=== PATIENT | female | born 1945 | race African-American/Black ===

== ENCOUNTER 2019-07-13 09:40 | Outpatient (CLI) | payer MEDICARE, SELFPAY ==
--- NOTE | ~2019-07-13 | MM_ITS ---
EXAMINATION: MM screening [facility] BI w juliana HISTORY: Screening mammogram TECHNIQUE: Craniocaudal and mediolateral oblique 3-D tomosynthesis images were obtained and synthetic 2-D images were generated. CAD analysis was submitted and interpreted. COMPARISON: 06/04/2018, 05/28/2017, 03/22/2016, 02/17/2015 BREAST PARENCHYMAL COMPOSITION: There are scattered areas of fibroglandular density. FINDINGS: Again noted is an unchanged asymmetry in the posterior third of the inner right breast on t he craniocaudal view, consistent with a benign finding. There is no evidence of suspicious mass, calc ification, or architectural distortion to suggest malignancy in either breast. There has been no susp icious interval change. IMPRESSION: 1. No mammographic evidence of malignancy. 2. Recommend routine screening mammography in one year. BI-RADS Category 2: Benign finding(s). Reviewed, dictated and finalized at location A. [employer]
== END 2019-07-13 09:41 | disposition home or self-care (01) ==
LOC: ANHIMG 09:46
PROVIDERS: PCP Internal Medicine; Visit Provider Obstetrics & Gynecology
DX: Z12.31 Encounter for screening mammogram for malignant neoplasm of breast (principal)
CPT/HCPCS: 77063; 77067

== ENCOUNTER 2019-10-16 12:40 | Outpatient (CLI) | payer MEDICARE, SELFPAY ==
--- NOTE | ~2019-10-16 | CT_ITS ---
EXAMINATION: CT lung screening DATE: 10/16/2019 13:06 INDICATION: Personal history of tobacco dependence, prior smoker with 100 to pack year history TECHNIQUE: Computed tomography (CT) of the chest was performed without intravenous contrast. The dose -length product (DLP) was 79.47 mGy-cm. Automated exposure control and iterative reconstruction techn People and [employer] were employed. COMPARISON: 10/27/2018 FINDINGS: A stable 7 mm nodule is present in the left lower lobe. There is severe emphysema. There is chronic collapse in the medial aspect of the right middle lobe. Mild dependent atelectasis is noted. Calcified right hilar lymph nodes are consistent with old granulomatous disease. There is no pleural effusion or pneumothorax. No pathologically enlarged thoracic lymph nodes are identified. The heart size is normal. The gallbladder is surgically absent. Punctate calcifications in otherwise normal eve earing liver and spleen likely represent healed granulomatous disease. There is mild thoracic spondyl osis. IMPRESSION: 1. Lung-RADS category 2: Benign appearance or behavior. Continue annual screening with noncontrast lo w-dose chest CT in 12 months. Reviewed, dictated and finalized at location A. IMPRESSION: 1. Lung-RADS category 2: Benign appearance or behavior. Continue annual screeni ng with noncontrast low-dose chest CT in 12 months.
== END 2019-10-16 12:41 | disposition home or self-care (01) ==
PROVIDERS: Visit Provider Nurse Practitioner Family
DX: Z12.2 Encounter for screening for malignant neoplasm of respiratory organs (principal); Z87.891 Personal history of nicotine dependence
CPT/HCPCS: G0297

== ENCOUNTER 2019-10-28 13:14 | Outpatient (CLI) | payer MEDICARE, SELFPAY ==
[2019-10-28 13:30] VITALS: O2SAT 87
[2019-10-28 13:32] VITALS: PULSE 88; O2SAT 93
[2019-10-28 13:35] VITALS: O2SAT 87
[2019-10-28 13:38] VITALS: PULSE 99; O2SAT 92
[2019-10-28 13:45] VITALS: PULSE 84; O2SAT 95
--- NOTE | 2019-10-28 15:37 | HOMEO2EVAL ---
Home Oxygen Evaluation RC: Home Oxygen (O2) Evaluation Start: 10/28/19 15:33 Freq: Status: Active Protocol: RPE Activity Type Activity Date Activity User E-Sign Co-Sign Detail Recorded Client Recorded Date Recorded By Document 10/28/19 13:30 MEHDI [id number] 10/28/19 15:37 MEHDI Document 10/28/19 13:32 MEHDI [id number] 10/28/19 15:37 MEHDI Document 10/28/19 13:35 MEHDI [id number] 10/28/19 15:37 MEHDI Document 10/28/19 13:38 MEHDI [email or web address] 10/28/19 15:37 MEHDI Document 10/28/19 13:45 MEHDI [email or web address] 10/28/19 15:37 MEHDI 10/28/19 10/28/19 10/28/19 13:30 13:32 13:35 Home O2 Evaluation Test Phase Resting Resting Exercise Oxygen Delivery Room Air Nasal Cannula Nasal Cannula Oxygen Flow Rate (L/min) 1 1 Pulse Oximetry (90-100 %) 87 L 93 87 L Pulse Rate (60-100 beats/min) 88 Activity Tolerance Rating of Perceived Dyspnea (PD) Ambulation Distance (feet) Home Oxygen Evaluation Comments Treatment Charges O2 Evaluation 10/28/19 10/28/19 13:38 13:45 Home O2 Evaluation Test Phase Exercise Resting Oxygen Delivery Nasal Cannula Nasal Cannula Oxygen Flow Rate (L/min) 2 1 Pulse Oximetry (90-100 %) 92 95 Pulse Rate (60-100 beats/min) 99 84 Activity Tolerance Good Rating of Perceived Dyspnea (PD) +3 Moderate Difficulty, But Can Continue Ambulation Distance (feet) 150 Home Oxygen Evaluation Comments PT WORE FACE SHIELD, COULD TOLERATE FACE MASK Treatment Charges
--- NOTE | 2019-10-28 15:37 | PCRCNOTE ---
HOME O3 EVAL FAXED TO DR RODRIGUEZ OFFICE STAFF [id number]
== END 2019-10-28 13:15 | disposition home or self-care (01) ==
PROVIDERS: Visit Provider Internal Medicine Critical Care Medicine
DX: R09.02 Hypoxemia (principal)
CPT/HCPCS: 94618

== ENCOUNTER 2020-03-12 18:08 | Inpatient (IN) | payer MEDICARE, SELFPAY ==
[2020-03-12] VITALS (17 sets, daily range): BP systolic 99–151; BP diastolic 65–77; PULSE 91–110; RESP 14–30; TEMP 36.3–37; O2SAT 92–100; BMI 26.5
--- NOTE | ~2020-03-12 | XR_ITS ---
XR chest 1V portable DATE: 03/12/2020 19:11 INDICATION: Shortness of breath. Hypertension. Respiratory failure. TECHNIQUE: Portable AP chest on 03/12/2020 1909 hours COMPARISON: 10/16/2019 CT lung screening 10/31/2018 2 view chest FINDINGS: Bilateral hyperinflation and flattening of the diaphragms consistent with COPD. Chronic dis coid atelectasis or scarring at the right lung base. No pulmonary consolidation, pleural effusion, pu lmonary vascular congestion or pneumothorax is detected. Heart size appears within normal limits. Is aortic calcification. There is diffuse osteopenia. IMPRESSION: COPD Discoid atelectasis or scarring at the right lung base Reviewed, dictated and finalized at location A.
--- NOTE | 2020-03-12 18:22 | ECG_ITS ---
Measurements Intervals [place] Rate: 106 P: 62 VA: 143 QRS: 46 QRSD: 84 T: 62 QT: 314 QTc: 419 Interpretive Statements SINUS TACHYCARDIA BASELINE ARTIFACT- I, II, III, AVR, AVL, AVF, V1-V6 ABNORMAL ECG Electronically Signed On 03-13-2020 7:56:51 CDT by Drake Brewster D.O.
[2020-03-12] MEDS: methylPREDNISolone SOD SUCC 125 MG VIAL IV PUSH (18:36)
[2020-03-12 18:40] LABS: Basophils Absolute Auto 0.1 K/mm3 (0.0-0.1); Basophils Percent Auto 0.3 % (0.2-1.2); Eosinophils Absolute Auto 0.1 K/mm3 (0-0.3); Eosinophils Percent Auto 0.6 % (0-4.4); Hematocrit 41.4 % (37.0-47.0); Hemoglobin 13.3 g/dL (12.0-15.0); Immature Granulocyte Absolute 0.08 K/mm3 (0.00-0.031); Immature Granulocyte Percent A 0.3 % (0-0.5); Lymphocytes Absolute Auto 7.06 K/mm3 (0.9-3.2); Lymphocytes Percent Auto 30.1 % (18.3-44.2); Mean Corpuscular HGB Conc 32.1 g/dl (32-36); Mean Corpuscular Volume 90.2 fl (80-100); Monocytes Absolute Auto 1.2 K/mm3 (0.1-0.6); Neutrophils Percent Auto 63.7 % (45.5-73.1); Platelet Count Result 373 k/mm3 (150-375); Red Blood Count 4.59 M/mm3 (4.2-5.4); Red Cell Distribution Width 15.2 % (11.5-14.5); White Blood Count 23.5 K/mm3 (4.5-10.0)
[2020-03-12] MEDS: ALBUTEROL SULFATE NEB 2.5 MG/0.5 ML INH 15 MG INHALATION (18:42)
[2020-03-12] MEDS: IPRATROPIUM BR 0.02% INH SOLN 0.5 MG/2.5 ML VIAL 1.5 MG INHALATION (18:43)
[2020-03-12 18:45] LABS: Alveolar/Arterial O2 Gradient 61.9 mmHg; Base Excess ABG 3.8 mEq/l (+/-2.0); Device NASAL CANNULA; Fractional Inspired Oxygen 28 %; HCO3 ABG 30.7 mEq/l (22.0-26.0); Modified Allen's Test Pass; Oxygen Content ABG 17.3 %vol (16.0-22.0); Oxygen Saturation ABG 93.4 % (95.0-100.0); Oxyhemoglobin 90.5 % THb (90.0-100.0); PCO2 ABG 56.3 mmHg (35.0-45.0); PO2 ABG 71.3 mmHg (80.0-100.0); PO2 FiO2 Ratio Arterial Blood 2.55 %; Site Drawn LEFT RADIAL; Total Hemoglobin 13.6 g/dL (12.0-18.0); pH ABG 7.355 (7.350-7.450)
--- NOTE | 2020-03-12 18:48 | PC.NURSE ---
patient here by EMS with increased dyspnea over the last few days. states she had sudden onset severe shortness of breath tonight while cooking dinner. called 911. see triage notes. SL inserted by EMS. labs drawn and sent. patient on laboratory monitor. placed on 2L NC for ABG's. respiratory at bedside now for 1 hour treatment. meds given as ordered. patient and updated on current treatment plan and expected wait time. side rails up x 2. call light in reach.
[2020-03-12 18:51] LABS: Anion Gap 8 mmol/L (8-16); Blood Urea Nitrogen 12 mg/dL (7-17); Calcium 9.6 mg/dL (8.4-10.2); Carbon Dioxide 37 mmol/L (22-30); Chloride 100 mmol/L (98-107); Estimated CRCL calculation 50 ml/min; Estimated Glomerular Filt Rate > 60; Glucose 153 mg/dL (65-105); Potassium 3.8 mmol/L (3.4-5.0); Sodium 145 mmol/L (137-145)
--- NOTE | 2020-03-12 19:44 | ED.SOB ---
HPI - SOB/Dyspnea General Chief Complaint: Shortness of Breath/Dyspnea Stated Complaint: sob x45 mins Time Seen by Provider: 03/12/20 18:15 History of Present Illness HPI Narrative: Patient is a 74-year-old female who presents ER with shortness of breath. Patient has history of COPD and is oxygen dependent on 2 L nasal cannula. Patient was cooking dinner when she developed sudden onset shortness of breath. She reports this is typical of her COPD exacerbations and that cooking is a trigger. Related Data Home Medications Medication Instructions Recorded Confirmed amlodipine 5 mg tablet 5 mg PO DAILY 05/05/19 10/13/19 atorvastatin 40 mg tablet 40 mg PO DAILY 05/05/19 10/13/19 nitroglycerin 0.4 mg sublingual 0.4 mg SUBLINGUAL Q5M PRN 05/05/19 10/13/19 tablet aspirin 81 mg tablet,delayed 81 mg PO DAILY 05/06/19 10/13/19 release calcium carbonate 600 mg calcium 600 mg PO DAILY 05/06/19 10/13/19 (1,500 mg) tablet levothyroxine 50 mcg tablet 50 mcg PO DAILY 05/06/19 10/13/19 ipratropium 0.5 mg-albuterol 3 mg 3 ml INHALATION Q6H PRN 10/13/19 10/13/19 (2.5 mg base)/3 mL nebulization soln Allergies Allergy/AdvReac Type Severity Reaction Status Date / Time No Known Allergies Allergy Verified 03/12/20 18:45 Review of Systems Review of Systems: All systems reviewed & are unremarkable except as noted in HPI and below Constitutional: Constitutional: Denies chills, Denies fever(s) and Denies weakness ENT: Denies nasal congestion and Denies sore throat Cardiovascular: Cardiovascular: Denies chest pain and Denies radiating jaw, neck or arm pain Respiratory: Respiratory: Denies cough, Reports dyspnea and Reports wheezing Gastrointestinal: Gastrointestinal: Denies abdominal pain, Denies nausea and Denies vomiting [facility] Past Medical History Medical History (Updated 03/12/20 @ 21:13 by Wale Chambers MD) Chronic hypoxemic respiratory failure Elevated lipids H/O vaginal delivery History of heart attack History of tobacco use Hypertension Shortness of Breath Thyroid disease Surgical History Surgical History History of cholecystectomy History of total abdominal hysterectomy and bilateral salpingo-oophorectomy History of tubal ligation Family History Family History Mother Hypertension Sibling Family history of lung cancer Family history of malignant neoplasm of kidney Social History Social History Smoking status: Former smoker Smoking end date: 05/27/18 Alcohol intake: never Exam Narrative: Exam Narrative: GENERAL: Well-appearing, well-nourished, and in no acute distress. HEAD: Normocephalic, atraumatic. ENT: Mucous membranes moist. CHEST: Diminished breath sounds throughout with increased work of breathing and faint scattered wheezing. Very poor air movement. HEART: Tachycardic regular. Normal peripheral pulses. ABDOMEN: Soft, nontender, nondistended. EXTREMITIES: Normal range of motion. No edema. SKIN: Warm, dry, no rash. NEURO: Alert and oriented x3. Course Course Emergency Course: Still with poor air movement despite hour-long nebulizer treatment. Will start a second hour-long nebulizer treatment admit to the hospitalist service. We will place an IV new. IV steroids given. Vital Signs Vital signs: Vital Signs Temperature 98.6 F 03/12/20 18:12 Pulse Rate 100 03/12/20 18:12 Respiratory Rate 30 H 03/12/20 18:12 Blood Pressure 151/65 H 03/12/20 18:12 Pulse Oximetry 99 03/12/20 18:12 Temperature 98.3 F 03/12/20 20:24 Pulse Rate 105 H 03/12/20 20:45 Respiratory Rate 24 H 03/12/20 20:45 Blood Pressure 127/71 03/12/20 20:24 Pulse Oximetry 100 03/12/20 20:24 MDM - SOB/Dyspnea Lab Data Result diagrams: 03/12/20 18:29 03/12/20 18:29 Labs
[2020-03-12] MEDS: ALBUTEROL SULFATE NEB 2.5 MG/0.5 ML INH 15 MG (19:50)
--- NOTE | 2020-03-12 21:02 | ADMGEN ---
This patient, Laxmi Colon, was admitted to IMU Room 207-01. Patient/family oriented to hospital policies and general routines including ID bracelet, bed and alarms, visiting hours, pain management, procedures, bathroom and other care routines, personal items, smoking policy, room service/diet, and visiting hours. Information on how to activate the Rapid Response Team has been discussed. Patient/Family are encouraged to report perceived risks to care and to ask questions if they do not understand what they are told or what they should do.
--- NOTE | 2020-03-12 21:05 | PM.IMHP ---
H&P: HPI History of Present Illness Date/Time: 03/12/20 21:05 Chief complaint: copd exacerbation Narrative: This is a 74 year old female with known COPD on chronic 2L of home oxygen who presented to the hospital with increased shortness of breath and wheezing over the past few days. Tonight while she was cooking dinner she developed severe shortness of breath. She reports this is typical of her COPD exacerbations and that cooking is a trigger. She denies any fevers, chills, coughing, chest pain, headache, vomiting, abdominal pain, dysuria, hematuria, rectal bleeding, or LE swelling. She does report nausea and diarrhea but states that she has chronic diarrhea. Routine labs tonight demonstrated a leukocytosis of 23,500. CXR demonstrated COPD but no significant infiltrate or consolidation. She has been treated with back to back hour long beta agonist nebs and steroid therapy. No other complaints at this time. Review of Systems Review of Systems: All systems reviewed & are unremarkable except as noted in HPI and below PMFSH Past Medical History Medical History Chronic hypoxemic respiratory failure Elevated lipids H/O vaginal delivery History of heart attack History of tobacco use Hypertension Shortness of Breath Thyroid disease Surgical History Surgical History History of cholecystectomy History of total abdominal hysterectomy and bilateral salpingo-oophorectomy History of tubal ligation Family History Family History Mother Hypertension Sibling Family history of lung cancer Family history of malignant neoplasm of kidney Social History Social History Smoking status: Former smoker Smoking end date: 10/27/18 Alcohol intake: never Substance use: never Gender identity (if verbalized by the patient): Female Spiritual care concerns: No Meds Home Medications and Allergies Home Medications Medication Instructions Recorded Confirmed Type amlodipine 5 mg tablet 5 mg PO DAILY 05/05/19 03/12/20 History atorvastatin 40 mg tablet 40 mg PO DAILY 05/05/19 03/12/20 History nitroglycerin 0.4 mg sublingual 0.4 mg SUBLINGUAL Q5M PRN 05/05/19 03/12/20 History tablet aspirin 81 mg tablet,delayed 81 mg PO DAILY 05/06/19 03/12/20 History release calcium carbonate 600 mg calcium 600 mg PO DAILY 05/06/19 03/12/20 History (1,500 mg) tablet levothyroxine 50 mcg tablet 50 mcg PO DAILY 05/06/19 03/12/20 History ipratropium 0.5 mg-albuterol 3 mg 3 ml INHALATION Q6H PRN 10/13/19 03/12/20 History (2.5 mg base)/3 mL nebulization soln budesonide-formoterol HFA 160 2 puff INHALATION Q12H #10.2 gm 12/01/19 03/12/20 Rx mcg-4.5 mcg/actuation aerosol inhaler tiotropium bromide 2.5 2 puff INHALATION DAILY #4 gm 12/01/19 03/12/20 Rx mcg/actuation mist for inhalation dextromethorphan-guaifenesin 10 ml PO Q4H PRN #237 ml 03/15/20 Rx prednisone 40 mg PO DAILY@0800 #10 tablet 03/15/20 Rx Allergies Allergy/AdvReac Type Severity Reaction Status Date / Time No Known Allergies Allergy Verified 03/14/20 11:29 Vital Signs Vital Signs - 24 hr 03/12/20 18:12 03/12/20 18:19 03/12/20 18:20 Temperature 37.0 C Pulse Rate 100 106 H Respiratory Rate 30 H 21 H Blood Pressure 151/65 H Pulse Oximetry 99 100 99 03/12/20 18:30 03/12/20 18:31 03/12/20 18:46 Temperature Pulse Rate 108 H 110 H 102 H Respiratory Rate 28 H 27 H 22 H Blood Pressure 147/77 H Pulse Oximetry 98 100 03/12/20 18:47 03/12/20 19:15 03/12/20 19:37 Temperature Pulse Rate 102 H 100 102 H Respiratory Rate 22 H 22 H 24 H Blood Pressure 132/69 Pulse Oximetry 100 03/12/20 19:50 03/12/20 20:24 03/12/20 20:45 Temperature 36.8 C Pulse Rate 101 H 100 105 H Respiratory Rate 22 H 14
[2020-03-12 22:04] LABS: Lactic Acid Reflex 2.4 mmol/L (0.7-2.1)
[2020-03-12 22:18] LABS: Hemoglobin A1C 5.9 % (<5.7)
[2020-03-13] VITALS (20 sets, daily range): BP systolic 87–137; BP diastolic 45–62; PULSE 77–97; RESP 18–30; TEMP 36–36.8; O2SAT 95–100
[2020-03-13] MEDS: methylPREDNISolone SOD SUCC 125 MG VIAL 60 MG IV PUSH ×4 (00:46→17:55)
[2020-03-13 00:51] LABS: Reflex Lactic Acid Yes or No Add Lactic
[2020-03-13 02:03] LABS: Lactic Acid Reflex 2.7 mmol/L (0.7-2.1)
[2020-03-13] MEDS: ALBUTEROL SULFATE NEB 2.5 MG/0.5 ML INH 5 MG INHALATION ×4 (02:08→20:49)
[2020-03-13] MEDS: LEVOTHYROXINE SODIUM 50 MCG TABLET PO (05:31)
[2020-03-13 05:36] LABS: Basophils Percent Auto 0.1 % (0.2-1.2); Hematocrit 36.7 % (37.0-47.0); Hemoglobin 11.6 g/dL (12.0-15.0); Immature Granulocyte Absolute 0.07 K/mm3 (0.00-0.031); Immature Granulocyte Percent A 0.5 % (0-0.5); Lymphocytes Absolute Auto 0.58 K/mm3 (0.9-3.2); Lymphocytes Percent Auto 3.8 % (18.3-44.2); Mean Corpuscular HGB Conc 31.6 g/dl (32-36); Mean Corpuscular Hemoglobin 28.6 pg (26-34); Mean Corpuscular Volume 90.4 fl (80-100); Mean Platelet Volume 11.2 fl (7.4-10.4); Monocytes Absolute Auto 0.1 K/mm3 (0.1-0.6); Monocytes Percent Auto 0.9 % (2.6-8.5); Neutrophils Absolute Auto 14.4 K/mm3 (1.3-6.7); Neutrophils Percent Auto 94.7 % (45.5-73.1); Platelet Count Result 317 k/mm3 (150-375); Red Blood Count 4.06 M/mm3 (4.2-5.4); Red Cell Distribution Width 15.1 % (11.5-14.5); White Blood Count 15.2 K/mm3 (4.5-10.0)
[2020-03-13 05:47] LABS: Anion Gap 10 mmol/L (8-16); Blood Urea Nitrogen 15 mg/dL (7-17); Carbon Dioxide 29 mmol/L (22-30); Chloride 103 mmol/L (98-107); Estimated CRCL calculation 42 ml/min; Estimated Glomerular Filt Rate > 60; Glucose 211 mg/dL (65-105); Potassium 3.7 mmol/L (3.4-5.0); Sodium 142 mmol/L (137-145)
[2020-03-13 07:02] LABS: Influenza Control Positive
[2020-03-13] MEDS: ATORVASTATIN 40 MG TABLET PO (08:19)
[2020-03-13] MEDS: amLODIPine BESYLATE 5 MG TABLET PO (08:19)
[2020-03-13] MEDS: CALCIUM CARBONATE (OSCAL) 500 MG TABLET PO (08:20)
[2020-03-13] MEDS: ASPIRIN 81 MG ENTERIC TABLET PO (08:37)
[2020-03-13] MEDS: ALPRAZolam (*CRX) 0.25 MG TABLET PO ×2 (13:58→21:05)
--- NOTE | 2020-03-13 16:25 | PM.IMPN ---
Progress Note: A&P Assessment and Plan (1) Acute and chronic respiratory failure: Qualifiers: Respiratory failure complication: hypoxia Qualified Code(s): J96.21 - Acute and chronic respiratory failure with hypoxia Code(s): J96.20 - Acute and chronic respiratory failure, unspecified whether with hypoxia or hypercapnia Status: Acute Assessment and Plan: Admit to IMU, telemetry, continuous pulse oximetry, Oxygen supplementation as needed to maintain pulse oximetry >92%, Continue treatment for COPD 03/13/20 16:25 patient is 74 year female with history of chronic respiratory failure secondary to COPD on home oxygen on 2 L patient states last 2 days her symptoms were getting progressively worse shortness of breath however today while cooking her symptom got worse and difficulty breathing EMS was called patient was brought to the emergency department further evaluation patient is being treated for exacerbation of COPD it seems her symptoms were triggered by fumes and smoke from cooking, patient being treated with Solu-Medrol updraft and antibiotics will add Pulmicort, will continue to monitor patient the PT OT evaluate the patient and further recommendation to follow, patient states feeling much better compared to when she arrived denies any chest pain shortness of breath palpitation fever or chills, there is a concern patient may have sepsis as patient tachycardia, tachypnea, leukocytosis, lactic acidosis, however chest x-ray does not show any infiltrates, continue azithromycin will follow-up on blood culture (2) COPD exacerbation: Code(s): J44.1 - Chronic obstructive pulmonary disease with (acute) exacerbation Status: Acute Assessment and Plan: COPD exacerbation of greater severity. We will cover with Azithromycin IV given that she is also septic and has significant leukocytosis. Continue bronchodilators and steroid therapy. (3) Leukocytosis: Qualifiers: Leukocytosis type: unspecified Qualified Code(s): D72.829 - Elevated white blood cell count, unspecified Code(s): D72.829 - Elevated white blood cell count, unspecified Status: Acute Assessment and Plan: The patient has not been on steroids recently. This may be due to COPD exacerbation vs. developing pneumonia. (4) Sepsis: Qualifiers: Sepsis type: sepsis due to unspecified organism Sepsis acute organ dysfunction status: unspecified Qualified Code(s): A41.9 - Sepsis, unspecified organism Code(s): A41.9 - Sepsis, unspecified organism Status: Acute Assessment and Plan: w/ tachycardia, leukocytosis. Source of sepsis may be pulmonary. Check Lactic acid w/ reflex that hasn't been done yet. Check blood and sputum cultures now. (5) Hypertension: Qualifiers: Hypertension type: unspecified Qualified Code(s): I10 - Essential (primary) hypertension Code(s): I10 - Essential (primary) hypertension Status: Acute Assessment and Plan: stable. Monitor blood pressure. Resume home antihypertensives in am. (6) Elevated lipids: Code(s): E78.5 - Hyperlipidemia, unspecified Status: Acute Assessment and Plan: Continue statin therapy. (7) Thyroid disease: Code(s): E07.9 - Disorder of thyroid, unspecified Status: Acute Assessment and Plan: Continue levothyroxine PO. (8) Abnormal glucose: Code(s): R73.09 - Other abnormal glucose Status: Acute Assessment and Plan: r/o diabetes mellitus - check HgbA1c in am. Additional Plan Date of service was 03/12/2020 at 8 pm. Subjective Date/time seen: 03/13/20 16:25 patient is 74 year female with history of chronic respiratory failure secondary to COPD on home oxygen on 2 L patient states last 2 days her symptoms were getting progressively worse shortness of breath however today while cooking her symptom got worse and difficu
--- NOTE | 2020-03-13 18:10 | PC.NURSE ---
Addendum entered by Leydi Bartlett RN 03/13/20 18:14: Pt transferred at 1720 Original Note: This patient, Laxmi Colon, was transferred to [[id number] ] on 03/13/20 at 1810. Personal belongings sent with patient. Report given to [Wilfrido ]. Appropriate documentation sent with patient.
[2020-03-13] MEDS: BUDESONIDE RESPULE NEB 0.5 MG/2 ML AMP INHALATION (20:49)
[2020-03-14] VITALS (18 sets, daily range): BP systolic 100–113; BP diastolic 52–59; PULSE 70–89; RESP 20–24; TEMP 36.2–36.8; O2SAT 95–99
[2020-03-14] MEDS: methylPREDNISolone SOD SUCC 125 MG VIAL 60 MG IV PUSH ×3 (00:07→12:03)
[2020-03-14] MEDS: ALBUTEROL SULFATE NEB 2.5 MG/0.5 ML INH 5 MG INHALATION ×2 (03:14→08:27)
[2020-03-14] MEDS: LEVOTHYROXINE SODIUM 50 MCG TABLET PO (05:44)
[2020-03-14 06:33] LABS: Hematocrit 37.3 % (37.0-47.0); Hemoglobin 12.2 g/dL (12.0-15.0); Mean Corpuscular HGB Conc 32.7 g/dl (32-36); Mean Corpuscular Hemoglobin 29.6 pg (26-34); Mean Corpuscular Volume 90.5 fl (80-100); Mean Platelet Volume 11.3 fl (7.4-10.4); Platelet Count Result 345 k/mm3 (150-375); Red Blood Count 4.12 M/mm3 (4.2-5.4); Red Cell Distribution Width 15.8 % (11.5-14.5); White Blood Count 30.9 K/mm3 (4.5-10.0)
[2020-03-14 06:47] LABS: Anion Gap 6 mmol/L (8-16); Blood Urea Nitrogen 22 mg/dL (7-17); Calcium 9.3 mg/dL (8.4-10.2); Carbon Dioxide 33 mmol/L (22-30); Chloride 102 mmol/L (98-107); Estimated CRCL calculation 42 ml/min; Estimated Glomerular Filt Rate > 60; Glucose 200 mg/dL (65-105); Potassium 4.4 mmol/L (3.4-5.0); Sodium 141 mmol/L (137-145)
[2020-03-14] MEDS: BUDESONIDE RESPULE NEB 0.5 MG/2 ML AMP INHALATION (08:27)
[2020-03-14] MEDS: amLODIPine BESYLATE 5 MG TABLET PO (09:00)
[2020-03-14] MEDS: CALCIUM CARBONATE (OSCAL) 500 MG TABLET PO (09:00)
[2020-03-14] MEDS: ATORVASTATIN 40 MG TABLET PO (09:00)
[2020-03-14] MEDS: ASPIRIN 81 MG ENTERIC TABLET PO (09:00)
--- NOTE | 2020-03-14 14:05 | PM.CNPUL ---
Assessment and Plan Assessment and plan (1) COPD exacerbation: Code(s): J44.1 - Chronic obstructive pulmonary disease with (acute) exacerbation Status: Acute Assessment and Plan: Feeling better since admission but still short of breath with minimal exertion. - switch to prednisone 40 mg daily for 4 more days - resume Symbicort and Spiriva upon discharge - switch Azithromycin to PO - PT/OT - will order outpatient pulmonary rehab. - can discharge in 1-2 days. History of Present Illness History of Present Illness Consult date: 03/14/20 Chief complaint: copd exacerbation Narrative: 74 y/o female with history of severe COPD with Asthma component presents with an acute COPD exacerbation after being exposed to cooking fumes. This is a common trigger for her. She used her Albuterol Nebulizer twice without improvement and then called EMS. She has not required NIV. She's on home O2 2 liters and uses Symbicort and Spiriva faithfully but still has difficulty doing her daily activities. She denies infectious symptoms and does not have a productive cough Review of Systems Review of Systems: All systems reviewed & are unremarkable except as noted in HPI and below PMFSH Past Medical History Medical History (Updated 03/12/20 @ 21:25 by Raj Solis MD) Chronic hypoxemic respiratory failure Elevated lipids H/O vaginal delivery History of heart attack History of tobacco use Hypertension Shortness of Breath Thyroid disease Surgical History Surgical History History of cholecystectomy History of total abdominal hysterectomy and bilateral salpingo-oophorectomy History of tubal ligation Family History Family History Mother Hypertension Sibling Family history of lung cancer Family history of malignant neoplasm of kidney Social History Social History Smoking status: Former smoker Smoking end date: 10/27/18 Alcohol intake: never Substance use: never Gender identity (if verbalized by the patient): Female Spiritual care concerns: No Meds Home Medications and Allergies Home Medications Medication Instructions Recorded Confirmed Type amlodipine 5 mg tablet 5 mg PO DAILY 05/05/19 03/12/20 History atorvastatin 40 mg tablet 40 mg PO DAILY 05/05/19 03/12/20 History nitroglycerin 0.4 mg sublingual 0.4 mg SUBLINGUAL Q5M PRN 05/05/19 03/12/20 History tablet aspirin 81 mg tablet,delayed 81 mg PO DAILY 05/06/19 03/12/20 History release calcium carbonate 600 mg calcium 600 mg PO DAILY 05/06/19 03/12/20 History (1,500 mg) tablet levothyroxine 50 mcg tablet 50 mcg PO DAILY 05/06/19 03/12/20 History ipratropium 0.5 mg-albuterol 3 mg 3 ml INHALATION Q6H PRN 10/13/19 03/12/20 History (2.5 mg base)/3 mL nebulization soln budesonide-formoterol HFA 160 2 puff INHALATION Q12H #10.2 gm 12/01/19 03/12/20 Rx mcg-4.5 mcg/actuation aerosol inhaler tiotropium bromide 2.5 2 puff INHALATION DAILY #4 gm 12/01/19 03/12/20 Rx mcg/actuation mist for inhalation Allergies Allergy/AdvReac Type Severity Reaction Status Date / Time No Known Allergies Allergy Verified 03/14/20 11:29 Vital Signs Vital Signs - 24 hr 03/13/20 16:00 03/13/20 18:00 03/13/20 20:00 Temperature 36.3 C L 36.6 C 36.3 C L Pulse Rate 88 85 83 Respiratory Rate 24 H 22 H 20 Blood Pressure 137/62 131/53 L 131/58 L Pulse Oximetry 97 97 97 03/13/20 20:49 03/13/20 20:59 03/14/20 00:00 Temperature 36.7 C Pulse Rate 86 85 74 Respiratory Rate 24 H 24 H 20 Blood Pressure 106/53 L Pulse Oximetry 95 98 03/14/20 03:14 03/14/20 03:22 03/14/20 04:00 Temperature 36.8 C Pulse Rate 70 76 78 Respiratory Rate 24 H 24 H 20 Blood Pressure 100/59 L Pulse Oximetry 99 03/14/20 08:00 03/14/20 08:29 03/14/20 08:42 Temperature Pulse Rate
[2020-03-14] MEDS: ALBUTEROL SULFATE NEB 2.5 MG/0.5 ML INH INHALATION ×2 (14:10→20:13)
[2020-03-14] MEDS: IPRATROPIUM BR 0.02% INH SOLN 0.5 MG/2.5 ML VIAL INHALATION ×2 (14:10→20:13)
--- NOTE | 2020-03-14 15:18 | PM.IMPN ---
Progress Note: A&P Assessment and Plan (1) Acute and chronic respiratory failure: Qualifiers: Respiratory failure complication: hypoxia Qualified Code(s): J96.21 - Acute and chronic respiratory failure with hypoxia Code(s): J96.20 - Acute and chronic respiratory failure, unspecified whether with hypoxia or hypercapnia Status: Acute Assessment and Plan: Admit to IMU, telemetry, continuous pulse oximetry, Oxygen supplementation as needed to maintain pulse oximetry >92%, Continue treatment for COPD 03/14/20 15:18 patient is 74 year female with history of chronic respiratory failure secondary to COPD on home oxygen on 2 L patient states last 2 days her symptoms were getting progressively worse shortness of breath however today while cooking her symptom got worse and difficulty breathing EMS was called patient was brought to the emergency department further evaluation patient is being treated for exacerbation of COPD it seems her symptoms were triggered by fumes and smoke from cooking, patient being treated with Solu-Medrol updraft and antibiotics will add Pulmicort, will continue to monitor patient the PT OT evaluate the patient and further recommendation to follow, patient states feeling much better compared to when she arrived denies any chest pain shortness of breath palpitation fever or chills, there is a concern patient may have sepsis as patient tachycardia, tachypnea, leukocytosis, lactic acidosis, however chest x-ray does not show any infiltrates, continue azithromycin will follow-up on blood culture 03/14 Today patient states patient little better compared to yesterday still short of breath denies any fever or chills patient was seen [facility] and taper Solu-Medrol to oral prednisone 40 mg q.day and switched azithromycin to p.o. blood culture so far no growth, will continue present management will have a PT OT evaluate the patient and further recommendation to follow. (2) COPD exacerbation: Code(s): J44.1 - Chronic obstructive pulmonary disease with (acute) exacerbation Status: Acute Assessment and Plan: COPD exacerbation of greater severity. We will cover with Azithromycin IV given that she is also septic and has significant leukocytosis. Continue bronchodilators and steroid therapy. (3) Leukocytosis: Qualifiers: Leukocytosis type: unspecified Qualified Code(s): D72.829 - Elevated white blood cell count, unspecified Code(s): D72.829 - Elevated white blood cell count, unspecified Status: Acute Assessment and Plan: The patient has not been on steroids recently. This may be due to COPD exacerbation vs. developing pneumonia. (4) Sepsis: Qualifiers: Sepsis type: sepsis due to unspecified organism Sepsis acute organ dysfunction status: unspecified Qualified Code(s): A41.9 - Sepsis, unspecified organism Code(s): A41.9 - Sepsis, unspecified organism Status: Acute Assessment and Plan: w/ tachycardia, leukocytosis. Source of sepsis may be pulmonary. Check Lactic acid w/ reflex that hasn't been done yet. Check blood and sputum cultures now. (5) Hypertension: Qualifiers: Hypertension type: unspecified Qualified Code(s): I10 - Essential (primary) hypertension Code(s): I10 - Essential (primary) hypertension Status: Acute Assessment and Plan: stable. Monitor blood pressure. Resume home antihypertensives in am. (6) Elevated lipids: Code(s): E78.5 - Hyperlipidemia, unspecified Status: Acute Assessment and Plan: Continue statin therapy. (7) Thyroid disease: Code(s): E07.9 - Disorder of thyroid, unspecified Status: Acute Assessment and Plan: Continue levothyroxine PO. (8) Abnormal glucose: Code(s): R73.09 - Other abnormal glucose Status: Acute Assessment and Plan: r/o diabetes mellitus - check HgbA1c in am. [place]
[2020-03-15] VITALS (10 sets, daily range): BP systolic 101–120; BP diastolic 56–59; PULSE 59–78; RESP 16–20; TEMP 36.4; O2SAT 97–98
[2020-03-15] MEDS: IPRATROPIUM BR 0.02% INH SOLN 0.5 MG/2.5 ML VIAL INHALATION ×2 (01:41→07:35)
[2020-03-15] MEDS: ALBUTEROL SULFATE NEB 2.5 MG/0.5 ML INH INHALATION ×2 (01:41→07:34)
[2020-03-15 06:04] LABS: Hematocrit 34.7 % (37.0-47.0); Hemoglobin 11.3 g/dL (12.0-15.0); Mean Corpuscular HGB Conc 32.6 g/dl (32-36); Mean Platelet Volume 11.4 fl (7.4-10.4); Platelet Count Result 331 k/mm3 (150-375); Red Cell Distribution Width 15.7 % (11.5-14.5); White Blood Count 25.9 K/mm3 (4.5-10.0)
[2020-03-15] MEDS: LEVOTHYROXINE SODIUM 50 MCG TABLET PO (06:14)
[2020-03-15 06:20] LABS: Anion Gap 7 mmol/L (8-16); Blood Urea Nitrogen 25 mg/dL (7-17); Calcium 9.4 mg/dL (8.4-10.2); Carbon Dioxide 36 mmol/L (22-30); Chloride 102 mmol/L (98-107); Estimated CRCL calculation 43 ml/min; Estimated Glomerular Filt Rate > 60; Glucose 118 mg/dL (65-105); Potassium 4.6 mmol/L (3.4-5.0); Sodium 145 mmol/L (137-145)
[2020-03-15] MEDS: ATORVASTATIN 40 MG TABLET PO (07:50)
[2020-03-15] MEDS: CALCIUM CARBONATE (OSCAL) 500 MG TABLET PO (07:50)
[2020-03-15] MEDS: predniSONE 20 MG TABLET 40 MG PO (07:50)
[2020-03-15] MEDS: ASPIRIN 81 MG ENTERIC TABLET PO (07:50)
--- NOTE | 2020-03-15 10:09 | PM.PNPUL ---
Progress Note: A&P Assessment and Plan (1) COPD exacerbation: Code(s): J44.1 - Chronic obstructive pulmonary disease with (acute) exacerbation Status: Acute Assessment and Plan: - Can discharge home from pulmonary point of view - resume Symbicort 160/4.5 mcg 2 puffs bid via chamber device - resume Spiriva Respimat 2.5 mcg 2 puffs Qam - continue oral prednisone for 3-4 more days - continue home oxygen as previously prescribed - I've ordered outpatient pulmonary rehab for her - f/u with us in pulmonary clinic in 2-4 weeks - avoid exposure to second hand smoke and strong cooking fumes ( her son smokes at home) Time Spent With Patient Time with patient: 15 - 25 minutes Subjective Date/time seen: 03/15/20 10:09 Interval history: She is feeling better. Stable, vitals, breathing is better but still weak Review of Systems Review of Systems: All systems reviewed & are unremarkable except as noted in HPI and below Exam Const: General: cooperative, healthy appearing, comfortable, no acute distress, well developed, alert, awake and Physically active Nutritional Appearance: average body habitus Limitations: no limitations HENMT: Head: normal to inspection, normocephalic and atraumatic Eyes: General: appearance normal, both eyes and all related structures Neck: Neck: trachea midline and supple Resp: Auscultation: wheezes and diminished lung sounds Cardio: Jugular venous distension: no JVD Rate: regular rate Rhythm: regular rhythm Heart sounds: S1 normal heart sound present and S2 normal heart sound present GI: Inspection: normal to inspection Auscultation: normal bowel sounds Neuro: Cognition (Neuro): normal cognition Speech: normal speech Extrem: General: normal to inspection and no clubbing, cyanosis or edema Psych: Appearance: grossly normal and well kempt Mental Status: mental status grossly normal Objective Data Vital Signs Vital Signs: Vital Signs - 24 hr 03/14/20 12:00 03/14/20 14:00 03/14/20 14:12 Temperature 36.2 C L Pulse Rate 83 76 76 Respiratory Rate 20 20 Blood Pressure 104/52 L Pulse Oximetry 96 03/14/20 14:21 03/14/20 16:00 03/14/20 20:00 Temperature Pulse Rate 76 82 76 Respiratory Rate 20 Blood Pressure Pulse Oximetry 03/14/20 20:14 03/14/20 20:15 03/14/20 20:23 Temperature Pulse Rate 76 78 78 Respiratory Rate 20 20 Blood Pressure Pulse Oximetry 95 03/14/20 22:00 03/15/20 00:00 03/15/20 01:41 Temperature 36.7 C Pulse Rate 80 72 72 Respiratory Rate 20 20 Blood Pressure 101/55 L Pulse Oximetry 95 03/15/20 01:51 03/15/20 04:00 03/15/20 06:00 Temperature 36.4 C Pulse Rate 78 59 L 69 Respiratory Rate 20 20 Blood Pressure 101/56 L Pulse Oximetry 98 03/15/20 07:35 03/15/20 07:45 03/15/20 07:52 Temperature Pulse Rate 73 74 Respiratory Rate 16 16 Blood Pressure 120/59 L Pulse Oximetry 97 03/15/20 08:00 Temperature Pulse Rate 73 Respiratory Rate Blood Pressure Pulse Oximetry Intake/Output Intake/Output: Intake & Output 03/12/20 03/13/20 03/14/20 03/15/20 23:59 23:59 23:59 23:59 Intake Total 250 1630 1630 560 Output Total 1950 Balance 250 -320 1630 560 Meds/Results Medications: Active Medications Generic Name Dose Route Start Last Admin Trade Name Freq PRN Reason Stop Dose Admin Acetaminophen 650 mg 03/12/20 20:11 Acetaminophen 325 Mg Tablet PO Q4H PRN Mild Pain (1-3) or Fever Hydrocodone Bitart/Acetaminophen 1 tab 03/12/20 20:11 Hydrocodone/Acetaminophen (*Crx) 5-325 Mg Tablet PO Q4H PRN Pain Rated 4-6 Albuterol 2.5 mg 03/14/20 14:00 03/15/20 07:34 Albuterol Sulfate Neb 2.5 Mg/0.5 Ml Inh INHALATION 2.5 mg Q6HRT BARBARA Administration Alprazolam 0.25 mg 03/13/20 13:50 03/13/20 21:05 Alprazolam (*Crx) 0.25 Mg Tablet PO 0.25 mg Q8HR PRN Administration Anxiety Amlodipine Besylate 5 mg 03/13/20 09:00
--- NOTE | 2020-03-15 11:31 | PM.DS ---
DS: Admitting Diagnosis Admitting Diagnosis Admitting Diagnosis: copd exacerbation DS: Discharge Diagnosis Discharge Diagnosis (1) Acute and chronic respiratory failure: Qualifiers: Respiratory failure complication: hypoxia Qualified Code(s): J96.21 - Acute and chronic respiratory failure with hypoxia Code(s): J96.20 - Acute and chronic respiratory failure, unspecified whether with hypoxia or hypercapnia Status: Acute Assessment and Plan: Admit to IMU, telemetry, continuous pulse oximetry, Oxygen supplementation as needed to maintain pulse oximetry >92%, Continue treatment for COPD (2) COPD exacerbation: Code(s): J44.1 - Chronic obstructive pulmonary disease with (acute) exacerbation Status: Acute Assessment and Plan: COPD exacerbation of greater severity. We will cover with Azithromycin IV given that she is also septic and has significant leukocytosis. Continue bronchodilators and steroid therapy. (3) Leukocytosis: Qualifiers: Leukocytosis type: unspecified Qualified Code(s): D72.829 - Elevated white blood cell count, unspecified Code(s): D72.829 - Elevated white blood cell count, unspecified Status: Acute Assessment and Plan: The patient has not been on steroids recently. This may be due to COPD exacerbation vs. developing pneumonia. (4) Sepsis: Qualifiers: Sepsis acute organ dysfunction status: unspecified Sepsis type: sepsis due to unspecified organism Qualified Code(s): A41.9 - Sepsis, unspecified organism Code(s): A41.9 - Sepsis, unspecified organism Status: Acute Assessment and Plan: w/ tachycardia, leukocytosis. Source of sepsis may be pulmonary. Check Lactic acid w/ reflex that hasn't been done yet. Check blood and sputum cultures now. (5) Hypertension: Qualifiers: Hypertension type: unspecified Qualified Code(s): I10 - Essential (primary) hypertension Code(s): I10 - Essential (primary) hypertension Status: Acute Assessment and Plan: stable. Monitor blood pressure. Resume home antihypertensives in am. (6) Elevated lipids: Code(s): E78.5 - Hyperlipidemia, unspecified Status: Acute Assessment and Plan: Continue statin therapy. (7) Thyroid disease: Code(s): E07.9 - Disorder of thyroid, unspecified Status: Acute Assessment and Plan: Continue levothyroxine PO. (8) Abnormal glucose: Code(s): R73.09 - Other abnormal glucose Status: Acute Assessment and Plan: r/o diabetes mellitus - check HgbA1c in am. DS: Summary Hospital Course Reason for hospitalization: Chief complaint: copd exacerbation Narrative: This is a 74 year old female with known COPD on chronic 2L of home oxygen who presented to the hospital with increased shortness of breath and wheezing over the past few days. Tonight while she was cooking dinner she developed severe shortness of breath. She reports this is typical of her COPD exacerbations and that cooking is a trigger. She denies any fevers, chills, coughing, chest pain, headache, vomiting, abdominal pain, dysuria, hematuria, rectal bleeding, or LE swelling. She does report nausea and diarrhea but states that she has chronic diarrhea. Routine labs tonight demonstrated a leukocytosis of 23,500. CXR demonstrated COPD but no significant infiltrate or consolidation. She has been treated with back to back hour long beta agonist nebs and steroid therapy. No other complaints at this time. Hospital Course: patient is 74 year female with history of chronic respiratory failure secondary to COPD on home oxygen on 2 L patient states last 2 days her symptoms were getting progressively worse shortness of breath however today while cooking her symptom got worse and difficulty breathing EMS was called patient was brought to the emergency department further evaluation patient is
== END 2020-03-15 12:37 | disposition home or self-care (01) | DRG 871 ==
LOC: ANHED 20:31 → ANHIMU 20:50 → ANH3MEDSUR 03-13 17:34
PROVIDERS: Admitting Provider Family Medicine; Emergency Provider Emergency Medicine; PCP Internal Medicine; Visit Provider Family Medicine
DX: A41.9 Sepsis, unspecified organism (principal); J96.21 Acute and chronic respiratory failure with hypoxia; J44.1 Chronic obstructive pulmonary disease with (acute) exacerbation; E78.5 Hyperlipidemia, unspecified; D72.829 Elevated white blood cell count, unspecified; E07.9 Disorder of thyroid, unspecified; I10 Essential (primary) hypertension; R73.09 Other abnormal glucose; Z99.81 Dependence on supplemental oxygen; I25.2 Old myocardial infarction; Z87.891 Personal history of nicotine dependence; Z90.49 Acquired absence of other specified parts of digestive tract; Z90.710 Acquired absence of both cervix and uterus
CPT/HCPCS: 36415; 36600; 71045; 80048; 82805; 83036; 83605; 83735; 85025; 85027; 87040; 87804; 93005; 94640; 96365; 96366; 96375; 96376; 97161; 97165; 99285; A9270; G0378; J0456; J2930; J7512

== ENCOUNTER 2020-04-05 14:09 | Outpatient (CLI) | payer MEDICARE, SELFPAY ==
--- NOTE | 2020-04-10 12:08 | WPDSIXMINUTE ---
Six Minute Walk Six Minute Walk: The patients O2 sats started at 94% and dropped as low as 92% Total walk distance not reported conclusion: This patient does not qualify for home oxygen therapy
== END 2020-04-05 14:10 | disposition home or self-care (01) ==
LOC: ANHPFT 14:10
PROVIDERS: PCP Internal Medicine; Visit Provider Internal Medicine
DX: J44.9 Chronic obstructive pulmonary disease, unspecified (principal)
CPT/HCPCS: 94618

== ENCOUNTER 2020-04-29 13:30 | Outpatient (RCR) | payer MEDICARE, SELFPAY ==
[2020-04-07 12:27] VITALS: PULSE 76
--- NOTE | 2020-04-29 16:21 | PCCPR ---
Pt would like to be kept on hold status through suspension of pulmonary services.
--- NOTE | 2020-06-28 11:17 | PCCPR ---
pt plans to return to pul rehab 07/12/20 at 1100 class
--- NOTE | 2020-07-11 15:01 | PCCPR ---
Laxmi called last week and request to return July 26 due to extreme cold weather during the end of June.
== END 2020-04-29 23:59 | disposition home or self-care (01) ==
LOC: ANHCPREHAB 13:30
PROVIDERS: PCP Internal Medicine; Visit Provider Internal Medicine
DX: J44.9 Chronic obstructive pulmonary disease, unspecified (principal)
CPT/HCPCS: 97150; G0424

== ENCOUNTER 2020-10-13 14:09 | Outpatient (CLI) | payer MEDICARE, SELFPAY ==
--- NOTE | ~2020-10-13 | MM_ITS ---
EXAMINATION: MM screening [facility] BI w juliana HISTORY: Screening TECHNIQUE: Craniocaudal and mediolateral oblique 3-D tomosynthesis images were obtained and synthetic 2-D images were generated. CAD analysis was submitted and interpreted. COMPARISON: Comparison to multiple prior studies sequentially, with oldest reviewed study dated 02/25. BREAST PARENCHYMAL COMPOSITION: There are scattered areas of fibroglandular density. FINDINGS: There is no evidence of suspicious mass, calcification, or architectural distortion to sugg est malignancy in either breast. There has been no suspicious interval change. IMPRESSION: 1. No mammographic evidence of malignancy. 2. Recommend routine screening mammography in one year. BI-RADS Category 1: Negative Reviewed, dictated and finalized at location A.
--- NOTE | ~2020-10-13 | DEXA_ITS ---
Bone Density Report Name: Laxmi Colon Age: 74 Sex: Female Ethnicity: Black Date of : 1945 Indication: osteopenia; hysterectomy; Referring Provider: PETE JONES Study: Bone densitometry was performed. Exam Date: October 13, 2020 Accession number: [id number] Bone Density: Region BMD T-score Z-score Classification AP Spine (L1-L4) 0.858 -1.7 -0.1 Osteopenia Femoral Neck (Left) 0.618 -2.1 -0.8 Osteopenia Total Hip (Left) 0.719 -1.8 -0.8 Osteopenia Total Hip Bilateral Avg 0.735 -1.7 -0.7 Osteopenia Femoral Neck (Right) 0.646 -1.8 -0.6 Osteopenia Total Hip (Right) 0.751 -1.6 -0.5 Osteopenia World Health Organization criteria for BMD impression classify patients as: Normal (T-score at or above -1.0), Osteopenia (T-score between -1.0 and -2.5), or Osteoporosis (T-score at or below -2.5). 10-year Fracture Risk(1): Major Osteoporotic Fracture 5.9% Hip Fracture 1.4% Reported Risk Factors: [place] (Black), Neck BMD=0.618, BMI=26.7 (1) FRAX(R) Version 3.08. Fracture probability calculated for an untreated patient. Fracture probability may be lower if the patient has received treatment. Previous Exams: Region Exam Age BMD T-score BMD Change BMD Change Date g/cm2 vs Baseline vs Previous AP Spine(L1-L4) 10/13/2020 74 0.858 -1.7 -0.121(-12.4%) -0.064(-7.0%)* 05/28/2017 71 0.923 -1.1 -0.056(-5.8%)# 0.023(2.6%)* 02/17/2015 69 0.899 -1.3 -0.080(-8.1%)# -0.055(-5.7%)# 01/16/2012 66 0.954 -0.8 -0.025(-2.5%)# -0.029(-3.0%)# 01/05/2010 64 0.984 -0.6 0.005(0.5%) 0.042(4.4%)* 11/21/2007 62 0.942 -1.0 -0.037(-3.8%)* -0.045(-4.5%)* 10/04/2006 60 0.986 -0.6 0.007(0.7%) 0.007(0.7%) 04/27/2004 58 0.979 -0.6 Total Hip(Left) 10/13/2020 74 0.719 -1.8 -0.130(-15.4%) -0.069(-8.7%)* 05/28/2017 71 0.788 -1.3 -0.062(-7.3%)# -0.074(-8.6%)* 02/17/2015 69 0.862 -0.7 0.013(1.5%)# -0.021(-2.4%)# 01/16/2012 66 0.883 -0.5 0.034(4.0%)# 0.041(4.9%)# 01/05/2010 64 0.842 -0.8 -0.007(-0.9%) -0.005(-0.6%) 11/21/2007 62 0.847 -0.8 -0.002(-0.3%) -0.003(-0.3%) 10/04/2006 60 0.850 -0.8 0.001(0.1%) 0.001(0.1%) 04/27/2004 58 0.850 -0.8 Total Hip(Right) 10/13/2020 74 0.751 -1.6 -0.098(-11.5%) -0.052(-6.5%)* 05/28/2017 71 0.804 -1.1 -0.046(-5.4%)# -0.034(-4.1%)* 02/17/2015 69 0.838 -0.9 -0.011(-1.3%)# -0.034(-3.9%)# 01/16/2012 66 0.872 -0.6 0.022(2.6%)# 0.017(2.0%)# 01/05/2010 64 0.854 -0.7 0.005(0.6%) 0.020(2.4%) 11/21/2007 62 0.834 -0.9 -0.015(-1.8%) -0.003(-0.3%) 10/04/2006 60 0.837 -0.9 -0.012(-1.4%)
== END 2020-10-13 14:10 | disposition home or self-care (01) ==
PROVIDERS: PCP Internal Medicine; Visit Provider Obstetrics & Gynecology
DX: Z12.31 Encounter for screening mammogram for malignant neoplasm of breast (principal); Z78.0 Asymptomatic menopausal state; M85.89 Other specified disorders of bone density and structure, multiple sites
CPT/HCPCS: 77063; 77067; 77080

== ENCOUNTER 2020-10-21 11:00 | Outpatient (RCR) | payer MEDICARE, SELFPAY ==
--- NOTE | 2020-08-02 11:35 | PCCPR ---
Absent due to car repair.
--- NOTE | 2020-08-02 11:36 | PCCPR ---
Release recieved to move Bradford's exercise to nonmonitored.
--- NOTE | 2020-09-06 13:49 | PCCPR ---
Charlotte absent today, she called this morning and said that she did not sleep well last night and is just waking up.
== END 2020-10-21 16:30 | disposition home or self-care (01) ==
LOC: ANHCPREHAB 11:00
PROVIDERS: PCP Internal Medicine; Visit Provider Internal Medicine
DX: J44.9 Chronic obstructive pulmonary disease, unspecified (principal)
CPT/HCPCS: 97150; G0424

== ENCOUNTER 2020-11-04 12:33 | Outpatient (CLI) | payer MEDICARE, SELFPAY ==
--- NOTE | 2020-11-14 16:49 | WPDSIXMINUTE ---
Six Minute Walk Procedure Procedure Performed Pulmonary Stress Test (6 min walk) Six Minute Walk This is a 6 minutes walk test. The test was performed and interpreted in accordance with the 2014 ERS/ATS task force guidelines. Findings: The patient's resting oxygen saturation on 3 L NC measured by pulse oximetry was 99% and her heart rate was 73 bpm. Patient ambulated for 160 meters and oxygen saturation remained 98 to 99%. Heart rate at the end of the study was 84 bpm. There are no prior studies for comparison.
== END 2020-11-04 12:34 | disposition home or self-care (01) ==
PROVIDERS: PCP Internal Medicine; Visit Provider Internal Medicine
DX: J44.9 Chronic obstructive pulmonary disease, unspecified (principal)
CPT/HCPCS: 94618

== ENCOUNTER 2020-11-28 21:12 | Inpatient (IN) | payer MEDICARE, SELFPAY ==
[2020-11-28] VITALS (14 sets, daily range): BP systolic 111–132; BP diastolic 46–85; PULSE 92–102; RESP 14–26; TEMP 37.9; O2SAT 97–100
--- NOTE | ~2020-11-28 | XR_ITS ---
EXAMINATION: XR chest 1V portable DATE: 12/03/2020 05:36 INDICATION: Chronic obstructive pulmonary disease exacerbation. Pneumonia. TECHNIQUE: A single frontal view of the chest was obtained. COMPARISON: Chest single view 12/01/2020, chest CT 11/28/2020 FINDINGS: The lungs are hyperexpanded with lucencies, consistent with emphysema. There is mild atelec tasis at the lung bases. A calcified right lung nodule and calcified right hilar lymph nodes are cons istent with old granulomatous disease. No pleural effusion or pneumothorax. The heart size is normal. The endotracheal tube tip is 3.7 cm above the ramirez. The nasogastric tube tip is beyond the inferio r margin of the radiograph, but at least to the stomach. IMPRESSION: 1. Severe emphysema. 2. Stable mild atelectasis at the lung bases. Reviewed, dictated and finalized at location A.
--- NOTE | ~2020-11-28 | XR_ITS ---
EXAMINATION: XR chest PICC line DATE: 12/06/2020 14:40 INDICATION: PICC line placement TECHNIQUE: frontal view of the chest was obtained. COMPARISON: Chest radiograph dated 12/06/2020 FINDINGS: Interval placement of a right upper extremity peripherally inserted central venous catheter (PICC) ti p at the mid superior vena cava. Endotracheal tube tip 4.6 cm above the ramirez. Nasogastric tube ex tends below the left hemidiaphragm with distal tip collimated off the study. Hyperexpansion of lungs with increased lucency and architectural distortion in the upper lung zones c onsistent with emphysema. Opacities in the bilateral lower lung zones. Blunting at the costophrenic a ngles consistent with small bilateral pleural effusions. No pneumothorax. Small calcified nodule in t he right lower lung zone and calcified right hilar lymph nodes consistent with old granulomatous dise ase. The cardiomediastinal silhouette is normal. IMPRESSION: 1. Right upper extremity PICC line tip at the midsuperior vena cava. 2. Emphysema. 3. Small bilateral pleural effusions and associated bibasilar atelectasis, pulmonary edema, pneumonia or some combination thereof. Reviewed, dictated and finalized at location A. IMPRESSION: 1. Right upper extremity PICC line tip at the midsuperior vena cava. 2. Emphysema. 3. Small bilateral pleural effusions and associated bibasilar atelectasis, pulm onary edema, pneumonia or some combination thereof.
--- NOTE | ~2020-11-28 | XR_ITS ---
EXAMINATION: XR abdomen obstructive series EXAM DATE: 12/12/2020 17:39 INDICATION: Abdominal distention. TECHNIQUE: Frontal upright projection of the upper abdomen, frontal projection of the lower abdomen f or interpretation. Comparison is made to prior examination from 12/06/2020. FINDINGS: Feeding tube is in position. The stomach appears collapsed. There is large amount of colon ic gas to the descending colon, new finding compared to previous examination. Only small to moderate amount of rectosigmoid stool. No evidence of dilated air-filled small bowel. There are cholecystectom y clips. IMPRESSION: Development of large amount of colonic gas. No small bowel dilation. Reviewed, dictated and finalized at location A. IMPRESSION: Development of large amount of colonic gas. No small bowel dilation .
--- NOTE | ~2020-11-28 | XR_ITS ---
EXAMINATION: XR chest 1V portable DATE: 12/16/2020 05:44 INDICATION: Respiratory failure TECHNIQUE: frontal view of the chest was obtained. COMPARISON: Chest radiograph dated 12/15/2020 FINDINGS: Endotracheal tube tip 3.5 cm above the ramirez. Right upper extremity peripherally inserted central ve nous catheter (PICC) tip at the mid superior vena cava. Increased lucency and architectural distortion in the upper lung zones consistent with emphysema. Unc hanged elevation of the left hemidiaphragm. Unchanged opacities in the lower lung zones most likely c ombination of vascular crowding and atelectasis/scarring. A few calcified pulmonary nodules and calci fied right hilar lymph nodes consistent with old granulomatous disease. The cardiomediastinal silhoue tte is normal. IMPRESSION: 1. No significant change in opacities in the lower lung zones consistent with atelectasis/scarring an d/or pneumonia. 2. Emphysema. Reviewed, dictated and finalized at location A. IMPRESSION: 1. No significant change in opacities in the lower lung zones consistent with a telectasis/scarring and/or pneumonia. 2. Emphysema.
--- NOTE | ~2020-11-28 | XR_ITS ---
EXAMINATION: XR chest 1V portable DATE: 12/14/2020 05:50 INDICATION: Respiratory failure TECHNIQUE: frontal view of the chest was obtained. COMPARISON: Chest radiograph dated 12/13/2020 FINDINGS: Endotracheal tube tip 3.4 cm above the ramirez. Nasogastric tube in the stomach. Right upper extremity peripherally inserted central venous catheter (PICC) tip at the mid superior vena cava. Change mild relative elevation of the left hemidiaphragm. Hyperexpansion of lungs with increased luce ncy in the left upper and right mid and upper lung zones consistent with emphysema. The cardiomediast inal silhouette is normal. Visualized bones and soft tissues are unremarkable. No significant interva l change in opacities in the bilateral lower lungs most likely representing atelectasis and bronchova scular crowding of the differential includes pneumonia. A few scattered small calcified right-sided p ulmonary nodules and calcified right hilar lymph nodes consistent with old granulomatous disease. IMPRESSION: 1. Unchanged prominent streaky opacities in the bilateral lower lungs and favor atelectasis over pneu monia. 2. Emphysema. Reviewed, dictated and finalized at location A. IMPRESSION: 1. Unchanged prominent streaky opacities in the bilateral lower lungs and favor atelectasis over pneumonia. 2. Emphysema.
--- NOTE | ~2020-11-28 | XR_ITS ---
XR chest 1V portable 12/20/2020 05:53 Indication: Acute respiratory failure Procedure: AP portable chest Comparison: Comparison to multiple prior studies sequentially, with oldest reviewed study dated 12/14. Findings: Tracheostomy tube present. PICC line tip in the SVC. There are emphysematous changes. Cardi omegaly. There is airspace disease of the right mid and bilateral lower lungs. No significant effusio n. No pneumothorax. Impression: 1: Persistent patchy bilateral airspace disease, consistent with pneumonia. Reviewed, dictated and finalized at location A. Impression: 1: Persistent patchy bilateral airspace disease, consistent with pneumonia.
--- NOTE | ~2020-11-28 | XR_ITS ---
EXAMINATION: XR abdomen NG/feed tube insert DATE: 12/06/2020 13:01 INDICATION: Orogastric tube placement. TECHNIQUE: A semiupright view of the abdomen was obtained. COMPARISON: None. FINDINGS: The lower abdomen is excluded. There are no dilated loops of bowel. The nasogastric tube ti p is in the stomach. Surgical clips in the right upper quadrant are likely from cholecystectomy. IMPRESSION: 1. Nasogastric tube tip in the stomach. Reviewed, dictated and finalized at location A.
--- NOTE | ~2020-11-28 | XR_ITS ---
XR chest 1V portable DATE: 12/17/2020 07:45 INDICATION: Tracheotomy TECHNIQUE: Portable upright AP chest on 12/13/2020 at 0740 hours COMPARISON: 12/16/2020 portable AP chest FINDINGS: Interval tracheotomy since 12/16/2020. Tracheostomy tube appears in satisfactory position. Right upper extremity PIC catheter tip overlies superior vena cava. Normal heart size. Aortic calcification. Bilateral hyperinflation and emphysematous changes. There are infiltrates and/atelectasis in the lowe r lung zones. Diffuse osteopenia. IMPRESSION: Interval tracheotomy Emphysema Bilateral basilar infiltrate and/atelectasis Reviewed, dictated and finalized at location A.
--- NOTE | ~2020-11-28 | US_ITS ---
US right upper quadrant INDICATION: Elevated liver function tests PROCEDURE: Realtime right upper abdominal ultrasound. COMPARISON: No prior studies for comparison. FINDINGS: The pancreas is normal without focal mass or pancreatic ductal dilation. Liver echotexture is normal without focal mass or intrahepatic biliary dilatation. There is normal directional flow i n the portal vein. Gallbladder surgically absent. Common bile duct measures 4 mm. No sonographic Bonilla's sign. IMPRESSION: 1: Unremarkable limited abdominal ultrasound postcholecystectomy. Reviewed, dictated and finalized at location A.
--- NOTE | ~2020-11-28 | CT_ITS ---
EXAMINATION: CTA chest PE protocol DATE: 11/28/2020 23:04 INDICATION: Dyspnea. Shortness of breath. TECHNIQUE: Computed tomography angiography (CTA) of the chest was performed with 100 mL Omnipaque-350 intravenous contrast timed to evaluate the pulmonary arteries. Coronal maximum intensity projection 3D-reconstructions were created by the technologist. Automated exposure control and iterative reconst ruction technique were employed. Exam dose: 232.11 mGy-cm total exam DLP. COMPARISON: 11/28/2020 portable AP chest 10/16/2019 CT lung screening 10/27/2018 CT pulmonary scan FINDINGS: There is diagnostic contrast enhancement of the pulmonary arteries and no evidence of pulmo nary embolism. No thoracic aortic aneurysm or dissection is evident. Heart size is normal. No hilar or mediastinal m ass lesion or lymphadenopathy. No pericardial or pleural effusion. Prominent emphysematous changes. Chronic middle lobe atelectasis. Minimal infiltrate, atelectasis and /or scarring at the lung bases. Stable peripheral approximately 6 mm left lower lobe nodule since 11/13/2018. Normal morphology of the adrenal glands. Calcified right hilar nodes and calcified splenic granulomas consistent with old granulomatous diseas e. No suspicious osteolytic or osteoblastic lesions. IMPRESSION: No evidence of pulmonary embolism COPD Chronic mild middle lobe atelectasis Stable 6 mm left lower lobe nodular density since 10/27/2018, likely benign Reviewed, dictated and finalized at Location A. Reviewed, dictated and finalized at location A.
--- NOTE | ~2020-11-28 | XR_ITS ---
EXAMINATION: XR chest 1V portable DATE: 12/04/2020 05:26 INDICATION: Chronic obstructive pulmonary disease exacerbation. TECHNIQUE: A single frontal view of the chest was obtained. COMPARISON: Chest single view 12/03/2020 FINDINGS: The lungs are hyperexpanded with lucencies, consistent with emphysema. There is mild atelec tasis at the lung bases. A calcified right lung nodule and calcified right hilar lymph nodes are cons istent with old granulomatous disease. No pleural effusion or pneumothorax. The heart size is normal. The endotracheal tube tip is 5.0 cm above the ramirez. The nasogastric tube tip is beyond the inferio r margin of the radiograph, but at least to the stomach. IMPRESSION: 1. Severe emphysema. 2. Stable mild atelectasis at the lung bases. Reviewed, dictated and finalized at location A.
--- NOTE | ~2020-11-28 | XR_ITS ---
EXAMINATION: XR chest ET placement DATE: 12/06/2020 13:01 INDICATION: Intubation. TECHNIQUE: A single frontal view of the chest was obtained. COMPARISON: Chest single view at 5:36 AM FINDINGS: The lungs are hyperexpanded with lucencies, consistent with emphysema. A calcified right matt ng nodule and calcified right hilar lymph nodes are consistent with old granulomatous disease. There is mild atelectasis at the lung bases. No pleural effusion or pneumothorax. The heart size is normal. The endotracheal tube tip is 3.0 cm above the ramirez. The nasogastric tube tip is beyond the inferio r margin of the radiograph, but at least to the stomach. IMPRESSION: 1. Worsened mild atelectasis at the lung bases. 2. Severe emphysema. Reviewed, dictated and finalized at location A.
--- NOTE | ~2020-11-28 | XR_ITS ---
EXAMINATION: XR chest 1V portable DATE: 12/05/2020 05:46 INDICATION: Chronic obstructive pulmonary disease exacerbation. TECHNIQUE: A single frontal view of the chest was obtained. COMPARISON: Chest single view 12/04/2020 FINDINGS: The lungs are hyperexpanded with lucencies, consistent with emphysema. A calcified right matt ng nodule and calcified right hilar lymph nodes are consistent with old granulomatous disease. There is mild atelectasis at the lung bases. No pneumothorax or pleural effusion. The heart size is normal. The endotracheal tube tip is 4.7 cm above the ramirez. The nasogastric tube tip is beyond the inferio r margin of the radiograph, but at least to the stomach. IMPRESSION: 1. Severe emphysema. 2. Stable mild atelectasis at the lung bases. Reviewed, dictated and finalized at location A.
--- NOTE | ~2020-11-28 | XR_ITS ---
EXAMINATION: XR chest 1V portable EXAM DATE: 11/28/2020 22:33 INDICATION: Shortness of breath. History COPD. TECHNIQUE: Portable AP frontal chest x-ray was obtained. Comparison is made to prior examination from 03/12/2020, 10/31/2018. FINDINGS: Severe chronic hyperinflation. Some right basilar airspace disease with silhouetting of the cardiac margin, and also some linear regions. Probably scarring or atelectasis. Appearance is unchan ged compared to prior studies. No evidence of acute airspace disease, pneumothorax or pleural effusio n. Cardiomediastinal silhouette is normal. IMPRESSION: 1. Severe chronic hyperinflation. 2. Chronic right basilar airspace disease probably atelectasis/scarring. Reviewed, dictated and finalized at location G.
--- NOTE | ~2020-11-28 | XR_ITS ---
EXAMINATION: XR chest 1V portable DATE: 12/13/2020 06:14 INDICATION: Respiratory failure TECHNIQUE: frontal view of the chest was obtained. COMPARISON: Chest radiograph dated 12/12/20 and chest radiograph and CT dated 11/28/2020 FINDINGS: Endotracheal tube tip 7.1 cm above the ramirez. Nasogastric tube tip in proximal side port in the body of the stomach. Right upper extremity peripherally inserted central venous catheter (PICC) tip at t he mid superior vena cava. Unchanged mild relative elevation of the left hemidiaphragm. Hyperexpansion of lungs with increased l ucency with architectural distortion in the left upper and right mid and upper lung zones consistent with emphysema. Opacities in the bilateral lower lung zones which on prior CT appear to correspond to bronchovascular crowding and linear discoid atelectasis/scarring. New mild opacities in the right mi dlung zone which could represent additional atelectasis or pneumonia. A few calcified nodules in the right lung along with calcified right hilar lymph nodes consistent with old granulomatous disease. Ca rdiomediastinal silhouette is normal. Cholecystectomy clips in the right upper quadrant. IMPRESSION: 1. Endotracheal tube tip 7.1 cm above the ramirez. Recommend advancement by 5 cm. 2. New patchy airspace opacity in the right midlung zone which could represent atelectasis or pneumon ia. 3. Emphysema with bronchovascular crowding and mild atelectasis at the bilateral lung bases. Reviewed, dictated and finalized at location A. IMPRESSION: 1. Endotracheal tube tip 7.1 cm above the ramirez. Recommend advancement by 5 cm . 2. New patchy airspace opacity in the right midlung zone which could represent atelectasis or pneumonia. 3. Emphysema with bronchovascular crowding and mild atelectasis at the bilatera l lung bases.
--- NOTE | ~2020-11-28 | XR_ITS ---
XR chest 1V portable DATE: 12/08/2020 05:51 INDICATION: Respiratory failure TECHNIQUE: Portable AP chest on 12/08/2020 at 0521 hours COMPARISON: 12/07/2020 portable AP chest at 0520 hours FINDINGS: ET tube is approximately 8.2 cm above ramirez; ideal range is 2-5 cm. NG tube in the lower body of the stomach satisfactory position. Right upper extremity PIC catheter tip overlies the superior vena cava. Bilateral hyperinflation relative flattening of the diaphragm, consistent with COPD. There are bibasi lar infiltrates, fibrosis and/or atelectasis, relatively stable. Heart size appears within normal range. Is aortic arch calcification. Diffuse osteopenia. IMPRESSION: ET tube 8.2 cm above ramirez; ideal range is 2-5 cm NG tube in stomach Right upper extremity PIC catheter in superior vena cava Bibasilar infiltrate, atelectasis//or scarring, relatively stable since 12/07/2020 COPD Reviewed, dictated and finalized at location A. IMPRESSION: ET tube 8.2 cm above ramirez; ideal range is 2-5 cm NG tube in stomach Right upper extremity PIC catheter in superior vena cava Bibasilar infiltrate, atelectasis//or scarring, relatively stable since 12/08/19 21 COPD
--- NOTE | ~2020-11-28 | XR_ITS ---
EXAMINATION: XR chest 1V portable INDICATION: Respiratory failure TECHNIQUE: Portable AP chest at 0518 hours COMPARISON: 12/09/2020 FINDINGS: The endotracheal tube ends approximately 4.9 cm above the ramirez. The nasogastric tube is f ollowed as far as the stomach. Its tip is beyond the inferior margin of the radiograph. A right upper extremity PICC ends with its tip in the distal superior vena cava. The lungs are hyperinflated. No a cute airspace opacities are identified. There is no pleural effusion or pneumothorax. The cardiomedia stinal silhouette is normal. IMPRESSION: 1. Hyperinflation without acute cardiopulmonary abnormality. Reviewed, dictated and finalized at location A.
--- NOTE | ~2020-11-28 | XR_ITS ---
EXAMINATION: XR chest 1V portable DATE: 12/12/2020 06:35 INDICATION: Respiratory failure TECHNIQUE: frontal view of the chest was obtained. COMPARISON: Chest radiograph dated 12/10/20 FINDINGS: Endotracheal tube tip 4.7 cm above the ramirez. Nasogastric tube with proximal side-port in the body of the stomach and with distal tip collimated off the study. Right upper extremity peripherally inser patrick central venous catheter (PICC) tip at the mid superior vena cava. Unchanged mild elevation of the left hemidiaphragm. Mild bibasilar atelectasis. There are few scatter ed calcified nodules in the right lung along with calcified right hilar lymph nodes consistent with o ld granulomatous disease. The cardiomediastinal silhouette is normal. Surgical clip projects over the lower right chest. IMPRESSION: 1. Mild bibasilar atelectasis. Reviewed, dictated and finalized at location A.
--- NOTE | ~2020-11-28 | XR_ITS ---
XR chest ET placement 12/01/2020 18:04 Indication: Intubation. Procedure: AP portable chest Comparison: Comparison to multiple prior studies sequentially, with oldest reviewed study dated 02/24. Findings: Endotracheal tube 3.9 cm above the ramirez. NG tube in the stomach. There is a coronary sarai ry stent. There is severe bullous emphysema. There is chronic right basilar atelectasis/scarring. The re is left basilar airspace disease which was not present on 03/07, suspicious for pneumonia. No pneumothorax identified. Impression: 1: Left basilar airspace disease, suspicious for pneumonia. 2: Severe emphysema with chronic right basilar atelectasis/scarring. Reviewed, dictated and finalized at location A. Impression: 1: Left basilar airspace disease, suspicious for pneumonia. 2: Severe emphysema with chronic right basilar atelectasis/scarring.
--- NOTE | ~2020-11-28 | XR_ITS ---
EXAMINATION: XR chest 1V portable DATE: 11/30/2020 12:04 INDICATION: Shortness of breath. TECHNIQUE: A single frontal view of the chest was obtained. COMPARISON: Chest single view 11/28/2020, chest CT 11/28/2020 FINDINGS: There are lucencies in the lungs, consistent with emphysema. There is mild atelectasis in t he lower lung zones. No pleural effusion or pneumothorax. The heart size is normal. Calcified right h ilar lymph nodes are consistent with old granulomatous disease. IMPRESSION: 1. Severe emphysema. 2. Mild atelectasis in the lower lung zones. Reviewed, dictated and finalized at location A.
--- NOTE | ~2020-11-28 | XR_ITS ---
EXAMINATION: XR chest 1V portable DATE: 12/09/2020 05:38 INDICATION: Respiratory failure. TECHNIQUE: A single frontal view of the chest was obtained. COMPARISON: Chest single view 12/08/2020 FINDINGS: The lungs are hyperexpanded with lucencies, consistent with emphysema. Calcified right lung nodules and calcified right hilar lymph nodes are consistent with old granulomatous disease. There i s mild atelectasis versus scarring at the lung bases. No pleural effusion or pneumothorax. The heart size is normal. The endotracheal tube tip is 5.6 cm above the ramirez. The nasogastric tube tip is bey ond the inferior margin of the radiograph, but at least to the stomach. A right upper extremity perip herally inserted central venous catheter (PICC) is seen with tip in the superior vena cava. IMPRESSION: 1. Severe emphysema. 2. Stable mild atelectasis versus scarring at the lung bases. Reviewed, dictated and finalized at location A.
--- NOTE | ~2020-11-28 | XR_ITS ---
EXAMINATION: XR chest 1V portable DATE: 12/06/2020 06:00 INDICATION: Chronic obstructive pulmonary disease exacerbation. TECHNIQUE: A single frontal view of the chest was obtained. COMPARISON: Chest single view 12/05/2020 FINDINGS: The lungs are hyperexpanded with lucencies, consistent with emphysema. A calcified right matt ng nodule and calcified right hilar lymph nodes are consistent with old granulomatous disease. There is mild atelectasis at the lung bases. No pleural effusion or pneumothorax. The heart size is normal. IMPRESSION: 1. Severe emphysema. 2. Stable mild atelectasis at the lung bases. Reviewed, dictated and finalized at location A.
--- NOTE | ~2020-11-28 | XR_ITS ---
XR abdomen NG/feed tube insert INDICATION: Evaluate NG tube position. TECHNIQUE: Limited KUB perform for evaluating NG tube . COMPARISON: No prior studies for comparison. FINDINGS: NG tube tip in the stomach. Visualized bowel gas pattern is unremarkable.There are cholecy stectomy clips. IMPRESSION: 1: NG tube tip in the stomach. Reviewed, dictated and finalized at location A.
--- NOTE | ~2020-11-28 | XR_ITS ---
EXAMINATION: XR abdomen obstructive series DATE: 12/15/2020 08:09 INDICATION: Abdominal distention TECHNIQUE: Upright and supine views of the abdomen were obtained. COMPARISON: 12/13/2020 FINDINGS: The nasogastric tube has been removed. A percutaneous gastrostomy now projects in the left upper quadrant. There is persistent gaseous distention of the large bowel without significant change. Stool is noted in the rectum. No dilated small bowel is identified. There is no free intraperitoneal gas. There is mild atelectasis of the visualized lung bases. IMPRESSION: 1. Unchanged gaseous distention of colon. Reviewed, dictated and finalized at location B.
--- NOTE | ~2020-11-28 | XR_ITS ---
EXAMINATION: XR chest 1V portable DATE: 12/15/2020 05:34 INDICATION: Respiratory failure TECHNIQUE: frontal view of the chest was obtained. COMPARISON: Chest radiograph dated 12/14/2020 FINDINGS: Endotracheal tube tip 2.8 cm above the ramirez. Right upper extremity peripherally inserted central ve nous catheter (PICC) tip at the mid superior vena cava. Emphysema. Unchanged elevation of left hemidiaphragm. No significant interval change in patchy airspa ce opacities in the right mid and bilateral lower lung zones. A few scattered calcified pulmonary nod ules and calcified right hilar lymph nodes consistent with old granulomatous disease. The cardiomedia stinal silhouette is normal. IMPRESSION: 1. No significant change in airspace opacity in the right mid and bilateral lower lung zones which co uld represent atelectasis and/or pneumonia. 2. Emphysema. Reviewed, dictated and finalized at location A. IMPRESSION: 1. No significant change in airspace opacity in the right mid and bilateral low er lung zones which could represent atelectasis and/or pneumonia. 2. Emphysema.
--- NOTE | ~2020-11-28 | XR_ITS ---
EXAMINATION: XR abdomen obstructive series DATE: 12/13/2020 09:09 INDICATION: Abdominal distention. No bowel movement. TECHNIQUE: Frontal supine and upright views of the abdomen were obtained. COMPARISON: 12/12/2020 FINDINGS: Nasogastric tube tip in proximal side port in the decompressed body of the stomach. Cholecystectomy c lips in right upper quadrant. Goddard catheter with temperature probe at the bladder. Gaseous distentio n of the colon most prominent proximally and decreasing in caliber distally. Minimal stool at the rec girish. No pneumatosis, gas-filled small bowel or free intraperitoneal gas. Unchanged mild elevation of the left hemidiaphragm and mild bibasilar atelectasis/scarring. A few calcified nodules in the right lung consistent with old granulomatous disease. Heart size is normal. IMPRESSION: 1. Persistent nonspecific diffuse gaseous distention of colon with proximal predominance and with mi nimal stool at the rectum. Reviewed, dictated and finalized at location A. IMPRESSION: 1. Persistent nonspecific diffuse gaseous distention of colon with proximal pr edominance and with minimal stool at the rectum.
--- NOTE | ~2020-11-28 | US_ITS ---
EXAMINATION: US venous doppler [facility] DATE: 12/15/2020 13:07 INDICATION: Bilateral lower limb swelling TECHNIQUE: [place] scale images without and with compression and Doppler images of the bilateral lower e xtremity veins were obtained. COMPARISON: None FINDINGS: The right common femoral vein, profunda femoral vein, femoral vein, popliteal vein, peroneal trunk, p osterior tibial veins, and greater saphenous vein are patent. The left common femoral vein, profunda femoral vein, femoral vein, popliteal vein, peroneal trunk, po sterior tibial veins, and greater saphenous vein are patent. IMPRESSION: 1. Patent bilateral lower extremity veins. No evidence of deep venous thrombosis. Reviewed, dictated and finalized at location B. IMPRESSION: 1. Patent bilateral lower extremity veins. No evidence of deep venous thrombosi s.
--- NOTE | ~2020-11-28 | XR_ITS ---
EXAMINATION: XR chest 1V portable DATE: 12/07/2020 06:00 INDICATION: Chronic obstructive pulmonary disease exacerbation. TECHNIQUE: A single frontal view of the chest was obtained. COMPARISON: Chest single view 12/06/2020 FINDINGS: The lungs are hyperexpanded with lucencies, consistent with emphysema. There is mild atelec tasis versus scarring at the lung bases. Calcified right lung nodules and calcified right hilar lymph nodes are consistent with old granulomatous disease. No pleural effusion or pneumothorax. The heart size is normal. The endotracheal tube tip is 6.5 cm above the ramirez. The nasogastric tube tip is bey ond the inferior margin of the radiograph, but at least to the stomach. A right upper extremity perip herally inserted central venous catheter (PICC) is seen with tip in the superior vena cava. IMPRESSION: 1. Severe emphysema. 2. Stable mild atelectasis versus scarring at the lung bases. Reviewed, dictated and finalized at location A.
--- NOTE | ~2020-11-28 | XR_ITS ---
EXAMINATION: XR chest 1V portable INDICATION: Shortness of breath TECHNIQUE: Portable AP chest at 1216 hours COMPARISON: 12/10/2020 FINDINGS: A tracheostomy is partially imaged but expected position. A right upper extremity PICC cath eter with its tip in the superior vena cava. Emphysema is noted. There is scarring and atelectasis of the lung bases. No focal airspace opacity is identified. The cardiomediastinal silhouette is normal. IMPRESSION: 1. Scarring versus atelectasis of the lung bases. 2. Severe emphysema. Reviewed, dictated and finalized at location A.
--- NOTE | 2020-11-28 21:53 | ECG_ITS ---
Measurements Intervals [place] Rate: 96 P: 98 ME: 147 QRS: 47 QRSD: 74 T: 72 QT: 322 QTc: 407 Interpretive Statements SINUS RHYTHM ATRIAL PREMATURE COMPLEX BASELINE ARTIFACT- I, II, III, AVR, AVL, AVF, V1, V3-V6 BORDERLINE ECG Electronically Signed On 11-29-2020 9:34:57 CDT by Drake Brewster D.O.
[2020-11-28 21:54] LABS: Basophils Percent Auto 0.3 % (0.2-1.2); Eosinophils Percent Auto 0.2 % (0-4.4); Hematocrit 38.2 % (37.0-47.0); Hemoglobin 12.1 g/dL (12.0-15.0); Immature Granulocyte Absolute 0.05 K/mm3 (0.00-0.031); Immature Granulocyte Percent A 0.4 % (0-0.5); Mean Corpuscular HGB Conc 31.7 g/dl (32-36); Mean Corpuscular Hemoglobin 28.1 pg (26-34); Mean Corpuscular Volume 88.6 fl (80-100); Mean Platelet Volume 9.7 fl (7.4-10.4); Monocytes Absolute Auto 1.1 K/mm3 (0.1-0.6); Monocytes Percent Auto 9.1 % (2.6-8.5); Neutrophils Absolute Auto 9.1 K/mm3 (1.3-6.7); Platelet Count Result 311 k/mm3 (150-375); Red Blood Count 4.31 M/mm3 (4.2-5.4); Red Cell Distribution Width 15.8 % (11.5-14.5); White Blood Count 11.7 K/mm3 (4.5-10.0)
[2020-11-28] MEDS: methylPREDNISolone SOD SUCC 125 MG VIAL IV PUSH (21:59)
[2020-11-28 22:05] LABS: Lactic Acid Reflex 0.9 mmol/L (0.7-2.1)
[2020-11-28 22:07] LABS: Alanine Aminotransferase 14 U/L (4-35); Albumin Level 4.4 g/dL (3.5-5.1); Alkaline Phosphatase 112 U/L (38-126); Anion Gap 8 mmol/L (8-16); Aspartate Amino Transferase 21 U/L (14-36); Bilirubin,Total 0.7 mg/dL (0.2-1.3); Blood Urea Nitrogen 10 mg/dL (7-17); Calcium 9.4 mg/dL (8.4-10.2); Carbon Dioxide 31 mmol/L (22-30); Chloride 101 mmol/L (98-107); Estimated CRCL calculation 43 ml/min; Estimated Glomerular Filt Rate > 60; Glucose 118 mg/dL (65-105); Magnesium 1.7 mg/dL (1.6-2.3); Sodium 140 mmol/L (137-145)
[2020-11-28 22:18] LABS: NT Pro B Type Natriuretic Pept 168 pg/mL (5-100); Troponin I < 0.012 ng/mL (0.000-0.034)
[2020-11-28 22:25] LABS: Alveolar/Arterial O2 Gradient 259.8 mmHg; Base Excess ABG 3.4 mEq/l (+/-2.0); Fractional Inspired Oxygen 60 %; HCO3 ABG 29.1 mEq/l (22.0-26.0); Oxygen Content ABG 17.7 %vol (16.0-22.0); Oxygen Saturation ABG 98.1 % (95.0-100.0); Oxyhemoglobin 96.6 % THb (90.0-100.0); PCO2 ABG 48.9 mmHg (35.0-45.0); PO2 ABG 114.2 mmHg (80.0-100.0); Total Hemoglobin 12.9 g/dL (12.0-18.0); pH ABG 7.393 (7.350-7.450)
--- NOTE | 2020-11-28 22:25 | ECG_ITS ---
Measurements Intervals [place] Rate: 103 P: 97 VA: 139 QRS: 30 QRSD: 81 T: 57 QT: 270 QTc: 354 Interpretive Statements SINUS TACHYCARDIA NONSPECIFIC T-WAVE ABNORMALITY- HIGH LATERAL LEADS BASELINE ARTIFACT- I, II, III, AVR, AVL, AVF, V1-V6 ABNORMAL ECG Electronically Signed On 12-02-2020 10:22:17 CDT by Drake Brewster D.O.
[2020-11-28 22:26] LABS: Modified Allen's Test Pass; Site Drawn RIGHT RADIAL
[2020-11-28 22:28] LABS: Device OTHER DEVICE
--- NOTE | 2020-11-28 23:09 | ED.GENADULT ---
HPI - General Adult General Chief complaint: Shortness of Breath/Dyspnea Stated complaint: dyspnea-copd exac Time Seen by Provider: 11/28/20 21:33 History of Present Illness HPI narrative: Is a 75-year-old female presents emerged from with chief complaint of shortness of breath. Patient reports she has history of COPD and is noticed over the last several days she has been having increasing shortness of breath. Patient states she has been wheezing reports that she has had a low-grade temperature. Patient reports he has been vaccinated for COVID-19 patient reports also she has had a little bit of a dry cough that is been nonproductive. Patient denies chest pain reports that she is cannot get a good deep breath with this. Related Data Home Medications Medication Instructions Recorded Confirmed amlodipine 5 mg tablet 5 mg PO DAILY 05/05/19 08/12/20 atorvastatin 40 mg tablet 40 mg PO DAILY 05/05/19 08/12/20 nitroglycerin 0.4 mg sublingual 0.4 mg SUBLINGUAL Q5M PRN 05/05/19 08/12/20 tablet aspirin 81 mg tablet,delayed 81 mg PO DAILY 05/06/19 08/12/20 release calcium carbonate 600 mg calcium 600 mg PO BID 05/06/19 08/12/20 (1,500 mg) tablet levothyroxine 50 mcg tablet 50 mcg PO DAILY 05/06/19 08/12/20 geriatric multivitamin-min tablet 04/07/20 08/12/20 [One-A-Day 50 Plus] albuterol sulfate 2.5 mg INHALATION Q4-6H PRN 04/15/20 08/12/20 Allergies Allergy/AdvReac Type Severity Reaction Status Date / Time No Known Allergies Allergy Verified 11/28/20 21:32 Review of Systems Review of Systems: Narrative: A 10 system review of systems was completed on the patient and is negative except for what is stated in the HPI. Nursing and ancillary documentation was reviewed. [facility] Past Medical History Medical History Chronic hypoxemic respiratory failure Elevated lipids H/O vaginal delivery History of heart attack History of tobacco use Hypertension Shortness of Breath Thyroid disease Surgical History Surgical History History of cholecystectomy History of total abdominal hysterectomy and bilateral salpingo-oophorectomy History of tubal ligation Family History Family History Mother Hypertension Sibling Family history of malignant neoplasm of kidney Family history of lung cancer Lung disease Social History Social History Smoking packs per day: 1.5 Smoking cigarettes per day: 30.0 Years smoked: 49 Smoking pack-years: 73.50 Smoking status: Former smoker Tobacco type: cigarettes Smoking end date: 10/27/18 Alcohol intake: never Substance use: never Gender identity (if verbalized by the patient): Female Spiritual care concerns: No Exam Narrative: Exam Narrative: GENERAL: Well-appearing, well-nourished, and in no acute distress. HEAD: Normocephalic, atraumatic. EYES: PERRLA and EOMI. ENT: Nares clear, no rhinorrhea or epistaxis. Mucous membranes moist. NECK: Supple. CHEST: Clear to auscultation. No respiratory distress. HEART: Regular rate and rhythm. No murmur heard. Normal peripheral pulses. ABDOMEN: Soft, nontender, nondistended, normal active bowel sounds. EXTREMITIES: Normal range of motion. No edema. SKIN: Warm, dry, no rash. NEURO: No focal deficits. Alert and oriented x3. PSYCH: Normal mood and affect. Course Course Emergency Course: Chest x-ray showed no evidence of pneumonia CT PE protocol showed no evidence of pulmonary embolism Patient had significant improvement after receiving steroids and breathing treatments and was able to be titrated back to her normal home oxygen levels but the patient was extremely dyspneic whenever she was attempted to be ambulated due to this the patient will be admitted for observation for a COPD exac
--- NOTE | 2020-11-28 23:34 | PC.NURSE ---
assumed care of pt. at this time. Report from KEMAR Ferro
[2020-11-29] VITALS (42 sets, daily range): BP systolic 93–146; BP diastolic 41–72; PULSE 82–173; RESP 14–26; TEMP 36–36.8; O2SAT 90–100; BMI 25.7
[2020-11-29] MEDS: IPRATROPIUM BR 0.02% INH SOLN 0.5 MG/2.5 ML VIAL 1 MG (00:26)
[2020-11-29] MEDS: ALBUTEROL SULFATE NEB 2.5 MG/0.5 ML INH 10 MG (00:27)
[2020-11-29] MEDS: ALBUTEROL SULFATE NEB 2.5 MG/0.5 ML INH 5 MG INHALATION ×3 (01:58→11:51)
[2020-11-29] MEDS: IPRATROPIUM BR 0.02% INH SOLN 0.5 MG/2.5 ML VIAL INHALATION ×5 (01:58→23:24)
--- NOTE | 2020-11-29 02:41 | ADMGEN ---
This patient, Laxmi Colon, was admitted to [address] [place] [address] Room 314-02. Patient/family oriented to hospital policies and general routines including ID bracelet, bed and alarms, visiting hours, pain management, procedures, bathroom and other care routines, personal items, smoking policy, room service/diet, and visiting hours. Information on how to activate the Rapid Response Team has been discussed. Patient/Family are encouraged to report perceived risks to care and to ask questions if they do not understand what they are told or what they should do.
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
[2020-11-29] MEDS: levoFLOXacin 500 MG/D5W 100 ML 500 MG/100 ML BAG 100 MG IVPB (04:02)
[2020-11-29] MEDS: methylPREDNISolone SOD SUCC 125 MG VIAL 60 MG IV PUSH ×2 (06:00→13:00)
[2020-11-29] MEDS: LEVOTHYROXINE SODIUM 50 MCG TABLET PO (06:10)
[2020-11-29] MEDS: CALCIUM CARBONATE (OSCAL) 500 MG TABLET PO ×2 (07:55→18:28)
[2020-11-29] MEDS: ATORVASTATIN 40 MG TABLET PO (07:55)
[2020-11-29] MEDS: amLODIPine BESYLATE 5 MG TABLET PO (07:55)
[2020-11-29] MEDS: ASPIRIN 81 MG ENTERIC TABLET PO (07:56)
[2020-11-29] MEDS: MULTIVITAMINS /C LUTEIN (CENTRUM SILVER) TABLET *BKC 1 TAB PO (07:56)
[2020-11-29] MEDS: ENOXAPARIN 40 MG/0.4 ML SYRINGE SUB-Q (07:56)
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
[2020-11-29 12:46] LABS: Alveolar/Arterial O2 Gradient 98.5 mmHg; Base Excess ABG 2.3 mEq/l (+/-2.0); Carboxyhemoglobin 0.3 % THb (0-2.0); Fractional Inspired Oxygen 30 %; Methemoglobin ABG 0.3 %THb (0-1.5); Oxygen Content ABG 17.2 %vol (16.0-22.0); Oxygen Saturation ABG 93.3 % (95.0-100.0); Oxyhemoglobin 92.4 % THb (90.0-100.0); PCO2 ABG 42.3 mmHg (35.0-45.0); PO2 ABG 65.7 mmHg (80.0-100.0); PO2 FiO2 Ratio Arterial Blood 2.19 %; Total Hemoglobin 13.2 g/dL (12.0-18.0); pH ABG 7.423 (7.350-7.450)
[2020-11-29 12:47] LABS: Device NASAL CANNULA; Modified Allen's Test Pass; Site Drawn RIGHT RADIAL
--- NOTE | 2020-11-29 15:21 | PC.NURSE ---
Patient transferred via bed from [address] [place] [address] to [facility].
--- NOTE | 2020-11-29 15:24 | PC.NURSE ---
This patient, Laxmi Colon, was received from [facility] on 11/29/20 at 1509. Report received from Joyce REINOSO. Patient/family oriented to unit policies and routines
[2020-11-29] MEDS: methylPREDNISolone SOD SUCC 40 MG VIAL IV PUSH (18:28)
[2020-11-29] MEDS: ALBUTEROL SULFATE NEB 2.5 MG/0.5 ML INH INHALATION ×2 (20:49→23:24)
[2020-11-29] MEDS: levoFLOXacin 250 MG/D5W 50 ML 250 MG/50 ML BAG 50 MG IVPB (21:57)
[2020-11-30] VITALS (29 sets, daily range): BP systolic 115–169; BP diastolic 51–92; PULSE 77–124; RESP 17–31; TEMP 36.4–37.3; O2SAT 88–97
[2020-11-30] MEDS: methylPREDNISolone SOD SUCC 40 MG VIAL IV PUSH ×4 (01:25→17:04)
[2020-11-30] MEDS: IPRATROPIUM BR 0.02% INH SOLN 0.5 MG/2.5 ML VIAL INHALATION ×5 (03:55→20:49)
[2020-11-30] MEDS: ALBUTEROL SULFATE NEB 2.5 MG/0.5 ML INH INHALATION ×5 (03:55→20:49)
[2020-11-30 05:07] LABS: Hematocrit 40.4 % (37.0-47.0); Hemoglobin 12.6 g/dL (12.0-15.0); Mean Corpuscular HGB Conc 31.2 g/dl (32-36); Mean Corpuscular Hemoglobin 27.6 pg (26-34); Mean Corpuscular Volume 88.4 fl (80-100); Mean Platelet Volume 9.9 fl (7.4-10.4); Platelet Count Result 364 k/mm3 (150-375); Red Blood Count 4.57 M/mm3 (4.2-5.4); Red Cell Distribution Width 15.9 % (11.5-14.5); White Blood Count 21.6 K/mm3 (4.5-10.0)
[2020-11-30 05:47] LABS: Anion Gap 9 mmol/L (8-16); Blood Urea Nitrogen 24 mg/dL (7-17); Calcium 10.2 mg/dL (8.4-10.2); Carbon Dioxide 31 mmol/L (22-30); Chloride 100 mmol/L (98-107); Estimated CRCL calculation 38 ml/min; Estimated Glomerular Filt Rate > 60; Glucose 156 mg/dL (65-105); Magnesium 2.1 mg/dL (1.6-2.3); Potassium 4.3 mmol/L (3.4-5.0); Sodium 140 mmol/L (137-145)
[2020-11-30] MEDS: LEVOTHYROXINE SODIUM 50 MCG TABLET PO (06:30)
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
[2020-11-30] MEDS: MULTIVITAMINS /C LUTEIN (CENTRUM SILVER) TABLET *BKC 1 TAB PO (09:34)
[2020-11-30] MEDS: ASPIRIN 81 MG ENTERIC TABLET PO (09:34)
[2020-11-30] MEDS: ATORVASTATIN 40 MG TABLET PO (09:34)
[2020-11-30] MEDS: ENOXAPARIN 40 MG/0.4 ML SYRINGE SUB-Q (09:34)
[2020-11-30] MEDS: amLODIPine BESYLATE 5 MG TABLET PO (09:34)
[2020-11-30] MEDS: CALCIUM CARBONATE (OSCAL) 500 MG TABLET PO ×2 (09:34→17:03)
--- NOTE | 2020-11-30 11:40 | PC.NURSE ---
Respiratory called RN stating she needed a Rapid Response called. RN entered room with another RN to assess situation. RN notified JACKSON Saenz and reporting coordinator of situation at hand. Pt having difficulty breathing and was placed on BiPAP. Chest x-ray and ABG obtained. Antibiotics changed to address HAP. Pt remained on BiPAP as saturations improved to mid 90's and heart rate decreased to low 100's from 130's.
--- NOTE | 2020-11-30 12:15 | PCRCNOTE ---
CALLED TO PT ROOM FOR PRN NEBULIZER TX. PT C/O SEVERE SOB. TX GIVEN THEN PT PLACED ON BIPAP WITH ORDERED SETTINGS OF AVAPS VT 450/+5/R16/35%. PT C/O NOT ENOUGH AIR , SPO2 88% - SETTINGS CHANGED TO BIPAP SETTINGS AND ADJUSTED FOR PT COMFORT AND APPROPRIATE TIDAL VOLUMES. PT REMAINED ANXIOUS, C/O SOB. RN AND SHELL REPRINT OPERATOR CALLED TO BEDSIDE. ONCE ABG DRAWN, CXR OBTAINED AND PT WAS MADE COMFORTABLE, BIPAP SETTINGS WERE WEANED TO 14/6 R10 40% WITH SPO2 95%, HR 112.
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
[2020-11-30] MEDS: BUDESONIDE RESPULE NEB 0.5 MG/2 ML AMP INHALATION ×2 (13:24→20:49)
[2020-11-30 13:53] LABS: Alveolar/Arterial O2 Gradient 164.2 mmHg; Base Excess ABG 4.7 mEq/l (+/-2.0); Fractional Inspired Oxygen 40 %; HCO3 ABG 31.1 mEq/l (22.0-26.0); Oxygen Content ABG 17.6 %vol (16.0-22.0); Oxygen Saturation ABG 90.2 % (95.0-100.0); Oxyhemoglobin 89.7 % THb (90.0-100.0); PCO2 ABG 53.1 mmHg (35.0-45.0); PO2 ABG 59.9 mmHg (80.0-100.0); pH ABG 7.385 (7.350-7.450)
[2020-11-30 13:55] LABS: Device NON-INVASIVE VENT; Modified Allen's Test Pass; Non-Invasive Expiratory Pressure 6 CMH2O; Non-Invasive Inspiratory Pressure 14 CMH2O; Non-Invasive Vent Rate 10 /MIN; Site Drawn LEFT RADIAL
[2020-11-30 18:54] LABS: SARS-CoV-2 RNA PCR Negative
[2020-11-30] MEDS: LORazepam INJ (*CRX) 2 MG/ML VIAL 0.5 MG IV PUSH (23:11)
[2020-12-01] VITALS (35 sets, daily range): BP systolic 81–144; BP diastolic 55–86; PULSE 87–124; RESP 17–32; TEMP 36.1–37.7; O2SAT 87–96
[2020-12-01] MEDS: methylPREDNISolone SOD SUCC 40 MG VIAL IV PUSH ×4 (01:21→17:00)
[2020-12-01] MEDS: ALBUTEROL SULFATE NEB 2.5 MG/0.5 ML INH INHALATION ×5 (01:44→19:53)
[2020-12-01] MEDS: IPRATROPIUM BR 0.02% INH SOLN 0.5 MG/2.5 ML VIAL INHALATION ×5 (01:44→19:52)
[2020-12-01 05:35] LABS: Basophils Percent Auto 0.1 % (0.2-1.2); Hematocrit 40.3 % (37.0-47.0); Immature Granulocyte Absolute 0.21 K/mm3 (0.00-0.031); Immature Granulocyte Percent A 0.7 % (0-0.5); Lymphocytes Absolute Auto 1.05 K/mm3 (0.9-3.2); Lymphocytes Percent Auto 3.5 % (18.3-44.2); Mean Corpuscular HGB Conc 32.3 g/dl (32-36); Mean Corpuscular Hemoglobin 28.3 pg (26-34); Mean Corpuscular Volume 87.6 fl (80-100); Mean Platelet Volume 10.9 fl (7.4-10.4); Monocytes Absolute Auto 1.5 K/mm3 (0.1-0.6); Monocytes Percent Auto 4.9 % (2.6-8.5); Neutrophils Absolute Auto 26.9 K/mm3 (1.3-6.7); Neutrophils Percent Auto 90.8 % (45.5-73.1); Nucleated Red Blood Cells Perc 0.1 % (0.0-0.2); Platelet Count Result 450 k/mm3 (150-375); Red Cell Distribution Width 15.9 % (11.5-14.5); White Blood Count 29.7 K/mm3 (4.5-10.0)
--- NOTE | 2020-12-01 05:42 | PC.NURSE ---
Addendum entered by Diana Coker RN 12/01/20 05:45: Run happened at 0400 on 12/01/20 Original Note: Pt had an 18 beat at 186, was asymptomatic, and went back to low 100's SR. Dr Whal notified of run and of pt's HR staying low 100's. No new orders.
[2020-12-01 05:58] LABS: Alanine Aminotransferase 41 U/L (4-35); Albumin Level 4.3 g/dL (3.5-5.1); Alkaline Phosphatase 107 U/L (38-126); Anion Gap 9 mmol/L (8-16); Aspartate Amino Transferase 51 U/L (14-36); Bilirubin,Total 0.4 mg/dL (0.2-1.3); Blood Urea Nitrogen 40 mg/dL (7-17); Calcium 10.7 mg/dL (8.4-10.2); Carbon Dioxide 33 mmol/L (22-30); Chloride 100 mmol/L (98-107); Estimated CRCL calculation 34 ml/min; Estimated Glomerular Filt Rate 59; Glucose 182 mg/dL (65-105); Potassium 4.6 mmol/L (3.4-5.0); Sodium 142 mmol/L (137-145)
[2020-12-01] MEDS: LEVOTHYROXINE SODIUM 50 MCG TABLET PO (06:36)
[2020-12-01] MEDS: BUDESONIDE RESPULE NEB 0.5 MG/2 ML AMP INHALATION ×2 (07:05→19:55)
[2020-12-01] MEDS: amLODIPine BESYLATE 5 MG TABLET PO (08:51)
[2020-12-01] MEDS: ASPIRIN 81 MG ENTERIC TABLET PO (08:51)
[2020-12-01] MEDS: ENOXAPARIN 40 MG/0.4 ML SYRINGE SUB-Q (08:51)
[2020-12-01] MEDS: ATORVASTATIN 40 MG TABLET PO (08:51)
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
[2020-12-01] MEDS: LORazepam INJ (*CRX) 2 MG/ML VIAL 0.5 MG IV PUSH ×2 (11:58→17:00)
--- NOTE | 2020-12-01 12:14 | PCRCNOTE ---
CALLED TO PT ROOM BY GUMARO DOWNING. PT APPEARS VERY ANXIOUS ON BIPAP SETTINGS AVAPS R16, VT450, +5, 40%. PT STATES THAT SHE IS NOT GETTING ENOUGH AIR. I CHANGED SETTINGS BACK TO 14/6 R10 AND PT STILL C/O NOT ENOUGH AIR. I THEN INCREASED IPAP TO 18 AND CALLED KEMAR HARRIS AND DR CARTY. ONCE PT SETTLED, BIPAP WAS WEANED BACK TO 14/8 R10 40%. PER DR CARTY, KEEP BIPAP AT SETTINGS WHICH PT IS COMFORTABLE AND SPO2 IS WITHIN LIMITS.
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
[2020-12-01] MEDS: ALBUTEROL SULFATE NEB 2.5 MG/3 ML INH INHALATION (16:46)
[2020-12-01 16:59] LABS: Alveolar/Arterial O2 Gradient 253.1 mmHg; Base Excess ABG 3.3 mEq/l (+/-2.0); Fractional Inspired Oxygen 60 %; HCO3 ABG 32.4 mEq/l (22.0-26.0); Oxygen Content ABG 18.9 %vol (16.0-22.0); Oxygen Saturation ABG 96.2 % (95.0-100.0); Oxyhemoglobin 95.4 % THb (90.0-100.0); PO2 ABG 96.3 mmHg (80.0-100.0); PO2 FiO2 Ratio Arterial Blood 1.61 %
[2020-12-01 17:00] LABS: pH ABG 7.275 (7.350-7.450)
--- NOTE | 2020-12-01 17:00 | P.PNCROSS_ITS ---
Event Note Event Note Event Note: I received a phone call from JACKSON Saenz at around 16:30 with a condition update and requests that I evaluate the patient for possible decline in condition as she was gone for the day. The patient's chart was reviewed. It looks like she was admitted with a COPD exacerbation and she has had increasing issues with shortness of breath and anxiety. She has also been increasingly anxious and continues to be anxious despite receiving Ativan. A stat ABG showed evidence of decompensation with a pH of 7.275 and a pCO2 of 71.3 with a bicarb of 32.4. At the time my evaluation the patient was a bit somnolent and slightly confused since receiving Ativan. After discussions with the patient, her , and her son it was decided that they would be okay with her being intubated if need be. In fact the patient told me that she was quite tired and felt like she was struggling to breathe and was asking to be intubated. I then discussed the case with Dr. Toney (store sales consultant) who was in agreement and accepted her to the ICU. On exam the patient's abdomen seemed to be distended with concerns for possible urinary retention although Goddard catheter did not yield much urine at all when placed and instead I think her abdominal distension was due to the BiPAP and abdominal breathing. She was tachycardic. No lower extremity edema noted. Negative Tomás sign bilaterally. She denied fever, chest pain, pleuritic pain, nausea, vomiting, and sweats. 35 minutes were spent in critical care activities including extensive review of her chart, review of imaging and labs, discussions with the patient and her family members, as well as discussions with other providers and specialists. This was exclusive of procedures.
[2020-12-01 17:01] LABS: Device NON-INVASIVE VENT; Modified Allen's Test Pass; PCO2 ABG 71.3 mmHg (35.0-45.0); Site Drawn LEFT RADIAL
[2020-12-01 17:02] LABS: Non-Invasive Expiratory Pressure 6 CMH2O; Non-Invasive Inspiratory Pressure 14 CMH2O; Non-Invasive Vent Rate 10 /MIN
--- NOTE | 2020-12-01 17:15 | PC.NURSE ---
Spoke with spouse, William Colon, regarding patient's wishes to remain a full code and to be intubated. Notified him of patient being moved to ICU 5 for intubation
--- NOTE | 2020-12-01 17:35 | P.PCNBED_ITS ---
Procedures Intubation Intubation Date: 12/01/20 <MICKEY Walden Last Filed: 12/01/20 18:01> Intubation Time: 17:35 <MICKEY Walden Last Filed: 12/01/20 18:01> Consent: Patient and gave verbal consent prior to procedure. <MICKEY Walden Last Filed: 12/01/20 18:01> A pre-procedural Time-Out was completed immediately before starting the procedure and confirmed: Patient Identification, Site, Procedure, Patient Position and the Availability of Requisite Equipment: Yes <MICKEY Walden Last Filed: 12/01/20 18:01> Sedative: etomidate <MICKEY Walden Last Filed: 12/01/20 18:01> Mg given: 15 <MICKEY Walden Last Filed: 12/01/20 18:01> Paralytic: succinylcholine <MICKEY Walden Last Filed: 12/01/20 18:01> Mg given: 80 <MICKEY Walden Last Filed: 12/01/20 18:01> Laryngoscope: fiber optic video scope <MICKEY Walden Last Filed: 12/01/20 18:01> Assist device used: fiber optic device <MICKEY Walden Last Filed: 12/01/20 18:01> ET tube size: 7.5 <MICKEY Walden Last Filed: 12/01/20 18:01> Tube secured depth (cm): 23 <MICKEY Walden Last Filed: 12/01/20 18:01> Tube secured location: lips <MICKEY Walden Last Filed: 12/01/20 18:01> Tube placement confirmation: visualized tube passing through cords, equal breath sounds bilaterally, no breath sounds over epigastrium and confirmation by capnometry <MICKEY Walden Last Filed: 12/01/20 18:01> Patient tolerated procedure: well <Yanelis Lomas PA-C - Last Filed: 12/01/20 18:01> Intubation complications: none <Yanelis Lomas PA-C - Last Filed: 12/01/20 18:01> Additional comments: I discussed the procedure with Dr. Bhavna Tee, attending ED physician, prior to and she was available if needed. Vent settings and sedation orders per Dr. Toney, director of business operations. <Yanelis Lomas PA-C - Last Filed: 12/01/20 18:01>
[2020-12-01] MEDS: FENTANYL 2,500MCG/NS250ML(*CRX 2,500 MCG/250 ML BAG 10 MCG IV CONT (18:00)
[2020-12-01] MEDS: MIDAZOLAM 100MG/NS 100ML(*CRX) 100 MG/100 ML BAG IV CONT (18:00)
--- NOTE | 2020-12-01 18:04 | PC.NURSE ---
This patient, Laxmi Colon, was transferred to [ ICU 5] on 12/01/20 at 1715. Personal belongings sent with patient. Report given to [KEMAR De Los Santos @ 2044 ]. Appropriate documentation sent with patient.
[2020-12-01] MEDS: MIDAZOLAM HCL (*CRX) 2 MG/2 ML VIAL IV PUSH (18:18)
[2020-12-01] MEDS: SODIUM CHLORIDE 0.9% IV 1,000 ML 999 ML IV CONT (20:10)
[2020-12-01 20:11] LABS: Alveolar/Arterial O2 Gradient 280.7 mmHg; Base Excess ABG 1.3 mEq/l (+/-2.0); Fractional Inspired Oxygen 60 %; HCO3 ABG 28.2 mEq/l (22.0-26.0); Methemoglobin ABG 0.3 %THb (0-1.5); Oxygen Content ABG 17.3 %vol (16.0-22.0); Oxygen Saturation ABG 95.9 % (95.0-100.0); Oxyhemoglobin 95.2 % THb (90.0-100.0); PCO2 ABG 54.5 mmHg (35.0-45.0); PO2 ABG 87.2 mmHg (80.0-100.0); PO2 FiO2 Ratio Arterial Blood 1.45 %; Reduced Hemoglobin 4.5 %THb (0-5.0); Total Hemoglobin 12.9 g/dL (12.0-18.0); pH ABG 7.331 (7.350-7.450)
[2020-12-01 20:12] LABS: Device VENTILATOR; Modified Allen's Test Pass; Site Drawn LEFT RADIAL
[2020-12-01 20:13] LABS: Arterial Blood Gas PEEP 5 cmH2O; Arterial Blood Gas Tidal Volume 360 ml; Arterial Blood Gas Vent Mode CMV; Arterial Blood Gas Ventilator rate 20 /MIN
[2020-12-01] MEDS: MINERAL OIL/WHITE PETROLATUM OINTMENT 1 APPLIC EACH EYE (20:45)
[2020-12-01] MEDS: SALINE 0.65% NAS SOLN 44 ML BTL 1 SPRAY NASAL (20:46)
[2020-12-01] MEDS: SODIUM CHLORIDE 0.9% IV 1,000 ML 100 ML IV CONT (22:30)
[2020-12-02] VITALS (47 sets, daily range): BP systolic 91–125; BP diastolic 55–66; PULSE 65–93; RESP 17–21; TEMP 37.1–37.7; O2SAT 91–98; BMI 25.7
--- NOTE | 2020-12-02 | ECHO_ITS ---
Patient Info Name: Laxmi Colon Age: 75 years : 1945 Gender: Female Ht: 64 in Wt: 150 lbs BSA: 1.77 m2 HR: 84 bpm BP: 101 / 60 mmHg Technical Quality: Fair Exam Date: 12/02/2020 11:48 AM Exam Location: [facility] Patient Status: Inpatient Admit Date: 11/29/2020 Staff Ordering Physician: Valentín Osborn MD R[employer]her [employer]: Matthew Bonilla RDCS, RT Attending Provider: Gris Philipep PA-C Referring Physician: Anurag HERNANDEZ; Exam Type: CA echo doppler color flow Study Info Indications J96.01 - Acute respiratory failure with hypoxia Complete two-dimensional, color flow and Doppler transthoracic echocardiogram is performed. Summary 1. Complete two-dimensional, color flow and Doppler transthoracic echocardiogram is performed. 2. Left ventricular chamber dimension is normal. 3. Left ventricular systolic function is normal, estimated at 60-65%. 4. There is mildly increased left ventricular wall thickness. 5. The left ventricular diastolic function is grade I diastolic dysfunction. 6. E/e' 17 is elevated. 7. Dilated inferior vena cava with >50% collapse upon inspiration consistent with elevated right atrial pressure, 10 mmHg. Left Ventricle E/e' 17 is elevated. Left ventricular chamber dimension is normal. Left ventricular systolic function is normal, estimated at 60-65%. There is mildly increased left ventricular wall thickness. The left ventricular diastolic function is grade I diastolic dysfunction. Right Ventricle Right ventricular systolic function is normal based on a normal TAPSE 1.8 cm. Right ventricular chamber dimension is not well visualized. Left Atria Left atrial chamber dimension is normal. Right Atria Right atrial chamber dimension is normal. Aortic Valve The aortic valve is trileaflet. There is no aortic valve stenosis. There is no aortic valve regurgitation. Pulmonic Valve There is no pulmonic regurgitation. Mitral Valve There is no mitral valve stenosis. There is no mitral valve regurgitation. Tricuspid Valve There is no tricuspid valve regurgitation. Pericardium/Pleural There is no pericardial effusion. Inferior Vena Cava Dilated inferior vena cava with >50% collapse upon inspiration consistent with elevated right atrial pressure, 10 mmHg. Aorta The aortic root size at the sinus of Valsalva is normal. Left Ventricular Outflow Tract Name Value Normal LVOT 2D LVOT Diameter 1.9 cm LVOT Doppler LVOT Peak Gradient 3 mmHg LVOT Mean Gradient 2 mmHg LVOT VTI 15 cm LVOT VTI/AV VTI Ratio 0.7 LVOT Stroke Volume 42 ml LVOT CO 3.6 l/min LVOT CI 2.0 l/min/m2 Mitral Valve Name Value Normal MV Doppler
[2020-12-02] MEDS: methylPREDNISolone SOD SUCC 40 MG VIAL IV PUSH ×4 (00:16→18:05)
[2020-12-02] MEDS: IPRATROPIUM BR 0.02% INH SOLN 0.5 MG/2.5 ML VIAL INHALATION ×7 (01:58→23:45)
[2020-12-02] MEDS: ALBUTEROL SULFATE NEB 2.5 MG/0.5 ML INH INHALATION ×7 (01:58→23:45)
[2020-12-02 05:12] LABS: Alanine Aminotransferase 34 U/L (4-35); Albumin Level 3.7 g/dL (3.5-5.1); Alkaline Phosphatase 92 U/L (38-126); Anion Gap 9 mmol/L (8-16); Aspartate Amino Transferase 44 U/L (14-36); Bilirubin,Total 0.4 mg/dL (0.2-1.3); Blood Urea Nitrogen 49 mg/dL (7-17); Carbon Dioxide 26 mmol/L (22-30); Chloride 105 mmol/L (98-107); Estimated CRCL calculation 32 ml/min; Estimated Glomerular Filt Rate 53; Glucose 168 mg/dL (65-105); Potassium 5.1 mmol/L (3.4-5.0); Sodium 140 mmol/L (137-145)
[2020-12-02 05:41] LABS: Alveolar/Arterial O2 Gradient 223.7 mmHg; Base Excess ABG 3.1 mEq/l (+/-2.0); Carboxyhemoglobin 0.3 % THb (0-2.0); Device VENTILATOR; Fractional Inspired Oxygen 50 %; HCO3 ABG 28.8 mEq/l (22.0-26.0); Methemoglobin ABG 0.2 %THb (0-1.5); Modified Allen's Test Pass; Oxygen Content ABG 15.9 %vol (16.0-22.0); Oxygen Saturation ABG 95.3 % (95.0-100.0); Oxyhemoglobin 94.4 % THb (90.0-100.0); PCO2 ABG 48.8 mmHg (35.0-45.0); PO2 ABG 77.9 mmHg (80.0-100.0); PO2 FiO2 Ratio Arterial Blood 1.56 %; Reduced Hemoglobin 5.1 %THb (0-5.0); Site Drawn LEFT RADIAL; Total Hemoglobin 11.9 g/dL (12.0-18.0); pH ABG 7.389 (7.350-7.450)
[2020-12-02 05:42] LABS: Arterial Blood Gas PEEP 5 cmH2O; Arterial Blood Gas Tidal Volume 360 ml; Arterial Blood Gas Vent Mode CMV; Arterial Blood Gas Ventilator rate 18 /MIN
[2020-12-02] MEDS: LEVOTHYROXINE SODIUM 50 MCG TABLET PO (06:39)
[2020-12-02] MEDS: MULTIVITAMINS /C LUTEIN (CENTRUM SILVER) TABLET *BKC 1 TAB PO (07:23)
[2020-12-02] MEDS: CALCIUM CARBONATE (OSCAL) 500 MG TABLET PO ×2 (07:23→16:17)
[2020-12-02] MEDS: ENOXAPARIN 40 MG/0.4 ML SYRINGE SUB-Q (07:23)
[2020-12-02] MEDS: MINERAL OIL/WHITE PETROLATUM OINTMENT 1 APPLIC EACH EYE ×2 (07:23→21:15)
[2020-12-02] MEDS: ASPIRIN 81 MG ENTERIC TABLET PO (07:23)
[2020-12-02] MEDS: ATORVASTATIN 40 MG TABLET PO (07:25)
[2020-12-02] MEDS: hetaSTARCH 6%/NACL 500 ML 250 ML IV CONT (08:09)
[2020-12-02] MEDS: BUDESONIDE RESPULE NEB 0.5 MG/2 ML AMP INHALATION ×2 (08:39→20:40)
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
[2020-12-02] MEDS: SODIUM CHLORIDE 0.9% IV 500 ML IV CONT (10:21)
[2020-12-02] MEDS: SODIUM CHLORIDE 0.9% IV 1,000 ML 75 ML IV CONT (10:21)
[2020-12-02 10:54] LABS: NT Pro B Type Natriuretic Pept 399 pg/mL (5-100)
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
[2020-12-02] MEDS: DORNASE ALFA INH SOLN 1 MG/ML 2.5 ML AMP 2.5 MG INHALATION ×2 (11:13→20:40)
[2020-12-02] MEDS: SODIUM CHLORIDE NASAL GEL 14.1 GM 1 APPLIC NASAL (21:15)
[2020-12-03] VITALS (44 sets, daily range): BP systolic 108–144; BP diastolic 62–86; PULSE 60–96; RESP 7–18; TEMP 36.8–37.3; O2SAT 19–98
[2020-12-03] MEDS: methylPREDNISolone SOD SUCC 40 MG VIAL IV PUSH ×5 (00:15→23:12)
[2020-12-03] MEDS: SODIUM CHLORIDE 0.9% IV 1,000 ML 75 ML IV CONT ×2 (03:03→17:23)
[2020-12-03 04:38] LABS: Anion Gap 5 mmol/L (8-16); Blood Urea Nitrogen 41 mg/dL (7-17); Calcium 8.5 mg/dL (8.4-10.2); Carbon Dioxide 29 mmol/L (22-30); Chloride 106 mmol/L (98-107); Estimated CRCL calculation 42 ml/min; Estimated Glomerular Filt Rate > 60; Glucose 147 mg/dL (65-105); Magnesium 2.2 mg/dL (1.6-2.3); Phosphorus 3.3 mg/dL (2.5-4.5); Potassium 4.9 mmol/L (3.4-5.0); Sodium 140 mmol/L (137-145)
[2020-12-03 04:39] LABS: Alveolar/Arterial O2 Gradient 154.5 mmHg; Base Excess ABG 3.2 mEq/l (+/-2.0); Fractional Inspired Oxygen 40 %; HCO3 ABG 28.5 mEq/l (22.0-26.0); Oxygen Content ABG 14.5 %vol (16.0-22.0); Oxygen Saturation ABG 95.3 % (95.0-100.0); Oxyhemoglobin 93.8 % THb (90.0-100.0); PCO2 ABG 46.7 mmHg (35.0-45.0); PO2 FiO2 Ratio Arterial Blood 1.92 %; Total Hemoglobin 10.9 g/dL (12.0-18.0); pH ABG 7.404 (7.350-7.450)
[2020-12-03 04:42] LABS: Modified Allen's Test Unable to perform; Site Drawn RIGHT RADIAL
[2020-12-03 04:43] LABS: Device VENTILATOR
[2020-12-03 04:44] LABS: Arterial Blood Gas Ventilator rate 18 /MIN
[2020-12-03 04:45] LABS: Arterial Blood Gas PEEP 5 cmH2O; Arterial Blood Gas Tidal Volume 360 ml; Arterial Blood Gas Vent Mode CMV
[2020-12-03] MEDS: FENTANYL 2,500MCG/NS250ML(*CRX 2,500 MCG/250 ML BAG 7.5 MCG IV CONT (04:45)
[2020-12-03] MEDS: LEVOTHYROXINE SODIUM 50 MCG TABLET PO (04:45)
[2020-12-03] MEDS: MIDAZOLAM 100MG/NS 100ML(*CRX) 100 MG/100 ML BAG IV CONT (04:47)
[2020-12-03 05:37] LABS: Thyroid Stimulating Hormone Reflex 0.788 uIU/mL (0.465-4.68)
[2020-12-03 06:13] LABS: Basophils Percent Auto 0.1 % (0.2-1.2); Hematocrit 32.8 % (37.0-47.0); Hemoglobin 9.9 g/dL (12.0-15.0); Immature Granulocyte Percent A 0.7 % (0-0.5); Lymphocytes Absolute Auto 1.86 K/mm3 (0.9-3.2); Lymphocytes Percent Auto 12.6 % (18.3-44.2); Mean Corpuscular HGB Conc 30.2 g/dl (32-36); Mean Corpuscular Volume 92.7 fl (80-100); Mean Platelet Volume 11.2 fl (7.4-10.4); Monocytes Absolute Auto 1.3 K/mm3 (0.1-0.6); Monocytes Percent Auto 8.7 % (2.6-8.5); Neutrophils Absolute Auto 11.5 K/mm3 (1.3-6.7); Neutrophils Percent Auto 77.9 % (45.5-73.1); Nucleated Red Blood Cells Perc 0.1 % (0.0-0.2); Platelet Count Result 265 k/mm3 (150-375); Red Blood Count 3.54 M/mm3 (4.2-5.4); Red Cell Distribution Width 16.1 % (11.5-14.5); White Blood Count 14.7 K/mm3 (4.5-10.0)
[2020-12-03] MEDS: MINERAL OIL/WHITE PETROLATUM OINTMENT 1 APPLIC EACH EYE ×2 (07:49→19:48)
[2020-12-03] MEDS: ATORVASTATIN 40 MG TABLET PO (07:49)
[2020-12-03] MEDS: ASPIRIN 81 MG ENTERIC TABLET PO (07:49)
[2020-12-03] MEDS: ENOXAPARIN 40 MG/0.4 ML SYRINGE SUB-Q (07:49)
[2020-12-03] MEDS: CALCIUM CARBONATE (OSCAL) 500 MG TABLET PO ×2 (07:49→16:28)
[2020-12-03] MEDS: MULTIVITAMINS /C LUTEIN (CENTRUM SILVER) TABLET *BKC 1 TAB PO (07:49)
[2020-12-03] MEDS: ALBUTEROL SULFATE NEB 2.5 MG/0.5 ML INH INHALATION ×4 (08:24→21:15)
[2020-12-03] MEDS: BUDESONIDE RESPULE NEB 0.5 MG/2 ML AMP INHALATION ×2 (08:24→21:15)
[2020-12-03] MEDS: IPRATROPIUM BR 0.02% INH SOLN 0.5 MG/2.5 ML VIAL INHALATION ×4 (08:25→21:15)
[2020-12-03] MEDS: DORNASE ALFA INH SOLN 1 MG/ML 2.5 ML AMP 2.5 MG INHALATION ×2 (08:25→21:14)
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
--- NOTE | 2020-12-03 09:41 | WPDINTPN ---
Progress Note: A&P Assessment and Plan (1) Acute hypercapnic respiratory failure: Code(s): J96.02 - Acute respiratory failure with hypercapnia Status: Acute Assessment and Plan: acute hypercapnic respiratory failure likely related to COPD exacerbation and/or pneumonia - patient was intubated on 12/01/2020 - on CMV mode, peep of 5, 50% FiO2, will wean FiO2 to maintain O2 sats greater than 88% as patient has severe emphysema CTA chest - Will switch to ASV mode, will give sedation vacation, try patient on SBT and evaluate for extubation - continue bronchodilators, steroids - continue cefepime, vancomycin and Levaquin per firer portable boiler - secretions have improved with Pulmozyme, continue (2) COPD exacerbation: Code(s): J44.1 - Chronic obstructive pulmonary disease with (acute) exacerbation Status: Acute Assessment and Plan: continue mechanical ventilation, ABGs much improved this morning - continue steroids, bronchodilators and antibiotics (3) Hypothyroidism: Code(s): E03.9 - Hypothyroidism, unspecified Status: Acute Assessment and Plan: continue levothyroxine (4) Hypertension: Qualifiers: Hypertension type: unspecified Qualified Code(s): I10 - Essential (primary) hypertension Code(s): I10 - Essential (primary) hypertension Status: Acute Assessment and Plan: history of essential hypertension will hold amlodipine as borderline blood pressures likely secondary to positive pressure ventilation and or infection (5) DVT prophylaxis: Code(s): Z29.9 - Encounter for prophylactic measures, unspecified Status: Acute Assessment and Plan: continue Lovenox Additional Plan will discuss with family code status: Full code Critical care time spent: 33 minutes This dictation may have been done utilizing a voice recognition system. Attempts have been made to correct errors. However, there may be uncorrected grammatical, spelling, and recognition errors present. Due to a high probability of clinically significant, life threatening deterioration, the patient required my highest level of preparedness to intervene emergently and I personally spent this critical care time directly and personally managing the patient. This critical care time included obtaining a history; examining the patient; pulse oximetry; ordering and review of studies; arranging urgent treatment with development of a management plan; evaluation of patient's response to treatment; frequent reassessment; and discussions with other providers. It was exclusive of separately billable procedures and treating other patients and teaching time. Please see Assessment and Plan section and the rest of the note for further information on patient assessment and treatment Subjective Date/time seen: 12/03/20 09:41 Interval history: Reason for consult: acute hypercapnic respiratory failure, COPD exacerbation 12/03/2020: Patient remains intubated on CMV mode of ventilation, peep of 5, 40% FiO2. Patient is sedated with fentanyl and Versed infusion, opens her eyes and follows simple commands in all extremities and nods to questions. Patient is afebrile, adequate urine output and hemodynamically stable. Review of Systems Review of Systems: ROS unobtainable: Yes unobtainable due to endotracheal tube Exam Const: General: comfortable and no acute distress HENMT: Other: ETT in place Eyes: Sclera: sclerae normal Pupils: Equal, round and reactive pupils present Neck: Neck: supple Thyroid: thyroid normal Lymphatic: lymphadenopathy not noted Resp: Effort & Inspection: normal respiratory effort Auscultation: rhonchi and diminished lung sounds Cardio: Rate: regular rate Rhythm: regular rhythm GI: Inspection: non-distended GI Palp: Yes Soft to palpation and No Tenderness to palpation present (GI) Auscultation: normal bowel sounds : Other: Goddard catheter in place U
[2020-12-03 15:57] LABS: Vancomycin Trough 7.5 ug/mL (10.0-20.0)
[2020-12-03] MEDS: SODIUM CHLORIDE NASAL GEL 14.1 GM 1 APPLIC NASAL (19:48)
[2020-12-03 22:31] LABS: Alveolar/Arterial O2 Gradient 133.1 mmHg; Base Excess ABG 1.6 mEq/l (+/-2.0); Carboxyhemoglobin 0.3 % THb (0-2.0); Fractional Inspired Oxygen 40 %; HCO3 ABG 29.3 mEq/l (22.0-26.0); Methemoglobin ABG 0.1 %THb (0-1.5); Oxygen Content ABG 15.4 %vol (16.0-22.0); Oxygen Saturation ABG 94.5 % (95.0-100.0); Oxyhemoglobin 93.7 % THb (90.0-100.0); PO2 ABG 81.1 mmHg (80.0-100.0); PO2 FiO2 Ratio Arterial Blood 2.03 %; Reduced Hemoglobin 5.9 %THb (0-5.0); Total Hemoglobin 11.6 g/dL (12.0-18.0); pH ABG 7.294 (7.350-7.450)
[2020-12-03 22:36] LABS: PCO2 ABG 61.7 mmHg (35.0-45.0); Site Drawn LEFT RADIAL
[2020-12-03 22:37] LABS: Device VENTILATOR; Modified Allen's Test Unable to perform
[2020-12-03 22:38] LABS: Arterial Blood Gas Vent Mode CMV; Arterial Blood Gas Ventilator rate 12 /MIN
[2020-12-03 22:39] LABS: Arterial Blood Gas Minute Volume 4 LPM; Arterial Blood Gas PEEP 5 cmH2O; Arterial Blood Gas Tidal Volume 360 ml
[2020-12-03] MEDS: methylPREDNISolone SOD SUCC 125 MG VIAL IV PUSH (23:53)
[2020-12-04] VITALS (49 sets, daily range): BP systolic 101–123; BP diastolic 52–71; PULSE 53–88; RESP 12–22; TEMP 35.7–37; O2SAT 87–100
[2020-12-04] MEDS: IPRATROPIUM BR 0.02% INH SOLN 0.5 MG/2.5 ML VIAL INHALATION ×7 (00:12→20:36)
[2020-12-04] MEDS: ALBUTEROL SULFATE NEB 2.5 MG/0.5 ML INH INHALATION ×7 (00:13→20:36)
[2020-12-04 05:00] LABS: Alveolar/Arterial O2 Gradient 215.7 mmHg; Base Excess ABG 1.4 mEq/l (+/-2.0); Carboxyhemoglobin 0.2 % THb (0-2.0); Fractional Inspired Oxygen 60 %; HCO3 ABG 27.3 mEq/l (22.0-26.0); Methemoglobin ABG 0.4 %THb (0-1.5); Oxygen Content ABG 15.1 %vol (16.0-22.0); Oxygen Saturation ABG 98.9 % (95.0-100.0); Oxyhemoglobin 97.4 % THb (90.0-100.0); PCO2 ABG 49.5 mmHg (35.0-45.0); PO2 ABG 157.7 mmHg (80.0-100.0); PO2 FiO2 Ratio Arterial Blood 2.63 %; Total Hemoglobin 10.8 g/dL (12.0-18.0)
[2020-12-04 05:02] LABS: Device VENTILATOR; Modified Allen's Test Unable to perform; Site Drawn RIGHT RADIAL
[2020-12-04 05:04] LABS: Arterial Blood Gas Minute Volume 7 LPM; Arterial Blood Gas PEEP 8 cmH2O; Arterial Blood Gas Vent Mode CMV; Arterial Blood Gas Ventilator rate 22 /MIN
[2020-12-04 05:08] LABS: Arterial Blood Gas Tidal Volume 360 ml
--- NOTE | 2020-12-04 05:10 | PCRCNOTE ---
ABG gas tidal volume was an error, the correct volume is 360ml from sample time 0458, 12/04/20.
[2020-12-04 05:57] LABS: Hematocrit 33.5 % (37.0-47.0); Mean Corpuscular HGB Conc 29.9 g/dl (32-36); Mean Corpuscular Hemoglobin 27.9 pg (26-34); Mean Corpuscular Volume 93.6 fl (80-100); Mean Platelet Volume 11.2 fl (7.4-10.4); Platelet Count Result 247 k/mm3 (150-375); Red Blood Count 3.58 M/mm3 (4.2-5.4); White Blood Count 11.9 K/mm3 (4.5-10.0)
[2020-12-04 05:58] LABS: Anion Gap 6 mmol/L (8-16); Blood Urea Nitrogen 39 mg/dL (7-17); Calcium 8.3 mg/dL (8.4-10.2); Carbon Dioxide 26 mmol/L (22-30); Chloride 107 mmol/L (98-107); Estimated CRCL calculation 46 ml/min; Estimated Glomerular Filt Rate > 60; Glucose 139 mg/dL (65-105); Magnesium 2.3 mg/dL (1.6-2.3); Phosphorus 3.9 mg/dL (2.5-4.5); Potassium 4.8 mmol/L (3.4-5.0); Sodium 139 mmol/L (137-145)
[2020-12-04] MEDS: methylPREDNISolone SOD SUCC 40 MG VIAL IV PUSH ×4 (06:02→23:58)
[2020-12-04] MEDS: LEVOTHYROXINE SODIUM 50 MCG TABLET PO (06:03)
[2020-12-04] MEDS: SODIUM CHLORIDE 0.9% IV 1,000 ML 75 ML IV CONT ×2 (08:24→21:58)
[2020-12-04] MEDS: ATORVASTATIN 40 MG TABLET PO (08:25)
[2020-12-04] MEDS: ASPIRIN 81 MG ENTERIC TABLET PO (08:26)
[2020-12-04] MEDS: ENOXAPARIN 40 MG/0.4 ML SYRINGE SUB-Q (08:26)
[2020-12-04] MEDS: MULTIVITAMINS /C LUTEIN (CENTRUM SILVER) TABLET *BKC 1 TAB PO (08:26)
[2020-12-04] MEDS: MINERAL OIL/WHITE PETROLATUM OINTMENT 1 APPLIC EACH EYE ×2 (08:26→21:39)
[2020-12-04] MEDS: CALCIUM CARBONATE (OSCAL) 500 MG TABLET PO ×2 (08:26→16:27)
[2020-12-04] MEDS: DORNASE ALFA INH SOLN 1 MG/ML 2.5 ML AMP 2.5 MG INHALATION ×2 (08:38→21:13)
[2020-12-04] MEDS: BUDESONIDE RESPULE NEB 0.5 MG/2 ML AMP INHALATION ×2 (08:39→20:36)
[2020-12-04] MEDS: ALBUTEROL SULFATE NEB 2.5 MG/0.5 ML INH 10 MG INHALATION (09:09)
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
[2020-12-04] MEDS: FENTANYL 2,500MCG/NS250ML(*CRX 2,500 MCG/250 ML BAG 10 MCG IV CONT (10:42)
[2020-12-04] MEDS: MIDAZOLAM 100MG/NS 100ML(*CRX) 100 MG/100 ML BAG IV CONT (10:43)
--- NOTE | 2020-12-04 11:10 | WPDINTPN ---
Progress Note: A&P Assessment and Plan (1) Acute hypercapnic respiratory failure: Code(s): J96.02 - Acute respiratory failure with hypercapnia Status: Acute Assessment and Plan: acute hypercapnic respiratory failure likely related to COPD exacerbation and/or pneumonia - patient was intubated on 12/01/2020 - on CMV mode, peep of 5, 40% FiO2, will wean FiO2 to maintain O2 sats greater than 88% as patient has severe emphysema CTA chest - patient was placed on pressure support ventilation 02/28 yesterday and did well for most part of the day, she started using her abdominal muscles and other accessory muscles of respiration so was switched to CMV mode. This morning she had a few high peak pressures, patient was given continues nebs with improvement - continue bronchodilators, steroids - continue cefepime, vancomycin and Levaquin per property handler - secretions have improved with Pulmozyme, continue (2) COPD exacerbation: Code(s): J44.1 - Chronic obstructive pulmonary disease with (acute) exacerbation Status: Acute Assessment and Plan: continue mechanical ventilation, ABGs much improved this morning - continue steroids, bronchodilators and antibiotics (3) Hypothyroidism: Code(s): E03.9 - Hypothyroidism, unspecified Status: Acute Assessment and Plan: continue levothyroxine (4) Hypertension: Qualifiers: Hypertension type: unspecified Qualified Code(s): I10 - Essential (primary) hypertension Code(s): I10 - Essential (primary) hypertension Status: Acute Assessment and Plan: history of essential hypertension will hold amlodipine as borderline blood pressures likely secondary to positive pressure ventilation and or infection (5) DVT prophylaxis: Code(s): Z29.9 - Encounter for prophylactic measures, unspecified Status: Acute Assessment and Plan: continue Lovenox Additional Plan discussed with and updated with patient's condition and plan of care. I answered all questions code status: Full code Critical care time spent: 35 minutes This dictation may have been done utilizing a voice recognition system. Attempts have been made to correct errors. However, there may be uncorrected grammatical, spelling, and recognition errors present. Due to a high probability of clinically significant, life threatening deterioration, the patient required my highest level of preparedness to intervene emergently and I personally spent this critical care time directly and personally managing the patient. This critical care time included obtaining a history; examining the patient; pulse oximetry; ordering and review of studies; arranging urgent treatment with development of a management plan; evaluation of patient's response to treatment; frequent reassessment; and discussions with other providers. It was exclusive of separately billable procedures and treating other patients and teaching time. Please see Assessment and Plan section and the rest of the note for further information on patient assessment and treatment Subjective Date/time seen: 12/04/20 11:10 Interval history: Reason for consult: acute hypercapnic respiratory failure, COPD exacerbation 12/04/2020: Patient remains intubated on CMV mode of ventilation, peep of 5, 40% FiO2 with O2 sats. Patient was on pressure support ventilation 02/28 yesterday and started having trouble breathing to place him back on CMV mode of ventilation, overnight she was triggering high peak pressures so adjusted the ventilator. Also sedated the patient. This morning give her a continuous neb. Patient is afebrile, good urine output, hemodynamically stable. sedated with fentanyl and Versed infusion, she does open her eyes and follows simple commands. Review of Systems Review of Systems: ROS unobtainable: Yes unobtainable due to endotracheal tube Exam Const: General: comfortable and no acu
[2020-12-04 13:15] LABS: Add Urine Microscopic? YES; Appearance Urine Cloudy (Clear); Bilirubin Urine Negative (Negative); Blood Urine 2+ (Negative); Color Urine Yellow (Yellow); Glucose Urine UA 1+ mg/dL (Negative); Ketones Urine Trace mg/dL (Negative); Leukocyte Esterase Ur Negative LEU/UL (NEGATIVE); Mucus Urine Rare /lpf; Nitrate Urine Negative (Negative); Protein Urine 1+ mg/dL (Negative); RBC Urine >75 /hpf (0-2); Specific Grav Ur 1.029 (1.001-1.035); Urobilinogen Urine Negative mg/dL (<2.0)
[2020-12-04] MEDS: SODIUM CHLORIDE NASAL GEL 14.1 GM 1 APPLIC NASAL (21:39)
[2020-12-05] VITALS (55 sets, daily range): BP systolic 106–205; BP diastolic 56–180; PULSE 12–124; RESP 11–27; TEMP 36.7–37.2; O2SAT 87–100
[2020-12-05] MEDS: IPRATROPIUM BR 0.02% INH SOLN 0.5 MG/2.5 ML VIAL INHALATION ×7 (00:31→23:00)
[2020-12-05] MEDS: ALBUTEROL SULFATE NEB 2.5 MG/0.5 ML INH INHALATION ×7 (00:31→23:00)
[2020-12-05 03:33] LABS: Hematocrit 32.3 % (37.0-47.0); Hemoglobin 10.3 g/dL (12.0-15.0); Mean Corpuscular HGB Conc 31.9 g/dl (32-36); Mean Corpuscular Hemoglobin 28.4 pg (26-34); Mean Platelet Volume 11.1 fl (7.4-10.4); Platelet Count Result 318 k/mm3 (150-375); Red Blood Count 3.63 M/mm3 (4.2-5.4); Red Cell Distribution Width 15.9 % (11.5-14.5)
[2020-12-05 03:46] LABS: Anion Gap 7 mmol/L (8-16); Blood Urea Nitrogen 38 mg/dL (7-17); Calcium 8.6 mg/dL (8.4-10.2); Carbon Dioxide 28 mmol/L (22-30); Chloride 103 mmol/L (98-107); Estimated CRCL calculation 38 ml/min; Estimated Glomerular Filt Rate > 60; Glucose 217 mg/dL (65-105); Magnesium 2.5 mg/dL (1.6-2.3); Phosphorus 3.7 mg/dL (2.5-4.5); Potassium 4.4 mmol/L (3.4-5.0); Sodium 138 mmol/L (137-145)
[2020-12-05 04:12] LABS: Vancomycin Trough 13.1 ug/mL (10.0-20.0)
[2020-12-05 05:35] LABS: Base Excess ABG 1.5 mEq/l (+/-2.0); Carboxyhemoglobin 0.3 % THb (0-2.0); Fractional Inspired Oxygen 40 %; HCO3 ABG 27.8 mEq/l (22.0-26.0); Methemoglobin ABG 0.2 %THb (0-1.5); Oxygen Content ABG 14.9 %vol (16.0-22.0); Oxygen Saturation ABG 94.4 % (95.0-100.0); Oxyhemoglobin 93.2 % THb (90.0-100.0); PCO2 ABG 51.7 mmHg (35.0-45.0); PO2 ABG 75.7 mmHg (80.0-100.0); PO2 FiO2 Ratio Arterial Blood 1.89 %; Reduced Hemoglobin 6.3 %THb (0-5.0); Total Hemoglobin 11.3 g/dL (12.0-18.0); pH ABG 7.349 (7.350-7.450)
[2020-12-05 05:37] LABS: Modified Allen's Test Unable to perform; Site Drawn LEFT RADIAL
[2020-12-05 05:38] LABS: Arterial Blood Gas Vent Mode CMV; Arterial Blood Gas Ventilator rate 22 /MIN; Device VENTILATOR
[2020-12-05 05:39] LABS: Arterial Blood Gas PEEP 5 cmH2O; Arterial Blood Gas Tidal Volume 360 ml
[2020-12-05] MEDS: methylPREDNISolone SOD SUCC 40 MG VIAL IV PUSH ×3 (06:20→17:34)
[2020-12-05] MEDS: LEVOTHYROXINE SODIUM 50 MCG TABLET PO (06:20)
[2020-12-05] MEDS: BUDESONIDE RESPULE NEB 0.5 MG/2 ML AMP INHALATION ×2 (07:56→19:32)
[2020-12-05] MEDS: ERGOCALCIFEROL 50,000 UNIT CAPSULE 50000 UNITS PO (08:49)
[2020-12-05] MEDS: ASPIRIN 81 MG ENTERIC TABLET PO (08:49)
[2020-12-05] MEDS: MINERAL OIL/WHITE PETROLATUM OINTMENT 1 APPLIC EACH EYE (08:49)
[2020-12-05] MEDS: ENOXAPARIN 40 MG/0.4 ML SYRINGE SUB-Q (08:49)
[2020-12-05] MEDS: ATORVASTATIN 40 MG TABLET PO (08:49)
[2020-12-05] MEDS: CALCIUM CARBONATE (OSCAL) 500 MG TABLET PO (08:49)
[2020-12-05] MEDS: MULTIVITAMINS /C LUTEIN (CENTRUM SILVER) TABLET *BKC 1 TAB PO (08:49)
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
--- NOTE | 2020-12-05 09:57 | WPDINTPN ---
Progress Note: A&P Assessment and Plan (1) Acute hypercapnic respiratory failure: Code(s): J96.02 - Acute respiratory failure with hypercapnia Status: Acute Assessment and Plan: acute hypercapnic respiratory failure likely related to COPD exacerbation and/or pneumonia - patient was intubated on 12/01/2020 - on CMV mode, peep of 5, 40% FiO2, will wean FiO2 to maintain O2 sats greater than 88% as patient has severe emphysema CTA chest - will wean sedation and place patient on SBT and evaluate for extubation. Patient may require BiPAP post extubation - continue bronchodilators, steroids - continue cefepime, vancomycin and Levaquin per barrel dedenting machine operator - secretions have improved with Pulmozyme, continue (2) COPD exacerbation: Code(s): J44.1 - Chronic obstructive pulmonary disease with (acute) exacerbation Status: Acute Assessment and Plan: continue mechanical ventilation, ABGs much improved this morning - continue steroids, bronchodilators and antibiotics (3) Hypothyroidism: Code(s): E03.9 - Hypothyroidism, unspecified Status: Acute Assessment and Plan: continue levothyroxine (4) Hypertension: Qualifiers: Hypertension type: unspecified Qualified Code(s): I10 - Essential (primary) hypertension Code(s): I10 - Essential (primary) hypertension Status: Acute Assessment and Plan: history of essential hypertension will hold amlodipine as borderline blood pressures likely secondary to positive pressure ventilation and or infection (5) DVT prophylaxis: Code(s): Z29.9 - Encounter for prophylactic measures, unspecified Status: Acute Assessment and Plan: continue Lovenox Additional Plan discussed with and updated with patient's condition and plan of care. I answered all questions code status: Full code Critical care time spent: 33 minutes This dictation may have been done utilizing a voice recognition system. Attempts have been made to correct errors. However, there may be uncorrected grammatical, spelling, and recognition errors present. Due to a high probability of clinically significant, life threatening deterioration, the patient required my highest level of preparedness to intervene emergently and I personally spent this critical care time directly and personally managing the patient. This critical care time included obtaining a history; examining the patient; pulse oximetry; ordering and review of studies; arranging urgent treatment with development of a management plan; evaluation of patient's response to treatment; frequent reassessment; and discussions with other providers. It was exclusive of separately billable procedures and treating other patients and teaching time. Please see Assessment and Plan section and the rest of the note for further information on patient assessment and treatment Subjective Date/time seen: 12/05/20 09:58 Interval history: Reason for consult: acute hypercapnic respiratory failure, COPD exacerbation 12/05/2020: Patient seen examined this morning in the ICU. Remains intubated on CMV mode of ventilation, 40% FiO2, peep of 5. Patient is sedated with fentanyl at 100 mcg/hr and Versed 4 mg/L. Patient does open her eyes but does not follow commands. Tolerating tube feeds. Urine output has been adequate, hemodynamically stable. Review of Systems Review of Systems: ROS unobtainable: Yes unobtainable due to endotracheal tube Exam Const: General: comfortable and no acute distress HENMT: Other: ETT in place Eyes: Sclera: sclerae normal Pupils: Equal, round and reactive pupils present Neck: Neck: supple Thyroid: thyroid normal Lymphatic: lymphadenopathy not noted Resp: Effort & Inspection: normal respiratory effort Auscultation: rhonchi and diminished lung sounds Other: Decreased air entry Cardio: Rate: regular rate Rhythm: regular rhythm GI: Inspection:
--- NOTE | 2020-12-05 10:42 | PCFNICU ---
ICU Rounding Note: Pt current nutrition is Glucerna 1.2 at 40 mls per hour over 22 hours per day. Last recorded weight is 68.1 kg. Bowel Motility: + BM 12/01 Labs Reviewed: Hgb 10.3, Hct 32.3, BUN 38, Glu 217 Meds Noted: Albuterol, Norvasc, Lipitor, Drisdol, Lovenox, Oscal, Atrovent Neb, Synthroid, Vancomycin Hcl Additional Notes: Rounded on patient. Patient is beginning to follow commands slowly. She is on Glucerna 1.2 at 40 ml/hour over 22 hours per day with a goal rate of 50 mls per hour. Nurse stated patient had no residuals, tolerating feeding well and planned to bump up to goal rate of 50 mls per hour. Possible extubation. Following daily in ICU rounds. Assessing/Reassessing patient every Saturday/Saturday.
[2020-12-05] MEDS: DORNASE ALFA INH SOLN 1 MG/ML 2.5 ML AMP 2.5 MG INHALATION ×2 (11:46→19:32)
[2020-12-05 14:24] LABS: Alveolar/Arterial O2 Gradient 150.1 mmHg; Base Excess ABG 2.5 mEq/l (+/-2.0); Fractional Inspired Oxygen 40 %; HCO3 ABG 28.6 mEq/l (22.0-26.0); Oxygen Content ABG 15.4 %vol (16.0-22.0); Oxygen Saturation ABG 94.8 % (95.0-100.0); Oxyhemoglobin 93.3 % THb (90.0-100.0); PO2 ABG 76.5 mmHg (80.0-100.0); PO2 FiO2 Ratio Arterial Blood 1.91 %; Total Hemoglobin 11.7 g/dL (12.0-18.0); pH ABG 7.367 (7.350-7.450)
[2020-12-05 14:26] LABS: Modified Allen's Test Pass; Site Drawn RIGHT RADIAL
[2020-12-05 14:27] LABS: Device VENTILATOR
[2020-12-05 14:28] LABS: Arterial Blood Gas PEEP 5 cmH2O; Arterial Blood Gas Vent Mode SPONTANEOUS
[2020-12-05 14:29] LABS: Arterial Blood Gas Pressure Support 8 cmH2O
[2020-12-05] MEDS: LORazepam INJ (*CRX) 2 MG/ML VIAL 0.5 MG IV PUSH (19:18)
--- NOTE | 2020-12-05 19:21 | PC.NURSE ---
c/o inability to breathe. RR - 26 B/P 192/89. blood pressure steadily increasing since 1500. BiPAP applied and breathing treatment administered via respiratory.
[2020-12-05] MEDS: hydrALAZINE HCL 20 MG/ML VIAL IV PUSH (20:02)
[2020-12-05] MEDS: LABETALOL HCL INJ 100 MG/20 ML VIAL 20 MG IV PUSH (21:05)
[2020-12-05] MEDS: methylPREDNISolone SOD SUCC 125 MG VIAL IV PUSH (21:05)
[2020-12-05] MEDS: dexmedeTOMIDine 400 MCG/100 ML 400 MCG/100 ML BAG IV CONT (21:06)
[2020-12-06] VITALS (42 sets, daily range): BP systolic 86–193; BP diastolic 48–121; PULSE 58–94; RESP 13–31; TEMP 35.7–36.9; O2SAT 91–98
[2020-12-06] MEDS: methylPREDNISolone SOD SUCC 40 MG VIAL IV PUSH ×4 (00:31→17:28)
[2020-12-06] MEDS: ALBUTEROL SULFATE NEB 2.5 MG/0.5 ML INH INHALATION ×6 (03:15→23:48)
[2020-12-06] MEDS: IPRATROPIUM BR 0.02% INH SOLN 0.5 MG/2.5 ML VIAL INHALATION ×6 (03:15→23:48)
[2020-12-06] MEDS: LORazepam INJ (*CRX) 2 MG/ML VIAL 0.5 MG IV PUSH ×2 (03:37→10:32)
--- NOTE | 2020-12-06 03:44 | PC.NURSE ---
patient pulling Bi-PAP off I can't breath! Very anxious/restless.
[2020-12-06 04:01] LABS: Hematocrit 36.4 % (37.0-47.0); Hemoglobin 11.2 g/dL (12.0-15.0); Mean Corpuscular HGB Conc 30.8 g/dl (32-36); Mean Corpuscular Hemoglobin 27.9 pg (26-34); Mean Corpuscular Volume 90.8 fl (80-100); Mean Platelet Volume 10.8 fl (7.4-10.4); Platelet Count Result 366 k/mm3 (150-375); Red Blood Count 4.01 M/mm3 (4.2-5.4); Red Cell Distribution Width 15.9 % (11.5-14.5); White Blood Count 26.4 K/mm3 (4.5-10.0)
[2020-12-06 04:13] LABS: Anion Gap 5 mmol/L (8-16); Blood Urea Nitrogen 41 mg/dL (7-17); Calcium 9.1 mg/dL (8.4-10.2); Carbon Dioxide 31 mmol/L (22-30); Chloride 102 mmol/L (98-107); Estimated CRCL calculation 46 ml/min; Estimated Glomerular Filt Rate > 60; Glucose 185 mg/dL (65-105); Magnesium 2.4 mg/dL (1.6-2.3); Phosphorus 4.2 mg/dL (2.5-4.5); Sodium 138 mmol/L (137-145)
[2020-12-06] MEDS: DORNASE ALFA INH SOLN 1 MG/ML 2.5 ML AMP 2.5 MG INHALATION ×2 (08:04→20:12)
[2020-12-06] MEDS: BUDESONIDE RESPULE NEB 0.5 MG/2 ML AMP INHALATION ×2 (08:05→20:11)
[2020-12-06] MEDS: ENOXAPARIN 40 MG/0.4 ML SYRINGE SUB-Q (08:10)
--- NOTE | 2020-12-06 08:56 | WPDINTPN ---
Progress Note: A&P Assessment and Plan (1) Acute hypercapnic respiratory failure: Code(s): J96.02 - Acute respiratory failure with hypercapnia Status: Acute Assessment and Plan: acute hypercapnic respiratory failure likely related to COPD exacerbation and/or pneumonia - patient was intubated on 12/01/2020 and extubated on 12/05 - placed on BiPAP last night And on Precedex drip - fairly drowsy this morning. will check ABG and DC Precedex at this time - Patient has severe emphysema on her CTA chest - continue bronchodilators, steroids - continue cefepime, vancomycin and Levaquin per nitroglycerin supervisor. will deescalate if cultures remain negative by tomorrow - secretions have improved with Pulmozyme, continue (2) COPD exacerbation: Code(s): J44.1 - Chronic obstructive pulmonary disease with (acute) exacerbation Status: Acute Assessment and Plan: continue mechanical ventilation, ABGs much improved this morning - continue steroids, bronchodilators and antibiotics (3) Hypothyroidism: Code(s): E03.9 - Hypothyroidism, unspecified Status: Acute Assessment and Plan: continue levothyroxine (4) Hypertension: Qualifiers: Hypertension type: unspecified Qualified Code(s): I10 - Essential (primary) hypertension Code(s): I10 - Essential (primary) hypertension Status: Acute Assessment and Plan: history of essential hypertension amlodipine (5) DVT prophylaxis: Code(s): Z29.9 - Encounter for prophylactic measures, unspecified Status: Acute Assessment and Plan: continue Lovenox Additional Plan code status: Full code Critical care time spent: 30 minutes This dictation may have been done utilizing a voice recognition system. Attempts have been made to correct errors. However, there may be uncorrected grammatical, spelling, and recognition errors present. Due to a high probability of clinically significant, life threatening deterioration, the patient required my highest level of preparedness to intervene emergently and I personally spent this critical care time directly and personally managing the patient. This critical care time included obtaining a history; examining the patient; pulse oximetry; ordering and review of studies; arranging urgent treatment with development of a management plan; evaluation of patient's response to treatment; frequent reassessment; and discussions with other providers. It was exclusive of separately billable procedures and treating other patients and teaching time. Please see Assessment and Plan section and the rest of the note for further information on patient assessment and treatment Subjective Date/time seen: 12/06/20 08:56 Overnight events reviewed. Afebrile Yesterday evening patient was placed on BiPAP. she was anxious and was given Ativan started on Precedex drip this morning she is fairly drowsy but continues to be on BiPAP. unable to provide any history Vitals acceptable Interval history: Reason for consult: acute hypercapnic respiratory failure, COPD exacerbation Review of Systems Review of Systems: ROS unobtainable: Yes unobtainable due to endotracheal tube Exam Const: General: comfortable and no acute distress HENMT: Other: ETT in place Eyes: Sclera: sclerae normal Pupils: Equal, round and reactive pupils present Neck: Neck: supple Thyroid: thyroid normal Lymphatic: lymphadenopathy not noted Resp: Effort & Inspection: normal respiratory effort Auscultation: rhonchi and diminished lung sounds Other: Decreased air entry Cardio: Rate: regular rate Rhythm: regular rhythm GI: Inspection: non-distended Auscultation: normal bowel sounds : Other: Goddard catheter in place Urinary Catheter: Urinary Catheter: patent and draining and urine clear Skin: General skin exam: normal color and no rashes or lesions noted Neuro: Cranial nerves: Yes Equa
[2020-12-06 09:18] LABS: Alveolar/Arterial O2 Gradient 169.4 mmHg; Base Excess ABG 2.9 mEq/l (+/-2.0); Fractional Inspired Oxygen 45 %; HCO3 ABG 28.7 mEq/l (22.0-26.0); Methemoglobin ABG 0.4 %THb (0-1.5); Oxygen Content ABG 16.9 %vol (16.0-22.0); Oxygen Saturation ABG 97.1 % (95.0-100.0); Oxyhemoglobin 96.3 % THb (90.0-100.0); PCO2 ABG 49.1 mmHg (35.0-45.0); PO2 ABG 95.6 mmHg (80.0-100.0); PO2 FiO2 Ratio Arterial Blood 2.12 %; Reduced Hemoglobin 3.3 %THb (0-5.0); Total Hemoglobin 12.4 g/dL (12.0-18.0)
[2020-12-06 09:20] LABS: Device NON-INVASIVE VENT; Modified Allen's Test Pass; Site Drawn RIGHT RADIAL; pH ABG 7.385 (7.350-7.450)
[2020-12-06 09:21] LABS: Non-Invasive Expiratory Pressure 6 CMH2O; Non-Invasive Inspiratory Pressure 14 CMH2O; Non-Invasive Vent Rate 4 /MIN
--- NOTE | 2020-12-06 11:10 | PCNFU ---
Nutrition Follow-Up Complete: Inadequate oral intake related to COPD exacerbation as evidenced by G-tube placement and NPO diet order. Patient to meet estimated nutritional needs. Progressing towards goal. We will continue current goal. Pt current nutrition is NPO. Nutrition recommendation:advancing diet per MD orders. Last recorded weight is 75.8 kg up from, 68.1 kg on admit. Bowel Motility:+BM reported 12/05 Labs Reviewed:BUN 41,Glu 185,Mg 2.4 Meds Noted:Ativan,SluMedrol.Vancomycin,Lipitor, Aspirin,Lovenox,Precedex,Drisdol. Additional Notes: Nutrition follow up. Patient extubated yesterday. Continuous bipap. Skin: WNL. Plans for patient to to remain NPO, fairly drowsy this morning. Monitor patient's labs, medications, weight, and oral intake every 3 days.
[2020-12-06] MEDS: hydrALAZINE HCL 20 MG/ML VIAL IV PUSH (12:13)
--- NOTE | 2020-12-06 12:53 | WPDPROCEDUR ---
Procedures Intubation Intubation Date: 12/06/20 Intubation Time: 12:00 Consent: A verbal consent was obtained from patient and her who was at bedside A pre-procedural Time-Out was completed immediately before starting the procedure and confirmed: Patient Identification, Site, Procedure, Patient Position and the Availability of Requisite Equipment: Yes Sedative: other ( propofol) Mg given: 80 Paralytic: succinylcholine Mg given: 100 Laryngoscope: fiber optic video scope Assist device used: fiber optic device ET tube size: 7.5 Tube secured depth (cm): 25 Tube secured location: lips Tube placement confirmation: visualized tube passing through cords, equal breath sounds bilaterally, no breath sounds over epigastrium and confirmation by capnometry Patient tolerated procedure: well Intubation complications: none
[2020-12-06] MEDS: FENTANYL 2,500MCG/NS250ML(*CRX 2,500 MCG/250 ML BAG IV CONT (12:59)
[2020-12-06] MEDS: RAPID SEQUENCE INTUBATION KIT 1 EACH (13:01)
--- NOTE | 2020-12-06 13:01 | P.PNCROSS_ITS ---
Event Note Event Note Event Note: Eventually the patient sedation wore off and she became more tachypneic the use of specific muscle. I spoke to patient and she requested to put her back on the ventilator as she was not able to tolerate BiPAP. I did mention that she may need tracheostomy if she goes back on the ventilator and she said she is agreeable to it if needed. I tried resuming Precedex to breathe anxiety constant and give her small dose of Ativan which did not made significant improvement. I spoke to patient's at bedside regarding re- intubation and he was agreeable. Patient was reintubated without any difficulty a placed back on mechanical ventilation. she will be restarted on fentanyl and continued on Precedex infusion for sedation. Chest x-ray reviewed and will withdraw ET tube by 2 cm. Repeat ABGs ordered and pending.
[2020-12-06 13:38] LABS: Alveolar/Arterial O2 Gradient 176.2 mmHg; Base Excess ABG 5.2 mEq/l (+/-2.0); Device VENTILATOR; Fractional Inspired Oxygen 40 %; HCO3 ABG 29.3 mEq/l (22.0-26.0); Modified Allen's Test Pass; Oxygen Content ABG 15.4 %vol (16.0-22.0); Oxygen Saturation ABG 92.8 % (95.0-100.0); Oxyhemoglobin 91.9 % THb (90.0-100.0); PCO2 ABG 41.4 mmHg (35.0-45.0); PO2 ABG 61.4 mmHg (80.0-100.0); PO2 FiO2 Ratio Arterial Blood 1.54 %; Site Drawn RIGHT RADIAL; Total Hemoglobin 11.9 g/dL (12.0-18.0); pH ABG 7.468 (7.350-7.450)
[2020-12-06 13:39] LABS: Arterial Blood Gas PEEP 5 cmH2O; Arterial Blood Gas Tidal Volume 360 ml; Arterial Blood Gas Vent Mode CMV; Arterial Blood Gas Ventilator rate 22 /MIN
[2020-12-06] MEDS: dexmedeTOMIDine 400 MCG/100 ML 400 MCG/100 ML BAG 11.92 MCG IV CONT (13:53)
[2020-12-06] MEDS: LIDOCAINE HCL 1% PF INJ 5 ML VIAL INFILTRATE (14:00)
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
[2020-12-06] MEDS: SODIUM CHLORIDE 0.9% IV 500 ML IV CONT (15:05)
[2020-12-06 17:12] LABS: Vancomycin Trough 19.3 ug/mL (10.0-20.0)
[2020-12-06] MEDS: MINERAL OIL/WHITE PETROLATUM OINTMENT 1 APPLIC EACH EYE (21:25)
[2020-12-06] MEDS: SODIUM CHLORIDE NASAL GEL 14.1 GM 1 APPLIC NASAL (21:25)
[2020-12-06] MEDS: CENTRAL LINE FLUSH 10 ML IV PUSH (21:25)
[2020-12-07] VITALS (51 sets, daily range): BP systolic 90–176; BP diastolic 55–99; PULSE 56–114; RESP 17–33; TEMP 35–37.7; O2SAT 88–98; BMI 27.1
[2020-12-07] MEDS: dexmedeTOMIDine 400 MCG/100 ML 400 MCG/100 ML BAG 8.51 MCG IV CONT ×2 (00:19→11:24)
[2020-12-07] MEDS: methylPREDNISolone SOD SUCC 40 MG VIAL IV PUSH ×3 (00:22→20:25)
[2020-12-07] MEDS: IPRATROPIUM BR 0.02% INH SOLN 0.5 MG/2.5 ML VIAL INHALATION ×6 (04:29→23:09)
[2020-12-07] MEDS: ALBUTEROL SULFATE NEB 2.5 MG/0.5 ML INH INHALATION ×6 (04:29→23:09)
[2020-12-07 05:03] LABS: Alveolar/Arterial O2 Gradient 164.3 mmHg; Base Excess ABG 5.2 mEq/l (+/-2.0); Carboxyhemoglobin 0.3 % THb (0-2.0); Fractional Inspired Oxygen 40 %; HCO3 ABG 30.2 mEq/l (22.0-26.0); Methemoglobin ABG 0.3 %THb (0-1.5); Oxygen Saturation ABG 93.9 % (95.0-100.0); PCO2 ABG 46.2 mmHg (35.0-45.0); PO2 ABG 67.8 mmHg (80.0-100.0); Reduced Hemoglobin 7.4 %THb (0-5.0); Total Hemoglobin 11.6 g/dL (12.0-18.0); pH ABG 7.433 (7.350-7.450)
[2020-12-07 05:04] LABS: Arterial Blood Gas PEEP 5 cmH2O; Arterial Blood Gas Tidal Volume 350 ml; Arterial Blood Gas Vent Mode CMV; Arterial Blood Gas Ventilator rate 18 /MIN; Device VENTILATOR; Modified Allen's Test Unable to perform; Site Drawn LEFT RADIAL
[2020-12-07 05:33] LABS: Hematocrit 31.5 % (37.0-47.0); Mean Corpuscular HGB Conc 31.7 g/dl (32-36); Mean Corpuscular Hemoglobin 28.1 pg (26-34); Mean Corpuscular Volume 88.5 fl (80-100); Mean Platelet Volume 11.1 fl (7.4-10.4); Platelet Count Result 295 k/mm3 (150-375); Red Blood Count 3.56 M/mm3 (4.2-5.4); Red Cell Distribution Width 15.8 % (11.5-14.5); White Blood Count 17.2 K/mm3 (4.5-10.0)
[2020-12-07] MEDS: CENTRAL LINE FLUSH 10 ML IV PUSH ×3 (05:34→21:04)
[2020-12-07] MEDS: LEVOTHYROXINE SODIUM 50 MCG TABLET PO (05:38)
[2020-12-07 05:47] LABS: Anion Gap 3 mmol/L (8-16); Blood Urea Nitrogen 45 mg/dL (7-17); Calcium 8.6 mg/dL (8.4-10.2); Carbon Dioxide 34 mmol/L (22-30); Chloride 99 mmol/L (98-107); Estimated CRCL calculation 48 ml/min; Estimated Glomerular Filt Rate > 60; Glucose 234 mg/dL (65-105); Magnesium 2.3 mg/dL (1.6-2.3); Phosphorus 3.6 mg/dL (2.5-4.5); Potassium 4.3 mmol/L (3.4-5.0); Sodium 136 mmol/L (137-145)
[2020-12-07] MEDS: DORNASE ALFA INH SOLN 1 MG/ML 2.5 ML AMP 2.5 MG INHALATION (07:53)
[2020-12-07] MEDS: BUDESONIDE RESPULE NEB 0.5 MG/2 ML AMP INHALATION ×2 (07:53→19:57)
[2020-12-07] MEDS: ENOXAPARIN 40 MG/0.4 ML SYRINGE SUB-Q (09:16)
[2020-12-07] MEDS: LORazepam INJ (*CRX) 2 MG/ML VIAL 1 MG IV PUSH ×3 (09:16→21:00)
[2020-12-07] MEDS: CALCIUM CARBONATE (OSCAL) 500 MG TABLET PO ×2 (09:16→16:37)
[2020-12-07] MEDS: MINERAL OIL/WHITE PETROLATUM OINTMENT 1 APPLIC EACH EYE ×2 (09:16→20:25)
[2020-12-07] MEDS: ATORVASTATIN 40 MG TABLET PO (09:16)
[2020-12-07] MEDS: MULTIVITAMINS /C LUTEIN (CENTRUM SILVER) TABLET *BKC 1 TAB PO (09:16)
[2020-12-07] MEDS: ASPIRIN 81 MG ENTERIC TABLET PO (09:16)
--- NOTE | 2020-12-07 09:35 | WPDINTPN ---
Progress Note: A&P Assessment and Plan (1) Acute hypercapnic respiratory failure: Code(s): J96.02 - Acute respiratory failure with hypercapnia Status: Acute Assessment and Plan: acute hypercapnic respiratory failure likely related to COPD exacerbation and/or pneumonia - patient was intubated on 12/01/2020 and extubated on 12/05. She was placed on BiPAP in the evening which she did not tolerate. Patient was tried with Ativan and Precedex drip to treat her anxiety with no help - 12/06 patient was reintubated to worsening respiratory distress and she would not tolerate BiPAP without significantly sedation. - chest x-ray and ABG reviewed. decrease tidal volume to 320 - Patient has severe emphysema on her CTA chest and minimal bilateral air movement - continue bronchodilators, steroids - I will continue Levaquin but discontinue vancomycin and cefepime at this time as cultures have been negative. I did talk to patient before re-intubation regarding the fact that she may need tracheostomy and both patient and her were agreeable. I think it is going to be very difficult weaning from the vent specially with the fact that she does not tolerate BiPAP unless she is heavily sedated which obviously is not a long-term solution. Considering her severity of COPD she will be very difficult wean anyone when she get extubated she may need noninvasive positive-pressure ventilation which she does not tolerate due to anxiety and claustrophobia (2) COPD exacerbation: Code(s): J44.1 - Chronic obstructive pulmonary disease with (acute) exacerbation Status: Acute Assessment and Plan: continue mechanical ventilation, ABGs much improved this morning - continue steroids, bronchodilators and antibiotics (3) Hypothyroidism: Code(s): E03.9 - Hypothyroidism, unspecified Status: Acute Assessment and Plan: continue levothyroxine (4) Hypertension: Qualifiers: Hypertension type: unspecified Qualified Code(s): I10 - Essential (primary) hypertension Code(s): I10 - Essential (primary) hypertension Status: Acute Assessment and Plan: history of essential hypertension patient's blood pressure fluctuates with sedation hence p.o. amlodipine is on hold continue p.r.n. hydralazine IV (5) DVT prophylaxis: Code(s): Z29.9 - Encounter for prophylactic measures, unspecified Status: Acute Assessment and Plan: continue Lovenox Additional Plan DVT prophylaxis - Lovenox Stress ulcer prophylaxis - IV Pepcid Nutrition - start Tube Feeds Code Status - Full Code Critical care time spent: 31 minutes This dictation may have been done utilizing a voice recognition system. Attempts have been made to correct errors. However, there may be uncorrected grammatical, spelling, and recognition errors present. Due to a high probability of clinically significant, life threatening deterioration, the patient required my highest level of preparedness to intervene emergently and I personally spent this critical care time directly and personally managing the patient. This critical care time included obtaining a history; examining the patient; pulse oximetry; ordering and review of studies; arranging urgent treatment with development of a management plan; evaluation of patient's response to treatment; frequent reassessment; and discussions with other providers. It was exclusive of separately billable procedures and treating other patients and teaching time. Please see Assessment and Plan section and the rest of the note for further information on patient assessment and treatment Subjective Date/time seen: 12/07/20 09:35 Patient was reintubated yesterday due to worsening respiratory distress. Overnight events reviewed. Afebrile Continues to be on mechanical ventilation Blood pressure fluctuates depending on her sedation level Vitals acceptable She is arousable and stat
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
--- NOTE | 2020-12-07 11:32 | PCFNICU ---
ICU Rounding Note: Pt current nutrition is Jevity 1.2 at 20 ml/hr . Nutrition recommendation: Jevity 1.2 goal rate at 50 ml/hr over 22 hours. Last recorded weight is 71.8kg. Bowel Motility:+BM reported 12/05 Labs Reviewed:Glu 234, BUN 45, Na 136,Hct 31.5, Hgb 10.2 Meds Noted:Precedex, Ativan, Synthroid, Fentanyl, Drisdol, Lipitor, Centrum Silver. Additional Notes: Patient seen today during ICU rounds. Patient was reintubated yesterday. Tube feeding started at 20 ml/hr of Jevity 1.2. Tube feeding goal rate at 50 ml/hr over 22 hours will provide 1320 kcals/61 gms protein. Skin: WNL Following daily in ICU rounds. Assessing/reassessing ever Saturday and Saturday.
[2020-12-07] MEDS: FENTANYL 2,500MCG/NS250ML(*CRX 2,500 MCG/250 ML BAG 7.5 MCG IV CONT (12:50)
[2020-12-07] MEDS: FAMOTIDINE 20 MG/2 ML VIAL IV PUSH (20:25)
[2020-12-07] MEDS: SODIUM CHLORIDE NASAL GEL 14.1 GM 1 APPLIC NASAL (20:26)
[2020-12-07] MEDS: dexmedeTOMIDine 400 MCG/100 ML 400 MCG/100 ML BAG 10.22 MCG IV CONT (22:32)
[2020-12-08] VITALS (59 sets, daily range): BP systolic 59–177; BP diastolic 40–81; PULSE 65–125; RESP 11–30; TEMP 36.7–37.7; O2SAT 90–99
[2020-12-08] MEDS: ALBUTEROL SULFATE NEB 2.5 MG/0.5 ML INH INHALATION ×6 (03:39→23:21)
[2020-12-08] MEDS: IPRATROPIUM BR 0.02% INH SOLN 0.5 MG/2.5 ML VIAL INHALATION ×6 (03:40→23:21)
[2020-12-08 04:39] LABS: Alveolar/Arterial O2 Gradient 196.7 mmHg; Base Excess ABG 4.4 mEq/l (+/-2.0); Carboxyhemoglobin 0.3 % THb (0-2.0); Fractional Inspired Oxygen 45 %; HCO3 ABG 29.5 mEq/l (22.0-26.0); Methemoglobin ABG 0.3 %THb (0-1.5); Oxygen Content ABG 15.1 %vol (16.0-22.0); Oxygen Saturation ABG 94.5 % (95.0-100.0); Oxyhemoglobin 92.5 % THb (90.0-100.0); PCO2 ABG 46.6 mmHg (35.0-45.0); PO2 ABG 71.1 mmHg (80.0-100.0); PO2 FiO2 Ratio Arterial Blood 1.58 %; Reduced Hemoglobin 6.9 %THb (0-5.0); Total Hemoglobin 11.6 g/dL (12.0-18.0)
[2020-12-08 04:40] LABS: Arterial Blood Gas Ventilator rate 18 /MIN; Device VENTILATOR; Modified Allen's Test Unable to perform; Site Drawn LEFT RADIAL
[2020-12-08 04:41] LABS: Arterial Blood Gas PEEP 5 cmH2O; Arterial Blood Gas Tidal Volume 320 ml; Arterial Blood Gas Vent Mode CMV
[2020-12-08 05:35] LABS: Alanine Aminotransferase 26 U/L (4-35); Albumin Level 2.9 g/dL (3.5-5.1); Alkaline Phosphatase 74 U/L (38-126); Anion Gap 3 mmol/L (8-16); Aspartate Amino Transferase 20 U/L (14-36); Bilirubin,Total 0.2 mg/dL (0.2-1.3); Blood Urea Nitrogen 47 mg/dL (7-17); Calcium 8.4 mg/dL (8.4-10.2); Carbon Dioxide 33 mmol/L (22-30); Chloride 99 mmol/L (98-107); Estimated CRCL calculation 42 ml/min; Estimated Glomerular Filt Rate > 60; Glucose 276 mg/dL (65-105); Magnesium 2.3 mg/dL (1.6-2.3); Phosphorus 3.5 mg/dL (2.5-4.5); Potassium 4.5 mmol/L (3.4-5.0); Sodium 135 mmol/L (137-145)
[2020-12-08 05:36] LABS: Basophils Percent Auto 0.2 % (0.2-1.2); Eosinophils Percent Auto 0.2 % (0-4.4); Hematocrit 32.6 % (37.0-47.0); Hemoglobin 10.2 g/dL (12.0-15.0); Immature Granulocyte Percent A 1.5 % (0-0.5); Lymphocytes Absolute Auto 1.03 K/mm3 (0.9-3.2); Mean Corpuscular HGB Conc 31.3 g/dl (32-36); Mean Corpuscular Hemoglobin 27.6 pg (26-34); Mean Corpuscular Volume 88.3 fl (80-100); Mean Platelet Volume 11.3 fl (7.4-10.4); Monocytes Absolute Auto 1.6 K/mm3 (0.1-0.6); Monocytes Percent Auto 7.6 % (2.6-8.5); Neutrophils Absolute Auto 17.7 K/mm3 (1.3-6.7); Neutrophils Percent Auto 85.5 % (45.5-73.1); Platelet Count Result 331 k/mm3 (150-375); Red Blood Count 3.69 M/mm3 (4.2-5.4); Red Cell Distribution Width 15.7 % (11.5-14.5); White Blood Count 20.7 K/mm3 (4.5-10.0)
[2020-12-08] MEDS: LEVOTHYROXINE SODIUM 50 MCG TABLET PO (05:36)
[2020-12-08] MEDS: CENTRAL LINE FLUSH 10 ML IV PUSH ×3 (05:36→20:47)
[2020-12-08] MEDS: BUDESONIDE RESPULE NEB 0.5 MG/2 ML AMP INHALATION ×2 (07:42→20:24)
[2020-12-08] MEDS: SODIUM CHLORIDE 0.9% IV 500 ML IV CONT (08:03)
[2020-12-08] MEDS: SODIUM CHLORIDE 0.9% IV 1,000 ML 100 ML IV CONT (08:05)
[2020-12-08] MEDS: MINERAL OIL/WHITE PETROLATUM OINTMENT 1 APPLIC EACH EYE ×2 (08:06→20:47)
[2020-12-08] MEDS: ENOXAPARIN 40 MG/0.4 ML SYRINGE SUB-Q (08:06)
[2020-12-08] MEDS: CALCIUM CARBONATE (OSCAL) 500 MG TABLET PO ×2 (08:06→16:39)
[2020-12-08] MEDS: FAMOTIDINE 20 MG/2 ML VIAL IV PUSH ×2 (08:06→20:47)
[2020-12-08] MEDS: ATORVASTATIN 40 MG TABLET PO (08:06)
[2020-12-08] MEDS: MULTIVITAMINS /C LUTEIN (CENTRUM SILVER) TABLET *BKC 1 TAB PO (08:06)
[2020-12-08] MEDS: methylPREDNISolone SOD SUCC 40 MG VIAL IV PUSH ×2 (08:07→20:47)
[2020-12-08] MEDS: ASPIRIN 81 MG ENTERIC TABLET PO (08:07)
[2020-12-08 08:09] LABS: Glucose Point of Care 144 mg/dl (65-105)
--- NOTE | 2020-12-08 09:14 | WPDINTPN ---
Progress Note: A&P Assessment and Plan (1) Acute hypercapnic respiratory failure: Code(s): J96.02 - Acute respiratory failure with hypercapnia Status: Acute Assessment and Plan: acute hypercapnic respiratory failure likely related to COPD exacerbation and/or pneumonia - patient was intubated on 12/01/2020 and extubated on 12/05. She was placed on BiPAP in the evening which she did not tolerate. Patient was tried with Ativan and Precedex drip to treat her anxiety with no help - 12/06 patient was reintubated to worsening respiratory distress and she would not tolerate BiPAP without significantly sedation. - chest x-ray and ABG reviewed. - Patient has severe emphysema on her CTA chest and minimal bilateral air movement - continue bronchodilators, steroids - Continue Levaquin. 12/07 discontinued vancomycin and cefepime as cultures have been negative. - I wanted to attempt taper weaning trial today but on holding sedation patient quickly became tachypneic and in respiratory distress. she became dysynchronous with the ventilator. patient had to be re sedated - I did talk to patient before re-intubation regarding the fact that she may need tracheostomy and both patient and her were agreeable. I think it is going to be very difficult weaning from the vent specially with the fact that she does not tolerate BiPAP unless she is heavily sedated which obviously is not a long-term solution. Considering her severity of COPD she will be very difficult wean and even when she gets extubated she may need noninvasive positive-pressure ventilation which she does not tolerate due to anxiety and claustrophobia (2) COPD exacerbation: Code(s): J44.1 - Chronic obstructive pulmonary disease with (acute) exacerbation Status: Acute Assessment and Plan: continue mechanical ventilation, ABGs much improved this morning - continue steroids, bronchodilators and antibiotics - wean down steroid dose (3) Hypothyroidism: Code(s): E03.9 - Hypothyroidism, unspecified Status: Acute Assessment and Plan: continue levothyroxine (4) Hypertension: Qualifiers: Hypertension type: unspecified Qualified Code(s): I10 - Essential (primary) hypertension Code(s): I10 - Essential (primary) hypertension Status: Acute Assessment and Plan: history of essential hypertension patient's blood pressure fluctuates with sedation hence p.o. amlodipine is on hold continue p.r.n. hydralazine IV (5) DVT prophylaxis: Code(s): Z29.9 - Encounter for prophylactic measures, unspecified Status: Acute Assessment and Plan: continue Lovenox (6) Oliguria: Code(s): R34 - Anuria and oliguria Status: Acute Assessment and Plan: will give some IV fluids (7) Hyperglycemia: Code(s): R73.9 - Hyperglycemia, unspecified Status: Acute Assessment and Plan: likely secondary to steroids add sliding scale insulin Additional Plan DVT prophylaxis - Lovenox Stress ulcer prophylaxis - IV Pepcid Nutrition - continue Tube Feeds Code Status - Full Code Critical care time spent: 32 minutes This dictation may have been done utilizing a voice recognition system. Attempts have been made to correct errors. However, there may be uncorrected grammatical, spelling, and recognition errors present. Due to a high probability of clinically significant, life threatening deterioration, the patient required my highest level of preparedness to intervene emergently and I personally spent this critical care time directly and personally managing the patient. This critical care time included obtaining a history; examining the patient; pulse oximetry; ordering and review of studies; arranging urgent treatment with development of a management plan; evaluation of patient's response to treatment; frequent reassessment; and discussions with other providers. It was exclu
[2020-12-08] MEDS: FENTANYL 2,500MCG/NS250ML(*CRX 2,500 MCG/250 ML BAG 12.5 MCG IV CONT (09:46)
[2020-12-08] MEDS: dexmedeTOMIDine 400 MCG/100 ML 400 MCG/100 ML BAG 8.51 MCG IV CONT (09:47)
[2020-12-08] MEDS: MIDAZOLAM 100MG/NS 100ML(*CRX) 100 MG/100 ML BAG IV CONT (10:30)
[2020-12-08] MEDS: polyethylene glycoL 3350 17 GM POWD.PACK PO (10:30)
--- NOTE | 2020-12-08 11:01 | PCFNICU ---
Addendum entered by Catie Bernardo RD, LDN 12/08/20 11:15: Correction: Tube feedings are at 50 ml/hr over 22 hours. Patient is at goal rate and tolerating. Miralax has been given today due to No BM reported. Original Note: ICU Rounding Note: Pt current nutrition is Jevity 1.2 at 50 ml/hr over 22 hours. Last recorded weight is 71 kg, up from 68.1 kg. Bowel Motility:NO BM reported. Labs Reviewed:Na 135, Alb 2.9,Glu 276,Hgb 10.2,Hct 32.6 Meds Noted:Miralax,NS, Fentanyl,Oscal,Ativan,Drisdol, Lipitor, Aspirin, Lovenox, Pepcid,NS, Versed. Additional Notes: Patient remains on a mechanical vent. tube feedings of Jevity 1.2 at 40 ml/hr plans to increase to goal rate of 50 ml/hr today. Goal rate tube feedings will provide patient with 1320 kcals and 61 gms protein. NO BM reported-Miralax given today. Following daily in ICU rounds. Assessing/reassessing every Saturday and Saturday.
[2020-12-08] MEDS: NOREPINEPHRINE 8 MG/D5W 250 ML 8 MG/250 ML BAG 9.38 MG IV CONT (12:00)
[2020-12-08] MEDS: INSULIN ASPART (*BKC) 100 UNITS/ML SUB-Q ×3 (12:03→23:28)
[2020-12-08 12:04] LABS: Glucose Point of Care 260 mg/dl (65-105)
[2020-12-08] MEDS: LORazepam INJ (*CRX) 2 MG/ML VIAL 1 MG IV PUSH (16:40)
[2020-12-08 18:00] LABS: Glucose Point of Care 207 mg/dl (65-105)
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
[2020-12-08] MEDS: SODIUM CHLORIDE NASAL GEL 14.1 GM 1 APPLIC NASAL (20:47)
[2020-12-08 23:27] LABS: Glucose Point of Care 216 mg/dl (65-105)
[2020-12-09] VITALS (44 sets, daily range): BP systolic 82–142; BP diastolic 48–81; PULSE 70–115; RESP 12–91; TEMP 37.3–37.7; O2SAT 18–97
[2020-12-09] MEDS: FENTANYL 2,500MCG/NS250ML(*CRX 2,500 MCG/250 ML BAG 10 MCG IV CONT (02:38)
[2020-12-09] MEDS: IPRATROPIUM BR 0.02% INH SOLN 0.5 MG/2.5 ML VIAL INHALATION ×5 (03:28→20:29)
[2020-12-09] MEDS: ALBUTEROL SULFATE NEB 2.5 MG/0.5 ML INH INHALATION ×5 (03:28→20:29)
[2020-12-09 04:48] LABS: Basophils Absolute Auto 0.1 K/mm3 (0.0-0.1); Basophils Percent Auto 0.2 % (0.2-1.2); Eosinophils Percent Auto 0.2 % (0-4.4); Hematocrit 31.3 % (37.0-47.0); Hemoglobin 10.2 g/dL (12.0-15.0); Immature Granulocyte Absolute 0.42 K/mm3 (0.00-0.031); Immature Granulocyte Percent A 1.6 % (0-0.5); Lymphocytes Absolute Auto 1.42 K/mm3 (0.9-3.2); Lymphocytes Percent Auto 5.6 % (18.3-44.2); Mean Corpuscular HGB Conc 32.6 g/dl (32-36); Mean Corpuscular Hemoglobin 28.1 pg (26-34); Mean Corpuscular Volume 86.2 fl (80-100); Mean Platelet Volume 10.7 fl (7.4-10.4); Monocytes Absolute Auto 1.8 K/mm3 (0.1-0.6); Neutrophils Absolute Auto 21.7 K/mm3 (1.3-6.7); Neutrophils Percent Auto 85.4 % (45.5-73.1); Nucleated Red Blood Cells Perc 0.1 % (0.0-0.2); Platelet Count Result 348 k/mm3 (150-375); Red Blood Count 3.63 M/mm3 (4.2-5.4); Red Cell Distribution Width 15.6 % (11.5-14.5); White Blood Count 25.5 K/mm3 (4.5-10.0)
[2020-12-09 04:48] LABS: Alveolar/Arterial O2 Gradient 197.7 mmHg; Base Excess ABG 5.4 mEq/l (+/-2.0); Carboxyhemoglobin 0.3 % THb (0-2.0); Device VENTILATOR; Fractional Inspired Oxygen 45 %; HCO3 ABG 30.7 mEq/l (22.0-26.0); Methemoglobin ABG 0.3 %THb (0-1.5); Modified Allen's Test Unable to perform; Oxygen Content ABG 15.1 %vol (16.0-22.0); Oxygen Saturation ABG 93.9 % (95.0-100.0); Oxyhemoglobin 92.4 % THb (90.0-100.0); PCO2 ABG 48.1 mmHg (35.0-45.0); PO2 ABG 68.4 mmHg (80.0-100.0); PO2 FiO2 Ratio Arterial Blood 1.52 %; Site Drawn LEFT RADIAL; Total Hemoglobin 11.6 g/dL (12.0-18.0); pH ABG 7.423 (7.350-7.450)
[2020-12-09 04:49] LABS: Arterial Blood Gas PEEP 5 cmH2O; Arterial Blood Gas Tidal Volume 320 ml; Arterial Blood Gas Vent Mode CMV; Arterial Blood Gas Ventilator rate 18 /MIN
[2020-12-09 05:01] LABS: Alanine Aminotransferase 32 U/L (4-35); Albumin Level 3.1 g/dL (3.5-5.1); Alkaline Phosphatase 80 U/L (38-126); Anion Gap 4 mmol/L (8-16); Aspartate Amino Transferase 18 U/L (14-36); Bilirubin,Total 0.4 mg/dL (0.2-1.3); Blood Urea Nitrogen 37 mg/dL (7-17); Calcium 8.3 mg/dL (8.4-10.2); Carbon Dioxide 32 mmol/L (22-30); Chloride 99 mmol/L (98-107); Estimated CRCL calculation 42 ml/min; Estimated Glomerular Filt Rate > 60; Glucose 245 mg/dL (65-105); Potassium 4.7 mmol/L (3.4-5.0); Sodium 135 mmol/L (137-145)
[2020-12-09] MEDS: INSULIN ASPART (*BKC) 100 UNITS/ML SUB-Q ×2 (06:02→23:35)
[2020-12-09] MEDS: CENTRAL LINE FLUSH 10 ML IV PUSH ×3 (06:02→21:07)
[2020-12-09 06:03] LABS: Glucose Point of Care 236 mg/dl (65-105)
[2020-12-09] MEDS: LEVOTHYROXINE SODIUM 50 MCG TABLET PO (06:14)
--- NOTE | 2020-12-09 08:29 | WPDINTPN ---
Progress Note: A&P Assessment and Plan (1) Acute hypercapnic respiratory failure: Code(s): J96.02 - Acute respiratory failure with hypercapnia Status: Acute Assessment and Plan: acute hypercapnic respiratory failure likely related to COPD exacerbation and/or pneumonia - patient was intubated on 12/01/2020 and extubated on 12/05. She was placed on BiPAP in the evening which she did not tolerate. Patient was tried with Ativan and Precedex drip to treat her anxiety with no help - 12/06 patient was reintubated to worsening respiratory distress and she would not tolerate BiPAP without significantly sedation. - chest x-ray and ABG reviewed. - Patient has severe emphysema on her CTA chest and minimal bilateral air movement - continue bronchodilators, steroids - Continue Levaquin. 12/07 discontinued vancomycin and cefepime as cultures have been negative. - she has failed attempts for weaning as she becomes quickly tachypneic dyssynchronous with the ventilator and develops respiratory distress on holding sedation. - Will try again today - prior to re-intubation, I did talk to patient regarding the fact that she may need tracheostomy and both patient and her were agreeable. I think it is going to be very difficult weaning from the vent specially with the fact that she does not tolerate BiPAP unless she is heavily sedated which obviously is not a long-term solution. Considering her severity of COPD she will be very difficult wean and even when she gets extubated she may need noninvasive positive-pressure ventilation which she does not tolerate due to anxiety and claustrophobia (2) COPD exacerbation: Code(s): J44.1 - Chronic obstructive pulmonary disease with (acute) exacerbation Status: Acute Assessment and Plan: continue mechanical ventilation, ABGs much improved this morning - continue steroids, bronchodilators and antibiotics - wean down steroid dose (3) Hypothyroidism: Code(s): E03.9 - Hypothyroidism, unspecified Status: Acute Assessment and Plan: continue levothyroxine (4) DVT prophylaxis: Code(s): Z29.9 - Encounter for prophylactic measures, unspecified Status: Acute Assessment and Plan: continue Lovenox (5) Hyperglycemia: Code(s): R73.9 - Hyperglycemia, unspecified Status: Acute Assessment and Plan: likely secondary to steroids add sliding scale insulin add Lantus (6) Hypotension: Code(s): I95.9 - Hypotension, unspecified Status: Acute Assessment and Plan: patient's blood pressure is highly variable. When adequately sedated patient is blood pressure is low and despite fluid bolus was not at satisfactory levels. And she temporarily needed Levophed infusion for few hours yesterday. When off sedation she is hypertensive. Precedex was switched to worsen. Continue Levophed as needed. home Blood pressure medications are on hold Additional Plan DVT prophylaxis - Lovenox Stress ulcer prophylaxis - IV Pepcid Nutrition - continue Tube Feeds Code Status - Full Code Critical care time spent: 30 minutes This dictation may have been done utilizing a voice recognition system. Attempts have been made to correct errors. However, there may be uncorrected grammatical, spelling, and recognition errors present. Due to a high probability of clinically significant, life threatening deterioration, the patient required my highest level of preparedness to intervene emergently and I personally spent this critical care time directly and personally managing the patient. This critical care time included obtaining a history; examining the patient; pulse oximetry; ordering and review of studies; arranging urgent treatment with development of a management plan; evaluation of patient's response to treatment; frequent reassessment; and discussions with other providers. It was exclusive of separately billable proced
[2020-12-09] MEDS: BUDESONIDE RESPULE NEB 0.5 MG/2 ML AMP INHALATION (08:51)
[2020-12-09] MEDS: INSULIN GLARGINE (*BKC) 100 UNITS/ML 15 UNITS SUB-Q (09:02)
[2020-12-09] MEDS: ASPIRIN 81 MG ENTERIC TABLET PO (09:03)
[2020-12-09] MEDS: ATORVASTATIN 40 MG TABLET PO (09:03)
[2020-12-09] MEDS: MULTIVITAMINS /C LUTEIN (CENTRUM SILVER) TABLET *BKC 1 TAB PO (09:03)
[2020-12-09] MEDS: MINERAL OIL/WHITE PETROLATUM OINTMENT 1 APPLIC EACH EYE ×2 (09:03→21:02)
[2020-12-09] MEDS: CALCIUM CARBONATE (OSCAL) 500 MG TABLET PO ×2 (09:03→17:34)
[2020-12-09] MEDS: ENOXAPARIN 40 MG/0.4 ML SYRINGE SUB-Q (09:03)
[2020-12-09] MEDS: FAMOTIDINE 20 MG/2 ML VIAL IV PUSH ×2 (09:03→21:03)
[2020-12-09] MEDS: methylPREDNISolone SOD SUCC 40 MG VIAL IV PUSH ×2 (09:03→21:06)
[2020-12-09] MEDS: LORazepam INJ (*CRX) 2 MG/ML VIAL 1 MG IV PUSH (09:13)
[2020-12-09] MEDS: polyethylene glycoL 3350 17 GM POWD.PACK PO (09:15)
--- NOTE | 2020-12-09 10:46 | PCNFU ---
Nutrition Follow-Up Complete: Inadequate oral intake related to COPD exacerbation as evidenced by G-tube placement and NPO diet order. Goal: Patient to meet estimated nutritional needs. Progressing towards goal. We will continue current goal. Pt current nutrition is Jevity 1.2 at 50 ml/hr over 22 hours. Last recorded weight is 73.4 kg, up from 68.1 kg on admit. Bowel Motility:NO BMI reported since 12/05 Labs Reviewed:Glu 245,BUN 37,Na 135,Alb 3.1,Hct 31.3,Hgb 10.2 Meds Noted:Miralax, Levophed, Lovenox, Oscal, Albuterol, Levaquin,Solu Medrol, Ativan,Versed,Centrum. Additional Notes:Nutrition follow up. Patient remains on mechanical vent. Tube feeding remain at 50 ml/hr of Jevity 1.2 over 22 hours. Spoke with nursing today, tube feedings are being tolerating. Current feeding is providing patient with 1320 kcals and 61 gms protein. Agree with current diet orders. Monitor patient's labs, medications, weight, tube feedings every Saturday and Saturday.
[2020-12-09 12:56] LABS: Glucose Point of Care 194 mg/dl (65-105)
[2020-12-09 17:33] LABS: Glucose Point of Care 178 mg/dl (65-105)
[2020-12-09] MEDS: MIDAZOLAM 100MG/NS 100ML(*CRX) 100 MG/100 ML BAG IV CONT (17:34)
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
[2020-12-09] MEDS: SODIUM CHLORIDE NASAL GEL 14.1 GM 1 APPLIC NASAL (21:07)
[2020-12-09 23:37] LABS: Glucose Point of Care 218 mg/dl (65-105)
[2020-12-10] VITALS (32 sets, daily range): BP systolic 109–138; BP diastolic 51–79; PULSE 75–100; RESP 11–19; TEMP 37.2–37.6; O2SAT 91–99
[2020-12-10] MEDS: ALBUTEROL SULFATE NEB 2.5 MG/0.5 ML INH INHALATION ×5 (00:16→20:12)
[2020-12-10] MEDS: FENTANYL 2,500MCG/NS250ML(*CRX 2,500 MCG/250 ML BAG 10 MCG IV CONT (03:46)
[2020-12-10] MEDS: IPRATROPIUM BR 0.02% INH SOLN 0.5 MG/2.5 ML VIAL INHALATION ×4 (04:27→20:11)
[2020-12-10 05:05] LABS: Alveolar/Arterial O2 Gradient 155.2 mmHg; Base Excess ABG 4.4 mEq/l (+/-2.0); Carboxyhemoglobin 0.2 % THb (0-2.0); Fractional Inspired Oxygen 45 %; HCO3 ABG 29.4 mEq/l (22.0-26.0); Methemoglobin ABG 0.2 %THb (0-1.5); Oxygen Content ABG 14.9 %vol (16.0-22.0); Oxygen Saturation ABG 98.2 % (95.0-100.0); Oxyhemoglobin 96.8 % THb (90.0-100.0); PCO2 ABG 45.6 mmHg (35.0-45.0); PO2 ABG 113.8 mmHg (80.0-100.0); PO2 FiO2 Ratio Arterial Blood 2.53 %; Reduced Hemoglobin 2.8 %THb (0-5.0); Total Hemoglobin 10.8 g/dL (12.0-18.0); pH ABG 7.427 (7.350-7.450)
[2020-12-10 05:06] LABS: Modified Allen's Test Unable to perform; Site Drawn LEFT RADIAL
[2020-12-10 05:07] LABS: Arterial Blood Gas Vent Mode CMV; Device VENTILATOR
[2020-12-10 05:08] LABS: Arterial Blood Gas PEEP 5 cmH2O
[2020-12-10 05:09] LABS: Arterial Blood Gas Tidal Volume 320 ml; Arterial Blood Gas Ventilator rate 16 /MIN
--- NOTE | 2020-12-10 05:53 | PCRCNOTE ---
Window of time for administration has passed. See next scheduled administration.
[2020-12-10] MEDS: CENTRAL LINE FLUSH 10 ML IV PUSH ×3 (06:29→20:30)
[2020-12-10 06:32] LABS: Hematocrit 31.6 % (37.0-47.0); Mean Corpuscular HGB Conc 31.6 g/dl (32-36); Mean Corpuscular Hemoglobin 27.5 pg (26-34); Mean Corpuscular Volume 87.1 fl (80-100); Mean Platelet Volume 11.4 fl (7.4-10.4); Platelet Count Result 337 k/mm3 (150-375); Red Blood Count 3.63 M/mm3 (4.2-5.4); Red Cell Distribution Width 15.9 % (11.5-14.5)
[2020-12-10 06:44] LABS: Alanine Aminotransferase 37 U/L (4-35); Alkaline Phosphatase 69 U/L (38-126); Anion Gap 3 mmol/L (8-16); Aspartate Amino Transferase 19 U/L (14-36); Bilirubin,Total 0.4 mg/dL (0.2-1.3); Blood Urea Nitrogen 38 mg/dL (7-17); Calcium 8.2 mg/dL (8.4-10.2); Carbon Dioxide 34 mmol/L (22-30); Chloride 98 mmol/L (98-107); Estimated CRCL calculation 48 ml/min; Estimated Glomerular Filt Rate > 60; Glucose 200 mg/dL (65-110); Potassium 5.4 mmol/L (3.4-5.0); Sodium 135 mmol/L (137-145)
[2020-12-10] MEDS: LEVOTHYROXINE SODIUM 50 MCG TABLET PO (07:04)
[2020-12-10 07:10] LABS: Glucose Point of Care 196 mg/dl (65-105)
[2020-12-10 07:18] LABS: Vancomycin Trough 5.2 ug/mL (10.0-20.0)
[2020-12-10] MEDS: ASPIRIN 81 MG ENTERIC TABLET PO (08:09)
[2020-12-10] MEDS: CALCIUM CARBONATE (OSCAL) 500 MG TABLET PO ×2 (08:09→17:14)
[2020-12-10] MEDS: MULTIVITAMINS /C LUTEIN (CENTRUM SILVER) TABLET *BKC 1 TAB PO (08:10)
[2020-12-10] MEDS: ENOXAPARIN 40 MG/0.4 ML SYRINGE SUB-Q (08:10)
[2020-12-10] MEDS: ATORVASTATIN 40 MG TABLET PO (08:10)
[2020-12-10] MEDS: FAMOTIDINE 20 MG/2 ML VIAL IV PUSH ×2 (08:10→20:29)
[2020-12-10] MEDS: INSULIN GLARGINE (*BKC) 100 UNITS/ML 15 UNITS SUB-Q (08:11)
[2020-12-10] MEDS: methylPREDNISolone SOD SUCC 40 MG VIAL IV PUSH (08:12)
[2020-12-10] MEDS: polyethylene glycoL 3350 17 GM POWD.PACK PO (08:13)
[2020-12-10] MEDS: MINERAL OIL/WHITE PETROLATUM OINTMENT 1 APPLIC EACH EYE ×2 (08:30→20:29)
[2020-12-10 08:35] LABS: Glucose Point of Care 219 mg/dl (65-105)
[2020-12-10] MEDS: BUDESONIDE RESPULE NEB 0.5 MG/2 ML AMP INHALATION ×2 (09:17→20:12)
--- NOTE | 2020-12-10 09:18 | WPDINTPN ---
Progress Note: A&P Assessment and Plan (1) Acute hypercapnic respiratory failure: Code(s): J96.02 - Acute respiratory failure with hypercapnia Status: Acute Assessment and Plan: acute hypercapnic respiratory failure likely related to COPD exacerbation and/or pneumonia - patient was intubated on 12/01/2020 and extubated on 12/05. She was placed on BiPAP in the evening which she did not tolerate. Patient was tried with Ativan and Precedex drip to treat her anxiety with no help - 12/06 patient was reintubated to worsening respiratory distress and she would not tolerate BiPAP without significantly sedation. - chest x-ray and ABG reviewed. - Patient has severe emphysema on her CTA chest and minimal bilateral air movement - continue bronchodilators, steroids - Continue Levaquin. 12/07 discontinued vancomycin and cefepime as cultures have been negative. leukocytosis partly secondary to the steroids - she has failed attempts for weaning as she becomes quickly tachypneic dyssynchronous with the ventilator and develops respiratory distress on holding sedation. - I again placed on pressure support 8/5 this morning patient quickly went into respiratory distress and stated that she was struggling to breathe. Was placed back on CMV - prior to re-intubation, I did talk to patient regarding the fact that she may need tracheostomy and both patient and her were agreeable. I think it is going to be very difficult weaning from the vent specially with the fact that she does not tolerate BiPAP unless she is heavily sedated which obviously is not a long-term solution. Considering her severity of COPD she will be very difficult wean and even when she gets extubated she may need noninvasive positive-pressure ventilation which she does not tolerate due to anxiety and claustrophobia (2) COPD exacerbation: Code(s): J44.1 - Chronic obstructive pulmonary disease with (acute) exacerbation Status: Acute Assessment and Plan: continue mechanical ventilation, ABGs much improved this morning - continue steroids, bronchodilators and antibiotics - wean down steroid dose (3) Hypothyroidism: Code(s): E03.9 - Hypothyroidism, unspecified Status: Acute Assessment and Plan: continue levothyroxine (4) DVT prophylaxis: Code(s): Z29.9 - Encounter for prophylactic measures, unspecified Status: Acute Assessment and Plan: continue Lovenox (5) Hyperglycemia: Code(s): R73.9 - Hyperglycemia, unspecified Status: Acute Assessment and Plan: likely secondary to steroids add sliding scale insulin add Lantus (6) Hypotension: Code(s): I95.9 - Hypotension, unspecified Status: Acute Assessment and Plan: patient's blood pressure is highly variable. When adequately sedated patient is blood pressure is low and despite fluid bolus was not at satisfactory levels. And she temporarily needed Levophed infusion for few hours 12/08. When off sedation she is hypertensive. Precedex was switched to versed. Home Blood pressure medications are on hold (7) Hyperkalemia: Code(s): E87.5 - Hyperkalemia Status: Acute Assessment and Plan: potassium 5.4. patient earlier in the course received potassium replace.ment renal function is unchanged Kayexalate 30 g per tube x1 now recheck BMP later Additional Plan DVT prophylaxis - Lovenox Stress ulcer prophylaxis - IV Pepcid Nutrition - continue Tube Feeds Code Status - Full Code Critical care time spent: 30 minutes This dictation may have been done utilizing a voice recognition system. Attempts have been made to correct errors. However, there may be uncorrected grammatical, spelling, and recognition errors present. Due to a high probability of clinically significant, life threatening deterioration, the patient required my highest level of preparedness to intervene emergently and I per
[2020-12-10] MEDS: INSULIN GLARGINE (*BKC) 100 UNITS/ML 10 UNITS SUB-Q (11:10)
[2020-12-10] MEDS: SODIUM POLYSTYRENE SULFONONATE 15 GM/60 ML BTL 30 GM PO (11:10)
[2020-12-10] MEDS: INSULIN ASPART (*BKC) 100 UNITS/ML SUB-Q ×2 (12:23→17:17)
[2020-12-10 12:35] LABS: Glucose Point of Care 244 mg/dl (65-105)
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
[2020-12-10 17:32] LABS: Glucose Point of Care 247 mg/dl (65-105)
[2020-12-10 19:04] LABS: Anion Gap 2 mmol/L (8-16); Blood Urea Nitrogen 36 mg/dL (7-17); Calcium 8.2 mg/dL (8.4-10.2); Carbon Dioxide 36 mmol/L (22-30); Chloride 97 mmol/L (98-107); Estimated CRCL calculation 44 ml/min; Estimated Glomerular Filt Rate > 60; Glucose 235 mg/dL (65-110); Potassium 5.2 mmol/L (3.4-5.0); Sodium 135 mmol/L (137-145)
[2020-12-10] MEDS: SODIUM CHLORIDE NASAL GEL 14.1 GM 1 APPLIC NASAL (20:30)
[2020-12-11] VITALS (33 sets, daily range): BP systolic 101–145; BP diastolic 52–83; PULSE 84–887; RESP 10–22; TEMP 37.3–37.7; O2SAT 92–98
[2020-12-11 00:55] LABS: Glucose Point of Care 183 mg/dl (65-105)
[2020-12-11] MEDS: IPRATROPIUM BR 0.02% INH SOLN 0.5 MG/2.5 ML VIAL INHALATION ×4 (02:47→20:36)
[2020-12-11] MEDS: ALBUTEROL SULFATE NEB 2.5 MG/0.5 ML INH INHALATION ×4 (02:48→20:36)
[2020-12-11] MEDS: MIDAZOLAM 100MG/NS 100ML(*CRX) 100 MG/100 ML BAG IV CONT (03:01)
[2020-12-11] MEDS: FENTANYL 2,500MCG/NS250ML(*CRX 2,500 MCG/250 ML BAG 10 MCG IV CONT (05:05)
[2020-12-11 06:03] LABS: Alveolar/Arterial O2 Gradient 189.5 mmHg; Base Excess ABG 9.3 mEq/l (+/-2.0); Carboxyhemoglobin 0.3 % THb (0-2.0); Fractional Inspired Oxygen 45 %; HCO3 ABG 34.9 mEq/l (22.0-26.0); Oxygen Content ABG 14.8 %vol (16.0-22.0); Oxygen Saturation ABG 94.7 % (95.0-100.0); Oxyhemoglobin 93.1 % THb (90.0-100.0); PCO2 ABG 52.5 mmHg (35.0-45.0); PO2 ABG 71.6 mmHg (80.0-100.0); PO2 FiO2 Ratio Arterial Blood 1.59 %; Reduced Hemoglobin 6.6 %THb (0-5.0); Total Hemoglobin 11.3 g/dL (12.0-18.0)
[2020-12-11 06:05] LABS: Modified Allen's Test Unable to perform; Site Drawn LEFT RADIAL
[2020-12-11 06:06] LABS: Device VENTILATOR
[2020-12-11 06:07] LABS: Arterial Blood Gas PEEP 5 cmH2O; Arterial Blood Gas Tidal Volume 320 ml; Arterial Blood Gas Vent Mode CMV; Arterial Blood Gas Ventilator rate 16 /MIN
[2020-12-11] MEDS: CENTRAL LINE FLUSH 10 ML IV PUSH ×3 (06:45→20:05)
[2020-12-11] MEDS: LEVOTHYROXINE SODIUM 50 MCG TABLET PO (06:45)
[2020-12-11 06:52] LABS: Glucose Point of Care 140 mg/dl (65-105)
[2020-12-11] MEDS: BUDESONIDE RESPULE NEB 0.5 MG/2 ML AMP INHALATION ×2 (07:51→20:36)
--- NOTE | 2020-12-11 08:30 | WPDINTPN ---
Progress Note: A&P Assessment and Plan (1) Acute hypercapnic respiratory failure: Code(s): J96.02 - Acute respiratory failure with hypercapnia Status: Acute Assessment and Plan: acute hypercapnic respiratory failure likely related to COPD exacerbation and/or pneumonia - patient was intubated on 12/01/2020 and extubated on 12/05. She was placed on BiPAP in the evening which she did not tolerate. Patient was tried with Ativan and Precedex drip to treat her anxiety with no help - 12/06 patient was reintubated to worsening respiratory distress and she would not tolerate BiPAP without significantly sedation. - chest x-ray and ABG reviewed. - Patient has severe emphysema on her CTA chest and minimal bilateral air movement - continue bronchodilators, steroids - 12/07 discontinued vancomycin and cefepime as cultures have been negative. leukocytosis partly secondary to the steroids. will discontinue Levaquin after today's dose - she has failed attempts for weaning as she becomes quickly tachypneic dyssynchronous with the ventilator and develops respiratory distress on holding sedation. - will try again today with sedation holiday - prior to re-intubation, I did talk to patient regarding the fact that she may need tracheostomy and both patient and her were agreeable. I think it is going to be very difficult weaning from the vent specially with the fact that she does not tolerate BiPAP unless she is heavily sedated which obviously is not a long-term solution. Considering her severity of COPD she will be very difficult wean and even when she gets extubated she may need noninvasive positive-pressure ventilation which she does not tolerate due to anxiety and claustrophobia (2) COPD exacerbation: Code(s): J44.1 - Chronic obstructive pulmonary disease with (acute) exacerbation Status: Acute Assessment and Plan: continue mechanical ventilation, ABGs much improved this morning - continue steroids, bronchodilators and antibiotics - wean down steroid dose (3) Hypothyroidism: Code(s): E03.9 - Hypothyroidism, unspecified Status: Acute Assessment and Plan: continue levothyroxine (4) DVT prophylaxis: Code(s): Z29.9 - Encounter for prophylactic measures, unspecified Status: Acute Assessment and Plan: continue Lovenox (5) Hyperglycemia: Code(s): R73.9 - Hyperglycemia, unspecified Status: Acute Assessment and Plan: likely secondary to steroids add sliding scale insulin add Lantus (6) Hypotension: Code(s): I95.9 - Hypotension, unspecified Status: Acute Assessment and Plan: patient's blood pressure is highly variable. When adequately sedated patient is blood pressure is low and despite fluid bolus was not at satisfactory levels. And she temporarily needed Levophed infusion for few hours 12/08. When off sedation she is hypertensive. Precedex was switched to versed. Home Blood pressure medications are on hold (7) Hyperkalemia: Code(s): E87.5 - Hyperkalemia Status: Acute Assessment and Plan: No bowel movement overnight despite Kayexalate. check BMP now Patient earlier in the course received potassium replacement renal function is unchanged Additional Plan DVT prophylaxis - Lovenox Stress ulcer prophylaxis - IV Pepcid Nutrition - continue Tube Feeds Code Status - Full Code Critical care time spent: 30 minutes This dictation may have been done utilizing a voice recognition system. Attempts have been made to correct errors. However, there may be uncorrected grammatical, spelling, and recognition errors present. Due to a high probability of clinically significant, life threatening deterioration, the patient required my highest level of preparedness to intervene emergently and I personally spent this critical care time directly and personally managing the patient. This critical care
[2020-12-11] MEDS: MULTIVITAMINS /C LUTEIN (CENTRUM SILVER) TABLET *BKC 1 TAB PO (08:43)
[2020-12-11] MEDS: CALCIUM CARBONATE (OSCAL) 500 MG TABLET PO ×2 (08:43→17:27)
[2020-12-11] MEDS: ATORVASTATIN 40 MG TABLET PO (08:44)
[2020-12-11] MEDS: ASPIRIN 81 MG ENTERIC TABLET PO (08:44)
[2020-12-11] MEDS: ENOXAPARIN 40 MG/0.4 ML SYRINGE SUB-Q (08:44)
[2020-12-11] MEDS: methylPREDNISolone SOD SUCC 40 MG VIAL IV PUSH (08:45)
[2020-12-11] MEDS: MINERAL OIL/WHITE PETROLATUM OINTMENT 1 APPLIC EACH EYE ×2 (08:45→20:04)
[2020-12-11] MEDS: polyethylene glycoL 3350 17 GM POWD.PACK PO (08:45)
[2020-12-11] MEDS: FAMOTIDINE 20 MG/2 ML VIAL IV PUSH ×2 (08:45→20:04)
[2020-12-11 09:12] LABS: Anion Gap 0 mmol/L (8-16); Blood Urea Nitrogen 35 mg/dL (7-17); Calcium 8.3 mg/dL (8.4-10.2); Carbon Dioxide 39 mmol/L (22-30); Chloride 97 mmol/L (98-107); Estimated CRCL calculation 48 ml/min; Estimated Glomerular Filt Rate > 60; Glucose 144 mg/dL (65-110); Potassium 4.8 mmol/L (3.4-5.0); Sodium 136 mmol/L (137-145)
[2020-12-11] MEDS: INSULIN GLARGINE (*BKC) 100 UNITS/ML 25 UNITS SUB-Q (09:15)
[2020-12-11] MEDS: SODIUM POLYSTYRENE SULFONONATE 15 GM/60 ML BTL 30 GM PO (10:48)
[2020-12-11 12:28] LABS: Glucose Point of Care 206 mg/dl (65-105)
[2020-12-11] MEDS: INSULIN ASPART (*BKC) 100 UNITS/ML SUB-Q ×2 (12:28→17:25)
[2020-12-11 17:26] LABS: Glucose Point of Care 234 mg/dl (65-105)
[2020-12-11] MEDS: SODIUM CHLORIDE NASAL GEL 14.1 GM 1 APPLIC NASAL (20:04)
[2020-12-11 23:51] LABS: Glucose Point of Care 184 mg/dl (65-105)
[2020-12-12] VITALS (31 sets, daily range): BP systolic 96–157; BP diastolic 60–77; PULSE 93–114; RESP 15–27; TEMP 37.3–37.8; O2SAT 90–99
[2020-12-12] MEDS: ALBUTEROL SULFATE NEB 2.5 MG/0.5 ML INH INHALATION ×4 (03:02→20:22)
[2020-12-12] MEDS: IPRATROPIUM BR 0.02% INH SOLN 0.5 MG/2.5 ML VIAL INHALATION ×4 (03:02→20:22)
[2020-12-12 04:18] LABS: Alveolar/Arterial O2 Gradient 183.3 mmHg; Base Excess ABG 6.2 mEq/l (+/-2.0); Carboxyhemoglobin 0.3 % THb (0-2.0); Fractional Inspired Oxygen 40 %; HCO3 ABG 31.8 mEq/l (22.0-26.0); Methemoglobin ABG 0.2 %THb (0-1.5); Oxygen Content ABG 14.4 %vol (16.0-22.0); Oxyhemoglobin 91.1 % THb (90.0-100.0); PCO2 ABG 50.8 mmHg (35.0-45.0); PO2 ABG 65.8 mmHg (80.0-100.0); PO2 FiO2 Ratio Arterial Blood 1.65 %; Reduced Hemoglobin 8.4 %THb (0-5.0); Total Hemoglobin 11.2 g/dL (12.0-18.0); pH ABG 7.414 (7.350-7.450)
[2020-12-12 04:19] LABS: Device VENTILATOR; Modified Allen's Test Unable to perform; Site Drawn LEFT RADIAL
[2020-12-12 04:20] LABS: Arterial Blood Gas PEEP 5 cmH2O; Arterial Blood Gas Tidal Volume 320 ml; Arterial Blood Gas Vent Mode CMV; Arterial Blood Gas Ventilator rate 16 /MIN
[2020-12-12] MEDS: FENTANYL 2,500MCG/NS250ML(*CRX 2,500 MCG/250 ML BAG 10 MCG IV CONT (04:53)
[2020-12-12] MEDS: CENTRAL LINE FLUSH 10 ML IV PUSH ×3 (04:54→19:54)
[2020-12-12 05:08] LABS: Hematocrit 31.8 % (37.0-47.0); Hemoglobin 10.3 g/dL (12.0-15.0); Mean Corpuscular HGB Conc 32.4 g/dl (32-36); Mean Corpuscular Volume 86.4 fl (80-100); Mean Platelet Volume 11.2 fl (7.4-10.4); Platelet Count Result 346 k/mm3 (150-375); Red Blood Count 3.68 M/mm3 (4.2-5.4); Red Cell Distribution Width 15.9 % (11.5-14.5); White Blood Count 32.6 K/mm3 (4.5-10.0)
[2020-12-12 05:22] LABS: Alanine Aminotransferase 94 U/L (4-35); Alkaline Phosphatase 92 U/L (38-126); Anion Gap 3 mmol/L (8-16); Aspartate Amino Transferase 36 U/L (14-36); Bilirubin,Total 0.4 mg/dL (0.2-1.3); Blood Urea Nitrogen 30 mg/dL (7-17); Calcium 8.2 mg/dL (8.4-10.2); Carbon Dioxide 36 mmol/L (22-30); Chloride 96 mmol/L (98-107); Estimated CRCL calculation 48 ml/min; Estimated Glomerular Filt Rate > 60; Glucose 150 mg/dL (65-110); Potassium 3.8 mmol/L (3.4-5.0); Sodium 135 mmol/L (137-145)
[2020-12-12] MEDS: LEVOTHYROXINE SODIUM 50 MCG TABLET PO (06:19)
[2020-12-12] MEDS: BUDESONIDE RESPULE NEB 0.5 MG/2 ML AMP INHALATION ×2 (07:45→20:22)
[2020-12-12] MEDS: ERGOCALCIFEROL 50,000 UNIT CAPSULE 50000 UNITS PO (08:17)
[2020-12-12] MEDS: CALCIUM CARBONATE (OSCAL) 500 MG TABLET PO ×2 (08:17→17:14)
[2020-12-12] MEDS: ATORVASTATIN 40 MG TABLET PO (08:17)
[2020-12-12] MEDS: MULTIVITAMINS /C LUTEIN (CENTRUM SILVER) TABLET *BKC 1 TAB PO (08:18)
[2020-12-12] MEDS: MINERAL OIL/WHITE PETROLATUM OINTMENT 1 APPLIC EACH EYE ×2 (08:18→19:54)
[2020-12-12] MEDS: ENOXAPARIN 40 MG/0.4 ML SYRINGE SUB-Q (08:18)
[2020-12-12] MEDS: INSULIN GLARGINE (*BKC) 100 UNITS/ML 25 UNITS SUB-Q (08:18)
[2020-12-12] MEDS: methylPREDNISolone SOD SUCC 40 MG VIAL IV PUSH (08:18)
[2020-12-12] MEDS: ASPIRIN 81 MG ENTERIC TABLET PO (08:18)
[2020-12-12] MEDS: FAMOTIDINE 20 MG/2 ML VIAL IV PUSH ×2 (08:18→19:54)
[2020-12-12] MEDS: polyethylene glycoL 3350 17 GM POWD.PACK PO (08:19)
--- NOTE | 2020-12-12 10:41 | WPDINTPN ---
Progress Note: A&P Assessment and Plan (1) Acute hypercapnic respiratory failure: Code(s): J96.02 - Acute respiratory failure with hypercapnia Status: Acute Assessment and Plan: acute hypercapnic respiratory failure likely related to COPD exacerbation and/or pneumonia - patient was intubated on 12/01/2020 and extubated on 12/05. She was placed on BiPAP in the evening which she did not tolerate. Patient was tried with Ativan and Precedex drip to treat her anxiety with no help - 12/06 patient was reintubated to worsening respiratory distress and she would not tolerate BiPAP without significantly sedation. - chest x-ray and ABG reviewed. - Patient has severe emphysema on her CTA chest and minimal bilateral air movement - continue bronchodilators, steroids - 12/07 discontinued vancomycin and cefepime as cultures have been negative. leukocytosis partly secondary to the steroids. completed a course of Levaquin - she has failed daily attempts for weaning as she becomes quickly tachypneic dyssynchronous with the ventilator and develops respiratory distress on holding sedation. - again today patient after sedation holiday was using accessory muscles and was in respiratory distress. I still tried pressure support pressure support for few hours but patient failed a trial - prior to re-intubation, I did talk to patient regarding the fact that she may need tracheostomy and both patient and her were agreeable. I think it is going to be very difficult weaning from the vent specially with the fact that she does not tolerate BiPAP unless she is heavily sedated which obviously is not a long-term solution. Considering her severity of COPD she will be very difficult wean and even when she gets extubated she may need noninvasive positive-pressure ventilation which she does not tolerate due to anxiety and claustrophobia - I will consult ENT and GI for trach and PEG (2) COPD exacerbation: Code(s): J44.1 - Chronic obstructive pulmonary disease with (acute) exacerbation Status: Acute Assessment and Plan: continue mechanical ventilation, ABGs much improved this morning - continue steroids, bronchodilators and antibiotics (3) Hypothyroidism: Code(s): E03.9 - Hypothyroidism, unspecified Status: Acute Assessment and Plan: continue levothyroxine (4) DVT prophylaxis: Code(s): Z29.9 - Encounter for prophylactic measures, unspecified Status: Acute Assessment and Plan: continue Lovenox (5) Hyperglycemia: Code(s): R73.9 - Hyperglycemia, unspecified Status: Acute Assessment and Plan: likely secondary to steroids continue Lantus and sliding scale insulin (6) Hypotension: Code(s): I95.9 - Hypotension, unspecified Status: Acute Assessment and Plan: patient's blood pressure is highly variable. When adequately sedated patient is blood pressure is low and despite fluid bolus was not at satisfactory levels. And she temporarily needed Levophed infusion for few hours 12/08. When off sedation she is hypertensive. Precedex was switched to versed. Home Blood pressure medications are on hold (7) Hyperkalemia: Code(s): E87.5 - Hyperkalemia Status: Acute Assessment and Plan: resolved with a dose of Kayexalate Additional Plan DVT prophylaxis - Lovenox Stress ulcer prophylaxis - IV Pepcid Nutrition - continue Tube Feeds Code Status - Full Code Critical care time spent: 32 minutes This dictation may have been done utilizing a voice recognition system. Attempts have been made to correct errors. However, there may be uncorrected grammatical, spelling, and recognition errors present. Due to a high probability of clinically significant, life threatening deterioration, the patient required my highest level of preparedness to intervene emergently and I personally spent this critical care time directly and p
--- NOTE | 2020-12-12 11:13 | PCDIET ---
ICU Rounding Note: Patient tolerating Jevity 1.2 at 50mL/hr goal rate with 30mL water flush every 4 hours. Last recorded weight is 77.5kg which is increased from last review. +I/O. Bowel Motility: No BM, per RN. +Bowel sounds. Patient received Miralax today and previously received Kayexalate. Labs Reviewed: WBC (32.6), RBC (3.68), Hgb (10.3), Hct (31.8), Glu (150), BUN (30), Na (135), Alb (3.0), Darren Ca (9.0) Meds Noted: Albuterol, Drisdol, Lantus, Synthroid, Lipitor, Pepcid, Atrovent, Ativan, Pulmicort, Hydralazine, Solu Medrol, Centrum, Miralax Additional Notes: Failed SBT today. MD consulting ENT and GI for tracheostomy and PEG. No documented skin breakdown. Following daily in ICU rounds. Assessing/reassessing every Saturday/Saturday.
[2020-12-12 11:53] LABS: Glucose Point of Care 171 mg/dl (65-105)
[2020-12-12] MEDS: MIDAZOLAM 100MG/NS 100ML(*CRX) 100 MG/100 ML BAG IV CONT (12:11)
--- NOTE | 2020-12-12 14:45 | WPDGICN ---
Assessment and Plan Assessment and plan (1) Acute and chronic respiratory failure: Qualifiers: Respiratory failure complication: hypoxia Qualified Code(s): J96.21 - Acute and chronic respiratory failure with hypoxia Code(s): J96.20 - Acute and chronic respiratory failure, unspecified whether with hypoxia or hypercapnia Status: Acute Assessment and Plan: she unfortunately failed multiple attempts of extubation, at this point will need placement at LTAC or similar family agreeable to have PEG placement for feeding and also tracheostomy by ENT we will be planning to do it Saturday. (2) COPD exacerbation: Code(s): J44.1 - Chronic obstructive pulmonary disease with (acute) exacerbation Status: Acute Assessment and Plan: medical management, pulmonary also on board (3) Shock: Code(s): R57.9 - Shock, unspecified Status: Acute Assessment and Plan: she was on levophed (4) Hypertension: Qualifiers: Hypertension type: unspecified Qualified Code(s): I10 - Essential (primary) hypertension Code(s): I10 - Essential (primary) hypertension Status: Acute (5) Anxiety: Code(s): F41.9 - Anxiety disorder, unspecified Status: Acute (6) History of tobacco use: Code(s): Z87.891 - Personal history of nicotine dependence Status: Acute GI Consult Note Consult date/time: 12/12/20 14:45 Reason for consult: acute on chronic respiratory failure, unable to extubate HPI: Laxmi Colon is a 75 year old female with history of HTN and COPD who was admitted with worsening respiratory failure from COPD exacerbation on 11/29/20. Patient was intubated on 12/01/2020 and extubated on 12/05 placed briefly on BiPAP but did not tolerate and had to be reintubated, unfortunately she has failed since then multiple attempts of breathing trial and now she is vent dependent. CT chest reviewed and showed severe emphysema. She also was on levophed because shock and she is managed by [employer] consultant who at some point discussed case with family and patient during the time she was extubated, agreeable to proceed with peg placement and also trach. Review of Systems Constitutional: Constitutional: Denies chills Eyes: Eyes: Denies blurry vision ENT: Reports Normal hearing present Cardiovascular: Cardiovascular: Denies leg edema Respiratory: Respiratory: Reports dyspnea Gastrointestinal: Gastrointestinal: Denies vomiting Genitourinary: Genitourinary: Denies hematuria Musculoskeletal: Musculoskeletal: Denies arthralgias Integumentary/Breasts: Skin/Breast: Reports system reviewed and no additional complaints, except as docu [facility] Past Medical History Medical History Chronic hypoxemic respiratory failure Elevated lipids H/O vaginal delivery History of heart attack History of tobacco use Hypertension Shortness of Breath Thyroid disease Surgical History Surgical History History of cholecystectomy History of total abdominal hysterectomy and bilateral salpingo-oophorectomy History of tubal ligation Family History Family History Mother Hypertension Sibling Family history of malignant neoplasm of kidney Family history of lung cancer Lung disease Social History Social History Smoking packs per day: 0.5 Smoking cigarettes per day: 10.0 Years smoked: 49 Smoking pack-years: 24.50 Smoking status: Former smoker Tobacco type: cigarettes Smoking end date: 10/27/18 Alcohol intake: never Substance use: never Gender identity (if verbalized by the patient): Female Spiritual care concerns: No Meds Home Medications and Allergies Home Medications Medication Instructions Recorded Confir
[2020-12-12 16:54] LABS: Glucose Point of Care 224 mg/dl (65-105)
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
[2020-12-12] MEDS: INSULIN ASPART (*BKC) 100 UNITS/ML SUB-Q (17:14)
[2020-12-12] MEDS: SODIUM CHLORIDE NASAL GEL 14.1 GM 1 APPLIC NASAL (19:54)
[2020-12-12 23:44] LABS: Glucose Point of Care 178 mg/dl (65-105)
[2020-12-13] VITALS (28 sets, daily range): BP systolic 91–131; BP diastolic 50–81; PULSE 86–99; RESP 14–21; TEMP 36.7–37.6; O2SAT 90–97
[2020-12-13] MEDS: IPRATROPIUM BR 0.02% INH SOLN 0.5 MG/2.5 ML VIAL INHALATION ×4 (02:36→20:17)
[2020-12-13] MEDS: ALBUTEROL SULFATE NEB 2.5 MG/0.5 ML INH INHALATION ×4 (02:36→20:17)
[2020-12-13 04:59] LABS: Alveolar/Arterial O2 Gradient 152.9 mmHg; Base Excess ABG 8.3 mEq/l (+/-2.0); Carboxyhemoglobin 0.3 % THb (0-2.0); Fractional Inspired Oxygen 40 %; HCO3 ABG 34.5 mEq/l (22.0-26.0); Methemoglobin ABG 0.1 %THb (0-1.5); Oxygen Content ABG 15.7 %vol (16.0-22.0); Oxygen Saturation ABG 93.5 % (95.0-100.0); Oxyhemoglobin 91.9 % THb (90.0-100.0); PCO2 ABG 55.5 mmHg (35.0-45.0); PO2 ABG 68.5 mmHg (80.0-100.0); PO2 FiO2 Ratio Arterial Blood 1.71 %; Reduced Hemoglobin 7.7 %THb (0-5.0); Total Hemoglobin 12.1 g/dL (12.0-18.0); pH ABG 7.412 (7.350-7.450)
[2020-12-13 05:00] LABS: Device VENTILATOR; Modified Allen's Test Pass; Site Drawn LEFT RADIAL
[2020-12-13 05:01] LABS: Arterial Blood Gas PEEP 5 cmH2O; Arterial Blood Gas Tidal Volume 320 ml; Arterial Blood Gas Vent Mode CMV; Arterial Blood Gas Ventilator rate 16 /MIN
[2020-12-13 05:38] LABS: Hematocrit 30.8 % (37.0-47.0); Hemoglobin 9.9 g/dL (12.0-15.0); Mean Corpuscular HGB Conc 32.1 g/dl (32-36); Mean Platelet Volume 11.3 fl (7.4-10.4); Platelet Count Result 338 k/mm3 (150-375); Red Blood Count 3.54 M/mm3 (4.2-5.4); White Blood Count 29.1 K/mm3 (4.5-10.0)
[2020-12-13 05:43] LABS: Alanine Aminotransferase 86 U/L (4-35); Albumin Level 2.8 g/dL (3.5-5.1); Alkaline Phosphatase 88 U/L (38-126); Anion Gap 2 mmol/L (8-16); Aspartate Amino Transferase 30 U/L (14-36); Bilirubin,Total 0.4 mg/dL (0.2-1.3); Blood Urea Nitrogen 33 mg/dL (7-17); Calcium 8.6 mg/dL (8.4-10.2); Carbon Dioxide 38 mmol/L (22-30); Chloride 94 mmol/L (98-107); Estimated CRCL calculation 49 ml/min; Estimated Glomerular Filt Rate > 60; Glucose 161 mg/dL (65-110); Potassium 3.8 mmol/L (3.4-5.0); Sodium 134 mmol/L (137-145)
[2020-12-13] MEDS: LEVOTHYROXINE SODIUM 50 MCG TABLET PO (06:14)
[2020-12-13] MEDS: FENTANYL 2,500MCG/NS250ML(*CRX 2,500 MCG/250 ML BAG 10 MCG IV CONT (06:14)
[2020-12-13] MEDS: CENTRAL LINE FLUSH 10 ML IV PUSH ×3 (06:14→21:36)
[2020-12-13] MEDS: BUDESONIDE RESPULE NEB 0.5 MG/2 ML AMP INHALATION ×2 (07:49→20:17)
[2020-12-13] MEDS: methylPREDNISolone SOD SUCC 40 MG VIAL IV PUSH (08:18)
[2020-12-13] MEDS: MINERAL OIL/WHITE PETROLATUM OINTMENT 1 APPLIC EACH EYE ×2 (08:18→21:35)
[2020-12-13] MEDS: ATORVASTATIN 40 MG TABLET PO (08:18)
[2020-12-13] MEDS: FAMOTIDINE 20 MG/2 ML VIAL IV PUSH ×2 (08:18→21:35)
[2020-12-13] MEDS: CALCIUM CARBONATE (OSCAL) 500 MG TABLET PO ×2 (08:18→17:20)
[2020-12-13] MEDS: MULTIVITAMINS /C LUTEIN (CENTRUM SILVER) TABLET *BKC 1 TAB PO (08:18)
[2020-12-13] MEDS: ENOXAPARIN 40 MG/0.4 ML SYRINGE SUB-Q (08:18)
[2020-12-13] MEDS: polyethylene glycoL 3350 17 GM POWD.PACK PO (08:18)
[2020-12-13] MEDS: ASPIRIN 81 MG ENTERIC TABLET PO (08:19)
[2020-12-13] MEDS: INSULIN GLARGINE (*BKC) 100 UNITS/ML 25 UNITS SUB-Q (08:19)
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
[2020-12-13] MEDS: LORazepam INJ (*CRX) 2 MG/ML VIAL 1 MG IV PUSH (11:36)
[2020-12-13 12:14] LABS: Glucose Point of Care 202 mg/dl (65-105)
[2020-12-13] MEDS: INSULIN ASPART (*BKC) 100 UNITS/ML SUB-Q ×2 (12:21→18:02)
--- NOTE | 2020-12-13 12:36 | PCDIET ---
Nutrition Follow-Up Complete: Nutrition Diagnosis: Inadequate oral intake related to COPD exacerbation as evidenced by feeding tube placement and NPO diet order. Nutrition Goal: Patient to meet estimated nutritional needs. Goal met. Patient tolerating Jevity 1.2 at 50mL/hr with 30mL water flush every 4 hours. Plan for tracheostomy and PEG later this week. Last recorded weight is 78.3 kg which is increased from last review. +I/O. Bowel Motility: No documented BM. KUB noted. Discussed during rounds. Continue current management, per MD. Labs Reviewed: WBC (29.1), RBC (3.54), Hgb (9.9), Hct (30.8), Glu (161), BUN (33), Na (134), Alb (2.8) Meds Noted: Versed, Atrovent, Synthroid, Solu Medrol, Albuterol, Lipitor, Pepcid, Fentanyl, Hydralazine, Oscal 500, Drisdol, Lantus, Centrum, Miralax, Dulcolax prn Additional Notes: No documented skin breakdown. Will continue to monitor with same goal. Nutrition Monitoring and Evaluation: Follow up every Saturday/Saturday. Follow daily in ICU rounds.
--- NOTE | 2020-12-13 13:03 | WPDINTPN ---
Progress Note: A&P Assessment and Plan (1) Acute hypercapnic respiratory failure: Code(s): J96.02 - Acute respiratory failure with hypercapnia Status: Acute Assessment and Plan: acute hypercapnic respiratory failure likely related to COPD exacerbation and/or pneumonia - patient was intubated on 12/01/2020 and extubated on 12/05. She was placed on BiPAP in the evening which she did not tolerate. Patient was tried with Ativan and Precedex drip to treat her anxiety with no help - 12/06 patient was reintubated to worsening respiratory distress and she would not tolerate BiPAP without significantly sedation. - chest x-ray and ABG reviewed. - Patient has severe emphysema on her CTA chest and minimal bilateral air movement - continue bronchodilators, steroids - 12/07 discontinued vancomycin and cefepime as cultures have been negative. leukocytosis partly secondary to the steroids. completed a course of Levaquin - she has failed daily attempts for weaning as she becomes quickly tachypneic dyssynchronous with the ventilator and develops respiratory distress on holding sedation. - again today patient after sedation holiday was using accessory muscles and was in respiratory distress. I still tried pressure support pressure support for few hours but patient failed a trial - prior to re-intubation, I did talk to patient regarding the fact that she may need tracheostomy and both patient and her were agreeable. I think it is going to be very difficult weaning from the vent specially with the fact that she does not tolerate BiPAP unless she is heavily sedated which obviously is not a long-term solution. Considering her severity of COPD she will be very difficult wean and even when she gets extubated she may need noninvasive positive-pressure ventilation which she does not tolerate due to anxiety and claustrophobia - PEG on 12/14 and trach on 12/16 (2) COPD exacerbation: Code(s): J44.1 - Chronic obstructive pulmonary disease with (acute) exacerbation Status: Acute Assessment and Plan: continue mechanical ventilation, ABGs much improved this morning - continue steroids, bronchodilators and antibiotics (3) Hypothyroidism: Code(s): E03.9 - Hypothyroidism, unspecified Status: Acute Assessment and Plan: continue levothyroxine (4) DVT prophylaxis: Code(s): Z29.9 - Encounter for prophylactic measures, unspecified Status: Acute Assessment and Plan: continue Lovenox (5) Hyperglycemia: Code(s): R73.9 - Hyperglycemia, unspecified Status: Acute Assessment and Plan: likely secondary to steroids continue Lantus and sliding scale insulin (6) Hypotension: Code(s): I95.9 - Hypotension, unspecified Status: Acute Assessment and Plan: patient's blood pressure is highly variable. When adequately sedated patient is blood pressure is low and despite fluid bolus was not at satisfactory levels. And she temporarily needed Levophed infusion for few hours 12/08. When off sedation she is hypertensive. Precedex was switched to versed. Home Blood pressure medications are on hold (7) Hyperkalemia: Code(s): E87.5 - Hyperkalemia Status: Acute Assessment and Plan: resolved with a dose of Kayexalate (8) Abdominal distension: Code(s): R14.0 - Abdominal distension (gaseous) Status: Acute Assessment and Plan: Persistent nonspecific diffuse gaseous distention of colon with proximal predominance and with minimal stool at the rectum. - continue miralax and prn dulcolax Additional Plan DVT prophylaxis - Lovenox Stress ulcer prophylaxis - IV Pepcid Nutrition - continue Tube Feeds Code Status - Full Code Critical care time spent: 34 minutes This dictation may have been done utilizing a voice recognition system. Attempts have been made to correct errors. However, there may be uncorrecte
--- NOTE | 2020-12-13 15:50 | WPDGIPROGNO ---
Progress Note: A&P Assessment and Plan (1) Acute and chronic respiratory failure: Qualifiers: Respiratory failure complication: hypoxia Qualified Code(s): J96.21 - Acute and chronic respiratory failure with hypoxia Code(s): J96.20 - Acute and chronic respiratory failure, unspecified whether with hypoxia or hypercapnia Status: Acute Assessment and Plan: egd with peg placement tomorrow, she failed breathing trial multiple times (2) COPD exacerbation: Code(s): J44.1 - Chronic obstructive pulmonary disease with (acute) exacerbation Status: Acute Assessment and Plan: continue icu care she also will need trach Subjective Date/time seen: 12/13/20 15:50 Interval history: no changes, still intubated and tolerated tube feeding by OGT Review of Systems Review of Systems: All systems reviewed & are unremarkable except as noted in HPI and below Exam Const: General: comfortable and no acute distress HENMT: General nose exam: Normal nares present Other: ETT in place, also OGT with tube feeding Eyes: Sclera: sclerae normal Neck: Neck: supple Resp: Effort & Inspection: normal respiratory effort Auscultation: rhonchi and diminished lung sounds Cardio: Rate: regular rate Rhythm: regular rhythm GI: Inspection: non-distended GI Palp: Yes Soft to palpation and No Guarding due to palpation present (GI) Auscultation: normal bowel sounds : Other: Goddard catheter in place Urinary Catheter: Urinary Catheter: patent and draining and urine clear Skin: General skin exam: normal color Neuro: Cranial nerves: Yes Equal, round and reactive pupils present Other: patient is sedated Extrem: General: normal to inspection and no pedal edema Psych: Other: unable to assess at this time Objective Data Vital Signs Vital Signs: Vital Signs - 24 hr 12/12/20 16:00 12/12/20 17:10 12/12/20 18:00 Temperature 99.2 F 99.5 F Pulse Rate 98 99 99 Respiratory Rate 18 16 Blood Pressure 119/71 115/61 Pulse Oximetry 93 96 90 12/12/20 20:00 12/12/20 20:23 12/12/20 20:25 Temperature 99.3 F Pulse Rate 94 94 97 Respiratory Rate 18 23 H Blood Pressure 125/66 Pulse Oximetry 93 91 12/12/20 20:33 12/12/20 22:00 12/12/20 23:27 Temperature 99.6 F Pulse Rate 98 98 99 Respiratory Rate 19 19 Blood Pressure 136/75 Pulse Oximetry 92 12/13/20 00:00 12/13/20 02:00 12/13/20 02:37 Temperature 99.6 F 99.5 F Pulse Rate 98 94 93 Respiratory Rate 15 19 16 Blood Pressure 127/72 129/71 Pulse Oximetry 93 95 12/13/20 02:38 12/13/20 02:45 12/13/20 04:00 Temperature 99.2 F Pulse Rate 98 94 97 Respiratory Rate 16 16 Blood Pressure 122/81 Pulse Oximetry 93 94 12/13/20 05:05 12/13/20 06:00 12/13/20 06:14 Temperature 99.1 F Pulse Rate 92 91 91 Respiratory Rate 16 14 Blood Pressure 110/57 L Pulse Oximetry 94 94 12/13/20 08:00 12/13/20 10:00 12/13/20 11:24 Temperature 99.0 F 99.2 F Pulse Rate 94 99 94 Respiratory Rate 18 16 18 Blood Pressure 117/69 120/70 Pulse Oximetry 97 90 12/13/20 11:31 12/13/20 12:00 12/13/20 14:00 Temperature 99.3 F 99.0 F Pulse Rate 98 98 92 Respiratory Rate 16 16 16 Blood Pressure 91/65 L 95/50 L Pulse Oximetry 91 91 Intake/Output Intake/Output: Intake & Output 12/10/20 12/11/20 12/12/20 12/13/20 23:59 23:59 23:59 23:59 Intake Total 1108.2 1815 1594 819 Output Total 1550 550 800 25 Balance -441.8 1265 794 794 Meds/Results Medications: Active Medications Generic Name Dose Route Start Last Admin Trade Name Freq PRN Reason Stop Dose Admin Albuterol 2.5 mg 11/29/20 04:01 12/01/20 16:46 Albuterol Sulfate Neb 2.5 Mg/3 Ml Inh INHALATION 2.5 mg Q4-6H PRN Administration Shortness Of Breath Albuterol 2.5 mg 12/10/20 14:00 12/13/20 13:20 Albuterol Sulfate Neb 2.5 Mg/0.5 Ml Inh INHALATION 2.5 mg Q6HRT BARBARA Administration Aspirin 81 mg 11/29/20 09:00 12/13/20 08:1
[2020-12-13 17:18] LABS: Glucose Point of Care 218 mg/dl (65-105)
[2020-12-13] MEDS: MIDAZOLAM 100MG/NS 100ML(*CRX) 100 MG/100 ML BAG IV CONT (18:05)
[2020-12-13 18:37] LABS: Add Urine Microscopic? YES; Appearance Urine Cloudy (Clear); Bacteria Urine Trace /hpf; Bilirubin Urine Negative (Negative); Blood Urine 1+ (Negative); Budding Yeast Urine Present /hpf; Color Urine Amber (Yellow); Glucose Urine UA 1+ mg/dL (Negative); Ketones Urine Negative (Negative); Leukocyte Esterase Ur 3+ LEU/UL (NEGATIVE); Mucus Urine Moderate /lpf; Nitrate Urine Negative (Negative); Protein Urine Negative (Negative); RBC Urine >75 /hpf (0-2); Specific Grav Ur 1.021 (1.001-1.035); Squamous Epithelial Cell Urine Moderate /hpf (Few); Urobilinogen Urine Negative mg/dL (<2.0); WBC Urine >75 /hpf (0-3)
[2020-12-13] MEDS: SODIUM CHLORIDE NASAL GEL 14.1 GM 1 APPLIC NASAL (21:36)
[2020-12-13 23:55] LABS: Glucose Point of Care 157 mg/dl (65-105)
[2020-12-14] VITALS (31 sets, daily range): BP systolic 95–122; BP diastolic 48–75; PULSE 76–92; RESP 9–20; TEMP 36.8–37.2; O2SAT 92–99
[2020-12-14] MEDS: IPRATROPIUM BR 0.02% INH SOLN 0.5 MG/2.5 ML VIAL INHALATION ×4 (01:50→20:28)
[2020-12-14] MEDS: ALBUTEROL SULFATE NEB 2.5 MG/0.5 ML INH INHALATION ×4 (01:50→20:28)
[2020-12-14 05:23] LABS: Hematocrit 28.2 % (37.0-47.0); Hemoglobin 9.2 g/dL (12.0-15.0); Mean Corpuscular HGB Conc 32.6 g/dl (32-36); Mean Corpuscular Hemoglobin 28.2 pg (26-34); Mean Corpuscular Volume 86.5 fl (80-100); Mean Platelet Volume 10.7 fl (7.4-10.4); Platelet Count Result 311 k/mm3 (150-375); Red Blood Count 3.26 M/mm3 (4.2-5.4); Red Cell Distribution Width 16.3 % (11.5-14.5); White Blood Count 23.9 K/mm3 (4.5-10.0)
[2020-12-14 05:32] LABS: Partial Thromboplastin Time 27.5 SECONDS (22.3-36.8); Prothrombin Time 12.6 Seconds (11.1-14.7)
[2020-12-14 05:42] LABS: Alanine Aminotransferase 74 U/L (4-35); Albumin Level 2.8 g/dL (3.5-5.1); Alkaline Phosphatase 75 U/L (38-126); Aspartate Amino Transferase 26 U/L (14-36); Bilirubin,Total 0.5 mg/dL (0.2-1.3); Blood Urea Nitrogen 40 mg/dL (7-17); Calcium 8.6 mg/dL (8.4-10.2); Carbon Dioxide > 40 mmol/L (22-30); Chloride 96 mmol/L (98-107); Estimated CRCL calculation 45 ml/min; Estimated Glomerular Filt Rate > 60; Glucose 98 mg/dL (65-110); Magnesium 2.2 mg/dL (1.6-2.3); Phosphorus 4.7 mg/dL (2.5-4.5); Potassium 4.5 mmol/L (3.4-5.0); Sodium 136 mmol/L (137-145)
[2020-12-14] MEDS: CENTRAL LINE FLUSH 10 ML IV PUSH ×3 (06:22→21:50)
[2020-12-14] MEDS: LEVOTHYROXINE SODIUM 50 MCG TABLET PO (06:23)
[2020-12-14] MEDS: FENTANYL 2,500MCG/NS250ML(*CRX 2,500 MCG/250 ML BAG 10 MCG IV CONT (06:38)
[2020-12-14] MEDS: BUDESONIDE RESPULE NEB 0.5 MG/2 ML AMP INHALATION ×2 (08:15→20:28)
[2020-12-14] MEDS: FAMOTIDINE 20 MG/2 ML VIAL IV PUSH ×2 (10:53→20:23)
[2020-12-14] MEDS: methylPREDNISolone SOD SUCC 40 MG VIAL IV PUSH (10:55)
--- NOTE | 2020-12-14 10:55 | PCDIET ---
ICU Rounding Note: Patient NPO for PEG placement. Previously tolerating tube feedings which are currently held for procedure. Last recorded weight is 79.9kg which is increased from last review. +I/O. Bowel Motility: No BM reported. Labs Reviewed: WBC (23.9), RBC (3.26), Hgb (9.2), Hct (28.2), BUN (40), Na (136), PO4 (4.7), Alb (2.8) Meds Noted: Albuterol, Lipitor, Pepcid, Atrovent, Pulmicort, Oscal 500, Fentanyl, Synthroid, Cefepime, Drisdol, Hydralazine, Solu Medrol, Lantus, Versed, Centrum, Miralax, Vancomycin Additional Notes: No documented skin breakdown. Following daily in ICU rounds. Assessing/reassessing every Saturday/Saturday.
[2020-12-14] MEDS: MULTIVITAMINS /C LUTEIN (CENTRUM SILVER) TABLET *BKC 1 TAB PO (10:56)
[2020-12-14] MEDS: ATORVASTATIN 40 MG TABLET PO (10:56)
[2020-12-14] MEDS: CALCIUM CARBONATE (OSCAL) 500 MG TABLET PO ×2 (10:56→17:31)
[2020-12-14] MEDS: MINERAL OIL/WHITE PETROLATUM OINTMENT 1 APPLIC EACH EYE ×2 (10:58→20:23)
[2020-12-14] MEDS: acetaZOLAMIDE SODIUM FOR INJ 500 MG VIAL 250 MG IV PUSH (11:15)
[2020-12-14] MEDS: ceFAZolin 2 GM/D5W 50 ML 2 GM/50 ML BAG IVPB (13:07)
[2020-12-14 13:15] LABS: Glucose Point of Care 171 mg/dl (65-105)
--- NOTE | 2020-12-14 13:21 | P.PNINT_ITS ---
Progress Note: A&P Assessment and Plan (1) Acute hypercapnic respiratory failure: Code(s): J96.02 - Acute respiratory failure with hypercapnia Status: Acute Assessment and Plan: acute hypercapnic respiratory failure likely related to COPD exacerbation and/or pneumonia - patient was intubated on 12/01/2020 and extubated on 12/05. She was placed on BiPAP in the evening which she did not tolerate. Patient was tried with Ativan and Precedex drip to treat her anxiety with no help - 12/06 patient was reintubated to worsening respiratory distress and she would not tolerate BiPAP without significantly sedation. - chest x-ray and ABG reviewed. - Patient has severe emphysema on her CTA chest and minimal bilateral air movement - continue bronchodilators, steroids - 12/07 discontinued vancomycin and cefepime as cultures have been negative. leukocytosis partly secondary to the steroids. completed a course of Levaquin - she has failed daily attempts for weaning as she becomes quickly tachypneic dyssynchronous with the ventilator and develops respiratory distress on holding sedation. - again today patient after sedation holiday was using accessory muscles and was in respiratory distress. I still tried pressure support pressure support for few hours but patient failed a trial - prior to re-intubation, I did talk to patient regarding the fact that she may need tracheostomy and both patient and her were agreeable. I think it is going to be very difficult weaning from the vent specially with the fact that she does not tolerate BiPAP unless she is heavily sedated which obviously is not a long-term solution. Considering her severity of COPD she will be very difficult wean and even when she gets extubated she may need noninvasive positive-pressure ventilation which she does not tolerate due to anxiety and claustrophobia - PEG on 12/14 and trach on 12/16 (2) COPD exacerbation: Code(s): J44.1 - Chronic obstructive pulmonary disease with (acute) exacerbation Status: Acute Assessment and Plan: continue mechanical ventilation, ABGs much improved this morning - continue steroids, bronchodilators and antibiotics (3) Hypothyroidism: Code(s): E03.9 - Hypothyroidism, unspecified Status: Acute Assessment and Plan: continue levothyroxine (4) DVT prophylaxis: Code(s): Z29.9 - Encounter for prophylactic measures, unspecified Status: Acute Assessment and Plan: continue Lovenox (5) Hyperglycemia: Code(s): R73.9 - Hyperglycemia, unspecified Status: Acute Assessment and Plan: likely secondary to steroids continue Lantus and sliding scale insulin (6) Hypotension: Code(s): I95.9 - Hypotension, unspecified Status: Acute Assessment and Plan: patient's blood pressure is highly variable. When adequately sedated patient is blood pressure is low and despite fluid bolus was not at satisfactory levels. And she temporarily needed Levophed infusion for few hours 12/08. When off sedation she is hypertensive. Precedex was switched to versed. Home Blood pressure medications are on hold (7) Hyperkalemia: Code(s): E87.5 - Hyperkalemia Status: Acute Assessment and Plan: resolved with a dose of Kayexalate (8) Abdominal distension: Code(s): R14.0 - Abdominal distension (gaseous) Status: Acute Assessment and Plan: Persistent nonspecific diffuse gaseous distention of colon with proximal predominance and with minimal stool at the rectum. - continue miralax and prn dulcolax
[2020-12-14] MEDS: fentaNYL CITRATE INJ (*CRX) 100 MCG/2 ML VIAL (14:05)
[2020-12-14] MEDS: MIDAZOLAM HCL (*CRX) 2 MG/2 ML VIAL 4 MG (14:05)
[2020-12-14] MEDS: MIDAZOLAM 100MG/NS 100ML(*CRX) 100 MG/100 ML BAG IV CONT (17:31)
[2020-12-14 18:54] LABS: Glucose Point of Care 135 mg/dl (65-105)
[2020-12-14] MEDS: SODIUM CHLORIDE NASAL GEL 14.1 GM 1 APPLIC NASAL (20:23)
[2020-12-14 23:27] LABS: Glucose Point of Care 116 mg/dl (65-105)
[2020-12-15] VITALS (27 sets, daily range): BP systolic 98–119; BP diastolic 41–63; PULSE 73–89; RESP 9–20; TEMP 36.9–37.6; O2SAT 93–98
[2020-12-15] MEDS: ALBUTEROL SULFATE NEB 2.5 MG/0.5 ML INH INHALATION ×4 (02:33→20:27)
[2020-12-15] MEDS: IPRATROPIUM BR 0.02% INH SOLN 0.5 MG/2.5 ML VIAL INHALATION ×4 (02:34→20:26)
[2020-12-15 04:25] LABS: Hematocrit 28.8 % (37.0-47.0); Hemoglobin 9.3 g/dL (12.0-15.0); Mean Corpuscular HGB Conc 32.3 g/dl (32-36); Mean Corpuscular Hemoglobin 28.4 pg (26-34); Mean Corpuscular Volume 88.1 fl (80-100); Mean Platelet Volume 11.3 fl (7.4-10.4); Platelet Count Result 318 k/mm3 (150-375); Red Blood Count 3.27 M/mm3 (4.2-5.4); Red Cell Distribution Width 16.5 % (11.5-14.5); White Blood Count 22.6 K/mm3 (4.5-10.0)
[2020-12-15 04:37] LABS: Alanine Aminotransferase 60 U/L (4-35); Albumin Level 2.9 g/dL (3.5-5.1); Alkaline Phosphatase 76 U/L (38-126); Anion Gap 4 mmol/L (8-16); Aspartate Amino Transferase 29 U/L (14-36); Bilirubin,Total 0.6 mg/dL (0.2-1.3); Blood Urea Nitrogen 38 mg/dL (7-17); Calcium 8.5 mg/dL (8.4-10.2); Carbon Dioxide 34 mmol/L (22-30); Chloride 96 mmol/L (98-107); Estimated CRCL calculation 41 ml/min; Estimated Glomerular Filt Rate 59; Glucose 91 mg/dL (65-110); Magnesium 2.1 mg/dL (1.6-2.3); Phosphorus 5.3 mg/dL (2.5-4.5); Potassium 4.4 mmol/L (3.4-5.0); Sodium 134 mmol/L (137-145)
[2020-12-15] MEDS: CENTRAL LINE FLUSH 10 ML IV PUSH ×3 (05:39→23:43)
[2020-12-15] MEDS: LEVOTHYROXINE SODIUM 50 MCG TABLET PO (05:40)
[2020-12-15 07:00] LABS: Glucose Point of Care 85 mg/dl (65-105)
[2020-12-15] MEDS: BUDESONIDE RESPULE NEB 0.5 MG/2 ML AMP INHALATION ×2 (07:50→20:27)
[2020-12-15] MEDS: FENTANYL 2,500MCG/NS250ML(*CRX 2,500 MCG/250 ML BAG 10 MCG IV CONT (09:05)
[2020-12-15] MEDS: ATORVASTATIN 40 MG TABLET PO (09:07)
[2020-12-15] MEDS: CALCIUM CARBONATE (OSCAL) 500 MG TABLET PO ×2 (09:07→16:43)
[2020-12-15] MEDS: MULTIVITAMINS /C LUTEIN (CENTRUM SILVER) TABLET *BKC 1 TAB PO (09:07)
[2020-12-15] MEDS: ENOXAPARIN 40 MG/0.4 ML SYRINGE SUB-Q (09:07)
[2020-12-15] MEDS: ASPIRIN 81 MG ENTERIC TABLET PO (09:07)
[2020-12-15] MEDS: methylPREDNISolone SOD SUCC 40 MG VIAL IV PUSH (09:07)
[2020-12-15] MEDS: FAMOTIDINE 20 MG/2 ML VIAL IV PUSH ×2 (09:07→20:10)
[2020-12-15] MEDS: MINERAL OIL/WHITE PETROLATUM OINTMENT 1 APPLIC EACH EYE ×2 (09:08→20:10)
[2020-12-15] MEDS: polyethylene glycoL 3350 17 GM POWD.PACK PO (09:08)
--- NOTE | 2020-12-15 11:34 | PCDIET ---
ICU Rounding Note: Patient has been NPO since 12/14/20 for PEG placement. MD order to resume tube feedings today with plan to hold again at midnight for tracheostomy tomorrow, 12/16/20. Last recorded weight is 80.2kg which is stable with last review. Bowel Motility: No documented BM. KUB noted. Patient continues on Miralax and has prn order for Dulcolax. Labs Reviewed: WBC (22.6), RBC (3.27), Hgb (9.3), Hct (28.8), BUN (38), Cr (1.1), Na (134), Alb (2.9), PO4 (5.3) Meds Noted: Albuterol, Pulmicort, Drisdol, Pepcid, Fentanyl, Lipitor, Oscal 500, Maxipime, Atrovent, Synthroid, Solu Medrol, Versed, Centrum, Levophed, Miralax, Vancomycin Additional Notes: Buttocks macerated, per RN. Patient edematous. Will monitor serum phosphorus level. Patient may benefit from binder or alternate formula if elevation continues. Following daily in ICU rounds. Assessing/reassessing every Saturday/Saturday.
--- NOTE | 2020-12-15 12:02 | WPDINTPN ---
Progress Note: A&P Assessment and Plan (1) Acute hypercapnic respiratory failure: Code(s): J96.02 - Acute respiratory failure with hypercapnia Status: Acute Assessment and Plan: acute hypercapnic respiratory failure likely related to COPD exacerbation and/or pneumonia - patient was intubated on 12/01/2020 and extubated on 12/05. She was placed on BiPAP in the evening which she did not tolerate. Patient was tried with Ativan and Precedex drip to treat her anxiety with no help - 12/06 patient was reintubated to worsening respiratory distress and she would not tolerate BiPAP without significantly sedation. - chest x-ray and ABG reviewed. - Patient has severe emphysema on her CTA chest and minimal bilateral air movement - continue bronchodilators, steroids - 12/07 discontinued vancomycin and cefepime as cultures have been negative. leukocytosis partly secondary to the steroids. completed a course of Levaquin - she has failed daily attempts for weaning as she becomes quickly tachypneic dyssynchronous with the ventilator and develops respiratory distress on holding sedation. - again today patient after sedation holiday was using accessory muscles and was in respiratory distress. I still tried pressure support pressure support for few hours but patient failed a trial - prior to re-intubation, I did talk to patient regarding the fact that she may need tracheostomy and both patient and her were agreeable. I think it is going to be very difficult weaning from the vent specially with the fact that she does not tolerate BiPAP unless she is heavily sedated which obviously is not a long-term solution. Considering her severity of COPD she will be very difficult wean and even when she gets extubated she may need noninvasive positive-pressure ventilation which she does not tolerate due to anxiety and claustrophobia - PEG placed on 12/14 - trach scheduled for 12/16 (2) COPD exacerbation: Code(s): J44.1 - Chronic obstructive pulmonary disease with (acute) exacerbation Status: Acute Assessment and Plan: continue mechanical ventilation, ABGs much improved this morning - continue steroids, bronchodilators and antibiotics (3) Hypothyroidism: Code(s): E03.9 - Hypothyroidism, unspecified Status: Acute Assessment and Plan: continue levothyroxine (4) DVT prophylaxis: Code(s): Z29.9 - Encounter for prophylactic measures, unspecified Status: Acute Assessment and Plan: continue Lovenox - lower extremity swelling will obtain venous Doppler (5) Hyperglycemia: Code(s): R73.9 - Hyperglycemia, unspecified Status: Acute Assessment and Plan: likely secondary to steroids continue Lantus and sliding scale insulin (6) Hypotension: Code(s): I95.9 - Hypotension, unspecified Status: Acute Assessment and Plan: patient's blood pressure is highly variable. When adequately sedated patient is blood pressure is low and despite fluid bolus was not at satisfactory levels. And she temporarily needed Levophed infusion for few hours 12/08. When off sedation she is hypertensive. Precedex was switched to versed. Home Blood pressure medications are on hold (7) Hyperkalemia: Code(s): E87.5 - Hyperkalemia Status: Acute Assessment and Plan: resolved with a dose of Kayexalate (8) Abdominal distension: Code(s): R14.0 - Abdominal distension (gaseous) Status: Acute Assessment and Plan: Persistent nonspecific diffuse gaseous distention of colon with proximal predominance and with minimal stool at the rectum. - continue miralax and prn dulcolax Additional Plan DVT prophylaxis - Lovenox Stress ulcer prophylaxis - IV Pepcid Nutrition - continue Tube Feeds Code Status - Full Code Critical care time spent: 32 minutes This dictation may have been done utilizing a voice recognition system.
[2020-12-15 12:47] LABS: Glucose Point of Care 129 mg/dl (65-105)
--- NOTE | 2020-12-15 13:59 | WPDGIPROGNO ---
Progress Note: A&P Assessment and Plan (1) Acute and chronic respiratory failure: Qualifiers: Respiratory failure complication: hypoxia Qualified Code(s): J96.21 - Acute and chronic respiratory failure with hypoxia Code(s): J96.20 - Acute and chronic respiratory failure, unspecified whether with hypoxia or hypercapnia Status: Acute Assessment and Plan: unable to extubate despite multiple attempts that was the reason why yesterday placed G-tube, ok to start tube feeding as tolerated. 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 - Other specified eating disorder Status: Acute Assessment and Plan: ok to start tube feeding using G-tube (3) COPD exacerbation: Code(s): J44.1 - Chronic obstructive pulmonary disease with (acute) exacerbation Status: Acute Assessment and Plan: by primary (4) Leukocytosis: Qualifiers: Leukocytosis type: unspecified Qualified Code(s): D72.829 - Elevated white blood cell count, unspecified Code(s): D72.829 - Elevated white blood cell count, unspecified Status: Acute Assessment and Plan: on iv antibiotics Subjective Date/time seen: 12/15/20 13:59 Interval history: egd with placement of G-tube yesterday, still intubated and sedated Review of Systems Review of Systems: All systems reviewed & are unremarkable except as noted in HPI and below Exam Const: General: comfortable and no acute distress HENMT: General nose exam: Normal nares present Other: ETT in place Eyes: Sclera: sclerae normal Neck: Neck: supple Resp: Effort & Inspection: normal respiratory effort Auscultation: rhonchi and diminished lung sounds Cardio: Rate: regular rate Rhythm: regular rhythm GI: Inspection: non-distended GI Palp: Yes Soft to palpation and No Guarding due to palpation present (GI) Auscultation: normal bowel sounds Other: peg in site, no drainage : Other: Goddard catheter in place Urinary Catheter: Urinary Catheter: patent and draining and urine clear Skin: General skin exam: normal color Neuro: Cranial nerves: Yes Equal, round and reactive pupils present Other: patient is sedated but opening eyes Extrem: General: normal to inspection and no pedal edema Psych: Other: unable to assess at this time Objective Data Vital Signs Vital Signs: Vital Signs - 24 hr 12/14/20 14:00 12/14/20 14:09 12/14/20 14:14 Temperature Pulse Rate 86 86 87 Respiratory Rate 15 18 Blood Pressure 122/65 112/65 Pulse Oximetry 96 96 12/14/20 14:19 12/14/20 16:00 12/14/20 16:37 Temperature 98.3 F Pulse Rate 84 81 78 Respiratory Rate 9 L 16 Blood Pressure 114/72 121/66 Pulse Oximetry 96 93 92 12/14/20 17:31 12/14/20 17:32 12/14/20 18:00 Temperature 98.3 F Pulse Rate 80 80 81 Respiratory Rate 16 16 20 Blood Pressure 99/68 L Pulse Oximetry 99 12/14/20 19:38 12/14/20 20:00 12/14/20 20:29 Temperature 98.3 F 98.4 F Pulse Rate 81 80 81 Respiratory Rate 20 16 18 Blood Pressure 99/68 L 100/64 Pulse Oximetry 99 95 93 12/14/20 22:00 12/14/20 23:45 12/15/20 00:00 Temperature 98.8 F 98.6 F Pulse Rate 82 76 77 Respiratory Rate 16 16 Blood Pressure 115/64 103/56 L Pulse Oximetry 94 93 93 12/15/20 02:00 12/15/20 02:34 12/15/20 02:37 Temperature 98.5 F Pulse Rate 77 73 78 Respiratory Rate 17 16 Blood Pressure 98/55 L Pulse Oximetry 93 93 12/15/20 04:00 12/15/20 06:00 12/15/20 07:32 Temperature 98.7 F 98.7 F Pulse Rate 83 83 83 Respiratory Rate 17 17 10 L Blood Pressure 116/53 L 116/53 L Pulse Oximetry 97 97 12/15/20 07:56 12/15/20 08:00 12/15/20 09:05 Temperature 98.9 F Pulse Rate 82 84 83 Respiratory Rate 18 16 10 L Blood Pressure 117/63 Pulse Oximetry 94 97 12/15/20 09:30 12/15/20 10:00 12/15/20 10:03 Temperature 98.6 F Pulse Rate 84 84 85 Respiratory Rate 12 14 Bloo
[2020-12-15 16:49] LABS: Glucose Point of Care 146 mg/dl (65-105)
--- NOTE | 2020-12-15 17:00 | WPDCN ---
Assessment and Plan Assessment and plan (1) Acute hypercapnic respiratory failure: Code(s): J96.02 - Acute respiratory failure with hypercapnia Status: Acute Assessment and Plan: Plan for tracheotomy placement in OR tomorrow for acute on chronic respiratory failure with COPD exacerbation and failure to extubate. Discussed with pt merrittight, she nodded in agreement with plan and will get consent from . Plan for OR tomorrow at 1400. Freddy Castaneda MD HPI Data of Consult Date/Time: 12/15/20 17:00 Requesting Physician: Néstor Navarrete MD Primary Care Provider: Chester Ghosh, Consult Narrative Reason for consult: Tracheostomy Narrative: Laxmi Colon is a 75 year old female admitted for COPD exacerbation, was intubated, extubated and put on biPAP but did not tolerate, required heavy sedation and ultimately was reintubated. ENT consulted for tracheostomy placement. She had PEG placed earlier this week. Pt and her had been informed of potential need for tracheostomy when she was extubated and agreed with that course of treatment previously. Review of Systems Review of Systems: ROS unobtainable: Yes unobtainable due to endotracheal tube PMFSH Past Medical History Medical History Chronic hypoxemic respiratory failure Elevated lipids H/O vaginal delivery History of heart attack History of tobacco use Hypertension Shortness of Breath Thyroid disease Unable to eat Surgical History Surgical History History of cholecystectomy History of total abdominal hysterectomy and bilateral salpingo-oophorectomy History of tubal ligation Family History Family History Mother Hypertension Sibling Family history of malignant neoplasm of kidney Family history of lung cancer Lung disease Social History Social History Smoking packs per day: 0.5 Smoking cigarettes per day: 10.0 Years smoked: 49 Smoking pack-years: 24.50 Smoking status: Former smoker Tobacco type: cigarettes Smoking end date: 10/27/18 Alcohol intake: never Substance use: never Gender identity (if verbalized by the patient): Female Spiritual care concerns: No Meds Home Medications and Allergies Home Medications Medication Instructions Recorded Confirmed Type amlodipine 5 mg tablet 5 mg PO DAILY 05/05/19 11/29/20 History atorvastatin 40 mg tablet 40 mg PO DAILY 05/05/19 11/29/20 History nitroglycerin 0.4 mg sublingual 0.4 mg SUBLINGUAL Q5M PRN 05/05/19 11/29/20 History tablet aspirin 81 mg tablet,delayed 81 mg PO DAILY 05/06/19 11/29/20 History release calcium carbonate 600 mg calcium 600 mg PO BID 05/06/19 11/29/20 History (1,500 mg) tablet levothyroxine 50 mcg tablet 50 mcg PO DAILY 05/06/19 11/29/20 History albuterol sulfate 2.5 mg INHALATION Q4-6H PRN 04/15/20 11/29/20 History tiotropium bromide 2.5 2 puff INHALATION DAILY #4 gm 06/16/20 11/29/20 Rx mcg/actuation mist for inhalation cholecalciferol (vitamin D3) 1,250 1,250 mcg PO WEEKLY #12 cap 11/02/20 11/29/20 Rx mcg (50,000 unit) capsule budesonide-formoterol [Symbicort] 2 puff INHALATION BID 11/29/20 11/29/20 History fzxegyggfjkx-xty-iltk-FA-vit K 1 tablet PO DAILY 11/29/20 11/29/20 History [Adults Multivitamin] Allergies Allergy/AdvReac Type Severity Reaction Status Date / Time No Known Allergies Allergy Verified 11/28/20 21:32 Vital Signs Vital Signs - 24 hr 12/14/20 17:31 12/14/20 17:32 12/14/20 18:00 Temperature 36.8 C Pulse Rate 80 80 81 Respiratory Rate 16 16 20 Blood Pressure 99/68 L Pulse Oximetry 99 12/14/20 19:38 12/14/20 20:00 12/14/20 20:29 Temperature 36.8 C 36.9 C Pulse Rate 81 80 81 Respiratory Rate 20 16 18 Blood Pressure 99/68 L 100/64 Pulse Oxim
[2020-12-15] MEDS: SODIUM CHLORIDE NASAL GEL 14.1 GM 1 APPLIC NASAL (20:10)
[2020-12-15] MEDS: INSULIN ASPART (*BKC) 100 UNITS/ML SUB-Q (23:47)
[2020-12-15 23:48] LABS: Glucose Point of Care 213 mg/dl (65-105)
[2020-12-16] VITALS (30 sets, daily range): BP systolic 103–164; BP diastolic 53–73; PULSE 73–100; RESP 9–24; TEMP 36.5–37.4; O2SAT 90–98
[2020-12-16] MEDS: ALBUTEROL SULFATE NEB 2.5 MG/0.5 ML INH INHALATION ×4 (02:27→20:11)
[2020-12-16] MEDS: IPRATROPIUM BR 0.02% INH SOLN 0.5 MG/2.5 ML VIAL INHALATION ×4 (02:27→20:11)
[2020-12-16 04:38] LABS: Hematocrit 26.2 % (37.0-47.0); Hemoglobin 8.5 g/dL (12.0-15.0); Mean Corpuscular HGB Conc 32.4 g/dl (32-36); Mean Corpuscular Hemoglobin 28.1 pg (26-34); Mean Corpuscular Volume 86.5 fl (80-100); Mean Platelet Volume 10.5 fl (7.4-10.4); Platelet Count Result 270 k/mm3 (150-375); Red Blood Count 3.03 M/mm3 (4.2-5.4); Red Cell Distribution Width 16.3 % (11.5-14.5)
[2020-12-16 04:47] LABS: Alanine Aminotransferase 60 U/L (4-35); Albumin Level 2.7 g/dL (3.5-5.1); Alkaline Phosphatase 73 U/L (38-126); Anion Gap 5 mmol/L (8-16); Aspartate Amino Transferase 35 U/L (14-36); Bilirubin,Total 0.7 mg/dL (0.2-1.3); Blood Urea Nitrogen 34 mg/dL (7-17); Calcium 8.4 mg/dL (8.4-10.2); Carbon Dioxide 29 mmol/L (22-30); Chloride 100 mmol/L (98-107); Estimated CRCL calculation 45 ml/min; Estimated Glomerular Filt Rate > 60; Glucose 109 mg/dL (65-110); Phosphorus 3.9 mg/dL (2.5-4.5); Potassium 3.8 mmol/L (3.4-5.0); Sodium 134 mmol/L (137-145)
[2020-12-16] MEDS: CENTRAL LINE FLUSH 10 ML IV PUSH ×3 (06:49→21:05)
[2020-12-16] MEDS: LEVOTHYROXINE SODIUM 50 MCG TABLET PO (06:49)
[2020-12-16 08:05] LABS: Glucose Point of Care 122 mg/dl (65-105)
[2020-12-16] MEDS: BUDESONIDE RESPULE NEB 0.5 MG/2 ML AMP INHALATION ×2 (08:08→20:11)
[2020-12-16] MEDS: methylPREDNISolone SOD SUCC 40 MG VIAL IV PUSH (08:53)
[2020-12-16] MEDS: ATORVASTATIN 40 MG TABLET PO (08:54)
[2020-12-16] MEDS: CALCIUM CARBONATE (OSCAL) 500 MG TABLET PO (08:54)
[2020-12-16] MEDS: FAMOTIDINE 20 MG/2 ML VIAL IV PUSH ×2 (08:54→21:00)
[2020-12-16] MEDS: MULTIVITAMINS /C LUTEIN (CENTRUM SILVER) TABLET *BKC 1 TAB PO (08:54)
[2020-12-16] MEDS: ASPIRIN 81 MG ENTERIC TABLET PO (08:54)
[2020-12-16] MEDS: FUROSEMIDE INJ 40 MG/4 ML VIAL 20 MG IV PUSH (08:59)
[2020-12-16] MEDS: MIDAZOLAM 100MG/NS 100ML(*CRX) 100 MG/100 ML BAG IV CONT (09:16)
--- NOTE | 2020-12-16 11:21 | PCDIET ---
Nutrition Follow-Up Complete: Nutrition Diagnosis: Inadequate oral intake related to COPD exacerbation as evidenced by feeding tube placement and NPO diet order. Nutrition Goal: Patient to meet estimated nutritional needs. Goal in progress. Tube feedings held for tracheostomy later today. No issues reported upon resuming tube feedings on 12/15/20. Last recorded weight is 81.7 kg which is increased from last review, despite -I/O. Bowel Motility: BM x 1 today; large, per nursing. BM also reported on 12/15/20. Miralax not given today. Labs Reviewed: WBC (22.6), RBC (3.27), Hgb (9.3), Hct (28.8), BUN (38), Cr (1.1), Na (134), Alb (2.9), PO4 (5.3) Meds Noted: Albuterol, Centrum, Drisdol, Fentanyl, Hydralazine, Lasix, Vancomycin, Lipitor, Maxipime, Atrovent, Synthroid, Pulmicort, Oscal 500, Solu Medrol, Versed Additional Notes: RN reports maceration to buttocks and groin. Will continue to monitor with same goal. Nutrition Monitoring and Evaluation: Follow up every Saturday/Saturday.
--- NOTE | 2020-12-16 13:17 | WPDINTPN ---
Progress Note: A&P Assessment and Plan (1) Acute hypercapnic respiratory failure: Code(s): J96.02 - Acute respiratory failure with hypercapnia Status: Acute Assessment and Plan: acute hypercapnic respiratory failure likely related to COPD exacerbation and/or pneumonia - patient was intubated on 12/01/2020 and extubated on 12/05. She was placed on BiPAP in the evening which she did not tolerate. Patient was tried with Ativan and Precedex drip to treat her anxiety with no help - 12/06 patient was reintubated to worsening respiratory distress and she would not tolerate BiPAP without significantly sedation. - chest x-ray and ABG reviewed. - Patient has severe emphysema on her CTA chest and minimal bilateral air movement - continue bronchodilators, steroids - patient has been a failure to wean. - Discussed with patient and her , both agreeable for tracheostomy and PEG tube - PEG placed on 12/14 - trach scheduled for today, 12/16 (2) COPD exacerbation: Code(s): J44.1 - Chronic obstructive pulmonary disease with (acute) exacerbation Status: Acute Assessment and Plan: continue mechanical ventilation, A - continue steroids, bronchodilators and antibiotics - failure to wean (3) Hypothyroidism: Code(s): E03.9 - Hypothyroidism, unspecified Status: Acute Assessment and Plan: continue levothyroxine (4) DVT prophylaxis: Code(s): Z29.9 - Encounter for prophylactic measures, unspecified Status: Acute Assessment and Plan: continue Lovenox - lower extremity swelling will obtain venous Doppler (5) Hyperglycemia: Code(s): R73.9 - Hyperglycemia, unspecified Status: Acute Assessment and Plan: likely secondary to steroids continue Lantus and sliding scale insulin (6) Hypotension: Code(s): I95.9 - Hypotension, unspecified Status: Acute Assessment and Plan: patient's blood pressure is highly variable. When adequately sedated patient is blood pressure is low and despite fluid bolus was not at satisfactory levels. And she temporarily needed Levophed infusion for few hours 12/08. When off sedation she is hypertensive. Precedex was switched to versed. Home Blood pressure medications are on hold (7) Hyperkalemia: Code(s): E87.5 - Hyperkalemia Status: Acute Assessment and Plan: resolved with a dose of Kayexalate (8) Abdominal distension: Code(s): R14.0 - Abdominal distension (gaseous) Status: Acute Assessment and Plan: Persistent nonspecific diffuse gaseous distention of colon with proximal predominance and with minimal stool at the rectum. - continue miralax and prn dulcolax (9) Sepsis: Qualifiers: Sepsis type: sepsis due to unspecified organism Sepsis acute organ dysfunction status: unspecified Qualified Code(s): A41.9 - Sepsis, unspecified organism Code(s): A41.9 - Sepsis, unspecified organism Status: Acute Assessment and Plan: patient with leukocytosis, hypotension - blood cultures positive for gram positive cocci in clusters 1/2 bottles - urine cultures growing Karla albicans -Yeast was isolated in sputum cultures - WBC count improving, - continue cefepime and vancomycin which were initiated on 12/14 Additional Plan DVT prophylaxis - Lovenox on hold for tracheostomy placement today Stress ulcer prophylaxis - IV Pepcid Nutrition - tube feeds currently on hold for tracheostomy placement today Code Status - Full Code Critical care time spent: 31 minutes This dictation may have been done utilizing a voice recognition system. Attempts have been made to correct errors. However, there may be uncorrected grammatical, spelling, and recognition errors present. Due to a high probability of clinically significant, life threatening deterioration, the patient required my highest level of preparedness to intervene emergently and
[2020-12-16 13:18] LABS: Glucose Point of Care 157 mg/dl (65-105)
--- NOTE | 2020-12-16 13:49 | WPDANESEPPF ---
Anes - Initial Pre Proc Eval Procedure: Operation Date: 12/16/20 14:00 Proposed Procedures p Tracheostomy - Freddy Castaneda MD Date/Time: 12/16/20 13:49 Surgeon: Néstor Navarrete MD Pre Op Diagnosis: COPD Exacerbation Patient Data Age: 75 Gender: F Height: 1.63 m Weight: 81.7 kg Last Vital Signs Temp 37.2 C 12/16/20 06:00 Pulse 87 12/16/20 11:28 Resp 19 12/16/20 08:17 BP 117/53 L 12/16/20 06:00 Pulse Ox 95 12/16/20 11:28 Allergies Allergy/AdvReac Type Severity Reaction Status Date / Time No Known Allergies Allergy Verified 11/28/20 21:32 Home Medications Medication Instructions Recorded Confirmed Type amlodipine 5 mg tablet 5 mg PO DAILY 05/05/19 11/29/20 History atorvastatin 40 mg tablet 40 mg PO DAILY 05/05/19 11/29/20 History nitroglycerin 0.4 mg sublingual 0.4 mg SUBLINGUAL Q5M PRN 05/05/19 11/29/20 History tablet aspirin 81 mg tablet,delayed 81 mg PO DAILY 05/06/19 11/29/20 History release calcium carbonate 600 mg calcium 600 mg PO BID 05/06/19 11/29/20 History (1,500 mg) tablet levothyroxine 50 mcg tablet 50 mcg PO DAILY 05/06/19 11/29/20 History albuterol sulfate 2.5 mg INHALATION Q4-6H PRN 04/15/20 11/29/20 History tiotropium bromide 2.5 2 puff INHALATION DAILY #4 gm 06/16/20 11/29/20 Rx mcg/actuation mist for inhalation cholecalciferol (vitamin D3) 1,250 1,250 mcg PO WEEKLY #12 cap 11/02/20 11/29/20 Rx mcg (50,000 unit) capsule budesonide-formoterol [Symbicort] 2 puff INHALATION BID 11/29/20 11/29/20 History ggeyxqtawtry-epl-xdpx-FA-vit K 1 tablet PO DAILY 11/29/20 11/29/20 History [Adults Multivitamin] Laboratory Tests 12/15/20 12/15/20 12/16/20 16:45 23:45 04:26 WBC 18.0 K/mm3 H K/mm3 (4.5-10.0) RBC 3.03 M/mm3 L M/mm3 (4.2-5.4) Hgb 8.5 g/dL L g/dL (12.0-15.0) Hct 26.2 % L % (37.0-47.0) MCV 86.5 fl fl (80-100) MCH 28.1 pg pg (26-34) MCHC 32.4 g/dl g/dl (32-36) RDW 16.3 % H % (11.5-14.5) Plt Count 270 k/mm3 k/mm3 (150-375) MPV 10.5 fl H fl (7.4-10.4) Sodium Potassium Chloride Carbon Dioxide Anion Gap BUN Creatinine Estim Creat Clear Calc Estimated GFR Glucose POC Capillary Glucose 146 mg/dl H mg/dl 213 mg/dl H mg/dl (65-105) (65-105) Calcium Phosphorus Magnesium Total Bilirubin AST ALT Alkaline Phosphatase Total Protein Albumin 12/16/20 12/16/20 12/16/20 04:26 06:41 13:16 WBC RBC Hgb Hct MCV MCH MCHC RDW Plt Count MPV Sodium 134 mmol/L L mmol/L (137-145) Potassium 3.8 mmol/L mmol/L (3.4-5.0) Chloride 100 mmol/L mmol/L (98-107) Carbon Dioxide 29 mmol/L mmol/L (22-30) Anion Gap 5 mmol/L L mmol/L (8-16) BUN 34 mg/dL H mg/dL (7-17) Creatinine 1.00 mg/dL mg/dL (0.7-1.0) Estim Creat Clear Calc 45 ml/min ml/min Estimated GFR > 60 (59 - ) Glucose 109 mg/dL mg/dL (65-110) POC Capillary Glucose 122 mg/dl H mg/dl 157 mg/dl H mg/dl (65-105) (65-105) Calcium 8.4 mg/dL mg/dL (8.4-10.2) Phosphorus 3.9 mg/dL mg/dL (2.5-4.5) Magnesium 2.0 mg/dL mg/dL (1.6-2.3) Total Bilirubin 0.7 mg/dL mg/dL (0.2-1.3) AST 35 U/L U/L (14-36) ALT 60 U/L H U/L (4-35) Alkaline Phosphatase 73 U/L U/L (38-126) Total Protein 5.0 g/dL L g/dL (6.3-8.2) Albumin 2.7 g/dL L g/dL (3.5-5.1) Patient hx anesthesia problems: none Family hx anesthesia problems: n
[2020-12-16] MEDS: LIDO 1%/EPINEPHRINE 1:100,000 20 ML VIAL 50 ML INFILTRATE (14:59)
--- NOTE | 2020-12-16 15:22 | P.OP_ITS ---
Procedure Note - Detailed Date of Procedure 12/16/20 Pre-op Diagnosis COPD Exacerbation Post-op Diagnosis same Procedure Performed Tracheostomy Surgeon Freddy Castaneda MD Anesthesia general Indications Respiratory failure Findings 8-0 DCT shiley placed Description of Procedure The patient was previously consented by family. They were then brought back to the OR and induced with anesthesia through the endotracheal tube. They were then transferred to the OR table. A shoulder roll was placed. Landmarks were palpated and marked. A timeout was performed. An 8-0 DCT cuffed shiley tracheostomy tube was selected and tested. The patient was prepped and drapped in the usual sterile fashion for an tracheotostomy. A horizontal incision was made along the marked line 1-2 cm above the suprasternal notch. Dissection was carried down in the midline through subcutaneous tissues using a hemostat and retraction by vein retractor and then [employer] retractors. The strap muscles were identified and divided using a com bination of blunt dissection through the median raphe and electrocautery. The thyroid isthmus was encounted and divided using electrocautery and retracted. The trachea was encountered. A cricoid hook was placed to stabilize and elevate the trachea. The tracheostomy tube was tested on the field and showed no leak. After confirmation with anesthesia and the wind turbine technician ensuring FiO2 was acceptable an #11 blade was used to make a horizontal incision into the trachea. Heavy scissors were used to make parallel vertical cuts laterally through the second ring. The endotracheal tube was pulled. The tracheostomy tube was placed and successfully hooked up the circuit. The airway was stabilized and verified by anesthesia. The cricoid/tracheal hook was carefully removed. The tracheotomy tube was then secured with 0 silk sutures placed at each corner of the trach tube and the underlying skin. A tracheal tie was then placed. This ended this portion of the procedure and care of the patient was returned to anesthesia who recovered him in the ICU. Freddy Castaneda M.D. Estimated Blood Loss 5 Urine Output 400 Drains No Packing Yes (surgicel) Pathology none sent Complications No immediate complications Condition critical Disposition ICU
--- NOTE | 2020-12-16 16:05 | PM.IMPN ---
Progress Note: A&P Assessment and Plan (1) Acute hypercapnic respiratory failure: Code(s): J96.02 - Acute respiratory failure with hypercapnia Status: Acute Assessment and Plan: status post tracheostomy acute hypercapnic respiratory failure likely related to COPD exacerbation and/or pneumonia - patient was intubated on 12/01/2020 and extubated on 12/05. She was placed on BiPAP in the evening which she did not tolerate. Patient was tried with Ativan and Precedex drip to treat her anxiety with no help - 12/06 patient was reintubated to worsening respiratory distress and she would not tolerate BiPAP without significantly sedation. - chest x-ray and ABG reviewed. - Patient has severe emphysema on her CTA chest and minimal bilateral air movement - continue bronchodilators, steroids - patient has been a failure to wean. - Discussed with patient and her , both agreeable for tracheostomy and PEG tube - PEG placed on 12/14 - trach scheduled for today, 12/16 (2) COPD exacerbation: Code(s): J44.1 - Chronic obstructive pulmonary disease with (acute) exacerbation Status: Acute Assessment and Plan: continue mechanical ventilation, A - continue steroids, bronchodilators and antibiotics - failure to wean (3) Hypothyroidism: Code(s): E03.9 - Hypothyroidism, unspecified Status: Acute Assessment and Plan: continue levothyroxine (4) DVT prophylaxis: Code(s): Z29.9 - Encounter for prophylactic measures, unspecified Status: Acute Assessment and Plan: continue Lovenox - lower extremity swelling will obtain venous Doppler (5) Hyperglycemia: Code(s): R73.9 - Hyperglycemia, unspecified Status: Acute Assessment and Plan: likely secondary to steroids continue Lantus and sliding scale insulin (6) Hypotension: Code(s): I95.9 - Hypotension, unspecified Status: Acute Assessment and Plan: patient's blood pressure is highly variable. When adequately sedated patient is blood pressure is low and despite fluid bolus was not at satisfactory levels. And she temporarily needed Levophed infusion for few hours 12/08. When off sedation she is hypertensive. Precedex was switched to versed. Home Blood pressure medications are on hold (7) Hyperkalemia: Code(s): E87.5 - Hyperkalemia Status: Acute Assessment and Plan: resolved with a dose of Kayexalate (8) Abdominal distension: Code(s): R14.0 - Abdominal distension (gaseous) Status: Acute Assessment and Plan: a status post G-tube placement Persistent nonspecific diffuse gaseous distention of colon with proximal predominance and with minimal stool at the rectum. - continue miralax and prn dulcolax (9) Sepsis: Qualifiers: Sepsis type: sepsis due to unspecified organism Sepsis acute organ dysfunction status: unspecified Qualified Code(s): A41.9 - Sepsis, unspecified organism Code(s): A41.9 - Sepsis, unspecified organism Status: Acute Assessment and Plan: patient with leukocytosis, hypotension - blood cultures positive for gram positive cocci in clusters 1/2 bottles - urine cultures growing Karla albicans -Yeast was isolated in sputum cultures - WBC count improving, - continue cefepime and vancomycin which were initiated on 12/14 Additional Plan DVT prophylaxis - Lovenox on hold for tracheostomy placement today Stress ulcer prophylaxis - IV Pepcid Nutrition - tube feeds currently on hold for tracheostomy placement today Code Status - Full Code Critical care time spent: 31 minutes This dictation may have been done utilizing a voice recognition system. Attempts have been made to correct errors. However, there may be uncorrected grammatical, spelling, and recognition errors present. Due to a high probability of clinically significant, life threatening deterioration, the patient req
[2020-12-16 17:28] LABS: Glucose Point of Care 161 mg/dl (65-105)
[2020-12-17] VITALS (35 sets, daily range): BP systolic 92–154; BP diastolic 48–67; PULSE 50–102; RESP 9–24; TEMP 37.1–37.6; O2SAT 93–98
[2020-12-17 00:58] LABS: Glucose Point of Care 115 mg/dl (65-105)
[2020-12-17] MEDS: FENTANYL 2,500MCG/NS250ML(*CRX 2,500 MCG/250 ML BAG 7.5 MCG IV CONT (01:50)
[2020-12-17] MEDS: IPRATROPIUM BR 0.02% INH SOLN 0.5 MG/2.5 ML VIAL INHALATION ×4 (02:38→20:51)
[2020-12-17] MEDS: ALBUTEROL SULFATE NEB 2.5 MG/0.5 ML INH INHALATION ×4 (02:38→20:51)
[2020-12-17 05:39] LABS: Hematocrit 26.3 % (37.0-47.0); Hemoglobin 8.6 g/dL (12.0-15.0); Mean Corpuscular HGB Conc 32.7 g/dl (32-36); Mean Corpuscular Hemoglobin 28.7 pg (26-34); Mean Corpuscular Volume 87.7 fl (80-100); Mean Platelet Volume 10.5 fl (7.4-10.4); Platelet Count Result 257 k/mm3 (150-375); Red Cell Distribution Width 16.5 % (11.5-14.5); White Blood Count 19.6 K/mm3 (4.5-10.0)
[2020-12-17] MEDS: CENTRAL LINE FLUSH 10 ML IV PUSH ×3 (05:39→22:19)
[2020-12-17] MEDS: LEVOTHYROXINE SODIUM 50 MCG TABLET PO (05:40)
[2020-12-17 05:46] LABS: Glucose Point of Care 122 mg/dl (65-105)
[2020-12-17 06:03] LABS: Alveolar/Arterial O2 Gradient 161.4 mmHg; Base Excess ABG 9.1 mEq/l (+/-2.0); Carboxyhemoglobin 0.3 % THb (0-2.0); Fractional Inspired Oxygen 40 %; HCO3 ABG 33.6 mEq/l (22.0-26.0); Methemoglobin ABG 0.1 %THb (0-1.5); Oxygen Content ABG 12.7 %vol (16.0-22.0); Oxygen Saturation ABG 95.2 % (95.0-100.0); Oxyhemoglobin 92.2 % THb (90.0-100.0); PCO2 ABG 45.9 mmHg (35.0-45.0); PO2 FiO2 Ratio Arterial Blood 1.77 %; Reduced Hemoglobin 7.4 %THb (0-5.0); Total Hemoglobin 9.7 g/dL (12.0-18.0); pH ABG 7.482 (7.350-7.450)
[2020-12-17 06:04] LABS: Device VENTILATOR; Modified Allen's Test Pass; Site Drawn LEFT RADIAL
[2020-12-17 06:05] LABS: Arterial Blood Gas PEEP 5 cmH2O; Arterial Blood Gas Vent Mode ASV
[2020-12-17 06:07] LABS: Arterial Blood Gas Minute Volume 100 LPM
[2020-12-17 06:27] LABS: Anion Gap 5 mmol/L (8-16); Blood Urea Nitrogen 31 mg/dL (7-17); Calcium 9.1 mg/dL (8.4-10.2); Carbon Dioxide 35 mmol/L (22-30); Chloride 94 mmol/L (98-107); Estimated CRCL calculation 44 ml/min; Estimated Glomerular Filt Rate > 60; Glucose 120 mg/dL (65-110); Magnesium 1.9 mg/dL (1.6-2.3); Phosphorus 4.5 mg/dL (2.5-4.5); Sodium 134 mmol/L (137-145)
[2020-12-17] MEDS: BUDESONIDE RESPULE NEB 0.5 MG/2 ML AMP INHALATION ×2 (08:10→20:52)
[2020-12-17] MEDS: ASPIRIN 81 MG ENTERIC TABLET PO (08:14)
[2020-12-17] MEDS: ENOXAPARIN 40 MG/0.4 ML SYRINGE SUB-Q (08:14)
[2020-12-17] MEDS: polyethylene glycoL 3350 17 GM POWD.PACK PO (08:14)
[2020-12-17] MEDS: CALCIUM CARBONATE (OSCAL) 500 MG TABLET PO ×2 (08:15→16:23)
[2020-12-17] MEDS: ATORVASTATIN 40 MG TABLET PO (08:15)
[2020-12-17] MEDS: FAMOTIDINE 20 MG/2 ML VIAL IV PUSH ×2 (08:15→21:56)
[2020-12-17] MEDS: methylPREDNISolone SOD SUCC 40 MG VIAL IV PUSH (08:15)
[2020-12-17] MEDS: MULTIVITAMINS /C LUTEIN (CENTRUM SILVER) TABLET *BKC 1 TAB PO (08:16)
[2020-12-17] MEDS: MINERAL OIL/WHITE PETROLATUM OINTMENT 1 APPLIC EACH EYE (08:16)
--- NOTE | 2020-12-17 09:49 | WPDINTPN ---
Progress Note: A&P Assessment and Plan (1) Acute hypercapnic respiratory failure: Code(s): J96.02 - Acute respiratory failure with hypercapnia Status: Acute Assessment and Plan: acute hypercapnic respiratory failure likely related to COPD exacerbation and/or pneumonia - patient was intubated on 12/01/2020 and extubated on 12/05. She was placed on BiPAP in the evening which she did not tolerate. Patient was tried with Ativan and Precedex drip to treat her anxiety with no help - 12/06 patient was reintubated to worsening respiratory distress and she would not tolerate BiPAP without significantly sedation. - chest x-ray and ABG reviewed. - Patient has severe emphysema on her CTA chest and minimal bilateral air movement - continue bronchodilators, steroids - PEG placed on 12/14 - tracheostomy placed on 12/16 - place patient on pressure support ventilation 04/30, wean sedation (2) COPD exacerbation: Code(s): J44.1 - Chronic obstructive pulmonary disease with (acute) exacerbation Status: Acute Assessment and Plan: continue mechanical ventilation, A - continue steroids, bronchodilators and antibiotics - failure to wean (3) Hypothyroidism: Code(s): E03.9 - Hypothyroidism, unspecified Status: Acute Assessment and Plan: continue levothyroxine (4) DVT prophylaxis: Code(s): Z29.9 - Encounter for prophylactic measures, unspecified Status: Acute Assessment and Plan: continue Lovenox - lower extremity swelling will obtain venous Doppler (5) Hyperglycemia: Code(s): R73.9 - Hyperglycemia, unspecified Status: Acute Assessment and Plan: likely secondary to steroids continue Lantus and sliding scale insulin (6) Hypotension: Code(s): I95.9 - Hypotension, unspecified Status: Acute Assessment and Plan: patient's blood pressure is highly variable. When adequately sedated patient is blood pressure is low and despite fluid bolus was not at satisfactory levels. And she temporarily needed Levophed infusion for few hours 12/08. When off sedation she is hypertensive. Precedex was switched to versed. Home Blood pressure medications are on hold (7) Hyperkalemia: Code(s): E87.5 - Hyperkalemia Status: Acute Assessment and Plan: resolved with a dose of Kayexalate (8) Abdominal distension: Code(s): R14.0 - Abdominal distension (gaseous) Status: Acute Assessment and Plan: improving after bowel movements Persistent nonspecific diffuse gaseous distention of colon with proximal predominance and with minimal stool at the rectum. - continue miralax and prn dulcolax (9) Sepsis: Qualifiers: Sepsis acute organ dysfunction status: unspecified Sepsis type: sepsis due to unspecified organism Qualified Code(s): A41.9 - Sepsis, unspecified organism Code(s): A41.9 - Sepsis, unspecified organism Status: Acute Assessment and Plan: patient with leukocytosis, hypotension - blood cultures positive for gram positive cocci in clusters 1/2 bottles - urine cultures growing Karla albicans, given elevated white count, borderline blood pressures, started Diflucan -Yeast was isolated in sputum cultures - WBC count improving, - continue cefepime and vancomycin which were initiated on 12/14 Additional Plan DVT prophylaxis - Lovenox on hold for tracheostomy placement today Stress ulcer prophylaxis - IV Pepcid Nutrition - tube feeds currently on hold for tracheostomy placement today Code Status - Full Code Critical care time spent: 31 minutes This dictation may have been done utilizing a voice recognition system. Attempts have been made to correct errors. However, there may be uncorrected grammatical, spelling, and recognition errors present. Due to a high probability of clinically significant, life threatening deterioration, the patient required my highest level
[2020-12-17 10:15] LABS: Vancomycin Trough 9.9 ug/mL (10.0-20.0)
[2020-12-17] MEDS: FLUCONAZOLE 200 MG/NACL 100 ML 200 MG/100 ML BAG 100 MG IVPB (10:53)
[2020-12-17 11:54] LABS: Glucose Point of Care 259 mg/dl (65-105)
[2020-12-17] MEDS: INSULIN GLARGINE (*BKC) 100 UNITS/ML 25 UNITS SUB-Q (11:55)
[2020-12-17] MEDS: INSULIN ASPART (*BKC) 100 UNITS/ML SUB-Q ×2 (11:56→17:48)
--- NOTE | 2020-12-17 13:43 | WPDGIPROGNO ---
Progress Note: A&P Assessment and Plan (1) Acute and chronic respiratory failure: Qualifiers: Respiratory failure complication: hypoxia Qualified Code(s): J96.21 - Acute and chronic respiratory failure with hypoxia Code(s): J96.20 - Acute and chronic respiratory failure, unspecified whether with hypoxia or hypercapnia Status: Acute Assessment and Plan: s/p trach and PEG tolerating tube feeding (2) Unable to eat: Code(s): F50.89 - Other specified eating disorder Status: Acute Assessment and Plan: will need alf placement (3) Hypothyroidism: Code(s): E03.9 - Hypothyroidism, unspecified Status: Acute (4) COPD exacerbation: Code(s): J44.1 - Chronic obstructive pulmonary disease with (acute) exacerbation Status: Acute Assessment and Plan: on medical treatment (5) Leukocytosis: Qualifiers: Leukocytosis type: unspecified Qualified Code(s): D72.829 - Elevated white blood cell count, unspecified Code(s): D72.829 - Elevated white blood cell count, unspecified Status: Acute Subjective Date/time seen: 12/17/20 13:43 Interval history: trach yesterday by ENT, she is tolerating tube feeding by G-tube. Family member at bedside. Review of Systems Review of Systems: All systems reviewed & are unremarkable except as noted in HPI and below Exam Const: General: no acute distress HENMT: Other: trach in place Eyes: Sclera: sclerae normal Neck: Neck: supple Resp: Auscultation: diminished lung sounds Cardio: Rate: regular rate GI: GI Palp: Yes Soft to palpation and No Guarding due to palpation present (GI) Auscultation: normal bowel sounds Other: g-tube in place, no drainage. Tube feeding is running Urinary Catheter: Urinary Catheter: patent and draining Skin: General skin exam: no rashes or lesions noted Neuro: Other: awake Extrem: General: pedal edema Objective Data Vital Signs Vital Signs: Vital Signs - 24 hr 12/16/20 14:00 12/16/20 14:04 12/16/20 14:18 Temperature 99.1 F Pulse Rate 82 91 81 Respiratory Rate 15 16 16 Blood Pressure 131/60 Pulse Oximetry 97 12/16/20 15:45 12/16/20 16:00 12/16/20 16:15 Temperature 97.7 F 97.8 F 97.9 F Pulse Rate 100 94 91 Respiratory Rate 22 H 16 13 Blood Pressure 164/73 H 138/59 L 136/61 Pulse Oximetry 93 90 96 12/16/20 16:30 12/16/20 17:00 12/16/20 17:30 Temperature 98.0 F 98.2 F 98.4 F Pulse Rate 90 86 85 Respiratory Rate 17 12 12 Blood Pressure 135/55 L 109/57 L 116/66 Pulse Oximetry 97 96 96 12/16/20 18:00 12/16/20 18:24 12/16/20 20:00 Temperature 98.5 F 98.7 F Pulse Rate 84 82 79 Respiratory Rate 12 9 L Blood Pressure 114/61 103/59 L Pulse Oximetry 98 97 96 12/16/20 20:11 12/16/20 20:23 12/16/20 22:00 Temperature 98.8 F Pulse Rate 81 87 73 Respiratory Rate 13 14 10 L Blood Pressure 113/61 Pulse Oximetry 94 93 12/16/20 23:10 12/17/20 00:00 12/17/20 00:56 Temperature 98.8 F Pulse Rate 85 81 70 Respiratory Rate 9 L 9 L Blood Pressure 119/63 Pulse Oximetry 98 95 12/17/20 00:59 12/17/20 01:50 12/17/20 02:00 Temperature 98.9 F Pulse Rate 83 83 102 H Respiratory Rate 11 L 10 L 16 Blood Pressure 120/62 Pulse Oximetry 95 12/17/20 02:38 12/17/20 02:49 12/17/20 02:55 Temperature Pulse Rate 84 84 84 Respiratory Rate 14 15 Blood Pressure Pulse Oximetry 94 12/17/20 04:00 12/17/20 05:00 12/17/20 05:56 Temperature 99 F Pulse Rate 84 84 81 Respiratory Rate 12 12 Blood Pressure 126/57 L Pulse Oximetry 94 95 12/17/20 06:00 12/17/20 06:08 12/17/20 07:28 Temperature 99 F 99.2 F Pulse Rate 81 50 L 83 Respiratory Rate 9 L 10 L 16 Blood Pressure 113/67 108/58 L Pulse Oximetry 94 95 12/17/20 08:00 12/17/20 08:15 12/17/20 08:18 Temperature Pulse Rate 85 83 83 Respiratory Rate 9 L Blood Pressure Pulse Oximetry 95 12/17/20 08:27 07/24/21 10:0
--- NOTE | 2020-12-17 14:28 | P.PNIM_ITS ---
Progress Note: A&P Assessment and Plan (1) Acute hypercapnic respiratory failure: Code(s): J96.02 - Acute respiratory failure with hypercapnia Status: Acute Assessment and Plan: acute hypercapnic respiratory failure likely related to COPD exacerbation and/or pneumonia - patient was intubated on 12/01/2020 and extubated on 12/05. She was placed on BiPAP in the evening which she did not tolerate. Patient was tried with Ativan and Precedex drip to treat her anxiety with no help - 12/06 patient was reintubated to worsening respiratory distress and she would not tolerate BiPAP without significantly sedation. - chest x-ray and ABG reviewed. - Patient has severe emphysema on her CTA chest and minimal bilateral air movement - continue bronchodilators, steroids - PEG placed on 12/14 - tracheostomy placed on 12/16 - place patient on pressure support ventilation 04/30, wean sedation (2) COPD exacerbation: Code(s): J44.1 - Chronic obstructive pulmonary disease with (acute) exacerbation Status: Acute Assessment and Plan: continue mechanical ventilation, A - continue steroids, bronchodilators and antibiotics - failure to wean (3) Hypothyroidism: Code(s): E03.9 - Hypothyroidism, unspecified Status: Acute Assessment and Plan: continue levothyroxine (4) DVT prophylaxis: Code(s): Z29.9 - Encounter for prophylactic measures, unspecified Status: Acute Assessment and Plan: continue Lovenox - lower extremity swelling will obtain venous Doppler (5) Hyperglycemia: Code(s): R73.9 - Hyperglycemia, unspecified Status: Acute Assessment and Plan: likely secondary to steroids continue Lantus and sliding scale insulin (6) Hypotension: Code(s): I95.9 - Hypotension, unspecified Status: Acute Assessment and Plan: patient's blood pressure is highly variable. When adequately sedated patient is blood pressure is low and despite fluid bolus was not at satisfactory levels. And she temporarily needed Levophed infusion for few hours 12/08. When off sedation she is hypertensive. Precedex was switched to versed. Home Blood pressure medications are on hold (7) Hyperkalemia: Code(s): E87.5 - Hyperkalemia Status: Acute Assessment and Plan: resolved with a dose of Kayexalate (8) Abdominal distension: Code(s): R14.0 - Abdominal distension (gaseous) Status: Acute Assessment and Plan: improving after bowel movements Persistent nonspecific diffuse gaseous distention of colon with proximal predominance and with minimal stool at the rectum. - continue miralax and prn dulcolax (9) Sepsis: Qualifiers: Sepsis type: sepsis due to unspecified organism Sepsis acute organ dysfunction status: unspecified Qualified Code(s): A41.9 - Sepsis, unspecified organism Code(s): A41.9 - Sepsis, unspecified organism Status: Acute Assessment and Plan: patient with leukocytosis, hypotension - blood cultures positive for gram positive cocci in clusters 1/2 bottles - urine cultures growing Karla albicans, given elevated white count, borderline blood pressures, started Diflucan -Yeast was isolated in sputum cultures - WBC count improving, - continue cefepime and vancomycin which were initiated on 12/14 Additional Plan DVT prophylaxis - Lovenox on hold for tracheostomy placement today Stress ulcer prophylaxis - IV Pepcid Nutrition - tube feeds currently on hold for tracheostomy placement today Code Status - Full
[2020-12-17 17:52] LABS: Glucose Point of Care 210 mg/dl (65-105)
[2020-12-18] VITALS (27 sets, daily range): BP systolic 96–120; BP diastolic 47–67; PULSE 9–117; RESP 15–23; TEMP 37.1–37.7; O2SAT 91–97
[2020-12-18 00:37] LABS: Glucose Point of Care 95 mg/dl (65-105)
[2020-12-18 05:09] LABS: Alveolar/Arterial O2 Gradient 164.7 mmHg; Base Excess ABG 7.2 mEq/l (+/-2.0); Carboxyhemoglobin 0.3 % THb (0-2.0); Fractional Inspired Oxygen 40 %; HCO3 ABG 30.9 mEq/l (22.0-26.0); Methemoglobin ABG 0.5 %THb (0-1.5); Oxygen Content ABG 8.8 %vol (16.0-22.0); Oxyhemoglobin 92.4 % THb (90.0-100.0); PCO2 ABG 40.3 mmHg (35.0-45.0); PO2 ABG 74.2 mmHg (80.0-100.0); PO2 FiO2 Ratio Arterial Blood 1.85 %; Reduced Hemoglobin 6.8 %THb (0-5.0); pH ABG 7.503 (7.350-7.450)
[2020-12-18 05:14] LABS: Total Hemoglobin 6.7 g/dL (12.0-18.0)
[2020-12-18 05:16] LABS: Device VENTILATOR; Modified Allen's Test Pass; Site Drawn LEFT RADIAL
[2020-12-18 05:17] LABS: Arterial Blood Gas PEEP 5 cmH2O; Arterial Blood Gas Pressure Support 12 cmH2O; Arterial Blood Gas Vent Mode SPONTANEOUS
[2020-12-18] MEDS: CENTRAL LINE FLUSH 10 ML IV PUSH ×3 (05:19→20:49)
[2020-12-18] MEDS: LEVOTHYROXINE SODIUM 50 MCG TABLET PO (05:20)
[2020-12-18 05:28] LABS: Hematocrit 24.4 % (37.0-47.0); Hemoglobin 7.8 g/dL (12.0-15.0); Mean Corpuscular Hemoglobin 28.5 pg (26-34); Mean Corpuscular Volume 89.1 fl (80-100); Mean Platelet Volume 10.5 fl (7.4-10.4); Platelet Count Result 223 k/mm3 (150-375); Red Blood Count 2.74 M/mm3 (4.2-5.4); Red Cell Distribution Width 17.2 % (11.5-14.5); White Blood Count 17.2 K/mm3 (4.5-10.0)
[2020-12-18 05:41] LABS: Anion Gap 2 mmol/L (8-16); Blood Urea Nitrogen 27 mg/dL (7-17); Calcium 8.8 mg/dL (8.4-10.2); Carbon Dioxide 36 mmol/L (22-30); Chloride 98 mmol/L (98-107); Estimated CRCL calculation 48 ml/min; Estimated Glomerular Filt Rate > 60; Glucose 175 mg/dL (65-110); Magnesium 1.9 mg/dL (1.6-2.3); Phosphorus 3.8 mg/dL (2.5-4.5); Potassium 3.8 mmol/L (3.4-5.0); Sodium 136 mmol/L (137-145)
[2020-12-18] MEDS: INSULIN GLARGINE (*BKC) 100 UNITS/ML 20 UNITS SUB-Q (08:31)
[2020-12-18] MEDS: FUROSEMIDE INJ 40 MG/4 ML VIAL 20 MG IV PUSH (08:31)
[2020-12-18] MEDS: ENOXAPARIN 40 MG/0.4 ML SYRINGE SUB-Q (08:36)
[2020-12-18] MEDS: ATORVASTATIN 40 MG TABLET PO (08:37)
[2020-12-18] MEDS: BUDESONIDE RESPULE NEB 0.5 MG/2 ML AMP INHALATION ×2 (08:37→20:20)
[2020-12-18] MEDS: MULTIVITAMINS /C LUTEIN (CENTRUM SILVER) TABLET *BKC 1 TAB PO (08:37)
[2020-12-18] MEDS: methylPREDNISolone SOD SUCC 40 MG VIAL IV PUSH (08:37)
[2020-12-18] MEDS: FAMOTIDINE 20 MG/2 ML VIAL IV PUSH ×2 (08:37→20:31)
[2020-12-18] MEDS: IPRATROPIUM BR 0.02% INH SOLN 0.5 MG/2.5 ML VIAL INHALATION ×3 (08:37→19:55)
[2020-12-18] MEDS: CALCIUM CARBONATE (OSCAL) 500 MG TABLET PO (08:37)
[2020-12-18] MEDS: ALBUTEROL SULFATE NEB 2.5 MG/0.5 ML INH INHALATION ×3 (08:37→19:55)
[2020-12-18] MEDS: polyethylene glycoL 3350 17 GM POWD.PACK PO (08:37)
[2020-12-18] MEDS: ASPIRIN 81 MG ENTERIC TABLET PO (08:37)
[2020-12-18] MEDS: MINERAL OIL/WHITE PETROLATUM OINTMENT 1 APPLIC EACH EYE ×2 (08:38→20:33)
[2020-12-18] MEDS: FLUCONAZOLE 200 MG/NACL 100 ML 200 MG/100 ML BAG 100 MG IVPB (10:25)
[2020-12-18] MEDS: ALPRAZolam (*CRX) 0.25 MG TABLET PO (10:25)
[2020-12-18 12:11] LABS: Glucose Point of Care 193 mg/dl (65-105)
[2020-12-18] MEDS: HYDROcodone/acetaminophen (*CRX) 5-325 MG TABLET 1 TAB FEED TUBE ×2 (14:48→20:44)
[2020-12-18] MEDS: ALPRAZolam (*CRX) 0.25 MG TABLET FEED TUBE ×2 (14:49→20:44)
--- NOTE | 2020-12-18 15:24 | WPDINTPN ---
Progress Note: A&P Assessment and Plan (1) Acute hypercapnic respiratory failure: Code(s): J96.02 - Acute respiratory failure with hypercapnia Status: Acute Assessment and Plan: acute hypercapnic respiratory failure likely related to COPD exacerbation and/or pneumonia - patient was intubated on 12/01/2020 and extubated on 12/05. She was placed on BiPAP in the evening which she did not tolerate. Patient was tried with Ativan and Precedex drip to treat her anxiety with no help - 12/06 patient was reintubated to worsening respiratory distress and she would not tolerate BiPAP without significantly sedation. - chest x-ray and ABG reviewed. - Patient has severe emphysema on her CTA chest and minimal bilateral air movement - continue bronchodilators, steroids - PEG placed on 12/14 - tracheostomy placed on 12/16 - patient well on pressure support of 12/5 all day long yesterday and overnight. This morning she got a little anxious and was using accessory muscles so placed her back on ASV mode. (2) COPD exacerbation: Code(s): J44.1 - Chronic obstructive pulmonary disease with (acute) exacerbation Status: Acute Assessment and Plan: continue mechanical ventilation, A - continue steroids, bronchodilators and antibiotics - failure to wean (3) Hypothyroidism: Code(s): E03.9 - Hypothyroidism, unspecified Status: Acute Assessment and Plan: continue levothyroxine (4) DVT prophylaxis: Code(s): Z29.9 - Encounter for prophylactic measures, unspecified Status: Acute Assessment and Plan: continue Lovenox - lower extremity swelling will obtain venous Doppler (5) Hyperglycemia: Code(s): R73.9 - Hyperglycemia, unspecified Status: Acute Assessment and Plan: likely secondary to steroids continue Lantus and sliding scale insulin (6) Hypotension: Code(s): I95.9 - Hypotension, unspecified Status: Acute Assessment and Plan: patient's blood pressure is highly variable. When adequately sedated patient is blood pressure is low and despite fluid bolus was not at satisfactory levels. And she temporarily needed Levophed infusion for few hours 12/08. When off sedation she is hypertensive. Precedex was switched to versed. Home Blood pressure medications are on hold (7) Hyperkalemia: Code(s): E87.5 - Hyperkalemia Status: Acute Assessment and Plan: resolved with a dose of Kayexalate (8) Abdominal distension: Code(s): R14.0 - Abdominal distension (gaseous) Status: Acute Assessment and Plan: improving after bowel movements Persistent nonspecific diffuse gaseous distention of colon with proximal predominance and with minimal stool at the rectum. - continue miralax and prn dulcolax (9) Sepsis: Qualifiers: Sepsis type: sepsis due to unspecified organism Sepsis acute organ dysfunction status: unspecified Qualified Code(s): A41.9 - Sepsis, unspecified organism Code(s): A41.9 - Sepsis, unspecified organism Status: Acute Assessment and Plan: patient with leukocytosis, hypotension - blood cultures positive for coag-negative staph aureus. VANCOMYCIN WAS DISCONTINUED ON 12/17/2020 - urine cultures growing Karla albicans, given elevated white count, borderline blood pressures, started Diflucan ON 12/17/2020 -Yeast was isolated in sputum cultures - WBC count improving, - continue cefepime ( Initiated on 12/14/2020) Additional Plan DVT prophylaxis - Lovenox Stress ulcer prophylaxis - IV Pepcid Nutrition - tolerating tube feeds Code Status - Full Code Critical care time spent: 31 minutes This dictation may have been done utilizing a voice recognition system. Attempts have been made to correct errors. However, there may be uncorrected grammatical, spelling, and recognition errors present. Due to a high probability of clinically significant, life th
--- NOTE | 2020-12-18 15:55 | PM.IMPN ---
Progress Note: A&P Assessment and Plan (1) Acute hypercapnic respiratory failure: Code(s): J96.02 - Acute respiratory failure with hypercapnia Status: Acute Assessment and Plan: status post trach placement acute hypercapnic respiratory failure likely related to COPD exacerbation and/or pneumonia - patient was intubated on 12/01/2020 and extubated on 12/05. She was placed on BiPAP in the evening which she did not tolerate. Patient was tried with Ativan and Precedex drip to treat her anxiety with no help - 12/06 patient was reintubated to worsening respiratory distress and she would not tolerate BiPAP without significantly sedation. - chest x-ray and ABG reviewed. - Patient has severe emphysema on her CTA chest and minimal bilateral air movement - continue bronchodilators, steroids - PEG placed on 12/14 - tracheostomy placed on 12/16 - patient well on pressure support of 12/5 all day long yesterday and overnight. This morning she got a little anxious and was using accessory muscles so placed her back on ASV mode. (2) COPD exacerbation: Code(s): J44.1 - Chronic obstructive pulmonary disease with (acute) exacerbation Status: Acute Assessment and Plan: trial of pressure support continue mechanical ventilation, A - continue steroids, bronchodilators and antibiotics - failure to wean (3) Hypothyroidism: Code(s): E03.9 - Hypothyroidism, unspecified Status: Acute Assessment and Plan: continue levothyroxine (4) DVT prophylaxis: Code(s): Z29.9 - Encounter for prophylactic measures, unspecified Status: Acute Assessment and Plan: continue Lovenox - lower extremity swelling will obtain venous Doppler (5) Hyperglycemia: Code(s): R73.9 - Hyperglycemia, unspecified Status: Acute Assessment and Plan: likely secondary to steroids continue Lantus and sliding scale insulin (6) Hypotension: Code(s): I95.9 - Hypotension, unspecified Status: Acute Assessment and Plan: patient's blood pressure is highly variable. When adequately sedated patient is blood pressure is low and despite fluid bolus was not at satisfactory levels. And she temporarily needed Levophed infusion for few hours 12/08. When off sedation she is hypertensive. Precedex was switched to versed. Home Blood pressure medications are on hold (7) Hyperkalemia: Code(s): E87.5 - Hyperkalemia Status: Acute Assessment and Plan: resolved with a dose of Kayexalate (8) Abdominal distension: Code(s): R14.0 - Abdominal distension (gaseous) Status: Acute Assessment and Plan: improving after bowel movements Persistent nonspecific diffuse gaseous distention of colon with proximal predominance and with minimal stool at the rectum. - continue miralax and prn dulcolax (9) Sepsis: Qualifiers: Sepsis type: sepsis due to unspecified organism Sepsis acute organ dysfunction status: unspecified Qualified Code(s): A41.9 - Sepsis, unspecified organism Code(s): A41.9 - Sepsis, unspecified organism Status: Acute Assessment and Plan: patient with leukocytosis, hypotension - blood cultures positive for coag-negative staph aureus. VANCOMYCIN WAS DISCONTINUED ON 12/17/2020 - urine cultures growing Karla albicans, given elevated white count, borderline blood pressures, started Diflucan ON 12/17/2020 -Yeast was isolated in sputum cultures - WBC count improving, - continue cefepime ( Initiated on 12/14/2020) Additional Plan DVT prophylaxis - Lovenox Stress ulcer prophylaxis - IV Pepcid Nutrition - tolerating tube feeds Code Status - Full Code Critical care time spent: 31 minutes This dictation may have been done utilizing a voice recognition system. Attempts have been made to correct errors. However, there may be uncorrected grammatical, spelling, and recognition errors present.
[2020-12-18 19:23] LABS: Glucose Point of Care 243 mg/dl (65-105)
[2020-12-18] MEDS: INSULIN ASPART (*BKC) 100 UNITS/ML SUB-Q (19:24)
[2020-12-18] MEDS: CALCIUM CARBONATE (OSCAL) 500 MG TABLET FEED TUBE (19:25)
[2020-12-18 20:10] LABS: IFOB Positive Control Positive; Immunochemical Fecal Occult Bl Positive (N)
[2020-12-18] MEDS: SODIUM CHLORIDE NASAL GEL 14.1 GM 1 APPLIC NASAL (20:32)
[2020-12-18] MEDS: TOLNAFTATE 1% POWDER 45 GM BTL 1 APPLIC TOPICAL (20:32)
[2020-12-18 23:41] LABS: Glucose Point of Care 195 mg/dl (65-105)
[2020-12-19] VITALS (28 sets, daily range): BP systolic 89–166; BP diastolic 45–73; PULSE 69–119; RESP 14–26; TEMP 37.1–37.6; O2SAT 90–100
[2020-12-19 00:53] LABS: Glucose Point of Care 158 mg/dl (65-105)
[2020-12-19] MEDS: ALBUTEROL SULFATE NEB 2.5 MG/0.5 ML INH INHALATION ×4 (01:45→20:07)
[2020-12-19] MEDS: IPRATROPIUM BR 0.02% INH SOLN 0.5 MG/2.5 ML VIAL INHALATION ×4 (01:45→20:06)
[2020-12-19 04:37] LABS: Alveolar/Arterial O2 Gradient 129.2 mmHg; Base Excess ABG 8.9 mEq/l (+/-2.0); Carboxyhemoglobin 0.3 % THb (0-2.0); Fractional Inspired Oxygen 35 %; Methemoglobin ABG 0.3 %THb (0-1.5); Oxygen Content ABG 13.9 %vol (16.0-22.0); Oxygen Saturation ABG 95.2 % (95.0-100.0); PCO2 ABG 43.4 mmHg (35.0-45.0); PO2 ABG 69.9 mmHg (80.0-100.0); Reduced Hemoglobin 7.4 %THb (0-5.0); Total Hemoglobin 10.7 g/dL (12.0-18.0); pH ABG 7.499 (7.350-7.450)
[2020-12-19 04:40] LABS: Site Drawn RIGHT RADIAL
[2020-12-19 04:40] LABS: Hematocrit 24.2 % (37.0-47.0); Hemoglobin 7.7 g/dL (12.0-15.0); Mean Corpuscular HGB Conc 31.8 g/dl (32-36); Mean Corpuscular Hemoglobin 28.3 pg (26-34); Mean Platelet Volume 11.1 fl (7.4-10.4); Platelet Count Result 217 k/mm3 (150-375); Red Blood Count 2.72 M/mm3 (4.2-5.4); Red Cell Distribution Width 17.1 % (11.5-14.5); White Blood Count 15.7 K/mm3 (4.5-10.0)
[2020-12-19 04:41] LABS: Device VENTILATOR; Modified Allen's Test Pass
[2020-12-19 04:42] LABS: Arterial Blood Gas PEEP 5 cmH2O; Arterial Blood Gas Vent Mode ASV; Peak Inspiratory Pressure 35 cmH2O
[2020-12-19 04:54] LABS: Anion Gap 2 mmol/L (8-16); Blood Urea Nitrogen 27 mg/dL (7-17); Calcium 8.9 mg/dL (8.4-10.2); Carbon Dioxide 37 mmol/L (22-30); Chloride 97 mmol/L (98-107); Estimated CRCL calculation 54 ml/min; Estimated Glomerular Filt Rate > 60; Glucose 91 mg/dL (65-110); Magnesium 1.9 mg/dL (1.6-2.3); Potassium 3.8 mmol/L (3.4-5.0); Sodium 136 mmol/L (137-145)
[2020-12-19] MEDS: ALTEPLASE 2 MG VIAL (CATHFLO) IV PUSH ×2 (05:19→22:08)
[2020-12-19] MEDS: CENTRAL LINE FLUSH 10 ML IV PUSH ×3 (06:17→21:14)
[2020-12-19] MEDS: BUDESONIDE RESPULE NEB 0.5 MG/2 ML AMP INHALATION ×2 (08:09→20:07)
[2020-12-19] MEDS: MULTIVITAMINS /C LUTEIN (CENTRUM SILVER) TABLET *BKC 1 TAB FEED TUBE (08:21)
[2020-12-19] MEDS: LEVOTHYROXINE SODIUM 50 MCG TABLET FEED TUBE (08:21)
[2020-12-19] MEDS: CALCIUM CARBONATE (OSCAL) 500 MG TABLET FEED TUBE ×2 (08:22→17:53)
[2020-12-19] MEDS: ATORVASTATIN 40 MG TABLET PO (08:22)
[2020-12-19] MEDS: ASPIRIN 81 MG ENTERIC TABLET PO (08:22)
[2020-12-19] MEDS: methylPREDNISolone SOD SUCC 40 MG VIAL IV PUSH (08:23)
[2020-12-19] MEDS: ENOXAPARIN 40 MG/0.4 ML SYRINGE SUB-Q (08:23)
[2020-12-19] MEDS: CHOLECALCIFEROL 1,000 UNITS TABLET 2000 UNITS FEED TUBE (08:23)
[2020-12-19] MEDS: FAMOTIDINE 20 MG/2 ML VIAL IV PUSH ×2 (08:23→21:15)
[2020-12-19] MEDS: polyethylene glycoL 3350 17 GM POWD.PACK PO (08:23)
[2020-12-19] MEDS: TOLNAFTATE 1% POWDER 45 GM BTL 1 APPLIC TOPICAL ×2 (08:24→21:14)
[2020-12-19] MEDS: FLUCONAZOLE 200 MG/NACL 100 ML 200 MG/100 ML BAG 100 MG IVPB (08:54)
[2020-12-19] MEDS: INSULIN GLARGINE (*BKC) 100 UNITS/ML 20 UNITS SUB-Q (08:55)
[2020-12-19 10:05] LABS: Iron 24 ug/dL (37-170)
[2020-12-19 10:48] LABS: Percent Iron Saturation 12 % (20-50)
--- NOTE | 2020-12-19 11:50 | WPDINTPN ---
Progress Note: A&P Assessment and Plan (1) Acute hypercapnic respiratory failure: Code(s): J96.02 - Acute respiratory failure with hypercapnia Status: Acute Assessment and Plan: acute hypercapnic respiratory failure likely related to COPD exacerbation and/or pneumonia - patient was intubated on 12/01/2020 and extubated on 12/05. She was placed on BiPAP in the evening which she did not tolerate. Patient was tried with Ativan and Precedex drip to treat her anxiety with no help - 12/06 patient was reintubated to worsening respiratory distress and she would not tolerate BiPAP without significantly sedation. - chest x-ray and ABG reviewed. - Patient has severe emphysema on her CTA chest and minimal bilateral air movement - continue bronchodilators, steroids - PEG placed on 12/14 - tracheostomy placed on 12/16 - patient is tolerating pressure support 09/25/2009 in the day and ASV during the night (2) COPD exacerbation: Code(s): J44.1 - Chronic obstructive pulmonary disease with (acute) exacerbation Status: Acute Assessment and Plan: continue mechanical ventilation, A - continue steroids, bronchodilators and antibiotics - failure to wean, status post tracheostomy, await LTAC placement (3) Hypothyroidism: Code(s): E03.9 - Hypothyroidism, unspecified Status: Acute Assessment and Plan: continue levothyroxine (4) DVT prophylaxis: Code(s): Z29.9 - Encounter for prophylactic measures, unspecified Status: Acute Assessment and Plan: continue Lovenox - lower extremity swelling will obtain venous Doppler (5) Hyperglycemia: Code(s): R73.9 - Hyperglycemia, unspecified Status: Acute Assessment and Plan: likely secondary to steroids continue Lantus and sliding scale insulin (6) Hypotension: Code(s): I95.9 - Hypotension, unspecified Status: Acute Assessment and Plan: patient's blood pressure is highly variable. When adequately sedated patient is blood pressure is low and despite fluid bolus was not at satisfactory levels. And she temporarily needed Levophed infusion for few hours 12/08. When off sedation she is hypertensive. Precedex was switched to versed. Home Blood pressure medications are on hold (7) Hyperkalemia: Code(s): E87.5 - Hyperkalemia Status: Acute Assessment and Plan: resolved with a dose of Kayexalate (8) Abdominal distension: Code(s): R14.0 - Abdominal distension (gaseous) Status: Acute Assessment and Plan: improving after bowel movements Persistent nonspecific diffuse gaseous distention of colon with proximal predominance and with minimal stool at the rectum. - continue miralax and prn dulcolax (9) Sepsis: Qualifiers: Sepsis type: sepsis due to unspecified organism Sepsis acute organ dysfunction status: unspecified Qualified Code(s): A41.9 - Sepsis, unspecified organism Code(s): A41.9 - Sepsis, unspecified organism Status: Acute Assessment and Plan: patient with leukocytosis, hypotension - blood cultures positive for coag-negative staph aureus. VANCOMYCIN WAS DISCONTINUED ON 12/17/2020 - urine cultures growing Karla albicans, given elevated white count, borderline blood pressures, started Diflucan ON 12/17/2020 -Yeast was isolated in sputum cultures - WBC count improving, - continue cefepime ( Initiated on 12/14/2020) Additional Plan DVT prophylaxis - Lovenox Stress ulcer prophylaxis - IV Pepcid Nutrition - tolerating tube feeds Code Status - Full Code Critical care time spent: 31 minutes This dictation may have been done utilizing a voice recognition system. Attempts have been made to correct errors. However, there may be uncorrected grammatical, spelling, and recognition errors present. Due to a high probability of clinically significant, life threatening deterioration, the patient required my
--- NOTE | 2020-12-19 12:26 | PCDIET ---
ICU Rounding Note: Patient tolerating Jevity 1.2 at 50mL/hr with 30mL water flush every 4 hours via PEG. Last recorded weight is 77kg which is down from last review. -I/O. Bowel Motility: BM x 2 on 12/18/20. Labs Reviewed:WBC (15.7), RBC (2.72), Hgb (7.7), Hct (24.2), Glu (158), BUN (27), Na (136) Meds Noted: Albuterol, Lipitor, Pulmicort, Oscal 500, Maxipime, Pepcid, Fentanyl, Diflucan, Apresoline, Lantus, Atrovent, Synthroid, Solu Medrol, Centrum, Miralax, Vitamin D, Tolnaftate Additional Notes: Buttocks/groin macerated. Following daily in ICU rounds. Assessing/reassessing every Saturday/Saturday.
[2020-12-19 12:29] LABS: Glucose Point of Care 170 mg/dl (65-105)
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
[2020-12-19] MEDS: MIDAZOLAM 100MG/NS 100ML(*CRX) 100 MG/100 ML BAG IV CONT (17:54)
[2020-12-19 18:14] LABS: Glucose Point of Care 241 mg/dl (65-105)
[2020-12-19] MEDS: INSULIN ASPART (*BKC) 100 UNITS/ML SUB-Q (18:16)
[2020-12-19] MEDS: SODIUM CHLORIDE NASAL GEL 14.1 GM 1 APPLIC NASAL (21:14)
[2020-12-19] MEDS: MINERAL OIL/WHITE PETROLATUM OINTMENT 1 APPLIC EACH EYE (21:14)
[2020-12-20] VITALS (32 sets, daily range): BP systolic 102–135; BP diastolic 51–69; PULSE 76–128; RESP 15–29; TEMP 37.2–37.7; O2SAT 88–100
[2020-12-20 00:02] LABS: Glucose Point of Care 172 mg/dl (65-105)
[2020-12-20] MEDS: ALBUTEROL SULFATE NEB 2.5 MG/0.5 ML INH INHALATION ×4 (02:47→20:24)
[2020-12-20] MEDS: IPRATROPIUM BR 0.02% INH SOLN 0.5 MG/2.5 ML VIAL INHALATION ×4 (02:47→20:23)
[2020-12-20 05:41] LABS: Glucose Point of Care 142 mg/dl (65-105)
[2020-12-20] MEDS: CENTRAL LINE FLUSH 10 ML IV PUSH ×3 (05:53→21:17)
[2020-12-20] MEDS: LEVOTHYROXINE SODIUM 50 MCG TABLET FEED TUBE (05:53)
[2020-12-20 05:57] LABS: Basophils Percent Auto 0.1 % (0.2-1.2); Eosinophils Percent Auto 0.2 % (0-4.4); Hematocrit 24.2 % (37.0-47.0); Hemoglobin 7.9 g/dL (12.0-15.0); Immature Granulocyte Absolute 0.06 K/mm3 (0.00-0.031); Immature Granulocyte Percent A 0.4 % (0-0.5); Lymphocytes Absolute Auto 1.82 K/mm3 (0.9-3.2); Lymphocytes Percent Auto 12.6 % (18.3-44.2); Mean Corpuscular HGB Conc 32.6 g/dl (32-36); Mean Corpuscular Hemoglobin 28.4 pg (26-34); Mean Corpuscular Volume 87.1 fl (80-100); Mean Platelet Volume 10.4 fl (7.4-10.4); Monocytes Absolute Auto 0.7 K/mm3 (0.1-0.6); Monocytes Percent Auto 5.1 % (2.6-8.5); Neutrophils Absolute Auto 11.7 K/mm3 (1.3-6.7); Neutrophils Percent Auto 81.6 % (45.5-73.1); Platelet Count Result 224 k/mm3 (150-375); Red Blood Count 2.78 M/mm3 (4.2-5.4); Red Cell Distribution Width 17.2 % (11.5-14.5); White Blood Count 14.4 K/mm3 (4.5-10.0)
[2020-12-20 06:02] LABS: Base Excess ABG 9.4 mEq/l (+/-2.0); Carboxyhemoglobin 0.3 % THb (0-2.0); Fractional Inspired Oxygen 30 %; HCO3 ABG 32.8 mEq/l (22.0-26.0); Methemoglobin ABG 0.3 %THb (0-1.5); Oxygen Content ABG 11.2 %vol (16.0-22.0); Oxygen Saturation ABG 93.9 % (95.0-100.0); Oxyhemoglobin 90.3 % THb (90.0-100.0); PCO2 ABG 39.6 mmHg (35.0-45.0); PO2 ABG 61.4 mmHg (80.0-100.0); PO2 FiO2 Ratio Arterial Blood 2.05 %; Reduced Hemoglobin 9.1 %THb (0-5.0); Total Hemoglobin 8.8 g/dL (12.0-18.0)
[2020-12-20 06:04] LABS: pH ABG 7.536 (7.350-7.450)
[2020-12-20 06:05] LABS: Device VENTILATOR; Modified Allen's Test Pass; Site Drawn LEFT RADIAL
[2020-12-20 06:06] LABS: Arterial Blood Gas Minute Volume 5 LPM; Arterial Blood Gas PEEP 5 cmH2O; Arterial Blood Gas Vent Mode ASV
[2020-12-20 06:36] LABS: Anion Gap 4 mmol/L (8-16); Blood Urea Nitrogen 25 mg/dL (7-17); Carbon Dioxide 35 mmol/L (22-30); Chloride 98 mmol/L (98-107); Estimated CRCL calculation 47 ml/min; Estimated Glomerular Filt Rate > 60; Glucose 127 mg/dL (65-110); Magnesium 1.8 mg/dL (1.6-2.3); Phosphorus 3.9 mg/dL (2.5-4.5); Potassium 3.8 mmol/L (3.4-5.0); Sodium 137 mmol/L (137-145)
[2020-12-20] MEDS: ENOXAPARIN 40 MG/0.4 ML SYRINGE SUB-Q (08:11)
[2020-12-20] MEDS: CHOLECALCIFEROL 1,000 UNITS TABLET 2000 UNITS FEED TUBE (08:12)
[2020-12-20] MEDS: methylPREDNISolone SOD SUCC 40 MG VIAL IV PUSH (08:12)
[2020-12-20] MEDS: FAMOTIDINE 20 MG/2 ML VIAL IV PUSH ×2 (08:12→21:17)
[2020-12-20] MEDS: MINERAL OIL/WHITE PETROLATUM OINTMENT 1 APPLIC EACH EYE ×2 (08:12→23:20)
[2020-12-20] MEDS: ASPIRIN 81 MG ENTERIC TABLET PO (08:12)
[2020-12-20] MEDS: CALCIUM CARBONATE (OSCAL) 500 MG TABLET FEED TUBE ×2 (08:12→17:20)
[2020-12-20] MEDS: ATORVASTATIN 40 MG TABLET PO (08:12)
[2020-12-20] MEDS: MULTIVITAMINS /C LUTEIN (CENTRUM SILVER) TABLET *BKC 1 TAB FEED TUBE (08:12)
[2020-12-20] MEDS: TOLNAFTATE 1% POWDER 45 GM BTL 1 APPLIC TOPICAL ×2 (08:13→21:17)
[2020-12-20] MEDS: INSULIN GLARGINE (*BKC) 100 UNITS/ML 20 UNITS SUB-Q (08:21)
[2020-12-20] MEDS: FLUCONAZOLE 200 MG/NACL 100 ML 200 MG/100 ML BAG 100 MG IVPB (08:35)
[2020-12-20] MEDS: BUDESONIDE RESPULE NEB 0.5 MG/2 ML AMP INHALATION ×2 (08:37→20:24)
--- NOTE | 2020-12-20 11:42 | PCDIET ---
Nutrition Follow-Up Complete: Nutrition Diagnosis: Inadequate oral intake related to COPD exacerbation as evidenced by G-tube placement and NPO diet order. Nutrition Goal: Patient to meet estimated nutritional needs. Goal met. Patient tolerating Jevity 1.2 at 50mL/hr goal rate with 30mL water flush every 4 hours. Last recorded weight is 73 kg which is down from last review, but up from admission. -I/O since last review. Bowel Motility: RN reports loose stools yesterday and one loose stool this morning. Miralax not given today, and MD changing Miralax to PRN. Labs Reviewed: WBC (14.4), RBC (2.78), Hgb (7.9), Hct (24.2), Glu (127), BUN (25) Meds Noted: Albuterol, Cefepime, Ativan, Lipitor, Pepcid, Pulmicort, Fentanyl, Synthroid, Vitamin D, Oscal, Diflucan, Lantus, Centrum Additional Notes: Buttocks and groin macerated. Will continue to monitor with same goal. Nutrition Monitoring and Evaluation: Follow up every Saturday/Saturday.
[2020-12-20 12:13] LABS: Glucose Point of Care 173 mg/dl (65-105)
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
--- NOTE | 2020-12-20 15:35 | WPDINTPN ---
Progress Note: A&P Assessment and Plan (1) Acute hypercapnic respiratory failure: Code(s): J96.02 - Acute respiratory failure with hypercapnia Status: Acute Assessment and Plan: acute hypercapnic respiratory failure likely related to COPD exacerbation and/or pneumonia - patient was intubated on 12/01/2020 and extubated on 12/05. She was placed on BiPAP in the evening which she did not tolerate. Patient was tried with Ativan and Precedex drip to treat her anxiety with no help - 12/06 patient was reintubated to worsening respiratory distress and she would not tolerate BiPAP without significantly sedation. - chest x-ray and ABG reviewed. - Patient has severe emphysema on her CTA chest and minimal bilateral air movement - continue bronchodilators - DC steroids - PEG placed on 12/14 - tracheostomy placed on 12/16 - decrease ASV to 80%. daily PSV as tolerated - wean off sedation (2) COPD exacerbation: Code(s): J44.1 - Chronic obstructive pulmonary disease with (acute) exacerbation Status: Acute Assessment and Plan: continue mechanical ventilation, A - continue bronchodilators - she has completed course of antibiotics. - will DC steroids - failure to wean, status post tracheostomy, await LTAC placement (3) Hypothyroidism: Code(s): E03.9 - Hypothyroidism, unspecified Status: Acute Assessment and Plan: continue levothyroxine (4) DVT prophylaxis: Code(s): Z29.9 - Encounter for prophylactic measures, unspecified Status: Acute Assessment and Plan: continue Lovenox - lower extremity swelling will obtain venous Doppler (5) Hyperglycemia: Code(s): R73.9 - Hyperglycemia, unspecified Status: Acute Assessment and Plan: likely secondary to steroids continue Lantus and sliding scale insulin (6) Hyperkalemia: Code(s): E87.5 - Hyperkalemia Status: Acute Assessment and Plan: resolved with a dose of Kayexalate (7) Sepsis: Qualifiers: Sepsis type: sepsis due to unspecified organism Sepsis acute organ dysfunction status: unspecified Qualified Code(s): A41.9 - Sepsis, unspecified organism Code(s): A41.9 - Sepsis, unspecified organism Status: Acute Assessment and Plan: patient with leukocytosis, hypotension - blood cultures positive for coag-negative staph aureus. VANCOMYCIN WAS DISCONTINUED ON 12/17/2020. patient currently on cefepime (Initiated on 12/14/2020) - urine cultures growing Karla albicans, given elevated white count, borderline blood pressures, patient was started Diflucan ON 12/17/2020 -Yeast was isolated in sputum cultures - WBC count improving, patient afebrile Additional Plan DVT prophylaxis - Lovenox Stress ulcer prophylaxis - IV Pepcid Nutrition - tolerating tube feeds Code Status - Full Code She is awaiting transfer to LTAC Critical care time spent: 31 minutes This dictation may have been done utilizing a voice recognition system. Attempts have been made to correct errors. However, there may be uncorrected grammatical, spelling, and recognition errors present. Due to a high probability of clinically significant, life threatening deterioration, the patient required my highest level of preparedness to intervene emergently and I personally spent this critical care time directly and personally managing the patient. This critical care time included obtaining a history; examining the patient; pulse oximetry; ordering and review of studies; arranging urgent treatment with development of a management plan; evaluation of patient's response to treatment; frequent reassessment; and discussions with other providers. It was exclusive of separately billable procedures and treating other patients and teaching time. Please see Assessment and Plan section and the rest of the note for further information on patient assessment and treatment Subjective Date/time
[2020-12-20] MEDS: INSULIN ASPART (*BKC) 100 UNITS/ML SUB-Q ×2 (17:24→23:47)
[2020-12-20 17:27] LABS: Glucose Point of Care 235 mg/dl (65-105)
[2020-12-20] MEDS: HYDROcodone/acetaminophen (*CRX) 5-325 MG TABLET 1 TAB FEED TUBE (21:17)
[2020-12-20] MEDS: SODIUM CHLORIDE NASAL GEL 14.1 GM 1 APPLIC NASAL (21:17)
[2020-12-20] MEDS: ALPRAZolam (*CRX) 0.25 MG TABLET FEED TUBE (23:26)
--- NOTE | 2020-12-20 23:57 | PC.NURSE ---
blood sugar 230
[2020-12-21] VITALS (30 sets, daily range): BP systolic 98–128; BP diastolic 53–86; PULSE 75–95; RESP 12–23; TEMP 37.2–37.6; O2SAT 96–100
[2020-12-21 00:52] LABS: Glucose Point of Care 230 mg/dl (65-105)
[2020-12-21] MEDS: ALBUTEROL SULFATE NEB 2.5 MG/0.5 ML INH INHALATION ×4 (02:33→20:11)
[2020-12-21] MEDS: IPRATROPIUM BR 0.02% INH SOLN 0.5 MG/2.5 ML VIAL INHALATION ×4 (02:33→20:11)
[2020-12-21] MEDS: HYDROcodone/acetaminophen (*CRX) 5-325 MG TABLET 1 TAB FEED TUBE ×3 (04:13→23:40)
[2020-12-21 05:59] LABS: Glucose Point of Care 155 mg/dl (65-105)
[2020-12-21] MEDS: CENTRAL LINE FLUSH 10 ML IV PUSH ×3 (06:18→20:05)
[2020-12-21] MEDS: LEVOTHYROXINE SODIUM 50 MCG TABLET FEED TUBE (06:18)
[2020-12-21] MEDS: BUDESONIDE RESPULE NEB 0.5 MG/2 ML AMP INHALATION ×2 (08:03→20:11)
[2020-12-21] MEDS: CALCIUM CARBONATE (OSCAL) 500 MG TABLET FEED TUBE ×2 (09:03→17:32)
[2020-12-21] MEDS: CHOLECALCIFEROL 1,000 UNITS TABLET 2000 UNITS FEED TUBE (09:03)
[2020-12-21] MEDS: ENOXAPARIN 40 MG/0.4 ML SYRINGE SUB-Q (09:04)
[2020-12-21] MEDS: TOLNAFTATE 1% POWDER 45 GM BTL 1 APPLIC TOPICAL ×2 (09:12→20:05)
[2020-12-21] MEDS: ASPIRIN 81 MG ENTERIC TABLET PO (09:24)
[2020-12-21] MEDS: MULTIVITAMINS /C LUTEIN (CENTRUM SILVER) TABLET *BKC 1 TAB FEED TUBE (09:24)
[2020-12-21] MEDS: FAMOTIDINE 20 MG/2 ML VIAL IV PUSH ×2 (09:24→20:05)
[2020-12-21] MEDS: ATORVASTATIN 40 MG TABLET PO (09:25)
[2020-12-21] MEDS: FLUCONAZOLE 200 MG/NACL 100 ML 200 MG/100 ML BAG 100 MG IVPB (09:54)
--- NOTE | 2020-12-21 09:58 | WPDINTPN ---
Progress Note: A&P Assessment and Plan (1) Acute hypercapnic respiratory failure: Code(s): J96.02 - Acute respiratory failure with hypercapnia Status: Acute Assessment and Plan: acute hypercapnic respiratory failure likely related to COPD exacerbation and/or pneumonia - patient was intubated on 12/01/2020 and extubated on 12/05. She was placed on BiPAP in the evening which she did not tolerate. Patient was tried with Ativan and Precedex drip to treat her anxiety with no help - 12/06 patient was reintubated to worsening respiratory distress and she would not tolerate BiPAP without significantly sedation. - chest x-ray and ABG reviewed. - Patient has severe emphysema on her CTA chest and minimal bilateral air movement - continue bronchodilators - off steroids - PEG placed on 12/14 - tracheostomy placed on 12/16 - continue ASV to 80%. daily PSV as tolerated. She failed yesterday due to high RSBI. Try again today - sedation infusions have been weaned off (2) COPD exacerbation: Code(s): J44.1 - Chronic obstructive pulmonary disease with (acute) exacerbation Status: Acute Assessment and Plan: continue mechanical ventilation, A - continue bronchodilators - she has completed course of antibiotics. - off steroids - failure to wean, status post tracheostomy, await LTAC placement (3) Hypothyroidism: Code(s): E03.9 - Hypothyroidism, unspecified Status: Acute Assessment and Plan: continue levothyroxine (4) DVT prophylaxis: Code(s): Z29.9 - Encounter for prophylactic measures, unspecified Status: Acute Assessment and Plan: continue Lovenox - lower extremity swelling will obtain venous Doppler (5) Hyperglycemia: Code(s): R73.9 - Hyperglycemia, unspecified Status: Acute Assessment and Plan: likely secondary to steroids continue Lantus and sliding scale insulin (6) Sepsis: Qualifiers: Sepsis type: sepsis due to unspecified organism Sepsis acute organ dysfunction status: unspecified Qualified Code(s): A41.9 - Sepsis, unspecified organism Code(s): A41.9 - Sepsis, unspecified organism Status: Acute Assessment and Plan: patient with leukocytosis, hypotension - blood cultures positive for coag-negative staph aureus. VANCOMYCIN WAS DISCONTINUED ON 12/17/2020. patient currently on cefepime (Initiated on 12/14/2020) . will continue for 7 days - urine cultures growing Karla albicans, given elevated white count, borderline blood pressures, patient was started Diflucan ON 12/17/2020 -Yeast was isolated in sputum cultures - WBC count improving, patient afebrile Additional Plan DVT prophylaxis - Lovenox Stress ulcer prophylaxis - IV Pepcid Nutrition - tolerating tube feeds Code Status - Full Code She is awaiting transfer to LTAC Critical care time spent: 30 minutes This dictation may have been done utilizing a voice recognition system. Attempts have been made to correct errors. However, there may be uncorrected grammatical, spelling, and recognition errors present. Due to a high probability of clinically significant, life threatening deterioration, the patient required my highest level of preparedness to intervene emergently and I personally spent this critical care time directly and personally managing the patient. This critical care time included obtaining a history; examining the patient; pulse oximetry; ordering and review of studies; arranging urgent treatment with development of a management plan; evaluation of patient's response to treatment; frequent reassessment; and discussions with other providers. It was exclusive of separately billable procedures and treating other patients and teaching time. Please see Assessment and Plan section and the rest of the note for further information on patient assessment and treatment Subjective Date/time seen: 12/21/20 09:58 Overnight events re
[2020-12-21 12:29] LABS: Glucose Point of Care 174 mg/dl (65-105)
--- NOTE | 2020-12-21 12:47 | PCDIET ---
ICU Rounding Note: Patient tolerating Jevity 1.2 at 50mL/hr goal rate with 30mL water flush every 4 hours. Last recorded weight is 75.2kg which is increased from last review, despite -I/O. Bowel Motility: Last documented BM on 12/20/20. Labs Reviewed: Glu (155) Meds Noted: [place], Albuterol, Lipitor, Oscal 500, Pepcid, Pulmicort, Maxipime, Diflucan, Apresoline Additional Notes: No change in skin reported. Maceration to groin and buttock documented. Following daily in ICU rounds. Assessing/reassessing every Saturday/Saturday.
[2020-12-21] MEDS: INSULIN GLARGINE (*BKC) 100 UNITS/ML 20 UNITS SUB-Q (12:49)
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
[2020-12-21 18:22] LABS: Glucose Point of Care 143 mg/dl (65-105)
[2020-12-21] MEDS: ALPRAZolam (*CRX) 0.25 MG TABLET FEED TUBE (20:01)
[2020-12-21] MEDS: SODIUM CHLORIDE NASAL GEL 14.1 GM 1 APPLIC NASAL (20:03)
[2020-12-21] MEDS: MINERAL OIL/WHITE PETROLATUM OINTMENT 1 APPLIC EACH EYE (20:03)
[2020-12-21 23:39] LABS: Glucose Point of Care 136 mg/dl (65-105)
[2020-12-22] VITALS (25 sets, daily range): BP systolic 105–134; BP diastolic 52–86; PULSE 71–97; RESP 10–23; TEMP 37.4–37.7; O2SAT 96–100
[2020-12-22] MEDS: IPRATROPIUM BR 0.02% INH SOLN 0.5 MG/2.5 ML VIAL INHALATION ×4 (02:22→21:47)
[2020-12-22] MEDS: ALBUTEROL SULFATE NEB 2.5 MG/0.5 ML INH INHALATION ×4 (02:22→21:48)
[2020-12-22 05:18] LABS: Hematocrit 23.3 % (37.0-47.0); Hemoglobin 7.5 g/dL (12.0-15.0); Mean Corpuscular HGB Conc 32.2 g/dl (32-36); Mean Corpuscular Hemoglobin 28.7 pg (26-34); Mean Corpuscular Volume 89.3 fl (80-100); Mean Platelet Volume 10.3 fl (7.4-10.4); Platelet Count Result 216 k/mm3 (150-375); Red Blood Count 2.61 M/mm3 (4.2-5.4); Red Cell Distribution Width 18.2 % (11.5-14.5); White Blood Count 9.3 K/mm3 (4.5-10.0)
[2020-12-22] MEDS: HYDROcodone/acetaminophen (*CRX) 5-325 MG TABLET 1 TAB FEED TUBE (05:19)
[2020-12-22] MEDS: CENTRAL LINE FLUSH 10 ML IV PUSH ×3 (05:19→20:08)
[2020-12-22] MEDS: LEVOTHYROXINE SODIUM 50 MCG TABLET FEED TUBE (05:23)
[2020-12-22 05:26] LABS: Alanine Aminotransferase 157 U/L (4-35); Albumin Level 2.7 g/dL (3.5-5.1); Alkaline Phosphatase 89 U/L (38-126); Anion Gap 2 mmol/L (8-16); Aspartate Amino Transferase 57 U/L (14-36); Bilirubin,Total 0.5 mg/dL (0.2-1.3); Blood Urea Nitrogen 20 mg/dL (7-17); Calcium 8.8 mg/dL (8.4-10.2); Carbon Dioxide 35 mmol/L (22-30); Chloride 98 mmol/L (98-107); Estimated CRCL calculation 47 ml/min; Estimated Glomerular Filt Rate > 60; Glucose 130 mg/dL (65-110); Magnesium 1.7 mg/dL (1.6-2.3); Sodium 135 mmol/L (137-145)
[2020-12-22 05:54] LABS: Hemoglobin A1C 6.8 % (<5.7)
[2020-12-22] MEDS: BUDESONIDE RESPULE NEB 0.5 MG/2 ML AMP INHALATION ×2 (08:54→21:48)
[2020-12-22] MEDS: CALCIUM CARBONATE (OSCAL) 500 MG TABLET FEED TUBE ×2 (09:25→18:40)
[2020-12-22] MEDS: CHOLECALCIFEROL 1,000 UNITS TABLET 2000 UNITS FEED TUBE (09:25)
[2020-12-22] MEDS: ASPIRIN 81 MG ENTERIC TABLET PO (09:25)
[2020-12-22] MEDS: ATORVASTATIN 40 MG TABLET PO (09:25)
[2020-12-22] MEDS: FAMOTIDINE 20 MG/2 ML VIAL IV PUSH ×2 (09:26→20:08)
[2020-12-22] MEDS: ENOXAPARIN 40 MG/0.4 ML SYRINGE SUB-Q (09:26)
[2020-12-22] MEDS: FLUCONAZOLE 200 MG/NACL 100 ML 200 MG/100 ML BAG 100 MG IVPB (09:26)
[2020-12-22] MEDS: TOLNAFTATE 1% POWDER 45 GM BTL 1 APPLIC TOPICAL ×2 (09:26→20:06)
[2020-12-22] MEDS: MULTIVITAMINS /C LUTEIN (CENTRUM SILVER) TABLET *BKC 1 TAB FEED TUBE (09:27)
[2020-12-22] MEDS: INSULIN GLARGINE (*BKC) 100 UNITS/ML 20 UNITS SUB-Q (10:23)
--- NOTE | 2020-12-22 11:32 | WPDINTPN ---
Progress Note: A&P Assessment and Plan (1) Acute hypercapnic respiratory failure: Code(s): J96.02 - Acute respiratory failure with hypercapnia Status: Acute Assessment and Plan: acute hypercapnic respiratory failure likely related to COPD exacerbation and/or pneumonia - patient was intubated on 12/01/2020 and extubated on 12/05. She was placed on BiPAP in the evening which she did not tolerate. Patient was tried with Ativan and Precedex drip to treat her anxiety with no help - 12/06 patient was reintubated to worsening respiratory distress and she would not tolerate BiPAP without significantly sedation. - last chest x-ray and ABG reviewed. - Patient has severe emphysema on her CTA chest and minimal bilateral air movement - continue bronchodilators - off steroids - PEG placed on 12/14 and tracheostomy placed on 12/16 - continue ASV to 80% and daily PSV as tolerated. - sedation infusions have been weaned off (2) COPD exacerbation: Code(s): J44.1 - Chronic obstructive pulmonary disease with (acute) exacerbation Status: Acute Assessment and Plan: continue mechanical ventilation, A - continue bronchodilators - she has completed course of antibiotics. - off steroids - failure to wean, status post tracheostomy, await LTAC placement (3) Hypothyroidism: Code(s): E03.9 - Hypothyroidism, unspecified Status: Acute Assessment and Plan: continue levothyroxine (4) DVT prophylaxis: Code(s): Z29.9 - Encounter for prophylactic measures, unspecified Status: Acute Assessment and Plan: continue Lovenox - lower extremity swelling will obtain venous Doppler (5) Hyperglycemia: Code(s): R73.9 - Hyperglycemia, unspecified Status: Acute Assessment and Plan: likely secondary to steroids continue Lantus and sliding scale insulin (6) Sepsis: Qualifiers: Sepsis type: sepsis due to unspecified organism Sepsis acute organ dysfunction status: unspecified Qualified Code(s): A41.9 - Sepsis, unspecified organism Code(s): A41.9 - Sepsis, unspecified organism Status: Acute Assessment and Plan: patient with leukocytosis, hypotension - blood cultures positive for coag-negative staph aureus. VANCOMYCIN WAS DISCONTINUED ON 12/17/2020. patient completed a 7 day course of cefepime (Initiated on 12/14/2020) - urine cultures growing Karla albicans, given elevated white count, borderline blood pressures, patient was started Diflucan ON 12/17/2020 -Yeast was isolated in sputum cultures - WBC count has normalized and patient is afebrile (7) Elevated liver enzymes: Code(s): R74.8 - Abnormal levels of other serum enzymes Status: Acute Assessment and Plan: mild elevation of AST and ALT noted on a.m. labs hold statin at this time minimize Tylenol use Additional Plan DVT prophylaxis - Lovenox Stress ulcer prophylaxis - IV Pepcid Nutrition - tolerating tube feeds Code Status - Full Code She is awaiting transfer to LTAC Critical care time spent: 30 minutes This dictation may have been done utilizing a voice recognition system. Attempts have been made to correct errors. However, there may be uncorrected grammatical, spelling, and recognition errors present. Due to a high probability of clinically significant, life threatening deterioration, the patient required my highest level of preparedness to intervene emergently and I personally spent this critical care time directly and personally managing the patient. This critical care time included obtaining a history; examining the patient; pulse oximetry; ordering and review of studies; arranging urgent treatment with development of a management plan; evaluation of patient's response to treatment; frequent reassessment; and discussions with other providers. It was exclusive of separately billable procedures and treating other patients and teaching ti
--- NOTE | 2020-12-22 12:08 | PCDIET ---
ICU Rounding Note: Patient tolerating Jevity 1.2 at 50mL/hr goal rate with 30mL water flush every 4 hours. Last recorded weight is 73.7kg which is down from last review. -I/O. Bowel Motility: BM x 1 on 12/21/20. Labs Reviewed: RBC (2.61), Hgb (7.5), Hct (23.3), Glu (130), Na (135), Alb (2.7), HgbA1C (6.8) Meds Noted: [place], Albuterol, Lantus, Lipitor, Pulmicort, Atrovent, Oscal, Pepcid, Centrum, Diflucan, Hydralazine, Vitamin D Additional Notes: Buttocks/groin macerated. Noted elevation in HgbA1C. Glucose levels fairly well controlled on Jevity; however, could consider change to Glucerna. Will monitor. Following daily in ICU rounds. Assessing/reassessing every Saturday/Saturday.
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
[2020-12-22 12:23] LABS: Glucose Point of Care 122 mg/dl (65-105)
--- NOTE | 2020-12-22 12:31 | PCWOUND ---
WOCN NOTE notice printed for possible pressure ulcer, spoke to RN, she reports area is not pressure and maceration only. no wound care assessment needed at this time.
[2020-12-22 18:08] LABS: Glucose Point of Care 118 mg/dl (65-105)
[2020-12-22] MEDS: FERROUS SULFATE LIQUID 325 MG/7.4 ML ELIXIR FEED TUBE (18:40)
[2020-12-22] MEDS: oxyCODONE HCL (*CRX) 5 MG TAB IR PO (20:06)
[2020-12-22] MEDS: ALPRAZolam (*CRX) 0.25 MG TABLET FEED TUBE (20:06)
[2020-12-22] MEDS: MINERAL OIL/WHITE PETROLATUM OINTMENT 1 APPLIC EACH EYE (20:07)
[2020-12-22] MEDS: SODIUM CHLORIDE NASAL GEL 14.1 GM 1 APPLIC NASAL (20:07)
[2020-12-22 23:52] LABS: Glucose Point of Care 77 mg/dl (65-105)
[2020-12-23] VITALS (25 sets, daily range): BP systolic 108–123; BP diastolic 56–73; PULSE 74–102; RESP 12–30; TEMP 36.8–37.9; O2SAT 96–100
[2020-12-23] MEDS: oxyCODONE HCL (*CRX) 5 MG TAB IR PO ×3 (00:16→18:31)
[2020-12-23 04:56] LABS: Hematocrit 25.4 % (37.0-47.0); Hemoglobin 8.1 g/dL (12.0-15.0); Mean Corpuscular HGB Conc 31.9 g/dl (32-36); Mean Corpuscular Hemoglobin 28.7 pg (26-34); Mean Corpuscular Volume 90.1 fl (80-100); Mean Platelet Volume 10.7 fl (7.4-10.4); Platelet Count Result 232 k/mm3 (150-375); Red Blood Count 2.82 M/mm3 (4.2-5.4); Red Cell Distribution Width 18.3 % (11.5-14.5)
[2020-12-23 05:14] LABS: Alanine Aminotransferase 141 U/L (4-35); Albumin Level 2.8 g/dL (3.5-5.1); Alkaline Phosphatase 85 U/L (38-126); Anion Gap 4 mmol/L (8-16); Aspartate Amino Transferase 39 U/L (14-36); Bilirubin,Total 0.5 mg/dL (0.2-1.3); Blood Urea Nitrogen 18 mg/dL (7-17); Carbon Dioxide 35 mmol/L (22-30); Chloride 97 mmol/L (98-107); Estimated CRCL calculation 52 ml/min; Estimated Glomerular Filt Rate > 60; Glucose 101 mg/dL (65-110); Magnesium 1.7 mg/dL (1.6-2.3); Potassium 3.8 mmol/L (3.4-5.0); Sodium 136 mmol/L (137-145)
[2020-12-23] MEDS: ALBUTEROL SULFATE NEB 2.5 MG/0.5 ML INH INHALATION ×4 (05:47→20:19)
[2020-12-23] MEDS: IPRATROPIUM BR 0.02% INH SOLN 0.5 MG/2.5 ML VIAL INHALATION ×4 (05:47→20:19)
[2020-12-23] MEDS: LEVOTHYROXINE SODIUM 50 MCG TABLET FEED TUBE (06:01)
[2020-12-23] MEDS: ALPRAZolam (*CRX) 0.25 MG TABLET FEED TUBE ×2 (06:01→18:32)
[2020-12-23] MEDS: CENTRAL LINE FLUSH 10 ML IV PUSH ×3 (06:01→20:46)
[2020-12-23 06:15] LABS: Folic Acid 10.5 ng/mL (2.76->20)
[2020-12-23] MEDS: BUDESONIDE RESPULE NEB 0.5 MG/2 ML AMP INHALATION ×2 (08:57→20:19)
[2020-12-23] MEDS: CHOLECALCIFEROL 1,000 UNITS TABLET 2000 UNITS FEED TUBE (09:05)
[2020-12-23] MEDS: CALCIUM CARBONATE (OSCAL) 500 MG TABLET FEED TUBE ×2 (09:05→18:33)
[2020-12-23] MEDS: ENOXAPARIN 40 MG/0.4 ML SYRINGE SUB-Q (09:05)
[2020-12-23] MEDS: ASPIRIN 81 MG ENTERIC TABLET PO (09:05)
[2020-12-23] MEDS: FERROUS SULFATE LIQUID 325 MG/7.4 ML ELIXIR FEED TUBE ×2 (09:06→18:33)
[2020-12-23] MEDS: TOLNAFTATE 1% POWDER 45 GM BTL 1 APPLIC TOPICAL ×2 (09:06→20:45)
[2020-12-23] MEDS: FAMOTIDINE 20 MG/2 ML VIAL IV PUSH ×2 (09:06→20:45)
[2020-12-23] MEDS: FLUCONAZOLE 200 MG/NACL 100 ML 200 MG/100 ML BAG 100 MG IVPB (09:06)
[2020-12-23] MEDS: MULTIVITAMINS /C LUTEIN (CENTRUM SILVER) TABLET *BKC 1 TAB FEED TUBE (09:07)
[2020-12-23] MEDS: INSULIN GLARGINE (*BKC) 100 UNITS/ML 20 UNITS SUB-Q (09:07)
--- NOTE | 2020-12-23 12:13 | PCDIET ---
Nutrition Follow-Up Complete: Nutrition Diagnosis: Inadequate oral intake related to COPD exacerbation as evidenced by G-tube placement and NPO diet order. Nutrition Goal: Patient to meet estimated nutritional needs. Goal in progress. Tube feedings held for about an hour overnight, per RN, due to c/o nausea. Jevity 1.2 has since resumed and is infusing at goal rate of 50mL/hr with 30mL water flush every 4 hours. Last recorded weight is 71.4 kg which is down from last review. -I/O. Bowel Motility: BM x 1 on 12/22/20. Labs Reviewed: RBC (2.82), Hgb (8.1), Hct (25.4), BUN (18), Na (136), Alb (2.8) Meds Noted: Albuterol, Oscal 500, Ferrous Sulfate, Lipitor, Lovenox, Diflucan, Centrum, Vitamin D, Pulmicort, Pepcid, Lantus, Atrovent, Synthroid Additional Notes: Maceration to buttocks and groin documented. No pressure sores. Will continue to monitor with same goal. Nutrition Monitoring and Evaluation: Follow up every Saturday/Saturday.
[2020-12-23 12:50] LABS: Glucose Point of Care 132 mg/dl (65-105)
--- NOTE | 2020-12-23 13:18 | WPDINTPN ---
Progress Note: A&P Assessment and Plan (1) Acute hypercapnic respiratory failure: Code(s): J96.02 - Acute respiratory failure with hypercapnia Status: Acute Assessment and Plan: acute hypercapnic respiratory failure likely related to COPD exacerbation and/or pneumonia - patient was intubated on 12/01/2020 and extubated on 12/05. She was placed on BiPAP in the evening which she did not tolerate. Patient was tried with Ativan and Precedex drip to treat her anxiety with no help - 12/06 patient was reintubated to worsening respiratory distress and she would not tolerate BiPAP without significantly sedation. - last chest x-ray and ABG reviewed. - Patient has severe emphysema on her CTA chest and minimal bilateral air movement - continue bronchodilators - off steroids - PEG placed on 12/14 and tracheostomy placed on 12/16 - continue ASV to 80% and daily PSV 04/30 as tolerated. - sedation infusions have been weaned off (2) COPD exacerbation: Code(s): J44.1 - Chronic obstructive pulmonary disease with (acute) exacerbation Status: Acute Assessment and Plan: continue mechanical ventilation, A - continue bronchodilators - she has completed course of antibiotics. - off steroids - failure to wean, status post tracheostomy, await LTAC placement (3) Hypothyroidism: Code(s): E03.9 - Hypothyroidism, unspecified Status: Acute Assessment and Plan: continue levothyroxine (4) DVT prophylaxis: Code(s): Z29.9 - Encounter for prophylactic measures, unspecified Status: Acute Assessment and Plan: continue Lovenox - lower extremity venous Doppler negative for DVT (5) Hyperglycemia: Code(s): R73.9 - Hyperglycemia, unspecified Status: Acute Assessment and Plan: likely secondary to steroids continue Lantus and sliding scale insulin (6) Sepsis: Qualifiers: Sepsis type: sepsis due to unspecified organism Sepsis acute organ dysfunction status: unspecified Qualified Code(s): A41.9 - Sepsis, unspecified organism Code(s): A41.9 - Sepsis, unspecified organism Status: Acute Assessment and Plan: patient with leukocytosis, hypotension - blood cultures positive for coag-negative staph aureus. VANCOMYCIN WAS DISCONTINUED ON 12/17/2020. patient completed a 7 day course of cefepime (Initiated on 12/14/2020) - urine cultures growing Karla albicans, given elevated white count, borderline blood pressures, patient was started Diflucan ON 12/17/2020 -Yeast was isolated in sputum cultures - WBC count has normalized and patient is afebrile (7) Elevated liver enzymes: Code(s): R74.8 - Abnormal levels of other serum enzymes Status: Acute Assessment and Plan: mild elevation of AST and ALT noted on a.m. labs hold statin at this time minimize Tylenol use right upper quadrant ultrasound showed patient is status post cholecystectomy Additional Plan DVT prophylaxis - Lovenox Stress ulcer prophylaxis - IV Pepcid Nutrition - tolerating tube feeds Code Status - Full Code She is awaiting transfer to LTAC Critical care time spent: 31 minutes This dictation may have been done utilizing a voice recognition system. Attempts have been made to correct errors. However, there may be uncorrected grammatical, spelling, and recognition errors present. Due to a high probability of clinically significant, life threatening deterioration, the patient required my highest level of preparedness to intervene emergently and I personally spent this critical care time directly and personally managing the patient. This critical care time included obtaining a history; examining the patient; pulse oximetry; ordering and review of studies; arranging urgent treatment with development of a management plan; evaluation of patient's response to treatment; frequent reassessment; and discussions with other providers. It was exclu
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
[2020-12-23 15:42] LABS: Hepatitis B Surface Antigen Negative (Negative)
[2020-12-23 15:48] LABS: HAV RESULT Negative (Negative); Hepatitis B Core IgM Result Negative (Negative)
[2020-12-23 16:47] LABS: Glucose Point of Care 120 mg/dl (65-105)
[2020-12-23 16:56] LABS: Hepatitis C Virus Antibody Negative (Negative)
[2020-12-23] MEDS: SODIUM CHLORIDE NASAL GEL 14.1 GM 1 APPLIC NASAL (20:45)
[2020-12-23] MEDS: SALINE 0.65% NAS SOLN 44 ML BTL 1 SPRAY NASAL (20:45)
[2020-12-23] MEDS: LORazepam INJ (*CRX) 2 MG/ML VIAL 1 MG IV PUSH (21:02)
[2020-12-24] VITALS (31 sets, daily range): BP systolic 92–153; BP diastolic 35–71; PULSE 80–101; RESP 18–27; TEMP 37.4–37.8; O2SAT 94–100
[2020-12-24 01:27] LABS: Glucose Point of Care 126 mg/dl (65-105)
[2020-12-24] MEDS: IPRATROPIUM BR 0.02% INH SOLN 0.5 MG/2.5 ML VIAL INHALATION ×4 (02:08→20:30)
[2020-12-24] MEDS: ALBUTEROL SULFATE NEB 2.5 MG/0.5 ML INH INHALATION ×4 (02:08→20:30)
[2020-12-24 05:45] LABS: Hematocrit 24.8 % (37.0-47.0); Hemoglobin 7.7 g/dL (12.0-15.0); Mean Corpuscular Hemoglobin 28.2 pg (26-34); Mean Corpuscular Volume 90.8 fl (80-100); Mean Platelet Volume 10.3 fl (7.4-10.4); Platelet Count Result 247 k/mm3 (150-375); Red Blood Count 2.73 M/mm3 (4.2-5.4); Red Cell Distribution Width 18.3 % (11.5-14.5); White Blood Count 7.2 K/mm3 (4.5-10.0)
[2020-12-24] MEDS: LEVOTHYROXINE SODIUM 50 MCG TABLET FEED TUBE (05:50)
[2020-12-24] MEDS: CENTRAL LINE FLUSH 10 ML IV PUSH ×3 (05:51→21:51)
[2020-12-24 05:56] LABS: Alanine Aminotransferase 106 U/L (4-35); Albumin Level 2.6 g/dL (3.5-5.1); Alkaline Phosphatase 83 U/L (38-126); Anion Gap 2 mmol/L (8-16); Aspartate Amino Transferase 32 U/L (14-36); Bilirubin,Total 0.3 mg/dL (0.2-1.3); Blood Urea Nitrogen 16 mg/dL (7-17); Calcium 8.8 mg/dL (8.4-10.2); Carbon Dioxide 33 mmol/L (22-30); Chloride 100 mmol/L (98-107); Estimated CRCL calculation 46 ml/min; Estimated Glomerular Filt Rate > 60; Glucose 114 mg/dL (65-110); Magnesium 1.8 mg/dL (1.6-2.3); Potassium 4.2 mmol/L (3.4-5.0); Sodium 135 mmol/L (137-145)
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
--- NOTE | 2020-12-24 08:41 | WPDINTPN ---
Progress Note: A&P Assessment and Plan (1) Acute hypercapnic respiratory failure: Code(s): J96.02 - Acute respiratory failure with hypercapnia Status: Acute Assessment and Plan: acute hypercapnic respiratory failure likely related to COPD exacerbation and/or pneumonia - patient was intubated on 12/01/2020 and extubated on 12/05. She was placed on BiPAP in the evening which she did not tolerate. Patient was tried with Ativan and Precedex drip to treat her anxiety with no help - 12/06 patient was reintubated to worsening respiratory distress and she would not tolerate BiPAP without significantly sedation. - last chest x-ray and ABG reviewed. - Patient has severe emphysema on her CTA chest and minimal bilateral air movement - continue bronchodilators - off steroids - PEG placed on 12/14 and tracheostomy placed on 12/16 - continue ASV to 60% and daily PSV 04/30 as tolerated. - sedation infusions have been weaned off (2) COPD exacerbation: Code(s): J44.1 - Chronic obstructive pulmonary disease with (acute) exacerbation Status: Acute Assessment and Plan: continue mechanical ventilation, A - continue bronchodilators - she has completed course of antibiotics. - off steroids - failure to wean, status post tracheostomy, await LTAC placement (3) Sepsis: Qualifiers: Sepsis type: sepsis due to unspecified organism Sepsis acute organ dysfunction status: unspecified Qualified Code(s): A41.9 - Sepsis, unspecified organism Code(s): A41.9 - Sepsis, unspecified organism Status: Acute Assessment and Plan: - blood cultures positive for coag-negative staph aureus. VANCOMYCIN WAS DISCONTINUED ON 12/17/2020. patient completed a 7 day course of cefepime (Initiated on 12/14/2020) - urine cultures growing Karla albicans, given elevated white count, borderline blood pressures, patient was started Diflucan ON 12/17/2020. [place] was changed. -Yeast was isolated in sputum cultures - lower extremity Dopplers were negative - patient has low-grade fevers but WBC count has normalized - no significant change in chest x-ray or secretions (4) Hypothyroidism: Code(s): E03.9 - Hypothyroidism, unspecified Status: Acute Assessment and Plan: continue levothyroxine (5) DVT prophylaxis: Code(s): Z29.9 - Encounter for prophylactic measures, unspecified Status: Acute Assessment and Plan: continue Lovenox - lower extremity venous Doppler negative for DVT (6) Hyperglycemia: Code(s): R73.9 - Hyperglycemia, unspecified Status: Acute Assessment and Plan: likely secondary to steroids continue Lantus and sliding scale insulin (7) Elevated liver enzymes: Code(s): R74.8 - Abnormal levels of other serum enzymes Status: Acute Assessment and Plan: mild elevation of AST and ALT noted on a.m. labs hold statin at this time minimize Tylenol use right upper quadrant ultrasound showed patient is status post cholecystectomy Additional Plan DVT prophylaxis - Lovenox Stress ulcer prophylaxis - IV Pepcid Nutrition - tolerating tube feeds Code Status - Full Code She is awaiting transfer to LTAC Total Critical Care Time -30 minutes Due to a high probability of clinically significant, life threatening deterioration, the patient required my highest level of preparedness to intervene emergently and I personally spent this critical care time directly and personally managing the patient. This critical care time included obtaining a history; examining the patient; pulse oximetry; ordering and review of studies; arranging urgent treatment with development of a management plan; evaluation of patient's response to treatment; frequent reassessment; and discussions with other providers. It was exclusive of separately billable procedures and treating other patients and teaching time. Please see Assessment and Plan sectio
[2020-12-24] MEDS: BUDESONIDE RESPULE NEB 0.5 MG/2 ML AMP INHALATION ×2 (08:53→20:30)
[2020-12-24] MEDS: MULTIVITAMINS /C LUTEIN (CENTRUM SILVER) TABLET *BKC 1 TAB FEED TUBE (09:04)
[2020-12-24] MEDS: FERROUS SULFATE LIQUID 325 MG/7.4 ML ELIXIR FEED TUBE ×2 (09:04→16:00)
[2020-12-24] MEDS: CALCIUM CARBONATE (OSCAL) 500 MG TABLET FEED TUBE ×2 (09:04→16:00)
[2020-12-24] MEDS: CHOLECALCIFEROL 1,000 UNITS TABLET 2000 UNITS FEED TUBE (09:04)
[2020-12-24] MEDS: ASPIRIN 81 MG ENTERIC TABLET PO (09:04)
[2020-12-24] MEDS: MINERAL OIL/WHITE PETROLATUM OINTMENT 1 APPLIC EACH EYE ×2 (09:35→21:50)
[2020-12-24] MEDS: ENOXAPARIN 40 MG/0.4 ML SYRINGE SUB-Q (09:35)
[2020-12-24] MEDS: INSULIN GLARGINE (*BKC) 100 UNITS/ML 20 UNITS SUB-Q (09:35)
[2020-12-24] MEDS: FLUCONAZOLE 200 MG/NACL 100 ML 200 MG/100 ML BAG 100 MG IVPB (09:35)
[2020-12-24] MEDS: FAMOTIDINE 20 MG/2 ML VIAL IV PUSH ×2 (09:35→21:50)
[2020-12-24] MEDS: TOLNAFTATE 1% POWDER 45 GM BTL 1 APPLIC TOPICAL ×2 (09:35→21:51)
[2020-12-24 11:52] LABS: Glucose Point of Care 159 mg/dl (65-105)
[2020-12-24 17:05] LABS: Glucose Point of Care 125 mg/dl (65-105)
[2020-12-24] MEDS: SODIUM CHLORIDE NASAL GEL 14.1 GM 1 APPLIC NASAL (21:50)
[2020-12-25] VITALS (32 sets, daily range): BP systolic 93–137; BP diastolic 46–68; PULSE 27–99; RESP 13–28; TEMP 37.4–37.9; O2SAT 94–98
[2020-12-25 00:35] LABS: Glucose Point of Care 110 mg/dl (65-105)
[2020-12-25] MEDS: LORazepam INJ (*CRX) 2 MG/ML VIAL 1 MG IV PUSH ×2 (01:32→20:11)
[2020-12-25] MEDS: IPRATROPIUM BR 0.02% INH SOLN 0.5 MG/2.5 ML VIAL INHALATION ×4 (01:39→21:01)
[2020-12-25] MEDS: ALBUTEROL SULFATE NEB 2.5 MG/0.5 ML INH INHALATION ×4 (01:39→21:01)
[2020-12-25] MEDS: LEVOTHYROXINE SODIUM 50 MCG TABLET FEED TUBE (05:16)
[2020-12-25] MEDS: CENTRAL LINE FLUSH 10 ML IV PUSH ×3 (05:16→20:13)
[2020-12-25 05:37] LABS: Hematocrit 22.8 % (37.0-47.0); Hemoglobin 7.5 g/dL (12.0-15.0); Mean Corpuscular HGB Conc 32.9 g/dl (32-36); Mean Corpuscular Hemoglobin 29.3 pg (26-34); Mean Corpuscular Volume 89.1 fl (80-100); Mean Platelet Volume 9.9 fl (7.4-10.4); Platelet Count Result 254 k/mm3 (150-375); Red Blood Count 2.56 M/mm3 (4.2-5.4); Red Cell Distribution Width 18.5 % (11.5-14.5); White Blood Count 7.7 K/mm3 (4.5-10.0)
[2020-12-25 05:53] LABS: Alanine Aminotransferase 90 U/L (4-35); Albumin Level 2.6 g/dL (3.5-5.1); Alkaline Phosphatase 85 U/L (38-126); Anion Gap 5 mmol/L (8-16); Aspartate Amino Transferase 31 U/L (14-36); Bilirubin,Total 0.3 mg/dL (0.2-1.3); Blood Urea Nitrogen 14 mg/dL (7-17); Calcium 8.8 mg/dL (8.4-10.2); Carbon Dioxide 29 mmol/L (22-30); Chloride 103 mmol/L (98-107); Estimated CRCL calculation 53 ml/min; Estimated Glomerular Filt Rate > 60; Glucose 138 mg/dL (65-110); Magnesium 1.8 mg/dL (1.6-2.3); Potassium 4.1 mmol/L (3.4-5.0); Sodium 137 mmol/L (137-145)
[2020-12-25] MEDS: MULTIVITAMINS /C LUTEIN (CENTRUM SILVER) TABLET *BKC 1 TAB FEED TUBE (07:35)
[2020-12-25] MEDS: ASPIRIN 81 MG ENTERIC TABLET PO (07:35)
[2020-12-25] MEDS: CHOLECALCIFEROL 1,000 UNITS TABLET 2000 UNITS FEED TUBE (07:35)
[2020-12-25] MEDS: CALCIUM CARBONATE (OSCAL) 500 MG TABLET FEED TUBE ×2 (07:35→17:13)
[2020-12-25] MEDS: ALPRAZolam (*CRX) 0.25 MG TABLET FEED TUBE ×2 (07:36→14:50)
[2020-12-25] MEDS: MINERAL OIL/WHITE PETROLATUM OINTMENT 1 APPLIC EACH EYE (08:15)
[2020-12-25] MEDS: FLUCONAZOLE 200 MG/NACL 100 ML 200 MG/100 ML BAG 100 MG IVPB (08:15)
[2020-12-25] MEDS: INSULIN GLARGINE (*BKC) 100 UNITS/ML 20 UNITS SUB-Q (08:15)
[2020-12-25] MEDS: FERROUS SULFATE LIQUID 325 MG/7.4 ML ELIXIR FEED TUBE ×2 (08:15→17:13)
[2020-12-25] MEDS: ENOXAPARIN 40 MG/0.4 ML SYRINGE SUB-Q (08:15)
[2020-12-25] MEDS: FAMOTIDINE 20 MG/2 ML VIAL IV PUSH ×2 (08:15→20:11)
[2020-12-25] MEDS: TOLNAFTATE 1% POWDER 45 GM BTL 1 APPLIC TOPICAL ×2 (08:16→20:12)
[2020-12-25] MEDS: BUDESONIDE RESPULE NEB 0.5 MG/2 ML AMP INHALATION ×2 (08:25→22:05)
--- NOTE | 2020-12-25 08:37 | P.PNINT_ITS ---
Progress Note: A&P Assessment and Plan (1) Acute hypercapnic respiratory failure: Code(s): J96.02 - Acute respiratory failure with hypercapnia Status: Acute Assessment and Plan: acute hypercapnic respiratory failure likely related to COPD exacerbation and/or pneumonia - patient was intubated on 12/01/2020 and extubated on 12/05. She was placed on BiPAP in the evening which she did not tolerate. Patient was tried with Ativan and Precedex drip to treat her anxiety with no help - 12/06 patient was reintubated to worsening respiratory distress and she would not tolerate BiPAP without significantly sedation. - last chest x-ray and ABG reviewed. - Patient has severe emphysema on her CTA chest and minimal bilateral air movement - continue bronchodilators - off steroids - PEG placed on 12/14 and tracheostomy placed on 12/16 - continue ASV to 60% at night and daily PSV / as tolerated. - sedation infusions have been weaned off (2) COPD exacerbation: Code(s): J44.1 - Chronic obstructive pulmonary disease with (acute) exacerbation Status: Acute Assessment and Plan: continue mechanical ventilation, A - continue bronchodilators - she has completed course of antibiotics. - off steroids - failure to wean, status post tracheostomy, await LTAC placement (3) Sepsis: Qualifiers: Sepsis type: sepsis due to unspecified organism Sepsis acute organ dysfunction status: unspecified Qualified Code(s): A41.9 - Sepsis, unspecified organism Code(s): A41.9 - Sepsis, unspecified organism Status: Acute Assessment and Plan: - blood cultures positive for coag-negative staph aureus. VANCOMYCIN WAS DISCONTINUED ON 12/17/2020. patient completed a 7 day course of cefepime (Initiated on 12/14/2020) - urine cultures growing Karla albicans, given elevated white count, borderline blood pressures, patient was started Diflucan ON 12/17/2020. [place] was changed. -Yeast was isolated in sputum cultures - lower extremity Dopplers were negative - patient has low-grade fevers but WBC count has normalized - no significant change in chest x-ray or secretions (4) Hypothyroidism: Code(s): E03.9 - Hypothyroidism, unspecified Status: Acute Assessment and Plan: continue levothyroxine (5) DVT prophylaxis: Code(s): Z29.9 - Encounter for prophylactic measures, unspecified Status: Acute Assessment and Plan: continue Lovenox - lower extremity venous Doppler negative for DVT (6) Hyperglycemia: Code(s): R73.9 - Hyperglycemia, unspecified Status: Acute Assessment and Plan: likely secondary to steroids continue Lantus and sliding scale insulin (7) Elevated liver enzymes: Code(s): R74.8 - Abnormal levels of other serum enzymes Status: Acute Assessment and Plan: mild elevation of AST and ALT noted on a.m. labs hold statin at this time minimize Tylenol use right upper quadrant ultrasound showed patient is status post cholecystectomy Additional Plan DVT prophylaxis - Lovenox Stress ulcer prophylaxis - IV Pepcid Nutrition - tolerating tube feeds Code Status - Full Code She is awaiting transfer to LTAC Total Critical Care Time -31 minutes Due to a high probability of clinically significant, life threatening deterioration, the patient required my highest level of preparedness to int ervene emergently and I personally spent this critical care time directly and personally managing the patient. This critical care time included obtaining a hi
[2020-12-25 11:52] LABS: Glucose Point of Care 153 mg/dl (65-105)
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
[2020-12-25 17:14] LABS: Glucose Point of Care 190 mg/dl (65-105)
[2020-12-26] VITALS (30 sets, daily range): BP systolic 99–131; BP diastolic 53–94; PULSE 76–98; RESP 14–31; TEMP 37.3–37.9; O2SAT 94–99
[2020-12-26 02:11] LABS: Glucose Point of Care 119 mg/dl (65-105)
[2020-12-26] MEDS: IPRATROPIUM BR 0.02% INH SOLN 0.5 MG/2.5 ML VIAL INHALATION ×4 (02:15→20:27)
[2020-12-26] MEDS: ALBUTEROL SULFATE NEB 2.5 MG/0.5 ML INH INHALATION ×4 (02:16→20:27)
[2020-12-26] MEDS: ALPRAZolam (*CRX) 0.25 MG TABLET FEED TUBE ×3 (02:22→22:04)
[2020-12-26] MEDS: LEVOTHYROXINE SODIUM 50 MCG TABLET FEED TUBE (05:00)
[2020-12-26 05:02] LABS: Hematocrit 24.7 % (37.0-47.0); Hemoglobin 7.7 g/dL (12.0-15.0); Mean Corpuscular HGB Conc 31.2 g/dl (32-36); Mean Corpuscular Hemoglobin 28.6 pg (26-34); Mean Corpuscular Volume 91.8 fl (80-100); Mean Platelet Volume 10.2 fl (7.4-10.4); Platelet Count Result 319 k/mm3 (150-375); Red Blood Count 2.69 M/mm3 (4.2-5.4); Red Cell Distribution Width 19.1 % (11.5-14.5); White Blood Count 9.3 K/mm3 (4.5-10.0)
[2020-12-26] MEDS: CENTRAL LINE FLUSH 10 ML IV PUSH ×3 (05:02→22:03)
[2020-12-26 05:21] LABS: Alanine Aminotransferase 92 U/L (4-35); Albumin Level 2.7 g/dL (3.5-5.1); Alkaline Phosphatase 85 U/L (38-126); Anion Gap 5 mmol/L (8-16); Aspartate Amino Transferase 32 U/L (14-36); Bilirubin,Total 0.4 mg/dL (0.2-1.3); Blood Urea Nitrogen 14 mg/dL (7-17); Calcium 9.1 mg/dL (8.4-10.2); Carbon Dioxide 31 mmol/L (22-30); Chloride 102 mmol/L (98-107); Estimated CRCL calculation 52 ml/min; Estimated Glomerular Filt Rate > 60; Glucose 128 mg/dL (65-110); Magnesium 1.9 mg/dL (1.6-2.3); Sodium 138 mmol/L (137-145)
[2020-12-26] MEDS: BUDESONIDE RESPULE NEB 0.5 MG/2 ML AMP INHALATION ×2 (08:31→20:27)
[2020-12-26] MEDS: FERROUS SULFATE LIQUID 325 MG/7.4 ML ELIXIR FEED TUBE ×2 (08:32→18:21)
[2020-12-26] MEDS: FAMOTIDINE 20 MG/2 ML VIAL IV PUSH ×2 (08:32→22:01)
[2020-12-26] MEDS: ENOXAPARIN 40 MG/0.4 ML SYRINGE SUB-Q (08:32)
[2020-12-26] MEDS: CALCIUM CARBONATE (OSCAL) 500 MG TABLET FEED TUBE ×2 (08:32→18:21)
[2020-12-26] MEDS: ASPIRIN 81 MG ENTERIC TABLET PO (08:32)
[2020-12-26] MEDS: CHOLECALCIFEROL 1,000 UNITS TABLET 2000 UNITS FEED TUBE (08:32)
[2020-12-26] MEDS: MULTIVITAMINS /C LUTEIN (CENTRUM SILVER) TABLET *BKC 1 TAB FEED TUBE (08:33)
[2020-12-26] MEDS: TOLNAFTATE 1% POWDER 45 GM BTL 1 APPLIC TOPICAL ×2 (08:33→22:02)
[2020-12-26] MEDS: INSULIN GLARGINE (*BKC) 100 UNITS/ML 20 UNITS SUB-Q (08:52)
--- NOTE | 2020-12-26 08:58 | WPDINTPN ---
Progress Note: A&P Assessment and Plan (1) Acute hypercapnic respiratory failure: Code(s): J96.02 - Acute respiratory failure with hypercapnia Status: Acute Assessment and Plan: acute hypercapnic respiratory failure likely related to COPD exacerbation and/or pneumonia - patient was intubated on 12/01/2020 and extubated on 12/05. She was placed on BiPAP in the evening which she did not tolerate. Patient was tried with Ativan and Precedex drip to treat her anxiety with no help - 12/06 patient was reintubated to worsening respiratory distress and she would not tolerate BiPAP without significantly sedation. - last chest x-ray and ABG reviewed. - Patient has severe emphysema on her CTA chest and minimal bilateral air movement - continue bronchodilators - off steroids - PEG placed on 12/14 and tracheostomy placed on 12/16 - continue PSV 04/30 as tolerated. - sedation infusions have been weaned off (2) COPD exacerbation: Code(s): J44.1 - Chronic obstructive pulmonary disease with (acute) exacerbation Status: Acute Assessment and Plan: continue mechanical ventilation, A - continue bronchodilators - she has completed course of antibiotics. - off steroids - failure to wean, status post tracheostomy, await LTAC placement (3) Sepsis: Qualifiers: Sepsis type: sepsis due to unspecified organism Sepsis acute organ dysfunction status: unspecified Qualified Code(s): A41.9 - Sepsis, unspecified organism Code(s): A41.9 - Sepsis, unspecified organism Status: Acute Assessment and Plan: - blood cultures positive for coag-negative staph aureus. VANCOMYCIN WAS DISCONTINUED ON 12/17/2020. patient completed a 7 day course of cefepime (Initiated on 12/14/2020) - urine cultures growing Karla albicans, given elevated white count, borderline blood pressures, patient was started Diflucan ON 12/17/2020 and completed course. [place] was changed. -Yeast was isolated in sputum cultures - lower extremity Dopplers were negative - afebrile and WBC count has normalized - no significant change in chest x-ray or secretions (4) Hypothyroidism: Code(s): E03.9 - Hypothyroidism, unspecified Status: Acute Assessment and Plan: continue levothyroxine (5) DVT prophylaxis: Code(s): Z29.9 - Encounter for prophylactic measures, unspecified Status: Acute Assessment and Plan: continue Lovenox - lower extremity venous Doppler negative for DVT (6) Hyperglycemia: Code(s): R73.9 - Hyperglycemia, unspecified Status: Acute Assessment and Plan: likely secondary to steroids continue Lantus and sliding scale insulin (7) Elevated liver enzymes: Code(s): R74.8 - Abnormal levels of other serum enzymes Status: Acute Assessment and Plan: mild elevation of AST and ALT noted on a.m. labs hold statin at this time minimize Tylenol use right upper quadrant ultrasound showed patient is status post cholecystectomy (8) Tachycardia: Code(s): R00.0 - Tachycardia, unspecified Status: Acute Assessment and Plan: narrow complex tachycardia. Likely secondary to severe COPD electrolytes reviewed added low-dose beta-mika Additional Plan DVT prophylaxis - Lovenox Stress ulcer prophylaxis - IV Pepcid Nutrition - tolerating tube feeds Code Status - Full Code She is awaiting transfer to LTAC Total Critical Care Time -30 minutes Due to a high probability of clinically significant, life threatening deterioration, the patient required my highest level of preparedness to intervene emergently and I personally spent this critical care time directly and personally managing the patient. This critical care time included obtaining a history; examining the patient; pulse oximetry; ordering and review of studies; arranging urgent treatment with development of a management plan; evaluation of patient's respo
--- NOTE | 2020-12-26 11:14 | PCDIET ---
Nutrition Follow-Up Complete: Nutrition Diagnosis: Inadequate oral intake related to COPD exacerbation as evidenced by G-tube placement and NPO diet order. Nutrition Goal: Patient to meet estimated nutritional needs. Goal in progress. Patient tolerating Jevity 1.2 at 50mL/hr goal rate with 30mL water flush every 4 hours. Last recorded weight is 66.6 kg which is down from last review. -I/O. Bowel Motility: BM x 2 today. Labs Reviewed: RBC (2.69), Hgb (7.7), Hct (24.7), Glu (128), Alb (2.7) Meds Noted: Lantus, Atrovent, Albuterol, Xanax, Pepcid, Ferrous Sulfate, Synthroid, Pulmicort, Oscal 500, Hydralazine, Lopressor, Centrum, Vitamin D Additional Notes: Groin/buttocks macerated. No pressure sores documented. Will continue to monitor with saem goal. Nutrition Monitoring and Evaluation: Follow up every Saturday/Saturday.
[2020-12-26 12:16] LABS: Glucose Point of Care 154 mg/dl (65-105)
[2020-12-26] MEDS: METOPROLOL TARTRATE 12.5 MG TABLET PO ×2 (12:16→22:01)
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
[2020-12-26 18:06] LABS: Glucose Point of Care 160 mg/dl (65-105)
[2020-12-26] MEDS: LORazepam INJ (*CRX) 2 MG/ML VIAL 1 MG IV PUSH (19:32)
[2020-12-26] MEDS: MINERAL OIL/WHITE PETROLATUM OINTMENT 1 APPLIC EACH EYE (21:14)
[2020-12-26] MEDS: SODIUM CHLORIDE NASAL GEL 14.1 GM 1 APPLIC NASAL (21:16)
[2020-12-27] VITALS (31 sets, daily range): BP systolic 90–132; BP diastolic 45–67; PULSE 78–92; RESP 17–32; TEMP 37.6–37.9; O2SAT 94–100
[2020-12-27 00:10] LABS: Glucose Point of Care 119 mg/dl (65-105)
[2020-12-27] MEDS: LORazepam INJ (*CRX) 2 MG/ML VIAL 1 MG IV PUSH ×2 (01:30→11:44)
[2020-12-27] MEDS: ALBUTEROL SULFATE NEB 2.5 MG/0.5 ML INH INHALATION ×4 (02:27→20:38)
[2020-12-27] MEDS: IPRATROPIUM BR 0.02% INH SOLN 0.5 MG/2.5 ML VIAL INHALATION ×4 (02:27→20:39)
[2020-12-27 06:07] LABS: Glucose Point of Care 131 mg/dl (65-105)
[2020-12-27] MEDS: LEVOTHYROXINE SODIUM 50 MCG TABLET FEED TUBE (06:14)
[2020-12-27] MEDS: CENTRAL LINE FLUSH 10 ML IV PUSH ×3 (06:14→21:44)
[2020-12-27] MEDS: BUDESONIDE RESPULE NEB 0.5 MG/2 ML AMP INHALATION ×2 (07:21→20:38)
[2020-12-27] MEDS: MULTIVITAMINS /C LUTEIN (CENTRUM SILVER) TABLET *BKC 1 TAB FEED TUBE (08:36)
[2020-12-27] MEDS: ENOXAPARIN 40 MG/0.4 ML SYRINGE SUB-Q (08:36)
[2020-12-27] MEDS: CHOLECALCIFEROL 1,000 UNITS TABLET 2000 UNITS FEED TUBE (08:36)
[2020-12-27] MEDS: CALCIUM CARBONATE (OSCAL) 500 MG TABLET FEED TUBE ×2 (08:36→17:20)
[2020-12-27] MEDS: ASPIRIN 81 MG ENTERIC TABLET PO (08:37)
[2020-12-27] MEDS: INSULIN GLARGINE (*BKC) 100 UNITS/ML 20 UNITS SUB-Q (08:37)
[2020-12-27] MEDS: TOLNAFTATE 1% POWDER 45 GM BTL 1 APPLIC TOPICAL ×2 (08:37→20:12)
[2020-12-27] MEDS: FERROUS SULFATE LIQUID 325 MG/7.4 ML ELIXIR FEED TUBE ×2 (08:37→17:20)
[2020-12-27] MEDS: MINERAL OIL/WHITE PETROLATUM OINTMENT 1 APPLIC EACH EYE ×2 (08:37→20:13)
[2020-12-27] MEDS: FAMOTIDINE 20 MG/2 ML VIAL IV PUSH ×2 (08:37→20:11)
[2020-12-27] MEDS: METOPROLOL TARTRATE 12.5 MG TABLET PO ×2 (08:37→20:12)
--- NOTE | 2020-12-27 09:16 | WPDINTPN ---
Progress Note: A&P Assessment and Plan (1) Acute hypercapnic respiratory failure: Code(s): J96.02 - Acute respiratory failure with hypercapnia Status: Acute Assessment and Plan: acute hypercapnic respiratory failure likely related to COPD exacerbation and/or pneumonia - patient was intubated on 12/01/2020 and extubated on 12/05. She was placed on BiPAP in the evening which she did not tolerate. Patient was tried with Ativan and Precedex drip to treat her anxiety with no help - 12/06 patient was reintubated to worsening respiratory distress and she would not tolerate BiPAP without significantly sedation. - last chest x-ray and ABG reviewed. - Patient has severe emphysema on her CTA chest and minimal bilateral air movement - continue bronchodilators - off steroids - PEG placed on 12/14 and tracheostomy placed on 12/16 - continue PSV 04/30 as tolerated. - sedation infusions have been weaned off -patient is awaiting LTAC placement (2) COPD exacerbation: Code(s): J44.1 - Chronic obstructive pulmonary disease with (acute) exacerbation Status: Acute Assessment and Plan: continue mechanical ventilation, A - continue bronchodilators - she has completed course of antibiotics. - off steroids - failure to wean, status post tracheostomy, await LTAC placement (3) Sepsis: Qualifiers: Sepsis type: sepsis due to unspecified organism Sepsis acute organ dysfunction status: unspecified Qualified Code(s): A41.9 - Sepsis, unspecified organism Code(s): A41.9 - Sepsis, unspecified organism Status: Acute Assessment and Plan: - blood cultures positive for coag-negative staph aureus. VANCOMYCIN WAS DISCONTINUED ON 12/17/2020. patient completed a 7 day course of cefepime (Initiated on 12/14/2020) - urine cultures growing Karla albicans, given elevated white count, borderline blood pressures, patient was started Diflucan ON 12/17/2020 and completed course. [place] was changed. We do not have a PureWick catheter -Yeast was isolated in sputum cultures - lower extremity Dopplers were negative - afebrile and WBC count has normalized - no significant change in chest x-ray or secretions (4) Hypothyroidism: Code(s): E03.9 - Hypothyroidism, unspecified Status: Acute Assessment and Plan: continue levothyroxine (5) DVT prophylaxis: Code(s): Z29.9 - Encounter for prophylactic measures, unspecified Status: Acute Assessment and Plan: continue Lovenox - lower extremity venous Doppler negative for DVT (6) Hyperglycemia: Code(s): R73.9 - Hyperglycemia, unspecified Status: Acute Assessment and Plan: likely secondary to steroids continue Lantus and sliding scale insulin (7) Elevated liver enzymes: Code(s): R74.8 - Abnormal levels of other serum enzymes Status: Acute Assessment and Plan: mild elevation of AST and ALT noted on a.m. labs hold statin at this time minimize Tylenol use right upper quadrant ultrasound showed patient is status post cholecystectomy (8) Tachycardia: Code(s): R00.0 - Tachycardia, unspecified Status: Acute Assessment and Plan: narrow complex tachycardia. Likely secondary to severe COPD electrolytes reviewed Continue low-dose beta-mika Additional Plan DVT prophylaxis - Lovenox Stress ulcer prophylaxis - IV Pepcid Nutrition - tolerating tube feeds Code Status - Full Code She is awaiting transfer to LTAC. Transfer has been unreasonably delayed by insurance issues Total Critical Care Time -30 minutes Due to a high probability of clinically significant, life threatening deterioration, the patient required my highest level of preparedness to intervene emergently and I personally spent this critical care time directly and personally managing the patient. This critical care time included obtaining a history; examining the patient; pulse
--- NOTE | 2020-12-27 11:30 | PCDIET ---
Nutrition Follow-Up Complete: Nutrition Diagnosis: Inadequate oral intake related to COPD exacerbation as evidenced by G-tube placement and NPO diet order. Nutrition Goal: Patient to meet estimated nutritional needs. Goal met. Patient tolerating Jevity 1.2 at 50mL/hr goal rate with 30mL water flush every 4 hours. Last recorded weight is 66.9 kg which is stable with last review. Bowel Motility: Last documented BM on 12/26/20 x 2. Labs Reviewed: Glu (131) Meds Noted: Albuterol, Pulmicort, Oscal 500, Pepcid, Ferrous Sulfate, Lantus, Atrovent, Synthroid, Ativan, Lopressor, Centrum, Vitamin D Additional Notes: Buttocks/groin macerated. Will continue to monitor with same goal. Nutrition Monitoring and Evaluation: Follow up every Saturday/Saturday. Follow daily in ICU rounds.
[2020-12-27 11:47] LABS: Glucose Point of Care 125 mg/dl (65-105)
[2020-12-27 13:55] LABS: Soluble Transferrin Receptor 1.04 mg/L (0.76-1.76)
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
[2020-12-27 17:30] LABS: Glucose Point of Care 118 mg/dl (65-105)
[2020-12-27] MEDS: SODIUM CHLORIDE NASAL GEL 14.1 GM 1 APPLIC NASAL (20:13)
[2020-12-27] MEDS: ALPRAZolam (*CRX) 0.25 MG TABLET FEED TUBE (20:16)
[2020-12-27] MEDS: ACETAMINOPHEN ELIXIR 325 MG/10.15 ML UDC 650 MG PO (23:50)
[2020-12-28] VITALS (20 sets, daily range): BP systolic 86–133; BP diastolic 45–69; PULSE 75–118; RESP 13–26; TEMP 37.2–37.9; O2SAT 94–99
[2020-12-28] LABS: Glucose Point of Care 121 mg/dl (65-105)
[2020-12-28] MEDS: oxyCODONE HCL (*CRX) 5 MG TAB IR PO ×2 (00:39→11:19)
[2020-12-28] MEDS: IPRATROPIUM BR 0.02% INH SOLN 0.5 MG/2.5 ML VIAL INHALATION ×2 (02:54→07:43)
[2020-12-28] MEDS: ALBUTEROL SULFATE NEB 2.5 MG/0.5 ML INH INHALATION ×2 (02:54→07:42)
[2020-12-28 06:30] LABS: Glucose Point of Care 105 mg/dl (65-105)
[2020-12-28] MEDS: CENTRAL LINE FLUSH 10 ML IV PUSH (06:41)
[2020-12-28] MEDS: LEVOTHYROXINE SODIUM 50 MCG TABLET FEED TUBE (06:42)
[2020-12-28] MEDS: BUDESONIDE RESPULE NEB 0.5 MG/2 ML AMP INHALATION (07:43)
[2020-12-28] MEDS: TOLNAFTATE 1% POWDER 45 GM BTL 1 APPLIC TOPICAL (08:16)
[2020-12-28] MEDS: ASPIRIN 81 MG ENTERIC TABLET PO (08:17)
[2020-12-28] MEDS: ENOXAPARIN 40 MG/0.4 ML SYRINGE SUB-Q (08:17)
[2020-12-28] MEDS: METOPROLOL TARTRATE 12.5 MG TABLET PO (08:17)
[2020-12-28] MEDS: CALCIUM CARBONATE (OSCAL) 500 MG TABLET FEED TUBE (08:17)
[2020-12-28] MEDS: FAMOTIDINE 20 MG/2 ML VIAL IV PUSH (08:17)
[2020-12-28] MEDS: FERROUS SULFATE LIQUID 325 MG/7.4 ML ELIXIR FEED TUBE (08:17)
[2020-12-28] MEDS: CHOLECALCIFEROL 1,000 UNITS TABLET 2000 UNITS FEED TUBE (08:17)
[2020-12-28] MEDS: MINERAL OIL/WHITE PETROLATUM OINTMENT 1 APPLIC EACH EYE (08:17)
[2020-12-28] MEDS: MULTIVITAMINS /C LUTEIN (CENTRUM SILVER) TABLET *BKC 1 TAB FEED TUBE (08:18)
[2020-12-28] MEDS: INSULIN GLARGINE (*BKC) 100 UNITS/ML 20 UNITS SUB-Q (08:22)
[2020-12-28] MEDS: LORazepam INJ (*CRX) 2 MG/ML VIAL 1 MG IV PUSH (11:12)
[2020-12-28] MEDS: ALPRAZolam (*CRX) 0.25 MG TABLET FEED TUBE (11:20)
--- NOTE | 2020-12-28 11:20 | WPDINTPN ---
Progress Note: A&P Assessment and Plan (1) Acute hypercapnic respiratory failure: Code(s): J96.02 - Acute respiratory failure with hypercapnia Status: Acute Assessment and Plan: acute hypercapnic respiratory failure likely related to COPD exacerbation and/or pneumonia - patient was intubated on 12/01/2020 and extubated on 12/05. She was placed on BiPAP in the evening which she did not tolerate. Patient was tried with Ativan and Precedex drip to treat her anxiety with no help - 12/06 patient was reintubated to worsening respiratory distress and she would not tolerate BiPAP without significantly sedation. - last chest x-ray and ABG reviewed. - Patient has severe emphysema on her CTA chest and minimal bilateral air movement - continue bronchodilators - off steroids - PEG placed on 12/14 and tracheostomy placed on 12/16 - continue PSV 04/30 as tolerated. - sedation infusions have been weaned off -patient is awaiting LTAC placement (2) COPD exacerbation: Code(s): J44.1 - Chronic obstructive pulmonary disease with (acute) exacerbation Status: Acute Assessment and Plan: continue mechanical ventilation, A - continue bronchodilators - she has completed course of antibiotics. - off steroids - failure to wean, status post tracheostomy, await LTAC placement (3) Sepsis: Qualifiers: Sepsis type: sepsis due to unspecified organism Sepsis acute organ dysfunction status: unspecified Qualified Code(s): A41.9 - Sepsis, unspecified organism Code(s): A41.9 - Sepsis, unspecified organism Status: Acute Assessment and Plan: - blood cultures positive for coag-negative staph aureus. VANCOMYCIN WAS DISCONTINUED ON 12/17/2020. patient completed a 7 day course of cefepime (Initiated on 12/14/2020) - urine cultures growing Karla albicans, given elevated white count, borderline blood pressures, patient was started Diflucan ON 12/17/2020 and completed course. [place] was changed. We do not have a PureWick catheter -Yeast was isolated in sputum cultures - lower extremity Dopplers were negative - afebrile and WBC count has normalized - no significant change in chest x-ray or secretions (4) Hypothyroidism: Code(s): E03.9 - Hypothyroidism, unspecified Status: Acute Assessment and Plan: continue levothyroxine (5) DVT prophylaxis: Code(s): Z29.9 - Encounter for prophylactic measures, unspecified Status: Acute Assessment and Plan: continue Lovenox - lower extremity venous Doppler negative for DVT (6) Hyperglycemia: Code(s): R73.9 - Hyperglycemia, unspecified Status: Acute Assessment and Plan: likely secondary to steroids continue Lantus and sliding scale insulin (7) Elevated liver enzymes: Code(s): R74.8 - Abnormal levels of other serum enzymes Status: Acute Assessment and Plan: mild elevation of AST and ALT noted on a.m. labs hold statin at this time minimize Tylenol use right upper quadrant ultrasound showed patient is status post cholecystectomy -LFTs improving (8) Tachycardia: Code(s): R00.0 - Tachycardia, unspecified Status: Acute Assessment and Plan: narrow complex tachycardia. Likely secondary to severe COPD electrolytes reviewed Continue low-dose beta-mika Additional Plan DVT prophylaxis - Lovenox Stress ulcer prophylaxis - IV Pepcid Nutrition - tolerating tube feeds Code Status - Full Code She is awaiting transfer to LTAC. Transfer has been unreasonably delayed due to LTAC staffing issues Total Critical Care Time - 32 minutes Due to a high probability of clinically significant, life threatening deterioration, the patient required my highest level of preparedness to intervene emergently and I personally spent this critical care time directly and personally managing the patient. This critical care time included obtaining a history; exa
[2020-12-28 11:25] LABS: Glucose Point of Care 165 mg/dl (65-105)
--- NOTE | 2020-12-28 11:40 | PCDIET ---
ICU Rounding Note: Patient tolerating Jevity 1.2 at 50mL/hr with 30mL water flush every 4 hours. Last recorded weight is 68.6kg which is down from last review. -I/O. Bowel Motility: Last documented BM on 12/27/20 x 1. Labs Reviewed: Glu (105) Meds Noted: Albuterol, Pulmicort, Oscal 500, Pepcid, Ferrous Sulfate, Apresoline, Lantus, Vitamin D, Atrovent, Synthroid, Lopressor, Centrum Additional Notes: Groin/buttocks macerated. Following daily in ICU rounds. Assessing/reassessing every Saturday/Saturday.
[2020-12-28] MEDS: methylPREDNISolone SOD SUCC 125 MG VIAL IV PUSH (12:00)
[2020-12-28] MEDS: ALBUTEROL SULFATE NEB 2.5 MG/0.5 ML INH 20 MG INHALATION (12:04)
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
== END 2020-12-28 14:50 | DRG 4 ==
LOC: ANHED 11-29 01:30 → ANH3MEDSUR 11-29 01:38 → ANHICU 12-06 06:52 → ANH3MEDSUR 12-29 13:20 → ANHICU 12-29 13:20 → ANHIMU 12-29 13:20
PROVIDERS: Internal Medicine; Internal Medicine Gastroenterology; Internal Medicine Pulmonary Disease; Otolaryngology; Physician Assistant; Admitting Provider Internal Medicine; Emergency Provider Emergency Medicine; PCP Internal Medicine; Visit Provider Internal Medicine
PROC: 0DH63UZ Insertion of Feeding Device into Stomach, Percutaneous Approach (ICD-10-PCS; CPT 43246; principal; 2020-12-14 14:00)
PROC: 0DJ08ZZ Inspection of Upper Intestinal Tract, Via Natural or Artificial Opening Endoscopic (ICD-10-PCS; CPT 43235; 2020-12-14 14:00)
PROC: 0B110F4 Bypass Trachea to Cutaneous with Tracheostomy Device, Open Approach (ICD-10-PCS; principal; 2020-12-16 14:00)
DX: J96.21 Acute and chronic respiratory failure with hypoxia (principal); A41.9 Sepsis, unspecified organism; J18.9 Pneumonia, unspecified organism; I47.1 Supraventricular tachycardia; R57.9 Shock, unspecified; K56.7 Ileus, unspecified; J43.1 Panlobular emphysema; Z20.822 Contact with and (suspected) exposure to COVID-19; E78.5 Hyperlipidemia, unspecified; I25.2 Old myocardial infarction; Z87.891 Personal history of nicotine dependence; I10 Essential (primary) hypertension; Z79.82 Long term (current) use of aspirin; Z99.81 Dependence on supplemental oxygen; R91.1 Solitary pulmonary nodule; E03.9 Hypothyroidism, unspecified; I49.3 Ventricular premature depolarization; I49.1 Atrial premature depolarization; F41.9 Anxiety disorder, unspecified; R33.9 Retention of urine, unspecified; J96.02 Acute respiratory failure with hypercapnia; I25.10 Atherosclerotic heart disease of native coronary artery without angina pectoris; R34 Anuria and oliguria; R73.9 Hyperglycemia, unspecified; T38.0X5A Adverse effect of glucocorticoids and synthetic analogues, initial encounter; Y92.230 Patient room in hospital as the place of occurrence of the external cause; B37.9 Candidiasis, unspecified; E87.5 Hyperkalemia; F40.240 Claustrophobia; D72.829 Elevated white blood cell count, unspecified; R14.0 Abdominal distension (gaseous); R74.8 Abnormal levels of other serum enzymes; D64.9 Anemia, unspecified
CPT/HCPCS: 31500; 36415; 36569; 36600; 43246; 71045; 71275; 74019; 76705; 80048; 80053; 80069; 80074; 80202; 81001; 82274; 82375; 82607; 82728; 82746; 82805; 82948; 83036; 83050; 83540; 83550; 83605; 83735; 83880; 84100; 84238; 84443; 84484; 85025; 85027; 85610; 85730; 87040; 87070; 87077; 87086; 87088; 87106; 87186; 87205; 93005; 93306; 93970; 94002; 94003; 94640; 94660; 96372; 96374; 96375; 96376; 99285; A9270; C1751; C9803; G0378; J0330; J0360; J0690; J0692; J1120; J1450; J1650; J1815; J1940; J1956; J2060; J2250; J2704; J2920; J2930; J2997; J3010; J3370; J7030; J7040; Q9967; U0003; U0005

== ENCOUNTER 2021-04-06 10:11 | Outpatient (CLI) | payer MEDICARE, SELFPAY ==
[2021-04-06 10:30] VITALS: PULSE 80; O2SAT 94
[2021-04-06 10:35] VITALS: PULSE 93; O2SAT 86
[2021-04-06 10:40] VITALS: PULSE 92; O2SAT 88
[2021-04-06 10:45] VITALS: PULSE 95; O2SAT 91
[2021-04-06 10:55] VITALS: PULSE 84; O2SAT 93
--- NOTE | 2021-04-06 11:05 | HOMEO2EVAL ---
Evaluation was performed at [facility] Home Oxygen Evaluation RC: Home Oxygen (O2) Evaluation Start: 04/06/21 11:01 Freq: Status: Active Protocol: RPE Activity Type Activity Date Activity User E-Sign Co-Sign Detail Recorded Client Recorded Date Recorded By Document 04/06/21 10:30 [email or web address] [email or web address] 04/06/21 11:05 DJO Document 04/06/21 10:35 [email or web address] [email or web address] 04/06/21 11:05 DJO Document 04/06/21 10:40 [email or web address] [email or web address] 04/06/21 11:05 DJO Document 04/06/21 10:45 [email or web address] [email or web address] 04/06/21 11:05 DJO Document 04/06/21 10:55 [email or web address] [email or web address] 04/06/21 11:05 DJO 04/06/21 04/06/21 04/06/21 10:30 10:35 10:40 Home O2 Evaluation Test Phase Resting Exercise Exercise Oxygen Delivery Room Air Room Air Nasal Cannula Oxygen Flow Rate (L/min) 1 Pulse Oximetry (90-100 %) 94 86 L 88 L Pulse Rate (60-100 beats/min) 80 93 92 Activity Tolerance Fair Ambulation Distance (feet) Treatment Charges O2 Evaluation - Outpatient 04/06/21 04/06/21 10:45 10:55 Home O2 Evaluation Test Phase Exercise Resting Oxygen Delivery Nasal Cannula Room Air Oxygen Flow Rate (L/min) 2 Pulse Oximetry (90-100 %) 91 93 Pulse Rate (60-100 beats/min) 95 84 Activity Tolerance Fair Ambulation Distance (feet) 500 Treatment Charges
--- NOTE | 2021-04-06 13:56 | WPDPFTINT ---
PFT Procedure Performed PFT Procedure Performed Spirometry with Pre/Post Bronchodilator Plethysmography (Lung Vol) Diffusing Cap (DLCO) Flow Vol Loop PFT Interpretation Lung volumes were measured with the body plethysmography method. The elevated total lung capacities is indicative of lung overinflation, and the elevated FRC and RV are indicative of air trapping. Spirometry showed diminished expiratory flow rates and a diminished FEV1 to FVC ratio 31% consistent with obstructive airway disease. Following administration of a bronchodilator there was no significant increase in the expiratory flow rates. Lung diffusion capacity severely reduced at 22% predicted. The flow volume loop is consistent with severe emphysema. In comparison to previous study done in 2019, the post bronchodilator measurements of FVC and FEV1 are little changed as are the degree of air trapping and lung diffusion capacity. Overall pulmonary function testing is consistent with very severe emphysema. Impression: Very severe obstructive airway disease with significant air trapping, lung overinflation and no response to bronchodilators on this testing. Severely reduced lung diffusion capacity.
== END 2021-04-06 10:12 | disposition home or self-care (01) ==
PROVIDERS: PCP Internal Medicine; Visit Provider Internal Medicine Pulmonary Disease
DX: J96.11 Chronic respiratory failure with hypoxia (principal); J44.9 Chronic obstructive pulmonary disease, unspecified; R94.2 Abnormal results of pulmonary function studies
CPT/HCPCS: 94060; 94618; 94726; 94729

== ENCOUNTER 2021-04-20 10:50 | Emergency (ER) | payer MEDICARE, SELFPAY ==
--- NOTE | ~2021-04-20 | XR_ITS ---
EXAMINATION: XR chest 2V DATE: 04/20/2021 11:33 INDICATION: Shortness of breath TECHNIQUE: AP and lateral views of the chest are obtained. COMPARISON: 12/28/2020 FINDINGS: Emphysema is noted. The previously described tracheostomy has been removed. The lungs are f ree of acute opacities. There is atelectasis and scarring of the lung bases. There is no pleural effu viky or pneumothorax. The cardiomediastinal silhouette is normal. There is moderate thoracic spondylo sis. IMPRESSION: 1. No acute cardiopulmonary abnormality. Reviewed, dictated and finalized at location A. ING CONSULTANT
[2021-04-20 10:56] VITALS: BP 153/57; PULSE 99; RESP 18; TEMP 36.6; O2SAT 100
--- NOTE | 2021-04-20 11:12 | ECG_ITS ---
Measurements Intervals [place] Rate: 94 P: 139 FL: 136 QRS: 40 QRSD: 86 T: 78 QT: 292 QTc: 365 Interpretive Statements SINUS RHYTHM DELAYED PRECORDIAL R/S TRANSITION BASELINE ARTIFACT- I, II, III, AVR, AVL, AVF, V1-V6 BORDERLINE ECG Electronically Signed On 04-20-2021 11:37:05 SENIOR LOGISTICS MANAGER by Drake Brewster D.O.
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
[2021-04-20 11:50] LABS: Alveolar/Arterial O2 Gradient 64.9 mmHg; Base Excess ABG 2.2 mEq/l (+/-2.0); Fractional Inspired Oxygen 28 %; HCO3 ABG 27.7 mEq/l (22.0-26.0); Methemoglobin ABG 0.3 %THb (0-1.5); Modified Allen's Test Pass; Oxygen Saturation ABG 95.5 % (95.0-100.0); Oxyhemoglobin 94.3 % THb (90.0-100.0); PCO2 ABG 47.2 mmHg (35.0-45.0); PO2 FiO2 Ratio Arterial Blood 2.82 %; Reduced Hemoglobin 5.4 %THb (0-5.0); Site Drawn LEFT RADIAL; pH ABG 7.387 (7.350-7.450)
[2021-04-20 11:51] LABS: Device NASAL CANNULA
[2021-04-20 11:53] LABS: Basophils Absolute Auto 0.1 K/mm3 (0.0-0.1); Basophils Percent Auto 0.3 % (0.2-1.2); Eosinophils Absolute Auto 0.1 K/mm3 (0-0.3); Eosinophils Percent Auto 0.6 % (0-4.4); Hematocrit 35.4 % (37.0-47.0); Hemoglobin 11.4 g/dL (12.0-15.0); Immature Granulocyte Absolute 0.05 K/mm3 (0.00-0.031); Immature Granulocyte Percent A 0.3 % (0-0.5); Lymphocytes Absolute Auto 3.43 K/mm3 (0.9-3.2); Lymphocytes Percent Auto 19.8 % (18.3-44.2); Mean Corpuscular HGB Conc 32.2 g/dl (32-36); Mean Corpuscular Hemoglobin 28.5 pg (26-34); Mean Corpuscular Volume 88.5 fl (80-100); Mean Platelet Volume 9.6 fl (7.4-10.4); Monocytes Absolute Auto 0.9 K/mm3 (0.1-0.6); Neutrophils Absolute Auto 12.8 K/mm3 (1.3-6.7); Platelet Count Result 302 k/mm3 (150-375); Red Cell Distribution Width 14.6 % (11.5-14.5); White Blood Count 17.3 K/mm3 (4.5-10.0)
[2021-04-20 12:04] LABS: Anion Gap 4 mmol/L (8-16); Blood Urea Nitrogen 16 mg/dL (7-17); Calcium 9.7 mg/dL (8.4-10.2); Carbon Dioxide 35 mmol/L (22-30); Chloride 103 mmol/L (98-107); Estimated CRCL calculation 34 ml/min; Estimated Glomerular Filt Rate 59; Glucose 137 mg/dL (65-110); Potassium 3.7 mmol/L (3.4-5.0); Sodium 142 mmol/L (137-145)
[2021-04-20 13:46] VITALS: BP 119/51; PULSE 83; RESP 16; O2SAT 95
[2021-04-20] MEDS: AZITHROMYCIN 250 MG TABLET 500 MG PO (13:50)
== END 2021-04-20 14:10 | disposition home or self-care (01) ==
PROVIDERS: Physician Assistant; Emergency Provider Emergency Medicine; PCP Internal Medicine
DX: J44.1 Chronic obstructive pulmonary disease with (acute) exacerbation (principal); J96.11 Chronic respiratory failure with hypoxia; I25.2 Old myocardial infarction; I10 Essential (primary) hypertension; E07.9 Disorder of thyroid, unspecified; Z99.81 Dependence on supplemental oxygen; Z87.891 Personal history of nicotine dependence; R94.31 Abnormal electrocardiogram [ECG] [EKG]
CPT/HCPCS: 36415; 36600; 71046; 80048; 82375; 82805; 83050; 85025; 93005; 99283; A9270

== ENCOUNTER 2022-08-23 11:01 | Outpatient (CLI) | payer MEDICARE, SELFPAY ==
--- NOTE | ~2022-08-23 | CT_ITS ---
CT Scan of the Chest without Contrast: Clinical Indication: Lung cancer screening, smoking history Technique: Contiguous sections were acquired throughout the chest without intravenous contrast. Dose reduction technique was used on this scan by utilizing automated exposure control and iterative recon struction technique. The dose-length product (DLP) was 121.52 mGy-cm. COMPARISON: 11/28/2020 and 10/16/2019 Findings: There is no evidence of any significant mediastinal, hilar or axillary lymphadenopathy. There are ath erosclerotic calcifications of the aorta. Coronary artery calcifications are present. Calcified right hilar lymph node present. There is no evidence of pleural or pericardial effusion. Stable right basilar scarring. Stable 6 mm noncalcified medial left basilar pulmonary nodule (axial i mage 76). Additional calcified granulomas are present.. Advanced emphysema present. Images through the upper abdomen reveal no abnormalities. Impression: Lung-RADS 2: Benign appearance. 12 month follow-up screening CT advised. Advanced emphysema. Evidence of prior granulomatous disease. Reviewed, dictated and finalized at [facility]. Impression: Lung-RADS 2: Benign appearance. 12 month follow-up screening CT advised. Advanced emphysema. Evidence of prior granulomatous disease.
[2022-08-23 10:30] VITALS: O2SAT 86
[2022-08-23 10:32] VITALS: PULSE 78; O2SAT 95
[2022-08-23 10:35] VITALS: PULSE 99; O2SAT 93
[2022-08-23 10:40] LABS: Alveolar/Arterial O2 Gradient 57.8 mmHg; Base Excess ABG 4.3 mEq/l (+/-2.0); Carboxyhemoglobin 0.1 % THb (0-2.0); Fractional Inspired Oxygen 28 %; HCO3 ABG 30.3 mEq/l (22.0-26.0); Methemoglobin ABG 0.3 %THb (0-1.5); Oxygen Content ABG 15.8 %vol (16.0-22.0); Oxygen Saturation ABG 95.7 % (95.0-100.0); PCO2 ABG 51.6 mmHg (35.0-45.0); PO2 FiO2 Ratio Arterial Blood 2.89 %; Reduced Hemoglobin 4.6 %THb (0-5.0); Total Hemoglobin 11.8 g/dL (12.0-18.0); pH ABG 7.387 (7.350-7.450)
[2022-08-23 10:42] LABS: Device NASAL CANNULA; Modified Allen's Test Pass; Site Drawn RIGHT RADIAL
[2022-08-23 10:45] VITALS: PULSE 76; O2SAT 96
--- NOTE | 2022-08-23 13:31 | HOMEO2EVAL ---
Evaluation was performed at [facility] Home Oxygen Evaluation RC: Home Oxygen (O2) Evaluation Start: 08/23/22 13:30 Freq: Status: Active Protocol: RPE Activity Type Activity Date Activity User E-sign Co-sign Detail Recorded Client Recorded Date Recorded By Document 08/23/22 10:30 [email or web address] [email or web address] 08/23/22 13:31 MEHDI Document 08/23/22 10:32 [email or web address] [email or web address] 08/23/22 13:31 MEHDI Document 08/23/22 10:35 [email or web address] [email or web address] 08/23/22 13:31 MEHDI Document 08/23/22 10:45 [email or web address] [email or web address] 08/23/22 13:31 MEHDI 08/23/22 08/23/22 08/23/22 10:30 10:32 10:35 Home O2 Evaluation [Oxygen] -Test Phase Resting Resting Exercise -Oxygen Delivery Room Air Nasal Cannula Nasal Cannula -Oxygen Flow Rate (L/min) 2 2 [Pulse Oximetry] -Pulse Oximetry (90-100 %) 86 L 95 93 [Pulse Rate] -Pulse Rate (60-100 beats/min) 78 99 [Charges] -Treatment Charges O2 Evaluation - Outpatient 08/23/22 10:45 Home O2 Evaluation [Oxygen] -Test Phase Resting -Oxygen Delivery Nasal Cannula -Oxygen Flow Rate (L/min) 2 [Pulse Oximetry] -Pulse Oximetry (90-100 %) 96 [Pulse Rate] -Pulse Rate (60-100 beats/min) 76 [Charges] -Treatment Charges
--- NOTE | 2022-08-23 13:32 | PCRCNOTE ---
Home o2 eval completed. Pt currently has home o2 with [employer]. 2 L at rest and with activity
[2022-08-26 14:42] LABS: Alpha-1-Antitrypsin, QN 186 mg/dL (83-199)
== END 2022-08-23 11:02 | disposition home or self-care (01) ==
PROVIDERS: PCP Emergency Medicine; Visit Provider Internal Medicine Pulmonary Disease
DX: E88.01 Alpha-1-antitrypsin deficiency (principal); J96.11 Chronic respiratory failure with hypoxia; J44.9 Chronic obstructive pulmonary disease, unspecified; Z87.891 Personal history of nicotine dependence; Z12.2 Encounter for screening for malignant neoplasm of respiratory organs
CPT/HCPCS: 36415; 36600; 71271; 82103; 82375; 82805; 83050; 94618

== ENCOUNTER 2023-02-23 07:31 | Inpatient (IN) | payer MEDICARE, SELFPAY ==
[2023-02-23] VITALS (40 sets, daily range): BP systolic 95–148; BP diastolic 50–80; PULSE 62–92; RESP 16–34; TEMP 36.1–36.6; O2SAT 98–100; BMI 24.5
--- NOTE | ~2023-02-23 | CT_ITS ---
EXAMINATION: CTA chest PE protocol DATE: 02/23/2023 15:11 INDICATION: SOB w/elevated troponin TECHNIQUE: Computed tomography angiography (CTA) of the chest was performed with 100 mL Omnipaque-350 intravenous contrast timed to evaluate the pulmonary arteries. Coronal maximum intensity projection 3D-reconstructions were created by the technologist. The dose-length product (DLP) was 303.41 mGy-cm. Automated exposure control and iterative reconstruction technique were employed. COMPARISON: CT lung screening 08/23/2022; CTPA 11/28/2020; CT lung screening 10/16/2019. FINDINGS: Lung parenchyma and airways: Severe emphysematous change. Bibasilar scar/atelectasis. 8 mm lobular le ft medial lower lobe nodule (measured in coronal plane) which demonstrates long-term stability. Calci fied granulomas. Pleura: Unremarkable. Thoracic inlet, axillae and chest wall: Unremarkable. Thoracic aorta: Normal. Mediastinum: Calcified hilar nodes.. Heart and pericardium: Small pericardial fluid collection. Aortic valve calcification. Coronary artery calcifications: Moderate. Upper abdomen: No significant finding. Bones: No acute osseous finding. Pulmonary arteries: Study quality: Adequate. No pulmonary emboli detected. IMPRESSION: No CT evidence of acute pulmonary embolus. No acute intrathoracic process detected. Reviewed, dictated and finalized at location K. IMPRESSION: No CT evidence of acute pulmonary embolus. No acute intrathoracic process detec patrick.
--- NOTE | ~2023-02-23 | XR_ITS ---
EXAMINATION: XR chest 1V portable Exam Date/Time: 02/24/2023 16:25 CDT HISTORY: SOB Comparison: 02/23/2023. RESULT: Lines, tubes, and devices: Possible coronary artery stents. Lungs and pleura: Senescent/emphysematous change. Bibasilar scar/atelectasis. Cardiomediastinal silhouette: Stable. Other: No acute osseous or upper abdominal finding. IMPRESSION: No acute cardiopulmonary process. Reviewed, dictated and finalized at location K.
--- NOTE | ~2023-02-23 | XR_ITS ---
EXAMINATION: XR chest 1V portable INDICATION: Shortness of breath TECHNIQUE: Portable AP chest at 0840 hours COMPARISON: 04/20/2021 FINDINGS: The lungs are hyperinflated but free of acute opacities. There is chronic atelectasis or sc arring of the right lung base. No pleural effusion or pneumothorax. The cardiomediastinal silhouette is stable. IMPRESSION: 1. No acute cardiopulmonary abnormality. Reviewed, dictated and finalized at location F.
--- NOTE | ~2023-02-23 | XR_ITS ---
Portable chest x-ray Comparison: 02/24/2023 Clinical History: COPD Findings: COPD pattern of the lungs is present with mild bibasilar interstitial prominence. No acute consolidation, pleural effusion, or pneumothorax. Cardiomediastinal silhouette is stable. Bones and soft tissues are unremarkable. Impression: COPD. Reviewed, dictated and finalized at location . Impression: COPD.
--- NOTE | 2023-02-23 07:33 | ECG_ITS ---
Measurements Intervals [place] Rate: 89 P: MA: 0 QRS: 34 QRSD: 78 T: 55 QT: 278 QTc: 339 Interpretive Statements PROBABLY SINUS RHYTHM (BASELINE ARTIFACT) BORDERLINE ST ABNORMALITY- ANTEROLATERAL LEADS BASELINE ARTIFACT- I, II, III, AVR, AVL, AVF, V1-V6 ABNORMAL ECG COMPARED TO ECG 04/20/2021 10:55:58 ST ABNORMALITY NOW PRESENT Electronically Signed On 02-23-2023 8:16:58 CDT by Drake Brewster D.O.
--- NOTE | 2023-02-23 07:37 | ED.SOB ---
HPI - SOB/Dyspnea General Chief Complaint: Shortness of Breath/Dyspnea Stated Complaint: SOB Source: patient and EMS Mode of arrival: EMS History of Present Illness HPI Narrative: 77 years old white female came from home by ambulance with severe shortness of breath waking up this morning. She denies any fever, chills, nausea, vomiting. History of COPD on BiPAP patient arrived by ambulance with BiPAP on. Related Data Home Medications Medication Instructions Recorded Confirmed amlodipine 5 mg tablet 5 mg PO DAILY 05/05/19 11/15/22 atorvastatin 40 mg tablet 40 mg PO DAILY 05/05/19 11/15/22 nitroglycerin 0.4 mg sublingual 0.4 mg sublingual Q5M PRN Chest 05/05/19 11/15/22 tablet Pain aspirin 81 mg tablet,delayed 81 mg PO DAILY 05/06/19 11/15/22 release calcium carbonate 600 mg calcium 600 mg PO BID 05/06/19 11/15/22 (1,500 mg) tablet levothyroxine 50 mcg tablet 50 mcg PO DAILY 05/06/19 11/15/22 albuterol sulfate 2.5 mg/3 mL 2.5 mg inhalation Q4-6H PRN 04/15/20 11/15/22 (0.083 %) solution for nebulization Shortness Of Breath multivit with minerals-iron 18 1 tablet PO DAILY 11/29/20 11/15/22 mg-folic ac 400 mcg-vit K 25 mcg tablet (Adults Multivitamin) Allergies Allergy/AdvReac Type Severity Reaction Status Date / Time No Known Allergies Allergy Verified 02/23/23 07:39 Review of Systems Review of Systems: ROS unobtainable: Yes unobtainable due to medical condition PMFSH Past Medical History Medical History Chronic hypoxemic respiratory failure Elevated lipids Gastrostomy tube in place H/O vaginal delivery History of heart attack History of tobacco use Hypertension Shortness of Breath Thyroid disease Unable to eat Surgical History Surgical History History of cholecystectomy History of total abdominal hysterectomy and bilateral salpingo-oophorectomy History of tubal ligation Family History Family History Mother Hypertension Sibling Family history of malignant neoplasm of kidney Family history of lung cancer Lung disease Social History Social History Smoking packs per day: 0.5 Smoking cigarettes per day: 10.0 Years smoked: 49 Smoking pack-years: 24.50 Smoking status: Former smoker Tobacco type: cigarettes Smoking end date: 10/27/18 Alcohol intake: never Substance use: never Living arrangements: with family Occupation/Education: retired Gender identity (if verbalized by the patient): Female Spiritual care concerns: No Exam Narrative: General appearance: Well-developed, well-nourished, BiPAP on Skin: Normal color Head: Normocephalic, nontraumatic Eyes: Clear conjunctiva ENT: Oropharynx normal, ears normal, nose normal Neck: Supple, nontender Chest and respiratory: Airway patent, mild respiratory distress, diminution of air entry bilaterally, no wheezing or rhonchi Heart: Regular rate/rhythm Abdomen: Soft, nontender, no organomegaly, quiet bowel sounds Vascular: Normal peripheral pulses, normal capillary refill. Musculoskeletal: Normal range of motion, nontender back Neurologic: Alert and oriented ?3, Course Vital Signs Vital signs: Vital Signs Temperature 36.6 C 02/23/23 07:25 Pulse Rate 92 02/23/23 07:25 Respiratory Rate 34 H 02/23/23 07:25 Pulse Oximetry 100 02/23/23 07:25 Oxygen Delivery CPAP 02/23/23 07:25 Temperature 36.6 C 02/23/23 07:25 Pulse Rate 74 02/23/23 09:32 Respiratory Rate 22 H 02/23/23 09:32 Blood Pressure 98/63 L
[2023-02-23] MEDS: methylPREDNISolone SOD SUCC 125 MG VIAL IV PUSH (07:49)
[2023-02-23] MEDS: ALBUTEROL SULFATE NEB 2.5 MG/3 ML INH INHALATION ×5 (07:52→20:58)
[2023-02-23] MEDS: IPRATROPIUM BR 0.02% INH SOLN 0.5 MG/2.5 ML VIAL INHALATION ×5 (07:52→20:58)
[2023-02-23 07:55] LABS: Basophils Absolute Auto 0.1 K/mm3 (0.0-0.1); Basophils Percent Auto 0.4 % (0.2-1.2); Eosinophils Absolute Auto 0.3 K/mm3 (0-0.3); Eosinophils Percent Auto 1.7 % (0-4.4); Hematocrit 34.9 % (37.0-47.0); Immature Granulocyte Absolute 0.08 K/mm3 (0.00-0.031); Immature Granulocyte Percent A 0.5 % (0-0.5); Lymphocytes Absolute Auto 5.34 K/mm3 (0.9-3.2); Lymphocytes Percent Auto 31.5 % (18.3-44.2); Mean Corpuscular HGB Conc 31.5 g/dl (32-36); Mean Corpuscular Volume 88.8 fl (80-100); Mean Platelet Volume 10.3 fl (7.4-10.4); Monocytes Absolute Auto 0.8 K/mm3 (0.1-0.6); Monocytes Percent Auto 4.7 % (2.6-8.5); Neutrophils Absolute Auto 10.4 K/mm3 (1.3-6.7); Neutrophils Percent Auto 61.2 % (45.5-73.1); Platelet Count Result 491 k/mm3 (150-375); Red Blood Count 3.93 M/mm3 (4.2-5.4); Red Cell Distribution Width 16.7 % (11.5-14.5); White Blood Count 16.9 K/mm3 (4.5-10.0)
[2023-02-23 08:04] LABS: Alanine Aminotransferase 14 U/L (6-35); Albumin Level 4.3 g/dL (3.5-5.1); Alkaline Phosphatase 127 U/L (38-126); Anion Gap 7 mmol/L (8-16); Aspartate Amino Transferase 18 U/L (14-36); Bilirubin,Total 0.6 mg/dL (0.2-1.3); Blood Urea Nitrogen 13 mg/dL (7-17); Calcium 8.9 mg/dL (8.4-10.2); Carbon Dioxide 32 mmol/L (22-30); Chloride 101 mmol/L (98-107); Estimated CRCL calculation 33 ml/min; Estimated Glomerular Filt Rate 59; Glucose 113 mg/dL (65-110); Potassium 3.3 mmol/L (3.4-5.0); Sodium 140 mmol/L (137-145)
[2023-02-23 08:05] LABS: INR 1.1; Prothrombin Time 14.4 Seconds (11.1-14.7)
[2023-02-23 08:06] LABS: Partial Thromboplastin Time 34.4 SECONDS (22.3-36.8)
[2023-02-23 08:16] LABS: NT Pro B Type Natriuretic Pept 401 pg/mL (19.9-100); Troponin I < 0.012 ng/mL (0.000-0.034)
[2023-02-23 08:31] LABS: Alveolar/Arterial O2 Gradient 73.8 mmHg; Base Excess ABG 3.6 mEq/l (+/-2.0); Fractional Inspired Oxygen 30 %; HCO3 ABG 28.9 mEq/l (22.0-26.0); Oxygen Content ABG 16.4 %vol (16.0-22.0); Oxygen Saturation ABG 96.4 % (95.0-100.0); Oxyhemoglobin 94.9 % THb (90.0-100.0); PCO2 ABG 46.8 mmHg (35.0-45.0); PO2 ABG 85.1 mmHg (80.0-100.0); PO2 FiO2 Ratio Arterial Blood 2.84 %; Total Hemoglobin 12.2 g/dL (12.0-18.0)
[2023-02-23 08:32] LABS: Device NON-INVASIVE VENT; Modified Allen's Test Pass; Site Drawn RIGHT RADIAL; pH ABG 7.409 (7.350-7.450)
[2023-02-23 08:33] LABS: Non-Invasive Inspiratory Pressure 12 CMH2O
[2023-02-23 08:34] LABS: Non-Invasive Expiratory Pressure 6 CMH2O; Non-Invasive Vent Rate 4 /MIN
[2023-02-23] MEDS: POTASSIUM CHLORIDE 20 MEQ ER TABLET 40 MEQ PO (09:59)
[2023-02-23 10:58] LABS: Troponin I 0.067 ng/mL (0.000-0.034)
--- NOTE | 2023-02-23 13:23 | ECG_ITS ---
Measurements Intervals [place] Rate: 78 P: 93 HI: 163 QRS: 37 QRSD: 79 T: 91 QT: 370 QTc: 421 Interpretive Statements SINUS RHYTHM LOW QRS VOLTAGE IN LIMB LEADS BASELINE ARTIFACT- I, III, AVR, AVL, AVF, V1-V6 BORDERLINE ECG COMPARED TO ECG 02/23/2023 07:34:36 NO SIGNIFICANT CHANGES Electronically Signed On 02-23-2023 20:26:18 CDT by Drake Brewster D.O.
[2023-02-23] MEDS: methylPREDNISolone SOD SUCC 125 MG VIAL 60 MG IV PUSH ×2 (13:40→18:11)
--- NOTE | 2023-02-23 13:57 | PM.IMHP ---
H&P: HPI History of Present Illness Date/Time: 02/23/23 13:57 Chief Complaint: SOB Narrative: 77 y/o F presents here with SOB with PMH of COPD requiring O2 at baseline, [place], former tobacco use, HTN, and hypothyroidism. Patient woke up this morning and went to use the restroom. reports that during that time her nasal cannula became unhooked from her oxygen source. Shortly thereafter she became severely short of breath. called 911, EMS arrived and placed BiPAP EN route to the emergency department. Arrived at 100% with supplemental oxygen. +tachypnea and work of breathing. reports compliance with COPD medication, no recent illnesses, no chest pain, no fevers, congestion nausea, or vomiting. Baseline O2 requirement of 2L. Reports intermittent dry cough at baseline. No change to cough or sputum production. [facility] Past Medical History Medical History Chronic hypoxemic respiratory failure Elevated lipids Gastrostomy tube in place H/O vaginal delivery History of heart attack History of tobacco use Hypertension Shortness of Breath Thyroid disease Unable to eat Surgical History Surgical History History of cholecystectomy History of total abdominal hysterectomy and bilateral salpingo-oophorectomy History of tubal ligation Family History Family History Mother Hypertension Sibling Family history of malignant neoplasm of kidney Family history of lung cancer Lung disease Social History Social History (Updated 02/24/23 @ 00:56 by Marlena Dale APRN) Social History: Currently lives with in [place]. Surrogate decisionmaker: William, . Full Code. Retired from [employer]. Patient has 3 children. Smoking packs per day: 1 Smoking cigarettes per day: 20.0 Years smoked: 50 Smoking pack-years: 50.00 Smoking status: Former smoker Tobacco type: cigarettes Smoking end date: 10/27/18 Alcohol intake: never Substance use: never Lack of Transportation: No Lack of Food: Never True Current Housing: I Have Housing Concerned About Future Housing: No Difficulty Paying Gas/Electric Bills: No Difficulty Paying for Meds: No Currently Unemployed: No Education: High School Diploma/GED Difficulty w/ Childcare or Family Care: No Living arrangements: with family Occupation/Education: retired Gender identity (if verbalized by the patient): Female Spiritual care concerns: No Meds Home Medications and Allergies Home Medications Medication Instructions Recorded Confirmed Type amlodipine 5 mg tablet 5 mg PO DAILY 05/05/19 02/23/23 History atorvastatin 40 mg tablet 40 mg PO DAILY 05/05/19 02/23/23 History aspirin 81 mg tablet,delayed 81 mg PO DAILY 05/06/19 02/23/23 History release calcium carbonate 600 mg calcium 600 mg PO BID 05/06/19 02/23/23 History (1,500 mg) tablet levothyroxine 50 mcg tablet 50 mcg PO DAILY 05/06/19 02/23/23 History albuterol sulfate 90 mcg/actuation 1 puff inhalation Q4H 02/23/23 02/23/23 History aerosol inhaler budesonide 160 mcg-glycopyr 9 2 inh inhalation BID 02/23/23 02/23/23 History mcg-formot 4.8 mcg/actuation HFA inhaler (LeukoDxzOssDsign ABi Aerosphere) ropinirole 0.25 mg tablet 0.25 mg PO DAILY 02/23/23 02/23/23 History valsartan 160 mg tablet 160 mg PO DAILY 02/23/23 02/23/23 History Allergies Allergy/AdvReac Type Severity Reaction Status Date / Time No Known Allergies Allergy Verified 02/23/23 07:39 Vital Signs Vital Signs - 24 hr 02/23/23 07:25 02/23/23 07:40 02/23/23 07:55 Temperature 97.9 F Pulse Rate 92 88 Respiratory Rate 34 H 24 H Blood Pressure Pulse Oximetry 100 100 Oxygen Delivery CPAP CPAP 02/23/23 07:37 02/23/23 07:51 02/23/23 08:00 Temperature Pulse Rate 92 86 85 Respiratory Rate 28 H 22 H 25
[2023-02-23 14:21] LABS: Troponin I 0.057 ng/mL (0.000-0.034)
[2023-02-23 16:12] LABS: Influenza A QL RT-PCR Negative (Negative); Influenza B QL RT-PCR Negative (Negative); RSV RNA, RT-PCR Negative (Negative); SARS-CoV-2 RNA PCR Negative (Negative)
[2023-02-23] MEDS: IPRATROPIUM BR 0.02% INH SOLN 0.5 MG/2.5 ML VIAL 1 MG INHALATION (18:51)
[2023-02-23] MEDS: ALBUTEROL SULFATE NEB 2.5 MG/3 ML INH 10 MG INHALATION (18:51)
[2023-02-24] VITALS (29 sets, daily range): BP systolic 100–146; BP diastolic 52–72; PULSE 61–107; RESP 12–28; TEMP 36.1–36.8; O2SAT 95–100
[2023-02-24] MEDS: methylPREDNISolone SOD SUCC 125 MG VIAL 60 MG IV PUSH ×4 (00:01→17:16)
[2023-02-24] MEDS: IPRATROPIUM BR 0.02% INH SOLN 0.5 MG/2.5 ML VIAL INHALATION ×5 (01:57→20:41)
[2023-02-24] MEDS: ALBUTEROL SULFATE NEB 2.5 MG/3 ML INH INHALATION ×5 (01:57→20:41)
[2023-02-24] MEDS: LEVOTHYROXINE SODIUM 50 MCG TABLET PO (05:43)
--- NOTE | 2023-02-24 08:21 | P.PNIM_ITS ---
Progress Note: A&P Assessment and Plan (1) Shortness of Breath: Code(s): R06.02 - Shortness of breath Status: Acute (2) COPD exacerbation: Code(s): J44.1 - Chronic obstructive pulmonary disease with (acute) exacerbation Status: Acute (3) Elevated troponin: Code(s): R77.8 - Other specified abnormalities of plasma proteins Status: Acute (4) Hypokalemia: Code(s): E87.6 - Hypokalemia Status: Acute Plan Plan of Care 1. SOB * CXR impression 1. No acute cardiopulmonary abnormality. * Viral PCR * Nebs -> increased from q.6 to Q4, 1 continuous given * hold home home albuterol inhaler, transition to after patient no longer requires scheduled nebs * SoluMedrol Q6H * Cardiac monitoring * VS Q2H * TYL PRN for pain Possible due to COPD exacerbation 2. COPD Exacerbation, acute on chronic respiratory failure with hypoxemia and hypercapnia * Scheduled nebs - albuterol and Atrovent Q6HRT, * Continue methylprednisolone IV * Reported compliance to medication, no issues with filling medication * Baseline O2 requirement - 2L nasal cannula * Currently patient is on BiPAP and high-flow oxygen doctor * Consult iron cutter for evaluation treatment 3. Elevated troponin * Trend troponin: <0.012 -> 0.067 -> 0.057, EKG shows sinus rhythm no specific ST T wave changes, * CT shows moderate of coronary artery calcification * Repeat EKG impression * Echo Comp - due to positive troponin and shortness of breath, BNP 401 * CTA PE Protocol - negative for PE * Start aspirin 325 mg once 81 mg daily p.o. * consult cotton jammer for evaluation treatment 4. Hypokalemia * Initial K 3.3 * KCL 40 p.o. given in ED -> continue 40 p.o. b.i.d. * trend chemistry, add mag/phos Chronic Conditions - RLS: Continue home medication - ropinirole - HTN: Continue home medication - valsartan, amlodipine, ASA 81. Monitor blood pressure. - HLD: Continue home medication - atorvastatin - Hypothyroidism: Continue home medication - levothyroxine - Supplements: Continue home Calcium Diet: Heart healthy GI Prophylaxis: Not indicated at this time DVT Prophylaxis: SCDs, Lovenox 40 Lines: pIV Code Status: Full Code Subjective Date/time seen: 02/24/23 08:21 Interval history: I saw and examined patient today. Patient still has significant shortness of breath at rest, patient was on high-flow oxygen and BiPAP alternatively. Jessica ent denied chest pain, abdomen pain, focal weakness Exam Narrative: GENERAL: some respiratory distress. Well-nourished. - EYES: EOMI. Anicteric. - HENT: Moist mucous membranes. - LUNGS: Decreased air entry bilaterall y, tachypnea - CARDIOVASCULAR: Regular rate and rhyth m. No murmur. No JVD. - ABDOMEN: Soft, non-tender and non-dist ended. No palpable masses. - EXTREMITIES: No edema. Peripheral puls es 2+. Non-tender. - NEUROLOGIC: No focal neurological defi cits. CN II-XII grossly intact. - PSYCHIATRIC: Awake, Alert and oriented x 3. Appropriate mood and affect. - SKIN: No rashes or lesions. Warm. - LYMPH: No cervical lymphadenopathy. Objective
--- NOTE | 2023-02-24 08:21 | PM.IMPN ---
Progress Note: A&P Assessment and Plan (1) Shortness of Breath: Code(s): R06.02 - Shortness of breath Status: Acute (2) COPD exacerbation: Code(s): J44.1 - Chronic obstructive pulmonary disease with (acute) exacerbation Status: Acute (3) Elevated troponin: Code(s): R77.8 - Other specified abnormalities of plasma proteins Status: Acute (4) Hypokalemia: Code(s): E87.6 - Hypokalemia Status: Acute Plan Plan of Care 1. SOB CXR impression 1. No acute cardiopulmonary abnormality. Viral PCR Nebs -> increased from q.6 to Q4, 1 continuous given hold home home albuterol inhaler, transition to after patient no longer requires scheduled nebs SoluMedrol Q6H Cardiac monitoring VS Q2H TYL PRN for pain Possible due to COPD exacerbation 2. COPD Exacerbation, acute on chronic respiratory failure with hypoxemia and hypercapnia Scheduled nebs - albuterol and Atrovent Q6HRT, Continue methylprednisolone IV Reported compliance to medication, no issues with filling medication Baseline O2 requirement - 2L nasal cannula Currently patient is on BiPAP and high-flow oxygen doctor Consult messaging architect for evaluation treatment 3. Elevated troponin Trend troponin: <0.012 -> 0.067 -> 0.057, EKG shows sinus rhythm no specific ST T wave changes, CT shows moderate of coronary artery calcification Repeat EKG impression Echo Comp - due to positive troponin and shortness of breath, BNP 401 CTA PE Protocol - negative for PE Start aspirin 325 mg once 81 mg daily p.o. consult showroom salesperson for evaluation treatment 4. Hypokalemia Initial K 3.3 KCL 40 p.o. given in ED -> continue 40 p.o. b.i.d. trend chemistry, add mag/phos Chronic Conditions - RLS: Continue home medication - ropinirole - HTN: Continue home medication - valsartan, amlodipine, ASA 81. Monitor blood pressure. - HLD: Continue home medication - atorvastatin - Hypothyroidism: Continue home medication - levothyroxine - Supplements: Continue home Calcium Diet: Heart healthy GI Prophylaxis: Not indicated at this time DVT Prophylaxis: SCDs, Lovenox 40 Lines: pIV Code Status: Full Code Subjective Date/time seen: 02/24/23 08:21 Interval history: I saw and examined patient today. Patient still has significant shortness of breath at rest, patient was on high-flow oxygen and BiPAP alternatively. Patient denied chest pain, abdomen pain, focal weakness Exam Narrative: GENERAL: some respiratory distress. Well-nourished. - EYES: EOMI. Anicteric. - HENT: Moist mucous membranes. - LUNGS: Decreased air entry bilaterally, tachypnea - CARDIOVASCULAR: Regular rate and rhythm. No murmur. No JVD. - ABDOMEN: Soft, non-tender and non-distended. No palpable masses. - EXTREMITIES: No edema. Peripheral pulses 2+. Non-tender. - NEUROLOGIC: No focal neurological deficits. CN II-XII grossly intact. - PSYCHIATRIC: Awake, Alert and oriented x 3. Appropriate mood and affect. - SKIN: No rashes or lesions. Warm. - LYMPH: No cervical lymphadenopathy. Objective Data Vital Signs Vital Signs: Vital Signs - 24 hr 02/23/23 08:40 02/23/23 09:12 02/23/23 08:35 Temperature Pulse Rate 87 75 83 Respiratory Rate 25 H 20 24 H Blood Pressure Pulse Oximetry 100 100 Oxygen Delivery BiPAP Oxygen Flow Rate Fraction of Inspired Oxygen 02/23/23 08:46 02/23/23 09:06 02/23/23 09:23 Temperature Pulse Rate 84 79 75 Respiratory Rate 17 21 H 23 H Blood Pressure Pulse Oximetry 100 100 Oxygen Delivery Oxygen Flow Rate Fraction of Inspired Oxygen 02/23/23 09:31 02/23/23 09:32 02/23/23 09:33 Temperature Pulse Rate 74 74 73 Respiratory Rate 21 H 22 H 21 H Blood Pressure 98/63 L Pulse Oximetry 100 100 100 Oxygen Delivery Oxygen Flow Rate Fraction of Inspired Oxygen 02/23/23 09:45 02/23/23 09:47 02/23/23 10:00 Temperature Pulse Rate 73 72 74 Respiratory Rate 16
[2023-02-24] MEDS: VALSARTAN 160 MG TABLET PO (08:34)
[2023-02-24] MEDS: POTASSIUM CHLORIDE 20 MEQ ER TABLET 40 MEQ PO (08:35)
[2023-02-24] MEDS: rOPINIRole HCL 0.25 MG TABLET PO (08:35)
[2023-02-24] MEDS: amLODIPine BESYLATE 5 MG TABLET PO (08:35)
[2023-02-24] MEDS: ENOXAPARIN 40 MG/0.4 ML SYRINGE SUB-Q (08:35)
[2023-02-24] MEDS: ASPIRIN 81 MG ENTERIC TABLET PO (08:35)
[2023-02-24] MEDS: ATORVASTATIN 40 MG TABLET PO (08:35)
[2023-02-24] MEDS: CALCIUM CARBONATE (OSCAL) 500 MG TABLET PO (08:35)
[2023-02-24] MEDS: ASPIRIN 81 MG CHEWABLE TABLET 324 MG PO (11:05)
--- NOTE | 2023-02-24 11:33 | PM.CNCAR ---
Assessment and Plan Assessment and plan (1) Elevated troponin: Code(s): R77.8 - Other specified abnormalities of plasma proteins Status: Acute Plan This is a 77-year-old lady with history of single-vessel coronary disease treated successfully with PCI back in 2019 as I described above. She also has a history of relatively severe COPD with emphysema is related to a longstanding history of cigarette smoking. She is not having any recent cardiac problems at all although has not been seen in our office for follow-up in about 3 years. Her current admission appears to be a COPD exacerbation. Troponin levels are trivially elevated this does not represent acute coronary syndrome and does not require further ischemic testing while she is in the hospital. She would probably benefit from consultation with her instrument lens grinder apprentice regarding her COPD but that will be left to the discretion of the primary team Valentín Morales MD [facility] History of Present Illness History of Present Illness Consult date/time: 02/24/23 11:33 Reason For Visit: COPD Exacerbation/Noncompliance with Oxygen Supple Narrative: This is a 77-year-old woman I am seeing at the request of the hospitalist with very small troponin rise in consultation. She is a lady with a history of longstanding severe COPD who entered the hospital yesterday with a COPD exacerbation. According to the notes that there is suspicion that she had run out of or was not on her oxygen for some reason and this might have been the reason for her decompensation. She is not reporting any symptoms of chest pain pressure or heaviness she does not have any ECG findings of ischemia or injury. Troponin levels that were normal on admission angela to 0.06 prompting consultation for me to see this lady. She is wearing nasal cannula oxygen in the IMU when I came in to see her she is resting supine appears to be comfortable and not in any distress. Imaging including chest x-ray and CTA of the chest show evidence of severe emphysema but no other significant abnormalities. She does have a history of coronary artery disease which is not mentioned in the notes in the chart. She presented to this hospital back in 2019 with severe shortness of breath as well as some chest pressure as well. We were consulted to see the patient at that time and she ultimately under underwent coronary angiography demonstrating severe single-vessel coronary disease. There were no significant left coronary lesions there was a high-grade stenosis between the 2nd and 3rd portions of the right coronary artery which was preceded by long area of more mild atherosclerosis. This was treated with some difficulty but with angiographic and clinical success using two 3.5mm Orsiro drug-eluting stents. The target lesion was treated with 1 stent and then there was some proximal dissection in the artery that was covered with overlapping device. She had a nice angiographic result and was seen in the office for several times for follow-up with no recurrent ischemic problems. One year following PCI she was taken off of dual anti-platelet therapy. It looks like according to my office records in 2019 she canceled a follow-up appointment and did not reschedule it. None the less she has done well in the intervening 3 years and does not have any direct cardiac complaints at this time Review of Systems Constitutional: Constitutional: Reports lethargy Eyes: Eyes: Reports no additional eye complaints ENT: Reports system reviewed and no additional complaints, except as documented Cardiovascular: Cardiovascular: Reports no additional cardiovascular complaints Respiratory: Respiratory: Reports dyspnea Gastrointestinal: Gastrointestinal: Reports no additional gastrointestinal complaints Musculoskeletal: Musculoskeletal: Reports arthralgias Integumentary/Breasts: Skin/Breast: Reports system reviewed and no additional complaints, except as docu Neurologic: Repor
[2023-02-24] MEDS: FLUTICASONE/UMECLIDIN/VILANTER 100-62.5-25 MCG ELLIPTA 1 PUFF INHALATION (11:42)
[2023-02-24 17:04] LABS: Alveolar/Arterial O2 Gradient 96.9 mmHg; Base Excess ABG 2.7 mEq/l (+/-2.0); Fractional Inspired Oxygen 30 %; HCO3 ABG 27.9 mEq/l (22.0-26.0); Oxygen Content ABG 15.6 %vol (16.0-22.0); Oxygen Saturation ABG 92.3 % (95.0-100.0); PCO2 ABG 45.5 mmHg (35.0-45.0); PO2 ABG 63.5 mmHg (80.0-100.0); PO2 FiO2 Ratio Arterial Blood 2.12 %; Total Hemoglobin 12.2 g/dL (12.0-18.0); pH ABG 7.405 (7.350-7.450)
[2023-02-24 17:06] LABS: Device NON-INVASIVE VENT; Modified Allen's Test Pass; Site Drawn RIGHT RADIAL
[2023-02-24 17:07] LABS: Non-Invasive Expiratory Pressure 6 CMH2O; Non-Invasive Inspiratory Pressure 12 CMH2O; Non-Invasive Vent Rate 4 /MIN
[2023-02-25] VITALS (35 sets, daily range): BP systolic 113–145; BP diastolic 55–99; PULSE 65–88; RESP 15–28; TEMP 36–37.1; O2SAT 93–100
--- NOTE | 2023-02-25 | ECHO_ITS ---
Patient Info Name: Laxmi Colon Age: 77 years : 1945 Gender: Female Ht: 64 in Wt: 143 lbs BSA: 1.72 m2 HR: 73 bpm BP: 120 / 55 mmHg Heart Rhythm: Sinus Rhythm Technical Quality: Fair Exam Date: 02/25/2023 11:33 AM Exam Location: [facility] Pulmonary Patient Status: Inpatient Admit Date: 02/24/2023 Staff Ordering Physician: Marlena Dale APRN Egg Buyer: Katey Forte RDCS Attending Provider: Marsha Billingsley DO Referring Physician: Suyapa ALMEIDA; Exam Type: CA echo doppler color flow Study Info Indications - elevated trop, bnp elevated R06.09 - Other forms of dyspnea Complete two-dimensional, color flow and Doppler transthoracic echocardiogram is performed. Summary 1. Complete two-dimensional, color flow and Doppler transthoracic echocardiogram is performed. 2. Normal left ventricular size with vigorous, hyperdynamic contractility and no ischemic wall motion abnormality. 3. Mildly sclerotic aortic valve. 4. Mildly calcified mitral valve annulus. Left Ventricle Left ventricular chamber dimension is normal. Left ventricular systolic function is hyperdynamic, estimated at >70%. The left ventricular diastolic function is grade I diastolic dysfunction. Right Ventricle Right ventricular chamber dimension is normal. Right Atria Right atrial chamber dimension is normal. Aortic Valve The aortic valve is trileaflet. There is mild aortic valve sclerosis. Pulmonic Valve The pulmonic valve is not well visualized. Mitral Valve The mitral valve has normal leaflets. The mitral valve annulus is mildly calcified. Tricuspid Valve The tricuspid valve leaflets are normal. Pericardium/Pleural The pericardium appears normal. Aorta The aortic root size at the sinus of Valsalva is normal. Left Ventricular Outflow Tract Name Value Normal LVOT 2D LVOT Diameter 1.8 cm LVOT Doppler LVOT Peak Gradient 5 mmHg LVOT Mean Gradient 2 mmHg LVOT VTI 19 cm LVOT VTI/AV VTI Ratio 0.8 LVOT Stroke Volume 46 ml LVOT CO 3.8 l/min LVOT CI 2.2 l/min/m2 Pulmonic Valve Name Value Normal RVOT Doppler RVOT Peak Gradient 3 mmHg PV Doppler PV Peak Gradient 5 mmHg Mitral Valve Name Value Normal MV Doppler MV Decel Miller 508 cm/s2 MV PHT 53 ms MV Area (PHT) 4.1 cm2 4.0-5.0 MV Di
[2023-02-25] MEDS: methylPREDNISolone SOD SUCC 125 MG VIAL 60 MG IV PUSH ×2 (00:14→05:59)
[2023-02-25] MEDS: IPRATROPIUM BR 0.02% INH SOLN 0.5 MG/2.5 ML VIAL INHALATION ×5 (02:58→20:26)
[2023-02-25] MEDS: ALBUTEROL SULFATE NEB 2.5 MG/3 ML INH INHALATION ×5 (02:58→20:26)
[2023-02-25 04:35] LABS: Hematocrit 34.1 % (37.0-47.0); Hemoglobin 10.6 g/dL (12.0-15.0); Mean Corpuscular HGB Conc 31.1 g/dl (32-36); Mean Corpuscular Hemoglobin 28.3 pg (26-34); Mean Corpuscular Volume 91.2 fl (80-100); Mean Platelet Volume 10.6 fl (7.4-10.4); Platelet Count Result 505 k/mm3 (150-375); Red Blood Count 3.74 M/mm3 (4.2-5.4); Red Cell Distribution Width 17.3 % (11.5-14.5)
[2023-02-25 05:06] LABS: Alanine Aminotransferase 17 U/L (6-35); Albumin Level 4.1 g/dL (3.5-5.1); Alkaline Phosphatase 117 U/L (38-126); Anion Gap 9 mmol/L (8-16); Aspartate Amino Transferase 22 U/L (14-36); Bilirubin,Total 0.4 mg/dL (0.2-1.3); Blood Urea Nitrogen 21 mg/dL (7-17); Calcium 9.5 mg/dL (8.4-10.2); Carbon Dioxide 31 mmol/L (22-30); Chloride 103 mmol/L (98-107); Estimated CRCL calculation 37 ml/min; Estimated Glomerular Filt Rate > 60; Glucose 159 mg/dL (65-110); Magnesium 2.3 mg/dL (1.6-2.3); Phosphorus 4.4 mg/dL (2.5-4.5); Potassium 4.6 mmol/L (3.4-5.0); Sodium 143 mmol/L (137-145)
--- NOTE | 2023-02-25 05:34 | PM.CNPUL ---
Assessment and Plan Assessment and plan (1) COPD exacerbation: Code(s): J44.1 - Chronic obstructive pulmonary disease with (acute) exacerbation Status: Acute Assessment and Plan: GOLD grade 4 group E COPD Tobacco use 47 PY, quit 10/2018.? 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 PFTs 04/06/2021 with FEV1 0.56 L, 31%, air trapping, hyperinflation, moderately decreased DLCO when corrected for alveolar volume) on 2 L nasal cannula oxygen 17/12, tobacco exposure, severe panlobular emphysema on her CT scan 11/28/20,?finished?pulmonary rehabilitation on 10/21/20. ?ABG 08/23/2022 on 2 L 7.39/52/81 and initiated on home BiPAP 08/10. Status post COPD exacerbation with intubation and failure to wean requiring tracheostomy 12/16/2020. Patient had an acute deterioration after attempting to have a bowel movement and straining. She had no fever, chills, rigors, change in cough, change in phlegm production or change in phlegm color prior to this event. CT angiogram of the chest is negative for PE. COVID, influenza, RSV negative. 02/25 with entered the room the patient was on Airvo 60 L, 32% FiO2 with saturations 98%. She is in mild respiratory distress. Currently she states she is a little better than when she presented but she still gets short of breath when she talks and she has not been out of bed. She denies fever, chills, rigors and no change in her phlegm production which is 1 time a week with clear phlegm. She has no chest pain. Plan: The patient currently has no wheezing and is a little bit improved. I will change her Solu-Medrol from 60 Q 6-40 Q 6. I will continue albuterol and ipratropium and increase the frequency from q.6 hours to q.4 hours. There is no focal infiltrate on her CT scan, I will treat her for tracheobronchitis with azithromycin 500 mg IV q.day X1 then 250 Q day X 4. Will follow with you. (2) Respiratory failure with hypoxia and hypercapnia: Code(s): J96.91 - Respiratory failure, unspecified with hypoxia; J96.92 - Respiratory failure, unspecified with hypercapnia Status: Acute Assessment and Plan: Patient with chronic hypoxemic respiratory failure on 2 L nasal cannula at rest, with ambulation and bleed in at night with her noninvasive ventilator with BiPAP rate 16, 15/5. Patient tells me she has been tolerating the BiPAP at home and her last download 427 through 10/20/2022 demonstrated compliance at 74%, average usage 6 hours and 40 minutes, AHI 2.7 with median leak of 21.6, median tidal volumes were 867 and immediate minute ventilation was 14.1. 02/25/23: 08:00 Airvo 60 L, 32%, sats 98. Plan: I will attempt to obtain a download from her [employer] company, [employer] Patient. In the meantime, I will change the hospital BiPAP to match her home settings as listed above and 40%. Discussed with respiratory and will attempt to wean her Airvo flow down throughout the day today. History of Present Illness History of Present Illness Consult date: 02/25/23 Chief complaint: COPD Exacerbation/Noncompliance with Oxygen Supple Narrative: 02/25/2023: This is a new pulmonary consult for COPD exacerbation with chronic hypoxic and hypercarbic respiratory failure on home BiPAP. 77-year-old with a history of COPD, ME, hypertension, hypothyroidism. I follow the patient in the Pulmonary Clinic and she was last seen on 11/15/2022. Patient has GOLD grade 3 group B (now group E) COPD. Tobacco use 47 PY, quit 10/2018.? 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 PFTs 04/06/2021 with FEV1 0.56 L, 31%, air trapping, hyperinflation, moderately decreased DLCO when corrected for alveolar volume) on 2 L nasal cannula oxygen 24/7, tobacco exposure, severe panlobular emphysema on her CT scan 11/28/20,?finished?pulmonary rehabilitation on 10/21/20. ?ABG 08/23/2022 on 2 L 7.39/52/81 and initiated on home BiPAP 15. Status post COPD exacerbation with intubation
[2023-02-25] MEDS: LEVOTHYROXINE SODIUM 50 MCG TABLET PO (05:59)
[2023-02-25] MEDS: FLUTICASONE/UMECLIDIN/VILANTER 100-62.5-25 MCG ELLIPTA 1 PUFF INHALATION (08:58)
--- NOTE | 2023-02-25 09:40 | P.PNIM_ITS ---
Progress Note: A&P Assessment and Plan (1) Shortness of Breath: Code(s): R06.02 - Shortness of breath Status: Acute (2) COPD exacerbation: Code(s): J44.1 - Chronic obstructive pulmonary disease with (acute) exacerbation Status: Acute (3) Elevated troponin: Code(s): R77.8 - Other specified abnormalities of plasma proteins Status: Acute (4) Hypokalemia: Code(s): E87.6 - Hypokalemia Status: Acute Plan Plan of Care 1. SOB * CXR impression 1. No acute cardiopulmonary abnormality. * Viral PCR * Nebs -> increased from q.6 to Q4, 1 continuous given * hold home home albuterol inhaler, transition to after patient no longer requires scheduled nebs * SoluMedrol Q6H * Cardiac monitoring * VS Q2H * TYL PRN for pain Possible due to COPD exacerbation 2. COPD Exacerbation, acute on chronic respiratory failure with hypoxemia and hypercapnia * Scheduled nebs - albuterol and Atrovent Q6HRT, * Continue methylprednisolone IV * Reported compliance to medication, no issues with filling medication * Baseline O2 requirement - 2L nasal cannula * Currently patient is on BiPAP and high-flow oxygen alternatively * Consult treasury manager for evaluation treatment 3. Elevated troponin * Trend troponin: <0.012 -> 0.067 -> 0.057, EKG shows sinus rhythm no specific ST T wave changes, * CT shows moderate of coronary artery calcification * Repeat EKG impression * Echo Comp - due to positive troponin and shortness of breath, BNP 401. Acute reveals left ventricle normal EF 75 %, grade 1 diastolic dysfunction * CTA PE Protocol - negative for PE * Start aspirin 325 mg once 81 mg daily p.o. * consult tools developer for evaluation treatment 4. Hypokalemia * Initial K 3.3 * KCL 40 p.o. given in ED -> continue 40 p.o. b.i.d. * trend chemistry, * Corrected * Chronic Conditions - RLS: Continue home medication - ropinirole - HTN: Continue home medication - valsartan, amlodipine, ASA 81. Monitor blood pressure. - HLD: Continue home medication - atorvastatin - Hypothyroidism: Continue home medication - levothyroxine - Supplements: Continue home Calcium Diet: Heart healthy GI Prophylaxis: Not indicated at this time DVT Prophylaxis: SCDs, Lovenox 40 Lines: pIV Code Status: Full Code Subjective Date/time seen: 02/25/23 09:40 Interval history: I saw and examined patient today. Patient feels better, but still has si gnificant shortness of breath. Patient is BiPAP on and off during the day. Patient has cough with scant phlegm Exam Narrative: GENERAL: some respiratory distress. Well-nourished. - EYES: EOMI. Anicteric. - HENT: Moist mucous membranes. - LUNGS: Decreased air entry bilaterall y, tachypnea - CARDIOVASCULAR: Regular rate and rhyth m. No murmur. No JVD. - ABDOMEN: Soft, non-tender and non-dist ended. No palpable masses. - EXTREMITIES: No edema. Peripheral puls es 2+. Non-tender. - NEUROLOGIC: No focal neurological defi cits. CN II-XII grossly intact. - PSYCHIATRIC: Awake, Alert and oriented x 3. Appropriate mood and affect. - SKIN: No rashes or lesions. Warm.
--- NOTE | 2023-02-25 09:40 | PM.IMPN ---
Progress Note: A&P Assessment and Plan (1) Shortness of Breath: Code(s): R06.02 - Shortness of breath Status: Acute (2) COPD exacerbation: Code(s): J44.1 - Chronic obstructive pulmonary disease with (acute) exacerbation Status: Acute (3) Elevated troponin: Code(s): R77.8 - Other specified abnormalities of plasma proteins Status: Acute (4) Hypokalemia: Code(s): E87.6 - Hypokalemia Status: Acute Plan Plan of Care 1. SOB CXR impression 1. No acute cardiopulmonary abnormality. Viral PCR Nebs -> increased from q.6 to Q4, 1 continuous given hold home home albuterol inhaler, transition to after patient no longer requires scheduled nebs SoluMedrol Q6H Cardiac monitoring VS Q2H TYL PRN for pain Possible due to COPD exacerbation 2. COPD Exacerbation, acute on chronic respiratory failure with hypoxemia and hypercapnia Scheduled nebs - albuterol and Atrovent Q6HRT, Continue methylprednisolone IV Reported compliance to medication, no issues with filling medication Baseline O2 requirement - 2L nasal cannula Currently patient is on BiPAP and high-flow oxygen alternatively Consult military analyst for evaluation treatment 3. Elevated troponin Trend troponin: <0.012 -> 0.067 -> 0.057, EKG shows sinus rhythm no specific ST T wave changes, CT shows moderate of coronary artery calcification Repeat EKG impression Echo Comp - due to positive troponin and shortness of breath, BNP 401. Acute reveals left ventricle normal EF 75 %, grade 1 diastolic dysfunction CTA PE Protocol - negative for PE Start aspirin 325 mg once 81 mg daily p.o. consult telecommunications clerk for evaluation treatment 4. Hypokalemia Initial K 3.3 KCL 40 p.o. given in ED -> continue 40 p.o. b.i.d. trend chemistry, Corrected Chronic Conditions - RLS: Continue home medication - ropinirole - HTN: Continue home medication - valsartan, amlodipine, ASA 81. Monitor blood pressure. - HLD: Continue home medication - atorvastatin - Hypothyroidism: Continue home medication - levothyroxine - Supplements: Continue home Calcium Diet: Heart healthy GI Prophylaxis: Not indicated at this time DVT Prophylaxis: SCDs, Lovenox 40 Lines: pIV Code Status: Full Code Subjective Date/time seen: 02/25/23 09:40 Interval history: I saw and examined patient today. Patient feels better, but still has significant shortness of breath. Patient is BiPAP on and off during the day. Patient has cough with scant phlegm Exam Narrative: GENERAL: some respiratory distress. Well-nourished. - EYES: EOMI. Anicteric. - HENT: Moist mucous membranes. - LUNGS: Decreased air entry bilaterally, tachypnea - CARDIOVASCULAR: Regular rate and rhythm. No murmur. No JVD. - ABDOMEN: Soft, non-tender and non-distended. No palpable masses. - EXTREMITIES: No edema. Peripheral pulses 2+. Non-tender. - NEUROLOGIC: No focal neurological deficits. CN II-XII grossly intact. - PSYCHIATRIC: Awake, Alert and oriented x 3. Appropriate mood and affect. - SKIN: No rashes or lesions. Warm. - LYMPH: No cervical lymphadenopathy. Objective Data Vital Signs Vital Signs: Vital Signs - 24 hr 02/24/23 09:46 02/24/23 10:00 02/24/23 11:51 Temperature 98.3 F Pulse Rate 86 83 88 Respiratory Rate 20 12 Blood Pressure 146/72 H Pulse Oximetry 98 97 Oxygen Delivery High Flow Therapy with Na Oxygen Flow Rate 60 Fraction of Inspired Oxygen 30 02/24/23 12:00 02/24/23 12:00 02/24/23 14:00 Temperature Pulse Rate 91 89 Respiratory Rate Blood Pressure Pulse Oximetry 96 Oxygen Delivery High Flow Therapy with Na Oxygen Flow Rate 60 Fraction of Inspired Oxygen 30 02/24/23 14:45 02/24/23 14:51 02/24/23 14:59 Temperature Pulse Rate 82 83 83 Respiratory Rate 20 19 21 H Blood Pressure Pulse Oximetry 98 Oxygen Delivery BiPAP Oxygen Flow Rate Fraction of Inspired Oxygen 02/24/23
[2023-02-25] MEDS: CALCIUM CARBONATE (OSCAL) 500 MG TABLET PO ×2 (10:10→17:41)
[2023-02-25] MEDS: ATORVASTATIN 40 MG TABLET PO (10:10)
[2023-02-25] MEDS: POTASSIUM CHLORIDE 20 MEQ ER TABLET 40 MEQ PO ×2 (10:10→17:41)
[2023-02-25] MEDS: ASPIRIN 81 MG CHEWABLE TABLET PO (10:10)
[2023-02-25] MEDS: rOPINIRole HCL 0.25 MG TABLET PO (10:10)
[2023-02-25] MEDS: VALSARTAN 160 MG TABLET PO (10:10)
[2023-02-25] MEDS: ENOXAPARIN 40 MG/0.4 ML SYRINGE SUB-Q (10:10)
[2023-02-25] MEDS: amLODIPine BESYLATE 5 MG TABLET PO (10:11)
[2023-02-25] MEDS: methylPREDNISolone SOD SUCC 125 MG VIAL 40 MG IV PUSH ×3 (12:47→23:54)
[2023-02-25] MEDS: AZITHROMYCIN 500 MG/NS 250 ML 500 MG/250 ML BAG 250 MG IVPB (12:47)
[2023-02-25] MEDS: ONDANSETRON INJ 4 MG/2 ML VIAL IV PUSH (23:54)
[2023-02-26] VITALS (31 sets, daily range): BP systolic 118–148; BP diastolic 50–79; PULSE 63–81; RESP 15–30; TEMP 36.4–36.7; O2SAT 96–100
[2023-02-26] MEDS: IPRATROPIUM BR 0.02% INH SOLN 0.5 MG/2.5 ML VIAL INHALATION ×6 (04:58→23:40)
[2023-02-26] MEDS: ALBUTEROL SULFATE NEB 2.5 MG/3 ML INH INHALATION ×6 (04:58→23:40)
[2023-02-26] MEDS: methylPREDNISolone SOD SUCC 125 MG VIAL 40 MG IV PUSH (05:29)
[2023-02-26] MEDS: LEVOTHYROXINE SODIUM 50 MCG TABLET PO (05:30)
--- NOTE | 2023-02-26 09:04 | PM.PNPUL ---
Progress Note: A&P Assessment and Plan (1) COPD exacerbation: Code(s): J44.1 - Chronic obstructive pulmonary disease with (acute) exacerbation Status: Acute Assessment and Plan: GOLD grade 4 group E COPD Tobacco use 47 PY, quit 10/2018.? 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 PFTs 04/06/2021 with FEV1 0.56 L, 31%, air trapping, hyperinflation, moderately decreased DLCO when corrected for alveolar volume) on 2 L nasal cannula oxygen 17/12, tobacco exposure, severe panlobular emphysema on her CT scan 11/28/20,?finished?pulmonary rehabilitation on 10/21/20. ?ABG 08/23/2022 on 2 L 7. and initiated on home BiPAP 08/10. Status post COPD exacerbation with intubation and failure to wean requiring tracheostomy 12/16/2020. Patient had an acute deterioration after attempting to have a bowel movement and straining. She had no fever, chills, rigors, change in cough, change in phlegm production or change in phlegm color prior to this event. CT angiogram of the chest is negative for PE. COVID, influenza, RSV negative. 02/25 with entered the room the patient was on Airvo 60 L, 32% FiO2 with saturations 98%. She is in mild respiratory distress. Currently she states she is a little better than when she presented but she still gets short of breath when she talks and she has not been out of bed. She denies fever, chills, rigors and no change in her phlegm production which is 1 time a week with clear phlegm. She has no chest pain. Plan: The patient currently has no wheezing and is a little bit improved. I will change her Solu-Medrol from 60 Q 6 to 40 Q 6. I will continue albuterol and ipratropium and increase the frequency from q.6 hours to q.4 hours. There is no focal infiltrate on her CT scan, I will treat her for tracheobronchitis with azithromycin 500 mg IV q.day X1 then 250 Q day X 4. 02/26/23: She said she did get some sleep on this last night. Overall she feels about the same. She states she has maybe a little bit better. She has minimal cough and minimal light colored phlegm. No hemoptysis. When I enter the room she was on Airvo 55 L, 31% FiO2 with saturations 97%. We switched her to nasal cannula and on 2 L her saturations were 98%. No wheezing on exam. Plan: I will decrease Solu-Medrol to 20 mg IV q.6. Continue ipratropium and albuterol nebulizers q.4 hours. Continue azithromycin, day 2. I will add Daliresp 500 mg p.o. q.day. I spoke to the patient about her home medications and she says she has difficulty inhaling with the breztri and eventually I will discharge her on all nebulized medicines. Will follow with you. (2) Respiratory failure with hypoxia and hypercapnia: Code(s): J96.91 - Respiratory failure, unspecified with hypoxia; J96.92 - Respiratory failure, unspecified with hypercapnia Status: Acute Assessment and Plan: Patient with chronic hypoxemic respiratory failure on 2 L nasal cannula at rest, with ambulation and 4 L bleed in at night with her noninvasive ventilator with BiPAP rate 16, 15/5. Patient tells me she has been tolerating the BiPAP at home and her last download 427 through 10/20/2022 demonstrated compliance at 74%, average usage 6 hours and 40 minutes, AHI 2.7 with median leak of 21.6, median tidal volumes were 867 and immediate minute ventilation was 14.1. 02/25/23: 08:00 Airvo 60 L, 32%, sats 98. Plan: I will attempt to obtain a download from her [employer] company, [employer]. In the meantime, I will change the hospital BiPAP to match her home settings as listed above and 40%. Discussed with respiratory and will attempt to wean her Airvo flow down throughout the day today. 02/26/23: Patient wore the hospital BiPAP with a set rate of 16, pressures 15/5 and 40%. She said she did get some sleep on this last night. Says the hospital feels the same as her home machine. When I enter the room she was on Airvo 55 L, 31% FiO2 with saturations 97%.
[2023-02-26] MEDS: CALCIUM CARBONATE (OSCAL) 500 MG TABLET PO (10:44)
[2023-02-26] MEDS: amLODIPine BESYLATE 5 MG TABLET PO (10:44)
[2023-02-26] MEDS: ASPIRIN 81 MG CHEWABLE TABLET PO (10:45)
[2023-02-26] MEDS: rOPINIRole HCL 0.25 MG TABLET PO (10:45)
[2023-02-26] MEDS: POTASSIUM CHLORIDE 20 MEQ ER TABLET 40 MEQ PO (10:45)
[2023-02-26] MEDS: ATORVASTATIN 40 MG TABLET PO (10:45)
[2023-02-26] MEDS: VALSARTAN 160 MG TABLET PO (10:46)
[2023-02-26] MEDS: ENOXAPARIN 40 MG/0.4 ML SYRINGE SUB-Q (10:49)
[2023-02-26] MEDS: ROFLUMILAST 500 MCG TABLET PO (10:49)
[2023-02-26] MEDS: methylPREDNISolone SOD SUCC 40 MG VIAL 20 MG IV PUSH ×3 (12:46→23:24)
[2023-02-26 14:48] LABS: Hemoglobin 11.1 g/dL (12.0-15.0); Mean Corpuscular HGB Conc 30.8 g/dl (32-36); Mean Corpuscular Volume 90.7 fl (80-100); Mean Platelet Volume 10.4 fl (7.4-10.4); Platelet Count Result 482 k/mm3 (150-375); Red Blood Count 3.97 M/mm3 (4.2-5.4); Red Cell Distribution Width 17.1 % (11.5-14.5); White Blood Count 21.7 K/mm3 (4.5-10.0)
[2023-02-26 15:01] LABS: Anion Gap 5 mmol/L (8-16); Blood Urea Nitrogen 29 mg/dL (7-17); Calcium 9.5 mg/dL (8.4-10.2); Carbon Dioxide 32 mmol/L (22-30); Chloride 98 mmol/L (98-107); Estimated CRCL calculation 37 ml/min; Estimated Glomerular Filt Rate > 60; Glucose 213 mg/dL (65-110); Potassium 5.3 mmol/L (3.4-5.0); Sodium 135 mmol/L (137-145)
--- NOTE | 2023-02-26 16:26 | P.PNIM_ITS ---
Progress Note: A&P Assessment and Plan (1) Shortness of Breath: Code(s): R06.02 - Shortness of breath Status: Acute (2) COPD exacerbation: Code(s): J44.1 - Chronic obstructive pulmonary disease with (acute) exacerbation Status: Acute (3) Elevated troponin: Code(s): R77.8 - Other specified abnormalities of plasma proteins Status: Acute (4) Hypokalemia: Code(s): E87.6 - Hypokalemia Status: Acute Plan Plan of Care 1. SOB * CXR impression 1. No acute cardiopulmonary abnormality. Possible due to COPD exacerbation 2. COPD Exacerbation, acute on chronic respiratory failure with hypoxemia and hypercapnia * Scheduled nebs - albuterol and Atrovent Q6HRT, * decrease dose of ov steroids * Reported compliance to medication, no issues with filling medication * Baseline O2 requirement - 2L nasal cannula * Consult music researcher for evaluation treatment 3. Elevated troponin * Trend troponin: <0.012 -> 0.067 -> 0.057, EKG shows sinus rhythm no specific ST T wave changes, * CT shows moderate of coronary artery calcification * Repeat EKG impression * Echo Comp - due to positive troponin and shortness of breath, BNP 401. Acute reveals left ventricle normal EF 75 %, grade 1 diastolic dysfunction * CTA PE Protocol - negative for PE * Start aspirin 325 mg once 81 mg daily p.o. * consult tire spotter for evaluation treatment 4. Hypokalemia * Initial K 3.3 * KCL 40 p.o. given in ED -> continue 40 p.o. b.i.d. * trend chemistry, * Corrected * Chronic Conditions - RLS: Continue home medication - ropinirole - HTN: Continue home medication - valsartan, amlodipine, ASA 81. Monitor blood pressure. - HLD: Continue home medication - atorvastatin - Hypothyroidism: Continue home medication - levothyroxine - Supplements: Continue home Calcium Diet: Heart healthy GI Prophylaxis: Not indicated at this time DVT Prophylaxis: SCDs, Lovenox 40 Lines: pIV Code Status: Full Code Subjective Date/time seen: 02/26/23 16:26 Interval history: 77 y/o F presents here with SOB with PMH of COPD requiring O2 at baseline, [place], former tobacco use, HTN, and hypothyroidism. Pt here with severe copd slowly improving on 2 liters of oxygen. Pt seen by pulmonology continue present care Review of Systems Review of Systems: Sob cough and wheeze Exam Narrative: GENERAL: some respiratory distress. Well-nourished. - EYES: EOMI. Anicteric. - HENT: Moist mucous membranes. - LUNGS: Decreased air entry bilaterall y, tachypnea - CARDIOVASCULAR: Regular rate and rhyth m. No murmur. No JVD. - ABDOMEN: Soft, non-tender and non-dist ended. No palpable masses. - EXTREMITIES: No edema. Peripheral puls es 2+. Non-tender. - NEUROLOGIC: No focal neurological defi cits. CN II-XII grossly intact. - PSYCHIATRIC: Awake, Alert and oriented x 3. Appropriate mood and affect. - SKIN: No rashes or lesions. Warm. - LYMPH: No cervical lymphadenopathy. Objective Data Vital Signs Vital Signs: Vital Signs - 24
--- NOTE | 2023-02-26 16:26 | PM.IMPN ---
Progress Note: A&P Assessment and Plan (1) Shortness of Breath: Code(s): R06.02 - Shortness of breath Status: Acute (2) COPD exacerbation: Code(s): J44.1 - Chronic obstructive pulmonary disease with (acute) exacerbation Status: Acute (3) Elevated troponin: Code(s): R77.8 - Other specified abnormalities of plasma proteins Status: Acute (4) Hypokalemia: Code(s): E87.6 - Hypokalemia Status: Acute Plan Plan of Care 1. SOB CXR impression 1. No acute cardiopulmonary abnormality. Possible due to COPD exacerbation 2. COPD Exacerbation, acute on chronic respiratory failure with hypoxemia and hypercapnia Scheduled nebs - albuterol and Atrovent Q6HRT, decrease dose of ov steroids Reported compliance to medication, no issues with filling medication Baseline O2 requirement - 2L nasal cannula Consult stripper soft plastic for evaluation treatment 3. Elevated troponin Trend troponin: <0.012 -> 0.067 -> 0.057, EKG shows sinus rhythm no specific ST T wave changes, CT shows moderate of coronary artery calcification Repeat EKG impression Echo Comp - due to positive troponin and shortness of breath, BNP 401. Acute reveals left ventricle normal EF 75 %, grade 1 diastolic dysfunction CTA PE Protocol - negative for PE Start aspirin 325 mg once 81 mg daily p.o. consult field auto appraiser for evaluation treatment 4. Hypokalemia Initial K 3.3 KCL 40 p.o. given in ED -> continue 40 p.o. b.i.d. trend chemistry, Corrected Chronic Conditions - RLS: Continue home medication - ropinirole - HTN: Continue home medication - valsartan, amlodipine, ASA 81. Monitor blood pressure. - HLD: Continue home medication - atorvastatin - Hypothyroidism: Continue home medication - levothyroxine - Supplements: Continue home Calcium Diet: Heart healthy GI Prophylaxis: Not indicated at this time DVT Prophylaxis: SCDs, Lovenox 40 Lines: pIV Code Status: Full Code Subjective Date/time seen: 02/26/23 16:26 Interval history: 77 y/o F presents here with SOB with PMH of COPD requiring O2 at baseline, [place], former tobacco use, HTN, and hypothyroidism. Pt here with severe copd slowly improving on 2 liters of oxygen. Pt seen by pulmonology continue present care Review of Systems Review of Systems: Sob cough and wheeze Exam Narrative: GENERAL: some respiratory distress. Well-nourished. - EYES: EOMI. Anicteric. - HENT: Moist mucous membranes. - LUNGS: Decreased air entry bilaterally, tachypnea - CARDIOVASCULAR: Regular rate and rhythm. No murmur. No JVD. - ABDOMEN: Soft, non-tender and non-distended. No palpable masses. - EXTREMITIES: No edema. Peripheral pulses 2+. Non-tender. - NEUROLOGIC: No focal neurological deficits. CN II-XII grossly intact. - PSYCHIATRIC: Awake, Alert and oriented x 3. Appropriate mood and affect. - SKIN: No rashes or lesions. Warm. - LYMPH: No cervical lymphadenopathy. Objective Data Vital Signs Vital Signs: Vital Signs - 24 hr 02/25/23 16:36 02/25/23 16:38 02/25/23 16:39 Temperature Pulse Rate 77 74 74 Respiratory Rate 20 20 Blood Pressure Pulse Oximetry 99 98 Oxygen Delivery High Flow Nasal Cannula Oxygen Flow Rate 55 Fraction of Inspired Oxygen 30 02/25/23 16:51 02/25/23 18:00 02/25/23 20:00 Temperature 37.1 C Pulse Rate 82 74 78 Respiratory Rate 20 28 H Blood Pressure 145/68 H Pulse Oximetry 100 Oxygen Delivery Oxygen Flow Rate Fraction of Inspired Oxygen 02/25/23 20:26 02/25/23 20:28 02/25/23 20:29 Temperature Pulse Rate 65 65 65 Respiratory Rate 16 16 16 Blood Pressure Pulse Oximetry 97 97 Oxygen Delivery BiPAP BiPAP Oxygen Flow Rate Fraction of Inspired Oxygen 40 02/25/23 20:34 02/25/23 20:00 02/25/23 20:00 Temperature Pulse Rate 66 80 Respiratory Rate 16 Blood Pressure Pulse Oximetry 100 Oxygen Delivery BiPAP Oxygen Flow Rate Fracti
[2023-02-26] MEDS: ONDANSETRON INJ 4 MG/2 ML VIAL IV PUSH (20:39)
[2023-02-27] VITALS (25 sets, daily range): BP systolic 91–138; BP diastolic 51–75; PULSE 70–86; RESP 18–22; TEMP 36.1–36.6; O2SAT 95–100
[2023-02-27] MEDS: ONDANSETRON INJ 4 MG/2 ML VIAL IV PUSH ×4 (01:35→21:33)
--- NOTE | 2023-02-27 04:39 | PCRCNOTE ---
Unable to give 0400 updraft treatment to pt due to her feeling nauseous. RN to notify RT when pt wants tx.
[2023-02-27 05:13] LABS: Hematocrit 39.3 % (37.0-47.0); Hemoglobin 11.5 g/dL (12.0-15.0); Mean Corpuscular HGB Conc 29.3 g/dl (32-36); Mean Corpuscular Hemoglobin 28.5 pg (26-34); Mean Corpuscular Volume 97.5 fl (80-100); Mean Platelet Volume 10.8 fl (7.4-10.4); Platelet Count Result 399 k/mm3 (150-375); Red Blood Count 4.03 M/mm3 (4.2-5.4); Red Cell Distribution Width 17.1 % (11.5-14.5); White Blood Count 19.3 K/mm3 (4.5-10.0)
[2023-02-27] MEDS: LEVOTHYROXINE SODIUM 50 MCG TABLET PO (05:54)
[2023-02-27] MEDS: methylPREDNISolone SOD SUCC 40 MG VIAL 20 MG IV PUSH (05:54)
[2023-02-27 06:23] LABS: Anion Gap 8 mmol/L (8-16); Blood Urea Nitrogen 33 mg/dL (7-17); Calcium 9.9 mg/dL (8.4-10.2); Carbon Dioxide 27 mmol/L (22-30); Chloride 99 mmol/L (98-107); Estimated CRCL calculation 40 ml/min; Estimated Glomerular Filt Rate > 60; Glucose 139 mg/dL (65-110); Potassium 5.7 mmol/L (3.4-5.0); Sodium 134 mmol/L (137-145)
--- NOTE | 2023-02-27 08:02 | PC.NURSE ---
Patient c/o nausea, Dr. Lim at bedside. BiPaP removed, patioent placed on 2L NC.
--- NOTE | 2023-02-27 08:48 | PM.PNPUL ---
Progress Note: A&P Assessment and Plan (1) COPD exacerbation: Code(s): J44.1 - Chronic obstructive pulmonary disease with (acute) exacerbation Status: Acute Assessment and Plan: GOLD grade 4 group E COPD Tobacco use 47 PY, quit 10/2018.? 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 PFTs 04/06/2021 with FEV1 0.56 L, 31%, air trapping, hyperinflation, moderately decreased DLCO when corrected for alveolar volume) on 2 L nasal cannula oxygen 17/12, tobacco exposure, severe panlobular emphysema on her CT scan 11/28/20,?finished?pulmonary rehabilitation on 10/21/20. ?ABG 08/23/2022 on 2 L 7. and initiated on home BiPAP 08/10. Status post COPD exacerbation with intubation and failure to wean requiring tracheostomy 12/16/2020. Patient had an acute deterioration after attempting to have a bowel movement and straining. She had no fever, chills, rigors, change in cough, change in phlegm production or change in phlegm color prior to this event. CT angiogram of the chest is negative for PE. COVID, influenza, RSV negative. 02/25 with entered the room the patient was on Airvo 60 L, 32% FiO2 with saturations 98%. She is in mild respiratory distress. Currently she states she is a little better than when she presented but she still gets short of breath when she talks and she has not been out of bed. She denies fever, chills, rigors and no change in her phlegm production which is 1 time a week with clear phlegm. She has no chest pain. Plan: The patient currently has no wheezing and is a little bit improved. I will change her Solu-Medrol from 60 Q 6 to 40 Q 6. I will continue albuterol and ipratropium and increase the frequency from q.6 hours to q.4 hours. There is no focal infiltrate on her CT scan, I will treat her for tracheobronchitis with azithromycin 500 mg IV q.day X1 then 250 Q day X 4. 02/26/23: She said she did get some sleep on this last night. Overall she feels about the same. She states she has maybe a little bit better. She has minimal cough and minimal light colored phlegm. No hemoptysis. When I enter the room she was on Airvo 55 L, 31% FiO2 with saturations 97%. We switched her to nasal cannula and on 2 L her saturations were 98%. No wheezing on exam. Plan: I will decrease Solu-Medrol to 20 mg IV q.6. Continue ipratropium and albuterol nebulizers q.4 hours. Continue azithromycin, day 2. I will add Daliresp 500 mg p.o. q.day. I spoke to the patient about her home medications and she says she has difficulty inhaling with the breztri and eventually I will discharge her on all nebulized medicines. 02/27 patient states that her breathing has improved but her current nausea and vomiting or making it worse. She has minimal mucus and minimal cough. She is afebrile. White blood cell count 19.3, creatinine 0.9. Currently she is on 2 L nasal cannula saturations 98%. Plan: Patient has received a total of 5 days of steroids and I will discontinue. I will continue albuterol and ipratropium nebulizers q.4 hours and add budesonide nebulizers b.i.d.. Continue azithromycin day 3. Her nausea is worse today and I will discontinue Daliresp. Goal saturation 90-94% and patient is back to her baseline of 2 L. wean as tolerated. Discussed with Dr. Gorman. will follow with you. (2) Respiratory failure with hypoxia and hypercapnia: Code(s): J96.91 - Respiratory failure, unspecified with hypoxia; J96.92 - Respiratory failure, unspecified with hypercapnia Status: Acute Assessment and Plan: Patient with chronic hypoxemic respiratory failure on 2 L nasal cannula at rest, with ambulation and 4 L bleed in at night with her noninvasive ventilator with BiPAP rate 16, 15/5. Patient tells me she has been tolerating the BiPAP at home and her last download 427 through 10/20/2022 demonstrated compliance at 74%, average usage 6 hours and 40 minutes, AHI 2.7 with median leak of 21.6, median tidal volum
--- NOTE | 2023-02-27 09:30 | PC.NURSE ---
Patient continues to c/o nausea, AM medication held at this time.
[2023-02-27] MEDS: ENOXAPARIN 40 MG/0.4 ML SYRINGE SUB-Q (12:25)
[2023-02-27] MEDS: POTASSIUM CHLORIDE 20 MEQ ER TABLET 40 MEQ PO (12:25)
[2023-02-27] MEDS: rOPINIRole HCL 0.25 MG TABLET PO (12:27)
[2023-02-27] MEDS: CALCIUM CARBONATE (OSCAL) 500 MG TABLET PO (12:28)
[2023-02-27] MEDS: ASPIRIN 81 MG ENTERIC TABLET PO (12:28)
[2023-02-27] MEDS: ATORVASTATIN 40 MG TABLET PO (12:28)
[2023-02-27] MEDS: amLODIPine BESYLATE 5 MG TABLET PO (12:29)
[2023-02-27] MEDS: VALSARTAN 160 MG TABLET PO (12:33)
[2023-02-27] MEDS: ALBUTEROL SULFATE NEB 2.5 MG/3 ML INH INHALATION ×2 (13:02→20:10)
[2023-02-27] MEDS: IPRATROPIUM BR 0.02% INH SOLN 0.5 MG/2.5 ML VIAL INHALATION ×2 (13:03→20:10)
--- NOTE | 2023-02-27 13:58 | P.PNIM_ITS ---
Progress Note: A&P Assessment and Plan (1) Shortness of Breath: Code(s): R06.02 - Shortness of breath Status: Acute (2) COPD exacerbation: Code(s): J44.1 - Chronic obstructive pulmonary disease with (acute) exacerbation Status: Acute (3) Elevated troponin: Code(s): R77.8 - Other specified abnormalities of plasma proteins Status: Acute (4) Hypokalemia: Code(s): E87.6 - Hypokalemia Status: Acute Plan Plan of Care 1. SOB * CXR impression 1. No acute cardiopulmonary abnormality. Possible due to COPD exacerbation 2. COPD Exacerbation, acute on chronic respiratory failure with hypoxemia and hypercapnia * Scheduled nebs - albuterol and Atrovent Q6HRT, * decrease dose of ov steroids * Reported compliance to medication, no issues with filling medication * Baseline O2 requirement - 2L nasal cannula * Consult coagulant dipper for evaluation treatment * dialeresp started think this is causng nausea 3. Elevated troponin * Trend troponin: <0.012 -> 0.067 -> 0.057, EKG shows sinus rhythm no specific ST T wave changes, * CT shows moderate of coronary artery calcification * Repeat EKG impression * Echo Comp - due to positive troponin and shortness of breath, BNP 401. Acute reveals left ventricle normal EF 75 %, grade 1 diastolic dysfunction * CTA PE Protocol - negative for PE * Start aspirin 325 mg once 81 mg daily p.o. * consult crossbow maker for evaluation treatment 4. Hypokalemia * Initial K 3.3 * KCL 40 p.o. given in ED -> continue 40 p.o. b.i.d. * trend chemistry, * Corrected * over corrected lokelm to day Subjective Date/time seen: 02/27/23 13:58 Interval history: 77 y/o F presents here with SOB with PMH of COPD requiring O2 at baseline, [place], former tobacco use, HTN, and hypothyroidism. Pt here with severe copd slowly improving on 2 liters of oxygen. Pt needing BIPAP at night but feels alot of nausea when she wears the mask Pt still very sob at rest chronically ill severe copd Pt seen by pulmonology continue present care Treat nausea symptoms today Review of Systems Review of Systems: SOB Exam Narrative: GENERAL: some respiratory distress. Well-nourished. - EYES: EOMI. Anicteric. - HENT: Moist mucous membranes. - LUNGS: Decreased air entry bilaterall y, tachypnea - CARDIOVASCULAR: Regular rate and rhyth m. No murmur. No JVD. - ABDOMEN: Soft, non-tender and non-dist ended. No palpable masses. - EXTREMITIES: No edema. Peripheral puls es 2+. Non-tender. - NEUROLOGIC: No focal neurological defi cits. CN II-XII grossly intact. - PSYCHIATRIC: Awake, Alert and oriented x 3. Appropriate mood and affect. - SKIN: No rashes or lesions. Warm. - LYMPH: No cervical lymphadenopathy. Objective Data Vital Signs Vital Signs: Vital Signs - 24 hr 02/26/23 15:57 02/26/23 16:00 02/26/23 16:14 Temperature Pulse Rate 76 76 80 Respiratory Rate 18 18 20 Blood Pressure Pulse Oximetry 99 Oxyge
--- NOTE | 2023-02-27 13:58 | PM.IMPN ---
Progress Note: A&P Assessment and Plan (1) Shortness of Breath: Code(s): R06.02 - Shortness of breath Status: Acute (2) COPD exacerbation: Code(s): J44.1 - Chronic obstructive pulmonary disease with (acute) exacerbation Status: Acute (3) Elevated troponin: Code(s): R77.8 - Other specified abnormalities of plasma proteins Status: Acute (4) Hypokalemia: Code(s): E87.6 - Hypokalemia Status: Acute Plan Plan of Care 1. SOB CXR impression 1. No acute cardiopulmonary abnormality. Possible due to COPD exacerbation 2. COPD Exacerbation, acute on chronic respiratory failure with hypoxemia and hypercapnia Scheduled nebs - albuterol and Atrovent Q6HRT, decrease dose of ov steroids Reported compliance to medication, no issues with filling medication Baseline O2 requirement - 2L nasal cannula Consult extrusion technician for evaluation treatment dialeresp started think this is causng nausea 3. Elevated troponin Trend troponin: <0.012 -> 0.067 -> 0.057, EKG shows sinus rhythm no specific ST T wave changes, CT shows moderate of coronary artery calcification Repeat EKG impression Echo Comp - due to positive troponin and shortness of breath, BNP 401. Acute reveals left ventricle normal EF 75 %, grade 1 diastolic dysfunction CTA PE Protocol - negative for PE Start aspirin 325 mg once 81 mg daily p.o. consult hassock maker for evaluation treatment 4. Hypokalemia Initial K 3.3 KCL 40 p.o. given in ED -> continue 40 p.o. b.i.d. trend chemistry, Corrected over corrected lokelm to day Subjective Date/time seen: 02/27/23 13:58 Interval history: 77 y/o F presents here with SOB with PMH of COPD requiring O2 at baseline, [place], former tobacco use, HTN, and hypothyroidism. Pt here with severe copd slowly improving on 2 liters of oxygen. Pt needing BIPAP at night but feels alot of nausea when she wears the mask Pt still very sob at rest chronically ill severe copd Pt seen by pulmonology continue present care Treat nausea symptoms today Review of Systems Review of Systems: SOB Exam Narrative: GENERAL: some respiratory distress. Well-nourished. - EYES: EOMI. Anicteric. - HENT: Moist mucous membranes. - LUNGS: Decreased air entry bilaterally, tachypnea - CARDIOVASCULAR: Regular rate and rhythm. No murmur. No JVD. - ABDOMEN: Soft, non-tender and non-distended. No palpable masses. - EXTREMITIES: No edema. Peripheral pulses 2+. Non-tender. - NEUROLOGIC: No focal neurological deficits. CN II-XII grossly intact. - PSYCHIATRIC: Awake, Alert and oriented x 3. Appropriate mood and affect. - SKIN: No rashes or lesions. Warm. - LYMPH: No cervical lymphadenopathy. Objective Data Vital Signs Vital Signs: Vital Signs - 24 hr 02/26/23 15:57 02/26/23 16:00 02/26/23 16:14 Temperature Pulse Rate 76 76 80 Respiratory Rate 18 18 20 Blood Pressure Pulse Oximetry 99 Oxygen Delivery High Flow Nasal Cannula Oxygen Flow Rate 2 Fraction of Inspired Oxygen 02/26/23 16:10 02/26/23 14:00 02/26/23 16:00 Temperature 36.4 C L Pulse Rate 76 76 71 Respiratory Rate 24 H Blood Pressure 120/66 Pulse Oximetry 100 Oxygen Delivery Oxygen Flow Rate Fraction of Inspired Oxygen 02/26/23 16:00 02/26/23 18:00 02/26/23 19:49 Temperature 36.5 C Pulse Rate 79 72 Respiratory Rate 22 H Blood Pressure 118/65 Pulse Oximetry 100 100 Oxygen Delivery BiPAP Oxygen Flow Rate Fraction of Inspired Oxygen 40 02/26/23 20:00 02/26/23 20:15 02/26/23 20:20 Temperature Pulse Rate 81 77 Respiratory Rate 26 H 20 Blood Pressure Pulse Oximetry 100 Oxygen Delivery BiPAP Oxygen Flow Rate Fraction of Inspired Oxygen 32 02/26/23 20:20 02/26/23 20:00 02/26/23 22:00 Temperature Pulse Rate 75 70 70 Respiratory Rate 21 H Blood Pressure Pulse Oximetry 96 Oxygen Delivery BiPAP Oxygen Flow Rat
[2023-02-27] MEDS: SODIUM ZIRCONIUM CYCLOSILICATE 10 GM POWD.PACK PO (20:02)
[2023-02-27] MEDS: BUDESONIDE RESPULE NEB 0.5 MG/2 ML AMP INHALATION (20:10)
--- NOTE | 2023-02-27 23:30 | PCRCNOTE ---
Pt placed on Apnealink while on home unit with 2 Liter oxygen bleed in
[2023-02-28] VITALS (30 sets, daily range): BP systolic 94–133; BP diastolic 51–116; PULSE 73–114; RESP 16–24; TEMP 35.7–36.5; O2SAT 94–100
[2023-02-28] MEDS: ONDANSETRON INJ 4 MG/2 ML VIAL IV PUSH (02:47)
[2023-02-28 03:27] LABS: Base Excess ABG 7.7 mEq/l (+/-2.0); Fractional Inspired Oxygen 28 %; HCO3 ABG 32.7 mEq/l (22.0-26.0); Oxygen Content ABG 16.5 %vol (16.0-22.0); Oxygen Saturation ABG 94.5 % (95.0-100.0); Oxyhemoglobin 92.8 % THb (90.0-100.0); PCO2 ABG 47.7 mmHg (35.0-45.0); PO2 ABG 69.4 mmHg (80.0-100.0); PO2 FiO2 Ratio Arterial Blood 2.48 %; Site Drawn RIGHT BRACHIAL; Total Hemoglobin 12.6 g/dL (12.0-18.0); pH ABG 7.454 (7.350-7.450)
[2023-02-28 03:28] LABS: Device OTHER DEVICE
--- NOTE | 2023-02-28 03:38 | PCRCNOTE ---
Apnealink and home CPAP removed at 03:24 due to Pt feeling sick.
[2023-02-28] MEDS: LEVOTHYROXINE SODIUM 50 MCG TABLET PO (05:46)
[2023-02-28] MEDS: IPRATROPIUM BR 0.02% INH SOLN 0.5 MG/2.5 ML VIAL INHALATION ×4 (07:48→20:50)
[2023-02-28] MEDS: BUDESONIDE RESPULE NEB 0.5 MG/2 ML AMP INHALATION ×2 (07:48→20:50)
[2023-02-28] MEDS: ALBUTEROL SULFATE NEB 2.5 MG/3 ML INH INHALATION ×4 (07:49→20:50)
--- NOTE | 2023-02-28 09:00 | PM.PNPUL ---
Progress Note: A&P Assessment and Plan (1) COPD exacerbation: Code(s): J44.1 - Chronic obstructive pulmonary disease with (acute) exacerbation Status: Acute Assessment and Plan: GOLD grade 4 group E COPD Tobacco use 47 PY, quit 10/2018.? 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 PFTs 04/06/2021 with FEV1 0.56 L, 31%, air trapping, hyperinflation, moderately decreased DLCO when corrected for alveolar volume) on 2 L nasal cannula oxygen 17/12, tobacco exposure, severe panlobular emphysema on her CT scan 11/28/20,?finished?pulmonary rehabilitation on 10/21/20. ?ABG 08/23/2022 on 2 L 7. and initiated on home BiPAP 08/10. Status post COPD exacerbation with intubation and failure to wean requiring tracheostomy 12/16/2020. Patient had an acute deterioration after attempting to have a bowel movement and straining. She had no fever, chills, rigors, change in cough, change in phlegm production or change in phlegm color prior to this event. CT angiogram of the chest is negative for PE. COVID, influenza, RSV negative. 02/25 with entered the room the patient was on Airvo 60 L, 32% FiO2 with saturations 98%. She is in mild respiratory distress. Currently she states she is a little better than when she presented but she still gets short of breath when she talks and she has not been out of bed. She denies fever, chills, rigors and no change in her phlegm production which is 1 time a week with clear phlegm. She has no chest pain. Plan: The patient currently has no wheezing and is a little bit improved. I will change her Solu-Medrol from 60 Q 6 to 40 Q 6. I will continue albuterol and ipratropium and increase the frequency from q.6 hours to q.4 hours. There is no focal infiltrate on her CT scan, I will treat her for tracheobronchitis with azithromycin 500 mg IV q.day X1 then 250 Q day X 4. 02/26/23: She said she did get some sleep on this last night. Overall she feels about the same. She states she has maybe a little bit better. She has minimal cough and minimal light colored phlegm. No hemoptysis. When I enter the room she was on Airvo 55 L, 31% FiO2 with saturations 97%. We switched her to nasal cannula and on 2 L her saturations were 98%. No wheezing on exam. Plan: I will decrease Solu-Medrol to 20 mg IV q.6. Continue ipratropium and albuterol nebulizers q.4 hours. Continue azithromycin, day 2. I will add Daliresp 500 mg p.o. q.day. I spoke to the patient about her home medications and she says she has difficulty inhaling with the breztri and eventually I will discharge her on all nebulized medicines. 02/27 patient states that her breathing has improved but her current nausea and vomiting or making it worse. She has minimal mucus and minimal cough. She is afebrile. White blood cell count 19.3, creatinine 0.9. Currently she is on 2 L nasal cannula saturations 98%. Plan: Patient has received a total of 5 days of steroids and I will discontinue (given solumedrol 20 at 06:00 this morning). I will continue albuterol and ipratropium nebulizers q.4 hours and add budesonide nebulizers b.i.d.. Continue azithromycin day 3. Her nausea is worse today and I will discontinue Daliresp. Goal saturation 90-94% and patient is back to her baseline of 2 L. wean as tolerated. 02/28 overall the patient stated that she was breathing a little bit better but the nausea makes her breathing worse. When I walked into the room the patient said her nausea was better but she was having shortness of breath. She was on 2 L nasal cannula saturations 100%. She had taken the BiPAP off to take her medicines and requested to be put back on BiPAP. Currently she is wearing her home machine with the hospital BiPAP mask. Currently she states her nausea is better. Plan: Continue home BiPAP with 2 L bleed in p.r.n. during the day and at night. Continue albuterol and ipratropium nebulizers q.4 hours continue budesonide 500 mcg nebuliz
--- NOTE | 2023-02-28 11:27 | PCPTNOTE ---
Attempted PT evaluation, Pt refused. Pt complaining of not needing to have a bowel movement. Therapist encouraged pt up to a commode, but pt became upset/refused. RN aware.
--- NOTE | 2023-02-28 11:35 | PCRCNOTE ---
SPOKE TO [facility] REP MARYANNE. [phone]. SHE STATED THEY WILL BRING PT. A MASK TODAY, IF SHE NEEDS A SECOND MASK SHE WILL HAVE TO PAY FOR IT. THEY ALSO NEED TO RE-QUALIFY HER FOR THE BIPAP MACHINE. SHE IS FAXING OVER AN ORDER AND WILL LET ME KNOW WHAT ALL IS NEEDED FOR RE-QUALIFICATION.
[2023-02-28] MEDS: ENOXAPARIN 40 MG/0.4 ML SYRINGE SUB-Q (13:53)
--- NOTE | 2023-02-28 15:16 | P.PNIM_ITS ---
Progress Note: A&P Assessment and Plan (1) Shortness of Breath: Code(s): R06.02 - Shortness of breath Status: Acute (2) COPD exacerbation: Code(s): J44.1 - Chronic obstructive pulmonary disease with (acute) exacerbation Status: Acute (3) Elevated troponin: Code(s): R77.8 - Other specified abnormalities of plasma proteins Status: Acute (4) Hypokalemia: Code(s): E87.6 - Hypokalemia Status: Acute Plan 1. SOB * CXR impression 1. No acute cardiopulmonary abnormality. Possible due to COPD exacerbation 2. COPD Exacerbation, acute on chronic respiratory failure with hypoxemia and hypercapnia * Scheduled nebs - albuterol and Atrovent Q6HRT, * decrease dose of ov steroids * Reported compliance to medication, no issues with filling medication * Baseline O2 requirement - 2L nasal cannula * Consult hold worker for evaluation treatment * dialeresp started think this is causng nausea 3. Elevated troponin * Trend troponin: <0.012 -> 0.067 -> 0.057, EKG shows sinus rhythm no specific ST T wave changes, * CT shows moderate of coronary artery calcification * Repeat EKG impression * Echo Comp - due to positive troponin and shortness of breath, BNP 401. Acute reveals left ventricle normal EF 75 %, grade 1 diastolic dysfunction * CTA PE Protocol - negative for PE * Start aspirin 325 mg once 81 mg daily p.o. * Cardiology consulted 4. Hypokalemia * Replace and monitor 5. nausea improved today. Continue to monitor. Not a chronic problem likely due to medications here Subjective Date/time seen: 02/28/23 15:17 Interval history: 77 y/o F presents here with SOB with PMH of COPD requiring O2 at baseline, [place], former tobacco use, HTN, and hypothyroidism. Presented with shortness of breath initially needing Airvo chest x-ray negative CTA negative for PE. To treat for COPD exacerbation Pt here with severe copd slowly improving on 2 liters of oxygen. Pt needing BIPAP at night but feels a lot of nausea when she wears the mask Pt still very sob at rest chronically ill severe copd Discussed with pulmonary Labs reviewed Echo with EF normal no valvular abnormality Remains on steroid azithromycin Exam Narrative: GENERAL: some respiratory distress. Well-nourished. - EYES: EOMI. Anicteric. - HENT: Moist mucous membranes. - LUNGS: Decreased air entry bilaterall y, tachypnea - CARDIOVASCULAR: Regular rate and rhyth m. No murmur. No JVD. - ABDOMEN: Soft, non-tender and non-dist ended. No palpable masses. - EXTREMITIES: No edema. Peripheral puls es 2+. Non-tender. - NEUROLOGIC: No focal neurological defi cits. CN II-XII grossly intact. - PSYCHIATRIC: Awake, Alert and oriented x 3. Appropriate mood and affect. - SKIN: No rashes or lesions. Warm. - LYMPH: No cervical lymphadenopathy. Objective Data Vital Signs Vital Signs: Vital Signs - 24 hr 02/27/23 16:00 02/27/23 16:00 02/27/23 16:00 Temperature 97.4 F L Pulse Rate 80 75 Respiratory Rate 21 H Blood Pressure 127/51 L Pulse O
--- NOTE | 2023-02-28 15:16 | PM.IMPN ---
Progress Note: A&P Assessment and Plan (1) Shortness of Breath: Code(s): R06.02 - Shortness of breath Status: Acute (2) COPD exacerbation: Code(s): J44.1 - Chronic obstructive pulmonary disease with (acute) exacerbation Status: Acute (3) Elevated troponin: Code(s): R77.8 - Other specified abnormalities of plasma proteins Status: Acute (4) Hypokalemia: Code(s): E87.6 - Hypokalemia Status: Acute Plan 1. SOB CXR impression 1. No acute cardiopulmonary abnormality. Possible due to COPD exacerbation 2. COPD Exacerbation, acute on chronic respiratory failure with hypoxemia and hypercapnia Scheduled nebs - albuterol and Atrovent Q6HRT, decrease dose of ov steroids Reported compliance to medication, no issues with filling medication Baseline O2 requirement - 2L nasal cannula Consult golf range attendant for evaluation treatment dialeresp started think this is causng nausea 3. Elevated troponin Trend troponin: <0.012 -> 0.067 -> 0.057, EKG shows sinus rhythm no specific ST T wave changes, CT shows moderate of coronary artery calcification Repeat EKG impression Echo Comp - due to positive troponin and shortness of breath, BNP 401. Acute reveals left ventricle normal EF 75 %, grade 1 diastolic dysfunction CTA PE Protocol - negative for PE Start aspirin 325 mg once 81 mg daily p.o. Cardiology consulted 4. Hypokalemia Replace and monitor 5. nausea improved today. Continue to monitor. Not a chronic problem likely due to medications here Subjective Date/time seen: 02/28/23 15:17 Interval history: 77 y/o F presents here with SOB with PMH of COPD requiring O2 at baseline, [place], former tobacco use, HTN, and hypothyroidism. Presented with shortness of breath initially needing Airvo chest x-ray negative CTA negative for PE. To treat for COPD exacerbation Pt here with severe copd slowly improving on 2 liters of oxygen. Pt needing BIPAP at night but feels a lot of nausea when she wears the mask Pt still very sob at rest chronically ill severe copd Discussed with pulmonary Labs reviewed Echo with EF normal no valvular abnormality Remains on steroid azithromycin Exam Narrative: GENERAL: some respiratory distress. Well-nourished. - EYES: EOMI. Anicteric. - HENT: Moist mucous membranes. - LUNGS: Decreased air entry bilaterally, tachypnea - CARDIOVASCULAR: Regular rate and rhythm. No murmur. No JVD. - ABDOMEN: Soft, non-tender and non-distended. No palpable masses. - EXTREMITIES: No edema. Peripheral pulses 2+. Non-tender. - NEUROLOGIC: No focal neurological deficits. CN II-XII grossly intact. - PSYCHIATRIC: Awake, Alert and oriented x 3. Appropriate mood and affect. - SKIN: No rashes or lesions. Warm. - LYMPH: No cervical lymphadenopathy. Objective Data Vital Signs Vital Signs: Vital Signs - 24 hr 02/27/23 16:00 02/27/23 16:00 02/27/23 16:00 Temperature 97.4 F L Pulse Rate 80 75 Respiratory Rate 21 H Blood Pressure 127/51 L Pulse Oximetry 98 98 Oxygen Delivery Nasal Cannula Oxygen Flow Rate 2 Fraction of Inspired Oxygen 02/27/23 18:00 02/27/23 20:13 02/27/23 20:14 Temperature Pulse Rate 86 84 78 Respiratory Rate 20 20 Blood Pressure Pulse Oximetry 100 Oxygen Delivery BiPAP Oxygen Flow Rate Fraction of Inspired Oxygen 28 02/27/23 20:15 02/27/23 20:00 02/27/23 20:00 Temperature 97.0 F L Pulse Rate 84 Respiratory Rate 20 18 Blood Pressure 127/70 Pulse Oximetry 100 99 99 Oxygen Delivery BiPAP BiPAP Oxygen Flow Rate 2 Fraction of Inspired Oxygen 02/27/23 20:00 02/27/23 22:00 02/27/23 23:28 Temperature Pulse Rate 82 72 Respiratory Rate Blood Pressure Pulse Oximetry 97 Oxygen Delivery Autopap Oxygen Flow Rate Fraction of Inspired Oxygen 02/27/23 23:45 02/28/23 00:00 02/28/23 00:00 Temperature 97.8 F Pulse Rate 82 77 Respiratory Rate 20 Blood Press
[2023-02-28] MEDS: rOPINIRole HCL 0.25 MG TABLET PO (17:35)
[2023-02-28] MEDS: ASPIRIN 81 MG ENTERIC TABLET PO (17:35)
[2023-02-28] MEDS: CALCIUM CARBONATE (OSCAL) 500 MG TABLET PO ×2 (17:35→17:46)
[2023-02-28] MEDS: ATORVASTATIN 40 MG TABLET PO (17:35)
[2023-02-28] MEDS: predniSONE 20 MG TABLET 40 MG PO (17:36)
[2023-02-28] MEDS: methylPREDNISolone SOD SUCC 40 MG VIAL IV PUSH ×2 (17:50→23:02)
[2023-02-28] MEDS: ACETAMINOPHEN 325 MG TABLET 650 MG PO (23:40)
[2023-03-01] VITALS (35 sets, daily range): BP systolic 110–130; BP diastolic 43–101; PULSE 75–103; RESP 18–24; TEMP 35.8–36.6; O2SAT 93–100
[2023-03-01] MEDS: ALBUTEROL SULFATE NEB 2.5 MG/3 ML INH INHALATION ×6 (00:54→23:50)
[2023-03-01] MEDS: IPRATROPIUM BR 0.02% INH SOLN 0.5 MG/2.5 ML VIAL INHALATION ×6 (00:54→23:50)
[2023-03-01 05:02] LABS: Basophils Percent Auto 0.1 % (0.2-1.2); Hematocrit 36.3 % (37.0-47.0); Hemoglobin 11.6 g/dL (12.0-15.0); Immature Granulocyte Absolute 0.09 K/mm3 (0.00-0.031); Immature Granulocyte Percent A 0.5 % (0-0.5); Lymphocytes Absolute Auto 0.89 K/mm3 (0.9-3.2); Lymphocytes Percent Auto 5.2 % (18.3-44.2); Mean Corpuscular Volume 87.7 fl (80-100); Mean Platelet Volume 10.8 fl (7.4-10.4); Monocytes Absolute Auto 0.2 K/mm3 (0.1-0.6); Monocytes Percent Auto 1.2 % (2.6-8.5); Neutrophils Absolute Auto 15.9 K/mm3 (1.3-6.7); Platelet Count Result 494 k/mm3 (150-375); Red Blood Count 4.14 M/mm3 (4.2-5.4); Red Cell Distribution Width 16.1 % (11.5-14.5); White Blood Count 17.1 K/mm3 (4.5-10.0)
[2023-03-01 05:14] LABS: Alanine Aminotransferase 30 U/L (6-35); Albumin Level 3.9 g/dL (3.5-5.1); Alkaline Phosphatase 80 U/L (38-126); Anion Gap 8 mmol/L (8-16); Aspartate Amino Transferase 26 U/L (14-36); Bilirubin,Total 0.6 mg/dL (0.2-1.3); Blood Urea Nitrogen 42 mg/dL (7-17); Calcium 8.7 mg/dL (8.4-10.2); Carbon Dioxide 31 mmol/L (22-30); Chloride 95 mmol/L (98-107); Estimated CRCL calculation 28 ml/min; Estimated Glomerular Filt Rate 48; Glucose 173 mg/dL (65-110); Magnesium 2.3 mg/dL (1.6-2.3); Potassium 4.2 mmol/L (3.4-5.0); Sodium 134 mmol/L (137-145)
[2023-03-01] MEDS: methylPREDNISolone SOD SUCC 40 MG VIAL IV PUSH (05:21)
[2023-03-01] MEDS: LEVOTHYROXINE SODIUM 50 MCG TABLET PO (05:21)
[2023-03-01 05:34] LABS: Platelet Clumps Present; Platelet Estimate Increased (Adequate)
[2023-03-01 05:35] LABS: Giant Platelets Present; Poikilocytosis 1+ (NORMAL)
[2023-03-01 05:36] LABS: Helmet Cells 1+ (NORMAL); Schistocytes Rare (NORMAL)
--- NOTE | 2023-03-01 06:36 | PCRCNOTE ---
Window of time for administration has passed. See next scheduled administration.
[2023-03-01 07:39] LABS: NT Pro B Type Natriuretic Pept 350 pg/mL (19.9-100)
[2023-03-01] MEDS: BUDESONIDE RESPULE NEB 0.5 MG/2 ML AMP INHALATION ×2 (07:50→19:48)
[2023-03-01 08:07] LABS: Free T4 Free Thyroxine 1.44 ng/mL (0.78-2.19)
--- NOTE | 2023-03-01 08:38 | PM.PNPUL ---
Progress Note: A&P Assessment and Plan (1) COPD exacerbation: Code(s): J44.1 - Chronic obstructive pulmonary disease with (acute) exacerbation Status: Acute Assessment and Plan: GOLD grade 4 group E COPD Tobacco use 47 PY, quit 10/2018.? 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 PFTs 04/06/2021 with FEV1 0.56 L, 31%, air trapping, hyperinflation, moderately decreased DLCO when corrected for alveolar volume) on 2 L nasal cannula oxygen 17/12, tobacco exposure, severe panlobular emphysema on her CT scan 11/28/20,?finished?pulmonary rehabilitation on 10/21/20. ?ABG 08/23/2022 on 2 L 7. and initiated on home BiPAP 08/10. Status post COPD exacerbation with intubation and failure to wean requiring tracheostomy 12/16/2020. Patient had an acute deterioration after attempting to have a bowel movement and straining. She had no fever, chills, rigors, change in cough, change in phlegm production or change in phlegm color prior to this event. CT angiogram of the chest is negative for PE. COVID, influenza, RSV negative. 02/25 with entered the room the patient was on Airvo 60 L, 32% FiO2 with saturations 98%. She is in mild respiratory distress. Currently she states she is a little better than when she presented but she still gets short of breath when she talks and she has not been out of bed. She denies fever, chills, rigors and no change in her phlegm production which is 1 time a week with clear phlegm. She has no chest pain. Plan: The patient currently has no wheezing and is a little bit improved. I will change her Solu-Medrol from 60 Q 6 to 40 Q 6. I will continue albuterol and ipratropium and increase the frequency from q.6 hours to q.4 hours. There is no focal infiltrate on her CT scan, I will treat her for tracheobronchitis with azithromycin 500 mg IV q.day X1 then 250 Q day X 4. 02/26/23: She said she did get some sleep on this last night. Overall she feels about the same. She states she has maybe a little bit better. She has minimal cough and minimal light colored phlegm. No hemoptysis. When I enter the room she was on Airvo 55 L, 31% FiO2 with saturations 97%. We switched her to nasal cannula and on 2 L her saturations were 98%. No wheezing on exam. Plan: I will decrease Solu-Medrol to 20 mg IV q.6. Continue ipratropium and albuterol nebulizers q.4 hours. Continue azithromycin, day 2. I will add Daliresp 500 mg p.o. q.day. I spoke to the patient about her home medications and she says she has difficulty inhaling with the breztri and eventually I will discharge her on all nebulized medicines. 02/27 patient states that her breathing has improved but her current nausea and vomiting or making it worse. She has minimal mucus and minimal cough. She is afebrile. White blood cell count 19.3, creatinine 0.9. Currently she is on 2 L nasal cannula saturations 98%. Plan: Patient has received a total of 5 days of steroids and I will discontinue (given solumedrol 20 at 06:00 this morning). I will continue albuterol and ipratropium nebulizers q.4 hours and add budesonide nebulizers b.i.d.. Continue azithromycin day 3. Her nausea is worse today and I will discontinue Daliresp. Goal saturation 90-94% and patient is back to her baseline of 2 L. wean as tolerated. 02/28 overall the patient stated that she was breathing a little bit better but the nausea makes her breathing worse. When I walked into the room the patient said her nausea was better but she was having shortness of breath. She was on 2 L nasal cannula saturations 100%. She had taken the BiPAP off to take her medicines and requested to be put back on BiPAP. Currently she is wearing her home machine with the hospital BiPAP mask. Currently she states her nausea is better. Patient wore her home BiPAP on and off throughout the day. Patient had a bowel movement said she felt much better after this. Plan: Continue home BiPAP with 2 L bleed i
--- NOTE | 2023-03-01 09:46 | PCPTNOTE ---
Attempted to see for physical therapy evaluation, pt refused stating she needs her meds first and she is also to tired. Will continue to follow.
[2023-03-01] MEDS: polyethylene glycoL 3350 17 GM POWD.PACK PO (10:03)
[2023-03-01] MEDS: ENOXAPARIN 40 MG/0.4 ML SYRINGE SUB-Q (10:03)
[2023-03-01] MEDS: ATORVASTATIN 40 MG TABLET PO (10:04)
[2023-03-01] MEDS: ASPIRIN 81 MG ENTERIC TABLET PO (10:04)
[2023-03-01] MEDS: amLODIPine BESYLATE 5 MG TABLET PO (10:05)
[2023-03-01] MEDS: rOPINIRole HCL 0.25 MG TABLET PO (10:05)
[2023-03-01] MEDS: VALSARTAN 160 MG TABLET PO (10:05)
[2023-03-01] MEDS: CALCIUM CARBONATE (OSCAL) 500 MG TABLET PO ×2 (10:05→17:37)
--- NOTE | 2023-03-01 11:58 | PCOTNOTE ---
Attempted to see pt. for occupational therapy evaluation. Per Hospitalist, Dr. Rosa, HOLD pt. for therapy services for today due to shortness of breath at rest. Nursing aware. Following.
[2023-03-01] MEDS: methylPREDNISolone SOD SUCC 40 MG VIAL 20 MG IV PUSH ×3 (12:43→23:45)
--- NOTE | 2023-03-01 13:29 | P.PNIM_ITS ---
Progress Note: A&P Assessment and Plan (1) Shortness of Breath: Code(s): R06.02 - Shortness of breath Status: Acute (2) COPD exacerbation: Code(s): J44.1 - Chronic obstructive pulmonary disease with (acute) exacerbation Status: Acute (3) Elevated troponin: Code(s): R77.8 - Other specified abnormalities of plasma proteins Status: Acute (4) Hypokalemia: Code(s): E87.6 - Hypokalemia Status: Acute Plan 1. SOB * CXR impression 1. No acute cardiopulmonary abnormality. Possible due to COPD exacerbation 2. COPD Exacerbation, acute on chronic respiratory failure with hypoxemia and hypercapnia * Scheduled nebs - albuterol and Atrovent Q6HRT, * decrease dose of ov steroids * Reported compliance to medication, no issues with filling medication * Baseline O2 requirement - 2L nasal cannula * Consult point of sale associate for evaluation treatment * dialeresp started think this is causng nausea History of COPD exacerbation needing intubation and failure to wean requiring tracheostomy and 11/2020 BiPAP 15/5 started on 07/2022 with ABG 7.39/52/81 Remains on IV steroid. Patient back on home BiPAP with 2 L blood in. BNP has improved. Finish his azithromycin course. 3. Elevated troponin * Trend troponin: <0.012 -> 0.067 -> 0.057, EKG shows sinus rhythm no specific ST T wave changes, * CT shows moderate of coronary artery calcification * Repeat EKG impression * Echo Comp - due to positive troponin and shortness of breath, BNP 401. Acute reveals left ventricle normal EF 75 %, grade 1 diastolic dysfunction * CTA PE Protocol - negative for PE * Start aspirin 325 mg once 81 mg daily p.o. * Cardiology consulted 4. Hypokalemia * Replace and monitor 5. nausea improved today. Continue to monitor. Not a chronic problem likely due to medications here Subjective Date/time seen: 03/01/23 13:29 Interval history: 77 y/o F presents here with SOB with PMH of COPD requiring O2 at baseline, [place], former tobacco use, HTN, and hypothyroidism. Presented with shortness of breath initially needing Airvo chest x-ray negative CTA negative for PE. To treat for COPD exacerbation Pt here with severe copd slowly improving on 2 liters of oxygen. Pt needing BIPAP at night but feels a lot of nausea when she wears the mask Pt still very sob at rest chronically ill severe copd Discussed with pulmonary Labs reviewed Echo with EF normal no valvular abnormality Remains on steroid azithromycin 03/01/2023: No overnight events. Intermittent shortness of breath persists. Discussed with Pulmonary. Finishes azithromycin today. Chest x-ray with COPD. On 2 L nasal cannula back on IV steroid per Pulmonary. Review of Systems Review of Systems: All systems reviewed & are unremarkable except as noted in HPI and below Exam Narrative: GENERAL: some respiratory distress. Well-nourished. - EYES: EOMI. Anicteric. - HENT: Moist mucous membranes. - LUNGS: Decreased air entry bilaterall y, mildly tachypneic - CARDIOVASCULAR: Regular rate and rhyth m. No murmur. No JVD. - ABDOMEN: Soft, non-tender and non-dist ended. No palpable masses. - EXTREMITIES: No edema. Peripheral puls es 2+. Non-tender. - NEUROLOGIC: No focal neurological defi ci
--- NOTE | 2023-03-01 13:29 | PM.IMPN ---
Progress Note: A&P Assessment and Plan (1) Shortness of Breath: Code(s): R06.02 - Shortness of breath Status: Acute (2) COPD exacerbation: Code(s): J44.1 - Chronic obstructive pulmonary disease with (acute) exacerbation Status: Acute (3) Elevated troponin: Code(s): R77.8 - Other specified abnormalities of plasma proteins Status: Acute (4) Hypokalemia: Code(s): E87.6 - Hypokalemia Status: Acute Plan 1. SOB CXR impression 1. No acute cardiopulmonary abnormality. Possible due to COPD exacerbation 2. COPD Exacerbation, acute on chronic respiratory failure with hypoxemia and hypercapnia Scheduled nebs - albuterol and Atrovent Q6HRT, decrease dose of ov steroids Reported compliance to medication, no issues with filling medication Baseline O2 requirement - 2L nasal cannula Consult manager action for evaluation treatment dialeresp started think this is causng nausea History of COPD exacerbation needing intubation and failure to wean requiring tracheostomy and 11/2020 BiPAP 15/5 started on 07/2022 with ABG 7.39/52/81 Remains on IV steroid. Patient back on home BiPAP with 2 L blood in. BNP has improved. Finish his azithromycin course. 3. Elevated troponin Trend troponin: <0.012 -> 0.067 -> 0.057, EKG shows sinus rhythm no specific ST T wave changes, CT shows moderate of coronary artery calcification Repeat EKG impression Echo Comp - due to positive troponin and shortness of breath, BNP 401. Acute reveals left ventricle normal EF 75 %, grade 1 diastolic dysfunction CTA PE Protocol - negative for PE Start aspirin 325 mg once 81 mg daily p.o. Cardiology consulted 4. Hypokalemia Replace and monitor 5. nausea improved today. Continue to monitor. Not a chronic problem likely due to medications here Subjective Date/time seen: 03/01/23 13:29 Interval history: 77 y/o F presents here with SOB with PMH of COPD requiring O2 at baseline, [place], former tobacco use, HTN, and hypothyroidism. Presented with shortness of breath initially needing Airvo chest x-ray negative CTA negative for PE. To treat for COPD exacerbation Pt here with severe copd slowly improving on 2 liters of oxygen. Pt needing BIPAP at night but feels a lot of nausea when she wears the mask Pt still very sob at rest chronically ill severe copd Discussed with pulmonary Labs reviewed Echo with EF normal no valvular abnormality Remains on steroid azithromycin 03/01/2023: No overnight events. Intermittent shortness of breath persists. Discussed with Pulmonary. Finishes azithromycin today. Chest x-ray with COPD. On 2 L nasal cannula back on IV steroid per Pulmonary. Review of Systems Review of Systems: All systems reviewed & are unremarkable except as noted in HPI and below Exam Narrative: GENERAL: some respiratory distress. Well-nourished. - EYES: EOMI. Anicteric. - HENT: Moist mucous membranes. - LUNGS: Decreased air entry bilaterally, mildly tachypneic - CARDIOVASCULAR: Regular rate and rhythm. No murmur. No JVD. - ABDOMEN: Soft, non-tender and non-distended. No palpable masses. - EXTREMITIES: No edema. Peripheral pulses 2+. Non-tender. - NEUROLOGIC: No focal neurological deficits. CN II-XII grossly intact. - PSYCHIATRIC: Awake, Alert and oriented x 3. Appropriate mood and affect. - SKIN: No rashes or lesions. Warm. - LYMPH: No cervical lymphadenopathy. Objective Data Vital Signs Vital Signs: Vital Signs - 24 hr 02/28/23 14:00 02/28/23 15:51 02/28/23 16:05 Temperature Pulse Rate 81 79 84 Respiratory Rate 20 20 Blood Pressure Pulse Oximetry Oxygen Delivery Oxygen Flow Rate 02/28/23 16:07 02/28/23 16:00 02/28/23 19:32 Temperature 96.8 F L 97.4 F L Pulse Rate 83 79 84 Respiratory Rate 22 H 20 Blood Pressure 133/116 H 131/58 L Pulse Oximetry 100 98 Oxygen Delivery Oxygen Flow Rate 02/28/23 20:55 02/28/23 20:56 02/28/23 21:16 Te
--- NOTE | 2023-03-01 13:42 | PCPTNOTE ---
pt refused PT evaluation 1340, reports not feel well, SOB; family member present.
[2023-03-01 16:12] LABS: Alveolar/Arterial O2 Gradient 62.8 mmHg; Base Excess ABG 7.8 mEq/l (+/-2.0); Fractional Inspired Oxygen 28 %; HCO3 ABG 33.2 mEq/l (22.0-26.0); Oxygen Content ABG 16.5 %vol (16.0-22.0); Oxygen Saturation ABG 95.7 % (95.0-100.0); Oxyhemoglobin 94.4 % THb (90.0-100.0); PCO2 ABG 50.3 mmHg (35.0-45.0); PO2 ABG 77.5 mmHg (80.0-100.0); PO2 FiO2 Ratio Arterial Blood 2.77 %; Total Hemoglobin 12.4 g/dL (12.0-18.0); pH ABG 7.438 (7.350-7.450)
[2023-03-01 16:13] LABS: Device NASAL CANNULA; Modified Allen's Test Pass; Site Drawn RIGHT RADIAL
[2023-03-01 19:29] LABS: Influenza A QL RT-PCR Negative (Negative); Influenza B QL RT-PCR Negative (Negative); RSV RNA, RT-PCR Negative (Negative); SARS-CoV-2 RNA PCR Negative (Negative)
[2023-03-02] VITALS (26 sets, daily range): BP systolic 91–113; BP diastolic 42–54; PULSE 74–84; RESP 18–20; TEMP 36.1–36.4; O2SAT 93–99
[2023-03-02] MEDS: ONDANSETRON INJ 4 MG/2 ML VIAL IV PUSH ×2 (01:01→17:20)
[2023-03-02 05:26] LABS: Basophils Percent Auto 0.1 % (0.2-1.2); Hematocrit 33.3 % (37.0-47.0); Hemoglobin 10.8 g/dL (12.0-15.0); Immature Granulocyte Absolute 0.17 K/mm3 (0.00-0.031); Immature Granulocyte Percent A 0.7 % (0-0.5); Lymphocytes Absolute Auto 1.29 K/mm3 (0.9-3.2); Lymphocytes Percent Auto 5.1 % (18.3-44.2); Mean Corpuscular HGB Conc 32.4 g/dl (32-36); Mean Corpuscular Hemoglobin 28.6 pg (26-34); Mean Corpuscular Volume 88.3 fl (80-100); Mean Platelet Volume 11.2 fl (7.4-10.4); Monocytes Absolute Auto 1.2 K/mm3 (0.1-0.6); Monocytes Percent Auto 4.8 % (2.6-8.5); Neutrophils Absolute Auto 22.7 K/mm3 (1.3-6.7); Neutrophils Percent Auto 89.3 % (45.5-73.1); Platelet Count Result 493 k/mm3 (150-375); Red Blood Count 3.77 M/mm3 (4.2-5.4); Red Cell Distribution Width 16.5 % (11.5-14.5); White Blood Count 25.4 K/mm3 (4.5-10.0)
[2023-03-02 05:36] LABS: Alanine Aminotransferase 25 U/L (6-35); Albumin Level 3.5 g/dL (3.5-5.1); Alkaline Phosphatase 69 U/L (38-126); Anion Gap 4 mmol/L (8-16); Aspartate Amino Transferase 23 U/L (14-36); Bilirubin,Total 0.5 mg/dL (0.2-1.3); Blood Urea Nitrogen 54 mg/dL (7-17); Calcium 8.7 mg/dL (8.4-10.2); Carbon Dioxide 33 mmol/L (22-30); Chloride 97 mmol/L (98-107); Estimated CRCL calculation 27 ml/min; Estimated Glomerular Filt Rate 44; Glucose 165 mg/dL (65-110); Magnesium 2.5 mg/dL (1.6-2.3); Potassium 4.6 mmol/L (3.4-5.0); Sodium 134 mmol/L (137-145)
[2023-03-02] MEDS: methylPREDNISolone SOD SUCC 40 MG VIAL 20 MG IV PUSH ×2 (05:57→12:30)
[2023-03-02] MEDS: LEVOTHYROXINE SODIUM 50 MCG TABLET PO (05:58)
[2023-03-02] MEDS: amLODIPine BESYLATE 5 MG TABLET PO (10:15)
[2023-03-02] MEDS: CALCIUM CARBONATE (OSCAL) 500 MG TABLET PO (10:15)
[2023-03-02] MEDS: rOPINIRole HCL 0.25 MG TABLET PO (10:15)
[2023-03-02] MEDS: VALSARTAN 160 MG TABLET PO (10:15)
[2023-03-02] MEDS: ENOXAPARIN 40 MG/0.4 ML SYRINGE SUB-Q (10:15)
[2023-03-02] MEDS: ATORVASTATIN 40 MG TABLET PO (10:15)
[2023-03-02] MEDS: ASPIRIN 81 MG ENTERIC TABLET PO (10:15)
[2023-03-02] MEDS: ALBUTEROL SULFATE NEB 2.5 MG/3 ML INH INHALATION ×3 (10:53→20:40)
[2023-03-02] MEDS: BUDESONIDE RESPULE NEB 0.5 MG/2 ML AMP INHALATION ×2 (10:53→20:40)
[2023-03-02] MEDS: IPRATROPIUM BR 0.02% INH SOLN 0.5 MG/2.5 ML VIAL INHALATION ×3 (10:53→20:40)
--- NOTE | 2023-03-02 12:57 | PM.IMPN ---
Progress Note: A&P Assessment and Plan (1) Shortness of Breath: Code(s): R06.02 - Shortness of breath Status: Acute (2) COPD exacerbation: Code(s): J44.1 - Chronic obstructive pulmonary disease with (acute) exacerbation Status: Acute (3) Elevated troponin: Code(s): R77.8 - Other specified abnormalities of plasma proteins Status: Acute (4) Hypokalemia: Code(s): E87.6 - Hypokalemia Status: Acute Plan 1. SOB CXR impression 1. No acute cardiopulmonary abnormality. Possible due to COPD exacerbation 2. COPD Exacerbation, acute on chronic respiratory failure with hypoxemia and hypercapnia Scheduled nebs - albuterol and Atrovent Q6HRT, decrease dose of ov steroids Reported compliance to medication, no issues with filling medication Baseline O2 requirement - 2L nasal cannula Consult marquetry worker for evaluation treatment dialeresp started think this is causng nausea History of COPD exacerbation needing intubation and failure to wean requiring tracheostomy and 11/2020 BiPAP 15/5 started on 07/2022 with ABG 7.39/52/81 Remains on IV steroid. Patient back on home BiPAP with 2 L blood in at night. BNP has improved. Finished azithromycin course. ABG with pCO2 of 50 Will hold off on BiPAP at night tonight and recheck ABG in a.m. 3. Elevated troponin Trend troponin: <0.012 -> 0.067 -> 0.057, EKG shows sinus rhythm no specific ST T wave changes, CT shows moderate of coronary artery calcification Repeat EKG impression Echo Comp - due to positive troponin and shortness of breath, BNP 401. Acute reveals left ventricle normal EF 75 %, grade 1 diastolic dysfunction CTA PE Protocol - negative for PE Start aspirin 325 mg once 81 mg daily p.o. Cardiology consulted 4. Hypokalemia Replace and monitor 5. nausea improved Continue to monitor. Not a chronic problem likely due to medications here Subjective Date/time seen: 03/02/23 12:57 Interval history: 77 y/o F presents here with SOB with PMH of COPD requiring O2 at baseline, [place], former tobacco use, HTN, and hypothyroidism. Presented with shortness of breath initially needing Airvo chest x-ray negative CTA negative for PE. To treat for COPD exacerbation Pt here with severe copd slowly improving on 2 liters of oxygen. Pt needing BIPAP at night but feels a lot of nausea when she wears the mask Pt still very sob at rest chronically ill severe copd Discussed with pulmonary Labs reviewed Echo with EF normal no valvular abnormality Remains on steroid azithromycin 03/01/2023: No overnight events. Intermittent shortness of breath persists. Discussed with Pulmonary. Finishes azithromycin today. Chest x-ray with COPD. On 2 L nasal cannula back on IV steroid per Pulmonary. 03/02/2023: Use BiPAP only for few hours last night. Fell nauseated with it. Oxygen requirement fairly the same. ABG at 4:00 p.m. with pCO2 50 Review of Systems Review of Systems: All systems reviewed & are unremarkable except as noted in HPI and below Exam Narrative: GENERAL: some respiratory distress. Well-nourished. - EYES: EOMI. Anicteric. - HENT: Moist mucous membranes. - LUNGS: Decreased air entry bilaterally, mildly tachypneic - CARDIOVASCULAR: Regular rate and rhythm. No murmur. No JVD. - ABDOMEN: Soft, non-tender and non-distended. No palpable masses. - EXTREMITIES: No edema. Peripheral pulses 2+. Non-tender. - NEUROLOGIC: No focal neurological deficits. CN II-XII grossly intact. - PSYCHIATRIC: Awake, Alert and oriented x 3. Appropriate mood and affect. - SKIN: No rashes or lesions. Warm. - LYMPH: No cervical lymphadenopathy. Objective Data Vital Signs Vital Signs: Vital Signs - 24 hr 03/01/23 14:00 03/01/23 16:09 03/01/23 16:17 Temperature 96.4 F L Pulse Rate 89 85 88 Respiratory Rate 24 H 20 Blood Pressure 111/43 L Pulse Oximetry 98 Pulse Oximetry [With Activity During Therapy Session] Oxygen Delivery
--- NOTE | 2023-03-02 16:58 | PM.PNPUL ---
Progress Note: A&P Assessment and Plan (1) Respiratory failure with hypoxia and hypercapnia: Code(s): J96.91 - Respiratory failure, unspecified with hypoxia; J96.92 - Respiratory failure, unspecified with hypercapnia Status: Acute (2) Acute exacerbation of chronic obstructive pulmonary disease: Code(s): J44.1 - Chronic obstructive pulmonary disease with (acute) exacerbation Status: Acute Assessment and Plan: This 77-year-old female has had severe COPD with evidence of emphysema severe lung hyperinflation on chest CT. She has been treated for COPD exacerbation with some improvement. The patient has been on BiPAP support during this hospital stay. Has not been using BiPAP because of vomiting. Etiology of vomiting unclear question related to elevated creatinine. On last arterial blood gases pH was 7.42 and pCO2 was approximately 50 mmHg. On physical exam she has distant breath sounds but no wheezing. Plan: Have switched patient to oral prednisone starting in a.m., try BIPAP with lower IPAP given the severe emphysema. Monitor creatinine. (3) History of tobacco use: Code(s): Z87.891 - Personal history of nicotine dependence Status: Acute Subjective Date/time seen: 03/02/23 16:58 Interval history: 77-year-old female with advanced COPD, severe emphysema with evidence of hyperinflation and severely reduced lung function has been treated for COPD exacerbation. Patient did not use BiPAP support last night because of vomiting. Overall she is doing better her on a complain is vomiting. She has no cough wheezing. Her shortness of breath is better. Review of Systems Review of Systems: All systems reviewed & are unremarkable except as noted in HPI and below (HPI) Exam Narrative: GENERAL APPEARANCE: Well developed, well nourished, alert and cooperative, and appears to be in mild respiratory distress while on supplemental oxygen sitting up in bed SKIN: Inspection of the skin reveals no rashes, ulcerations or petechiae. HEENT: Sclerae anicteric and conjunctivae pink and moist. Extraocular movements were intact and pupils were equal. NECK: Supple. There was no thyroid enlargement, and no tenderness, or masses were felt. CHEST: Increased AP diameter and normal contour without any kyphoscoliosis. LUNGS: Distant breath sounds bilaterally no wheezing CARDIAC: There was a regular rate and rhythm without any murmurs, gallops, rubs. ABDOMEN: Soft and nontender with normal bowel sounds. There was no organomegaly. LYMPH NODES: No lymphadenopathy was appreciated in the neck. EXTREMITIES: No cyanosis, clubbing or edema. NEUROLOGIC: Alert and oriented x 3. Normal affect. Objective Data Vital Signs Vital Signs: Vital Signs - 24 hr 03/01/23 18:00 03/01/23 19:48 03/01/23 19:51 Temperature Pulse Rate 92 90 Respiratory Rate 20 Blood Pressure Pulse Oximetry 99 Pulse Oximetry [With Activity During Therapy Session] Oxygen Delivery Nasal Cannula Oxygen Flow Rate 2 Fraction of Inspired Oxygen 03/01/23 19:54 03/01/23 19:57 03/01/23 20:08 Temperature 36.3 C L Pulse Rate 90 103 H 103 H Respiratory Rate 18 20 Blood Pressure 117/56 L Pulse Oximetry 99 98 Pulse Oximetry [With Activity During Therapy Session] Oxygen Delivery Autopap Oxygen Flow Rate Fraction of Inspired Oxygen 03/01/23 20:00 03/01/23 20:00 03/01/23 22:00 Temperature Pulse Rate 96 97 102 H Respiratory Rate 20 Blood Pressure Pulse Oximetry 93 Pulse Oximetry [With Activity During Therapy Session] Oxygen Delivery Autopap Oxygen Flow Rate Fraction of Inspired Oxygen 28 03/01/23 23:38 03/01/23 23:50 03/01/23 23:57 Temperature 36.3 C L Pulse Rate 87 86 82 Respiratory Rate 18 20 20 Blood Pressure 110/52 L Pulse Oximetry 93 Pulse Oximetry [With Activity During Therapy Session] Oxygen Delivery Oxygen Flow Rate Fraction of Inspired Oxygen 03/02
[2023-03-03] VITALS (30 sets, daily range): BP systolic 83–138; BP diastolic 34–53; PULSE 68–92; RESP 16–24; TEMP 36.3–36.8; O2SAT 94–100
[2023-03-03] MEDS: ALBUTEROL SULFATE NEB 2.5 MG/3 ML INH INHALATION ×5 (01:09→19:35)
[2023-03-03] MEDS: IPRATROPIUM BR 0.02% INH SOLN 0.5 MG/2.5 ML VIAL INHALATION ×5 (01:10→19:35)
[2023-03-03 05:00] LABS: Basophils Percent Auto 0.1 % (0.2-1.2); Hematocrit 31.5 % (37.0-47.0); Hemoglobin 10.2 g/dL (12.0-15.0); Immature Granulocyte Absolute 0.19 K/mm3 (0.00-0.031); Immature Granulocyte Percent A 0.8 % (0-0.5); Lymphocytes Percent Auto 6.8 % (18.3-44.2); Mean Corpuscular HGB Conc 32.4 g/dl (32-36); Mean Corpuscular Hemoglobin 28.7 pg (26-34); Mean Corpuscular Volume 88.5 fl (80-100); Mean Platelet Volume 11.1 fl (7.4-10.4); Monocytes Absolute Auto 2.1 K/mm3 (0.1-0.6); Monocytes Percent Auto 8.6 % (2.6-8.5); Neutrophils Absolute Auto 20.8 K/mm3 (1.3-6.7); Neutrophils Percent Auto 83.7 % (45.5-73.1); Platelet Count Result 433 k/mm3 (150-375); Red Blood Count 3.56 M/mm3 (4.2-5.4); Red Cell Distribution Width 16.3 % (11.5-14.5); White Blood Count 24.9 K/mm3 (4.5-10.0)
[2023-03-03 05:13] LABS: Alanine Aminotransferase 24 U/L (6-35); Albumin Level 3.3 g/dL (3.5-5.1); Alkaline Phosphatase 65 U/L (38-126); Anion Gap 3 mmol/L (8-16); Aspartate Amino Transferase 24 U/L (14-36); Bilirubin,Total 0.5 mg/dL (0.2-1.3); Blood Urea Nitrogen 47 mg/dL (7-17); Calcium 8.8 mg/dL (8.4-10.2); Carbon Dioxide 35 mmol/L (22-30); Chloride 97 mmol/L (98-107); Estimated CRCL calculation 28 ml/min; Estimated Glomerular Filt Rate 48; Glucose 138 mg/dL (65-110); Magnesium 2.6 mg/dL (1.6-2.3); Potassium 4.4 mmol/L (3.4-5.0); Sodium 135 mmol/L (137-145)
[2023-03-03 05:17] LABS: Alveolar/Arterial O2 Gradient 47.5 mmHg; Base Excess ABG 8.5 mEq/l (+/-2.0); Carboxyhemoglobin 0.2 % THb (0-2.0); Fractional Inspired Oxygen 28 %; HCO3 ABG 33.9 mEq/l (22.0-26.0); Methemoglobin ABG 0.3 %THb (0-1.5); Oxygen Content ABG 14.9 %vol (16.0-22.0); Oxygen Saturation ABG 97.3 % (95.0-100.0); Oxyhemoglobin 95.5 % THb (90.0-100.0); PCO2 ABG 50.4 mmHg (35.0-45.0); PO2 ABG 92.7 mmHg (80.0-100.0); PO2 FiO2 Ratio Arterial Blood 3.31 %; pH ABG 7.445 (7.350-7.450)
[2023-03-03 05:18] LABS: Device NASAL CANNULA; Modified Allen's Test Pass; Site Drawn RIGHT RADIAL
[2023-03-03 05:32] LABS: Anisocytosis 1+ (NORMAL); Platelet Estimate Increased (Adequate)
[2023-03-03 05:33] LABS: Helmet Cells 1+ (NORMAL); Schistocytes None Seen (NORMAL)
[2023-03-03] MEDS: LEVOTHYROXINE SODIUM 50 MCG TABLET PO (06:17)
[2023-03-03] MEDS: rOPINIRole HCL 0.25 MG TABLET PO (09:38)
[2023-03-03] MEDS: CALCIUM CARBONATE (OSCAL) 500 MG TABLET PO (09:38)
[2023-03-03] MEDS: amLODIPine BESYLATE 5 MG TABLET PO (09:38)
[2023-03-03] MEDS: VALSARTAN 160 MG TABLET PO (09:38)
[2023-03-03] MEDS: ASPIRIN 81 MG ENTERIC TABLET PO (09:38)
[2023-03-03] MEDS: ATORVASTATIN 40 MG TABLET PO (09:38)
[2023-03-03] MEDS: predniSONE 20 MG, predniSONE 10 MG 30 MG PO (09:38)
[2023-03-03] MEDS: ENOXAPARIN 30 MG/0.3 ML SYRINGE SUB-Q (09:38)
--- NOTE | 2023-03-03 09:55 | PCPTNOTE ---
Attempted to see patient for PT, however patient refused. Patient reported she was waiting on a breathing treatment and wanted to wait to do therapy after breathing treatment.
[2023-03-03] MEDS: BUDESONIDE RESPULE NEB 0.5 MG/2 ML AMP INHALATION ×2 (10:45→19:35)
--- NOTE | 2023-03-03 11:38 | PCOTNOTE ---
Pt is currently with PT for physical therapy treatment. Will attempt at a later time today.
--- NOTE | 2023-03-03 12:33 | P.PNIM_ITS ---
Progress Note: A&P Assessment and Plan (1) Shortness of Breath: Code(s): R06.02 - Shortness of breath Status: Acute (2) COPD exacerbation: Code(s): J44.1 - Chronic obstructive pulmonary disease with (acute) exacerbation Status: Acute (3) Elevated troponin: Code(s): R77.8 - Other specified abnormalities of plasma proteins Status: Acute (4) Hypokalemia: Code(s): E87.6 - Hypokalemia Status: Acute Plan 1. SOB * CXR impression 1. No acute cardiopulmonary abnormality. Possible due to COPD exacerbation 2. COPD Exacerbation, acute on chronic respiratory failure with hypoxemia and hypercapnia * Scheduled nebs - albuterol and Atrovent Q6HRT, * decrease dose of ov steroids * Reported compliance to medication, no issues with filling medication * Baseline O2 requirement - 2L nasal cannula * Consult finisher card tender for evaluation treatment * dialeresp started think this is causng nausea History of COPD exacerbation needing intubation and failure to wean requiring tracheostomy and 11/2020 BiPAP 15/5 started on 07/2022 with ABG 7.39/52/81 Remains on IV steroid. Patient back on home BiPAP with 2 L blood in at night. BNP has improved. Finished azithromycin course. ABG with pCO2 of 50 Will hold off on BiPAP at night tonight and recheck ABG with pCO2 50. Monitor off BiPAP Switch IV Solu-Medrol to oral 3. Elevated troponin * Trend troponin: <0.012 -> 0.067 -> 0.057, EKG shows sinus rhythm no specific ST T wave changes, * CT shows moderate of coronary artery calcification * Repeat EKG impression * Echo Comp - due to positive troponin and shortness of breath, BNP 401. Acute reveals left ventricle normal EF 75 %, grade 1 diastolic dysfunction * CTA PE Protocol - negative for PE * Start aspirin 325 mg once 81 mg daily p.o. * Cardiology consulted 4. Hypokalemia * Replace and monitor 5. nausea improved Continue to monitor. Not a chronic problem likely due to medications here Subjective Date/time seen: 03/03/23 12:33 Interval history: Feels a bit better today. Did not use BiPAP last night. ABG reviewed. Review of Systems Review of Systems: All systems reviewed & are unremarkable except as noted in HPI and below Exam Narrative: GENERAL: No respiratory distress well-nourished. - EYES: EOMI. Anicteric. - HENT: Moist mucous membranes. - LUNGS: Decreased air entry bilaterall y, mildly tachypneic no wheezes - CARDIOVASCULAR: Regular rate and rhyth m. No murmur. No JVD. - ABDOMEN: Soft, non-tender and non-dist ended. No palpable masses. - EXTREMITIES: No edema. Peripheral puls es 2+. Non-tender. - NEUROLOGIC: No focal neurological defi cits. CN II-XII grossly intact. - PSYCHIATRIC: Awake, Alert and oriented x 3. Appropriate mood and affect. - SKIN: No rashes or lesions. Warm. - LYMPH: No cervical lymphadenopathy. Objective Data Vital Signs Vital Signs: Vital Signs - 24 hr 03/02/23 12:53 03/02/23 16:07 03/02/23 17:47 Temperature 96.9 F L Pulse Rate 75 77
--- NOTE | 2023-03-03 12:33 | PM.IMPN ---
Progress Note: A&P Assessment and Plan (1) Shortness of Breath: Code(s): R06.02 - Shortness of breath Status: Acute (2) COPD exacerbation: Code(s): J44.1 - Chronic obstructive pulmonary disease with (acute) exacerbation Status: Acute (3) Elevated troponin: Code(s): R77.8 - Other specified abnormalities of plasma proteins Status: Acute (4) Hypokalemia: Code(s): E87.6 - Hypokalemia Status: Acute Plan 1. SOB CXR impression 1. No acute cardiopulmonary abnormality. Possible due to COPD exacerbation 2. COPD Exacerbation, acute on chronic respiratory failure with hypoxemia and hypercapnia Scheduled nebs - albuterol and Atrovent Q6HRT, decrease dose of ov steroids Reported compliance to medication, no issues with filling medication Baseline O2 requirement - 2L nasal cannula Consult land law examiner for evaluation treatment dialeresp started think this is causng nausea History of COPD exacerbation needing intubation and failure to wean requiring tracheostomy and 11/2020 BiPAP 15/5 started on 07/2022 with ABG 7.39/52/81 Remains on IV steroid. Patient back on home BiPAP with 2 L blood in at night. BNP has improved. Finished azithromycin course. ABG with pCO2 of 50 Will hold off on BiPAP at night tonight and recheck ABG with pCO2 50. Monitor off BiPAP Switch IV Solu-Medrol to oral 3. Elevated troponin Trend troponin: <0.012 -> 0.067 -> 0.057, EKG shows sinus rhythm no specific ST T wave changes, CT shows moderate of coronary artery calcification Repeat EKG impression Echo Comp - due to positive troponin and shortness of breath, BNP 401. Acute reveals left ventricle normal EF 75 %, grade 1 diastolic dysfunction CTA PE Protocol - negative for PE Start aspirin 325 mg once 81 mg daily p.o. Cardiology consulted 4. Hypokalemia Replace and monitor 5. nausea improved Continue to monitor. Not a chronic problem likely due to medications here Subjective Date/time seen: 03/03/23 12:33 Interval history: Feels a bit better today. Did not use BiPAP last night. ABG reviewed. Review of Systems Review of Systems: All systems reviewed & are unremarkable except as noted in HPI and below Exam Narrative: GENERAL: No respiratory distress well-nourished. - EYES: EOMI. Anicteric. - HENT: Moist mucous membranes. - LUNGS: Decreased air entry bilaterally, mildly tachypneic no wheezes - CARDIOVASCULAR: Regular rate and rhythm. No murmur. No JVD. - ABDOMEN: Soft, non-tender and non-distended. No palpable masses. - EXTREMITIES: No edema. Peripheral pulses 2+. Non-tender. - NEUROLOGIC: No focal neurological deficits. CN II-XII grossly intact. - PSYCHIATRIC: Awake, Alert and oriented x 3. Appropriate mood and affect. - SKIN: No rashes or lesions. Warm. - LYMPH: No cervical lymphadenopathy. Objective Data Vital Signs Vital Signs: Vital Signs - 24 hr 03/02/23 12:53 03/02/23 16:07 03/02/23 17:47 Temperature 96.9 F L Pulse Rate 75 77 Respiratory Rate 18 20 Blood Pressure 113/46 L Pulse Oximetry 95 98 Pulse Oximetry [With Activity During Therapy Session] Oxygen Delivery Oxygen Flow Rate Fraction of Inspired Oxygen 03/02/23 14:00 03/02/23 16:00 03/02/23 18:00 Temperature Pulse Rate 83 79 80 Respiratory Rate Blood Pressure Pulse Oximetry Pulse Oximetry [With Activity During Therapy Session] Oxygen Delivery Oxygen Flow Rate Fraction of Inspired Oxygen 03/02/23 16:00 03/02/23 20:38 03/02/23 20:40 Temperature 97.5 F L Pulse Rate 77 76 Respiratory Rate 18 20 Blood Pressure 91/54 L Pulse Oximetry 99 99 Pulse Oximetry [With Activity During Therapy Session] Oxygen Delivery Nasal Cannula Oxygen Flow Rate 2 Fraction of Inspired Oxygen 03/02/23 20:44 03/02/23 20:59 03/02/23 20:00 Temperature Pulse Rate 74 74 Respiratory Rate 20 Blood Pressure Pulse Oximetry 97 Pulse Oximetry
--- NOTE | 2023-03-03 16:39 | PM.PNPUL ---
Progress Note: A&P Assessment and Plan (1) Respiratory failure with hypoxia and hypercapnia: Code(s): J96.91 - Respiratory failure, unspecified with hypoxia; J96.92 - Respiratory failure, unspecified with hypercapnia Status: Acute (2) Acute exacerbation of chronic obstructive pulmonary disease: Code(s): J44.1 - Chronic obstructive pulmonary disease with (acute) exacerbation Status: Acute Assessment and Plan: This 77-year-old female has had severe COPD with evidence of emphysema severe lung hyperinflation on chest CT. She has been treated for COPD exacerbation with some improvement. The patient has been on BiPAP support at home using BiPAP pressures 15/5, respiratory rate 16. Patient has not been very compliant with her BiPAP usage. On physical exam she has lung hyperinflation related to severe emphysema. She still on steroids, oral prednisone since yesterday. No further vomiting. Repeat arterial blood gases while patient was not receiving BiPAP support showed hypochloremic metabolic alkalosis. Low chloride probably related to recent vomiting possibly to corticosteroid use as well. Patient appears stable and is willing to go home. Plan: Patient will be started on hospital BiPAP with new settings, i.e. lower pressures, and lower respiratory rate to see if these pressures are more tolerable. She will be on supplemental oxygen at 4 liters/minute i.e. the same FiO2 she uses at home. Will get ApneaLink tonight on the new BiPAP settings and supplemental oxygen 4 liters/minute. (3) History of tobacco use: Code(s): Z87.891 - Personal history of nicotine dependence Status: Acute Subjective Date/time seen: 03/03/23 16:39 Interval history: Patient has no new respiratory symptoms. Did not use BiPAP support last night. No further vomiting. She remains on supplemental oxygen via nasal cannula. Review of Systems Review of Systems: All systems reviewed & are unremarkable except as noted in HPI and below (HPI and below) Exam Narrative: GENERAL APPEARANCE: Well developed, well nourished, alert and cooperative, and appears to be in mild respiratory distress while on supplemental oxygen sitting up in bed SKIN: Inspection of the skin reveals no rashes, ulcerations or petechiae. HEENT: Sclerae anicteric and conjunctivae pink and moist. Extraocular movements were intact and pupils were equal. NECK: Supple. There was no thyroid enlargement, and no tenderness, or masses were felt. CHEST: Increased AP diameter and normal contour without any kyphoscoliosis. LUNGS: Distant breath sounds bilaterally no wheezing CARDIAC: There was a regular rate and rhythm without any murmurs, gallops, rubs. ABDOMEN: Soft and nontender with normal bowel sounds. There was no organomegaly. LYMPH NODES: No lymphadenopathy was appreciated in the neck. EXTREMITIES: No cyanosis, clubbing or edema. NEUROLOGIC: Alert and oriented x 3. Normal affect. Objective Data Vital Signs Vital Signs: Vital Signs - 24 hr 03/02/23 17:47 03/02/23 18:00 03/02/23 20:38 Temperature 36.4 C L Pulse Rate 77 80 77 Respiratory Rate 20 18 Blood Pressure 91/54 L Pulse Oximetry 99 Pulse Oximetry [With Activity During Therapy Session] Oxygen Delivery Oxygen Flow Rate Fraction of Inspired Oxygen 03/02/23 20:40 03/02/23 20:44 03/02/23 20:59 Temperature Pulse Rate 76 74 Respiratory Rate 20 20 Blood Pressure Pulse Oximetry 97 Pulse Oximetry [With Activity During Therapy Session] Oxygen Delivery Nasal Cannula Oxygen Flow Rate 2 Fraction of Inspired Oxygen 03/02/23 20:00 03/02/23 20:00 03/02/23 21:43 Temperature Pulse Rate 74 74 76 Respiratory Rate 20 Blood Pressure Pulse Oximetry 97 Pulse Oximetry [With Activity During Therapy Session] Oxygen Delivery Nasal Cannula Oxygen Flow Rate 2 Fraction of Inspired Oxygen 28 03/02/23 23:29 03/03/23 00:00 03/03/23 00:00 Temp
[2023-03-03] MEDS: ONDANSETRON INJ 4 MG/2 ML VIAL IV PUSH (21:06)
--- NOTE | 2023-03-03 23:13 | PCRCNOTE ---
Pt refused bipap and apnea link this evening. Pt feeling nauseous. RN aware
[2023-03-04] VITALS (18 sets, daily range): BP systolic 86–111; BP diastolic 45–68; PULSE 65–83; RESP 16–20; TEMP 36.1–36.8; O2SAT 98–100; BMI 24.0
[2023-03-04 05:10] LABS: Basophils Percent Auto 0.1 % (0.2-1.2); Eosinophils Percent Auto 0.1 % (0-4.4); Hematocrit 35.8 % (37.0-47.0); Hemoglobin 11.1 g/dL (12.0-15.0); Immature Granulocyte Absolute 0.17 K/mm3 (0.00-0.031); Immature Granulocyte Percent A 0.8 % (0-0.5); Lymphocytes Absolute Auto 2.57 K/mm3 (0.9-3.2); Lymphocytes Percent Auto 11.9 % (18.3-44.2); Mean Corpuscular Hemoglobin 27.9 pg (26-34); Mean Corpuscular Volume 89.9 fl (80-100); Mean Platelet Volume 11.3 fl (7.4-10.4); Monocytes Percent Auto 9.2 % (2.6-8.5); Neutrophils Absolute Auto 16.9 K/mm3 (1.3-6.7); Neutrophils Percent Auto 77.9 % (45.5-73.1); Platelet Count Result 447 k/mm3 (150-375); Red Blood Count 3.98 M/mm3 (4.2-5.4); Red Cell Distribution Width 16.7 % (11.5-14.5); White Blood Count 21.7 K/mm3 (4.5-10.0)
[2023-03-04 05:23] LABS: Alanine Aminotransferase 28 U/L (6-35); Albumin Level 3.6 g/dL (3.5-5.1); Alkaline Phosphatase 65 U/L (38-126); Anion Gap 6 mmol/L (8-16); Aspartate Amino Transferase 26 U/L (14-36); Bilirubin,Total 0.6 mg/dL (0.2-1.3); Blood Urea Nitrogen 40 mg/dL (7-17); Calcium 8.8 mg/dL (8.4-10.2); Carbon Dioxide 35 mmol/L (22-30); Chloride 96 mmol/L (98-107); Estimated CRCL calculation 31 ml/min; Estimated Glomerular Filt Rate 53; Glucose 105 mg/dL (65-110); Magnesium 2.6 mg/dL (1.6-2.3); Potassium 4.3 mmol/L (3.4-5.0); Sodium 137 mmol/L (137-145)
[2023-03-04 05:33] LABS: Platelet Estimate Increased (Adequate)
[2023-03-04 05:34] LABS: Anisocytosis 1+ (NORMAL); Poikilocytosis 1+ (NORMAL); Schistocytes Rare (NORMAL)
[2023-03-04] MEDS: LEVOTHYROXINE SODIUM 50 MCG TABLET PO (05:43)
[2023-03-04] MEDS: CALCIUM CARBONATE (OSCAL) 500 MG TABLET PO ×2 (08:57→16:12)
[2023-03-04] MEDS: ENOXAPARIN 30 MG/0.3 ML SYRINGE SUB-Q (08:57)
[2023-03-04] MEDS: predniSONE 20 MG, predniSONE 10 MG 30 MG PO (08:57)
[2023-03-04] MEDS: ASPIRIN 81 MG ENTERIC TABLET PO (08:57)
[2023-03-04] MEDS: ATORVASTATIN 40 MG TABLET PO (08:58)
[2023-03-04] MEDS: rOPINIRole HCL 0.25 MG TABLET PO (08:58)
[2023-03-04] MEDS: BUDESONIDE RESPULE NEB 0.5 MG/2 ML AMP INHALATION ×2 (09:07→19:51)
[2023-03-04] MEDS: IPRATROPIUM BR 0.02% INH SOLN 0.5 MG/2.5 ML VIAL INHALATION ×3 (09:07→19:51)
[2023-03-04] MEDS: ALBUTEROL SULFATE NEB 2.5 MG/3 ML INH INHALATION ×3 (09:07→19:51)
--- NOTE | 2023-03-04 11:00 | PC.NURSE ---
This patient, Laxmi Colon, was transferred to [facility] on 03/04/23 at 1100. Personal belongings sent with patient. Report given to Ena REINOSO. Appropriate documentation sent with patient.
--- NOTE | 2023-03-04 11:42 | PM.PNPUL ---
Progress Note: A&P Assessment and Plan (1) Respiratory failure with hypoxia and hypercapnia: Code(s): J96.91 - Respiratory failure, unspecified with hypoxia; J96.92 - Respiratory failure, unspecified with hypercapnia Status: Acute (2) Acute exacerbation of chronic obstructive pulmonary disease: Code(s): J44.1 - Chronic obstructive pulmonary disease with (acute) exacerbation Status: Acute Assessment and Plan: This 77-year-old female has had severe COPD with evidence of emphysema severe lung hyperinflation on chest CT. She has been treated for COPD exacerbation with some improvement. The patient has been on BiPAP support at home using BiPAP pressures 15/5, respiratory rate 16. Patient has not been very compliant with her BiPAP usage. On physical exam she has lung hyperinflation related to severe emphysema. She still on steroids, oral prednisone since yesterday. Repeat arterial blood gases while patient was not receiving BiPAP support showed hypochloremic metabolic alkalosis. Low chloride probably related to recent vomiting possibly to corticosteroid use as well. Patient refused BiPAP support with with lower pressures last night. She stated that BIPAP support makes her nauseous Plan: ApneaLink tonight on just supplemental oxygen, titrate oxygen to keep saturation 92% or higher. (3) History of tobacco use: Code(s): Z87.891 - Personal history of nicotine dependence Status: Acute Subjective Date/time seen: 03/04/23 11:42 Interval history: Patient refused the BiPAP support last night because of nausea while on BiPAP. She has no new respiratory symptoms this a.m.. She remains on supplemental oxygen Review of Systems Review of Systems: All systems reviewed & are unremarkable except as noted in HPI and below (HPI and below) Exam Narrative: GENERAL APPEARANCE: Well developed, well nourished, alert and cooperative, and appears to be in mild respiratory distress while on supplemental oxygen sitting up in bed SKIN: Inspection of the skin reveals no rashes, ulcerations or petechiae. HEENT: Sclerae anicteric and conjunctivae pink and moist. Extraocular movements were intact and pupils were equal. NECK: Supple. There was no thyroid enlargement, and no tenderness, or masses were felt. CHEST: Increased AP diameter and normal contour without any kyphoscoliosis. LUNGS: Distant breath sounds bilaterally no wheezing CARDIAC: There was a regular rate and rhythm without any murmurs, gallops, rubs. ABDOMEN: Soft and nontender with normal bowel sounds. There was no organomegaly. LYMPH NODES: No lymphadenopathy was appreciated in the neck. EXTREMITIES: No cyanosis, clubbing or edema. NEUROLOGIC: Alert and oriented x 3. Normal affect. Objective Data Vital Signs Vital Signs: Vital Signs - 24 hr 03/03/23 12:02 03/03/23 12:00 03/03/23 12:00 Temperature 36.3 C L Pulse Rate 92 83 Respiratory Rate 20 Blood Pressure 86/34 L Pulse Oximetry 99 98 Oxygen Delivery Nasal Cannula Oxygen Flow Rate 2 03/03/23 13:44 03/03/23 14:00 03/03/23 16:00 Temperature 36.8 C Pulse Rate 79 73 Respiratory Rate 16 Blood Pressure 104/52 L 83/38 L Pulse Oximetry 100 Oxygen Delivery Oxygen Flow Rate 03/03/23 16:00 03/03/23 16:00 03/03/23 17:15 Temperature Pulse Rate 78 69 Respiratory Rate 18 Blood Pressure Pulse Oximetry 98 Oxygen Delivery Nasal Cannula Oxygen Flow Rate 2 03/03/23 17:31 03/03/23 18:00 03/03/23 19:35 Temperature Pulse Rate 76 75 76 Respiratory Rate 18 18 Blood Pressure Pulse Oximetry Oxygen Delivery Oxygen Flow Rate 03/03/23 19:36 03/03/23 19:45 03/03/23 20:00 Temperature Pulse Rate 76 78 73 Respiratory Rate 18 Blood Pressure Pulse Oximetry 100 Oxygen Delivery Nasal Cannula Oxygen Flow Rate 2 03/03/23 20:00 03/03/23 20:00 03/03/23 22:00 Temperature 36.5 C Pulse Rate 73 73 72 Respirator
--- NOTE | 2023-03-04 13:06 | PCRCNOTE ---
Pt refused 1200 scheduled neb treatment.
--- NOTE | 2023-03-04 13:41 | PC.NURSE ---
Pt arrived to the floor at 1100. Pt is A&O4 female who participates and contributes in plan of care. Pt denies any pain and expresses no needs. Pt is on 2L O2. Pt O2 sat was at 100%. Pt blood pressure reportedly runs low. Pt is a manual blood pressure check due to machines not picking up accurately. Will continue to monitor pt.
[2023-03-04] MEDS: ONDANSETRON INJ 4 MG/2 ML VIAL IV PUSH (14:36)
--- NOTE | 2023-03-04 16:30 | P.PNIM_ITS ---
Progress Note: A&P Assessment and Plan (1) Shortness of Breath: Code(s): R06.02 - Shortness of breath Status: Acute (2) COPD exacerbation: Code(s): J44.1 - Chronic obstructive pulmonary disease with (acute) exacerbation Status: Acute (3) Elevated troponin: Code(s): R77.8 - Other specified abnormalities of plasma proteins Status: Acute (4) Hypokalemia: Code(s): E87.6 - Hypokalemia Status: Acute Plan 1. SOB * CXR impression 1. No acute cardiopulmonary abnormality. Possible due to COPD exacerbation 2. 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 Patient back on home BiPAP with 2 L blood in at night. BNP has improved. Finished azithromycin course. ABG with pCO2 of 50 Will hold off on BiPAP at night tonight and recheck ABG with pCO2 50. Monitor off BiPAP Switch IV Solu-Medrol to oral. Taper BiPAP 3. Elevated troponin * Trend troponin: <0.012 -> 0.067 -> 0.057, EKG shows sinus rhythm no specific ST T wave changes, * CT shows moderate of coronary artery calcification * Repeat EKG impression * Echo Comp - due to positive troponin and shortness of breath, BNP 401. Acute reveals left ventricle normal EF 75 %, grade 1 diastolic dysfunction * CTA PE Protocol - negative for PE * Start aspirin 325 mg once 81 mg daily p.o. * Cardiology consulted 4. Hypokalemia * Replace and monitor 5. nausea improved Continue to monitor. Not a chronic problem likely due to medications here Subjective Date/time seen: 03/04/23 16:30 Interval history: No overnight events. Feeling better. Do not use BiPAP at night. BiPAP makes her nauseous. Breathing is better Review of Systems Review of Systems: All systems reviewed & are unremarkable except as noted in HPI and below Exam Narrative: GENERAL: No respiratory distress well-nourished. - EYES: EOMI. Anicteric. - HENT: Moist mucous membranes. - LUNGS: Decreased air entry bilaterall y, no respiratory distress no wheezes - CARDIOVASCULAR: Regular rate and rhyth m. No murmur. No JVD. - ABDOMEN: Soft, non-tender and non-dist ended. No palpable masses. - EXTREMITIES: No edema. Peripheral puls es 2+. Non-tender. - NEUROLOGIC: No focal neurological defi cits. CN II-XII grossly intact. - PSYCHIATRIC: Awake, Alert and oriented x 3. Appropriate mood and affect. - SKIN: No rashes or lesions. Warm. - LYMPH: No cervical lymphadenopathy. Objective Data Vital Signs Vital Signs: Vital Signs - 24 hr 03/03/23 17:15 03/03/23 17:31 03/03/23 18:00
--- NOTE | 2023-03-04 16:30 | PM.IMPN ---
Progress Note: A&P Assessment and Plan (1) Shortness of Breath: Code(s): R06.02 - Shortness of breath Status: Acute (2) COPD exacerbation: Code(s): J44.1 - Chronic obstructive pulmonary disease with (acute) exacerbation Status: Acute (3) Elevated troponin: Code(s): R77.8 - Other specified abnormalities of plasma proteins Status: Acute (4) Hypokalemia: Code(s): E87.6 - Hypokalemia Status: Acute Plan 1. SOB CXR impression 1. No acute cardiopulmonary abnormality. Possible due to COPD exacerbation 2. COPD Exacerbation, acute on chronic respiratory failure with hypoxemia and hypercapnia Scheduled nebs - albuterol and Atrovent Q6HRT, decrease dose of ov steroids Reported compliance to medication, no issues with filling medication Baseline O2 requirement - 2L nasal cannula Consult software test automation engineer for evaluation treatment dialeresp started think this is causng nausea History of COPD exacerbation needing intubation and failure to wean requiring tracheostomy and 11/2020 BiPAP 15/5 started on 07/2022 with ABG 7.39/52/81 Remains on IV steroid. Patient back on home BiPAP with 2 L blood in at night. BNP has improved. Finished azithromycin course. ABG with pCO2 of 50 Will hold off on BiPAP at night tonight and recheck ABG with pCO2 50. Monitor off BiPAP Switch IV Solu-Medrol to oral. Taper BiPAP 3. Elevated troponin Trend troponin: <0.012 -> 0.067 -> 0.057, EKG shows sinus rhythm no specific ST T wave changes, CT shows moderate of coronary artery calcification Repeat EKG impression Echo Comp - due to positive troponin and shortness of breath, BNP 401. Acute reveals left ventricle normal EF 75 %, grade 1 diastolic dysfunction CTA PE Protocol - negative for PE Start aspirin 325 mg once 81 mg daily p.o. Cardiology consulted 4. Hypokalemia Replace and monitor 5. nausea improved Continue to monitor. Not a chronic problem likely due to medications here Subjective Date/time seen: 03/04/23 16:30 Interval history: No overnight events. Feeling better. Do not use BiPAP at night. BiPAP makes her nauseous. Breathing is better Review of Systems Review of Systems: All systems reviewed & are unremarkable except as noted in HPI and below Exam Narrative: GENERAL: No respiratory distress well-nourished. - EYES: EOMI. Anicteric. - HENT: Moist mucous membranes. - LUNGS: Decreased air entry bilaterally, no respiratory distress no wheezes - CARDIOVASCULAR: Regular rate and rhythm. No murmur. No JVD. - ABDOMEN: Soft, non-tender and non-distended. No palpable masses. - EXTREMITIES: No edema. Peripheral pulses 2+. Non-tender. - NEUROLOGIC: No focal neurological deficits. CN II-XII grossly intact. - PSYCHIATRIC: Awake, Alert and oriented x 3. Appropriate mood and affect. - SKIN: No rashes or lesions. Warm. - LYMPH: No cervical lymphadenopathy. Objective Data Vital Signs Vital Signs: Vital Signs - 24 hr 03/03/23 17:15 03/03/23 17:31 03/03/23 18:00 Temperature Pulse Rate 69 76 75 Respiratory Rate 18 18 Blood Pressure Pulse Oximetry Oxygen Delivery Oxygen Flow Rate 03/03/23 19:35 03/03/23 19:36 03/03/23 19:45 Temperature Pulse Rate 76 76 78 Respiratory Rate 18 18 Blood Pressure Pulse Oximetry 100 Oxygen Delivery Nasal Cannula Oxygen Flow Rate 2 03/03/23 20:00 03/03/23 20:00 03/03/23 20:00 Temperature 97.7 F Pulse Rate 73 73 73 Respiratory Rate 20 20 Blood Pressure 96/41 L Pulse Oximetry 100 100 Oxygen Delivery Nasal Cannula Oxygen Flow Rate 2 03/03/23 22:00 03/03/23 23:33 03/04/23 00:00 Temperature 97.5 F L Pulse Rate 72 74 67 Respiratory Rate 20 Blood Pressure 97/49 L Pulse Oximetry 98 Oxygen Delivery Oxygen Flow Rate 03/04/23 00:00 03/04/23 02:00 03/04/23 04:00 Temperature Pulse Rate 72 65 70 Respiratory Rate Blood Pressure Pulse Oximetry 100 Oxygen
[2023-03-05] VITALS (13 sets, daily range): BP systolic 104; BP diastolic 62; PULSE 72–118; RESP 16–20; TEMP 35.6; O2SAT 87–98
[2023-03-05] MEDS: LEVOTHYROXINE SODIUM 50 MCG TABLET PO (06:29)
[2023-03-05] MEDS: IPRATROPIUM BR 0.02% INH SOLN 0.5 MG/2.5 ML VIAL INHALATION ×2 (07:52→11:53)
[2023-03-05] MEDS: ALBUTEROL SULFATE NEB 2.5 MG/3 ML INH INHALATION ×2 (07:53→11:53)
[2023-03-05] MEDS: BUDESONIDE RESPULE NEB 0.5 MG/2 ML AMP INHALATION (07:53)
--- NOTE | 2023-03-05 08:44 | PM.PNPUL ---
Progress Note: A&P Assessment and Plan (1) Respiratory failure with hypoxia and hypercapnia: Code(s): J96.91 - Respiratory failure, unspecified with hypoxia; J96.92 - Respiratory failure, unspecified with hypercapnia Status: Acute (2) Acute exacerbation of chronic obstructive pulmonary disease: Code(s): J44.1 - Chronic obstructive pulmonary disease with (acute) exacerbation Status: Acute Assessment and Plan: This 77-year-old female has had severe COPD with evidence of emphysema severe lung hyperinflation on chest CT. She has been treated for COPD exacerbation with improvement. Patient is back at baseline. The patient has been on BiPAP support at home using BiPAP pressures 15/5, respiratory rate 16. Patient has not been very compliant with BiPAP usage. On physical exam she has lung hyperinflation related to severe emphysema. She still on steroids, oral prednisone. Repeat arterial blood gases while patient was not receiving BiPAP support showed hypochloremic metabolic alkalosis. Low chloride probably related to recent vomiting possibly to corticosteroid use as well. Patient refused BiPAP support even with lower pressures. She stated that BIPAP support makes her nauseous'\. ApneaLink last night while patient on supplemental oxygen 2 liters/minute showed no evidence of oxyhemoglobin desaturation. The patient stated she sleeps well with just oxygen. Plan: Okay to discharge patient home, she will continue with supplemental oxygen 2 liters/minute at night. She will need home oxygen evaluation regarding supplemental oxygen with rest/activities. She will continue with prednisone 30 mg for 2 days, prednisone 20 mg for another 2 days, then prednisone 10 mg for 2 days, then stop. She will continue with breztri inhaler bid, and nebulized albuterol p.r.n.. The patient will return to pulmonary clinic in approximately 2-3 weeks for follow-up. Will sign off please call with any questions (3) History of tobacco use: Code(s): Z87.891 - Personal history of nicotine dependence Status: Acute Subjective Date/time seen: 03/05/23 08:44 Interval history: Patient has no new respiratory symptoms. Slept well last night while on ApneaLink monitoring. Eager to go home. She does not want to go back on BiPAP support as she gets nauseated Review of Systems Review of Systems: All systems reviewed & are unremarkable except as noted in HPI and below (HPI and below) Exam Narrative: GENERAL APPEARANCE: Well developed, well nourished, alert and cooperative, and appears to be in mild respiratory distress while on supplemental oxygen sitting up in bed SKIN: Inspection of the skin reveals no rashes, ulcerations or petechiae. HEENT: Sclerae anicteric and conjunctivae pink and moist. Extraocular movements were intact and pupils were equal. NECK: Supple. There was no thyroid enlargement, and no tenderness, or masses were felt. CHEST: Increased AP diameter and normal contour without any kyphoscoliosis. LUNGS: Distant breath sounds bilaterally no wheezing CARDIAC: There was a regular rate and rhythm without any murmurs, gallops, rubs. ABDOMEN: Soft and nontender with normal bowel sounds. There was no organomegaly. LYMPH NODES: No lymphadenopathy was appreciated in the neck. EXTREMITIES: No cyanosis, clubbing or edema. NEUROLOGIC: Alert and oriented x 3. Normal affect. Objective Data Vital Signs Vital Signs: Vital Signs - 24 hr 03/04/23 09:08 03/04/23 09:10 03/04/23 09:20 Temperature Pulse Rate 81 81 83 Respiratory Rate 18 18 18 Blood Pressure Pulse Oximetry 99 Oxygen Delivery Nasal Cannula Oxygen Flow Rate 2 03/04/23 11:44 03/04/23 13:05 03/04/23 14:00 Temperature 36.8 C 36.7 C Pulse Rate 72 78 77 Respiratory Rate 16 18 16 Blood Pressure 100/62 98/68 L Pulse Oximetry 100 98 100 Oxygen Delivery Nasal Cannula Oxygen Flow Rate 2 03/04/23 17:37 03/04/23 17:48 03/04/23 19:52 Te
[2023-03-05] MEDS: predniSONE 20 MG, predniSONE 10 MG 30 MG PO (10:20)
[2023-03-05] MEDS: rOPINIRole HCL 0.25 MG TABLET PO (10:21)
[2023-03-05] MEDS: polyethylene glycoL 3350 17 GM POWD.PACK PO (10:21)
[2023-03-05] MEDS: CALCIUM CARBONATE (OSCAL) 500 MG TABLET PO (10:21)
[2023-03-05] MEDS: ATORVASTATIN 40 MG TABLET PO (10:21)
[2023-03-05] MEDS: ASPIRIN 81 MG ENTERIC TABLET PO (10:21)
[2023-03-05] MEDS: ENOXAPARIN 40 MG/0.4 ML SYRINGE SUB-Q (10:21)
--- NOTE | 2023-03-05 11:34 | P.DS_ITS ---
DS: Admitting Diagnosis Discharge Date 03/05/2023 Admitting Diagnosis Shortness of breath DS: Discharge Diagnosis Discharge Diagnosis (1) Shortness of Breath: Code(s): R06.02 - Shortness of breath Status: Acute (2) COPD exacerbation: Code(s): J44.1 - Chronic obstructive pulmonary disease with (acute) exacerbation Status: Acute (3) Elevated troponin: Code(s): R77.8 - Other specified abnormalities of plasma proteins Status: Acute (4) Hypokalemia: Code(s): E87.6 - Hypokalemia Status: Acute DS: Summary Hospital Course Hospital Course: # SOB * CXR impression 1. No acute cardiopulmonary abnormality. Possible due to COPD exacerbation # COPD Exacerbation, acute on chronic respiratory failure with hypoxemia and hypercapnia * Scheduled nebs - albuterol and Atrovent Q6HRT, * Patient was treated with IV steroid. Was initially on BiPAP as well * Reported compliance to medication, no issues with filling medication * Baseline O2 requirement - 2L nasal cannula * Consult asphalt paving foreman for evaluation treatment * dialeresp started think this is causng nausea * BNP improved. * Finish antibiotic course * ABG on repeated assessment with pCO2 50 patient refused BiPAP. Stop BiPAP and monitored ABG while off BiPAP and pCO2 remained 50 * History of COPD exacerbation needing intubation and failure to wean requiring tracheostomy and 11/2020. BiPAP 15/5 started on 07/2022 with ABG 7.39/52/81 * Steroid taper at discharge 3. Elevated troponin * Trend troponin: <0.012 -> 0.067 -> 0.057, EKG shows sinus rhythm no specific ST T wave changes, * CT shows moderate of coronary artery calcification * Repeat EKG impression * Echo Comp - due to positive troponin and shortness of breath, BNP 401.? Acute reveals left ventricle normal EF 75 %, grade 1 diastolic dysfunction * CTA PE Protocol - negative for PE * Start aspirin 325 mg once 81 mg daily p.o. * Cardiology consulted 4. Hypokalemia * Replace and monitor 5. nausea improved Continue to monitor.? Not a chronic problem likely due to medications here Hypertension no his blood pressure valsartan and amlodipine was held and will be discontinued at the time of discharge. Reassess at that PCP visit Time Spent with Patient Time attestation: Total time spent providing and/or coordinating discharge services: 40 minutes Exam Narrative: GENERAL: No respiratory distress well-nourished. - EYES: EOMI. Anicteric. - HENT: Moist mucous membranes. - LUNGS: Decreased air entry bilaterall y, no respiratory distress no wheezes - CARDIOVASCULAR: Regular rate and rhyth m. No murmur. No JVD. - ABDOMEN: Soft, non-tender and non-dist ended. No palpable masses. - EXTREMITIES: No edema. Peripheral puls es 2+. Non-tender. - NEUROLOGIC: No focal neurological defi cits. CN II-XII grossly intact. - PSYCHIATRIC: Awake, Alert and oriented x 3. Appropriate mood and affect. - SKIN: No rashes or lesions. Warm. - LYMPH: No cervical lymphadenopathy. DS: Data Data Completed and Pending Completed studies during hospitalization: Exam Type: ? ? CA echo doppler color flow St
--- NOTE | 2023-03-05 11:34 | PM.DS ---
DS: Admitting Diagnosis Discharge Date 03/05/2023 Admitting Diagnosis Shortness of breath DS: Discharge Diagnosis Discharge Diagnosis (1) Shortness of Breath: Code(s): R06.02 - Shortness of breath Status: Acute (2) COPD exacerbation: Code(s): J44.1 - Chronic obstructive pulmonary disease with (acute) exacerbation Status: Acute (3) Elevated troponin: Code(s): R77.8 - Other specified abnormalities of plasma proteins Status: Acute (4) Hypokalemia: Code(s): E87.6 - Hypokalemia Status: Acute DS: Summary Hospital Course Hospital Course: # SOB CXR impression 1. No acute cardiopulmonary abnormality. Possible due to COPD exacerbation # COPD Exacerbation, acute on chronic respiratory failure with hypoxemia and hypercapnia Scheduled nebs - albuterol and Atrovent Q6HRT, Patient was treated with IV steroid. 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 Finish antibiotic course ABG on repeated assessment with pCO2 50 patient refused BiPAP. Stop BiPAP and monitored ABG while off BiPAP and pCO2 remained 50 History of COPD exacerbation needing intubation and failure to wean requiring tracheostomy and 11/2020. BiPAP 15/5 started on 07/2022 with ABG 7.39/52/81 Steroid taper at discharge 3. Elevated troponin Trend troponin: <0.012 -> 0.067 -> 0.057, EKG shows sinus rhythm no specific ST T wave changes, CT shows moderate of coronary artery calcification Repeat EKG impression Echo Comp - due to positive troponin and shortness of breath, BNP 401.? Acute reveals left ventricle normal EF 75 %, grade 1 diastolic dysfunction CTA PE Protocol - negative for PE Start aspirin 325 mg once 81 mg daily p.o. Cardiology consulted 4. Hypokalemia Replace and monitor 5. nausea improved Continue to monitor.? Not a chronic problem likely due to medications here Hypertension no his blood pressure valsartan and amlodipine was held and will be discontinued at the time of discharge. Reassess at that PCP visit Time Spent with Patient Time attestation: Total time spent providing and/or coordinating discharge services: 40 minutes Exam Narrative: GENERAL: No respiratory distress well-nourished. - EYES: EOMI. Anicteric. - HENT: Moist mucous membranes. - LUNGS: Decreased air entry bilaterally, no respiratory distress no wheezes - CARDIOVASCULAR: Regular rate and rhythm. No murmur. No JVD. - ABDOMEN: Soft, non-tender and non-distended. No palpable masses. - EXTREMITIES: No edema. Peripheral pulses 2+. Non-tender. - NEUROLOGIC: No focal neurological deficits. CN II-XII grossly intact. - PSYCHIATRIC: Awake, Alert and oriented x 3. Appropriate mood and affect. - SKIN: No rashes or lesions. Warm. - LYMPH: No cervical lymphadenopathy. DS: Data Data Completed and Pending Completed studies during hospitalization: Exam Type: ? ? CA echo doppler color flow Study Info Indications ?? ? - elevated trop, bnp elevated ? ? R06.09 - Other forms of dyspnea Complete two-dimensional, color flow and Doppler transthoracic echocardiogram is performed. Account #: ? ? [id number] Summary ? 1. Complete two-dimensional, color flow and Doppler transthoracic echocardiogram is performed. ? 2. Normal left ventricular size with vigorous, hyperdynamic contractility and no ischemic wall motion abnormality. ? 3. Mildly sclerotic aortic valve. ? 4. Mildly calcified mitral valve annulus. Left Ventricle ? Left ventricular chamber dimension is normal. ? Left ventricular systolic function is hyperdynamic, estimated at >70%. ? The left ventricular diastolic function is grade I diastolic dysfunction. Right Ventricle ? Right ventricular chamber dimension is normal. Right Atria ? Right atrial c
--- NOTE | 2023-03-05 11:44 | PCRCNOTE ---
PT TO DISCHARGE TO SNF, [facility]. SHE WILL TAKE HER HOME BIPAP UNIT AND O2 NEEDS WILL BE TITRATED NEEDED VIA [facility] LONG TERM STAFF, HOME O2 EVAL IS NOT NEEDED. CURRENTLY WEARING 2L.
--- NOTE | 2023-03-05 13:50 | PCRCNOTE ---
HOME O2 EVAL DONE, PT REQUIRES 2 L REST AND 3 L WITH ACTIVITY. HAS AHP. NO CHANGES FROM CURRENT HOME O2 SETTINGS. STATED I WOULD NOTE FOR HER THAT SHE WANTS AHP TO COME AND AUTISM TUTOR THE BIPAP UNIT FROM HER HOME, SHE WILL NO LONGER WEAR IT, IT MAKES HER TO SICK TO HER STOMACH. SHE WILL ONLY WEAR O2.
--- NOTE | 2023-03-05 16:28 | PC.NURSE ---
Pt is A&O4 female who participated and contributed in plan of care. Pt was discharged home with . Pt is using hospital oxygen tank, charge nurse approved. Pt home meds were returned to pt. Pt had wallet that was left down in IMU when pt was transferred up. IMU nurse brought wallet to pt before discharge. Pt was wheeled down to private vehicle by PCT. Pt was monitored for any changes in status while here.
== END 2023-03-05 15:30 | disposition home health service (06) | DRG 189 ==
LOC: ANHED 09:26 → ANH3MEDSUR 10:01 → ANHIMU 10:55 → ANH3MEDSUR 03-04 11:10
PROVIDERS: Family Medicine; Hospitalist; Internal Medicine Pulmonary Disease; Student in an Organized Health Care Education/Training Program; Admitting Provider Student in an Organized Health Care Education/Training Program; Emergency Provider Emergency Medicine; PCP Emergency Medicine; Visit Provider Internal Medicine
DX: J96.21 Acute and chronic respiratory failure with hypoxia (principal); J44.1 Chronic obstructive pulmonary disease with (acute) exacerbation; J96.22 Acute and chronic respiratory failure with hypercapnia; E78.5 Hyperlipidemia, unspecified; I10 Essential (primary) hypertension; R77.8 Other specified abnormalities of plasma proteins; E87.6 Hypokalemia; E03.9 Hypothyroidism, unspecified; R11.2 Nausea with vomiting, unspecified; G25.81 Restless legs syndrome; Z20.822 Contact with and (suspected) exposure to COVID-19; I25.2 Old myocardial infarction; Z79.82 Long term (current) use of aspirin; Z87.891 Personal history of nicotine dependence; Z95.5 Presence of coronary angioplasty implant and graft; Z91.199 Patient's noncompliance with other medical treatment and regimen due to unspecified reason
CPT/HCPCS: 36415; 36600; 71045; 71275; 80048; 80053; 82375; 82805; 83050; 83735; 83880; 84100; 84439; 84443; 84484; 85025; 85027; 85380; 85610; 85730; 87637; 93005; 93306; 94002; 94003; 94618; 94640; 94762; 96374; 97110; 97116; 97161; 97165; 97530; 97535; 99285; A9270; G0378; J0456; J1650; J2405; J2920; J2930; J7060; J7512; Q9967

== ENCOUNTER 2023-03-18 11:37 | Inpatient (IN) | payer MEDICARE, SELFPAY ==
[2023-03-18] VITALS (58 sets, daily range): BP systolic 102–128; BP diastolic 52–76; PULSE 68–117; RESP 13–31; TEMP 36.2–36.8; O2SAT 93–100; BMI 22.6
--- NOTE | ~2023-03-18 | CT_ITS ---
EXAMINATION: CT abdomen wo/w con DATE: 03/21/2023 15:12 INDICATION: Renal mass TECHNIQUE: Computed tomography (CT) of the abdomen and pelvis was performed without and with 100 mL O mnipaque-350 intravenous contrast. Automated exposure control and iterative reconstruction technique were employed. The dose-length product was 383.03 mGy-cm. COMPARISON: None FINDINGS: Severe emphysema at the lung bases. Chronic discoid atelectasis/scarring at the right lung base. Mild reticulonodular and minimal airspace opacities in the dependent left lower lobe which could relate t o atelectasis, mild pulmonary edema or pneumonia. 7 mm left lower lobe nodule. Calcified right lower lobe nodule and several splenic and hepatic calcifications consistent with old granulomatous disease. No pleural effusion. Heart size is normal. Atherosclerotic coronary artery calcific lesion. Small pe ricardial effusion. Cholecystectomy clips at the gallbladder fossa. Pancreas, right kidney and bilate ral adrenal glands are normal. 2.2 cm left renal mass comprised predominantly of macroscopic fat most and without calcification consistent with an angiomyolipoma. Visualized portion of the bowels are un remarkable with no obstruction. No pathologically enlarged abdominal lymphadenopathy. There is calcif ied atherosclerosis of the aorta and many of the other arteries. Severe disc height loss at L5-S1. Ot herwise mild lumbar and lower thoracic spondylosis. IMPRESSION: 1. 2.2 cm macroscopic fat attenuation left renal mass most consistent with an angiomyolipoma and requ iring no further follow-up. 2. Emphysema with mild dependent lung disease in the left lower lobe which could represent atelectasi s, mild pulmonary edema or pneumonia. 3. Indeterminate 7 mm left lower lobe nodule. Recommend 3 month follow-up low-dose noncontrast chest CT . Reviewed, dictated and finalized at location A. IMPRESSION: 1. 2.2 cm macroscopic fat attenuation left renal mass most consistent with an a ngiomyolipoma and requiring no further follow-up. 2. Emphysema with mild dependent lung disease in the left lower lobe which coul d represent atelectasis, mild pulmonary edema or pneumonia. 3. Indeterminate 7 mm left lower lobe nodule. Recommend 3 month follow-up low-d ose noncontrast chest CT .
--- NOTE | ~2023-03-18 | XR_ITS ---
Portable chest x-ray Comparison: 03/01/2023 Clinical History: Shortness of breath Findings: There is probable COPD with stable right basilar scarring. No acute pulmonary abnormality evident. Cardiomediastinal silhouette is stable. Bones and soft tissues are unremarkable. Impression: COPD and probable right basilar scarring, similar to prior exam. No definite acute pulmonary abnormality seen. Reviewed, dictated and finalized at location . Impression: COPD and probable right basilar scarring, similar to prior exam. No definite acute pulmonary abnormality seen.
--- NOTE | ~2023-03-18 | CT_ITS ---
EXAMINATION: CTA chest DATE: 03/18/2023 13:21 CDT INDICATION: Shortness of breath TECHNIQUE: Computed tomographic angiography (CTA) of the chest was performed with 100 mL Omnipaque-35 0 intravenous contrast. The dose-length product was 325.33 mGy-cm. Maximum intensity projection 3D-re constructions of the aorta and other arteries were constructed by the technologist on a separate work station. Automated exposure control and iterative reconstruction technique were employed. COMPARISON: CT dated 02/23/2023. FINDINGS: There is atherosclerosis of the aorta without evidence for aneurysm or dissection. Small pe ricardial effusion. No significant pleural effusion. There is a complex heterogeneously enhancing 2.3 cm left renal mass partially visualized. There is emphysema. No endobronchial lesions. There is evid ence for chronic granulomatous disease. There is an enlarging 8 mm left lower lobe nodule which is dao spicious, comparing 02/23/2023. There is right lower lobe atelectasis/scarring. There is mild thoracic spondylosis. There is dextroscoliosis. IMPRESSION: 1. Right lower lobe airspace disease, most likely atelectasis/scarring, without significant change. 2: Small pericardial effusion. 3: Enlarging left lower lobe nodule measuring 8 mm, suspicious for malignancy. Recommend follow-up lo w dose CT chest and 3 months. 4: Emphysema. 5: Complex 2.3 cm left renal mass, partially visualized. Correlation with CT or MRI without and with contrast recommended. Reviewed, dictated and finalized at location B. IMPRESSION: 1. Right lower lobe airspace disease, most likely atelectasis/scarring, without significant change. 2: Small pericardial effusion. 3: Enlarging left lower lobe nodule measuring 8 mm, suspicious for malignancy. Recommend follow-up low dose CT chest and 3 months. 4: Emphysema. 5: Complex 2.3 cm left renal mass, partially visualized. Correlation with CT or MRI without and with contrast recommended.
--- NOTE | ~2023-03-18 | XR_ITS ---
EXAMINATION: SNIFF TEST W/O CXR +FLUORO<1HR DATE: 04/25/11 11:13:00 INDICATION: Concern for left diaphragmatic paralysis TECHNIQUE: Fluoroscopy was utilized for evaluation of diaphragmatic excursion with inspiration. Fluo roscopy exposure time was 0.1 minutes. A total of 147 images were recorded. COMPARISON: None. FINDINGS: There is relatively symmetric caudal excursion of both the left and right leaves of the diaphragm wit h rapid inspiration. Mild atelectasis and at the left lung base. Calcified nodules at the left lung b ase along with a couple splenic calcific lesions consistent with old granulomatous disease. Heart siz e is normal. IMPRESSION: 1. Normal sniff test. No evidence of phrenic nerve palsy. Reviewed, dictated and finalized at location A.
--- NOTE | 2023-03-18 11:55 | ECG_ITS ---
Measurements Intervals [place] Rate: 114 P: 95 PA: 137 QRS: 34 QRSD: 72 T: 81 QT: 298 QTc: 410 Interpretive Statements SINUS TACHYCARDIA WITH FREQUENT SUPRAVENTRICULAR PREMATURE COMPLEXES NONSPECIFIC ST & T-WAVE ABNORMALITY ABNORMAL RHYTHM ECG NO PREVIOUS ECG AVAILABLE FOR COMPARISON Electronically Signed On 03-18-2023 14:56:03 CDT by Valentín Morales M.D.
[2023-03-18] MEDS: IPRATROPIUM BR 0.02% INH SOLN 0.5 MG/2.5 ML VIAL INHALATION ×2 (12:08→19:42)
[2023-03-18] MEDS: ALBUTEROL SULFATE NEB 2.5 MG/3 ML INH INHALATION ×2 (12:08→19:42)
--- NOTE | 2023-03-18 12:13 | ED.SOB ---
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 Pt gave herself neb and called 911. Pt has history of copd but not PE or CHF. Pt placed on bipap by EMS and given decadron. Pt feels better on mask. Related Data Allergies Allergy/AdvReac Type Severity Reaction Status Date / Time No Known Allergies Allergy Verified 03/18/23 15:32 Review of Systems Review of Systems: All systems reviewed & are unremarkable except as noted in HPI and below PMFSH Past Medical History Medical History (Updated 03/18/23 @ 18:30 by Micky Simons, ZOILA) COPD (chronic obstructive pulmonary disease) CHERYL on CPAP Exam Const: General: ill appearing Nutritional Appearance: thin Orientation/consciousness: patient oriented x3 Limitations: no limitations HENMT: Head: normal to inspection Neck: Neck: normal visual inspection Chest: Chest palpation & inspection: normal inspection of the chest Resp: Effort & Inspection: labored Auscultation: diminished lung sounds Cardio: Rate: regular rate Rhythm: regular rhythm GI: GI Palp: Yes Soft to palpation Auscultation: normal bowel sounds Skin: General skin exam: normal color Wounds: no wounds Neuro: General: patient oriented x3, moves all extremities and no focal motor deficits Speech: normal speech Extrem: General: normal to inspection and no clubbing, cyanosis or edema Psych: Mental Status: mental status grossly normal Affect: normal affect Attitude: cooperative Course Vital Signs Vital signs: Vital Signs Temperature 98.3 F 03/18/23 11:32 Pulse Rate 117 H 03/18/23 11:32 Respiratory Rate 25 H 03/18/23 11:32 Pulse Oximetry 100 03/18/23 11:32 Oxygen Delivery CPAP 03/18/23 11:32 Temperature 98.3 F 03/18/23 11:32 Pulse Rate 87 03/18/23 17:50 Respiratory Rate 18 03/18/23 17:50 Blood Pressure 122/58 L 03/18/23 17:31 Pulse Oximetry 98 03/18/23 17:50 Oxygen Delivery BiPAP 03/18/23 17:50 Oxygen Flow Rate 2 03/18/23 16:51 MDM - SOB/Dyspnea MDM Narrative Medical decision making narrative: Pt with copd history presents with sudden onset SOB. could be copd exac but with sudden onset need to rule out pulmonary edema/chf or PE or pneumonia. cxr copd CTA chest no PE, labs ok, discussed with Jonathan Simons and agrees to admit. Differential Diagnosis Differential diagnosis: Likely acute exacerbation of chronic obstructive airways disease, congestive heart failure, community acquired pneumonia and pulmonary embolism Lab Data 03/18/23 12:04 03/18/23 12:04 Labs: Lab Results 03/18/23 03/18/23 Range/Units 12:04 12:16 WBC 13.7 H (4.5-10.0) K/mm3 RBC 3.73 L (4.2-5.4) M/mm3 Hgb 10.3 L (12.0-15.0) g/dL Hct 34.3 L (37.0-47.0) % MCV 92.0 (80-100) fl MCH 27.6 (26-34) pg MCHC 30.0 L (32-36) g/dl RDW 16.9 H (11.5-14.5) % Plt Count 303 (150-375) k/mm3 MPV 11.1 H (7.4-10.4) fl Immature Gran % (Auto) 0.3 (0-0.5) % Neut % (Auto) 64.2 (45.5-73.1) % Lymph % (Auto) 29.5 (18.3-44.2) % [place] % (Auto) 4.8 (2.6-8.5) % Eos % (Auto) 0.8 (0-4.4) % Baso % (Auto) 0.4 (0.2-1.2) % Lymph # (Auto) 4.04 H (0.9-3.2) K/mm3 Woodruff # (Auto) 0.7 H (0.1-0.6) K/mm3 Eos # (Auto) 0.1 (0-0.3) K/mm3 Baso # (Auto) 0.1 (0.0-0.1) K/mm3 Abs Immat Gran (auto) 0.04 H (0.00-0.031) K/mm3 Absolute Neuts (auto) 8.8 H (1.3-6.7) K/mm3 Absolute Nucleated RBC 0.0 (0.0-0.012) K/mm3 Nucleated RBC % 0.0 (0.0-0.2) % PT 14.3 (11.1-14.7) Seconds INR 1.1 APTT 28.1 (22.3-36.8) SECONDS D-Dimer 0.71 H (<0.48) ug/mL Expiratory Pressure 6 CMH2O Inspiratory Pressure 14 CMH2O Sodium 138 (137-145) mmol/L Potassium 2.9 L (3.4-5.0) mmol/L Chloride 102 (98-107) mmol/
[2023-03-18 12:23] LABS: Basophils Absolute Auto 0.1 K/mm3 (0.0-0.1); Basophils Percent Auto 0.4 % (0.2-1.2); Eosinophils Absolute Auto 0.1 K/mm3 (0-0.3); Eosinophils Percent Auto 0.8 % (0-4.4); Hematocrit 34.3 % (37.0-47.0); Hemoglobin 10.3 g/dL (12.0-15.0); Immature Granulocyte Absolute 0.04 K/mm3 (0.00-0.031); Immature Granulocyte Percent A 0.3 % (0-0.5); Lymphocytes Absolute Auto 4.04 K/mm3 (0.9-3.2); Lymphocytes Percent Auto 29.5 % (18.3-44.2); Mean Corpuscular Hemoglobin 27.6 pg (26-34); Mean Platelet Volume 11.1 fl (7.4-10.4); Monocytes Absolute Auto 0.7 K/mm3 (0.1-0.6); Monocytes Percent Auto 4.8 % (2.6-8.5); Neutrophils Absolute Auto 8.8 K/mm3 (1.3-6.7); Neutrophils Percent Auto 64.2 % (45.5-73.1); Platelet Count Result 303 k/mm3 (150-375); Red Blood Count 3.73 M/mm3 (4.2-5.4); Red Cell Distribution Width 16.9 % (11.5-14.5); White Blood Count 13.7 K/mm3 (4.5-10.0)
[2023-03-18 12:25] LABS: Alveolar/Arterial O2 Gradient 149.4 mmHg; Base Excess ABG 3.9 mEq/l (+/-2.0); Fractional Inspired Oxygen 70 %; HCO3 ABG 29.5 mEq/l (22.0-26.0); Oxygen Content ABG 16.5 %vol (16.0-22.0); Oxygen Saturation ABG 99.7 % (95.0-100.0); Oxyhemoglobin 98.9 % THb (90.0-100.0); PCO2 ABG 49.2 mmHg (35.0-45.0); PO2 ABG 296.8 mmHg (80.0-100.0); PO2 FiO2 Ratio Arterial Blood 4.24 %; Total Hemoglobin 11.3 g/dL (12.0-18.0); pH ABG 7.396 (7.350-7.450)
[2023-03-18 12:26] LABS: Device NON-INVASIVE VENT; Site Drawn LEFT BRACHIAL
[2023-03-18 12:27] LABS: Non-Invasive Expiratory Pressure 6 CMH2O; Non-Invasive Inspiratory Pressure 14 CMH2O; Non-Invasive Vent Rate 16 /MIN
[2023-03-18 12:33] LABS: INR 1.1; Prothrombin Time 14.3 Seconds (11.1-14.7)
[2023-03-18 12:34] LABS: Partial Thromboplastin Time 28.1 SECONDS (22.3-36.8)
[2023-03-18 12:35] LABS: Alanine Aminotransferase 31 U/L (6-35); Albumin Level 3.7 g/dL (3.5-5.1); Alkaline Phosphatase 110 U/L (38-126); Anion Gap 9 mmol/L (8-16); Aspartate Amino Transferase 29 U/L (14-36); Bilirubin,Total 0.7 mg/dL (0.2-1.3); Blood Urea Nitrogen 10 mg/dL (7-17); Carbon Dioxide 27 mmol/L (22-30); Chloride 102 mmol/L (98-107); Estimated CRCL calculation 32 ml/min; Estimated Glomerular Filt Rate 59; Glucose 160 mg/dL (65-110); Magnesium 2.1 mg/dL (1.6-2.3); Potassium 2.9 mmol/L (3.4-5.0); Sodium 138 mmol/L (137-145)
[2023-03-18 12:42] LABS: D Dimer 0.71 ug/mL (<0.48)
[2023-03-18 12:46] LABS: NT Pro B Type Natriuretic Pept 1270 pg/mL (19.9-100); Troponin I < 0.012 ng/mL (0.000-0.034)
--- NOTE | 2023-03-18 14:34 | PM.IMHP ---
H&P: HPI History of Present Illness Date/Time: 03/18/23 14:34 Chief Complaint: Acute onset shortness of breath Narrative: This is a 77-year-old female patient with past history of COPD who developed sudden acute onset shortness of breath this morning. She gave herself a nebulizer treatment and when that did not help she called 911 to come to the emergency department. EMS found patient in respiratory distress placed her on BiPAP and gave her IV steroids. Patient was placed on BiPAP in the emergency department and was feeling better on the BiPAP mask. ABG shows mild compensated respiratory acidosis. FiO2 was titrated down to 30%. Remainder of labs shows hypokalemia at 2.9 slight elevation of proBNP to 12 70, no prior baseline on record but patient denies history CHF. Urinalysis has elevated urine specific gravity but no signs of infection. White blood cell count is mildly elevated at 13.7 hemoglobin 10.3 hematocrit 34.3, no prior baselines on record. No signs of blood loss. Suspect anemia chronic disease. Patient did not bring a med list and her did not answer the telephone when we called. Home medications are not available at this time. [facility] Past Medical History Medical History (Updated 03/18/23 @ 20:54 by Micky Simons APRN) COPD (chronic obstructive pulmonary disease) Hypothyroidism CHERYL on CPAP Family History Family History (Updated 03/18/23 @ 18:53 by Karen Duncan RN) Other Unknown family medical history Social History Social History Smoking packs per day: 1 Smoking cigarettes per day: 20.0 Years smoked: 35 Smoking pack-years: 35.00 Smoking status: Former smoker Tobacco type: cigarettes Alcohol intake: never Substance use: never Lack of Transportation: No Lack of Food: Never True Current Housing: I Have Housing Concerned About Future Housing: No Difficulty Paying Gas/Electric Bills: No Difficulty Paying for Meds: No Currently Unemployed: No Education: High School Diploma/GED Difficulty w/ Childcare or Family Care: No Spiritual care concerns: No Meds Home Medications and Allergies Home Medications Medication Instructions Recorded Confirmed Type albuterol 90 mcg/actuation aerosol 90 mcg inhalation Q4H 03/18/23 03/18/23 History inhaler albuterol sulfate 2.5 mg/3 mL 2.5 mg inhalation Q4H PRN 03/18/23 03/18/23 History (0.083 %) solution for nebulization Shortness Of Breath aspirin 81 mg tablet,delayed 81 mg PO DAILY 03/18/23 03/18/23 History release atorvastatin 40 mg tablet 40 mg PO DAILY 03/18/23 03/18/23 History budesonide 160 mcg-glycopyr 9 2 inh inhalation BID 03/18/23 03/18/23 History mcg-formot 4.8 mcg/actuation HFA inhaler (Breztri Aerosphere) calcium carbonate 600 mg calcium 600 mg PO BID 03/18/23 03/18/23 History (1,500 mg) tablet levothyroxine 50 mcg tablet 50 mcg PO DAILY 03/18/23 03/18/23 History ropinirole 0.25 mg tablet 0.25 mg PO HS 03/18/23 03/18/23 History Allergies Allergy/AdvReac Type Severity Reaction Status Date / Time No Known Allergies Allergy Verified 03/18/23 15:32 Vital Signs Vital Signs - 24 hr 03/18/23 11:32 03/18/23 11:32 03/18/23 11:43 Temperature 36.8 C Pulse Rate 117 H Respiratory Rate 25 H Blood Pressure Pulse Oximetry 100 100 100 Oxygen Delivery CPAP CPAP CPAP 03/18/23 11:40 03/18/23 12:18 03/18/23 12:03 Temperature Pulse Rate 87 103 H Respiratory Rate 19 19 Blood Pressure Pulse Oximetry 100 100 Oxygen Delivery BiPAP BiPAP 03/18/23 12:30 03/18/23 12:36 03/18/23 11:46 Temperature Pulse Rate 105 H 99 106 H Respiratory Rate 17 17 19 Blood Pressure Pulse Oximetry 98 100 Oxygen Delivery BiPAP 03/18/23 11:50 03/18/23 11:51 03/18/23 12:00 Temperature Pulse Rate 105 H 108 H 113 H Respiratory Rate 24 H 18 15 Blood Pressure 102/52 L 115/76 Pulse Oximetry 98 100 100 O
[2023-03-18 15:08] LABS: Appearance Urine Clear (Clear); Bacteria Urine None Seen /hpf; Bilirubin Urine Negative (Negative); Blood Urine Negative (Negative); Color Urine Yellow (Yellow); Glucose Urine UA Negative (Negative); Hyaline Casts Urine Present /lpf; Ketones Urine Negative (Negative); Leukocyte Esterase Ur Negative LEU/UL (Negative); Nitrate Urine Negative (Negative); Non Pathogenic Casts 0-2; Protein Urine 1+ mg/dL (Negative); Squamous Epithelial Cell Urine Occasional /hpf (Few); Urobilinogen Urine 0.2 mg/dL (<2.0); WBC Urine 0-5 /hpf; pH Urine 5.5 (5.0-9.0)
[2023-03-18] MEDS: POTASSIUM CHLORIDE INJ 40 MEQ in SODIUM CHLORIDE 0.9% IV 500 ML 130 MEQ IVPB (15:08)
[2023-03-18 15:12] LABS: Add Urine Microscopic? YES; Specific Grav Ur 1.092 (1.001-1.035)
[2023-03-18] MEDS: SODIUM CHLORIDE 0.9% IV 1,000 ML 50 ML IV CONT (15:30)
[2023-03-18] MEDS: AZITHROMYCIN 250 MG TABLET 500 MG PO (15:34)
[2023-03-18] MEDS: methylPREDNISolone SOD SUCC 40 MG VIAL IV PUSH ×2 (16:48→23:57)
--- NOTE | 2023-03-18 18:40 | ADMGEN ---
This patient, Laxmi Colon, was admitted to IMU Room 202-01 @ 1830. Pt on BIPAP 07/11 rate 16-fio2=30% , Patient awake , alertoriented to hospital policies and general routines including ID bracelet, bed and alarms, visiting hours, pain management, procedures, bathroom and other care routines, personal items, smoking policy, room service/diet, and visiting hours.. monitor SR 90's Information on how to activate the Rapid Response Team has been discussed. Patientare encouraged to report perceived risks to care and to ask questions if they do not understand what they are told or what they should do.
[2023-03-18 19:40] LABS: Phosphorus 4.2 mg/dL (2.5-4.5)
[2023-03-18 19:47] LABS: Iron 17 ug/dL (37-170)
[2023-03-18 19:57] LABS: Percent Iron Saturation 10 % (20-50)
[2023-03-18] MEDS: POTASSIUM CHLORIDE 20 MEQ PACKET (FOR LIQUID) 40 MEQ PO (20:03)
[2023-03-18] MEDS: rOPINIRole HCL 0.25 MG TABLET PO (22:42)
[2023-03-19] VITALS (29 sets, daily range): BP systolic 98–113; BP diastolic 45–54; PULSE 63–88; RESP 15–28; TEMP 36.3–36.8; O2SAT 95–100
[2023-03-19] MEDS: ALBUTEROL SULFATE NEB 2.5 MG/3 ML INH INHALATION ×4 (02:50→20:33)
[2023-03-19] MEDS: IPRATROPIUM BR 0.02% INH SOLN 0.5 MG/2.5 ML VIAL INHALATION ×4 (02:51→20:33)
[2023-03-19 05:10] LABS: Hematocrit 28.3 % (37.0-47.0); Hemoglobin 8.8 g/dL (12.0-15.0); Immature Granulocyte Absolute 0.02 K/mm3 (0.00-0.031); Immature Granulocyte Percent A 0.3 % (0-0.5); Lymphocytes Absolute Auto 0.88 K/mm3 (0.9-3.2); Lymphocytes Percent Auto 12.6 % (18.3-44.2); Mean Corpuscular HGB Conc 31.1 g/dl (32-36); Mean Corpuscular Hemoglobin 27.8 pg (26-34); Mean Corpuscular Volume 89.3 fl (80-100); Monocytes Absolute Auto 0.1 K/mm3 (0.1-0.6); Monocytes Percent Auto 1.7 % (2.6-8.5); Neutrophils Absolute Auto 5.9 K/mm3 (1.3-6.7); Neutrophils Percent Auto 85.4 % (45.5-73.1); Platelet Count Result 293 k/mm3 (150-375); Red Blood Count 3.17 M/mm3 (4.2-5.4); Red Cell Distribution Width 16.7 % (11.5-14.5)
[2023-03-19 05:22] LABS: Anion Gap 4 mmol/L (8-16); Blood Urea Nitrogen 14 mg/dL (7-17); Calcium 8.5 mg/dL (8.4-10.2); Carbon Dioxide 30 mmol/L (22-30); Chloride 105 mmol/L (98-107); Estimated CRCL calculation 33 ml/min; Estimated Glomerular Filt Rate 59; Glucose 174 mg/dL (65-110); Phosphorus 3.3 mg/dL (2.5-4.5); Potassium 3.9 mmol/L (3.4-5.0); Sodium 139 mmol/L (137-145)
[2023-03-19] MEDS: methylPREDNISolone SOD SUCC 40 MG VIAL IV PUSH ×3 (06:13→17:43)
[2023-03-19] MEDS: LEVOTHYROXINE SODIUM 50 MCG TABLET PO (06:13)
[2023-03-19] MEDS: FLUTICASONE/UMECLIDIN/VILANTER 100-62.5-25 MCG ELLIPTA 2 PUFF INHALATION (07:49)
[2023-03-19] MEDS: ATORVASTATIN 40 MG TABLET PO (09:11)
[2023-03-19] MEDS: ASPIRIN 81 MG ENTERIC TABLET PO (09:11)
[2023-03-19] MEDS: ENOXAPARIN 40 MG/0.4 ML SYRINGE SUB-Q (09:12)
--- NOTE | 2023-03-19 09:31 | PM.IMPN ---
Progress Note: A&P Assessment and Plan (1) COPD exacerbation: Code(s): J44.1 - Chronic obstructive pulmonary disease with (acute) exacerbation Status: Acute Assessment and Plan: Patient with a history of COPD and sudden onset difficulty breathing. Not improved with nebulizer treatment. Improved dramatically with IV steroids and BiPAP. Initiate azithromycin due to elevated white blood cell count and level of dyspnea patient was experiencing concern for concomitant bacterial infection. COVID flu and RSV swabs negative. pulm consult ordered and pending, ABG tomorrow morning before off BIPAP (2) Renal mass: Code(s): N28.89 - Other specified disorders of kidney and ureter Status: Acute Assessment and Plan: Complex left renal mass noted, MRI with and without contrast recommended, ordered and pending (3) Lung nodule: Code(s): R91.1 - Solitary pulmonary nodule Status: Acute Assessment and Plan: 8 mm left lower lobe nodule, concerning for malignancy, follow-up CT chest in 3 months recommended (4) CHERYL on CPAP: Code(s): G47.33 - Obstructive sleep apnea (adult) (pediatric) Status: Acute Assessment and Plan: Patient has a history of sleep apnea and is supposed to wear CPAP at night but has not been doing so. Patient reports that she will wear her mask in the hospital and once she gets home. (5) Hypokalemia: Code(s): E87.6 - Hypokalemia Status: Acute Assessment and Plan: Resolved, monitor (6) Anemia: Qualifiers: Anemia type: iron deficiency Iron deficiency anemia type: unspecified iron deficiency Qualified Code(s): D50.9 - Iron deficiency anemia, unspecified Code(s): D64.9 - Anemia, unspecified Status: Acute Assessment and Plan: Suspected chronic anemia due to chronic illness, no evidence of acute bleeding at this time. Will trend with daily labs. Anemia labs indicate iron deficiency anemia, unknown type. Plan DVT prophylaxis with Lovenox GI prophylaxis with PPI Code status full code Subjective Date/time seen: 03/19/23 09:31 Interval history: 77-year-old female patient with past history of COPD who developed shortness of breath and is currently being treated for COPD exacerbation. No overnight events noted. No chest pain. No nausea, vomiting or diarrhea. No fevers or chills. Conversational dyspnea when off BIPAP. Review of Systems Review of Systems: 12 point review of systems was assessed and was negative except as noted in the HPI Exam Narrative: General: Looks acutely uncomfortable off BIPAP, more comfortable back on BIPAP later after lunch HEENT: Atraumatic, normocephalic, mucous membranes moist CV: Regular rate and rhythm, S1, S2 Lungs: Poor air entry throughout, no wheezes or crackles heard, but very diminished Abdomen: Soft, nontender, nondistended Extremities: Normal to inspection Skin: No rashes noted, no lesions or wounds seen Psych: Unable to assess Objective Data Vital Signs Vital Signs: Vital Signs - 24 hr 03/18/23 11:32 03/18/23 11:32 03/18/23 11:43 Temperature 98.3 F Pulse Rate 117 H Respiratory Rate 25 H Blood Pressure Pulse Oximetry 100 100 100 Oxygen Delivery CPAP CPAP CPAP Oxygen Flow Rate Fraction of Inspired Oxygen 03/18/23 11:40 03/18/23 12:18 03/18/23 12:03 Temperature Pulse Rate 87 103 H Respiratory Rate 19 19 Blood Pressure Pulse Oximetry 100 100 Oxygen Delivery BiPAP BiPAP Oxygen Flow Rate Fraction of Inspired Oxygen 03/18/23 12:30 03/18/23 12:36 03/18/23 11:46 Temperature Pulse Rate 105 H 99 106 H Respiratory Rate 17 17 19 Blood Pressure Pulse Oximetry 98 100 Oxygen Delivery BiPAP Oxygen Flow Rate Fraction of Inspired Oxygen 03/18/23 11:50 03/18/23 11:51 03/18/23 12:00 Temperature Pulse Rate 105 H 108 H 113 H Respiratory Rate 24
[2023-03-19] MEDS: AZITHROMYCIN 250 MG TABLET 500 MG PO (12:25)
[2023-03-19] MEDS: PANTOPRAZOLE 40 MG TABLET PO (12:25)
[2023-03-19] MEDS: CALCIUM CARBONATE (OSCAL) 500 MG TABLET PO ×2 (12:26→17:43)
--- NOTE | 2023-03-19 12:41 | PC.NURSE ---
Dr. Dumont at bedside to assess pt - pt becomes tachypneic while eating luch- spo2 100% on 3 l/nc- decreased to 2l/nc spo2 remains 100%-MD aware pt unable to tolerate being off BIPAP for long period of time- MRI on hold until pt able to tolerate being off BIPAP
--- NOTE | 2023-03-19 15:11 | PM.CNPUL ---
Assessment and Plan Assessment and plan (1) Lung nodule: Code(s): R91.1 - Solitary pulmonary nodule Status: Acute (2) CHERYL on CPAP: Code(s): G47.33 - Obstructive sleep apnea (adult) (pediatric) Status: Acute (3) COPD exacerbation: Code(s): J44.1 - Chronic obstructive pulmonary disease with (acute) exacerbation Status: Acute Assessment and Plan: This 77-year-old female has a history of COPD, evidence of severe centrilobular emphysema on chest CT presented with shortness of breath. The patient has been treated with IV steroids noninvasive ventilatory support antibiotics and short-acting bronchodilators presumably for COPD exacerbation. Patient reports improvement over the last 24 hours. She remains on BiPAP support. On physical exam the patient has distant breath sounds which is related to advanced emphysema and partly due to over inflation related to BiPAP support. She has no wheezing. It is possible that the patient has COPD exacerbation although arrhythmias like atrial fibrillation given the sudden onset of shortness of breath should be considered in differential diagnosis. Chest CT shows no infiltrates to suggest lower respiratory tract infection. There is a right lower lobe discoid atelectasis and a small nodule in the left lower lobe. On chest imaging studies the left diaphragm appears somewhat elevated, considering the severe hyperinflation. On physical exam there is asymmetrical expansion of the chest, with a left hemothorax expanding less than the right while the patient is on BiPAP support. This will need further clarification. Patient did not have significant hypercapnic respiratory failure on blood gases unless hypercapnia improved following BIPAP treatment by EMS. Plan: Continue with current antibiotic short-acting bronchodilators q.6 hours p.r.n. during the day. Have decreased IV steroids to b.i.d.. Also lowered BiPAP pressures to 10/4, respiratory rate down to 12. Repeat blood gases in a.m.. Continue DVT prophylaxis. The patient will need further workup regarding left lower lobe nodule. Will ask the patient to provide more details about her illness including history of a sleep apnea once she is off BiPAP. Will follow along with you. History of Present Illness History of Present Illness Consult date: 03/19/23 Chief complaint: COPD exacerbation Narrative: This 77-year-old female was brought to the emergency room with acute onset of shortness of breath. The patient has history of emphysema and has been on maintenance bronchodilators. No previous pulmonary function testing and no previous office visit to [facility]. Reportedly the patient developed shortness of breath not associated with other symptoms such as chest pain wheezing or palpitations. She called 911 and was placed on noninvasive ventilatory support by EMS and also given steroids. Reportedly she improved on BiPAP support. Arterial blood gases showed no significant elevation of a total bicarbonate and only mild elevation of pCO2. The pH was within the normal range. The patient has been treated with a IV steroids antibiotics and short-acting bronchodilators presumably for COPD exacerbation. Currently she remains on BiPAP support 14/6 respirations 20. She stated she feels better on a BiPAP. She denied having cough sputum production fever chills. Chest CT showed severe confluent centrilobular emphysema right lower lobe discoid atelectasis. She had no evidence of pulmonary embolism on the chest CT. There was a left lower lobe nodule measuring approximately 8 mm. Also renal mass. Review of Systems Review of Systems: Patient is currently on BiPAP support as sitting simple questions. ROS unobtainable: Yes unobtainable due to medical condition [facility] Past Medical History Medical History (Updated 03/19/23 @ 09:34 by Molly Dumont DO) COPD (chronic obstructive pulmonary disease) Hypothyroidism Lung nodule CHERYL
[2023-03-19] MEDS: SODIUM CHLORIDE 0.9% IV 500 ML IV CONT (18:27)
[2023-03-19] MEDS: rOPINIRole HCL 0.25 MG TABLET PO (20:36)
[2023-03-20] VITALS (31 sets, daily range): BP systolic 105–117; BP diastolic 42–62; PULSE 72–92; RESP 14–24; TEMP 36.1–36.9; O2SAT 96–100
[2023-03-20] MEDS: IPRATROPIUM BR 0.02% INH SOLN 0.5 MG/2.5 ML VIAL INHALATION ×4 (02:18→20:29)
[2023-03-20] MEDS: ALBUTEROL SULFATE NEB 2.5 MG/3 ML INH INHALATION ×4 (02:19→20:29)
--- NOTE | 2023-03-20 02:29 | PC.NURSE ---
patient had an episode of tachycardia and tachypnea around 2100. Patient had bipap in place. Took it off long enough to put pill in her mouth and a swallow of water. Replaced mask. Patient felt like she couldn't catch her breath and got very anxious. Put nasal cannula on just for a minute to try to calm her. That didn't work so put the bipap back on and called respiratory therapy. Respiratory therapy came into assess. Patient grabbed this nurses hand tightly and said, don't leave me and would not let go. This nurse sat with her until she calmed down. Monitor showing sinus tachycardia with PVC's at this time. No further similar episodes tonight. Tolerating mask/bipap well. No further episodes of tachycardia or tachypnea or anxiety.
[2023-03-20 04:24] LABS: Basophils Percent Auto 0.2 % (0.2-1.2); Hematocrit 28.6 % (37.0-47.0); Hemoglobin 8.8 g/dL (12.0-15.0); Immature Granulocyte Absolute 0.22 K/mm3 (0.00-0.031); Immature Granulocyte Percent A 1.1 % (0-0.5); Lymphocytes Absolute Auto 1.41 K/mm3 (0.9-3.2); Lymphocytes Percent Auto 7.3 % (18.3-44.2); Mean Corpuscular HGB Conc 30.8 g/dl (32-36); Mean Corpuscular Hemoglobin 28.1 pg (26-34); Mean Corpuscular Volume 91.4 fl (80-100); Mean Platelet Volume 10.8 fl (7.4-10.4); Monocytes Absolute Auto 0.7 K/mm3 (0.1-0.6); Monocytes Percent Auto 3.7 % (2.6-8.5); Neutrophils Percent Auto 87.7 % (45.5-73.1); Platelet Count Result 352 k/mm3 (150-375); Red Blood Count 3.13 M/mm3 (4.2-5.4); Red Cell Distribution Width 17.4 % (11.5-14.5); White Blood Count 19.4 K/mm3 (4.5-10.0)
[2023-03-20 04:37] LABS: Albumin Level 3.2 g/dL (3.5-5.1); Anion Gap 4 mmol/L (8-16); Blood Urea Nitrogen 19 mg/dL (7-17); Calcium 8.9 mg/dL (8.4-10.2); Carbon Dioxide 29 mmol/L (22-30); Chloride 107 mmol/L (98-107); Estimated CRCL calculation 33 ml/min; Estimated Glomerular Filt Rate 59; Glucose 145 mg/dL (65-110); Phosphorus 3.7 mg/dL (2.5-4.5); Sodium 140 mmol/L (137-145)
[2023-03-20] MEDS: SODIUM CHLORIDE 0.9% IV 1,000 ML 50 ML IV CONT (07:40)
[2023-03-20] MEDS: LEVOTHYROXINE SODIUM 50 MCG TABLET PO (07:43)
--- NOTE | 2023-03-20 07:52 | PC.NURSE ---
One large incontinent void overnight. Bladder scanned this am with result of 117ml.
[2023-03-20] MEDS: FLUTICASONE/UMECLIDIN/VILANTER 100-62.5-25 MCG ELLIPTA 2 PUFF INHALATION (08:40)
--- NOTE | 2023-03-20 08:47 | PM.PNPUL ---
Progress Note: A&P Assessment and Plan (1) COPD exacerbation: Code(s): J44.1 - Chronic obstructive pulmonary disease with (acute) exacerbation Status: Acute Assessment and Plan: This 77-year-old female presented with acute onset of shortness of breath. She has been treated for possible COPD exacerbation. Patient seems to be improving on current regimen of short-acting bronchodilators antibiotics IV steroids and BiPAP support. On physical exam she has marked lung hyperinflation with asymmetrical expansion of chest wall. On chest CT she has some discoid atelectasis in right lower lobe. Also the left diaphragm appears mildly elevated. It is possible that the chest wall asymmetry could be related to left hemidiaphragm weakness. Will consider further testing with a sniff test just before discharge. She has no evidence of significant hypercapnic respiratory failure and on physical exam she has distant breath sounds no wheezing. Patient stated she is followed in the Pulmonary Clinic but no records are available. Plan; continue with same treatment. Switch to oral steroids starting in a.m. BiPAP at night and p.r.n. during the day. (2) Lung nodule: Code(s): R91.1 - Solitary pulmonary nodule Status: Acute (3) Renal mass: Code(s): N28.89 - Other specified disorders of kidney and ureter Status: Acute Subjective Date/time seen: 03/20/23 08:47 Interval history: Patient has no new respiratory symptoms. She feels better today. Currently off a BiPAP sitting up in bed. Used BiPAP last night. Review of Systems Review of Systems: All systems reviewed & are unremarkable except as noted in HPI and below (HPI and below) Exam Narrative: GENERAL APPEARANCE: Well developed, well nourished, alert and cooperative, appears to be mild respiratory distress while on BiPAP support and supplemental oxygen SKIN: Inspection of the skin reveals no rashes, ulcerations or petechiae. HEENT: Sclerae anicteric and conjunctivae pink and moist. Extraocular movements were intact and pupils were equal, round. NECK: Supple. There was no thyroid enlargement, and no tenderness, or masses were felt. CHEST: Hyperinflated LUNGS: Distant breath sounds bilaterally no wheezing CARDIAC: There was a regular rate and rhythm without any murmurs, gallops, rubs. ABDOMEN: Soft and nontender with normal bowel sounds. There was no organomegaly. LYMPH NODES: No lymphadenopathy was appreciated in the neck. EXTREMITIES: No cyanosis, clubbing or edema. NEUROLOGIC: Alert and oriented x 3. Normal affect. Objective Data Vital Signs Vital Signs: Vital Signs - 24 hr 03/19/23 10:00 03/19/23 10:00 03/19/23 12:30 Temperature Pulse Rate 71 88 Respiratory Rate 28 H Blood Pressure Pulse Oximetry Oxygen Delivery BiPAP Oxygen Flow Rate Fraction of Inspired Oxygen 03/19/23 12:30 03/19/23 12:00 03/19/23 14:27 Temperature 36.3 C L Pulse Rate 74 Respiratory Rate 28 H 24 H 17 Blood Pressure 107/45 L Pulse Oximetry 99 98 Oxygen Delivery BiPAP BiPAP Oxygen Flow Rate Fraction of Inspired Oxygen 30 03/19/23 14:26 03/19/23 14:00 03/19/23 14:38 Temperature Pulse Rate 73 73 73 Respiratory Rate 18 18 Blood Pressure Pulse Oximetry Oxygen Delivery Oxygen Flow Rate Fraction of Inspired Oxygen 03/19/23 16:30 03/19/23 16:30 03/19/23 16:00 Temperature 36.8 C Pulse Rate 70 70 73 Respiratory Rate 18 18 Blood Pressure 102/54 L Pulse Oximetry 98 95 Oxygen Delivery BiPAP Oxygen Flow Rate Fraction of Inspired Oxygen 30 03/19/23 18:00 03/19/23 19:46 03/19/23 20:30 Temperature 36.8 C Pulse Rate 87 71 70 Respiratory Rate 16 15 Blood Pressure 107/53 L Pulse Oximetry 98 100 Oxygen Delivery BiPAP Oxygen Flow Rate Fraction of Inspired Oxygen 03/19/23 20:00 03/19/23 20:00 03/19/23 22:00 Temperature Pulse Rate 70 69 86 Respiratory Rate 15 B
[2023-03-20] MEDS: methylPREDNISolone SOD SUCC 40 MG VIAL IV PUSH ×2 (09:40→17:32)
[2023-03-20] MEDS: ENOXAPARIN 40 MG/0.4 ML SYRINGE SUB-Q (09:40)
[2023-03-20] MEDS: ATORVASTATIN 40 MG TABLET PO (10:05)
[2023-03-20] MEDS: ASPIRIN 81 MG ENTERIC TABLET PO (10:05)
[2023-03-20] MEDS: PANTOPRAZOLE 40 MG TABLET PO (10:05)
--- NOTE | 2023-03-20 10:38 | PCOTNOTE ---
Attempted to see patient for OT evaluation. Per RN, patient having difficulties breathing when just trying to take a sip of water. Needing bipap at this time. Recommend we try tomorrow.
--- NOTE | 2023-03-20 11:12 | PCPTNOTE ---
Per OT (who spoke to pt's RN), Pt is not appropriate for skilled therapy this date. Will follow.
[2023-03-20] MEDS: AZITHROMYCIN 250 MG TABLET 500 MG PO (12:09)
[2023-03-20] MEDS: CALCIUM CARBONATE (OSCAL) 500 MG TABLET PO ×2 (12:09→17:32)
--- NOTE | 2023-03-20 12:42 | PM.IMPN ---
Progress Note: A&P Assessment and Plan (1) COPD exacerbation: Code(s): J44.1 - Chronic obstructive pulmonary disease with (acute) exacerbation Status: Acute Assessment and Plan: Appreciate pulmonology consult and recommendations. Patient is wearing BiPAP comfort, no wheezing present at this time. Patient does not feel comfortable off of BiPAP for longer than it takes to eat meal. (2) CHERYL on CPAP: Code(s): G47.33 - Obstructive sleep apnea (adult) (pediatric) Status: Acute Assessment and Plan: See 1. (3) Anemia: Qualifiers: Anemia type: iron deficiency Iron deficiency anemia type: unspecified iron deficiency Qualified Code(s): D50.9 - Iron deficiency anemia, unspecified Code(s): D64.9 - Anemia, unspecified Status: Acute Assessment and Plan: Chronic and stable (4) Hypokalemia: Code(s): E87.6 - Hypokalemia Status: Acute Assessment and Plan: Treated and improved, now resolved (5) Renal mass: Code(s): N28.89 - Other specified disorders of kidney and ureter Status: Acute Assessment and Plan: Unable to obtain MRI for renal mass yet as patient does not feel she can be off of BiPAP long enough. (6) Lung nodule: Code(s): R91.1 - Solitary pulmonary nodule Status: Acute Assessment and Plan: Three-month follow-up CT recommended. Pulmonology on board. Plan Patient remains in IMU due to near continuous use of BiPAP. high anxiety component and patient feels better wearing the BiPAP BiPAP at night and p.r.n. Current BiPAP settings 10/4 with 30% FiO2 Scheduled DuoNebs Q6 Time Spent With Patient Time with patient: Greater than 35 minutes Subjective Date/time seen: 03/20/23 12:42 Interval history: No acute events overnight. This morning patient was able to be off BiPAP long enough to eat before she felt like she needed to go back on. Patient reported feeling anxious which made her breathing worse. She denies wheezing. No wheezing heard on auscultation. Vital signs stable. Patient scheduled for MRI for renal mass. May have to change to CT with and without contrast. Review of Systems Review of Systems: All systems reviewed & are unremarkable except as noted in HPI and below Exam Narrative: GENERAL: Patient awake alert oriented, BiPAP mask in place with no evidence of respiratory distress currently. She is able to removed the mask to speak to answer questions but feels more comfortable with the mask in place. HEENT: Pupils are equally round and briskly reactive to light. Extraocular muscles are intact. Oral mucous membranes are moist without lesions. NECK: The patient has no noted JVD. No adenopathy is appreciated. CHEST/LUNGS: Generally diminished lung sounds without rhonchi or rales. There is no subcutaneous air appreciated. There is no tenderness to the chest wall. HEART: Irregular rhythm with regular rate, atrial fibrillation rate of 90 on telemetry monitoring per my interpretation. No murmurs, rubs, or gallops are appreciated. Distal pulses are 2+. No carotid bruits appreciated. ABDOMEN: The patient?s abdomen is soft, nontender, and nondistended. Bowel sounds are positive. No organomegaly is appreciated. No masses are appreciated. There are no peritoneal signs. There is no Bonilla?s sign. EXTREMITIES: The patient has no peripheral edema. There is no focal long bone tenderness or deformity. SKIN: The patient?s skin is warm and dry, without rashes or lesions. PSYCHIATRIC: The patient has normal mental status and has an appropriate affect. NEUROLOGIC: There are no gross deficits to the cranial nerves. Patient moves all extremities well 5/5 strength Objective Data Vital Signs Vital Signs: Vital Signs - 24 hr 03/19/23 14:27 03/19/23 14:26 03/19/23 14:00 Temperature Pulse Rate 73 73 Respiratory Rate 17 18 Blood Pressure Pulse Oximetry 98 Oxygen Delivery BiPAP Oxygen Flow Rate
--- NOTE | 2023-03-20 17:02 | PC.NURSE ---
On 03/20/23, the student, Joelle [facility], provided care and completed [facility] documentation on this patient. I have reviewed the student's documentation and agree with the findings.
[2023-03-20] MEDS: rOPINIRole HCL 0.25 MG TABLET PO (20:07)
[2023-03-20] MEDS: LORazepam (*CRX) 0.5 MG TABLET PO (21:40)
[2023-03-21] VITALS (23 sets, daily range): BP systolic 93–140; BP diastolic 54–75; PULSE 68–84; RESP 18–27; TEMP 35.7–36.8; O2SAT 98–100
--- NOTE | 2023-03-21 | ECHO_ITS ---
Patient Info Name: Laxmi Colon Age: 77 years : 1945 Gender: Female Ht: 64 in Wt: 142 lbs BSA: 1.72 m2 HR: 77 bpm BP: 140 / 65 mmHg Technical Quality: Fair Exam Date: 03/21/2023 2:37 PM Exam Location: [facility] Patient Status: Inpatient Admit Date: 03/18/2023 Staff Ordering Physician: Micky Simons APRN Gate Manager: Coleen Tinoco RDCS Attending Provider: Valentín Bishop MD Referring Physician: Ronak GONSALEZ; Exam Type: CA echo doppler color flow Study Info Indications R06.00 - Dyspnea, unspecified - CAN'T WEAN OFF BIBPAP Complete two-dimensional, color flow and Doppler transthoracic echocardiogram is performed. Summary 1. Complete two-dimensional, color flow and Doppler transthoracic echocardiogram is performed. 2. Normal left ventricular size with mild concentric hypertrophy. Good systolic function of all segments. Ejection fraction 70%. Diastolic function indeterminate. 3. No significant valve disease. 4. Mild pulmonary hypertension, estimated pulmonary arterial systolic pressure is 38 mmHg. 5. Normal sinus rhythm. Left Ventricle Left ventricular chamber dimension is normal. Left ventricular systolic function is normal, estimated at 65-70%. There is mildly increased left ventricular wall thickness. Left ventricular septal wall motion is normal. The left ventricular diastolic function is indeterminate. Right Ventricle Right ventricular chamber dimension is normal. Right ventricular systolic function is normal. Left Atria Left atrial chamber dimension is normal. Right Atria Right atrial chamber dimension is normal. Aortic Valve The aortic valve is trileaflet. There is no aortic valve sclerosis. There is no aortic valve stenosis. There is no aortic valve regurgitation. Pulmonic Valve The pulmonic valve is normal. There is no pulmonic valve stenosis. There is no pulmonic regurgitation. Mitral Valve The mitral valve has thickened leaflets. There is no mitral valve stenosis. There is no mitral valve regurgitation. Tricuspid Valve The tricuspid valve leaflets are normal. There is no significant tricuspid valve stenosis. There is trace tricuspid valve regurgitation. Mild pulmonary hypertension, estimated pulmonary arterial systolic pressure is 38 mmHg. Pericardium/Pleural The pericardium appears normal. There is no pericardial effusion. Inferior Vena Cava Normal inferior vena cava with >50% collapse upon inspiration consistent with Empty right atrial pressure, 10 mmHg. Aorta The aortic root size at the sinus of Valsalva is normal. The prox ascending aorta size is normal. Left Ventricular Outflow Tract Name Value Normal LVOT 2D LVOT Diameter 1.9 cm LVOT Doppler LVOT Peak Gradient 5 mmHg LVOT Mean Gradient 3 mmHg LVOT VTI 20 cm LVOT VTI/AV VTI Ratio 1.1 LVOT Stroke Volume 53 ml LVOT CO 4.3 l/min LVOT CI 2.5 l/min/m2 Pulmonic Valve Name
[2023-03-21] MEDS: IPRATROPIUM BR 0.02% INH SOLN 0.5 MG/2.5 ML VIAL INHALATION ×3 (02:48→13:10)
[2023-03-21] MEDS: LEVALBUTEROL NEB 1.25 MG/3 ML INHALATION ×3 (02:48→13:10)
[2023-03-21 04:29] LABS: Basophils Percent Auto 0.1 % (0.2-1.2); Hematocrit 27.8 % (37.0-47.0); Hemoglobin 8.4 g/dL (12.0-15.0); Immature Granulocyte Absolute 0.12 K/mm3 (0.00-0.031); Immature Granulocyte Percent A 0.8 % (0-0.5); Lymphocytes Absolute Auto 1.16 K/mm3 (0.9-3.2); Mean Corpuscular HGB Conc 30.2 g/dl (32-36); Mean Corpuscular Hemoglobin 27.8 pg (26-34); Mean Corpuscular Volume 92.1 fl (80-100); Mean Platelet Volume 10.8 fl (7.4-10.4); Monocytes Absolute Auto 0.5 K/mm3 (0.1-0.6); Monocytes Percent Auto 3.3 % (2.6-8.5); Neutrophils Absolute Auto 12.7 K/mm3 (1.3-6.7); Neutrophils Percent Auto 87.8 % (45.5-73.1); Platelet Count Result 361 k/mm3 (150-375); Red Blood Count 3.02 M/mm3 (4.2-5.4); Red Cell Distribution Width 17.2 % (11.5-14.5); White Blood Count 14.5 K/mm3 (4.5-10.0)
[2023-03-21 04:41] LABS: Albumin Level 3.2 g/dL (3.5-5.1); Anion Gap 4 mmol/L (8-16); Blood Urea Nitrogen 20 mg/dL (7-17); Calcium 8.4 mg/dL (8.4-10.2); Carbon Dioxide 30 mmol/L (22-30); Chloride 107 mmol/L (98-107); Estimated CRCL calculation 40 ml/min; Estimated Glomerular Filt Rate > 60; Glucose 126 mg/dL (65-110); Phosphorus 3.6 mg/dL (2.5-4.5); Potassium 4.1 mmol/L (3.4-5.0); Sodium 141 mmol/L (137-145)
[2023-03-21] MEDS: LEVOTHYROXINE SODIUM 50 MCG TABLET PO (06:00)
[2023-03-21] MEDS: FLUTICASONE/UMECLIDIN/VILANTER 100-62.5-25 MCG ELLIPTA 2 PUFF INHALATION (07:25)
--- NOTE | 2023-03-21 08:44 | PM.PNPUL ---
Progress Note: A&P Assessment and Plan (1) COPD exacerbation: Assessment and Plan: This 77-year-old female presented with acute onset of shortness of breath. She has been treated for possible COPD exacerbation. Patient seems to be improving on current regimen of short-acting bronchodilators antibiotics IV steroids and BiPAP support. On physical exam she has marked lung hyperinflation with asymmetrical expansion of chest wall. On chest CT she has some discoid atelectasis in right lower lobe. Also the left diaphragm appears mildly elevated. It is possible that the chest wall asymmetry could be related to left hemidiaphragm weakness. Will consider further testing with a sniff test just before discharge. She has no evidence of significant hypercapnic respiratory failure and on physical exam she has distant breath sounds no wheezing. Patient followed in the Pulmonary Clinic, all previous medical records are now available. Plan; continue with same treatment. Switch to oral steroids starting in a.m. BiPAP at night and p.r.n. during the day. Sniff test to exclude left hemidiaphragm paralysis. Anticipate DC home soon. (2) Lung nodule: (3) Renal mass: Subjective Date/time seen: 03/21/23 08:44 Interval history: Patient feels better. She has no new respiratory symptoms. Used BiPAP support last night. Review of Systems Review of Systems: All systems reviewed & are unremarkable except as noted in HPI and below Exam Narrative: GENERAL APPEARANCE: Well developed, well nourished, alert and cooperative, appears to be in mild to moderate respiratory distress while onsupplemental oxygen SKIN: Inspection of the skin reveals no rashes, ulcerations or petechiae. HEENT: Sclerae anicteric and conjunctivae pink and moist. Extraocular movements were intact and pupils were equal, round. NECK: Supple. There was no thyroid enlargement, and no tenderness, or masses were felt. CHEST: Hyperinflated, asymmetrical expansion between the 2 hemithoraces. LUNGS: Distant breath sounds bilaterally no wheezing CARDIAC: There was a regular rate and rhythm without any murmurs, gallops, rubs. ABDOMEN: Soft and nontender with normal bowel sounds. There was no organomegaly. LYMPH NODES: No lymphadenopathy was appreciated in the neck. EXTREMITIES: No cyanosis, clubbing or edema. NEUROLOGIC: Alert and oriented x 3. Normal affect. Objective Data Vital Signs Vital Signs: Vital Signs - 24 hr 03/20/23 08:45 03/20/23 08:54 03/20/23 08:57 Temperature Pulse Rate 82 85 85 Respiratory Rate 18 20 22 H Blood Pressure Pulse Oximetry 100 100 Oxygen Delivery Nasal Cannula BiPAP Oxygen Flow Rate 2 Fraction of Inspired Oxygen 03/20/23 11:56 03/20/23 12:00 03/20/23 10:00 Temperature 36.1 C L Pulse Rate 85 76 81 Respiratory Rate 18 16 Blood Pressure 116/46 L Pulse Oximetry 100 100 Oxygen Delivery BiPAP Oxygen Flow Rate Fraction of Inspired Oxygen 03/20/23 12:00 03/20/23 12:00 03/20/23 14:00 Temperature Pulse Rate 82 79 Respiratory Rate Blood Pressure Pulse Oximetry 97 Oxygen Delivery BiPAP Oxygen Flow Rate Fraction of Inspired Oxygen 30 03/20/23 14:48 03/20/23 14:50 03/20/23 15:56 Temperature 36.6 C Pulse Rate 76 76 81 Respiratory Rate 20 20 16 Blood Pressure 117/42 L Pulse Oximetry 99 99 Oxygen Delivery BiPAP Oxygen Flow Rate Fraction of Inspired Oxygen 03/20/23 16:11 03/20/23 16:00 03/20/23 18:00 Temperature Pulse Rate 80 80 Respiratory Rate Blood Pressure 112/46 L Pulse Oximetry Oxygen Delivery Oxygen Flow Rate Fraction of Inspired Oxygen 03/20/23 16:00 03/20/23 19:25 03/20/23 20:29 Temperature 36.9 C Pulse Rate 79 78 Respiratory Rate 20 20 Blood Pressure 112/62 Pulse Oximetry 100 97 Oxygen Delivery BiPAP Oxygen Flow Rate Fraction of Inspired Oxygen 30 03/20/23 20:32 03/20/23 20:42 03/20/23 20:00 Temperature
--- NOTE | 2023-03-21 10:08 | PCPTNOTE ---
Attempted PT evaluation, pt is going for a test this morning. Per RN, attempt therapy at later time today. Will follow.
--- NOTE | 2023-03-21 10:08 | PCOTNOTE ---
Attempted OT evaluation. Spoke with RN, Pt is not appropriate for skilled therapy this date. Will follow.
[2023-03-21] MEDS: ATORVASTATIN 40 MG TABLET PO (10:53)
[2023-03-21] MEDS: ASPIRIN 81 MG ENTERIC TABLET PO (10:53)
[2023-03-21] MEDS: ENOXAPARIN 40 MG/0.4 ML SYRINGE SUB-Q (10:53)
[2023-03-21] MEDS: FUROSEMIDE INJ 40 MG/4 ML VIAL 20 MG IV PUSH (10:54)
--- NOTE | 2023-03-21 11:01 | PM.IMPN ---
Progress Note: A&P Assessment and Plan (1) COPD exacerbation: Code(s): J44.1 - Chronic obstructive pulmonary disease with (acute) exacerbation Status: Acute Assessment and Plan: Appreciate pulmonology consult and recommendations. Patient is wearing BiPAP comfort, no wheezing present at this time. Patient does not feel comfortable off of BiPAP for longer than it takes to eat meal. Unchanged. (2) CHERYL on CPAP: Code(s): G47.33 - Obstructive sleep apnea (adult) (pediatric) Status: Acute Assessment and Plan: See 1. Uncertain why patient cannot remain off BiPap at this time. Ordered Echocardiogram and 1 time dose of Lasix (3) Anemia: Qualifiers: Anemia type: iron deficiency Iron deficiency anemia type: unspecified iron deficiency Qualified Code(s): D50.9 - Iron deficiency anemia, unspecified Code(s): D64.9 - Anemia, unspecified Status: Acute Assessment and Plan: Chronic and stable (4) Hypokalemia: Code(s): E87.6 - Hypokalemia Status: Acute Assessment and Plan: Treated and improved, now resolved (5) Renal mass: Code(s): N28.89 - Other specified disorders of kidney and ureter Status: Acute Assessment and Plan: Unable to obtain MRI for renal mass yet as patient does not feel she can be off of BiPAP long enough. (6) Lung nodule: Code(s): R91.1 - Solitary pulmonary nodule Status: Acute Assessment and Plan: Three-month follow-up CT recommended. Pulmonology on board. Plan Patient remains in IMU due to near continuous use of BiPAP. high anxiety component and patient feels better wearing the BiPAP BiPAP at night and p.r.n. Current BiPAP settings 10/4 with 30% FiO2 Scheduled Xopenex nebs, patient got too tachycardic with albuterol Low urine output with normal renal function. Continue IV fluids. One dose IV Lasix. Echocardiogram ordered Time Spent With Patient Time with patient: Greater than 35 minutes Subjective Date/time seen: 03/21/23 11:01 Interval history: Patient reports she still is not feeling well or breathing well. She still chooses to wear BiPap nearly continuously despite attempts to wean. XR Sniff Test completed as there was concern for left diaphragm palsy. Sniff test was normal. Review of Systems Review of Systems: All systems reviewed & are unremarkable except as noted in HPI and below Exam Narrative: GENERAL: Patient awake alert oriented, BiPAP mask in place with no evidence of respiratory distress currently. She is able to remove the mask to speak to answer questions but feels more comfortable with the mask in place. HEENT: Pupils are equally round and briskly reactive to light. Extraocular muscles are intact. Oral mucous membranes are moist without lesions. NECK: The patient has no noted JVD. No adenopathy is appreciated. CHEST/LUNGS: Generally diminished lung sounds without wheeze, rhonchi or rales. HEART: Irregular rhythm with regular rate, atrial fibrillation rate of 85 on telemetry monitoring per my interpretation. No murmurs, rubs, or gallops are appreciated. Distal pulses are 2+. ABDOMEN: The patient?s abdomen is soft, nontender, and nondistended. Bowel sounds are positive. No peritoneal signs. EXTREMITIES: The patient has no peripheral edema. There is no focal long bone tenderness or deformity. SKIN: The patient?s skin is warm and dry, without rashes or lesions. PSYCHIATRIC: The patient has normal mental status and has an appropriate affect. NEUROLOGIC: There are no gross deficits to the cranial nerves. Patient moves all extremities well 5/5 strength Objective Data Vital Signs Vital Signs: Vital Signs - 24 hr 03/20/23 11:56 03/20/23 12:00 03/20/23 12:00 Temperature 36.1 C L Pulse Rate 85 76 82 Respiratory Rate 18 16 Blood Pressure 116/46 L Pulse Oximetry 100 100 Oxygen Delivery BiPAP Fraction of Inspired Oxygen 03/20/23 12:00 03/20/23
[2023-03-21] MEDS: AZITHROMYCIN 250 MG TABLET 500 MG PO (11:52)
[2023-03-21] MEDS: PANTOPRAZOLE 40 MG TABLET PO (11:52)
[2023-03-21] MEDS: CALCIUM CARBONATE (OSCAL) 500 MG TABLET PO (11:52)
[2023-03-21] MEDS: rOPINIRole HCL 0.25 MG TABLET PO (20:27)
[2023-03-22] VITALS (24 sets, daily range): BP systolic 109–153; BP diastolic 45–79; PULSE 68–114; RESP 14–26; TEMP 36.4–36.8; O2SAT 91–100
[2023-03-22] MEDS: hydrOXYzine HCL 25 MG TABLET PO (00:11)
[2023-03-22] MEDS: IPRATROPIUM BR 0.02% INH SOLN 0.5 MG/2.5 ML VIAL INHALATION ×2 (02:31→20:13)
[2023-03-22] MEDS: LEVALBUTEROL NEB 1.25 MG/3 ML INHALATION ×2 (02:32→20:13)
[2023-03-22 04:41] LABS: Basophils Percent Auto 0.1 % (0.2-1.2); Eosinophils Absolute Auto 0.2 K/mm3 (0-0.3); Eosinophils Percent Auto 1.3 % (0-4.4); Hematocrit 32.9 % (37.0-47.0); Hemoglobin 9.8 g/dL (12.0-15.0); Immature Granulocyte Absolute 0.17 K/mm3 (0.00-0.031); Immature Granulocyte Percent A 1.3 % (0-0.5); Lymphocytes Absolute Auto 2.14 K/mm3 (0.9-3.2); Lymphocytes Percent Auto 15.8 % (18.3-44.2); Mean Corpuscular HGB Conc 29.8 g/dl (32-36); Mean Corpuscular Hemoglobin 27.5 pg (26-34); Mean Corpuscular Volume 92.2 fl (80-100); Mean Platelet Volume 10.9 fl (7.4-10.4); Monocytes Absolute Auto 0.9 K/mm3 (0.1-0.6); Monocytes Percent Auto 6.9 % (2.6-8.5); Neutrophils Absolute Auto 10.1 K/mm3 (1.3-6.7); Neutrophils Percent Auto 74.6 % (45.5-73.1); Platelet Count Result 467 k/mm3 (150-375); Red Blood Count 3.57 M/mm3 (4.2-5.4); Red Cell Distribution Width 17.1 % (11.5-14.5); White Blood Count 13.6 K/mm3 (4.5-10.0)
[2023-03-22 05:07] LABS: Albumin Level 3.5 g/dL (3.5-5.1); Blood Urea Nitrogen 17 mg/dL (7-17); Calcium 8.5 mg/dL (8.4-10.2); Carbon Dioxide > 40 mmol/L (22-30); Chloride 99 mmol/L (98-107); Estimated CRCL calculation 45 ml/min; Estimated Glomerular Filt Rate > 60; Glucose 99 mg/dL (65-110); Phosphorus 2.8 mg/dL (2.5-4.5); Potassium 3.7 mmol/L (3.4-5.0); Sodium 140 mmol/L (137-145)
[2023-03-22 05:21] LABS: Anisocytosis 1+ (NORMAL); Hypochromasia 1+ (NORMAL); Platelet Estimate Increased (Adequate)
[2023-03-22 05:22] LABS: Ovalocytes 1+ (NORMAL); Schistocytes 1+ (NORMAL)
[2023-03-22] MEDS: SODIUM CHLORIDE 0.9% IV 1,000 ML 50 ML IV CONT ×2 (06:21→23:42)
[2023-03-22] MEDS: LEVOTHYROXINE SODIUM 50 MCG TABLET PO (06:21)
[2023-03-22] MEDS: FLUTICASONE/UMECLIDIN/VILANTER 100-62.5-25 MCG ELLIPTA 2 PUFF INHALATION (07:23)
[2023-03-22] MEDS: ASPIRIN 81 MG ENTERIC TABLET PO (08:31)
[2023-03-22] MEDS: predniSONE 20 MG, predniSONE 10 MG 30 MG PO (08:31)
[2023-03-22] MEDS: PANTOPRAZOLE 40 MG TABLET PO (08:32)
[2023-03-22] MEDS: ATORVASTATIN 40 MG TABLET PO (08:32)
[2023-03-22] MEDS: ENOXAPARIN 40 MG/0.4 ML SYRINGE SUB-Q (08:32)
--- NOTE | 2023-03-22 09:35 | PM.PNPUL ---
Progress Note: A&P Assessment and Plan (1) COPD exacerbation: Status: Acute Assessment and Plan: This 77-year-old female presented with acute onset of shortness of breath. She has been treated for possible COPD exacerbation. Patient seems to be improving on current regimen of short-acting bronchodilators antibiotics IV steroids and BiPAP support. On physical exam she has marked lung hyperinflation with asymmetrical expansion of chest wall. On chest CT she has some discoid atelectasis in right lower lobe. Also the left diaphragm appears mildly elevated. Patient underwent chest fluoroscopy to exclude left hemidiaphragm weakness. Sniff test showed no evidence of diaphragmatic weakness. On last abdominal CT there is small infiltrate left lower lobe new since admission. Patient has no symptoms to suggest ongoing lower respiratory tract infection. On physical exam she has distant breath sounds hyperinflated chest and no wheezing. She no longer has asymmetrical chest wall expansion today. Plan; continue with same treatment. Continue with oral steroids and antibiotics. Repeat ABGs out of bed to chair. Patient is not ready yet to be discharged. (2) Lung nodule: Status: Acute (3) Renal mass: Status: Acute Subjective Date/time seen: 03/22/23 09:35 Interval history: Patient has no new respiratory symptoms. She did not sleep well last night. Used BiPAP support last night. Currently on just supplemental oxygen. Underwent abdominal CT that raised question of a right lower lobe infiltrate. She has no new cough sputum production fever or chills. Review of Systems Review of Systems: All systems reviewed & are unremarkable except as noted in HPI and below Exam Narrative: GENERAL APPEARANCE: Well developed, well nourished, alert and cooperative, appears to be in mild to moderate respiratory distress while onsupplemental oxygen SKIN: Inspection of the skin reveals no rashes, ulcerations or petechiae. HEENT: Sclerae anicteric and conjunctivae pink and moist. Extraocular movements were intact and pupils were equal, round. NECK: Supple. There was no thyroid enlargement, and no tenderness, or masses were felt. CHEST: Hyperinflated, asymmetrical expansion between the 2 hemithoraces. LUNGS: Distant breath sounds bilaterally no wheezing CARDIAC: There was a regular rate and rhythm without any murmurs, gallops, rubs. ABDOMEN: Soft and nontender with normal bowel sounds. There was no organomegaly. LYMPH NODES: No lymphadenopathy was appreciated in the neck. EXTREMITIES: No cyanosis, clubbing or edema. NEUROLOGIC: Alert and oriented x 3. Normal affect. Objective Data Vital Signs Vital Signs: Vital Signs - 24 hr 03/21/23 11:00 03/21/23 12:00 03/21/23 12:15 Temperature 35.8 C L Pulse Rate 75 83 73 Respiratory Rate 26 H 19 Blood Pressure 140/65 Pulse Oximetry 100 100 99 Oxygen Delivery BiPAP Oxygen Flow Rate Fraction of Inspired Oxygen 03/21/23 13:10 03/21/23 15:27 03/21/23 12:00 Temperature Pulse Rate 79 74 83 Respiratory Rate 18 21 H 26 H Blood Pressure Pulse Oximetry 99 100 Oxygen Delivery BiPAP BiPAP Oxygen Flow Rate Fraction of Inspired Oxygen 40 03/21/23 10:00 03/21/23 12:00 03/21/23 14:00 Temperature Pulse Rate 78 81 77 Respiratory Rate Blood Pressure Pulse Oximetry Oxygen Delivery Oxygen Flow Rate Fraction of Inspired Oxygen 03/21/23 16:00 03/21/23 16:00 03/21/23 16:00 Temperature 35.7 C L Pulse Rate 76 76 76 Respiratory Rate 21 H 21 H Blood Pressure 93/75 L Pulse Oximetry 100 100 Oxygen Delivery BiPAP Oxygen Flow Rate Fraction of Inspired Oxygen 40 03/21/23 18:00 03/21/23 19:25 03/21/23 20:25 Temperature 36.3 C L Pulse Rate 82 77 76 Respiratory Rate 19 20 Blood Pressure 135/74 Pulse Oximetry 100 100 Oxygen Delivery BiPAP Oxygen Flow Rate Fraction of Inspired Oxygen 03/21/23 20:27 10
--- NOTE | 2023-03-22 11:43 | PCPTNOTE ---
Attempted PT evaluation 2x this morning. At 948 pt was with tech and at 1143 pt eating lunch. Will follow.
[2023-03-22 12:21] LABS: Alveolar/Arterial O2 Gradient 62.5 mmHg; Base Excess ABG 8.1 mEq/l (+/-2.0); Device NASAL CANNULA; Fractional Inspired Oxygen 32 %; HCO3 ABG 33.4 mEq/l (22.0-26.0); Modified Allen's Test Pass; Oxygen Content ABG 15.4 %vol (16.0-22.0); Oxyhemoglobin 96.9 % THb (90.0-100.0); PCO2 ABG 50.1 mmHg (35.0-45.0); PO2 FiO2 Ratio Arterial Blood 3.34 %; Site Drawn RIGHT RADIAL; Total Hemoglobin 11.2 g/dL (12.0-18.0); pH ABG 7.442 (7.350-7.450)
--- NOTE | 2023-03-22 13:16 | PM.IMPN ---
Progress Note: A&P Assessment and Plan (1) COPD exacerbation: Code(s): J44.1 - Chronic obstructive pulmonary disease with (acute) exacerbation Status: Acute Assessment and Plan: Appreciate pulmonology consult and recommendations. Patient is wearing BiPAP comfort, no wheezing present at this time. Patient does not feel comfortable off of BiPAP for longer than it takes to eat meal. Unchanged. 03/22: Patient on nasal cannula, will continue BiPap at night and PRN (2) CHERYL on CPAP: Code(s): G47.33 - Obstructive sleep apnea (adult) (pediatric) Status: Acute Assessment and Plan: See 1. 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 (6) Lung nodule: Code(s): R91.1 - Solitary pulmonary nodule Status: Acute Assessment and Plan: Three-month follow-up CT recommended. Pulmonology on board. Plan Patient remains in IMU due to near continuous use of BiPAP. high anxiety component and patient feels better wearing the BiPAP BiPAP at night and p.r.n. Current BiPAP settings / with 30% FiO2 Scheduled Xopenex nebs, patient got too tachycardic with albuterol Echocardiogram ordered Time Spent With Patient Time with patient: 25 - 35 minutes Subjective Date/time seen: 03/22/23 13:16 Interval history: Patient able to remain on nasal cannula since this morning. She still reports not feeling well and having some dyspnea but she exhibits no labored respirations at rest. Suspect anxiety worsens patient perception of dyspnea. Patient out of bed with therapy. Review of Systems Review of Systems: All systems reviewed & are unremarkable except as noted in HPI and below Exam Narrative: GENERAL: Patient awake alert oriented, no evidence of respiratory distress currently. Patient on nasal cannula HEENT: Pupils are equally round and briskly reactive to light. Extraocular muscles are intact. Oral mucous membranes are moist without lesions. NECK: The patient has no noted JVD. No adenopathy is appreciated. CHEST/LUNGS: Generally diminished lung sounds without wheeze, rhonchi or rales. No respiratory distress when resting. Mildly dyspneic appearing when awake. Tolerating without BiPap for now. HEART: Irregular rhythm with regular rate, atrial fibrillation rate of 83 on telemetry monitoring per my interpretation. No murmurs, rubs, or gallops are appreciated. Distal pulses are 2+. ABDOMEN: The patient?s abdomen is soft, nontender, and nondistended. Bowel sounds are positive. No peritoneal signs. EXTREMITIES: The patient has no peripheral edema. There is no focal long bone tenderness or deformity. SKIN: The patient?s skin is warm and dry, without rashes or lesions. PSYCHIATRIC: The patient has normal mental status and has an appropriate affect. NEUROLOGIC: There are no gross deficits to the cranial nerves. Patient moves all extremities well 5/5 strength Objective Data Vital Signs Vital Signs: Vital Signs - 24 hr 03/21/23 15:27 03/21/23 14:00 03/21/23 16:00 Temperature 35.7 C L Pulse Rate 74 77 76 Respiratory Rate 21 H 21 H Blood Pressure 93/75 L Pulse Oximetry 99 100 Oxygen Delivery BiPAP Oxygen Flow Rate Fraction of Inspired Oxygen 03/21/23 16:00 03/21/23 16:00 03/21/23
[2023-03-22] MEDS: CALCIUM CARBONATE (OSCAL) 500 MG TABLET PO ×2 (13:33→18:20)
[2023-03-22] MEDS: rOPINIRole HCL 0.25 MG TABLET PO (20:36)
[2023-03-23] VITALS (19 sets, daily range): BP systolic 115–143; BP diastolic 45–89; PULSE 66–107; RESP 14–25; TEMP 36.1–36.8; O2SAT 96–100
[2023-03-23 04:54] LABS: Anion Gap 4 mmol/L (8-16); Blood Urea Nitrogen 16 mg/dL (7-17); Calcium 8.1 mg/dL (8.4-10.2); Carbon Dioxide 27 mmol/L (22-30); Chloride 103 mmol/L (98-107); Estimated CRCL calculation 45 ml/min; Estimated Glomerular Filt Rate > 60; Glucose 88 mg/dL (65-110); Phosphorus 3.1 mg/dL (2.5-4.5); Potassium 3.7 mmol/L (3.4-5.0); Sodium 134 mmol/L (137-145)
[2023-03-23 05:26] LABS: Basophils Percent Auto 0.2 % (0.2-1.2); Eosinophils Absolute Auto 0.1 K/mm3 (0-0.3); Eosinophils Percent Auto 0.9 % (0-4.4); Hematocrit 30.8 % (37.0-47.0); Hemoglobin 9.4 g/dL (12.0-15.0); Immature Granulocyte Absolute 0.11 K/mm3 (0.00-0.031); Lymphocytes Absolute Auto 2.34 K/mm3 (0.9-3.2); Lymphocytes Percent Auto 20.8 % (18.3-44.2); Mean Corpuscular HGB Conc 30.5 g/dl (32-36); Mean Corpuscular Hemoglobin 27.7 pg (26-34); Mean Corpuscular Volume 90.9 fl (80-100); Mean Platelet Volume 10.8 fl (7.4-10.4); Monocytes Absolute Auto 0.7 K/mm3 (0.1-0.6); Monocytes Percent Auto 6.4 % (2.6-8.5); Neutrophils Percent Auto 70.7 % (45.5-73.1); Platelet Count Result 455 k/mm3 (150-375); Red Blood Count 3.39 M/mm3 (4.2-5.4); Red Cell Distribution Width 16.7 % (11.5-14.5); White Blood Count 11.3 K/mm3 (4.5-10.0)
[2023-03-23] MEDS: LEVOTHYROXINE SODIUM 50 MCG TABLET PO (05:40)
[2023-03-23] MEDS: IPRATROPIUM BR 0.02% INH SOLN 0.5 MG/2.5 ML VIAL INHALATION (07:40)
[2023-03-23] MEDS: LEVALBUTEROL NEB 1.25 MG/3 ML INHALATION (07:40)
[2023-03-23] MEDS: ENOXAPARIN 40 MG/0.4 ML SYRINGE SUB-Q (09:18)
[2023-03-23] MEDS: predniSONE 20 MG, predniSONE 10 MG 30 MG PO (09:18)
[2023-03-23] MEDS: ATORVASTATIN 40 MG TABLET PO (09:19)
[2023-03-23] MEDS: ASPIRIN 81 MG ENTERIC TABLET PO (09:19)
[2023-03-23] MEDS: PANTOPRAZOLE 40 MG TABLET PO (09:19)
--- NOTE | 2023-03-23 10:09 | PM.IMPN ---
Progress Note: A&P Assessment and Plan (1) COPD exacerbation: Code(s): J44.1 - Chronic obstructive pulmonary disease with (acute) exacerbation Status: Acute Assessment and Plan: Appreciate pulmonology consult and recommendations. Patient is wearing BiPAP comfort, no wheezing present at this time. Patient does not feel comfortable off of BiPAP for longer than it takes to eat meal. Unchanged. 03/22: Patient on nasal cannula, will continue BiPap at night and PRN unchanged, likely downgrade from IMU today (2) CHERYL on CPAP: Code(s): G47.33 - Obstructive sleep apnea (adult) (pediatric) Status: Acute Assessment and Plan: See 1. 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 (6) Lung nodule: Code(s): R91.1 - Solitary pulmonary nodule Status: Acute Assessment and Plan: Three-month follow-up CT recommended. Pulmonology on board. Plan Likely downgrade from IMU today BiPAP at night and p.r.n. Current BiPAP settings 02/27 with 30% FiO2 Changed xopenex/ipratropium nebs to as needed Time Spent With Patient Time with patient: 25 - 35 minutes Subjective Date/time seen: 03/23/23 10:09 Interval history: Patient was very anxious and tachycardic during breathing treatment. Nursing staff stated that patient required somebody to stay in the room and araiza hand for about 30 minutes after breathing treatment was finished. Patient does not have any wheezing and of breathing is improved. We will change nebulizer treatments to as needed. Patient off the BiPAP since breakfast and doing well. Review of Systems Review of Systems: All systems reviewed & are unremarkable except as noted in HPI and below Exam Narrative: GENERAL: Patient awake alert oriented, no evidence of respiratory distress currently. Patient on nasal cannula HEENT: Pupils are equally round and briskly reactive to light. Extraocular muscles are intact. Oral mucous membranes are moist without lesions. NECK: The patient has no noted JVD. No adenopathy is appreciated. CHEST/LUNGS: Generally diminished lung sounds without wheeze, rhonchi or rales. No respiratory distress when resting. Mildly dyspneic appearing when awake. Tolerating without BiPap for now. HEART: Irregular rhythm with regular rate, atrial fibrillation rate of 78 on telemetry monitoring per my interpretation. No murmurs, rubs, or gallops are appreciated. Distal pulses are 2+. ABDOMEN: The patient?s abdomen is soft, nontender, and nondistended. Bowel sounds are positive. No peritoneal signs. EXTREMITIES: The patient has no peripheral edema. There is no focal long bone tenderness or deformity. SKIN: The patient?s skin is warm and dry, without rashes or lesions. PSYCHIATRIC: The patient has normal mental status and has an appropriate affect. NEUROLOGIC: There are no gross deficits to the cranial nerves. Patient moves all extremities well 5/5 strength Objective Data Vital Signs Vital Signs: Vital Signs - 24 hr 03/22/23 11:39 03/22/23 11:58 03/22/23 13:47 Temperature 36.7 C Pulse Rate 83 Respiratory Rate 18 Blood Pressure 109/52 L Pulse Oximetry 99 100 Oxygen Delivery Nasal Cannula Nasal Cannula Oxygen Flow Rate 3 2 Fraction of Inspired Oxygen
--- NOTE | 2023-03-23 12:51 | PM.PNPUL ---
Progress Note: A&P Assessment and Plan (1) COPD exacerbation: Status: Acute Assessment and Plan: This 77-year-old female presented with acute onset of shortness of breath. She has been treated for possible COPD exacerbation. She is improving on current regimen of short-acting bronchodilators antibiotics, steroids and BiPAP support. On physical exam she has marked lung hyperinflation with asymmetrical expansion of chest wall. On chest CT she has some discoid atelectasis in right lower lobe. Also the left diaphragm appears mildly elevated. Patient underwent chest fluoroscopy to exclude left hemidiaphragm weakness. Sniff test showed no evidence of diaphragmatic weakness. On last abdominal CT there is small infiltrate left lower lobe new since admission. Patient has no symptoms to suggest ongoing lower respiratory tract infection. On physical exam she has distant breath sounds hyperinflated chest and no wheezing. Plan: continue with same treatment including oral steroids and antibiotics. Repeat ABGs out of bed to chair. Patient is not ready yet to be discharged. She uses BiPAP 15/5 with rate 16 at home; she tells me that sometimes she feels that her machine is giving her too much pressure. Here, on 02/27 and rate 10, her tidal volumes are plenty high, 500 ml to 736 ml. She is around 60 kg; 6-8 ml per kg would give her a recommended TV of less than 500 ml. Before going home, she may benefit from changing her BiPAP settings for a smaller difference between Inspiratory pressure and Expiratory pressure; may benefit from lower back up rate, home device at 16. . (2) Lung nodule: Status: Acute Assessment and Plan: 03/18/[address] = 7 mm LLL nodule, needs [address] Jun 18, 2023 or later Plan Stool softener and psyllium; Colace and psyllium powder BID for constipation. Continue therapy for COPD exacerbation; she is on prednisone 30 mg a day started 03/12 More PT OT therapy before discharge May consider changing her PAP settings before discharge; she is on BiPAP 15/5 rate 16 at home; her pCO2 is not above 51.6 in the last year. mostly high 40s up to 51. Here in the hospital, her BiPAP settings noted in the EMR are 10/4 with a back up rate of 10 in the RT notes but the machine in her room appears to be on 16/5. She would not qualify for a NPPV based because her pCO2 is not high enough. A spread of 10 cm water pressure is sometimes hard to tolerate. She will need repeat chest CT Jun 18, 2023 or later for 7 mm LLL nodule Subjective Date/time seen: 03/23/23 12:51 Interval history: hospital follow up : Laxmi Colon is 77 year old, seen in follow up for COPD exacerbation; her brought her home CPAP in today, was told to bring it in case we need to change her settings. She is not feeling quite back to normal, maybe about half way normal. She is not coughing up sputum. Did not have any therapy today because she was in the bed, getting help w changing wet clothes, so missed it. Has not moved her bowels in a few days. Would like stool softener. The EMR shows that she is on BiPAP 10/4 with O2 30% back up rate 10; At home, she uses BiPAP 15/5 with rate 16. Her tidal volumes have been recorded between 500s-736 ml, which is high for her weight of 130 lb/59 kg. her pCO2 is running around 50. Mar 18 - admitted through the ER with acute onset of shortness of breath without cough, sputum, fever, chills, chest pain, wheezing, or palpitations.? She called 911 and was placed on noninvasive ventilatory support by EMS, was given steroids.? She improved on BiPAP. Arterial blood gases showed no significant elevation of a total bicarbonate and only mild elevation of pCO2.? The pH was within the normal range.?She was treated with IV steroids, antibiotics,
--- NOTE | 2023-03-23 14:53 | PCPTNOTE ---
Patient declined PT this afternoon. Patient states she participated in OT today and fatigued after exercise. Patient states she would like to get cleaned up at this time and will be too tired for PT this afternoon. Patient declined transfers out of bed. Family present.
[2023-03-23] MEDS: CALCIUM CARBONATE (OSCAL) 500 MG TABLET PO (17:51)
[2023-03-23] MEDS: DOCUSATE SODIUM 100 MG CAPSULE PO (17:51)
[2023-03-23] MEDS: SODIUM CHLORIDE 0.9% IV 1,000 ML 50 ML IV CONT (17:52)
--- NOTE | 2023-03-23 19:58 | PC.NURSE ---
This patient, Laxmi Colon, was transferred to [facility] on 03/23/23 at 1840. Personal belongings sent with patient. Report given to Gely. Appropriate documentation sent with patient.
[2023-03-23] MEDS: rOPINIRole HCL 0.25 MG TABLET PO (20:16)
[2023-03-23] MEDS: PSYLLIUM SUGAR FREE POWDER PACKET 1 PACKET PO (20:16)
[2023-03-24] VITALS: BP 137/64; PULSE 69; RESP 20; TEMP 36.5; O2SAT 100
[2023-03-24 04:00] VITALS: BP 157/65; PULSE 73; RESP 16; TEMP 36.6; O2SAT 100
[2023-03-24] MEDS: DOCUSATE SODIUM 100 MG CAPSULE PO ×2 (05:36→16:51)
[2023-03-24] MEDS: LEVOTHYROXINE SODIUM 50 MCG TABLET PO (05:36)
[2023-03-24 07:23] LABS: Basophils Percent Auto 0.1 % (0.2-1.2); Eosinophils Absolute Auto 0.3 K/mm3 (0-0.3); Eosinophils Percent Auto 2.2 % (0-4.4); Hematocrit 32.4 % (37.0-47.0); Hemoglobin 9.8 g/dL (12.0-15.0); Immature Granulocyte Absolute 0.21 K/mm3 (0.00-0.031); Immature Granulocyte Percent A 1.5 % (0-0.5); Lymphocytes Absolute Auto 2.79 K/mm3 (0.9-3.2); Lymphocytes Percent Auto 20.5 % (18.3-44.2); Mean Corpuscular HGB Conc 30.2 g/dl (32-36); Mean Corpuscular Hemoglobin 27.5 pg (26-34); Mean Corpuscular Volume 90.8 fl (80-100); Mean Platelet Volume 10.3 fl (7.4-10.4); Monocytes Absolute Auto 1.1 K/mm3 (0.1-0.6); Neutrophils Absolute Auto 9.2 K/mm3 (1.3-6.7); Neutrophils Percent Auto 67.7 % (45.5-73.1); Nucleated Red Blood Cells Perc 0.2 % (0.0-0.2); Platelet Count Result 569 k/mm3 (150-375); Red Blood Count 3.57 M/mm3 (4.2-5.4); Red Cell Distribution Width 16.8 % (11.5-14.5); White Blood Count 13.6 K/mm3 (4.5-10.0)
[2023-03-24 07:25] VITALS: PULSE 77; RESP 18; O2SAT 99
[2023-03-24] MEDS: FLUTICASONE/UMECLIDIN/VILANTER 100-62.5-25 MCG ELLIPTA 2 PUFF INHALATION (07:25)
[2023-03-24 07:34] LABS: Albumin Level 3.3 g/dL (3.5-5.1); Anion Gap 4 mmol/L (8-16); Blood Urea Nitrogen 12 mg/dL (7-17); Calcium 8.6 mg/dL (8.4-10.2); Carbon Dioxide 36 mmol/L (22-30); Chloride 101 mmol/L (98-107); Estimated CRCL calculation 40 ml/min; Estimated Glomerular Filt Rate > 60; Glucose 85 mg/dL (65-110); Phosphorus 2.5 mg/dL (2.5-4.5); Potassium 3.5 mmol/L (3.4-5.0); Sodium 141 mmol/L (137-145)
[2023-03-24 10:20] VITALS: O2SAT 100
[2023-03-24] MEDS: predniSONE 20 MG, predniSONE 10 MG 30 MG PO (10:23)
[2023-03-24] MEDS: PANTOPRAZOLE 40 MG TABLET PO (10:23)
[2023-03-24] MEDS: ATORVASTATIN 40 MG TABLET PO (10:23)
[2023-03-24] MEDS: ASPIRIN 81 MG ENTERIC TABLET PO (10:23)
[2023-03-24] MEDS: ENOXAPARIN 40 MG/0.4 ML SYRINGE SUB-Q (10:34)
[2023-03-24] MEDS: PSYLLIUM SUGAR FREE POWDER PACKET 1 PACKET PO ×2 (10:35→20:57)
[2023-03-24 12:00] VITALS: BP 144/60; PULSE 72; RESP 18; TEMP 36.8; O2SAT 100
[2023-03-24] MEDS: CALCIUM CARBONATE (OSCAL) 500 MG TABLET PO ×2 (13:37→16:51)
[2023-03-24] MEDS: SODIUM CHLORIDE 0.9% IV 1,000 ML 50 ML IV CONT (13:38)
--- NOTE | 2023-03-24 14:09 | PM.IMPN ---
Progress Note: A&P Assessment and Plan (1) COPD exacerbation: Code(s): J44.1 - Chronic obstructive pulmonary disease with (acute) exacerbation Status: Acute Assessment and Plan: Appreciate pulmonology consult and recommendations. Patient is wearing BiPAP comfort, no wheezing present at this time. Patient does not feel comfortable off of BiPAP for longer than it takes to eat meal. Unchanged. 03/22: Patient on nasal cannula, will continue BiPap at night and PRN : unchanged, likely downgrade from IMU today 03/24: Patient doing much better. OK for SNF when insurance approval is ready. Patient to go to [facility]. (2) CHERYL on CPAP: Code(s): G47.33 - Obstructive sleep apnea (adult) (pediatric) Status: Acute Assessment and Plan: See 1. 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 (6) Lung nodule: Code(s): R91.1 - Solitary pulmonary nodule Status: Acute Assessment and Plan: Three-month follow-up CT recommended. Pulmonology on board. Plan Doing well on the floor BiPAP at night and p.r.n. Current BiPAP settings 02/27 with 30% FiO2 Changed xopenex/ipratropium nebs to as needed Time Spent With Patient Time with patient: 25 - 35 minutes Subjective Date/time seen: 03/24/23 09:09 Interval history: Patient feeling and breathing much better today. She appears to be well enough to go to SNF rehab, insurance authorization is still pending. Patient on 2 L nasal cannula and off of BiPAP already this morning when I saw her. Patient reports eating and drinking well. Patient denies any new or worsening symptoms. Review of Systems Review of Systems: All systems reviewed & are unremarkable except as noted in HPI and below Exam Narrative: GENERAL: Patient awake alert oriented, no evidence of respiratory distress currently. Patient on nasal cannula HEENT: Pupils are equally round and briskly reactive to light. Extraocular muscles are intact. Oral mucous membranes are moist without lesions. NECK: The patient has no noted JVD. No adenopathy is appreciated. CHEST/LUNGS: Generally diminished lung sounds without wheeze, rhonchi or rales. No respiratory distress when resting. Tolerating without BiPap during the day HEART: Irregular rhythm with regular rate. No murmurs, rubs, or gallops are appreciated. Distal pulses are 2+. ABDOMEN: The patient?s abdomen is soft, nontender, and nondistended. Bowel sounds are positive. No peritoneal signs. EXTREMITIES: The patient has no peripheral edema. There is no focal long bone tenderness or deformity. SKIN: The patient?s skin is warm and dry, without rashes or lesions. PSYCHIATRIC: The patient has normal mental status and has an appropriate affect. NEUROLOGIC: There are no gross deficits to the cranial nerves. Patient moves all extremities well 5/5 strength Objective Data Vital Signs Vital Signs: Vital Signs - 24 hr 03/23/23 16:00 03/23/23 16:00 03/23/23 18:00 Temperature 36.7 C Pulse Rate 79 81 73 Respiratory Rate 24 H Blood Pressure 130/45 L Pulse Oximetry 98 Oxygen Delivery Oxygen Flow Rate 03/23/23 16:00 03/23/23 21:25 03/23/23 20:00 Temperature 36.7 C Pulse Rate 70 72 Respiratory Rate 17 22 H
--- NOTE | 2023-03-24 18:13 | PM.PNPUL ---
Progress Note: A&P Assessment and Plan (1) COPD exacerbation: Status: Acute Assessment and Plan: This 77-year-old female presented with acute onset of shortness of breath. She has been treated for possible COPD exacerbation. She is improving on current regimen of short-acting bronchodilators antibiotics, steroids and BiPAP support. On physical exam she has marked lung hyperinflation with asymmetrical expansion of chest wall. On chest CT she has some discoid atelectasis in right lower lobe. Also the left diaphragm appears mildly elevated. Patient underwent chest fluoroscopy to exclude left hemidiaphragm weakness. Sniff test showed no evidence of diaphragmatic weakness. On last abdominal CT there is small infiltrate left lower lobe new since admission. Patient has no symptoms to suggest ongoing lower respiratory tract infection. On physical exam she has distant breath sounds hyperinflated chest and no wheezing. Plan: continue with same treatment including oral steroids and antibiotics. Repeat ABGs out of bed to chair. Patient is not ready yet to be discharged. She uses BiPAP 15/5 with rate 16 at home; she tells me that sometimes she feels that her machine is giving her too much pressure. Here, on 02/27 and rate 10, her tidal volumes are plenty high, 500 ml to 736 ml. She is around 60 kg; 6-8 ml per kg would give her a recommended TV of less than 500 ml. Before going home, she may benefit from changing her BiPAP settings for a smaller difference between Inspiratory pressure and Expiratory pressure; may benefit from lower back up rate, home device at 16. . (2) Lung nodule: Status: Acute Assessment and Plan: 03/18/[address] = 7 mm LLL nodule, needs [address] Jun 18, 2023 or later Plan I see the plans for patient going to [facility] for SNF when insurance approves. Continue therapy for COPD exacerbation; she is on prednisone 30 mg a day, Trelegy inhaler. Continue PT OT therapy before discharge May consider changing her PAP settings before discharge; she is on BiPAP 15/5 rate 16 at home; her pCO2 is not above 51.6 in the last year. mostly high 40s up to 51. Here in the hospital, her BiPAP settings noted in the EMR are 10/4 with a back up rate of 12 in the RT notes. Tidal volumes are 500 to 736. She can be on lower BiPAP settings at discharge. She would not qualify for a NPPV based because her pCO2 is not high enough. She will need repeat chest CT Jun 18, 2023 or later for 7 mm LLL nodule Subjective Date/time seen: 03/24/23 18:13 Interval history: hospital follow up : Laxmi Colon is 77 year old, seen in follow up for COPD exacerbation; She is in Room 322, sitting in a chair, playing on cell phone. Feels better today, no sputum. Less short of breath. Was able to move her bowels twice. She has her CPAP in her room. The EMR shows that she is on BiPAP 10/4 with O2 30% back up rate 12; At home, she uses BiPAP 15/5 with rate 16. Her tidal volumes have been recorded between 500s-736 ml, which is high for her weight of 130 lb/59 kg. Her pCO2 is running around 50. Mar 18 - admitted through the ER with acute onset of shortness of breath without cough, sputum, fever, chills, chest pain, wheezing, or palpitations.? She called 911 and was placed on noninvasive ventilatory support by EMS, was given steroids.? She improved on BiPAP. Arterial blood gases showed no significant elevation of a total bicarbonate and only mild elevation of pCO2.? The pH was within the normal range.?She was treated with IV steroids, antibiotics,short-acting bronchodilators for a COPD exacerbation. She was on BiPAP support 14/6 respirations 20.? She stated she feels better on a BiPAP.? 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
[2023-03-24 20:00] VITALS: BP 123/73; PULSE 73; RESP 22; TEMP 36.4; O2SAT 100
[2023-03-24] MEDS: rOPINIRole HCL 0.25 MG TABLET PO (20:57)
[2023-03-25] VITALS (7 sets, daily range): BP systolic 120–130; BP diastolic 63–86; PULSE 69–85; RESP 13–22; TEMP 36.5–36.8; O2SAT 97–100
[2023-03-25] MEDS: DOCUSATE SODIUM 100 MG CAPSULE PO ×2 (05:47→17:15)
[2023-03-25] MEDS: LEVOTHYROXINE SODIUM 50 MCG TABLET PO (05:47)
[2023-03-25 06:34] LABS: Basophils Percent Auto 0.3 % (0.2-1.2); Eosinophils Absolute Auto 0.3 K/mm3 (0-0.3); Eosinophils Percent Auto 1.9 % (0-4.4); Hemoglobin 10.1 g/dL (12.0-15.0); Immature Granulocyte Absolute 0.21 K/mm3 (0.00-0.031); Immature Granulocyte Percent A 1.4 % (0-0.5); Lymphocytes Absolute Auto 3.87 K/mm3 (0.9-3.2); Lymphocytes Percent Auto 25.9 % (18.3-44.2); Mean Corpuscular HGB Conc 30.6 g/dl (32-36); Mean Corpuscular Hemoglobin 27.7 pg (26-34); Mean Corpuscular Volume 90.4 fl (80-100); Mean Platelet Volume 10.4 fl (7.4-10.4); Monocytes Absolute Auto 1.5 K/mm3 (0.1-0.6); Monocytes Percent Auto 9.7 % (2.6-8.5); Neutrophils Absolute Auto 9.1 K/mm3 (1.3-6.7); Neutrophils Percent Auto 60.8 % (45.5-73.1); Platelet Count Result 599 k/mm3 (150-375); Red Blood Count 3.65 M/mm3 (4.2-5.4); Red Cell Distribution Width 16.8 % (11.5-14.5); White Blood Count 14.9 K/mm3 (4.5-10.0)
[2023-03-25 06:45] LABS: Albumin Level 3.3 g/dL (3.5-5.1); Anion Gap 2 mmol/L (8-16); Blood Urea Nitrogen 12 mg/dL (7-17); Calcium 8.5 mg/dL (8.4-10.2); Carbon Dioxide 38 mmol/L (22-30); Chloride 101 mmol/L (98-107); Estimated CRCL calculation 40 ml/min; Estimated Glomerular Filt Rate > 60; Glucose 89 mg/dL (65-110); Phosphorus 2.9 mg/dL (2.5-4.5); Potassium 3.5 mmol/L (3.4-5.0); Sodium 141 mmol/L (137-145)
[2023-03-25] MEDS: FLUTICASONE/UMECLIDIN/VILANTER 100-62.5-25 MCG ELLIPTA 2 PUFF INHALATION (08:01)
[2023-03-25] MEDS: SODIUM CHLORIDE 0.9% IV 1,000 ML 50 ML IV CONT (09:27)
[2023-03-25] MEDS: predniSONE 20 MG, predniSONE 10 MG 30 MG PO (09:28)
[2023-03-25] MEDS: PSYLLIUM SUGAR FREE POWDER PACKET 1 PACKET PO (09:28)
[2023-03-25] MEDS: ATORVASTATIN 40 MG TABLET PO (09:28)
[2023-03-25] MEDS: ASPIRIN 81 MG ENTERIC TABLET PO (09:28)
[2023-03-25] MEDS: ENOXAPARIN 40 MG/0.4 ML SYRINGE SUB-Q (09:28)
[2023-03-25] MEDS: PANTOPRAZOLE 40 MG TABLET PO (09:28)
--- NOTE | 2023-03-25 09:54 | PCNWS ---
Weekly nutritional screen. Patient is tolerating current heart healthy diet with adequate intake. No weight loss reported. No nutritional needs at this time.
--- NOTE | 2023-03-25 10:01 | PM.PNPUL ---
Progress Note: A&P Assessment and Plan (1) COPD exacerbation: Code(s): J44.1 - Chronic obstructive pulmonary disease with (acute) exacerbation Status: Acute Assessment and Plan: GOLD grade 4 group E COPD Tobacco use 47 PY, quit 10/2018.? 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 PFTs 04/06/2021 with FEV1 0.56 L, 31%, air trapping, hyperinflation, moderately decreased DLCO when corrected for alveolar volume) on 2 L nasal cannula oxygen 17/12, tobacco exposure, severe panlobular emphysema on her CT scan 11/28/20,?finished?pulmonary rehabilitation on 10/21/20. ?ABG 08/23/2022 on 2 L 7. and initiated on home BiPAP 08/10. Status post COPD exacerbation with intubation and failure to wean requiring tracheostomy 12/16/2020. Status post inpatient COPD exacerbation 02/23/2023 through 03/05/2023. Admitted now with COPD exacerbation. Patient has COPD with chronic hypoxemic and hypercarbic respiratory failure with a PaCO2 of 51.7 on 08/23/2022 and PFTs with an FEV1 of 31% predicted. Patient has been on BiPAP but has failed BiPAP with 2 exacerbations requiring hospitalizations since 02/23/2023. Patient requires noninvasive ventilation to prevent further deterioration and subsequent hospitalizations for her chronic hypercarbic respiratory failure. 03/25: Tells me that she is 85% back to her normal. She still has shortness of breath and this occurs quicker than previously. She denies any change in her cough or chronic phlegm production. She has no wheezing. White blood cell count is 14.9, creatinine is 0.9. Patient is afebrile. Plan: Patient is on prednisone 30 mg a day and I will decrease this to 20 today. She started steroids on 03/18/2023. I will continue her trilogy 100. Goal saturation 90-94%. Currently she is on 2 L with saturations 100%. Although she is tolerating trilogy in the hospital she has had difficulty with this as an outpatient and I prefer her to be discharged on nebulizers as an outpatient. The patient is ready to be discharged from a pulmonary perspective once she is set up with a BiPAP when she goes to [facility] while she is waiting home noninvasive ventilator with the AVAPS AE mode when she is discharged from the [facility] to home. When patient is ready to be discharged would discharge on the following pulmonary medications: Prednisone 20 mg PO on 03/27 and 03/28, then prednisone 10 mg a day x3 days then off. Nebulized albuterol and ipratropium 2.5-0.5 mg q.i.d. Budesonide 500 mcg nebulized b.i.d. Rescue albuterol 2 puffs q.4 hours p.r.n. shortness of breath and wheezing Oxygen at rest and with ambulation per [facility] protocol When naps and sleeps at [facility]: BiPAP with a rate of 12, inspiratory pressure 10, expiratory pressure 4 and 4 L bleed in. She should uses BiPAP while she is awaiting for a noninvasive ventilator with the AVAPS AE mode at discharge from [facility] to home with a respiratory rate of 20, tidal volume 500, minimal EPAP 5, maximal EPAP 15, minimal inspiratory pressure 6, maximal inspiratory pressure 25, inspiratory time 1.0 seconds, rise of 3 with 36% FiO2. Follow-up in the Pulmonary Clinic in 4 weeks. Have her call the clinic [phone] to make this appointment. Pulmonary inpatient services will resume on 03/04/2023. Will follow with you. (2) Respiratory failure with hypoxia and hypercapnia: Code(s): J96.91 - Respiratory failure, unspecified with hypoxia; J96.92 - Respiratory failure, unspecified with hypercapnia Status: Acute Assessment and Plan: Patient with chronic hypoxemic respiratory failure on 2 L nasal cannula at rest, with ambulation 3 L and 4 L bleed in at night with her noninvasive ventilator with BiPAP rate 16, 15/5. Sniff test on 03/21/2023 was normal. Status post inpatient COPD exacerbation 02/23/2023 through 03/05/2023. Admitted now with COPD exacerbation. Patient has COPD with chronic hypoxemic and hype
--- NOTE | 2023-03-25 11:13 | PCRCNOTE ---
FAXED TRILOGY PACKET TO [facility].
[2023-03-25] MEDS: CALCIUM CARBONATE (OSCAL) 500 MG TABLET PO ×2 (12:07→17:15)
[2023-03-25 13:13] LABS: SARS-CoV-2 RNA PCR Negative (Negative)
--- NOTE | 2023-03-25 14:24 | PM.DS ---
DS: Admitting Diagnosis Discharge Date 03/25/2023 Admitting Diagnosis COPD exacerbation, CHERYL on CPAP, hypokalemia, anemia DS: Discharge Diagnosis Discharge Diagnosis (1) COPD exacerbation: Code(s): J44.1 - Chronic obstructive pulmonary disease with (acute) exacerbation Status: Acute (2) CHERYL on CPAP: Code(s): G47.33 - Obstructive sleep apnea (adult) (pediatric) Status: Acute (3) Anemia: Qualifiers: Anemia type: iron deficiency Iron deficiency anemia type: unspecified iron deficiency Qualified Code(s): D50.9 - Iron deficiency anemia, unspecified Code(s): D64.9 - Anemia, unspecified Status: Acute (4) Hypokalemia: Code(s): E87.6 - Hypokalemia Status: Acute (5) Renal mass: Code(s): N28.89 - Other specified disorders of kidney and ureter Status: Acute (6) Lung nodule: Code(s): R91.1 - Solitary pulmonary nodule Status: Acute DS: Summary Hospital Course Reason for hospitalization: acute recurrent exacerbation of COPD Hospital Course: This is a 77-year-old female patient with past history of COPD admitted to the hospital for respiratory distress in the setting of acute COPD exacerbation. Patient reports she was not using her BiPAP at home correctly. Patient reports that she woke up and suddenly experienced severe difficulty breathing. Patient was placed on BiPAP in the emergency department. She was much more comfortable on BiPAP to the point that we had difficulty weaning her off. She was only able to the mask for about 15 minutes at a time in order to eat and then had to go right back on for a couple of days. She received breathing treatments which made her severely anxious. She also received steroids and empiric azithromycin. On imaging patient had an incidental finding of a left lower lobe 7-8 mm nodule as well as a renal mass. The renal mass was subsequently evaluated with CT scan with and without IV contrast and felt to be benign. Patient is instructed to get CT scan chest on her around June 18 for surveillance of pulmonary nodule. Over the past 2 days patient has been able to wear 2 liters/minute nasal cannula during the day and BiPAP at night. Pulmonology recommended AVAPS for patient and will be ordering this for home once she discharges from SNF. Until then BiPAP settings will be changed from 15/5 rate of 16 to 10/4 rate of 12 with 4 L bleed in oxygen at night. Patient to use 2-3 liters/minute during the day. Time spent discussing smoking cessation with patient: 3 to 10 minutes Status at Discharge Cognitive/behavioral status at discharge: Awake alert oriented pleasant Functional status at discharge: uses cane/walker Overall status at discharge: patient is progressing back to baseline Time Spent with Patient Time attestation: Total time spent providing and/or coordinating discharge services: 40 minutes Time spent: Greater than 30 minutes Exam Narrative: GENERAL: Patient awake alert oriented, no evidence of respiratory distress currently. Patient on nasal cannula HEENT: Pupils are equally round and briskly reactive to light. Extraocular muscles are intact. Oral mucous membranes are moist without lesions. NECK: The patient has no noted JVD. No adenopathy is appreciated. CHEST/LUNGS: Generally diminished lung sounds without wheeze, rhonchi or rales. No respiratory distress when resting. Tolerating without BiPap during the day HEART: Irregular rhythm with regular rate. No murmurs, rubs, or gallops are appreciated. Distal pulses are 2+. ABDOMEN: The patient?s abdomen is soft, nontender, and nondistended. Bowel sounds are positive. No peritoneal signs. EXTREMITIES: The patient has no peripheral edema. There is no focal long bone tenderness or deformity. SKIN: The patient?s skin is warm and dry, without rashes or lesions. PSYCHIATRIC: The patient has normal mental status and has an appropriate affect. NEUROLOGIC: There are no gross
== END 2023-03-25 18:30 | DRG 191 ==
LOC: ANHED 14:28 → ANHIMU 16:59 → ANH3MEDSUR 03-23 18:41
PROVIDERS: Internal Medicine Pulmonary Disease; Admitting Provider Chiropractor; Emergency Provider Emergency Medicine; PCP Emergency Medicine; Visit Provider Nurse Practitioner
DX: J44.1 Chronic obstructive pulmonary disease with (acute) exacerbation (principal); J96.11 Chronic respiratory failure with hypoxia; J96.12 Chronic respiratory failure with hypercapnia; D63.8 Anemia in other chronic diseases classified elsewhere; J43.2 Centrilobular emphysema; E87.6 Hypokalemia; E03.9 Hypothyroidism, unspecified; N28.89 Other specified disorders of kidney and ureter; R91.1 Solitary pulmonary nodule; R39.15 Urgency of urination; G47.33 Obstructive sleep apnea (adult) (pediatric); Z11.52 Encounter for screening for COVID-19; Z87.891 Personal history of nicotine dependence
CPT/HCPCS: 36415; 36600; 71045; 71275; 74170; 76000; 80053; 80069; 81001; 82607; 82728; 82746; 82805; 83540; 83550; 83735; 83880; 84100; 84484; 85025; 85380; 85610; 85730; 87040; 87635; 93005; 93306; 94002; 94003; 94640; 94660; 97110; 97161; 97166; 97530; 97535; 99285; A9270; J1650; J1940; J2920; J3480; J7030; J7040; J7512; Q9967

== ENCOUNTER 2023-06-19 14:18 | Outpatient (CLI) | payer MEDICARE, SELFPAY ==
--- NOTE | ~2023-06-19 | CT_ITS ---
EXAMINATION:CT diagnostic chest wo con DATE: 06/19/2023 14:44 INDICATION: Solitary pulmonary nodule. TECHNIQUE: Computed tomography (CT) of the chest was performed without intravenous contrast. Automate d exposure control and iterative reconstruction technique were employed. The dose-length product (DLP ) was 67.95 mGy-cm. COMPARISON: Chest CT 03/18/2023, 08/23/22, 10/16/19 FINDINGS: There is severe emphysema. There is chronic collapse of right middle lobe. There is a 7 mm nodule in left lower lobe, stable from 10/16/2019, likely benign. There is mild atelectasis bilaterall y. Calcified right lung nodules and calcified right hilar lymph nodes are consistent with old granulo matous disease. The heart size is normal. There are coronary artery calcifications. There is a chroni c small pericardial effusion. Calcifications in the liver and spleen are consistent with old granulom atous disease. There are changes of cholecystectomy. There is moderate thoracic spondylosis. There is mild chronic anterior wedging of T7 and T8 vertebral bodies. IMPRESSION: 1. Lung-RADS category 2: Benign appearance or behavior. Continue annual screening with noncontrast lo w-dose chest CT in 12 months. Reviewed, dictated and finalized at location E. MANAGER IMPRESSION: 1. Lung-RADS category 2: Benign appearance or behavior. Continue annual screeni ng with noncontrast low-dose chest CT in 12 months.
== END 2023-06-19 14:19 | disposition home or self-care (01) ==
PROVIDERS: PCP Emergency Medicine; Visit Provider Internal Medicine Pulmonary Disease
DX: R91.1 Solitary pulmonary nodule (principal)
CPT/HCPCS: 71250

== ENCOUNTER 2023-10-01 15:20 | Inpatient (IN) | payer MEDICARE, SELFPAY ==
[2023-10-01] VITALS (18 sets, daily range): BP systolic 139–200; BP diastolic 70–94; PULSE 72–100; RESP 18–30; TEMP 36.2–37.2; O2SAT 92–100
--- NOTE | ~2023-10-01 | US_ITS ---
EXAMINATION: US venous doppler [facility] DATE: 10/02/2023 14:07 INDICATION: Shortness of breath. Positive d-dimer. TECHNIQUE: Grayscale ultrasound images without and with compression and Doppler ultrasound images of the bilateral lower extremity veins were obtained. COMPARISON: Ultrasound 12/15/2020 FINDINGS: The visualized portions of right common femoral vein, profunda (deep) femoral vein, femoral vein, pop liteal vein, peroneal veins, posterior tibial veins, and greater saphenous vein outflow are patent. The visualized portions of left common femoral vein, profunda femoral vein, femoral vein, popliteal v ein, peroneal veins, posterior tibial veins, and greater saphenous vein outflow are patent. IMPRESSION: 1. No deep venous thrombosis. Reviewed, dictated and finalized at location A.
--- NOTE | ~2023-10-01 | XR_ITS ---
EXAMINATION: XR chest 1V portable DATE: 10/03/2023 08:34 INDICATION: Shortness of breath. TECHNIQUE: A single frontal view of the chest was obtained. COMPARISON: Chest 2 views 10/01/2023, chest CT 06/19/2023 FINDINGS: The lungs are hyperexpanded with lucencies, consistent with emphysema. There is mild atelec tasis in the lower lung zones. No pleural effusion or pneumothorax. The heart size is normal. Calcifi ed right hilar lymph nodes are consistent with old granulomatous disease. IMPRESSION: 1. Mild atelectasis in the lower lung zones. 2. Severe emphysema. Reviewed, dictated and finalized at location A.
--- NOTE | ~2023-10-01 | CT_ITS ---
EXAMINATION: CTA chest PE protocol DATE: 10/03/2023 13:36 INDICATION: Chest pain. Hypoxia. TECHNIQUE: Computed tomography angiography (CTA) of the chest was performed with 100 mL Omnipaque-350 intravenous contrast timed to evaluate the pulmonary arteries. Coronal maximum intensity projection 3D-reconstructions were created by the technologist. Automated exposure control and iterative reconst ruction technique were employed. The dose-length product was 253.60 mGy-cm. COMPARISON: Chest CT 06/19/2023, 10/16/2019 FINDINGS: There is severe emphysema. A calcified right lung nodule and calcified right hilar lymph no luis eduardo are consistent with old granulomatous disease. There is mild atelectasis in the inferior lungs. T here is a 7 mm nodule in left lower lobe, stable from 10/16/2019, likely benign. No pleural effusion. The heart size is normal. There are coronary artery calcifications. There is a small pericardial effu viky. There is no pulmonary embolus. There are changes of cholecystectomy. Calcifications in the live r and spleen are consistent with old granulomatous disease. Aortic atherosclerosis is noted. There is mild thoracic spondylosis. There is mild chronic anterior wedging of multiple vertebral bodies. IMPRESSION: 1. No pulmonary embolus. 2. Severe emphysema. 3. Chronic small pericardial effusion. Reviewed, dictated and finalized at location A.
--- NOTE | ~2023-10-01 | XR_ITS ---
EXAMINATION: XR chest 2V Exam Date/Time: 10/01/2023 16:00 CDT HISTORY: sob, COPD EXACERBATION Comparison: 03/18/2023; CT chest 06/19/2023. RESULT: Lines, tubes, and devices: Surgical clip over the right lower chest. Lungs and pleura: Emphysematous change. Patchy and streaky subsegmental bibasilar opacities Bibasila r scarring. Cardiomediastinal silhouette: Stable. Other: No acute osseous or upper abdominal finding. IMPRESSION: Subsegmental bibasilar atelectasis/consolidation and scarring. Severe emphysema. Reviewed, dictated and finalized at location K. IMPRESSION: Subsegmental bibasilar atelectasis/consolidation and scarring. Severe emphysema .
--- NOTE | 2023-10-01 15:25 | ECG_ITS ---
SEE SCANNED COPY FOR CONFIRMED REPORT MTDD
[2023-10-01 16:03] LABS: Basophils Absolute Auto 0.1 K/mm3 (0.0-0.1); Basophils Percent Auto 0.4 % (0.2-1.2); Eosinophils Absolute Auto 0.3 K/mm3 (0-0.3); Eosinophils Percent Auto 2.7 % (0-4.4); Hemoglobin 10.4 g/dL (12.0-15.0); Immature Granulocyte Absolute 0.03 K/mm3 (0.00-0.031); Immature Granulocyte Percent A 0.2 % (0-0.5); Lymphocytes Absolute Auto 4.43 K/mm3 (0.9-3.2); Mean Corpuscular HGB Conc 30.6 g/dl (32-36); Mean Corpuscular Hemoglobin 27.7 pg (26-34); Mean Corpuscular Volume 90.7 fl (80-100); Mean Platelet Volume 10.5 fl (7.4-10.4); Monocytes Absolute Auto 0.7 K/mm3 (0.1-0.6); Monocytes Percent Auto 5.4 % (2.6-8.5); Neutrophils Absolute Auto 7.1 K/mm3 (1.3-6.7); Neutrophils Percent Auto 56.3 % (45.5-73.1); Platelet Count Result 410 k/mm3 (150-375); Red Blood Count 3.75 M/mm3 (4.2-5.4); Red Cell Distribution Width 17.5 % (11.5-14.5); White Blood Count 12.7 K/mm3 (4.5-10.0)
--- NOTE | 2023-10-01 16:12 | ED_ITS ---
HPI - General Adult General Chief complaint: Shortness of Breath/Dyspnea <Gabo Iglesias PA-C - Last Filed: 10/01/23 18:42> Stated complaint: SOB <MICKEY Man Last Filed: 10/01/23 18:42> Time Seen by Provider: 10/01/23 16:03 <MICKEY Man Last Filed: 10/01/23 18:42> Source: patient <MICKEY Man Last Filed: 10/01/23 18:42> Mode of arrival: ambulatory <MICKEY Man Last Filed: 10/01/23 18:42> Limitations: no limitations <MICKEY Man Last Filed: 10/01/23 18:42> History of Present Illness HPI narrative: This is a 77 year old female with PMH of COPD who presents to the ED with chief complaint of shortness of breath beginning rather abruptly today within the past hour.. Patient reports that she was trying to do several chores in the house and feels that she was overdoing it. She reports she was unable to catch her breath in the house so she came to the ER. She does report that she used her rescue inhaler with no relief. Denies any recent illness, fevers, chills, cough or chest pain. States she normally uses 3 L O2 during the day. During exam she did have single episode of pleuritic pain. Also reports she takes she takes another inhaler twice a day. <MICKEY Man Last Filed: 10/01/23 18:42> Related Data Home medications: Home Medications Medication Instructions Recorded Confirmed atorvastatin 40 mg tablet 40 mg PO DAILY 05/05/19 10/01/23 aspirin 81 mg tablet,delayed 81 mg PO DAILY 05/06/19 10/01/23 release calcium carbonate 600 mg PO BID 05/06/19 10/01/23 levothyroxine 50 mcg tablet 50 mcg PO DAILY 05/06/19 10/01/23 ropinirole 0.25 mg tablet 0.25 mg PO DAILY 02/23/23 10/01/23 <MICKEY Man Last Filed: 10/01/23 18:42> Allergies/adverse reactions: Allergies Allergy/AdvReac Type Severity Reaction Status Date / Time No Known Allergies Allergy Verified 05/21/23 15:52 <Gabo Iglesias PA-C - Last Filed: 10/01/23 18:42> Review of Systems Review of Systems: All systems as dictated in HPI <Gabo Iglesias PA-C - Last Filed: 10/01/23 18:42> [facility] Past Medical History Medical History: Medical History Chronic hypoxemic respiratory failure COPD (chronic obstructive pulmonary disease) Elevated lipids Gastrostomy tube in place H/O vaginal delivery History of heart attack History of tobacco use Hypertension Hypothyroidism Lung nodule CHERYL on CPAP Renal mass Shortness of Breath Thyroid disease Unable to eat <Gabo Iglesias PA-C - Last Filed: 10/01/23 18:42> Surgical History Surgical History: Surgical History History of cholecystectomy History of total abdominal hysterectomy and bilateral salpingo-oophorectomy History of tubal ligation <Gabo Iglesias PA-C - Last Filed: 10/01/23 18:42> Family History Family History: Family History Mother Hypertension Sibling Family history of malignant neoplasm of kidney Family history of lung cancer Lung disease Other Unknown family medical history <Gabo Iglesias PA-C - Last Filed: 10/01/23 18:42> Social History Social History: Social History Social History: Currently lives with in [place]. Surrogate decisionmaker: William, . Full Code. Retired from [employer]. Patient has 3 children. Smoking packs per day: 1 Smoking cigarettes per day: 20.0 Years smoked: 54 Smoking pack-years: 54.00 Smoking status: Former smoker Tobacco type: cigarettes Smoking end date: 10/27/18 Alcohol intake: never Substance use: never Do You Feel Safe in your Home?: Yes Lack of Transportation: No Lack of Food: Never True Current Housing: I Have Housing Concerned About Future Housing: No Difficulty Paying Gas/Electric Bills: No Difficulty Paying for Meds: No Currently Unemployed: No Education: Decline to Answer Difficulty w/ Childcare or Family Care: No Living arrangements: with family Occupation/Education: retired Gender identity (if verbalized by the patient): Female Spiritual care concerns: No <Gabo Iglesias PA-C - Last Filed: 10/01/23 18:42> Exam Narrative: GENERAL: Well-appearing, well-nourished, and in no acute distress. HEAD: Normocephalic, atraumatic. EYES: PERRLA and EOMI. ENT: Nares clear, no rhinorrhea or epistaxis. Mucous membranes moist. Oropharynx without tonsillar hypertrophy exudate or other lesions. NECK: Supple. No adenopathy or masses. CHEST: Increased work of breathing present. Supraclavicular retractions. Lungs are relatively clear to auscultation. No obvious wheezes heard. Not able to bubble of air. Able to speak in nearly full sentences. HEART: Regular rate and rhythm. No murmur heard. Normal peripheral pulses. ABDOMEN: Soft, nontender, nondistended, normal active bowel sounds. MSK: Normal range of motion. No edema. SKIN: Warm, dry, no rash. NEURO: Alert and oriented x3. No focal deficits. PSYCH: Normal mood and affect. <Gabo Iglesias PA-C - Last Filed: 10/01/23 18:42> Course Course Emergency Course: Frequent re-evaluations after initial interview show patient continuously declining and respiratory status. She continues to work hard breathing is becoming very anxious. BiPAP started. <Gabo Iglesias PA-C - Last Filed: 10/01/23 18:42> [employer]/PA Physician Supervision This visit was performed by both a physician and an APC. I performed all aspects of the MDM as documented. <Tracy Alston MD - Last Filed: 10/01/23 22:35> Reevaluation(s) Reevaluation #1: She is now resting comfortably in the bed. Breathing much better on 14 and 6 on the BiPAP. Vitals have normalized. <Gabo Iglesias PA-C - Last Filed: 10/01/23 18:42> Date: 10/01/23 <Gabo Iglesias PA-C - Last Filed: 10/01/23 18:42> Time: 17:55 <Gabo Iglesias PA-C - Last Filed: 10/01/23 18:42> Vital Signs Vital signs: Vital Signs Temperature 98.9 F 10/01/23 15:25 Pulse Rate 90 10/01/23 15:25 Respiratory Rate 30 H 10/01/23 15:25 Blood Pressure 200/90 H 10/01/23 15:25 Pulse Oximetry 95 10/01/23 15:25 Temperature 97.2 F L 10/01/23 20:00 Pulse Rate 81 10/01/23 20:00 Respiratory Rate 18 10/01/23 20:00 Blood Pressure 148/94 H 10/01/23 20:00 Pulse Oximetry 100 10/01/23 20:00 Oxygen Delivery BiPAP 10/01/23 18:03 Oxygen Flow Rate 3 10/01/23 15:28 <Gabo Iglesias PA-C - Last Filed: 10/01/23 18:42> Vital Signs Temperature 98.9 F 10/01/23 15:25 Pulse Rate 90 10/01/23 15:25 Respiratory Rate 30 H 10/01/23 15:25 Blood Pressure 200/90 H 10/01/23 15:25 Pulse Oximetry 95 10/01/23 15:25 Temperature 97.2 F L 10/01/23 20:00 Pulse Rate 81 10/01/23 20:00 Respiratory Rate 18 10/01/23 20:00 Blood Pressure 148/94 H 10/01/23 20:00 Pulse Oximetry 100 10/01/23 20:00 Oxygen Delivery BiPAP 10/01/23 18:03 Oxygen Flow Rate 3 10/01/23 15:28 <Tracy Alston MD - Last Filed: 10/01/23 22:35> Medical Decision Making MDM Narrative Medical decision making narrative: This is a 77-year-old female who presents to the ED for COPD exacerbation. Vitals initially show very elevated pressure of 200/90 and respiratory rate of 30. On exam she initially is working to breathe but not respiratory distress. On subsequent re-evaluation started to deteriorate. She was started on breathing treatment and BiPAP. Solu-Medrol and magnesium started as well. Lab work shows mild leukocytosis of 12.7 stable anemia. D-dimer slightly elevated but cleared by YEARS criteria for PE. ABG initially shows hypercapnia but no acidosis. CMP shows mild hypokalemia. After BiPAP was placed patient rapidly starting to improve. Her vitals have normalized. She is now breathing 20 times a minute. She appears much more comfortable on exam. We discussed that she will need to be admitted for observation due to this exacerbation. She is understanding and agreeable. Discussed with hospitalist JACKSON, who recommends admission to IMU with q.4 nebs and q.6 Solu-Medrol. Admitted in stable condition <Gabo Iglesias PA-C - Last Filed: 10/01/23 18:42> Vital Signs Vital Signs: Vital Signs Temperature 98.9 F 10/01/23 15:25 Pulse Rate 90 10/01/23 15:25 Respiratory Rate 30 H 10/01/23 15:25 Blood Pressure 200/90 H 10/01/23 15:25 Pulse Oximetry 95 10/01/23 15:25 Temperature 97.2 F L 10/01/23 20:00 Pulse Rate 81 10/01/23 20:00 Respiratory Rate 18 10/01/23 20:00 Blood Pressure 148/94 H 10/01/23 20:00 Pulse Oximetry 100 10/01/23 20:00 Oxygen Delivery BiPAP 10/01/23 18:03 Oxygen Flow Rate 3 10/01/23 15:28 <Gabo Iglesias PA-C - Last Filed: 10/01/23 18:42> Vital Signs Temperature 98.9 F 10/01/23 15:25 Pulse Rate 90 10/01/23 15:25 Respiratory Rate 30 H 10/01/23 15:25 Blood Pressure 200/90 H 10/01/23 15:25 Pulse Oximetry 95 10/01/23 15:25 Temperature 97.2 F L 10/01/23 20:00 Pulse Rate 81 10/01/23 20:00 Respiratory Rate 18 10/01/23 20:00 Blood Pressure 148/94 H 10/01/23 20:00 Pulse Oximetry 100 10/01/23 20:00 Oxygen Delivery BiPAP 10/01/23 18:03 Oxygen Flow Rate 3 10/01/23 15:28 <Tracy Alston MD - Last Filed: 10/01/23 22:35> Lab Data Result diagrams: 10/01/23 15:46 10/01/23 15:46 <Gabo Iglesias PA-C - Last Filed: 10/01/23 18:42> Labs: Lab Results 10/01/23 Range/Units 15:46 WBC 12.7 H (4.5-10.0) K/mm3 RBC 3.75 L (4.2-5.4) M/mm3 Hgb 10.4 L (12.0-15.0) g/dL Hct 34.0 L (37.0-47.0) % MCV 90.7 (80-100) fl MCH 27.7 (26-34) pg MCHC 30.6 L (32-36) g/dl RDW 17.5 H (11.5-14.5) % Plt Count 410 H (150-375) k/mm3 MPV 10.5 H (7.4-10.4) fl Immature Gran % (Auto) 0.2 (0-0.5) % Neut % (Auto) 56.3 (45.5-73.1) % Lymph % (Auto) 35.0 (18.3-44.2) % Morton % (Auto) 5.4 (2.6-8.5) % Eos % (Auto) 2.7 (0-4.4) % Baso % (Auto) 0.4 (0.2-1.2) % Lymph # (Auto) 4.43 H (0.9-3.2) K/mm3 Morton # (Auto) 0.7 H (0.1-0.6) K/mm3 Eos # (Auto) 0.3 (0-0.3) K/mm3 Baso # (Auto) 0.1 (0.0-0.1) K/mm3 Abs Immat Gran (auto) 0.03 (0.00-0.031) K/mm3 Absolute Neuts (auto) 7.1 H (1.3-6.7) K/mm3 Absolute Nucleated RBC 0.000 (0.0-0.012) K/mm3 Nucleated RBC % 0.0 (0.0-0.2) % D-Dimer 0.57 H (<0.48) ug/mL Sodium 141 (137-145) mmol/L Potassium 3.2 L (3.4-5.0) mmol/L Chloride 100 (98-107) mmol/L Carbon Dioxide 36 H (22-30) mmol/L Anion Gap 5 (4-12) mmol/L BUN 13 (7-17) mg/dL Creatinine 1.30 H (0.7-1.0) mg/dL Estim Creat Clear Calc 28 ml/min Estimated GFR 48 L (59 - ) Glucose 97 (65-110) mg/dL Calcium 9.2 (8.4-10.2) mg/dL Total Bilirubin 0.5 (0.2-1.3) mg/dL AST 20 (14-36) U/L ALT 13 (6-35) U/L Alkaline Phosphatase 117 (38-126) U/L Troponin I < 0.012 (0.000-0.034) ng/mL Total Protein 7.0 (6.3-8.2) g/dL Albumin 4.2 (3.5-5.1) g/dL <Gabo Iglesias PA-C - Last Filed: 10/01/23 18:42> Lab Results 10/01/23 Range/Units 15:46 WBC 12.7 H (4.5-10.0) K/mm3 RBC 3.75 L (4.2-5.4) M/mm3 Hgb 10.4 L (12.0-15.0) g/dL Hct 34.0 L (37.0-47.0) % MCV 90.7 (80-100) fl MCH 27.7 (26-34) pg MCHC 30.6 L (32-36) g/dl RDW 17.5 H (11.5-14.5) % Plt Count 410 H (150-375) k/mm3 MPV 10.5 H (7.4-10.4) fl Immature Gran % (Auto) 0.2 (0-0.5) % Neut % (Auto) 56.3 (45.5-73.1) % Lymph % (Auto) 35.0 (18.3-44.2) % Morton % (Auto) 5.4 (2.6-8.5) % Eos % (Auto) 2.7 (0-4.4) % Baso % (Auto) 0.4 (0.2-1.2) % Lymph # (Auto) 4.43 H (0.9-3.2) K/mm3 Morton # (Auto) 0.7 H (0.1-0.6) K/mm3 Eos # (Auto) 0.3 (0-0.3) K/mm3 Baso # (Auto) 0.1 (0.0-0.1) K/mm3 Abs Immat Gran (auto) 0.03 (0.00-0.031) K/mm3 Absolute Neuts (auto) 7.1 H (1.3-6.7) K/mm3 Absolute Nucleated RBC 0.000 (0.0-0.012) K/mm3 Nucleated RBC % 0.0 (0.0-0.2) % D-Dimer 0.57 H (<0.48) ug/mL Sodium 141 (137-145) mmol/L Potassium 3.2 L (3.4-5.0) mmol/L Chloride 100 (98-107) mmol/L Carbon Dioxide 36 H (22-30) mmol/L Anion Gap 5 (4-12) mmol/L BUN 13 (7-17) mg/dL Creatinine 1.30 H (0.7-1.0) mg/dL Estim Creat Clear Calc 28 ml/min Estimated GFR 48 L (59 - ) Glucose 97 (65-110) mg/dL Calcium 9.2 (8.4-10.2) mg/dL Total Bilirubin 0.5 (0.2-1.3) mg/dL AST 20 (14-36) U/L ALT 13 (6-35) U/L Alkaline Phosphatase 117 (38-126) U/L Troponin I < 0.012 (0.000-0.034) ng/mL Total Protein 7.0 (6.3-8.2) g/dL Albumin 4.2 (3.5-5.1) g/dL <Tracy Alston MD - Last Filed: 10/01/23 22:35> ABG Data ABG results: 10/01/23 16:25 Puncture Site Right radial ABG pH 7.383 ABG pCO2 56.9 H ABG pO2 147.9 H ABG PO2/FiO2 Ratio 4.62 ABG HCO3 33.1 H ABG O2 Saturation 98.8 ABG O2 Content 16.3 ABG Base Excess 6.6 A-a Gradient 13.7 Oxyhemoglobin 97.6 Total Hemoglobin 11.7 L O2 Delivery Device Nasal cannula O2 Liters/Min 3.0 FiO2 32 <Gabo Iglesias PA-C - Last Filed: 10/01/23 18:42> 10/01/23 16:25 Puncture Site Right radial ABG pH 7.383 ABG pCO2 56.9 H ABG pO2 147.9 H ABG PO2/FiO2 Ratio 4.62 ABG HCO3 33.1 H ABG O2 Saturation 98.8 ABG O2 Content 16.3 ABG Base Excess 6.6 A-a Gradient 13.7 Oxyhemoglobin 97.6 Total Hemoglobin 11.7 L O2 Delivery Device Nasal cannula O2 Liters/Min 3.0 FiO2 32 <Tracy Alston MD - Last Filed: 10/01/23 22:35> Critical Care Time Critical Care Time Critical Care Time: Yes <Gabo Iglesias PA-C - Last Filed: 10/01/23 18:42> Total Critical Care Time: 35 <Gabo Iglesias PA-C - Last Filed: 10/01/23 18:42> Discharge Plan Discharge Clinical Impression: COPD exacerbation, Acute hypercapnic respiratory failure <Gabo Iglesias PA-C - Last Filed: 10/01/23 18:42> Patient Disposition: Still a Patient <Gabo Iglesias PA-C - Last Filed: 10/01/23 18:42> Condition: Stable <Gabo Iglesias PA-C - Last Filed: 10/01/23 18:42>
[2023-10-01 16:15] LABS: Alanine Aminotransferase 13 U/L (6-35); Albumin Level 4.2 g/dL (3.5-5.1); Alkaline Phosphatase 117 U/L (38-126); Anion Gap 5 mmol/L (4-12); Aspartate Amino Transferase 20 U/L (14-36); Bilirubin,Total 0.5 mg/dL (0.2-1.3); Blood Urea Nitrogen 13 mg/dL (7-17); Calcium 9.2 mg/dL (8.4-10.2); Carbon Dioxide 36 mmol/L (22-30); Chloride 100 mmol/L (98-107); Estimated CRCL calculation 28 ml/min; Estimated Glomerular Filt Rate 48; Glucose 97 mg/dL (65-110); Potassium 3.2 mmol/L (3.4-5.0); Sodium 141 mmol/L (137-145)
[2023-10-01] MEDS: ALBUTEROL SULFATE NEB 2.5 MG/3 ML INH 10 MG INHALATION (16:23)
[2023-10-01] MEDS: IPRATROPIUM BR 0.02% INH SOLN 0.5 MG/2.5 ML VIAL 1 MG INHALATION (16:24)
[2023-10-01] MEDS: methylPREDNISolone SOD SUCC 125 MG VIAL IV PUSH (16:25)
[2023-10-01 16:31] LABS: Alveolar/Arterial O2 Gradient 13.7 mmHg; Base Excess ABG 6.6 mEq/l (+/-2.0); Fractional Inspired Oxygen 32 %; HCO3 ABG 33.1 mEq/l (22.0-26.0); Oxygen Content ABG 16.3 %vol (16.0-22.0); Oxygen Saturation ABG 98.8 % (95.0-100.0); Oxyhemoglobin 97.6 % THb (90.0-100.0); PCO2 ABG 56.9 mmHg (35.0-45.0); PO2 ABG 147.9 mmHg (80.0-100.0); PO2 FiO2 Ratio Arterial Blood 4.62 %; Total Hemoglobin 11.7 g/dL (12.0-18.0); pH ABG 7.383 (7.350-7.450)
[2023-10-01 16:38] LABS: Device NASAL CANNULA; Modified Allen's Test Pass; Site Drawn RIGHT RADIAL
[2023-10-01 16:52] LABS: Troponin I < 0.012 ng/mL (0.000-0.034)
[2023-10-01 16:55] LABS: D Dimer 0.57 ug/mL (<0.48)
--- NOTE | 2023-10-01 16:55 | PC.NURSE ---
Pt c/o SOB continued while on breathing treatment. [facility] EDP at bedside, RT called. Pt placed on bipap.
[2023-10-01 17:59] LABS: Alveolar/Arterial O2 Gradient 65.6 mmHg; Base Excess ABG 6.2 mEq/l (+/-2.0); Carboxyhemoglobin 0.2 % THb (0-2.0); Fractional Inspired Oxygen 30 %; HCO3 ABG 32.6 mEq/l (22.0-26.0); Oxygen Saturation ABG 95.9 % (95.0-100.0); Oxyhemoglobin 95.2 % THb (90.0-100.0); PCO2 ABG 55.3 mmHg (35.0-45.0); PO2 ABG 83.3 mmHg (80.0-100.0); PO2 FiO2 Ratio Arterial Blood 2.78 %; Reduced Hemoglobin 4.6 %THb (0-5.0); Total Hemoglobin 11.9 g/dL (12.0-18.0); pH ABG 7.388 (7.350-7.450)
[2023-10-01 18:01] LABS: Device NON-INVASIVE VENT; Modified Allen's Test Pass; Non-Invasive Inspiratory Pressure 14 CMH2O; Non-Invasive Vent Rate 18 /MIN; Site Drawn RIGHT RADIAL
[2023-10-01 18:02] LABS: Non-Invasive Expiratory Pressure 6 CMH2O
[2023-10-01] MEDS: MAGNESIUM SULF 1 GM/D5W 100 ML 1 GM/100 ML BAG IVPB (18:08)
--- NOTE | 2023-10-01 19:30 | ADMGEN ---
This patient, Laxmi Colon, was admitted to IMU Room 205-01. Patient/family oriented to hospital policies and general routines including ID bracelet, bed and alarms, visiting hours, pain management, procedures, bathroom and other care routines, personal items, smoking policy, room service/diet, and visiting hours. Information on how to activate the Rapid Response Team has been discussed. Patient/Family are encouraged to report perceived risks to care and to ask questions if they do not understand what they are told or what they should do.
[2023-10-01] MEDS: levoFLOXacin 750 MG/D5W 150 ML 750 MG/150 ML BAG 100 MG IVPB (21:34)
[2023-10-01] MEDS: methylPREDNISolone SOD SUCC 125 MG VIAL 60 MG IV PUSH (22:47)
[2023-10-02] VITALS (31 sets, daily range): BP systolic 122–168; BP diastolic 53–75; PULSE 64–92; RESP 18–31; TEMP 36.3–36.8; O2SAT 98–100
--- NOTE | 2023-10-02 00:02 | PM.IMHP ---
H&P: HPI History of Present Illness Date/Time: 10/02/23 00:02 Chief Complaint: Shortness of breath Narrative: 77-year-old female with a past medical history of COPD with chronic hypoxic hypercarbic respiratory failure, obstructive sleep apnea, prior respiratory failure requiring intubation in 2020, essential hypertension, hypo thyroidism and restless leg syndrome who presented to the ER with acute sudden onset of shortness of breath. The patient reports that she did not have any preceding symptoms such as cough, fever, chills orthopnea or paroxysmal nocturnal dyspnea. The only factor that head change was that her CPAP mask had cracked and she was unable to use it the night before. She then got up and was trying to do chores. She did try her rescue inhaler without relief. She has received several nebulizers since coming to the hospital and she reports that she never really gets any significant relief from nebulizers either. She reports that her lungs feel back to their baseline. She reports that she was actually on the phone with her [facility] [facility] health company when she became so short of breath that they encouraged her to call EMS. She would did try to put her CPAP mask on prior to calling EMS but was unsuccessful due to her distress. She was placed on BiPAP in the ER given a dose of Solu-Medrol and magnesium. Her respiratory symptoms improved quickly. The patient's ABG in the ER demonstrated chronic hypercapnic respiratory failure but with compensated pH. At the time of my evaluation she was breathing 12-16 times a minute and was in no distress. She is actually eager to go home and thinks that she will do fine as long as she can get her CPAP mask replaced before she goes to bed. Source of information is from patient report, review of past medical records and ER physician report. The patient is a good historian. Current plan of care was discussed and questions were answered. Review of Systems Review of Systems: 12 systems were reviewed with pertinent positives and negatives per HPI. Except as documented in the HPI, all other systems were reviewed and are negative. [facility] Past Medical History Medical History (Updated 10/02/23 @ 05:31 by Marycarmen Wahl DO) Chronic respiratory failure with hypoxia and hypercapnia On home O2 of 3 L and nighttime PAP therapy COPD (chronic obstructive pulmonary disease) Diastolic dysfunction Grade 1 Diastolic dysfunction noted on echocardiogram from 2020 repeat echo in 2022 demonstrated EF of 70% with indeterminate diastolic function with mild pulmonary hypertension with RVSP of 38 Elevated lipids H/O vaginal delivery History of heart attack History of tobacco use Hypertension Hypothyroidism Lung nodule CHERYL on CPAP Renal mass Thyroid disease Surgical History Surgical History (Updated 10/02/23 @ 05:28 by Marycarmen Wahl DO) History of cholecystectomy History of total abdominal hysterectomy and bilateral salpingo-oophorectomy History of tubal ligation Status post extracapsular cataract extraction of left eye Family History Family History Mother Hypertension Sibling Family history of malignant neoplasm of kidney Family history of lung cancer Lung disease Social History Social History (Updated 10/02/23 @ 05:27 by Marycarmen Wahl DO) Social History: Currently lives with in [place]. They have been since 1965 Surrogate decisionmaker: William, . Full Code. Retired from [employer]. Patient has 3 children. Smoking packs per day: 1 Smoking cigarettes per day: 20.0 Years smoked: 54 Smoking pack-years: 54.00 Smoking status: Former smoker Tobacco type: cigarettes Smoking end date: 10/27/18 Alcohol intake: never Substance use: never Do You Feel Safe in your Home?: Yes Lack of Transportation: No Lack of Food: Never True Current Housing: I Have Housing Concerned About Future Housing: No Difficulty Paying Gas/Electric Bills: No Difficulty Paying for Meds: No Currently Unemployed: No Education: Decline to Answer Difficulty w/ Childcare or Family Care: No Living arrangements: with family Occupation/Education: retired Gender identity (if verbalized by the patient): Female Spiritual care concerns: No Meds Home Medications and Allergies Home Medications Medication Instructions Recorded Confirmed Type atorvastatin 40 mg tablet 40 mg PO DAILY 05/05/19 10/01/23 History aspirin 81 mg tablet,delayed 81 mg PO DAILY 05/06/19 10/01/23 History release calcium carbonate 600 mg PO BID 05/06/19 10/01/23 History levothyroxine 50 mcg tablet 50 mcg PO DAILY 05/06/19 10/01/23 History ropinirole 0.25 mg tablet 0.25 mg PO DAILY 02/23/23 10/01/23 History albuterol sulfate 2.5 mg/3 mL 2.5 mg (3 mL) inhalation Q4HRT PRN 03/05/23 10/01/23 Rx (0.083 %) solution for nebulization Shortness Of Breath #15 mL albuterol sulfate 90 mcg/actuation 1 puff inhalation Q4H PRN 03/25/23 10/01/23 Rx aerosol inhaler shortness of breath, wheezing #8.5 grams hydroxyzine HCl 25 mg tablet 25 mg PO HS PRN Anxiety #0 tabs 03/25/23 10/01/23 Rx Allergies Allergy/AdvReac Type Severity Reaction Status Date / Time No Known Allergies Allergy Verified 05/21/23 15:52 Vital Signs Vital Signs - 24 hr 10/01/23 15:25 10/01/23 15:28 10/01/23 15:28 Temperature 98.9 F Pulse Rate 90 91 Respiratory Rate 30 H 28 H Blood Pressure 200/90 H Pulse Oximetry 95 97 92 Oxygen Delivery Nasal Cannula Oxygen Flow Rate 3 10/01/23 15:30 10/01/23 15:31 10/01/23 15:45 Temperature Pulse Rate 82 82 72 Respiratory Rate 21 H 20 25 H Blood Pressure 200/90 H 193/85 H Pulse Oximetry 100 100 100 Oxygen Delivery Oxygen Flow Rate 10/01/23 15:47 10/01/23 16:10 10/01/23 16:35 Temperature Pulse Rate 72 76 76 Respiratory Rate 23 H 23 H 23 H Blood Pressure 170/85 H Pulse Oximetry 100 100 Oxygen Delivery Oxygen Flow Rate 10/01/23 17:11 10/01/23 17:00 10/01/23 16:15 Temperature Pulse Rate 98 98 77 Respiratory Rate 25 H 29 H 27 H Blood Pressure Pulse Oximetry 96 100 Oxygen Delivery BiPAP Oxygen Flow Rate 10/01/23 17:08 10/01/23 18:02 10/01/23 18:03 Temperature Pulse Rate 100 80 81 Respiratory Rate 23 H 18 19 Blood Pressure 167/90 H 149/70 H Pulse Oximetry 100 100 100 Oxygen Delivery BiPAP Oxygen Flow Rate 10/01/23 18:56 10/01/23 20:00 10/01/23 20:00 Temperature 97.2 F L Pulse Rate 77 81 81 Respiratory Rate 18 18 18 Blood Pressure 139/70 148/94 H Pulse Oximetry 100 100 100 Oxygen Delivery BiPAP Oxygen Flow Rate Exam Narrative: Weight 59 kg BMI 22.3 Const: Other: No acute distress, thin body habitus HENMT: Other: Mucous membranes are tacky but oral exam limited as patient has BiPAP in place, edentulous in upper and lower jaw Eyes: Other: Pupils are equal and reactive evidence of left cataract lens replacement, no scleral icterus Neck: Other: Mild JVD, supple, nontender Resp: Other: Markedly decreased breath sounds throughout all lung ralph, no increased work of breathing, on BiPAP 14/6 rate of 18 30% Cardio: Other: Regular rate, regular rhythm, 2+ bilateral radial pedal pulses, distant heart sounds that her almost impossible to auscultation GI: Other: Soft, nontender, nondistended, positive bowel sounds Skin: Other: No jaundice, no pallor Neuro: Other: Alert orient x4, speech is clear, difficult to assess for facial asymmetry due to presence of BiPAP, no gross motor deficits noted during the course of conversation Extrem: Other: Moves all extremities equally, no clubbing, cyanosis or edema Psych: Other: Appropriate mood and affect, pleasant and cooperative, judgment and insight intact H&P: Results Labs Labs: Laboratory Tests 10/01/23 15:46 10/01/23 15:46 10/01/23 10/01/23 10/01/23 15:46 16:25 17:56 WBC 12.7 H RBC 3.75 L Hgb 10.4 L Hct 34.0 L MCV 90.7 MCH 27.7 MCHC 30.6 L RDW 17.5 H Plt Count 410 H MPV 10.5 H Immature Gran % (Auto) 0.2 Neut % (Auto) 56.3 Lymph % (Auto) 35.0 [place] % (Auto) 5.4 Eos % (Auto) 2.7 Baso % (Auto) 0.4 Lymph # (Auto) 4.43 H [place] # (Auto) 0.7 H Eos # (Auto) 0.3 Baso # (Auto) 0.1 Abs Immat Gran (auto) 0.03 Absolute Neuts (auto) 7.1 H Absolute Nucleated RBC 0.000 Nucleated RBC % 0.0 D-Dimer 0.57 H Puncture Site Right radial Right radial ABG pH 7.383 7.388 ABG pCO2 56.9 H 55.3 H ABG pO2 147.9 H 83.3 ABG PO2/FiO2 Ratio 4.62 2.78 ABG HCO3 33.1 H 32.6 H ABG O2 Saturation 98.8 95.9 ABG O2 Content 16.3 16.0 ABG Base Excess 6.6 6.2 A-a Gradient 13.7 65.6 Oxyhemoglobin 97.6 95.2 Carboxyhemoglobin 0.2 Methemoglobin 0.0 Reduced Hemoglobin 4.6 Total Hemoglobin 11.7 L 11.9 L O2 Delivery Device Nasal cannula Non-invasive vent O2 Liters/Min 3.0 Not Reportable Vent Rate 18 FiO2 32 30 Expiratory Pressure 6 Inspiratory Pressure 14 Sodium 141 Potassium 3.2 L Chloride 100 Carbon Dioxide 36 H Anion Gap 5 BUN 13 Creatinine 1.30 H Estim Creat Clear Calc 28 Estimated GFR 48 L Glucose 97 Calcium 9.2 Total Bilirubin 0.5 AST 20 ALT 13 Alkaline Phosphatase 117 Troponin I < 0.012 Total Protein 7.0 Albumin 4.2 Impressions Chest X-Ray 10/01/23 16:09 IMPRESSION: Subsegmental bibasilar atelectasis/consolidation and scarring. Severe emphysema. Assessment and Plan Assessment and plan (1) COPD exacerbation: Code(s): J44.1 - Chronic obstructive pulmonary disease with (acute) exacerbation Status: Acute (2) CHERYL on CPAP: Code(s): G47.33 - Obstructive sleep apnea (adult) (pediatric) Status: Acute (3) Hypokalemia: Code(s): E87.6 - Hypokalemia Status: Acute Plan Patient had acute on chronic hypoxic respiratory failure with respiratory distress. Possibly due to COPD exacerbation versus decompensation did due to not having her CPAP available the prior night due to her broken mask. Patient is feeling better on BiPAP. Will give the patient break from BiPAP in a.m. and see how she does. If symptoms are still stable without evidence of return of symptoms she may get to go home as she desires to do. However, will continue steroids currently but dose has been decreased to 40 mg q.8 hours. Will decrease nebulizer frequency down to q.6 hours. The patient does have some mild leukocytosis but x-ray is not indicative of infection. Patient received Levaquin in the ER but given lack of infectious symptoms will not continue. Leukocytosis likely due to the margination from acute stress. Will repeat CBC in a.m.. Patient did have some mild hypokalemia. I do not see where she had any potassium supplements given in the ER. Will give 40 mEq potassium chloride now (05:40). We will repeat potassium level at 10:00. Patient has been admitted as observation status. Quality VTE Prophylaxis VTE prophylaxis: pharmacologic ordered (Lovenox 40 mg subQ daily.)
[2023-10-02] MEDS: IPRATROPIUM 0.5 MG/ALBUTEROL SULFATE 2.5 MG AMPUL.NEB 3 ML INHALATION ×5 (00:30→20:35)
--- NOTE | 2023-10-02 01:50 | PCRCNOTE ---
Window of time for administration has passed. See next scheduled administration.
[2023-10-02] MEDS: LEVOTHYROXINE SODIUM 50 MCG TABLET PO (06:22)
[2023-10-02] MEDS: methylPREDNISolone SOD SUCC 125 MG VIAL 40 MG IV PUSH ×2 (06:23→14:53)
[2023-10-02] MEDS: POTASSIUM CHLORIDE 20 MEQ PACKET (FOR LIQUID) 40 MEQ PO (06:27)
[2023-10-02] MEDS: ASPIRIN 81 MG ENTERIC TABLET PO (09:00)
[2023-10-02] MEDS: ENOXAPARIN 40 MG/0.4 ML SYRINGE SUB-Q (09:00)
[2023-10-02] MEDS: CALCIUM CARBONATE (OSCAL) 500 MG TABLET PO ×2 (09:00→17:14)
[2023-10-02] MEDS: ATORVASTATIN 40 MG TABLET PO (09:00)
[2023-10-02] MEDS: rOPINIRole HCL 0.25 MG TABLET PO (09:00)
[2023-10-02 09:52] LABS: Hemoglobin 11.1 g/dL (12.0-15.0); Mean Corpuscular HGB Conc 30.8 g/dl (32-36); Mean Corpuscular Hemoglobin 27.8 pg (26-34); Mean Corpuscular Volume 90.2 fl (80-100); Mean Platelet Volume 10.7 fl (7.4-10.4); Platelet Count Result 429 k/mm3 (150-375); Red Blood Count 3.99 M/mm3 (4.2-5.4); White Blood Count 12.8 K/mm3 (4.5-10.0)
[2023-10-02 09:58] LABS: Influenza A QL RT-PCR Negative (Negative); Influenza B QL RT-PCR Negative (Negative); RSV RNA, RT-PCR Negative (Negative); SARS-CoV-2 RNA PCR Negative (Negative)
[2023-10-02 10:07] LABS: Anion Gap 9 mmol/L (4-12); Blood Urea Nitrogen 17 mg/dL (7-17); Calcium 10.2 mg/dL (8.4-10.2); Carbon Dioxide 34 mmol/L (22-30); Chloride 99 mmol/L (98-107); Estimated CRCL calculation 31 ml/min; Estimated Glomerular Filt Rate 53; Glucose 184 mg/dL (65-110); Potassium 4.4 mmol/L (3.4-5.0); Sodium 142 mmol/L (137-145)
--- NOTE | 2023-10-02 15:49 | P.PNIM_ITS ---
Progress Note: A&P Assessment and Plan (1) Acute and chronic respiratory failure: Qualifiers: Respiratory failure complication: hypoxia Qualified Code(s): J96.21 - Acute and chronic respiratory failure with hypoxia Code(s): J96.20 - Acute and chronic respiratory failure, unspecified whether with hypoxia or hypercapnia Status: Acute Assessment and Plan: Patient had acute on chronic hypoxic respiratory failure with respiratory distress. Chest x-ray shows subsegmental bibasilar atelectasis versus consolidation and scarring as well as severe emphysema. White count mildly elevated but unchanged on repeat. DDimer mildly elevated but LE venous doppler negative for DVT. PE less likely with the more likely etiology being from possibly due to COPD exacerbation versus decompensation due to not having her CPAP available the prior night due to her broken mask. Will give IV fluids to try to improve her renal function and may have CTA in the morning. ABG 7.38/57/148 on 3 L. She may not need as much oxygen at home. She wears 3L O2 at home and is at her baseline. Will wean steroids further. Home o2 evaluation. Home if she has replacement mask at home. (2) COPD exacerbation: Code(s): J44.1 - Chronic obstructive pulmonary disease with (acute) exacerbation Status: Acute Assessment and Plan: Possible COPD exacerbatuion. No wheezing apprecaited today Wean steroids Continue bronchodilators Home O2 eval tomorrow (3) CHERYL on CPAP: Code(s): G47.33 - Obstructive sleep apnea (adult) (pediatric) Status: Acute Assessment and Plan: Compliant with BiPAP at home until mask broke Will need to make sure she has a replacement mask at home before discharge (4) Hypokalemia: Code(s): E87.6 - Hypokalemia Status: Acute Assessment and Plan: Potassium 3.2 and was replaced Repeat values better. Plan DVT prophylaxis - Lovenox Code status - full Subjective Date/time seen: 10/02/23 15:49 Interval history: 77yo female with COPD with chronic hypoxic hypercarbic respiratory failure, obstructive sleep apnea, prior respiratory failure requiring intubation in 2020, essential hypertension, hypothyroidism and restless leg syndrome who presented to the ER with acute sudden onset of shortness of breath.?? SOB is better. Tolerated the bipap overnight. No cough. She wears 3L O2 at home at all times. She is compliant with bipap at home. Exam Narrative: AF 98.2 168/75 82 20 100% 3L Gen - NARD lying semi-recumbent in bed Chest - distant BS, no wheezing CV - RRR S1/S2; tele showing episode of narrow complex mostly regular possibly SVT Abd - soft NT/ND Ext - no pedal edema Neuro - Alert and appropriate Psych - Nml mood and affect Skin - Warm and dry Objective Data Vital Signs Vital Signs: Vital Signs - 24 hr 10/01/23 16:10 10/01/23 16:35 10/01/23 17:11 Temperature Pulse Rate 76 76 98 Respiratory Rate 23 H 23 H 25 H Blood Pressure Pulse Oximetry 100 Oxygen Delivery Oxygen Flow Rate 10/01/23 17:00 10/01/23 16:15 10/01/23 17:08 Temperature Pulse Rate 98 77 100 Respiratory Rate 29 H 27 H 23 H Blood Pressure 167/90 H Pulse Oximetry 96 100 100 Oxygen Delivery BiPAP Oxygen Flow Rate 10/01/23 18:02 10/01/23 18:03 10/01/23 18:56 Temperature Pulse Rate 80 81 77 Respiratory Rate 18 19 18 Blood Pressure 149/70 H 139/70 Pulse Oximetry 100 100 100 Oxygen Delivery BiPAP Oxygen Flow Rate 10/01/23 20:00 10/01/23 20:00 10/02/23 00:07 Temperature 97.2 F L 97.6 F Pulse Rate 81 81 72 Respiratory Rate 18 18 18 Blood Pressure 148/94 H 122/53 L Pulse Oximetry 100 100 100 Oxygen Delivery BiPAP Oxygen Flow Rate 10/02/23 00:00 10/01/23 19:20 10/02/23 00:30 Temperature Pulse Rate 72 77 75 Respiratory Rate 18 20 22 H Blood Pressure Pulse Oximetry 100 99 100 Oxygen Delivery BiPAP BiPAP BiPAP Oxygen Flow Rate 10/02/23 00:30 10/02/23 00:37 10/02/23 03:57 Temperature Pulse Rate 75 73 69 Respiratory Rate 18 18 26 H Blood Pressure Pulse Oximetry Oxygen Delivery Oxygen Flow Rate 10/02/23 04:06 10/02/23 03:55 10/01/23 20:00 Temperature Pulse Rate 69 69 94 Respiratory Rate 23 H 28 H Blood Pressure Pulse Oximetry 99 Oxygen Delivery BiPAP Oxygen Flow Rate 10/01/23 22:00 10/02/23 00:00 10/02/23 02:00 Temperature Pulse Rate 74 67 68 Respiratory Rate Blood Pressure Pulse Oximetry Oxygen Delivery Oxygen Flow Rate 10/02/23 04:43 10/02/23 04:00 10/02/23 04:00 Temperature 97.8 F Pulse Rate 64 64 69 Respiratory Rate 20 20 Blood Pressure 146/72 H Pulse Oximetry 100 100 Oxygen Delivery BiPAP Oxygen Flow Rate 10/02/23 06:00 10/02/23 07:05 10/02/23 07:05 Temperature Pulse Rate 77 79 79 Respiratory Rate 18 18 Blood Pressure Pulse Oximetry 100 Oxygen Delivery Nasal Cannula Oxygen Flow Rate 3 10/02/23 07:15 10/02/23 07:37 10/02/23 08:00 Temperature 97.4 F L Pulse Rate 81 84 Respiratory Rate 20 18 Blood Pressure 145/75 H Pulse Oximetry 100 100 Oxygen Delivery Nasal Cannula Oxygen Flow Rate 3 10/02/23 08:00 10/02/23 10:00 10/02/23 11:52 Temperature 98.2 F Pulse Rate 85 79 92 Respiratory Rate 28 H Blood Pressure 168/75 H Pulse Oximetry 100 Oxygen Delivery Oxygen Flow Rate 10/02/23 12:00 10/02/23 12:00 10/02/23 13:10 Temperature Pulse Rate 91 89 Respiratory Rate 20 Blood Pressure Pulse Oximetry 100 Oxygen Delivery Nasal Cannula Oxygen Flow Rate 3 10/02/23 13:20 10/02/23 14:00 Temperature Pulse Rate 88 82 Respiratory Rate 20 Blood Pressure Pulse Oximetry Oxygen Delivery Oxygen Flow Rate Intake/Output Intake/Output: Intake & Output 09/29/23 09/30/23 10/01/23 10/02/23 23:59 23:59 23:59 23:59 Intake Total 220 680 Balance 220 680 Meds/Results Medications: Active Medications Generic Name Dose Route Start Last Admin Trade Name Freq PRN Reason Stop Dose Admin Albuterol/Ipratropium 3 ml 10/02/23 08:00 10/02/23 13:08 Ipratropium 0.5 Mg/Albuterol Sulfate 2.5 Mg Ampul.Neb 3 Ml INHALATION 3 ml Q6HRT BARBARA Administration Aspirin 81 mg 10/02/23 09:00 10/02/23 09:00 Aspirin 81 Mg Enteric Tablet PO 81 mg DAILY BARBARA Administration Atorvastatin Calcium 40 mg 10/02/23 09:00 10/02/23 09:00 Atorvastatin 40 Mg Tablet PO 40 mg DAILY BARBARA Administration Calcium Carbonate 500 mg 10/02/23 09:00 10/02/23 09:00 Calcium Carbonate (Oscal) 500 Mg Tablet PO 11/01/23 08:59 500 mg BID BARBARA Administration Enoxaparin Sodium 40 mg 10/02/23 09:00 10/02/23 09:00 Enoxaparin 40 Mg/0.4 Ml Syringe SUB-Q 40 mg DAILY BARBARA Administration Hydroxyzine HCl 25 mg 10/02/23 00:25 Hydroxyzine Hcl 25 Mg Tablet PO HS PRN Anxiety Levothyroxine Sodium 50 mcg 10/02/23 06:30 10/02/23 06:22 Levothyroxine Sodium 50 Mcg Tablet PO 50 mcg DAILY@0630 BARBARA Administration Methylprednisolone Sodium Succinate 40 mg 10/02/23 05:35 10/02/23 14:53 Methylprednisolone Sod Succ 125 Mg Vial IV PUSH 40 mg Q8HR BARBARA Administration Ropinirole HCl 0.25 mg 10/02/23 09:00 10/02/23 09:00 Ropinirole Hcl 0.25 Mg Tablet PO 0.25 mg DAILY BARBARA Administration Radiology Results: ITS Impressions Chest X-Ray 10/01/23 16:09 IMPRESSION: Subsegmental bibasilar atelectasis/consolidation and scarring. Severe emphysema. Venous Doppler Study 10/02/23 14:33 IMPRESSION: 1. No deep venous thrombosis. Labs Labs: Laboratory Results - last 24 hr 10/01/23 10/01/23 10/01/23 15:46 16:25 17:56 WBC 12.7 H RBC 3.75 L Hgb 10.4 L Hct 34.0 L MCV 90.7 MCH 27.7 MCHC 30.6 L RDW 17.5 H Plt Count 410 H MPV 10.5 H Immature Gran % (Auto) 0.2 Neut % (Auto) 56.3 Lymph % (Auto) 35.0 [place] % (Auto) 5.4 Eos % (Auto) 2.7 Baso % (Auto) 0.4 Lymph # (Auto) 4.43 H [place] # (Auto) 0.7 H Eos # (Auto) 0.3 Baso # (Auto) 0.1 Abs Immat Gran (auto) 0.03 Absolute Neuts (auto) 7.1 H Absolute Nucleated RBC 0.000 Nucleated RBC % 0.0 D-Dimer 0.57 H Puncture Site Right radial Right radial ABG pH 7.383 7.388 ABG pCO2 56.9 H 55.3 H ABG pO2 147.9 H 83.3 ABG PO2/FiO2 Ratio 4.62 2.78 ABG HCO3 33.1 H 32.6 H ABG O2 Saturation 98.8 95.9 ABG O2 Content 16.3 16.0 ABG Base Excess 6.6 6.2 A-a Gradient 13.7 65.6 Oxyhemoglobin 97.6 95.2 Carboxyhemoglobin 0.2 Methemoglobin 0.0 Reduced Hemoglobin 4.6 Total Hemoglobin 11.7 L 11.9 L O2 Delivery Device Nasal cannula Non-invasive vent O2 Liters/Min 3.0 Not Reportable Vent Rate 18 FiO2 32 30 Expiratory Pressure 6 Inspiratory Pressure 14 Sodium 141 Potassium 3.2 L Chloride 100 Carbon Dioxide 36 H Anion Gap 5 BUN 13 Creatinine 1.30 H Estim Creat Clear Calc 28 Estimated GFR 48 L Glucose 97 Calcium 9.2 Total Bilirubin 0.5 AST 20 ALT 13 Alkaline Phosphatase 117 Troponin I < 0.012 Total Protein 7.0 Albumin 4.2 Influenza A (RT-PCR) Influenza B (RT-PCR) RSV (RT-PCR) SARS-CoV-2 RNA (RT-PCR) 10/02/23 10/02/23 09:06 09:45 WBC 12.8 H RBC 3.99 L Hgb 11.1 L Hct 36.0 L MCV 90.2 MCH 27.8 MCHC 30.8 L RDW 18.0 H Plt Count 429 H MPV 10.7 H Immature Gran % (Auto) Neut % (Auto) Lymph % (Auto) [place] % (Auto) Eos % (Auto) Baso % (Auto) Lymph # (Auto) [place] # (Auto) Eos # (Auto) Baso # (Auto) Abs Immat Gran (auto) Absolute Neuts (auto) Absolute Nucleated RBC Nucleated RBC % D-Dimer Puncture Site ABG pH ABG pCO2 ABG pO2 ABG PO2/FiO2 Ratio ABG HCO3 ABG O2 Saturation ABG O2 Content ABG Base Excess A-a Gradient Oxyhemoglobin Carboxyhemoglobin Methemoglobin Reduced Hemoglobin Total Hemoglobin O2 Delivery Device O2 Liters/Min Vent Rate FiO2 Expiratory Pressure Inspiratory Pressure Sodium 142 Potassium 4.4 Chloride 99 Carbon Dioxide 34 H Anion Gap 9 BUN 17 Creatinine 1.20 H Estim Creat Clear Calc 31 Estimated GFR 53 L Glucose 184 H Calcium 10.2 Total Bilirubin AST ALT Alkaline Phosphatase Troponin I Total Protein Albumin Influenza A (RT-PCR) Negative Influenza B (RT-PCR) Negative RSV (RT-PCR) Negative SARS-CoV-2 RNA (RT-PCR) Negative
[2023-10-02] MEDS: SODIUM CHLORIDE 0.9% IV 1,000 ML 100 ML IV CONT (21:13)
[2023-10-03] VITALS (27 sets, daily range): BP systolic 121–176; BP diastolic 50–103; PULSE 59–109; RESP 18–28; TEMP 36.2–36.9; O2SAT 96–100
[2023-10-03] MEDS: IPRATROPIUM 0.5 MG/ALBUTEROL SULFATE 2.5 MG AMPUL.NEB 3 ML INHALATION ×2 (01:32→07:30)
[2023-10-03 04:45] LABS: Hematocrit 32.8 % (37.0-47.0); Hemoglobin 10.2 g/dL (12.0-15.0); Immature Granulocyte Absolute 0.15 K/mm3 (0.00-0.031); Immature Granulocyte Percent A 0.7 % (0-0.5); Lymphocytes Absolute Auto 1.05 K/mm3 (0.9-3.2); Lymphocytes Percent Auto 4.9 % (18.3-44.2); Mean Corpuscular HGB Conc 31.1 g/dl (32-36); Mean Corpuscular Volume 90.1 fl (80-100); Mean Platelet Volume 10.7 fl (7.4-10.4); Monocytes Percent Auto 4.6 % (2.6-8.5); Neutrophils Absolute Auto 19.2 K/mm3 (1.3-6.7); Neutrophils Percent Auto 89.8 % (45.5-73.1); Nucleated Red Blood Cells Perc 0.1 % (0.0-0.2); Platelet Count Result 408 k/mm3 (150-375); Red Blood Count 3.64 M/mm3 (4.2-5.4); Red Cell Distribution Width 17.9 % (11.5-14.5); White Blood Count 21.4 K/mm3 (4.5-10.0)
[2023-10-03 04:57] LABS: Albumin Level 4.2 g/dL (3.5-5.1); Anion Gap 6 mmol/L (4-12); Blood Urea Nitrogen 24 mg/dL (7-17); Carbon Dioxide 32 mmol/L (22-30); Chloride 103 mmol/L (98-107); Estimated CRCL calculation 28 ml/min; Estimated Glomerular Filt Rate 48; Glucose 146 mg/dL (65-110); Phosphorus 4.2 mg/dL (2.5-4.5); Potassium 4.1 mmol/L (3.4-5.0); Sodium 141 mmol/L (137-145)
[2023-10-03 05:15] LABS: Large Platelets Present; Platelet Estimate Increased (Adequate)
[2023-10-03 05:16] LABS: Anisocytosis 1+; Hypochromasia 1+; Ovalocytes 1+; Schistocytes None Seen; Stomatocytes 1+
[2023-10-03] MEDS: LEVOTHYROXINE SODIUM 50 MCG TABLET PO (05:46)
--- NOTE | 2023-10-03 08:05 | PM.IMPN ---
Progress Note: A&P Assessment and Plan (1) Acute and chronic respiratory failure: Qualifiers: Respiratory failure complication: hypoxia Qualified Code(s): J96.21 - Acute and chronic respiratory failure with hypoxia Code(s): J96.20 - Acute and chronic respiratory failure, unspecified whether with hypoxia or hypercapnia Status: Acute Assessment and Plan: Patient had acute on chronic hypoxic respiratory failure with respiratory distress. Chest x-ray shows subsegmental bibasilar atelectasis versus consolidation and scarring as well as severe emphysema. White count mildly elevated and climbed to 21K felt related to steroids DDimer was mildly elevated but LE venous doppler negative for DVT. PE being considered and she received 1L NS overnight for planned CTA today. Worsening SOB could be from CHF/pulm edema, PE or worsening hypercarbia since probably on too much oxygen (SpO2 98-100%). Will repeat CXR. Check ABG. Resume BiPAP now. Plan for CTA chest once she is more stable on bipap 35 minutes spent on critical care time (2) COPD exacerbation: Code(s): J44.1 - Chronic obstructive pulmonary disease with (acute) exacerbation Status: Acute Assessment and Plan: Possible COPD exacerbation on admission. No wheezing appreciated Weaned steroids to prednisone Continue bronchodilators Hold on home O2 evaluation (3) CHERYL on CPAP: Code(s): G47.33 - Obstructive sleep apnea (adult) (pediatric) Status: Acute Assessment and Plan: Compliant with BiPAP at home until mask broke Will need to make sure she has a replacement mask at home before discharge (4) Hypokalemia: Code(s): E87.6 - Hypokalemia Status: Acute Assessment and Plan: Potassium 3.2 and was replaced Repeat values normal. Plan DVT prophylaxis - Lovenox Code status - full Subjective Date/time seen: 10/03/23 08:05 Interval history: 77yo female with COPD, chronic hypoxic hypercarbic respiratory failure, CHERYL, prior respiratory failure requiring intubation in 2020, HTN, hypothyroidism and restless leg syndrome who presented to the ER with acute sudden onset of shortness of breath.?? Called to the room b/c patient with increasing SOB. She did well overnight. She tolerate the bipap. This morning toward the end of her neb treatment, she developed acute onset of shortness of breath. She is also having pleuritic mid sternal chest pain. No n/v. No radiation to the pain. Exam Narrative: AF 97.1 160/103 98 24 99% 3L Gen - tachycpneic with retratctions and conversational dyspnea. Chest - few basilar inspiratory rhonchi o/w distant BS; no wheezing CV - RRR S1/S2; tele showing no significant dysrhythmias Abd - soft NT/ND Ext - no pedal edema Neuro - Alert and appropriate Psych - uncomfortable and anxious Skin - Warm and dry. not diaphoretic Objective Data Vital Signs Vital Signs: Vital Signs - 24 hr 10/02/23 10:00 10/02/23 11:52 10/02/23 12:00 Temperature 98.2 F Pulse Rate 79 92 Respiratory Rate 28 H Blood Pressure 168/75 H Pulse Oximetry 100 100 Oxygen Delivery Nasal Cannula Oxygen Flow Rate 3 Fraction of Inspired Oxygen 10/02/23 12:00 10/02/23 13:10 10/02/23 13:20 Temperature Pulse Rate 91 89 88 Respiratory Rate 20 20 Blood Pressure Pulse Oximetry Oxygen Delivery Oxygen Flow Rate Fraction of Inspired Oxygen 10/02/23 14:00 10/02/23 15:58 10/02/23 16:00 Temperature 97.8 F Pulse Rate 82 86 86 Respiratory Rate 22 H Blood Pressure 151/75 H Pulse Oximetry 100 Oxygen Delivery Oxygen Flow Rate Fraction of Inspired Oxygen 10/02/23 16:00 10/02/23 18:00 10/02/23 20:00 Temperature 97.3 F L Pulse Rate 82 79 Respiratory Rate 18 Blood Pressure 147/64 H Pulse Oximetry 100 98 Oxygen Delivery Nasal Cannula Oxygen Flow Rate 3 Fraction of Inspired Oxygen 10/02/23 20:37 10/02/23 20:38 10/02/23 20:00 Temperature Pulse Rate 72 72 77 Respiratory Rate 31 H 31 H Blood Pressure Pulse Oximetry 98 Oxygen Delivery BiPAP Oxygen Flow Rate Fraction of Inspired Oxygen 10/02/23 20:00 10/02/23 22:00 10/02/23 20:47 Temperature Pulse Rate 76 75 Respiratory Rate 31 H Blood Pressure Pulse Oximetry 100 Oxygen Delivery BiPAP Oxygen Flow Rate Fraction of Inspired Oxygen 30 10/02/23 20:36 10/02/23 23:45 10/03/23 00:00 Temperature 97.8 F Pulse Rate 69 Respiratory Rate 22 H Blood Pressure 144/64 H Pulse Oximetry 98 98 98 Oxygen Delivery BiPAP BiPAP Oxygen Flow Rate Fraction of Inspired Oxygen 30 30 10/03/23 00:00 10/03/23 01:29 10/03/23 01:30 Temperature Pulse Rate 63 64 64 Respiratory Rate 18 18 Blood Pressure Pulse Oximetry 98 Oxygen Delivery BiPAP Oxygen Flow Rate Fraction of Inspired Oxygen 10/03/23 02:00 10/03/23 01:40 10/03/23 03:50 Temperature 97.3 F L Pulse Rate 70 66 68 Respiratory Rate 18 18 Blood Pressure 139/50 L Pulse Oximetry 98 Oxygen Delivery Oxygen Flow Rate Fraction of Inspired Oxygen 10/03/23 04:00 10/03/23 04:00 10/03/23 06:00 Temperature Pulse Rate 59 L 74 Respiratory Rate Blood Pressure Pulse Oximetry 100 Oxygen Delivery Nasal Cannula Oxygen Flow Rate 3 Fraction of Inspired Oxygen 10/03/23 07:51 Temperature 97.1 F L Pulse Rate 98 Respiratory Rate 24 H Blood Pressure 160/103 H Pulse Oximetry 99 Oxygen Delivery Oxygen Flow Rate Fraction of Inspired Oxygen Intake/Output Intake/Output: Intake & Output 09/30/23 10/01/23 10/02/23 10/03/23 23:59 23:59 23:59 23:59 Intake Total 220 1470 550 Output Total 0 Balance 220 1470 550 Meds/Results Medications: Active Medications Generic Name Dose Route Start Last Admin Trade Name Freq PRN Reason Stop Dose Admin Albuterol/Ipratropium 3 ml 10/02/23 08:00 10/03/23 07:30 Ipratropium 0.5 Mg/Albuterol Sulfate 2.5 Mg Ampul.Neb 3 Ml INHALATION 3 ml Q6HRT BARBARA Administration Aspirin 81 mg 10/02/23 09:00 10/02/23 09:00 Aspirin 81 Mg Enteric Tablet PO 81 mg DAILY BARBARA Administration Atorvastatin Calcium 40 mg 10/02/23 09:00 10/02/23 09:00 Atorvastatin 40 Mg Tablet PO 40 mg DAILY BARBARA Administration Calcium Carbonate 500 mg 10/02/23 09:00 10/02/23 17:14 Calcium Carbonate (Oscal) 500 Mg Tablet PO 11/01/23 08:59 500 mg BID BARBARA Administration Enoxaparin Sodium 40 mg 10/02/23 09:00 10/02/23 09:00 Enoxaparin 40 Mg/0.4 Ml Syringe SUB-Q 40 mg DAILY BARBARA Administration Hydroxyzine HCl 25 mg 10/02/23 00:25 Hydroxyzine Hcl 25 Mg Tablet PO HS PRN Anxiety Levothyroxine Sodium 50 mcg 10/02/23 06:30 10/03/23 05:46 Levothyroxine Sodium 50 Mcg Tablet PO 50 mcg DAILY@0630 BARBARA Administration Prednisone 40 mg 10/03/23 08:00 Prednisone 20 Mg Tablet PO 10/06/23 08:01 DAILY@0800 [facility] Ropinirole HCl 0.25 mg 10/02/23 09:00 10/02/23 09:00 Ropinirole Hcl 0.25 Mg Tablet PO 0.25 mg DAILY BARBARA Administration Radiology Results: ITS Impressions Chest X-Ray 10/01/23 16:09 IMPRESSION: Subsegmental bibasilar atelectasis/consolidation and scarring. Severe emphysema. Venous Doppler Study 10/02/23 14:33 IMPRESSION: 1. No deep venous thrombosis. Labs Labs: Laboratory Results - last 24 hr 10/02/23 10/02/23 10/03/23 09:06 09:45 04:13 WBC 12.8 H 21.4 H RBC 3.99 L 3.64 L Hgb 11.1 L 10.2 L Hct 36.0 L 32.8 L MCV 90.2 90.1 MCH 27.8 28.0 MCHC 30.8 L 31.1 L RDW 18.0 H 17.9 H Plt Count 429 H 408 H MPV 10.7 H 10.7 H Immature Gran % (Auto) 0.7 H Neut % (Auto) 89.8 H Lymph % (Auto) 4.9 L [place] % (Auto) 4.6 Eos % (Auto) 0.0 Baso % (Auto) 0.0 L Lymph # (Auto) 1.05 [place] # (Auto) 1.0 H Eos # (Auto) 0.0 Baso # (Auto) 0.0 Abs Immat Gran (auto) 0.15 H Absolute Neuts (auto) 19.2 H Absolute Nucleated RBC 0.020 H Nucleated RBC % 0.1 Platelet Estimate Increased Large Platelets Present Hypochromasia 1+ Anisocytosis 1+ Ovalocytes 1+ Stomatocytes 1+ Schistocytes None seen Sodium 142 141 Potassium 4.4 4.1 Chloride 99 103 Carbon Dioxide 34 H 32 H Anion Gap 9 6 BUN 17 24 H Creatinine 1.20 H 1.30 H Estim Creat Clear Calc 31 28 Estimated GFR 53 L 48 L Glucose 184 H 146 H Calcium 10.2 10.0 Phosphorus 4.2 Albumin 4.2 Influenza A (RT-PCR) Negative Influenza B (RT-PCR) Negative RSV (RT-PCR) Negative SARS-CoV-2 RNA (RT-PCR) Negative
[2023-10-03 08:26] LABS: Base Excess ABG 5.3 mEq/l (+/-2.0); Fractional Inspired Oxygen 28 %; HCO3 ABG 31.2 mEq/l (22.0-26.0); Oxygen Content ABG 15.4 %vol (16.0-22.0); Oxygen Saturation ABG 93.4 % (95.0-100.0); Oxyhemoglobin 92.3 % THb (90.0-100.0); PCO2 ABG 51.8 mmHg (35.0-45.0); PO2 ABG 68.5 mmHg (80.0-100.0); PO2 FiO2 Ratio Arterial Blood 2.45 %; Site Drawn LEFT RADIAL; Total Hemoglobin 11.8 g/dL (12.0-18.0); pH ABG 7.398 (7.350-7.450)
[2023-10-03 08:27] LABS: Device NON-INVASIVE VENT; Modified Allen's Test Pass; Non-Invasive Expiratory Pressure 6 CMH2O; Non-Invasive Inspiratory Pressure 14 CMH2O; Non-Invasive Vent Rate 18 /MIN
[2023-10-03] MEDS: rOPINIRole HCL 0.25 MG TABLET PO (09:07)
[2023-10-03] MEDS: ASPIRIN 81 MG ENTERIC TABLET PO (09:07)
[2023-10-03] MEDS: predniSONE 20 MG TABLET 40 MG PO (09:08)
[2023-10-03] MEDS: ENOXAPARIN 40 MG/0.4 ML SYRINGE SUB-Q (09:08)
[2023-10-03] MEDS: ATORVASTATIN 40 MG TABLET PO (09:08)
[2023-10-03] MEDS: CALCIUM CARBONATE (OSCAL) 500 MG TABLET PO ×2 (09:08→17:25)
[2023-10-03] MEDS: IPRATROPIUM BR 0.02% INH SOLN 0.5 MG/2.5 ML VIAL INHALATION ×2 (14:09→21:07)
[2023-10-03] MEDS: LEVALBUTEROL NEB 1.25 MG/3 ML 0.63 MG INHALATION ×2 (14:09→21:08)
[2023-10-04] VITALS (20 sets, daily range): BP systolic 133–154; BP diastolic 76–97; PULSE 67–100; RESP 14–25; TEMP 36.3–36.8; O2SAT 85–100
[2023-10-04] MEDS: IPRATROPIUM BR 0.02% INH SOLN 0.5 MG/2.5 ML VIAL INHALATION ×2 (03:09→09:28)
[2023-10-04] MEDS: LEVALBUTEROL NEB 1.25 MG/3 ML 0.63 MG INHALATION ×2 (03:10→09:28)
[2023-10-04 04:24] LABS: Basophils Percent Auto 0.1 % (0.2-1.2); Hemoglobin 11.3 g/dL (12.0-15.0); Immature Granulocyte Absolute 0.17 K/mm3 (0.00-0.031); Immature Granulocyte Percent A 0.8 % (0-0.5); Lymphocytes Absolute Auto 2.72 K/mm3 (0.9-3.2); Lymphocytes Percent Auto 13.3 % (18.3-44.2); Mean Corpuscular HGB Conc 31.4 g/dl (32-36); Mean Corpuscular Hemoglobin 28.3 pg (26-34); Mean Corpuscular Volume 90.2 fl (80-100); Mean Platelet Volume 10.5 fl (7.4-10.4); Monocytes Absolute Auto 1.2 K/mm3 (0.1-0.6); Neutrophils Absolute Auto 16.3 K/mm3 (1.3-6.7); Neutrophils Percent Auto 79.8 % (45.5-73.1); Nucleated Red Blood Cells Perc 0.1 % (0.0-0.2); Platelet Count Result 408 k/mm3 (150-375); Red Blood Count 3.99 M/mm3 (4.2-5.4); Red Cell Distribution Width 18.6 % (11.5-14.5); White Blood Count 20.4 K/mm3 (4.5-10.0)
[2023-10-04 04:37] LABS: Anion Gap 4 mmol/L (4-12); Blood Urea Nitrogen 25 mg/dL (7-17); CRP < 0.5 mg/dL (<1.0); Calcium 10.4 mg/dL (8.4-10.2); Carbon Dioxide 38 mmol/L (22-30); Chloride 101 mmol/L (98-107); Estimated CRCL calculation 27 ml/min; Estimated Glomerular Filt Rate 44; Glucose 126 mg/dL (65-110); Potassium 4.3 mmol/L (3.4-5.0); Sodium 143 mmol/L (137-145)
[2023-10-04 04:39] LABS: Anisocytosis 1+; Hypochromasia 1+; Ovalocytes 1+; Platelet Estimate Slightly Increased (Adequate); Schistocytes None Seen
[2023-10-04] MEDS: LEVOTHYROXINE SODIUM 50 MCG TABLET PO (06:16)
[2023-10-04] MEDS: rOPINIRole HCL 0.25 MG TABLET PO (08:14)
[2023-10-04] MEDS: ASPIRIN 81 MG ENTERIC TABLET PO (08:14)
[2023-10-04] MEDS: CALCIUM CARBONATE (OSCAL) 500 MG TABLET PO (08:14)
[2023-10-04] MEDS: predniSONE 20 MG TABLET 40 MG PO (08:14)
[2023-10-04] MEDS: ATORVASTATIN 40 MG TABLET PO (08:14)
[2023-10-04] MEDS: ENOXAPARIN 40 MG/0.4 ML SYRINGE SUB-Q (08:14)
--- NOTE | 2023-10-04 11:59 | HOMEO2EVAL ---
Evaluation was performed at [facility] Home Oxygen Evaluation RC: Home Oxygen (O2) Evaluation Start: 10/04/23 11:01 Freq: ONCE Status: Active Protocol: RPE Activity Type Activity Date Activity User E-sign Co-sign Detail Recorded Client Recorded Date Recorded By Document 10/04/23 11:15 [email or web address] [email or web address] 10/04/23 11:58 PKH Document 10/04/23 11:20 [email or web address] 10/04/23 11:58 PKH Document 10/04/23 11:25 [email or web address] [email or web address] 10/04/23 11:58 PKH Document 10/04/23 11:30 [email or web address] [email or web address] 10/04/23 11:58 PKH Document 10/04/23 11:35 PK [email or web address] 10/04/23 11:58 PK Document 10/04/23 11:50 PK [email or web address] 10/04/23 11:58 PKH 10/04/23 10/04/23 10/04/23 11:15 11:20 11:25 Home O2 Evaluation [Oxygen] -Test Phase Resting Exercise Exercise -Oxygen Delivery Room Air Room Air Nasal Cannula -Oxygen Flow Rate (L/min) 1 [Pulse Oximetry] -Pulse Oximetry (90-100 %) 92 85 L 86 L [Pulse Rate] -Pulse Rate (60-100 beats/min) 89 92 92 [Charges] -Evaluation Charges O2 Evaluation by Pulmonary 10/04/23 10/04/23 10/04/23 11:30 11:35 11:50 Home O2 Evaluation [Oxygen] -Test Phase Exercise Exercise Resting -Oxygen Delivery Nasal Cannula Nasal Cannula Room Air -Oxygen Flow Rate (L/min) 2 3 [Pulse Oximetry] -Pulse Oximetry (90-100 %) 87 L 92 92 [Pulse Rate] -Pulse Rate (60-100 beats/min) 91 93 90 [Charges] -Evaluation Charges
--- NOTE | 2023-10-04 12:00 | PCRCNOTE ---
HOME O2 OVAL COMPLETE. ROOM AIR AT REST 3LPM WITH ACTIVITY. RN NOTIFIED.
--- NOTE | 2023-10-04 12:46 | PM.DS ---
DS: Admitting Diagnosis Discharge Date 10/04/23 Admitting Diagnosis Shortness of breath DS: Discharge Diagnosis Discharge Diagnosis (1) Acute and chronic respiratory failure: Qualifiers: Respiratory failure complication: hypoxia Qualified Code(s): J96.21 - Acute and chronic respiratory failure with hypoxia Code(s): J96.20 - Acute and chronic respiratory failure, unspecified whether with hypoxia or hypercapnia Status: Acute (2) COPD exacerbation: Code(s): J44.1 - Chronic obstructive pulmonary disease with (acute) exacerbation Status: Acute (3) CHERYL on CPAP: Code(s): G47.33 - Obstructive sleep apnea (adult) (pediatric) Status: Acute (4) Hypokalemia: Code(s): E87.6 - Hypokalemia Status: Acute DS: Summary Hospital Course Reason for hospitalization: 77yo female with COPD, chronic hypoxic hypercarbic respiratory failure, CHERYL, prior respiratory failure requiring intubation in 2020, HTN, hypothyroidism and restless leg syndrome who presented to the ER with acute sudden onset of shortness of breath.??Please see H&P for details Hospital Course: Patient had acute on chronic hypoxic respiratory failure with respiratory distress.?Chest x-ray shows subsegmental bibasilar atelectasis versus consolidation and scarring as well as severe emphysema. White count mildly elevated and climbed to 21K felt related to steroids. CRP was normal. DDimer was mildly elevated but LE venous doppler negative for DVT. CTA was negative for PE and did show severe emphysema. Repeat CXR showing atelectasis bilateral LL and severe emphysema. ABG 7.39/52/68.5 on bipap. Possible COPD exacerbation on admission. No wheezing appreciated Was on IV steroids but weaned to prednisone. Patient was compliant with BiPAP at home until mask broke. She was given a mask here and instructed to contact her [employer] company for a replacement. She had a home O2 evaluation here showing room air at rest and 3L with activity. She was having increasing shortness of breath with Albuterol nebulizer so she was changed to Xopenex with benefit. She overall did well and was able to be discharged home 10/04/23. Status at Discharge Cognitive/behavioral status at discharge: stable Time Spent with Patient Time attestation: Total time spent providing and/or coordinating discharge services: 33 minutes Time spent: Greater than 30 minutes Exam Narrative: She feels 'great'. No problems overnight. SOB better. Tolerating bipap overnight. AF 98.3 154/76 82 14 100% ra Gen - NARD Chest - Distant BS, nml RR CV - RRR S1/S2 Abd - soft NT/ND Ext - no pedal edema Psych - normal mood and affect Skin - Warm and dry. not diaphoretic DS: Data Data Completed and Pending Labs on day of discharge: Labs from last 24 hours 10/04/23 03:49 WBC 20.4 H RBC 3.99 L Hgb 11.3 L Hct 36.0 L MCV 90.2 MCH 28.3 MCHC 31.4 L RDW 18.6 H Plt Count 408 H MPV 10.5 H Immature Gran % (Auto) 0.8 H Neut % (Auto) 79.8 H Lymph % (Auto) 13.3 L [place] % (Auto) 6.0 Eos % (Auto) 0.0 Baso % (Auto) 0.1 L Lymph # (Auto) 2.72 [place] # (Auto) 1.2 H Eos # (Auto) 0.0 Baso # (Auto) 0.0 Abs Immat Gran (auto) 0.17 H Absolute Neuts (auto) 16.3 H Absolute Nucleated RBC 0.020 H Nucleated RBC % 0.1 Platelet Estimate Slightly increased Hypochromasia 1+ Anisocytosis 1+ Ovalocytes 1+ Schistocytes None seen Sodium 143 Potassium 4.3 Chloride 101 Carbon Dioxide 38 H Anion Gap 4 BUN 25 H Creatinine 1.40 H Estim Creat Clear Calc 27 Estimated GFR 44 L Glucose 126 H Calcium 10.4 H C-Reactive Protein < 0.5 Discharge Plan Discharge Attending physician on discharge: Cash Navarrete Consulting providers: Gabo Iglesias Discharging Clinician: Cash Navarrete Anticipated Discharge Date/Time: 10/04/23 13:01 Patient Disposition: Home, Self-Care Activity: as tolerated Diet: regular Discharge Instructions: You do not require oxygen when at rest (like watching TV) but you need oxygen at 3L with activity. Continue to wear your CPAP/BiPAP at night, with naps and as needed for shortness of breath Take precautions to avoid falls. Rise slowly from a lying or sitting position. Pause before standing or walking. Contact your doctor or call 911 and come to the Emergency Room if you have increasing shortness of breath, lightheadedness with standing or other worrisome symptoms. Avoid NSAIDs (ibuprofen, naproxen, Aleve). Tylenol is safe to take. Follow-up with your primary care provider in 1-2 weeks. Please call for appointment. Thank you for using [facility] for your health care needs. Patient Instructions: Antibiotic Form, COPD (Chronic Obstructive Pulmonary Disease) (GEN) Stand Alone Forms: General Discharge Information Follow-up/Referrals: Sean German MD [Primary Care Provider] - Call for Appointment Discharge Medications: New prednisone 20 mg Tablet 40 mg PO DAILY@0800 2 Days Qty: 4 0RF levalbuterol HCl 1.25 mg/3 mL Solution For Nebulization 0.63 mg inhalation Q6HRT PRN (Reason: shortness of breath or wheezing) Qty: 72 0RF Continued atorvastatin 40 mg tablet 40 mg PO DAILY levothyroxine 50 mcg tablet 50 mcg PO DAILY calcium carbonate 600 mg calcium (1,500 mg) tablet 600 mg PO BID aspirin 81 mg tablet,delayed release (DR/EC) 81 mg PO DAILY ropinirole 0.25 mg tablet 0.25 mg PO DAILY hydroxyzine HCl 25 mg Tablet 25 mg PO HS PRN (Reason: Anxiety) Qty: 0 0RF albuterol sulfate 90 mcg/actuation HFA aerosol inhaler 1 puff inhalation Q4H PRN (Reason: shortness of breath, wheezing) Qty: 8.5 0RF Rx Instructions: USE 1 INHALATION BY MOUTH EVERY 4 HOURS Discontinued albuterol sulfate 2.5 mg /3 mL (0.083 %) Solution For Nebulization 2.5 mg inhalation Q4HRT PRN (Reason: Shortness Of Breath) Qty: 15 0RF Date of admission: 10/03/23 10:53 Primary Care Provider: Sean German Admitting Provider: Cash Navarrete Attending physician on admission: Cash Navarrete Condition: Stable
--- NOTE | 2023-10-07 13:56 | PC.NURSE ---
Pt left message that pharmacy did not receive order for her Levlbuterel. Informed Dr. Navarrete. Dr. Navarrete ordered Xoenex 1.25 mg every 6 hours prn SOB #60, no refills. Called to pt. pharmacy. Called pt with order.
== END 2023-10-04 13:40 | disposition home or self-care (01) | DRG 191 ==
LOC: ANHED 17:56 → ANHIMU 18:38
PROVIDERS: Emergency Medicine; Internal Medicine; Admitting Provider Internal Medicine; Emergency Provider Physician Assistant; PCP Emergency Medicine; Visit Provider Internal Medicine
DX: J44.1 Chronic obstructive pulmonary disease with (acute) exacerbation (principal); J96.11 Chronic respiratory failure with hypoxia; I10 Essential (primary) hypertension; E87.6 Hypokalemia; E03.9 Hypothyroidism, unspecified; E78.5 Hyperlipidemia, unspecified; I25.2 Old myocardial infarction; G25.81 Restless legs syndrome; G47.33 Obstructive sleep apnea (adult) (pediatric); Z20.822 Contact with and (suspected) exposure to COVID-19; Z87.891 Personal history of nicotine dependence
CPT/HCPCS: 36415; 36600; 71045; 71046; 71275; 80048; 80053; 80069; 82375; 82805; 83050; 84484; 85025; 85027; 85380; 86140; 87637; 93005; 93970; 94002; 94003; 94618; 94640; 96361; 96367; 96372; 96374; 96375; 96376; 99291; A9270; G0378; J1650; J1956; J2919; J3475; J7030; J7512; Q9967

== ENCOUNTER 2024-06-28 17:05 | Inpatient (IN) | payer MEDICARE, SELFPAY ==
[2024-06-28] VITALS (21 sets, daily range): BP systolic 111–215; BP diastolic 62–102; PULSE 67–104; RESP 17–28; TEMP 35.8–36.4; O2SAT 92–100; BMI 25.6
--- NOTE | ~2024-06-28 | XR_ITS ---
Portable chest x-ray Comparison: 07/07/2024 Clinical History: Respiratory failure Findings: Endotracheal tube, NG tube, and right-sided PICC line are in place. There is COPD with bib asilar scarring. There is mild worsening haziness left lung base. Cardiomediastinal silhouette is st able. Bones and soft tissues are unremarkable. Impression: COPD with bibasilar scarring. Worsening haziness left lung base. Correlate for developing pneumonia or asymmetric pulmonary edema. Support tubes, as above. Reviewed, dictated and finalized at location . ENTAL PAVING SUPERVISOR Impression: COPD with bibasilar scarring. Worsening haziness left lung base. Correlate for developing pneumonia or asymme tric pulmonary edema. Support tubes, as above.
--- NOTE | ~2024-06-28 | XR_ITS ---
EXAMINATION: XR chest PICC line DATE: 06/29/2024 12:34 INDICATION: PICC line placement TECHNIQUE: frontal view of the chest was obtained. COMPARISON: Chest radiograph dated 06/29/[address] dated 10/13/2023 FINDINGS: Right upper extremity peripherally inserted central venous catheter (PICC) tip at the mid superior v alice cava. Endotracheal tube tip 3.7 cm above the ramirez. Nasogastric tube extends below the left hem idiaphragm with distal tip collimated off the study. Hyperexpansion of the upper lungs are hyperlucent with architectural distortion and caudal displaceme nt of the sandra consistent with severe emphysema better appreciated on prior CT. Linear discoid atelec tasis/scarring extending horizontally across the right lower lung zone. Additional streaky and mild a irspace opacities in the bilateral lower lung zones likely combination of additional atelectasis and pulmonary vascular crowding although pneumonia not excludable. No pneumothorax or pleural effusion. H eart size is normal. Calcified right hilar lymph nodes consistent with old granulomatous disease. IMPRESSION: 1. Right PICC line tip at the mid superior vena cava. 2. Severe emphysema with opacities in the bilateral lower lung zones most likely atelectasis although pneumonia not excludable. Reviewed, dictated and finalized at location B. VIORAL HEALTH COUNSELOR IMPRESSION: 1. Right PICC line tip at the mid superior vena cava. 2. Severe emphysema with opacities in the bilateral lower lung zones most likel y atelectasis although pneumonia not excludable.
--- NOTE | ~2024-06-28 | XR_ITS ---
Portable chest x-ray Comparison: 07/08/2024 Clinical History: Respiratory failure Findings: Endotracheal tube, NG tube, and right-sided PICC line in place. There is mild haziness at the left lung base. There is linear right basilar scarring. Stable COPD pattern. Cardiomediastinal s ilhouette is stable. Bones and soft tissues are unremarkable. Impression: Persistent haziness left lung base, suspicious for pneumonia versus possibly asymmetric pulmonary amy ma. Underlying COPD. Stable support tubes. Reviewed, dictated and finalized at location . Y BLENDER Impression: Persistent haziness left lung base, suspicious for pneumonia versus possibly as ymmetric pulmonary edema. Underlying COPD. Stable support tubes.
--- NOTE | ~2024-06-28 | XR_ITS ---
Portable chest x-ray Comparison: 07/02/2024 Clinical History: Respiratory failure Findings: Endotracheal tube and NG tube and right-sided PICC line are in place. COPD pattern of the lungs present. There is probable linear right basilar scarring and linear left midlung scarring. Smal l bilateral pleural effusions are present versus chronic blunting of costophrenic angles. Cardiomedia stinal silhouette is stable. Bones and soft tissues are unremarkable. Impression: COPD with probable linear areas of bilateral scarring, as above. Possible small pleural effusions versus chronic blunting of the costophrenic angles. Support tubes, as above. Reviewed, dictated and finalized at location . STRIAL MAINTENANCE MANAGER Impression: COPD with probable linear areas of bilateral scarring, as above. Possible small pleural effusions versus chronic blunting of the costophrenic an gles. Support tubes, as above.
--- NOTE | ~2024-06-28 | XR_ITS ---
Portable chest x-ray Comparison: 07/16/2024 Clinical History: Respiratory failure Findings: Tracheostomy cannula and right-sided central venous lines are in place. Underlying COPD ag ain present. There is hazy bibasilar and left perihilar airspace disease, similar to mildly worsened from prior exam. Cardiomediastinal silhouette is stable. Bones and soft tissues are unremarkable. Impression: Bibasilar pulmonary edema versus pneumonia, left worse than right, probably mildly worsened from prio r exam. Underlying COPD. Support tubes, as above. Reviewed, dictated and finalized at location . E SPOOLER Impression: Bibasilar pulmonary edema versus pneumonia, left worse than right, probably mil dly worsened from prior exam. Underlying COPD. Support tubes, as above.
--- NOTE | ~2024-06-28 | CT_ITS ---
EXAMINATION: CT brain wo con DATE: 07/08/2024 10:07 INDICATION: Encephalopathy TECHNIQUE: Computed tomography (CT) of the head was performed without intravenous contrast. Sagittal and coronal reconstructions were performed. The mA was adjusted according to patient size. Iterative reconstruction technique was employed. The dose-length product was 681.00 mGy-cm. COMPARISON: CT dated 02/22/2014 FINDINGS: No acute intracranial hemorrhage, acute infarction or abnormal extra axial fluid collection. Symmetri c prominence of the sulci and subarachnoid spaces overlying the convexities consistent with mild age- appropriate diffuse cerebral volume loss. Ventricles are normal and symmetric. New calcification and slight increase in size of a now 8 mm extra-axial mass overlying the medial left parietal lobe consis tent with a meningioma. Small left mastoid effusion. The orbits, paranasal sinuses and right mastoid air cells are normal. IMPRESSION: 1. No acute intracranial process. 2. 8 mm calcified extra-axial mass overlying the left parietal lobe most consistent with a meningioma . Reviewed, dictated and finalized at location A. ETING ANALYST IMPRESSION: 1. No acute intracranial process. 2. 8 mm calcified extra-axial mass overlying the left parietal lobe most consis tent with a meningioma.
--- NOTE | ~2024-06-28 | XR_ITS ---
Portable chest x-ray Comparison: 07/14/2024 Clinical History: Respiratory failure Findings: Tracheostomy cannula and right-sided PICC line are in place. COPD pattern of the lungs pre sent. There is patchy airspace consolidation left lung base worsened right. Cardiomediastinal silhou ette is stable. Bones and soft tissues are unremarkable. Impression: Patchy bibasilar airspace consolidation, compatible pneumonia or possibly pulmonary edema. Underlying COPD. Support tubes, as above. Reviewed, dictated and finalized at location . SPERSON CORSETS Impression: Patchy bibasilar airspace consolidation, compatible pneumonia or possibly pulmo nary edema. Underlying COPD. Support tubes, as above.
--- NOTE | ~2024-06-28 | XR_ITS ---
Portable chest x-ray Comparison: 07/13/2024 at 5:02 AM Clinical History: Status post tracheostomy Findings: Tracheostomy cannula and right-sided PICC line are in place. Small bilateral pleural effus ions are present. There is probable mild bibasilar pulmonary edema with underlying COPD. Cardiomedia stinal silhouette is stable. Bones and soft tissues are unremarkable. Impression: COPD pattern of the lungs. Probable small pleural effusions and mild bibasilar pulmonary edema. Tracheostomy cannula and right-sided PICC line in place. Reviewed, dictated and finalized at location M. EL MAINTENANCE ELECTRICIAN Impression: COPD pattern of the lungs. Probable small pleural effusions and mild bibasilar pulmonary edema. Tracheostomy cannula and right-sided PICC line in place.
--- NOTE | ~2024-06-28 | XR_ITS ---
Portable chest x-ray Comparison: 06/29/2024 Clinical History: Respiratory failure Findings: Endotracheal tube, NG tube, and right-sided PICC line are in satisfactory positions. There is linear right basilar scarring. There is minimal left pleural effusion. Probable COPD. Cardiomedi astinal silhouette is stable. Bones and soft tissues are unremarkable. Impression: COPD and minimal left pleural effusion. Numerous stable linear right basilar scarring. Support tubes, as above. Reviewed, dictated and finalized at location . MICS AX SOLUTION ARCHITECT Impression: COPD and minimal left pleural effusion. Numerous stable linear right basilar sc arring. Support tubes, as above.
--- NOTE | ~2024-06-28 | XR_ITS ---
EXAMINATION: XR chest port-a-cath/central DATE: 07/15/2024 15:58 INDICATION: Central line placement. TECHNIQUE: A single frontal view of the chest was obtained. COMPARISON: Chest single view at 5:41 AM FINDINGS: There are lucencies in the lungs, consistent with emphysema. There are airspace opacities i n the lower lung zones. No pleural effusion or pneumothorax. The heart size is normal. There is a tra cheostomy tube in expected position. A right upper extremity peripherally inserted central venous cat heter (PICC) is seen with tip in the superior vena cava. A right internal jugular central venous cath eter is seen with tip in the superior vena cava. IMPRESSION: 1. Central line tip in the superior vena cava. 2. Stable airspace opacities in the lower lung zones, consistent with atelectasis versus pneumonia. 3. Emphysema. Reviewed, dictated and finalized at location A. DEALER IMPRESSION: 1. Central line tip in the superior vena cava. 2. Stable airspace opacities in the lower lung zones, consistent with atelectas is versus pneumonia. 3. Emphysema.
--- NOTE | ~2024-06-28 | XR_ITS ---
Portable chest x-ray Comparison: 07/06/2024 Clinical History: Respiratory failure Findings: Endotracheal tube, NG tube, and right-sided PICC line are in satisfactory positions. Stabl e COPD pattern of the lungs. There is linear bibasilar scarring. Cardiomediastinal silhouette is sta ble. Bones and soft tissues are unremarkable. Impression: Stable COPD with bibasilar scarring. Stable support tubes. Reviewed, dictated and finalized at location . RISK OB Impression: Stable COPD with bibasilar scarring. Stable support tubes.
--- NOTE | ~2024-06-28 | XR_ITS ---
CHEST RADIOGRAPH CLINICAL HISTORY: Hypoxia/SOB . COMPARISON: Previous examination performed on the same day approximately 90 minutes earlier. TECHNIQUE: Single portable view of the chest. FINDINGS Bibasilar opacification consistent with small bilateral pleural effusions (left greater than right) w ith adjacent consolidation. Small bore catheter originates in the right upper extremity with its tip projecting over the superior vena cava. Endotracheal tube is identified with its tip projecting approximately 2.5 cm above the base of the ca santi. Interval removal of the orogastric tube, seen on previous examination. The cardia of the stomach is opacified with oral contrast. IMPRESSION: Bibasilar consolidation with small bilateral pleural effusions, left greater than right. Endotracheal tube is in good position. Right upper extremity PICC line is unchanged. Reviewed, dictated and finalized at location A. RINTENDENT RECREATION IMPRESSION: Bibasilar consolidation with small bilateral pleural effusions, left greater th an right. Endotracheal tube is in good position. Right upper extremity PICC line is unchanged.
--- NOTE | ~2024-06-28 | XR_ITS ---
EXAMINATION: XR chest 1V portable DATE: 07/05/2024 06:17 INDICATION: COPD exacerbation. Respiratory failure. TECHNIQUE: frontal view of the chest was obtained. COMPARISON: Chest radiograph dated 07/03/2024 FINDINGS: Emphysema with hyperexpansion of lungs and increased lucency with architectural distortion in the upp er lung zones. Persistent linear discoid atelectasis/scarring at the bilateral lung bases. No pleural effusion or pneumothorax. The cardiomediastinal silhouette is normal. Nasogastric tube extends below the left hemidiaphragm with distal tip collimated off the study. Ther e is a small amount of oral contrast material in the fundus of stomach. Right upper extremity periphe rally inserted central venous catheter (PICC) tip at the mid superior vena cava. Calcified right hil ar lymph nodes consistent with old granulomatous disease. Cholecystectomy clips in right upper quadra nt. IMPRESSION: 1. Emphysema with unchanged linear discoid atelectasis/scarring at the bilateral lung bases. Reviewed, dictated and finalized at location A. IQUE SEWER IMPRESSION: 1. Emphysema with unchanged linear discoid atelectasis/scarring at the bilatera l lung bases.
--- NOTE | ~2024-06-28 | XR_ITS ---
EXAMINATION: XR chest 1V portable DATE: 07/16/2024 10:12 INDICATION: Change in condition. Respiratory failure. TECHNIQUE: frontal view of the chest was obtained. COMPARISON: Chest radiograph dated 07/16/2024 FINDINGS: Tracheostomy tube remains in expected position at the thoracic inlet. Distal tip of a likely tunneled large-bore dual-lumen right internal jugular central venous catheter at the mid superior vena cava. Emphysema with increased lucency and architectural distortion in the upper lung zones, right greater than left. Again seen are interstitial and airspace opacities in bilateral mid and lower lung zones, left greater than right. There are some air bronchograms in the infrahilar left lower lung zone. Blun ting at the bilateral costophrenic angles consistent with small bilateral pleural effusions. Heart si ze is normal. Surgical clip projecting over the right hemidiaphragm. Calcified right hilar lymph node s consistent with old granulomatous disease. IMPRESSION: 1. Emphysema. 2. Persistent interstitial and airspace opacities in the bilateral mid and lower lung zones given eve earance on prior CT would favor pneumonia over pulmonary edema. 3. Small bilateral pleural effusions. Reviewed, dictated and finalized at location A. H RANGING CREWMEMBER IMPRESSION: 1. Emphysema. 2. Persistent interstitial and airspace opacities in the bilateral mid and lowe r lung zones given appearance on prior CT would favor pneumonia over pulmonary edema. 3. Small bilateral pleural effusions.
--- NOTE | ~2024-06-28 | CT_ITS ---
EXAMINATION: CT chest abdomen pelvis wo con DATE: 07/14/2024 15:19 INDICATION: Leukocytosis. TECHNIQUE: Computed tomography (CT) of the chest, abdomen, and pelvis was performed without intraveno us contrast. Automated exposure control and iterative reconstruction technique were employed. The dos e-length product was 1336.03 mGy-cm. COMPARISON: Chest CT 10/03/2023, CT abdomen and pelvis 03/21/2023 FINDINGS: CHEST CT: There is severe emphysema. There are airspace opacities in the lower lobes, consistent with pneumonia . Calcified right lung nodules and calcified right hilar lymph nodes are consistent with old granulom atous disease. There are small pleural effusions. The heart size is normal. There are coronary artery calcifications. There is a chronic small pericardial effusion. There is a tracheostomy tube in expec patrick position. There is mild thoracic spondylosis. ABDOMEN/PELVIS CT: The liver is normal. Calcifications in the spleen are consistent with old granulomatous disease. Ther e is a gastrostomy tube in expected position. The changes of cholecystectomy. The pancreas, adrenal g lands, and right kidney are normal. There is a 2.8 cm mass of fat involving left kidney, which may be an angiomyolipoma or old fat necrosis (if there has been a prior ablation). There are no dilated loo ps of bowel. The appendix is not visualized. There is calcified atherosclerosis of the aorta and many of the other arteries. There are no pathologically enlarged lymph nodes. There is no free intraperit mccray fluid. Body wall edema is noted. There is severe lower lumbar spondylosis. IMPRESSION: 1. Bilateral lower lobe pneumonia. 2. Small pleural effusions. 3. Severe emphysema. Reviewed, dictated and finalized at location A. TRICAL TEST TECHNICIAN
--- NOTE | ~2024-06-28 | XR_ITS ---
Portable chest x-ray Comparison: 07/05/2024 Clinical History: Respiratory failure Findings: Endotracheal tube, NG tube, and right-sided PICC line are in place. COPD pattern of the matt ngs present with bibasilar scarring or atelectasis. Cardiomediastinal silhouette is stable. Bones an d soft tissues are unremarkable. Impression: COPD with bibasilar scarring or atelectasis. Support tubes, as above. Reviewed, dictated and finalized at location . DRIER Impression: COPD with bibasilar scarring or atelectasis. Support tubes, as above.
--- NOTE | ~2024-06-28 | XR_ITS ---
Portable chest x-ray Comparison: 06/28/2024 Clinical History: Respiratory failure Findings: Endotracheal tube and NG tube are in satisfactory positions. There is mild interstitial pr ominence the lung bases with probable COPD. There is probable linear scarring right lung base. Cardi omediastinal silhouette is stable. Bones and soft tissues are unremarkable. Impression: COPD. Linear bibasilar scarring and mild nonspecific bibasilar interstitial prominence. Support tubes, as above. Reviewed, dictated and finalized at location M. E MASTER Impression: COPD. Linear bibasilar scarring and mild nonspecific bibasilar interstitial prominenc e. Support tubes, as above.
--- NOTE | ~2024-06-28 | US_ITS ---
EXAMINATION: US renal BI DATE: 07/06/2024 08:20 INDICATION: Acute renal insufficiency and hyperkalemia TECHNIQUE: Multiple ultrasound grayscale images of the kidneys were obtained. COMPARISON: CT dated 03/21/2023 FINDINGS: The right kidney measures 10.0 x 5.0 x 5.2 cm. The left kidney measures 10.3 x 5.7 x 5.6 cm. The kidn eys demonstrate normal echogenicity. 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 There is no hydronephrosis in either kidney. No stones identified. The bladder is decompressed around a Goddard catheter which limits evaluation.. IMPRESSION: 1. No hydronephrosis in either kidney. Reviewed, dictated and finalized at location A. ON RAILS DEVELOPER
--- NOTE | ~2024-06-28 | XR_ITS ---
Portable chest x-ray Comparison: 07/13/2024 Clinical History: Pneumonia, COPD Findings: Tracheostomy cannula and right-sided PICC line are in place. COPD pattern of the lungs pre sent. There is probable worsening hazy and interstitial disease, especially the lung bases and left p erihilar region. Cardiomediastinal silhouette is stable. Bones and soft tissues are unremarkable. Impression: COPD. Worsening hazy and interstitial disease the lung bases and left perihilar region. Correlate for super imposed pulmonary edema or pneumonia. Support tubes, as above. Reviewed, dictated and finalized at location . RESURFACING MACHINE OPERATORS Impression: COPD. Worsening hazy and interstitial disease the lung bases and left perihilar regio n. Correlate for superimposed pulmonary edema or pneumonia. Support tubes, as above.
--- NOTE | ~2024-06-28 | XR_ITS ---
Portable chest x-ray Comparison: 07/01/2024 Clinical History: Respiratory failure Findings: Endotracheal tube, NG tube, and right-sided PICC line are in place. COPD pattern of the matt ngs present. Possible focal retrocardiac consolidation. There is right basilar scarring. Cardiomedia stinal silhouette is stable. Bones and soft tissues are unremarkable. Impression: COPD. Questionable focal retrocardiac pneumonia. Linear right basilar scarring. Support tubes, as above. Reviewed, dictated and finalized at location M. WORKERS Impression: COPD. Questionable focal retrocardiac pneumonia. Linear right basilar scarring. Support tubes, as above.
--- NOTE | ~2024-06-28 | XR_ITS ---
Portable chest x-ray Comparison: 07/12/2024 Clinical History: Pneumonia, COPD Findings: Endotracheal tube and right-sided PICC line are in satisfactory positions. Probable small bilateral pleural effusions. There is probable mild bibasilar pulmonary edema. There is probable biba silar scarring as well. Underlying COPD. Cardiomediastinal silhouette is stable. Bones and soft tiss ues are unremarkable. Impression: Small pleural effusions with mild bibasilar pulmonary edema. Underlying COPD and bibasilar linear scarring. Support tubes, as above. Reviewed, dictated and finalized at location . RAFT PAINTER Impression: Small pleural effusions with mild bibasilar pulmonary edema. Underlying COPD and bibasilar linear scarring. Support tubes, as above.
--- NOTE | ~2024-06-28 | US_ITS ---
EXAMINATION: US abdomen limited DATE: 07/03/2024 14:10 INDICATION: Abnormal liver function tests. TECHNIQUE: Multiple grayscale and Doppler ultrasound images of the abdomen were obtained. COMPARISON: CT abdomen 03/21/2023 FINDINGS: The visualized portions of the head, body, and tail of the pancreas are normal. The liver i s normal without focal lesion. The gallbladder is absent. The common duct is normal and measures 3 mm . Right kidney is normal in size. IMPRESSION: 1. Normal right upper quadrant ultrasound status post cholecystectomy. Reviewed, dictated and finalized at location A. SERVICE TECHNICIAN
--- NOTE | ~2024-06-28 | XR_ITS ---
Exam: Abdomen 1V HISTORY: NG PLACEMENT COMPARISON: None. TECHNIQUE: Supine images of the lower chest and upper abdomen FINDINGS: Nasogastric tube extends into the left upper quadrant, presumably within the distal stomach. IMPRESSION: Nasogastric tube in good position and ready for immediate use. Reviewed, dictated and finalized at location A. ILIZER SUPERVISOR
--- NOTE | ~2024-06-28 | XR_ITS ---
EXAMINATION: XR chest 1V portable DATE: 07/10/2024 06:16 INDICATION: Pneumonia. TECHNIQUE: A single frontal view of the chest was obtained. COMPARISON: Chest single view 07/09/2024, chest CT 10/03/2023 FINDINGS: There are lucencies in the lungs, consistent with emphysema. There are airspace opacities i n the mid and lower lung zones. No pleural effusion or pneumothorax. The heart size is normal. The en dotracheal tube tip is 4.5 cm above the ramirez. The nasogastric tube tip is beyond the inferior narayan n of the radiograph, but at least to the stomach. A right upper extremity peripherally inserted centr al venous catheter (PICC) is seen with tip in the superior vena cava. IMPRESSION: 1. Airspace opacities in the mid and lower lung zones with worsening at the lung bases, consistent wi th atelectasis versus pneumonia. 2. Severe emphysema. Reviewed, dictated and finalized at location A. LLIGENCE APPLICATIONS IMPRESSION: 1. Airspace opacities in the mid and lower lung zones with worsening at the baldomero g bases, consistent with atelectasis versus pneumonia. 2. Severe emphysema.
--- NOTE | ~2024-06-28 | XR_ITS ---
EXAMINATION: XR fl guide central line place DATE: 07/15/2024 16:29 INDICATION: Tunneled dialysis catheter insertion TECHNIQUE: 3 fluoroscopic images of the upper chest were obtained during procedure performed by Dr. Man lombardi. Radiologist was not present for the imaging or procedure. The amount of fluoroscopy time used during this procedure was 0.2 minutes. Total DAP was 0.0294 mGycm^2 COMPARISON: None. FINDINGS: Images demonstrate the axis of the right internal jugular vein with advancement of a wire into the dao perior vena cava. There is a pump placement of a likely tunneled dual-lumen right internal jugular ce ntral venous catheter with distal tip at the caudal superior vena cava. Tracheostomy seen in expected position at the thoracic inlet. Visualized portion of the upper lungs are clear. IMPRESSION: 1. Placement of a likely tunneled dual-lumen right internal jugular central venous catheter with dist al tip at the caudal superior vena cava. See procedure note for further detail. Reviewed, dictated and finalized at location A. LOPMENT REPRESENTATIVE IMPRESSION: 1. Placement of a likely tunneled dual-lumen right internal jugular central vineet ous catheter with distal tip at the caudal superior vena cava. See procedure no te for further detail.
--- NOTE | ~2024-06-28 | XR_ITS ---
CHEST RADIOGRAPH CLINICAL HISTORY: Pneumonia, COPD exacerbation . COMPARISON: 07/11/2024 TECHNIQUE: Single portable view of the chest. FINDINGS Right upper extremity PICC tip projecting over the superior vena cava Endotracheal tube is identified with its tip projecting approximately 5 cm above the base of the faustino na. The remainder of the cardiomediastinal silhouette is otherwise unremarkable. Blunting of the left costophrenic sulcus suggesting a small left-sided pleural effusion. Panlobular emphysematous disease. Redemonstration of partial right middle lobe collapse (the triangular-shaped focus adjacent to the ca rdiomediastinal silhouette) likely chronic and unchanged from 10/03/2023. The remainder of the lungs are clear. IMPRESSION: Small left-sided pleural effusion. Supportive lines and tubes in good position. Reviewed, dictated and finalized at location A. ATOPATHOLOGIST
--- NOTE | ~2024-06-28 | XR_ITS ---
CHEST RADIOGRAPH CLINICAL HISTORY: SOB . COMPARISON: None TECHNIQUE: Single portable view of the chest. FINDINGS The cardiomediastinal silhouette is elongated. Hyperinflation is present. Panlobular emphysematous disease is noted with bibasilar interstitial thickening, likely chronic. The lungs are otherwise clear. IMPRESSION: Emphysematous change without focal infiltrate, as detailed above. Reviewed, dictated and finalized at location A. TOR OPERATOR HELPER
--- NOTE | ~2024-06-28 | XR_ITS ---
Portable chest x-ray Comparison: 06/30/2024 Clinical History: Respiratory failure Findings: Endotracheal tube, NG tube, and right-sided PICC line are in place. COPD pattern present. Probable minimal pleural effusions. Cardiomediastinal silhouette is stable. Bones and soft tissues a re unremarkable. Impression: COPD. Minimal pleural effusions. Support tubes, as above. Reviewed, dictated and finalized at location . AID Impression: COPD. Minimal pleural effusions. Support tubes, as above.
--- NOTE | ~2024-06-28 | XR_ITS ---
Portable chest x-ray Comparison: 07/15/2024 Clinical History: Respiratory failure Findings: Tracheostomy cannula and right-sided central venous lines are in place. COPD pattern prese nt. There is probable left lower lobe pneumonia, possible mild right basilar involvement as well. The re is new right perihilar airspace opacity. Cardiomediastinal silhouette is stable. Bones and soft t issues are unremarkable. Impression: Probable bibasilar pneumonia, left worse than right, with new additional airspace opacity in the righ t perihilar region, which could reflect additional pneumonia. Underlying COPD. Support tubes, as above. Reviewed, dictated and finalized at location M. STANT DIRECTOR OF FINANCIAL AID Impression: Probable bibasilar pneumonia, left worse than right, with new additional airspa ce opacity in the right perihilar region, which could reflect additional pneumo yoshi. Underlying COPD. Support tubes, as above.
--- NOTE | ~2024-06-28 | XR_ITS ---
CHEST RADIOGRAPH CLINICAL HISTORY: POST INTUBATION . COMPARISON: 06/28/2024 TECHNIQUE: Single portable view of the chest. FINDINGS Endotracheal tube is identified with its tip projecting approximately 1.5 cm above the base of the ca santi. Withdrawal of approximately 4 cm is suggested for optimal radiographic placement. Nasogastric tube identified with its tip extending below the left hemidiaphragm, presumably within th e stomach. The remainder of the cardiomediastinal silhouette is otherwise unremarkable. Neither costophrenic sulci are included on the current examination. The remainder of the lungs are clear. IMPRESSION: Endotracheal tube withdrawal of approximately 4 cm is suggested for optimal radiographic placement. Nasogastric tube extends below the left hemidiaphragm, presumably within the stomach. Remainder of examination is otherwise unchanged from earlier study performed approximately 45 minutes earlier. Reviewed, dictated and finalized at location A. WEB DEVELOPMENT CONSULTANT IMPRESSION: Endotracheal tube withdrawal of approximately 4 cm is suggested for optimal rad iographic placement. Nasogastric tube extends below the left hemidiaphragm, presumably within the st omach. Remainder of examination is otherwise unchanged from earlier study performed ap proximately 45 minutes earlier.
--- NOTE | ~2024-06-28 | XR_ITS ---
EXAMINATION: XR chest 1V portable DATE: 07/11/2024 05:50 INDICATION: Pneumonia. COPD exasperation. TECHNIQUE: frontal view of the chest was obtained. COMPARISON: Chest radiograph dated 07/10/2024 FINDINGS: Endotracheal tube tip 5.3 cm above the ramirez. Right upper extremity peripherally inserted central v enous catheter (PICC) tip at the cephalad superior vena cava. Emphysema with increased lucency and architectural distortion in the upper lungs. Increased interstit ial opacities in the bilateral lower lung zones. Mild airspace opacities in the bilateral lower lung zones most prominent in the right middle lobe. Calcified nodules in the right lower lung zone and roshan cified right hilar lymph nodes consistent with old granulomatous disease. Residual tiny left pleural effusion. No pneumothorax. Heart size is normal. Coronary artery stenting. Surgical clip projects ov er the right upper quadrant. Oral contrast material in the gastric fundus. IMPRESSION: 1. Emphysema with interstitial and airspace opacities in the lower lung zones which could represent a telectasis pneumonia, pulmonary edema or some combination thereof. 2. Decreased very small left pleural effusion. Reviewed, dictated and finalized at location A. OW SECRETARY IMPRESSION: 1. Emphysema with interstitial and airspace opacities in the lower lung zones w hich could represent atelectasis pneumonia, pulmonary edema or some combination thereof. 2. Decreased very small left pleural effusion.
--- NOTE | 2024-06-28 17:13 | ED.SOB ---
HPI - SOB/Dyspnea General Chief Complaint: Shortness of Breath/Dyspnea Stated Complaint: dyspnea Time Seen by Provider: 06/28/24 17:13 Source: EMS Mode of arrival: EMS History of Present Illness HPI Narrative: 78 YEARS OLD FEMALE CAME FROM HOME BY AMBULANCE WITH SHORTNESS OF BREATH WITHIN FEW HOURS PRIOR TO ARRIVAL TO THE EMERGENCY ROOM. HISTORY OF COPD ON OXYGEN, 4 L, NASAL CANNULA PATIENT WAS EXTREMELY LABORED WHEN THE AMBULANCE ARRIVED TO HER HOUSE, SATURATION WAS IN THE 70 %, RESPIRATORY RATE WAS 40, PATIENT RECEIVED 10 MG OF DECADRON IV, TO G OF MAGNESIUM IV PRIOR TO ARRIVAL TO THE EMERGENCY ROOM. PATIENT ARRIVED ON CPAP. Related Data Home Medications ?Medication ?Instructions ?Recorded ?Confirmed ?Last Taken ?Type albuterol 90 mcg/actuation aerosol 90 mcg inhalation PRN 06/28/24 06/28/24 Unknown History inhaler atorvastatin 40 mg tablet (Lipitor) 40 mg PO DAILY 06/28/24 06/28/24 Unknown History azithromycin 250 mg tablet 500 mg PO .COMPLEX 06/28/24 06/28/24 Unknown History levothyroxine 50 mcg capsule 50 mcg PO DAILY 06/28/24 06/28/24 Unknown History Allergies Allergy/AdvReac Type Severity Reaction Status Date / Time No Known Allergies Allergy Verified 06/28/24 17:34 Review of Systems Review of Systems: ROS unobtainable: Yes unobtainable due to medical condition Exam Narrative: GENERAL APPEARANCE: WELL-DEVELOPED, WELL-NOURISHED, ON BIPAP, LABORED BREATHING, UNABLE TO ANSWER QUESTION SKIN: NORMAL COLOR HEAD: NORMOCEPHALIC, NONTRAUMATIC EYES: CLEAR CONJUNCTIVA ENT: OROPHARYNX NORMAL, EARS NORMAL, NOSE NORMAL NECK: SUPPLE, NONTENDER CHEST AND RESPIRATORY: DIMINUTION OF AIR ENTRY BILATERALLY, NO WHEEZING OR RHONCHI HEART: REGULAR RATE/RHYTHM ABDOMEN: SOFT, NONTENDER, NO ORGANOMEGALY, QUIET BOWEL SOUNDS NEUROLOGIC: ALERT, UNABLE TO ANSWER VERBAL COMMANDS, Course Vital Signs Vital signs: Vital Signs Temperature 36.4 C 06/28/24 17:07 Pulse Rate 93 06/28/24 17:07 Respiratory Rate 24 H 06/28/24 17:07 Blood Pressure 177/88 H 06/28/24 17:07 Pulse Oximetry 100 06/28/24 17:07 Oxygen Delivery BiPAP 06/28/24 17:07 Temperature 36.4 C 06/28/24 17:07 Pulse Rate 91 06/28/24 19:04 Respiratory Rate 28 H 06/28/24 19:04 Blood Pressure 131/102 H 06/28/24 18:46 Pulse Oximetry 99 06/28/24 19:04 Oxygen Delivery BiPAP 06/28/24 19:04 Fraction of Inspired Oxygen 30 06/28/24 17:24 Procedures Intubation Intubation #1: Intubation Date: 06/28/24 Time out performed: Yes (20) sedative: Versed Mg Given: 4 paralytic: Succinylcholine Mg Given: 100 Laryngoscope: fiber optic video scope Tube Size (cm): 7.5 Method of Intubation: orotracheal Number of Attempts: 1 Tube Secured Depth (cm): 25 Tube Secured Location: lips Tube Placement Confirmation: visualized tube passing through cords, equal breath sounds bilaterally and no breath sounds over epigastrium Patient Tolerated Procedure: well Intubation Complications: none MDM - SOB/Dyspnea MDM Narrative Medical decision making narrative: PATIENT PRESENTS WITH SHORTNESS OF BREATH, HISTORY OF COPD VITAL SIGNS SHOWING BLOOD PRESSURE 177/88, PULSE 93, RESPIRATORY RATE 24, TEMPERATURE 36.4?, SATURATION 100% ON BIPAP FIO2 30. PHYSICAL EXAMINATION SHOWING LABORED BREATHING, MARKED DIMINUTION OF AIR ENTRY BILATERALLY, GRADUALLY GETTING BETTER ON BIPAP DIFFERENTIAL DIAGNOSIS INCLUDE COPD EXACERBATION, PNEUMONIA, VIRAL INFECTION, CONGESTIVE HEART FAILURE, PLEURAL EFFUSION, LESS LIKELY CORONARY ARTERY DISEASE BLOOD WORKUP TODAY INCLUDES CBC, CMP, TROPONIN, BNP, CULTURE, LACTIC ACID, CRP SHOWED WBC 18.3, PLATELET COUNT 413, CREATININE IS 1.2, GLUCOSE 193, MAGNESIUM 3.3, TROPONIN IS 0.097, BNP 551 CHEST X-RAY SHOWED EMPHYSEMATOUS CHANGES OTHERWISE WITHIN NORMAL LIMIT ABG ON BIPAP 12/6, FIO2 40%, VENT RATE 12 PER MINUTE SHOWING PH OF 7.2, PCO2 71, PO2 84, BICARB 30, OX SATURATION 94.2% VENT RATE CHANGED TO 16 PER MINUTE EKG ON ARRIVAL SHOWED NORMAL SINUS RHYTHM 98 BEATS PER MINUTE NO OLD EKG AVAILABLE FOR COMPARISON PATIENT SHORTNESS OF BREATH GOT WORSE AFTER A SHORT PERIOD OF IMPROVEMENT, WAS WORKING HEART FOR HER BREATHING, INTUBATED DR. CLAY WAS INFORMED ADMIT TO ICU Lab Data 06/28/24 17:30 06/28/24 17:30 Labs: Lab Results 06/28/24 06/28/24 06/28/24 Range/Units 17:30 17:31 18:00 WBC 18.3 H (4.5-10.0) K/mm3 RBC 4.19 L (4.2-5.4) M/mm3 Hgb 11.8 L (12.0-15.0) g/dL Hct 38.6 (37.0-47.0) % MCV 92.1 (80-100) fl MCH 28.2 (26-34) pg MCHC 30.6 L (32-36) g/dl RDW 16.2 H (11.5-14.5) % Plt Count 413 H (150-375) k/mm3 MPV 11.0 H (7.4-10.4) fl Immature Gran % (Auto) 0.3 (0-0.5) % Neut % (Auto) 47.6 (45.5-73.1) % Lymph % (Auto) 45.1 H (18.3-44.2) % [place] % (Auto) 4.9 (2.6-8.5) % Eos % (Auto) 1.6 (0-4.4) % Baso % (Auto) 0.5 (0.2-1.2) % Lymph # (Auto) 8.28 H (0.9-3.2) K/mm3 [place] # (Auto) 0.9 H (0.1-0.6) K/mm3 Eos # (Auto) 0.3 (0-0.3) K/mm3 Baso # (Auto) 0.1 (0.0-0.1) K/mm3 Abs Immat Gran (auto) 0.06 H (0.00-0.031) K/mm3 Absolute Neuts (auto) 8.7 H (1.3-6.7) K/mm3 Absolute Nucleated RBC 0.000 (0.0-0.012) K/mm3 Nucleated RBC % 0.0 (0.0-0.2) % PT 14.2 (11.1-14.7) Seconds INR 1.1 APTT 29.5 (22.3-36.8) Seconds Expiratory Pressure 6 CMH2O Inspiratory Pressure 12 CMH2O Sodium 140 (137-145) mmol/L Potassium 3.8 (3.4-5.0) mmol/L Chloride 99 (98-107) mmol/L Carbon Dioxide 31 H (22-30) mmol/L Anion Gap 10 (4-12) mmol/L BUN 16 (7-17) mg/dL Creatinine 1.20 H (0.7-1.0) mg/dL Estim Creat Clear Calc 28 ml/min Estimated GFR 44 L (59 - ) Glucose 193 H (65-110) mg/dL Lactic Acid 1.8 (0.7-2.0) mmol/L Calcium 8.7 (8.4-10.2) mg/dL Magnesium 3.3 H (1.6-2.3) mg/dL Total Bilirubin 0.5 (0.2-1.3) mg/dL AST 33 (14-36) U/L ALT 30 (6-35) U/L Alkaline Phosphatase 138 H (38-126) U/L Troponin I 0.097 H* (0.000-0.034) ng/mL NT-Pro-B Natriuret Pep 551 H (19.9-100) pg/mL Total Protein 7.0 (6.3-8.2) g/dL Albumin 4.3 (3.5-5.1) g/dL ABG Data ABG results: 06/28/24 18:00 Puncture Site Left brachial ABG pH 7.240 L* ABG pCO2 71.6 H* ABG pO2 84.5 ABG PO2/FiO2 Ratio 2.11 ABG HCO3 30.0 H ABG O2 Saturation 94.2 L ABG O2 Content 17.1 ABG Base Excess 0.8 A-a Gradient 118.4 Oxyhemoglobin 93.8 Total Hemoglobin 12.9 O2 Delivery Device Non-invasive vent O2 Liters/Min 0.0 Vent Rate 12 FiO2 40 ECG Data EKG #1: Attestation: I personally reviewed and interpreted this ECG as follows: ECG completion date: 06/28/24 Interpretation: NORMAL SINUS RHYTHM AT 98 BEATS PER MINUTE, 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, ABNORMAL EKG, NO PREVIOUS EKG AVAILABLE FOR COMPARISON Critical Care Time Critical Care Time Critical Care Time: Yes Total Critical Care Time: 30 Discharge Plan Discharge Clinical Impression: Acute exacerbation of chronic bronchitis, Acute and chronic respiratory failure with hypoxia, Elevated troponin, Hypermagnesemia, Endotracheally intubated Patient Disposition: Still a Patient Condition: Stable Additional Instructions: ADMIT TO HOSPITALIST Patient Language: Armenian Prescriptions: No Action atorvastatin [Lipitor] 40 mg tablet 40 mg PO DAILY azithromycin 250 mg tablet 500 mg PO .COMPLEX Rx Instructions: 500 mg orally m, w, f; levothyroxine 50 mcg capsule 50 mcg PO DAILY albuterol 90 mcg/actuation aerosol 90 mcg inhalation PRN
--- NOTE | 2024-06-28 17:14 | ECG_ITS ---
Test Date: 2024-06-28 17:08:22 Measurements Intervals [place] Rate: 98 P: -5 [place]: 156 QRS: 23 QRSD: 83 T: 78 QT: 319 QTc: 408 Interpretive Statements SINUS RHYTHM ANTEROSEPTAL MYOCARDIAL INFARCTION , OF INDETERMINATE AGE BASELINE ARTIFACT- I, II, III, AVR, AVL, AVF, V1-V6 ABNORMAL ECG No previous ECG available for comparison Electronically Signed On 06-28-2024 19:05:20 CHORE TENDER by Drake Brewster D.O.
[2024-06-28] MEDS: IPRATROPIUM 0.5 MG/ALBUTEROL SULFATE 2.5 MG AMPUL.NEB 3 ML INHALATION (17:30)
[2024-06-28 17:42] LABS: Basophils Absolute Auto 0.1 K/mm3 (0.0-0.1); Basophils Percent Auto 0.5 % (0.2-1.2); Eosinophils Absolute Auto 0.3 K/mm3 (0-0.3); Eosinophils Percent Auto 1.6 % (0-4.4); Hematocrit 38.6 % (37.0-47.0); Hemoglobin 11.8 g/dL (12.0-15.0); Immature Granulocyte Absolute 0.06 K/mm3 (0.00-0.031); Immature Granulocyte Percent A 0.3 % (0-0.5); Lymphocytes Absolute Auto 8.28 K/mm3 (0.9-3.2); Lymphocytes Percent Auto 45.1 % (18.3-44.2); Mean Corpuscular HGB Conc 30.6 g/dl (32-36); Mean Corpuscular Hemoglobin 28.2 pg (26-34); Mean Corpuscular Volume 92.1 fl (80-100); Monocytes Absolute Auto 0.9 K/mm3 (0.1-0.6); Monocytes Percent Auto 4.9 % (2.6-8.5); Neutrophils Absolute Auto 8.7 K/mm3 (1.3-6.7); Neutrophils Percent Auto 47.6 % (45.5-73.1); Platelet Count Result 413 k/mm3 (150-375); Red Blood Count 4.19 M/mm3 (4.2-5.4); Red Cell Distribution Width 16.2 % (11.5-14.5); White Blood Count 18.3 K/mm3 (4.5-10.0)
[2024-06-28 17:52] LABS: Lactic Acid Reflex 1.8 mmol/L (0.7-2.0)
[2024-06-28 17:53] LABS: Alanine Aminotransferase 30 U/L (6-35); Albumin Level 4.3 g/dL (3.5-5.1); Alkaline Phosphatase 138 U/L (38-126); Anion Gap 10 mmol/L (4-12); Aspartate Amino Transferase 33 U/L (14-36); Bilirubin,Total 0.5 mg/dL (0.2-1.3); Blood Urea Nitrogen 16 mg/dL (7-17); Calcium 8.7 mg/dL (8.4-10.2); Carbon Dioxide 31 mmol/L (22-30); Chloride 99 mmol/L (98-107); Estimated CRCL calculation 28 ml/min; Estimated Glomerular Filt Rate 44; Glucose 193 mg/dL (65-110); Magnesium 3.3 mg/dL (1.6-2.3); Potassium 3.8 mmol/L (3.4-5.0); Sodium 140 mmol/L (137-145)
[2024-06-28 17:53] LABS: INR 1.1; Prothrombin Time 14.2 Seconds (11.1-14.7)
[2024-06-28 17:54] LABS: Partial Thromboplastin Time 29.5 Seconds (22.3-36.8)
[2024-06-28 18:08] LABS: NT Pro B Type Natriuretic Pept 551 pg/mL (19.9-100); Troponin I 0.097 ng/mL (0.000-0.034)
[2024-06-28 18:14] LABS: Alveolar/Arterial O2 Gradient 118.4 mmHg; Base Excess ABG 0.8 mEq/l (+/-2.0); Fractional Inspired Oxygen 40 %; Oxygen Content ABG 17.1 %vol (16.0-22.0); Oxygen Saturation ABG 94.2 % (95.0-100.0); Oxyhemoglobin 93.8 % THb (90.0-100.0); PO2 ABG 84.5 mmHg (80.0-100.0); PO2 FiO2 Ratio Arterial Blood 2.11 %; Total Hemoglobin 12.9 g/dL (12.0-18.0)
[2024-06-28 18:16] LABS: PCO2 ABG 71.6 mmHg (35.0-45.0); Site Drawn LEFT BRACHIAL
[2024-06-28 18:17] LABS: Device NON-INVASIVE VENT
[2024-06-28 18:18] LABS: Non-Invasive Expiratory Pressure 6 CMH2O; Non-Invasive Inspiratory Pressure 12 CMH2O; Non-Invasive Vent Rate 12 /MIN
[2024-06-28] MEDS: ALBUTEROL SULFATE NEB 2.5 MG/3 ML INH 10 MG INHALATION (19:03)
--- OUTSIDE RECORDS SUMMARY | 2024-06-28 19:04 | XMS_ITS | Encounter Summary ---
Author Organization [facility] Address [address] [facility] [place] [address] Care Team Providers Care Charcoal Kiln Burner Name Role Phone Unavailable Primary Care Provider Unavailabl e Encounter Details Date Type Department Care Team (Late st Contact Info) Description 01/06/2021 Lab Requisition [facility] [address] [place] [address] AakashlizzetteTiti [address] [facility] [address] [place], [place] [id number] Social History Tobacco Use Types Packs/Day Years Used Date Smoking Tobacco: Never Assessed Sex and Gender Information Value Date Recorded Sex Assigned at Not on file Gender Identity Not on file Sexual Orientation Not on file documented as of this encounter Plan of Treatment Not on file documented as of this encounter Procedures Procedure Name Priority Date/Time Associated Diagnosis Comments CBC W AUTO DIFFERENTIAL STAT 01/06/2021 4:31 AM CDT COMPREHENSIVE METABOLIC PANEL STAT 01/06/2021 4:31 AM CDT documented in this encounter Results * (ABNORMAL) CBC WITH DIFFERENTIAL (01/06/2021 4:31 AM CDT) WBC 14.6(H) 4.4 - 10.7 x10E9/L 01/06/2021 10:29 AM CDT [facility] WBC Corrected 01/06/2021 10:29 AM CDT [facility] RBC 3.59(L) 3.80 - 5.20 x10E12/L 01/06/2021 10:29 AM CDT [facility] Hemoglobin 10.6(L) 12.0 - 15.6 gm/dL 01/06/2021 10:29 AM CDT [facility] Hematocrit 34.8(L) 35.9 - 45.5 % 01/06/2021 10:29 AM CDT [facility] MCV 96.9 80.7 - 98.3 fl 01/06/2021 10:29 AM CDT [facility] MCH 29.5 26.7 - 34.0 pg 01/06/2021 10:[facility] MCHC 30.5(L) 30.8 - 35.9 gm/dL 01/06/2021 10:29 AM [facility] Platelet Count 507(H) 153 - 416 x10E9/L 01/06/2021 10:29 AM [facility] RDW-CV 18.9(H) 12.1 - 14.9 % 01/06/2021 10:29 AM [facility] MPV 11.4 9.4 - 12.9 fl 01/06/2021 10:29 AM [facility] Neutrophils % 72.0 44.0 - 73.0 % 01/06/2021 10:29 AM [facility] Lymphocytes % 17.9(L) 20.0 - 43.0 % 01/06/2021 10:29 AM [facility] Monocytes % 8.0 5.0 - 13.0 % 01/06/2021 10:29 AM [facility] Eosinophils % 0.8 0.0 - 6.0 % 01/06/2021 10:29 AM [facility] Basophils % 0.3 0.0 - 2.0 % 01/06/2021 10:29 AM [facility] Immature Granulocytes 1.0 0 - 1 % 01/06/2021 10:29 AM [facility] Neutrophil Absolute 10.52(H) 2.01 - 7.14 x10E9/L 01/06/2021 10:29 AM [facility] Lymphocytes Absolute 2.61 1.07 - 3.94 x10E9/L 01/06/2021 10:29 AM [facility] Monocytes Absolute 1.16(H) 0.26 - 1.07 x10E9/L 01/06/2021 10:29 AM [facility] Eosinophils Absolute 0.11 0 - 0.47 x10E9/L 01/06/2021 10:29 AM [facility] Basophils Absolute 0.04 0 - 0.08 x10E9/L 01/06/2021 10:29 AM CDT [facility] Immature Granulocytes Absolute 0.14(H) 0.00 - 0.06 x10E9/L 01/06/2021 10:29 AM CDT [facility] nRBC Auto 0 /100 WBC 01/06/2021 10:29 AM [facility] Blood BLOOD SPECIMEN / Unknown Venipuncture / Unknown 01/06/2021 4:31 AM CDT 01/06/2021 9:05 AM CDT Titi Raymond Omar LAB - HEMATOLOGY ORD ERABLES [facility] [address] [place] [address] * (ABNORMAL) COMPREHENSIVE METABOLIC PANEL (01/06/2021 4:31 AM CDT) Glucose 130(H) 70 - 105 mg/dL 01/06/2021 10:40 AM [facility] Sodium 142 136 - 145 mmol/L 01/06/2021 10:40 AM [facility] Potassium 4.8 3.5 - 5.1 mmol/L 01/06/2021 10:40 AM [facility] Chloride 98 98 - 107 mmol/L 01/06/2021 10:40 AM [facility] CO2 33(H) 23 - 31 mmol/L 01/06/2021 10:40 AM [facility] Calcium 9.8 8.4 - 10.4 mg/dL 01/06/2021 10:40 AM [facility] Anion Gap 11 8 - 18 mmol/L 01/06/2021 10:40 AM [facility] BUN 24(H) 9.8 - 20.1 mg/dL 01/06/2021 10:40 AM [facility] Creatinine 0.77 0.57 - 1.11 mg/dL 01/06/2021 10:40 AM [facility] Alkaline Phosphatase 157(H) 40 - 150 U/L 01/06/2021 10:40 AM [facility] ALT 64(H) 0 - 61 U/L 01/06/2021 10:40 AM [facility] AST 24 5 - 34 U/L 01/06/2021 10:40 AM CDT [facility] Protein Total 6.2(L) 6.4 - 8.3 gm/dL 01/06/2021 10:40 AM CDT [facility] Albumin 3.7 3.2 - 4.6 gm/dL 01/06/2021 10:40 AM CDT [facility] Bilirubin Total 0.3 0.2 - 1.2 mg/dL 01/06/2021 10:40 AM CDT [facility] eGFR by MDRD >60 mL/min/1.7 3m2 01/06/2021 10:40 AM CDT [facility] eGFR by MDRD >60 mL/min/1.7 3m2 01/06/2021 10:40 AM CDT [facility] Blood BLOOD SPECIMEN / Unknown Venipuncture / Unknown 01/06/2021 4:31 AM CDT 01/06/2021 9:05 AM CDT Titi Nelson LAB - CHEMISTRY BLANCO PEÑALOZA [facility] Organization Address City/State/ZIP Co de Phone Number [facility] [address] [place] [address] documented in this encounter Visit Diagnoses Not on filedocumented in this encounter
--- OUTSIDE RECORDS SUMMARY | 2024-06-28 19:04 | XMS_ITS | Encounter Summary ---
Author Organization [facility] Address [address] [place] [address] Care Team Providers Care Rd Lab Technician Name Role Phone Unavailable Primary Care Provider Unavailabl e Encounter Details Date Type Department Care Team (Late st Contact Info) Description 01/17/2021 Lab Requisition [facility] [address] [place] [address] IsatucourtneylizzetteTiti [address] [facility] [address] [place], [place] [id number] Social History Tobacco Use Types Packs/Day Years [...] Diagnosis Comments CBC W AUTO DIFFERENTIAL STAT 01/17/2021 5:48 AM CDT documented in this encounter Results * (ABNORMAL) CBC WITH DIFFERENTIAL (01/17/2021 5:48 AM CDT) WBC 15.8(H) 4.4 - 10.7 x10E9/L 01/17/2021 12:01 PM CDT [facility] WBC Corrected 01/17/2021 12:01 PM CDT [facility] RBC 3.21(L) 3.80 - 5.20 x10E12/L 01/17/2021 12:01 PM CDT [facility] Hemoglobin 9.6(L) 12.0 - 15.6 gm/dL 01/17/2021 12:01 PM CDT [facility] Hematocrit 30.4(L) 35.9 - 45.5 % 01/17/2021 12:01 PM CDT [facility] MCV 94.7 80.7 - 98.3 fl 01/17/2021 12:01 PM CDT [facility] MCH 29.9 26.7 - 34.0 pg 01/17/2021 12:01 PM [facility] MCHC 31.6 30.8 - 35.9 gm/dL 01/17/2021 12:01 PM [facility] Platelet Count 402 153 - 416 x10E9/L 01/17/2021 12:01 PM [facility] RDW-CV 18.1(H) 12.1 - 14.9 % 01/17/2021 12:01 PM [facility] MPV 11.6 9.4 - 12.9 fl 01/17/2021 12:01 PM [facility] Neutrophils % 72.1 44.0 - 73.0 % 01/17/2021 12:01 PM [facility] Lymphocytes % 15.6(L) 20.0 - 43.0 % 01/17/2021 12:01 PM [facility] Monocytes % 8.2 5.0 - 13.0 % 01/17/2021 12:01 PM [facility] Eosinophils % 3.4 0.0 - 6.0 % 01/17/2021 12:01 PM [facility] Basophils % 0.3 0.0 - 2.0 % 01/17/2021 12:01 PM [facility] Immature Granulocytes 0.4 0 - 1 % 01/17/2021 12:01 PM [facility] Neutrophil Absolute 11.42(H) 2.01 - 7.14 x10E9/L 01/17/2021 12:01 PM [facility] Lymphocytes Absolute 2.46 1.07 - 3.94 x10E9/L 01/17/2021 12:01 PM [facility] Monocytes Absolute 1.29(H) 0.26 - 1.07 x10E9/L 01/17/2021 12:01 PM [facility] Eosinophils Absolute 0.53(H) 0 - 0.47 x10E9/L 01/17/2021 12:01 PM [facility] Basophils Absolute 0.04 0 - 0.08 x10E9/L 01/17/2021 12:01 PM [facility] Immature Granulocytes Absolute 0.07(H) 0.00 - 0.06 x10E9/L 01/17/2021 12:01 PM CDT [facility] nRBC Auto 0 /100 WBC 01/17/2021 12:01 PM CDT [facility] Blood BLOOD SPECIMEN / Unknown Venipuncture / Unknown 01/17/2021 5:48 AM CDT 01/17/2021 11:10 AM CDT Titi Nelson LAB - HEMATOLOGY ORD ERABLES Performing Organization Address City/State/[facility] Co de Phone Number [facility] [address] [place], [place] [phone] documented in this encounter Visit Diagnoses Not on filedocumented in this encounter
--- OUTSIDE RECORDS SUMMARY | 2024-06-28 19:04 | XMS_ITS | Referral Summary ---
Author Organization [facility] [address] Address [address] [place] [address] Care Team Providers Care Strategic Solutions Consultant Name Role Phone Chester Ghosh MD Primary Care Provider [phone]- [phone] Allergies No known active allergies Medications SYMBICORT 160-4.5 mcg/actuation inhaler INHALE 2 PUFFS BY MOUTH EVERY 12 HOURS 0 9 Active ipratropium-alb uterol (DUO-NEB) 0.5-2.5 mg/3 mL nebulizer solution USE 1 AMPULE IN NEBULIZER 4 TIMES DAILY 0 9 Active nitroglycerin (NITROSTAT) 0.4 mg SL tablet DISSOLVE ONE TABLET UNDER THE TONGUE EVERY 5 MINUTES NEEDED FOR CHEST PAIN. DO NOT EXCEED A TOTAL OF 3 DOSES IN 15 MINUTES. IF NO RELIEF 3 9 Active amLODIPine (NORVASC) 5 mg tablet 9 Active atorvastatin (LIPITOR) 40 mg tablet 9 Active levothyroxine (SYNTHROID, LEVOTHROID) 50 mcg tablet 9 Active clopidogrel (PLAVIX) 75 mg tablet TAKE 1 TABLET BY MOUTH IN THE MORNING 90 tablet 2 9 Active calcium carbonate-vit D3-min 600 mg calcium- 400 unit tablet Take by mouth Acti ve aspirin 81 mg enteric coated tablet Take 81 mg by mouth daily Active tiotropium bromide (SPIRIVA RESPIMAT) 2.5 mcg/actuation inhaler Inhale Active Active Problems Problem Noted Date Diagnosed Date Coronary artery disease invo lving [place] coronary artery of [place] heart without angina pectoris 11/21/2018 COPD (chronic obstructive pulmonary disease) Essential hypertension 11/21/2018 Presence of stent in coronary artery 11/21/2018 History of non-ST elevation myocardial infarctio n (NSTEMI) 11/21/2018 Social History Tobacco Use Types Packs/Day Years Used Date Smoking Tobacco: Never Smokeless Tobacco: Never Tobacco Cessation:Counseling Given: Yes Alcohol Use Standard Drinks/Week Comments Never 0 (1 standard drink = 0.6 oz pur e alcohol) AUDIT-C Answer Date Recorded Frequency of Alcohol Consumption Never 11/21/2018 Average Number of Drinks Not on file 019 Frequency of Binge Drinking Not on file 10/26 Personal Safety Answer Date Recorded Getting School Help Needed Not on file 07/27 Comments Unknown Sex and Gender Information Value Date Recorded Sex Assigned at Not on file Legal Sex Female 9:19 AM CDT Gender Identity Not on file Sexual Orientation Not on file Last Filed Vital Signs Vital Sign Reading Time Taken Comments Blood Pressure 112/63 01/14/2021 9:30 AM CDT Pulse 88 01/14/2021 9:30 AM CDT Temperature - - Respiratory Rate 18 01/14/2021 9:30 AM CDT Oxygen Saturation 99% 01/14/2021 9:30 AM CDT Inhaled Oxygen Concentration - - Weight 76.2 kg (168 lb) 01/13/2021 10:11 PM CDT Height 162.6 cm (5' 4 ) 01/13/2021 10:11 PM CDT Body Mass Index 28.84 01/13/2021 10:11 PM CDT Plan of Treatment Not on file Insurance [facility] MEDICARE [facility] MEDIC[facility] Address: [facility] [id number] [place] [address] MEDICARE [employer]UTIONS Care Teams Strategic Solutions Consultant Relationship Specialty Start Date End Date Chester Ghosh MD [address] [place] [address] PCP - General Internal Medicine 10/27/18
--- OUTSIDE RECORDS SUMMARY | 2024-06-28 19:04 | XMS_ITS ---
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-10-CM) ACTIVE 01/19/2021 MUSCLE WEAKNESS (GENERALIZED) (M62.81 - ICD-10-CM) ACT RAMAKRISHNA 01/19/2021 UNSTEADINESS ON FEET (R26.81 - ICD-10-CM) ACTIVE 01/19/2021 OTHER ABNORMALITIES OF GAIT AND MOBILITY (R26.89 - ICD-10-CM) ACTIVE 01/19/2021 OTHER LACK OF COORDINATION (R27.8 - ICD-10-CM) ACTIVE 01/19/2021 WEAKNESS (R53.1 - ICD-10-CM) ACTIVE 01/19/2021 ATHEROSCLEROTIC HEART DISEAS E OF [place] CORONARY ARTERY WITHOUT ANGINA PECTORIS (I25.10 - ICD-10-CM) ACTIVE 01/19/2021 ESSENTIAL (PRIMARY) HYPERTENSION (I10 - ICD-10-CM) ACT RAMAKRISHNA 01/19/2021 OLD MYOCARDIAL INFARCTION (I25.2 - ICD-10-CM) ACTIVE 01/19/2021 HYPOTHYROIDISM, UNSPECIFIED (E03.9 - ICD-10-CM) ACTIVE 01/19/2021 MAJOR DEPRESSIVE DISORDER, R ECURRENT, MODERATE (F33.1 - ICD-10-CM) ACTIVE 01/19/2021 SEPSIS, UNSPECIFIED ORGANISM (A41.9 - ICD-10-CM) ACTIV E 01/19/2021 ELEVATION OF LEVELS OF LIVER TRANSAMINASE LEVELS (R74.01 - ICD-10-CM) ACTIVE 01/19/2021 Encounters Encounter Performer Performer Role Encounter Diagnoses Location Date Discharge - Discharged to home or self care - Home - Other [place] 01/19/2021 05:47 pm EDT - 01/27/2021 02:49 pm EDT Social History
--- OUTSIDE RECORDS SUMMARY | 2024-06-28 19:04 | XMS_ITS | Clinical Summary ---
Author Organization [facility] [address] Address [address] [place] [address] Care Team Providers Care Saddle Cutter Name Role Phone Chester Ghosh MD Primary Care Provider [phone]- [phone] Allergies No known active allergies Medications SYMBICORT [...] Diagnosed Date Coronary artery disease invo lving [place] coronary artery of [place] heart without angina pectoris 11/21/2018 COPD (chronic obstructive pulmonary disease) Essential hypertension 11/21/2018 Presence of stent in coronary artery 11/21/2018 History of non-ST elevation myocardial infarctio n (NSTEMI) 11/21/2018 Medical History Medical History Date Comments Thyroid disease Hyperlipidemia Family History Medical History Relation Name Comments Cancer Brother Stroke Father Cancer Sister 1 No Known Problems Sister 2 opertation complications Sister 2 Relation Name Status Comments Brother (Age 65) Father Mother Alive Sister 1 (Age 67) Sister 2 (Age 29) Social History Tobacco Use Types Packs/Day Years [...] on file Sexual Orientation Not on file Obstetrics History Last Filed Vital Signs Vital Sign Reading [...] Plan of Treatment Not on file Insurance [employer] MEDICARE MEDICARE SOLUTIONS Care Teams Saddle Cutter Relationship Specialty Start Date End Date Chester Ghosh MD [address] [place] [address] PCP - General Internal Medicine 10/27/18
--- OUTSIDE RECORDS SUMMARY | 2024-06-28 19:04 | XMS_ITS | Encounter Summary ---
Author Organization [facility] Address [address] [facility] [place] [address] Care Team Providers Care Oracle Database Architect Name Role Phone Unavailable Primary Care Provider Unavailabl e Encounter Details Date Type Department Care Team (Late st Contact Info) Description 01/02/2021 Lab Requisition [facility] [address] [place] [address] AakashlizzetteTiti [address] [facility] [address] [place], [place] [id number] Social History Tobacco Use Types Packs/Day Years [...] Diagnosis Comments CBC W AUTO DIFFERENTIAL STAT 01/02/2021 4:00 AM CDT COMPREHENSIVE METABOLIC PANEL STAT 01/02/2021 4:00 AM CDT documented in this encounter Results * (ABNORMAL) CBC WITH DIFFERENTIAL (01/02/2021 4:00 AM CDT) WBC 10.8(H) 4.4 - 10.7 x10E9/L 01/02/2021 11:54 AM CDT [facility] WBC Corrected 01/02/2021 11:54 AM CDT [facility] RBC 2.73(L) 3.80 - 5.20 x10E12/L 01/02/2021 11:54 AM CDT [facility] Hemoglobin 8.1(L) 12.0 - 15.6 gm/dL 01/02/2021 11:54 AM CDT [facility] Hematocrit 25.8(L) 35.9 - 45.5 % 01/02/2021 11:54 AM CDT [facility] MCV 94.5 80.7 - 98.3 fl 01/02/2021 11:54 AM CDT [facility] MCH 29.7 26.7 - 34.0 pg 01/02/2021 11:54 AM CDT [facility] MCHC 31.4 30.8 - 35.9 gm/dL 01/02/2021 11:54 AM CDT [facility] Platelet Count 491(H) 153 - 416 x10E9/L 01/02/2021 11:54 AM CDT [facility] RDW-CV 19.6(H) 12.1 - 14.9 % 01/02/2021 11:54 AM CDT [facility] MPV 11.4 9.4 - 12.9 fl 01/02/2021 11:54 AM CDT [facility] Neutrophils % 57.6 44.0 - 73.0 % 01/02/2021 11:54 AM CDT [facility] Lymphocytes % 31.6 20.0 - 43.0 % 01/02/2021 11:54 AM T [facility] Monocytes % 8.6 5.0 - 13.0 % 01/02/2021 11:54 AM CDT [facility] Eosinophils % 0.8 0.0 - 6.0 % 01/02/2021 11:54 AM CDT [facility] Basophils % 0.3 0.0 - 2.0 % 01/02/2021 11:54 AM CDT [facility] Immature Granulocytes 1.1(H) 0 - 1 % 01/02/2021 11:54 AM CDT [facility] Neutrophil Absolute 6.19 2.01 - 7.14 x10E9/L 01/02/2021 11:54 AM CDT [facility] Lymphocytes Absolute 3.40 1.07 - 3.94 x10E9/L 01/02/2021 11:54 AM CDT [facility] Monocytes Absolute 0.93 0.26 - 1.07 x10E9/L 01/02/2021 11:54 AM CDT [facility] Eosinophils Absolute 0.09 0 - 0.47 x10E9/L 01/02/2021 11:54 AM CDT [facility] Basophils Absolute 0.03 0 - 0.08 x10E9/L 01/02/2021 11:54 AM CDT [facility] Immature Granulocytes Absolute 0.12(H) 0.00 - 0.06 x10E9/L 01/02/2021 11:54 AM CDT [facility] nRBC Auto 0 /100 WBC 01/02/2021 11:[address] [facility] Blood BLOOD SPECIMEN / Unknown Venipuncture / Unknown 01/02/2021 4:00 AM CDT 01/02/2021 11:37 AM CDT Titi Nelson LAB - HEMATOLOGY ORD ERABLES [facility] [address] [place], [place] [id number] * (ABNORMAL) COMPREHENSIVE METABOLIC PANEL (01/02/2021 4:00 AM CDT) Glucose 113(H) 70 - 105 mg/dL 01/02/2021 12:[address] [facility] Sodium 138 136 - 145 mmol/L 01/02/2021 12:[address] [facility] Potassium 4.9 3.5 - 5.1 mmol/L 01/02/2021 12:[address] [facility] Chloride 99 98 - 107 mmol/L 01/02/2021 12:[address] [facility] CO2 28 23 - 31 mmol/L 01/02/2021 12:[address] [facility] Calcium 8.8 8.4 - 10.4 mg/dL 01/02/2021 12:[address] [facility] Anion Gap 11 8 - 18 mmol/L 01/02/2021 12:[address] [facility] BUN 49(H) 9.8 - 20.1 mg/dL 01/02/2021 12:[address] [facility] Creatinine 0.79 0.57 - 1.11 mg/dL 01/02/2021 12:[address] [facility] Alkaline Phosphatase 111 40 - 150 U/L 01/02/2021 12:[address] [facility] ALT 68(H) 0 - 61 U/L 01/02/2021 12:[address] [facility] AST 24 5 - 34 U/L 01/02/2021 12:[address] [facility] Protein Total 5.5(L) 6.4 - 8.3 gm/dL 01/02/2021 12:15 PM CDT [facility] Albumin 3.2 3.2 - 4.6 gm/dL 01/02/2021 12:15 PM CDT [facility] Bilirubin Total 0.2 0.2 - 1.2 mg/dL 01/02/2021 12:15 PM CDT [facility] eGFR by MDRD >60 mL/min/1.7 3m2 01/02/2021 12:15 PM CDT [facility] eGFR by MDRD >60 mL/min/1.7 3m2 01/02/2021 12:15 PM CDT [facility] Blood BLOOD SPECIMEN / Unknown Venipuncture / Unknown 01/02/2021 4:00 AM CDT 01/02/2021 11:33 AM CDT Titi Nelson LAB - CHEMISTRY BLANCO PEÑALOZA [facility] Organization Address City/State/[facility] Co de Phone Number [facility] [address] [place] [address] documented in this encounter Visit Diagnoses Not on filedocumented in this encounter
--- OUTSIDE RECORDS SUMMARY | 2024-06-28 19:04 | XMS_ITS | Encounter Summary ---
Author Organization [facility] Address [address] [facility] [place] [address] Care Team Providers Care Revising Clerk Name Role Phone Unavailable Primary Care Provider Unavailabl e Encounter Details Date Type Department Care Team (Late st Contact Info) Description 01/13/2021 Lab Requisition [facility] [address] [place] [address] Atif Anthony MD [address] [place] [address] Social History Tobacco Use Types Packs/Day Years [...] Associated Diagnosis Comments CBC W AUTO DIFFERENTIAL Routine 01/13/2021 8:50 AM CDT documented in this encounter Results * (ABNORMAL) CBC WITH DIFFERENTIAL (01/13/2021 8:50 AM CDT) WBC 18.2(H) 4.4 - 10.7 x10E9/L 01/13/2021 9:24 AM CDT [facility] WBC Corrected 01/13/2021 9:24 AM CDT [facility] RBC 3.25(L) 3.80 - 5.20 x10E12/L 01/13/2021 9:24 AM CDT [facility] Hemoglobin 9.7(L) 12.0 - 15.6 gm/dL 01/13/2021 9:24 AM CDT [facility] Hematocrit 31.3(L) 35.9 - 45.5 % 01/13/2021 9:24 AM CDT [facility] MCV 96.3 80.7 - 98.3 fl 01/13/2021 9:24 AM CDT [facility] MCH 29.8 26.7 - 34.0 pg 01/13/2021 9:24 AM CDT [facility] MCHC 31.0 30.8 - 35.9 gm/dL 01/13/2021 9:24 AM [facility] Platelet Count 407 153 - 416 x10E9/L 01/13/2021 9:24 AM [facility] RDW-CV 18.3(H) 12.1 - 14.9 % 01/13/2021 9:24 AM [facility] MPV 11.8 9.4 - 12.9 fl 01/13/2021 9:24 AM [facility] Neutrophils % 75.8(H) 44.0 - 73.0 % 01/13/2021 9:24 AM [facility] Lymphocytes % 15.2(L) 20.0 - 43.0 % 01/13/2021 9:24 AM [facility] Monocytes % 5.7 5.0 - 13.0 % 01/13/2021 9:24 AM [facility] Eosinophils % 2.4 0.0 - 6.0 % 01/13/2021 9:24 AM [facility] Basophils % 0.2 0.0 - 2.0 % 01/13/2021 9:24 AM [facility] Immature Granulocytes 0.7 0 - 1 % 01/13/2021 9:24 AM [facility] Neutrophil Absolute 13.82(H) 2.01 - 7.14 x10E9/L 01/13/2021 9:24 AM [facility] Lymphocytes Absolute 2.77 1.07 - 3.94 x10E9/L 01/13/2021 9:24 AM [facility] Monocytes Absolute 1.04 0.26 - 1.07 x10E9/L 01/13/2021 9:24 AM [facility] Eosinophils Absolute 0.44 0 - 0.47 x10E9/L 01/13/2021 9:24 AM [facility] Basophils Absolute 0.03 0 - 0.08 x10E9/L 01/13/2021 9:24 AM [facility] Immature Granulocytes Absolute 0.13(H) 0.00 - 0.06 x10E9/L 01/13/2021 9:24 AM CDT [facility] nRBC Auto 0 /100 WBC 01/13/2021 9:24 AM CDT [facility] Blood BLOOD SPECIMEN / Unknown Venipuncture / Unknown 01/13/2021 8:50 AM CDT 01/13/2021 8:50 AM CDT Atif Anthony MD LAB - HEMATOLOGY ORD ERABLES Performing Organization Address City/State/[facility] Co de Phone Number [facility] [id number] [place], [place] [phone] documented in this encounter Visit Diagnoses Not on filedocumented in this encounter
--- OUTSIDE RECORDS SUMMARY | 2024-06-28 19:04 | XMS_ITS | Encounter Summary ---
Author Organization [facility] Address [address] [facility] [place] [address] Care Team Providers Care Field Administrator Name Role Phone Unavailable Primary Care Provider Unavailabl e Encounter Details Date Type Department Care Team (Late st Contact Info) Description 01/12/2021 Lab Requisition [facility] [address] [place] [address] AakashlizzetteTiti [phone] [facility] [address] [place], [place] [id number] Social History Tobacco Use Types Packs/Day Years [...] Diagnosis Comments CBC W AUTO DIFFERENTIAL STAT 01/12/2021 3:00 AM CDT COMPREHENSIVE METABOLIC PANEL STAT 01/12/2021 3:00 AM CDT documented in this encounter Results * (ABNORMAL) CBC WITH DIFFERENTIAL (01/12/2021 3:00 AM CDT) WBC 17.3(H) 4.4 - 10.7 x10E9/L 01/12/2021 8:52 AM CDT [facility] WBC Corrected 01/12/2021 8:52 AM CDT [facility] RBC 3.20(L) 3.80 - 5.20 x10E12/L 01/12/2021 8:52 AM CDT [facility] Hemoglobin 9.6(L) 12.0 - 15.6 gm/dL 01/12/2021 8:52 AM CDT [facility] Hematocrit 30.5(L) 35.9 - 45.5 % 01/12/2021 8:52 AM CDT [facility] MCV 95.3 80.7 - 98.3 fl 01/12/2021 8:52 AM CDT [facility] MCH 30.0 26.7 - 34.0 pg 01/12/2021 8:52 AM CDT [facility] MCHC 31.5 30.8 - 35.9 gm/dL 01/12/2021 8:52 AM CDT [facility] Platelet Count 383 153 - 416 x10E9/L 01/12/2021 8:52 AM CDT [facility] RDW-CV 18.6(H) 12.1 - 14.9 % 01/12/2021 8:52 AM CDT [facility] MPV 11.7 9.4 - 12.9 fl 01/12/2021 8:52 AM CDT [facility] Neutrophils % 69.3 44.0 - 73.0 % 01/12/2021 8:52 AM CDT [facility] Lymphocytes % 21.2 20.0 - 43.0 % 01/12/2021 8:52 AM CDT [facility] Monocytes % 7.5 5.0 - 13.0 % 01/12/2021 8:52 AM CDT [facility] Eosinophils % 0.9 0.0 - 6.0 % 01/12/2021 8:52 AM CDT [facility] Basophils % 0.4 0.0 - 2.0 % 01/12/2021 8:52 AM CDT [facility] Immature Granulocytes 0.7 0 - 1 % 01/12/2021 8:52 AM CDT [facility] Neutrophil Absolute 12.02(H) 2.01 - 7.14 x10E9/L 01/12/2021 8:52 AM CDT [facility] Lymphocytes Absolute 3.67 1.07 - 3.94 x10E9/L 01/12/2021 8:52 AM CDT [facility] Monocytes Absolute 1.30(H) 0.26 - 1.07 x10E9/L 01/12/2021 8:52 AM CDT [facility] Eosinophils Absolute 0.15 0 - 0.47 x10E9/L 01/12/2021 8:52 AM CDT [facility] Basophils Absolute 0.07 0 - 0.08 x10E9/L 01/12/2021 8:52 AM CDT [facility] Immature Granulocytes Absolute 0.12(H) 0.00 - 0.06 x10E9/L 01/12/2021 8:52 AM [facility] nRBC Auto 0 /100 WBC 01/12/2021 8:52 AM [facility] Blood BLOOD SPECIMEN / Unknown Venipuncture / Unknown 01/12/2021 3:00 AM CDT 01/12/2021 8:23 AM T Titi Nelson LAB - HEMATOLOGY ORD ERABLES [facility] [address] [place] [address] * (ABNORMAL) COMPREHENSIVE METABOLIC PANEL (01/12/2021 3:00 AM CDT) Glucose 122(H) 70 - 105 mg/dL 01/12/2021 9:05 AM [facility] Sodium 141 136 - 145 mmol/L 01/12/2021 9:05 AM [facility] Potassium 4.8 3.5 - 5.1 mmol/L 01/12/2021 9:05 AM [facility] Chloride 99 98 - 107 mmol/L 01/12/2021 9:05 AM [facility] CO2 32(H) 23 - 31 mmol/L 01/12/2021 9:05 AM [facility] Calcium 9.5 8.4 - 10.4 mg/dL 01/12/2021 9:05 AM [facility] Anion Gap 10 8 - 18 mmol/L 01/12/2021 9:05 AM [facility] BUN 24(H) 9.8 - 20.1 mg/dL 01/12/2021 9:05 AM [facility] Creatinine 0.77 0.57 - 1.11 mg/dL 01/12/2021 9:05 AM [facility] Alkaline Phosphatase 144 40 - 150 U/L 01/12/2021 9:05 AM [facility] ALT 49 0 - 61 U/L 01/12/2021 9:05 AM [facility] AST 21 5 - 34 U/L 01/12/2021 9:05 AM [facility] Protein Total 5.8(L) 6.4 - 8.3 gm/dL 01/12/2021 9:05 AM CDT [facility] Albumin 3.4 3.2 - 4.6 gm/dL 01/12/2021 9:05 AM CDT [facility] Bilirubin Total 0.3 0.2 - 1.2 mg/dL 01/12/2021 9:05 AM CDT [facility] eGFR by MDRD >60 mL/min/1.7 3m2 01/12/2021 9:05 AM CDT [facility] eGFR by MDRD >60 mL/min/1.7 3m2 01/12/2021 9:05 AM CDT [facility] Blood BLOOD SPECIMEN / Unknown Venipuncture / Unknown 01/12/2021 3:00 AM CDT 01/12/2021 8:23 AM CDT Titi Nelson LAB - CHEMISTRY BLANCO [facility] Organization Address City/State/[facility] Co de Phone Number [facility] [address] [place], [place] [phone] documented in this encounter Visit Diagnoses Not on filedocumented in this encounter
--- OUTSIDE RECORDS SUMMARY | 2024-06-28 19:04 | XMS_ITS | Encounter Summary ---
Author Organization [facility] Address [address] [facility] [place] [address] Care Team Providers Care Keyboard Instrument Repairer Name Role Phone Unavailable Primary Care Provider Unavailabl e Encounter Details Date Type Department Care Team (Late st Contact Info) Description 01/09/2021 Lab Requisition [facility] [address] [place] [address] AakashlizzetteTiti [phone] [facility] [address] [place], [place] [phone] Social History Tobacco Use Types Packs/Day Years [...] Diagnosis Comments CBC W AUTO DIFFERENTIAL STAT 01/09/2021 4:12 AM CDT COMPREHENSIVE METABOLIC PANEL STAT 01/09/2021 4:12 AM CDT documented in this encounter Results * (ABNORMAL) CBC WITH DIFFERENTIAL (01/09/2021 4:12 AM CDT) WBC 18.2(H) 4.4 - 10.7 x10E9/L 01/09/2021 9:49 AM CDT [facility] WBC Corrected 01/09/2021 9:49 AM CDT [facility] RBC 3.25(L) 3.80 - 5.20 x10E12/L 01/09/2021 9:49 AM CDT [facility] Hemoglobin 9.7(L) 12.0 - 15.6 gm/dL 01/09/2021 9:49 AM CDT [facility] Hematocrit 30.9(L) 35.9 - 45.5 % 01/09/2021 9:49 AM CDT [facility] MCV 95.1 80.7 - 98.3 fl 01/09/2021 9:49 AM CDT [facility] MCH 29.8 26.7 - 34.0 pg 01/09/2021 9:49 AM CDT [facility] MCHC 31.4 30.8 - 35.9 gm/dL 01/09/2021 9:49 AM CDT [facility] Platelet Count 405 153 - 416 x10E9/L 01/09/2021 9:49 AM CDT [facility] RDW-CV 18.6(H) 12.1 - 14.9 % 01/09/2021 9:49 AM CDT [facility] MPV 11.7 9.4 - 12.9 fl 01/09/2021 9:49 AM CDT [facility] Neutrophils % 73.3(H) 44.0 - 73.0 % 01/09/2021 9:49 AM CDT [facility] Lymphocytes % 17.2(L) 20.0 - 43.0 % 01/09/2021 9:49 AM CDT [facility] Monocytes % 7.6 5.0 - 13.0 % 01/09/2021 9:49 AM CDT [facility] Eosinophils % 0.7 0.0 - 6.0 % 01/09/2021 9:49 AM CDT [facility] Basophils % 0.3 0.0 - 2.0 % 01/09/2021 9:49 AM CDT [facility] Immature Granulocytes 0.9 0 - 1 % 01/09/2021 9:49 AM CDT [facility] Neutrophil Absolute 13.31(H) 2.01 - 7.14 x10E9/L 01/09/2021 9:49 AM CDT [facility] Lymphocytes Absolute 3.12 1.07 - 3.94 x10E9/L 01/09/2021 9:49 AM CDT [facility] Monocytes Absolute 1.38(H) 0.26 - 1.07 x10E9/L 01/09/2021 9:49 AM CDT [facility] Eosinophils Absolute 0.13 0 - 0.47 x10E9/L 01/09/2021 9:49 AM CDT [facility] Basophils Absolute 0.06 0 - 0.08 x10E9/L 01/09/2021 9:49 AM CDT [facility] Immature Granulocytes Absolute 0.16(H) 0.00 - 0.06 x10E9/L 01/09/2021 9:49 AM CDT [facility] nRBC Auto 0 /100 WBC 01/09/2021 9:49 AM CDT [facility] Blood BLOOD SPECIMEN / Unknown Venipuncture / Unknown 01/09/2021 4:12 AM CDT 01/09/2021 9:13 AM CDT Titi Nelson LAB - HEMATOLOGY ORD ERABLES [facility] [address] [place] [phone] * (ABNORMAL) COMPREHENSIVE METABOLIC PANEL (01/09/2021 4:12 AM CDT) Glucose 120(H) 70 - 105 mg/dL 01/09/2021 10:[address] [facility] Sodium 139 136 - 145 mmol/L 01/09/2021 10:[address] [facility] Potassium 5.0 3.5 - 5.1 mmol/L 01/09/2021 10:[address] [facility] Chloride 98 98 - 107 mmol/L 01/09/2021 10:[address] [facility] CO2 29 23 - 31 mmol/L 01/09/2021 10:[address] [facility] Calcium 9.3 8.4 - 10.4 mg/dL 01/09/2021 10:[address] [facility] Anion Gap 12 8 - 18 mmol/L 01/09/2021 10:[address] [facility] BUN 28(H) 9.8 - 20.1 mg/dL 01/09/2021 10:[address] [facility] Creatinine 0.70 0.57 - 1.11 mg/dL 01/09/2021 10:[address] [facility] Alkaline Phosphatase 157(H) 40 - 150 U/L 01/09/2021 10:[address] [facility] ALT 64(H) 0 - 61 U/L 01/09/2021 10:[address] [facility] AST 35(H) 5 - 34 U/L 01/09/2021 10:12 AM CDT [facility] Protein Total 6.1(L) 6.4 - 8.3 gm/dL 01/09/2021 10:12 AM CDT [facility] Albumin 3.5 3.2 - 4.6 gm/dL 01/09/2021 10:12 AM CDT [facility] Bilirubin Total 0.2 0.2 - 1.2 mg/dL 01/09/2021 10:12 AM CDT [facility] eGFR by MDRD >60 mL/min/1.7 3m2 01/09/2021 10:12 AM CDT [facility] eGFR by MDRD >60 mL/min/1.7 3m2 01/09/2021 10:12 AM CDT [facility] Blood BLOOD SPECIMEN / Unknown Venipuncture / Unknown 01/09/2021 4:12 AM CDT 01/09/2021 9:13 AM CDT Titi Nelson LAB - CHEMISTRY BLANCO PEÑAL[facility]ZA [facility] Organization Address City/State/ZIP Co de Phone Number [facility] [address] [place], [place] [phone] documented in this encounter Visit Diagnoses Not on filedocumented in this encounter
--- OUTSIDE RECORDS SUMMARY | 2024-06-28 19:04 | XMS_ITS | Encounter Summary ---
Author Organization [facility] Address [address] [place] [address] Care Team Providers Care Information Systems Consultant Name Role Phone Unavailable Primary Care Provider Unavailabl e Encounter Details Date Type Department Care Team (Late st Contact Info) Description 01/05/2021 Lab Requisition [facility] [address] [place] [address] Isatuocurtne[address]izzetteTiti [phone] [facility] [address] [place] [address] Social History Tobacco Use Types Packs/Day Years [...] Diagnosis Comments CBC W AUTO DIFFERENTIAL STAT 01/05/2021 4:55 AM CDT COMPREHENSIVE METABOLIC PANEL STAT 01/05/2021 4:55 AM CDT documented in this encounter Results * (ABNORMAL) CBC WITH DIFFERENTIAL (01/05/2021 4:55 AM CDT) WBC 16.3(H) 4.4 - 10.7 x10E9/L 01/05/2021 12:23 PM CDT [facility] WBC Corrected 01/05/2021 12:23 PM CDT [facility] RBC 3.51(L) 3.80 - 5.20 x10E12/L 01/05/2021 12:23 PM CDT [facility] Hemoglobin 10.4(L) 12.0 - 15.6 gm/dL 01/05/2021 12:23 PM CDT [facility] Hematocrit 33.9(L) 35.9 - 45.5 % 01/05/2021 12:23 PM CDT [facility] MCV 96.6 80.7 - 98.3 fl 01/05/2021 12:23 PM CDT [facility] MCH 29.6 26.7 - 34.0 pg 01/05/2021 12:23 PM CDT [facility] MCHC 30.7(L) 30.8 - 35.9 gm/dL 01/05/2021 12:23 PM CDT [facility] Platelet Count 513(H) 153 - 416 x10E9/L 01/05/2021 12:23 PM CDT [facility] RDW-CV 19.6(H) 12.1 - 14.9 % 01/05/2021 12:23 PM CDT [facility] MPV 11.3 9.4 - 12.9 fl 01/05/2021 12:23 PM [facility] Neutrophils % 66.6 44.0 - 73.0 % 01/05/2021 12:23 PM [facility] Lymphocytes % 22.2 20.0 - 43.0 % 01/05/2021 12:23 PM T [facility] Monocytes % 8.9 5.0 - 13.0 % 01/05/2021 12:23 PM [facility] Eosinophils % 0.7 0.0 - 6.0 % 01/05/2021 12:23 PM [facility] Basophils % 0.3 0.0 - 2.0 % 01/05/2021 12:23 PM [facility] Immature Granulocytes 1.3(H) 0 - 1 % 01/05/2021 12:23 PM [facility] Neutrophil Absolute 10.82(H) 2.01 - 7.14 x10E9/L 01/05/2021 12:23 PM [facility] Lymphocytes Absolute 3.61 1.07 - 3.94 x10E9/L 01/05/2021 12:23 PM T [facility] Monocytes Absolute 1.45(H) 0.26 - 1.07 x10E9/L 01/05/2021 12:23 PM [facility] Eosinophils Absolute 0.11 0 - 0.47 x10E9/L 01/05/2021 12:23 PM [facility] Basophils Absolute 0.05 0 - 0.08 x10E9/L 01/05/2021 12:23 PM CDT [facility] Immature Granulocytes Absolute 0.21(H) 0.00 - 0.06 x10E9/L 01/05/2021 12:23 PM CDT [facility] nRBC Auto 0 /100 WBC 01/05/2021 12:23 PM CDT [facility] Blood BLOOD SPECIMEN / Unknown Venipuncture / Unknown 01/05/2021 4:55 AM CDT 01/05/2021 11:45 AM CDT Titi Raymond Omar LAB - HEMATOLOGY ORD ERABLES [facility] [address] [place] [address] * (ABNORMAL) COMPREHENSIVE METABOLIC PANEL (01/05/2021 4:55 AM CDT) Glucose 122(H) 70 - 105 mg/dL 01/05/2021 12:48 PM CDT [facility] Sodium 142 136 - 145 mmol/L 01/05/2021 12:48 PM [facility] Potassium 4.8 3.5 - 5.1 mmol/L 01/05/2021 12:48 PM CDT [facility] Chloride 98 98 - 107 mmol/L 01/05/2021 12:48 PM CDT [facility] CO2 31 23 - 31 mmol/L 01/05/2021 12:48 PM [facility] Calcium 9.7 8.4 - 10.4 mg/dL 01/05/2021 12:48 PM [facility] Anion Gap 13 8 - 18 mmol/L 01/05/2021 12:48 PM T [facility] BUN 24(H) 9.8 - 20.1 mg/dL 01/05/2021 12:48 PM CDT [facility] Creatinine 0.74 0.57 - 1.11 mg/dL 01/05/2021 12:48 PM CDT [facility] Alkaline Phosphatase 150 40 - 150 U/L 01/05/2021 12:48 PM CDT [facility] ALT 65(H) 0 - 61 U/L 01/05/2021 12:48 PM CDT [facility] AST 24 5 - 34 U/L 01/05/2021 12:48 PM CDT [facility] Protein Total 6.2(L) 6.4 - 8.3 gm/dL 01/05/2021 12:48 PM CDT [facility] Albumin 3.6 3.2 - 4.6 gm/dL 01/05/2021 12:48 PM CDT [facility] Bilirubin Total 0.3 0.2 - 1.2 mg/dL 01/05/2021 12:48 PM CDT [facility] eGFR by MDRD >60 mL/min/1.7 3m2 01/05/2021 12:48 PM CDT [facility] eGFR by MDRD >60 mL/min/1.7 3m2 01/05/2021 12:48 PM CDT [facility] Blood BLOOD SPECIMEN / Unknown Venipuncture / Unknown 01/05/2021 4:55 AM CDT 01/05/2021 11:45 AM CDT Titi Nelson LAB - CHEMISTRY [facility]CO [facility] Organization Address City/State/[facility] Co de Phone Number [facility] [address] [place] [address] documented in this encounter Visit Diagnoses Not on filedocumented in this encounter
--- OUTSIDE RECORDS SUMMARY | 2024-06-28 19:04 | XMS_ITS | Encounter Summary ---
Author Organization [facility] Address [address] [place] [address] Care Team Providers Care School Janitor Name Role Phone Unavailable Primary Care Provider Unavailabl e Encounter Details Date Type Department Care Team (Late st Contact Info) Description 01/16/2021 Lab Requisition [facility] [address] [place] [address] AakashlizzetteTiti [id number] [facility] [address] [place], [place] [phone] Social History Tobacco Use Types Packs/Day Years [...] Diagnosis Comments CBC W AUTO DIFFERENTIAL STAT 01/16/2021 4:00 AM CDT COMPREHENSIVE METABOLIC PANEL STAT 01/16/2021 4:00 AM CDT documented in this encounter Results * (ABNORMAL) CBC WITH DIFFERENTIAL (01/16/2021 4:00 AM CDT) WBC 17.7(H) 4.4 - 10.7 x10E9/L 01/16/2021 8:58 AM CDT [facility] WBC Corrected 01/16/2021 8:58 AM CDT [facility] RBC 2.82(L) 3.80 - 5.20 x10E12/L 01/16/2021 8:58 AM CDT [facility] Hemoglobin 8.4(L) 12.0 - 15.6 gm/dL 01/16/2021 8:58 AM CDT [facility] Hematocrit 26.9(L) 35.9 - 45.5 % 01/16/2021 8:58 AM CDT [facility] MCV 95.4 80.7 - 98.3 fl 01/16/2021 8:58 AM CDT [facility] MCH 29.8 26.7 - 34.0 pg 01/16/2021 8:58 AM CDT [facility] MCHC 31.2 30.8 - 35.9 gm/dL 01/16/2021 8:58 AM CDT [facility] Platelet Count 391 153 - 416 x10E9/L 01/16/2021 8:58 AM CDT [facility] RDW-CV 18.3(H) 12.1 - 14.9 % 01/16/2021 8:58 AM CDT [facility] MPV 11.5 9.4 - 12.9 fl 01/16/2021 8:58 AM T [facility] Neutrophils % 74.9(H) 44.0 - 73.0 % 01/16/2021 8:58 AM T [facility] Lymphocytes % 14.0(L) 20.0 - 43.0 % 01/16/2021 8:58 AM CDT [facility] Monocytes % 7.7 5.0 - 13.0 % 01/16/2021 8:58 AM [facility] Eosinophils % 2.6 0.0 - 6.0 % 01/16/2021 8:58 AM T [facility] Basophils % 0.3 0.0 - 2.0 % 01/16/2021 8:58 AM CDT [facility] Immature Granulocytes 0.5 0 - 1 % 01/16/2021 8:58 AM T [facility] Neutrophil Absolute 13.25(H) 2.01 - 7.14 x10E9/L 01/16/2021 8:58 AM CDT [facility] Lymphocytes Absolute 2.47 1.07 - 3.94 x10E9/L 01/16/2021 8:58 AM CDT [facility] Monocytes Absolute 1.36(H) 0.26 - 1.07 x10E9/L 01/16/2021 8:58 AM CDT [facility] Eosinophils Absolute 0.46 0 - 0.47 x10E9/L 01/16/2021 8:58 AM CDT [facility] Basophils Absolute 0.05 0 - 0.08 x10E9/L 01/16/2021 8:58 AM CDT [facility] Immature Granulocytes Absolute 0.09(H) 0.00 - 0.06 x10E9/L 01/16/2021 8:58 AM CDT [facility] nRBC Auto 0 /100 WBC 01/16/2021 8:58 AM CDT [facility] Blood BLOOD SPECIMEN / Unknown Venipuncture / Unknown 01/16/2021 4:00 AM CDT 01/16/2021 8:41 AM CDT Titi Nelson LAB - HEMATOLOGY ORD ERABLES [facility] [address] [place] [address] * (ABNORMAL) COMPREHENSIVE METABOLIC PANEL (01/16/2021 4:00 AM CDT) Glucose 86 70 - 105 mg/dL 01/16/2021 9:15 AM [facility] Sodium 140 136 - 145 mmol/L 01/16/2021 9:15 AM [facility] Potassium 3.9 3.5 - 5.1 mmol/L 01/16/2021 9:15 AM [facility] Chloride 100 98 - 107 mmol/L 01/16/2021 9:15 AM [facility] CO2 29 23 - 31 mmol/L 01/16/2021 9:15 AM [facility] Calcium 9.1 8.4 - 10.4 mg/dL 01/16/2021 9:15 AM [facility] Anion Gap 11 8 - 18 mmol/L 01/16/2021 9:15 AM [facility] BUN 12 9.8 - 20.1 mg/dL 01/16/2021 9:15 AM T [facility] Creatinine 0.70 0.57 - 1.11 mg/dL 01/16/2021 9:15 AM [facility] Alkaline Phosphatase 106 40 - 150 U/L 01/16/2021 9:15 AM CDT [facility] ALT 34 0 - 61 U/L 01/16/2021 9:15 AM CDT [facility] AST 22 5 - 34 U/L 01/16/2021 9:15 AM [facility] Protein Total 5.2(L) 6.4 - 8.3 gm/dL 01/16/2021 9:15 AM CDT [facility] Albumin 3.1(L) 3.2 - 4.6 gm/dL 01/16/2021 9:15 AM CDT [facility] Bilirubin Total 0.3 0.2 - 1.2 mg/dL 01/16/2021 9:15 AM CDT [facility] eGFR by MDRD >60 mL/min/1.7 3m2 01/16/2021 9:15 AM CDT [facility] eGFR by MDRD >60 mL/min/1.7 3m2 01/16/2021 9:15 AM CDT [facility] Blood BLOOD SPECIMEN / Unknown Venipuncture / Unknown 01/16/2021 4:00 AM CDT 01/16/2021 8:41 AM CDT [facility] - CHEMISTRY [facility]AN[facility] Organization Address City/State/[place] Co de Phone Number [facility] [address] [place] [address] documented in this encounter Visit Diagnoses Not on filedocumented in this encounter
--- OUTSIDE RECORDS SUMMARY | 2024-06-28 19:04 | XMS_ITS | Encounter Summary ---
Author Organization [facility] Address [address] [place] [address] Care Team Providers Care Sleeve Turner Name Role Phone Unavailable Primary Care Provider Unavailabl e Encounter Details Date Type Department Care Team (Late st Contact Info) Description 12/29/2020 Lab Requisition [facility] [address] [place] [address] Titi Nelson [place] [address] [facility] [address] [place], [place] [id number] Social History Tobacco Use Types Packs/Day Years Used Date Smoking Tobacco: Never Assessed Sex and Gender Information Value Date Recorded Sex Assigned at Not on file Gender Identity Not on file Sexual Orientation Not on file documented as of this encounter Plan of Treatment Not on file documented as of this encounter Procedures Procedure Name Priority Date/Time Associated Diagnosis Comments URINALYSIS REFLEX TO MICROSCOPIC NO CULTURE STAT 12/29/2020 3:40 AM CDT URINE MICROSCOPIC ONLY STAT 3:40 AM CDT PTT Routine 12/29/2020 3:40 AM CDT PT-INR Routine 12/29/2020 3:40 AM CDT CBC W AUTO DIFFERENTIAL STAT 12/29/2020 3:40 AM CDT COMPREHENSIVE METABOLIC PANEL STAT 12/29/2020 3:40 AM CDT documented in this encounter Results * (ABNORMAL) URINE MICROSCOPIC ONLY (12/29/2020 3:40 AM CDT) RBC UA 11-20(A) None Seen, 0-2, 3-5 # /hpf 12/29/2020 8:51 AM CDT [facility] WBC UA 0-5 None Seen, 0-5 # /hpf 12/29/2020 8:51 AM CDT [facility] Bacteria UA None Seen None Seen 12/29/2020 8:51 AM CDT [facility] Squamous Epithelial Cells None Seen None Seen, 0-2, 3-5 /hpf 12/29/2020 8:51 AM CDT [facility] Mucus UA 1+ /LPF 12/29/2020 8:51 AM CDT [facility] Urine URINE SPECIMEN OBTAINED BY CLEAN CATCH PROCEDURE / Unknown Collection / Unknown 12/29/2020 3:40 AM CDT 12/29/2020 8:28 AM CDT Narrative [facility] - 12/29/2020 8:51 AM CDT Titi Nelson LAB - URINALYSIS ORD ERABLES Performing Organization Address [facility]/ZIP Co de Phone Number [facility] [address] [place] [phone] * PTT (12/29/2020 3:40 AM CDT) PTT 30.6 23.0 - 38.4 sec 12/29/2020 8:47 AM CDT [facility] Blood BLOOD SPECIMEN / Unknown Venipuncture / Unknown 12/29/2020 3:40 AM CDT 12/29/2020 8:32 AM CDT Narrative [facility] - 12/29/2020 8:47 AM CDT Heparin Therapeutic Range for PTT: ??71.0 - 109.0 seconds. Titi Nelson LAB - COAGULATION OR DERABLES Performing Organization Address City/[facility]/ZIP Co de Phone Number [facility] [address] [place] [phone] * PT-INR (12/29/2020 3:40 AM CDT) PT 13.6 12.1 - 14.8 sec 12/29/2020 8:46 AM CDT [facility] INR 1.0 0.9 - 1.1 12/29/2020 8:46 AM CDT [facility] Blood BLOOD SPECIMEN / Unknown Venipuncture / Unknown 12/29/2020 3:40 AM CDT 12/29/2020 8:32 AM CDT [facility] - 12/29/2020 8:46 AM CDT Conventional Warfarin Anticoagulant Therapy: INR Reference Range: ??2.0-3.0 Intensive Warfarin Anticoagulant Therapy: INR Reference Range: ? 2.5-3.5 Titi Nelson LAB - COAGULATION OR DERABLES [facility] [address] [place] [address] * (ABNORMAL) CBC WITH DIFFERENTIAL (12/29/2020 3:40 AM CDT) [facility] Signature WBC 12.6(H) 4.4 - 10.7 x10E9/L 12/29/2020 8:39 AM CDT [facility] WBC Corrected 12/29/2020 8:39 AM CDT [facility] RBC 2.93(L) 3.80 - 5.20 x10E12/L 12/29/2020 8:39 AM CDT [facility] Hemoglobin 8.4(L) 12.0 - 15.6 gm/dL 12/29/2020 8:39 AM CDT [facility] Hematocrit 27.2(L) 35.9 - 45.5 % 12/29/2020 8:39 AM CDT [facility] MCV 92.8 80.7 - 98.3 fl 12/29/2020 8:39 AM CDT [facility] MCH 28.7 26.7 - 34.0 pg 12/29/2020 8:39 AM CDT [facility] MCHC 30.9 30.8 - 35.9 gm/dL 12/29/2020 8:39 AM CDT [facility] Platelet Count 515(H) 153 - 416 x10E9/L 12/29/2020 8:39 AM CDT [facility] RDW-CV 19.4(H) 12.1 - 14.9 % 12/29/2020 8:39 AM CDT [facility] MPV 11.2 9.4 - 12.9 fl 12/29/2020 8:39 AM CDT [facility] Neutrophils % 82.5(H) 44.0 - 73.0 % 12/29/2020 8:39 AM CDT [facility] Lymphocytes % 9.4(L) 20.0 - 43.0 % 12/29/2020 8:39 AM CDT [facility] Monocytes % 7.4 5.0 - 13.0 % 12/29/2020 8:39 AM CDT [facility] Eosinophils % 0.0 0.0 - 6.0 % 12/29/2020 8:39 AM CDT [facility] Basophils % 0.1 0.0 - 2.0 % 12/29/2020 8:39 AM CDT [facility] Immature Granulocytes 0.6 0 - 1 % 12/29/2020 8:39 AM CDT [facility] Neutrophil Absolute 10.40(H) 2.01 - 7.14 x10E9/L 12/29/2020 8:39 AM CDT [facility] Lymphocytes Absolute 1.18 1.07 - 3.94 x10E9/L 12/29/2020 8:39 AM CDT [facility] Monocytes Absolute 0.93 0.26 - 1.07 x10E9/L 12/29/2020 8:39 AM CDT [facility] Eosinophils Absolute 0.00 0 - 0.47 x10E9/L 12/29/2020 8:39 AM CDT [facility] Basophils Absolute 0.01 0 - 0.08 x10E9/L 12/29/2020 8:39 AM CDT [facility] Immature Granulocytes Absolute 0.08(H) 0.00 - 0.06 x10E9/L 12/29/2020 8:39 AM CDT [facility] nRBC Auto 0 /100 WBC 12/29/2020 8:39 AM T [facility] Blood BLOOD SPECIMEN / Unknown Venipuncture / Unknown 12/29/2020 3:40 AM CDT 12/29/2020 8:28 AM CDT Titi Nelson LAB - HEMATOLOGY ORD ERABLES [facility] [address] [place] [address] * (ABNORMAL) COMPREHENSIVE METABOLIC PANEL (12/29/2020 3:40 AM CDT) Glucose 162(H) 70 - 105 mg/dL 12/29/2020 8:48 AM CDT [facility] Sodium 141 136 - 145 mmol/L 12/29/2020 8:48 AM CDT [facility] Potassium 4.5 3.5 - 5.1 mmol/L 12/29/2020 8:48 AM CDT [facility] Chloride 101 98 - 107 mmol/L 12/29/2020 8:48 AM CDT [facility] CO2 30 23 - 31 mmol/L 12/29/2020 8:48 AM CDT [facility] Calcium 9.0 8.4 - 10.4 mg/dL 12/29/2020 8:48 AM CDT [facility] Anion Gap 10 8 - 18 mmol/L 12/29/2020 8:48 AM CDT [facility] BUN 21(H) 9.8 - 20.1 mg/dL 12/29/2020 8:48 AM CDT [facility] Creatinine 0.71 0.57 - 1.11 mg/dL 12/29/2020 8:48 AM CDT [facility] Alkaline Phosphatase 115 40 - 150 U/L 12/29/2020 8:48 AM CDT [facility] ALT 84(H) 0 - 61 U/L 12/29/2020 8:48 AM CDT [facility] AST 26 5 - 34 U/L 12/29/2020 8:48 AM [facility] Protein Total 6.1(L) 6.4 - 8.3 gm/dL 12/29/2020 8:48 AM CDT [facility] Albumin 3.7 3.2 - 4.6 gm/dL 12/29/2020 8:48 AM CDT [facility] Bilirubin Total 0.4 0.2 - 1.2 mg/dL 12/29/2020 8:48 AM CDT [facility] eGFR by MDRD >60 mL/min/1.7 3m2 12/29/2020 8:48 AM CDT [facility] eGFR by MDRD >60 mL/min/1.7 3m2 12/29/2020 8:48 AM CDT [facility] Blood BLOOD SPECIMEN / Unknown Venipuncture / Unknown 12/29/2020 3:40 AM CDT 12/29/2020 8:28 AM CDT Titi Nelson LAB - CHEMISTRY BLANCO PEÑALOZA [facility] [address] [place] [address] * (ABNORMAL) URINALYSIS REFLEX TO MICROSCOPIC NO CULTURE (12/29/2020 3:40 AM CDT) Color UA Yellow Straw, Yellow 12/29/2020 8:51 AM CDT [facility] Clarity UA Slt Cloudy(A) Clear 12/29/2020 8:51 AM CDT [facility] Glucose UA 3+(A) Negative 12/29/2020 8:51 AM CDT [facility] Bilirubin UA Negative Negative 12/29/2020 8:51 AM CDT [facility] Ketone UA Negative Negative 12/29/2020 8:51 AM CDT [facility] Specific [place] UA 1.018 1.005 - 1.030 12/29/2020 8:51 AM CDT [facility] Blood UA Negative Negative 12/29/2020 8:51 AM CDT [facility] pH UA 6.0 5.0 - 8.0 pH 12/29/2020 8:51 AM CDT [facility] Protein UA 1+(A) Negative 12/29/2020 8:51 AM CDT [facility] Urobilinogen UA Negative Negative mg/dL 12/29/2020 8:51 AM CDT [facility] Nitrite UA Negative Negative 12/29/2020 8:51 AM CDT [facility] Leukocyte UA Negative Negative 12/29/2020 8:51 AM CDT [facility] Urine Microscopy Urine microscopy to follow 12/29/2020 8:51 AM CDT [facility] Urine URINE SPECIMEN OBTAINED BY CLEAN CATCH PROCEDURE / Unknown Collection / Unknown 12/29/2020 3:40 AM CDT 12/29/2020 8:28 AM CDT Narrative [facility] - 12/29/2020 8:51 AM CDT Ascorbic Acid can cause false negative urine strip tests for blood, glucose, nitrite, and bilirubin. Titi Nelson LAB - URINALYSIS ORD ERABLES Performing Organization Address City/State/[facility] Co de Phone Number [facility] [address] [place] [address] documented in this encounter Visit Diagnoses Not on filedocumented in this encounter
--- OUTSIDE RECORDS SUMMARY | 2024-06-28 19:05 | XMS_ITS | Patient Health Summary ---
Author Organization [facility] Address [address] [place] [address] Care Team Providers Care Data Acquisition Technician Name Role Phone Unavailable Primary Care Provider Unavailabl e Note from [facility],non-owned Affiliates and Associated Physician Practices is amultiple site organization consisting of ambulatory clinics and hospital sitesin [place], [place], [place] and [place]. This disclosure is being madepursuant to the Care Everywhere program and may not contain all information available regarding this patient. Last updated 18.[facility] Social History Tobacco Use Types Packs/Day Years Used Date Smoking Tobacco: Never Assessed Sex and Gender Information Value Date Recorded Sex Assigned at Not on file Gender Identity Not on file Sexual Orientation Not on file Procedures * COMPREHENSIVE METABOLIC PANEL(Performed 01/19/2021) * CBC W AUTO DIFFERENTIAL(Performed 01/19/2021) * CBC W AUTO DIFFERENTIAL(Performed 01/17/2021) * CBC W AUTO DIFFERENTIAL(Performed 01/16/2021) * COMPREHENSIVE METABOLIC PANEL(Performed 01/16/2021) * CBC W AUTO DIFFERENTIAL(Performed 01/13/2021) * CBC W AUTO DIFFERENTIAL(Performed 01/12/2021) * COMPREHENSIVE METABOLIC PANEL(Performed 01/12/2021) * URINE MICROSCOPIC ONLY(Performed 01/11/2021) * URINALYSIS REFLEX TO MICROSCOPIC NO CULTURE(Performed 01/11/2021) * CBC W AUTO DIFFERENTIAL(Performed 01/11/2021) * CBC W AUTO DIFFERENTIAL(Performed 01/10/2021) * COMPREHENSIVE METABOLIC PANEL(Performed 01/10/2021) * CBC W AUTO DIFFERENTIAL(Performed 01/09/2021) * COMPREHENSIVE METABOLIC PANEL(Performed 01/09/2021) * CBC W AUTO DIFFERENTIAL(Performed 01/06/2021) * COMPREHENSIVE METABOLIC PANEL(Performed 01/06/2021) * CBC W AUTO DIFFERENTIAL(Performed 01/05/2021) * COMPREHENSIVE METABOLIC PANEL(Performed 01/05/2021) * CBC W AUTO DIFFERENTIAL(Performed 01/02/2021) * COMPREHENSIVE METABOLIC PANEL(Performed 01/02/2021) * URINE MICROSCOPIC ONLY(Performed 12/29/2020) * PTT(Performed 12/29/2020) * PT-INR(Performed 12/29/2020) * CBC W AUTO DIFFERENTIAL(Performed 12/29/2020) * COMPREHENSIVE METABOLIC PANEL(Performed 12/29/2020) * URINALYSIS REFLEX TO MICROSCOPIC NO CULTURE(Performed 12/29/2020) Results * (ABNORMAL) CBC WITH DIFFERENTIAL (01/19/2021 4:00 AM CDT) Only the most recent of12 resultswithin the time period is included. WBC 17.4(H) 4.4 - 10.7 x10E9/L 01/19/2021 10:39 AM CDT [facility] WBC Corrected 01/19/2021 10:39 AM CDT [facility] RBC 2.98(L) 3.80 - 5.20 x10E12/L 01/19/2021 10:39 AM CDT [facility] Hemoglobin 8.9(L) 12.0 - 15.6 gm/dL 01/19/2021 10:39 AM CDT [facility] Hematocrit 28.7(L) 35.9 - 45.5 % 01/19/2021 10:39 AM CDT [facility] MCV 96.3 80.7 - 98.3 fl 01/19/2021 10:39 AM CDT [facility] MCH 29.9 26.7 - 34.0 pg 01/19/2021 10:39 AM CDT [facility] MCHC 31.0 30.8 - 35.9 gm/dL 01/19/2021 10:39 AM CDT [facility] Platelet Count 439(H) 153 - 416 x10E9/L 01/19/2021 10:39 AM CDT [facility] RDW-CV 18.8(H) 12.1 - 14.9 % 01/19/2021 10:39 AM CDT [facility] MPV 11.4 9.4 - 12.9 fl 01/19/2021 10:39 AM CDT [facility] Neutrophils % 67.8 44.0 - 73.0 % 01/19/2021 10:39 AM CDT [facility] Lymphocytes % 19.8(L) 20.0 - 43.0 % 01/19/2021 10:39 AM CDT [facility] Monocytes % 8.6 5.0 - 13.0 % 01/19/2021 10:39 AM CDT [facility] Eosinophils % 3.2 0.0 - 6.0 % 01/19/2021 10:39 AM CDT [facility] Basophils % 0.3 0.0 - 2.0 % 01/19/2021 10:39 AM CDT [facility] Immature Granulocytes 0.3 0 - 1 % 01/19/2021 10:39 AM CDT [facility] Neutrophil Absolute 11.80(H) 2.01 - 7.14 x10E9/L 01/19/2021 10:39 AM CDT [facility] Lymphocytes Absolute 3.44 1.07 - 3.94 x10E9/L 01/19/2021 10:39 AM CDT [facility] Monocytes Absolute 1.49(H) 0.26 - 1.07 x10E9/L 01/19/2021 10:39 AM CDT [facility] Eosinophils Absolute 0.55(H) 0 - 0.47 x10E9/L 01/19/2021 10:39 AM CDT [facility] Basophils Absolute 0.05 0 - 0.08 x10E9/L 01/19/2021 10:39 AM CDT [facility] Immature Granulocytes Absolute 0.05 0.00 - 0.06 x10E9/L 01/19/2021 10:39 AM CDT [facility] nRBC Auto 0 /100 WBC 01/19/2021 10:39 AM CDT [facility] Blood BLOOD SPECIMEN / Unknown Venipuncture / Unknown 01/19/2021 4:00 AM CDT 01/19/2021 10:05 AM CDT Titi Nelson LAB - HEMATOLOGY ORD ERABLES [facility] [address] [place] [address] * (ABNORMAL) COMPREHENSIVE METABOLIC PANEL (01/19/2021 4:00 AM CDT) Only the most recent of9 resultswithin the time period is included. [facility] Glucose 94 70 - 105 mg/dL 01/19/2021 10:56 AM [facility] Sodium 140 136 - 145 mmol/L 01/19/2021 10:56 AM [facility] Potassium 4.0 3.5 - 5.1 mmol/L 01/19/2021 10:56 AM [facility] Chloride 104 98 - 107 mmol/L 01/19/2021 10:56 AM [facility] CO2 22(L) 23 - 31 mmol/L 01/19/2021 10:56 AM [facility] Calcium 8.9 8.4 - 10.4 mg/dL 01/19/2021 10:56 AM [facility] Anion Gap 14 8 - 18 mmol/L 01/19/2021 10:56 AM [facility] BUN 7(L) 9.8 - 20.1 mg/dL 01/19/2021 10:56 AM [facility] Creatinine 0.68 0.57 - 1.11 mg/dL 01/19/2021 10:56 AM [facility] Alkaline Phosphatase 102 40 - 150 U/L 01/19/2021 10:56 AM [facility] ALT 34 0 - 61 U/L 01/19/2021 10:56 AM [facility] AST 25 5 - 34 U/L 01/19/2021 10:56 AM [facility] Protein Total 5.2(L) 6.4 - 8.3 gm/dL 01/19/2021 10:56 AM [facility] Albumin 3.0(L) 3.2 - 4.6 gm/dL 01/19/2021 10:56 AM [facility] Bilirubin Total 0.2 0.2 - 1.2 mg/dL 01/19/2021 10:56 AM [facility] eGFR by MDRD >60 mL/min/1.7 3m2 01/19/2021 10:56 AM [facility] eGFR by MDRD >60 mL/min/1.7 3m2 01/19/2021 10:56 AM [facility] Blood BLOOD SPECIMEN / Unknown Venipuncture / Unknown 01/19/2021 4:00 AM CDT 01/19/2021 10:05 AM CDT Titi Nelson LAB - CHEMISTRY BLANCO PEÑALOZA [facility] Organization Address City/State/ZIP Co de Phone Number [facility] [address] [place] [address] * (ABNORMAL) URINALYSIS REFLEX TO MICROSCOPIC NO CULTURE (01/11/2021 9:42 AM CDT) Only the most recent of2 resultswithin the time period is included. Color UA Yellow Straw, Yellow 01/11/2021 12:54 PM CDT [facility] Clarity UA Clear Clear 01/11/2021 12:54 PM CDT [facility] Glucose UA Negative Negative 01/11/2021 12:54 PM CDT [facility] Bilirubin UA Negative Negative 01/11/2021 12:54 PM CDT [facility] Ketone UA Negative Negative 01/11/2021 12:54 PM CDT [facility] Specific [place] UA 1.011 1.005 - 1.030 01/11/2021 12:54 PM CDT [facility] Blood UA Negative Negative 01/11/2021 12:54 PM CDT [facility] pH UA 7.0 5.0 - 8.0 pH 01/11/2021 12:54 PM CDT [facility] Protein UA Negative Negative 01/11/2021 12:54 PM CDT [facility] Urobilinogen UA Negative Negative mg/dL 01/11/2021 12:54 PM CDT [facility] Nitrite UA Negative Negative 01/11/2021 12:54 PM CDT [facility] Leukocyte UA 2+(A) Negative 01/11/2021 12:54 PM CDT [facility] Urine Microscopy Urine microscopy to follow 01/11/2021 12:54 PM CDT [facility] Urine MID-STREAM URINE SPECIMEN / Unknown Collection / Unknown 01/11/2021 9:42 AM CDT 01/11/2021 12:38 PM CDT Narrative [facility] - 01/11/2021 12:54 PM CDT Ascorbic Acid can cause false negative urine strip tests for blood, glucose, nitrite, and bilirubin. Titi Nelson LAB - URINALYSIS ORD ERABLES Performing Organization Address [facility] Co de Phone Number [facility] [address] [place] [address] * URINE MICROSCOPIC ONLY (01/11/2021 9:42 AM CDT) Only the most recent of2 resultswithin the time period is included. RBC UA None Seen None Seen, 0-2, 3-5 # /hpf 01/11/2021 12:54 PM CDT [facility] WBC UA 0-5 None Seen, 0-5 # /hpf 01/11/2021 12:54 PM CDT [facility] Bacteria UA None Seen None Seen 01/11/2021 12:54 PM CDT [facility] Squamous Epithelial Cells 0-2 None Seen, 0-2, 3-5 /hpf 01/11/2021 12:54 PM CDT [facility] Mucus UA 3+ /LPF 01/11/2021 12:54 PM CDT [facility] Urine MID-STREAM URINE SPECIMEN / Unknown Collection / Unknown 01/11/2021 9:42 AM CDT 01/11/2021 12:38 PM CDT Narrative [facility] - 01/11/2021 12:54 PM CDT Titi Raymond Lunsfordrocky LAB - URINALYSIS ORD ERABLES Performing Organization Address [facility] Co de Phone Number [facility] [address] [place] [address] * PTT (12/29/2020 3:40 AM CDT) PTT 30.6 23.0 - 38.4 sec 12/29/2020 8:47 AM CDT [facility] Blood BLOOD SPECIMEN / Unknown Venipuncture / Unknown 12/29/2020 3:40 AM CDT 12/29/2020 8:32 AM CDT Narrative [facility] - 12/29/2020 8:47 AM CDT Heparin Therapeutic Range for PTT: ??71.0 - 109.0 seconds. Titi Raymond Nelson LAB - COAGULATION OR DERABLES Performing Organization Address [facility] de Phone Number [facility] [address] [place] [address] * PT-INR (12/29/2020 3:40 AM CDT) PT 13.6 12.1 - 14.8 sec 12/29/2020 8:46 AM CDT [facility] INR 1.0 0.9 - 1.1 12/29/2020 8:46 AM CDT [facility] Blood BLOOD SPECIMEN / Unknown Venipuncture / Unknown 12/29/2020 3:40 AM CDT 12/29/2020 8:32 AM CDT Narrative [facility] - 12/29/2020 8:46 AM CDT Conventional Warfarin Anticoagulant Therapy: INR Reference Range: ??2.0-3.0 Intensive Warfarin Anticoagulant Therapy: INR Reference Range: ? 2.5-3.5 Titi Nelson LAB - COAGULATION OR DERABLES Performing Organization Address [facility] de Phone Number [facility] [address] [place], [place] [address]
--- OUTSIDE RECORDS SUMMARY | 2024-06-28 19:05 | XMS_ITS | Encounter Summary ---
Author Organization [facility] Address [address] [place] [address] Care Team Providers Care Agriculture Laboratory Technician Name Role Phone Unavailable Primary Care Provider Unavailabl e Encounter Details Date Type Department Care Team (Late st Contact Info) Description 01/19/2021 Lab Requisition [facility] [address] [place] [address] AakashlizzetteTiti [address] [facility] [address] [place], [place] [id number] Social History Tobacco Use Types Packs/Day Years [...] Diagnosis Comments CBC W AUTO DIFFERENTIAL Routine 01/19/2021 4:00 AM CDT COMPREHENSIVE METABOLIC PANEL Routine 01/19/2021 4:00 AM CDT documented in this encounter Results * (ABNORMAL) COMPREHENSIVE METABOLIC PANEL (01/19/2021 4:00 AM CDT) Glucose 94 70 - 105 mg/dL 01/19/2021 10:56 AM CDT [facility] Sodium 140 136 - 145 mmol/L 01/19/2021 10:56 AM CDT [facility] Potassium 4.0 3.5 - 5.1 mmol/L 01/19/2021 10:56 AM CDT [facility] Chloride 104 98 - 107 mmol/L 01/19/2021 10:56 AM CDT [facility] CO2 22(L) 23 - 31 mmol/L 01/19/2021 10:56 AM CDT [facility] Calcium 8.9 8.4 - 10.4 mg/dL 01/19/2021 10:56 AM CDT [facility] Anion Gap 14 8 - 18 mmol/L 01/19/2021 10:56 AM CDT [facility] BUN 7(L) 9.8 - 20.1 mg/dL 01/19/2021 10:56 AM CDT [facility] Creatinine 0.68 0.57 - 1.11 mg/dL 01/19/2021 10:56 AM CDT [facility] Alkaline Phosphatase 102 40 - 150 U/L 01/19/2021 10:56 AM CDT [facility] ALT 34 0 - 61 U/L 01/19/2021 10:56 AM CDT [facility] AST 25 5 - 34 U/L 01/19/2021 10:56 AM CDT [facility] Protein Total 5.2(L) 6.4 - 8.3 gm/dL 01/19/2021 10:56 AM CDT [facility] Albumin 3.0(L) 3.2 - 4.6 gm/dL 01/19/2021 10:56 AM CDT [facility] Bilirubin Total 0.2 0.2 - 1.2 mg/dL 01/19/2021 10:56 AM CDT [facility] eGFR by MDRD >60 mL/min/1.7 3m2 01/19/2021 10:56 AM CDT [facility] eGFR by MDRD >60 mL/min/1.7 3m2 01/19/2021 10:56 AM T [facility] Blood BLOOD SPECIMEN / Unknown Venipuncture / Unknown 01/19/2021 4:00 AM CDT 01/19/2021 10:05 AM CDT [facility] - CHEMISTRY BLANCO PEÑALOZA [facility] [address] [place] [address] * (ABNORMAL) CBC WITH DIFFERENTIAL (01/19/2021 4:00 AM CDT) WBC 17.4(H) 4.4 - 10.7 x10E9/L 01/19/2021 10:39 AM CDT [facility] WBC Corrected 01/19/2021 10:39 AM CDT [facility] RBC 2.98(L) 3.80 - 5.20 x10E12/L 01/19/2021 10:39 AM CDT [facility] Hemoglobin 8.9(L) 12.0 - 15.6 gm/dL 01/19/2021 10:39 AM CDT [facility] Hematocrit 28.7(L) 35.9 - 45.5 % 01/19/2021 10:39 AM CDT [facility] MCV 96.3 80.7 - 98.3 fl 01/19/2021 10:39 AM CDT [facility] MCH 29.9 26.7 - 34.0 pg 01/19/2021 10:39 AM CDT [facility] MCHC 31.0 30.8 - 35.9 gm/dL 01/19/2021 10:39 AM CDT [facility] Platelet Count 439(H) 153 - 416 x10E9/L 01/19/2021 10:[address] [facility] RDW-CV 18.8(H) 12.1 - 14.9 % 01/19/2021 10:39 AM CDT [facility] MPV 11.4 9.4 - 12.9 fl 01/19/2021 10:[address] [facility] Neutrophils % 67.8 44.0 - 73.0 % 01/19/2021 10:39 AM CDT [facility] Lymphocytes % 19.8(L) 20.0 - 43.0 % 01/19/2021 10:39 AM T [facility] Monocytes % 8.6 5.0 - 13.0 % 01/19/2021 10:39 AM CDT [facility] Eosinophils % 3.2 0.0 - 6.0 % 01/19/2021 10:39 AM CDT [facility] Basophils % 0.3 0.0 - 2.0 % 01/19/2021 10:39 AM CDT [facility] Immature Granulocytes 0.3 0 - 1 % 01/19/2021 10:39 AM CDT [facility] Neutrophil Absolute 11.80(H) 2.01 - 7.14 x10E9/L 01/19/2021 10:39 AM CDT [facility] Lymphocytes Absolute 3.44 1.07 - 3.94 x10E9/L 01/19/2021 10:39 AM CDT [facility] Monocytes Absolute 1.49(H) 0.26 - 1.07 x10E9/L 01/19/2021 10:39 AM CDT [facility] Eosinophils Absolute 0.55(H) 0 - 0.47 x10E9/L 01/19/2021 10:39 AM CDT [facility] Basophils Absolute 0.05 0 - 0.08 x10E9/L 01/19/2021 10:39 AM CDT [facility] Immature Granulocytes Absolute 0.05 0.00 - 0.06 x10E9/L 01/19/2021 10:39 AM CDT [facility] nRBC Auto 0 /100 WBC 01/19/2021 10:39 AM CDT [facility] Blood BLOOD SPECIMEN / Unknown Venipuncture / Unknown 01/19/2021 4:00 AM CDT 01/19/2021 10:05 AM CDT [facility] - HEMATOLOGY ORD ERABLES [facility] [address] [place] [address] documented in this encounter Visit Diagnoses Not on filedocumented in this encounter
--- OUTSIDE RECORDS SUMMARY | 2024-06-28 19:05 | XMS_ITS | Continuity of Care Document ---
Author Organization [facility] Address [address] [place] [address] [place] [address] Phone Care Team Providers Care Tennis Camp Instructor Name Role Phone Sean German MD Unavailable Unavailable Allergies, Adverse Reactions, Alerts Substance Reaction Status Criticality No Known Allergies Active No Inform ation Medications Medication Instructions Dosage Effective Dates (start - stop) Status Comments Breztri Aerosphere 160 mcg-9mcg-4.8mcg/actu ation HFA aerosol inhaler inhale 2 puff by inhalation route 2 times every day in the morning and evening 2.00 puff - Active Synthroid 50 mcg tablet take 1 tablet by oral route every day 50 MCG - Active Lipitor 40 mg tablet take 1 tablet by oral route every day 40 MG - Active ropinirole 0.25 mg tablet take 1 tablet by oral route every bedtime 0.25 MG - Active avoid driving or operate machines albuterol sulfate HFA 90 mcg/actuation aerosol inhaler inhale 2 puff by inhalation route every 4 - 6 hours as needed - Active aspirin 81 mg tablet,delayed release take 1 tablet by oral route every day 81 MG - Active nitroglycerin 0.[address] 1 tablet by sublingual route at the 1st sign of attack; may repeat every 5 min until relief; if pain persists after 3 tablets in 15 min, prompt medical attention is recommended 0.4 MG - Active Procedures Procedure Date PREV VISIT, EST, 65 & OVER OFFICE/OUTPATIENT VISIT, EST OFFICE/OUTPATIENT VISIT, EST OFFICE/OUTPATIENT VISIT, EST OFFICE/OUTPATIENT VISIT, EST OFFICE/OUTPATIENT VISIT, EST OFFICE/OUTPATIENT VISIT, EST PREV VISIT, NEW, 65 & OVER OFFICE/OUTPATIENT VISIT, NEW Advance Directives Directive Yes / No Effective Date File Name No Information Encounters Encounter Description Practice Location Reason(s) For Visit Diagnoses Date Provider Providers Copied on Encounter PREV VISIT, EST, 65 & OVER [facility], [address], [place], [place], [address], [place] tel:[phone] [facility] physical (chief complaint) Encounter for general adult medical examination without abnormal findings 4 Maxi Malin [address], [place], [place], [address] , [place]. [phone] OFFICE/OUTPA TIENT VISIT, [facility], [address], [place], [place], [address], [place] tel:[phone] [facility] COPD1 (chief complaint) HTN (chief complaint) pressure ulcer1 (chief complaint) weight loss1 (chief complaint) COPD w/ acute exacerbationEssenti al (primary) hypertensionAbnorma l weight lossPressure ulcer of sacral region, stage 1Anemia 3 Maxi Malin [address], [place], [place], [address] , [place]. [phone] OFFICE/OUTPA TIENT VISIT, [facility], [address], [place], [place], [address], [place] tel:[phone] [facility] emphysema1 (chief complaint) Centrilobular emphysema 3 Maxi Malin [address], [place], [place], [address] , [place]. tel:[phone] OFFICE/OUTPA TIENT VISIT, [facility], [address], [place], [place], [address], [place] tel:[phone] [facility] shoulder pain1 (chief complaint) Adhesive capsulitis of left shoulderMononeuropa thy 2 German Saen. [address], [place], [place], [address] , [place]. tel:[phone] OFFICE/OUTPA TIENT VISIT, [facility], [address], [place], [place], [address], [place] tel:[phone] [facility] renal (chief complaint) leukocytos is1 (chief complaint) phos1 (chief complaint) HTN (chief complaint) hypothyroi dism1 (chief complaint) HLP (chief complaint) AnemiaMixed hyperlipidemiaEssen tial (primary) hypertensionHypothy roidismCentrilobula r emphysemaRestless Legs SyndromeFolate deficiencyAdhesive capsulitis of left shoulderOther disorders of phosphorus metabolismLeukocyto sis 2 Maxi Sean. [address], [place], [place], [address] , [place]. tel:[phone] OFFICE/OUTPA TIENT VISIT, [facility], [address], [place], [place], [address], [place] tel:[phone] [facility] cough1 (chief complaint) Acute bronchitis 2 Maxi Sean. [address], [place], [place], [address] , [place]. tel:[phone] OFFICE/OUTPA TIENT VISIT, [facility], [address], [place], [place], [address], [place] tel:[phone] [facility] folate1 (chief complaint) renal (chief complaint) wBC (chief complaint) anemai1 (chief complaint) paresthesi a1 (chief complaint) thryoid (chief complaint) Folate deficiencyRenal diseaseOther disorders of phosphorus metabolismLeukocyto sisAnemiaRestless Legs SyndromeHypothyroid ismHyperlipidemia 2 German Sean. [address], [place], [place], [address] , [place]. tel:[phone] PREV VISIT, NEW, 65 & OVER [facility], [address], [place], [place], [address], [place] tel:[phone] [facility] physical (chief complaint) Encounter for general adult medical exam w abnormal findingsHypothyroid ismEssential (primary) hypertensionHyperli pidemiaEmphysema 2 Maxi Estrada. [address], [place], [place], [address] , [place]. tel:[phone] Family History Family Member Type Diagnosis Age At Onset Mother Problem of 94 old age Sister Problem Alive and well Father Problem of CVA 67 Brother Problem of lung CA 65 Sister Problem Renal disease Payers Payer name Insurance type Covered constitution party ID Authoriza tion(s) No Information Social History Type Description Quantity Date Captured Comments Alcohol Use Details No Caffeine Use Details Unknown Tobacco Use Status Ex-cigarette smoker 024 Smoking Status Former smoker Sex Female Vital Signs Date / Time: Height Weight BMI Pulse Rate Blood Pressure Temperature Respiratory Rate Body Surface Area Head Circumference BMI percentile Pulse Ox Inhaled Ox 2:16 PM 64.00 in 128.20 lbs 22.0 1 kg/m eter (2) 76 /min 142/88 mm[Hg] 98.0 F 16 /min Chief Complaint And Reason For Visit From encounter dated '02/10/2024 14:08'. physical (chief complaint). Description: Pt needs annual physical pt has end stage COPD. Pt sees pulmonary .Pt is on breztri and 24-7 oxygen Pt doing ok. Pt has hypothyroidism and also HLP Pt needs synthroid and lipitor refilled Pt denies any new complaints Plan Of Treatment Date Type Action Status Referral Referred To: Leela GALO, Charlene Alvarado [address] [facility]
[address] [place], [place], [address] Ordered: Referrals: Charlene Swenson MD. Evaluate and treat ordered Referral Ordered: LENA PARRY -[facility]opathic [facility] Osteopathic Physicians : Orthopaedic Surgery (related to Adhesive capsulitis of left shoulder) ordered Referral Referred To: LENA PARRY [address] [place], [place], [phone] Ordered: Referrals: Allopathic & Osteopathic Physicians : Orthopaedic Surgery. LENA PARRY. Evaluate and treat ordered Appointment Laxmi Colon BOOKED History Of Present Illness Encounter Date Complaint History Of Prese nt Illness physical Pt needs annual physical pt has end stage COPD. Pt sees pulmonary .Pt is on breztri and 24-7 oxygen Pt doing ok. Pt has hypothyroidism and also HLP Pt needs synthroid and lipitor refilled Pt denies any new complaints weight loss1 Pt has been losi ng weight unintentionally. Pt states that she feels sob all the time and her appetite has not been as good. Pt denies any early satiety, nausea, vomiting, change of bowel, Gi bleeding, etc pressure ulcer1 Pt developed sta ge I pressure ulcer around sacrum area since hospitalization. Pt is being managed by home health nurse. She was told to see me for abx. Pt denies any bleeding or pain. HTN Pt has history o f HTN Pt takes valsartan and norvasc which is on hold now due to low BP in hospital. her bp is ok today without above meds. Pt denies any chest pain or dizziness . COPD1 Pt recently was admitted to hospital for acute COPD exacerbation Pt received abx, steroid and neb treatment. SHe is on daily oxygen pt had negative CTA pulmonary. Pt currently is at baseline of her respiratory status. Pt also has elevated troponin and cardiac echo benign Pt was evaluated by cardiology inpatient. Pt denies any chest pain emphysema1 Pt has end stage emphysema and she is using trelegy and she uses oxygen Pt has eve with pulmonary tomorrow and she needs insurance referral. pt denies any worsening sob, cough or any hemoptysis shoulder pain1 Pt c/o acute ons et of left shoulder pain and stiffness for 2-3 months Pt denies any injury Pt denies any neck pain Pt notices radiating pain from left shoulder down to left hand sometimes Pt denies any numbness or tingling Pt also notices inability to make a fist with left hand for 4 weeks. Pt also c/o left hand pain Pt unable to make a complete fist with left hand. pt notices mild numbness and tingling left hand as well leukocytosis1 Pt has persisten t leukocytosis. Pt denies any fever, or infection. Pt has borderline high platelet. Pt is not anemic and her iron is ok. Pt has RLS. Pt stats that requip is helping very much Pt like refills. renal Pt has low renal Pt has normal UO . Pt had end stage COPD Pt sees pulmonary Pt is on trelegy and 24 hour oxygen. Pt feels constant sob and she feels that she struggles with breathing all the time even with oxygen. Pt also c/o left shoulder pain and stiffness for more than 4 weeks. Pt denies any injury Pt denies any shoulder redness or warmth or swelling Pt denies any left upper extremity weakness. HLP Pt has HLP. Pt t akes lipitor Pt denies any myalgia. Her lipid profile is ok hypothyroidism1 Pt has hypothyro idism. Pt takes synthroid Pt needs it refilled .Pt denies any dysphagia or neck pain HTN Pt has HTN Pt ta kes valsartan and norvasc and she run out of valsartan for several weeks. her bp is borderline high. Pt denies any chest pain or headache phos1 Pt has history o f high phos. repeat phos is ok as well as PTH and d cough1 Pt c/o mild prod uctive cough with clear running nose x 10 days. Pt denies any fever, worsening sob. Pt denies any nausea, vomiting, diarrhea, chest pain. Pt is vaccinated for COVID. Pt does have COPD with poor breathing as baseline but she denies any worsening sob. thryoid Pt has low thyro id Pt takes synthroid. Pt denies any dysphagia or neck pain paresthesia1 Pt c/o urge to m ove her leg a lot at night with some tingling both leg only at night for the past several months Pt denies any issue during the day. anemai1 Pt has very bord prabhu mild anemia Pt denies any blood loss. Pt denies any fatigue or dizziness wBC Pt has high WBC. Pt was not on steroid when she did lab work. Pt denies any fever, chill. renal Pt has borderlin e renal function Pt has normal UO folate1 Pt has low folat e and high phos. pt does not take any supplement. Pt denies any myalgia or cramp physical Pt needs annual physical Pt has CAD with stent. pt sees cardiology, Pt denies any chest pain. Pt has COPD. Pt wears 2 L oxygen 24-7. Pt sees pulmonary. Pt is on trelegy and albuterol neb daily. Pt has HTN. Pt takes valsartan and norvasc and her bp is ok. Pt has HLP Pt takes lipitor Pt denies any myalgia. Pt denies any new complaints Instructions Date Instruction Additional Infor alex No Information Assessments Type Assessment Date assessment Encounter for genera l adult medical examination without abnormal findings Mental Status Date Cognitive Assessment Orientation - [place] ed to time, place, person, situation.
--- OUTSIDE RECORDS SUMMARY | 2024-06-28 19:05 | XMS_ITS | Encounter Summary ---
Author Organization [facility] Address [address] [place] [address] Care Team Providers Care Day Haul Youth Supervisor Name Role Phone Unavailable Primary Care Provider Unavailabl e Encounter Details Date Type Department Care Team (Late st Contact Info) Description 01/10/2021 Lab Requisition [facility] [address] [place] [address] AakashlizzetteTiti [id number] [facility] [address] [place], [place] [id number] Social History Tobacco Use Types Packs/Day Years [...] Diagnosis Comments CBC W AUTO DIFFERENTIAL Routine 01/10/2021 8:03 AM CDT COMPREHENSIVE METABOLIC PANEL Routine 01/10/2021 8:03 AM CDT documented in this encounter Results * (ABNORMAL) CBC WITH DIFFERENTIAL (01/10/2021 8:03 AM CDT) WBC 21.8(H) 4.4 - 10.7 x10E9/L 01/10/2021 8:16 AM CDT [facility] WBC Corrected 01/10/2021 8:16 AM CDT [facility] RBC 3.25(L) 3.80 - 5.20 x10E12/L 01/10/2021 8:16 AM CDT [facility] Hemoglobin 9.6(L) 12.0 - 15.6 gm/dL 01/10/2021 8:16 AM CDT [facility] Hematocrit 30.7(L) 35.9 - 45.5 % 01/10/2021 8:16 AM CDT [facility] MCV 94.5 80.7 - 98.3 fl 01/10/2021 8:16 AM CDT [facility] MCH 29.5 26.7 - 34.0 pg 01/10/2021 8:16 AM CDT [facility] MCHC 31.3 30.8 - 35.9 gm/dL 01/10/2021 8:16 AM CDT [facility] Platelet Count 410 153 - 416 x10E9/L 01/10/2021 8:16 AM CDT [facility] RDW-CV 18.4(H) 12.1 - 14.9 % 01/10/2021 8:16 AM CDT [facility] MPV 11.5 9.4 - 12.9 fl 01/10/2021 8:16 AM CDT [facility] Neutrophils % 69.7 44.0 - 73.0 % 01/10/2021 8:16 AM CDT [facility] Lymphocytes % 20.2 20.0 - 43.0 % 01/10/2021 8:16 AM CDT [facility] Monocytes % 8.4 5.0 - 13.0 % 01/10/2021 8:16 AM CDT [facility] Eosinophils % 0.6 0.0 - 6.0 % 01/10/2021 8:16 AM CDT [facility] Basophils % 0.3 0.0 - 2.0 % 01/10/2021 8:16 AM CDT [facility] Immature Granulocytes 0.8 0 - 1 % 01/10/2021 8:16 AM CDT [facility] Neutrophil Absolute 15.21(H) 2.01 - 7.14 x10E9/L 01/10/2021 8:16 AM CDT [facility] Lymphocytes Absolute 4.40(H) 1.07 - 3.94 x10E9/L 01/10/2021 8:16 AM CDT [facility] Monocytes Absolute 1.82(H) 0.26 - 1.07 x10E9/L 01/10/2021 8:16 AM CDT [facility] Eosinophils Absolute 0.12 0 - 0.47 x10E9/L 01/10/2021 8:16 AM CDT [facility] Basophils Absolute 0.06 0 - 0.08 x10E9/L 01/10/2021 8:16 AM CDT [facility] Immature Granulocytes Absolute 0.17(H) 0.00 - 0.06 x10E9/L 01/10/2021 8:16 AM CDT [facility] nRBC Auto 0 /100 WBC 01/10/2021 8:16 AM [facility] Blood BLOOD SPECIMEN / Unknown Venipuncture / Unknown 01/10/2021 8:03 AM CDT 01/10/2021 8:03 AM CDT Titi Nelson LAB - HEMATOLOGY ORD ERABLES [facility] [address] [place] [id number] * (ABNORMAL) COMPREHENSIVE METABOLIC PANEL (01/10/2021 8:03 AM CDT) Glucose 82 70 - 105 mg/dL 01/10/2021 8:36 AM [facility] Sodium 137 136 - 145 mmol/L 01/10[facility]2021 [facility] Potassium 5.0 3.5 - 5.1 mmol/L 01/10/2021 8:36 AM [facility] Chloride 97(L) 98 - 107 mmol/L 01/10/2021 8:36 AM [facility] CO2 31 23 - 31 mmol/L 01/10/2021 8:36 AM [facility] Calcium 9.3 8.4 - 10.4 mg/dL 01/10/2021 8:36 AM [facility] Anion Gap 9 8 - 18 mmol/L 01/10/2021 8:36 AM [facility] BUN 24(H) 9.8 - 20.1 mg/dL 01/10/2021 8:36 AM T [facility] Creatinine 0.73 0.57 - 1.11 mg/dL 01/10/2021 8:36 AM [facility] Alkaline Phosphatase 157(H) 40 - 150 U/L 01/10/2021 8:36 AM [facility] ALT 68(H) 0 - 61 U/L 01/10/2021 8:36 AM CDT [facility] AST 33 5 - 34 U/L 01/10/2021 8:36 AM CDT [facility] Protein Total 6.0(L) 6.4 - 8.3 gm/dL 01/10/2021 8:36 AM CDT [facility] Albumin 3.4 3.2 - 4.6 gm/dL 01/10/2021 8:36 AM CDT [facility] Bilirubin Total 0.2 0.2 - 1.2 mg/dL 01/10/2021 8:36 AM CDT [facility] eGFR by MDRD >60 mL/min/1.7 3m2 01/10/2021 8:36 AM CDT [facility] eGFR by MDRD >60 mL/min/1.7 3m2 01/10/2021 8:36 AM CDT [facility] Blood BLOOD SPECIMEN / Unknown Venipuncture / Unknown 01/10/2021 8:03 AM CDT 01/10/2021 8:03 AM CDT Titi Nelson LAB - CHEMISTRY BLANCO PEÑALOZA [facility] Organization Address City/State/[facility] Co de Phone Number [facility] [address] [place] [address] documented in this encounter Visit Diagnoses Not on filedocumented in this encounter
--- OUTSIDE RECORDS SUMMARY | 2024-06-28 19:05 | XMS_ITS | Referral Summary ---
Author Organization [facility] Address [address] [place] [address] Care Team Providers Care Alliances Consultant Name Role Phone Unavailable Primary Care Provider Unavailabl e Source Comments [facility],non-owned Affiliates and Associated Physician Practices is amultiple site organization consisting of ambulatory clinics and hospital sitesin [place], [place], [place] and [place]. This disclosure is being madepursuant to the Care Everywhere program and may not contain all information available regarding this patient. Last updated 18.[facility] [employer] Social History Tobacco Use Types Packs/Day Years Used Date Smoking Tobacco: Never Assessed Sex and Gender Information Value Date Recorded Sex Assigned at Not on file Gender Identity Not on file Sexual Orientation Not on file Plan of Treatment Not on file
--- OUTSIDE RECORDS SUMMARY | 2024-06-28 19:05 | XMS_ITS | Encounter Summary ---
Author Organization [facility] Address [address] [place] [address] Care Team Providers Care Receiver Setter Name Role Phone Unavailable Primary Care Provider Unavailabl e Encounter Details Date Type Department Care Team (Late st Contact Info) Description 01/11/2021 Lab Requisition [facility] [address] [place] [address] [place], [place] [phone] Social History Tobacco Use Types Packs/Day Years [...] Diagnosis Comments CBC W AUTO DIFFERENTIAL Routine 01/11/2021 8:11 AM CDT documented in this encounter Results * (ABNORMAL) CBC WITH DIFFERENTIAL (01/11/2021 8:11 AM CDT) WBC 17.4(H) 4.4 - 10.7 x10E9/L 01/11/2021 8:32 AM CDT [facility] WBC Corrected 01/11/2021 8:32 AM CDT [facility] RBC 3.22(L) 3.80 - 5.20 x10E12/L 01/11/2021 8:32 AM CDT [facility] Hemoglobin 9.5(L) 12.0 - 15.6 gm/dL 01/11/2021 8:32 AM CDT [facility] Hematocrit 30.6(L) 35.9 - 45.5 % 01/11/2021 8:32 AM CDT [facility] MCV 95.0 80.7 - 98.3 fl 01/11/2021 8:32 AM CDT [facility] MCH 29.5 26.7 - 34.0 pg 01/11/2021 8:32 AM CDT [facility] MCHC 31.0 30.8 - 35.9 gm/dL 01/11/2021 8:32 AM CDT [facility] Platelet Count 387 153 - 416 x10E9/L 01/11/2021 8:32 AM CDT [facility] RDW-CV 18.5(H) 12.1 - 14.9 % 01/11/2021 8:32 AM CDT [facility] MPV 11.5 9.4 - 12.9 fl 01/11/2021 8:32 AM CDT [facility] Neutrophils % 69.6 44.0 - 73.0 % 01/11/2021 8:32 AM CDT [facility] Lymphocytes % 19.9(L) 20.0 - 43.0 % 01/11/2021 8:32 AM CDT [facility] Monocytes % 8.5 5.0 - 13.0 % 01/11/2021 8:32 AM [facility] Eosinophils % 0.9 0.0 - 6.0 % 01/11/2021 8:32 AM CDT [facility] Basophils % 0.4 0.0 - 2.0 % 01/11/2021 8:32 AM CDT [facility] Immature Granulocytes 0.7 0 - 1 % 01/11/2021 8:32 AM CDT [facility] Neutrophil Absolute 12.14(H) 2.01 - 7.14 x10E9/L 01/11/2021 8:32 AM T [facility] Lymphocytes Absolute 3.47 1.07 - 3.94 x10E9/L 01/11/2021 8:32 AM CDT [facility] Monocytes Absolute 1.48(H) 0.26 - 1.07 x10E9/L 01/11/2021 8:32 AM CDT [facility] Eosinophils Absolute 0.16 0 - 0.47 x10E9/L 01/11/2021 8:32 AM CDT [facility] Basophils Absolute 0.07 0 - 0.08 x10E9/L 01/11/2021 8:32 AM CDT [facility] Immature Granulocytes Absolute 0.12(H) 0.00 - 0.06 x10E9/L 01/11/2021 8:32 AM CDT [facility] nRBC Auto 0 /100 WBC 01/11/2021 8:32 AM CDT [facility] Blood BLOOD SPECIMEN / Unknown Venipuncture / Unknown 01/11/2021 8:11 AM CDT 01/11/2021 8:11 AM CDT [facility] - HEMATOLOGY ORD ERABLES Performing Organization Address City/State/[facility] Co de Phone Number [facility] [address] [place], [place] [phone] documented in this encounter Visit Diagnoses Not on filedocumented in this encounter
--- OUTSIDE RECORDS SUMMARY | 2024-06-28 19:05 | XMS_ITS | Encounter Summary ---
Author Organization [facility] Address [address] [place] [address] Care Team Providers Care Product Development Technician Name Role Phone Unavailable Primary Care Provider Unavailabl e Encounter Details Date Type Department Care Team (Late st Contact Info) Description 01/11/2021 Lab Requisition [facility] [address] [place] [address] [address] [place] [address] Social History Tobacco Use Types Packs/Day Years [...] URINALYSIS REFLEX TO MICROSCOPIC NO CULTURE STAT 01/11/2021 9:42 AM CDT URINE MICROSCOPIC ONLY STAT 01/11/2021 9:42 AM CDT documented in this encounter Results * URINE MICROSCOPIC ONLY (01/11/2021 9:42 AM CDT) RBC UA None Seen None Seen, 0-2, 3-5 # /hpf 01/11/2021 12:54 PM CDT [facility] WBC UA 0-5 None Seen, 0-5 # /hpf 01/11/2021 12:54 PM CDT [facility] Bacteria UA None Seen None Seen 01/11/2021 12:54 PM CDT [facility] Squamous Epithelial Cells 0-2 None Seen, 0-2, 3-5 /hpf 01/11/2021 12:54 PM CDT [facility] Mucus UA 3+ /LPF 01/11/2021 12:54 PM CDT [facility] Urine MID-STREAM URINE SPECIMEN / Unknown Collection / Unknown 01/11/2021 9:42 AM CDT 01/11/2021 12:38 PM CDT Narrative [facility] - 01/11/2021 12:54 PM CDT [facility] - URINALYSIS ORD ERABLES [facility] [address] [place], [place] [phone] * (ABNORMAL) URINALYSIS REFLEX TO MICROSCOPIC NO CULTURE (01/11/2021 9:42 AM CDT) Color UA Yellow Straw, Yellow 01/11/2021 12:54 PM CDT [facility] Clarity UA Clear Clear 01/11/2021 12:54 PM CDT [facility] Glucose UA Negative Negative 01/11/2021 12:54 PM CDT [facility] Bilirubin UA Negative Negative 01/11/2021 12:54 PM CDT [facility] Ketone UA Negative Negative 01/11/2021 12:54 PM CDT [facility] Specific [place] UA 1.011 1.005 - 1.030 01/11/2021 12:54 PM CDT [facility] Blood UA Negative Negative 01/11/2021 12:54 PM CDT [facility] pH UA 7.0 5.0 - 8.0 pH 01/11/2021 12:54 PM CDT [facility] Protein UA Negative Negative 01/11/2021 12:54 PM CDT [facility] Urobilinogen UA Negative Negative mg/dL 01/11/2021 12:54 PM CDT [facility] Nitrite UA Negative Negative 01/11/2021 12:54 PM CDT [facility] Leukocyte UA 2+(A) Negative 01/11/2021 12:54 PM CDT [facility] Urine Microscopy Urine microscopy to follow 01/11/2021 12:54 PM CDT [facility] Urine MID-STREAM URINE SPECIMEN / Unknown Collection / Unknown 01/11/2021 9:42 AM CDT 01/11/2021 12:38 PM CDT Narrative [facility] - 01/11/2021 12:54 PM CDT Ascorbic Acid can cause false negative urine strip tests for blood, glucose, nitrite, and bilirubin. [facility] - URINALYSIS ORD ERABLES [facility] Organization Address City/State/ZIP Co de Phone Number [facility] [address] [place] [address] documented in this encounter Visit Diagnoses Not on filedocumented in this encounter
--- OUTSIDE RECORDS SUMMARY | 2024-06-28 19:05 | XMS_ITS | Clinical Summary ---
Author Organization [facility] [employer] Address [address] [place] [address] Care Team Providers Care Mannequin Maker Name Role Phone Unavailable Primary Care Provider Unavailabl e Source Comments [facility] [employer],non-owned Affiliates and Associated Physician Practices is amultiple site organization consisting of ambulatory clinics and hospital sitesin [place], [place], [place] and [place]. This disclosure is being madepursuant to the Care Everywhere program and may not contain all information available regarding this patient. Last updated 18.[facility] [employer] Social History Tobacco Use Types Packs/Day Years Used Date Smoking Tobacco: Never Assessed Sex and Gender Information Value Date Recorded Sex Assigned at Not on file Gender Identity Not on file Sexual Orientation Not on file Plan of Treatment Health Maintenance Due Date Last Done Comments BONE DENSITY TESTING 1945 HEPATITIS C SCREENING 10/28/1964 DTAP/TDAP/TD VACCINES (1 - Tdap) 1965 PNEUMOCOCCAL VACCINE 50+ (1 of 1 - PCV) 1996 ZOSTER VACCINE (1 of 2) 1996 Respiratory Syncytial Virus (RSV) Vaccine Pt: or over 60 yrs (1 - 1-dose 75+ series) 2021 COVID-19 VACCINE ( - 2023-2 5 season) 2024 INFLUENZA VACCINE (#1) 2024 DEPRESSION SCREENING 05/27/2024 HEPATITIS B VACCINE Aged Out No longe r eligible based on patient's age to complete this topic HIB VACCINE Aged Out No longer eligi ble based on patient's age to complete this topic HPV VACCINE Aged Out No longer eligi ble based on patient's age to complete this topic MENINGOCOCCAL (Group B) VACCINE Aged Out No longer eligible based on patient's age to complete this topic MENINGOCOCCAL VACCINE Aged Out No genevieve cleopatra eligible based on patient's age to complete this topic
--- NOTE | 2024-06-28 19:15 | ECG_ITS ---
Test Date: 2024-06-28 19:24:49 Measurements Intervals [place] Rate: 108 P: 247 VT: 109 QRS: 41 QRSD: 72 T: 65 QT: 276 QTc: 371 Interpretive Statements SINUS TACHYCARDIA WITH NON-CONDUCTED ATRIAL PREMATURE COMPLEX ANTEROSEPTAL INFARCT, AGE INDETERMINATE BASELINE ARTIFACT- I, II, III, AVR, AVL, AVF, V1-V6 ABNORMAL ECG Compared to ECG 06/28/2024 17:08:22 HEART RATE HAS INCREASED Electronically Signed On 06-29-2024 07:04:40 DELINQUENT TAX COLLECTOR ASSISTANT by Drake Brewster D.O.
[2024-06-28] MEDS: MIDAZOLAM HCL (*CRX) 2 MG/2 ML VIAL 4 MG IV PUSH (19:29)
[2024-06-28] MEDS: RAPID SEQUENCE INTUBATION KIT 1 EACH (19:30)
[2024-06-28] MEDS: PROPOFOL IV EMULSION 200 MG/20 ML VIAL 20 MG IV PUSH ×4 (19:35→20:04)
[2024-06-28] MEDS: PROPOFOL IV EMULSION 100 ML 1.94 MG IV CONT (19:45)
[2024-06-28] MEDS: SODIUM CHLORIDE 0.9% IV 1,000 ML 999 ML IV CONT (20:18)
[2024-06-28 20:21] LABS: Alveolar/Arterial O2 Gradient 140.2 mmHg; Base Excess ABG 2.3 mEq/l (+/-2.0); Fractional Inspired Oxygen 40 %; HCO3 ABG 28.2 mEq/l (22.0-26.0); Oxygen Content ABG 16.5 %vol (16.0-22.0); Oxygen Saturation ABG 96.5 % (95.0-100.0); Oxyhemoglobin 96.2 % THb (90.0-100.0); PCO2 ABG 49.2 mmHg (35.0-45.0); PO2 ABG 88.4 mmHg (80.0-100.0); PO2 FiO2 Ratio Arterial Blood 2.21 %; Total Hemoglobin 12.1 g/dL (12.0-18.0); pH ABG 7.376 (7.350-7.450)
[2024-06-28 20:22] LABS: Arterial Blood Gas PEEP 5 cmH2O; Arterial Blood Gas Tidal Volume 400 ml; Arterial Blood Gas Vent Mode CMV; Arterial Blood Gas Ventilator rate 18 /MIN; Device VENTILATOR; Modified Allen's Test Pass; Site Drawn RIGHT RADIAL
[2024-06-28 20:49] LABS: Influenza A QL RT-PCR Negative (Negative); Influenza B QL RT-PCR Negative (Negative); RSV RNA, RT-PCR Negative (Negative); SARS-CoV-2 RNA PCR Negative (Negative)
[2024-06-28 20:54] LABS: Triglycerides 162 mg/dL (<150)
--- NOTE | 2024-06-28 21:13 | PC.NURSE ---
This patient, Laxmi Colon, was admitted to Intensive Care Unit-8. Patient/family oriented to hospital policies and general routines including ID bracelet, bed and alarms, visiting hours, pain management, procedures, bathroom and other care routines, personal items, smoking policy, room service/diet, and visiting hours. Information on how to activate the Rapid Response Team has been discussed. Patient/Family are encouraged to report perceived risks to care and to ask questions if they do not understand what they are told or what they should do.
[2024-06-28 21:36] LABS: Procalcitonin 0.1 ng/mL
--- NOTE | 2024-06-28 21:43 | PM.IMHP ---
H&P: HPI History of Present Illness Date/Time: 06/28/24 Chief Complaint: Respiratory distress Narrative: 78-year-old female known to me from prior hospitalizations as past medical history of COPD with chronic hypoxic hypercapnic respiratory failure on home O2 of 4 L at night, obstructive sleep apnea on CPAP at night, diastolic dysfunction, and hypothyroidism who presented to the ER via EMS due to respiratory distress. Per ER physician report and EMS report the patient had only been having respiratory distress for about 15 minutes prior to EMS arrival but been had been having some shortness of breath for a few hours. When they arrived to her home they found her to be satting 70% on her home CPAP device with her home bleed and O2 of 4 L and having respiratory rate of 40. She received 2 g of magnesium in the field in 10 mg of Decadron. The patient was in overt distress on arrival to the ER. She was given a nebulizer treatment with albuterol and placed on BiPAP 12/5 with a rate of 12. ABG was obtained which demonstrated pH of 7.2, pCO2 71 and PO2 of 84. The patient briefly reported improvement in symptoms but then rapidly decompensated in she requested intubation. Patient was intubated by ER physician with a 7.5 ET tube. Post intubation chest x-ray was reviewed by myself and demonstrated he ET tube 1.4 cm from the ramirez. ET tube was reportedly adjusted in the ER pulled back to 24 cm at the lip in the ER. Repeat ABG demonstrated resolution of respiratory acidosis with persistent hypercapnia but repeat x-ray demonstrated worsening hyperinflation. This patient is known to this facility but this a duplicate chart under different medical record number. Historical information obtained from past medical records unable to obtain review of systems due to innovation/patient condition. Family is not available to provide history. Family history reviewed under prior medical record. She does have siblings with history of lung disease and lung cancer. Review of Systems Review of Systems: ROS unobtainable: Yes unobtainable due to endotracheal tube PMFSH Past Medical History Medical History (Updated 06/28/24 @ 23:12 by Marycarmen Wahl, ) Lung nodule Renal mass Essential hypertension Former smoker Quit 2018 with 54 pack per year history Hypothyroidism Coronary artery disease Hyperlipidemia Diastolic dysfunction With echocardiogram 2022 demonstrated EF is 70% mild pulmonary hypertension with RVSP of 38, prior echocardiogram 2020 demonstrated grade 1 diastolic dysfunction Obstructive sleep apnea on CPAP With 4 L of bleed in oxygen Chronic respiratory failure with hypoxia and hypercapnia Home O2 of 4 L Surgical History Surgical History (Updated 06/28/24 @ 22:15 by Marycarmen Wahl DO) History of tubal ligation History of total abdominal hysterectomy and bilateral salpingo-oophorectomy Hx of cholecystectomy Family History Family History Mother Hypertension Sibling Malignant neoplasm of kidney Lung cancer Social History Social History (Updated 06/28/24 @ 22:47 by Marycarmen Wahl DO) Social History: Patient lives with her in [facility]. They been since 1965. They have 3 children. She retired from [employer]. She smoked 1 pack per day for 54 years but quit in 2019. She has not have a history of some significant alcohol use. Code status: Full code Surrogate decision maker: William () Meds Home Medications and Allergies Home Medications ?Medication ?Instructions ?Recorded ?Confirmed ?Type albuterol 90 mcg/actuation aerosol 90 mcg inhalation PRN 06/28/24 06/28/24 History inhaler atorvastatin 40 mg tablet (Lipitor) 40 mg PO DAILY 06/28/24 06/28/24 History azithromycin 250 mg tablet 500 mg PO .COMPLEX 06/28/24 06/28/24 History levothyroxine 50 mcg capsule 50 mcg PO DAILY 06/28/24 06/28/24 History Allergies Allergy/AdvReac Type Severity Reaction Status Date / Time No Known Allergies Allergy Verified 06/28/24 17:34 Vital Signs Vital Signs - 24 hr 06/28/24 17:07 06/28/24 17:15 06/28/24 17:24 Temperature 97.6 F Pulse Rate 93 96 Respiratory Rate 24 H 19 Blood Pressure 177/88 H Pulse Oximetry 100 96 96 Oxygen Delivery BiPAP BiPAP BiPAP Fraction of Inspired Oxygen 30 06/28/24 17:31 06/28/24 17:32 06/28/24 17:37 Temperature Pulse Rate 102 H 104 H Respiratory Rate 27 H 25 H Blood Pressure 215/96 H Pulse Oximetry 93 Oxygen Delivery Fraction of Inspired Oxygen 06/28/24 17:50 06/28/24 18:11 06/28/24 18:27 Temperature Pulse Rate 96 96 99 Respiratory Rate 20 22 H 19 Blood Pressure 120/101 H Pulse Oximetry 92 95 Oxygen Delivery BiPAP Fraction of Inspired Oxygen 06/28/24 18:46 06/28/24 19:04 06/28/24 19:04 Temperature Pulse Rate 93 92 91 Respiratory Rate 20 28 H 28 H Blood Pressure 131/102 H Pulse Oximetry 99 99 Oxygen Delivery BiPAP Fraction of Inspired Oxygen 06/28/24 19:45 06/28/24 19:46 06/28/24 20:00 Temperature Pulse Rate 93 97 91 Respiratory Rate 21 H 18 Blood Pressure Pulse Oximetry 100 Oxygen Delivery Mechanical Ventilation Fraction of Inspired Oxygen 40 06/28/24 20:05 06/28/24 21:36 Temperature Pulse Rate 86 74 Respiratory Rate 17 Blood Pressure 122/62 Pulse Oximetry 100 95 Oxygen Delivery Mechanical Ventilation Fraction of Inspired Oxygen 40 Exam Narrative: Weight 64.8 kg BMI 26.1 Const: Other: No acute distress, intubated and sedated head of bed at 30?, well-developed well-nourished HENMT: Other: Head is normocephalic atraumatic, pupils are equal and pinpoint, mucous membranes are dry edentulous in upper and lower jaw, 7.5 ET tube measuring 24 cm at the lip, OG tube in place Neck: Other: No JVD, no lymphadenopathy, trachea midline Resp: Other: Clear to auscultation bilaterally, decreased breath sounds at the bases, mild tachypnea, over breathing the vent Cardio: Other: Regular rate, regular rhythm, 2+ bilateral radial pulses, 2+ left pedal pulse, 1+ right pedal pulse GI: Other: Soft, slightly distended, normoactive bowel sounds, patient does grimace with palpation of the lower abdomen : Other: Goddard catheter in place with a small amount of dark yellow urine present Skin: Other: Overall dry skin, skin of the lower extremities has appearance similar to lichen planus, no petechiae, no inspected bruising Neuro: Other: The patient grimaces to noxious stimuli, when sedation was lower the patient was sitting up and trying to communicate with the nurses to tell them that she was cold, patient seems to have increased tone of bilateral upper extremities but overall normal reflexes, no localizing neurologic deficits noted however exam limited due to patient condition Extrem: Other: Patient has stiffness of the upper extremities bilaterally this is unclear if it is increased tone verses decreased range of motion of the shoulders due to arthritic changes Psych: Other: Anxious and restless when sedation is lower, otherwise cooperative H&P: Results Labs Labs: Laboratory Tests 06/28/24 17:30 06/28/24 17:30 06/28/24 06/28/24 06/28/24 17:30 17:31 18:00 WBC 18.3 H RBC 4.19 L Hgb 11.8 L Hct 38.6 MCV 92.1 MCH 28.2 MCHC 30.6 L RDW 16.2 H Plt Count 413 H MPV 11.0 H Immature Gran % (Auto) 0.3 Neut % (Auto) 47.6 Lymph % (Auto) 45.1 H Keith % (Auto) 4.9 Eos % (Auto) 1.6 Baso % (Auto) 0.5 Lymph # (Auto) 8.28 H Keith # (Auto) 0.9 H Eos # (Auto) 0.3 Baso # (Auto) 0.1 Abs Immat Gran (auto) 0.06 H Absolute Neuts (auto) 8.7 H Absolute Nucleated RBC 0.000 Nucleated RBC % 0.0 PT 14.2 INR 1.1 APTT 29.5 Puncture Site Left brachial ABG pH 7.240 L* ABG pCO2 71.6 H* ABG pO2 84.5 ABG PO2/FiO2 Ratio 2.11 ABG HCO3 30.0 H ABG O2 Saturation 94.2 L ABG O2 Content 17.1 ABG Base Excess 0.8 A-a Gradient 118.4 Oxyhemoglobin 93.8 Total Hemoglobin 12.9 O2 Delivery Device Non-invasive vent O2 Liters/Min 0.0 Minute Volume Vent Rate 12 Vent Mode FiO2 40 Expiratory Pressure 6 Tidal Volume PEEP Inspiratory Pressure 12 Peak Inspir Pressure Pressure Support Sodium 140 Potassium 3.8 Chloride 99 Carbon Dioxide 31 H Anion Gap 10 BUN 16 Creatinine 1.20 H Estim Creat Clear Calc 28 Estimated GFR 44 L Glucose 193 H Lactic Acid 1.8 Calcium 8.7 Magnesium 3.3 H Total Bilirubin 0.5 AST 33 ALT 30 Alkaline Phosphatase 138 H Troponin I 0.097 H* NT-Pro-B Natriuret Pep 551 H Total Protein 7.0 Albumin 4.3 Triglycerides 162 H Procalcitonin 0.1 Influenza A (RT-PCR) Influenza B (RT-PCR) RSV (RT-PCR) SARS-CoV-2 RNA (RT-PCR) 06/28/24 06/28/24 19:53 20:15 WBC RBC Hgb Hct MCV MCH MCHC RDW Plt Count MPV Immature Gran % (Auto) Neut % (Auto) Lymph % (Auto) Keith % (Auto) Eos % (Auto) Baso % (Auto) Lymph # (Auto) Keith # (Auto) Eos # (Auto) Baso # (Auto) Abs Immat Gran (auto) Absolute Neuts (auto) Absolute Nucleated RBC Nucleated RBC % PT INR APTT Puncture Site Right radial ABG pH 7.376 ABG pCO2 49.2 H ABG pO2 88.4 ABG PO2/FiO2 Ratio 2.21 ABG HCO3 28.2 H ABG O2 Saturation 96.5 ABG O2 Content 16.5 ABG Base Excess 2.3 A-a Gradient 140.2 Oxyhemoglobin 96.2 Total Hemoglobin 12.1 O2 Delivery Device Ventilator O2 Liters/Min Not Reportable Minute Volume Not Reportable Vent Rate 18 Vent Mode Cmv FiO2 40 Expiratory Pressure Tidal Volume 400 PEEP 5 Inspiratory Pressure Peak Inspir Pressure Not Reportable Pressure Support Not Reportable Sodium Potassium Chloride Carbon Dioxide Anion Gap BUN Creatinine Estim Creat Clear Calc Estimated GFR Glucose Lactic Acid Calcium Magnesium Total Bilirubin AST ALT Alkaline Phosphatase Troponin I NT-Pro-B Natriuret Pep Total Protein Albumin Triglycerides Procalcitonin Influenza A (RT-PCR) Negative Influenza B (RT-PCR) Negative RSV (RT-PCR) Negative SARS-CoV-2 RNA (RT-PCR) Negative Impressions Chest X-Ray 06/28/24 18:22 IMPRESSION: Emphysematous change without focal infiltrate, as detailed above. Chest X-Ray 06/28/24 19:59 IMPRESSION: Endotracheal tube withdrawal of approximately 4 cm is suggested for optimal radiographic placement. Nasogastric tube extends below the left hemidiaphragm, presumably within the stomach. Remainder of examination is otherwise unchanged from earlier study performed approximately 45 minutes earlier. Abdomen X-Ray 06/28/24 20:03 IMPRESSION: Nasogastric tube in good position and ready for immediate use. EKG: Sinus rhythm, anteroseptal [place] indeterminate age baseline artifact in multiple leads QTC 408 All imaging and EKGs personally reviewed and interpreted. And unless stated otherwise agree with radiologic and cardiology interpretation. Assessment and Plan Assessment and plan (1) Acute on chronic respiratory failure with hypoxia and hypercapnia: Code(s): J96.21 - Acute and chronic respiratory failure with hypoxia; J96.22 - Acute and chronic respiratory failure with hypercapnia Status: Acute (2) Endotracheally intubated: Code(s): Z97.8 - Presence of other specified devices Status: Acute (3) Acute exacerbation of chronic bronchitis: Code(s): J20.9 - Acute bronchitis, unspecified; J42 - Unspecified chronic bronchitis Status: Acute (4) Elevated troponin: Code(s): R79.89 - Other specified abnormal findings of blood chemistry Status: Acute Plan Patient presents with acute on chronic hypoxic hypercapnic respiratory failure resulting in respiratory acidosis and subsequently requiring re-intubation after failure of trial of BiPAP. Patient was initially placed on settings with tidal volume 400 rate of 18 peep of 5 and 50% FiO2 in the ER. Based on the patient's height weight tidal volumes are 2 large as evidenced by increased hyper inflation of the patient's repeat chest x-ray. Subsequently tidal volumes have been decreased to 320 and ventilator rate has been increased to 24. The patient is tolerating the settings better with no more alarms for high peak pressures. The patient is currently receiving sedation with propofol with goal RASS 0--2. ET tube was initially placed in the ER measuring 25 at the lip. I reviewed the x-ray and requested ER provider have the C2 pulled back 2-3 cm at the ET tube was only measuring 1.4 cm from the ramirez. The ET tube was pulled back to 24 cm per nursing report. Given the patient is currently tolerating and has equal breath sounds will hold off on repeating x-ray until a.m. as it is unclear if the patient's ET tube may have been advanced further than 25 cm with securement of the tube. Triglyceride levels will be obtained and monitored serially per protocol. Will repeat ABGs and chest x-rays daily oral intubated. X-ray does not demonstrate any overt pneumonia but patient does have some leukocytosis. She has been afebrile. X-ray does not demonstrate obvious pneumonia but given patient's clinical condition will cover for community-acquired pneumonia with Rocephin and given ICU status will add vancomycin and check MRSA screen. Patient is on chronic suppressive therapy with azithromycin 3 times a week. Given her chronic atypical coverage with azithromycin I will change upper atypical coverage to doxycycline until discussed with infectious disease pharmacist. Will place patient on scheduled Solu-Medrol IV push and scheduled nebulizer treatments. Will place on GI prophylaxis with Protonix. The patient does have elevated troponin likely secondary to type 2 infarct due to profound hypoxia resulting in demand ischemia. Will trend troponins. If troponins continue to trend upward will consider heparin drip. Patient's home levothyroxine will be switched IV formulation while NPO. NG appropriate position The patient has poor peripheral vasculature. She has already had multiple peripheral IVs infiltrate. Both nursing staff/nurse practitioner and hospitalist have all been at bedside attempting IV placement. Currently patient has a 20 in the left forearm and a 22 in the right handed. Will place order for PICC line placement 70 minute spent in critical care activities. Due to a high probability of clinically significant, life threatening deterioration, the patient required my highest level of preparedness to intervene emergently and I personally spent this critical care time directly and personally managing the patient. This critical care time included obtaining a history; examining the patient; pulse oximetry; ordering and review of studies; arranging urgent treatment with development of a management plan; evaluation of patient's response to treatment; frequent reassessment; and discussions with other providers. It was exclusive of separately billable procedures and treating other patients and teaching time. Please see Assessment and Plan section and the rest of the note for further information on patient assessment and treatment. Quality VTE Prophylaxis VTE prophylaxis: pharmacologic ordered (Lovenox 40 mg subQ daily.) Hospitalist [facility] Advance Care Plan I have confirmed that the patient's Advanced Care Plan is present, code status is documented, or surrogate decision maker is listed in patient medical record.: Yes Medication Reconciliation I have utilized all available resources to obtain, update and review the patients current medications (includes all prescriptions, OTC, herbals, cannabis, and nutritional supplements).: Yes
[2024-06-28] MEDS: methylPREDNISolone SOD SUCC 125 MG VIAL 80 MG IV PUSH (22:14)
[2024-06-28] MEDS: cefTRIAXone 2 GM/NS 100 ML 2 GM/100 ML BAG IVPB (22:16)
[2024-06-28] MEDS: SODIUM CHLORIDE 0.9% IV 1,000 ML 125 ML IV CONT (22:17)
[2024-06-28] MEDS: DOXYCYCLINE 100 MG/NS 100 ML 100 MG/100 ML BAG IVPB (23:31)
[2024-06-28 23:40] LABS: Triglycerides 153 mg/dL (<150)
[2024-06-29] VITALS (31 sets, daily range): BP systolic 100–175; BP diastolic 60–78; PULSE 59–86; RESP 14–26; TEMP 36.3–36.7; O2SAT 97–100; BMI 25.9
--- NOTE | 2024-06-29 | ECHO_ITS ---
Patient Info Name: Laxmi Colon Age: 78 years : 1945 Gender: Female Ht: 62 in Wt: 141 lbs BSA: 1.69 m2 HR: 60 bpm BP: 118 / 66 mmHg Technical Quality: Poor Exam Date: 06/29/2024 9:06 AM Exam Location: Echo Lab Patient Status: Inpatient Admit Date: 06/28/2024 Staff Ordering Physician: Rl English MD Leather Sponger: Didier Horton RDCS Attending Provider: Marycarmen Wahl DO Exam Type: CA echo dop color flow w con Study Info Indications - NSTEMI Complete two-dimensional, color flow and Doppler transthoracic echocardiogram is performed with contrast to opacify the left ventricle and to improve the deliniation of the left ventricle endocardial borders. Contrast/Agitated Saline Contrast/Ag. Saline: Definity Amount: 2.00 ml Existing IV Access: Yes Reason for Poor Study: poor echocardiographic windows Summary 1. The left ventricle is normal in size with thickened left ventricular rodríguez. The overall left ventricular systolic function appears preserved. Cannot rule out very mild hypokinesis of the apical wall. 2. The right ventricle is normal in size and systolic function. 3. The there is a small amount of pericardial effusion with no echocardiographic evidence of cardiac tamponade. Left Ventricle The left ventricle is normal in size with thickened left ventricular rodríguez. The overall left ventricular systolic function appears preserved. Cannot rule out very mild hypokinesis of the apical wall. Right Ventricle The right ventricle is normal in size and systolic function. Left Atria The left atrium is normal size. Right Atria The right atrium is normal size. Atrial Septum The atrial septum visually appears intact. Aortic Valve The aortic valve is not well seen however Doppler interrogation does not suggest any significant stenosis or regurgitation. Pulmonic Valve The pulmonic valve is not well visualized. Mitral Valve The mitral valve is not well visualized. Tricuspid Valve The tricuspid valve is not well visualized. Pericardium/Pleural The there is a small amount of pericardial effusion with no echocardiographic evidence of cardiac tamponade. Inferior Vena Cava Normal inferior vena cava with <50% collapse upon inspiration consistent with elevated right atrial pressure, 8 mmHg. Aorta The aortic root is not well visualized. Left Ventricular Outflow Tract Name Value Normal LVOT 2D LVOT Diameter 2.28 cm LVOT Doppler LVOT Peak Gradient 3 mmHg LVOT Mean Gradient 2 mmHg LVOT VTI 20.28 cm LVOT VTI/AV VTI Ratio 0.94 LVOT Stroke Volume 83.07 ml LVOT CO 4.68 l/min LVOT CI 2.78 L/min/m2 Pulmonic Valve Name Value Normal RVOT Doppler RVOT Peak Gradient 4 mmHg PV Doppler PV Peak Gradient 4 mmHg Mitral Valve Name Value Normal MV Doppler MV Decel [place] 374.78 cm/s2 MV PHT 0 s MV Area (PHT) 4.95 cm2 4.00-5.00 MV Diastolic Function MV E Peak Velocity 57.42 cm/s MV A Peak Velocity 91.35 cm/s MV E/A 0.63 MV Decel Time 0 s MV Annular TDI MV E/e' (Septal) 9.89 <=8.00 MV E/e' (Lateral) 11.27 <=8.00 MV E/e' (Average) 10.58 Tricuspid Valve Name Value Normal Estimated PAP/RSVP RA Pressure 8 mmHg <=5 Aorta Name Value Normal Ascending Aorta Ao Root Diameter (MM) 2.97 cm Ao Root Diam Index (MM) 1.76 cm/m2 Aortic Valve Name Value Normal AV Doppler AV Peak Velocity 115.26 cm/s AV Peak Gradient 5 mmHg AV Mean Gradient 3 mmHg AV VTI 21.58 cm AV Area (Cont Eq VTI) 3.85 cm2 >=3.00 AV Area (Cont Eq Macario) 3.27 cm2 AV Regurgitation 2D LVOT Area 4.10 cm2 Ventricles Name Value Normal LV Dimensions 2D/MM IVS Diastolic Thickness (2D) 1.45 cm 0.60-1.00 LVID Diastole (2D) 2.81 cm 3.80-5.20 LVIW Diastolic Thickness (2D) 1.74 cm 0.60-0.90 LVID Systole (2D) 2.03 cm 2.20-3.50 LVOT Diameter 2.28 cm LV Mass (2D Cubed) 161.59 g 67.00-162.00 LV Mass Index (2D Cubed) 0.01 g/cm2 0.00-0.01 Relative Wall Thickness (2D) 1.24 LV Fractional Shortening/Ejection Fraction 2D/MM LV Fractional Shortening (2D) 28 % 27-45 LV EF (2D Te[place]) 55 % 54-74 LV Diastolic Volume (4C MOD) 67.39 ml LV EF (4C MOD) 65 % LV Diastolic Volume (2C MOD) 51.05 ml LV EF (2C MOD) 31 % LV Diastolic Volume (BP MOD) 61.12 ml 46.00-106.00 LV Diastolic Volume Index (BP MOD) 0.04 l/m2 0.03-0.06 LV Systolic Volume (BP MOD) 28.35 ml 14.00-42.00 LV Systolic Volume Index (BP MOD) 0.02 l/m2 0.01-0.02 LV EF (BP MOD) 54 % 54-74 LV Diastolic Length (4C) 6.12 cm LV Systolic Length (4C) 4.91 cm LV Stroke Volume (4C MOD) 44.11 ml Atria Name Value Normal LA Dimensions LA Dimension (MM) 3.28 cm 2.70-3.80 LA Volume (4C A-L) 22.24 ml LA Volume (BP A-L) 31.53 ml RA Dimensions RA Area (4C) 11.17 cm2 <=18.00 Report Signatures
[2024-06-29] MEDS: VANCOMYCIN 1,500 MG/NS 500 ML 1,500 MG/500 ML BAG 250 MG IVPB (00:49)
[2024-06-29 00:50] LABS: MRSA (PCR) NOT DETECTED (NOT DETECTE)
[2024-06-29] MEDS: PROPOFOL IV EMULSION 100 ML 13.61 MG IV CONT ×2 (01:10→08:33)
[2024-06-29] MEDS: IPRATROPIUM 0.5 MG/ALBUTEROL SULFATE 2.5 MG AMPUL.NEB 3 ML INHALATION ×4 (01:36→20:00)
[2024-06-29 02:40] LABS: Basophils Percent Auto 0.2 % (0.2-1.2); Hematocrit 34.9 % (37.0-47.0); Hemoglobin 10.7 g/dL (12.0-15.0); Immature Granulocyte Absolute 0.05 K/mm3 (0.00-0.031); Immature Granulocyte Percent A 0.4 % (0-0.5); Lymphocytes Absolute Auto 1.11 K/mm3 (0.9-3.2); Lymphocytes Percent Auto 9.2 % (18.3-44.2); Mean Corpuscular HGB Conc 30.7 g/dl (32-36); Mean Corpuscular Hemoglobin 28.4 pg (26-34); Mean Corpuscular Volume 92.6 fl (80-100); Mean Platelet Volume 10.7 fl (7.4-10.4); Monocytes Absolute Auto 0.3 K/mm3 (0.1-0.6); Monocytes Percent Auto 2.5 % (2.6-8.5); Neutrophils Absolute Auto 10.6 K/mm3 (1.3-6.7); Neutrophils Percent Auto 87.7 % (45.5-73.1); Platelet Count Result 303 k/mm3 (150-375); Red Blood Count 3.77 M/mm3 (4.2-5.4); Red Cell Distribution Width 16.2 % (11.5-14.5); White Blood Count 12.1 K/mm3 (4.5-10.0)
[2024-06-29 02:52] LABS: Alanine Aminotransferase 24 U/L (6-35); Albumin Level 3.7 g/dL (3.5-5.1); Alkaline Phosphatase 120 U/L (38-126); Anion Gap 15 mmol/L (4-12); Aspartate Amino Transferase 29 U/L (14-36); Bilirubin,Total 0.5 mg/dL (0.2-1.3); Blood Urea Nitrogen 18 mg/dL (7-17); Calcium 8.4 mg/dL (8.4-10.2); Carbon Dioxide 21 mmol/L (22-30); Chloride 105 mmol/L (98-107); Estimated CRCL calculation 33 ml/min; Estimated Glomerular Filt Rate > 60; Glucose 146 mg/dL (65-110); Potassium 3.5 mmol/L (3.4-5.0); Sodium 141 mmol/L (137-145)
[2024-06-29 04:53] LABS: Alveolar/Arterial O2 Gradient 177.2 mmHg; Base Excess ABG -3.4 mEq/l (+/-2.0); Carboxyhemoglobin 0.3 % THb (0-2.0); Fractional Inspired Oxygen 40 %; HCO3 ABG 21.2 mEq/l (22.0-26.0); Methemoglobin ABG 0.3 %THb (0-1.5); Oxygen Saturation ABG 92.9 % (95.0-100.0); Oxyhemoglobin 93.3 % THb (90.0-100.0); PCO2 ABG 36.4 mmHg (35.0-45.0); PO2 ABG 66.1 mmHg (80.0-100.0); PO2 FiO2 Ratio Arterial Blood 1.65 %; Reduced Hemoglobin 6.1 %THb (0-5.0); Total Hemoglobin 11.4 g/dL (12.0-18.0); pH ABG 7.383 (7.350-7.450)
[2024-06-29 05:07] LABS: Arterial Blood Gas Ventilator rate 24 /MIN; Device VENTILATOR; Modified Allen's Test Pass; Site Drawn RIGHT RADIAL
[2024-06-29 05:08] LABS: Arterial Blood Gas PEEP 5 cmH2O; Arterial Blood Gas Tidal Volume 320 ml; Arterial Blood Gas Vent Mode CMV
[2024-06-29] MEDS: LEVOTHYROXINE SODIUM INJ 100 MCG/5 ML VIAL 25 MCG IV PUSH (05:50)
[2024-06-29] MEDS: methylPREDNISolone SOD SUCC 125 MG VIAL 80 MG IV PUSH (05:50)
[2024-06-29] MEDS: ASPIRIN 325 MG TABLET FEED TUBE (08:36)
[2024-06-29] MEDS: ENOXAPARIN 40 MG/0.4 ML SYRINGE SUB-Q (08:36)
[2024-06-29] MEDS: ATORVASTATIN 40 MG TABLET PO (08:36)
[2024-06-29] MEDS: POTASSIUM CHLORIDE 20 MEQ PACKET (FOR LIQUID) 40 MEQ FEED TUBE (08:36)
[2024-06-29] MEDS: MINERAL OIL/WHITE PETROLATUM OINTMENT 1 APPLIC EACH EYE ×2 (08:36→20:10)
[2024-06-29] MEDS: PANTOPRAZOLE SODIUM IV 40 MG VIAL IV PUSH (08:36)
--- NOTE | 2024-06-29 08:44 | P.CONIN_ITS ---
Assessment and Plan Assessment and plan (1) Acute on chronic respiratory failure with hypoxia and hypercapnia: Code(s): J96.21 - Acute and chronic respiratory failure with hypoxia; J96.22 - Acute and chronic respiratory failure with hypercapnia Status: Acute Assessment and Plan: Acute on chronic respiratory failure secondary to COPD exacerbation.? Community-acquired pneumonia although chest x-ray is not suggestive and patient is low procalcitonin level. WBC elevated MRSA screen negative Blood cultures have been sent Continue Rocephin and doxycycline DC vancomycin Continue bronchodilators, steroid ABG and chest x-ray reviewed (2) Acute exacerbation of chronic obstructive pulmonary disease: Code(s): J44.1 - Chronic obstructive pulmonary disease with (acute) exacerbation Status: Acute Assessment and Plan: See above (3) Elevated troponin: Code(s): R77.8 - Other specified abnormalities of plasma proteins Status: Acute Assessment and Plan: Patient has elevated troponin likely secondary to demand ischemia from acute respiratory failure. EKG reviewed and does not show any ST elevation. Patient does not have any documented history of coronary disease. Continue troponins Add aspirin and statin Consult cardiology Check echocardiogram Hold beta-mika due to sinus bradycardia while on sedation (4) Hypothyroidism: Code(s): E03.9 - Hypothyroidism, unspecified Status: Acute Assessment and Plan: Continue levothyroxine. , check TSH (5) Electrolyte abnormality: Code(s): E87.8 - Other disorders of electrolyte and fluid balance, not elsewhere classified Status: Acute Assessment and Plan: Replace low potassium Plan DVT prophylaxis -Lovenox Stress ulcer prophylaxis -PPI Nutrition -start Tube Feeds Code Status - Full Code Total Critical Care Time - 35 minutes Due to a high probability of clinically significant, life threatening deterioration, the patient required my highest level of preparedness to intervene emergently and I personally spent this critical care time directly and personally managing the patient. This critical care time included obtaining a history; examining the patient; pulse oximetry; ordering and review of studies; arranging urgent treatment with development of a management plan; evaluation of patient's response to treatment; frequent reassessment; and discussions with other providers. It was exclusive of separately billable procedures and treating other patients and teaching time. Please see Assessment and Plan section and the rest of the note for further information on patient assessment and treatment Belt Cleaner Consult Note Consult date: 06/29/24 Reason for consult: Acute on chronic respiratory failure HPI: Laxmi Colon is a 78 year old female with past medical history of COPD with chronic hypoxic hypercapnic respiratory failure on home O2 of 4 L at night, COPD, obstructive sleep apnea on CPAP at night, diastolic dysfunction, and hypothyroidism who presented to the ER yesterday via EMS due to respiratory distress. Per ER physician report and EMS report the patient had only been having respiratory distress for about 15 minutes prior to EMS arrival but been had been having some shortness of breath for a few hours. Patient was hypoxic and tachypneic on arrival. She was initially placed on CPAP by EMS and treated with 2 g of magnesium in the field in 10 mg of Decadron. The patient was in overt distress on arrival to the ER. She was given a nebulizer treatment with albuterol and placed on BiPAP 12/5 with a rate of 12. ABG was obtained which demonstrated pH of 7.2, pCO2 71 and PO2 of 84. The patient briefly reported improvement in symptoms but then rapidly decompensated in she requested intubation. Patient was intubated by ER physician with a 7.5 ET tube. Patient was sedated and then transferred to ICU for further evaluation management. Patient at this time is sedated on mechanical ventilation and unable to provide any history. History was obtained from physician sign-out and chart review Review of Systems 2 Review of Systems: ROS unobtainable: Yes unobtainable due to endotracheal tube, unobtainable due to medical condition and unobtainable due to mental status PMFSH Past Medical History Medical History Diastolic dysfunction Grade 1 Diastolic dysfunction noted on echocardiogram from 2020 repeat echo in 2022 demonstrated EF of 70% with indeterminate diastolic function with mild pulmonary hypertension with RVSP of 38 Chronic respiratory failure with hypoxia and hypercapnia On home O2 of 3 L and nighttime PAP therapy Renal mass Lung nodule Hypothyroidism COPD (chronic obstructive pulmonary disease) CHERYL on CPAP History of tobacco use History of heart attack Elevated lipids Hypertension H/O vaginal delivery Thyroid disease Lung nodule Renal mass Essential hypertension Former smoker Quit 2018 with 54 pack per year history Hypothyroidism Coronary artery disease Hyperlipidemia Diastolic dysfunction With echocardiogram 2022 demonstrated EF is 70% mild pulmonary hypertension with RVSP of 38, prior echocardiogram 2020 demonstrated grade 1 diastolic dysfunction Obstructive sleep apnea on CPAP With 4 L of bleed in oxygen Chronic respiratory failure with hypoxia and hypercapnia Home O2 of 4 L Surgical History Surgical History Status post extracapsular cataract extraction of left eye History of total abdominal hysterectomy and bilateral salpingo-oophorectomy History of tubal ligation History of cholecystectomy History of tubal ligation History of total abdominal hysterectomy and bilateral salpingo-oophorectomy Hx of cholecystectomy Family History Family History Mother Hypertension Sibling Family history of malignant neoplasm of kidney Family history of lung cancer Lung disease Mother Hypertension Sibling Malignant neoplasm of kidney Lung cancer Social History Social History Social History: Currently lives with in [place]. They have been since 1965 Surrogate decisionmaker: William, . Full Code. Retired from [employer]. Patient has 3 children. Smoking packs per day: 1 Smoking cigarettes per day: 20.0 Years smoked: 54 Smoking pack-years: 54.00 Smoking status: Former smoker Tobacco type: cigarettes Smoking end date: 10/27/18 Alcohol intake: never Substance use: never Do You Feel Safe in your Home?: Yes Lack of Transportation: No Lack of Food: Never True Current Housing: I Have Housing Concerned About Future Housing: No Difficulty Paying Gas/Electric Bills: No Difficulty Paying for Meds: No Currently Unemployed: No Education: Decline to Answer Difficulty w/ Childcare or Family Care: No Living arrangements: with family Occupation/Education: retired Gender identity (if verbalized by the patient): Female Spiritual care concerns: No Meds Home Medications and Allergies Home Medications ?Medication ?Instructions ?Recorded ?Confirmed ?Type atorvastatin 40 mg tablet 40 mg PO DAILY 05/05/19 12/03/23 History aspirin 81 mg tablet,delayed 81 mg PO DAILY 05/06/19 12/03/23 History release calcium carbonate 600 mg PO BID 05/06/19 12/03/23 History levothyroxine 50 mcg tablet 50 mcg PO DAILY 05/06/19 12/03/23 History levalbuterol HCl 1.25 mg/3 mL 0.63 mg (1.512 mL) inhalation 10/04/23 12/03/23 Rx solution for nebulization Q6HRT PRN shortness of breath or wheezing #72 mL azithromycin 250 mg tablet 500 mg (2 x 250 mg) PO QMWF #36 12/03/23 12/03/23 Rx tabs budesonide 160 mcg-glycopyr 9 2 inh inhalation BID #32.1 grams 12/03/23 12/03/23 Rx mcg-formot 4.8 mcg/actuation HFA inhaler (Breztri Aerosphere) albuterol sulfate 90 mcg/actuation 2 puff inhalation Q4H PRN 01/21/24 Rx aerosol inhaler shortness of breath, wheezing #8.5 grams albuterol 90 mcg/actuation aerosol 90 mcg inhalation PRN 06/28/24 06/28/24 History inhaler atorvastatin 40 mg tablet (Lipitor) 40 mg PO DAILY 06/28/24 06/28/24 History azithromycin 250 mg tablet 500 mg PO .COMPLEX 06/28/24 06/28/24 History levothyroxine 50 mcg capsule 50 mcg PO DAILY 06/28/24 06/28/24 History Allergies Allergy/AdvReac Type Severity Reaction Status Date / Time No Known Allergies Allergy Verified 06/29/24 08:19 Vital Signs Vital Signs - 24 hr 06/28/24 17:07 06/28/24 17:15 06/28/24 17:24 Temperature 36.4 C Pulse Rate 93 96 Respiratory Rate 24 H 19 Blood Pressure 177/88 H Pulse Oximetry 100 96 96 Oxygen Delivery BiPAP BiPAP BiPAP Fraction of Inspired Oxygen 30 06/28/24 17:31 06/28/24 17:32 06/28/24 17:37 Temperature Pulse Rate 102 H 104 H Respiratory Rate 27 H 25 H Blood Pressure 215/96 H Pulse Oximetry 93 Oxygen Delivery Fraction of Inspired Oxygen 06/28/24 17:50 06/28/24 18:11 06/28/24 18:27 Temperature Pulse Rate 96 96 99 Respiratory Rate 20 22 H 19 Blood Pressure 120/101 H Pulse Oximetry 92 95 Oxygen Delivery BiPAP Fraction of Inspired Oxygen 06/28/24 18:46 06/28/24 19:04 06/28/24 19:04 Temperature Pulse Rate 93 92 91 Respiratory Rate 20 28 H 28 H Blood Pressure 131/102 H Pulse Oximetry 99 99 Oxygen Delivery BiPAP Fraction of Inspired Oxygen 06/28/24 19:45 06/28/24 19:46 06/28/24 20:00 Temperature Pulse Rate 93 97 91 Respiratory Rate 21 H 18 Blood Pressure Pulse Oximetry 100 Oxygen Delivery Mechanical Ventilation Fraction of Inspired Oxygen 40 06/28/24 20:05 06/28/24 21:13 06/28/24 21:30 Temperature Pulse Rate 86 70 70 Respiratory Rate 17 24 H 24 H Blood Pressure 122/62 Pulse Oximetry 100 Oxygen Delivery Fraction of Inspired Oxygen 06/28/24 21:30 06/28/24 21:30 06/28/24 21:36 Temperature 35.8 C L Pulse Rate 68 74 Respiratory Rate 24 H Blood Pressure 111/63 Pulse Oximetry 100 100 95 Oxygen Delivery Mechanical Ventilation Mechanical Ventilation Fraction of Inspired Oxygen 40 40 06/28/24 21:45 06/28/24 22:00 06/28/24 22:00 Temperature Pulse Rate 70 67 68 Respiratory Rate 24 H 24 H 24 H Blood Pressure 121/64 Pulse Oximetry 100 Oxygen Delivery Fraction of Inspired Oxygen 06/28/24 22:00 06/28/24 22:40 06/29/24 00:00 Temperature Pulse Rate 68 70 63 Respiratory Rate 24 H Blood Pressure Pulse Oximetry 100 Oxygen Delivery Mechanical Ventilation Fraction of Inspired Oxygen 40 06/29/24 00:00 06/29/24 00:00 06/29/24 00:00 Temperature 36.4 C L Pulse Rate 63 63 Respiratory Rate 24 H Blood Pressure 136/71 Pulse Oximetry 100 100 Oxygen Delivery Mechanical Ventilation Fraction of Inspired Oxygen 40 06/29/24 00:00 06/29/24 01:10 06/29/24 01:37 Temperature Pulse Rate 63 61 Respiratory Rate 24 H Blood Pressure Pulse Oximetry 100 Oxygen Delivery Mechanical Ventilation Fraction of Inspired Oxygen 40 40 06/29/24 01:37 06/29/24 02:00 06/29/24 02:00 Temperature Pulse Rate 61 64 64 Respiratory Rate 24 H 24 H Blood Pressure Pulse Oximetry Oxygen Delivery Fraction of Inspired Oxygen 06/29/24 02:00 06/29/24 04:00 06/29/24 04:00 Temperature Pulse Rate 64 61 Respiratory Rate 24 H 24 H Blood Pressure 118/64 Pulse Oximetry 98 100 Oxygen Delivery Mechanical Ventilation Fraction of Inspired Oxygen 40 06/29/24 04:00 06/29/24 04:00 06/29/24 04:00 Temperature 36.3 C L Pulse Rate 61 61 Respiratory Rate 24 H Blood Pressure 133/71 Pulse Oximetry 100 Oxygen Delivery Fraction of Inspired Oxygen 40 06/29/24 04:40 06/29/24 05:50 06/29/24 06:00 Temperature Pulse Rate 60 59 L 60 Respiratory Rate 24 H Blood Pressure Pulse Oximetry 99 Oxygen Delivery Mechanical Ventilation Fraction of Inspired Oxygen 40 06/29/24 06:00 06/29/24 06:03 06/29/24 07:49 Temperature Pulse Rate 60 61 63 Respiratory Rate 24 H 24 H Blood Pressure 118/66 Pulse Oximetry 99 98 Oxygen Delivery Mechanical Ventilation Fraction of Inspired Oxygen 40 06/29/24 07:49 06/29/24 07:59 06/29/24 08:00 Temperature Pulse Rate 63 60 60 Respiratory Rate 24 H 24 H 24 H Blood Pressure Pulse Oximetry Oxygen Delivery Fraction of Inspired Oxygen 06/29/24 08:33 06/29/24 08:33 Temperature Pulse Rate 74 74 Respiratory Rate 24 H 24 H Blood Pressure Pulse Oximetry Oxygen Delivery Fraction of Inspired Oxygen Exam 2 Narrative: General: Pt is sedated, intubated and on mechanical ventilation Lungs/Chest: Trachea central decreased air movement and breath sounds bilaterally, No crackles or wheezing. Cardiac: RRR. Normal S1 S2. No murmurs Circulation: Pedal pulses are intact and symmetrical. Abdomen: Decreased bowel sounds. Obese. Soft. NT. ND. Extremities: No clubbing, cyanosis or edema. Warm : [place] in place Neurologic: Unable to assess due to sedation. Moves all 4 extremities to painful stimuli. PERRL Results Labs 06/29/24 02:30 06/29/24 02:30 Labs: Impressions Chest X-Ray 06/28/24 18:22 IMPRESSION: Emphysematous change without focal infiltrate, as detailed above. Chest X-Ray 06/28/24 19:59 IMPRESSION: Endotracheal tube withdrawal of approximately 4 cm is suggested for optimal radiographic placement. Nasogastric tube extends below the left hemidiaphragm, presumably within the stomach. Remainder of examination is otherwise unchanged from earlier study performed approximately 45 minutes earlier. Abdomen X-Ray 06/28/24 20:03 IMPRESSION: Nasogastric tube in good position and ready for immediate use. Chest X-Ray 06/29/24 07:07 Impression: COPD. Linear bibasilar scarring and mild nonspecific bibasilar interstitial prominence. Support tubes, as above. Short CBC 06/28/24 06/29/24 Range/Units 17:30 02:30 WBC 18.3 H 12.1 H (4.5-10.0) K/mm3 Hgb 11.8 L 10.7 L (12.0-15.0) g/dL Hct 38.6 34.9 L (37.0-47.0) % Plt Count 413 H 303 (150-375) k/mm3 BMP 06/28/24 06/29/24 17:30 02:30 Sodium 140 141 Potassium 3.8 3.5 Chloride 99 105 Carbon Dioxide 31 H 21 L BUN 16 18 H Creatinine 1.20 H 1.01 H Glucose 193 H 146 H Calcium 8.7 8.4 Cardiac Enzymes 06/28/24 06/28/24 06/29/24 Range/Units 17:30 23:21 02:30 Troponin I 0.097 H* 1.030 H* D 1.070 H* (0.000-0.034) ng/mL Liver Function 06/28/24 06/29/24 Range/Units 17:30 02:30 Total Bilirubin 0.5 0.5 (0.2-1.3) mg/dL AST 33 29 (14-36) U/L ALT 30 24 (6-35) U/L Alkaline Phosphatase 138 H 120 (38-126) U/L Albumin 4.3 3.7 (3.5-5.1) g/dL Quality VTE Prophylaxis VTE prophylaxis: pharmacologic ordered Hospitalist MIPS Advance Care Plan I have confirmed that the patient's Advanced Care Plan is present, code status is documented, or surrogate decision maker is listed in patient medical record.: Yes Medication Reconciliation I have utilized all available resources to obtain, update and review the patients current medications (includes all prescriptions, OTC, herbals, cannabis, and nutritional supplements).: Yes
[2024-06-29 09:08] LABS: Troponin I 0.916 ng/mL (0.000-0.034)
[2024-06-29] MEDS: PERFLUTREN LIPID MICROSPHERES 1.5 ML VIAL DILUTED TO 10 ML TOTAL VOLUME IV PUSH (09:40)
[2024-06-29] MEDS: SODIUM CHLORIDE 0.9% IV 1,000 ML 125 ML IV CONT ×2 (09:48→18:33)
[2024-06-29] MEDS: DOXYCYCLINE 100 MG/NS 100 ML 100 MG/100 ML BAG IVPB ×2 (11:26→22:38)
[2024-06-29 11:32] LABS: Glucose Point of Care 135 mg/dl (65-105)
[2024-06-29] MEDS: LIDOCAINE 1% PF INJ 5 ML VIAL INFILTRATE (11:50)
[2024-06-29] MEDS: PROPOFOL IV EMULSION 100 ML 17.5 MG IV CONT ×2 (13:08→18:31)
--- NOTE | 2024-06-29 13:37 | IVDEFINITY ---
Prior to administration of IV Definity the patient was educated on the risks and benefits of the imaging enhancing agent including potential adverse side effects. The patient verbalized understanding. Allergies were verified. No exclusion criteria were identified and at least one of the following inclusion criteria were met: 1) physician request, 2) patient technically difficult to image (per the [place] [employer] guidelines of two or more segments not discernable within the apical view), or 3) questionable left ventricular function. ?
[2024-06-29] MEDS: CENTRAL LINE FLUSH 10 ML IV PUSH ×2 (15:20→22:39)
--- NOTE | 2024-06-29 15:29 | P.CONCA_ITS ---
Assessment and Plan Assessment and plan (1) Non-ST elevation RI (NSTEMI): Code(s): I21.4 - Non-ST elevation (NSTEMI) myocardial infarction Status: Acute Plan 78-year-old woman with chronic hypoxic respiratory failure on home O2 4 L at night and hyperlipidemia presented with acute respiratory distress found to have elevated troponins Non ST elevation RI -would switch her aspirin to 81 mg p.o. daily -continue atorvastatin 40 mg every evening -recommend heparin drip -will re-evaluate need to repeat transthoracic echocardiogram or pursue ischemic eval once extubated Hyperlipidemia -continue atorvastatin 40 mg every evening Acute on chronic hypoxic respiratory failure -currently ventilated on antibiotics History of Present Illness History of Present Illness Consult date/time: 06/29/24 15:29 Requesting physician: Rl English MD Consult reason: Other Reason For Visit: COPD exacerbation, Orotracheal intubation Narrative: 78-year-old woman with chronic hypoxic respiratory failure on home O2 4 L at night and hyperlipidemia presented with acute respiratory distress. She is currently intubated and history obtained through chart review. It appeared that she had worsening shortness of breath for 15 minutes prior to EMS arrival which mildly improved with CPAP in 10 mg of Decadron with 2 g of magnesium. However she quickly further decompensated requiring intubation with ABG demonstrating hypoxic hypercarbic acidosis. As part of her workup troponins were drawn which were elevated. Review of Systems 2 Review of Systems: ROS unobtainable: Yes unobtainable due to endotracheal tube PMFSH Past Medical History Medical History Diastolic dysfunction Grade 1 Diastolic dysfunction noted on echocardiogram from 2020 repeat echo in 2022 demonstrated EF of 70% with indeterminate diastolic function with mild pulmonary hypertension with RVSP of 38 Chronic respiratory failure with hypoxia and hypercapnia On home O2 of 3 L and nighttime PAP therapy Renal mass Lung nodule Hypothyroidism COPD (chronic obstructive pulmonary disease) CHERYL on CPAP History of tobacco use History of heart attack Elevated lipids Hypertension H/O vaginal delivery Thyroid disease Lung nodule Renal mass Essential hypertension Former smoker Quit 2018 with 54 pack per year history Hypothyroidism Coronary artery disease Hyperlipidemia Diastolic dysfunction With echocardiogram 2022 demonstrated EF is 70% mild pulmonary hypertension with RVSP of 38, prior echocardiogram 2020 demonstrated grade 1 diastolic dysfunction Obstructive sleep apnea on CPAP With 4 L of bleed in oxygen Chronic respiratory failure with hypoxia and hypercapnia Home O2 of 4 L Surgical History Surgical History Status post extracapsular cataract extraction of left eye History of total abdominal hysterectomy and bilateral salpingo-oophorectomy History of tubal ligation History of cholecystectomy History of tubal ligation History of total abdominal hysterectomy and bilateral salpingo-oophorectomy Hx of cholecystectomy Family History Family History Mother Hypertension Sibling Family history of malignant neoplasm of kidney Family history of lung cancer Lung disease Mother Hypertension Sibling Malignant neoplasm of kidney Lung cancer Social History Social History Social History: Currently lives with in [place]. They have been since 1965 Surrogate decisionmaker: William, . Full Code. Retired from [employer]. Patient has 3 children. Smoking packs per day: 1 Smoking cigarettes per day: 20.0 Years smoked: 54 Smoking pack-years: 54.00 Smoking status: Former smoker Tobacco type: cigarettes Smoking end date: 10/27/18 Alcohol intake: never Substance use: never Do You Feel Safe in your Home?: Yes Lack of Transportation: No Lack of Food: Never True Current Housing: I Have Housing Concerned About Future Housing: No Difficulty Paying Gas/Electric Bills: No Difficulty Paying for Meds: No Currently Unemployed: No Education: Decline to Answer Difficulty w/ Childcare or Family Care: No Living arrangements: with family Occupation/Education: retired Gender identity (if verbalized by the patient): Female Spiritual care concerns: No Meds Home Medications and Allergies Home Medications ?Medication ?Instructions ?Recorded ?Confirmed ?Type atorvastatin 40 mg tablet 40 mg PO DAILY 05/05/19 12/03/23 History aspirin 81 mg tablet,delayed 81 mg PO DAILY 05/06/19 12/03/23 History release calcium carbonate 600 mg PO BID 05/06/19 12/03/23 History levothyroxine 50 mcg tablet 50 mcg PO DAILY 05/06/19 12/03/23 History levalbuterol HCl 1.25 mg/3 mL 0.63 mg (1.512 mL) inhalation 10/04/23 12/03/23 Rx solution for nebulization Q6HRT PRN shortness of breath or wheezing #72 mL azithromycin 250 mg tablet 500 mg (2 x 250 mg) PO QMWF #36 12/03/23 12/03/23 Rx tabs budesonide 160 mcg-glycopyr 9 2 inh inhalation BID #32.1 grams 12/03/23 12/03/23 Rx mcg-formot 4.8 mcg/actuation HFA inhaler (Breztri Aerosphere) albuterol sulfate 90 mcg/actuation 2 puff inhalation Q4H PRN 01/21/24 Rx aerosol inhaler shortness of breath, wheezing #8.5 grams albuterol 90 mcg/actuation aerosol 90 mcg inhalation PRN 06/28/24 06/28/24 History inhaler atorvastatin 40 mg tablet (Lipitor) 40 mg PO DAILY 06/28/24 06/28/24 History azithromycin 250 mg tablet 500 mg PO .COMPLEX 06/28/24 06/28/24 History levothyroxine 50 mcg capsule 50 mcg PO DAILY 06/28/24 06/28/24 History Allergies Allergy/AdvReac Type Severity Reaction Status Date / Time No Known Allergies Allergy Verified 06/29/24 08:19 Vital Signs Vital Signs - 24 hr 06/28/24 17:07 06/28/24 17:15 06/28/24 17:24 Temperature 36.4 C Pulse Rate 93 96 Respiratory Rate 24 H 19 Blood Pressure 177/88 H Pulse Oximetry 100 96 96 Oxygen Delivery BiPAP BiPAP BiPAP Fraction of Inspired Oxygen 30 06/28/24 17:31 06/28/24 17:32 06/28/24 17:37 Temperature Pulse Rate 102 H 104 H Respiratory Rate 27 H 25 H Blood Pressure 215/96 H Pulse Oximetry 93 Oxygen Delivery Fraction of Inspired Oxygen 06/28/24 17:50 06/28/24 18:11 06/28/24 18:27 Temperature Pulse Rate 96 96 99 Respiratory Rate 20 22 H 19 Blood Pressure 120/101 H Pulse Oximetry 92 95 Oxygen Delivery BiPAP Fraction of Inspired Oxygen 06/28/24 18:46 06/28/24 19:04 06/28/24 19:04 Temperature Pulse Rate 93 92 91 Respiratory Rate 20 28 H 28 H Blood Pressure 131/102 H Pulse Oximetry 99 99 Oxygen Delivery BiPAP Fraction of Inspired Oxygen 06/28/24 19:45 06/28/24 19:46 06/28/24 20:00 Temperature Pulse Rate 93 97 91 Respiratory Rate 21 H 18 Blood Pressure Pulse Oximetry 100 Oxygen Delivery Mechanical Ventilation Fraction of Inspired Oxygen 40 06/28/24 20:05 06/28/24 21:13 06/28/24 21:30 Temperature Pulse Rate 86 70 70 Respiratory Rate 17 24 H 24 H Blood Pressure 122/62 Pulse Oximetry 100 Oxygen Delivery Fraction of Inspired Oxygen 06/28/24 21:30 06/28/24 21:30 06/28/24 21:36 Temperature 35.8 C L Pulse Rate 68 74 Respiratory Rate 24 H Blood Pressure 111/63 Pulse Oximetry 100 100 95 Oxygen Delivery Mechanical Ventilation Mechanical Ventilation Fraction of Inspired Oxygen 40 40 06/28/24 21:45 06/28/24 22:00 06/28/24 22:00 Temperature Pulse Rate 70 67 68 Respiratory Rate 24 H 24 H 24 H Blood Pressure 121/64 Pulse Oximetry 100 Oxygen Delivery Fraction of Inspired Oxygen 06/28/24 22:00 06/28/24 22:40 06/29/24 00:00 Temperature Pulse Rate 68 70 63 Respiratory Rate 24 H Blood Pressure Pulse Oximetry 100 Oxygen Delivery Mechanical Ventilation Fraction of Inspired Oxygen 40 06/29/24 00:00 06/29/24 00:00 06/29/24 00:00 Temperature 36.4 C L Pulse Rate 63 63 Respiratory Rate 24 H Blood Pressure 136/71 Pulse Oximetry 100 100 Oxygen Delivery Mechanical Ventilation Fraction of Inspired Oxygen 40 06/29/24 00:00 06/29/24 01:10 06/29/24 01:37 Temperature Pulse Rate 63 61 Respiratory Rate 24 H Blood Pressure Pulse Oximetry 100 Oxygen Delivery Mechanical Ventilation Fraction of Inspired Oxygen 40 40 06/29/24 01:37 06/29/24 02:00 06/29/24 02:00 Temperature Pulse Rate 61 64 64 Respiratory Rate 24 H 24 H Blood Pressure Pulse Oximetry Oxygen Delivery Fraction of Inspired Oxygen 06/29/24 02:00 06/29/24 04:00 06/29/24 04:00 Temperature Pulse Rate 64 61 Respiratory Rate 24 H 24 H Blood Pressure 118/64 Pulse Oximetry 98 100 Oxygen Delivery Mechanical Ventilation Fraction of Inspired Oxygen 40 06/29/24 04:00 06/29/24 04:00 06/29/24 04:00 Temperature 36.3 C L Pulse Rate 61 61 Respiratory Rate 24 H Blood Pressure 133/71 Pulse Oximetry 100 Oxygen Delivery Fraction of Inspired Oxygen 40 06/29/24 04:40 06/29/24 05:50 06/29/24 06:00 Temperature Pulse Rate 60 59 L 60 Respiratory Rate 24 H Blood Pressure Pulse Oximetry 99 Oxygen Delivery Mechanical Ventilation Fraction of Inspired Oxygen 40 06/29/24 06:00 06/29/24 06:03 06/29/24 07:49 Temperature Pulse Rate 60 61 63 Respiratory Rate 24 H 24 H Blood Pressure 118/66 Pulse Oximetry 99 98 Oxygen Delivery Mechanical Ventilation Fraction of Inspired Oxygen 40 06/29/24 07:49 06/29/24 07:59 06/29/24 08:00 Temperature Pulse Rate 63 60 60 Respiratory Rate 24 H 24 H 24 H Blood Pressure Pulse Oximetry Oxygen Delivery Fraction of Inspired Oxygen 06/29/24 08:00 06/29/24 08:00 06/29/24 08:00 Temperature 36.4 C Pulse Rate 60 Respiratory Rate 26 H Blood Pressure 115/64 Pulse Oximetry 98 98 Oxygen Delivery Mechanical Ventilation Fraction of Inspired Oxygen 40 40 06/29/24 08:00 06/29/24 08:33 06/29/24 08:33 Temperature Pulse Rate 61 74 74 Respiratory Rate 24 H 24 H Blood Pressure Pulse Oximetry Oxygen Delivery Fraction of Inspired Oxygen 06/29/24 08:51 06/29/24 10:00 06/29/24 10:00 Temperature Pulse Rate 86 85 85 Respiratory Rate 22 H 24 H Blood Pressure 175/78 H Pulse Oximetry 100 Oxygen Delivery Fraction of Inspired Oxygen 06/29/24 10:06 06/29/24 10:51 06/29/24 12:00 Temperature Pulse Rate 85 78 75 Respiratory Rate 26 H Blood Pressure Pulse Oximetry 97 Oxygen Delivery Mechanical Ventilation Fraction of Inspired Oxygen 40 06/29/24 12:00 06/29/24 12:00 06/29/24 12:00 Temperature Pulse Rate 75 Respiratory Rate 22 H Blood Pressure Pulse Oximetry 98 Oxygen Delivery Mechanical Ventilation Fraction of Inspired Oxygen 40 40 06/29/24 12:00 06/29/24 13:08 06/29/24 13:08 Temperature 36.7 C Pulse Rate 70 74 74 Respiratory Rate 22 H 20 20 Blood Pressure 100/60 Pulse Oximetry 98 Oxygen Delivery Fraction of Inspired Oxygen 06/29/24 13:17 06/29/24 13:17 06/29/24 13:26 Temperature Pulse Rate 73 73 74 Respiratory Rate 20 20 Blood Pressure Pulse Oximetry 97 Oxygen Delivery Mechanical Ventilation Fraction of Inspired Oxygen 40 06/29/24 14:00 06/29/24 14:00 06/29/24 14:00 Temperature Pulse Rate 72 72 72 Respiratory Rate 22 H 22 H Blood Pressure 105/62 Pulse Oximetry 98 Oxygen Delivery Fraction of Inspired Oxygen Exam 2 Const: Other: Intubated and sedated HENMT: Mouth: Yes moist mucous membranes Neck: Neck: no JVD Resp: Auscultation: diminished lung sounds Cardio: Rate: regular rate Rhythm: regular rhythm Results Labs and Meds 06/29/24 02:30 06/29/24 02:30 Lab results: Cardiac Enzymes 06/28/24 06/28/24 06/29/24 Range/Units 17:30 23:21 02:30 AST 33 29 (14-36) U/L Troponin I 0.097 H* 1.030 H* D 1.070 H* (0.000-0.034) ng/mL 06/29/24 Range/Units 08:30 AST (14-36) U/L Troponin I 0.916 H* (0.000-0.034) ng/mL Coagulation 06/28/24 Range/Units 17:31 PT 14.2 (11.1-14.7) Seconds APTT 29.5 (22.3-36.8) Seconds Lipids 06/28/24 06/28/24 06/28/24 Range/Units 17:30 23:21 23:21 Triglycerides 162 H 153 H Cancelled (<150) mg/dL CBC 06/28/24 06/29/24 Range/Units 17:30 02:30 WBC 18.3 H 12.1 H (4.5-10.0) K/mm3 RBC 4.19 L 3.77 L (4.2-5.4) M/mm3 Hgb 11.8 L 10.7 L (12.0-15.0) g/dL Hct 38.6 34.9 L (37.0-47.0) % Plt Count 413 H 303 (150-375) k/mm3 Lymph # (Auto) 8.28 H 1.11 (0.9-3.2) K/mm3 [place] # (Auto) 0.9 H 0.3 (0.1-0.6) K/mm3 Eos # (Auto) 0.3 0.0 (0-0.3) K/mm3 Baso # (Auto) 0.1 0.0 (0.0-0.1) K/mm3 Comprehensive Metabolic Panel 06/28/24 06/29/24 Range/Units 17:30 02:30 Sodium 140 141 (137-145) mmol/L Potassium 3.8 3.5 (3.4-5.0) mmol/L Chloride 99 105 (98-107) mmol/L Carbon Dioxide 31 H 21 L (22-30) mmol/L BUN 16 18 H (7-17) mg/dL Creatinine 1.20 H 1.01 H (0.7-1.0) mg/dL Glucose 193 H 146 H (65-110) mg/dL Calcium 8.7 8.4 (8.4-10.2) mg/dL AST 33 29 (14-36) U/L ALT 30 24 (6-35) U/L Alkaline Phosphatase 138 H 120 (38-126) U/L Total Protein 7.0 7.0 (6.3-8.2) g/dL Albumin 4.3 3.7 (3.5-5.1) g/dL Intake and Output 06/28/24 06/29/24 06/29/24 23:59 07:59 15:59 Intake Total 114.3 1014.0 800.1 Output Total 500 Balance 114.3 514.0 800.1 Intake: IV 114.3 1014.0 800.1 Propofol IV Emulsion 100 ml @ 14.3 93.2 120.9 30 MCG/KG/MIN 11.664 mls/hr IV CONT .[id number] [facility] Rx#:[id number] Sodium Chloride 0.9% IV 1,000 320.8 679.2 ml @ 125 mls/hr IV CONT .Q8H [facility] Rx#:[id number] Doxycycline 100 mg/Ns 100 ml 100 100 mg In 100 ml @ 100 mls/hr IVPB Q12H [facility] Rx#:[id number] Vancomycin 1,500 mg/Ns 500 ml 1 500 ,500 mg In 500 ml @ 250 mls/hr IVPB ONCE ONE Rx#:[id number] cefTRIAXone 2 GM/NS 100 ML 2 gm 100 In 100 ml @ 200 mls/hr IVPB Q24H [facility] Rx#:[id number] Output: Catheter Urine 250 Urethral Catheter 250 Gastric Drainage 250 [place] Sump Oral 250 Patient Weight 06/29/24 23:59 Weight 64.3 kg
[2024-06-29 17:31] LABS: Glucose Point of Care 137 mg/dl (65-105)
[2024-06-29] MEDS: cefTRIAXone 2 GM/NS 100 ML 2 GM/100 ML BAG IVPB (20:10)
[2024-06-30] VITALS (36 sets, daily range): BP systolic 100–142; BP diastolic 47–75; PULSE 71–92; RESP 16–25; TEMP 36.6–37.3; O2SAT 93–100
[2024-06-30 00:09] LABS: Glucose Point of Care 159 mg/dl (65-105)
[2024-06-30] MEDS: PROPOFOL IV EMULSION 100 ML 15.55 MG IV CONT ×3 (00:35→11:47)
[2024-06-30] MEDS: IPRATROPIUM 0.5 MG/ALBUTEROL SULFATE 2.5 MG AMPUL.NEB 3 ML INHALATION ×4 (02:07→20:29)
[2024-06-30] MEDS: CENTRAL LINE FLUSH 10 ML IV PUSH ×3 (05:12→20:42)
[2024-06-30] MEDS: LEVOTHYROXINE SODIUM 50 MCG TABLET FEED TUBE (05:12)
[2024-06-30 05:15] LABS: Hematocrit 31.4 % (37.0-47.0); Hemoglobin 9.7 g/dL (12.0-15.0); Mean Corpuscular HGB Conc 30.9 g/dl (32-36); Mean Corpuscular Hemoglobin 28.5 pg (26-34); Mean Corpuscular Volume 92.4 fl (80-100); Mean Platelet Volume 10.7 fl (7.4-10.4); Platelet Count Result 314 k/mm3 (150-375); Red Cell Distribution Width 17.2 % (11.5-14.5); White Blood Count 18.1 K/mm3 (4.5-10.0)
[2024-06-30 05:27] LABS: Alanine Aminotransferase 23 U/L (6-35); Albumin Level 3.4 g/dL (3.5-5.1); Alkaline Phosphatase 98 U/L (38-126); Anion Gap 8 mmol/L (4-12); Aspartate Amino Transferase 24 U/L (14-36); Bilirubin,Total 0.3 mg/dL (0.2-1.3); Blood Urea Nitrogen 29 mg/dL (7-17); Calcium 8.3 mg/dL (8.4-10.2); Carbon Dioxide 24 mmol/L (22-30); Chloride 112 mmol/L (98-107); Estimated CRCL calculation 27 ml/min; Estimated Glomerular Filt Rate 52; Glucose 134 mg/dL (65-110); Magnesium 2.2 mg/dL (1.6-2.3); Potassium 4.3 mmol/L (3.4-5.0); Sodium 144 mmol/L (137-145)
[2024-06-30 05:31] LABS: Alveolar/Arterial O2 Gradient 87.6 mmHg; Base Excess ABG -3.4 mEq/l (+/-2.0); Carboxyhemoglobin 0.5 % THb (0-2.0); Fractional Inspired Oxygen 30 %; HCO3 ABG 23.3 mEq/l (22.0-26.0); Methemoglobin ABG 0.3 %THb (0-1.5); Oxygen Content ABG 14.3 %vol (16.0-22.0); Oxygen Saturation ABG 91.4 % (95.0-100.0); PCO2 ABG 49.5 mmHg (35.0-45.0); PO2 ABG 68.1 mmHg (80.0-100.0); PO2 FiO2 Ratio Arterial Blood 2.27 %; Reduced Hemoglobin 7.2 %THb (0-5.0)
[2024-06-30 05:32] LABS: Arterial Blood Gas PEEP 5 cmH2O; Arterial Blood Gas Tidal Volume 320 ml; Arterial Blood Gas Vent Mode CMV; Arterial Blood Gas Ventilator rate 20 /MIN; Device VENTILATOR; Modified Allen's Test Unable to perform; Site Drawn RIGHT RADIAL; pH ABG 7.291 (7.350-7.450)
[2024-06-30] MEDS: ATORVASTATIN 40 MG TABLET PO (08:25)
[2024-06-30] MEDS: POTASSIUM CHLORIDE 20 MEQ PACKET (FOR LIQUID) 40 MEQ FEED TUBE (08:25)
[2024-06-30] MEDS: methylPREDNISolone SOD SUCC 125 MG VIAL IV PUSH (08:25)
[2024-06-30] MEDS: ASPIRIN 325 MG TABLET FEED TUBE (08:25)
[2024-06-30] MEDS: ENOXAPARIN 40 MG/0.4 ML SYRINGE SUB-Q (08:25)
[2024-06-30] MEDS: PANTOPRAZOLE SODIUM IV 40 MG VIAL IV PUSH (08:25)
[2024-06-30] MEDS: MINERAL OIL/WHITE PETROLATUM OINTMENT 1 APPLIC EACH EYE ×2 (08:26→20:42)
[2024-06-30] MEDS: ALBUTEROL SULFATE NEB 2.5 MG/3 ML INH 15 MG INHALATION (08:38)
--- NOTE | 2024-06-30 08:51 | WPDINTPN ---
Progress Note: A&P Assessment and Plan (1) Acute on chronic respiratory failure with hypoxia and hypercapnia: Code(s): J96.21 - Acute and chronic respiratory failure with hypoxia; J96.22 - Acute and chronic respiratory failure with hypercapnia Status: Acute Assessment and Plan: Acute on chronic respiratory failure secondary to COPD exacerbation.? Community-acquired pneumonia although chest x-ray is not suggestive and patient is low procalcitonin level. WBC elevated MRSA screen negative 06/28: Blood cultures negative x2 -Continue Rocephin and doxycycline (06/28) -DC vancomycin (06/29) -Continue bronchodilators, -06/30: patient not moving any air, given dose of Solu-Medrol 125 mg IV x1 and will continue Solu-Medrol 40 mg IV q.6 hours -06/30: albuterol 15 mg x 1 neb given -ABG and chest x-ray reviewed, increased tidal volume (2) Acute exacerbation of chronic obstructive pulmonary disease: Code(s): J44.1 - Chronic obstructive pulmonary disease with (acute) exacerbation Status: Acute Assessment and Plan: Continue mechanical ventilation, bronchodilators, antibiotics, steroids (3) Elevated troponin: Code(s): R77.8 - Other specified abnormalities of plasma proteins Status: Acute Assessment and Plan: Patient has elevated troponin likely secondary to demand ischemia from acute respiratory failure. EKG reviewed and does not show any ST elevation. Patient does not have any documented history of coronary disease. Troponins trending down Continue aspirin 81 mg p.o. daily and statin Appreciate cardiology evaluation and recommendation Hold beta-mika due to sinus bradycardia while on sedation 06/29/2024: Echocardiogram Summary 1. The left ventricle is normal in size with thickened left ventricular rodríguez. The overall left ventricular systolic function appears preserved. Cannot rule out very mild hypokinesis of the apical wall. 2. The right ventricle is normal in size and systolic function. 3. The there is a small amount of pericardial effusion with no echocardiographic evidence of cardiac tamponade. (4) Hypothyroidism: Code(s): E03.9 - Hypothyroidism, unspecified Status: Acute Assessment and Plan: Continue levothyroxine. -TSH level - within normal limits (5) Electrolyte abnormality: Code(s): E87.8 - Other disorders of electrolyte and fluid balance, not elsewhere classified Status: Acute Assessment and Plan: Potassium has normalized after replacement Plan DVT prophylaxis -Lovenox Stress ulcer prophylaxis -PPI Nutrition -tolerating tube feeds Code Status - Full Code Total Critical Care Time - 33 minutes Due to a high probability of clinically significant, life threatening deterioration, the patient required my highest level of preparedness to intervene emergently and I personally spent this critical care time directly and personally managing the patient. This critical care time included obtaining a history; examining the patient; pulse oximetry; ordering and review of studies; arranging urgent treatment with development of a management plan; evaluation of patient's response to treatment; frequent reassessment; and discussions with other providers. It was exclusive of separately billable procedures and treating other patients and teaching time. Please see Assessment and Plan section and the rest of the note for further information on patient assessment and treatment This dictation may have been done utilizing a voice recognition system. Attempts have been made to correct errors. However, there may be uncorrected grammatical, spelling, and recognitions errors present. Subjective Date/time seen: 06/30/24 08:51 Interval history: Reason for consult: COPD exacerbation, acute hypercapnic respiratory failure, NSTEMI with elevated troponin 06/30/2024: Patient seen and examined in the ICU, remains intubated on CMV mode of ventilation, peep of 5, 30% FiO2 intubated sedated with propofol infusion. Patient opens her eyes to name, follows commands and lower extremities. Is afebrile, adequate urine output. Elevated WBC count this morning, increasing creatinine. Troponin has come down to 0.916. Review of Systems Review of Systems: ROS unobtainable: Yes unobtainable due to endotracheal tube, unobtainable due to medical condition and unobtainable due to mental status Exam Narrative: General: Pt is sedated, intubated and on mechanical ventilation Lungs/Chest: Trachea central, decreased air movement and breath sounds bilaterally, No crackles or wheezing. Cardiac: RRR. Normal S1 S2. No murmurs Circulation: Pedal pulses are intact and symmetrical. Abdomen: Decreased bowel sounds. Obese. Soft. NT. ND. Extremities: No clubbing, cyanosis or edema. Warm : Godd[place] in place Neurologic: Intubated and sedated, opens her eyes to name and follows simple commands and lower extremities. PERRL Objective Data Vital Signs Vital Signs: Vital Signs - 24 hr 06/29/24 10:06/29/24 10:00 06/29/24 10:06 Temperature Pulse Rate 85 85 85 Respiratory Rate 24 H 26 H Blood Pressure 175/78 H Pulse Oximetry 100 Oxygen Delivery Fraction of Inspired Oxygen 06/29/24 10:51 06/29/24 12:00 06/29/24 12:00 Temperature Pulse Rate 78 75 75 Respiratory Rate 22 H Blood Pressure Pulse Oximetry 97 Oxygen Delivery Mechanical Ventilation Fraction of Inspired Oxygen 40 06/29/24 12:00 06/29/24 12:00 06/29/24 12:00 Temperature 98.0 F Pulse Rate 70 Respiratory Rate 22 H Blood Pressure 100/60 Pulse Oximetry 98 98 Oxygen Delivery Mechanical Ventilation Fraction of Inspired Oxygen 40 40 06/29/24 13:08 06/29/24 13:08 06/29/24 13:17 Temperature Pulse Rate 74 74 73 Respiratory Rate 20 20 Blood Pressure Pulse Oximetry 97 Oxygen Delivery Mechanical Ventilation Fraction of Inspired Oxygen 40 06/29/24 13:17 06/29/24 13:26 06/29/24 14:00 Temperature Pulse Rate 73 74 72 Respiratory Rate 20 20 Blood Pressure Pulse Oximetry Oxygen Delivery Fraction of Inspired Oxygen 06/29/24 14:00 06/29/24 14:00 06/29/24 16:00 Temperature Pulse Rate 72 72 76 Respiratory Rate 22 H 22 H 20 Blood Pressure 105/62 Pulse Oximetry 98 Oxygen Delivery Fraction of Inspired Oxygen 06/29/24 16:00 06/29/24 16:00 06/29/24 16:00 Temperature Pulse Rate 75 Respiratory Rate Blood Pressure Pulse Oximetry 98 Oxygen Delivery Mechanical Ventilation Fraction of Inspired Oxygen 40 40 06/29/24 16:00 06/29/24 16:25 06/29/24 18:00 Temperature 97.9 F Pulse Rate 75 82 80 Respiratory Rate 20 Blood Pressure 114/68 Pulse Oximetry 98 99 Oxygen Delivery Mechanical Ventilation Fraction of Inspired Oxygen 40 06/29/24 18:00 06/29/24 18:00 06/29/24 18:31 Temperature Pulse Rate 80 80 79 Respiratory Rate 20 20 14 Blood Pressure 129/65 Pulse Oximetry 98 Oxygen Delivery Fraction of Inspired Oxygen 06/29/24 18:31 06/29/24 20:00 06/29/24 20:00 Temperature Pulse Rate 79 80 80 Respiratory Rate 14 23 H Blood Pressure Pulse Oximetry 98 Oxygen Delivery Mechanical Ventilation Fraction of Inspired Oxygen 40 06/29/24 20:00 06/29/24 20:00 06/29/24 20:00 Temperature Pulse Rate 81 Respiratory Rate Blood Pressure Pulse Oximetry 98 Oxygen Delivery Mechanical Ventilation Fraction of Inspired Oxygen 35 35 06/29/24 20:00 06/29/24 20:09 06/29/24 20:10 Temperature 98.1 F Pulse Rate 81 81 82 Respiratory Rate 20 20 20 Blood Pressure 127/67 Pulse Oximetry 98 Oxygen Delivery Fraction of Inspired Oxygen 06/29/24 22:00 06/29/24 22:00 06/29/24 22:00 Temperature Pulse Rate 72 73 73 Respiratory Rate 20 20 Blood Pressure 121/68 Pulse Oximetry 100 Oxygen Delivery Fraction of Inspired Oxygen 06/29/24 23:10 06/30/24 00:00 06/30/24 00:00 Temperature Pulse Rate 72 Respiratory Rate Blood Pressure Pulse Oximetry 99 100 Oxygen Delivery Mechanical Ventilation Mechanical Ventilation Fraction of Inspired Oxygen 35 30 30 06/30/24 00:00 06/30/24 00:00 06/30/24 00:05 Temperature 98.1 F Pulse Rate 76 76 76 Respiratory Rate 20 24 H Blood Pressure 120/67 Pulse Oximetry 100 Oxygen Delivery Fraction of Inspired Oxygen 06/30/24 00:35 06/30/24 00:35 06/30/24 02:00 Temperature Pulse Rate 75 76 78 Respiratory Rate 21 H 21 H 20 Blood Pressure Pulse Oximetry Oxygen Delivery Fraction of Inspired Oxygen 06/30/24 02:00 06/30/24 02:00 06/30/24 02:05 Temperature Pulse Rate 78 78 77 Respiratory Rate 20 Blood Pressure 135/69 Pulse Oximetry 94 95 Oxygen Delivery Mechanical Ventilation Fraction of Inspired Oxygen 30 06/30/24 02:07 06/30/24 02:13 06/30/24 04:00 Temperature Pulse Rate 77 77 71 Respiratory Rate 23 H 21 H 20 Blood Pressure Pulse Oximetry Oxygen Delivery Fraction of Inspired Oxygen 06/30/24 04:00 06/30/24 04:00 06/30/24 04:00 Temperature Pulse Rate 71 Respiratory Rate Blood Pressure Pulse Oximetry 97 Oxygen Delivery Mechanical Ventilation Fraction of Inspired Oxygen 30 30 06/30/24 04:00 06/30/24 05:01 06/30/24 05:30 Temperature 98.0 F Pulse Rate 71 73 76 Respiratory Rate 20 25 H Blood Pressure 129/63 Pulse Oximetry 97 94 Oxygen Delivery Mechanical Ventilation Fraction of Inspired Oxygen 30 06/30/24 05:30 06/30/24 06:00 06/30/24 06:00 Temperature Pulse Rate 76 73 73 Respiratory Rate 25 H 24 H Blood Pressure Pulse Oximetry Oxygen Delivery Fraction of Inspired Oxygen 06/30/24 06:00 06/30/24 07:58 06/30/24 08:00 Temperature Pulse Rate 73 79 79 Respiratory Rate 24 H 23 H Blood Pressure 136/71 Pulse Oximetry 97 95 Oxygen Delivery Mechanical Ventilation Fraction of Inspired Oxygen 30 06/30/24 08:00 06/30/24 08:00 06/30/24 08:38 Temperature 98.5 F Pulse Rate 81 80 81 Respiratory Rate 16 20 Blood Pressure 129/70 Pulse Oximetry 95 Oxygen Delivery Fraction of Inspired Oxygen Intake/Output Intake/Output: Intake & Output 06/27/24 06/28/24 06/29/24 06/30/24 23:59 23:59 23:59 23:59 Intake Total 114.3 3355.5 675.4 Output Total 1100 700 Balance 114.3 2255.5 -24.6 Meds/Results Medications: Active Medications Generic Name Dose Route Start Last Admin Trade Name Freq PRN Reason Stop Dose Admin Albuterol/Ipratropium 3 ml 06/29/24 02:00 06/30/24 07:57 Ipratropium 0.5 Mg/Albuterol Sulfate 2.5 Mg Ampul.Neb 3 Ml INHALATION 3 ml Q6HRT BARBARA Administration Aspirin 325 mg 06/29/24 08:05 06/30/24 08:25 Aspirin 325 Mg Tablet FEED TUBE 325 mg DAILY@0800 BARBARA Administration Atorvastatin Calcium 40 mg 06/29/24 09:00 06/30/24 08:25 Atorvastatin 40 Mg Tablet PO 40 mg DAILY BARBARA Administration Dextrose 12.5 gm 06/29/24 08:08 Dextrose 50% 25 Gm/50 Ml Syringe IV PUSH PRN PRN Hypoglycemia Protocol Enoxaparin Sodium 40 mg 06/29/24 09:00 06/30/24 08:25 Enoxaparin 40 Mg/0.4 Ml Syringe SUB-Q 40 mg DAILY BARBARA Administration Glucagon 1 mg 06/29/24 08:08 Glucagon For Inj 1 Mg Vial IM PRN PRN Hypoglycemia Protocol Glucose 15 gm 06/29/24 08:08 Glucose Oral Gel 15 Gm Of Glucse In 37.5 Gm Tube PO PRN PRN Hypoglycemia Protocol Ceftriaxone Sodium 2 gm in 100 mls @ 200 mls/hr 06/28/24 20:00 06/29/24 20:56 Rocephin 2 Gm/Ns 100 Ml IVPB Infused Q24H BARBARA Infusion Propofol 100 mls @ 15.552 mls/hr 06/29/24 04:30 06/30/24 06:00 Diprivan IV CONT 40 mcg/kg/min .Q6H26M BARBARA 15.55 mls/hr Titration Protocol 40 MCG/KG/MIN Doxycycline Hyclate 100 mg in 100 mls @ 100 mls/hr 06/28/24 23:00 06/29/24 22:38 Vibramycin 100 Mg/Ns 100 Ml IVPB 100 mls/hr Q12H BARBARA Administration Dextrose 1,000 mls @ 100 mls/hr 06/29/24 08:08 Dextrose 5% 1,000 Ml IVPB PRN PRN Hypoglycemia Protocol Insulin Aspart 3 - 6 units 06/29/24 12:00 06/30/24 05:32 Insulin Aspart (*Bkc) 100 Units/Ml SUB-Q Not Given Q6HR [facility] Protocol Levothyroxine Sodium 50 mcg 06/30/24 06:30 06/30/24 05:12 Levothyroxine Sodium 50 Mcg Tablet FEED TUBE 50 mcg DAILY@0630 BARBARA Administration Methylprednisolone Sodium Succinate 40 mg 06/30/24 12:00 Methylprednisolone Sod Succ 40 Mg Vial IV PUSH Q6HR BARBARA Multi-Ingred Cream/Lotion/Oil/Oint 1 applic 06/29/24 09:00 06/30/24 08:26 Mineral Oil/White Petrolatum Ointment EACH EYE 1 applic Q12HR BARBARA Administration Pantoprazole Sodium 40 mg 06/29/24 09:00 06/30/24 08:25 Pantoprazole Sodium Iv 40 Mg Vial IV PUSH 40 mg DAILY BARBARA Administration Potassium Chloride 40 meq 06/29/24 09:00 06/30/24 08:25 Potassium Chloride 20 Meq Packet (For Liquid) FEED TUBE 40 meq DAILY BARBARA Administration Sodium Chloride 10 ml 06/29/24 14:00 06/30/24 05:12 Central Line Flush IV PUSH 10 ml Q8HR BARBARA Administration Sodium Chloride 10 ml 06/29/24 12:40 Central Line Flush IV PUSH PRN PRN with TPN bag changes Sodium Chloride 20 ml 06/29/24 12:40 Central Line Flush IV PUSH PRN PRN after blood draws Radiology Results: ITS Impressions Abdomen X-Ray 06/28/24 20:03 IMPRESSION: Nasogastric tube in good position and ready for immediate use. Chest X-Ray 06/30/24 06:50 Impression: COPD and minimal left pleural effusion. Numerous stable linear right basilar scarring. Support tubes, as above. Labs Labs: Laboratory Results - last 24 hr 06/29/24 06/29/24 06/29/24 08:29 08:30 11:25 WBC RBC Hgb Hct MCV MCH MCHC RDW Plt Count MPV Puncture Site ABG pH ABG pCO2 ABG pO2 ABG PO2/FiO2 Ratio ABG HCO3 ABG O2 Saturation ABG O2 Content ABG Base Excess A-a Gradient Oxyhemoglobin Carboxyhemoglobin Methemoglobin Reduced Hemoglobin Total Hemoglobin O2 Delivery Device O2 Liters/Min Minute Volume Vent Rate Vent Mode FiO2 Tidal Volume PEEP Peak Inspir Pressure Pressure Support Sodium Potassium Chloride Carbon Dioxide Anion Gap BUN Creatinine Estim Creat Clear Calc Estimated GFR Glucose POC Capillary Glucose 135 H Calcium Magnesium Total Bilirubin AST ALT Alkaline Phosphatase Troponin I 0.916 H* Total Protein Albumin TSH (Reflex) 1.400 06/29/24 06/30/24 06/30/24 17:26 00:04 05:08 WBC 18.1 H RBC 3.40 L Hgb 9.7 L Hct 31.4 L MCV 92.4 MCH 28.5 MCHC 30.9 L RDW 17.2 H Plt Count 314 MPV 10.7 H Puncture Site ABG pH ABG pCO2 ABG pO2 ABG PO2/FiO2 Ratio ABG HCO3 ABG O2 Saturation ABG O2 Content ABG Base Excess A-a Gradient Oxyhemoglobin Carboxyhemoglobin Methemoglobin Reduced Hemoglobin Total Hemoglobin O2 Delivery Device O2 Liters/Min Minute Volume Vent Rate Vent Mode FiO2 Tidal Volume PEEP Peak Inspir Pressure Pressure Support Sodium 144 Potassium 4.3 Chloride 112 H Carbon Dioxide 24 Anion Gap 8 BUN 29 H D Creatinine 1.21 H Estim Creat Clear Calc 27 Estimated GFR 52 L Glucose 134 H POC Capillary Glucose 137 H 159 H Calcium 8.3 L Magnesium 2.2 Total Bilirubin 0.3 AST 24 ALT 23 Alkaline Phosphatase 98 Troponin I Total Protein 6.0 L Albumin 3.4 L TSH (Reflex) 06/30/24 05:18 WBC RBC Hgb Hct MCV MCH MCHC RDW Plt Count MPV Puncture Site Right radial ABG pH 7.291 L* ABG pCO2 49.5 H ABG pO2 68.1 L ABG PO2/FiO2 Ratio 2.27 ABG HCO3 23.3 ABG O2 Saturation 91.4 L ABG O2 Content 14.3 L ABG Base Excess -3.4 A-a Gradient 87.6 Oxyhemoglobin 92.0 Carboxyhemoglobin 0.5 Methemoglobin 0.3 Reduced Hemoglobin 7.2 H Total Hemoglobin 11.0 L O2 Delivery Device Ventilator O2 Liters/Min Not Reportable Minute Volume Not Reportable Vent Rate 20 Vent Mode Cmv FiO2 30 Tidal Volume 320 PEEP 5 Peak Inspir Pressure Not Reportable Pressure Support Not Reportable Sodium Potassium Chloride Carbon Dioxide Anion Gap BUN Creatinine Estim Creat Clear Calc Estimated GFR Glucose POC Capillary Glucose Calcium Magnesium Total Bilirubin AST ALT Alkaline Phosphatase Troponin I Total Protein Albumin TSH (Reflex) Quality VTE Prophylaxis VTE prophylaxis: pharmacologic ordered
--- NOTE | 2024-06-30 10:41 | PCNFU ---
Nutrition Follow-Up Complete: Inadequate Oral Intake as related to mechanical vent as evidenced by NPO. Goal: Meet estimated nutritional needs Patient will continue current goal. Pt current nutrition is Vital AF 1.2 at 40 ml/hr. Last recorded weight is 65.7 kg, up from 64.3 kg on admit. Bowel Motility: No BM reported. Labs Reviewed:Glu 134, BUN 29, GFR 52, Cr 1.21, Alb 3.4 Meds Noted:Propofol 40 bbfb=678 kcal, Lovenox, Protonix,Novolog Skin: WNL Additional Notes: Patient remains on mechanical vent. Tube feedings are being tolerated of Vital AF 1.2 at 40 ml/hr. Total Nutrition: 1466 kcal/66 gm protein/714 ml water. Would consider Prosource once daily if Propofol remains at 40 mcgs. Will monitor weight, labs, skin, diet orders, meds, tube feedings tolerance every Saturday and Saturday
[2024-06-30] MEDS: DOXYCYCLINE 100 MG/NS 100 ML 100 MG/100 ML BAG IVPB ×2 (10:51→22:28)
[2024-06-30 11:33] LABS: Glucose Point of Care 170 mg/dl (65-105)
[2024-06-30] MEDS: methylPREDNISolone SOD SUCC 40 MG VIAL IV PUSH ×2 (11:50→17:22)
--- NOTE | 2024-06-30 12:23 | PM.PNCARD ---
Progress Note: A&P Assessment and Plan (1) Elevated troponin: Code(s): R77.8 - Other specified abnormalities of plasma proteins Status: Acute Plan 1. NSTEMI. Troponins peaked at 1.07. 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 Echocardiogram with preserved LVEF, cannot rule out very mild hypokinesis of the apical wall. 2. Coronary artery disease s/p MATTY x 2 to the RCA in 2019 for an acute coronary syndrome 3. Acute on chronic hypoxic and hypercarbic respiratory failure due to COPD exacerbation, requiring mechanical ventilation 4. COPD exacerbation, known severe COPD PLAN: -Continue ASA, statin. -Will re-evaluate need for ischemic evaluation once extubated and recovered from her respiratory failure. Probably a stress test as outpatient. Has not followed up with our office since 2019 (was seeing Dr. Morales). Recommendations and plan discussed with ICU Physician. Subjective Date/time seen: 06/30/24 12:23 Interval history: Reason for visit: Elevated troponins HPI: 78-year-old woman with chronic hypoxic respiratory failure on home O2 4 L at night and hyperlipidemia presented with acute respiratory distress. She is currently intubated and history obtained through chart review. It appeared that she had worsening shortness of breath for 15 minutes prior to EMS arrival which mildly improved with CPAP in 10 mg of Decadron with 2 g of magnesium. However she quickly further decompensated requiring intubation with ABG demonstrating hypoxic hypercarbic acidosis. As part of her workup troponins were drawn which were elevated. Date of service 06/30: Remains intubated. Review of Systems Review of Systems: ROS unobtainable: Yes unobtainable due to endotracheal tube Exam Const: Other: On mechanical ventilation HENMT: Other: OETT in place Resp: Other: On mechanical ventilation Cardio: Rate: regular rate Rhythm: regular rhythm Heart sounds: no murmurs Skin: General skin exam: normal color Neuro: Other: Sedated Psych: Other: Sedated Objective Data Vital Signs Vital Signs: Vital Signs - 24 hr 06/29/24 13:08 06/29/24 13:08 06/29/24 13:17 Temperature Pulse Rate 74 74 73 Respiratory Rate 20 20 Blood Pressure Pulse Oximetry 97 Oxygen Delivery Mechanical Ventilation Fraction of Inspired Oxygen 40 06/29/24 13:17 06/29/24 13:26 06/29/24 14:00 Temperature Pulse Rate 73 74 72 Respiratory Rate 20 20 Blood Pressure Pulse Oximetry Oxygen Delivery Fraction of Inspired Oxygen 06/29/24 14:00 06/29/24 14:00 06/29/24 16:00 Temperature Pulse Rate 72 72 76 Respiratory Rate 22 H 22 H 20 Blood Pressure 105/62 Pulse Oximetry 98 Oxygen Delivery Fraction of Inspired Oxygen 06/29/24 16:00 06/29/24 16:00 06/29/24 16:00 Temperature Pulse Rate 75 Respiratory Rate Blood Pressure Pulse Oximetry 98 Oxygen Delivery Mechanical Ventilation Fraction of Inspired Oxygen 40 40 06/29/24 16:00 06/29/24 16:25 06/29/24 18:00 Temperature 36.6 C Pulse Rate 75 82 80 Respiratory Rate 20 Blood Pressure 114/68 Pulse Oximetry 98 99 Oxygen Delivery Mechanical Ventilation Fraction of Inspired Oxygen 40 06/29/24 18:00 06/29/24 18:00 06/29/24 18:31 Temperature Pulse Rate 80 80 79 Respiratory Rate 20 20 14 Blood Pressure 129/65 Pulse Oximetry 98 Oxygen Delivery Fraction of Inspired Oxygen 06/29/24 18:31 06/29/24 20:00 06/29/24 20:00 Temperature Pulse Rate 79 80 80 Respiratory Rate 14 23 H Blood Pressure Pulse Oximetry 98 Oxygen Delivery Mechanical Ventilation Fraction of Inspired Oxygen 40 06/29/24 20:00 06/29/24 20:00 06/29/24 20:00 Temperature Pulse Rate 81 Respiratory Rate Blood Pressure Pulse Oximetry 98 Oxygen Delivery Mechanical Ventilation Fraction of Inspired Oxygen 35 35 06/29/24 20:00 06/29/24 20:09 06/29/24 20:10 Temperature 36.7 C Pulse Rate 81 81 82 Respiratory Rate 20 20 20 Blood Pressure 127/67 Pulse Oximetry 98 Oxygen Delivery Fraction of Inspired Oxygen 06/29/24 22:00 06/29/24 22:00 06/29/24 22:00 Temperature Pulse Rate 72 73 73 Respiratory Rate 20 20 Blood Pressure 121/68 Pulse Oximetry 100 Oxygen Delivery Fraction of Inspired Oxygen 06/29/24 23:10 06/30/24 00:00 06/30/24 00:00 Temperature Pulse Rate 72 Respiratory Rate Blood Pressure Pulse Oximetry 99 100 Oxygen Delivery Mechanical Ventilation Mechanical Ventilation Fraction of Inspired Oxygen 35 30 30 06/30/24 00:00 06/30/24 00:00 06/30/24 00:05 Temperature 36.7 C Pulse Rate 76 76 76 Respiratory Rate 20 24 H Blood Pressure 120/67 Pulse Oximetry 100 Oxygen Delivery Fraction of Inspired Oxygen 06/30/24 00:35 06/30/24 00:35 06/30/24 02:00 Temperature Pulse Rate 75 76 78 Respiratory Rate 21 H 21 H 20 Blood Pressure Pulse Oximetry Oxygen Delivery Fraction of Inspired Oxygen 06/30/24 02:00 06/30/24 02:00 06/30/24 02:05 Temperature Pulse Rate 78 78 77 Respiratory Rate 20 Blood Pressure 135/69 Pulse Oximetry 94 95 Oxygen Delivery Mechanical Ventilation Fraction of Inspired Oxygen 30 06/30/24 02:07 06/30/24 02:13 06/30/24 04:00 Temperature Pulse Rate 77 77 71 Respiratory Rate 23 H 21 H 20 Blood Pressure Pulse Oximetry Oxygen Delivery Fraction of Inspired Oxygen 06/30/24 04:00 06/30/24 04:00 06/30/24 04:00 Temperature Pulse Rate 71 Respiratory Rate Blood Pressure Pulse Oximetry 97 Oxygen Delivery Mechanical Ventilation Fraction of Inspired Oxygen 30 30 06/30/24 04:00 06/30/24 05:01 06/30/24 05:30 Temperature 36.7 C Pulse Rate 71 73 76 Respiratory Rate 20 25 H Blood Pressure 129/63 Pulse Oximetry 97 94 Oxygen Delivery Mechanical Ventilation Fraction of Inspired Oxygen 30 06/30/24 05:30 06/30/24 06:00 06/30/24 06:00 Temperature Pulse Rate 76 73 73 Respiratory Rate 25 H 24 H Blood Pressure Pulse Oximetry Oxygen Delivery Fraction of Inspired Oxygen 06/30/24 06:00 06/30/24 07:58 06/30/24 08:00 Temperature Pulse Rate 73 79 79 Respiratory Rate 24 H 23 H Blood Pressure 136/71 Pulse Oximetry 97 95 Oxygen Delivery Mechanical Ventilation Fraction of Inspired Oxygen 30 06/30/24 08:00 06/30/24 08:00 06/30/24 08:00 Temperature 36.9 C Pulse Rate 81 80 80 Respiratory Rate 16 20 Blood Pressure 129/70 Pulse Oximetry 95 Oxygen Delivery Fraction of Inspired Oxygen 06/30/24 08:00 06/30/24 08:00 06/30/24 08:38 Temperature Pulse Rate 81 Respiratory Rate 20 Blood Pressure Pulse Oximetry Oxygen Delivery Mechanical Ventilation Fraction of Inspired Oxygen 30 30 06/30/24 10:00 06/30/24 10:00 06/30/24 10:00 Temperature Pulse Rate 74 74 74 Respiratory Rate 20 20 Blood Pressure 100/47 L Pulse Oximetry 100 Oxygen Delivery Fraction of Inspired Oxygen 06/30/24 10:05 06/30/24 10:28 06/30/24 11:32 Temperature Pulse Rate 73 77 87 Respiratory Rate 20 20 Blood Pressure Pulse Oximetry 97 Oxygen Delivery Mechanical Ventilation Fraction of Inspired Oxygen 30 06/30/24 11:42 06/30/24 11:47 06/30/24 11:47 Temperature Pulse Rate 90 88 88 Respiratory Rate 24 H 20 20 Blood Pressure Pulse Oximetry Oxygen Delivery Fraction of Inspired Oxygen 06/30/24 12:00 06/30/24 12:00 06/30/24 12:00 Temperature 36.6 C Pulse Rate 87 87 Respiratory Rate 20 20 Blood Pressure 138/75 Pulse Oximetry 96 Oxygen Delivery Mechanical Ventilation Fraction of Inspired Oxygen 30 06/30/24 12:00 06/30/24 12:00 Temperature Pulse Rate 88 Respiratory Rate Blood Pressure Pulse Oximetry Oxygen Delivery Fraction of Inspired Oxygen 30 Intake/Output Intake/Output: Intake & Output 06/27/24 06/28/24 06/29/24 06/30/24 23:59 23:59 23:59 23:59 Intake Total 114.3 3455.5 766.4 Output Total 1100 700 Balance 114.3 2355.5 66.4 Meds/Results Medications: Active Medications Generic Name Dose Route Start Last Admin Trade Name Freq PRN Reason Stop Dose Admin Albuterol/Ipratropium 3 ml 06/29/24 02:00 06/30/24 07:57 Ipratropium 0.5 Mg/Albuterol Sulfate 2.5 Mg Ampul.Neb 3 Ml INHALATION 3 ml Q6HRT BARBARA Administration Aspirin 81 mg 07/01/24 08:00 Aspirin 81 Mg Chewable Tablet PO DAILY@0800 [facility] Atorvastatin Calcium 40 mg 06/29/24 09:00 06/30/24 08:25 Atorvastatin 40 Mg Tablet PO 40 mg DAILY BARBARA Administration Dextrose 12.5 gm 06/29/24 08:08 Dextrose 50% 25 Gm/50 Ml Syringe IV PUSH PRN PRN Hypoglycemia Protocol Enoxaparin Sodium 40 mg 06/29/24 09:00 06/30/24 08:25 Enoxaparin 40 Mg/0.4 Ml Syringe SUB-Q 40 mg DAILY BARBARA Administration Glucagon 1 mg 06/29/24 08:08 Glucagon For Inj 1 Mg Vial IM PRN PRN Hypoglycemia Protocol Glucose 15 gm 06/29/24 08:08 Glucose Oral Gel 15 Gm Of Glucse In 37.5 Gm Tube PO PRN PRN Hypoglycemia Protocol Ceftriaxone Sodium 2 gm in 100 mls @ 200 mls/hr 06/28/24 20:00 06/29/24 20:56 Rocephin 2 Gm/Ns 100 Ml IVPB Infused Q24H BARBARA Infusion Propofol 100 mls @ 15.552 mls/hr 06/29/24 04:30 06/30/24 12:00 Diprivan IV CONT 40 mcg/kg/min .Q6H26M BARBARA 15.55 mls/hr Titration Protocol 40 MCG/KG/MIN Doxycycline Hyclate 100 mg in 100 mls @ 100 mls/hr 06/28/24 23:00 06/30/24 10:51 Vibramycin 100 Mg/Ns 100 Ml IVPB 100 mls/hr Q12H BARBARA Administration Dextrose 1,000 mls @ 100 mls/hr 06/29/24 08:08 Dextrose 5% 1,000 Ml IVPB PRN PRN Hypoglycemia Protocol Insulin Aspart 3 - 6 units 06/29/24 12:00 06/30/24 11:43 Insulin Aspart (*Bkc) 100 Units/Ml SUB-Q Not Given Q6HR BARBARA Protocol Levothyroxine Sodium 50 mcg 06/30/24 06:30 06/30/24 05:12 Levothyroxine Sodium 50 Mcg Tablet FEED TUBE 50 mcg DAILY@0630 BARBARA Administration Methylprednisolone Sodium Succinate 40 mg 06/30/24 12:00 06/30/24 11:50 Methylprednisolone Sod Succ 40 Mg Vial IV PUSH 40 mg Q6HR BARBARA Administration Multi-Ingred Cream/Lotion/Oil/Oint 1 applic 06/29/24 09:00 06/30/24 08:26 Mineral Oil/White Petrolatum Ointment EACH EYE 1 applic Q12HR BARBARA Administration Pantoprazole Sodium 40 mg 06/29/24 09:00 06/30/24 08:25 Pantoprazole Sodium Iv 40 Mg Vial IV PUSH 40 mg DAILY BARBARA Administration Potassium Chloride 40 meq 06/29/24 09:00 06/30/24 08:25 Potassium Chloride 20 Meq Packet (For Liquid) FEED TUBE 40 meq DAILY BARBARA Administration Sodium Chloride 10 ml 06/29/24 14:00 06/30/24 11:50 Central Line Flush IV PUSH 10 ml Q8HR BARBARA Administration Sodium Chloride 10 ml 06/29/24 12:40 Central Line Flush IV PUSH PRN PRN with TPN bag changes Sodium Chloride 20 ml 06/29/24 12:40 Central Line Flush IV PUSH PRN PRN after blood draws Radiology Results: ITS Impressions Abdomen X-Ray 06/28/24 20:03 IMPRESSION: Nasogastric tube in good position and ready for immediate use. Chest X-Ray 06/30/24 06:50 Impression: COPD and minimal left pleural effusion. Numerous stable linear right basilar scarring. Support tubes, as above. Labs Labs: Laboratory Results - last 24 hr 06/29/24 06/30/24 06/30/24 17:26 00:04 05:08 WBC 18.1 H RBC 3.40 L Hgb 9.7 L Hct 31.4 L MCV 92.4 MCH 28.5 MCHC 30.9 L RDW 17.2 H Plt Count 314 MPV 10.7 H Puncture Site ABG pH ABG pCO2 ABG pO2 ABG PO2/FiO2 Ratio ABG HCO3 ABG O2 Saturation ABG O2 Content ABG Base Excess A-a Gradient Oxyhemoglobin Carboxyhemoglobin Methemoglobin Reduced Hemoglobin Total Hemoglobin O2 Delivery Device O2 Liters/Min Minute Volume Vent Rate Vent Mode FiO2 Tidal Volume PEEP Peak Inspir Pressure Pressure Support Sodium 144 Potassium 4.3 Chloride 112 H Carbon Dioxide 24 Anion Gap 8 BUN 29 H D Creatinine 1.21 H Estim Creat Clear Calc 27 Estimated GFR 52 L Glucose 134 H POC Capillary Glucose 137 H 159 H Calcium 8.3 L Magnesium 2.2 Total Bilirubin 0.3 AST 24 ALT 23 Alkaline Phosphatase 98 Total Protein 6.0 L Albumin 3.4 L 06/30/24 06/30/24 05:18 11:30 WBC RBC Hgb Hct MCV MCH MCHC RDW Plt Count MPV Puncture Site Right radial ABG pH 7.291 L* ABG pCO2 49.5 H ABG pO2 68.1 L ABG PO2/FiO2 Ratio 2.27 ABG HCO3 23.3 ABG O2 Saturation 91.4 L ABG O2 Content 14.3 L ABG Base Excess -3.4 A-a Gradient 87.6 Oxyhemoglobin 92.0 Carboxyhemoglobin 0.5 Methemoglobin 0.3 Reduced Hemoglobin 7.2 H Total Hemoglobin 11.0 L O2 Delivery Device Ventilator O2 Liters/Min Not Reportable Minute Volume Not Reportable Vent Rate 20 Vent Mode Cmv FiO2 30 Tidal Volume 320 PEEP 5 Peak Inspir Pressure Not Reportable Pressure Support Not Reportable Sodium Potassium Chloride Carbon Dioxide Anion Gap BUN Creatinine Estim Creat Clear Calc Estimated GFR Glucose POC Capillary Glucose 170 H Calcium Magnesium Total Bilirubin AST ALT Alkaline Phosphatase Total Protein Albumin
[2024-06-30] MEDS: PROPOFOL IV EMULSION 100 ML 17.5 MG IV CONT ×2 (16:24→22:27)
--- NOTE | 2024-06-30 17:07 | PM.IMPN ---
Progress Note: A&P Assessment and Plan (1) Acute on chronic respiratory failure with hypoxia and hypercapnia: Code(s): J96.21 - Acute and chronic respiratory failure with hypoxia; J96.22 - Acute and chronic respiratory failure with hypercapnia Status: Acute Assessment and Plan: Acute on chronic respiratory failure secondary to COPD exacerbation.? Community-acquired pneumonia although chest x-ray is not suggestive and patient is low procalcitonin level. WBC elevated MRSA screen negative 06/28: Blood cultures negative x2 -Continue Rocephin and doxycycline (06/28) -DC vancomycin (06/29) -Continue bronchodilators, -06/30: patient not moving any air, given dose of Solu-Medrol 125 mg IV x1 and will continue Solu-Medrol 40 mg IV q.6 hours -06/30: albuterol 15 mg x 1 neb given -ABG and chest x-ray reviewed, increased tidal volume (2) Acute exacerbation of chronic obstructive pulmonary disease: Code(s): J44.1 - Chronic obstructive pulmonary disease with (acute) exacerbation Status: Acute Assessment and Plan: Continue mechanical ventilation, bronchodilators, antibiotics, steroids (3) Elevated troponin: Code(s): R77.8 - Other specified abnormalities of plasma proteins Status: Acute Assessment and Plan: Patient has elevated troponin likely secondary to demand ischemia from acute respiratory failure. EKG reviewed and does not show any ST elevation. Patient does not have any documented history of coronary disease. Troponins trending down Continue aspirin 81 mg p.o. daily and statin Appreciate cardiology evaluation and recommendation Hold beta-mika due to sinus bradycardia while on sedation 06/29/2024: Echocardiogram Summary 1. The left ventricle is normal in size with thickened left ventricular rodríguez. The overall left ventricular systolic function appears preserved. Cannot rule out very mild hypokinesis of the apical wall. 2. The right ventricle is normal in size and systolic function. 3. The there is a small amount of pericardial effusion with no echocardiographic evidence of cardiac tamponade. (4) Hypothyroidism: Code(s): E03.9 - Hypothyroidism, unspecified Status: Acute Assessment and Plan: Continue levothyroxine. -TSH level - within normal limits (5) Electrolyte abnormality: Code(s): E87.8 - Other disorders of electrolyte and fluid balance, not elsewhere classified Status: Acute Assessment and Plan: Potassium has normalized after replacement Plan DVT prophylaxis -Lovenox Stress ulcer prophylaxis -PPI Nutrition -tolerating tube feeds Code Status - Full Code Subjective Date/time seen: 06/30/24 17:07 Interval history: patient still intubated Review of Systems Review of Systems: ROS unobtainable: Yes unobtainable due to endotracheal tube, unobtainable due to medical condition and unobtainable due to mental status Exam Narrative: General: Pt is sedated, intubated and on mechanical ventilation Lungs/Chest: Trachea central, decreased air movement and breath sounds bilaterally, No crackles or wheezing. Cardiac: RRR. Normal S1 S2. No murmurs Circulation: Pedal pulses are intact and symmetrical. Abdomen: Decreased bowel sounds. Obese. Soft. NT. ND. Extremities: No clubbing, cyanosis or edema. Warm : Goddard in place Neurologic: Intubated and sedated, opens her eyes to name and follows simple commands and lower extremities. PERRL Const: Other: No acute distress, intubated and sedated head of bed at 30?, well-developed well-nourished HENMT: Other: Head is normocephalic atraumatic, pupils are equal and pinpoint, mucous membranes are dry edentulous in upper and lower jaw, 7.5 ET tube measuring 24 cm at the lip, OG tube in place Neck: Other: No JVD, no lymphadenopathy, trachea midline Resp: Other: Clear to auscultation bilaterally, decreased breath sounds at the bases, mild tachypnea, over breathing the vent Cardio: Other: Regular rate, regular rhythm, 2+ bilateral radial pulses, 2+ left pedal pulse, 1+ right pedal pulse GI: Other: Soft, slightly distended, normoactive bowel sounds, patient does grimace with palpation of the lower abdomen : Other: Goddard catheter in place with a small amount of dark yellow urine present Skin: Other: Overall dry skin, skin of the lower extremities has appearance similar to lichen planus, no petechiae, no inspected bruising Neuro: Other: The patient grimaces to noxious stimuli, when sedation was lower the patient was sitting up and trying to communicate with the nurses to tell them that she was cold, patient seems to have increased tone of bilateral upper extremities but overall normal reflexes, no localizing neurologic deficits noted however exam limited due to patient condition Extrem: Other: Patient has stiffness of the upper extremities bilaterally this is unclear if it is increased tone verses decreased range of motion of the shoulders due to arthritic changes Psych: Other: Anxious and restless when sedation is lower, otherwise cooperative Objective Data Vital Signs Vital Signs: Vital Signs - 24 hr 06/29/24 18:00 06/29/24 18:00 06/29/24 18:00 Temperature Pulse Rate 80 80 80 Respiratory Rate 20 20 Blood Pressure 129/65 Pulse Oximetry 98 Oxygen Delivery Fraction of Inspired Oxygen 06/29/24 18:31 06/29/24 18:31 06/29/24 20:00 Temperature Pulse Rate 79 79 80 Respiratory Rate 14 14 23 H Blood Pressure Pulse Oximetry Oxygen Delivery Fraction of Inspired Oxygen 06/29/24 20:00 06/29/24 20:00 06/29/24 20:00 Temperature Pulse Rate 80 81 Respiratory Rate Blood Pressure Pulse Oximetry 98 98 Oxygen Delivery Mechanical Ventilation Mechanical Ventilation Fraction of Inspired Oxygen 40 35 06/29/24 20:00 06/29/24 20:00 06/29/24 20:09 Temperature 98.1 F Pulse Rate 81 81 Respiratory Rate 20 20 Blood Pressure 127/67 Pulse Oximetry 98 Oxygen Delivery Fraction of Inspired Oxygen 35 06/29/24 20:10 06/29/24 22:00 06/29/24 22:00 Temperature Pulse Rate 82 72 73 Respiratory Rate 20 20 Blood Pressure Pulse Oximetry Oxygen Delivery Fraction of Inspired Oxygen 06/29/24 22:00 06/29/24 23:10 06/30/24 00:00 Temperature Pulse Rate 73 72 Respiratory Rate 20 Blood Pressure 121/68 Pulse Oximetry 100 99 100 Oxygen Delivery Mechanical Ventilation Mechanical Ventilation Fraction of Inspired Oxygen 35 30 06/30/24 00:00 06/30/24 00:00 06/30/24 00:00 Temperature 98.1 F Pulse Rate 76 76 Respiratory Rate 20 Blood Pressure 120/67 Pulse Oximetry 100 Oxygen Delivery Fraction of Inspired Oxygen 30 06/30/24 00:05 06/30/24 00:35 06/30/24 00:35 Temperature Pulse Rate 76 75 76 Respiratory Rate 24 H 21 H 21 H Blood Pressure Pulse Oximetry Oxygen Delivery Fraction of Inspired Oxygen 06/30/24 02:00 06/30/24 02:00 06/30/24 02:00 Temperature Pulse Rate 78 78 78 Respiratory Rate 20 20 Blood Pressure 135/69 Pulse Oximetry 94 Oxygen Delivery Fraction of Inspired Oxygen 06/30/24 02:05 06/30/24 02:07 06/30/24 02:13 Temperature Pulse Rate 77 77 77 Respiratory Rate 23 H 21 H Blood Pressure Pulse Oximetry 95 Oxygen Delivery Mechanical Ventilation Fraction of Inspired Oxygen 30 06/30/24 04:00 06/30/24 04:00 06/30/24 04:00 Temperature Pulse Rate 71 Respiratory Rate 20 Blood Pressure Pulse Oximetry 97 Oxygen Delivery Mechanical Ventilation Fraction of Inspired Oxygen 30 30 06/30/24 04:00 06/30/24 04:00 06/30/24 05:01 Temperature 98.0 F Pulse Rate 71 71 73 Respiratory Rate 20 Blood Pressure 129/63 Pulse Oximetry 97 94 Oxygen Delivery Mechanical Ventilation Fraction of Inspired Oxygen 30 06/30/24 05:30 06/30/24 05:30 06/30/24 06:00 Temperature Pulse Rate 76 76 73 Respiratory Rate 25 H 25 H 24 H Blood Pressure Pulse Oximetry Oxygen Delivery Fraction of Inspired Oxygen 06/30/24 06:00 06/30/24 06:00 06/30/24 07:58 Temperature Pulse Rate 73 73 79 Respiratory Rate 24 H 23 H Blood Pressure 136/71 Pulse Oximetry 97 Oxygen Delivery Fraction of Inspired Oxygen 06/30/24 08:00 06/30/24 08:00 06/30/24 08:00 Temperature 98.5 F Pulse Rate 79 81 80 Respiratory Rate 16 Blood Pressure 129/70 Pulse Oximetry 95 95 Oxygen Delivery Mechanical Ventilation Fraction of Inspired Oxygen 30 06/30/24 08:00 06/30/24 08:00 06/30/24 08:00 Temperature Pulse Rate 80 Respiratory Rate 20 Blood Pressure Pulse Oximetry Oxygen Delivery Mechanical Ventilation Fraction of Inspired Oxygen 30 30 06/30/24 08:10 06/30/24 08:38 06/30/24 10:00 Temperature Pulse Rate 81 81 74 Respiratory Rate 20 20 20 Blood Pressure Pulse Oximetry Oxygen Delivery Fraction of Inspired Oxygen 06/30/24 10:00 06/30/24 10:00 06/30/24 10:05 Temperature Pulse Rate 74 74 73 Respiratory Rate 20 20 Blood Pressure 100/47 L Pulse Oximetry 100 Oxygen Delivery Fraction of Inspired Oxygen 06/30/24 10:28 06/30/24 11:32 06/30/24 11:42 Temperature Pulse Rate 77 87 90 Respiratory Rate 20 24 H Blood Pressure Pulse Oximetry 97 Oxygen Delivery Mechanical Ventilation Fraction of Inspired Oxygen 30 06/30/24 11:47 06/30/24 11:47 06/30/24 12:00 Temperature Pulse Rate 88 88 87 Respiratory Rate 20 20 20 Blood Pressure Pulse Oximetry Oxygen Delivery Fraction of Inspired Oxygen 06/30/24 12:00 06/30/24 12:00 06/30/24 12:00 Temperature 97.9 F Pulse Rate 87 Respiratory Rate 20 Blood Pressure 138/75 Pulse Oximetry 96 Oxygen Delivery Mechanical Ventilation Fraction of Inspired Oxygen 30 30 06/30/24 12:00 06/30/24 12:32 06/30/24 13:11 Temperature Pulse Rate 88 92 89 Respiratory Rate 20 20 Blood Pressure Pulse Oximetry Oxygen Delivery Fraction of Inspired Oxygen 06/30/24 13:12 06/30/24 13:23 06/30/24 14:00 Temperature Pulse Rate 87 86 89 Respiratory Rate 21 H 20 Blood Pressure Pulse Oximetry 94 Oxygen Delivery Mechanical Ventilation Fraction of Inspired Oxygen 30 06/30/24 14:00 06/30/24 14:00 06/30/24 16:00 Temperature Pulse Rate 89 89 84 Respiratory Rate 20 Blood Pressure 137/68 Pulse Oximetry 94 Oxygen Delivery Fraction of Inspired Oxygen 06/30/24 16:00 06/30/24 16:00 06/30/24 16:00 Temperature 99.2 F Pulse Rate 84 84 Respiratory Rate 20 20 Blood Pressure 139/63 Pulse Oximetry 93 Oxygen Delivery Mechanical Ventilation Fraction of Inspired Oxygen 30 06/30/24 16:00 06/30/24 16:24 06/30/24 16:24 Temperature Pulse Rate 86 86 Respiratory Rate 20 20 Blood Pressure Pulse Oximetry Oxygen Delivery Fraction of Inspired Oxygen 30 06/30/24 16:51 Temperature Pulse Rate 84 Respiratory Rate Blood Pressure Pulse Oximetry 94 Oxygen Delivery Mechanical Ventilation Fraction of Inspired Oxygen 30 Intake/Output Intake/Output: Intake & Output 06/27/24 06/28/24 06/29/24 06/30/24 23:59 23:59 23:59 23:59 Intake Total 114.3 3455.5 842.4 Output Total 1100 700 Balance 114.3 2355.5 142.4 Meds/Results Medications: Active Medications Generic Name Dose Route Start Last Admin Trade Name Freq PRN Reason Stop Dose Admin Albuterol/Ipratropium 3 ml 06/29/24 02:00 06/30/24 13:10 Ipratropium 0.5 Mg/Albuterol Sulfate 2.5 Mg Ampul.Neb 3 Ml INHALATION 3 ml Q6HRT BARBARA Administration Aspirin 81 mg 07/01/24 08:00 Aspirin 81 Mg Chewable Tablet PO DAILY@0800 BARBARA Atorvastatin Calcium 40 mg 06/29/24 09:00 06/30/24 08:25 Atorvastatin 40 Mg Tablet PO 40 mg DAILY BARBARA Administration Dextrose 12.5 gm 06/29/24 08:08 Dextrose 50% 25 Gm/50 Ml Syringe IV PUSH PRN PRN Hypoglycemia Protocol Enoxaparin Sodium 40 mg 06/29/24 09:00 06/30/24 08:25 Enoxaparin 40 Mg/0.4 Ml Syringe SUB-Q 40 mg DAILY BARBARA Administration Glucagon 1 mg 06/29/24 08:08 Glucagon For Inj 1 Mg Vial IM PRN PRN Hypoglycemia Protocol Glucose 15 gm 06/29/24 08:08 Glucose Oral Gel 15 Gm Of Glucse In 37.5 Gm Tube PO PRN PRN Hypoglycemia Protocol Ceftriaxone Sodium 2 gm in 100 mls @ 200 mls/hr 06/28/24 20:00 06/29/24 20:56 Rocephin 2 Gm/Ns 100 Ml IVPB Infused Q24H BARBAAR Infusion Propofol 100 mls @ 17.496 mls/hr 06/29/24 04:30 06/30/24 16:24 Diprivan IV CONT 45 mcg/kg/min .Q5H43M BARBARA 17.5 mls/hr Administration Protocol 45 MCG/KG/MIN Doxycycline Hyclate 100 mg in 100 mls @ 100 mls/hr 06/28/24 23:00 06/30/24 10:51 Vibramycin 100 Mg/Ns 100 Ml IVPB 100 mls/hr Q12H BARBARA Administration Dextrose 1,000 mls @ 100 mls/hr 06/29/24 08:08 Dextrose 5% 1,000 Ml IVPB PRN PRN Hypoglycemia Protocol Insulin Aspart 3 - 6 units 06/29/24 12:00 06/30/24 11:43 Insulin Aspart (*Bkc) 100 Units/Ml SUB-Q Not Given Q6HR [facility] Protocol Levothyroxine Sodium 50 mcg 06/30/24 06:30 06/30/24 05:12 Levothyroxine Sodium 50 Mcg Tablet FEED TUBE 50 mcg DAILY@0630 BARBARA Administration Methylprednisolone Sodium Succinate 40 mg 06/30/24 12:00 06/30/24 11:50 Methylprednisolone Sod Succ 40 Mg Vial IV PUSH 40 mg Q6HR BARBARA Administration Multi-Ingred Cream/Lotion/Oil/Oint 1 applic 06/29/24 09:00 06/30/24 08:26 Mineral Oil/White Petrolatum Ointment EACH EYE 1 applic Q12HR BARBARA Administration Pantoprazole Sodium 40 mg 06/29/24 09:00 06/30/24 08:25 Pantoprazole Sodium Iv 40 Mg Vial IV PUSH 40 mg DAILY BARBARA Administration Potassium Chloride 40 meq 06/29/24 09:00 06/30/24 08:25 Potassium Chloride 20 Meq Packet (For Liquid) FEED TUBE 40 meq DAILY BARBARA Administration Sodium Chloride 10 ml 06/29/24 14:00 06/30/24 11:50 Central Line Flush IV PUSH 10 ml Q8HR BARBARA Administration Sodium Chloride 10 ml 06/29/24 12:40 Central Line Flush IV PUSH PRN PRN with TPN bag changes Sodium Chloride 20 ml 06/29/24 12:40 Central Line Flush IV PUSH PRN PRN after blood draws Radiology Results: ITS Impressions Abdomen X-Ray 06/28/24 20:03 IMPRESSION: Nasogastric tube in good position and ready for immediate use. Chest X-Ray 06/30/24 06:50 Impression: COPD and minimal left pleural effusion. Numerous stable linear right basilar scarring. Support tubes, as above. Labs Labs: Laboratory Results - last 24 hr 06/29/24 06/30/24 06/30/24 17:26 00:04 05:08 WBC 18.1 H RBC 3.40 L Hgb 9.7 L Hct 31.4 L MCV 92.4 MCH 28.5 MCHC 30.9 L RDW 17.2 H Plt Count 314 MPV 10.7 H Puncture Site ABG pH ABG pCO2 ABG pO2 ABG PO2/FiO2 Ratio ABG HCO3 ABG O2 Saturation ABG O2 Content ABG Base Excess A-a Gradient Oxyhemoglobin Carboxyhemoglobin Methemoglobin Reduced Hemoglobin Total Hemoglobin O2 Delivery Device O2 Liters/Min Minute Volume Vent Rate Vent Mode FiO2 Tidal Volume PEEP Peak Inspir Pressure Pressure Support Sodium 144 Potassium 4.3 Chloride 112 H Carbon Dioxide 24 Anion Gap 8 BUN 29 H D Creatinine 1.21 H Estim Creat Clear Calc 27 Estimated GFR 52 L Glucose 134 H POC Capillary Glucose 137 H 159 H Calcium 8.3 L Magnesium 2.2 Total Bilirubin 0.3 AST 24 ALT 23 Alkaline Phosphatase 98 Total Protein 6.0 L Albumin 3.4 L 06/30/24 06/30/24 05:18 11:30 WBC RBC Hgb Hct MCV MCH MCHC RDW Plt Count MPV Puncture Site Right radial ABG pH 7.291 L* ABG pCO2 49.5 H ABG pO2 68.1 L ABG PO2/FiO2 Ratio 2.27 ABG HCO3 23.3 ABG O2 Saturation 91.4 L ABG O2 Content 14.3 L ABG Base Excess -3.4 A-a Gradient 87.6 Oxyhemoglobin 92.0 Carboxyhemoglobin 0.5 Methemoglobin 0.3 Reduced Hemoglobin 7.2 H Total Hemoglobin 11.0 L O2 Delivery Device Ventilator O2 Liters/Min Not Reportable Minute Volume Not Reportable Vent Rate 20 Vent Mode Cmv FiO2 30 Tidal Volume 320 PEEP 5 Peak Inspir Pressure Not Reportable Pressure Support Not Reportable Sodium Potassium Chloride Carbon Dioxide Anion Gap BUN Creatinine Estim Creat Clear Calc Estimated GFR Glucose POC Capillary Glucose 170 H Calcium Magnesium Total Bilirubin AST ALT Alkaline Phosphatase Total Protein Albumin Quality VTE Prophylaxis VTE prophylaxis: pharmacologic ordered
[2024-06-30 17:14] LABS: Glucose Point of Care 175 mg/dl (65-105)
[2024-06-30] MEDS: cefTRIAXone 2 GM/NS 100 ML 2 GM/100 ML BAG IVPB (20:42)
[2024-07-01] VITALS (55 sets, daily range): BP systolic 83–192; BP diastolic 42–86; PULSE 63–87; RESP 12–40; TEMP 36.2–36.9; O2SAT 90–100
[2024-07-01] MEDS: methylPREDNISolone SOD SUCC 40 MG VIAL IV PUSH ×5 (01:10→23:44)
[2024-07-01 01:22] LABS: Glucose Point of Care 170 mg/dl (65-105)
[2024-07-01] MEDS: IPRATROPIUM 0.5 MG/ALBUTEROL SULFATE 2.5 MG AMPUL.NEB 3 ML INHALATION ×4 (01:50→20:00)
[2024-07-01] MEDS: PROPOFOL IV EMULSION 100 ML 17.5 MG IV CONT (03:25)
[2024-07-01 04:23] LABS: Alveolar/Arterial O2 Gradient 107.9 mmHg; Base Excess ABG -3.9 mEq/l (+/-2.0); Carboxyhemoglobin 0.2 % THb (0-2.0); Fractional Inspired Oxygen 30 %; Methemoglobin ABG 0.3 %THb (0-1.5); Oxygen Content ABG 13.8 %vol (16.0-22.0); Oxygen Saturation ABG 91.2 % (95.0-100.0); Oxyhemoglobin 90.8 % THb (90.0-100.0); PCO2 ABG 37.5 mmHg (35.0-45.0); PO2 ABG 61.9 mmHg (80.0-100.0); PO2 FiO2 Ratio Arterial Blood 2.06 %; Reduced Hemoglobin 8.7 %THb (0-5.0); Total Hemoglobin 10.8 g/dL (12.0-18.0); pH ABG 7.366 (7.350-7.450)
[2024-07-01 04:25] LABS: Arterial Blood Gas Vent Mode CMV; Arterial Blood Gas Ventilator rate 20 /MIN; Device VENTILATOR; Modified Allen's Test Pass; Site Drawn LEFT RADIAL
[2024-07-01 04:26] LABS: Arterial Blood Gas PEEP 5 cmH2O; Arterial Blood Gas Tidal Volume 400 ml
[2024-07-01] MEDS: CENTRAL LINE FLUSH 10 ML IV PUSH ×3 (05:57→23:44)
[2024-07-01] MEDS: LEVOTHYROXINE SODIUM 50 MCG TABLET FEED TUBE (05:57)
[2024-07-01 06:27] LABS: Basophils Percent Auto 0.1 % (0.2-1.2); Hematocrit 33.8 % (37.0-47.0); Hemoglobin 10.7 g/dL (12.0-15.0); Immature Granulocyte Absolute 0.12 K/mm3 (0.00-0.031); Immature Granulocyte Percent A 0.7 % (0-0.5); Lymphocytes Absolute Auto 0.86 K/mm3 (0.9-3.2); Lymphocytes Percent Auto 5.2 % (18.3-44.2); Mean Corpuscular HGB Conc 31.7 g/dl (32-36); Mean Corpuscular Hemoglobin 28.8 pg (26-34); Mean Corpuscular Volume 91.1 fl (80-100); Mean Platelet Volume 11.4 fl (7.4-10.4); Monocytes Absolute Auto 0.7 K/mm3 (0.1-0.6); Monocytes Percent Auto 4.2 % (2.6-8.5); Neutrophils Absolute Auto 14.8 K/mm3 (1.3-6.7); Neutrophils Percent Auto 89.8 % (45.5-73.1); Nucleated Red Blood Cells Perc 0.1 % (0.0-0.2); Platelet Count Result 354 k/mm3 (150-375); Red Blood Count 3.71 M/mm3 (4.2-5.4); Red Cell Distribution Width 17.7 % (11.5-14.5); White Blood Count 16.5 K/mm3 (4.5-10.0)
[2024-07-01 06:40] LABS: Lactic Acid Reflex 1.1 mmol/L (0.7-2.0)
[2024-07-01 06:41] LABS: Alanine Aminotransferase 30 U/L (6-35); Albumin Level 3.5 g/dL (3.5-5.1); Alkaline Phosphatase 99 U/L (38-126); Anion Gap 7 mmol/L (4-12); Aspartate Amino Transferase 30 U/L (14-36); Bilirubin,Total 0.2 mg/dL (0.2-1.3); Blood Urea Nitrogen 39 mg/dL (7-17); Carbon Dioxide 25 mmol/L (22-30); Chloride 111 mmol/L (98-107); Estimated CRCL calculation 33 ml/min; Estimated Glomerular Filt Rate > 60; Glucose 163 mg/dL (65-110); Magnesium 2.4 mg/dL (1.6-2.3); Potassium 4.3 mmol/L (3.4-5.0); Sodium 143 mmol/L (137-145)
[2024-07-01 07:07] LABS: Triglycerides 829 mg/dL (<150)
[2024-07-01] MEDS: PROPOFOL IV EMULSION 100 ML 19.44 MG IV CONT (08:25)
[2024-07-01] MEDS: POTASSIUM CHLORIDE 20 MEQ PACKET (FOR LIQUID) 40 MEQ FEED TUBE (08:26)
[2024-07-01] MEDS: MINERAL OIL/WHITE PETROLATUM OINTMENT 1 APPLIC EACH EYE ×4 (08:26→20:12)
[2024-07-01] MEDS: ATORVASTATIN 40 MG TABLET PO (08:26)
[2024-07-01] MEDS: PANTOPRAZOLE SODIUM IV 40 MG VIAL IV PUSH (08:26)
[2024-07-01] MEDS: ENOXAPARIN 40 MG/0.4 ML SYRINGE SUB-Q (08:26)
[2024-07-01] MEDS: ASPIRIN 81 MG CHEWABLE TABLET PO (08:26)
[2024-07-01] MEDS: FENTANYL 2,500MCG/NS250ML(*CRX 2,500 MCG/250 ML BAG IV CONT (10:01)
[2024-07-01] MEDS: MIDAZOLAM 100MG/NS 100ML(*CRX) 100 MG/100 ML BAG IV CONT (10:01)
--- NOTE | 2024-07-01 11:10 | PCFNICU ---
ICU Rounding Note: Pt current nutrition is Vital AF 1.2 @ 40 ml/h. Flush 30 ml q 4 hours. Nutrition recommendation: Increase TF rate to Vital AF 1.2 @ 50 ml/h to provide 1320 kcal, 83 g protein, 892 ml free water. Keep flushes at 30 ml q 4 h Last recorded weight is 64.5 kg. Bowel Motility: +1 BM 2.5.25 Labs Reviewed: Hgb 10.7, Hct 33.8, BUN 39, Cre 1.01, Glu 163, TRIG 829, Mag 2.4 Meds Noted: Propofol titrating off; fentanyl, versed, lovenox, protonix. No pressors Skin: No skin issues Additional Notes: Propofol to come off today because of high TRIG and transitioning to fentanyl, versed. Titrating up on tube feeding to 50 ml/h to better meet estimated needs (about 89% EER) Following daily in ICU rounds. Will monitor weight, labs, skin, diet orders, meds, tube feedings tolerance every Saturday and Saturday .
[2024-07-01] MEDS: DOXYCYCLINE 100 MG/NS 100 ML 100 MG/100 ML BAG IVPB ×2 (11:14→23:44)
[2024-07-01] MEDS: ROCURONIUM BROMIDE 50 MG/5 ML VIAL IV PUSH (11:45)
[2024-07-01 11:53] LABS: Glucose Point of Care 123 mg/dl (65-105)
[2024-07-01] MEDS: CISATRACURIUM BESYLATE 200 MG in DEXTROSE 5% 80 ML 5.81 ML IV CONT (13:13)
--- NOTE | 2024-07-01 15:13 | WPDINTPN ---
Progress Note: A&P Assessment and Plan (1) Acute on chronic respiratory failure with hypoxia and hypercapnia: Code(s): J96.21 - Acute and chronic respiratory failure with hypoxia; J96.22 - Acute and chronic respiratory failure with hypercapnia Status: Acute Assessment and Plan: Acute on chronic respiratory failure secondary to COPD exacerbation.? Community-acquired pneumonia although chest x-ray is not suggestive and patient is low procalcitonin level. WBC elevated MRSA screen negative 06/28: Blood cultures negative x2 -Continue Rocephin and doxycycline (06/28) -DC vancomycin (06/29) -Continue bronchodilators, -06/30: patient not moving any air, given dose of Solu-Medrol 125 mg IV x1 and will continue Solu-Medrol 40 mg IV q.6 hours -06/30: albuterol 15 mg x 1 neb given -ABG and chest x-ray reviewed, increased tidal volume -07/01: ABGs improved this more. Patient did have high peak pressures, after switching her from propofol to fentanyl and Versed due to elevated triglycerides. She was started on Nimbex infusion which improved her oxygenation, respiratory status and improved air entry. (2) Acute exacerbation of chronic obstructive pulmonary disease: Code(s): J44.1 - Chronic obstructive pulmonary disease with (acute) exacerbation Status: Acute Assessment and Plan: Continue mechanical ventilation, bronchodilators, antibiotics, steroids (3) Elevated troponin: Code(s): R77.8 - Other specified abnormalities of plasma proteins Status: Acute Assessment and Plan: Patient has elevated troponin likely secondary to demand ischemia from acute respiratory failure. EKG reviewed and does not show any ST elevation. Patient does not have any documented history of coronary disease. Troponins trending down Continue aspirin 81 mg p.o. daily and statin Appreciate cardiology evaluation and recommendation Hold beta-mika due to sinus bradycardia while on sedation 06/29/2024: Echocardiogram Summary 1. The left ventricle is normal in size with thickened left ventricular rodríguez. The overall left ventricular systolic function appears preserved. Cannot rule out very mild hypokinesis of the apical wall. 2. The right ventricle is normal in size and systolic function. 3. The there is a small amount of pericardial effusion with no echocardiographic evidence of cardiac tamponade. (4) Hypothyroidism: Code(s): E03.9 - Hypothyroidism, unspecified Status: Acute Assessment and Plan: Continue levothyroxine. -TSH level - within normal limits (5) Electrolyte abnormality: Code(s): E87.8 - Other disorders of electrolyte and fluid balance, not elsewhere classified Status: Acute Assessment and Plan: Potassium has normalized after replacement Plan DVT prophylaxis -Lovenox Stress ulcer prophylaxis -PPI Nutrition -tolerating tube feeds Code Status - Full Code Total Critical Care Time - 34 minutes Due to a high probability of clinically significant, life threatening deterioration, the patient required my highest level of preparedness to intervene emergently and I personally spent this critical care time directly and personally managing the patient. This critical care time included obtaining a history; examining the patient; pulse oximetry; ordering and review of studies; arranging urgent treatment with development of a management plan; evaluation of patient's response to treatment; frequent reassessment; and discussions with other providers. It was exclusive of separately billable procedures and treating other patients and teaching time. Please see Assessment and Plan section and the rest of the note for further information on patient assessment and treatment This dictation may have been done utilizing a voice recognition system. Attempts have been made to correct errors. However, there may be uncorrected grammatical, spelling, and recognitions errors present. Subjective Date/time seen: 07/01/24 15:13 Interval history: Reason for consult: COPD exacerbation, acute hypercapnic respiratory failure, NSTEMI with elevated troponin 07/01/2024: Patient seen and examined in the ICU, remains intubated on CMV mode of ventilation, peep of 5, 30% FiO2 intubated sedated with propofol infusion. Triglycerides are elevated, about the bedside RN to switch propofol to fentanyl and Versed infusion. Patient does not open her eyes or follow simple commands this morning. Remains afebrile, adequate urine output. WBC count trending down. Patient did have high peak pressures, along with desaturation, have placed patient on Nimbex infusion with improved oxygenation and better air entry. Review of Systems Review of Systems: ROS unobtainable: Yes unobtainable due to endotracheal tube, unobtainable due to medical condition and unobtainable due to mental status Exam Narrative: General: Pt is intubated and on mechanical ventilation Lungs/Chest: Trachea central, better air entry this morning, no wheezing or rales. Cardiac: RRR. Normal S1 S2. No murmurs Circulation: Pedal pulses are intact and symmetrical. Abdomen: Decreased bowel sounds. Obese. Soft. NT. ND. Extremities: No clubbing, cyanosis or edema. Warm : [place] in place Neurologic: Intubated and sedated and paralyzed with Nimbex Objective Data Vital Signs Vital Signs: Vital Signs - 24 hr 06/30/24 16:00 06/30/24 16:00 06/30/24 16:00 Temperature 99.2 F Pulse Rate 84 84 84 Respiratory Rate 20 20 Blood Pressure 139/63 Pulse Oximetry 93 Oxygen Delivery Fraction of Inspired Oxygen 06/30/24 16:00 06/30/24 16:00 06/30/24 16:24 Temperature Pulse Rate 86 Respiratory Rate 20 Blood Pressure Pulse Oximetry Oxygen Delivery Mechanical Ventilation Fraction of Inspired Oxygen 30 30 06/30/24 16:24 06/30/24 16:51 06/30/24 18:00 Temperature Pulse Rate 86 84 82 Respiratory Rate 20 20 Blood Pressure Pulse Oximetry 94 Oxygen Delivery Mechanical Ventilation Fraction of Inspired Oxygen 30 06/30/24 18:00 06/30/24 18:00 06/30/24 20:00 Temperature Pulse Rate 82 82 Respiratory Rate 20 Blood Pressure 142/70 H Pulse Oximetry 93 96 Oxygen Delivery Mechanical Ventilation Fraction of Inspired Oxygen 30 06/30/24 20:00 06/30/24 20:00 06/30/24 20:00 Temperature 98.5 F Pulse Rate 81 81 Respiratory Rate 20 Blood Pressure 131/75 Pulse Oximetry 94 Oxygen Delivery Fraction of Inspired Oxygen 30 06/30/24 20:00 06/30/24 20:30 06/30/24 20:30 Temperature Pulse Rate 81 79 Respiratory Rate 23 H 20 Blood Pressure Pulse Oximetry 94 Oxygen Delivery Mechanical Ventilation Fraction of Inspired Oxygen 30 06/30/24 22:00 06/30/24 22:00 06/30/24 22:00 Temperature Pulse Rate 73 74 74 Respiratory Rate 20 20 Blood Pressure 108/62 Pulse Oximetry 93 Oxygen Delivery Fraction of Inspired Oxygen 06/30/24 22:27 06/30/24 22:27 06/30/24 23:03 Temperature Pulse Rate 72 72 73 Respiratory Rate 20 20 Blood Pressure Pulse Oximetry 95 Oxygen Delivery Mechanical Ventilation Fraction of Inspired Oxygen 30 07/01/24 00:00 07/01/24 00:00 07/01/24 00:00 Temperature 98.4 F Pulse Rate 71 71 71 Respiratory Rate 20 20 Blood Pressure 110/62 Pulse Oximetry 92 Oxygen Delivery Fraction of Inspired Oxygen 07/01/24 00:00 07/01/24 00:00 07/01/24 01:50 Temperature Pulse Rate 79 Respiratory Rate Blood Pressure Pulse Oximetry 92 94 Oxygen Delivery Mechanical Ventilation Mechanical Ventilation Fraction of Inspired Oxygen 30 30 30 07/01/24 02:00 07/01/24 02:00 07/01/24 02:00 Temperature Pulse Rate 67 67 67 Respiratory Rate 20 20 Blood Pressure 110/65 Pulse Oximetry 92 Oxygen Delivery Fraction of Inspired Oxygen 07/01/24 03:04 07/01/24 03:25 07/01/24 03:25 Temperature Pulse Rate 67 67 Respiratory Rate 20 20 Blood Pressure Pulse Oximetry Oxygen Delivery Fraction of Inspired Oxygen 30 07/01/24 04:00 07/01/24 04:00 07/01/24 04:00 Temperature Pulse Rate 70 65 Respiratory Rate 20 Blood Pressure Pulse Oximetry 96 Oxygen Delivery Mechanical Ventilation Fraction of Inspired Oxygen 30 07/01/24 04:00 07/01/24 04:17 07/01/24 06:00 Temperature 98.3 F Pulse Rate 65 66 80 Respiratory Rate 20 20 Blood Pressure 115/65 Pulse Oximetry 95 94 Oxygen Delivery Mechanical Ventilation Fraction of Inspired Oxygen 30 07/01/24 06:00 07/01/24 06:00 07/01/24 08:00 Temperature 97.6 F Pulse Rate 78 78 72 Respiratory Rate 20 20 Blood Pressure 162/85 H 143/78 H Pulse Oximetry 95 97 Oxygen Delivery Fraction of Inspired Oxygen 07/01/24 08:00 07/01/24 08:00 07/01/24 08:00 Temperature Pulse Rate 72 72 Respiratory Rate 32 H Blood Pressure Pulse Oximetry 98 Oxygen Delivery Mechanical Ventilation Fraction of Inspired Oxygen 30 30 07/01/24 08:25 07/01/24 08:25 07/01/24 09:17 Temperature Pulse Rate 72 72 66 Respiratory Rate 20 20 20 Blood Pressure Pulse Oximetry Oxygen Delivery Fraction of Inspired Oxygen 07/01/24 09:18 07/01/24 09:23 07/01/24 10:00 Temperature Pulse Rate 63 64 83 Respiratory Rate 20 40 H Blood Pressure Pulse Oximetry 100 Oxygen Delivery Mechanical Ventilation Fraction of Inspired Oxygen 30 07/01/24 10:00 07/01/24 10:00 07/01/24 10:01 Temperature 98.2 F Pulse Rate 81 81 77 Respiratory Rate 24 H 31 H Blood Pressure 192/86 H Pulse Oximetry 98 Oxygen Delivery Fraction of Inspired Oxygen 07/01/24 10:01 07/01/24 10:05 07/01/24 10:10 Temperature Pulse Rate 79 82 83 Respiratory Rate 40 H 38 H 37 H Blood Pressure Pulse Oximetry Oxygen Delivery Fraction of Inspired Oxygen 07/01/24 10:11 07/01/24 10:15 07/01/24 10:20 Temperature Pulse Rate 80 83 83 Respiratory Rate 38 H 25 H 22 H Blood Pressure Pulse Oximetry Oxygen Delivery Fraction of Inspired Oxygen 07/01/24 10:25 07/01/24 10:30 07/01/24 10:30 Temperature Pulse Rate 81 82 83 Respiratory Rate 22 H 21 H 27 H Blood Pressure Pulse Oximetry Oxygen Delivery Fraction of Inspired Oxygen 07/01/24 10:30 07/01/24 10:35 07/01/24 10:40 Temperature Pulse Rate 83 83 81 Respiratory Rate 33 H 33 H 23 H Blood Pressure Pulse Oximetry Oxygen Delivery Fraction of Inspired Oxygen 07/01/24 10:45 07/01/24 10:45 07/01/24 10:45 Temperature Pulse Rate 83 82 83 Respiratory Rate 31 H 31 H 18 Blood Pressure Pulse Oximetry Oxygen Delivery Fraction of Inspired Oxygen 07/01/24 11:01 07/01/24 11:09 07/01/24 11:10 Temperature Pulse Rate 80 82 82 Respiratory Rate 18 18 Blood Pressure Pulse Oximetry 92 Oxygen Delivery Mechanical Ventilation Fraction of Inspired Oxygen 30 07/01/24 11:30 07/01/24 11:43 07/01/24 11:43 Temperature Pulse Rate 81 84 81 Respiratory Rate 12 20 13 Blood Pressure Pulse Oximetry Oxygen Delivery Fraction of Inspired Oxygen 07/01/24 11:52 07/01/24 11:52 07/01/24 11:53 Temperature Pulse Rate 87 87 87 Respiratory Rate 18 18 18 Blood Pressure Pulse Oximetry Oxygen Delivery Fraction of Inspired Oxygen 07/01/24 12:00 07/01/24 12:00 07/01/24 12:00 Temperature 97.5 F L Pulse Rate 76 72 82 Respiratory Rate 18 18 Blood Pressure 83/44 L Pulse Oximetry 97 90 Oxygen Delivery Mechanical Ventilation Fraction of Inspired Oxygen 30 07/01/24 12:00 07/01/24 12:10 07/01/24 12:25 Temperature Pulse Rate Respiratory Rate Blood Pressure Pulse Oximetry 95 96 Oxygen Delivery Fraction of Inspired Oxygen 30 40 30 07/01/24 13:00 07/01/24 13:11 07/01/24 13:11 Temperature Pulse Rate 74 74 74 Respiratory Rate 18 18 18 Blood Pressure Pulse Oximetry Oxygen Delivery Fraction of Inspired Oxygen 07/01/24 13:12 07/01/24 13:13 07/01/24 13:20 Temperature Pulse Rate 74 74 74 Respiratory Rate 18 18 18 Blood Pressure 102/51 L Pulse Oximetry Oxygen Delivery Fraction of Inspired Oxygen 07/01/24 14:00 07/01/24 14:00 07/01/24 14:16 Temperature Pulse Rate 72 72 70 Respiratory Rate 18 18 Blood Pressure 111/49 L 114/49 L Pulse Oximetry 90 Oxygen Delivery Fraction of Inspired Oxygen 07/01/24 14:31 07/01/24 14:35 07/01/24 14:38 Temperature Pulse Rate 70 76 73 Respiratory Rate 18 18 Blood Pressure Pulse Oximetry 98 Oxygen Delivery Mechanical Ventilation Fraction of Inspired Oxygen 40 07/01/24 15:08 Temperature Pulse Rate 68 Respiratory Rate 18 Blood Pressure 106/44 L Pulse Oximetry Oxygen Delivery Fraction of Inspired Oxygen Intake/Output Intake/Output: Intake & Output 06/28/24 06/29/24 06/30/24 07/01/24 23:59 23:59 23:59 23:59 Intake Total 114.3 3455.5 1845.4 971.4 Output Total 1100 1900 450 Balance 114.3 2355.5 -54.6 521.4 Meds/Results Medications: Active Medications Generic Name Dose Route Start Last Admin Trade Name Freq PRN Reason Stop Dose Admin Albuterol/Ipratropium 3 ml 06/29/24 02:00 07/01/24 14:31 Ipratropium 0.5 Mg/Albuterol Sulfate 2.5 Mg Ampul.Neb 3 Ml INHALATION 3 ml Q6HRT BARBARA Administration Aspirin 81 mg 07/01/24 08:00 07/01/24 08:26 Aspirin 81 Mg Chewable Tablet PO 81 mg DAILY@0800 BARBARA Administration Atorvastatin Calcium 40 mg 06/29/24 09:00 07/01/24 08:26 Atorvastatin 40 Mg Tablet PO 40 mg DAILY BARBARA Administration Dextrose 12.5 gm 06/29/24 08:08 Dextrose 50% 25 Gm/50 Ml Syringe IV PUSH PRN PRN Hypoglycemia Protocol Enoxaparin Sodium 40 mg 06/29/24 09:00 07/01/24 08:26 Enoxaparin 40 Mg/0.4 Ml Syringe SUB-Q 40 mg DAILY BARBARA Administration Glucagon 1 mg 06/29/24 08:08 Glucagon For Inj 1 Mg Vial IM PRN PRN Hypoglycemia Protocol Glucose 15 gm 06/29/24 08:08 Glucose Oral Gel 15 Gm Of Glucse In 37.5 Gm Tube PO PRN PRN Hypoglycemia Protocol Ceftriaxone Sodium 2 gm in 100 mls @ 200 mls/hr 06/28/24 20:00 06/30/24 22:29 Rocephin 2 Gm/Ns 100 Ml IVPB Infused Q24H BARBARA Infusion Propofol 100 mls @ 0 mls/hr 06/29/24 04:30 07/01/24 13:20 Diprivan IV CONT 0 mcg/kg/min .Q0M BARBARA 0 mls/hr Titration Protocol Doxycycline Hyclate 100 mg in 100 mls @ 100 mls/hr 06/28/24 23:00 07/01/24 12:14 Vibramycin 100 Mg/Ns 100 Ml IVPB 07/03/24 22:59 Infused Q12H BARBARA Infusion Dextrose 1,000 mls @ 100 mls/hr 06/29/24 08:08 Dextrose 5% 1,000 Ml IVPB PRN PRN Hypoglycemia Protocol Fentanyl Citrate 2,500 mcg in 250 mls @ 15 mls/hr 07/01/24 08:50 07/01/24 13:11 Fentanyl 2,500 Mcg/Ns 250 Ml IV CONT 150 mcg/hr .[id number] BARBARA 15 mls/hr Titration Protocol 150 MCG/HR Midazolam HCl 100 mg in 100 mls @ 3 mls/hr 07/01/24 08:50 07/01/24 13:12 Versed 100 Mg/Ns 100 Ml IV CONT 3 mg/hr .[id number] BARBARA 3 mls/hr Titration Protocol 3 MG/HR Cisatracurium Besylate 200 mg/ 100 mls @ 3.87 mls/hr 07/01/24 12:50 07/01/24 15:08 Dextrose IV CONT 2 mcg/kg/min .[id number] BARBARA 3.87 mls/hr Titration Protocol 2 MCG/KG/MIN Insulin Aspart 3 - 6 units 06/29/24 12:00 07/01/24 11:53 Insulin Aspart (*Bkc) 100 Units/Ml SUB-Q Not Given Q6HR [facility] Protocol Levothyroxine Sodium 50 mcg 06/30/24 06:30 07/01/24 05:57 Levothyroxine Sodium 50 Mcg Tablet FEED TUBE 50 mcg DAILY@0630 BARBARA Administration Methylprednisolone Sodium Succinate 40 mg 06/30/24 12:00 07/01/24 11:14 Methylprednisolone Sod Succ 40 Mg Vial IV PUSH 40 mg Q6HR BARBARA Administration Multi-Ingred Cream/Lotion/Oil/Oint 1 applic 06/29/24 09:00 07/01/24 08:26 Mineral Oil/White Petrolatum Ointment EACH EYE 1 applic Q12HR BARBARA Administration Multi-Ingred Cream/Lotion/Oil/Oint 1 applic 07/01/24 09:00 07/01/24 10:02 Mineral Oil/White Petrolatum Ointment EACH EYE 1 applic Q12HR BARBARA Administration Pantoprazole Sodium 40 mg 06/29/24 09:00 07/01/24 08:26 Pantoprazole Sodium Iv 40 Mg Vial IV PUSH 40 mg DAILY BARBARA Administration Potassium Chloride 40 meq 06/29/24 09:00 07/01/24 08:26 Potassium Chloride 20 Meq Packet (For Liquid) FEED TUBE 40 meq DAILY BARBARA Administration Sodium Chloride 10 ml 06/29/24 14:00 07/01/24 13:21 Central Line Flush IV PUSH 10 ml Q8HR BARBARA Administration Sodium Chloride 10 ml 06/29/24 12:40 Central Line Flush IV PUSH PRN PRN with TPN bag changes Sodium Chloride 20 ml 06/29/24 12:40 Central Line Flush IV PUSH PRN PRN after blood draws Radiology Results: ITS Impressions Abdomen X-Ray 06/28/24 20:03 IMPRESSION: Nasogastric tube in good position and ready for immediate use. Chest X-Ray 07/01/24 06:30 Impression: COPD. Minimal pleural effusions. Support tubes, as above. Labs Labs: Laboratory Results - last 24 hr 06/30/24 07/01/24 07/01/24 17:12 01:18 04:08 WBC RBC Hgb Hct MCV MCH MCHC RDW Plt Count MPV Immature Gran % (Auto) Neut % (Auto) Lymph % (Auto) [place] % (Auto) Eos % (Auto) Baso % (Auto) Lymph # (Auto) [place] # (Auto) Eos # (Auto) Baso # (Auto) Abs Immat Gran (auto) Absolute Neuts (auto) Absolute Nucleated RBC Nucleated RBC % Puncture Site Left radial ABG pH 7.366 ABG pCO2 37.5 ABG pO2 61.9 L ABG PO2/FiO2 Ratio 2.06 ABG HCO3 21.0 L ABG O2 Saturation 91.2 L ABG O2 Content 13.8 L ABG Base Excess -3.9 A-a Gradient 107.9 Oxyhemoglobin 90.8 Carboxyhemoglobin 0.2 Methemoglobin 0.3 Reduced Hemoglobin 8.7 H Total Hemoglobin 10.8 L O2 Delivery Device Ventilator O2 Liters/Min Not Reportable Minute Volume Not Reportable Vent Rate 20 Vent Mode Cmv FiO2 30 Tidal Volume 400 PEEP 5 Peak Inspir Pressure Not Reportable Pressure Support Not Reportable Sodium Potassium Chloride Carbon Dioxide Anion Gap BUN Creatinine Estim Creat Clear Calc Estimated GFR Glucose POC Capillary Glucose 175 H 170 H Lactic Acid Calcium Magnesium Total Bilirubin AST ALT Alkaline Phosphatase Total Protein Albumin Triglycerides 07/01/24 07/01/24 05:54 11:22 WBC 16.5 H RBC 3.71 L Hgb 10.7 L Hct 33.8 L MCV 91.1 MCH 28.8 MCHC 31.7 L RDW 17.7 H Plt Count 354 MPV 11.4 H Immature Gran % (Auto) 0.7 H Neut % (Auto) 89.8 H Lymph % (Auto) 5.2 L [place] % (Auto) 4.2 Eos % (Auto) 0.0 Baso % (Auto) 0.1 L Lymph # (Auto) 0.86 L [place] # (Auto) 0.7 H Eos # (Auto) 0.0 Baso # (Auto) 0.0 Abs Immat Gran (auto) 0.12 H Absolute Neuts (auto) 14.8 H Absolute Nucleated RBC 0.020 H Nucleated RBC % 0.1 Puncture Site ABG pH ABG pCO2 ABG pO2 ABG PO2/FiO2 Ratio ABG HCO3 ABG O2 Saturation ABG O2 Content ABG Base Excess A-a Gradient Oxyhemoglobin Carboxyhemoglobin Methemoglobin Reduced Hemoglobin Total Hemoglobin O2 Delivery Device O2 Liters/Min Minute Volume Vent Rate Vent Mode FiO2 Tidal Volume PEEP Peak Inspir Pressure Pressure Support Sodium 143 Potassium 4.3 Chloride 111 H Carbon Dioxide 25 Anion Gap 7 BUN 39 H D Creatinine 1.01 H Estim Creat Clear Calc 33 Estimated GFR > 60 Glucose 163 H POC Capillary Glucose 123 H Lactic Acid 1.1 Calcium 8.0 L Magnesium 2.4 H Total Bilirubin 0.2 AST 30 ALT 30 Alkaline Phosphatase 99 Total Protein 6.0 L Albumin 3.5 Triglycerides 829 H Quality VTE Prophylaxis VTE prophylaxis: pharmacologic ordered
[2024-07-01 17:10] LABS: Glucose Point of Care 168 mg/dl (65-105)
[2024-07-01] MEDS: cefTRIAXone 2 GM/NS 100 ML 2 GM/100 ML BAG IVPB (20:11)
[2024-07-01 23:54] LABS: Glucose Point of Care 173 mg/dl (65-105)
[2024-07-02] VITALS (41 sets, daily range): BP systolic 100–144; BP diastolic 38–75; PULSE 62–83; RESP 18; TEMP 36.2–37.1; O2SAT 87–98
[2024-07-02] MEDS: IPRATROPIUM 0.5 MG/ALBUTEROL SULFATE 2.5 MG AMPUL.NEB 3 ML INHALATION ×4 (02:06→20:30)
[2024-07-02] MEDS: FENTANYL 2,500MCG/NS250ML(*CRX 2,500 MCG/250 ML BAG 12.5 MCG IV CONT (03:55)
[2024-07-02] MEDS: methylPREDNISolone SOD SUCC 40 MG VIAL IV PUSH ×4 (05:08→23:12)
[2024-07-02] MEDS: LEVOTHYROXINE SODIUM 50 MCG TABLET FEED TUBE (05:09)
[2024-07-02] MEDS: CENTRAL LINE FLUSH 10 ML IV PUSH ×3 (05:09→20:38)
[2024-07-02 05:13] LABS: Alveolar/Arterial O2 Gradient 131.2 mmHg; Base Excess ABG -3.6 mEq/l (+/-2.0); Carboxyhemoglobin 0.6 % THb (0-2.0); Fractional Inspired Oxygen 35 %; HCO3 ABG 21.7 mEq/l (22.0-26.0); Methemoglobin ABG 0.3 %THb (0-1.5); Oxygen Content ABG 14.7 %vol (16.0-22.0); Oxygen Saturation ABG 93.7 % (95.0-100.0); Oxyhemoglobin 93.7 % THb (90.0-100.0); PCO2 ABG 40.2 mmHg (35.0-45.0); PO2 ABG 71.6 mmHg (80.0-100.0); PO2 FiO2 Ratio Arterial Blood 2.05 %; Reduced Hemoglobin 5.4 %THb (0-5.0); Total Hemoglobin 11.1 g/dL (12.0-18.0)
[2024-07-02 05:27] LABS: Hematocrit 32.9 % (37.0-47.0); Mean Corpuscular HGB Conc 30.4 g/dl (32-36); Mean Corpuscular Hemoglobin 28.2 pg (26-34); Mean Corpuscular Volume 92.7 fl (80-100); Mean Platelet Volume 10.8 fl (7.4-10.4); Platelet Count Result 314 k/mm3 (150-375); Red Blood Count 3.55 M/mm3 (4.2-5.4); Red Cell Distribution Width 18.4 % (11.5-14.5); White Blood Count 14.5 K/mm3 (4.5-10.0)
[2024-07-02 05:41] LABS: Alanine Aminotransferase 37 U/L (6-35); Albumin Level 3.3 g/dL (3.5-5.1); Alkaline Phosphatase 87 U/L (38-126); Anion Gap 5 mmol/L (4-12); Aspartate Amino Transferase 32 U/L (14-36); Bilirubin,Total 0.3 mg/dL (0.2-1.3); Blood Urea Nitrogen 46 mg/dL (7-17); Calcium 7.7 mg/dL (8.4-10.2); Carbon Dioxide 28 mmol/L (22-30); Chloride 113 mmol/L (98-107); Estimated CRCL calculation 36 ml/min; Estimated Glomerular Filt Rate > 60; Glucose 190 mg/dL (65-110); Magnesium 2.4 mg/dL (1.6-2.3); Phosphorus 3.2 mg/dL (2.5-4.5); Potassium 5.2 mmol/L (3.4-5.0); Sodium 146 mmol/L (137-145); Triglycerides 120 mg/dL (<150)
[2024-07-02 05:51] LABS: Device VENTILATOR; Modified Allen's Test Pass; Site Drawn RIGHT RADIAL
[2024-07-02 05:52] LABS: Arterial Blood Gas PEEP 5 cmH2O; Arterial Blood Gas Tidal Volume 400 ml; Arterial Blood Gas Vent Mode CMV; Arterial Blood Gas Ventilator rate 18 /MIN
[2024-07-02] MEDS: CISATRACURIUM BESYLATE 200 MG in DEXTROSE 5% 80 ML 5.81 ML IV CONT (06:10)
[2024-07-02 08:10] LABS: Glucose Point of Care 188 mg/dl (65-105)
[2024-07-02] MEDS: DEXTROSE 50% 25 GM/50 ML SYRINGE IV PUSH (08:10)
[2024-07-02] MEDS: INSULIN HUMAN REGULAR (*BKC) 100 UNITS/ML 10 UNITS IV PUSH (08:14)
[2024-07-02] MEDS: PANTOPRAZOLE SODIUM IV 40 MG VIAL IV PUSH (08:16)
[2024-07-02] MEDS: ATORVASTATIN 40 MG TABLET PO (08:18)
[2024-07-02] MEDS: ASPIRIN 81 MG CHEWABLE TABLET PO (08:18)
[2024-07-02] MEDS: ENOXAPARIN 40 MG/0.4 ML SYRINGE SUB-Q (08:19)
[2024-07-02] MEDS: MINERAL OIL/WHITE PETROLATUM OINTMENT 1 APPLIC EACH EYE ×4 (08:19→20:38)
[2024-07-02] MEDS: SODIUM ZIRCONIUM CYCLOSILICATE 10 GM POWD.PACK PO (08:19)
[2024-07-02 09:46] LABS: Anion Gap 10 mmol/L (4-12); Blood Urea Nitrogen 48 mg/dL (7-17); Calcium 7.7 mg/dL (8.4-10.2); Carbon Dioxide 26 mmol/L (22-30); Chloride 112 mmol/L (98-107); Estimated CRCL calculation 37 ml/min; Estimated Glomerular Filt Rate > 60; Glucose 238 mg/dL (65-110); Potassium 4.6 mmol/L (3.4-5.0); Sodium 148 mmol/L (137-145)
[2024-07-02] MEDS: DOXYCYCLINE 100 MG/NS 100 ML 100 MG/100 ML BAG IVPB ×2 (10:29→22:06)
--- NOTE | 2024-07-02 11:08 | PCFNICU ---
ICU Rounding Note: Pt current nutrition is Vital AF 1.2 at 50 ml/hr. Last recorded weight is 71 kg, up from 64.3 kg on admit. Bowel Motility: +BM reported 2/5 Labs Reviewed:Glu 190, BUN 46, Cr 1.06, Alb 3.3 Meds Noted: Fentanyl, Versed, Bumex, NovoLog, Protonix, Lovenox Skin: WNL Additional Notes: Patient remains on mechanical vent. Tube feedings are being tolerated of Vital AF 1.2 at 50 m/hr, which are providing 1320 kcal/83 gm protein/892 ml water. Flush 30 ml q 4 hours. Agree with diet orders. Following daily in ICU rounds. Will monitor weight, labs, skin, diet orders, meds, tube feedings tolerance every Saturday and Saturday.
[2024-07-02 11:44] LABS: Glucose Point of Care 160 mg/dl (65-105)
--- NOTE | 2024-07-02 14:06 | WPDINTPN ---
Progress Note: A&P Assessment and Plan (1) Acute on chronic respiratory failure with hypoxia and hypercapnia: Code(s): J96.21 - Acute and chronic respiratory failure with hypoxia; J96.22 - Acute and chronic respiratory failure with hypercapnia Status: Acute Assessment and Plan: Acute on chronic respiratory failure secondary to COPD exacerbation.? Community-acquired pneumonia although chest x-ray is not suggestive and patient is low procalcitonin level. WBC elevated MRSA screen negative 06/28: Blood cultures negative x2 -Continue Rocephin and doxycycline (06/28) -DC vancomycin (06/29) -Continue bronchodilators, -continue Solu-Medrol 40 mg IV q.6 hours -ABG and chest x-ray reviewed, increased respiratory rate and decrease PEEP -07/01: ABGs improved this more. Patient did have high peak pressures, after switching her from propofol to fentanyl and Versed due to elevated triglycerides. She was started on Nimbex infusion which improved her oxygenation, respiratory status and improved air entry. 07/02: Remains on Nimbex, adequate air entry, peak pressures are within normal limits continue fentanyl Versed infusion for now (2) Acute exacerbation of chronic obstructive pulmonary disease: Code(s): J44.1 - Chronic obstructive pulmonary disease with (acute) exacerbation Status: Acute Assessment and Plan: Continue mechanical ventilation, bronchodilators, antibiotics, steroids (3) Elevated troponin: Code(s): R77.8 - Other specified abnormalities of plasma proteins Status: Acute Assessment and Plan: Patient has elevated troponin likely secondary to demand ischemia from acute respiratory failure. EKG reviewed and does not show any ST elevation. Patient does not have any documented history of coronary disease. Troponins trending down Continue aspirin 81 mg p.o. daily and statin Appreciate cardiology evaluation and recommendation Hold beta-mika due to sinus bradycardia while on sedation 06/29/2024: Echocardiogram Summary 1. The left ventricle is normal in size with thickened left ventricular rodríguez. The overall left ventricular systolic function appears preserved. Cannot rule out very mild hypokinesis of the apical wall. 2. The right ventricle is normal in size and systolic function. 3. The there is a small amount of pericardial effusion with no echocardiographic evidence of cardiac tamponade. (4) Hypothyroidism: Code(s): E03.9 - Hypothyroidism, unspecified Status: Acute Assessment and Plan: Continue levothyroxine. -TSH level - within normal limits (5) Electrolyte abnormality: Code(s): E87.8 - Other disorders of electrolyte and fluid balance, not elsewhere classified Status: Acute Assessment and Plan: Patient is hyperkalemic, was treated yesterday, potassium was normalized Plan DVT prophylaxis -Lovenox Stress ulcer prophylaxis -PPI Nutrition -tolerating tube feeds Code Status - Full Code Total Critical Care Time - 33 minutes Discussed with patient's and updated with patient's condition and plan of care. I answered all his questions Due to a high probability of clinically significant, life threatening deterioration, the patient required my highest level of preparedness to intervene emergently and I personally spent this critical care time directly and personally managing the patient. This critical care time included obtaining a history; examining the patient; pulse oximetry; ordering and review of studies; arranging urgent treatment with development of a management plan; evaluation of patient's response to treatment; frequent reassessment; and discussions with other providers. It was exclusive of separately billable procedures and treating other patients and teaching time. Please see Assessment and Plan section and the rest of the note for further information on patient assessment and treatment This dictation may have been done utilizing a voice recognition system. Attempts have been made to correct errors. However, there may be uncorrected grammatical, spelling, and recognitions errors present. Subjective Date/time seen: 07/02/24 14:06 Interval history: Reason for consult: COPD exacerbation, acute hypercapnic respiratory failure, NSTEMI with elevated troponin 07/02/2024: Patient seen and examined the ICU, remains intubated on CMV mode of ventilation, peep of 5, 35% FiO2. Sedated with fentanyl and Versed infusion. Patient was dyssynchronous with the ventilator on 07/01/2024 and was placed on Nimbex. Remains afebrile, adequate urine output, hemodynamically stable, white blood cell count trending down. Air entry is definitely improved this morning Review of Systems Review of Systems: ROS unobtainable: Yes unobtainable due to endotracheal tube, unobtainable due to medical condition and unobtainable due to mental status Exam Narrative: General: Pt is sedated and intubated and on mechanical ventilation Lungs/Chest: Trachea central, better air entry this morning, no wheezing or rales. Cardiac: RRR. Normal S1 S2. No murmurs Circulation: Pedal pulses are intact and symmetrical. Abdomen: Decreased bowel sounds. Obese. Soft. NT. ND. Extremities: No clubbing, cyanosis or edema. Warm : Godd[place] in place Neurologic: Intubated and sedated and paralyzed with Nimbex Objective Data Vital Signs Vital Signs: Vital Signs - 24 hr 07/01/24 14:16 07/01/24 14:31 07/01/24 14:35 Temperature Pulse Rate 70 70 76 Respiratory Rate 18 18 Blood Pressure 114/49 L Pulse Oximetry 98 Oxygen Delivery Mechanical Ventilation Fraction of Inspired Oxygen 40 07/01/24 14:38 07/01/24 15:08 07/01/24 16:00 Temperature Pulse Rate 73 68 72 Respiratory Rate 18 18 18 Blood Pressure 106/44 L Pulse Oximetry 98 Oxygen Delivery Mechanical Ventilation Fraction of Inspired Oxygen 35 07/01/24 16:00 07/01/24 16:00 07/01/24 16:00 Temperature 97.6 F Pulse Rate 66 68 Respiratory Rate 18 Blood Pressure 106/46 L Pulse Oximetry 98 Oxygen Delivery Fraction of Inspired Oxygen 35 07/01/24 16:00 07/01/24 16:41 07/01/24 18:00 Temperature 97.7 F Pulse Rate 65 64 69 Respiratory Rate 18 18 Blood Pressure 119/56 L Pulse Oximetry 96 97 Oxygen Delivery Mechanical Ventilation Fraction of Inspired Oxygen 35 07/01/24 18:00 07/01/24 18:00 07/01/24 18:29 Temperature Pulse Rate 68 68 66 Respiratory Rate 25 H 18 Blood Pressure 113/63 119/56 L Pulse Oximetry 94 Oxygen Delivery Fraction of Inspired Oxygen 07/01/24 20:00 07/01/24 20:00 07/01/24 20:00 Temperature Pulse Rate 67 67 67 Respiratory Rate 18 18 18 Blood Pressure Pulse Oximetry Oxygen Delivery Fraction of Inspired Oxygen 07/01/24 20:00 07/01/24 20:00 07/01/24 20:00 Temperature Pulse Rate 66 66 Respiratory Rate 18 Blood Pressure Pulse Oximetry 94 98 Oxygen Delivery Mechanical Ventilation Mechanical Ventilation Fraction of Inspired Oxygen 35 35 07/01/24 20:00 07/01/24 20:00 07/01/24 20:00 Temperature 97.1 F L Pulse Rate 66 66 Respiratory Rate 18 Blood Pressure 100/45 L Pulse Oximetry 95 Oxygen Delivery Fraction of Inspired Oxygen 35 07/01/24 20:06 07/01/24 20:20 07/01/24 21:58 Temperature Pulse Rate 69 66 70 Respiratory Rate 18 18 27 H Blood Pressure 100/45 L 93/42 L Pulse Oximetry 94 Oxygen Delivery Fraction of Inspired Oxygen 07/01/24 22:00 07/01/24 22:00 07/01/24 22:00 Temperature Pulse Rate 70 70 70 Respiratory Rate 18 18 Blood Pressure 110/45 L Pulse Oximetry 94 Oxygen Delivery Fraction of Inspired Oxygen 07/01/24 22:00 07/01/24 22:00 07/01/24 22:30 Temperature Pulse Rate 70 70 69 Respiratory Rate 18 18 Blood Pressure 110/45 L Pulse Oximetry 94 Oxygen Delivery Mechanical Ventilation Fraction of Inspired Oxygen 35 07/02/24 00:00 07/02/24 00:00 07/02/24 00:00 Temperature Pulse Rate 66 Respiratory Rate Blood Pressure Pulse Oximetry 98 Oxygen Delivery Mechanical Ventilation Fraction of Inspired Oxygen 35 35 07/02/24 00:00 07/02/24 00:00 07/02/24 00:00 Temperature 97.1 F L Pulse Rate 65 66 66 Respiratory Rate 18 18 18 Blood Pressure 103/45 L 103/45 L Pulse Oximetry 95 Oxygen Delivery Fraction of Inspired Oxygen 07/02/24 00:00 07/02/24 00:45 07/02/24 02:00 Temperature Pulse Rate 66 63 63 Respiratory Rate 18 18 Blood Pressure Pulse Oximetry Oxygen Delivery Fraction of Inspired Oxygen 07/02/24 02:00 07/02/24 02:00 07/02/24 02:00 Temperature Pulse Rate 63 63 63 Respiratory Rate 18 18 18 Blood Pressure 100/46 L 100/46 L Pulse Oximetry 95 Oxygen Delivery Fraction of Inspired Oxygen 07/02/24 02:00 07/02/24 02:06 07/02/24 02:06 Temperature Pulse Rate 63 69 62 Respiratory Rate 18 18 Blood Pressure Pulse Oximetry 94 Oxygen Delivery Mechanical Ventilation Fraction of Inspired Oxygen 35 07/02/24 02:14 07/02/24 03:30 07/02/24 03:55 Temperature Pulse Rate 62 64 65 Respiratory Rate 18 18 18 Blood Pressure Pulse Oximetry Oxygen Delivery Fraction of Inspired Oxygen 07/02/24 03:55 07/02/24 04:00 07/02/24 04:00 Temperature Pulse Rate 65 63 63 Respiratory Rate 18 18 18 Blood Pressure 110/40 L Pulse Oximetry Oxygen Delivery Fraction of Inspired Oxygen 07/02/24 04:00 07/02/24 04:00 07/02/24 04:00 Temperature Pulse Rate 63 Respiratory Rate 18 Blood Pressure Pulse Oximetry 97 Oxygen Delivery Mechanical Ventilation Fraction of Inspired Oxygen 35 35 07/02/24 04:00 07/02/24 04:00 07/02/24 04:15 Temperature 97.6 F Pulse Rate 65 65 65 Respiratory Rate 18 18 Blood Pressure 110/40 L 105/40 L Pulse Oximetry 97 Oxygen Delivery Fraction of Inspired Oxygen 07/02/24 04:30 07/02/24 04:52 07/02/24 06:00 Temperature Pulse Rate 66 65 65 Respiratory Rate 18 18 Blood Pressure 103/45 L Pulse Oximetry 95 Oxygen Delivery Mechanical Ventilation Fraction of Inspired Oxygen 35 07/02/24 06:00 07/02/24 06:00 07/02/24 06:00 Temperature Pulse Rate 65 63 63 Respiratory Rate 18 18 Blood Pressure 121/38 L Pulse Oximetry 96 Oxygen Delivery Fraction of Inspired Oxygen 07/02/24 06:10 07/02/24 06:10 07/02/24 07:49 Temperature Pulse Rate 64 64 63 Respiratory Rate 18 18 18 Blood Pressure 121/63 121/63 Pulse Oximetry Oxygen Delivery Fraction of Inspired Oxygen 07/02/24 07:54 07/02/24 07:56 07/02/24 08:00 Temperature Pulse Rate 65 64 64 Respiratory Rate 18 18 Blood Pressure Pulse Oximetry 96 Oxygen Delivery Mechanical Ventilation Fraction of Inspired Oxygen 35 07/02/24 08:00 07/02/24 08:00 07/02/24 08:00 Temperature 98.4 F Pulse Rate 64 64 Respiratory Rate 18 18 Blood Pressure 122/38 L Pulse Oximetry 93 Oxygen Delivery Fraction of Inspired Oxygen 35 07/02/24 08:00 07/02/24 08:00 07/02/24 08:15 Temperature Pulse Rate 67 64 Respiratory Rate 18 Blood Pressure 122/38 L Pulse Oximetry 93 Oxygen Delivery Mechanical Ventilation Fraction of Inspired Oxygen 35 07/02/24 08:30 07/02/24 10:00 07/02/24 10:00 Temperature Pulse Rate 78 82 82 Respiratory Rate 18 18 18 Blood Pressure 144/42 H Pulse Oximetry Oxygen Delivery Fraction of Inspired Oxygen 07/02/24 10:00 07/02/24 10:00 07/02/24 11:00 Temperature 98.8 F Pulse Rate 83 82 80 Respiratory Rate 18 18 Blood Pressure 136/46 L 131/46 L Pulse Oximetry 92 Oxygen Delivery Fraction of Inspired Oxygen 07/02/24 11:15 07/02/24 11:30 07/02/24 11:30 Temperature Pulse Rate 76 Respiratory Rate 18 Blood Pressure 115/42 L Pulse Oximetry 95 Oxygen Delivery Mechanical Ventilation Fraction of Inspired Oxygen 30 30 07/02/24 11:34 07/02/24 11:53 07/02/24 11:56 Temperature Pulse Rate 78 Respiratory Rate Blood Pressure Pulse Oximetry 92 87 L Oxygen Delivery Mechanical Ventilation Mechanical Ventilation Fraction of Inspired Oxygen 35 35 35 07/02/24 12:00 07/02/24 12:00 07/02/24 12:00 Temperature Pulse Rate 74 74 74 Respiratory Rate 18 18 Blood Pressure Pulse Oximetry Oxygen Delivery Fraction of Inspired Oxygen 07/02/24 12:00 07/02/24 12:00 07/02/24 13:30 Temperature 98.1 F Pulse Rate 74 74 71 Respiratory Rate 18 18 18 Blood Pressure 128/43 L 128/43 L Pulse Oximetry 96 Oxygen Delivery Fraction of Inspired Oxygen 07/02/24 13:33 07/02/24 13:41 Temperature Pulse Rate 71 71 Respiratory Rate 18 Blood Pressure Pulse Oximetry 92 Oxygen Delivery Mechanical Ventilation Fraction of Inspired Oxygen 35 Intake/Output Intake/Output: Intake & Output 06/29/24 06/30/24 07/01/24 07/02/24 23:59 23:59 23:59 23:59 Intake Total 3455.5 1845.4 1734.6 938.7 Output Total 1100 1900 1000 425 Balance 2355.5 -54.6 734.6 513.7 Meds/Results Medications: Active Medications Generic Name Dose Route Start Last Admin Trade Name Freq PRN Reason Stop Dose Admin Albuterol/Ipratropium 3 ml 06/29/24 02:00 07/02/24 13:28 Ipratropium 0.5 Mg/Albuterol Sulfate 2.5 Mg Ampul.Neb 3 Ml INHALATION 3 ml Q6HRT BARBARA Administration Aspirin 81 mg 07/01/24 08:00 07/02/24 08:18 Aspirin 81 Mg Chewable Tablet PO 81 mg DAILY@0800 BARBARA Administration Atorvastatin Calcium 40 mg 06/29/24 09:00 07/02/24 08:18 Atorvastatin 40 Mg Tablet PO 40 mg DAILY BARBARA Administration Dextrose 12.5 gm 06/29/24 08:08 Dextrose 50% 25 Gm/50 Ml Syringe IV PUSH PRN PRN Hypoglycemia Protocol Enoxaparin Sodium 40 mg 06/29/24 09:00 07/02/24 08:19 Enoxaparin 40 Mg/0.4 Ml Syringe SUB-Q 40 mg DAILY BARBARA Administration Glucagon 1 mg 06/29/24 08:08 Glucagon For Inj 1 Mg Vial IM PRN PRN Hypoglycemia Protocol Glucose 15 gm 06/29/24 08:08 Glucose Oral Gel 15 Gm Of Glucse In 37.5 Gm Tube PO PRN PRN Hypoglycemia Protocol Ceftriaxone Sodium 2 gm in 100 mls @ 200 mls/hr 06/28/24 20:00 07/01/24 22:00 Rocephin 2 Gm/Ns 100 Ml IVPB Infused Q24H BARBARA Infusion Propofol 100 mls @ 0 mls/hr 06/29/24 04:30 07/01/24 20:00 Diprivan IV CONT Infused .Q0M BARBARA Titration Protocol Doxycycline Hyclate 100 mg in 100 mls @ 100 mls/hr 06/28/24 23:00 07/02/24 11:29 Vibramycin 100 Mg/Ns 100 Ml IVPB 07/03/24 22:59 Infused Q12H BARBARA Infusion Dextrose 1,000 mls @ 100 mls/hr 06/29/24 08:08 Dextrose 5% 1,000 Ml IVPB PRN PRN Hypoglycemia Protocol Fentanyl Citrate 2,500 mcg in 250 mls @ 12.5 mls/hr 07/01/24 08:50 07/02/24 12:00 Fentanyl 2,500 Mcg/Ns 250 Ml IV CONT 125 mcg/hr .Q20H BARBARA 12.5 mls/hr Titration Protocol 125 MCG/HR Midazolam HCl 100 mg in 100 mls @ 1 mls/hr 07/01/24 08:50 07/02/24 12:00 Versed 100 Mg/Ns 100 Ml IV CONT 1 mg/hr .Q72H BARBARA 1 mls/hr Titration Protocol 1 MG/HR Cisatracurium Besylate 200 mg/ 100 mls @ 3.87 mls/hr 07/01/24 12:50 07/02/24 12:00 Dextrose IV CONT 2 mcg/kg/min .[id number] BARBARA 3.87 mls/hr Titration Protocol 2 MCG/KG/MIN Insulin Aspart 3 - 6 units 06/29/24 12:00 07/02/24 11:30 Insulin Aspart (*Bkc) 100 Units/Ml SUB-Q Not Given Q6HR [facility] Protocol Levothyroxine Sodium 50 mcg 06/30/24 06:30 07/02/24 05:09 Levothyroxine Sodium 50 Mcg Tablet FEED TUBE 50 mcg DAILY@0630 BARBARA Administration Methylprednisolone Sodium Succinate 40 mg 06/30/24 12:00 07/02/24 11:21 Methylprednisolone Sod Succ 40 Mg Vial IV PUSH 40 mg Q6HR BARBARA Administration Multi-Ingred Cream/Lotion/Oil/Oint 1 applic 06/29/24 09:00 07/02/24 08:19 Mineral Oil/White Petrolatum Ointment EACH EYE 1 applic Q12HR BARBARA Administration Multi-Ingred Cream/Lotion/Oil/Oint 1 applic 07/01/24 09:00 07/02/24 08:19 Mineral Oil/White Petrolatum Ointment EACH EYE 1 applic Q12HR BARBARA Administration Pantoprazole Sodium 40 mg 06/29/24 09:00 07/02/24 08:16 Pantoprazole Sodium Iv 40 Mg Vial IV PUSH 40 mg DAILY BARBARA Administration Sodium Chloride 10 ml 06/29/24 14:00 07/02/24 05:09 Central Line Flush IV PUSH 10 ml Q8HR BARBARA Administration Sodium Chloride 10 ml 06/29/24 12:40 Central Line Flush IV PUSH PRN PRN with TPN bag changes Sodium Chloride 20 ml 06/29/24 12:40 Central Line Flush IV PUSH PRN PRN after blood draws Radiology Results: ITS Impressions Abdomen X-Ray 06/28/24 20:03 IMPRESSION: Nasogastric tube in good position and ready for immediate use. Chest X-Ray 07/02/24 06:51 Impression: COPD. Questionable focal retrocardiac pneumonia. Linear right basilar scarring. Support tubes, as above. Labs Labs: Laboratory Results - last 24 hr 07/01/24 07/01/24 07/02/24 17:06 23:36 04:52 WBC RBC Hgb Hct MCV MCH MCHC RDW Plt Count MPV Puncture Site Right radial ABG pH 7.350 ABG pCO2 40.2 ABG pO2 71.6 L ABG PO2/FiO2 Ratio 2.05 ABG HCO3 21.7 L ABG O2 Saturation 93.7 L ABG O2 Content 14.7 L ABG Base Excess -3.6 A-a Gradient 131.2 Oxyhemoglobin 93.7 Carboxyhemoglobin 0.6 Methemoglobin 0.3 Reduced Hemoglobin 5.4 H Total Hemoglobin 11.1 L O2 Delivery Device Ventilator O2 Liters/Min Not Reportable Minute Volume Not Reportable Vent Rate 18 Vent Mode Cmv FiO2 35 Tidal Volume 400 PEEP 5 Peak Inspir Pressure Not Reportable Pressure Support Not Reportable Sodium Potassium Chloride Carbon Dioxide Anion Gap BUN Creatinine Estim Creat Clear Calc Estimated GFR Glucose POC Capillary Glucose 168 H 173 H Calcium Phosphorus Magnesium Total Bilirubin AST ALT Alkaline Phosphatase Total Protein Albumin Triglycerides 07/02/24 07/02/24 07/02/24 05:15 08:08 09:09 WBC 14.5 H RBC 3.55 L Hgb 10.0 L Hct 32.9 L MCV 92.7 MCH 28.2 MCHC 30.4 L RDW 18.4 H Plt Count 314 MPV 10.8 H Puncture Site ABG pH ABG pCO2 ABG pO2 ABG PO2/FiO2 Ratio ABG HCO3 ABG O2 Saturation ABG O2 Content ABG Base Excess A-a Gradient Oxyhemoglobin Carboxyhemoglobin Methemoglobin Reduced Hemoglobin Total Hemoglobin O2 Delivery Device O2 Liters/Min Minute Volume Vent Rate Vent Mode FiO2 Tidal Volume PEEP Peak Inspir Pressure Pressure Support Sodium 146 H 148 H Potassium 5.2 H 4.6 Chloride 113 H 112 H Carbon Dioxide 28 26 Anion Gap 5 10 BUN 46 H 48 H Creatinine 1.06 H 1.05 H Estim Creat Clear Calc 36 37 Estimated GFR > 60 > 60 Glucose 190 H 238 H POC Capillary Glucose 188 H Calcium 7.7 L 7.7 L Phosphorus 3.2 Magnesium 2.4 H Total Bilirubin 0.3 AST 32 ALT 37 H Alkaline Phosphatase 87 Total Protein 6.0 L Albumin 3.3 L Triglycerides 120 07/02/24 11:29 WBC RBC Hgb Hct MCV MCH MCHC RDW Plt Count MPV Puncture Site ABG pH ABG pCO2 ABG pO2 ABG PO2/FiO2 Ratio ABG HCO3 ABG O2 Saturation ABG O2 Content ABG Base Excess A-a Gradient Oxyhemoglobin Carboxyhemoglobin Methemoglobin Reduced Hemoglobin Total Hemoglobin O2 Delivery Device O2 Liters/Min Minute Volume Vent Rate Vent Mode FiO2 Tidal Volume PEEP Peak Inspir Pressure Pressure Support Sodium Potassium Chloride Carbon Dioxide Anion Gap BUN Creatinine Estim Creat Clear Calc Estimated GFR Glucose POC Capillary Glucose 160 H Calcium Phosphorus Magnesium Total Bilirubin AST ALT Alkaline Phosphatase Total Protein Albumin Triglycerides Quality VTE Prophylaxis VTE prophylaxis: pharmacologic ordered
[2024-07-02 18:07] LABS: Glucose Point of Care 181 mg/dl (65-105)
[2024-07-02 18:29] LABS: Glucose Point of Care 187 mg/dl (65-105)
[2024-07-02] MEDS: cefTRIAXone 2 GM/NS 100 ML 2 GM/100 ML BAG IVPB (20:37)
[2024-07-02] MEDS: CISATRACURIUM BESYLATE 200 MG in DEXTROSE 5% 80 ML IV CONT (23:12)
[2024-07-02 23:33] LABS: Glucose Point of Care 193 mg/dl (65-105)
[2024-07-03] VITALS (32 sets, daily range): BP systolic 94–150; BP diastolic 56–86; PULSE 69–83; RESP 13–20; TEMP 36.2–37.2; O2SAT 89–98
[2024-07-03] MEDS: FENTANYL 2,500MCG/NS250ML(*CRX 2,500 MCG/250 ML BAG 12.5 MCG IV CONT ×2 (00:55→22:56)
[2024-07-03] MEDS: IPRATROPIUM 0.5 MG/ALBUTEROL SULFATE 2.5 MG AMPUL.NEB 3 ML INHALATION ×4 (02:19→20:21)
[2024-07-03] MEDS: CENTRAL LINE FLUSH 10 ML IV PUSH ×3 (04:34→20:50)
[2024-07-03] MEDS: methylPREDNISolone SOD SUCC 40 MG VIAL IV PUSH ×3 (04:34→17:18)
[2024-07-03] MEDS: MIDAZOLAM 100MG/NS 100ML(*CRX) 100 MG/100 ML BAG IV CONT (04:35)
[2024-07-03] MEDS: LEVOTHYROXINE SODIUM 50 MCG TABLET FEED TUBE (04:36)
[2024-07-03 04:55] LABS: Alveolar/Arterial O2 Gradient 128.1 mmHg; Base Excess ABG 0.3 mEq/l (+/-2.0); Carboxyhemoglobin 0.5 % THb (0-2.0); Fractional Inspired Oxygen 35 %; HCO3 ABG 26.6 mEq/l (22.0-26.0); Methemoglobin ABG 0.3 %THb (0-1.5); Oxygen Content ABG 14.2 %vol (16.0-22.0); Oxyhemoglobin 89.9 % THb (90.0-100.0); PCO2 ABG 51.1 mmHg (35.0-45.0); PO2 FiO2 Ratio Arterial Blood 1.77 %; Reduced Hemoglobin 9.3 %THb (0-5.0); Total Hemoglobin 11.2 g/dL (12.0-18.0); pH ABG 7.335 (7.350-7.450)
[2024-07-03 04:56] LABS: Arterial Blood Gas Vent Mode CMV; Arterial Blood Gas Ventilator rate 18 /MIN; Device VENTILATOR; Modified Allen's Test Unable to perform; Site Drawn RIGHT RADIAL
[2024-07-03 04:57] LABS: Arterial Blood Gas PEEP 5 cmH2O; Arterial Blood Gas Tidal Volume 400 ml
[2024-07-03 05:03] LABS: Hematocrit 34.2 % (37.0-47.0); Hemoglobin 10.1 g/dL (12.0-15.0); Mean Corpuscular HGB Conc 29.5 g/dl (32-36); Mean Corpuscular Hemoglobin 27.7 pg (26-34); Mean Corpuscular Volume 93.7 fl (80-100); Mean Platelet Volume 11.1 fl (7.4-10.4); Platelet Count Result 306 k/mm3 (150-375); Red Blood Count 3.65 M/mm3 (4.2-5.4); Red Cell Distribution Width 18.4 % (11.5-14.5); White Blood Count 15.2 K/mm3 (4.5-10.0)
[2024-07-03 05:24] LABS: Alanine Aminotransferase 43 U/L (6-35); Albumin Level 2.9 g/dL (3.5-5.1); Alkaline Phosphatase 77 U/L (38-126); Anion Gap 6 mmol/L (4-12); Aspartate Amino Transferase 77 U/L (14-36); Bilirubin,Total 0.3 mg/dL (0.2-1.3); Blood Urea Nitrogen 51 mg/dL (7-17); Calcium 7.3 mg/dL (8.4-10.2); Carbon Dioxide 29 mmol/L (22-30); Chloride 110 mmol/L (98-107); Estimated CRCL calculation 38 ml/min; Estimated Glomerular Filt Rate > 60; Glucose 221 mg/dL (65-110); Magnesium 2.4 mg/dL (1.6-2.3); Phosphorus 3.4 mg/dL (2.5-4.5); Potassium 5.2 mmol/L (3.4-5.0); Sodium 145 mmol/L (137-145)
[2024-07-03 05:28] LABS: Triglycerides 123 mg/dL (<150)
[2024-07-03] MEDS: INSULIN ASPART (*BKC) 100 UNITS/ML SUB-Q (06:35)
[2024-07-03] MEDS: ATORVASTATIN 40 MG TABLET PO (07:47)
[2024-07-03] MEDS: ASPIRIN 81 MG CHEWABLE TABLET PO (07:47)
[2024-07-03] MEDS: SODIUM ZIRCONIUM CYCLOSILICATE 10 GM POWD.PACK PO (07:47)
[2024-07-03] MEDS: DEXTROSE 50% 25 GM/50 ML SYRINGE IV PUSH (07:52)
[2024-07-03] MEDS: INSULIN HUMAN REGULAR (*BKC) 100 UNITS/ML 10 UNITS IV PUSH (07:53)
[2024-07-03] MEDS: ENOXAPARIN 40 MG/0.4 ML SYRINGE SUB-Q (07:53)
[2024-07-03] MEDS: PANTOPRAZOLE SODIUM IV 40 MG VIAL IV PUSH (08:04)
[2024-07-03] MEDS: MINERAL OIL/WHITE PETROLATUM OINTMENT 1 APPLIC EACH EYE ×2 (08:04→20:49)
[2024-07-03 08:06] LABS: Glucose Point of Care 210 mg/dl (65-105)
[2024-07-03] MEDS: ALBUTEROL SULFATE NEB 2.5 MG/3 ML INH 10 MG INHALATION (08:34)
[2024-07-03 08:59] LABS: Hepatitis B Surface Antigen Negative (Negative)
[2024-07-03 09:04] LABS: HAV RESULT Negative (Negative); Hepatitis B Core IgM Result Negative (Negative)
[2024-07-03 09:16] LABS: Hepatitis C Virus Antibody Negative (Negative)
--- NOTE | 2024-07-03 09:21 | WPDINTPN ---
Progress Note: A&P Assessment and Plan (1) Acute on chronic respiratory failure with hypoxia and hypercapnia: Code(s): J96.21 - Acute and chronic respiratory failure with hypoxia; J96.22 - Acute and chronic respiratory failure with hypercapnia Status: Acute Assessment and Plan: Acute on chronic respiratory failure secondary to COPD exacerbation.? Community-acquired pneumonia although chest x-ray is not suggestive and patient is low procalcitonin level. WBC elevated MRSA screen negative 06/28: Blood cultures negative x2 -Continue Rocephin and doxycycline (06/28) -DC vancomycin (06/29) -Continue bronchodilators, -continue Solu-Medrol 40 mg IV q.6 hours -ABG and chest x-ray reviewed, increased respiratory rate and decrease PEEP -07/01: ABGs improved this more. Patient did have high peak pressures, after switching her from propofol to fentanyl and Versed due to elevated triglycerides. She was started on Nimbex infusion which improved her oxygenation, respiratory status and improved air entry. 07/03: Remains on Nimbex, adequate air entry, peak pressures are within normal limits continue fentanyl Versed infusion for now, will start weaning Nimbex, will maintain RASS of 0 to -2 on sedation meds (2) Acute exacerbation of chronic obstructive pulmonary disease: Code(s): J44.1 - Chronic obstructive pulmonary disease with (acute) exacerbation Status: Acute Assessment and Plan: Continue mechanical ventilation, bronchodilators, antibiotics, steroids (3) Elevated troponin: Code(s): R77.8 - Other specified abnormalities of plasma proteins Status: Acute Assessment and Plan: Patient has elevated troponin likely secondary to demand ischemia from acute respiratory failure. EKG reviewed and does not show any ST elevation. Patient does not have any documented history of coronary disease. Troponins trending down Continue aspirin 81 mg p.o. daily and statin Appreciate cardiology evaluation and recommendation Hold beta-mika due to sinus bradycardia while on sedation 06/29/2024: Echocardiogram Summary 1. The left ventricle is normal in size with thickened left ventricular rodríguez. The overall left ventricular systolic function appears preserved. Cannot rule out very mild hypokinesis of the apical wall. 2. The right ventricle is normal in size and systolic function. 3. The there is a small amount of pericardial effusion with no echocardiographic evidence of cardiac tamponade. (4) Hypothyroidism: Code(s): E03.9 - Hypothyroidism, unspecified Status: Acute Assessment and Plan: Continue levothyroxine. -TSH level - within normal limits (5) Electrolyte abnormality: Code(s): E87.8 - Other disorders of electrolyte and fluid balance, not elsewhere classified Status: Acute Assessment and Plan: Patient hyperkalemic, will treat with insulin, D50, Lokelma and albuterol nebs Plan DVT prophylaxis -Lovenox Stress ulcer prophylaxis -PPI Nutrition -tolerating tube feeds Code Status - Full Code Total Critical Care Time - 32 minutes Discussed with patient's and updated with patient's condition and plan of care. I answered all his questions Due to a high probability of clinically significant, life threatening deterioration, the patient required my highest level of preparedness to intervene emergently and I personally spent this critical care time directly and personally managing the patient. This critical care time included obtaining a history; examining the patient; pulse oximetry; ordering and review of studies; arranging urgent treatment with development of a management plan; evaluation of patient's response to treatment; frequent reassessment; and discussions with other providers. It was exclusive of separately billable procedures and treating other patients and teaching time. Please see Assessment and Plan section and the rest of the note for further information on patient assessment and treatment This dictation may have been done utilizing a voice recognition system. Attempts have been made to correct errors. However, there may be uncorrected grammatical, spelling, and recognitions errors present. Subjective Date/time seen: 07/03/24 09:21 Interval history: Reason for consult: COPD exacerbation, acute hypercapnic respiratory failure, NSTEMI with elevated troponin 07/03/2024: Patient seen and examined in the ICU, remains intubated on CMV mode of ventilation, peep of 5, 35% FiO2. Sedated with fentanyl and Versed infusion, also on Nimbex infusion for ventilator synchrony. Afebrile, adequate urine output, hemodynamically stable, tolerating tube feeds significantly improved air entry bilaterally this morning Review of Systems Review of Systems: ROS unobtainable: Yes unobtainable due to endotracheal tube, unobtainable due to medical condition and unobtainable due to mental status Exam Narrative: General: Pt is sedated and intubated and on mechanical ventilation Lungs/Chest: Trachea central, better air entry this morning, no wheezing or rales. Cardiac: RRR. Normal S1 S2. No murmurs Circulation: Pedal pulses are intact and symmetrical. Abdomen: Decreased bowel sounds. Obese. Soft. NT. ND. Extremities: No clubbing, cyanosis or edema. Warm : [place] in place Neurologic: Intubated and sedated and paralyzed with Nimbex Objective Data Vital Signs Vital Signs: Vital Signs - 24 hr 07/02/24 10:00 07/02/24 10:00 07/02/24 10:00 Temperature Pulse Rate 82 82 83 Respiratory Rate 18 18 Blood Pressure Pulse Oximetry Oxygen Delivery Fraction of Inspired Oxygen 07/02/24 10:00 07/02/24 11:00 07/02/24 11:15 Temperature 98.8 F Pulse Rate 82 80 76 Respiratory Rate 18 18 18 Blood Pressure 136/46 L 131/46 L 115/42 L Pulse Oximetry 92 Oxygen Delivery Fraction of Inspired Oxygen 07/02/24 11:30 07/02/24 11:30 07/02/24 11:34 Temperature Pulse Rate 78 Respiratory Rate Blood Pressure Pulse Oximetry 95 92 Oxygen Delivery Mechanical Ventilation Mechanical Ventilation Fraction of Inspired Oxygen 30 30 35 07/02/24 11:53 07/02/24 11:56 07/02/24 12:00 Temperature Pulse Rate 74 Respiratory Rate Blood Pressure Pulse Oximetry 87 L Oxygen Delivery Mechanical Ventilation Fraction of Inspired Oxygen 35 35 07/02/24 12:00 07/02/24 12:00 07/02/24 12:00 Temperature Pulse Rate 74 74 74 Respiratory Rate 18 18 18 Blood Pressure 128/43 L Pulse Oximetry Oxygen Delivery Fraction of Inspired Oxygen 07/02/24 12:00 07/02/24 13:30 07/02/24 13:33 Temperature 98.1 F Pulse Rate 74 71 71 Respiratory Rate 18 18 Blood Pressure 128/43 L Pulse Oximetry 96 92 Oxygen Delivery Mechanical Ventilation Fraction of Inspired Oxygen 35 07/02/24 13:41 07/02/24 14:00 07/02/24 14:00 Temperature Pulse Rate 71 73 73 Respiratory Rate 18 18 18 Blood Pressure 135/41 L Pulse Oximetry Oxygen Delivery Fraction of Inspired Oxygen 07/02/24 14:00 07/02/24 14:00 07/02/24 14:00 Temperature Pulse Rate 73 73 73 Respiratory Rate 18 18 Blood Pressure 135/41 L Pulse Oximetry 92 Oxygen Delivery Fraction of Inspired Oxygen 07/02/24 15:02 07/02/24 15:02 07/02/24 16:00 Temperature Pulse Rate 72 Respiratory Rate Blood Pressure Pulse Oximetry 94 Oxygen Delivery Mechanical Ventilation Fraction of Inspired Oxygen 35 35 07/02/24 16:00 07/02/24 16:00 07/02/24 16:00 Temperature Pulse Rate 72 72 72 Respiratory Rate 18 18 18 Blood Pressure 118/50 L Pulse Oximetry Oxygen Delivery Fraction of Inspired Oxygen 07/02/24 16:00 07/02/24 17:07 07/02/24 18:00 Temperature 98.2 F Pulse Rate 72 71 74 Respiratory Rate 18 18 Blood Pressure 118/50 L 122/58 L Pulse Oximetry 93 93 Oxygen Delivery Mechanical Ventilation Fraction of Inspired Oxygen 35 07/02/24 18:00 07/02/24 18:00 07/02/24 18:00 Temperature Pulse Rate 74 74 74 Respiratory Rate 18 18 Blood Pressure Pulse Oximetry Oxygen Delivery Fraction of Inspired Oxygen 07/02/24 18:00 07/02/24 20:00 07/02/24 20:00 Temperature Pulse Rate 74 76 76 Respiratory Rate 18 18 18 Blood Pressure 122/58 L 128/57 L Pulse Oximetry 91 Oxygen Delivery Fraction of Inspired Oxygen 07/02/24 20:00 07/02/24 20:00 07/02/24 20:00 Temperature Pulse Rate 76 Respiratory Rate 18 Blood Pressure Pulse Oximetry 92 Oxygen Delivery Mechanical Ventilation Fraction of Inspired Oxygen 35 35 07/02/24 20:00 07/02/24 20:00 07/02/24 20:25 Temperature 98.0 F Pulse Rate 75 75 75 Respiratory Rate 18 Blood Pressure 128/57 L Pulse Oximetry 92 91 Oxygen Delivery Mechanical Ventilation Fraction of Inspired Oxygen 35 07/02/24 20:31 07/02/24 20:37 07/02/24 22:00 Temperature Pulse Rate 77 75 79 Respiratory Rate 18 18 18 Blood Pressure 141/69 H Pulse Oximetry Oxygen Delivery Fraction of Inspired Oxygen 07/02/24 22:00 07/02/24 22:00 07/02/24 22:00 Temperature Pulse Rate 79 79 79 Respiratory Rate 18 18 Blood Pressure Pulse Oximetry Oxygen Delivery Fraction of Inspired Oxygen 07/02/24 22:00 07/02/24 23:12 07/02/24 23:12 Temperature Pulse Rate 79 78 78 Respiratory Rate 18 18 18 Blood Pressure 141/69 H 130/75 130/75 Pulse Oximetry 91 Oxygen Delivery Fraction of Inspired Oxygen 07/02/24 23:27 07/03/24 00:00 07/03/24 00:00 Temperature Pulse Rate 77 Respiratory Rate Blood Pressure Pulse Oximetry 94 91 Oxygen Delivery Mechanical Ventilation Mechanical Ventilation Fraction of Inspired Oxygen 35 35 35 07/03/24 00:00 07/03/24 00:00 07/03/24 00:55 Temperature 98.9 F Pulse Rate 76 76 76 Respiratory Rate 18 18 Blood Pressure 127/58 L Pulse Oximetry 91 Oxygen Delivery Fraction of Inspired Oxygen 07/03/24 00:55 07/03/24 00:55 07/03/24 00:55 Temperature Pulse Rate 76 76 76 Respiratory Rate 18 18 13 Blood Pressure 127/58 L Pulse Oximetry Oxygen Delivery Fraction of Inspired Oxygen 07/03/24 00:55 07/03/24 00:57 07/03/24 02:00 Temperature Pulse Rate 76 77 77 Respiratory Rate 18 18 Blood Pressure 127/58 L 132/56 L Pulse Oximetry Oxygen Delivery Fraction of Inspired Oxygen 07/03/24 02:00 07/03/24 02:00 07/03/24 02:00 Temperature Pulse Rate 77 77 77 Respiratory Rate 18 18 18 Blood Pressure 133/75 133/75 Pulse Oximetry 93 Oxygen Delivery Fraction of Inspired Oxygen 07/03/24 02:00 07/03/24 02:15 07/03/24 02:23 Temperature Pulse Rate 77 75 75 Respiratory Rate 18 18 Blood Pressure Pulse Oximetry 93 Oxygen Delivery Mechanical Ventilation Fraction of Inspired Oxygen 35 07/03/24 03:46 07/03/24 03:59 07/03/24 04:00 Temperature Pulse Rate 70 Respiratory Rate Blood Pressure Pulse Oximetry 95 Oxygen Delivery Mechanical Ventilation Fraction of Inspired Oxygen 35 35 07/03/24 04:00 07/03/24 04:00 07/03/24 04:00 Temperature 97.9 F Pulse Rate 70 70 70 Respiratory Rate 18 18 18 Blood Pressure 103/66 103/66 Pulse Oximetry 94 Oxygen Delivery Fraction of Inspired Oxygen 07/03/24 04:00 07/03/24 04:35 07/03/24 04:35 Temperature Pulse Rate 70 70 70 Respiratory Rate 18 18 18 Blood Pressure Pulse Oximetry Oxygen Delivery Fraction of Inspired Oxygen 07/03/24 04:59 07/03/24 06:00 07/03/24 06:00 Temperature Pulse Rate 69 70 70 Respiratory Rate 18 18 Blood Pressure 114/65 Pulse Oximetry 95 Oxygen Delivery Mechanical Ventilation Fraction of Inspired Oxygen 35 07/03/24 06:00 07/03/24 06:00 07/03/24 06:00 Temperature Pulse Rate 70 70 70 Respiratory Rate 18 18 Blood Pressure 114/65 Pulse Oximetry 94 Oxygen Delivery Fraction of Inspired Oxygen 07/03/24 07:30 07/03/24 08:00 07/03/24 08:00 Temperature 97.8 F Pulse Rate 70 70 70 Respiratory Rate 18 20 Blood Pressure 109/65 134/65 Pulse Oximetry 96 Oxygen Delivery Fraction of Inspired Oxygen 07/03/24 08:00 07/03/24 08:00 07/03/24 08:00 Temperature Pulse Rate 70 70 70 Respiratory Rate 20 20 20 Blood Pressure 134/65 Pulse Oximetry Oxygen Delivery Fraction of Inspired Oxygen 07/03/24 08:46 07/03/24 08:47 Temperature Pulse Rate 72 73 Respiratory Rate 14 Blood Pressure Pulse Oximetry 95 Oxygen Delivery Mechanical Ventilation Fraction of Inspired Oxygen 35 Intake/Output Intake/Output: Intake & Output 06/30/24 07/01/24 07/02/24 07/03/24 23:59 23:59 23:59 23:59 Intake Total 1845.4 1734.6 1994.6 799.4 Output Total 1900 1000 975 550 Balance -54.6 734.6 1019.6 249.4 Meds/Results Medications: Active Medications Generic Name Dose Route Start Last Admin Trade Name Freq PRN Reason Stop Dose Admin Albuterol/Ipratropium 3 ml 06/29/24 02:00 07/03/24 08:27 Ipratropium 0.5 Mg/Albuterol Sulfate 2.5 Mg Ampul.Neb 3 Ml INHALATION 3 ml Q6HRT BARBARA Administration Aspirin 81 mg 07/01/24 08:00 07/03/24 07:47 Aspirin 81 Mg Chewable Tablet PO 81 mg DAILY@0800 ABRBARA Administration Atorvastatin Calcium 40 mg 06/29/24 09:00 07/03/24 07:47 Atorvastatin 40 Mg Tablet PO 40 mg DAILY BARBARA Administration Dextrose 12.5 gm 06/29/24 08:08 Dextrose 50% 25 Gm/50 Ml Syringe IV PUSH PRN PRN Hypoglycemia Protocol Enoxaparin Sodium 40 mg 06/29/24 09:00 07/03/24 07:53 Enoxaparin 40 Mg/0.4 Ml Syringe SUB-Q 40 mg DAILY BARBARA Administration Glucagon 1 mg 06/29/24 08:08 Glucagon For Inj 1 Mg Vial IM PRN PRN Hypoglycemia Protocol Glucose 15 gm 06/29/24 08:08 Glucose Oral Gel 15 Gm Of Glucse In 37.5 Gm Tube PO PRN PRN Hypoglycemia Protocol Ceftriaxone Sodium 2 gm in 100 mls @ 200 mls/hr 06/28/24 20:00 07/02/24 22:00 Rocephin 2 Gm/Ns 100 Ml IVPB Infused Q24H BARBARA Infusion Doxycycline Hyclate 100 mg in 100 mls @ 100 mls/hr 06/28/24 23:00 07/02/24 23:55 Vibramycin 100 Mg/Ns 100 Ml IVPB 07/03/24 22:59 Infused Q12H BARBARA Infusion Dextrose 1,000 mls @ 100 mls/hr 06/29/24 08:08 Dextrose 5% 1,000 Ml IVPB PRN PRN Hypoglycemia Protocol Fentanyl Citrate 2,500 mcg in 250 mls @ 12.5 mls/hr 07/01/24 08:50 07/03/24 08:00 Fentanyl 2,500 Mcg/Ns 250 Ml IV CONT 125 mcg/hr .Q20H BARBARA 12.5 mls/hr Titration Protocol 125 MCG/HR Midazolam HCl 100 mg in 100 mls @ 2 mls/hr 07/01/24 08:50 07/03/24 08:00 Versed 100 Mg/Ns 100 Ml IV CONT 2 mg/hr .Q50H BARBARA 2 mls/hr Titration Protocol 2 MG/HR Cisatracurium Besylate 200 mg/ 100 mls @ 5.805 mls/hr 07/01/24 12:50 07/03/24 08:00 Dextrose IV CONT 3 mcg/kg/min .[id number] BARBARA 5.81 mls/hr Titration Protocol 3 MCG/KG/MIN Insulin Aspart 3 - 6 units 06/29/24 12:00 07/03/24 06:35 Insulin Aspart (*Bkc) 100 Units/Ml SUB-Q 3 units Q6HR BARBARA Administration Protocol Levothyroxine Sodium 50 mcg 06/30/24 06:30 07/03/24 04:36 Levothyroxine Sodium 50 Mcg Tablet FEED TUBE 50 mcg DAILY@0630 BARBARA Administration Methylprednisolone Sodium Succinate 40 mg 06/30/24 12:00 07/03/24 04:34 Methylprednisolone Sod Succ 40 Mg Vial IV PUSH 40 mg Q6HR BARBARA Administration Multi-Ingred Cream/Lotion/Oil/Oint 1 applic 06/29/24 09:00 07/03/24 08:04 Mineral Oil/White Petrolatum Ointment EACH EYE 1 applic Q12HR BARBARA Administration Multi-Ingred Cream/Lotion/Oil/Oint 1 applic 07/01/24 09:00 07/03/24 08:04 Mineral Oil/White Petrolatum Ointment EACH EYE Not Given Q12HR BARBARA Pantoprazole Sodium 40 mg 06/29/24 09:00 07/02/24 08:16 Pantoprazole Sodium Iv 40 Mg Vial IV PUSH 40 mg DAILY BARBARA Administration Sodium Chloride 10 ml 06/29/24 14:00 07/03/24 04:34 Central Line Flush IV PUSH 10 ml Q8HR BARBARA Administration Sodium Chloride 10 ml 06/29/24 12:40 Central Line Flush IV PUSH PRN PRN with TPN bag changes Sodium Chloride 20 ml 06/29/24 12:40 Central Line Flush IV PUSH PRN PRN after blood draws Sodium Zirconium Cyclosilicate 10 gm 07/03/24 07:34 07/03/24 07:47 Sodium Zirconium Cyclosilicate 10 Gm Powd.Pack PO 10 gm DAILY BARBARA Administration Radiology Results: ITS Impressions Abdomen X-Ray 06/28/24 20:03 IMPRESSION: Nasogastric tube in good position and ready for immediate use. Chest X-Ray 07/03/24 06:59 Impression: COPD with probable linear areas of bilateral scarring, as above. Possible small pleural effusions versus chronic blunting of the costophrenic angles. Support tubes, as above. Labs Labs: Laboratory Results - last 24 hr 07/02/24 07/02/24 07/02/24 09:09 11:29 18:03 WBC RBC Hgb Hct MCV MCH MCHC RDW Plt Count MPV Puncture Site ABG pH ABG pCO2 ABG pO2 ABG PO2/FiO2 Ratio ABG HCO3 ABG O2 Saturation ABG O2 Content ABG Base Excess A-a Gradient Oxyhemoglobin Carboxyhemoglobin Methemoglobin Reduced Hemoglobin Total Hemoglobin O2 Delivery Device O2 Liters/Min Minute Volume Vent Rate Vent Mode FiO2 Tidal Volume PEEP Peak Inspir Pressure Pressure Support Sodium 148 H Potassium 4.6 Chloride 112 H Carbon Dioxide 26 Anion Gap 10 BUN 48 H Creatinine 1.05 H Estim Creat Clear Calc 37 Estimated GFR > 60 Glucose 238 H POC Capillary Glucose 160 H 181 H Calcium 7.7 L Phosphorus Magnesium Total Bilirubin AST ALT Alkaline Phosphatase Total Protein Albumin Triglycerides Hepatitis A IgM Ab Hep Bs Antigen Hep B Core IgM Ab Hepatitis C Ab Screen 07/02/24 07/02/24 07/03/24 18:14 23:22 04:40 WBC RBC Hgb Hct MCV MCH MCHC RDW Plt Count MPV Puncture Site ABG pH ABG pCO2 ABG pO2 ABG PO2/FiO2 Ratio ABG HCO3 ABG O2 Saturation ABG O2 Content ABG Base Excess A-a Gradient Oxyhemoglobin Carboxyhemoglobin Methemoglobin Reduced Hemoglobin Total Hemoglobin O2 Delivery Device O2 Liters/Min Minute Volume Vent Rate Vent Mode FiO2 Tidal Volume PEEP Peak Inspir Pressure Pressure Support Sodium Potassium Chloride Carbon Dioxide Anion Gap BUN Creatinine Estim Creat Clear Calc Estimated GFR Glucose POC Capillary Glucose 187 H 193 H Calcium Phosphorus Magnesium Total Bilirubin AST ALT Alkaline Phosphatase Total Protein Albumin Triglycerides Hepatitis A IgM Ab Negative Hep Bs Antigen Negative Hep B Core IgM Ab Negative Hepatitis C Ab Screen Negative 07/03/24 07/03/24 07/03/24 04:45 04:46 07:52 WBC 15.2 H RBC 3.65 L Hgb 10.1 L Hct 34.2 L MCV 93.7 MCH 27.7 MCHC 29.5 L RDW 18.4 H Plt Count 306 MPV 11.1 H Puncture Site Right radial ABG pH 7.335 L ABG pCO2 51.1 H ABG pO2 62.0 L ABG PO2/FiO2 Ratio 1.77 ABG HCO3 26.6 H ABG O2 Saturation 90.0 L ABG O2 Content 14.2 L ABG Base Excess 0.3 A-a Gradient 128.1 Oxyhemoglobin 89.9 L Carboxyhemoglobin 0.5 Methemoglobin 0.3 Reduced Hemoglobin 9.3 H Total Hemoglobin 11.2 L O2 Delivery Device Ventilator O2 Liters/Min Not Reportable Minute Volume Not Reportable Vent Rate 18 Vent Mode Cmv FiO2 35 Tidal Volume 400 PEEP 5 Peak Inspir Pressure Not Reportable Pressure Support Not Reportable Sodium 145 Potassium 5.2 H Chloride 110 H Carbon Dioxide 29 Anion Gap 6 BUN 51 H Creatinine 0.99 Estim Creat Clear Calc 38 Estimated GFR > 60 Glucose 221 H POC Capillary Glucose 210 H Calcium 7.3 L Phosphorus 3.4 Magnesium 2.4 H Total Bilirubin 0.3 AST 77 H ALT 43 H Alkaline Phosphatase 77 Total Protein 5.0 L Albumin 2.9 L Triglycerides 123 Hepatitis A IgM Ab Hep Bs Antigen Hep B Core IgM Ab Hepatitis C Ab Screen Quality VTE Prophylaxis VTE prophylaxis: pharmacologic ordered
[2024-07-03 09:39] LABS: Anion Gap 5 mmol/L (4-12); Blood Urea Nitrogen 50 mg/dL (7-17); Calcium 7.6 mg/dL (8.4-10.2); Carbon Dioxide 30 mmol/L (22-30); Chloride 110 mmol/L (98-107); Estimated CRCL calculation 39 ml/min; Estimated Glomerular Filt Rate > 60; Glucose 233 mg/dL (65-110); Potassium 4.7 mmol/L (3.4-5.0); Sodium 145 mmol/L (137-145)
--- NOTE | 2024-07-03 11:24 | PCNFU ---
Nutrition Follow-Up Complete: Inadequate Oral Intake as related to mechanical vent as evidenced by NPO. goal: Meet estimated nutritional needs Patient will continue current goal. Pt current nutrition is Vital AF 1.2 at 50 ml/hr Last recorded weight is 67.5 kg, up from 64.3 kg on admit. Bowel Motility: +BM reported 07/03 Labs Reviewed:Mg 2.4, BUN 51, K 5.2, Hct 34.2, Hgb 10.1 Meds Noted:Fentanyl, Versed, Nimbex, Lovenox, Protonix, Lovenox, NovoLog. Skin: Deep Tissue-coccyx Additional Notes: Patient remains on a mechanical vent. Tube feedings are being tolerated of Vital AF 1.2 at 50 ml/hr. Total Nutrition: 1320 kcal/83 gm protein/892 ml water. Flush 30 ml q 4 hours. Agree with diet orders. Will monitor weight, labs, skin, diet orders, meds, tube feedings tolerance every Saturday and Saturday
[2024-07-03 11:30] LABS: Glucose Point of Care 178 mg/dl (65-105)
[2024-07-03] MEDS: DOXYCYCLINE 100 MG/NS 100 ML 100 MG/100 ML BAG IVPB (11:39)
[2024-07-03 17:18] LABS: Glucose Point of Care 179 mg/dl (65-105)
[2024-07-03] MEDS: CISATRACURIUM BESYLATE 200 MG in DEXTROSE 5% 80 ML 5.81 ML IV CONT (17:18)
[2024-07-03] MEDS: cefTRIAXone 2 GM/NS 100 ML 2 GM/100 ML BAG IVPB (20:48)
[2024-07-03 23:52] LABS: Glucose Point of Care 178 mg/dl (65-105)
[2024-07-04] VITALS (54 sets, daily range): BP systolic 86–163; BP diastolic 50–98; PULSE 74–94; RESP 18–24; TEMP 36.2–37.2; O2SAT 87–96
[2024-07-04] MEDS: methylPREDNISolone SOD SUCC 40 MG VIAL IV PUSH ×4 (00:31→17:37)
[2024-07-04] MEDS: IPRATROPIUM 0.5 MG/ALBUTEROL SULFATE 2.5 MG AMPUL.NEB 3 ML INHALATION ×3 (02:02→21:30)
[2024-07-04 04:54] LABS: Alveolar/Arterial O2 Gradient 195.5 mmHg; Base Excess ABG 0.1 mEq/l (+/-2.0); Carboxyhemoglobin 0.7 % THb (0-2.0); Fractional Inspired Oxygen 45 %; HCO3 ABG 27.2 mEq/l (22.0-26.0); Methemoglobin ABG 0.3 %THb (0-1.5); Oxygen Content ABG 14.7 %vol (16.0-22.0); Oxygen Saturation ABG 88.8 % (95.0-100.0); Oxyhemoglobin 89.4 % THb (90.0-100.0); PCO2 ABG 56.1 mmHg (35.0-45.0); PO2 ABG 61.5 mmHg (80.0-100.0); PO2 FiO2 Ratio Arterial Blood 1.37 %; Reduced Hemoglobin 9.6 %THb (0-5.0); Site Drawn RIGHT RADIAL; Total Hemoglobin 11.7 g/dL (12.0-18.0); pH ABG 7.304 (7.350-7.450)
[2024-07-04 04:55] LABS: Arterial Blood Gas PEEP 5 cmH2O; Arterial Blood Gas Tidal Volume 400 ml; Arterial Blood Gas Vent Mode CMV; Arterial Blood Gas Ventilator rate 20 /MIN; Device VENTILATOR; Modified Allen's Test Unable to perform
[2024-07-04] MEDS: CENTRAL LINE FLUSH 10 ML IV PUSH ×3 (06:34→21:16)
[2024-07-04] MEDS: LEVOTHYROXINE SODIUM 50 MCG TABLET FEED TUBE (06:34)
[2024-07-04 06:40] LABS: Hemoglobin 11.3 g/dL (12.0-15.0); Mean Corpuscular HGB Conc 29.7 g/dl (32-36); Mean Corpuscular Hemoglobin 28.2 pg (26-34); Mean Corpuscular Volume 94.8 fl (80-100); Mean Platelet Volume 11.4 fl (7.4-10.4); Platelet Count Result 346 k/mm3 (150-375); Red Blood Count 4.01 M/mm3 (4.2-5.4); Red Cell Distribution Width 18.5 % (11.5-14.5)
[2024-07-04 06:57] LABS: Alanine Aminotransferase 55 U/L (6-35); Albumin Level 3.1 g/dL (3.5-5.1); Alkaline Phosphatase 85 U/L (38-126); Anion Gap 6 mmol/L (4-12); Aspartate Amino Transferase 73 U/L (14-36); Bilirubin,Total 0.3 mg/dL (0.2-1.3); Blood Urea Nitrogen 54 mg/dL (7-17); Calcium 7.9 mg/dL (8.4-10.2); Carbon Dioxide 31 mmol/L (22-30); Chloride 108 mmol/L (98-107); Estimated CRCL calculation 43 ml/min; Estimated Glomerular Filt Rate > 60; Glucose 221 mg/dL (65-110); Magnesium 2.7 mg/dL (1.6-2.3); Phosphorus 4.3 mg/dL (2.5-4.5); Potassium 5.6 mmol/L (3.4-5.0); Sodium 145 mmol/L (137-145); Triglycerides 136 mg/dL (<150)
[2024-07-04] MEDS: ENOXAPARIN 40 MG/0.4 ML SYRINGE SUB-Q (08:30)
[2024-07-04] MEDS: ALBUTEROL SULFATE NEB 2.5 MG/3 ML INH 10 MG INHALATION (08:30)
[2024-07-04] MEDS: MINERAL OIL/WHITE PETROLATUM OINTMENT 1 APPLIC EACH EYE ×2 (08:30→21:16)
[2024-07-04] MEDS: PANTOPRAZOLE SODIUM IV 40 MG VIAL IV PUSH (08:30)
[2024-07-04] MEDS: ATORVASTATIN 40 MG TABLET PO (08:30)
[2024-07-04] MEDS: ASPIRIN 81 MG CHEWABLE TABLET PO (08:30)
[2024-07-04] MEDS: DEXTROSE 50% 25 GM/50 ML SYRINGE IV PUSH (08:31)
[2024-07-04] MEDS: INSULIN HUMAN REGULAR (*BKC) 100 UNITS/ML 10 UNITS IV PUSH (08:31)
[2024-07-04] MEDS: SODIUM ZIRCONIUM CYCLOSILICATE 10 GM POWD.PACK PO ×2 (08:31→21:16)
--- NOTE | 2024-07-04 10:25 | P.CONNP_ITS ---
Assessment and Plan Assessment and plan (1) Hyperkalemia: Code(s): E87.5 - Hyperkalemia Status: Acute Assessment and Plan: * etiology not clear * seemed to start ~ 07/02/24 by lab trend * off K+ supplements * no other culprit medications noted * will check standard testing -- urine electrolytes, renal ultrasound, renin and aldosterone levels, cortisol and TSH and CPK * continue medical management for now * consider changing tube feedings to low K+ formulation * follow repeat K+ levels (2) Acute on chronic respiratory failure with hypoxia and hypercapnia: Code(s): J96.21 - Acute and chronic respiratory failure with hypoxia; J96.22 - Acute and chronic respiratory failure with hypercapnia Status: Acute Assessment and Plan: * presumably due to COPD exacerbation * complicated by known history of chronic hypoxic/hypercapnic respiratory failure and CHERYL * on ventilator support * on antibiotics, bronchodilators, and steroids * weaning steroids * follow ABGs * ventilator weaning as tolerated (3) Acute exacerbation of chronic obstructive pulmonary disease: Code(s): J44.1 - Chronic obstructive pulmonary disease with (acute) exacerbation Status: Acute Assessment and Plan: * presumed etiology of #3 * continue current therapy (4) Elevated troponin: Code(s): R77.8 - Other specified abnormalities of plasma proteins Status: Acute Assessment and Plan: * felt to be demand ischemia from acute respiratory failure * EKG noted * Cardiology recommendations noted * recent Echo noted (on 06/29): * left ventricular systolic function appears preserved * right ventricle is normal in size and systolic function. * small amount of pericardial effusion with no evidence of cardiac tamponade * ischemic evaluation when more stable (5) Elevated LFTs: Code(s): R79.89 - Other specified abnormal findings of blood chemistry Status: Acute Assessment and Plan: * noted on testing since 07/03 * RUQ u/s was normal - status post cholecystectomy * hepatitis panel normal * follow trend Discussed with Dr. Toney. I will continue to follow the patient with you while he remains hospitalized and make further recommendations as deemed necessary. Thank you for allowing me to participate in the care of this patient. L History of Present Illness Reason for Consult Consult date: 07/04/24 Reason for consult: hyperkalemia Chief Complaint Chief complaint: COPD exacerbation, Orotracheal intubation History of Present Illness Narrative: Most of the information I obtained is from review of the electronic medical record as well as discussion with the physician/nurses involved in the patient's care as and when able to get any history from the patient as she is currently intubated and on mechanical ventilation. The patient is this is 78 year old female a past medical history as outlined below who presented to [facility] Emergency Room due to respiratory distress. Apparently, the patient having respiratory distress for least 15-20 minutes prior to EMS arrival at her home. Prior to that, she had been having issues and problems with shortness of breath for the last few hours. EMS was summoned as her respiratory status continued to decline despite conservative therapy. On EMS arrival, she was noted be hypoxic and tachypneic and was initially placed on CPAP therapy. She was given 2 g of IV magnesium in the field as well as 10 mg Decadron along with a nebulizer treatment and was subsequently transported to the emergency room for further assessment. On arrival to the emergency room, she still remained in respiratory distress was given another nebulizer treatment and switched to BiPAP therapy. There apparently was some brief improvement in her respiratory status but then she rapidly decompensated in the emergency room with eventual intubation and placement on mechanical ventilation. She was subsequently transferred to the intensive care unit for further evaluation therapy. Since her admission, she has remained on ventilator support with relative stability in her respiratory status but weaning has been difficult her known history of COPD, chronic hypoxic/hypercapnic respiratory failure obstructive sleep apnea. Renal consultation was requested due to her intermittent hyperkalemia as noted by a.m. labs. On admission, she was initially having issues with hypokalemia and required but potassium supplementation. However, more recently, she has had intermittent elevated potassium readings requiring medical management to stabilize his condition. Surprisingly, her renal function has been relatively stable and she continues to make reasonable urine output as well. She has never had issues or problems with hyperkalemia in the past as far as I can tell. Currently, the time my evaluation, she remains on full ventilatory support and in no apparent distress. Review of Systems 2 Review of Systems: As per HPI. [facility] Past Medical History Medical History (Updated 07/08/24 @ 13:07 by Lamonte Toney MD) Occult blood in stools Acute on chronic anemia Lung nodule Renal mass Essential hypertension Former smoker Quit 2018 with 54 pack per year history Hypothyroidism Coronary artery disease Hyperlipidemia Diastolic dysfunction With echocardiogram 2022 demonstrated EF is 70% mild pulmonary hypertension with RVSP of 38, prior echocardiogram 2020 demonstrated grade 1 diastolic dysfunction Obstructive sleep apnea on CPAP With 4 L of bleed in oxygen Chronic respiratory failure with hypoxia and hypercapnia Home O2 of 4 L Diastolic dysfunction Grade 1 Diastolic dysfunction noted on echocardiogram from 2020 repeat echo in 2022 demonstrated EF of 70% with indeterminate diastolic function with mild pulmonary hypertension with RVSP of 38 Chronic respiratory failure with hypoxia and hypercapnia On home O2 of 3 L and nighttime PAP therapy Renal mass Lung nodule Hypothyroidism COPD (chronic obstructive pulmonary disease) CHERYL on CPAP History of tobacco use History of heart attack Elevated lipids Hypertension H/O vaginal delivery Thyroid disease Surgical History Surgical History History of tubal ligation History of total abdominal hysterectomy and bilateral salpingo-oophorectomy Hx of cholecystectomy Status post extracapsular cataract extraction of left eye History of total abdominal hysterectomy and bilateral salpingo-oophorectomy History of tubal ligation History of cholecystectomy Family History Family History Mother Hypertension Sibling Family history of malignant neoplasm of kidney Family history of lung cancer Lung disease Mother Hypertension Sibling Malignant neoplasm of kidney Lung cancer Social History Social History Social History: Currently lives with in [place]. They have been since 1965 Surrogate decisionmaker: William, . Full Code. Retired from [employer]. Patient has 3 children. Smoking packs per day: 1 Smoking cigarettes per day: 20.0 Years smoked: 54 Smoking pack-years: 54.00 Smoking status: Former smoker Tobacco type: cigarettes Smoking end date: 10/27/18 Alcohol intake: never Substance use: never Do You Feel Safe in your Home?: Yes Lack of Transportation: No Lack of Food: Never True Current Housing: I Have Housing Concerned About Future Housing: No Difficulty Paying Gas/Electric Bills: No Difficulty Paying for Meds: No Currently Unemployed: No Education: Decline to Answer Difficulty w/ Childcare or Family Care: No Living arrangements: with family Occupation/Education: retired Gender identity (if verbalized by the patient): Female Spiritual care concerns: No Meds Home Medications and Allergies Home Medications ?Medication ?Instructions ?Recorded ?Confirmed ?Type atorvastatin 40 mg tablet 40 mg PO DAILY 05/05/19 12/03/23 History aspirin 81 mg tablet,delayed 81 mg PO DAILY 05/06/19 12/03/23 History release calcium carbonate 600 mg PO BID 05/06/19 12/03/23 History levothyroxine 50 mcg tablet 50 mcg PO DAILY 05/06/19 12/03/23 History levalbuterol HCl 1.25 mg/3 mL 0.63 mg (1.512 mL) inhalation 10/04/23 12/03/23 Rx solution for nebulization Q6HRT PRN shortness of breath or wheezing #72 mL azithromycin 250 mg tablet 500 mg (2 x 250 mg) PO QMWF #36 12/03/23 12/03/23 Rx tabs budesonide 160 mcg-glycopyr 9 2 inh inhalation BID #32.1 grams 12/03/23 12/03/23 Rx mcg-formot 4.8 mcg/actuation HFA inhaler (Breztri Aerosphere) albuterol sulfate 90 mcg/actuation 2 puff inhalation Q4H PRN 01/21/24 Rx aerosol inhaler shortness of breath, wheezing #8.5 grams albuterol 90 mcg/actuation aerosol 90 mcg inhalation PRN 06/28/24 06/28/24 History inhaler atorvastatin 40 mg tablet (Lipitor) 40 mg PO DAILY 06/28/24 06/28/24 History azithromycin 250 mg tablet 500 mg PO .COMPLEX 06/28/24 06/28/24 History levothyroxine 50 mcg capsule 50 mcg PO DAILY 06/28/24 06/28/24 History Allergies Allergy/AdvReac Type Severity Reaction Status Date / Time No Known Allergies Allergy Verified 06/29/24 08:19 Vital Signs Vital Signs Temp Pulse Resp BP Pulse Ox O2 Del Method FiO2 07/04/24 10:23 91 91 Mechanical Ventilation 45 07/04/24 10:00 98.1 F 87 22 H 116/72 91 07/04/24 10:00 87 22 H 07/04/24 10:00 87 22 H 07/04/24 09:35 89 22 H 113/67 07/04/24 09:27 88 22 H 07/04/24 09:10 85 22 H 119/76 07/04/24 08:52 86 22 H 123/74 07/04/24 08:32 81 22 H 140/75 07/04/24 08:30 82 94 Mechanical Ventilation 45 07/04/24 08:30 82 22 H 07/04/24 08:00 45 07/04/24 08:00 Mechanical Ventilation 45 07/04/24 08:00 80 22 H 135/80 07/04/24 08:00 82 20 07/04/24 08:00 82 20 07/04/24 08:00 97.1 F L 82 20 140/75 92 07/04/24 06:00 82 20 124/70 93 07/04/24 06:00 82 07/04/24 06:00 83 20 07/04/24 06:00 83 20 07/04/24 06:00 83 20 124/70 07/04/24 04:45 75 93 Mechanical Ventilation 45 07/04/24 04:01 77 20 92 07/04/24 04:00 78 07/04/24 04:00 98.4 F 78 20 99/60 L 92 07/04/24 04:00 78 20 07/04/24 04:00 78 20 07/04/24 04:00 78 20 99/60 L 07/04/24 04:00 45 07/04/24 04:00 91 Mechanical Ventilation 45 07/04/24 02:28 85 20 07/04/24 02:22 87 20 07/04/24 02:02 83 95 Mechanical Ventilation 45 07/04/24 02:00 89 20 163/98 H 91 07/04/24 02:00 89 20 07/04/24 02:00 89 20 163/98 H 07/04/24 02:00 89 20 07/04/24 02:00 89 07/04/24 00:00 82 07/04/24 00:00 45 07/04/24 00:00 91 Mechanical Ventilation 45 07/04/24 00:00 97.2 F L 82 20 147/82 H 91 07/04/24 00:00 82 20 07/04/24 00:00 82 20 07/04/24 00:00 74 20 103/64 07/03/24 23:00 78 93 Mechanical Ventilation 40 07/03/24 22:56 76 20 07/03/24 22:56 76 20 07/03/24 22:00 75 07/03/24 22:00 75 20 103/64 92 07/03/24 22:00 75 20 07/03/24 22:00 82 20 147/82 H 07/03/24 22:00 75 20 07/03/24 20:26 78 20 07/03/24 20:22 78 91 Mechanical Ventilation 40 07/03/24 20:21 81 20 07/03/24 20:00 79 07/03/24 20:00 40 07/03/24 20:00 97.2 F L 81 20 139/75 91 07/03/24 20:00 90 Mechanical Ventilation 40 07/03/24 20:00 80 20 139/75 07/03/24 20:00 80 20 07/03/24 20:00 80 20 07/03/24 18:00 74 20 07/03/24 18:00 74 20 117/71 07/03/24 18:00 74 20 07/03/24 18:00 74 20 117/71 92 07/03/24 18:00 74 07/03/24 17:39 72 92 Mechanical Ventilation 40 07/03/24 17:18 72 20 105/64 07/03/24 17:18 72 20 105/64 Exam 2 Narrative: GENERAL APPEARANCE: elderly but well developed well nourished female intubated/sedated/paralyzed on mechanical ventilation HEENT: normocephalic, atraumatic, normal conjunctiva and sclera, nares patient NECK: no lymphadenopathy, thyromegaly, or JVD MOUTH: normal lips, teeth, and gums; ETT in place CARDIOVASCULAR: RRR, normal S1 and S2, no rub detected RESPIRATORY: coarse breath sounds ABDOMEN: soft, nontender, nondistended, decreased bowel sounds present EXTREMITIES: no evidence of cyanosis, clubbing, or edema NEUROLOGICAL: unable to assess Results Lab Results 07/10/24 04:50 07/10/24 04:50 Lab results: Most recent lab results ABG pH 7.304 (7.350-7.450) L 07/04/24 04:46 ABG pCO2 56.1 mmHg (35.0-45.0) H 07/04/24 04:46 ABG pO2 61.5 mmHg (80.0-100.0) L 07/04/24 04:46 ABG HCO3 27.2 mEq/l (22.0-26.0) H 07/04/24 04:46 ABG O2 Saturation 88.8 % (95.0-100.0) L 07/04/24 04:46 Calcium 8.1 mg/dL (8.4-10.2) L 07/04/24 10:48 Phosphorus 4.3 mg/dL (2.5-4.5) 07/04/24 06:30 Magnesium 2.7 mg/dL (1.6-2.3) H 07/04/24 06:30
--- NOTE | 2024-07-04 11:11 | WPDINTPN ---
Progress Note: A&P Assessment and Plan (1) Acute on chronic respiratory failure with hypoxia and hypercapnia: Code(s): J96.21 - Acute and chronic respiratory failure with hypoxia; J96.22 - Acute and chronic respiratory failure with hypercapnia Status: Acute Assessment and Plan: Acute on chronic respiratory failure secondary to COPD exacerbation.? Community-acquired pneumonia although chest x-ray is not suggestive and patient is low procalcitonin level. WBC elevated MRSA screen negative 06/28: Blood cultures negative x2 -Continue Rocephin and doxycycline (06/28) -DC vancomycin (06/29) -Continue bronchodilators, -continue Solu-Medrol 40 mg IV q.6 hours -sedated with fentanyl and Versed infusion 07/02: Patient did have high peak pressures, after switching her from propofol to fentanyl and Versed due to elevated triglycerides. She was started on Nimbex infusion which improved her oxygenation, respiratory status and improved air entry. 07/03: Remains on Nimbex, adequate air entry, peak pressures are within normal limits continue fentanyl Versed infusion for now, will start weaning Nimbex, will maintain RASS of 0 to -2 on sedation meds 07/04: Chest x-ray, ABGs reviewed, ventilator adjusted, increased respiratory rate 22 and increased FiO2 to 45%, maintain O2 sats greater than 90%. Have also asked the bedside RN to start weaning the Nimbex to off (2) Acute exacerbation of chronic obstructive pulmonary disease: Code(s): J44.1 - Chronic obstructive pulmonary disease with (acute) exacerbation Status: Acute Assessment and Plan: Continue mechanical ventilation, bronchodilators, antibiotics, steroids (3) Elevated troponin: Code(s): R77.8 - Other specified abnormalities of plasma proteins Status: Acute Assessment and Plan: Patient has elevated troponin likely secondary to demand ischemia from acute respiratory failure. EKG reviewed and does not show any ST elevation. Patient does not have any documented history of coronary disease. Troponins trending down Continue aspirin 81 mg p.o. daily and statin Appreciate cardiology evaluation and recommendation Hold beta-mika due to sinus bradycardia while on sedation 06/29/2024: Echocardiogram Summary 1. The left ventricle is normal in size with thickened left ventricular rodríguez. The overall left ventricular systolic function appears preserved. Cannot rule out very mild hypokinesis of the apical wall. 2. The right ventricle is normal in size and systolic function. 3. The there is a small amount of pericardial effusion with no echocardiographic evidence of cardiac tamponade. (4) Hypothyroidism: Code(s): E03.9 - Hypothyroidism, unspecified Status: Acute Assessment and Plan: Continue levothyroxine. -TSH level - within normal limits (5) Electrolyte abnormality: Code(s): E87.8 - Other disorders of electrolyte and fluid balance, not elsewhere classified Status: Acute Assessment and Plan: Patient hyperkalemic, will treat with insulin, D50, Lokelma and albuterol nebs -have consulted nephrology for recurrent hyperkalemia Plan DVT prophylaxis -Lovenox Stress ulcer prophylaxis -PPI Nutrition -tolerating tube feeds Code Status - Full Code Total Critical Care Time - 32 minutes Discussed with patient's and updated with patient's condition and plan of care. I answered all his questions Due to a high probability of clinically significant, life threatening deterioration, the patient required my highest level of preparedness to intervene emergently and I personally spent this critical care time directly and personally managing the patient. This critical care time included obtaining a history; examining the patient; pulse oximetry; ordering and review of studies; arranging urgent treatment with development of a management plan; evaluation of patient's response to treatment; frequent reassessment; and discussions with other providers. It was exclusive of separately billable procedures and treating other patients and teaching time. Please see Assessment and Plan section and the rest of the note for further information on patient assessment and treatment This dictation may have been done utilizing a voice recognition system. Attempts have been made to correct errors. However, there may be uncorrected grammatical, spelling, and recognitions errors present. Subjective Date/time seen: 07/04/24 11:11 Interval history: Reason for consult: COPD exacerbation, acute hypercapnic respiratory failure, NSTEMI with elevated troponin 07/04/2024: Patient seen and examined in the ICU, remains intubated on CMV mode of ventilation, peep of 5, 45% FiO2. Sedated with fentanyl and Versed infusion, also on Nimbex infusion for ventilator synchrony. Afebrile, adequate urine output, hemodynamically stable, tolerating tube feeds significantly improved air entry bilaterally this morning Review of Systems Review of Systems: ROS unobtainable: Yes unobtainable due to endotracheal tube, unobtainable due to medical condition and unobtainable due to mental status Exam Narrative: General: Pt is sedated and intubated and on mechanical ventilation Lungs/Chest: Trachea central, better air entry this morning, no wheezing or rales. Cardiac: RRR. Normal S1 S2. No murmurs Circulation: Pedal pulses are intact and symmetrical. Abdomen: Decreased bowel sounds. Obese. Soft. NT. ND. Extremities: No clubbing, cyanosis or edema. Warm : [place] in place Neurologic: Intubated and sedated and paralyzed with Nimbex, pupils equal and reactive Objective Data Vital Signs Vital Signs: Vital Signs - 24 hr 07/03/24 12:00 07/03/24 12:00 07/03/24 12:00 Temperature Pulse Rate 83 83 83 Respiratory Rate 20 20 20 Blood Pressure 137/79 Pulse Oximetry Oxygen Delivery Fraction of Inspired Oxygen 07/03/24 12:00 07/03/24 12:00 07/03/24 12:00 Temperature 97.3 F L Pulse Rate 77 83 Respiratory Rate 20 Blood Pressure 137/79 Pulse Oximetry 93 Oxygen Delivery Mechanical Ventilation Fraction of Inspired Oxygen 35 07/03/24 12:00 07/03/24 12:08 07/03/24 14:00 Temperature Pulse Rate 74 78 Respiratory Rate 20 Blood Pressure 150/86 H Pulse Oximetry 95 Oxygen Delivery Mechanical Ventilation Fraction of Inspired Oxygen 35 35 07/03/24 14:00 07/03/24 14:00 07/03/24 14:00 Temperature Pulse Rate 78 78 78 Respiratory Rate 20 20 Blood Pressure Pulse Oximetry Oxygen Delivery Fraction of Inspired Oxygen 07/03/24 14:00 07/03/24 15:07 07/03/24 15:08 Temperature Pulse Rate 78 73 73 Respiratory Rate 20 20 Blood Pressure 150/86 H Pulse Oximetry 90 89 L Oxygen Delivery Mechanical Ventilation Fraction of Inspired Oxygen 40 07/03/24 16:00 07/03/24 16:00 07/03/24 16:00 Temperature Pulse Rate 73 73 73 Respiratory Rate 20 20 20 Blood Pressure 104/68 Pulse Oximetry Oxygen Delivery Fraction of Inspired Oxygen 07/03/24 16:00 07/03/24 16:00 07/03/24 16:00 Temperature 97.6 F Pulse Rate 73 72 Respiratory Rate 20 Blood Pressure 104/68 Pulse Oximetry 91 Oxygen Delivery Mechanical Ventilation Fraction of Inspired Oxygen 40 07/03/24 16:00 07/03/24 17:18 07/03/24 17:18 Temperature Pulse Rate 72 72 Respiratory Rate 20 20 Blood Pressure 105/64 105/64 Pulse Oximetry Oxygen Delivery Fraction of Inspired Oxygen 40 07/03/24 17:39 07/03/24 18:00 07/03/24 18:00 Temperature Pulse Rate 72 74 74 Respiratory Rate 20 Blood Pressure 117/71 Pulse Oximetry 92 92 Oxygen Delivery Mechanical Ventilation Fraction of Inspired Oxygen 40 07/03/24 18:00 07/03/24 18:00 07/03/24 18:00 Temperature Pulse Rate 74 74 74 Respiratory Rate 20 20 20 Blood Pressure 117/71 Pulse Oximetry Oxygen Delivery Fraction of Inspired Oxygen 07/03/24 20:00 07/03/24 20:00 07/03/24 20:00 Temperature Pulse Rate 80 80 80 Respiratory Rate 20 20 20 Blood Pressure 139/75 Pulse Oximetry Oxygen Delivery Fraction of Inspired Oxygen 07/03/24 20:00 07/03/24 20:00 07/03/24 20:00 Temperature 97.2 F L Pulse Rate 81 Respiratory Rate 20 Blood Pressure 139/75 Pulse Oximetry 90 91 Oxygen Delivery Mechanical Ventilation Fraction of Inspired Oxygen 40 40 07/03/24 20:00 07/03/24 20:21 07/03/24 20:22 Temperature Pulse Rate 79 81 78 Respiratory Rate 20 Blood Pressure Pulse Oximetry 91 Oxygen Delivery Mechanical Ventilation Fraction of Inspired Oxygen 40 07/03/24 20:26 07/03/24 22:00 07/03/24 22:00 Temperature Pulse Rate 78 75 82 Respiratory Rate 20 20 20 Blood Pressure 147/82 H Pulse Oximetry Oxygen Delivery Fraction of Inspired Oxygen 07/03/24 22:00 07/03/24 22:00 07/03/24 22:00 Temperature Pulse Rate 75 75 75 Respiratory Rate 20 20 Blood Pressure 103/64 Pulse Oximetry 92 Oxygen Delivery Fraction of Inspired Oxygen 07/03/24 22:56 07/03/24 22:56 07/03/24 23:00 Temperature Pulse Rate 76 76 78 Respiratory Rate 20 20 Blood Pressure Pulse Oximetry 93 Oxygen Delivery Mechanical Ventilation Fraction of Inspired Oxygen 40 07/04/24 00:00 07/04/24 00:00 07/04/24 00:00 Temperature Pulse Rate 74 82 82 Respiratory Rate 20 20 20 Blood Pressure 103/64 Pulse Oximetry Oxygen Delivery Fraction of Inspired Oxygen 07/04/24 00:00 07/04/24 00:00 07/04/24 00:00 Temperature 97.2 F L Pulse Rate 82 Respiratory Rate 20 Blood Pressure 147/82 H Pulse Oximetry 91 91 Oxygen Delivery Mechanical Ventilation Fraction of Inspired Oxygen 45 45 07/04/24 00:00 07/04/24 02:00 07/04/24 02:00 Temperature Pulse Rate 82 89 89 Respiratory Rate 20 Blood Pressure Pulse Oximetry Oxygen Delivery Fraction of Inspired Oxygen 07/04/24 02:00 07/04/24 02:00 07/04/24 02:00 Temperature Pulse Rate 89 89 89 Respiratory Rate 20 20 20 Blood Pressure 163/98 H 163/98 H Pulse Oximetry 91 Oxygen Delivery Fraction of Inspired Oxygen 07/04/24 02:02 07/04/24 02:22 07/04/24 02:28 Temperature Pulse Rate 83 87 85 Respiratory Rate 20 20 Blood Pressure Pulse Oximetry 95 Oxygen Delivery Mechanical Ventilation Fraction of Inspired Oxygen 45 07/04/24 04:00 07/04/24 04:00 07/04/24 04:00 Temperature Pulse Rate 78 Respiratory Rate 20 Blood Pressure 99/60 L Pulse Oximetry 91 Oxygen Delivery Mechanical Ventilation Fraction of Inspired Oxygen 45 45 07/04/24 04:00 07/04/24 04:00 07/04/24 04:00 Temperature 98.4 F Pulse Rate 78 78 78 Respiratory Rate 20 20 20 Blood Pressure 99/60 L Pulse Oximetry 92 Oxygen Delivery Fraction of Inspired Oxygen 07/04/24 04:00 07/04/24 04:01 07/04/24 04:45 Temperature Pulse Rate 78 77 75 Respiratory Rate 20 Blood Pressure Pulse Oximetry 92 93 Oxygen Delivery Mechanical Ventilation Fraction of Inspired Oxygen 45 07/04/24 06:00 07/04/24 06:00 07/04/24 06:00 Temperature Pulse Rate 83 83 83 Respiratory Rate 20 20 20 Blood Pressure 124/70 Pulse Oximetry Oxygen Delivery Fraction of Inspired Oxygen 07/04/24 06:00 07/04/24 06:00 07/04/24 08:00 Temperature 97.1 F L Pulse Rate 82 82 82 Respiratory Rate 20 20 Blood Pressure 124/70 140/75 Pulse Oximetry 93 92 Oxygen Delivery Fraction of Inspired Oxygen 07/04/24 08:00 07/04/24 08:00 07/04/24 08:00 Temperature Pulse Rate 82 82 80 Respiratory Rate 20 20 22 H Blood Pressure 135/80 Pulse Oximetry Oxygen Delivery Fraction of Inspired Oxygen 07/04/24 08:00 07/04/24 08:00 07/04/24 08:30 Temperature Pulse Rate 82 Respiratory Rate 22 H Blood Pressure Pulse Oximetry Oxygen Delivery Mechanical Ventilation Fraction of Inspired Oxygen 45 45 07/04/24 08:30 07/04/24 08:32 07/04/24 08:52 Temperature Pulse Rate 82 81 86 Respiratory Rate 22 H 22 H Blood Pressure 140/75 123/74 Pulse Oximetry 94 Oxygen Delivery Mechanical Ventilation Fraction of Inspired Oxygen 45 07/04/24 09:10 07/04/24 09:35 07/04/24 10:00 Temperature Pulse Rate 85 89 87 Respiratory Rate 22 H 22 H 22 H Blood Pressure 119/76 113/67 Pulse Oximetry Oxygen Delivery Fraction of Inspired Oxygen 07/04/24 10:00 07/04/24 10:00 07/04/24 10:01 Temperature 98.1 F Pulse Rate 87 87 87 Respiratory Rate 22 H 22 H 22 H Blood Pressure 116/72 116/72 Pulse Oximetry 91 Oxygen Delivery Fraction of Inspired Oxygen 07/04/24 11:06 Temperature Pulse Rate 89 Respiratory Rate 22 H Blood Pressure Pulse Oximetry Oxygen Delivery Fraction of Inspired Oxygen Intake/Output Intake/Output: Intake & Output 07/01/24 07/02/24 07/03/24 07/04/24 23:59 23:59 23:59 23:59 Intake Total 1734.6 1994.6 1599.4 989.4 Output Total 4599 673 5584 750 Balance 734.6 1019.6 399.4 239.4 Meds/Results Medications: Active Medications Generic Name Dose Route Start Last Admin Trade Name Freq PRN Reason Stop Dose Admin Albuterol/Ipratropium 3 ml 06/29/24 02:00 07/04/24 08:29 Ipratropium 0.5 Mg/Albuterol Sulfate 2.5 Mg Ampul.Neb 3 Ml INHALATION Not Given Q6HRT [facility] Aspirin 81 mg 07/01/24 08:00 07/04/24 08:30 Aspirin 81 Mg Chewable Tablet PO 81 mg DAILY@0800 [facility] Administration Atorvastatin Calcium 40 mg 06/29/24 09:00 07/04/24 08:30 Atorvastatin 40 Mg Tablet PO 40 mg DAILY [facility] Administration Dextrose 12.5 gm 06/29/24 08:08 Dextrose 50% 25 Gm/50 Ml Syringe IV PUSH PRN PRN Hypoglycemia Protocol Enoxaparin Sodium 40 mg 06/29/24 09:00 07/04/24 08:30 Enoxaparin 40 Mg/0.4 Ml Syringe SUB-Q 40 mg DAILY [facility] Administration Glucagon 1 mg 06/29/24 08:08 Glucagon For Inj 1 Mg Vial IM PRN PRN Hypoglycemia Protocol Glucose 15 gm 06/29/24 08:08 Glucose Oral Gel 15 Gm Of Glucse In 37.5 Gm Tube PO PRN PRN Hypoglycemia Protocol Ceftriaxone Sodium 2 gm in 100 mls @ 200 mls/hr 06/28/24 20:00 07/03/24 21:18 Rocephin 2 Gm/Ns 100 Ml IVPB Infused Q24H [facility] Infusion Dextrose 1,000 mls @ 100 mls/hr 06/29/24 08:08 Dextrose 5% 1,000 Ml IVPB PRN PRN Hypoglycemia Protocol Fentanyl Citrate 2,500 mcg in 250 mls @ 12.5 mls/hr 07/01/24 08:50 07/04/24 10:00 Fentanyl 2,500 Mcg/Ns 250 Ml IV CONT 125 mcg/hr .Q20H [facility] 12.5 mls/hr Titration Protocol 125 MCG/HR Midazolam HCl 100 mg in 100 mls @ 2 mls/hr 07/01/24 08:50 07/04/24 11:06 Versed 100 Mg/Ns 100 Ml IV CONT 3 mg/hr .Q50H [facility] 3 mls/hr Titration Protocol 2 MG/HR Cisatracurium Besylate 200 mg/ 100 mls @ 0 mls/hr 07/01/24 12:50 07/04/24 10:01 Dextrose IV CONT 0 mcg/kg/min .Q0M [facility] 0 mls/hr Titration Protocol Insulin Aspart 3 - 6 units 06/29/24 12:00 07/04/24 06:34 Insulin Aspart (*Bkc) 100 Units/Ml SUB-Q Not Given Q6HR [facility] Protocol Levothyroxine Sodium 50 mcg 06/30/24 06:30 07/04/24 06:34 Levothyroxine Sodium 50 Mcg Tablet FEED TUBE 50 mcg DAILY@0630 [facility] Administration Methylprednisolone Sodium Succinate 40 mg 06/30/24 12:00 07/04/24 06:34 Methylprednisolone Sod Succ 40 Mg Vial IV PUSH 40 mg Q6HR [facility] Administration Multi-Ingred Cream/Lotion/Oil/Oint 1 applic 06/29/24 09:00 07/04/24 08:30 Mineral Oil/White Petrolatum Ointment EACH EYE 1 applic Q12HR [facility] Administration Multi-Ingred Cream/Lotion/Oil/Oint 1 applic 07/01/24 09:00 07/03/24 20:50 Mineral Oil/White Petrolatum Ointment EACH EYE Not Given Q12HR [facility] Pantoprazole Sodium 40 mg 06/29/24 09:00 07/04/24 08:30 Pantoprazole Sodium Iv 40 Mg Vial IV PUSH 40 mg DAILY [facility] Administration Sodium Chloride 10 ml 06/29/24 14:00 07/04/24 06:34 Central Line Flush IV PUSH 10 ml Q8HR [facility] Administration Sodium Chloride 10 ml 06/29/24 12:40 Central Line Flush IV PUSH PRN PRN with TPN bag changes Sodium Chloride 20 ml 06/29/24 12:40 Central Line Flush IV PUSH PRN PRN after blood draws Sodium Zirconium Cyclosilicate 10 gm 07/04/24 08:00 07/04/24 08:31 Sodium Zirconium Cyclosilicate 10 Gm Powd.Pack PO 10 gm Q12H [facility] Administration Radiology Results: ITS Impressions Abdomen X-Ray 06/28/24 20:03 IMPRESSION: Nasogastric tube in good position and ready for immediate use. Chest X-Ray 07/03/24 06:59 Impression: COPD with probable linear areas of bilateral scarring, as above. Possible small pleural effusions versus chronic blunting of the costophrenic angles. Support tubes, as above. Abdomen Ultrasound 07/03/24 14:12 IMPRESSION: 1. Normal right upper quadrant ultrasound status post cholecystectomy. Labs Labs: Laboratory Results - last 24 hr 07/03/24 07/03/24 07/03/24 11:27 17:16 23:49 WBC RBC Hgb Hct MCV MCH MCHC RDW Plt Count MPV Puncture Site ABG pH ABG pCO2 ABG pO2 ABG PO2/FiO2 Ratio ABG HCO3 ABG O2 Saturation ABG O2 Content ABG Base Excess A-a Gradient Oxyhemoglobin Carboxyhemoglobin Methemoglobin Reduced Hemoglobin Total Hemoglobin O2 Delivery Device O2 Liters/Min Minute Volume Vent Rate Vent Mode FiO2 Tidal Volume PEEP Peak Inspir Pressure Pressure Support Sodium Potassium Chloride Carbon Dioxide Anion Gap BUN Creatinine Estim Creat Clear Calc Estimated GFR Glucose POC Capillary Glucose 178 H 179 H 178 H Calcium Phosphorus Magnesium Total Bilirubin AST ALT Alkaline Phosphatase Total Protein Albumin Triglycerides 07/04/24 07/04/24 04:46 06:30 WBC 18.0 H RBC 4.01 L Hgb 11.3 L Hct 38.0 MCV 94.8 MCH 28.2 MCHC 29.7 L RDW 18.5 H Plt Count 346 MPV 11.4 H Puncture Site Right radial ABG pH 7.304 L ABG pCO2 56.1 H ABG pO2 61.5 L ABG PO2/FiO2 Ratio 1.37 ABG HCO3 27.2 H ABG O2 Saturation 88.8 L ABG O2 Content 14.7 L ABG Base Excess 0.1 A-a Gradient 195.5 Oxyhemoglobin 89.4 L Carboxyhemoglobin 0.7 Methemoglobin 0.3 Reduced Hemoglobin 9.6 H Total Hemoglobin 11.7 L O2 Delivery Device Ventilator O2 Liters/Min Not Reportable Minute Volume Not Reportable Vent Rate 20 Vent Mode Cmv FiO2 45 Tidal Volume 400 PEEP 5 Peak Inspir Pressure Not Reportable Pressure Support Not Reportable Sodium 145 Potassium 5.6 H Chloride 108 H Carbon Dioxide 31 H Anion Gap 6 BUN 54 H Creatinine 0.87 Estim Creat Clear Calc 43 Estimated GFR > 60 Glucose 221 H POC Capillary Glucose Calcium 7.9 L Phosphorus 4.3 Magnesium 2.7 H Total Bilirubin 0.3 AST 73 H ALT 55 H Alkaline Phosphatase 85 Total Protein 6.0 L Albumin 3.1 L Triglycerides 136 Quality VTE Prophylaxis VTE prophylaxis: pharmacologic ordered
[2024-07-04 11:36] LABS: Glucose Point of Care 172 mg/dl (65-105)
[2024-07-04 11:39] LABS: Anion Gap 3 mmol/L (4-12); Blood Urea Nitrogen 53 mg/dL (7-17); Calcium 8.1 mg/dL (8.4-10.2); Carbon Dioxide 34 mmol/L (22-30); Chloride 108 mmol/L (98-107); Estimated CRCL calculation 41 ml/min; Estimated Glomerular Filt Rate > 60; Glucose 191 mg/dL (65-110); Potassium 4.9 mmol/L (3.4-5.0); Sodium 145 mmol/L (137-145)
[2024-07-04] MEDS: FENTANYL 2,500MCG/NS250ML(*CRX 2,500 MCG/250 ML BAG 10 MCG IV CONT (17:35)
[2024-07-04] MEDS: MIDAZOLAM 100MG/NS 100ML(*CRX) 100 MG/100 ML BAG IV CONT (17:36)
[2024-07-04 18:14] LABS: Glucose Point of Care 184 mg/dl (65-105)
[2024-07-04] MEDS: cefTRIAXone 2 GM/NS 100 ML 2 GM/100 ML BAG IVPB (21:15)
[2024-07-05] VITALS (36 sets, daily range): BP systolic 88–125; BP diastolic 49–76; PULSE 59–116; RESP 16–24; TEMP 36.4–37.2; O2SAT 92–97
[2024-07-05 00:40] LABS: Glucose Point of Care 217 mg/dl (65-105)
[2024-07-05] MEDS: methylPREDNISolone SOD SUCC 40 MG VIAL IV PUSH ×4 (00:51→20:51)
[2024-07-05] MEDS: INSULIN ASPART (*BKC) 100 UNITS/ML SUB-Q ×4 (00:51→17:11)
[2024-07-05] MEDS: IPRATROPIUM 0.5 MG/ALBUTEROL SULFATE 2.5 MG AMPUL.NEB 3 ML INHALATION ×4 (02:21→19:57)
[2024-07-05] MEDS: AMIODARONE 150 MG/D5W 100 ML 150 MG/100 ML BAG 600 MG IV CONT (05:25)
[2024-07-05 05:27] LABS: Basophils Percent Auto 0.1 % (0.2-1.2); Hematocrit 36.3 % (37.0-47.0); Hemoglobin 10.9 g/dL (12.0-15.0); Immature Granulocyte Absolute 0.18 K/mm3 (0.00-0.031); Lymphocytes Absolute Auto 1.81 K/mm3 (0.9-3.2); Lymphocytes Percent Auto 10.2 % (18.3-44.2); Mean Corpuscular Hemoglobin 28.5 pg (26-34); Mean Corpuscular Volume 94.8 fl (80-100); Mean Platelet Volume 11.5 fl (7.4-10.4); Monocytes Absolute Auto 1.9 K/mm3 (0.1-0.6); Monocytes Percent Auto 10.6 % (2.6-8.5); Neutrophils Absolute Auto 13.9 K/mm3 (1.3-6.7); Neutrophils Percent Auto 78.1 % (45.5-73.1); Nucleated Red Blood Cells Perc 0.9 % (0.0-0.2); Platelet Count Result 340 k/mm3 (150-375); Red Blood Count 3.83 M/mm3 (4.2-5.4); Red Cell Distribution Width 18.3 % (11.5-14.5); White Blood Count 17.8 K/mm3 (4.5-10.0)
[2024-07-05] MEDS: AMIODARONE 360 MG/D5W 200 ML 360 MG/200 ML BAG 33.33 MG IV CONT (05:35)
[2024-07-05] MEDS: LEVOTHYROXINE SODIUM 50 MCG TABLET FEED TUBE (05:36)
[2024-07-05] MEDS: CENTRAL LINE FLUSH 10 ML IV PUSH ×3 (05:37→20:51)
[2024-07-05 05:45] LABS: Alanine Aminotransferase 57 U/L (6-35); Albumin Level 2.9 g/dL (3.5-5.1); Alkaline Phosphatase 85 U/L (38-126); Anion Gap 9 mmol/L (4-12); Aspartate Amino Transferase 53 U/L (14-36); Bilirubin,Total 0.3 mg/dL (0.2-1.3); Blood Urea Nitrogen 89 mg/dL (7-17); Calcium 7.8 mg/dL (8.4-10.2); Carbon Dioxide 29 mmol/L (22-30); Chloride 106 mmol/L (98-107); Estimated CRCL calculation 27 ml/min; Estimated Glomerular Filt Rate 43; Glucose 238 mg/dL (65-110); Magnesium 2.7 mg/dL (1.6-2.3); Phosphorus 4.4 mg/dL (2.5-4.5); Potassium 5.2 mmol/L (3.4-5.0); Sodium 144 mmol/L (137-145)
[2024-07-05 06:10] LABS: Base Excess ABG -2.1 mEq/l (+/-2.0); Carboxyhemoglobin 0.6 % THb (0-2.0); Fractional Inspired Oxygen 50 %; HCO3 ABG 25.8 mEq/l (22.0-26.0); Methemoglobin ABG 0.1 %THb (0-1.5); Oxygen Content ABG 16.3 %vol (16.0-22.0); Oxygen Saturation ABG 98.1 % (95.0-100.0); Oxyhemoglobin 97.6 % THb (90.0-100.0); PCO2 ABG 59.1 mmHg (35.0-45.0); Reduced Hemoglobin 1.7 %THb (0-5.0); Total Hemoglobin 11.7 g/dL (12.0-18.0)
[2024-07-05 06:13] LABS: Arterial Blood Gas PEEP 8 cmH2O; Arterial Blood Gas Tidal Volume 400 ml; Arterial Blood Gas Vent Mode CMV; Arterial Blood Gas Ventilator rate 22 /MIN; Device VENTILATOR; Modified Allen's Test Pass; Site Drawn RIGHT RADIAL; pH ABG 7.258 (7.350-7.450)
[2024-07-05] MEDS: ASPIRIN 81 MG CHEWABLE TABLET PO (08:30)
[2024-07-05] MEDS: ENOXAPARIN 40 MG/0.4 ML SYRINGE SUB-Q (08:30)
[2024-07-05] MEDS: ATORVASTATIN 40 MG TABLET PO (08:30)
[2024-07-05] MEDS: SODIUM ZIRCONIUM CYCLOSILICATE 10 GM POWD.PACK PO ×2 (08:30→20:51)
[2024-07-05] MEDS: PANTOPRAZOLE SODIUM IV 40 MG VIAL IV PUSH (08:30)
[2024-07-05] MEDS: MINERAL OIL/WHITE PETROLATUM OINTMENT 1 APPLIC EACH EYE ×2 (08:31→20:51)
[2024-07-05] MEDS: AMIODARONE 360 MG/D5W 200 ML 360 MG/200 ML BAG 16.67 MG IV CONT ×2 (10:59→23:00)
--- NOTE | 2024-07-05 11:30 | P.PNNP_ITS ---
Progress Note: A&P Assessment and Plan (1) Hyperkalemia: Code(s): E87.5 - Hyperkalemia Status: Acute Assessment and Plan: * etiology not clear * seemed to start ~ 07/02/24 by lab trend * off K+ supplements * no other culprit medications noted * will check standard testing -- urine electrolytes, renal ultrasound, renin and aldosterone levels, cortisol and TSH and CPK * continue medical management for now * consider changing tube feedings to low K+ formulation * follow repeat K+ levels (2) RASHEL (acute kidney injury): Code(s): N17.9 - Acute kidney failure, unspecified Status: Acute Assessment and Plan: * as noted by labs (on 07/05) * possibly due to relative hypotension in the last 24 hours * noted systolic BP in the high 80s * reasonable urine output * follow trend of repeat labs (3) Acute on chronic respiratory failure with hypoxia and hypercapnia: Code(s): J96.21 - Acute and chronic respiratory failure with hypoxia; J96.22 - Acute and chronic respiratory failure with hypercapnia Status: Acute Assessment and Plan: * presumably due to COPD exacerbation * complicated by known history of chronic hypoxic/hypercapnic respiratory failure and CHERYL * on ventilator support * on antibiotics, bronchodilators, and steroids * weaning steroids * follow ABGs * ventilator weaning as tolerated (4) Acute exacerbation of chronic obstructive pulmonary disease: Code(s): J44.1 - Chronic obstructive pulmonary disease with (acute) exacerbation Status: Acute Assessment and Plan: * presumed etiology of #3 * continue current therapy (5) Elevated troponin: Code(s): R77.8 - Other specified abnormalities of plasma proteins Status: Acute Assessment and Plan: * felt to be demand ischemia from acute respiratory failure * EKG noted * Cardiology recommendations noted * recent Echo noted (on 06/29): * left ventricular systolic function appears preserved * right ventricle is normal in size and systolic function. * small amount of pericardial effusion with no evidence of cardiac tamponade * ischemic evaluation when more stable (6) Elevated LFTs: Code(s): R79.89 - Other specified abnormal findings of blood chemistry Status: Acute Assessment and Plan: * noted on testing since 07/03 * RUQ u/s was normal - status post cholecystectomy * hepatitis panel normal * follow trend Will continue to follow. L Subjective Date/time seen: 07/05/24 11:30 Interval history: Follow-up for intermittent hyperkalemia. Remains intubated/sedated (but off paralytics) and on mechanical ventilation at the time of my visit; remains hemodynamically stable without the need for vasopressor therapy; continues to make good urine output but BUN & creatinine elevated by AM labs in association with already noted fluctuating potassium levels; no other issues/events overnight or earlier this morning. Exam 2 Narrative: General: elderly but WD/WN female intubated/sedated on mechanical ventilation Heart: normal S1 and S2; no rub Lungs: coarse breath sounds Abdomen: soft, nontender, nondistended, decreased bowel sounds Extremities: no cyanosis or clubbing; no edema Skin: warm and dry Objective Data Vital Signs Vital Signs: Vital Signs Temp Pulse Resp BP Pulse Ox O2 Del Method FiO2 07/05/24 11:23 80 93 Mechanical Ventilation 40 07/05/24 10:59 76 119/60 07/05/24 10:00 78 16 07/05/24 10:00 78 16 07/05/24 10:00 78 106/64 07/05/24 10:00 78 16 106/64 92 07/05/24 10:00 78 07/05/24 08:41 81 96 Mechanical Ventilation 50 07/05/24 08:40 50 07/05/24 08:00 82 104/61 07/05/24 08:00 97.8 F 81 22 H 104/61 97 07/05/24 08:00 81 07/05/24 08:00 50 07/05/24 08:00 Mechanical Ventilation 50 07/05/24 08:00 81 22 H 07/05/24 08:00 81 22 H 07/05/24 07:48 83 22 H 07/05/24 07:32 84 94 Mechanical Ventilation 50 07/05/24 07:31 59 L 24 H 07/05/24 06:00 96 105/66 07/05/24 06:00 97 22 H 105/66 97 07/05/24 06:00 96 22 H 07/05/24 06:00 96 22 H 07/05/24 06:00 96 07/05/24 05:35 103 H 125/62 07/05/24 05:35 103 H 125/62 07/05/24 05:25 116 H 121/67 07/05/24 05:20 84 97 Mechanical Ventilation 50 07/05/24 04:00 98.1 F 80 22 H 88/53 L 96 07/05/24 04:00 80 07/05/24 04:00 50 07/05/24 04:00 Mechanical Ventilation 50 07/05/24 04:00 79 22 H 07/05/24 04:00 79 22 H 07/05/24 02:49 88 22 H 07/05/24 02:24 84 22 H 07/05/24 02:23 84 97 Mechanical Ventilation 55 07/05/24 02:00 88 22 H 119/58 L 97 07/05/24 02:00 88 22 H 07/05/24 02:00 88 22 H 07/05/24 02:00 88 07/05/24 01:00 87 22 H 104/67 96 07/05/24 00:00 99.0 F 82 22 H 92/56 L 93 07/05/24 00:00 83 07/05/24 00:00 55 07/05/24 00:00 Mechanical Ventilation 55 07/05/24 00:00 82 22 H 07/05/24 00:00 82 22 H 07/04/24 23:45 81 94 Mechanical Ventilation 55 07/04/24 23:00 82 22 H 07/04/24 23:00 82 22 H 07/04/24 22:00 83 22 H 87/50 L 96 07/04/24 22:00 83 07/04/24 22:00 85 22 H 07/04/24 22:00 85 22 H 07/04/24 21:49 86 22 H 07/04/24 21:36 82 94 Mechanical Ventilation 55 07/04/24 21:35 86 22 H 07/04/24 20:00 88 07/04/24 20:00 Mechanical Ventilation 55 07/04/24 20:00 55 07/04/24 20:00 97.8 F 89 20 96/78 L 92 07/04/24 20:00 89 20 07/04/24 20:00 89 20 07/04/24 19:00 89 20 07/04/24 19:00 89 20 07/04/24 18:15 84 22 H 07/04/24 18:14 86 22 H 07/04/24 18:00 84 22 H 137/78 93 07/04/24 17:36 84 22 H 07/04/24 17:36 84 22 H 07/04/24 17:35 81 22 H 07/04/24 17:35 81 22 H 07/04/24 17:04 82 94 Mechanical Ventilation 55 Intake/Output Intake/Output: Intake & Output 07/02/24 07/03/24 07/04/24 07/05/24 23:59 23:59 23:59 23:59 Intake Total 1994.6 1599.4 1955.0 1395.2 Output Total 975 1200 1050 350 Balance 1019.6 399.4 905.0 1045.2 Meds/Results Medications: Active Medications Generic Name Dose Route Start Last Admin Trade Name Freq PRN Reason Stop Dose Admin Albuterol/Ipratropium 3 ml 06/29/24 02:00 07/05/24 13:32 Ipratropium 0.5 Mg/Albuterol Sulfate 2.5 Mg Ampul.Neb 3 Ml INHALATION 3 ml Q6HRT BARBARA Administration Aspirin 81 mg 07/01/24 08:00 07/05/24 08:30 Aspirin 81 Mg Chewable Tablet PO 81 mg DAILY@0800 BARBARA Administration Atorvastatin Calcium 40 mg 06/29/24 09:00 07/05/24 08:30 Atorvastatin 40 Mg Tablet PO 40 mg DAILY BARBARA Administration Dextrose 12.5 gm 06/29/24 08:08 Dextrose 50% 25 Gm/50 Ml Syringe IV PUSH PRN PRN Hypoglycemia Protocol Enoxaparin Sodium 40 mg 06/29/24 09:00 07/05/24 08:30 Enoxaparin 40 Mg/0.4 Ml Syringe SUB-Q 40 mg DAILY BARBARA Administration Glucagon 1 mg 06/29/24 08:08 Glucagon For Inj 1 Mg Vial IM PRN PRN Hypoglycemia Protocol Glucose 15 gm 06/29/24 08:08 Glucose Oral Gel 15 Gm Of Glucse In 37.5 Gm Tube PO PRN PRN Hypoglycemia Protocol Ceftriaxone Sodium 2 gm in 100 mls @ 200 mls/hr 06/28/24 20:00 07/04/24 21:45 Rocephin 2 Gm/Ns 100 Ml IVPB Infused Q24H BARBARA Infusion Dextrose 1,000 mls @ 100 mls/hr 06/29/24 08:08 Dextrose 5% 1,000 Ml IVPB PRN PRN Hypoglycemia Protocol Fentanyl Citrate 2,500 mcg in 250 mls @ 10 mls/hr 07/01/24 08:50 07/05/24 14:00 Fentanyl 2,500 Mcg/Ns 250 Ml IV CONT 100 mcg/hr .Q25H BARBARA 10 mls/hr Titration Protocol 100 MCG/HR Midazolam HCl 100 mg in 100 mls @ 5 mls/hr 07/01/24 08:50 07/05/24 14:00 Versed 100 Mg/Ns 100 Ml IV CONT 5 mg/hr .Q20H BARBARA 5 mls/hr Titration Protocol 5 MG/HR Amiodarone HCl/Dextrose 360 mg in 200 mls @ 16.667 mls/hr 07/05/24 11:30 07/05/24 14:00 Nexterone 360 Mg/D5w 200 Ml IV CONT 07/06/24 06:00 0.5 mg/min .Q12H BARBARA 16.67 mls/hr Infusion Protocol 0.5 MG/MIN Albumin Human 100 mls @ 60 mls/hr 07/05/24 12:00 07/05/24 13:51 Albutein IVPB 07/06/24 07:39 Infused Q6HR BARBARA Infusion Insulin Aspart 3 - 6 units 06/29/24 12:00 07/05/24 12:02 Insulin Aspart (*Bkc) 100 Units/Ml SUB-Q 3 units Q6HR BARBARA Administration Protocol Levothyroxine Sodium 50 mcg 06/30/24 06:30 07/05/24 05:36 Levothyroxine Sodium 50 Mcg Tablet FEED TUBE 50 mcg DAILY@0630 BARBARA Administration Methylprednisolone Sodium Succinate 40 mg 07/05/24 08:00 07/05/24 08:30 Methylprednisolone Sod Succ 40 Mg Vial IV PUSH 40 mg Q12H BARBARA Administration Multi-Ingred Cream/Lotion/Oil/Oint 1 applic 06/29/24 09:00 07/05/24 08:31 Mineral Oil/White Petrolatum Ointment EACH EYE 1 applic Q12HR BARBARA Administration Pantoprazole Sodium 40 mg 06/29/24 09:00 07/05/24 08:30 Pantoprazole Sodium Iv 40 Mg Vial IV PUSH 40 mg DAILY BARBARA Administration Sodium Chloride 10 ml 06/29/24 14:00 07/05/24 12:03 Central Line Flush IV PUSH 10 ml Q8HR BARBARA Administration Sodium Chloride 10 ml 06/29/24 12:40 Central Line Flush IV PUSH PRN PRN with TPN bag changes Sodium Chloride 20 ml 06/29/24 12:40 Central Line Flush IV PUSH PRN PRN after blood draws Sodium Zirconium Cyclosilicate 10 gm 07/04/24 08:00 07/05/24 08:30 Sodium Zirconium Cyclosilicate 10 Gm Powd.Pack PO 10 gm Q12H BARBARA Administration Radiology Results: ITS Impressions Abdomen X-Ray 06/28/24 20:03 IMPRESSION: Nasogastric tube in good position and ready for immediate use. Abdomen Ultrasound 07/03/24 14:12 IMPRESSION: 1. Normal right upper quadrant ultrasound status post cholecystectomy. Chest X-Ray 07/05/24 08:22 IMPRESSION: 1. Emphysema with unchanged linear discoid atelectasis/scarring at the bilateral lung bases. Labs Labs: Laboratory Tests 07/05/24 05:12 07/05/24 05:12 Calcium 7.8 L Phosphorus 4.4 Magnesium 2.7 H Total Bilirubin 0.3 AST 53 H ALT 57 H Alkaline Phosphatase 85 Total Protein 6.0 L Albumin 2.9 L Microbiology 06/28/24 18:10 Blood Blood Culture - Final 06/28/24 18:10 Blood Blood Culture - Final
[2024-07-05 11:49] LABS: Alveolar/Arterial O2 Gradient 127.6 mmHg; Base Excess ABG 0.3 mEq/l (+/-2.0); Carboxyhemoglobin 0.9 % THb (0-2.0); Fractional Inspired Oxygen 40 %; HCO3 ABG 29.4 mEq/l (22.0-26.0); Methemoglobin ABG 0.3 %THb (0-1.5); Oxygen Content ABG 15.4 %vol (16.0-22.0); Oxygen Saturation ABG 91.7 % (95.0-100.0); Oxyhemoglobin 91.4 % THb (90.0-100.0); PO2 ABG 74.7 mmHg (80.0-100.0); PO2 FiO2 Ratio Arterial Blood 1.87 %; Reduced Hemoglobin 7.4 %THb (0-5.0); Total Hemoglobin 11.9 g/dL (12.0-18.0)
--- NOTE | 2024-07-05 11:50 | WPDINTPN ---
Progress Note: A&P Assessment and Plan (1) Acute on chronic respiratory failure with hypoxia and hypercapnia: Code(s): J96.21 - Acute and chronic respiratory failure with hypoxia; J96.22 - Acute and chronic respiratory failure with hypercapnia Status: Acute Assessment and Plan: Acute on chronic respiratory failure secondary to severe COPD exacerbation. Community-acquired pneumonia although chest x-ray is not suggestive and patient is low procalcitonin level. WBC elevated MRSA screen negative 06/28: Blood cultures negative x2 -Continue Rocephin (06/28) -status post 5 days of doxycycline -DC vancomycin (06/29) -Continue bronchodilators, -will start decreasing Solu-Medrol -sedated with fentanyl and Versed infusion, -off Nimbex infusion as of 07/04/202407/02: Patient did have high peak pressures, after switching her from propofol to fentanyl and Versed due to elevated triglycerides. She was started on Nimbex infusion which improved her oxygenation, respiratory status and improved air entry. 07/03: Remains on Nimbex, adequate air entry, peak pressures are within normal limits continue fentanyl Versed infusion for now, will start weaning Nimbex, will maintain RASS of 0 to -2 on sedation meds 07/04: Chest x-ray, ABGs reviewed, ventilator adjusted, increased respiratory rate 22 and increased FiO2 to 45%, maintain O2 sats greater than 90%. Have also asked the bedside RN to start weaning the Nimbex to off -07/05: Patient has prolonged expiratory phase, decrease respiratory rate, increased I to E ratio, increased tidal volume. Will repeat ABGs (2) Acute exacerbation of chronic obstructive pulmonary disease: Code(s): J44.1 - Chronic obstructive pulmonary disease with (acute) exacerbation Status: Acute Assessment and Plan: Continue mechanical ventilation, bronchodilators, antibiotics, steroids (3) Elevated troponin: Code(s): R77.8 - Other specified abnormalities of plasma proteins Status: Acute Assessment and Plan: Patient has elevated troponin likely secondary to demand ischemia from acute respiratory failure. EKG reviewed and does not show any ST elevation. Patient does not have any documented history of coronary disease. Troponins trending down Continue aspirin 81 mg p.o. daily and statin Appreciate cardiology evaluation and recommendation Hold beta-mika due to sinus bradycardia while on sedation 06/29/2024: Echocardiogram Summary 1. The left ventricle is normal in size with thickened left ventricular rodríguez. The overall left ventricular systolic function appears preserved. Cannot rule out very mild hypokinesis of the apical wall. 2. The right ventricle is normal in size and systolic function. 3. The there is a small amount of pericardial effusion with no echocardiographic evidence of cardiac tamponade. (4) Hypothyroidism: Code(s): E03.9 - Hypothyroidism, unspecified Status: Acute Assessment and Plan: Continue levothyroxine. -TSH level - within normal limits (5) Electrolyte abnormality: Code(s): E87.8 - Other disorders of electrolyte and fluid balance, not elsewhere classified Status: Acute Assessment and Plan: Patient hyperkalemic, continue [facility] [place] Nephrology evaluation and recommendations (6) Elevated LFTs: Code(s): R79.89 - Other specified abnormal findings of blood chemistry Status: Acute Assessment and Plan: Right upper quadrant ultrasound was normal, status post cholecystectomy -hepatitis panel was within normal limit Plan DVT prophylaxis -Lovenox Stress ulcer prophylaxis -PPI Nutrition -tolerating tube feeds Code Status - Full Code Total Critical Care Time - 32 minutes Discussed with patient's and updated with patient's condition and plan of care. I answered all his questions Due to a high probability of clinically significant, life threatening deterioration, the patient required my highest level of preparedness to intervene emergently and I personally spent this critical care time directly and personally managing the patient. This critical care time included obtaining a history; examining the patient; pulse oximetry; ordering and review of studies; arranging urgent treatment with development of a management plan; evaluation of patient's response to treatment; frequent reassessment; and discussions with other providers. It was exclusive of separately billable procedures and treating other patients and teaching time. Please see Assessment and Plan section and the rest of the note for further information on patient assessment and treatment This dictation may have been done utilizing a voice recognition system. Attempts have been made to correct errors. However, there may be uncorrected grammatical, spelling, and recognitions errors present. Subjective Date/time seen: 07/05/24 11:50 Interval history: Reason for consult: COPD exacerbation, acute hypercapnic respiratory failure, NSTEMI with elevated troponin 07/05/2024: Patient seen and examined in the ICU, remains intubated on CMV mode of ventilation, peep of 8, 50% FiO2. Sedated with fentanyl and Versed infusion, off Nimbex infusion since 07/04/2024 ventilator synchrony. Afebrile, adequate urine output, hemodynamically stable, tolerating tube feeds significantly improved air entry bilaterally this morning Review of Systems Review of Systems: ROS unobtainable: Yes unobtainable due to endotracheal tube, unobtainable due to medical condition and unobtainable due to mental status Exam Narrative: General: Pt is sedated and intubated and on mechanical ventilation Lungs/Chest: Trachea central, better air entry this morning, no wheezing or rales. Cardiac: RRR. Normal S1 S2. No murmurs Circulation: Pedal pulses are intact and symmetrical. Abdomen: Decreased bowel sounds. Obese. Soft. NT. ND. Extremities: No clubbing, cyanosis or edema. Warm : [place] in place Neurologic: Intubated and sedated Off Nimbexx, pupils equal and reactive. Does not open her eyes or follow simple commands Objective Data Vital Signs Vital Signs: Vital Signs - 24 hr 07/04/24 11:55 07/04/24 11:56 07/04/24 12:00 Temperature Pulse Rate 89 89 Respiratory Rate 22 H 24 H Blood Pressure Pulse Oximetry Oxygen Delivery Mechanical Ventilation Fraction of Inspired Oxygen 55 07/04/24 12:00 07/04/24 12:00 07/04/24 12:13 Temperature 98.9 F Pulse Rate 89 Respiratory Rate 18 Blood Pressure 92/65 L Pulse Oximetry 87 L Oxygen Delivery Fraction of Inspired Oxygen 45 55 07/04/24 12:14 07/04/24 12:50 07/04/24 13:00 Temperature Pulse Rate 86 89 Respiratory Rate 22 H 24 H Blood Pressure Pulse Oximetry Oxygen Delivery Fraction of Inspired Oxygen 55 07/04/24 13:10 07/04/24 13:33 07/04/24 14:00 Temperature Pulse Rate 88 90 82 Respiratory Rate 22 H 22 H 22 H Blood Pressure 106/86 Pulse Oximetry 92 Oxygen Delivery Fraction of Inspired Oxygen 07/04/24 14:05 07/04/24 14:05 07/04/24 14:09 Temperature Pulse Rate 93 93 88 Respiratory Rate 22 H 22 H Blood Pressure Pulse Oximetry 93 Oxygen Delivery Mechanical Ventilation Fraction of Inspired Oxygen 55 07/04/24 14:10 07/04/24 14:19 07/04/24 14:34 Temperature Pulse Rate 88 86 82 Respiratory Rate 24 H 22 H 22 H Blood Pressure Pulse Oximetry Oxygen Delivery Fraction of Inspired Oxygen 07/04/24 14:34 07/04/24 14:35 07/04/24 14:44 Temperature Pulse Rate 84 83 87 Respiratory Rate 22 H 22 H 22 H Blood Pressure 86/56 L 94/58 L Pulse Oximetry 94 95 Oxygen Delivery Fraction of Inspired Oxygen 07/04/24 15:54 07/04/24 15:55 07/04/24 16:00 Temperature Pulse Rate 80 80 Respiratory Rate 22 H 22 H Blood Pressure Pulse Oximetry Oxygen Delivery Fraction of Inspired Oxygen 55 07/04/24 16:00 07/04/24 16:00 07/04/24 17:04 Temperature 98.6 F Pulse Rate 81 82 Respiratory Rate 22 H Blood Pressure 95/62 L Pulse Oximetry 95 94 Oxygen Delivery Mechanical Ventilation Mechanical Ventilation Fraction of Inspired Oxygen 55 55 07/04/24 17:35 07/04/24 17:35 07/04/24 17:36 Temperature Pulse Rate 81 81 84 Respiratory Rate 22 H 22 H 22 H Blood Pressure Pulse Oximetry Oxygen Delivery Fraction of Inspired Oxygen 07/04/24 17:36 07/04/24 18:00 07/04/24 18:14 Temperature Pulse Rate 84 84 86 Respiratory Rate 22 H 22 H 22 H Blood Pressure 137/78 Pulse Oximetry 93 Oxygen Delivery Fraction of Inspired Oxygen 07/04/24 18:15 07/04/24 19:00 07/04/24 19:00 Temperature Pulse Rate 84 89 89 Respiratory Rate 22 H 20 20 Blood Pressure Pulse Oximetry Oxygen Delivery Fraction of Inspired Oxygen 07/04/24 20:00 07/04/24 20:00 07/04/24 20:00 Temperature 97.8 F Pulse Rate 89 89 89 Respiratory Rate 20 20 20 Blood Pressure 96/78 L Pulse Oximetry 92 Oxygen Delivery Fraction of Inspired Oxygen 07/04/24 20:00 07/04/24 20:00 07/04/24 20:00 Temperature Pulse Rate 88 Respiratory Rate Blood Pressure Pulse Oximetry Oxygen Delivery Mechanical Ventilation Fraction of Inspired Oxygen 55 55 07/04/24 21:35 07/04/24 21:36 07/04/24 21:49 Temperature Pulse Rate 86 82 86 Respiratory Rate 22 H 22 H Blood Pressure Pulse Oximetry 94 Oxygen Delivery Mechanical Ventilation Fraction of Inspired Oxygen 55 07/04/24 22:00 07/04/24 22:00 07/04/24 22:00 Temperature Pulse Rate 85 85 83 Respiratory Rate 22 H 22 H Blood Pressure Pulse Oximetry Oxygen Delivery Fraction of Inspired Oxygen 07/04/24 22:00 07/04/24 23:00 07/04/24 23:00 Temperature Pulse Rate 83 82 82 Respiratory Rate 22 H 22 H 22 H Blood Pressure 87/50 L Pulse Oximetry 96 Oxygen Delivery Fraction of Inspired Oxygen 07/04/24 23:45 07/05/24 00:00 07/05/24 00:00 Temperature Pulse Rate 81 82 82 Respiratory Rate 22 H 22 H Blood Pressure Pulse Oximetry 94 Oxygen Delivery Mechanical Ventilation Fraction of Inspired Oxygen 55 07/05/24 00:00 07/05/24 00:00 07/05/24 00:00 Temperature Pulse Rate 83 Respiratory Rate Blood Pressure Pulse Oximetry Oxygen Delivery Mechanical Ventilation Fraction of Inspired Oxygen 55 55 07/05/24 00:00 07/05/24 01:00 07/05/24 02:00 Temperature 99.0 F Pulse Rate 82 87 88 Respiratory Rate 22 H 22 H Blood Pressure 92/56 L 104/67 Pulse Oximetry 93 96 Oxygen Delivery Fraction of Inspired Oxygen 07/05/24 02:00 07/05/24 02:00 07/05/24 02:00 Temperature Pulse Rate 88 88 88 Respiratory Rate 22 H 22 H 22 H Blood Pressure 119/58 L Pulse Oximetry 97 Oxygen Delivery Fraction of Inspired Oxygen 07/05/24 02:23 07/05/24 02:24 07/05/24 02:49 Temperature Pulse Rate 84 84 88 Respiratory Rate 22 H 22 H Blood Pressure Pulse Oximetry 97 Oxygen Delivery Mechanical Ventilation Fraction of Inspired Oxygen 55 07/05/24 04:00 07/05/24 04:00 07/05/24 04:00 Temperature Pulse Rate 79 79 Respiratory Rate 22 H 22 H Blood Pressure Pulse Oximetry Oxygen Delivery Mechanical Ventilation Fraction of Inspired Oxygen 50 07/05/24 04:00 07/05/24 04:00 07/05/24 04:00 Temperature 98.1 F Pulse Rate 80 80 Respiratory Rate 22 H Blood Pressure 88/53 L Pulse Oximetry 96 Oxygen Delivery Fraction of Inspired Oxygen 50 07/05/24 05:20 07/05/24 05:25 07/05/24 05:35 Temperature Pulse Rate 84 116 H 103 H Respiratory Rate Blood Pressure 121/67 125/62 Pulse Oximetry 97 Oxygen Delivery Mechanical Ventilation Fraction of Inspired Oxygen 50 02/09/25 05:35 07/05/24 06:00 07/05/24 06:00 Temperature Pulse Rate 103 H 96 96 Respiratory Rate 22 H Blood Pressure 125/62 Pulse Oximetry Oxygen Delivery Fraction of Inspired Oxygen 07/05/24 06:00 07/05/24 06:00 07/05/24 06:00 Temperature Pulse Rate 96 97 96 Respiratory Rate 22 H 22 H Blood Pressure 105/66 105/66 Pulse Oximetry 97 Oxygen Delivery Fraction of Inspired Oxygen 07/05/24 07:31 07/05/24 07:32 07/05/24 07:48 Temperature Pulse Rate 59 L 84 83 Respiratory Rate 24 H 22 H Blood Pressure Pulse Oximetry 94 Oxygen Delivery Mechanical Ventilation Fraction of Inspired Oxygen 50 07/05/24 08:00 07/05/24 08:00 07/05/24 08:00 Temperature Pulse Rate 81 81 Respiratory Rate 22 H 22 H Blood Pressure Pulse Oximetry Oxygen Delivery Mechanical Ventilation Fraction of Inspired Oxygen 50 07/05/24 08:00 07/05/24 08:00 07/05/24 08:00 Temperature 97.8 F Pulse Rate 81 81 Respiratory Rate 22 H Blood Pressure 104/61 Pulse Oximetry 97 Oxygen Delivery Fraction of Inspired Oxygen 50 07/05/24 08:00 07/05/24 08:40 07/05/24 08:41 Temperature Pulse Rate 82 81 Respiratory Rate Blood Pressure 104/61 Pulse Oximetry 96 Oxygen Delivery Mechanical Ventilation Fraction of Inspired Oxygen 50 50 07/05/24 10:00 07/05/24 10:00 07/05/24 10:00 Temperature Pulse Rate 78 78 78 Respiratory Rate 16 Blood Pressure 106/64 106/64 Pulse Oximetry 92 Oxygen Delivery Fraction of Inspired Oxygen 07/05/24 10:00 07/05/24 10:00 07/05/24 10:59 Temperature Pulse Rate 78 78 76 Respiratory Rate 16 16 Blood Pressure 119/60 Pulse Oximetry Oxygen Delivery Fraction of Inspired Oxygen 07/05/24 11:23 Temperature Pulse Rate 80 Respiratory Rate Blood Pressure Pulse Oximetry 93 Oxygen Delivery Mechanical Ventilation Fraction of Inspired Oxygen 40 Intake/Output Intake/Output: Intake & Output 07/02/24 07/03/24 07/04/24 07/05/24 23:59 23:59 23:59 23:59 Intake Total 1994.6 1599.4 1955.0 1132.3 Output Total 975 1200 1050 350 Balance 1019.6 399.4 905.0 782.3 Meds/Results Medications: Active Medications Generic Name Dose Route Start Last Admin Trade Name Freq PRN Reason Stop Dose Admin Albuterol/Ipratropium 3 ml 06/29/24 02:00 07/05/24 07:30 Ipratropium 0.5 Mg/Albuterol Sulfate 2.5 Mg Ampul.Neb 3 Ml INHALATION 3 ml Q6HRT BARBARA Administration Aspirin 81 mg 07/01/24 08:00 07/05/24 08:30 Aspirin 81 Mg Chewable Tablet PO 81 mg DAILY@0800 BARBARA Administration Atorvastatin Calcium 40 mg 06/29/24 09:00 07/05/24 08:30 Atorvastatin 40 Mg Tablet PO 40 mg DAILY BARBARA Administration Dextrose 12.5 gm 06/29/24 08:08 Dextrose 50% 25 Gm/50 Ml Syringe IV PUSH PRN PRN Hypoglycemia Protocol Enoxaparin Sodium 40 mg 06/29/24 09:00 07/05/24 08:30 Enoxaparin 40 Mg/0.4 Ml Syringe SUB-Q 40 mg DAILY BARBARA Administration Glucagon 1 mg 06/29/24 08:08 Glucagon For Inj 1 Mg Vial IM PRN PRN Hypoglycemia Protocol Glucose 15 gm 06/29/24 08:08 Glucose Oral Gel 15 Gm Of Glucse In 37.5 Gm Tube PO PRN PRN Hypoglycemia Protocol Ceftriaxone Sodium 2 gm in 100 mls @ 200 mls/hr 06/28/24 20:00 07/04/24 21:45 Rocephin 2 Gm/Ns 100 Ml IVPB Infused Q24H BARBARA Infusion Dextrose 1,000 mls @ 100 mls/hr 06/29/24 08:08 Dextrose 5% 1,000 Ml IVPB PRN PRN Hypoglycemia Protocol Fentanyl Citrate 2,500 mcg in 250 mls @ 10 mls/hr 07/01/24 08:50 07/05/24 10:00 Fentanyl 2,500 Mcg/Ns 250 Ml IV CONT 100 mcg/hr .Q25H BARBARA 10 mls/hr Titration Protocol 100 MCG/HR Midazolam HCl 100 mg in 100 mls @ 5 mls/hr 07/01/24 08:50 07/05/24 10:00 Versed 100 Mg/Ns 100 Ml IV CONT 5 mg/hr .Q20H BARBARA 5 mls/hr Titration Protocol 5 MG/HR Amiodarone HCl/Dextrose 360 mg in 200 mls @ 16.667 mls/hr 07/05/24 11:30 07/05/24 10:59 Nexterone 360 Mg/D5w 200 Ml IV CONT 07/06/24 06:00 0.5 mg/min .Q12H BARBARA 16.67 mls/hr Administration Protocol 0.5 MG/MIN Albumin Human 100 mls @ 60 mls/hr 07/05/24 12:00 Albutein IVPB 07/06/24 07:39 Q6HR BARBARA Insulin Aspart 3 - 6 units 06/29/24 12:00 07/05/24 05:55 Insulin Aspart (*Bkc) 100 Units/Ml SUB-Q 3 units Q6HR BARBARA Administration Protocol Levothyroxine Sodium 50 mcg 06/30/24 06:30 07/05/24 05:36 Levothyroxine Sodium 50 Mcg Tablet FEED TUBE 50 mcg DAILY@0630 BARBARA Administration Methylprednisolone Sodium Succinate 40 mg 07/05/24 08:00 07/05/24 08:30 Methylprednisolone Sod Succ 40 Mg Vial IV PUSH 40 mg Q12H BARBARA Administration Multi-Ingred Cream/Lotion/Oil/Oint 1 applic 06/29/24 09:00 07/05/24 08:31 Mineral Oil/White Petrolatum Ointment EACH EYE 1 applic Q12HR BARBARA Administration Pantoprazole Sodium 40 mg 06/29/24 09:00 07/05/24 08:30 Pantoprazole Sodium Iv 40 Mg Vial IV PUSH 40 mg DAILY BARBARA Administration Sodium Chloride 10 ml 06/29/24 14:00 07/05/24 05:37 Central Line Flush IV PUSH 10 ml Q8HR BARBARA Administration Sodium Chloride 10 ml 06/29/24 12:40 Central Line Flush IV PUSH PRN PRN with TPN bag changes Sodium Chloride 20 ml 06/29/24 12:40 Central Line Flush IV PUSH PRN PRN after blood draws Sodium Zirconium Cyclosilicate 10 gm 07/04/24 08:00 07/05/24 08:30 Sodium Zirconium Cyclosilicate 10 Gm Powd.Pack PO 10 gm Q12H BARBARA Administration Radiology Results: ITS Impressions Abdomen X-Ray 06/28/24 20:03 IMPRESSION: Nasogastric tube in good position and ready for immediate use. Abdomen Ultrasound 07/03/24 14:12 IMPRESSION: 1. Normal right upper quadrant ultrasound status post cholecystectomy. Chest X-Ray 07/05/24 08:22 IMPRESSION: 1. Emphysema with unchanged linear discoid atelectasis/scarring at the bilateral lung bases. Labs Labs: Laboratory Results - last 24 hr 07/04/24 07/05/24 07/05/24 18:13 00:24 05:12 WBC 17.8 H RBC 3.83 L Hgb 10.9 L Hct 36.3 L MCV 94.8 MCH 28.5 MCHC 30.0 L RDW 18.3 H Plt Count 340 MPV 11.5 H Immature Gran % (Auto) 1.0 H Neut % (Auto) 78.1 H Lymph % (Auto) 10.2 L Clinch % (Auto) 10.6 H Eos % (Auto) 0.0 Baso % (Auto) 0.1 L Lymph # (Auto) 1.81 Clinch # (Auto) 1.9 H Eos # (Auto) 0.0 Baso # (Auto) 0.0 Abs Immat Gran (auto) 0.18 H Absolute Neuts (auto) 13.9 H Absolute Nucleated RBC 0.160 H Nucleated RBC % 0.9 H Puncture Site ABG pH ABG pCO2 ABG pO2 ABG PO2/FiO2 Ratio ABG HCO3 ABG O2 Saturation ABG O2 Content ABG Base Excess A-a Gradient Oxyhemoglobin Carboxyhemoglobin Methemoglobin Reduced Hemoglobin Total Hemoglobin O2 Delivery Device O2 Liters/Min Minute Volume Vent Rate Vent Mode FiO2 Tidal Volume PEEP Peak Inspir Pressure Pressure Support Sodium 144 Potassium 5.2 H Chloride 106 Carbon Dioxide 29 Anion Gap 9 BUN 89 H D Creatinine 1.44 H Estim Creat Clear Calc 27 Estimated GFR 43 L Glucose 238 H POC Capillary Glucose 184 H 217 H Calcium 7.8 L Phosphorus 4.4 Magnesium 2.7 H Total Bilirubin 0.3 AST 53 H ALT 57 H Alkaline Phosphatase 85 Total Protein 6.0 L Albumin 2.9 L 07/05/24 05:48 WBC RBC Hgb Hct MCV MCH MCHC RDW Plt Count MPV Immature Gran % (Auto) Neut % (Auto) Lymph % (Auto) Clinch % (Auto) Eos % (Auto) Baso % (Auto) Lymph # (Auto) Clinch # (Auto) Eos # (Auto) Baso # (Auto) Abs Immat Gran (auto) Absolute Neuts (auto) Absolute Nucleated RBC Nucleated RBC % Puncture Site Right radial ABG pH 7.258 L* ABG pCO2 59.1 H ABG pO2 130.0 H ABG PO2/FiO2 Ratio 2.60 ABG HCO3 25.8 ABG O2 Saturation 98.1 ABG O2 Content 16.3 ABG Base Excess -2.1 A-a Gradient 160.0 Oxyhemoglobin 97.6 Carboxyhemoglobin 0.6 Methemoglobin 0.1 Reduced Hemoglobin 1.7 Total Hemoglobin 11.7 L O2 Delivery Device Ventilator O2 Liters/Min Not Reportable Minute Volume Not Reportable Vent Rate 22 Vent Mode Cmv FiO2 50 Tidal Volume 400 PEEP 8 Peak Inspir Pressure Not Reportable Pressure Support Not Reportable Sodium Potassium Chloride Carbon Dioxide Anion Gap BUN Creatinine Estim Creat Clear Calc Estimated GFR Glucose POC Capillary Glucose Calcium Phosphorus Magnesium Total Bilirubin AST ALT Alkaline Phosphatase Total Protein Albumin Quality VTE Prophylaxis VTE prophylaxis: pharmacologic ordered
[2024-07-05 11:57] LABS: PCO2 ABG 72.1 mmHg (35.0-45.0); pH ABG 7.228 (7.350-7.450)
[2024-07-05 11:58] LABS: Arterial Blood Gas PEEP 5 cmH2O; Arterial Blood Gas Tidal Volume 450 ml; Arterial Blood Gas Vent Mode CMV; Arterial Blood Gas Ventilator rate 16 /MIN; Device VENTILATOR; Site Drawn RIGHT RADIAL
[2024-07-05 11:59] LABS: Glucose Point of Care 243 mg/dl (65-105)
[2024-07-05] MEDS: ALBUMIN HUMAN 25% 25 GM/100 ML 100 ML IVPB ×2 (12:03→17:13)
[2024-07-05] MEDS: MIDAZOLAM 100MG/NS 100ML(*CRX) 100 MG/100 ML BAG IV CONT (13:28)
[2024-07-05] MEDS: FENTANYL 2,500MCG/NS250ML(*CRX 2,500 MCG/250 ML BAG 10 MCG IV CONT (13:28)
[2024-07-05 16:57] LABS: Creatinine Urine 73.1 mg/dL; Total Protein Urine Random 48 mg/dL; Ur Ttl Prot Creatinine Ratio 0.66 mg/mg (0-0.20)
[2024-07-05 16:59] LABS: Potassium Urine Random 37.5 meq/L; Sodium Urine Random 34 meq/L; Total Protein Urine Random 47 mg/dL; Urea Random Urine 702 MG/DL
[2024-07-05 17:10] LABS: Eosinophil Urine Rare % (None Seen); Urine Eos QC 2nd Tech Confirmed
[2024-07-05 17:41] LABS: Glucose Point of Care 262 mg/dl (65-105)
[2024-07-05] MEDS: cefTRIAXone 2 GM/NS 100 ML 2 GM/100 ML BAG IVPB (20:49)
[2024-07-06] VITALS (44 sets, daily range): BP systolic 94–182; BP diastolic 41–80; PULSE 63–210; RESP 16–27; TEMP 36.3–37.4; O2SAT 92–99
[2024-07-06] MEDS: ALBUMIN HUMAN 25% 25 GM/100 ML 100 ML IVPB ×4 (00:24→18:31)
[2024-07-06] MEDS: INSULIN ASPART (*BKC) 100 UNITS/ML SUB-Q ×4 (00:25→18:52)
[2024-07-06 01:07] LABS: Glucose Point of Care 267 mg/dl (65-105)
[2024-07-06] MEDS: IPRATROPIUM 0.5 MG/ALBUTEROL SULFATE 2.5 MG AMPUL.NEB 3 ML INHALATION ×4 (02:14→21:22)
[2024-07-06 04:54] LABS: Alveolar/Arterial O2 Gradient 151.2 mmHg; Base Excess ABG 4.4 mEq/l (+/-2.0); Fractional Inspired Oxygen 40 %; HCO3 ABG 30.4 mEq/l (22.0-26.0); Methemoglobin ABG 0.3 %THb (0-1.5); Oxygen Content ABG 10.9 %vol (16.0-22.0); Oxygen Saturation ABG 93.7 % (95.0-100.0); Oxyhemoglobin 92.6 % THb (90.0-100.0); PCO2 ABG 54.1 mmHg (35.0-45.0); PO2 ABG 71.8 mmHg (80.0-100.0); Reduced Hemoglobin 6.1 %THb (0-5.0); Total Hemoglobin 8.3 g/dL (12.0-18.0); pH ABG 7.368 (7.350-7.450)
[2024-07-06] MEDS: LEVOTHYROXINE SODIUM 50 MCG TABLET FEED TUBE (05:05)
[2024-07-06] MEDS: CENTRAL LINE FLUSH 10 ML IV PUSH ×3 (05:05→21:01)
[2024-07-06 05:24] LABS: Device VENTILATOR; Modified Allen's Test Pass; Site Drawn RIGHT RADIAL
[2024-07-06 05:25] LABS: Arterial Blood Gas PEEP 5 cmH2O; Arterial Blood Gas Tidal Volume 480 ml; Arterial Blood Gas Vent Mode CMV; Arterial Blood Gas Ventilator rate 20 /MIN
[2024-07-06 05:28] LABS: Glucose Point of Care 247 mg/dl (65-105)
[2024-07-06 06:54] LABS: Basophils Percent Auto 0.1 % (0.2-1.2); Hematocrit 24.4 % (37.0-47.0); Hemoglobin 7.5 g/dL (12.0-15.0); Immature Granulocyte Absolute 0.07 K/mm3 (0.00-0.031); Immature Granulocyte Percent A 0.6 % (0-0.5); Lymphocytes Absolute Auto 0.44 K/mm3 (0.9-3.2); Lymphocytes Percent Auto 3.9 % (18.3-44.2); Mean Corpuscular HGB Conc 30.7 g/dl (32-36); Mean Corpuscular Hemoglobin 27.9 pg (26-34); Mean Corpuscular Volume 90.7 fl (80-100); Mean Platelet Volume 11.3 fl (7.4-10.4); Monocytes Absolute Auto 1.2 K/mm3 (0.1-0.6); Monocytes Percent Auto 10.7 % (2.6-8.5); Neutrophils Absolute Auto 9.6 K/mm3 (1.3-6.7); Neutrophils Percent Auto 84.7 % (45.5-73.1); Nucleated Red Blood Cells Perc 0.6 % (0.0-0.2); Platelet Count Result 214 k/mm3 (150-375); Red Blood Count 2.69 M/mm3 (4.2-5.4); White Blood Count 11.3 K/mm3 (4.5-10.0)
[2024-07-06 07:05] LABS: Creatine Kinase 813 U/L (30-135)
[2024-07-06 07:07] LABS: Alanine Aminotransferase 33 U/L (6-35); Albumin Level 4.1 g/dL (3.5-5.1); Alkaline Phosphatase 56 U/L (38-126); Anion Gap 14 mmol/L (4-12); Aspartate Amino Transferase 33 U/L (14-36); Bilirubin,Total 0.3 mg/dL (0.2-1.3); Blood Urea Nitrogen 113 mg/dL (7-17); Calcium 8.1 mg/dL (8.4-10.2); Carbon Dioxide 27 mmol/L (22-30); Chloride 103 mmol/L (98-107); Estimated CRCL calculation 22 ml/min; Estimated Glomerular Filt Rate 33; Glucose 217 mg/dL (65-110); Magnesium 2.8 mg/dL (1.6-2.3); Phosphorus 4.3 mg/dL (2.5-4.5); Potassium 4.5 mmol/L (3.4-5.0); Sodium 144 mmol/L (137-145)
[2024-07-06 07:36] LABS: Cortisol Random 7.21 ug/dL
[2024-07-06] MEDS: ASPIRIN 81 MG CHEWABLE TABLET PO (08:34)
[2024-07-06] MEDS: ATORVASTATIN 40 MG TABLET PO (08:34)
[2024-07-06] MEDS: methylPREDNISolone SOD SUCC 40 MG VIAL 20 MG IV PUSH (08:35)
[2024-07-06] MEDS: PANTOPRAZOLE SODIUM IV 40 MG VIAL IV PUSH ×2 (08:36→21:01)
[2024-07-06] MEDS: MINERAL OIL/WHITE PETROLATUM OINTMENT 1 APPLIC EACH EYE ×2 (08:36→21:01)
[2024-07-06] MEDS: ENOXAPARIN 30 MG/0.3 ML SYRINGE SUB-Q (08:46)
[2024-07-06] MEDS: INSULIN GLARGINE (*BKC) 100 UNITS/ML 8 UNITS SUB-Q (08:47)
--- NOTE | 2024-07-06 09:57 | P.PNNP_ITS ---
Progress Note: A&P Assessment and Plan (1) RASHEL (acute kidney injury): Code(s): N17.9 - Acute kidney failure, unspecified Status: Acute Assessment and Plan: * as noted by labs (since 07/05) * etiology not clear... * possibly due to relative hypotension - noted systolic BP in the high 80s (on 07/04) * intravascular volume depletion(?) * other(?) * reasonable urine output noted * evaluation to date noted: * normal renal ultrasound * urine electrolytes slightly prerenal * rare urine eosinophils * CPK mildly elevated - follow trend * moderate proteinuria * trial of IV albumin today for volume expansion * follow trend of repeat labs (2) Hyperkalemia: Code(s): E87.5 - Hyperkalemia Status: Acute Assessment and Plan: * stable at this time * seemed to start ~ 07/02/24 by lab trend * off K+ supplements * no other culprit medications noted * evaluation to date noted: * renal ultrasound without obstruction * renin and aldosterone levels pending * TSH okay * cortisol lowish (was getting steroids); consider stim test after recheck * CPK mildly elevated * continue medical management for now * #1 complicates evaluation * follow repeat K+ levels (3) Acute on chronic respiratory failure with hypoxia and hypercapnia: Code(s): J96.21 - Acute and chronic respiratory failure with hypoxia; J96.22 - Acute and chronic respiratory failure with hypercapnia Status: Acute Assessment and Plan: * presumably due to COPD exacerbation * complicated by known history of chronic hypoxic/hypercapnic respiratory failure and CHERYL * on ventilator support * on antibiotics, bronchodilators, and steroids * weaning steroids * follow ABGs * ventilator weaning as tolerated (4) Acute exacerbation of chronic obstructive pulmonary disease: Code(s): J44.1 - Chronic obstructive pulmonary disease with (acute) exacerbation Status: Acute Assessment and Plan: * presumed etiology of #3 * continue current therapy (5) Elevated troponin: Code(s): R77.8 - Other specified abnormalities of plasma proteins Status: Acute Assessment and Plan: * felt to be demand ischemia from acute respiratory failure * EKG noted * Cardiology recommendations noted * recent Echo noted (on 06/29): * left ventricular systolic function appears preserved * right ventricle is normal in size and systolic function. * small amount of pericardial effusion with no evidence of cardiac tamponade * ischemic evaluation when more stable (6) Elevated LFTs: Code(s): R79.89 - Other specified abnormal findings of blood chemistry Status: Acute Assessment and Plan: * noted on testing since 07/03 * RUQ u/s was normal - status post cholecystectomy * hepatitis panel normal * follow trend Discussed case with Dr. Toney Will continue to follow. L Subjective Date/time seen: 07/06/24 09:57 Interval history: Follow-up for acute kidney injury/acute renal failure and hyperkalemia. Renal function/creatinine worse today but continues to make good urine output and potassium stable (although was on scheduled lokelma); remains intubated/sedated and on mechanical ventilation; remains hemodynamically stable at the time of my visit; no acute issues/events overnight or earlier this morning. Exam 2 Narrative: General: elderly but WD/WN female intubated/sedated on mechanical ventilation Heart: normal S1 and S2; no rub Lungs: coarse breath sounds Abdomen: soft, nontender, nondistended, decreased bowel sounds Extremities: no cyanosis or clubbing; no edema Skin: warm and intact Objective Data Vital Signs Vital Signs: Vital Signs Temp Pulse Resp BP Pulse Ox O2 Del Method FiO2 07/06/24 12:00 Mechanical Ventilation 07/06/24 12:00 40 07/06/24 12:00 69 07/06/24 12:00 69 20 07/06/24 12:00 69 20 07/06/24 12:00 97.6 F 68 20 137/59 L 99 07/06/24 11:18 68 138/63 07/06/24 10:46 71 98 Mechanical Ventilation 40 07/06/24 10:45 70 20 07/06/24 10:45 63 20 07/06/24 10:30 69 20 07/06/24 10:10 68 20 07/06/24 10:09 68 20 07/06/24 10:00 68 07/06/24 10:00 68 123/60 07/06/24 10:00 97.7 F 68 16 123/6 L 99 07/06/24 09:22 73 20 07/06/24 08:51 67 20 07/06/24 08:37 69 20 07/06/24 08:25 66 20 07/06/24 08:10 71 20 07/06/24 08:10 71 98 Mechanical Ventilation 40 07/06/24 08:00 Mechanical Ventilation 07/06/24 08:00 40 07/06/24 08:00 69 111/55 L 07/06/24 08:00 69 20 07/06/24 08:00 72 07/06/24 08:00 97.4 F L 73 20 118/58 L 96 07/06/24 06:00 67 20 105/51 L 99 07/06/24 06:00 67 07/06/24 06:00 67 20 07/06/24 06:00 67 20 07/06/24 04:51 68 94 Mechanical Ventilation 40 07/06/24 04:00 65 07/06/24 04:00 97.5 F L 64 20 97/45 L 96 07/06/24 04:00 40 07/06/24 04:00 Mechanical Ventilation 40 07/06/24 04:00 64 20 07/06/24 04:00 64 20 07/06/24 02:30 64 20 101/49 L 95 07/06/24 02:23 63 20 07/06/24 02:19 63 96 Mechanical Ventilation 40 07/06/24 02:17 63 20 07/06/24 02:00 63 20 07/06/24 02:00 63 20 07/06/24 02:00 63 07/06/24 02:00 63 20 94/41 L 95 07/06/24 00:00 Mechanical Ventilation 40 07/06/24 00:00 40 07/06/24 00:00 68 07/06/24 00:00 97.7 F 69 20 109/52 L 92 07/06/24 00:00 69 109/52 L 07/06/24 00:00 69 20 07/06/24 00:00 69 20 07/05/24 23:00 68 105/51 L 07/05/24 23:00 68 105/51 L 07/05/24 23:00 68 93 Mechanical Ventilation 40 07/05/24 22:00 68 07/05/24 22:00 69 20 106/49 L 95 07/05/24 22:00 69 106/49 L 07/05/24 22:00 69 20 07/05/24 22:00 69 20 07/05/24 20:07 72 20 07/05/24 20:01 73 96 Mechanical Ventilation 40 07/05/24 20:00 72 07/05/24 20:00 Mechanical Ventilation 40 07/05/24 20:00 40 07/05/24 20:00 97.6 F 72 20 113/49 L 96 07/05/24 20:00 72 20 07/05/24 20:00 72 20 07/05/24 20:00 72 113/49 L 07/05/24 19:59 71 20 07/05/24 18:00 73 20 106/50 L 93 07/05/24 18:00 73 07/05/24 18:00 73 20 07/05/24 18:00 73 20 07/05/24 18:00 73 106/50 L 07/05/24 17:00 70 93 Mechanical Ventilation 40 07/05/24 16:00 97.7 F 72 20 104/50 L 94 07/05/24 16:00 71 07/05/24 16:00 72 20 07/05/24 16:00 72 20 07/05/24 16:00 72 104/50 L 07/05/24 15:54 40 07/05/24 15:54 Mechanical Ventilation 50 07/05/24 14:00 78 20 07/05/24 14:00 78 20 07/05/24 14:00 78 100/57 L 07/05/24 14:00 78 16 100/57 L 94 07/05/24 14:00 77 07/05/24 13:43 75 20 07/05/24 13:35 75 96 Mechanical Ventilation 40 07/05/24 13:32 75 20 07/05/24 13:28 75 20 07/05/24 13:28 75 20 07/05/24 13:28 75 20 07/05/24 13:28 75 20 Intake/Output Intake/Output: Intake & Output 07/03/24 07/04/24 07/05/24 07/06/24 23:59 23:59 23:59 23:59 Intake Total 1599.4 1955.0 2530.0 1389.9 Output Total 1200 1050 600 Balance 399.4 905.0 1930.0 1389.9 Meds/Results Medications: Active Medications Generic Name Dose Route Start Last Admin Trade Name Freq PRN Reason Stop Dose Admin Albuterol/Ipratropium 3 ml 06/29/24 02:00 07/06/24 08:10 Ipratropium 0.5 Mg/Albuterol Sulfate 2.5 Mg Ampul.Neb 3 Ml INHALATION 3 ml Q6HRT BARBARA Administration Aspirin 81 mg 07/01/24 08:00 07/06/24 08:34 Aspirin 81 Mg Chewable Tablet PO 81 mg DAILY@0800 BARBARA Administration Atorvastatin Calcium 40 mg 06/29/24 09:00 07/06/24 08:34 Atorvastatin 40 Mg Tablet PO 40 mg DAILY BARBARA Administration Dextrose 12.5 gm 06/29/24 08:08 Dextrose 50% 25 Gm/50 Ml Syringe IV PUSH PRN PRN Hypoglycemia Protocol Enoxaparin Sodium 30 mg 07/06/24 09:00 07/06/24 08:46 Enoxaparin 30 Mg/0.3 Ml Syringe SUB-Q 30 mg DAILY BARBARA Administration Glucagon 1 mg 06/29/24 08:08 Glucagon For Inj 1 Mg Vial IM PRN PRN Hypoglycemia Protocol Glucose 15 gm 06/29/24 08:08 Glucose Oral Gel 15 Gm Of Glucse In 37.5 Gm Tube PO PRN PRN Hypoglycemia Protocol Dextrose 1,000 mls @ 100 mls/hr 06/29/24 08:08 Dextrose 5% 1,000 Ml IVPB PRN PRN Hypoglycemia Protocol Fentanyl Citrate 2,500 mcg in 250 mls @ 0 mls/hr 07/01/24 08:50 07/06/24 12:00 Fentanyl 2,500 Mcg/Ns 250 Ml IV CONT 0 mcg/hr .Q0M BARBARA 0 mls/hr Titration Protocol Midazolam HCl 100 mg in 100 mls @ 0 mls/hr 07/01/24 08:50 07/06/24 12:00 Versed 100 Mg/Ns 100 Ml IV CONT 0 mg/hr .Q0M BARBARA 0 mls/hr Titration Protocol Albumin Human 100 mls @ 60 mls/hr 07/06/24 12:00 07/06/24 11:24 Albutein IVPB 07/07/24 07:39 60 mls/hr Q6HR BARBARA Administration Insulin Aspart 3 - 6 units 06/29/24 12:00 07/06/24 11:26 Insulin Aspart (*Bkc) 100 Units/Ml SUB-Q 3 units Q6HR BARBARA Administration Protocol Insulin Glargine 8 units 07/06/24 09:00 07/06/24 08:47 Insulin Glargine (*Bkc) 100 Units/Ml SUB-Q 8 units DAILY BARBARA Administration Levothyroxine Sodium 50 mcg 06/30/24 06:30 07/06/24 05:05 Levothyroxine Sodium 50 Mcg Tablet FEED TUBE 50 mcg DAILY@0630 BARBARA Administration Methylprednisolone Sodium Succinate 20 mg 07/06/24 09:00 07/06/24 08:35 Methylprednisolone Sod Succ 40 Mg Vial IV PUSH 20 mg DAILY BARBARA Administration Multi-Ingred Cream/Lotion/Oil/Oint 1 applic 06/29/24 09:00 07/06/24 08:36 Mineral Oil/White Petrolatum Ointment EACH EYE 1 applic Q12HR BARBARA Administration Pantoprazole Sodium 40 mg 07/06/24 21:00 Pantoprazole Sodium Iv 40 Mg Vial IV PUSH Q12HR BARBARA Sodium Chloride 10 ml 06/29/24 14:00 07/06/24 05:05 Central Line Flush IV PUSH 10 ml Q8HR BARBARA Administration Sodium Chloride 10 ml 06/29/24 12:40 Central Line Flush IV PUSH PRN PRN with TPN bag changes Sodium Chloride 20 ml 06/29/24 12:40 Central Line Flush IV PUSH PRN PRN after blood draws Sodium Zirconium Cyclosilicate 10 gm 07/04/24 08:00 07/06/24 08:36 Sodium Zirconium Cyclosilicate 10 Gm Powd.Pack PO Not Given Q12H [facility] Radiology Results: ITS Impressions Abdomen X-Ray 06/28/24 20:03 IMPRESSION: Nasogastric tube in good position and ready for immediate use. Abdomen Ultrasound 07/03/24 14:12 IMPRESSION: 1. Normal right upper quadrant ultrasound status post cholecystectomy. Chest X-Ray 07/06/24 07:22 Impression: COPD with bibasilar scarring or atelectasis. Support tubes, as above. Renal Ultrasound 07/06/24 08:30 IMPRESSION: 1. No hydronephrosis in either kidney. Labs Labs: Laboratory Tests 07/06/24 06:40 07/06/24 06:40 Calcium 8.1 L Phosphorus 4.3 Magnesium 2.8 H Total Bilirubin 0.3 AST 33 ALT 33 Alkaline Phosphatase 56 Total Creatine Kinase 813 H Total Protein 6.0 L Albumin 4.1
--- NOTE | 2024-07-06 10:52 | P.PNINT_ITS ---
Progress Note: A&P Assessment and Plan (1) Acute on chronic respiratory failure with hypoxia and hypercapnia: Code(s): J96.21 - Acute and chronic respiratory failure with hypoxia; J96.22 - Acute and chronic respiratory failure with hypercapnia Status: Acute Assessment and Plan: Acute on chronic respiratory failure secondary to severe COPD exacerbation. Community-acquired pneumonia although chest x-ray is not suggestive and patient is low procalcitonin level. WBC elevated MRSA screen negative 06/28: Blood cultures negative x2 -status post says 8 days of ceftriaxone -status post 5 days of doxycycline -DC vancomycin (06/29), MRSA screen negative 07/02: Patient did have high peak pressures, after switching her from propofol to fentanyl and Versed due to elevated triglycerides. She was started on Nimbex infusion which improved her oxygenation, respiratory status and improved air entry. 07/03: Remains on Nimbex, adequate air entry, peak pressures are within normal limits continue fentanyl Versed infusion for now, will start weaning Nimbex, will maintain RASS of 0 to -2 on sedation meds 07/04: Chest x-ray, ABGs reviewed, ventilator adjusted, increased respiratory rate 22 and increased FiO2 to 45%, maintain O2 sats greater than 90%. Have also asked the bedside RN to start weaning the Nimbex to off -07/05: Patient has prolonged expiratory phase, decrease respiratory rate, increased I to E ratio, increased tidal volume. Will repeat ABGs -Continue bronchodilators, -Solu-Medrol 20 mg IV q.day -off all sedation, will try to place patient on SBT when she is more awake. If she requires any kind of sedation will start Precedex infusion (2) Acute exacerbation of chronic obstructive pulmonary disease: Code(s): J44.1 - Chronic obstructive pulmonary disease with (acute) exacerbation Status: Acute Assessment and Plan: Continue mechanical ventilation, bronchodilators, antibiotics, steroids (3) Elevated troponin: Code(s): R77.8 - Other specified abnormalities of plasma proteins Status: Acute Assessment and Plan: Patient has elevated troponin likely secondary to demand ischemia from acute respiratory failure. EKG reviewed and does not show any ST elevation. Patient does not have any documented history of coronary disease. Troponins trending down Continue aspirin 81 mg p.o. daily and statin Appreciate cardiology evaluation and recommendation Hold beta-mika due to sinus bradycardia while on sedation 06/29/2024: Echocardiogram Summary 1. The left ventricle is normal in size with thickened left ventricular rodríguez. The overall left ventricular systolic function appears preserved. Cannot rule out very mild hypokinesis of the apical wall. 2. The right ventricle is normal in size and systolic function. 3. The there is a small amount of pericardial effusion with no echocardiographic evidence of cardiac tamponade. (4) Hypothyroidism: Code(s): E03.9 - Hypothyroidism, unspecified Status: Acute Assessment and Plan: Continue levothyroxine. -TSH level - within normal limits (5) Electrolyte abnormality: Code(s): E87.8 - Other disorders of electrolyte and fluid balance, not elsewhere classified Status: Acute Assessment and Plan: Patient hyperkalemic, continue Lokelma -appreciate Nephrology evaluation and recommendations (6) Elevated LFTs: Code(s): R79.89 - Other specified abnormal findings of blood chemistry Status: Acute Assessment and Plan: Right upper quadrant ultrasound was normal, status post cholecystectomy -hepatitis panel was within normal limit (7) RASHEL (acute kidney injury): Code(s): N17.9 - Acute kidney failure, unspecified Status: Acute Assessment and Plan: Acute kidney injury, likely related to hypotension, intravascular volume depletion, BUN elevated likely related to steroids -nephrology has been consulted and appreciate the evaluation and recommendation -discuss with Nephrology, will start albumin 25% x4 doses since she may be intravascularly depleted -monitor urine output, renal function electrolytes 07/06: Renal ultrasound: No hydronephrosis in either kidney. -urine lytes not reflective of prerenal picture -CKD levels elevated to 813 (8) Hyperglycemia: Code(s): R73.9 - Hyperglycemia, unspecified Status: Acute Assessment and Plan: Hyperglycemia likely related to tube feeds and or steroid -weaning steroid -continue Accu-Cheks and sliding scale insulin, -will add Lantus (9) Anemia: Code(s): D64.9 - Anemia, unspecified Status: Acute Assessment and Plan: Patient dropped her hemoglobin to 8.3 from 10.9 (07/05) -check stool for occult blood -iron panel, vitamin B12 and folic acid -will increase Protonix to IV q.12 hours Plan DVT prophylaxis -Lovenox Stress ulcer prophylaxis -PPI IV q.12 hours Nutrition -tolerating tube feeds Code Status - Full Code Total Critical Care Time - 34 minutes -discussed with Nephrology Discussed with patient's and updated with patient's condition and plan of care. I answered all his questions Due to a high probability of clinically significant, life threatening deterioration, the patient required my highest level of preparedness to intervene emergently and I personally spent this critical care time directly and personally managing the patient. This critical care time included obtaining a history; examining the patient; pulse oximetry; ordering and review of studies; arranging urgent treatment with development of a management plan; evaluation of patient's response to treatment; frequent reassessment; and discussions with other providers. It was exclusive of separately billable procedures and treating other patients and teaching time. Please see Assessment and Plan section and the rest of the note for further information on patient assessment and treatment This dictation may have been done utilizing a voice recognition system. Attempts have been made to correct errors. However, there may be uncorrected grammatical, spelling, and recognitions errors present. Subjective Date/time seen: 07/06/24 10:52 Interval history: Reason for consult: COPD exacerbation, acute hypercapnic respiratory failure, NSTEMI with elevated troponin [place] 07/06/2024: Patient seen and examined the ICU, remains intubated on CMV mode of ventilation, peep of 5, 40% FiO2. Sedated with fentanyl and Versed infusion, off Nimbex infusion since 07/04/2024. Afebrile, adequate urine output, hemodynamically stable, tolerating tube feeds significantly improved air entry bilaterally this morning -worsening renal function, potassium is normal. Hyperglycemic. Review of Systems Review of Systems: ROS unobtainable: Yes unobtainable due to endotracheal tube, unobtainable due to medical condition and unobtainable due to mental status Exam Narrative: General: Pt is sedated and intubated and on mechanical ventilation Lungs/Chest: Trachea central, better air entry this morning, no wheezing or rales. Cardiac: RRR. Normal S1 S2. No murmurs Circulation: Pedal pulses are intact and symmetrical. Abdomen: Decreased bowel sounds. Obese. Soft. NT. ND. Extremities: No clubbing, cyanosis or edema. Warm : [place] in place Neurologic: Intubated off sedation, opens her eyes but does not follow simple commands, pupils equal and reactive. Objective Data Vital Signs Vital Signs: Vital Signs - 24 hr 07/05/24 10:59 07/05/24 11:23 07/05/24 12:00 Temperature Pulse Rate 76 80 78 Respiratory Rate 16 Blood Pressure 119/60 Pulse Oximetry 93 Oxygen Delivery Mechanical Ventilation Fraction of Inspired Oxygen 40 07/05/24 12:00 07/05/24 12:00 07/05/24 12:00 Temperature Pulse Rate 78 78 Respiratory Rate 16 Blood Pressure 106/62 Pulse Oximetry Oxygen Delivery Mechanical Ventilation Fraction of Inspired Oxygen 50 07/05/24 12:00 07/05/24 12:00 07/05/24 12:00 Temperature 97.7 F Pulse Rate 78 78 Respiratory Rate 16 Blood Pressure 106/62 Pulse Oximetry 92 Oxygen Delivery Fraction of Inspired Oxygen 50 07/05/24 12:19 07/05/24 12:21 07/05/24 12:33 Temperature Pulse Rate 86 75 Respiratory Rate Blood Pressure 124/76 Pulse Oximetry 95 Oxygen Delivery Mechanical Ventilation Fraction of Inspired Oxygen 40 40 07/05/24 13:28 07/05/24 13:28 07/05/24 13:28 Temperature Pulse Rate 75 75 75 Respiratory Rate 20 20 20 Blood Pressure Pulse Oximetry Oxygen Delivery Fraction of Inspired Oxygen 07/05/24 13:28 07/05/24 13:32 07/05/24 13:35 Temperature Pulse Rate 75 75 75 Respiratory Rate 20 20 Blood Pressure Pulse Oximetry 96 Oxygen Delivery Mechanical Ventilation Fraction of Inspired Oxygen 40 07/05/24 13:43 07/05/24 14:00 07/05/24 14:00 Temperature Pulse Rate 75 77 78 Respiratory Rate 20 16 Blood Pressure 100/57 L Pulse Oximetry 94 Oxygen Delivery Fraction of Inspired Oxygen 07/05/24 14:00 07/05/24 14:00 07/05/24 14:00 Temperature Pulse Rate 78 78 78 Respiratory Rate 20 20 Blood Pressure 100/57 L Pulse Oximetry Oxygen Delivery Fraction of Inspired Oxygen 07/05/24 15:54 07/05/24 15:54 07/05/24 16:00 Temperature Pulse Rate 72 Respiratory Rate Blood Pressure 104/50 L Pulse Oximetry Oxygen Delivery Mechanical Ventilation Fraction of Inspired Oxygen 50 40 07/05/24 16:00 07/05/24 16:00 07/05/24 16:00 Temperature Pulse Rate 72 72 71 Respiratory Rate 20 20 Blood Pressure Pulse Oximetry Oxygen Delivery Fraction of Inspired Oxygen 07/05/24 16:00 07/05/24 17:00 07/05/24 18:00 Temperature 97.7 F Pulse Rate 72 70 73 Respiratory Rate 20 Blood Pressure 104/50 L 106/50 L Pulse Oximetry 94 93 Oxygen Delivery Mechanical Ventilation Fraction of Inspired Oxygen 40 07/05/24 18:00 07/05/24 18:00 07/05/24 18:00 Temperature Pulse Rate 73 73 73 Respiratory Rate 20 20 Blood Pressure Pulse Oximetry Oxygen Delivery Fraction of Inspired Oxygen 07/05/24 18:00 07/05/24 19:59 07/05/24 20:00 Temperature Pulse Rate 73 71 72 Respiratory Rate 20 20 Blood Pressure 106/50 L 113/49 L Pulse Oximetry 93 Oxygen Delivery Fraction of Inspired Oxygen 07/05/24 20:00 07/05/24 20:00 07/05/24 20:00 Temperature 97.6 F Pulse Rate 72 72 72 Respiratory Rate 20 20 20 Blood Pressure 113/49 L Pulse Oximetry 96 Oxygen Delivery Fraction of Inspired Oxygen 07/05/24 20:00 07/05/24 20:00 07/05/24 20:00 Temperature Pulse Rate 72 Respiratory Rate Blood Pressure Pulse Oximetry Oxygen Delivery Mechanical Ventilation Fraction of Inspired Oxygen 40 40 07/05/24 20:01 07/05/24 20:07 07/05/24 22:00 Temperature Pulse Rate 73 72 69 Respiratory Rate 20 20 Blood Pressure Pulse Oximetry 96 Oxygen Delivery Mechanical Ventilation Fraction of Inspired Oxygen 40 07/05/24 22:00 07/05/24 22:00 07/05/24 22:00 Temperature Pulse Rate 69 69 69 Respiratory Rate 20 20 Blood Pressure 106/49 L 106/49 L Pulse Oximetry 95 Oxygen Delivery Fraction of Inspired Oxygen 07/05/24 22:00 07/05/24 23:00 07/05/24 23:00 Temperature Pulse Rate 68 68 68 Respiratory Rate Blood Pressure 105/51 L Pulse Oximetry 93 Oxygen Delivery Mechanical Ventilation Fraction of Inspired Oxygen 40 07/05/24 23:00 07/06/24 00:00 07/06/24 00:00 Temperature Pulse Rate 68 69 69 Respiratory Rate 20 20 Blood Pressure 105/51 L Pulse Oximetry Oxygen Delivery Fraction of Inspired Oxygen 07/06/24 00:00 07/06/24 00:00 07/06/24 00:00 Temperature 97.7 F Pulse Rate 69 69 68 Respiratory Rate 20 Blood Pressure 109/52 L 109/52 L Pulse Oximetry 92 Oxygen Delivery Fraction of Inspired Oxygen 07/06/24 00:00 07/06/24 00:00 07/06/24 02:00 Temperature Pulse Rate 63 Respiratory Rate 20 Blood Pressure 94/41 L Pulse Oximetry 95 Oxygen Delivery Mechanical Ventilation Fraction of Inspired Oxygen 40 40 07/06/24 02:00 07/06/24 02:00 07/06/24 02:00 Temperature Pulse Rate 63 63 63 Respiratory Rate 20 20 Blood Pressure Pulse Oximetry Oxygen Delivery Fraction of Inspired Oxygen 07/06/24 02:17 07/06/24 02:19 07/06/24 02:23 Temperature Pulse Rate 63 63 63 Respiratory Rate 20 20 Blood Pressure Pulse Oximetry 96 Oxygen Delivery Mechanical Ventilation Fraction of Inspired Oxygen 40 07/06/24 02:30 07/06/24 04:00 07/06/24 04:00 Temperature Pulse Rate 64 64 64 Respiratory Rate 20 20 20 Blood Pressure 101/49 L Pulse Oximetry 95 Oxygen Delivery Fraction of Inspired Oxygen 07/06/24 04:00 07/06/24 04:00 07/06/24 04:00 Temperature 97.5 F L Pulse Rate 64 Respiratory Rate 20 Blood Pressure 97/45 L Pulse Oximetry 96 Oxygen Delivery Mechanical Ventilation Fraction of Inspired Oxygen 40 40 07/06/24 04:00 07/06/24 04:51 07/06/24 06:00 Temperature Pulse Rate 65 68 67 Respiratory Rate 20 Blood Pressure Pulse Oximetry 94 Oxygen Delivery Mechanical Ventilation Fraction of Inspired Oxygen 40 07/06/24 06:00 07/06/24 06:00 07/06/24 06:00 Temperature Pulse Rate 67 67 67 Respiratory Rate 20 20 Blood Pressure 105/51 L Pulse Oximetry 99 Oxygen Delivery Fraction of Inspired Oxygen 07/06/24 08:00 07/06/24 08:00 07/06/24 08:00 Temperature 97.4 F L Pulse Rate 73 72 69 Respiratory Rate 20 20 Blood Pressure 118/58 L Pulse Oximetry 96 Oxygen Delivery Fraction of Inspired Oxygen 07/06/24 08:00 07/06/24 08:00 07/06/24 08:00 Temperature Pulse Rate 69 Respiratory Rate Blood Pressure 111/55 L Pulse Oximetry Oxygen Delivery Mechanical Ventilation Fraction of Inspired Oxygen 40 07/06/24 08:10 07/06/24 08:10 07/06/24 08:25 Temperature Pulse Rate 71 71 66 Respiratory Rate 20 20 Blood Pressure Pulse Oximetry 98 Oxygen Delivery Mechanical Ventilation Fraction of Inspired Oxygen 40 07/06/24 08:37 07/06/24 08:51 07/06/24 09:22 Temperature Pulse Rate 69 67 73 Respiratory Rate 20 20 20 Blood Pressure Pulse Oximetry Oxygen Delivery Fraction of Inspired Oxygen 07/06/24 10:00 07/06/24 10:00 07/06/24 10:00 Temperature 97.7 F Pulse Rate 68 68 68 Respiratory Rate 16 Blood Pressure 123/6 L 123/60 Pulse Oximetry 99 Oxygen Delivery Fraction of Inspired Oxygen 07/06/24 10:09 07/06/24 10:10 07/06/24 10:30 Temperature Pulse Rate 68 68 69 Respiratory Rate 20 20 20 Blood Pressure Pulse Oximetry Oxygen Delivery Fraction of Inspired Oxygen 07/06/24 10:45 07/06/24 10:45 07/06/24 10:46 Temperature Pulse Rate 63 70 71 Respiratory Rate 20 20 Blood Pressure Pulse Oximetry 98 Oxygen Delivery Mechanical Ventilation Fraction of Inspired Oxygen 40 Intake/Output Intake/Output: Intake & Output 07/03/24 07/04/24 07/05/24 07/06/24 23:59 23:59 23:59 23:59 Intake Total 1599.4 1955.0 2530.0 1373.3 Output Total 1200 1050 600 Balance 399.4 905.0 1930.0 1373.3 Meds/Results Medications: Active Medications Generic Name Dose Route Start Last Admin Trade Name Freq PRN Reason Stop Dose Admin Albuterol/Ipratropium 3 ml 06/29/24 02:00 07/06/24 08:10 Ipratropium 0.5 Mg/Albuterol Sulfate 2.5 Mg Ampul.Neb 3 Ml INHALATION 3 ml Q6HRT BARBARA Administration Aspirin 81 mg 07/01/24 08:00 07/06/24 08:34 Aspirin 81 Mg Chewable Tablet PO 81 mg DAILY@0800 BARBARA Administration Atorvastatin Calcium 40 mg 06/29/24 09:00 07/06/24 08:34 Atorvastatin 40 Mg Tablet PO 40 mg DAILY BARBARA Administration Dextrose 12.5 gm 06/29/24 08:08 Dextrose 50% 25 Gm/50 Ml Syringe IV PUSH PRN PRN Hypoglycemia Protocol Enoxaparin Sodium 30 mg 07/06/24 09:00 07/06/24 08:46 Enoxaparin 30 Mg/0.3 Ml Syringe SUB-Q 30 mg DAILY BARBARA Administration Glucagon 1 mg 06/29/24 08:08 Glucagon For Inj 1 Mg Vial IM PRN PRN Hypoglycemia Protocol Glucose 15 gm 06/29/24 08:08 Glucose Oral Gel 15 Gm Of Glucse In 37.5 Gm Tube PO PRN PRN Hypoglycemia Protocol Dextrose 1,000 mls @ 100 mls/hr 06/29/24 08:08 Dextrose 5% 1,000 Ml IVPB PRN PRN Hypoglycemia Protocol Fentanyl Citrate 2,500 mcg in 250 mls @ 0 mls/hr 07/01/24 08:50 07/06/24 10:45 Fentanyl 2,500 Mcg/Ns 250 Ml IV CONT 0 mcg/hr .Q0M BARBARA 0 mls/hr Titration Protocol Midazolam HCl 100 mg in 100 mls @ 0 mls/hr 07/01/24 08:50 07/06/24 10:45 Versed 100 Mg/Ns 100 Ml IV CONT 0 mg/hr .Q0M BARBARA 0 mls/hr Titration Protocol Insulin Aspart 3 - 6 units 06/29/24 12:00 07/06/24 05:23 Insulin Aspart (*Bkc) 100 Units/Ml SUB-Q 3 units Q6HR BARBARA Administration Protocol Insulin Glargine 8 units 07/06/24 09:00 07/06/24 08:47 Insulin Glargine (*Bkc) 100 Units/Ml SUB-Q 8 units DAILY BARBARA Administration Levothyroxine Sodium 50 mcg 06/30/24 06:30 07/06/24 05:05 Levothyroxine Sodium 50 Mcg Tablet FEED TUBE 50 mcg DAILY@0630 BARBARA Administration Methylprednisolone Sodium Succinate 20 mg 07/06/24 09:00 07/06/24 08:35 Methylprednisolone Sod Succ 40 Mg Vial IV PUSH 20 mg DAILY BARBARA Administration Multi-Ingred Cream/Lotion/Oil/Oint 1 applic 06/29/24 09:00 07/06/24 08:36 Mineral Oil/White Petrolatum Ointment EACH EYE 1 applic Q12HR BARBARA Administration Pantoprazole Sodium 40 mg 06/29/24 09:00 07/06/24 08:36 Pantoprazole Sodium Iv 40 Mg Vial IV PUSH 40 mg DAILY BARBARA Administration Sodium Chloride 10 ml 06/29/24 14:00 07/06/24 05:05 Central Line Flush IV PUSH 10 ml Q8HR BARBARA Administration Sodium Chloride 10 ml 06/29/24 12:40 Central Line Flush IV PUSH PRN PRN with TPN bag changes Sodium Chloride 20 ml 06/29/24 12:40 Central Line Flush IV PUSH PRN PRN after blood draws Sodium Zirconium Cyclosilicate 10 gm 07/04/24 08:00 07/06/24 08:36 Sodium Zirconium Cyclosilicate 10 Gm Powd.Pack PO Not Given Q12H BARBARA Radiology Results: ITS Impressions Abdomen X-Ray 06/28/24 20:03 IMPRESSION: Nasogastric tube in good position and ready for immediate use. Abdomen Ultrasound 07/03/24 14:12 IMPRESSION: 1. Normal right upper quadrant ultrasound status post cholecystectomy. Chest X-Ray 07/06/24 07:22 Impression: COPD with bibasilar scarring or atelectasis. Support tubes, as above. Renal Ultrasound 07/06/24 08:30 IMPRESSION: 1. No hydronephrosis in either kidney. Labs Labs: Laboratory Results - last 24 hr 07/05/24 07/05/24 07/05/24 11:42 11:56 16:40 WBC RBC Hgb Hct MCV MCH MCHC RDW Plt Count MPV Immature Gran % (Auto) Neut % (Auto) Lymph % (Auto) [place] % (Auto) Eos % (Auto) Baso % (Auto) Lymph # (Auto) [place] # (Auto) Eos # (Auto) Baso # (Auto) Abs Immat Gran (auto) Absolute Neuts (auto) Absolute Nucleated RBC Nucleated RBC % Puncture Site Right radial ABG pH 7.228 L* ABG pCO2 72.1 H* ABG pO2 74.7 L ABG PO2/FiO2 Ratio 1.87 ABG HCO3 29.4 H ABG O2 Saturation 91.7 L ABG O2 Content 15.4 L ABG Base Excess 0.3 A-a Gradient 127.6 Oxyhemoglobin 91.4 Carboxyhemoglobin 0.9 Methemoglobin 0.3 Reduced Hemoglobin 7.4 H Total Hemoglobin 11.9 L O2 Delivery Device Ventilator O2 Liters/Min Not Reportable Minute Volume Not Reportable Vent Rate 16 Vent Mode Cmv FiO2 40 Tidal Volume 450 PEEP 5 Peak Inspir Pressure Not Reportable Pressure Support Not Reportable Sodium Potassium Chloride Carbon Dioxide Anion Gap BUN Creatinine Estim Creat Clear Calc Estimated GFR Glucose POC Capillary Glucose 243 H Calcium Phosphorus Magnesium Total Bilirubin AST ALT Alkaline Phosphatase Total Creatine Kinase Total Protein Albumin TSH (Reflex) Random Cortisol Urine Eosinophils Rare U Random Total Protein 48 Ur Random Sodium Ur Random Potassium Ur Random Urea Urine Creatinine Protein/Creat Ratio 2 07/05/24 07/05/24 07/06/24 16:40 17:05 00:21 WBC RBC Hgb Hct MCV MCH MCHC RDW Plt Count MPV Immature Gran % (Auto) Neut % (Auto) Lymph % (Auto) [place] % (Auto) Eos % (Auto) Baso % (Auto) Lymph # (Auto) [place] # (Auto) Eos # (Auto) Baso # (Auto) Abs Immat Gran (auto) Absolute Neuts (auto) Absolute Nucleated RBC Nucleated RBC % Puncture Site ABG pH ABG pCO2 ABG pO2 ABG PO2/FiO2 Ratio ABG HCO3 ABG O2 Saturation ABG O2 Content ABG Base Excess A-a Gradient Oxyhemoglobin Carboxyhemoglobin Methemoglobin Reduced Hemoglobin Total Hemoglobin O2 Delivery Device O2 Liters/Min Minute Volume Vent Rate Vent Mode FiO2 Tidal Volume PEEP Peak Inspir Pressure Pressure Support Sodium Potassium Chloride Carbon Dioxide Anion Gap BUN Creatinine Estim Creat Clear Calc Estimated GFR Glucose POC Capillary Glucose 262 H 267 H Calcium Phosphorus Magnesium Total Bilirubin AST ALT Alkaline Phosphatase Total Creatine Kinase Total Protein Albumin TSH (Reflex) Random Cortisol Urine Eosinophils U Random Total Protein 47 Ur Random Sodium 34 Ur Random Potassium 37.5 Ur Random Urea 702 Urine Creatinine 73.1 Protein/Creat Ratio 2 0.66 H 07/06/24 07/06/24 07/06/24 04:31 05:10 06:40 WBC 11.3 H RBC 2.69 L Hgb 7.5 L D Hct 24.4 L MCV 90.7 MCH 27.9 MCHC 30.7 L RDW 18.0 H Plt Count 214 MPV 11.3 H Immature Gran % (Auto) 0.6 H Neut % (Auto) 84.7 H Lymph % (Auto) 3.9 L [place] % (Auto) 10.7 H Eos % (Auto) 0.0 Baso % (Auto) 0.1 L Lymph # (Auto) 0.44 L [place] # (Auto) 1.2 H Eos # (Auto) 0.0 Baso # (Auto) 0.0 Abs Immat Gran (auto) 0.07 H Absolute Neuts (auto) 9.6 H Absolute Nucleated RBC 0.070 H Nucleated RBC % 0.6 H Puncture Site Right radial ABG pH 7.368 ABG pCO2 54.1 H ABG pO2 71.8 L ABG PO2/FiO2 Ratio 1.80 ABG HCO3 30.4 H ABG O2 Saturation 93.7 L ABG O2 Content 10.9 L ABG Base Excess 4.4 A-a Gradient 151.2 Oxyhemoglobin 92.6 Carboxyhemoglobin 1.0 Methemoglobin 0.3 Reduced Hemoglobin 6.1 H Total Hemoglobin 8.3 L O2 Delivery Device Ventilator O2 Liters/Min Not Reportable Minute Volume Not Reportable Vent Rate 20 Vent Mode Cmv FiO2 40 Tidal Volume 480 PEEP 5 Peak Inspir Pressure Not Reportable Pressure Support Not Reportable Sodium 144 Potassium 4.5 Chloride 103 Carbon Dioxide 27 Anion Gap 14 H BUN 113 H D Creatinine 1.79 H Estim Creat Clear Calc 22 Estimated GFR 33 L Glucose 217 H POC Capillary Glucose 247 H Calcium 8.1 L Phosphorus 4.3 Magnesium 2.8 H Total Bilirubin 0.3 AST 33 ALT 33 Alkaline Phosphatase 56 Total Creatine Kinase 813 H Total Protein 6.0 L Albumin 4.1 TSH (Reflex) Random Cortisol Urine Eosinophils U Random Total Protein Ur Random Sodium Ur Random Potassium Ur Random Urea Urine Creatinine Protein/Creat Ratio 2 07/06/24 06:44 WBC RBC Hgb Hct MCV MCH MCHC RDW Plt Count MPV Immature Gran % (Auto) Neut % (Auto) Lymph % (Auto) [place] % (Auto) Eos % (Auto) Baso % (Auto) Lymph # (Auto) [place] # (Auto) Eos # (Auto) Baso # (Auto) Abs Immat Gran (auto) Absolute Neuts (auto) Absolute Nucleated RBC Nucleated RBC % Puncture Site ABG pH ABG pCO2 ABG pO2 ABG PO2/FiO2 Ratio ABG HCO3 ABG O2 Saturation ABG O2 Content ABG Base Excess A-a Gradient Oxyhemoglobin Carboxyhemoglobin Methemoglobin Reduced Hemoglobin Total Hemoglobin O2 Delivery Device O2 Liters/Min Minute Volume Vent Rate Vent Mode FiO2 Tidal Volume PEEP Peak Inspir Pressure Pressure Support Sodium Potassium Chloride Carbon Dioxide Anion Gap BUN Creatinine Estim Creat Clear Calc Estimated GFR Glucose POC Capillary Glucose Calcium Phosphorus Magnesium Total Bilirubin AST ALT Alkaline Phosphatase Total Creatine Kinase Total Protein Albumin TSH (Reflex) 1.180 Random Cortisol 7.21 Urine Eosinophils U Random Total Protein Ur Random Sodium Ur Random Potassium Ur Random Urea Urine Creatinine Protein/Creat Ratio 2 Quality VTE Prophylaxis VTE prophylaxis: pharmacologic ordered
--- NOTE | 2024-07-06 11:01 | PCFNICU ---
ICU Rounding Note: Pt current nutrition is Vital AF 1.2 @ 50 ml/h.. Flush 30 ml q 4 h. Nutrition recommendation: No new nutrition recommendations. Continue current nutrition care plan and orders. Agree with orders Last recorded weight is 71.8 kg. Bowel Motility: +3 BMs 07/05/24 Labs Reviewed: Hgb 7.5, Hct 24.4, GFR 33, BUN 113, Cre 1.79, Glu 217 Meds Noted: Fentanyl, versed, Lovenox, Protonix, novolog Skin: Stage 2 coccyx. Progressed from DTI Additional Notes: Vital AF 1.2 @ goal rate 50 ml/h provides 1329 kcal, 83 g protein, 892 ml free water. Adequate for needs. Tolerating TF. Continue current orders Following daily in ICU rounds. Will monitor weight, labs, skin, diet orders, meds, tube feedings tolerance every Saturday and Saturday .
[2024-07-06 11:21] LABS: Glucose Point of Care 201 mg/dl (65-105)
[2024-07-06 11:39] LABS: Hematocrit 26.2 % (37.0-47.0); Hemoglobin 8.3 g/dL (12.0-15.0); Mean Corpuscular HGB Conc 31.7 g/dl (32-36); Mean Corpuscular Hemoglobin 28.4 pg (26-34); Mean Corpuscular Volume 89.7 fl (80-100); Mean Platelet Volume 11.2 fl (7.4-10.4); Platelet Count Result 242 k/mm3 (150-375); Red Blood Count 2.92 M/mm3 (4.2-5.4); Red Cell Distribution Width 18.1 % (11.5-14.5); White Blood Count 14.7 K/mm3 (4.5-10.0)
[2024-07-06 11:52] LABS: Glucose Point of Care 185 mg/dl (65-105)
[2024-07-06 12:05] LABS: Lymphocytes Absolute Manual 0.58 K/mm3 (1.1-4.5); Monocytes Absolute Manual 0.58 K/mm3 (0.1-0.90); Monocytes Percent Manual 4 % (3-9); Neutrophils Percent Manual 92 % (46-73); Nucleated Red Blood Cells 2 %; Platelet Estimate Adequate (Adequate); Schistocytes Rare; Total Cells Counted 100
[2024-07-06 12:06] LABS: Anisocytosis 1+; Hypochromasia 1+; Ovalocytes 1+
[2024-07-06 12:07] LABS: Giant Platelets Present
[2024-07-06 15:20] LABS: Iron 58 ug/dL (37-170)
[2024-07-06 15:32] LABS: Percent Iron Saturation 35 % (20-50)
[2024-07-06 16:30] LABS: Folic Acid 4.8 ng/mL (2.76->20)
[2024-07-06] MEDS: hydrALAZINE HCL 20 MG/ML VIAL 10 MG IV PUSH (17:03)
[2024-07-06] MEDS: dexmedeTOMIDine 400 MCG/100 ML 400 MCG/100 ML BAG IV CONT (17:04)
[2024-07-06] MEDS: FENTANYL 2,500MCG/NS250ML(*CRX 2,500 MCG/250 ML BAG IV CONT (17:50)
[2024-07-06] MEDS: MIDAZOLAM 100MG/NS 100ML(*CRX) 100 MG/100 ML BAG IV CONT (17:55)
[2024-07-06] MEDS: ADENOSINE IV SOLN 6 MG/2 ML VIAL IV PUSH (18:09)
[2024-07-06] MEDS: ADENOSINE IV SOLN 6 MG/2 ML VIAL 12 MG IV PUSH (18:12)
[2024-07-06] MEDS: METOPROLOL TARTRATE INJ 5 MG/5 ML VIAL (18:13)
[2024-07-06] MEDS: MIDAZOLAM HCL (*CRX) 2 MG/2 ML VIAL IV PUSH (18:14)
--- NOTE | 2024-07-06 18:35 | PM.EVENT ---
Attestation Student Attestation S: Call received from the patient's nurse requesting that I come to evaluate the patient at bedside. Chart briefly reviewed. Patient was admitted with acute on chronic respiratory failure in COPD exacerbation. Sedation was turned off this morning but she failed her breathing trial and sedation was resumed. She is now tachycardic with rates in the 180s to 220s. O: Acutely ill-appearing female sedated on mechanical ventilation. A/P: Narrow complex tachycardia. 6 mg and then 12 mg adenosine given. The patient's heart rate slowed down enough to reveal atrial flutter. She was then given Lopressor 5 mg IV and she converted to a normal sinus rhythm within about [address] T-wave changes in the lateral leads which is new compared to prior tracings. Troponin remains down trending. Blood pressure dropped transiently with the Lopressor, she received 500 mL crystalloid bolus, and she is now normotensive. Critical Care Time Critical Care Time: Yes Total Critical Care Time: 35 Attestation: Due to a high probability of clinically significant, life threatening deterioration, the patient required my highest level of preparedness to intervene emergently and I personally spent this critical care time directly and personally managing the patient. This critical care time included obtaining a history; examining the patient; pulse oximetry; ordering and review of studies; arranging urgent treatment with development of a management plan; evaluation of patient's response to treatment; frequent reassessment; and discussions with other providers. It was exclusive of separately billable procedures and treating other patients and teaching time. Please see Assessment and Plan section and the rest of the note for further information on patient assessment and treatment.
[2024-07-06] MEDS: SODIUM CHLORIDE 0.9% IV 500 ML 999 ML IV CONT (18:40)
[2024-07-06 18:41] LABS: Glucose Point of Care 325 mg/dl (65-105)
--- NOTE | 2024-07-06 18:47 | ECG_ITS ---
Test Date: 2024-07-06 18:48:52 Measurements Intervals [place] Rate: 80 P: 50 IA: 139 QRS: 41 QRSD: 77 T: 160 QT: 359 QTc: 415 Interpretive Statements SINUS RHYTHM ST-T WAVE ABNORMALITY IN DIFFUSE LEADS- CONSIDER ISCHEMIA BASELINE WANDER- I, II, III, AVR, AVL, AVF, V1-V6 ABNORMAL ECG No previous ECG available for comparison Electronically Signed On 07-06-2024 20:23:58 [employer] by Drake Brewster D.O.
[2024-07-06 19:02] LABS: Anion Gap 14 mmol/L (4-12); Blood Urea Nitrogen 108 mg/dL (7-17); Calcium 8.3 mg/dL (8.4-10.2); Carbon Dioxide 28 mmol/L (22-30); Chloride 103 mmol/L (98-107); Estimated CRCL calculation 23 ml/min; Estimated Glomerular Filt Rate 35; Glucose 291 mg/dL (65-110); Magnesium 2.8 mg/dL (1.6-2.3); Phosphorus 4.8 mg/dL (2.5-4.5); Potassium 5.1 mmol/L (3.4-5.0); Sodium 145 mmol/L (137-145)
[2024-07-06 19:52] LABS: Troponin I 0.102 ng/mL (0.000-0.034)
[2024-07-06 20:36] LABS: Glucose Point of Care 199 mg/dl (65-105)
[2024-07-06] MEDS: SODIUM ZIRCONIUM CYCLOSILICATE 10 GM POWD.PACK PO (21:00)
[2024-07-06 21:56] LABS: IFOB Positive Control Positive; Immunochemical Fecal Occult Bl Positive (N)
[2024-07-06 21:58] LABS: Hematocrit 26.5 % (37.0-47.0); Hemoglobin 8.4 g/dL (12.0-15.0)
[2024-07-07] VITALS (46 sets, daily range): BP systolic 89–133; BP diastolic 47–71; PULSE 56–133; RESP 16–22; TEMP 36.4–37.2; O2SAT 95–100
[2024-07-07 00:40] LABS: Glucose Point of Care 133 mg/dl (65-105)
[2024-07-07] MEDS: ALBUMIN HUMAN 25% 25 GM/100 ML 100 ML IVPB ×2 (01:04→06:52)
[2024-07-07] MEDS: IPRATROPIUM 0.5 MG/ALBUTEROL SULFATE 2.5 MG AMPUL.NEB 3 ML INHALATION ×4 (02:10→20:46)
[2024-07-07 04:29] LABS: Hematocrit 25.3 % (37.0-47.0); Mean Corpuscular HGB Conc 31.6 g/dl (32-36); Mean Corpuscular Hemoglobin 28.3 pg (26-34); Mean Corpuscular Volume 89.4 fl (80-100); Mean Platelet Volume 11.2 fl (7.4-10.4); Platelet Count Result 222 k/mm3 (150-375); Red Blood Count 2.83 M/mm3 (4.2-5.4); White Blood Count 13.3 K/mm3 (4.5-10.0)
[2024-07-07 04:34] LABS: Alanine Aminotransferase 47 U/L (6-35); Albumin Level 4.5 g/dL (3.5-5.1); Alkaline Phosphatase 46 U/L (38-126); Anion Gap 15 mmol/L (4-12); Aspartate Amino Transferase 52 U/L (14-36); Bilirubin,Total 0.5 mg/dL (0.2-1.3); Blood Urea Nitrogen 114 mg/dL (7-17); Calcium 8.6 mg/dL (8.4-10.2); Carbon Dioxide 28 mmol/L (22-30); Chloride 106 mmol/L (98-107); Estimated CRCL calculation 25 ml/min; Estimated Glomerular Filt Rate 38; Glucose 121 mg/dL (65-110); Magnesium 2.8 mg/dL (1.6-2.3); Potassium 4.3 mmol/L (3.4-5.0); Sodium 149 mmol/L (137-145)
[2024-07-07 04:58] LABS: Anisocytosis 1+; Band Neutrophils Percent 2 % (0-6); Hypochromasia 2+; Lymphocytes Absolute Manual 1.19 K/mm3 (1.1-4.5); Monocytes Absolute Manual 0.13 K/mm3 (0.1-0.90); Monocytes Percent Manual 1 % (3-9); Neutrophils Absolute Manual 11.97 K/mm3 (1.7-7.2); Neutrophils Percent Manual 88 % (46-73); Platelet Estimate Adequate (Adequate); Total Cells Counted 100
[2024-07-07 04:59] LABS: Ovalocytes 1+; Schistocytes Rare
[2024-07-07 05:03] LABS: Alveolar/Arterial O2 Gradient 162.2 mmHg; Base Excess ABG 4.2 mEq/l (+/-2.0); Fractional Inspired Oxygen 40 %; HCO3 ABG 27.6 mEq/l (22.0-26.0); Oxygen Content ABG 11.6 %vol (16.0-22.0); Oxygen Saturation ABG 96.8 % (95.0-100.0); Oxyhemoglobin 94.9 % THb (90.0-100.0); PCO2 ABG 36.6 mmHg (35.0-45.0); PO2 ABG 80.9 mmHg (80.0-100.0); PO2 FiO2 Ratio Arterial Blood 2.02 %; Total Hemoglobin 8.6 g/dL (12.0-18.0); pH ABG 7.496 (7.350-7.450)
[2024-07-07 05:04] LABS: Arterial Blood Gas PEEP 5 cmH2O; Arterial Blood Gas Tidal Volume 480 ml; Arterial Blood Gas Vent Mode CMV; Arterial Blood Gas Ventilator rate 20 /MIN; Device VENTILATOR; Modified Allen's Test Pass; Site Drawn RIGHT RADIAL
[2024-07-07] MEDS: LEVOTHYROXINE SODIUM 50 MCG TABLET FEED TUBE (06:51)
[2024-07-07] MEDS: CENTRAL LINE FLUSH 10 ML IV PUSH ×3 (06:51→20:54)
[2024-07-07] MEDS: ATORVASTATIN 40 MG TABLET PO (08:11)
[2024-07-07] MEDS: ENOXAPARIN 30 MG/0.3 ML SYRINGE SUB-Q (08:11)
[2024-07-07] MEDS: ASPIRIN 81 MG CHEWABLE TABLET PO (08:11)
[2024-07-07] MEDS: MINERAL OIL/WHITE PETROLATUM OINTMENT 1 APPLIC EACH EYE ×2 (08:12→20:54)
[2024-07-07] MEDS: PANTOPRAZOLE SODIUM IV 40 MG VIAL IV PUSH ×2 (08:12→20:54)
--- NOTE | 2024-07-07 09:35 | P.PNNP_ITS ---
Progress Note: A&P Assessment and Plan (1) RASHEL (acute kidney injury): Code(s): N17.9 - Acute kidney failure, unspecified Status: Acute Assessment and Plan: * slow improvement * as noted by labs (since 07/05) * etiology not clear... * possibly due to relative hypotension - noted systolic BP in the high 80s (on 07/04) * intravascular volume depletion(?) * other(?) * reasonable urine output noted * evaluation to date noted: * normal renal ultrasound * urine electrolytes slightly prerenal * rare urine eosinophils * CPK mildly elevated - follow trend * moderate proteinuria * s/p IV albumin (on 07/06) for volume expansion * trial of IVF today (NS for a total of 1L) * follow trend of repeat labs (2) Hyperkalemia: Code(s): E87.5 - Hyperkalemia Status: Acute Assessment and Plan: * stable at this time * seemed to start ~ 07/02/24 by lab trend * off K+ supplements * no other culprit medications noted * evaluation to date noted: * renal ultrasound without obstruction * renin and aldosterone levels pending * TSH okay * cortisol lowish (was getting steroids); consider stim test after recheck * CPK mildly elevated * continue medical management as needed * #1 complicates evaluation * follow repeat K+ levels (3) Acute on chronic respiratory failure with hypoxia and hypercapnia: Code(s): J96.21 - Acute and chronic respiratory failure with hypoxia; J96.22 - Acute and chronic respiratory failure with hypercapnia Status: Acute Assessment and Plan: * presumably due to COPD exacerbation * complicated by known history of chronic hypoxic/hypercapnic respiratory failure and CHERYL * on ventilator support * on antibiotics, bronchodilators, and steroids * weaning steroids * ventilator weaning as tolerated (4) Acute exacerbation of chronic obstructive pulmonary disease: Code(s): J44.1 - Chronic obstructive pulmonary disease with (acute) exacerbation Status: Acute Assessment and Plan: * presumed etiology of #3 * continue current therapy (5) Elevated troponin: Code(s): R77.8 - Other specified abnormalities of plasma proteins Status: Acute Assessment and Plan: * felt to be demand ischemia from acute respiratory failure * EKG noted * Cardiology recommendations noted * recent Echo noted (on 06/29): * left ventricular systolic function appears preserved * right ventricle is normal in size and systolic function. * small amount of pericardial effusion with no evidence of cardiac tamponade * ischemic evaluation when more stable (6) Elevated LFTs: Code(s): R79.89 - Other specified abnormal findings of blood chemistry Status: Acute Assessment and Plan: * noted on testing since 07/03 * RUQ u/s was normal - status post cholecystectomy * hepatitis panel normal * follow trend Discussed case with Dr. Toney Will continue to follow. L Subjective Date/time seen: 07/07/24 09:35 Interval history: Follow-up for acute kidney injury/acute renal failure and intermittent hyperkalemia. Events noted overnight -- tachycardia which was revealed to be atrial flutter after use of adenosine; returned to NSR with use of IV metoprolol; s/p IV albumin along with 500cc normal saline (for transient drop in BP with use of IV metoprolol); stable/better urine output noted and mild improvement in renal function/creatinine by recent labs (although BUN remains elevated); no apparent distress noted. Exam 2 Narrative: General: elderly but WD/WN female intubated/sedated on mechanical ventilation Heart: normal S1 and S2; no rub Lungs: coarse breath sounds Abdomen: soft, nontender, nondistended, decreased bowel sounds Extremities: no cyanosis or clubbing; no edema Skin: warm and intact Objective Data Vital Signs Vital Signs: Vital Signs Temp Pulse Resp BP Pulse Ox O2 Del Method FiO2 07/07/24 09:21 72 18 07/07/24 09:19 72 18 07/07/24 08:49 71 18 07/07/24 08:37 72 18 07/07/24 08:36 74 18 07/07/24 08:27 72 100 Mechanical Ventilation 40 07/07/24 08:26 76 16 07/07/24 08:00 40 07/07/24 08:00 Mechanical Ventilation 40 07/07/24 08:00 70 07/07/24 08:00 69 22 H 07/07/24 08:00 98.7 F 75 20 123/62 99 07/07/24 08:00 75 20 07/07/24 08:00 72 20 07/07/24 06:00 74 07/07/24 06:00 74 20 07/07/24 06:00 74 20 07/07/24 06:00 98.6 F 74 20 104/55 L 98 07/07/24 05:00 98.5 F 75 20 125/68 98 07/07/24 04:59 74 98 Mechanical Ventilation 40 07/07/24 04:00 98.3 F 73 20 108/51 L 98 07/07/24 04:00 73 07/07/24 04:00 70 20 07/07/24 04:00 70 20 07/07/24 03:26 40 07/07/24 03:16 96 Mechanical Ventilation 40 07/07/24 02:30 98.3 F 75 21 H 122/71 97 07/07/24 02:18 78 20 07/07/24 02:10 76 97 Mechanical Ventilation 40 07/07/24 02:10 76 21 H 07/07/24 02:00 98.3 F 71 20 100/54 L 96 07/07/24 02:00 71 20 07/07/24 02:00 71 20 07/07/24 01:00 97.5 F L 74 20 133/59 L 97 07/07/24 00:30 69 20 98/53 L 97 07/07/24 00:00 70 07/07/24 00:00 70 20 89/48 L 96 07/07/24 00:00 40 07/07/24 00:00 97 Mechanical Ventilation 40 07/07/24 00:00 70 20 07/07/24 00:00 70 20 07/06/24 23:11 96 95 Mechanical Ventilation 40 07/06/24 22:30 74 20 107/52 L 97 07/06/24 22:00 75 20 07/06/24 22:00 75 20 07/06/24 22:00 75 07/06/24 22:00 75 20 97/48 L 95 07/06/24 21:32 81 20 07/06/24 21:23 81 20 07/06/24 20:10 85 96 Mechanical Ventilation 40 07/06/24 20:00 90 07/06/24 20:00 95 Mechanical Ventilation 40 07/06/24 20:00 99.4 F 86 20 126/59 L 95 07/06/24 20:00 40 07/06/24 20:00 86 20 07/06/24 20:00 86 20 07/06/24 18:50 95 20 07/06/24 18:50 95 20 07/06/24 18:20 167 H 20 07/06/24 18:20 167 H 17 07/06/24 18:13 167 H 07/06/24 18:09 167 H 20 07/06/24 18:00 190 H 07/06/24 18:00 97.5 F L 121 H 27 H 119/56 L 95 07/06/24 17:56 180 H 07/06/24 17:55 210 H 25 H 07/06/24 17:50 185 H 23 H 07/06/24 17:04 95 20 07/06/24 16:43 96 97 Mechanical Ventilation 40 07/06/24 16:00 40 07/06/24 16:00 86 07/06/24 16:00 Mechanical Ventilation 07/06/24 16:00 95 20 07/06/24 16:00 95 20 07/06/24 16:00 97.6 F 84 18 182/80 H 98 07/06/24 14:12 74 20 07/06/24 14:00 72 07/06/24 14:00 72 20 07/06/24 14:00 72 20 07/06/24 14:00 97.5 F L 72 20 162/70 H 97 07/06/24 13:53 71 20 07/06/24 13:53 71 97 Mechanical Ventilation 40 07/06/24 12:00 Mechanical Ventilation 07/06/24 12:00 40 07/06/24 12:00 69 07/06/24 12:00 69 20 07/06/24 12:00 69 20 07/06/24 12:00 97.6 F 68 20 137/59 L 99 Intake/Output Intake/Output: Intake & Output 07/04/24 07/05/24 07/06/24 07/07/24 23:59 23:59 23:59 23:59 Intake Total 1955.0 2530.0 2322.3 383.7 Output Total 2483 288 4245 750 Balance 905.0 1930.0 1172.3 -366.3 Meds/Results Medications: Active Medications Generic Name Dose Route Start Last Admin Trade Name Freq PRN Reason Stop Dose Admin Albuterol/Ipratropium 3 ml 06/29/24 02:00 07/07/24 08:25 Ipratropium 0.5 Mg/Albuterol Sulfate 2.5 Mg Ampul.Neb 3 Ml INHALATION 3 ml Q6HRT BARBARA Administration Aspirin 81 mg 07/01/24 08:00 07/07/24 08:11 Aspirin 81 Mg Chewable Tablet PO 81 mg DAILY@0800 BARBARA Administration Atorvastatin Calcium 40 mg 06/29/24 09:00 07/07/24 08:11 Atorvastatin 40 Mg Tablet PO 40 mg DAILY BARBARA Administration Dextrose 12.5 gm 06/29/24 08:08 Dextrose 50% 25 Gm/50 Ml Syringe IV PUSH PRN PRN Hypoglycemia Protocol Enoxaparin Sodium 30 mg 07/06/24 09:00 07/07/24 08:11 Enoxaparin 30 Mg/0.3 Ml Syringe SUB-Q 30 mg DAILY BARBARA Administration Glucagon 1 mg 06/29/24 08:08 Glucagon For Inj 1 Mg Vial IM PRN PRN Hypoglycemia Protocol Glucose 15 gm 06/29/24 08:08 Glucose Oral Gel 15 Gm Of Glucse In 37.5 Gm Tube PO PRN PRN Hypoglycemia Protocol Heparin Sodium (Porcine) 0 units 07/07/24 11:24 Heparin Sodium 5,000 Units/Ml Vial IV PUSH PRN PRN aPTT less than 55 seconds Heparin Sodium (Porcine) 0 units 07/07/24 11:24 Heparin Sodium 5,000 Units/Ml Vial IV PUSH PRN PRN aPTT 55 - 70 seconds Hydralazine HCl 10 mg 07/06/24 16:42 07/06/24 17:03 Hydralazine Hcl 20 Mg/Ml Vial IV PUSH 10 mg Q4H PRN Administration Blood Pressure - High Dextrose 1,000 mls @ 100 mls/hr 06/29/24 08:08 Dextrose 5% 1,000 Ml IVPB PRN PRN Hypoglycemia Protocol Dexmedetomidine HCl 400 mcg in 100 mls @ 3.59 mls/hr 07/06/24 16:45 07/07/24 10:00 Precedex 400 Mcg/100 Ml IV CONT 0.2 mcg/kg/hr .[id number] BARBARA 3.59 mls/hr Titration Protocol 0.2 MCG/KG/HR Fentanyl Citrate 2,500 mcg in 250 mls @ 2.5 mls/hr 07/06/24 17:55 07/07/24 10:53 Fentanyl 2,500 Mcg/Ns 250 Ml IV CONT 25 mcg/hr .Q72H BARBARA 2.5 mls/hr Titration Protocol 25 MCG/HR Midazolam HCl 100 mg in 100 mls @ 1 mls/hr 07/06/24 17:55 07/07/24 10:00 Versed 100 Mg/Ns 100 Ml IV CONT 1 mg/hr .Q72H BARBARA 1 mls/hr Titration Protocol 1 MG/HR Lactated Ringer's 1,000 mls @ 100 mls/hr 07/07/24 10:05 07/07/24 10:54 Lr - Lactated Ringers Iv IV CONT 07/07/24 20:04 100 mls/hr .Q10H BARBARA Administration Heparin Sodium/Dextrose 25,000 units in 250 mls @ 13.23 mls/hr 07/07/24 11:25 Heparin Sodium/D5w 100 Units/Ml IV CONT .[id number] BARBARA Protocol 18 UNITS/KG/HR Insulin Aspart 3 - 6 units 06/29/24 12:00 07/07/24 05:30 Insulin Aspart (*Bkc) 100 Units/Ml SUB-Q Not Given Q6HR BARBARA Protocol Insulin Glargine 8 units 07/06/24 09:00 07/07/24 08:14 Insulin Glargine (*Bkc) 100 Units/Ml SUB-Q Not Given DAILY BARBARA Levothyroxine Sodium 50 mcg 06/30/24 06:30 07/07/24 06:51 Levothyroxine Sodium 50 Mcg Tablet FEED TUBE 50 mcg DAILY@0630 BARBARA Administration Multi-Ingred Cream/Lotion/Oil/Oint 1 applic 06/29/24 09:00 07/07/24 08:12 Mineral Oil/White Petrolatum Ointment EACH EYE 1 applic Q12HR BARBARA Administration Pantoprazole Sodium 40 mg 07/06/24 21:00 07/07/24 08:12 Pantoprazole Sodium Iv 40 Mg Vial IV PUSH 40 mg Q12HR BARBARA Administration Sodium Chloride 10 ml 06/29/24 14:00 07/07/24 06:51 Central Line Flush IV PUSH 10 ml Q8HR BARBARA Administration Sodium Chloride 10 ml 06/29/24 12:40 Central Line Flush IV PUSH PRN PRN with TPN bag changes Sodium Chloride 20 ml 06/29/24 12:40 Central Line Flush IV PUSH PRN PRN after blood draws Sodium Zirconium Cyclosilicate 10 gm 07/04/24 08:00 07/07/24 08:19 Sodium Zirconium Cyclosilicate 10 Gm Powd.Pack PO Not Given Q12H BARBARA Radiology Results: ITS Impressions Abdomen X-Ray 06/28/24 20:03 IMPRESSION: Nasogastric tube in good position and ready for immediate use. Abdomen Ultrasound 07/03/24 14:12 IMPRESSION: 1. Normal right upper quadrant ultrasound status post cholecystectomy. Renal Ultrasound 07/06/24 08:30 IMPRESSION: 1. No hydronephrosis in either kidney. Chest X-Ray 07/07/24 06:38 Impression: Stable COPD with bibasilar scarring. Stable support tubes. Labs Labs: Laboratory Tests 07/07/24 04:11 07/07/24 04:12 Calcium 8.6 Magnesium 2.8 H Total Bilirubin 0.5 AST 52 H ALT 47 H Alkaline Phosphatase 46 Total Protein 6.0 L Albumin 4.5
[2024-07-07] MEDS: LACTATED RINGERS 1,000 ML 100 ML IV CONT (10:54)
--- NOTE | 2024-07-07 11:15 | PCNFU ---
Nutrition Follow-Up Complete: Inadequate Oral Intake as related to mechanical vent as evidenced by NPO. Goal: Meet estimated nutritional needs Patient is progressing towards goal. We will continue current goal. Pt current nutrition is Nepro at 40 ml/hr. Last recorded weight is 73.5 kg, up from 64.3 kg on admit. Bowel Motility: +BM reported 07/05 Labs Reviewed: Mg 2.8, Glu 121, Cr 1.61, BUN 114, GFR 38, Na 149 Meds Noted:Precedex, Versed, Fentanyl, Protonix, NovoLog Skin: deep tissue pressure ulcer-coccyx Additional Notes: Patient remains on mechanical vent. Tube feedings are being tolerated of Vital AF 1.2 due to elevated renal labs and Na level, recommending tube feeding change to Nepro at 40 ml/hr. Tube feedings at goal rate providing 1584 kcal/72 gm protein/640 ml water. Flush from 30 to 100 ml q 4 hours due to elevated Na level. Agree with diet orders. Will monitor weight, labs, skin, diet orders, meds, tube feedings tolerance every Saturday and Saturday
--- NOTE | 2024-07-07 11:20 | P.PNINT_ITS ---
Progress Note: A&P Assessment and Plan (1) Atrial fibrillation with RVR: Code(s): I48.91 - Unspecified atrial fibrillation Status: Acute Assessment and Plan: 07/06 evening: Patient went into SVT, status post tenderness and 6 mg and 12 mg, underlying rhythm was AFib RVR, converted to normal sinus rhythm with IV metoprolol x1 and increasing her sedation. Patient remained in sinus rhythm also the morning of 07/07/2024. 07/07: Started weaning her sedation again today, patient went to AFib RVR, -will start heparin infusion, metoprolol per tube and increase her sedation. -07/06; TSH level within normal limits, troponin level with no change since admission -EKG showed AFib RVR, discussed with cardiology, recommended amiodarone bolus and infusion (2) Acute on chronic respiratory failure with hypoxia and hypercapnia: Code(s): J96.21 - Acute and chronic respiratory failure with hypoxia; J96.22 - Acute and chronic respiratory failure with hypercapnia Status: Acute Assessment and Plan: Acute on chronic respiratory failure secondary to severe COPD exacerbation. Community-acquired pneumonia although chest x-ray is not suggestive and patient is low procalcitonin level. WBC elevated MRSA screen negative 06/28: Blood cultures negative x2 -status post says 8 days of ceftriaxone -status post 5 days of doxycycline -DC vancomycin (06/29), MRSA screen negative 07/02: Patient did have high peak pressures, after switching her from propofol to fentanyl and Versed due to elevated triglycerides. She was started on Nimbex infusion which improved her oxygenation, respiratory status and improved air entry. 07/03: Remains on Nimbex, adequate air entry, peak pressures are within normal limits continue fentanyl Versed infusion for now, will start weaning Nimbex, will maintain RASS of 0 to -2 on sedation meds 07/04: Chest x-ray, ABGs reviewed, ventilator adjusted, increased respiratory rate 22 and increased FiO2 to 45%, maintain O2 sats greater than 90%. Have also asked the bedside RN to start weaning the Nimbex to off -07/05: Patient has prolonged expiratory phase, decrease respiratory rate, increased I to E ratio, increased tidal volume. Will repeat ABGs -Continue bronchodilators, -off Solu-Medrol -07/05 and 07/06: off all sedation, will try to place patient on SBT when she is more awake. If she requires any kind of sedation will start Precedex infusion. Patient did not tolerate being off on sedation and went into SVT and AFib RVR. Once sedation was placed back on patient converted to sinus rhythm with regular rate. 07/07: Sedation was weaned again this morning, patient was started on Precedex infusion site could place her on a a breathing trial to evaluate for extubation. Patient again went into AFib RVR, sedation was reinstated (3) Acute exacerbation of chronic obstructive pulmonary disease: Code(s): J44.1 - Chronic obstructive pulmonary disease with (acute) exacerbation Status: Acute Assessment and Plan: Continue mechanical ventilation, bronchodilators, antibiotics, steroids (4) Elevated troponin: Code(s): R77.8 - Other specified abnormalities of plasma proteins Status: Acute Assessment and Plan: Patient has elevated troponin likely secondary to demand ischemia from acute respiratory failure. EKG reviewed and does not show any ST elevation. Patient does not have any documented history of coronary disease. Troponins trending down Continue aspirin 81 mg p.o. daily and statin Appreciate cardiology evaluation and recommendation Hold beta-mika due to sinus bradycardia while on sedation 06/29/2024: Echocardiogram Summary 1. The left ventricle is normal in size with thickened left ventricular rodríguez. The overall left ventricular systolic function appears preserved. Cannot rule out very mild hypokinesis of the apical wall. 2. The right ventricle is normal in size and systolic function. 3. The there is a small amount of pericardial effusion with no echocardiographic evidence of cardiac tamponade. (5) Hypothyroidism: Code(s): E03.9 - Hypothyroidism, unspecified Status: Acute Assessment and Plan: Continue levothyroxine. -07/06: TSH level - within normal limits (6) Electrolyte abnormality: Code(s): E87.8 - Other disorders of electrolyte and fluid balance, not elsewhere classified Status: Acute Assessment and Plan: Potassium levels within normal limits -appreciate Nephrology evaluation and recommendations (7) Elevated LFTs: Code(s): R79.89 - Other specified abnormal findings of blood chemistry Status: Acute Assessment and Plan: Right upper quadrant ultrasound was normal, status post cholecystectomy -hepatitis panel was within normal limit (8) RASHEL (acute kidney injury): Code(s): N17.9 - Acute kidney failure, unspecified Status: Acute Assessment and Plan: Acute kidney injury, likely related to hypotension, intravascular volume depletion, BUN elevated likely related to steroids -nephrology has been consulted and appreciate the evaluation and recommendation -discuss with Nephrology, will start albumin 25% x4 doses since she may be intravascularly depleted -monitor urine output, renal function electrolytes 07/06: Renal ultrasound: No hydronephrosis in either kidney. -urine lytes not reflective of prerenal picture -CKD levels elevated to 813 07/07: Patient may more urine overnight, creatinine trending down. Discuss with Nephrology, will give 1 L IV fluids over 10 hours (9) Hyperglycemia: Code(s): R73.9 - Hyperglycemia, unspecified Status: Acute Assessment and Plan: Hyperglycemia likely related to tube feeds and or steroid -weaning steroid -continue Accu-Cheks and sliding scale insulin, -hold Lantus has tube feeds were off overnight. (10) Anemia: Code(s): D64.9 - Anemia, unspecified Status: Acute Assessment and Plan: Patient dropped her hemoglobin to 8.3 from 10.9 (07/05) -07/06/2024: Stool occult was positive -iron panel did not show any iron deficiency, normal folate level -low vitamin B12 level, will give IM cyanocobalamin weekly x2 doses -continue Protonix to IV q.12 hours -will consult GI Plan DVT prophylaxis -Lovenox Stress ulcer prophylaxis -PPI IV q.12 hours Nutrition -tolerating tube feeds Code Status - Full Code Total Critical Care Time - 35 minutes -discussed with Nephrology and Cardiology Discussed with patient's and updated with patient's condition and plan of care. I answered all his questions Due to a high probability of clinically significant, life threatening deterioration, the patient required my highest level of preparedness to intervene emergently and I personally spent this critical care time directly and personally managing the patient. This critical care time included obtaining a history; examining the patient; pulse oximetry; ordering and review of studies; arranging urgent treatment with development of a management plan; evaluation of patient's response to treatment; frequent reassessment; and discussions with other providers. It was exclusive of separately billable procedures and treating other patients and teaching time. Please see Assessment and Plan section and the rest of the note for further information on patient assessment and treatment This dictation may have been done utilizing a voice recognition system. Attempts have been made to correct errors. However, there may be uncorrected grammatical, spelling, and recognitions errors present. Subjective Date/time seen: 07/07/24 11:20 Interval history: Reason for consult: COPD exacerbation, acute hypercapnic respiratory failure, NSTEMI with elevated troponin 07/07/2024: Patient seen and examined the ICU, last evening when to SVT with heart rates in the 180s to 230s. Status post adenosine, underlying rhythm was atrial fibrillation RVR, converted to sinus with metoprolol and increasing her sedation. Patient also received 500 cc IV fluid bolus yesterday during the episode. Remain in AFib rate control all through the night and this morning. Which started coming down on the sedation again today and patient went to AFib RVR. Have asked the bedside RN to start heparin infusion -Urine output which improved this morning, creatinine trending down but BUN remains elevated. Potassium levels on normal -patient is afebrile, hemodynamically stable -sedated with fentanyl and Versed infusion, opens her eyes but does not follow simple commands Review of Systems Review of Systems: ROS unobtainable: Yes unobtainable due to endotracheal tube, unobtainable due to medical condition and unobtainable due to mental status Exam Narrative: General: Pt is sedated and intubated and on mechanical ventilation Lungs/Chest: Trachea central, better air entry this morning, no wheezing or rales. Cardiac: Irregularly irregular, tachycardic. No murmurs Circulation: Pedal pulses are intact and symmetrical. Abdomen: Decreased bowel sounds. Obese. Soft. NT. ND. Extremities: No clubbing, cyanosis or edema. Warm : [place] in place Neurologic: Intubated, sedated opens her eyes but does not follow simple commands, pupils equal and reactive. Objective Data Vital Signs Vital Signs: Vital Signs - 24 hr 07/06/24 12:00 07/06/24 12:00 07/06/24 12:00 Temperature 97.6 F Pulse Rate 68 69 69 Respiratory Rate 20 20 20 Blood Pressure 137/59 L Pulse Oximetry 99 Oxygen Delivery Fraction of Inspired Oxygen 07/06/24 12:00 07/06/24 12:00 07/06/24 12:00 Temperature Pulse Rate 69 Respiratory Rate Blood Pressure Pulse Oximetry Oxygen Delivery Mechanical Ventilation Fraction of Inspired Oxygen 40 07/06/24 13:53 07/06/24 13:53 07/06/24 14:00 Temperature 97.5 F L Pulse Rate 71 71 72 Respiratory Rate 20 20 Blood Pressure 162/70 H Pulse Oximetry 97 97 Oxygen Delivery Mechanical Ventilation Fraction of Inspired Oxygen 40 07/06/24 14:00 07/06/24 14:00 07/06/24 14:00 Temperature Pulse Rate 72 72 72 Respiratory Rate 20 20 Blood Pressure Pulse Oximetry Oxygen Delivery Fraction of Inspired Oxygen 07/06/24 14:12 07/06/24 16:00 07/06/24 16:00 Temperature 97.6 F Pulse Rate 74 84 95 Respiratory Rate 20 18 20 Blood Pressure 182/80 H Pulse Oximetry 98 Oxygen Delivery Fraction of Inspired Oxygen 07/06/24 16:00 07/06/24 16:00 07/06/24 16:00 Temperature Pulse Rate 95 86 Respiratory Rate 20 Blood Pressure Pulse Oximetry Oxygen Delivery Mechanical Ventilation Fraction of Inspired Oxygen 07/06/24 16:00 07/06/24 16:43 07/06/24 17:04 Temperature Pulse Rate 96 95 Respiratory Rate 20 Blood Pressure Pulse Oximetry 97 Oxygen Delivery Mechanical Ventilation Fraction of Inspired Oxygen 40 40 07/06/24 17:50 07/06/24 17:55 07/06/24 17:56 Temperature Pulse Rate 185 H 210 H 180 H Respiratory Rate 23 H 25 H Blood Pressure Pulse Oximetry Oxygen Delivery Fraction of Inspired Oxygen 07/06/24 18:00 07/06/24 18:00 07/06/24 18:09 Temperature 97.5 F L Pulse Rate 121 H 190 H 167 H Respiratory Rate 27 H 20 Blood Pressure 119/56 L Pulse Oximetry 95 Oxygen Delivery Fraction of Inspired Oxygen 07/06/24 18:13 07/06/24 18:20 07/06/24 18:20 Temperature Pulse Rate 167 H 167 H 167 H Respiratory Rate 17 20 Blood Pressure Pulse Oximetry Oxygen Delivery Fraction of Inspired Oxygen 07/06/24 18:50 07/06/24 18:50 07/06/24 20:00 Temperature Pulse Rate 95 95 86 Respiratory Rate 20 20 20 Blood Pressure Pulse Oximetry Oxygen Delivery Fraction of Inspired Oxygen 07/06/24 20:00 07/06/24 20:00 07/06/24 20:00 Temperature 99.4 F Pulse Rate 86 86 Respiratory Rate 20 20 Blood Pressure 126/59 L Pulse Oximetry 95 Oxygen Delivery Fraction of Inspired Oxygen 40 07/06/24 20:00 07/06/24 20:00 07/06/24 20:10 Temperature Pulse Rate 90 85 Respiratory Rate Blood Pressure Pulse Oximetry 95 96 Oxygen Delivery Mechanical Ventilation Mechanical Ventilation Fraction of Inspired Oxygen 40 40 07/06/24 21:23 07/06/24 21:32 07/06/24 22:00 Temperature Pulse Rate 81 81 75 Respiratory Rate 20 20 20 Blood Pressure 97/48 L Pulse Oximetry 95 Oxygen Delivery Fraction of Inspired Oxygen 07/06/24 22:00 07/06/24 22:00 07/06/24 22:00 Temperature Pulse Rate 75 75 75 Respiratory Rate 20 20 Blood Pressure Pulse Oximetry Oxygen Delivery Fraction of Inspired Oxygen 07/06/24 22:30 07/06/24 23:11 07/07/24 00:00 Temperature Pulse Rate 74 96 70 Respiratory Rate 20 20 Blood Pressure 107/52 L Pulse Oximetry 97 95 Oxygen Delivery Mechanical Ventilation Fraction of Inspired Oxygen 40 07/07/24 00:00 07/07/24 00:00 07/07/24 00:00 Temperature Pulse Rate 70 Respiratory Rate 20 Blood Pressure Pulse Oximetry 97 Oxygen Delivery Mechanical Ventilation Fraction of Inspired Oxygen 40 40 07/07/24 00:00 07/07/24 00:00 07/07/24 00:30 Temperature Pulse Rate 70 70 69 Respiratory Rate 20 20 Blood Pressure 89/48 L 98/53 L Pulse Oximetry 96 97 Oxygen Delivery Fraction of Inspired Oxygen 07/07/24 01:00 07/07/24 02:00 07/07/24 02:00 Temperature 97.5 F L Pulse Rate 74 71 71 Respiratory Rate 20 20 20 Blood Pressure 133/59 L Pulse Oximetry 97 Oxygen Delivery Fraction of Inspired Oxygen 07/07/24 02:00 07/07/24 02:10 07/07/24 02:10 Temperature 98.3 F Pulse Rate 71 76 76 Respiratory Rate 20 21 H Blood Pressure 100/54 L Pulse Oximetry 96 97 Oxygen Delivery Mechanical Ventilation Fraction of Inspired Oxygen 40 07/07/24 02:18 07/07/24 02:30 07/07/24 03:16 Temperature 98.3 F Pulse Rate 78 75 Respiratory Rate 20 21 H Blood Pressure 122/71 Pulse Oximetry 97 96 Oxygen Delivery Mechanical Ventilation Fraction of Inspired Oxygen 40 07/07/24 03:26 07/07/24 04:00 07/07/24 04:00 Temperature Pulse Rate 70 70 Respiratory Rate 20 20 Blood Pressure Pulse Oximetry Oxygen Delivery Fraction of Inspired Oxygen 40 07/07/24 04:00 07/07/24 04:00 07/07/24 04:59 Temperature 98.3 F Pulse Rate 73 73 74 Respiratory Rate 20 Blood Pressure 108/51 L Pulse Oximetry 98 98 Oxygen Delivery Mechanical Ventilation Fraction of Inspired Oxygen 40 07/07/24 05:00 07/07/24 06:00 07/07/24 06:00 Temperature 98.5 F 98.6 F Pulse Rate 75 74 74 Respiratory Rate 20 20 20 Blood Pressure 125/68 104/55 L Pulse Oximetry 98 98 Oxygen Delivery Fraction of Inspired Oxygen 07/07/24 06:00 07/07/24 06:00 07/07/24 08:00 Temperature Pulse Rate 74 74 72 Respiratory Rate 20 20 Blood Pressure Pulse Oximetry Oxygen Delivery Fraction of Inspired Oxygen 07/07/24 08:00 07/07/24 08:00 07/07/24 08:00 Temperature 98.7 F Pulse Rate 75 75 69 Respiratory Rate 20 20 22 H Blood Pressure 123/62 Pulse Oximetry 99 Oxygen Delivery Fraction of Inspired Oxygen 07/07/24 08:00 07/07/24 08:00 07/07/24 08:00 Temperature Pulse Rate 70 Respiratory Rate Blood Pressure Pulse Oximetry Oxygen Delivery Mechanical Ventilation Fraction of Inspired Oxygen 40 40 07/07/24 08:26 07/07/24 08:27 07/07/24 08:36 Temperature Pulse Rate 76 72 74 Respiratory Rate 16 18 Blood Pressure Pulse Oximetry 100 Oxygen Delivery Mechanical Ventilation Fraction of Inspired Oxygen 40 07/07/24 08:37 07/07/24 08:49 07/07/24 09:19 Temperature Pulse Rate 72 71 72 Respiratory Rate 18 18 18 Blood Pressure Pulse Oximetry Oxygen Delivery Fraction of Inspired Oxygen 07/07/24 09:21 07/07/24 10:00 07/07/24 10:00 Temperature Pulse Rate 72 69 69 Respiratory Rate 18 18 18 Blood Pressure Pulse Oximetry Oxygen Delivery Fraction of Inspired Oxygen 07/07/24 10:00 07/07/24 10:00 07/07/24 10:53 Temperature 98.9 F Pulse Rate 72 71 74 Respiratory Rate 18 18 18 Blood Pressure 95/51 L Pulse Oximetry 98 Oxygen Delivery Fraction of Inspired Oxygen Intake/Output Intake/Output: Intake & Output 07/04/24 07/05/24 07/06/24 07/07/24 23:59 23:59 23:59 23:59 Intake Total 1955.0 2530.0 2322.3 383.7 Output Total 1849 399 8012 750 Balance 905.0 1930.0 1172.3 -366.3 Meds/Results Medications: Active Medications Generic Name Dose Route Start Last Admin Trade Name Freq PRN Reason Stop Dose Admin Albuterol/Ipratropium 3 ml 06/29/24 02:00 07/07/24 08:25 Ipratropium 0.5 Mg/Albuterol Sulfate 2.5 Mg Ampul.Neb 3 Ml INHALATION 3 ml Q6HRT BARBARA Administration Aspirin 81 mg 07/01/24 08:00 07/07/24 08:11 Aspirin 81 Mg Chewable Tablet PO 81 mg DAILY@0800 BARBARA Administration Atorvastatin Calcium 40 mg 06/29/24 09:00 07/07/24 08:11 Atorvastatin 40 Mg Tablet PO 40 mg DAILY BARBARA Administration Dextrose 12.5 gm 06/29/24 08:08 Dextrose 50% 25 Gm/50 Ml Syringe IV PUSH PRN PRN Hypoglycemia Protocol Enoxaparin Sodium 30 mg 07/06/24 09:00 07/07/24 08:11 Enoxaparin 30 Mg/0.3 Ml Syringe SUB-Q 30 mg DAILY BARBARA Administration Glucagon 1 mg 06/29/24 08:08 Glucagon For Inj 1 Mg Vial IM PRN PRN Hypoglycemia Protocol Glucose 15 gm 06/29/24 08:08 Glucose Oral Gel 15 Gm Of Glucse In 37.5 Gm Tube PO PRN PRN Hypoglycemia Protocol Hydralazine HCl 10 mg 07/06/24 16:42 07/06/24 17:03 Hydralazine Hcl 20 Mg/Ml Vial IV PUSH 10 mg Q4H PRN Administration Blood Pressure - High Dextrose 1,000 mls @ 100 mls/hr 06/29/24 08:08 Dextrose 5% 1,000 Ml IVPB PRN PRN Hypoglycemia Protocol Dexmedetomidine HCl 400 mcg in 100 mls @ 3.59 mls/hr 07/06/24 16:45 07/07/24 10:00 Precedex 400 Mcg/100 Ml IV CONT 0.2 mcg/kg/hr .[id number] BARBARA 3.59 mls/hr Titration Protocol 0.2 MCG/KG/HR Fentanyl Citrate 2,500 mcg in 250 mls @ 2.5 mls/hr 07/06/24 17:55 07/07/24 10:53 Fentanyl 2,500 Mcg/Ns 250 Ml IV CONT 25 mcg/hr .Q72H BARBARA 2.5 mls/hr Titration Protocol 25 MCG/HR Midazolam HCl 100 mg in 100 mls @ 1 mls/hr 07/06/24 17:55 07/07/24 10:00 Versed 100 Mg/Ns 100 Ml IV CONT 1 mg/hr .Q72H BARBARA 1 mls/hr Titration Protocol 1 MG/HR Lactated Ringer's 1,000 mls @ 100 mls/hr 07/07/24 10:05 07/07/24 10:54 Lr - Lactated Ringers Iv IV CONT 07/07/24 20:04 100 mls/hr .Q10H BARBARA Administration Insulin Aspart 3 - 6 units 06/29/24 12:00 07/07/24 05:30 Insulin Aspart (*Bkc) 100 Units/Ml SUB-Q Not Given Q6HR BARBARA Protocol Insulin Glargine 8 units 07/06/24 09:00 07/07/24 08:14 Insulin Glargine (*Bkc) 100 Units/Ml SUB-Q Not Given DAILY BARBARA Levothyroxine Sodium 50 mcg 06/30/24 06:30 07/07/24 06:51 Levothyroxine Sodium 50 Mcg Tablet FEED TUBE 50 mcg DAILY@0630 BARBARA Administration Multi-Ingred Cream/Lotion/Oil/Oint 1 applic 06/29/24 09:00 07/07/24 08:12 Mineral Oil/White Petrolatum Ointment EACH EYE 1 applic Q12HR BARBARA Administration Pantoprazole Sodium 40 mg 07/06/24 21:00 07/07/24 08:12 Pantoprazole Sodium Iv 40 Mg Vial IV PUSH 40 mg Q12HR BARBARA Administration Sodium Chloride 10 ml 06/29/24 14:00 07/07/24 06:51 Central Line Flush IV PUSH 10 ml Q8HR BARBARA Administration Sodium Chloride 10 ml 06/29/24 12:40 Central Line Flush IV PUSH PRN PRN with TPN bag changes Sodium Chloride 20 ml 06/29/24 12:40 Central Line Flush IV PUSH PRN PRN after blood draws Sodium Zirconium Cyclosilicate 10 gm 07/04/24 08:00 07/07/24 08:19 Sodium Zirconium Cyclosilicate 10 Gm Powd.Pack PO Not Given Q12H [facility] Radiology Results: ITS Impressions Abdomen X-Ray 06/28/24 20:03 IMPRESSION: Nasogastric tube in good position and ready for immediate use. Abdomen Ultrasound 07/03/24 14:12 IMPRESSION: 1. Normal right upper quadrant ultrasound status post cholecystectomy. Renal Ultrasound 07/06/24 08:30 IMPRESSION: 1. No hydronephrosis in either kidney. Chest X-Ray 07/07/24 06:38 Impression: Stable COPD with bibasilar scarring. Stable support tubes. Labs Labs: Laboratory Results - last 24 hr 07/06/24 07/06/24 07/06/24 06:40 11:19 11:30 WBC 14.7 H RBC 2.92 L Hgb 8.3 L Hct 26.2 L MCV 89.7 MCH 28.4 MCHC 31.7 L RDW 18.1 H Plt Count 242 MPV 11.2 H Immature Gran % (Auto) Not Reportable Neut % (Auto) Not Reportable Lymph % (Auto) Not Reportable [place] % (Auto) Not Reportable Eos % (Auto) Not Reportable Baso % (Auto) Not Reportable Lymph # (Auto) Not Reportable [place] # (Auto) Not Reportable Eos # (Auto) Not Reportable Baso # (Auto) Not Reportable Abs Immat Gran (auto) Not Reportable Absolute Neuts (auto) Not Reportable Absolute Nucleated RBC Not Reportable Total Counted 100 Neutrophils % (Manual) 92 H Band Neutrophils % Lymphocytes % (Manual) 4.0 L Monocytes % (Manual) 4 Nucleated RBC % Not Reportable Abs Neuts (Manual) Abs Lymphs (Manual) 0.58 L Abs Monocytes (Manual) 0.58 Nucleated RBCs 2 Platelet Estimate Adequate Giant Platelets Present Hypochromasia 1+ Anisocytosis 1+ Ovalocytes 1+ Schistocytes Rare Puncture Site ABG pH ABG pCO2 ABG pO2 ABG PO2/FiO2 Ratio ABG HCO3 ABG O2 Saturation ABG O2 Content ABG Base Excess A-a Gradient Oxyhemoglobin Total Hemoglobin O2 Delivery Device O2 Liters/Min Minute Volume Vent Rate Vent Mode FiO2 Tidal Volume PEEP Peak Inspir Pressure Pressure Support Sodium Potassium Chloride Carbon Dioxide Anion Gap BUN Creatinine Estim Creat Clear Calc Estimated GFR Glucose POC Capillary Glucose 201 H Calcium Phosphorus Magnesium Iron 58 TIBC 164 L % Saturation 35 Total Bilirubin AST ALT Alkaline Phosphatase Troponin I Total Protein Albumin Vitamin B12 175.0 L Folate 4.8 Stl Occult Blood (IFOB) Blood Type Antibody Screen 07/06/24 07/06/24 07/06/24 11:45 18:34 18:38 WBC RBC Hgb Hct MCV MCH MCHC RDW Plt Count MPV Immature Gran % (Auto) Neut % (Auto) Lymph % (Auto) [place] % (Auto) Eos % (Auto) Baso % (Auto) Lymph # (Auto) [place] # (Auto) Eos # (Auto) Baso # (Auto) Abs Immat Gran (auto) Absolute Neuts (auto) Absolute Nucleated RBC Total Counted Neutrophils % (Manual) Band Neutrophils % Lymphocytes % (Manual) Monocytes % (Manual) Nucleated RBC % Abs Neuts (Manual) Abs Lymphs (Manual) Abs Monocytes (Manual) Nucleated RBCs Platelet Estimate Giant Platelets Hypochromasia Anisocytosis Ovalocytes Schistocytes Puncture Site ABG pH ABG pCO2 ABG pO2 ABG PO2/FiO2 Ratio ABG HCO3 ABG O2 Saturation ABG O2 Content ABG Base Excess A-a Gradient Oxyhemoglobin Total Hemoglobin O2 Delivery Device O2 Liters/Min Minute Volume Vent Rate Vent Mode FiO2 Tidal Volume PEEP Peak Inspir Pressure Pressure Support Sodium 145 Potassium 5.1 H Chloride 103 Carbon Dioxide 28 Anion Gap 14 H BUN 108 H Creatinine 1.70 H Estim Creat Clear Calc 23 Estimated GFR 35 L Glucose 291 H POC Capillary Glucose 185 H 325 H Calcium 8.3 L Phosphorus 4.8 H Magnesium 2.8 H Iron TIBC % Saturation Total Bilirubin AST ALT Alkaline Phosphatase Troponin I 0.102 H* Total Protein Albumin Vitamin B12 Folate Stl Occult Blood (IFOB) Blood Type Antibody Screen 07/06/24 07/06/24 07/06/24 20:34 21:20 21:54 WBC RBC Hgb 8.4 L Hct 26.5 L MCV MCH MCHC RDW Plt Count MPV Immature Gran % (Auto) Neut % (Auto) Lymph % (Auto) [place] % (Auto) Eos % (Auto) Baso % (Auto) Lymph # (Auto) [place] # (Auto) Eos # (Auto) Baso # (Auto) Abs Immat Gran (auto) Absolute Neuts (auto) Absolute Nucleated RBC Total Counted Neutrophils % (Manual) Band Neutrophils % Lymphocytes % (Manual) Monocytes % (Manual) Nucleated RBC % Abs Neuts (Manual) Abs Lymphs (Manual) Abs Monocytes (Manual) Nucleated RBCs Platelet Estimate Giant Platelets Hypochromasia Anisocytosis Ovalocytes Schistocytes Puncture Site ABG pH ABG pCO2 ABG pO2 ABG PO2/FiO2 Ratio ABG HCO3 ABG O2 Saturation ABG O2 Content ABG Base Excess A-a Gradient Oxyhemoglobin Total Hemoglobin O2 Delivery Device O2 Liters/Min Minute Volume Vent Rate Vent Mode FiO2 Tidal Volume PEEP Peak Inspir Pressure Pressure Support Sodium Potassium Chloride Carbon Dioxide Anion Gap BUN Creatinine Estim Creat Clear Calc Estimated GFR Glucose POC Capillary Glucose 199 H Calcium Phosphorus Magnesium Iron TIBC % Saturation Total Bilirubin AST ALT Alkaline Phosphatase Troponin I Total Protein Albumin Vitamin B12 Folate Stl Occult Blood (IFOB) Positive H Blood Type O Positive Antibody Screen Negative 07/07/24 07/07/24 07/07/24 00:14 04:11 04:12 WBC 13.3 H RBC 2.83 L Hgb 8.0 L Hct 25.3 L MCV 89.4 MCH 28.3 MCHC 31.6 L RDW 18.0 H Plt Count 222 MPV 11.2 H Immature Gran % (Auto) Not Reportable Neut % (Auto) Not Reportable Lymph % (Auto) Not Reportable [place] % (Auto) Not Reportable Eos % (Auto) Not Reportable Baso % (Auto) Not Reportable Lymph # (Auto) Not Reportable [place] # (Auto) Not Reportable Eos # (Auto) Not Reportable Baso # (Auto) Not Reportable Abs Immat Gran (auto) Not Reportable Absolute Neuts (auto) Not Reportable Absolute Nucleated RBC Not Reportable Total Counted 100 Neutrophils % (Manual) 88 H Band Neutrophils % 2 Lymphocytes % (Manual) 9.0 L Monocytes % (Manual) 1 L Nucleated RBC % Not Reportable Abs Neuts (Manual) 11.97 H Abs Lymphs (Manual) 1.19 Abs Monocytes (Manual) 0.13 Nucleated RBCs Platelet Estimate Adequate Giant Platelets Hypochromasia 2+ Anisocytosis 1+ Ovalocytes 1+ Schistocytes Rare Puncture Site ABG pH ABG pCO2 ABG pO2 ABG PO2/FiO2 Ratio ABG HCO3 ABG O2 Saturation ABG O2 Content ABG Base Excess A-a Gradient Oxyhemoglobin Total Hemoglobin O2 Delivery Device O2 Liters/Min Minute Volume Vent Rate Vent Mode FiO2 Tidal Volume PEEP Peak Inspir Pressure Pressure Support Sodium 149 H Potassium 4.3 Chloride 106 Carbon Dioxide 28 Anion Gap 15 H BUN 114 H Creatinine 1.61 H Estim Creat Clear Calc 25 Estimated GFR 38 L Glucose 121 H POC Capillary Glucose 133 H Calcium 8.6 Phosphorus Magnesium 2.8 H Iron TIBC % Saturation Total Bilirubin 0.5 AST 52 H ALT 47 H Alkaline Phosphatase 46 Troponin I Total Protein 6.0 L Albumin 4.5 Vitamin B12 Folate Stl Occult Blood (IFOB) Blood Type Antibody Screen 07/07/24 04:58 WBC RBC Hgb Hct MCV MCH MCHC RDW Plt Count MPV Immature Gran % (Auto) Neut % (Auto) Lymph % (Auto) [place] % (Auto) Eos % (Auto) Baso % (Auto) Lymph # (Auto) [place] # (Auto) Eos # (Auto) Baso # (Auto) Abs Immat Gran (auto) Absolute Neuts (auto) Absolute Nucleated RBC Total Counted Neutrophils % (Manual) Band Neutrophils % Lymphocytes % (Manual) Monocytes % (Manual) Nucleated RBC % Abs Neuts (Manual) Abs Lymphs (Manual) Abs Monocytes (Manual) Nucleated RBCs Platelet Estimate Giant Platelets Hypochromasia Anisocytosis Ovalocytes Schistocytes Puncture Site Right radial ABG pH 7.496 H ABG pCO2 36.6 ABG pO2 80.9 ABG PO2/FiO2 Ratio 2.02 ABG HCO3 27.6 H ABG O2 Saturation 96.8 ABG O2 Content 11.6 L ABG Base Excess 4.2 A-a Gradient 162.2 Oxyhemoglobin 94.9 Total Hemoglobin 8.6 L O2 Delivery Device Ventilator O2 Liters/Min Not Reportable Minute Volume Not Reportable Vent Rate 20 Vent Mode Cmv FiO2 40 Tidal Volume 480 PEEP 5 Peak Inspir Pressure Not Reportable Pressure Support Not Reportable Sodium Potassium Chloride Carbon Dioxide Anion Gap BUN Creatinine Estim Creat Clear Calc Estimated GFR Glucose POC Capillary Glucose Calcium Phosphorus Magnesium Iron TIBC % Saturation Total Bilirubin AST ALT Alkaline Phosphatase Troponin I Total Protein Albumin Vitamin B12 Folate Stl Occult Blood (IFOB) Blood Type Antibody Screen Quality VTE Prophylaxis VTE prophylaxis: pharmacologic ordered
[2024-07-07 11:36] LABS: Glucose Point of Care 136 mg/dl (65-105)
--- NOTE | 2024-07-07 11:41 | ECG_ITS ---
Test Date: 2024-07-07 11:47:45 Measurements Intervals [place] Rate: 127 P: 0 IN: 0 QRS: 41 QRSD: 86 T: 160 QT: 283 QTc: 413 Interpretive Statements ATRIAL FIBRILLATION WITH RAPID VENTRICULAR RESPONSE ST-T WAVE ABNORMALITY IN DIFFUSE LEADS- CONSIDER ISCHEMIA ABNORMAL ECG Compared to ECG 07/06/2024 18:48:52 Sinus rhythm no longer present Electronically Signed On 07-07-2024 11:54:58 [employer] SUPERVISOR by Drake Brewster D.O.
[2024-07-07 11:43] LABS: Basophils Percent Auto 0.2 % (0.2-1.2); Eosinophils Percent Auto 0.3 % (0-4.4); Hematocrit 24.5 % (37.0-47.0); Hemoglobin 7.9 g/dL (12.0-15.0); Immature Granulocyte Absolute 0.08 K/mm3 (0.00-0.031); Immature Granulocyte Percent A 0.6 % (0-0.5); Lymphocytes Absolute Auto 1.33 K/mm3 (0.9-3.2); Lymphocytes Percent Auto 10.2 % (18.3-44.2); Mean Corpuscular HGB Conc 32.2 g/dl (32-36); Mean Corpuscular Hemoglobin 28.5 pg (26-34); Mean Corpuscular Volume 88.4 fl (80-100); Mean Platelet Volume 11.2 fl (7.4-10.4); Monocytes Absolute Auto 1.6 K/mm3 (0.1-0.6); Monocytes Percent Auto 11.9 % (2.6-8.5); Neutrophils Percent Auto 76.8 % (45.5-73.1); Nucleated Red Blood Cells Perc 0.4 % (0.0-0.2); Platelet Count Result 217 k/mm3 (150-375); Red Blood Count 2.77 M/mm3 (4.2-5.4)
[2024-07-07] MEDS: AMIODARONE 150 MG/D5W 100 ML 150 MG/100 ML BAG 600 MG IV CONT (11:58)
[2024-07-07] MEDS: HEPARIN SOD/D5W 100 UNITS/ML 25,000 UNITS/250 ML BAG 11 UNITS IV CONT (12:03)
[2024-07-07] MEDS: AMIODARONE 360 MG/D5W 200 ML 360 MG/200 ML BAG 33.33 MG IV CONT (12:09)
[2024-07-07 12:13] LABS: INR 1.2; Prothrombin Time 15.9 Seconds (11.1-14.7)
[2024-07-07 12:14] LABS: Partial Thromboplastin Time 27.7 Seconds (22.3-36.8)
--- NOTE | 2024-07-07 12:27 | P.PNCA_ITS ---
Progress Note: A&P Assessment and Plan (1) Elevated troponin: Code(s): R77.8 - Other specified abnormalities of plasma proteins Status: Acute Plan 1. NSTEMI. Troponins peaked at 1.07. 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 Echo cardiogram with preserved LVEF, cannot rule out very mild hypokinesis of the apical wall. 2. Coronary artery disease s/p MATTY x 2 to the RCA in 2019 for an acute coronary syndrome 3. Acute on chronic hypoxic and hypercarbic respiratory failure due to COPD exacerbation, requiring mechanical ventilation 4. COPD exacerbation, known severe COPD 5. Atrial fibrillation with RVR, new diagnosis PLAN: -Continue ASA, statin. -Given AFIB with RVR, agree with Metoprolol. However, due to blood pressures on the lower side, recommend starting Amiodarone drip. Continue Heparin drip for anticoagulation, will eventually need to be transitioned to NOAC. -Will re-evaluate need for ischemic evaluation once extubated and recovered from her respiratory failure. Probably a stress test as outpatient. Has not followed up with our office since 2019 (was seeing Dr. Morales). Recommendations and plan discussed with ICU Physician. Subjective Date/time seen: 07/07/24 12:27 Interval history: Reason for visit: Elevated troponins HPI: 78-year-old woman with chronic hypoxic respiratory failure on home O2 4 L at night and hyperlipidemia presented with acute respiratory distress. She is currently intubated and history obtained through chart review. It appeared that she had worsening shortness of breath for 15 minutes prior to EMS arrival which mildly improved with CPAP in 10 mg of Decadron with 2 g of magnesium. However she quickly further decompensated requiring intubation with ABG demonstrating hypoxic hypercarbic acidosis. As part of her workup troponins were drawn which were elevated. Date of service 06/30: Remains intubated. Date of service 07/07: On 07/06, patient went into narrow complex tachycardia. Was given Adenosine 6mg followed by 12mg. Rhythm showed atrial flutter. Was given IV Metoprolol. Transiently went back into sinus, but now in AFIB with RVR this morning. Remains intubated. Review of Systems Review of Systems: ROS unobtainable: Yes unobtainable due to endotracheal tube Exam Const: Other: On mechanical ventilation HENMT: Other: OETT in place Resp: Other: On mechanical ventilation Cardio: Rate: tachycardic Rhythm: abnormal rhythm irregularly irregular Heart sounds: no murmurs Skin: General skin exam: normal color Neuro: Other: Sedated Psych: Other: Sedated Objective Data Vital Signs Vital Signs: Vital Signs - 24 hr 07/06/24 13:53 07/06/24 13:53 07/06/24 14:00 Temperature 36.4 C L Pulse Rate 71 71 72 Respiratory Rate 20 20 Blood Pressure 162/70 H Pulse Oximetry 97 97 Oxygen Delivery Mechanical Ventilation Fraction of Inspired Oxygen 40 07/06/24 14:00 07/06/24 14:00 07/06/24 14:00 Temperature Pulse Rate 72 72 72 Respiratory Rate 20 20 Blood Pressure Pulse Oximetry Oxygen Delivery Fraction of Inspired Oxygen 07/06/24 14:12 07/06/24 16:00 07/06/24 16:00 Temperature 36.4 C Pulse Rate 74 84 95 Respiratory Rate 20 18 20 Blood Pressure 182/80 H Pulse Oximetry 98 Oxygen Delivery Fraction of Inspired Oxygen 07/06/24 16:00 07/06/24 16:00 07/06/24 16:00 Temperature Pulse Rate 95 86 Respiratory Rate 20 Blood Pressure Pulse Oximetry Oxygen Delivery Mechanical Ventilation Fraction of Inspired Oxygen 07/06/24 16:00 07/06/24 16:43 07/06/24 17:04 Temperature Pulse Rate 96 95 Respiratory Rate 20 Blood Pressure Pulse Oximetry 97 Oxygen Delivery Mechanical Ventilation Fraction of Inspired Oxygen 40 40 07/06/24 17:50 07/06/24 17:55 07/06/24 17:56 Temperature Pulse Rate 185 H 210 H 180 H Respiratory Rate 23 H 25 H Blood Pressure Pulse Oximetry Oxygen Delivery Fraction of Inspired Oxygen 07/06/24 18:00 07/06/24 18:00 07/06/24 18:09 Temperature 36.4 C L Pulse Rate 121 H 190 H 167 H Respiratory Rate 27 H 20 Blood Pressure 119/56 L Pulse Oximetry 95 Oxygen Delivery Fraction of Inspired Oxygen 07/06/24 18:13 07/06/24 18:20 07/06/24 18:20 Temperature Pulse Rate 167 H 167 H 167 H Respiratory Rate 17 20 Blood Pressure Pulse Oximetry Oxygen Delivery Fraction of Inspired Oxygen 07/06/24 18:50 07/06/24 18:50 07/06/24 20:00 Temperature Pulse Rate 95 95 86 Respiratory Rate 20 20 20 Blood Pressure Pulse Oximetry Oxygen Delivery Fraction of Inspired Oxygen 07/06/24 20:00 07/06/24 20:00 07/06/24 20:00 Temperature 37.4 C Pulse Rate 86 86 Respiratory Rate 20 20 Blood Pressure 126/59 L Pulse Oximetry 95 Oxygen Delivery Fraction of Inspired Oxygen 40 07/06/24 20:00 07/06/24 20:00 07/06/24 20:10 Temperature Pulse Rate 90 85 Respiratory Rate Blood Pressure Pulse Oximetry 95 96 Oxygen Delivery Mechanical Ventilation Mechanical Ventilation Fraction of Inspired Oxygen 40 40 07/06/24 21:23 07/06/24 21:32 07/06/24 22:00 Temperature Pulse Rate 81 81 75 Respiratory Rate 20 20 20 Blood Pressure 97/48 L Pulse Oximetry 95 Oxygen Delivery Fraction of Inspired Oxygen 07/06/24 22:00 07/06/24 22:00 07/06/24 22:00 Temperature Pulse Rate 75 75 75 Respiratory Rate 20 20 Blood Pressure Pulse Oximetry Oxygen Delivery Fraction of Inspired Oxygen 07/06/24 22:30 07/06/24 23:11 07/07/24 00:00 Temperature Pulse Rate 74 96 70 Respiratory Rate 20 20 Blood Pressure 107/52 L Pulse Oximetry 97 95 Oxygen Delivery Mechanical Ventilation Fraction of Inspired Oxygen 40 07/07/24 00:00 07/07/24 00:00 07/07/24 00:00 Temperature Pulse Rate 70 Respiratory Rate 20 Blood Pressure Pulse Oximetry 97 Oxygen Delivery Mechanical Ventilation Fraction of Inspired Oxygen 40 40 07/07/24 00:00 07/07/24 00:00 07/07/24 00:30 Temperature Pulse Rate 70 70 69 Respiratory Rate 20 20 Blood Pressure 89/48 L 98/53 L Pulse Oximetry 96 97 Oxygen Delivery Fraction of Inspired Oxygen 07/07/24 01:00 07/07/24 02:00 07/07/24 02:00 Temperature 36.4 C L Pulse Rate 74 71 71 Respiratory Rate 20 20 20 Blood Pressure 133/59 L Pulse Oximetry 97 Oxygen Delivery Fraction of Inspired Oxygen 07/07/24 02:00 07/07/24 02:10 07/07/24 02:10 Temperature 36.8 C Pulse Rate 71 76 76 Respiratory Rate 20 21 H Blood Pressure 100/54 L Pulse Oximetry 96 97 Oxygen Delivery Mechanical Ventilation Fraction of Inspired Oxygen 40 07/07/24 02:18 07/07/24 02:30 07/07/24 03:16 Temperature 36.8 C Pulse Rate 78 75 Respiratory Rate 20 21 H Blood Pressure 122/71 Pulse Oximetry 97 96 Oxygen Delivery Mechanical Ventilation Fraction of Inspired Oxygen 40 07/07/24 03:26 07/07/24 04:00 07/07/24 04:00 Temperature Pulse Rate 70 70 Respiratory Rate 20 20 Blood Pressure Pulse Oximetry Oxygen Delivery Fraction of Inspired Oxygen 40 07/07/24 04:00 07/07/24 04:00 07/07/24 04:59 Temperature 36.8 C Pulse Rate 73 73 74 Respiratory Rate 20 Blood Pressure 108/51 L Pulse Oximetry 98 98 Oxygen Delivery Mechanical Ventilation Fraction of Inspired Oxygen 40 07/07/24 05:00 07/07/24 06:00 07/07/24 06:00 Temperature 36.9 C 37.0 C Pulse Rate 75 74 74 Respiratory Rate 20 20 20 Blood Pressure 125/68 104/55 L Pulse Oximetry 98 98 Oxygen Delivery Fraction of Inspired Oxygen 07/07/24 06:00 07/07/24 06:00 07/07/24 08:00 Temperature Pulse Rate 74 74 72 Respiratory Rate 20 20 Blood Pressure Pulse Oximetry Oxygen Delivery Fraction of Inspired Oxygen 07/07/24 08:00 07/07/24 08:00 07/07/24 08:00 Temperature 37.1 C Pulse Rate 75 75 69 Respiratory Rate 20 20 22 H Blood Pressure 123/62 Pulse Oximetry 99 Oxygen Delivery Fraction of Inspired Oxygen 07/07/24 08:00 07/07/24 08:00 07/07/24 08:00 Temperature Pulse Rate 70 Respiratory Rate Blood Pressure Pulse Oximetry Oxygen Delivery Mechanical Ventilation Fraction of Inspired Oxygen 40 40 07/07/24 08:26 07/07/24 08:27 07/07/24 08:36 Temperature Pulse Rate 76 72 74 Respiratory Rate 16 18 Blood Pressure Pulse Oximetry 100 Oxygen Delivery Mechanical Ventilation Fraction of Inspired Oxygen 40 07/07/24 08:37 07/07/24 08:49 07/07/24 09:19 Temperature Pulse Rate 72 71 72 Respiratory Rate 18 18 18 Blood Pressure Pulse Oximetry Oxygen Delivery Fraction of Inspired Oxygen 07/07/24 09:21 07/07/24 10:00 07/07/24 10:00 Temperature Pulse Rate 72 69 69 Respiratory Rate 18 18 18 Blood Pressure Pulse Oximetry Oxygen Delivery Fraction of Inspired Oxygen 07/07/24 10:00 07/07/24 10:00 07/07/24 10:00 Temperature 37.2 C Pulse Rate 72 71 71 Respiratory Rate 18 18 Blood Pressure 95/51 L Pulse Oximetry 98 Oxygen Delivery Fraction of Inspired Oxygen 07/07/24 10:53 07/07/24 11:12 07/07/24 11:25 Temperature Pulse Rate 74 78 117 H Respiratory Rate 18 18 Blood Pressure Pulse Oximetry 100 Oxygen Delivery Mechanical Ventilation Fraction of Inspired Oxygen 40 07/07/24 11:25 07/07/24 11:58 07/07/24 12:00 Temperature 36.7 C Pulse Rate 117 H 133 H 130 H Respiratory Rate 18 18 Blood Pressure 112/59 L 98/55 L Pulse Oximetry 96 Oxygen Delivery Fraction of Inspired Oxygen 07/07/24 12:06 07/07/24 12:06 07/07/24 12:08 Temperature Pulse Rate 109 H 130 H 117 H Respiratory Rate 18 18 18 Blood Pressure Pulse Oximetry Oxygen Delivery Fraction of Inspired Oxygen 07/07/24 12:09 Temperature Pulse Rate 109 H Respiratory Rate Blood Pressure 98/55 L Pulse Oximetry Oxygen Delivery Fraction of Inspired Oxygen Intake/Output Intake/Output: Intake & Output 07/04/24 07/05/24 07/06/24 07/07/24 23:59 23:59 23:59 23:59 Intake Total 1955.0 2530.0 2322.3 398.7 Output Total 0676 742 2412 750 Balance 905.0 1930.0 1172.3 -351.3 Meds/Results Medications: Active Medications Generic Name Dose Route Start Last Admin Trade Name Freq PRN Reason Stop Dose Admin Albuterol/Ipratropium 3 ml 06/29/24 02:00 07/07/24 08:25 Ipratropium 0.5 Mg/Albuterol Sulfate 2.5 Mg Ampul.Neb 3 Ml INHALATION 3 ml Q6HRT [facility] Administration Aspirin 81 mg 07/01/24 08:00 07/07/24 08:11 Aspirin 81 Mg Chewable Tablet PO 81 mg DAILY@0800 [facility] Administration Atorvastatin Calcium 40 mg 06/29/24 09:00 07/07/24 08:11 Atorvastatin 40 Mg Tablet PO 40 mg DAILY [facility]BARA Administration Cyanocobalamin 1,000 mcg 07/07/24 12:00 Cyanocobalamin Inj 1,000 Mcg/Ml Vial IM 07/14/24 09:01 WEEKLY BARBARA Dextrose 12.5 gm 06/29/24 08:08 Dextrose 50% 25 Gm/50 Ml Syringe IV PUSH PRN PRN Hypoglycemia Protocol Enoxaparin Sodium 30 mg 07/06/24 09:00 07/07/24 08:11 Enoxaparin 30 Mg/0.3 Ml Syringe SUB-Q 30 mg DAILY [facility]BAR[facility] Administration Glucagon 1 mg 06/29/24 08:08 Glucagon For Inj 1 Mg Vial IM PRN PRN Hypoglycemia Protocol Glucose 15 gm 06/29/24 08:08 Glucose Oral Gel 15 Gm Of Glucse In 37.5 Gm Tube PO PRN PRN Hypoglycemia Protocol Heparin Sodium (Porcine) 5,000 units 07/07/24 11:24 Heparin Sodium 5,000 Units/Ml Vial IV PUSH PRN PRN aPTT less than 55 seconds Heparin Sodium (Porcine) 2,500 units 07/07/24 11:24 Heparin Sodium 5,000 Units/Ml Vial IV PUSH PRN PRN aPTT 55 - 70 seconds Hydralazine HCl 10 mg 07/06/24 16:42 07/06/24 17:03 Hydralazine Hcl 20 Mg/Ml Vial IV PUSH 10 mg Q4H PRN Administration Blood Pressure - High Dextrose 1,000 mls @ 100 mls/hr 06/29/24 08:08 Dextrose 5% 1,000 Ml IVPB PRN PRN Hypoglycemia Protocol Dexmedetomidine HCl 400 mcg in 100 mls @ 3.59 mls/hr 07/06/24 16:45 07/07/24 12:06 Precedex 400 Mcg/100 Ml IV CONT 0 mcg/kg/hr .[id number] [facility] 0 mls/hr Titration Protocol 0.2 MCG/KG/HR Fentanyl Citrate 2,500 mcg in 250 mls @ 7.5 mls/hr 07/06/24 17:55 07/07/24 12:06 Fentanyl 2,500 Mcg/Ns 250 Ml IV CONT 75 mcg/hr .[id number] [facility] 7.5 mls/hr Titration Protocol 75 MCG/HR Midazolam HCl 100 mg in 100 mls @ 3 mls/hr 07/06/24 17:55 07/07/24 12:08 Versed 100 Mg/Ns 100 Ml IV CONT 3 mg/hr .[id number] [facility]BAR[facility] 3 mls/hr Titration Protocol 3 MG/HR Lactated Ringer's 1,000 mls @ 100 mls/hr 07/07/24 10:05 07/07/24 10:54 Lr - Lactated Ringers Iv IV CONT 07/07/24 20:04 100 mls/hr .Q10H [facility] Administration Heparin Sodium/Dextrose 25,000 units in 250 mls @ 11 mls/hr 07/07/24 11:25 07/07/24 12:03 Heparin Sodium/D5w 100 Units/Ml IV CONT 1,100 units/hr .[id number] [facility] 11 mls/hr Administration Protocol 1,100 UNITS/HR Amiodarone HCl/Dextrose 360 mg in 200 mls @ 33.333 mls/hr 07/07/24 12:00 07/07/24 12:09 Nexterone 360 Mg/D5w 200 Ml IV CONT 07/07/24 17:59 1 mg/min .Q6H ONE 33.33 mls/hr Administration Protocol 1 MG/MIN Amiodarone HCl/Dextrose 360 mg in 200 mls @ 16.667 mls/hr 07/07/24 18:00 Nexterone 360 Mg/D5w 200 Ml IV CONT 07/08/24 17:59 .Q12H [facility] Protocol 0.5 MG/MIN Insulin Aspart 3 - 6 units 06/29/24 12:00 07/07/24 11:59 Insulin Aspart (*Bkc) 100 Units/Ml SUB-Q Not Given Q6HR [facility] Protocol Insulin Glargine 8 units 07/06/24 09:00 07/07/24 08:14 Insulin Glargine (*Bkc) 100 Units/Ml SUB-Q Not Given DAILY [facility] Levothyroxine Sodium 50 mcg 06/30/24 06:30 07/07/24 06:51 Levothyroxine Sodium 50 Mcg Tablet FEED TUBE 50 mcg DAILY@0630 [facility] Administration Metoprolol Tartrate 25 mg 07/07/24 21:00 Metoprolol Tartrate 25 Mg Tablet PO Q12HR [facility] Multi-Ingred Cream/Lotion/Oil/Oint 1 applic 06/29/24 09:00 07/07/24 08:12 Mineral Oil/White Petrolatum Ointment EACH EYE 1 applic Q12HR [facility] Administration Pantoprazole Sodium 40 mg 07/06/24 21:00 07/07/24 08:12 Pantoprazole Sodium Iv 40 Mg Vial IV PUSH 40 mg Q12HR [facility] Administration Sodium Chloride 10 ml 06/29/24 14:00 07/07/24 06:51 Central Line Flush IV PUSH 10 ml Q8HR [facility] Administration Sodium Chloride 10 ml 06/29/24 12:40 Central Line Flush IV PUSH PRN PRN with TPN bag changes Sodium Chloride 20 ml 06/29/24 12:40 Central Line Flush IV PUSH PRN PRN after blood draws Radiology Results: ITS Impressions Abdomen X-Ray 06/28/24 20:03 IMPRESSION: Nasogastric tube in good position and ready for immediate use. Abdomen Ultrasound 07/03/24 14:12 IMPRESSION: 1. Normal right upper quadrant ultrasound status post cholecystectomy. Renal Ultrasound 07/06/24 08:30 IMPRESSION: 1. No hydronephrosis in either kidney. Chest X-Ray 07/07/24 06:38 Impression: Stable COPD with bibasilar scarring. Stable support tubes. Labs Labs: Laboratory Results - last 24 hr 07/06/24 07/06/24 07/06/24 06:40 18:34 18:38 WBC RBC Hgb Hct MCV MCH MCHC RDW Plt Count MPV Immature Gran % (Auto) Neut % (Auto) Lymph % (Auto) [place] % (Auto) Eos % (Auto) Baso % (Auto) Lymph # (Auto) [place] # (Auto) Eos # (Auto) Baso # (Auto) Abs Immat Gran (auto) Absolute Neuts (auto) Absolute Nucleated RBC Total Counted Neutrophils % (Manual) Band Neutrophils % Lymphocytes % (Manual) Monocytes % (Manual) Nucleated RBC % Abs Neuts (Manual) Abs Lymphs (Manual) Abs Monocytes (Manual) Platelet Estimate Hypochromasia Anisocytosis Ovalocytes Schistocytes PT INR APTT Puncture Site ABG pH ABG pCO2 ABG pO2 ABG PO2/FiO2 Ratio ABG HCO3 ABG O2 Saturation ABG O2 Content ABG Base Excess A-a Gradient Oxyhemoglobin Total Hemoglobin O2 Delivery Device O2 Liters/Min Minute Volume Vent Rate Vent Mode FiO2 Tidal Volume PEEP Peak Inspir Pressure Pressure Support Sodium 145 Potassium 5.1 H Chloride 103 Carbon Dioxide 28 Anion Gap 14 H BUN 108 H Creatinine 1.70 H Estim Creat Clear Calc 23 Estimated GFR 35 L Glucose 291 H POC Capillary Glucose 325 H Calcium 8.3 L Phosphorus 4.8 H Magnesium 2.8 H Iron 58 TIBC 164 L % Saturation 35 Total Bilirubin AST ALT Alkaline Phosphatase Troponin I 0.102 H* Total Protein Albumin Vitamin B12 175.0 L Folate 4.8 Stl Occult Blood (IFOB) Blood Type Antibody Screen 07/06/24 07/06/24 07/06/24 20:34 21:20 21:54 WBC RBC Hgb 8.4 L Hct 26.5 L MCV MCH MCHC RDW Plt Count MPV Immature Gran % (Auto) Neut % (Auto) Lymph % (Auto) [place] % (Auto) Eos % (Auto) Baso % (Auto) Lymph # (Auto) [place] # (Auto) Eos # (Auto) Baso # (Auto) Abs Immat Gran (auto) Absolute Neuts (auto) Absolute Nucleated RBC Total Counted Neutrophils % (Manual) Band Neutrophils % Lymphocytes % (Manual) Monocytes % (Manual) Nucleated RBC % Abs Neuts (Manual) Abs Lymphs (Manual) Abs Monocytes (Manual) Platelet Estimate Hypochromasia Anisocytosis Ovalocytes Schistocytes PT INR APTT Puncture Site ABG pH ABG pCO2 ABG pO2 ABG PO2/FiO2 Ratio ABG HCO3 ABG O2 Saturation ABG O2 Content ABG Base Excess A-a Gradient Oxyhemoglobin Total Hemoglobin O2 Delivery Device O2 Liters/Min Minute Volume Vent Rate Vent Mode FiO2 Tidal Volume PEEP Peak Inspir Pressure Pressure Support Sodium Potassium Chloride Carbon Dioxide Anion Gap BUN Creatinine Estim Creat Clear Calc Estimated GFR Glucose POC Capillary Glucose 199 H Calcium Phosphorus Magnesium Iron TIBC % Saturation Total Bilirubin AST ALT Alkaline Phosphatase Troponin I Total Protein Albumin Vitamin B12 Folate Stl Occult Blood (IFOB) Positive H Blood Type O Positive Antibody Screen Negative 07/07/24 07/07/24 07/07/24 00:14 04:11 04:12 WBC 13.3 H RBC 2.83 L Hgb 8.0 L Hct 25.3 L MCV 89.4 MCH 28.3 MCHC 31.6 L RDW 18.0 H Plt Count 222 MPV 11.2 H Immature Gran % (Auto) Not Reportable Neut % (Auto) Not Reportable Lymph % (Auto) Not Reportable [place] % (Auto) Not Reportable Eos % (Auto) Not Reportable Baso % (Auto) Not Reportable Lymph # (Auto) Not Reportable [place] # (Auto) Not Reportable Eos # (Auto) Not Reportable Baso # (Auto) Not Reportable Abs Immat Gran (auto) Not Reportable Absolute Neuts (auto) Not Reportable Absolute Nucleated RBC Not Reportable Total Counted 100 Neutrophils % (Manual) 88 H Band Neutrophils % 2 Lymphocytes % (Manual) 9.0 L Monocytes % (Manual) 1 L Nucleated RBC % Not Reportable Abs Neuts (Manual) 11.97 H Abs Lymphs (Manual) 1.19 Abs Monocytes (Manual) 0.13 Platelet Estimate Adequate Hypochromasia 2+ Anisocytosis 1+ Ovalocytes 1+ Schistocytes Rare PT INR APTT Puncture Site ABG pH ABG pCO2 ABG pO2 ABG PO2/FiO2 Ratio ABG HCO3 ABG O2 Saturation ABG O2 Content ABG Base Excess A-a Gradient Oxyhemoglobin Total Hemoglobin O2 Delivery Device O2 Liters/Min Minute Volume Vent Rate Vent Mode FiO2 Tidal Volume PEEP Peak Inspir Pressure Pressure Support Sodium 149 H Potassium 4.3 Chloride 106 Carbon Dioxide 28 Anion Gap 15 H BUN 114 H Creatinine 1.61 H Estim Creat Clear Calc 25 Estimated GFR 38 L Glucose 121 H POC Capillary Glucose 133 H Calcium 8.6 Phosphorus Magnesium 2.8 H Iron TIBC % Saturation Total Bilirubin 0.5 AST 52 H ALT 47 H Alkaline Phosphatase 46 Troponin I Total Protein 6.0 L Albumin 4.5 Vitamin B12 Folate Stl Occult Blood (IFOB) Blood Type Antibody Screen 07/07/24 07/07/24 07/07/24 04:58 11:28 11:35 WBC 13.0 H RBC 2.77 L Hgb 7.9 L Hct 24.5 L MCV 88.4 MCH 28.5 MCHC 32.2 RDW 18.0 H Plt Count 217 MPV 11.2 H Immature Gran % (Auto) 0.6 H Neut % (Auto) 76.8 H Lymph % (Auto) 10.2 L [place] % (Auto) 11.9 H Eos % (Auto) 0.3 Baso % (Auto) 0.2 Lymph # (Auto) 1.33 [place] # (Auto) 1.6 H Eos # (Auto) 0.0 Baso # (Auto) 0.0 Abs Immat Gran (auto) 0.08 H Absolute Neuts (auto) 10.0 H Absolute Nucleated RBC 0.050 H Total Counted Neutrophils % (Manual) Band Neutrophils % Lymphocytes % (Manual) Monocytes % (Manual) Nucleated RBC % 0.4 H Abs Neuts (Manual) Abs Lymphs (Manual) Abs Monocytes (Manual) Platelet Estimate Hypochromasia Anisocytosis Ovalocytes Schistocytes PT 15.9 H INR 1.2 APTT 27.7 Puncture Site Right radial ABG pH 7.496 H ABG pCO2 36.6 ABG pO2 80.9 ABG PO2/FiO2 Ratio 2.02 ABG HCO3 27.6 H ABG O2 Saturation 96.8 ABG O2 Content 11.6 L ABG Base Excess 4.2 A-a Gradient 162.2 Oxyhemoglobin 94.9 Total Hemoglobin 8.6 L O2 Delivery Device Ventilator O2 Liters/Min Not Reportable Minute Volume Not Reportable Vent Rate 20 Vent Mode Cmv FiO2 40 Tidal Volume 480 PEEP 5 Peak Inspir Pressure Not Reportable Pressure Support Not Reportable Sodium Potassium Chloride Carbon Dioxide Anion Gap BUN Creatinine Estim Creat Clear Calc Estimated GFR Glucose POC Capillary Glucose 136 H Calcium Phosphorus Magnesium Iron TIBC % Saturation Total Bilirubin AST ALT Alkaline Phosphatase Troponin I Total Protein Albumin Vitamin B12 Folate Stl Occult Blood (IFOB) Blood Type Antibody Screen
[2024-07-07] MEDS: CYANOCOBALAMIN INJ 1,000 MCG/ML VIAL 1000 MCG IM (13:35)
[2024-07-07] MEDS: METOPROLOL TARTRATE 25 MG TABLET PO ×2 (15:12→21:46)
--- NOTE | 2024-07-07 15:35 | ECG_ITS ---
Test Date: 2024-07-07 15:42:27 Measurements Intervals [place] Rate: 55 P: -4 VA: 134 QRS: 64 QRSD: 76 T: 135 QT: 411 QTc: 393 Interpretive Statements SINUS BR[address] DEVIATION AND MODERATE T-WAVE ABNORMALITY IN ANTEROLAT/INF LEADS, CONSIDER ISCHEMIA BASELINE ARTIFACT- I, II, III, AVL, AVF, V1 ABNORMAL ECG Compared to ECG 07/07/2024 11:47:45 Atrial fibrillation no longer present Electronically Signed On 07-07-2024 20:08:26 [employer] by Drake Brewster D.O.
--- NOTE | 2024-07-07 16:28 | P.CONGI_ITS ---
Assessment and Plan Assessment and plan (1) Acute on chronic anemia: Code(s): D64.9 - Anemia, unspecified Status: Acute Assessment and Plan: probably multifactorial from acute illness, rashel, nstemi, icu stay, etc had egd 2020 when PEG was placed when she again was admitted in icu with respiratory failure and inability to eat- removed since protonix to treat possible gastritis no need to repeat egd unless overt gib (2) Occult blood in stools: Code(s): R19.5 - Other fecal abnormalities Status: Acute (3) RASHEL (acute kidney injury): Code(s): N17.9 - Acute kidney failure, unspecified Status: Acute Assessment and Plan: this probably affecting anemia (4) Acute exacerbation of chronic obstructive pulmonary disease: Code(s): J44.1 - Chronic obstructive pulmonary disease with (acute) exacerbation Status: Acute Assessment and Plan: still intubated she required trach previously (5) Non-ST elevation OK (NSTEMI): Code(s): I21.4 - Non-ST elevation (NSTEMI) myocardial infarction Status: Acute Assessment and Plan: treated medically by cardiology (6) Respiratory failure with hypoxia and hypercapnia: Code(s): J96.91 - Respiratory failure, unspecified with hypoxia; J96.92 - Respiratory failure, unspecified with hypercapnia Status: Acute GI Consult Note Consult date/time: 07/07/24 16:28 Reason for consult: acute on chronic anemia, + FOBT HPI: Laxmi Colon is a 78 year old female with history of COPD with chronic hypoxic hypercapnic respiratory failure on home O2 of 4 L at night, obstructive sleep apnea on CPAP at night, diastolic dysfunction, and hypothyroidism who presented to the ER via EMS due to respiratory distress 06/28/24. She was admitted to icu, intubated because copd exacerbation, also had NSTEMI treated medically by cardiology, RASHEL with creatinine 1.6 with research clerk on board. She is still intubated, noted hgb slowly drift down to 8 from 11 but no overt gib, only occult blood in stool. She is tolerating tube feeding but OGT. She had EGD 11/2020 after prolonged intubation because respiratory distress and I placed G- tube then was removed 02/2021 when she had a good recovery and was able to eat again. Review of Systems 2 Review of Systems: ROS unobtainable: Yes unobtainable due to endotracheal tube and unobtainable due to medical condition [facility] Past Medical History Medical History (Updated 07/07/24 @ 16:36 by Neptali Crowe MD) Occult blood in stools Acute on chronic anemia Diastolic dysfunction Grade 1 Diastolic dysfunction noted on echocardiogram from 2020 repeat echo in 2022 demonstrated EF of 70% with indeterminate diastolic function with mild pulmonary hypertension with RVSP of 38 Chronic respiratory failure with hypoxia and hypercapnia On home O2 of 3 L and nighttime PAP therapy Renal mass Lung nodule Hypothyroidism COPD (chronic obstructive pulmonary disease) CHERYL on CPAP History of tobacco use History of heart attack Elevated lipids Hypertension H/O vaginal delivery Thyroid disease Lung nodule Renal mass Essential hypertension Former smoker Quit 2018 with 54 pack per year history Hypothyroidism Coronary artery disease Hyperlipidemia Diastolic dysfunction With echocardiogram 2022 demonstrated EF is 70% mild pulmonary hypertension with RVSP of 38, prior echocardiogram 2020 demonstrated grade 1 diastolic dysfunction Obstructive sleep apnea on CPAP With 4 L of bleed in oxygen Chronic respiratory failure with hypoxia and hypercapnia Home O2 of 4 L Surgical History Surgical History Status post extracapsular cataract extraction of left eye History of total abdominal hysterectomy and bilateral salpingo-oophorectomy History of tubal ligation History of cholecystectomy History of tubal ligation History of total abdominal hysterectomy and bilateral salpingo-oophorectomy Hx of cholecystectomy Family History Family History Mother Hypertension Sibling Family history of malignant neoplasm of kidney Family history of lung cancer Lung disease Mother Hypertension Sibling Malignant neoplasm of kidney Lung cancer Social History Social History Social History: Currently lives with in [place]. They have been since 1965 Surrogate decisionmaker: William, . Full Code. Retired from [employer]. Patient has 3 children. Smoking packs per day: 1 Smoking cigarettes per day: 20.0 Years smoked: 54 Smoking pack-years: 54.00 Smoking status: Former smoker Tobacco type: cigarettes Smoking end date: 10/27/18 Alcohol intake: never Substance use: never Do You Feel Safe in your Home?: Yes Lack of Transportation: No Lack of Food: Never True Current Housing: I Have Housing Concerned About Future Housing: No Difficulty Paying Gas/Electric Bills: No Difficulty Paying for Meds: No Currently Unemployed: No Education: Decline to Answer Difficulty w/ Childcare or Family Care: No Living arrangements: with family Occupation/Education: retired Gender identity (if verbalized by the patient): Female Spiritual care concerns: No Meds Home Medications and Allergies Home Medications ?Medication ?Instructions ?Recorded ?Confirmed ?Type atorvastatin 40 mg tablet 40 mg PO DAILY 05/05/19 12/03/23 History aspirin 81 mg tablet,delayed 81 mg PO DAILY 05/06/19 12/03/23 History release calcium carbonate 600 mg PO BID 05/06/19 12/03/23 History levothyroxine 50 mcg tablet 50 mcg PO DAILY 05/06/19 12/03/23 History levalbuterol HCl 1.25 mg/3 mL 0.63 mg (1.512 mL) inhalation 10/04/23 12/03/23 Rx solution for nebulization Q6HRT PRN shortness of breath or wheezing #72 mL azithromycin 250 mg tablet 500 mg (2 x 250 mg) PO QMWF #36 12/03/23 12/03/23 Rx tabs budesonide 160 mcg-glycopyr 9 2 inh inhalation BID #32.1 grams 12/03/23 12/03/23 Rx mcg-formot 4.8 mcg/actuation HFA inhaler (Breztri Aerosphere) albuterol sulfate 90 mcg/actuation 2 puff inhalation Q4H PRN 01/21/24 Rx aerosol inhaler shortness of breath, wheezing #8.5 grams albuterol 90 mcg/actuation aerosol 90 mcg inhalation PRN 06/28/24 06/28/24 History inhaler atorvastatin 40 mg tablet (Lipitor) 40 mg PO DAILY 06/28/24 06/28/24 History azithromycin 250 mg tablet 500 mg PO .COMPLEX 06/28/24 06/28/24 History levothyroxine 50 mcg capsule 50 mcg PO DAILY 06/28/24 06/28/24 History Allergies Allergy/AdvReac Type Severity Reaction Status Date / Time No Known Allergies Allergy Verified 06/29/24 08:19 Vital Signs Vital Signs - 24 hr 07/06/24 16:43 07/06/24 17:04 07/06/24 17:50 Temperature Pulse Rate 96 95 185 H Respiratory Rate 20 23 H Blood Pressure Pulse Oximetry 97 Oxygen Delivery Mechanical Ventilation Fraction of Inspired Oxygen 40 07/06/24 17:55 07/06/24 17:56 07/06/24 18:00 Temperature 97.5 F L Pulse Rate 210 H 180 H 121 H Respiratory Rate 25 H 27 H Blood Pressure 119/56 L Pulse Oximetry 95 Oxygen Delivery Fraction of Inspired Oxygen 07/06/24 18:00 07/06/24 18:09 07/06/24 18:13 Temperature Pulse Rate 190 H 167 H 167 H Respiratory Rate 20 Blood Pressure Pulse Oximetry Oxygen Delivery Fraction of Inspired Oxygen 07/06/24 18:20 07/06/24 18:20 07/06/24 18:50 Temperature Pulse Rate 167 H 167 H 95 Respiratory Rate 17 20 20 Blood Pressure Pulse Oximetry Oxygen Delivery Fraction of Inspired Oxygen 07/06/24 18:50 07/06/24 20:00 07/06/24 20:00 Temperature Pulse Rate 95 86 86 Respiratory Rate 20 20 20 Blood Pressure Pulse Oximetry Oxygen Delivery Fraction of Inspired Oxygen 07/06/24 20:00 07/06/24 20:00 07/06/24 20:00 Temperature 99.4 F Pulse Rate 86 Respiratory Rate 20 Blood Pressure 126/59 L Pulse Oximetry 95 95 Oxygen Delivery Mechanical Ventilation Fraction of Inspired Oxygen 40 40 07/06/24 20:00 07/06/24 20:10 07/06/24 21:23 Temperature Pulse Rate 90 85 81 Respiratory Rate 20 Blood Pressure Pulse Oximetry 96 Oxygen Delivery Mechanical Ventilation Fraction of Inspired Oxygen 40 07/06/24 21:32 07/06/24 22:00 07/06/24 22:00 Temperature Pulse Rate 81 75 75 Respiratory Rate 20 20 Blood Pressure 97/48 L Pulse Oximetry 95 Oxygen Delivery Fraction of Inspired Oxygen 07/06/24 22:00 07/06/24 22:00 07/06/24 22:30 Temperature Pulse Rate 75 75 74 Respiratory Rate 20 20 20 Blood Pressure 107/52 L Pulse Oximetry 97 Oxygen Delivery Fraction of Inspired Oxygen 07/06/24 23:11 07/07/24 00:00 07/07/24 00:00 Temperature Pulse Rate 96 70 70 Respiratory Rate 20 20 Blood Pressure Pulse Oximetry 95 Oxygen Delivery Mechanical Ventilation Fraction of Inspired Oxygen 40 07/07/24 00:00 07/07/24 00:00 07/07/24 00:00 Temperature Pulse Rate 70 Respiratory Rate 20 Blood Pressure 89/48 L Pulse Oximetry 97 96 Oxygen Delivery Mechanical Ventilation Fraction of Inspired Oxygen 40 40 07/07/24 00:00 07/07/24 00:30 07/07/24 01:00 Temperature 97.5 F L Pulse Rate 70 69 74 Respiratory Rate 20 20 Blood Pressure 98/53 L 133/59 L Pulse Oximetry 97 97 Oxygen Delivery Fraction of Inspired Oxygen 07/07/24 02:00 07/07/24 02:00 07/07/24 02:00 Temperature 98.3 F Pulse Rate 71 71 71 Respiratory Rate 20 20 20 Blood Pressure 100/54 L Pulse Oximetry 96 Oxygen Delivery Fraction of Inspired Oxygen 07/07/24 02:10 07/07/24 02:10 07/07/24 02:18 Temperature Pulse Rate 76 76 78 Respiratory Rate 21 H 20 Blood Pressure Pulse Oximetry 97 Oxygen Delivery Mechanical Ventilation Fraction of Inspired Oxygen 40 07/07/24 02:30 07/07/24 03:16 07/07/24 03:26 Temperature 98.3 F Pulse Rate 75 Respiratory Rate 21 H Blood Pressure 122/71 Pulse Oximetry 97 96 Oxygen Delivery Mechanical Ventilation Fraction of Inspired Oxygen 40 40 07/07/24 04:00 07/07/24 04:00 07/07/24 04:00 Temperature Pulse Rate 70 70 73 Respiratory Rate 20 20 Blood Pressure Pulse Oximetry Oxygen Delivery Fraction of Inspired Oxygen 07/07/24 04:00 07/07/24 04:59 07/07/24 05:00 Temperature 98.3 F 98.5 F Pulse Rate 73 74 75 Respiratory Rate 20 20 Blood Pressure 108/51 L 125/68 Pulse Oximetry 98 98 98 Oxygen Delivery Mechanical Ventilation Fraction of Inspired Oxygen 40 07/07/24 06:00 07/07/24 06:00 07/07/24 06:00 Temperature 98.6 F Pulse Rate 74 74 74 Respiratory Rate 20 20 20 Blood Pressure 104/55 L Pulse Oximetry 98 Oxygen Delivery Fraction of Inspired Oxygen 07/07/24 06:00 07/07/24 08:00 07/07/24 08:00 Temperature Pulse Rate 74 72 75 Respiratory Rate 20 20 Blood Pressure Pulse Oximetry Oxygen Delivery Fraction of Inspired Oxygen 07/07/24 08:00 07/07/24 08:00 07/07/24 08:00 Temperature 98.7 F Pulse Rate 75 69 70 Respiratory Rate 20 22 H Blood Pressure 123/62 Pulse Oximetry 99 Oxygen Delivery Fraction of Inspired Oxygen 07/07/24 08:00 07/07/24 08:00 07/07/24 08:26 Temperature Pulse Rate 76 Respiratory Rate 16 Blood Pressure Pulse Oximetry Oxygen Delivery Mechanical Ventilation Fraction of Inspired Oxygen 40 40 07/07/24 08:27 07/07/24 08:36 07/07/24 08:37 Temperature Pulse Rate 72 74 72 Respiratory Rate 18 18 Blood Pressure Pulse Oximetry 100 Oxygen Delivery Mechanical Ventilation Fraction of Inspired Oxygen 40 07/07/24 08:49 07/07/24 09:19 07/07/24 09:21 Temperature Pulse Rate 71 72 72 Respiratory Rate 18 18 18 Blood Pressure Pulse Oximetry Oxygen Delivery Fraction of Inspired Oxygen 07/07/24 10:00 07/07/24 10:00 07/07/24 10:00 Temperature 98.9 F Pulse Rate 69 69 72 Respiratory Rate 18 18 18 Blood Pressure 95/51 L Pulse Oximetry 98 Oxygen Delivery Fraction of Inspired Oxygen 07/07/24 10:00 07/07/24 10:00 07/07/24 10:53 Temperature Pulse Rate 71 71 74 Respiratory Rate 18 18 Blood Pressure Pulse Oximetry Oxygen Delivery Fraction of Inspired Oxygen 07/07/24 11:12 07/07/24 11:25 07/07/24 11:25 Temperature Pulse Rate 78 117 H 117 H Respiratory Rate 18 18 Blood Pressure Pulse Oximetry 100 Oxygen Delivery Mechanical Ventilation Fraction of Inspired Oxygen 40 07/07/24 11:58 07/07/24 12:00 07/07/24 12:00 Temperature 98.1 F Pulse Rate 133 H 130 H Respiratory Rate 18 Blood Pressure 112/59 L 98/55 L Pulse Oximetry 96 Oxygen Delivery Mechanical Ventilation Fraction of Inspired Oxygen 40 07/07/24 12:00 07/07/24 12:00 07/07/24 12:06 Temperature Pulse Rate 113 H 109 H Respiratory Rate 18 Blood Pressure Pulse Oximetry Oxygen Delivery Fraction of Inspired Oxygen 40 07/07/24 12:06 07/07/24 12:08 07/07/24 12:09 Temperature Pulse Rate 130 H 117 H 109 H Respiratory Rate 18 18 Blood Pressure 98/55 L Pulse Oximetry Oxygen Delivery Fraction of Inspired Oxygen 07/07/24 14:00 07/07/24 14:43 07/07/24 14:44 Temperature 98.4 F Pulse Rate 118 H 117 H 117 H Respiratory Rate 18 18 Blood Pressure 86/49 L Pulse Oximetry 96 96 Oxygen Delivery Mechanical Ventilation Fraction of Inspired Oxygen 40 07/07/24 14:53 07/07/24 15:12 07/07/24 16:18 Temperature Pulse Rate 109 H 121 H 62 Respiratory Rate 18 Blood Pressure Pulse Oximetry 98 Oxygen Delivery Mechanical Ventilation Fraction of Inspired Oxygen 40 Exam 2 Narrative: General: Pt is sedated and intubated and on mechanical ventilation HENT: OGT in place with tube feeding at 40 ml/h Lungs/Chest: Trachea central, better air entry this morning, no wheezing or rales. Cardiac: Irregularly irregular, tachycardic. No murmurs Circulation: Pedal pulses are intact and symmetrical. Abdomen: Decreased bowel sounds. Obese. Soft. NT. ND. Extremities: No clubbing, cyanosis or edema. Warm : [place] in place Neurologic: Intubated, sedated opens her eyes but does not follow simple commands, pupils equal and reactive. Results Labs 07/07/24 11:35 07/07/24 04:12 Labs: Short CBC 07/06/24 07/07/24 07/07/24 Range/Units 21:54 04:11 11:35 WBC 13.3 H 13.0 H (4.5-10.0) K/mm3 Hgb 8.4 L 8.0 L 7.9 L (12.0-15.0) g/dL Hct 26.5 L 25.3 L 24.5 L (37.0-47.0) % Plt Count 222 217 (150-375) k/mm3 BMP 07/06/24 07/07/24 18:34 04:12 Sodium 145 149 H Potassium 5.1 H 4.3 Chloride 103 106 Carbon Dioxide 28 28 BUN 108 H 114 H Creatinine 1.70 H 1.61 H Glucose 291 H 121 H Calcium 8.3 L 8.6 Cardiac Enzymes 07/06/24 Range/Units 18:34 Troponin I 0.102 H* (0.000-0.034) ng/mL Liver Function 07/07/24 Range/Units 04:12 Total Bilirubin 0.5 (0.2-1.3) mg/dL AST 52 H (14-36) U/L ALT 47 H (6-35) U/L Alkaline Phosphatase 46 (38-126) U/L Albumin 4.5 (3.5-5.1) g/dL
[2024-07-07] MEDS: AMIODARONE 360 MG/D5W 200 ML 360 MG/200 ML BAG 16.67 MG IV CONT (17:23)
[2024-07-07 18:16] LABS: Glucose Point of Care 205 mg/dl (65-105)
[2024-07-07] MEDS: INSULIN ASPART (*BKC) 100 UNITS/ML SUB-Q ×2 (18:16→23:53)
[2024-07-07 19:15] LABS: Partial Thromboplastin Time > 200.0 Seconds (22.3-36.8)
[2024-07-07] MEDS: MIDAZOLAM 100MG/NS 100ML(*CRX) 100 MG/100 ML BAG IV CONT (21:00)
[2024-07-07 21:33] LABS: Myoglobin, Urine <1 mg/L (0-1)
[2024-07-07 23:51] LABS: Glucose Point of Care 201 mg/dl (65-105)
[2024-07-08] VITALS (42 sets, daily range): BP systolic 67–120; BP diastolic 38–88; PULSE 54–146; RESP 14–20; TEMP 36.8–37.5; O2SAT 93–100
[2024-07-08] MEDS: FENTANYL 2,500MCG/NS250ML(*CRX 2,500 MCG/250 ML BAG 7.5 MCG IV CONT (00:45)
[2024-07-08] MEDS: IPRATROPIUM 0.5 MG/ALBUTEROL SULFATE 2.5 MG AMPUL.NEB 3 ML INHALATION ×4 (02:08→21:32)
[2024-07-08 03:03] LABS: Partial Thromboplastin Time > 200.0 Seconds (22.3-36.8)
[2024-07-08 04:47] LABS: Alveolar/Arterial O2 Gradient 174.7 mmHg; Base Excess ABG 2.2 mEq/l (+/-2.0); Carboxyhemoglobin 0.5 % THb (0-2.0); Fractional Inspired Oxygen 40 %; HCO3 ABG 26.2 mEq/l (22.0-26.0); Methemoglobin ABG 0.3 %THb (0-1.5); Oxygen Content ABG 11.6 %vol (16.0-22.0); Oxyhemoglobin 90.7 % THb (90.0-100.0); PCO2 ABG 38.4 mmHg (35.0-45.0); PO2 ABG 66.3 mmHg (80.0-100.0); PO2 FiO2 Ratio Arterial Blood 1.66 %; Reduced Hemoglobin 8.5 %THb (0-5.0); pH ABG 7.452 (7.350-7.450)
[2024-07-08 04:48] LABS: Device VENTILATOR; Modified Allen's Test Pass; Site Drawn RIGHT RADIAL
[2024-07-08 04:49] LABS: Arterial Blood Gas PEEP 5 cmH2O; Arterial Blood Gas Tidal Volume 480 ml; Arterial Blood Gas Vent Mode CMV; Arterial Blood Gas Ventilator rate 18 /MIN
[2024-07-08 05:05] LABS: Basophils Percent Auto 0.1 % (0.2-1.2); Eosinophils Absolute Auto 0.2 K/mm3 (0-0.3); Eosinophils Percent Auto 0.8 % (0-4.4); Hematocrit 26.1 % (37.0-47.0); Hemoglobin 8.5 g/dL (12.0-15.0); Immature Granulocyte Absolute 0.17 K/mm3 (0.00-0.031); Immature Granulocyte Percent A 0.8 % (0-0.5); Lymphocytes Absolute Auto 1.31 K/mm3 (0.9-3.2); Lymphocytes Percent Auto 6.4 % (18.3-44.2); Mean Corpuscular HGB Conc 32.6 g/dl (32-36); Mean Corpuscular Hemoglobin 28.9 pg (26-34); Mean Corpuscular Volume 88.8 fl (80-100); Mean Platelet Volume 11.7 fl (7.4-10.4); Monocytes Absolute Auto 1.9 K/mm3 (0.1-0.6); Monocytes Percent Auto 9.1 % (2.6-8.5); Neutrophils Percent Auto 82.8 % (45.5-73.1); Nucleated Red Blood Cells Perc 0.3 % (0.0-0.2); Platelet Count Result 248 k/mm3 (150-375); Red Blood Count 2.94 M/mm3 (4.2-5.4); Red Cell Distribution Width 18.3 % (11.5-14.5); White Blood Count 20.5 K/mm3 (4.5-10.0)
[2024-07-08 05:16] LABS: Phosphorus 3.7 mg/dL (2.5-4.5)
[2024-07-08 05:17] LABS: Alanine Aminotransferase 46 U/L (6-35); Albumin Level 3.6 g/dL (3.5-5.1); Alkaline Phosphatase 91 U/L (38-126); Anion Gap 11 mmol/L (4-12); Aspartate Amino Transferase 41 U/L (14-36); Bilirubin,Total 0.4 mg/dL (0.2-1.3); Blood Urea Nitrogen 116 mg/dL (7-17); Calcium 8.7 mg/dL (8.4-10.2); Carbon Dioxide 30 mmol/L (22-30); Chloride 105 mmol/L (98-107); Estimated CRCL calculation 26 ml/min; Estimated Glomerular Filt Rate 40; Glucose 169 mg/dL (65-110); Magnesium 2.7 mg/dL (1.6-2.3); Potassium 3.3 mmol/L (3.4-5.0); Sodium 146 mmol/L (137-145)
[2024-07-08 05:21] LABS: Anisocytosis 1+; Hypochromasia 1+; Platelet Estimate Adequate (Adequate); Poikilocytosis 1+; Schistocytes None Seen
[2024-07-08] MEDS: AMIODARONE 360 MG/D5W 200 ML 360 MG/200 ML BAG 16.67 MG IV CONT ×2 (05:50→17:57)
[2024-07-08] MEDS: CENTRAL LINE FLUSH 10 ML IV PUSH ×3 (05:55→20:51)
[2024-07-08] MEDS: LEVOTHYROXINE SODIUM 50 MCG TABLET FEED TUBE (05:55)
[2024-07-08] MEDS: POTASSIUM CHLORIDE 20 MEQ PACKET (FOR LIQUID) 40 MEQ PO (08:54)
[2024-07-08] MEDS: INSULIN GLARGINE (*BKC) 100 UNITS/ML 8 UNITS SUB-Q (08:54)
[2024-07-08] MEDS: PANTOPRAZOLE SODIUM IV 40 MG VIAL IV PUSH ×2 (08:54→20:51)
[2024-07-08] MEDS: ASPIRIN 81 MG CHEWABLE TABLET PO (08:54)
[2024-07-08] MEDS: MINERAL OIL/WHITE PETROLATUM OINTMENT 1 APPLIC EACH EYE ×2 (08:54→20:51)
[2024-07-08] MEDS: ATORVASTATIN 40 MG TABLET PO (08:54)
[2024-07-08 10:23] LABS: Partial Thromboplastin Time 111.1 Seconds (22.3-36.8)
--- NOTE | 2024-07-08 11:19 | PCFNICU ---
ICU Rounding Note: Pt current nutrition is Nepro at 40 ml/hr. Last recorded weight is 71 kg, up from 64.3 kg. Bowel Motility: +BM reported 07/07 Labs Reviewed: Cr 1.51, GFR 40, Glu 169, Cr 1.51, Na 146 Meds Noted: Fentanyl, Versed, Lovenox, Protonix, NovoLog Skin: Deep Tissue-coccyx Additional Notes: Patient remains on mechanical vent. Tube feedings are being tolerated of Nepro at 40 ml/hr. Flush 100 ml q 4 hours. Discussions to in ICU rounds regarding possible Trach and PEG. Agree with diet orders. Following daily in ICU rounds. Will monitor weight, labs, skin, diet orders, meds, tube feedings tolerance every Saturday and Saturday .
[2024-07-08] MEDS: CEFEPIME 1 GM/NS 50 ML 1 GM/50 ML BAG IVPB ×2 (11:30→21:27)
--- NOTE | 2024-07-08 11:36 | PM.PNCARD ---
Progress Note: A&P Assessment and Plan (1) Elevated troponin: Code(s): R77.8 - Other specified abnormalities of plasma proteins Status: Acute Plan 1. NSTEMI. Troponins peaked at 1.07. 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 Echocardiogram with preserved LVEF, cannot rule out very mild hypokinesis of the apical wall. 2. Coronary artery disease s/p MATTY x 2 to the RCA in 2019 for an acute coronary syndrome 3. Acute on chronic hypoxic and hypercarbic respiratory failure due to COPD exacerbation, requiring mechanical ventilation 4. COPD exacerbation, known severe COPD 5. Atrial fibrillation with RVR, new diagnosis PLAN: -Continue ASA, statin. -Continue Metoprolol. -Given paroxysmal AFIB with RVR overnight, will continue with IV Amiodarone drip for now. Consider transitioning to PO Amiodarone tomorrow if she remains in sinus. -Continue Heparin drip for anticoagulation, will eventually need to be transitioned to NOAC. -Will re-evaluate need for ischemic evaluation once extubated and recovered from her respiratory failure. Probably a stress test as outpatient. Has not followed up with our office since 2019 (was seeing Dr. Morales). Recommendations and plan discussed with ICU Physician. Subjective Date/time seen: 07/08/24 11:36 Interval history: Reason for visit: Elevated troponins HPI: 78-year-old woman with chronic hypoxic respiratory failure on home O2 4 L at night and hyperlipidemia presented with acute respiratory distress. She is currently intubated and history obtained through chart review. It appeared that she had worsening shortness of breath for 15 minutes prior to EMS arrival which mildly improved with CPAP in 10 mg of Decadron with 2 g of magnesium. However she quickly further decompensated requiring intubation with ABG demonstrating hypoxic hypercarbic acidosis. As part of her workup troponins were drawn which were elevated. Date of service 06/30: Remains intubated. Date of service 07/07: On 07/06, patient went into narrow complex tachycardia. Was given Adenosine 6mg followed by 12mg. Rhythm showed atrial flutter. Was given IV Metoprolol. Transiently went back into sinus, but now in AFIB with RVR this morning. Remains intubated. Date of service 07/08: Currently in sinus, however, had paroxysmal AFIB with RVR overnight and early this morning. Review of Systems Review of Systems: ROS unobtainable: Yes unobtainable due to endotracheal tube Exam Const: Other: On mechanical ventilation HENMT: Other: OETT in place Resp: Other: On mechanical ventilation Cardio: Rate: regular rate Rhythm: regular rhythm Skin: General skin exam: normal color Neuro: Other: Sedated Psych: Other: Sedated Objective Data Vital Signs Vital Signs: Vital Signs - 24 hr 07/07/24 11:58 07/07/24 12:00 07/07/24 12:00 Temperature 36.7 C Pulse Rate 133 H 130 H Respiratory Rate 18 Blood Pressure 112/59 L 98/55 L Pulse Oximetry 96 Oxygen Delivery Mechanical Ventilation Fraction of Inspired Oxygen 40 07/07/24 12:00 07/07/24 12:00 07/07/24 12:06 Temperature Pulse Rate 113 H 109 H Respiratory Rate 18 Blood Pressure Pulse Oximetry Oxygen Delivery Fraction of Inspired Oxygen 40 07/07/24 12:06 07/07/24 12:08 07/07/24 12:09 Temperature Pulse Rate 130 H 117 H 109 H Respiratory Rate 18 18 Blood Pressure 98/55 L Pulse Oximetry Oxygen Delivery Fraction of Inspired Oxygen 07/07/24 14:00 07/07/24 14:00 07/07/24 14:00 Temperature 36.9 C Pulse Rate 118 H 118 H 118 H Respiratory Rate 18 18 Blood Pressure 99/58 L Pulse Oximetry 96 Oxygen Delivery Fraction of Inspired Oxygen 07/07/24 14:00 07/07/24 14:43 07/07/24 14:44 Temperature Pulse Rate 118 H 117 H 117 H Respiratory Rate 18 18 Blood Pressure Pulse Oximetry 96 Oxygen Delivery Mechanical Ventilation Fraction of Inspired Oxygen 40 07/07/24 14:53 07/07/24 15:12 07/07/24 16:00 Temperature Pulse Rate 109 H 121 H 57 L Respiratory Rate 18 Blood Pressure Pulse Oximetry Oxygen Delivery Fraction of Inspired Oxygen 07/07/24 16:00 07/07/24 16:00 07/07/24 16:00 Temperature 37.0 C Pulse Rate 56 L 56 L 57 L Respiratory Rate 18 18 18 Blood Pressure 99/57 L Pulse Oximetry 98 Oxygen Delivery Fraction of Inspired Oxygen 07/07/24 16:00 07/07/24 16:00 07/07/24 16:18 Temperature Pulse Rate 62 Respiratory Rate Blood Pressure Pulse Oximetry 98 Oxygen Delivery Mechanical Ventilation Mechanical Ventilation Fraction of Inspired Oxygen 40 40 40 07/07/24 17:23 07/07/24 18:00 07/07/24 18:00 Temperature Pulse Rate 62 65 65 Respiratory Rate 18 18 Blood Pressure 107/51 L Pulse Oximetry Oxygen Delivery Fraction of Inspired Oxygen 07/07/24 18:00 07/07/24 18:00 07/07/24 20:00 Temperature 37.1 C 37.0 C Pulse Rate 65 65 71 Respiratory Rate 18 18 Blood Pressure 95/47 L 110/56 L Pulse Oximetry 97 97 Oxygen Delivery Fraction of Inspired Oxygen 07/07/24 20:00 07/07/24 20:00 07/07/24 20:00 Temperature Pulse Rate 71 71 Respiratory Rate 18 18 Blood Pressure Pulse Oximetry Oxygen Delivery Fraction of Inspired Oxygen 40 07/07/24 20:00 07/07/24 20:00 07/07/24 20:00 Temperature Pulse Rate 71 72 Respiratory Rate Blood Pressure 110/56 L Pulse Oximetry Oxygen Delivery Mechanical Ventilation Fraction of Inspired Oxygen 40 07/07/24 20:45 07/07/24 20:48 07/07/24 20:56 Temperature Pulse Rate 72 73 72 Respiratory Rate 18 18 Blood Pressure Pulse Oximetry 96 Oxygen Delivery Mechanical Ventilation Fraction of Inspired Oxygen 40 07/07/24 21:00 07/07/24 21:00 07/07/24 21:46 Temperature Pulse Rate 72 72 132 H Respiratory Rate 18 18 Blood Pressure Pulse Oximetry Oxygen Delivery Fraction of Inspired Oxygen 07/07/24 22:00 07/07/24 22:00 07/07/24 22:00 Temperature 37.1 C Pulse Rate 124 H 124 H 124 H Respiratory Rate 18 18 Blood Pressure 120/63 Pulse Oximetry 96 Oxygen Delivery Fraction of Inspired Oxygen 07/07/24 22:00 07/07/24 22:00 07/07/24 23:46 Temperature Pulse Rate 124 H 124 H 116 H Respiratory Rate 18 Blood Pressure 120/63 Pulse Oximetry 95 Oxygen Delivery Mechanical Ventilation Fraction of Inspired Oxygen 40 07/08/24 00:00 07/08/24 00:00 07/08/24 00:00 Temperature Pulse Rate 123 H 123 H 123 H Respiratory Rate 18 18 Blood Pressure 105/49 L Pulse Oximetry Oxygen Delivery Fraction of Inspired Oxygen 07/08/24 00:00 07/08/24 00:00 07/08/24 00:00 Temperature 37.4 C Pulse Rate 123 H Respiratory Rate 18 Blood Pressure 105/49 L Pulse Oximetry 96 Oxygen Delivery Mechanical Ventilation Fraction of Inspired Oxygen 40 40 07/08/24 00:00 07/08/24 00:45 07/08/24 00:45 Temperature Pulse Rate 123 H 69 69 Respiratory Rate 18 18 Blood Pressure Pulse Oximetry Oxygen Delivery Fraction of Inspired Oxygen 07/08/24 02:00 07/08/24 02:00 07/08/24 02:00 Temperature 37.2 C Pulse Rate 65 65 65 Respiratory Rate 18 Blood Pressure 106/52 L 105/62 Pulse Oximetry 96 Oxygen Delivery Fraction of Inspired Oxygen 07/08/24 02:00 07/08/24 02:00 07/08/24 02:08 Temperature Pulse Rate 65 65 65 Respiratory Rate 18 18 18 Blood Pressure Pulse Oximetry Oxygen Delivery Fraction of Inspired Oxygen 07/08/24 02:09 07/08/24 02:15 07/08/24 04:00 Temperature Pulse Rate 64 66 70 Respiratory Rate 18 Blood Pressure 113/54 L Pulse Oximetry 95 Oxygen Delivery Mechanical Ventilation Fraction of Inspired Oxygen 40 07/08/24 04:00 07/08/24 04:00 07/08/24 04:00 Temperature Pulse Rate 70 70 Respiratory Rate 18 18 Blood Pressure Pulse Oximetry Oxygen Delivery Fraction of Inspired Oxygen 40 07/08/24 04:00 07/08/24 04:00 07/08/24 04:00 Temperature 37.3 C Pulse Rate 70 69 Respiratory Rate 18 Blood Pressure 113/54 L Pulse Oximetry 93 Oxygen Delivery Mechanical Ventilation Fraction of Inspired Oxygen 40 07/08/24 05:42 07/08/24 05:50 07/08/24 05:50 Temperature Pulse Rate 73 75 75 Respiratory Rate Blood Pressure 109/50 L 109/50 L Pulse Oximetry 97 Oxygen Delivery Mechanical Ventilation Fraction of Inspired Oxygen 40 07/08/24 06:00 07/08/24 06:00 07/08/24 06:00 Temperature Pulse Rate 77 77 77 Respiratory Rate 18 18 Blood Pressure 94/52 L Pulse Oximetry Oxygen Delivery Fraction of Inspired Oxygen 07/08/24 06:00 07/08/24 06:00 07/08/24 08:00 Temperature 37.4 C 36.8 C Pulse Rate 77 77 81 Respiratory Rate 18 18 Blood Pressure 94/52 L 98/52 L Pulse Oximetry 97 98 Oxygen Delivery Fraction of Inspired Oxygen 07/08/24 08:00 07/08/24 08:00 07/08/24 08:00 Temperature Pulse Rate 81 81 81 Respiratory Rate 18 18 Blood Pressure 98/52 L Pulse Oximetry Oxygen Delivery Fraction of Inspired Oxygen 07/08/24 08:00 07/08/24 08:19 07/08/24 08:31 Temperature Pulse Rate 80 81 Respiratory Rate 18 18 Blood Pressure Pulse Oximetry Oxygen Delivery Fraction of Inspired Oxygen 40 07/08/24 08:43 07/08/24 10:00 07/08/24 10:00 Temperature 37.3 C Pulse Rate 86 76 76 Respiratory Rate 18 18 Blood Pressure 109/58 L Pulse Oximetry 99 100 Oxygen Delivery Mechanical Ventilation Fraction of Inspired Oxygen 40 07/08/24 10:00 07/08/24 10:00 07/08/24 10:00 Temperature Pulse Rate 76 76 76 Respiratory Rate 18 Blood Pressure 109/58 L Pulse Oximetry Oxygen Delivery Fraction of Inspired Oxygen 07/08/24 11:32 07/08/24 11:32 Temperature Pulse Rate 73 74 Respiratory Rate 15 18 Blood Pressure Pulse Oximetry Oxygen Delivery Fraction of Inspired Oxygen Intake/Output Intake/Output: Intake & Output 07/05/24 07/06/24 07/07/24 07/08/24 23:59 23:59 23:59 23:59 Intake Total 2530.0 2322.3 2150.4 1359.7 Output Total 600 1150 1250 700 Balance 1930.0 1172.3 900.4 659.7 Meds/Results Medications: Active Medications Generic Name Dose Route Start Last Admin Trade Name Freq PRN Reason Stop Dose Admin Albuterol/Ipratropium 3 ml 06/29/24 02:00 07/08/24 08:13 Ipratropium 0.5 Mg/Albuterol Sulfate 2.5 Mg Ampul.Neb 3 Ml INHALATION 3 ml Q6HRT BARBARA Administration Aspirin 81 mg 07/01/24 08:00 07/08/24 08:54 Aspirin 81 Mg Chewable Tablet PO 81 mg DAILY@0800 BARBARA Administration Atorvastatin Calcium 40 mg 06/29/24 09:00 07/08/24 08:54 Atorvastatin 40 Mg Tablet PO 40 mg DAILY BARBARA Administration Cyanocobalamin 1,000 mcg 07/07/24 12:00 07/07/24 13:35 Cyanocobalamin Inj 1,000 Mcg/Ml Vial IM 07/14/24 09:01 1,000 mcg WEEKLY BARBARA Administration Dextrose 12.5 gm 06/29/24 08:08 Dextrose 50% 25 Gm/50 Ml Syringe IV PUSH PRN PRN Hypoglycemia Protocol Glucagon 1 mg 06/29/24 08:08 Glucagon For Inj 1 Mg Vial IM PRN PRN Hypoglycemia Protocol Glucose 15 gm 06/29/24 08:08 Glucose Oral Gel 15 Gm Of Glucse In 37.5 Gm Tube PO PRN PRN Hypoglycemia Protocol Heparin Sodium (Porcine) 5,000 units 07/07/24 11:24 Heparin Sodium 5,000 Units/Ml Vial IV PUSH PRN PRN aPTT less than 55 seconds Heparin Sodium (Porcine) 2,500 units 07/07/24 11:24 Heparin Sodium 5,000 Units/Ml Vial IV PUSH PRN PRN aPTT 55 - 70 seconds Hydralazine HCl 10 mg 07/06/24 16:42 07/06/24 17:03 Hydralazine Hcl 20 Mg/Ml Vial IV PUSH 10 mg Q4H PRN Administration Blood Pressure - High Dextrose 1,000 mls @ 100 mls/hr 06/29/24 08:08 Dextrose 5% 1,000 Ml IVPB PRN PRN Hypoglycemia Protocol Fentanyl Citrate 2,500 mcg in 250 mls @ 7.5 mls/hr 07/06/24 17:55 07/08/24 11:32 Fentanyl 2,500 Mcg/Ns 250 Ml IV CONT 50 mcg/hr .[id number] BARBARA 5 mls/hr Titration Protocol 75 MCG/HR Midazolam HCl 100 mg in 100 mls @ 3 mls/hr 07/06/24 17:55 07/08/24 11:32 Versed 100 Mg/Ns 100 Ml IV CONT 2 mg/hr .[id number] BARBARA 2 mls/hr Titration Protocol 3 MG/HR Heparin Sodium/Dextrose 25,000 units in 250 mls @ 6 mls/hr 07/07/24 11:25 07/08/24 10:27 Heparin Sodium/D5w 100 Units/Ml IV CONT 600 units/hr .Q24H BARBARA 6 mls/hr Titration Protocol 600 UNITS/HR Amiodarone HCl/Dextrose 360 mg in 200 mls @ 16.667 mls/hr 07/07/24 18:00 07/08/24 10:00 Nexterone 360 Mg/D5w 200 Ml IV CONT 07/08/24 17:59 0.5 mg/min .Q12H BARBARA 16.67 mls/hr Infusion Protocol 0.5 MG/MIN Cefepime HCl 1 gm in 50 mls @ 100 mls/hr 07/08/24 11:00 07/08/24 11:30 Maxipime 1 Gm/Ns 50 Ml IVPB 100 mls/hr Q12HR BARBARA Administration Vancomycin HCl 1,000 mg in 250 mls @ 250 mls/hr 07/08/24 12:00 Vancomycin 1,000 Mg/Ns 250 Ml IVPB 07/08/24 12:59 ONCE ONE Insulin Aspart 3 - 6 units 06/29/24 12:00 07/08/24 05:55 Insulin Aspart (*Bkc) 100 Units/Ml SUB-Q Not Given Q6HR BARBARA Protocol Insulin Glargine 8 units 07/06/24 09:00 07/08/24 08:54 Insulin Glargine (*Bkc) 100 Units/Ml SUB-Q 8 units DAILY BARBARA Administration Levothyroxine Sodium 50 mcg 06/30/24 06:30 07/08/24 05:55 Levothyroxine Sodium 50 Mcg Tablet FEED TUBE 50 mcg DAILY@0630 BARBARA Administration Metoprolol Tartrate 25 mg 07/07/24 21:00 07/07/24 21:46 Metoprolol Tartrate 25 Mg Tablet PO 25 mg Q12HR BARBARA Administration Multi-Ingred Cream/Lotion/Oil/Oint 1 applic 06/29/24 09:00 07/08/24 08:54 Mineral Oil/White Petrolatum Ointment EACH EYE 1 applic Q12HR BARBARA Administration Pantoprazole Sodium 40 mg 07/06/24 21:00 07/08/24 08:54 Pantoprazole Sodium Iv 40 Mg Vial IV PUSH 40 mg Q12HR BARBARA Administration Sodium Chloride 10 ml 06/29/24 14:00 07/08/24 05:55 Central Line Flush IV PUSH 10 ml Q8HR BARBARA Administration Sodium Chloride 10 ml 06/29/24 12:40 Central Line Flush IV PUSH PRN PRN with TPN bag changes Sodium Chloride 20 ml 06/29/24 12:40 Central Line Flush IV PUSH PRN PRN after blood draws Vancomycin HCl 1 each 07/08/24 10:48 Vancomycin For Acute Kidney Injury IVPB PRN PRN Vancomycin Protocol Radiology Results: ITS Impressions Abdomen X-Ray 06/28/24 20:03 IMPRESSION: Nasogastric tube in good position and ready for immediate use. Abdomen Ultrasound 07/03/24 14:12 IMPRESSION: 1. Normal right upper quadrant ultrasound status post cholecystectomy. Renal Ultrasound 07/06/24 08:30 IMPRESSION: 1. No hydronephrosis in either kidney. Chest X-Ray 07/08/24 06:09 Impression: COPD with bibasilar scarring. Worsening haziness left lung base. Correlate for developing pneumonia or asymmetric pulmonary edema. Support tubes, as above. Head CT 07/08/24 10:08 IMPRESSION: 1. No acute intracranial process. 2. 8 mm calcified extra-axial mass overlying the left parietal lobe most consistent with a meningioma. Labs Labs: Laboratory Results - last 24 hr 07/05/24 07/07/24 07/07/24 16:40 11:28 11:35 WBC 13.0 H RBC 2.77 L Hgb 7.9 L Hct 24.5 L MCV 88.4 MCH 28.5 MCHC 32.2 RDW 18.0 H Plt Count 217 MPV 11.2 H Immature Gran % (Auto) 0.6 H Neut % (Auto) 76.8 H Lymph % (Auto) 10.[address] [place] % (Auto) 11.9 H Eos % (Auto) 0.3 Baso % (Auto) 0.2 Lymph # (Auto) 1.33 [place] # (Auto) 1.6 H Eos # (Auto) 0.0 Baso # (Auto) 0.0 Abs Immat Gran (auto) 0.08 H Absolute Neuts (auto) 10.0 H Absolute Nucleated RBC 0.050 H Nucleated RBC % 0.4 H Platelet Estimate Hypochromasia Poikilocytosis Anisocytosis Schistocytes PT 15.9 H INR 1.2 APTT 27.7 Puncture Site ABG pH ABG pCO2 ABG pO2 ABG PO2/FiO2 Ratio ABG HCO3 ABG O2 Saturation ABG O2 Content ABG Base Excess A-a Gradient Oxyhemoglobin Carboxyhemoglobin Methemoglobin Reduced Hemoglobin Total Hemoglobin O2 Delivery Device O2 Liters/Min Minute Volume Vent Rate Vent Mode FiO2 Tidal Volume PEEP Peak Inspir Pressure Pressure Support Sodium Potassium Chloride Carbon Dioxide Anion Gap BUN Creatinine Estim Creat Clear Calc Estimated GFR Glucose POC Capillary Glucose 136 H Calcium Phosphorus Magnesium Total Bilirubin AST ALT Alkaline Phosphatase Total Protein Albumin Urine Myoglobin <1 07/07/24 07/07/24 07/07/24 18:13 18:14 23:49 WBC RBC Hgb Hct MCV MCH MCHC RDW Plt Count MPV Immature Gran % (Auto) Neut % (Auto) Lymph % (Auto) [place] % (Auto) Eos % (Auto) Baso % (Auto) Lymph # (Auto) [place] # (Auto) Eos # (Auto) Baso # (Auto) Abs Immat Gran (auto) Absolute Neuts (auto) Absolute Nucleated RBC Nucleated RBC % Platelet Estimate Hypochromasia Poikilocytosis Anisocytosis Schistocytes PT INR APTT > 200.0 H* Puncture Site ABG pH ABG pCO2 ABG pO2 ABG PO2/FiO2 Ratio ABG HCO3 ABG O2 Saturation ABG O2 Content ABG Base Excess A-a Gradient Oxyhemoglobin Carboxyhemoglobin Methemoglobin Reduced Hemoglobin Total Hemoglobin O2 Delivery Device O2 Liters/Min Minute Volume Vent Rate Vent Mode FiO2 Tidal Volume PEEP Peak Inspir Pressure Pressure Support Sodium Potassium Chloride Carbon Dioxide Anion Gap BUN Creatinine Estim Creat Clear Calc Estimated GFR Glucose POC Capillary Glucose 205 H 201 H Calcium Phosphorus Magnesium Total Bilirubin AST ALT Alkaline Phosphatase Total Protein Albumin Urine Myoglobin 07/08/24 07/08/24 07/08/24 01:01 04:45 04:54 WBC 20.5 H RBC 2.94 L Hgb 8.5 L Hct 26.1 L MCV 88.8 MCH 28.9 MCHC 32.6 RDW 18.3 H Plt Count 248 MPV 11.7 H Immature Gran % (Auto) 0.8 H Neut % (Auto) 82.8 H Lymph % (Auto) 6.[address] [place] % (Auto) 9.1 H Eos % (Auto) 0.8 Baso % (Auto) 0.1 L Lymph # (Auto) 1.31 [place] # (Auto) 1.9 H Eos # (Auto) 0.2 Baso # (Auto) 0.0 Abs Immat Gran (auto) 0.17 H Absolute Neuts (auto) 17.0 H Absolute Nucleated RBC 0.060 H Nucleated RBC % 0.3 H Platelet Estimate Adequate Hypochromasia 1+ Poikilocytosis 1+ Anisocytosis 1+ Schistocytes None seen PT INR APTT > 200.0 H* Puncture Site Right radial ABG pH 7.452 H ABG pCO2 38.4 ABG pO2 66.3 L ABG PO2/FiO2 Ratio 1.66 ABG HCO3 26.2 H ABG O2 Saturation 94.0 L ABG O2 Content 11.6 L ABG Base Excess 2.2 A-a Gradient 174.7 Oxyhemoglobin 90.7 Carboxyhemoglobin 0.5 Methemoglobin 0.3 Reduced Hemoglobin 8.5 H Total Hemoglobin 9.0 L O2 Delivery Device Ventilator O2 Liters/Min Not Reportable Minute Volume Not Reportable Vent Rate 18 Vent Mode Cmv FiO2 40 Tidal Volume 480 PEEP 5 Peak Inspir Pressure Not Reportable Pressure Support Not Reportable Sodium 146 H Potassium 3.3 L Chloride 105 Carbon Dioxide 30 Anion Gap 11 BUN 116 H Creatinine 1.51 H Estim Creat Clear Calc 26 Estimated GFR 40 L Glucose 169 H POC Capillary Glucose Calcium 8.7 Phosphorus 3.7 Magnesium 2.7 H Total Bilirubin 0.4 AST 41 H ALT 46 H Alkaline Phosphatase 91 Total Protein 6.0 L Albumin 3.6 Urine Myoglobin 07/08/24 09:47 WBC RBC Hgb Hct MCV MCH MCHC RDW Plt Count MPV Immature Gran % (Auto) Neut % (Auto) Lymph % (Auto) [place] % (Auto) Eos % (Auto) Baso % (Auto) Lymph # (Auto) [place] # (Auto) Eos # (Auto) Baso # (Auto) Abs Immat Gran (auto) Absolute Neuts (auto) Absolute Nucleated RBC Nucleated RBC % Platelet Estimate Hypochromasia Poikilocytosis Anisocytosis Schistocytes PT INR APTT 111.1 H Puncture Site ABG pH ABG pCO2 ABG pO2 ABG PO2/FiO2 Ratio ABG HCO3 ABG O2 Saturation ABG O2 Content ABG Base Excess A-a Gradient Oxyhemoglobin Carboxyhemoglobin Methemoglobin Reduced Hemoglobin Total Hemoglobin O2 Delivery Device O2 Liters/Min Minute Volume Vent Rate Vent Mode FiO2 Tidal Volume PEEP Peak Inspir Pressure Pressure Support Sodium Potassium Chloride Carbon Dioxide Anion Gap BUN Creatinine Estim Creat Clear Calc Estimated GFR Glucose POC Capillary Glucose Calcium Phosphorus Magnesium Total Bilirubin AST ALT Alkaline Phosphatase Total Protein Albumin Urine Myoglobin
--- NOTE | 2024-07-08 11:54 | WPDGIPROGNO ---
Progress Note: A&P Assessment and Plan (1) Acute on chronic anemia: Code(s): D64.9 - Anemia, unspecified Status: Acute Assessment and Plan: h/h stable, no overt gib probably multifactorial no need of urgent egd (she had one 2020 when G-tube was placed- removed since) continue with tube feeding by OGT will follow as needed (2) Occult blood in stools: Code(s): R19.5 - Other fecal abnormalities Status: Acute Assessment and Plan: h/h low but stable (3) Non-ST elevation [place] (NSTEMI): Code(s): I21.4 - Non-ST elevation (NSTEMI) myocardial infarction Status: Acute (4) RASHEL (acute kidney injury): Code(s): N17.9 - Acute kidney failure, unspecified Status: Acute (5) Acute exacerbation of chronic obstructive pulmonary disease: Code(s): J44.1 - Chronic obstructive pulmonary disease with (acute) exacerbation Status: Acute Assessment and Plan: still intubated Subjective Date/time seen: 07/08/24 11:54 Interval history: still intubated, tolerating tube feeding at 40 ml/h no report of gib Review of Systems Review of Systems: All systems reviewed & are unremarkable except as noted in HPI and below Exam Narrative: General: Pt is sedated and intubated and on mechanical ventilation HENT: OGT in place with tube feeding at 40 ml/h Lungs/Chest: Trachea central, better air entry this morning, no wheezing or rales. Cardiac: Irregularly irregular, tachycardic. No murmurs Circulation: Pedal pulses are intact and symmetrical. Abdomen: Decreased bowel sounds. Obese. Soft. NT. ND. Extremities: No clubbing, cyanosis or edema. Warm : [place] in place Neurologic: Intubated, sedated opens her eyes but does not follow simple commands, pupils equal and reactive. Objective Data Vital Signs Vital Signs: Vital Signs - 24 hr 07/07/24 11:58 07/07/24 12:00 07/07/24 12:00 Temperature 98.1 F Pulse Rate 133 H 130 H Respiratory Rate 18 Blood Pressure 112/59 L 98/55 L Pulse Oximetry 96 Oxygen Delivery Mechanical Ventilation Fraction of Inspired Oxygen 40 07/07/24 12:00 07/07/24 12:00 07/07/24 12:06 Temperature Pulse Rate 113 H 109 H Respiratory Rate 18 Blood Pressure Pulse Oximetry Oxygen Delivery Fraction of Inspired Oxygen 40 07/07/24 12:06 07/07/24 12:08 07/07/24 12:09 Temperature Pulse Rate 130 H 117 H 109 H Respiratory Rate 18 18 Blood Pressure 98/55 L Pulse Oximetry Oxygen Delivery Fraction of Inspired Oxygen 07/07/24 14:00 07/07/24 14:00 07/07/24 14:00 Temperature 98.4 F Pulse Rate 118 H 118 H 118 H Respiratory Rate 18 18 Blood Pressure 99/58 L Pulse Oximetry 96 Oxygen Delivery Fraction of Inspired Oxygen 07/07/24 14:00 07/07/24 14:43 07/07/24 14:44 Temperature Pulse Rate 118 H 117 H 117 H Respiratory Rate 18 18 Blood Pressure Pulse Oximetry 96 Oxygen Delivery Mechanical Ventilation Fraction of Inspired Oxygen 40 07/07/24 14:53 07/07/24 15:12 07/07/24 16:00 Temperature Pulse Rate 109 H 121 H 57 L Respiratory Rate 18 Blood Pressure Pulse Oximetry Oxygen Delivery Fraction of Inspired Oxygen 07/07/24 16:00 07/07/24 16:00 07/07/24 16:00 Temperature 98.6 F Pulse Rate 56 L 56 L 57 L Respiratory Rate 18 18 18 Blood Pressure 99/57 L Pulse Oximetry 98 Oxygen Delivery Fraction of Inspired Oxygen 07/07/24 16:00 07/07/24 16:00 07/07/24 16:18 Temperature Pulse Rate 62 Respiratory Rate Blood Pressure Pulse Oximetry 98 Oxygen Delivery Mechanical Ventilation Mechanical Ventilation Fraction of Inspired Oxygen 40 40 40 07/07/24 17:23 07/07/24 18:00 07/07/24 18:00 Temperature Pulse Rate 62 65 65 Respiratory Rate 18 18 Blood Pressure 107/51 L Pulse Oximetry Oxygen Delivery Fraction of Inspired Oxygen 07/07/24 18:00 07/07/24 18:00 07/07/24 20:00 Temperature 98.7 F 98.6 F Pulse Rate 65 65 71 Respiratory Rate 18 18 Blood Pressure 95/47 L 110/56 L Pulse Oximetry 97 97 Oxygen Delivery Fraction of Inspired Oxygen 07/07/24 20:00 07/07/24 20:00 07/07/24 20:00 Temperature Pulse Rate 71 71 Respiratory Rate 18 18 Blood Pressure Pulse Oximetry Oxygen Delivery Fraction of Inspired Oxygen 40 07/07/24 20:00 07/07/24 20:00 07/07/24 20:00 Temperature Pulse Rate 71 72 Respiratory Rate Blood Pressure 110/56 L Pulse Oximetry Oxygen Delivery Mechanical Ventilation Fraction of Inspired Oxygen 40 07/07/24 20:45 07/07/24 20:48 07/07/24 20:56 Temperature Pulse Rate 72 73 72 Respiratory Rate 18 18 Blood Pressure Pulse Oximetry 96 Oxygen Delivery Mechanical Ventilation Fraction of Inspired Oxygen 40 07/07/24 21:00 07/07/24 21:00 07/07/24 21:46 Temperature Pulse Rate 72 72 132 H Respiratory Rate 18 18 Blood Pressure Pulse Oximetry Oxygen Delivery Fraction of Inspired Oxygen 07/07/24 22:00 07/07/24 22:00 07/07/24 22:00 Temperature 98.7 F Pulse Rate 124 H 124 H 124 H Respiratory Rate 18 18 Blood Pressure 120/63 Pulse Oximetry 96 Oxygen Delivery Fraction of Inspired Oxygen 07/07/24 22:00 07/07/24 22:00 07/07/24 23:46 Temperature Pulse Rate 124 H 124 H 116 H Respiratory Rate 18 Blood Pressure 120/63 Pulse Oximetry 95 Oxygen Delivery Mechanical Ventilation Fraction of Inspired Oxygen 40 07/08/24 00:00 07/08/24 00:00 07/08/24 00:00 Temperature Pulse Rate 123 H 123 H 123 H Respiratory Rate 18 18 Blood Pressure 105/49 L Pulse Oximetry Oxygen Delivery Fraction of Inspired Oxygen 07/08/24 00:00 07/08/24 00:00 07/08/24 00:00 Temperature 99.3 F Pulse Rate 123 H Respiratory Rate 18 Blood Pressure 105/49 L Pulse Oximetry 96 Oxygen Delivery Mechanical Ventilation Fraction of Inspired Oxygen 40 40 07/08/24 00:00 07/08/24 00:45 07/08/24 00:45 Temperature Pulse Rate 123 H 69 69 Respiratory Rate 18 18 Blood Pressure Pulse Oximetry Oxygen Delivery Fraction of Inspired Oxygen 07/08/24 02:00 07/08/24 02:00 07/08/24 02:00 Temperature 99.0 F Pulse Rate 65 65 65 Respiratory Rate 18 Blood Pressure 106/52 L 105/62 Pulse Oximetry 96 Oxygen Delivery Fraction of Inspired Oxygen 07/08/24 02:00 07/08/24 02:00 07/08/24 02:08 Temperature Pulse Rate 65 65 65 Respiratory Rate 18 18 18 Blood Pressure Pulse Oximetry Oxygen Delivery Fraction of Inspired Oxygen 07/08/24 02:09 07/08/24 02:15 07/08/24 04:00 Temperature Pulse Rate 64 66 70 Respiratory Rate 18 Blood Pressure 113/54 L Pulse Oximetry 95 Oxygen Delivery Mechanical Ventilation Fraction of Inspired Oxygen 40 07/08/24 04:00 07/08/24 04:00 07/08/24 04:00 Temperature Pulse Rate 70 70 Respiratory Rate 18 18 Blood Pressure Pulse Oximetry Oxygen Delivery Fraction of Inspired Oxygen 40 07/08/24 04:00 07/08/24 04:00 07/08/24 04:00 Temperature 99.2 F Pulse Rate 70 69 Respiratory Rate 18 Blood Pressure 113/54 L Pulse Oximetry 93 Oxygen Delivery Mechanical Ventilation Fraction of Inspired Oxygen 40 07/08/24 05:42 07/08/24 05:50 07/08/24 05:50 Temperature Pulse Rate 73 75 75 Respiratory Rate Blood Pressure 109/50 L 109/50 L Pulse Oximetry 97 Oxygen Delivery Mechanical Ventilation Fraction of Inspired Oxygen 40 07/08/24 06:00 07/08/24 06:00 07/08/24 06:00 Temperature Pulse Rate 77 77 77 Respiratory Rate 18 18 Blood Pressure 94/52 L Pulse Oximetry Oxygen Delivery Fraction of Inspired Oxygen 07/08/24 06:00 07/08/24 06:00 07/08/24 08:00 Temperature 99.3 F 98.2 F Pulse Rate 77 77 81 Respiratory Rate 18 18 Blood Pressure 94/52 L 98/52 L Pulse Oximetry 97 98 Oxygen Delivery Fraction of Inspired Oxygen 07/08/24 08:00 07/08/24 08:00 07/08/24 08:00 Temperature Pulse Rate 81 81 81 Respiratory Rate 18 18 Blood Pressure 98/52 L Pulse Oximetry Oxygen Delivery Fraction of Inspired Oxygen 07/08/24 08:00 07/08/24 08:19 07/08/24 08:31 Temperature Pulse Rate 80 81 Respiratory Rate 18 18 Blood Pressure Pulse Oximetry Oxygen Delivery Fraction of Inspired Oxygen 40 07/08/24 08:43 07/08/24 10:00 07/08/24 10:00 Temperature 99.2 F Pulse Rate 86 76 76 Respiratory Rate 18 18 Blood Pressure 109/58 L Pulse Oximetry 99 100 Oxygen Delivery Mechanical Ventilation Fraction of Inspired Oxygen 40 07/08/24 10:00 07/08/24 10:00 07/08/24 10:00 Temperature Pulse Rate 76 76 76 Respiratory Rate 18 Blood Pressure 109/58 L Pulse Oximetry Oxygen Delivery Fraction of Inspired Oxygen 07/08/24 11:32 07/08/24 11:32 07/08/24 11:35 Temperature Pulse Rate 73 74 82 Respiratory Rate 15 18 Blood Pressure Pulse Oximetry 97 Oxygen Delivery Mechanical Ventilation Fraction of Inspired Oxygen 40 Intake/Output Intake/Output: Intake & Output 07/05/24 07/06/24 07/07/24 07/08/24 23:59 23:59 23:59 23:59 Intake Total 2530.0 2322.3 2150.4 1359.7 Output Total 600 1150 1250 700 Balance 1930.0 1172.3 900.4 659.7 Meds/Results Medications: Active Medications Generic Name Dose Route Start Last Admin Trade Name Freq PRN Reason Stop Dose Admin Albuterol/Ipratropium 3 ml 06/29/24 02:00 07/08/24 08:13 Ipratropium 0.5 Mg/Albuterol Sulfate 2.5 Mg Ampul.Neb 3 Ml INHALATION 3 ml Q6HRT BARBARA Administration Aspirin 81 mg 07/01/24 08:00 07/08/24 08:54 Aspirin 81 Mg Chewable Tablet PO 81 mg DAILY@0800 BARBARA Administration Atorvastatin Calcium 40 mg 06/29/24 09:00 07/08/24 08:54 Atorvastatin 40 Mg Tablet PO 40 mg DAILY BARBARA Administration Cyanocobalamin 1,000 mcg 07/07/24 12:00 07/07/24 13:35 Cyanocobalamin Inj 1,000 Mcg/Ml Vial IM 07/14/24 09:01 1,000 mcg WEEKLY BARBARA Administration Dextrose 12.5 gm 06/29/24 08:08 Dextrose 50% 25 Gm/50 Ml Syringe IV PUSH PRN PRN Hypoglycemia Protocol Glucagon 1 mg 06/29/24 08:08 Glucagon For Inj 1 Mg Vial IM PRN PRN Hypoglycemia Protocol Glucose 15 gm 06/29/24 08:08 Glucose Oral Gel 15 Gm Of Glucse In 37.5 Gm Tube PO PRN PRN Hypoglycemia Protocol Heparin Sodium (Porcine) 5,000 units 07/07/24 11:24 Heparin Sodium 5,000 Units/Ml Vial IV PUSH PRN PRN aPTT less than 55 seconds Heparin Sodium (Porcine) 2,500 units 07/07/24 11:24 Heparin Sodium 5,000 Units/Ml Vial IV PUSH PRN PRN aPTT 55 - 70 seconds Hydralazine HCl 10 mg 07/06/24 16:42 07/06/24 17:03 Hydralazine Hcl 20 Mg/Ml Vial IV PUSH 10 mg Q4H PRN Administration Blood Pressure - High Dextrose 1,000 mls @ 100 mls/hr 06/29/24 08:08 Dextrose 5% 1,000 Ml IVPB PRN PRN Hypoglycemia Protocol Fentanyl Citrate 2,500 mcg in 250 mls @ 5 mls/hr 07/06/24 17:55 07/08/24 11:32 Fentanyl 2,500 Mcg/Ns 250 Ml IV CONT 50 mcg/hr .Q50H BARBARA 5 mls/hr Titration Protocol 50 MCG/HR Midazolam HCl 100 mg in 100 mls @ 2 mls/hr 07/06/24 17:55 07/08/24 11:32 Versed 100 Mg/Ns 100 Ml IV CONT 2 mg/hr .Q50H BARBARA 2 mls/hr Titration Protocol 2 MG/HR Heparin Sodium/Dextrose 25,000 units in 250 mls @ 6 mls/hr 07/07/24 11:25 07/08/24 10:27 Heparin Sodium/D5w 100 Units/Ml IV CONT 600 units/hr .Q24H BARBARA 6 mls/hr Titration Protocol 600 UNITS/HR Amiodarone HCl/Dextrose 360 mg in 200 mls @ 16.667 mls/hr 07/07/24 18:00 07/08/24 10:00 Nexterone 360 Mg/D5w 200 Ml IV CONT 07/08/24 17:59 0.5 mg/min .Q12H BARBARA 16.67 mls/hr Infusion Protocol 0.5 MG/MIN Cefepime HCl 1 gm in 50 mls @ 100 mls/hr 07/08/24 11:00 07/08/24 11:30 Maxipime 1 Gm/Ns 50 Ml IVPB 100 mls/hr Q12HR BARBARA Administration Vancomycin HCl 1,000 mg in 250 mls @ 250 mls/hr 07/08/24 12:00 Vancomycin 1,000 Mg/Ns 250 Ml IVPB 07/08/24 12:59 ONCE ONE Insulin Aspart 3 - 6 units 06/29/24 12:00 07/08/24 05:55 Insulin Aspart (*Bkc) 100 Units/Ml SUB-Q Not Given Q6HR [facility] Protocol Insulin Glargine 8 units 07/06/24 09:00 07/08/24 08:54 Insulin Glargine (*Bkc) 100 Units/Ml SUB-Q 8 units DAILY BARBARA Administration Levothyroxine Sodium 50 mcg 06/30/24 06:30 07/08/24 05:55 Levothyroxine Sodium 50 Mcg Tablet FEED TUBE 50 mcg DAILY@0630 BARBARA Administration Metoprolol Tartrate 25 mg 07/07/24 21:00 07/07/24 21:46 Metoprolol Tartrate 25 Mg Tablet PO 25 mg Q12HR BARBARA Administration Multi-Ingred Cream/Lotion/Oil/Oint 1 applic 06/29/24 09:00 07/08/24 08:54 Mineral Oil/White Petrolatum Ointment EACH EYE 1 applic Q12HR BARBARA Administration Pantoprazole Sodium 40 mg 07/06/24 21:00 07/08/24 08:54 Pantoprazole Sodium Iv 40 Mg Vial IV PUSH 40 mg Q12HR BARBARA Administration Sodium Chloride 10 ml 06/29/24 14:00 07/08/24 05:55 Central Line Flush IV PUSH 10 ml Q8HR BARBARA Administration Sodium Chloride 10 ml 06/29/24 12:40 Central Line Flush IV PUSH PRN PRN with TPN bag changes Sodium Chloride 20 ml 06/29/24 12:40 Central Line Flush IV PUSH PRN PRN after blood draws Vancomycin HCl 1 each 07/08/24 10:48 Vancomycin For Acute Kidney Injury IVPB PRN PRN Vancomycin Protocol Radiology Results: ITS Impressions Abdomen X-Ray 06/28/24 20:03 IMPRESSION: Nasogastric tube in good position and ready for immediate use. Abdomen Ultrasound 07/03/24 14:12 IMPRESSION: 1. Normal right upper quadrant ultrasound status post cholecystectomy. Renal Ultrasound 07/06/24 08:30 IMPRESSION: 1. No hydronephrosis in either kidney. Chest X-Ray 07/08/24 06:09 Impression: COPD with bibasilar scarring. Worsening haziness left lung base. Correlate for developing pneumonia or asymmetric pulmonary edema. Support tubes, as above. Head CT 07/08/24 10:08 IMPRESSION: 1. No acute intracranial process. 2. 8 mm calcified extra-axial mass overlying the left parietal lobe most consistent with a meningioma. Labs Labs: Laboratory Results - last 24 hr 07/05/24 07/07/24 07/07/24 16:40 11:35 18:13 WBC 13.0 H RBC 2.77 L Hgb 7.9 L Hct 24.5 L MCV 88.4 MCH 28.5 MCHC 32.2 RDW 18.0 H Plt Count 217 MPV 11.2 H Immature Gran % (Auto) 0.6 H Neut % (Auto) 76.8 H Lymph % (Auto) 10.2 L [place] % (Auto) 11.9 H Eos % (Auto) 0.3 Baso % (Auto) 0.2 Lymph # (Auto) 1.33 [place] # (Auto) 1.6 H Eos # (Auto) 0.0 Baso # (Auto) 0.0 Abs Immat Gran (auto) 0.08 H Absolute Neuts (auto) 10.0 H Absolute Nucleated RBC 0.050 H Nucleated RBC % 0.4 H Platelet Estimate Hypochromasia Poikilocytosis Anisocytosis Schistocytes PT 15.9 H INR 1.2 APTT 27.7 Puncture Site ABG pH ABG pCO2 ABG pO2 ABG PO2/FiO2 Ratio ABG HCO3 ABG O2 Saturation ABG O2 Content ABG Base Excess A-a Gradient Oxyhemoglobin Carboxyhemoglobin Methemoglobin Reduced Hemoglobin Total Hemoglobin O2 Delivery Device O2 Liters/Min Minute Volume Vent Rate Vent Mode FiO2 Tidal Volume PEEP Peak Inspir Pressure Pressure Support Sodium Potassium Chloride Carbon Dioxide Anion Gap BUN Creatinine Estim Creat Clear Calc Estimated GFR Glucose POC Capillary Glucose 205 H Calcium Phosphorus Magnesium Total Bilirubin AST ALT Alkaline Phosphatase Total Protein Albumin Urine Myoglobin <1 07/07/24 07/07/24 07/08/24 18:14 23:49 01:01 WBC RBC Hgb Hct MCV MCH MCHC RDW Plt Count MPV Immature Gran % (Auto) Neut % (Auto) Lymph % (Auto) [place] % (Auto) Eos % (Auto) Baso % (Auto) Lymph # (Auto) [place] # (Auto) Eos # (Auto) Baso # (Auto) Abs Immat Gran (auto) Absolute Neuts (auto) Absolute Nucleated RBC Nucleated RBC % Platelet Estimate Hypochromasia Poikilocytosis Anisocytosis Schistocytes PT INR APTT > 200.0 H* > 200.0 H* Puncture Site ABG pH ABG pCO2 ABG pO2 ABG PO2/FiO2 Ratio ABG HCO3 ABG O2 Saturation ABG O2 Content ABG Base Excess A-a Gradient Oxyhemoglobin Carboxyhemoglobin Methemoglobin Reduced Hemoglobin Total Hemoglobin O2 Delivery Device O2 Liters/Min Minute Volume Vent Rate Vent Mode FiO2 Tidal Volume PEEP Peak Inspir Pressure Pressure Support Sodium Potassium Chloride Carbon Dioxide Anion Gap BUN Creatinine Estim Creat Clear Calc Estimated GFR Glucose POC Capillary Glucose 201 H Calcium Phosphorus Magnesium Total Bilirubin AST ALT Alkaline Phosphatase Total Protein Albumin Urine Myoglobin 07/08/24 07/08/24 07/08/24 04:45 04:54 09:47 WBC 20.5 H RBC 2.94 L Hgb 8.5 L Hct 26.1 L MCV 88.8 MCH 28.9 MCHC 32.6 RDW 18.3 H Plt Count 248 MPV 11.7 H Immature Gran % (Auto) 0.8 H Neut % (Auto) 82.8 H Lymph % (Auto) 6.4 L [place] % (Auto) 9.1 H Eos % (Auto) 0.8 Baso % (Auto) 0.1 L Lymph # (Auto) 1.31 [place] # (Auto) 1.9 H Eos # (Auto) 0.2 Baso # (Auto) 0.0 Abs Immat Gran (auto) 0.17 H Absolute Neuts (auto) 17.0 H Absolute Nucleated RBC 0.060 H Nucleated RBC % 0.3 H Platelet Estimate Adequate Hypochromasia 1+ Poikilocytosis 1+ Anisocytosis 1+ Schistocytes None seen PT INR APTT 111.1 H Puncture Site Right radial ABG pH 7.452 H ABG pCO2 38.4 ABG pO2 66.3 L ABG PO2/FiO2 Ratio 1.66 ABG HCO3 26.2 H ABG O2 Saturation 94.0 L ABG O2 Content 11.6 L ABG Base Excess 2.2 A-a Gradient 174.7 Oxyhemoglobin 90.7 Carboxyhemoglobin 0.5 Methemoglobin 0.3 Reduced Hemoglobin 8.5 H Total Hemoglobin 9.0 L O2 Delivery Device Ventilator O2 Liters/Min Not Reportable Minute Volume Not Reportable Vent Rate 18 Vent Mode Cmv FiO2 40 Tidal Volume 480 PEEP 5 Peak Inspir Pressure Not Reportable Pressure Support Not Reportable Sodium 146 H Potassium 3.3 L Chloride 105 Carbon Dioxide 30 Anion Gap 11 BUN 116 H Creatinine 1.51 H Estim Creat Clear Calc 26 Estimated GFR 40 L Glucose 169 H POC Capillary Glucose Calcium 8.7 Phosphorus 3.7 Magnesium 2.7 H Total Bilirubin 0.4 AST 41 H ALT 46 H Alkaline Phosphatase 91 Total Protein 6.0 L Albumin 3.6 Urine Myoglobin
[2024-07-08 11:59] LABS: Glucose Point of Care 160 mg/dl (65-105)
[2024-07-08] MEDS: VANCOMYCIN 1,000 MG/NS 250 ML 1,000 MG/250 ML BAG 250 MG IVPB (11:59)
--- NOTE | 2024-07-08 12:00 | P.PNNP_ITS ---
Progress Note: A&P Assessment and Plan (1) RASHEL (acute kidney injury): Code(s): N17.9 - Acute kidney failure, unspecified Status: Acute Assessment and Plan: * slow improvement * as noted by labs (since 07/05) * etiology not clear but suspicion falls on: * possibly due to relative hypotension - noted systolic BP in the high 80s (on 07/04) * intravascular volume depletion(?) * other(?) * reasonable urine output noted * evaluation to date noted: * normal renal ultrasound * urine electrolytes slightly prerenal * rare urine eosinophils * CPK mildly elevated - follow trend * moderate proteinuria * s/p IV albumin (on 07/06) for volume expansion * s/p trial IVF (NS for a total of 1L) on 07/07 * BUN elevated: * suspect due to steroid use * possibly catabolic as well(?) * no evidence of GI bleed * follow trend of repeat labs and UOP (2) Hyperkalemia: Code(s): E87.5 - Hyperkalemia Status: Acute Assessment and Plan: * stable at this time (if now low) * seemed to start ~ 07/02/24 by lab trend * off K+ supplements * no other culprit medications noted * evaluation to date noted: * renal ultrasound without obstruction * renin and aldosterone levels pending * TSH okay * cortisol lowish (was getting steroids); consider stim test after recheck * CPK mildly elevated * continue medical management as needed * #1 complicates evaluation * follow repeat K+ levels (3) Acute on chronic respiratory failure with hypoxia and hypercapnia: Code(s): J96.21 - Acute and chronic respiratory failure with hypoxia; J96.22 - Acute and chronic respiratory failure with hypercapnia Status: Acute Assessment and Plan: * presumably due to COPD exacerbation * complicated by known history of chronic hypoxic/hypercapnic respiratory failure and CHERYL * on ventilator support * on antibiotics, bronchodilators, and steroids * weaned off steroids * ventilator weaning as tolerated (4) Acute exacerbation of chronic obstructive pulmonary disease: Code(s): J44.1 - Chronic obstructive pulmonary disease with (acute) exacerbation Status: Acute Assessment and Plan: * presumed etiology of #3 * continue current therapy (5) Elevated troponin: Code(s): R77.8 - Other specified abnormalities of plasma proteins Status: Acute Assessment and Plan: * felt to be demand ischemia from acute respiratory failure * EKG noted * Cardiology recommendations noted * recent Echo noted (on 06/29): * left ventricular systolic function appears preserved * right ventricle is normal in size and systolic function. * small amount of pericardial effusion with no evidence of cardiac tamponade * ischemic evaluation when more stable (6) Atrial fibrillation with RVR: Code(s): I48.91 - Unspecified atrial fibrillation Status: Acute Assessment and Plan: * SVT noted on evening of 07.06 * s/p IV andenosine with underlying rhythm noted to be AFib RVR * converted to normal sinus rhythm with IV metoprolol x 1 * on 07/07, with weaning of sedation, patient went to AFib RVR again * now on oral metoprolol and anticoagulation (heparin gtt) * on amiodarone gtt as well * Cardiology following (7) Anemia: Code(s): D64.9 - Anemia, unspecified Status: Acute Assessment and Plan: * due to RASHEL and acute illness * however, hemooccult positive * anemia studies without iron deficiency * normal folate * low B12 noted -- IM B12 given * on PPI * GI recommendations noted * follow trend of H/H (8) Elevated LFTs: Code(s): R79.89 - Other specified abnormal findings of blood chemistry Status: Acute Assessment and Plan: * noted on testing since 07/03 * RUQ u/s was normal - status post cholecystectomy * hepatitis panel normal * improving - follow trend Will continue to follow. L Subjective Date/time seen: 07/08/24 12:00 Interval history: Follow-up for acute kidney injury/acute renal failure and intermittent hyperkalemia. Remains intubated/sedated and on mechanical ventilation; atrial fibrillation appears rate controlled with amiodarone gtt and remains on heparin gtt for this issue as well; renal function/creatinine slowly improving with reasonable urine output although BUN remains elevated; otherwise hemodynamically stable at the time of my visit. Exam 2 Narrative: General: elderly but WD/WN female intubated/sedated on mechanical ventilation Heart: normal S1 and S2; no rub Lungs: coarse breath sounds Abdomen: soft, nontender, nondistended, decreased bowel sounds Extremities: no cyanosis or clubbing; no edema Skin: no rash Objective Data Vital Signs Vital Signs: Vital Signs Temp Pulse Resp BP Pulse Ox O2 Del Method FiO2 07/08/24 12:00 72 117/66 Mechanical Ventilation 40 07/08/24 12:00 71 14 07/08/24 12:00 99.3 F 72 20 102/47 L 96 07/08/24 11:35 82 97 Mechanical Ventilation 40 07/08/24 11:32 74 18 07/08/24 11:32 73 15 07/08/24 10:00 76 07/08/24 10:00 76 109/58 L 07/08/24 10:00 76 18 07/08/24 10:00 76 18 07/08/24 10:00 99.2 F 76 18 109/58 L 100 07/08/24 08:43 86 99 Mechanical Ventilation 40 07/08/24 08:31 81 18 07/08/24 08:19 80 18 07/08/24 08:00 72 18 98 Mechanical Ventilation 40 07/08/24 08:00 40 07/08/24 08:00 81 98/52 L 07/08/24 08:00 81 18 07/08/24 08:00 81 18 07/08/24 08:00 98.2 F 81 18 98/52 L 98 07/08/24 06:00 77 07/08/24 06:00 99.3 F 77 18 94/52 L 97 07/08/24 06:00 77 94/52 L 07/08/24 06:00 77 18 07/08/24 06:00 77 18 07/08/24 05:50 75 109/50 L 07/08/24 05:50 75 109/50 L 07/08/24 05:42 73 97 Mechanical Ventilation 40 07/08/24 04:00 69 07/08/24 04:00 Mechanical Ventilation 40 07/08/24 04:00 99.2 F 70 18 113/54 L 93 07/08/24 04:00 40 07/08/24 04:00 70 18 07/08/24 04:00 70 18 07/08/24 04:00 70 113/54 L 07/08/24 02:15 66 18 07/08/24 02:09 64 95 Mechanical Ventilation 40 07/08/24 02:08 65 18 07/08/24 02:00 65 18 07/08/24 02:00 65 18 07/08/24 02:00 65 105/62 07/08/24 02:00 65 07/08/24 02:00 99.0 F 65 18 106/52 L 96 07/08/24 00:45 69 18 07/08/24 00:45 69 18 07/08/24 00:00 123 H 07/08/24 00:00 Mechanical Ventilation 40 07/08/24 00:00 99.3 F 123 H 18 105/49 L 96 07/08/24 00:00 40 07/08/24 00:00 123 H 18 07/08/24 00:00 123 H 105/49 L 07/08/24 00:00 123 H 18 07/07/24 23:46 116 H 95 Mechanical Ventilation 40 07/07/24 22:00 124 H 18 07/07/24 22:00 124 H 120/63 07/07/24 22:00 124 H 18 07/07/24 22:00 98.7 F 124 H 18 120/63 96 07/07/24 22:00 124 H 07/07/24 21:46 132 H 07/07/24 21:00 72 18 07/07/24 21:00 72 18 07/07/24 20:56 72 18 07/07/24 20:48 73 18 07/07/24 20:45 72 96 Mechanical Ventilation 40 07/07/24 20:00 72 07/07/24 20:00 Mechanical Ventilation 40 07/07/24 20:00 71 110/56 L 07/07/24 20:00 71 18 07/07/24 20:00 71 18 07/07/24 20:00 40 07/07/24 20:00 98.6 F 71 18 110/56 L 97 07/07/24 18:00 98.7 F 65 18 95/47 L 97 07/07/24 18:00 65 07/07/24 18:00 65 18 07/07/24 18:00 65 18 07/07/24 17:23 62 107/51 L 07/07/24 16:18 62 98 Mechanical Ventilation 40 Intake/Output Intake/Output: Intake & Output 07/05/24 07/06/24 07/07/24 07/08/24 23:59 23:59 23:59 23:59 Intake Total 2530.0 2322.3 2150.4 1764.8 Output Total 600 1150 1250 700 Balance 1930.0 1172.3 900.4 1064.8 Meds/Results Medications: Active Medications Generic Name Dose Route Start Last Admin Trade Name Freq PRN Reason Stop Dose Admin Albuterol/Ipratropium 3 ml 06/29/24 02:00 07/08/24 13:54 Ipratropium 0.5 Mg/Albuterol Sulfate 2.5 Mg Ampul.Neb 3 Ml INHALATION 3 ml Q6HRT BARBARA Administration Aspirin 81 mg 07/01/24 08:00 07/08/24 08:54 Aspirin 81 Mg Chewable Tablet PO 81 mg DAILY@0800 BARBARA Administration Atorvastatin Calcium 40 mg 06/29/24 09:00 07/08/24 08:54 Atorvastatin 40 Mg Tablet PO 40 mg DAILY BARBARA Administration Cyanocobalamin 1,000 mcg 07/07/24 12:00 07/07/24 13:35 Cyanocobalamin Inj 1,000 Mcg/Ml Vial IM 07/14/24 09:01 1,000 mcg WEEKLY BARBARA Administration Dextrose 12.5 gm 06/29/24 08:08 Dextrose 50% 25 Gm/50 Ml Syringe IV PUSH PRN PRN Hypoglycemia Protocol Glucagon 1 mg 06/29/24 08:08 Glucagon For Inj 1 Mg Vial IM PRN PRN Hypoglycemia Protocol Glucose 15 gm 06/29/24 08:08 Glucose Oral Gel 15 Gm Of Glucse In 37.5 Gm Tube PO PRN PRN Hypoglycemia Protocol Heparin Sodium (Porcine) 5,000 units 07/07/24 11:24 Heparin Sodium 5,000 Units/Ml Vial IV PUSH PRN PRN aPTT less than 55 seconds Heparin Sodium (Porcine) 2,500 units 07/07/24 11:24 Heparin Sodium 5,000 Units/Ml Vial IV PUSH PRN PRN aPTT 55 - 70 seconds Hydralazine HCl 10 mg 07/06/24 16:42 07/06/24 17:03 Hydralazine Hcl 20 Mg/Ml Vial IV PUSH 10 mg Q4H PRN Administration Blood Pressure - High Dextrose 1,000 mls @ 100 mls/hr 06/29/24 08:08 Dextrose 5% 1,000 Ml IVPB PRN PRN Hypoglycemia Protocol Fentanyl Citrate 2,500 mcg in 250 mls @ 5 mls/hr 07/06/24 17:55 07/08/24 14:00 Fentanyl 2,500 Mcg/Ns 250 Ml IV CONT 50 mcg/hr .Q50H BARBARA 5 mls/hr Titration Protocol 50 MCG/HR Midazolam HCl 100 mg in 100 mls @ 2 mls/hr 07/06/24 17:55 07/08/24 14:00 Versed 100 Mg/Ns 100 Ml IV CONT 2 mg/hr .Q50H BARBARA 2 mls/hr Titration Protocol 2 MG/HR Heparin Sodium/Dextrose 25,000 units in 250 mls @ 6 mls/hr 07/07/24 11:25 07/08/24 14:00 Heparin Sodium/D5w 100 Units/Ml IV CONT 600 units/hr .Q24H BARBARA 6 mls/hr Titration Protocol 600 UNITS/HR Amiodarone HCl/Dextrose 360 mg in 200 mls @ 16.667 mls/hr 07/07/24 18:00 07/08/24 14:00 Nexterone 360 Mg/D5w 200 Ml IV CONT 07/08/24 17:59 0.5 mg/min .Q12H BARBARA 16.67 mls/hr Infusion Protocol 0.5 MG/MIN Cefepime HCl 1 gm in 50 mls @ 100 mls/hr 07/08/24 11:00 07/08/24 13:34 Maxipime 1 Gm/Ns 50 Ml IVPB Infused Q12HR BARBARA Infusion Insulin Aspart 3 - 6 units 06/29/24 12:00 07/08/24 11:57 Insulin Aspart (*Bkc) 100 Units/Ml SUB-Q Not Given Q6HR [facility] Protocol Insulin Glargine 8 units 07/06/24 09:00 07/08/24 08:54 Insulin Glargine (*Bkc) 100 Units/Ml SUB-Q 8 units DAILY BARBARA Administration Levothyroxine Sodium 50 mcg 06/30/24 06:30 07/08/24 05:55 Levothyroxine Sodium 50 Mcg Tablet FEED TUBE 50 mcg DAILY@0630 BARBARA Administration Metoprolol Tartrate 25 mg 07/07/24 21:00 07/07/24 21:46 Metoprolol Tartrate 25 Mg Tablet PO 25 mg Q12HR BARBARA Administration Multi-Ingred Cream/Lotion/Oil/Oint 1 applic 06/29/24 09:00 07/08/24 08:54 Mineral Oil/White Petrolatum Ointment EACH EYE 1 applic Q12HR BARBARA Administration Pantoprazole Sodium 40 mg 07/06/24 21:00 07/08/24 08:54 Pantoprazole Sodium Iv 40 Mg Vial IV PUSH 40 mg Q12HR BARBARA Administration Sodium Chloride 10 ml 06/29/24 14:00 07/08/24 15:17 Central Line Flush IV PUSH 10 ml Q8HR BARBARA Administration Sodium Chloride 10 ml 06/29/24 12:40 Central Line Flush IV PUSH PRN PRN with TPN bag changes Sodium Chloride 20 ml 06/29/24 12:40 Central Line Flush IV PUSH PRN PRN after blood draws Vancomycin HCl 1 each 07/08/24 10:48 Vancomycin For Acute Kidney Injury IVPB PRN PRN Vancomycin Protocol Radiology Results: ITS Impressions Abdomen X-Ray 06/28/24 20:03 IMPRESSION: Nasogastric tube in good position and ready for immediate use. Abdomen Ultrasound 07/03/24 14:12 IMPRESSION: 1. Normal right upper quadrant ultrasound status post cholecystectomy. Renal Ultrasound 07/06/24 08:30 IMPRESSION: 1. No hydronephrosis in either kidney. Chest X-Ray 07/08/24 06:09 Impression: COPD with bibasilar scarring. Worsening haziness left lung base. Correlate for developing pneumonia or asymmetric pulmonary edema. Support tubes, as above. Head CT 07/08/24 10:08 IMPRESSION: 1. No acute intracranial process. 2. 8 mm calcified extra-axial mass overlying the left parietal lobe most consistent with a meningioma. Labs Labs: Laboratory Tests 07/08/24 04:54 07/08/24 04:54 Calcium 8.7 Phosphorus 3.7 Magnesium 2.7 H Total Bilirubin 0.4 AST 41 H ALT 46 H Alkaline Phosphatase 91 Total Protein 6.0 L Albumin 3.6
[2024-07-08 12:28] LABS: Influenza A QL RT-PCR Negative (Negative); Influenza B QL RT-PCR Negative (Negative); RSV RNA, RT-PCR Negative (Negative); SARS-CoV-2 RNA PCR Negative (Negative)
--- NOTE | 2024-07-08 13:03 | WPDINTPN ---
Progress Note: A&P Assessment and Plan (1) Atrial fibrillation with RVR: Code(s): I48.91 - Unspecified atrial fibrillation Status: Acute Assessment and Plan: 07/06 evening: Patient went into SVT, status post tenderness and 6 mg and 12 mg, underlying rhythm was AFib RVR, converted to normal sinus rhythm with IV metoprolol x1 and increasing her sedation. Patient remained in sinus rhythm also the morning of 07/07/2024. 07/07: Started weaning her sedation again today, patient went to AFib RVR, -will start heparin infusion, metoprolol per tube and increase her sedation. -07/06; TSH level within normal limits, troponin level with no change since admission -EKG showed AFib RVR, discussed with cardiology, -continue amiodarone infusion -add metoprolol (2) Acute on chronic respiratory failure with hypoxia and hypercapnia: Code(s): J96.21 - Acute and chronic respiratory failure with hypoxia; J96.22 - Acute and chronic respiratory failure with hypercapnia Status: Acute Assessment and Plan: Acute on chronic respiratory failure secondary to severe COPD exacerbation. Community-acquired pneumonia although chest x-ray is not suggestive and patient is low procalcitonin level. WBC elevated MRSA screen negative 06/28: Blood cultures negative x2 -status post says 8 days of ceftriaxone -status post 5 days of doxycycline -DC vancomycin (06/29), MRSA screen negative 07/02: Patient did have high peak pressures, after switching her from propofol to fentanyl and Versed due to elevated triglycerides. She was started on Nimbex infusion which improved her oxygenation, respiratory status and improved air entry. 07/03: Remains on Nimbex, adequate air entry, peak pressures are within normal limits continue fentanyl Versed infusion for now, will start weaning Nimbex, will maintain RASS of 0 to -2 on sedation meds 07/04: Chest x-ray, ABGs reviewed, ventilator adjusted, increased respiratory rate 22 and increased FiO2 to 45%, maintain O2 sats greater than 90%. Have also asked the bedside RN to start weaning the Nimbex to off -07/05: Patient has prolonged expiratory phase, decrease respiratory rate, increased I to E ratio, increased tidal volume. Will repeat ABGs -Continue bronchodilators, -off Solu-Medrol -07/05 and 07/06: off all sedation, will try to place patient on SBT when she is more awake. If she requires any kind of sedation will start Precedex infusion. Patient did not tolerate being off on sedation and went into SVT and AFib RVR. Once sedation was placed back on patient converted to sinus rhythm with regular rate. 07/07: Sedation was weaned again this morning, patient was started on Precedex infusion site could place her on a a breathing trial to evaluate for extubation. Patient again went into AFib RVR, sedation was reinstated 07/08: Tolerating mechanical ventilation, ABGs look good, chest x-ray shows worsening haziness in left lung base, likely developing pneumonia. Patient is WBC count has increased to 20,000, will obtain blood cultures, start cefepime and vancomycin of possible ventilator associated pneumonia -will discuss with patient's regarding tracheostomy (3) Acute exacerbation of chronic obstructive pulmonary disease: Code(s): J44.1 - Chronic obstructive pulmonary disease with (acute) exacerbation Status: Acute Assessment and Plan: Continue mechanical ventilation, bronchodilators, antibiotics, steroids (4) Elevated troponin: Code(s): R77.8 - Other specified abnormalities of plasma proteins Status: Acute Assessment and Plan: Patient has elevated troponin likely secondary to demand ischemia from acute respiratory failure. EKG reviewed and does not show any ST elevation. Patient does not have any documented history of coronary disease. Troponins trending down Continue aspirin 81 mg p.o. daily and statin Appreciate cardiology evaluation and recommendation 06/29/2024: Echocardiogram Summary 1. The left ventricle is normal in size with thickened left ventricular rodríguez. The overall left ventricular systolic function appears preserved. Cannot rule out very mild hypokinesis of the apical wall. 2. The right ventricle is normal in size and systolic function. 3. The there is a small amount of pericardial effusion with no echocardiographic evidence of cardiac tamponade. (5) Hypothyroidism: Code(s): E03.9 - Hypothyroidism, unspecified Status: Acute Assessment and Plan: Continue levothyroxine. -07/06: TSH level - within normal limits (6) Electrolyte abnormality: Code(s): E87.8 - Other disorders of electrolyte and fluid balance, not elsewhere classified Status: Acute Assessment and Plan: Potassium levels within normal limits -appreciate Nephrology evaluation and recommendations (7) Elevated LFTs: Code(s): R79.89 - Other specified abnormal findings of blood chemistry Status: Acute Assessment and Plan: Right upper quadrant ultrasound was normal, status post cholecystectomy -hepatitis panel was within normal limit (8) RASHEL (acute kidney injury): Code(s): N17.9 - Acute kidney failure, unspecified Status: Acute Assessment and Plan: Acute kidney injury, likely related to hypotension, intravascular volume depletion, BUN elevated likely related to steroids -nephrology has been consulted and appreciate the evaluation and recommendation -discuss with Nephrology, will start albumin 25% x4 doses since she may be intravascularly depleted -monitor urine output, renal function electrolytes 07/06: Renal ultrasound: No hydronephrosis in either kidney. -urine lytes not reflective of prerenal picture -CKD levels elevated to 813 07/07: Patient may more urine overnight, creatinine trending down. Discuss with Nephrology, will give 1 L IV fluids over 10 hours 07/08: Urine output has improved, creatinine trending down. Low potassium levels will replete due to AFib RVR (9) Hyperglycemia: Code(s): R73.9 - Hyperglycemia, unspecified Status: Acute Assessment and Plan: Hyperglycemia likely related to tube feeds and or steroid -weaning steroid -continue Accu-Cheks and sliding scale insulin, -hold Lantus has tube feeds were off overnight. (10) Anemia: Code(s): D64.9 - Anemia, unspecified Status: Acute Assessment and Plan: Patient dropped her hemoglobin to 8.3 from 10.9 (07/05) -07/06/2024: Stool occult was positive -iron panel did not show any iron deficiency, normal folate level -low vitamin B12 level, will give IM cyanocobalamin weekly x2 doses -continue Protonix to IV q.12 hours -appreciate GI evaluation , no endoscopy recommended at this time -hemoglobin remains stable (11) Encephalopathy: Code(s): G93.40 - Encephalopathy, unspecified Status: Acute Assessment and Plan: Patient opens her eyes but does not follow simple commands, upper extremities are flaccid, pupils are equal and reactive, patient grimaces to pain but does not withdraw to pain stimulus -07/08: stat CT scan of the brain: 1. No acute intracranial process.2. 8 mm calcified extra-axial mass overlying the left parietal lobe most consistent with a meningioma. Will continue to monitor -check ammonia level Plan DVT prophylaxis -Lovenox Stress ulcer prophylaxis -PPI IV q.12 hours Nutrition -tolerating tube feeds Code Status - Full Code Total Critical Care Time - 36 minutes -discussed with Nephrology and Cardiology -will discuss with patient's regarding tracheostomy and PEG tube placement Due to a high probability of clinically significant, life threatening deterioration, the patient required my highest level of preparedness to intervene emergently and I personally spent this critical care time directly and personally managing the patient. This critical care time included obtaining a history; examining the patient; pulse oximetry; ordering and review of studies; arranging urgent treatment with development of a management plan; evaluation of patient's response to treatment; frequent reassessment; and discussions with other providers. It was exclusive of separately billable procedures and treating other patients and teaching time. Please see Assessment and Plan section and the rest of the note for further information on patient assessment and treatment This dictation may have been done utilizing a voice recognition system. Attempts have been made to correct errors. However, there may be uncorrected grammatical, spelling, and recognitions errors present. Subjective Date/time seen: 07/08/24 13:03 Interval history: Reason for consult: COPD exacerbation, acute hypercapnic respiratory failure, NSTEMI with elevated troponin 07/08/2024: Patient seen examined the ICU, remains intubated on CMV mode of ventilation peep of 5, 40% FiO2. Remains on amiodarone infusion, currently in sinus rhythm, rate controlled. Urine output has been adequate, creatinine trending down but BUN remains elevated. Potassium was 3.3 this morning. Remains on heparin infusion for atrial fibrillation. Is afebrile, hemodynamically stable. Tolerating tube feeds, positive bowel movements Patient did open her eyes but did not follow simple commands, upper extremities were flaccid Review of Systems Review of Systems: ROS unobtainable: Yes unobtainable due to endotracheal tube, unobtainable due to medical condition and unobtainable due to mental status Exam Narrative: General: Pt is sedated and intubated and on mechanical ventilation Lungs/Chest: Trachea central, better air entry this morning, no wheezing or rales. Cardiac: Irregularly irregular, tachycardic. No murmurs Circulation: Pedal pulses are intact and symmetrical. Abdomen: Decreased bowel sounds. Obese. Soft. NT. ND. Extremities: No clubbing, cyanosis or edema. Warm : [place] in place Neurologic: Intubated, sedated opens her eyes but does not follow simple commands, grimaces to pain but does not withdraw. Upper extremities were flaccid. Pupils equal and reactive. Objective Data Vital Signs Vital Signs: Vital Signs - 24 hr 07/07/24 14:00 07/07/24 14:00 07/07/24 14:00 Temperature 98.4 F Pulse Rate 118 H 118 H 118 H Respiratory Rate 18 18 Blood Pressure 99/58 L Pulse Oximetry 96 Oxygen Delivery Fraction of Inspired Oxygen 07/07/24 14:00 07/07/24 14:43 07/07/24 14:44 Temperature Pulse Rate 118 H 117 H 117 H Respiratory Rate 18 18 Blood Pressure Pulse Oximetry 96 Oxygen Delivery Mechanical Ventilation Fraction of Inspired Oxygen 40 07/07/24 14:53 07/07/24 15:12 07/07/24 16:00 Temperature Pulse Rate 109 H 121 H 57 L Respiratory Rate 18 Blood Pressure Pulse Oximetry Oxygen Delivery Fraction of Inspired Oxygen 07/07/24 16:00 07/07/24 16:00 07/07/24 16:00 Temperature 98.6 F Pulse Rate 56 L 56 L 57 L Respiratory Rate 18 18 18 Blood Pressure 99/57 L Pulse Oximetry 98 Oxygen Delivery Fraction of Inspired Oxygen 07/07/24 16:00 07/07/24 16:00 07/07/24 16:18 Temperature Pulse Rate 62 Respiratory Rate Blood Pressure Pulse Oximetry 98 Oxygen Delivery Mechanical Ventilation Mechanical Ventilation Fraction of Inspired Oxygen 40 40 40 07/07/24 17:23 07/07/24 18:00 07/07/24 18:00 Temperature Pulse Rate 62 65 65 Respiratory Rate 18 18 Blood Pressure 107/51 L Pulse Oximetry Oxygen Delivery Fraction of Inspired Oxygen 07/07/24 18:00 07/07/24 18:00 07/07/24 20:00 Temperature 98.7 F 98.6 F Pulse Rate 65 65 71 Respiratory Rate 18 18 Blood Pressure 95/47 L 110/56 L Pulse Oximetry 97 97 Oxygen Delivery Fraction of Inspired Oxygen 07/07/24 20:00 07/07/24 20:00 07/07/24 20:00 Temperature Pulse Rate 71 71 Respiratory Rate 18 18 Blood Pressure Pulse Oximetry Oxygen Delivery Fraction of Inspired Oxygen 40 07/07/24 20:00 07/07/24 20:00 07/07/24 20:00 Temperature Pulse Rate 71 72 Respiratory Rate Blood Pressure 110/56 L Pulse Oximetry Oxygen Delivery Mechanical Ventilation Fraction of Inspired Oxygen 40 07/07/24 20:45 07/07/24 20:48 07/07/24 20:56 Temperature Pulse Rate 72 73 72 Respiratory Rate 18 18 Blood Pressure Pulse Oximetry 96 Oxygen Delivery Mechanical Ventilation Fraction of Inspired Oxygen 40 07/07/24 21:00 07/07/24 21:00 07/07/24 21:46 Temperature Pulse Rate 72 72 132 H Respiratory Rate 18 18 Blood Pressure Pulse Oximetry Oxygen Delivery Fraction of Inspired Oxygen 07/07/24 22:00 07/07/24 22:00 07/07/24 22:00 Temperature 98.7 F Pulse Rate 124 H 124 H 124 H Respiratory Rate 18 18 Blood Pressure 120/63 Pulse Oximetry 96 Oxygen Delivery Fraction of Inspired Oxygen 07/07/24 22:00 07/07/24 22:00 07/07/24 23:46 Temperature Pulse Rate 124 H 124 H 116 H Respiratory Rate 18 Blood Pressure 120/63 Pulse Oximetry 95 Oxygen Delivery Mechanical Ventilation Fraction of Inspired Oxygen 40 07/08/24 00:00 07/08/24 00:00 07/08/24 00:00 Temperature Pulse Rate 123 H 123 H 123 H Respiratory Rate 18 18 Blood Pressure 105/49 L Pulse Oximetry Oxygen Delivery Fraction of Inspired Oxygen 07/08/24 00:00 07/08/24 00:00 07/08/24 00:00 Temperature 99.3 F Pulse Rate 123 H Respiratory Rate 18 Blood Pressure 105/49 L Pulse Oximetry 96 Oxygen Delivery Mechanical Ventilation Fraction of Inspired Oxygen 40 40 07/08/24 00:00 07/08/24 00:45 07/08/24 00:45 Temperature Pulse Rate 123 H 69 69 Respiratory Rate 18 18 Blood Pressure Pulse Oximetry Oxygen Delivery Fraction of Inspired Oxygen 07/08/24 02:00 07/08/24 02:00 07/08/24 02:00 Temperature 99.0 F Pulse Rate 65 65 65 Respiratory Rate 18 Blood Pressure 106/52 L 105/62 Pulse Oximetry 96 Oxygen Delivery Fraction of Inspired Oxygen 07/08/24 02:00 07/08/24 02:00 07/08/24 02:08 Temperature Pulse Rate 65 65 65 Respiratory Rate 18 18 18 Blood Pressure Pulse Oximetry Oxygen Delivery Fraction of Inspired Oxygen 07/08/24 02:09 07/08/24 02:15 07/08/24 04:00 Temperature Pulse Rate 64 66 70 Respiratory Rate 18 Blood Pressure 113/54 L Pulse Oximetry 95 Oxygen Delivery Mechanical Ventilation Fraction of Inspired Oxygen 40 07/08/24 04:00 07/08/24 04:00 07/08/24 04:00 Temperature Pulse Rate 70 70 Respiratory Rate 18 18 Blood Pressure Pulse Oximetry Oxygen Delivery Fraction of Inspired Oxygen 40 07/08/24 04:00 07/08/24 04:00 07/08/24 04:00 Temperature 99.2 F Pulse Rate 70 69 Respiratory Rate 18 Blood Pressure 113/54 L Pulse Oximetry 93 Oxygen Delivery Mechanical Ventilation Fraction of Inspired Oxygen 40 07/08/24 05:42 07/08/24 05:50 07/08/24 05:50 Temperature Pulse Rate 73 75 75 Respiratory Rate Blood Pressure 109/50 L 109/50 L Pulse Oximetry 97 Oxygen Delivery Mechanical Ventilation Fraction of Inspired Oxygen 40 07/08/24 06:00 07/08/24 06:00 07/08/24 06:00 Temperature Pulse Rate 77 77 77 Respiratory Rate 18 18 Blood Pressure 94/52 L Pulse Oximetry Oxygen Delivery Fraction of Inspired Oxygen 07/08/24 06:00 07/08/24 06:00 07/08/24 08:00 Temperature 99.3 F 98.2 F Pulse Rate 77 77 81 Respiratory Rate 18 18 Blood Pressure 94/52 L 98/52 L Pulse Oximetry 97 98 Oxygen Delivery Fraction of Inspired Oxygen 07/08/24 08:00 07/08/24 08:00 07/08/24 08:00 Temperature Pulse Rate 81 81 81 Respiratory Rate 18 18 Blood Pressure 98/52 L Pulse Oximetry Oxygen Delivery Fraction of Inspired Oxygen 07/08/24 08:00 07/08/24 08:19 07/08/24 08:31 Temperature Pulse Rate 80 81 Respiratory Rate 18 18 Blood Pressure Pulse Oximetry Oxygen Delivery Fraction of Inspired Oxygen 40 07/08/24 08:43 07/08/24 10:00 07/08/24 10:00 Temperature 99.2 F Pulse Rate 86 76 76 Respiratory Rate 18 18 Blood Pressure 109/58 L Pulse Oximetry 99 100 Oxygen Delivery Mechanical Ventilation Fraction of Inspired Oxygen 40 07/08/24 10:00 07/08/24 10:00 07/08/24 10:00 Temperature Pulse Rate 76 76 76 Respiratory Rate 18 Blood Pressure 109/58 L Pulse Oximetry Oxygen Delivery Fraction of Inspired Oxygen 07/08/24 11:32 07/08/24 11:32 07/08/24 11:35 Temperature Pulse Rate 73 74 82 Respiratory Rate 15 18 Blood Pressure Pulse Oximetry 97 Oxygen Delivery Mechanical Ventilation Fraction of Inspired Oxygen 40 07/08/24 12:00 07/08/24 12:00 07/08/24 12:00 Temperature 99.3 F Pulse Rate 72 71 71 Respiratory Rate 20 14 18 Blood Pressure 102/47 L Pulse Oximetry 96 Oxygen Delivery Fraction of Inspired Oxygen Intake/Output Intake/Output: Intake & Output 07/05/24 07/06/24 07/07/24 07/08/24 23:59 23:59 23:59 23:59 Intake Total 2530.0 2322.3 2150.4 1372.2 Output Total 600 1150 1250 700 Balance 1930.0 1172.3 900.4 672.2 Meds/Results Medications: Active Medications Generic Name Dose Route Start Last Admin Trade Name Freq PRN Reason Stop Dose Admin Albuterol/Ipratropium 3 ml 06/29/24 02:00 07/08/24 08:13 Ipratropium 0.5 Mg/Albuterol Sulfate 2.5 Mg Ampul.Neb 3 Ml INHALATION 3 ml Q6HRT BARBARA Administration Aspirin 81 mg 07/01/24 08:00 07/08/24 08:54 Aspirin 81 Mg Chewable Tablet PO 81 mg DAILY@0800 BARBARA Administration Atorvastatin Calcium 40 mg 06/29/24 09:00 07/08/24 08:54 Atorvastatin 40 Mg Tablet PO 40 mg DAILY BARBARA Administration Cyanocobalamin 1,000 mcg 07/07/24 12:00 07/07/24 13:35 Cyanocobalamin Inj 1,000 Mcg/Ml Vial IM 07/14/24 09:01 1,000 mcg WEEKLY BARBARA Administration Dextrose 12.5 gm 06/29/24 08:08 Dextrose 50% 25 Gm/50 Ml Syringe IV PUSH PRN PRN Hypoglycemia Protocol Glucagon 1 mg 06/29/24 08:08 Glucagon For Inj 1 Mg Vial IM PRN PRN Hypoglycemia Protocol Glucose 15 gm 06/29/24 08:08 Glucose Oral Gel 15 Gm Of Glucse In 37.5 Gm Tube PO PRN PRN Hypoglycemia Protocol Heparin Sodium (Porcine) 5,000 units 07/07/24 11:24 Heparin Sodium 5,000 Units/Ml Vial IV PUSH PRN PRN aPTT less than 55 seconds Heparin Sodium (Porcine) 2,500 units 07/07/24 11:24 Heparin Sodium 5,000 Units/Ml Vial IV PUSH PRN PRN aPTT 55 - 70 seconds Hydralazine HCl 10 mg 07/06/24 16:42 07/06/24 17:03 Hydralazine Hcl 20 Mg/Ml Vial IV PUSH 10 mg Q4H PRN Administration Blood Pressure - High Dextrose 1,000 mls @ 100 mls/hr 06/29/24 08:08 Dextrose 5% 1,000 Ml IVPB PRN PRN Hypoglycemia Protocol Fentanyl Citrate 2,500 mcg in 250 mls @ 5 mls/hr 07/06/24 17:55 07/08/24 12:00 Fentanyl 2,500 Mcg/Ns 250 Ml IV CONT 50 mcg/hr .Q50H BARBARA 5 mls/hr Titration Protocol 50 MCG/HR Midazolam HCl 100 mg in 100 mls @ 2 mls/hr 07/06/24 17:55 07/08/24 12:00 Versed 100 Mg/Ns 100 Ml IV CONT 2 mg/hr .Q50H BARBARA 2 mls/hr Titration Protocol 2 MG/HR Heparin Sodium/Dextrose 25,000 units in 250 mls @ 6 mls/hr 07/07/24 11:25 07/08/24 12:00 Heparin Sodium/D5w 100 Units/Ml IV CONT 600 units/hr .Q24H BARBARA 6 mls/hr Titration Protocol 600 UNITS/HR Amiodarone HCl/Dextrose 360 mg in 200 mls @ 16.667 mls/hr 07/07/24 18:00 07/08/24 10:00 Nexterone 360 Mg/D5w 200 Ml IV CONT 07/08/24 17:59 0.5 mg/min .Q12H BARBARA 16.67 mls/hr Infusion Protocol 0.5 MG/MIN Cefepime HCl 1 gm in 50 mls @ 100 mls/hr 07/08/24 11:00 07/08/24 11:30 Maxipime 1 Gm/Ns 50 Ml IVPB 100 mls/hr Q12HR BARBARA Administration Vancomycin HCl 1,000 mg in 250 mls @ 250 mls/hr 07/08/24 12:00 07/08/24 11:59 Vancomycin 1,000 Mg/Ns 250 Ml IVPB 07/08/24 12:59 250 mls/hr ONCE ONE Administration Insulin Aspart 3 - 6 units 06/29/24 12:00 07/08/24 11:57 Insulin Aspart (*Bkc) 100 Units/Ml SUB-Q Not Given Q6HR [facility] Protocol Insulin Glargine 8 units 07/06/24 09:00 07/08/24 08:54 Insulin Glargine (*Bkc) 100 Units/Ml SUB-Q 8 units DAILY BARBARA Administration Levothyroxine Sodium 50 mcg 06/30/24 06:30 07/08/24 05:55 Levothyroxine Sodium 50 Mcg Tablet FEED TUBE 50 mcg DAILY@0630 BARBARA Administration Metoprolol Tartrate 25 mg 07/07/24 21:00 07/07/24 21:46 Metoprolol Tartrate 25 Mg Tablet PO 25 mg Q12HR BARBARA Administration Multi-Ingred Cream/Lotion/Oil/Oint 1 applic 06/29/24 09:00 07/08/24 08:54 Mineral Oil/White Petrolatum Ointment EACH EYE 1 applic Q12HR BARBARA Administration Pantoprazole Sodium 40 mg 07/06/24 21:00 07/08/24 08:54 Pantoprazole Sodium Iv 40 Mg Vial IV PUSH 40 mg Q12HR BARBARA Administration Sodium Chloride 10 ml 06/29/24 14:00 07/08/24 05:55 Central Line Flush IV PUSH 10 ml Q8HR BARBARA Administration Sodium Chloride 10 ml 06/29/24 12:40 Central Line Flush IV PUSH PRN PRN with TPN bag changes Sodium Chloride 20 ml 06/29/24 12:40 Central Line Flush IV PUSH PRN PRN after blood draws Vancomycin HCl 1 each 07/08/24 10:48 Vancomycin For Acute Kidney Injury IVPB PRN PRN Vancomycin Protocol Radiology Results: ITS Impressions Abdomen X-Ray 06/28/24 20:03 IMPRESSION: Nasogastric tube in good position and ready for immediate use. Abdomen Ultrasound 07/03/24 14:12 IMPRESSION: 1. Normal right upper quadrant ultrasound status post cholecystectomy. Renal Ultrasound 07/06/24 08:30 IMPRESSION: 1. No hydronephrosis in either kidney. Chest X-Ray 07/08/24 06:09 Impression: COPD with bibasilar scarring. Worsening haziness left lung base. Correlate for developing pneumonia or asymmetric pulmonary edema. Support tubes, as above. Head CT 07/08/24 10:08 IMPRESSION: 1. No acute intracranial process. 2. 8 mm calcified extra-axial mass overlying the left parietal lobe most consistent with a meningioma. Labs Labs: Laboratory Results - last 24 hr 07/05/24 07/07/24 07/07/24 16:40 18:13 18:14 WBC RBC Hgb Hct MCV MCH MCHC RDW Plt Count MPV Immature Gran % (Auto) Neut % (Auto) Lymph % (Auto) [place] % (Auto) Eos % (Auto) Baso % (Auto) Lymph # (Auto) [place] # (Auto) Eos # (Auto) Baso # (Auto) Abs Immat Gran (auto) Absolute Neuts (auto) Absolute Nucleated RBC Nucleated RBC % Platelet Estimate Hypochromasia Poikilocytosis Anisocytosis Schistocytes APTT > 200.0 H* Puncture Site ABG pH ABG pCO2 ABG pO2 ABG PO2/FiO2 Ratio ABG HCO3 ABG O2 Saturation ABG O2 Content ABG Base Excess A-a Gradient Oxyhemoglobin Carboxyhemoglobin Methemoglobin Reduced Hemoglobin Total Hemoglobin O2 Delivery Device O2 Liters/Min Minute Volume Vent Rate Vent Mode FiO2 Tidal Volume PEEP Peak Inspir Pressure Pressure Support Sodium Potassium Chloride Carbon Dioxide Anion Gap BUN Creatinine Estim Creat Clear Calc Estimated GFR Glucose POC Capillary Glucose 205 H Calcium Phosphorus Magnesium Total Bilirubin AST ALT Alkaline Phosphatase Total Protein Albumin Urine Myoglobin <1 Influenza A (RT-PCR) Influenza B (RT-PCR) RSV (RT-PCR) SARS-CoV-2 RNA (RT-PCR) 07/07/24 07/08/24 07/08/24 23:49 01:01 04:45 WBC RBC Hgb Hct MCV MCH MCHC RDW Plt Count MPV Immature Gran % (Auto) Neut % (Auto) Lymph % (Auto) [place] % (Auto) Eos % (Auto) Baso % (Auto) Lymph # (Auto) [place] # (Auto) Eos # (Auto) Baso # (Auto) Abs Immat Gran (auto) Absolute Neuts (auto) Absolute Nucleated RBC Nucleated RBC % Platelet Estimate Hypochromasia Poikilocytosis Anisocytosis Schistocytes APTT > 200.0 H* Puncture Site Right radial ABG pH 7.452 H ABG pCO2 38.4 ABG pO2 66.3 L ABG PO2/FiO2 Ratio 1.66 ABG HCO3 26.2 H ABG O2 Saturation 94.0 L ABG O2 Content 11.6 L ABG Base Excess 2.2 A-a Gradient 174.7 Oxyhemoglobin 90.7 Carboxyhemoglobin 0.5 Methemoglobin 0.3 Reduced Hemoglobin 8.5 H Total Hemoglobin 9.0 L O2 Delivery Device Ventilator O2 Liters/Min Not Reportable Minute Volume Not Reportable Vent Rate 18 Vent Mode Cmv FiO2 40 Tidal Volume 480 PEEP 5 Peak Inspir Pressure Not Reportable Pressure Support Not Reportable Sodium Potassium Chloride Carbon Dioxide Anion Gap BUN Creatinine Estim Creat Clear Calc Estimated GFR Glucose POC Capillary Glucose 201 H Calcium Phosphorus Magnesium Total Bilirubin AST ALT Alkaline Phosphatase Total Protein Albumin Urine Myoglobin Influenza A (RT-PCR) Influenza B (RT-PCR) RSV (RT-PCR) SARS-CoV-2 RNA (RT-PCR) 07/08/24 07/08/24 07/08/24 04:54 09:47 11:28 WBC 20.5 H RBC 2.94 L Hgb 8.5 L Hct 26.1 L MCV 88.8 MCH 28.9 MCHC 32.6 RDW 18.3 H Plt Count 248 MPV 11.7 H Immature Gran % (Auto) 0.8 H Neut % (Auto) 82.8 H Lymph % (Auto) 6.4 L [place] % (Auto) 9.1 H Eos % (Auto) 0.8 Baso % (Auto) 0.1 L Lymph # (Auto) 1.31 [place] # (Auto) 1.9 H Eos # (Auto) 0.2 Baso # (Auto) 0.0 Abs Immat Gran (auto) 0.17 H Absolute Neuts (auto) 17.0 H Absolute Nucleated RBC 0.060 H Nucleated RBC % 0.3 H Platelet Estimate Adequate Hypochromasia 1+ Poikilocytosis 1+ Anisocytosis 1+ Schistocytes None seen APTT 111.1 H Puncture Site ABG pH ABG pCO2 ABG pO2 ABG PO2/FiO2 Ratio ABG HCO3 ABG O2 Saturation ABG O2 Content ABG Base Excess A-a Gradient Oxyhemoglobin Carboxyhemoglobin Methemoglobin Reduced Hemoglobin Total Hemoglobin O2 Delivery Device O2 Liters/Min Minute Volume Vent Rate Vent Mode FiO2 Tidal Volume PEEP Peak Inspir Pressure Pressure Support Sodium 146 H Potassium 3.3 L Chloride 105 Carbon Dioxide 30 Anion Gap 11 BUN 116 H Creatinine 1.51 H Estim Creat Clear Calc 26 Estimated GFR 40 L Glucose 169 H POC Capillary Glucose Calcium 8.7 Phosphorus 3.7 Magnesium 2.7 H Total Bilirubin 0.4 AST 41 H ALT 46 H Alkaline Phosphatase 91 Total Protein 6.0 L Albumin 3.6 Urine Myoglobin Influenza A (RT-PCR) Negative Influenza B (RT-PCR) Negative RSV (RT-PCR) Negative SARS-CoV-2 RNA (RT-PCR) Negative 07/08/24 11:48 WBC RBC Hgb Hct MCV MCH MCHC RDW Plt Count MPV Immature Gran % (Auto) Neut % (Auto) Lymph % (Auto) [place] % (Auto) Eos % (Auto) Baso % (Auto) Lymph # (Auto) [place] # (Auto) Eos # (Auto) Baso # (Auto) Abs Immat Gran (auto) Absolute Neuts (auto) Absolute Nucleated RBC Nucleated RBC % Platelet Estimate Hypochromasia Poikilocytosis Anisocytosis Schistocytes APTT Puncture Site ABG pH ABG pCO2 ABG pO2 ABG PO2/FiO2 Ratio ABG HCO3 ABG O2 Saturation ABG O2 Content ABG Base Excess A-a Gradient Oxyhemoglobin Carboxyhemoglobin Methemoglobin Reduced Hemoglobin Total Hemoglobin O2 Delivery Device O2 Liters/Min Minute Volume Vent Rate Vent Mode FiO2 Tidal Volume PEEP Peak Inspir Pressure Pressure Support Sodium Potassium Chloride Carbon Dioxide Anion Gap BUN Creatinine Estim Creat Clear Calc Estimated GFR Glucose POC Capillary Glucose 160 H Calcium Phosphorus Magnesium Total Bilirubin AST ALT Alkaline Phosphatase Total Protein Albumin Urine Myoglobin Influenza A (RT-PCR) Influenza B (RT-PCR) RSV (RT-PCR) SARS-CoV-2 RNA (RT-PCR) Quality VTE Prophylaxis VTE prophylaxis: pharmacologic ordered
[2024-07-08 13:53] LABS: MRSA (PCR) NOT DETECTED (NOT DETECTE)
[2024-07-08 14:17] LABS: Ammonia < 9 umol/L (9-30)
[2024-07-08 17:17] LABS: Partial Thromboplastin Time 107.9 Seconds (22.3-36.8)
[2024-07-08 17:43] LABS: Glucose Point of Care 198 mg/dl (65-105)
--- NOTE | 2024-07-08 20:23 | ECG_ITS ---
Test Date: 2024-07-08 20:27:18 Measurements Intervals [place] Rate: 140 P: 0 SC: 0 QRS: 11 QRSD: 82 T: 124 QT: 280 QTc: 427 Interpretive Statements ATRIAL FIBRILLATION WITH RAPID VENTRICULAR RESPONSE DELAYED PRECORDIAL R/S TRANSITION LOW QRS VOLTAGE IN LIMB LEADS ST-T WAVE ABNORMALITY IN DIFFUSE LEADS- CONSIDER ISCHEMIA ABNORMAL ECG Compared to ECG 07/07/2024 15:42:27 SINUS BRADYCARDIA NO LONGER PRESENT Electronically Signed On 07-09-2024 05:41:29 RULING MACHINE OPERATOR by Drake Brewster D.O.
[2024-07-08] MEDS: AMIODARONE 150 MG/D5W 100 ML 150 MG/100 ML BAG 600 MG IV CONT (20:45)
[2024-07-08] MEDS: METOPROLOL TARTRATE 25 MG TABLET PO (20:49)
[2024-07-08] MEDS: HEPARIN SOD/D5W 100 UNITS/ML 25,000 UNITS/250 ML BAG IV CONT (21:22)
[2024-07-08] MEDS: SODIUM CHLORIDE 0.9% IV 500 ML 999 ML IV CONT (21:55)
[2024-07-08] MEDS: PHENYLEPHRINE HCL INJ 50 MG in DEXTROSE 5% IN WATER 250 ML/245 ML BAG 12 ML IV CONT (23:27)
[2024-07-08 23:43] LABS: Partial Thromboplastin Time 114.2 Seconds (22.3-36.8)
[2024-07-09] VITALS (49 sets, daily range): BP systolic 84–177; BP diastolic 31–78; PULSE 55–83; RESP 15–20; TEMP 37.2–37.7; O2SAT 93–99
[2024-07-09 01:33] LABS: Glucose Point of Care 173 mg/dl (65-105)
[2024-07-09] MEDS: IPRATROPIUM 0.5 MG/ALBUTEROL SULFATE 2.5 MG AMPUL.NEB 3 ML INHALATION ×4 (02:15→19:25)
[2024-07-09 05:05] LABS: Basophils Absolute Auto 0.1 K/mm3 (0.0-0.1); Basophils Percent Auto 0.2 % (0.2-1.2); Eosinophils Absolute Auto 0.2 K/mm3 (0-0.3); Eosinophils Percent Auto 0.8 % (0-4.4); Hematocrit 24.1 % (37.0-47.0); Hemoglobin 7.8 g/dL (12.0-15.0); Immature Granulocyte Absolute 0.51 K/mm3 (0.00-0.031); Immature Granulocyte Percent A 1.8 % (0-0.5); Lymphocytes Absolute Auto 2.84 K/mm3 (0.9-3.2); Lymphocytes Percent Auto 9.8 % (18.3-44.2); Mean Corpuscular HGB Conc 32.4 g/dl (32-36); Mean Corpuscular Hemoglobin 29.1 pg (26-34); Mean Corpuscular Volume 89.9 fl (80-100); Mean Platelet Volume 11.9 fl (7.4-10.4); Monocytes Absolute Auto 2.3 K/mm3 (0.1-0.6); Monocytes Percent Auto 7.8 % (2.6-8.5); Neutrophils Absolute Auto 23.2 K/mm3 (1.3-6.7); Neutrophils Percent Auto 79.6 % (45.5-73.1); Nucleated Red Blood Cells Perc 0.3 % (0.0-0.2); Platelet Count Result 260 k/mm3 (150-375); Red Blood Count 2.68 M/mm3 (4.2-5.4); Red Cell Distribution Width 18.6 % (11.5-14.5); White Blood Count 29.1 K/mm3 (4.5-10.0)
[2024-07-09 05:20] LABS: Alveolar/Arterial O2 Gradient 145.8 mmHg; Carboxyhemoglobin 0.8 % THb (0-2.0); Fractional Inspired Oxygen 35 %; HCO3 ABG 25.8 mEq/l (22.0-26.0); Methemoglobin ABG 0.3 %THb (0-1.5); Oxygen Content ABG 10.3 %vol (16.0-22.0); Oxygen Saturation ABG 92.8 % (95.0-100.0); Oxyhemoglobin 89.4 % THb (90.0-100.0); PCO2 ABG 36.9 mmHg (35.0-45.0); PO2 ABG 60.9 mmHg (80.0-100.0); PO2 FiO2 Ratio Arterial Blood 1.74 %; Reduced Hemoglobin 9.5 %THb (0-5.0); Total Hemoglobin 8.1 g/dL (12.0-18.0); pH ABG 7.463 (7.350-7.450)
[2024-07-09 05:22] LABS: Arterial Blood Gas PEEP 5 cmH2O; Arterial Blood Gas Tidal Volume 480 ml; Arterial Blood Gas Vent Mode CMV; Arterial Blood Gas Ventilator rate 18 /MIN; Device VENTILATOR; Modified Allen's Test Unable to perform; Site Drawn RIGHT RADIAL
[2024-07-09 05:40] LABS: Vancomycin Random 10.2 ug/mL (10-20)
[2024-07-09 05:41] LABS: Alanine Aminotransferase 50 U/L (6-35); Albumin Level 3.3 g/dL (3.5-5.1); Alkaline Phosphatase 86 U/L (38-126); Anion Gap 10 mmol/L (4-12); Aspartate Amino Transferase 42 U/L (14-36); Bilirubin,Total 0.4 mg/dL (0.2-1.3); Calcium 8.8 mg/dL (8.4-10.2); Carbon Dioxide 28 mmol/L (22-30); Chloride 106 mmol/L (98-107); Estimated CRCL calculation 22 ml/min; Estimated Glomerular Filt Rate 34; Glucose 152 mg/dL (65-110); Magnesium 2.7 mg/dL (1.6-2.3); Phosphorus 4.2 mg/dL (2.5-4.5); Potassium 3.9 mmol/L (3.4-5.0); Sodium 144 mmol/L (137-145)
[2024-07-09 05:43] LABS: Partial Thromboplastin Time 56.5 Seconds (22.3-36.8)
[2024-07-09 05:50] LABS: Blood Urea Nitrogen 125 mg/dL (7-17)
[2024-07-09] MEDS: PHENYLEPHRINE HCL INJ 50 MG in DEXTROSE 5% IN WATER 250 ML/245 ML BAG 54 ML IV CONT (06:30)
[2024-07-09] MEDS: LEVOTHYROXINE SODIUM 50 MCG TABLET FEED TUBE (06:32)
[2024-07-09] MEDS: CENTRAL LINE FLUSH 10 ML IV PUSH ×3 (06:32→20:33)
[2024-07-09] MEDS: MIDAZOLAM 100MG/NS 100ML(*CRX) 100 MG/100 ML BAG IV CONT (06:34)
[2024-07-09 07:06] LABS: Anisocytosis 1+; Hypochromasia 1+; Ovalocytes 1+; Platelet Estimate Adequate (Adequate)
[2024-07-09 07:08] LABS: Schistocytes 1+
[2024-07-09 07:09] LABS: Poikilocytosis 2+
[2024-07-09] MEDS: VANCOMYCIN 1,000 MG/NS 250 ML 1,000 MG/250 ML BAG 250 MG IVPB (07:19)
[2024-07-09] MEDS: HEPARIN SODIUM 5,000 UNITS/ML VIAL 2500 UNITS IV PUSH (07:21)
[2024-07-09] MEDS: PANTOPRAZOLE SODIUM IV 40 MG VIAL IV PUSH ×2 (08:50→20:33)
[2024-07-09] MEDS: ASPIRIN 81 MG CHEWABLE TABLET PO (08:50)
[2024-07-09] MEDS: MINERAL OIL/WHITE PETROLATUM OINTMENT 1 APPLIC EACH EYE ×2 (08:50→20:33)
[2024-07-09] MEDS: ATORVASTATIN 40 MG TABLET PO (08:50)
[2024-07-09] MEDS: CEFEPIME 1 GM/NS 50 ML 1 GM/50 ML BAG IVPB ×2 (08:53→20:33)
[2024-07-09] MEDS: INSULIN GLARGINE (*BKC) 100 UNITS/ML 8 UNITS SUB-Q (08:53)
--- NOTE | 2024-07-09 08:58 | ECG_ITS ---
Test Date: 2024-07-09 09:02:52 Measurements Intervals [place] Rate: 67 P: 27 MI: 138 QRS: 48 QRSD: 78 T: 137 QT: 376 QTc: 399 Interpretive Statements SINUS RHYTHM ST DEVIATION AND MODERATE T-WAVE ABNORMALITY, CONSIDER INF/LAT ISCHEMIA BASELINE ARTIFACT- III, AVL, V2-V4 ABNORMAL ECG Compared to ECG 07/08/2024 20:27:18 Atrial fibrillation no longer present Electronically Signed On 07-09-2024 10:14:00 SWAGE TENDER by Drake Brewster D.O.
--- NOTE | 2024-07-09 10:53 | PM.PNCARD ---
Progress Note: A&P Assessment and Plan (1) Non-ST elevation UT (NSTEMI): Code(s): I21.4 - Non-ST elevation (NSTEMI) myocardial infarction Status: Acute (2) Atrial fibrillation with RVR: Code(s): I48.91 - Unspecified atrial fibrillation Status: Acute (3) Hypertension: Qualifiers: Hypertension type: unspecified Qualified Code(s): I10 - Essential (primary) hypertension Code(s): I10 - Essential (primary) hypertension Status: Acute Plan 78-year-old woman with chronic hypoxic respiratory failure on home O2 4 L at night and hyperlipidemia presented with acute respiratory distress found to have non ST elevation as well as paroxysmal atrial fibrillation with rapid ventricular rates Paroxysmal atrial fibrillation -continue heparin drip for now and eventually transition to DOAC -transition amiodarone drip to amiodarone 400 mg oral b.i.d. Non ST elevation UT -continue aspirin 81 mg p.o. daily and atorvastatin 40 mg every evening -would add metoprolol succinate 25 mg p.o. daily -ischemic eval once extubated and recover from respiratory failure Hyperlipidemia -continue atorvastatin 40 mg every evening Subjective Date/time seen: 07/09/24 10:53 Interval history: Patient is intubated and sedated Review of Systems Review of Systems: ROS unobtainable: Yes unobtainable due to endotracheal tube Exam Const: Other: Intubated and sedated Neck: Neck: no JVD Resp: Other: Mechanical ventilatory sounds Cardio: Rate: regular rate Rhythm: regular rhythm Extrem: General: no edema and no pedal edema Objective Data Vital Signs Vital Signs: Vital Signs - 24 hr 07/08/24 11:32 07/08/24 11:32 07/08/24 11:35 Temperature Pulse Rate 73 74 82 Respiratory Rate 15 18 Blood Pressure Pulse Oximetry 97 Oxygen Delivery Mechanical Ventilation Fraction of Inspired Oxygen 40 07/08/24 12:00 07/08/24 12:00 07/08/24 12:00 Temperature 37.4 C Pulse Rate 72 71 71 Respiratory Rate 20 14 18 Blood Pressure 102/47 L Pulse Oximetry 96 Oxygen Delivery Fraction of Inspired Oxygen 07/08/24 12:00 07/08/24 12:00 07/08/24 12:00 Temperature Pulse Rate 73 72 Respiratory Rate 18 Blood Pressure 117/66 Pulse Oximetry Oxygen Delivery Mechanical Ventilation Fraction of Inspired Oxygen 40 40 02/12/25 12:00 07/08/24 13:58 07/08/24 14:00 Temperature Pulse Rate 76 71 71 Respiratory Rate 18 Blood Pressure Pulse Oximetry 98 Oxygen Delivery Mechanical Ventilation Fraction of Inspired Oxygen 40 07/08/24 14:00 07/08/24 14:00 07/08/24 14:00 Temperature Pulse Rate 71 71 71 Respiratory Rate 18 Blood Pressure 109/53 L Pulse Oximetry Oxygen Delivery Fraction of Inspired Oxygen 07/08/24 14:00 07/08/24 14:04 07/08/24 14:25 Temperature 37.3 C Pulse Rate 71 71 77 Respiratory Rate 18 18 18 Blood Pressure 109/53 L Pulse Oximetry 99 Oxygen Delivery Fraction of Inspired Oxygen 07/08/24 16:00 07/08/24 16:00 07/08/24 16:00 Temperature 37.3 C Pulse Rate 75 75 75 Respiratory Rate 18 18 18 Blood Pressure 115/53 L Pulse Oximetry 97 Oxygen Delivery Fraction of Inspired Oxygen 07/08/24 16:00 07/08/24 16:00 07/08/24 16:00 Temperature Pulse Rate 75 74 Respiratory Rate Blood Pressure 115/52 L Pulse Oximetry Oxygen Delivery Fraction of Inspired Oxygen 40 07/08/24 16:00 07/08/24 16:38 07/08/24 17:44 Temperature Pulse Rate 73 75 89 Respiratory Rate 18 Blood Pressure 116/57 L Pulse Oximetry 97 96 Oxygen Delivery Mechanical Ventilation Mechanical Ventilation Fraction of Inspired Oxygen 40 40 07/08/24 17:57 07/08/24 18:00 07/08/24 18:00 Temperature Pulse Rate 74 81 81 Respiratory Rate 18 18 Blood Pressure 116/57 L Pulse Oximetry Oxygen Delivery Fraction of Inspired Oxygen 07/08/24 18:00 07/08/24 18:00 07/08/24 18:00 Temperature 37.4 C Pulse Rate 81 81 81 Respiratory Rate 18 Blood Pressure 117/51 L 117/51 L Pulse Oximetry 97 Oxygen Delivery Fraction of Inspired Oxygen 07/08/24 20:00 07/08/24 20:00 07/08/24 20:00 Temperature Pulse Rate 83 83 83 Respiratory Rate 18 18 Blood Pressure 107/52 L Pulse Oximetry Oxygen Delivery Fraction of Inspired Oxygen 07/08/24 20:00 07/08/24 20:00 07/08/24 20:00 Temperature 37.4 C Pulse Rate 83 Respiratory Rate 18 Blood Pressure 107/52 L Pulse Oximetry 99 Oxygen Delivery Mechanical Ventilation Fraction of Inspired Oxygen 40 40 07/08/24 20:00 07/08/24 20:05 07/08/24 20:44 Temperature Pulse Rate 104 H 126 H 146 H Respiratory Rate Blood Pressure 120/88 Pulse Oximetry 99 Oxygen Delivery Mechanical Ventilation Fraction of Inspired Oxygen 40 07/08/24 20:45 07/08/24 20:49 07/08/24 20:55 Temperature Pulse Rate 146 H 132 H 125 H Respiratory Rate Blood Pressure 120/88 85/62 L Pulse Oximetry Oxygen Delivery Fraction of Inspired Oxygen 07/08/24 20:56 07/08/24 21:32 07/08/24 21:45 Temperature Pulse Rate 123 H 119 H Respiratory Rate 18 Blood Pressure 90/60 L Pulse Oximetry Oxygen Delivery Fraction of Inspired Oxygen 35 07/08/24 21:47 07/08/24 21:49 07/08/24 22:00 Temperature 37.5 C Pulse Rate 58 L 58 L 57 L Respiratory Rate 18 18 Blood Pressure 67/41 L 78/44 L Pulse Oximetry 99 Oxygen Delivery Fraction of Inspired Oxygen 07/08/24 22:00 07/08/24 22:00 07/08/24 22:00 Temperature Pulse Rate 57 L 57 L 57 L Respiratory Rate 18 18 Blood Pressure Pulse Oximetry Oxygen Delivery Fraction of Inspired Oxygen 07/08/24 22:00 07/08/24 23:11 07/08/24 23:27 Temperature Pulse Rate 57 L 55 L 54 L Respiratory Rate Blood Pressure 78/44 L 95/48 L Pulse Oximetry 97 Oxygen Delivery Mechanical Ventilation Fraction of Inspired Oxygen 35 07/08/24 23:45 07/08/24 23:45 07/08/24 23:47 Temperature Pulse Rate 55 L 55 L 55 L Respiratory Rate 18 18 Blood Pressure 105/38 L Pulse Oximetry Oxygen Delivery Fraction of Inspired Oxygen 07/09/24 00:00 07/09/24 00:00 07/09/24 00:00 Temperature 37.3 C Pulse Rate 55 L Respiratory Rate 18 Blood Pressure 122/44 L Pulse Oximetry 97 Oxygen Delivery Mechanical Ventilation Fraction of Inspired Oxygen 35 35 07/09/24 00:00 07/09/24 00:00 07/09/24 00:00 Temperature Pulse Rate 55 L 55 L 55 L Respiratory Rate 18 18 Blood Pressure 122/44 L Pulse Oximetry Oxygen Delivery Fraction of Inspired Oxygen 07/09/24 00:00 07/09/24 00:00 07/09/24 01:45 Temperature Pulse Rate 55 L 55 L 57 L Respiratory Rate Blood Pressure 122/44 L 84/40 L Pulse Oximetry Oxygen Delivery Fraction of Inspired Oxygen 07/09/24 02:00 07/09/24 02:00 07/09/24 02:00 Temperature Pulse Rate 56 L 56 L 56 L Respiratory Rate 18 18 Blood Pressure 95/45 L Pulse Oximetry Oxygen Delivery Fraction of Inspired Oxygen 07/09/24 02:00 07/09/24 02:00 07/09/24 02:00 Temperature 37.6 C H Pulse Rate 56 L 56 L 56 L Respiratory Rate 18 Blood Pressure 95/45 L 95/45 L Pulse Oximetry 98 Oxygen Delivery Fraction of Inspired Oxygen 07/09/24 02:15 07/09/24 02:15 07/09/24 02:15 Temperature Pulse Rate 57 L 58 L 58 L Respiratory Rate 18 Blood Pressure 86/45 L Pulse Oximetry 96 Oxygen Delivery Mechanical Ventilation Fraction of Inspired Oxygen 35 07/09/24 02:23 07/09/24 02:36 07/09/24 03:00 Temperature Pulse Rate 58 L 59 L 60 Respiratory Rate 18 Blood Pressure 116/59 L 86/40 L Pulse Oximetry Oxygen Delivery Fraction of Inspired Oxygen 07/09/24 03:15 07/09/24 03:30 07/09/24 03:45 Temperature Pulse Rate 60 62 62 Respiratory Rate Blood Pressure 97/46 L 95/49 L 96/51 L Pulse Oximetry Oxygen Delivery Fraction of Inspired Oxygen 07/09/24 04:00 07/09/24 04:00 07/09/24 04:00 Temperature 37.7 C H Pulse Rate 61 Respiratory Rate 18 Blood Pressure 111/31 L Pulse Oximetry 99 Oxygen Delivery Mechanical Ventilation Fraction of Inspired Oxygen 35 35 07/09/24 04:00 07/09/24 04:00 07/09/24 04:00 Temperature Pulse Rate 61 61 61 Respiratory Rate 18 18 Blood Pressure 111/31 L Pulse Oximetry Oxygen Delivery Fraction of Inspired Oxygen 07/09/24 04:00 07/09/24 04:00 07/09/24 04:15 Temperature Pulse Rate 61 60 60 Respiratory Rate Blood Pressure 111/31 L 115/60 Pulse Oximetry Oxygen Delivery Fraction of Inspired Oxygen 07/09/24 04:15 07/09/24 04:15 07/09/24 04:56 Temperature Pulse Rate 60 61 67 Respiratory Rate 18 18 Blood Pressure Pulse Oximetry 93 Oxygen Delivery Mechanical Ventilation Fraction of Inspired Oxygen 35 07/09/24 06:00 07/09/24 06:00 07/09/24 06:00 Temperature Pulse Rate 64 64 64 Respiratory Rate 18 18 Blood Pressure 103/56 L Pulse Oximetry Oxygen Delivery Fraction of Inspired Oxygen 07/09/24 06:00 07/09/24 06:00 07/09/24 06:00 Temperature 37.5 C Pulse Rate 64 64 64 Respiratory Rate 18 Blood Pressure 103/56 L 103/56 L Pulse Oximetry 93 Oxygen Delivery Fraction of Inspired Oxygen 07/09/24 06:30 07/09/24 06:30 07/09/24 06:34 Temperature Pulse Rate 64 64 64 Respiratory Rate 18 Blood Pressure 166/58 H 166/58 H Pulse Oximetry Oxygen Delivery Fraction of Inspired Oxygen 07/09/24 06:34 07/09/24 07:00 07/09/24 07:01 Temperature Pulse Rate 64 64 64 Respiratory Rate 18 Blood Pressure 143/54 H 143/54 H Pulse Oximetry Oxygen Delivery Fraction of Inspired Oxygen 07/09/24 08:00 07/09/24 08:00 07/09/24 08:00 Temperature Pulse Rate 63 Respiratory Rate 18 Blood Pressure Pulse Oximetry Oxygen Delivery Mechanical Ventilation Fraction of Inspired Oxygen 35 07/09/24 08:00 07/09/24 08:00 07/09/24 08:00 Temperature 37.5 C Pulse Rate 63 63 63 Respiratory Rate 18 18 Blood Pressure 114/51 L 114/51 L Pulse Oximetry 94 Oxygen Delivery Fraction of Inspired Oxygen 07/09/24 08:33 07/09/24 08:38 07/09/24 08:41 Temperature Pulse Rate 65 65 65 Respiratory Rate 18 16 Blood Pressure Pulse Oximetry 97 Oxygen Delivery Mechanical Ventilation Fraction of Inspired Oxygen 35 07/09/24 08:47 07/09/24 08:50 07/09/24 08:55 Temperature Pulse Rate 66 79 72 Respiratory Rate Blood Pressure 168/68 H 177/51 H 176/60 H Pulse Oximetry Oxygen Delivery Fraction of Inspired Oxygen 07/09/24 09:00 07/09/24 09:05 07/09/24 09:07 Temperature Pulse Rate 72 76 83 Respiratory Rate Blood Pressure 162/58 H 153/60 H 154/66 H Pulse Oximetry Oxygen Delivery Fraction of Inspired Oxygen 07/09/24 09:08 07/09/24 09:10 07/09/24 10:00 Temperature 37.5 C Pulse Rate 77 71 73 Respiratory Rate 15 Blood Pressure 154/60 H 154/60 H 134/45 L Pulse Oximetry 93 Oxygen Delivery Fraction of Inspired Oxygen 07/09/24 10:00 07/09/24 10:00 07/09/24 10:00 Temperature Pulse Rate 73 73 73 Respiratory Rate 15 15 Blood Pressure 134/45 L Pulse Oximetry Oxygen Delivery Fraction of Inspired Oxygen 07/09/24 10:00 Temperature Pulse Rate 73 Respiratory Rate Blood Pressure 134/45 L Pulse Oximetry Oxygen Delivery Fraction of Inspired Oxygen Intake/Output Intake/Output: Intake & Output 07/06/24 07/07/24 07/08/24 07/09/24 23:59 23:59 23:59 23:59 Intake Total 2322.3 2150.4 3331.3 1368.5 Output Total 1150 1250 1350 275 Balance 1172.3 900.4 1981.3 1093.5 Meds/Results Medications: Active Medications Generic Name Dose Route Start Last Admin Trade Name Freq PRN Reason Stop Dose Admin Albuterol/Ipratropium 3 ml 06/29/24 02:00 07/09/24 08:33 Ipratropium 0.5 Mg/Albuterol Sulfate 2.5 Mg Ampul.Neb 3 Ml INHALATION 3 ml Q6HRT BARBARA Administration Aspirin 81 mg 07/01/24 08:00 07/09/24 08:50 Aspirin 81 Mg Chewable Tablet PO 81 mg DAILY@0800 BARBARA Administration Atorvastatin Calcium 40 mg 06/29/24 09:00 07/09/24 08:50 Atorvastatin 40 Mg Tablet PO 40 mg DAILY BARBARA Administration Cyanocobalamin 1,000 mcg 07/07/24 12:00 07/07/24 13:35 Cyanocobalamin Inj 1,000 Mcg/Ml Vial IM 07/14/24 09:01 1,000 mcg WEEKLY BARBARA Administration Dextrose 12.5 gm 06/29/24 08:08 Dextrose 50% 25 Gm/50 Ml Syringe IV PUSH PRN PRN Hypoglycemia Protocol Glucagon 1 mg 06/29/24 08:08 Glucagon For Inj 1 Mg Vial IM PRN PRN Hypoglycemia Protocol Glucose 15 gm 06/29/24 08:08 Glucose Oral Gel 15 Gm Of Glucse In 37.5 Gm Tube PO PRN PRN Hypoglycemia Protocol Heparin Sodium (Porcine) 5,000 units 07/07/24 11:24 Heparin Sodium 5,000 Units/Ml Vial IV PUSH PRN PRN aPTT less than 55 seconds Heparin Sodium (Porcine) 2,500 units 07/07/24 11:24 07/09/24 07:21 Heparin Sodium 5,000 Units/Ml Vial IV PUSH 2,500 units PRN PRN Administration aPTT 55 - 70 seconds Hydralazine HCl 10 mg 07/06/24 16:42 07/06/24 17:03 Hydralazine Hcl 20 Mg/Ml Vial IV PUSH 10 mg Q4H PRN Administration Blood Pressure - High Dextrose 1,000 mls @ 100 mls/hr 06/29/24 08:08 Dextrose 5% 1,000 Ml IVPB PRN PRN Hypoglycemia Protocol Fentanyl Citrate 2,500 mcg in 250 mls @ 5 mls/hr 07/06/24 17:55 07/09/24 10:00 Fentanyl 2,500 Mcg/Ns 250 Ml IV CONT 50 mcg/hr .Q50H BARBARA 5 mls/hr Titration Protocol 50 MCG/HR Midazolam HCl 100 mg in 100 mls @ 2 mls/hr 07/06/24 17:55 07/09/24 10:00 Versed 100 Mg/Ns 100 Ml IV CONT 2 mg/hr .Q50H BARBARA 2 mls/hr Titration Protocol 2 MG/HR Heparin Sodium/Dextrose 25,000 units in 250 mls @ 5 mls/hr 07/07/24 11:25 07/09/24 10:00 Heparin Sodium/D5w 100 Units/Ml IV CONT 500 units/hr .Q24H BARBARA 5 mls/hr Titration Protocol 500 UNITS/HR Cefepime HCl 1 gm in 50 mls @ 100 mls/hr 07/08/24 11:00 07/09/24 10:20 Maxipime 1 Gm/Ns 50 Ml IVPB Infused Q12HR BARBARA Infusion Amiodarone HCl/Dextrose 360 mg in 200 mls @ 0 mls/hr 07/08/24 18:00 07/09/24 10:00 Nexterone 360 Mg/D5w 200 Ml IV CONT 07/09/24 11:59 0 mg/min .Q0M BARBARA 0 mls/hr Infusion Protocol 0 MG/MIN Phenylephrine HCl 50 mg/ 250 ml in 250 mls @ 0 mls/hr 07/08/24 23:10 07/09/24 10:00 Dextrose IV CONT 0 mcg/min .Q0M BARBARA 0 mls/hr Titration Protocol Insulin Aspart 3 - 6 units 06/29/24 12:00 07/09/24 06:32 Insulin Aspart (*Bkc) 100 Units/Ml SUB-Q Not Given Q6HR [facility] Protocol Insulin Glargine 8 units 07/06/24 09:00 07/09/24 08:53 Insulin Glargine (*Bkc) 100 Units/Ml SUB-Q 8 units DAILY BARBARA Administration Levothyroxine Sodium 50 mcg 06/30/24 06:30 07/09/24 06:32 Levothyroxine Sodium 50 Mcg Tablet FEED TUBE 50 mcg DAILY@0630 BARBARA Administration Multi-Ingred Cream/Lotion/Oil/Oint 1 applic 06/29/24 09:00 07/09/24 08:50 Mineral Oil/White Petrolatum Ointment EACH EYE 1 applic Q12HR BARBARA Administration Pantoprazole Sodium 40 mg 07/06/24 21:00 07/09/24 08:50 Pantoprazole Sodium Iv 40 Mg Vial IV PUSH 40 mg Q12HR BARBARA Administration Sodium Chloride 10 ml 06/29/24 14:00 07/09/24 06:32 Central Line Flush IV PUSH 10 ml Q8HR BARBARA Administration Sodium Chloride 10 ml 06/29/24 12:40 Central Line Flush IV PUSH PRN PRN with TPN bag changes Sodium Chloride 20 ml 06/29/24 12:40 Central Line Flush IV PUSH PRN PRN after blood draws Vancomycin HCl 1 each 07/08/24 10:48 Vancomycin For Acute Kidney Injury IVPB PRN PRN Vancomycin Protocol Radiology Results: ITS Impressions Abdomen X-Ray 06/28/24 20:03 IMPRESSION: Nasogastric tube in good position and ready for immediate use. Abdomen Ultrasound 07/03/24 14:12 IMPRESSION: 1. Normal right upper quadrant ultrasound status post cholecystectomy. Renal Ultrasound 07/06/24 08:30 IMPRESSION: 1. No hydronephrosis in either kidney. Head CT 07/08/24 10:08 IMPRESSION: 1. No acute intracranial process. 2. 8 mm calcified extra-axial mass overlying the left parietal lobe most consistent with a meningioma. Chest X-Ray 07/09/24 08:00 Impression: Persistent haziness left lung base, suspicious for pneumonia versus possibly asymmetric pulmonary edema. Underlying COPD. Stable support tubes. Labs Labs: Laboratory Results - last 24 hr 07/05/24 07/06/24 07/08/24 16:40 06:40 11:28 WBC RBC Hgb Hct MCV MCH MCHC RDW Plt Count MPV Immature Gran % (Auto) Neut % (Auto) Lymph % (Auto) [place] % (Auto) Eos % (Auto) Baso % (Auto) Lymph # (Auto) [place] # (Auto) Eos # (Auto) Baso # (Auto) Abs Immat Gran (auto) Absolute Neuts (auto) Absolute Nucleated RBC Nucleated RBC % Platelet Estimate Hypochromasia Poikilocytosis Anisocytosis Ovalocytes Schistocytes APTT Puncture Site ABG pH ABG pCO2 ABG pO2 ABG PO2/FiO2 Ratio ABG HCO3 ABG O2 Saturation ABG O2 Content ABG Base Excess A-a Gradient Oxyhemoglobin Carboxyhemoglobin Methemoglobin Reduced Hemoglobin Total Hemoglobin O2 Delivery Device O2 Liters/Min Minute Volume Vent Rate Vent Mode FiO2 Tidal Volume PEEP Peak Inspir Pressure Pressure Support Sodium Potassium Chloride Carbon Dioxide Anion Gap BUN Creatinine Estim Creat Clear Calc Estimated GFR Glucose POC Capillary Glucose Calcium Phosphorus Magnesium Total Bilirubin AST ALT Alkaline Phosphatase Ammonia Total Protein Albumin Aldosterone <1 Urine Osmolality TNP Ur Random Creatinine TNP U Random Chloride/Creat TNP Nasal MRSA (PCR) Not detected Random Vancomycin Influenza A (RT-PCR) Negative Influenza B (RT-PCR) Negative RSV (RT-PCR) Negative SARS-CoV-2 RNA (RT-PCR) Negative 07/08/24 07/08/24 07/08/24 11:48 13:58 16:52 WBC RBC Hgb Hct MCV MCH MCHC RDW Plt Count MPV Immature Gran % (Auto) Neut % (Auto) Lymph % (Auto) [place] % (Auto) Eos % (Auto) Baso % (Auto) Lymph # (Auto) [place] # (Auto) Eos # (Auto) Baso # (Auto) Abs Immat Gran (auto) Absolute Neuts (auto) Absolute Nucleated RBC Nucleated RBC % Platelet Estimate Hypochromasia Poikilocytosis Anisocytosis Ovalocytes Schistocytes APTT 107.9 H Puncture Site ABG pH ABG pCO2 ABG pO2 ABG PO2/FiO2 Ratio ABG HCO3 ABG O2 Saturation ABG O2 Content ABG Base Excess A-a Gradient Oxyhemoglobin Carboxyhemoglobin Methemoglobin Reduced Hemoglobin Total Hemoglobin O2 Delivery Device O2 Liters/Min Minute Volume Vent Rate Vent Mode FiO2 Tidal Volume PEEP Peak Inspir Pressure Pressure Support Sodium Potassium Chloride Carbon Dioxide Anion Gap BUN Creatinine Estim Creat Clear Calc Estimated GFR Glucose POC Capillary Glucose 160 H Calcium Phosphorus Magnesium Total Bilirubin AST ALT Alkaline Phosphatase Ammonia < 9 L Total Protein Albumin Aldosterone Urine Osmolality Ur Random Creatinine U Random Chloride/Creat Nasal MRSA (PCR) Random Vancomycin Influenza A (RT-PCR) Influenza B (RT-PCR) RSV (RT-PCR) SARS-CoV-2 RNA (RT-PCR) 07/08/24 07/08/24 07/09/24 17:40 23:21 01:10 WBC RBC Hgb Hct MCV MCH MCHC RDW Plt Count MPV Immature Gran % (Auto) Neut % (Auto) Lymph % (Auto) [place] % (Auto) Eos % (Auto) Baso % (Auto) Lymph # (Auto) [place] # (Auto) Eos # (Auto) Baso # (Auto) Abs Immat Gran (auto) Absolute Neuts (auto) Absolute Nucleated RBC Nucleated RBC % Platelet Estimate Hypochromasia Poikilocytosis Anisocytosis Ovalocytes Schistocytes APTT 114.2 H Puncture Site ABG pH ABG pCO2 ABG pO2 ABG PO2/FiO2 Ratio ABG HCO3 ABG O2 Saturation ABG O2 Content ABG Base Excess A-a Gradient Oxyhemoglobin Carboxyhemoglobin Methemoglobin Reduced Hemoglobin Total Hemoglobin O2 Delivery Device O2 Liters/Min Minute Volume Vent Rate Vent Mode FiO2 Tidal Volume PEEP Peak Inspir Pressure Pressure Support Sodium Potassium Chloride Carbon Dioxide Anion Gap BUN Creatinine Estim Creat Clear Calc Estimated GFR Glucose POC Capillary Glucose 198 H 173 H Calcium Phosphorus Magnesium Total Bilirubin AST ALT Alkaline Phosphatase Ammonia Total Protein Albumin Aldosterone Urine Osmolality Ur Random Creatinine U Random Chloride/Creat Nasal MRSA (PCR) Random Vancomycin Influenza A (RT-PCR) Influenza B (RT-PCR) RSV (RT-PCR) SARS-CoV-2 RNA (RT-PCR) 07/09/24 07/09/24 04:54 05:05 WBC 29.1 H RBC 2.68 L Hgb 7.8 L Hct 24.1 L MCV 89.9 MCH 29.1 MCHC 32.4 RDW 18.6 H Plt Count 260 MPV 11.9 H Immature Gran % (Auto) 1.8 H Neut % (Auto) 79.6 H Lymph % (Auto) 9.8 L [place] % (Auto) 7.8 Eos % (Auto) 0.8 Baso % (Auto) 0.2 Lymph # (Auto) 2.84 [place] # (Auto) 2.3 H Eos # (Auto) 0.2 Baso # (Auto) 0.1 Abs Immat Gran (auto) 0.51 H Absolute Neuts (auto) 23.2 H Absolute Nucleated RBC 0.100 H Nucleated RBC % 0.3 H Platelet Estimate Adequate Hypochromasia 1+ Poikilocytosis 2+ Anisocytosis 1+ Ovalocytes 1+ Schistocytes 1+ APTT 56.5 H Puncture Site Right radial ABG pH 7.463 H ABG pCO2 36.9 ABG pO2 60.9 L ABG PO2/FiO2 Ratio 1.74 ABG HCO3 25.8 ABG O2 Saturation 92.8 L ABG O2 Content 10.3 L ABG Base Excess 2.0 A-a Gradient 145.8 Oxyhemoglobin 89.4 L Carboxyhemoglobin 0.8 Methemoglobin 0.3 Reduced Hemoglobin 9.5 H Total Hemoglobin 8.1 L O2 Delivery Device Ventilator O2 Liters/Min Not Reportable Minute Volume Not Reportable Vent Rate 18 Vent Mode Cmv FiO2 35 Tidal Volume 480 PEEP 5 Peak Inspir Pressure Not Reportable Pressure Support Not Reportable Sodium 144 Potassium 3.9 Chloride 106 Carbon Dioxide 28 Anion Gap 10 BUN 125 H Creatinine 1.76 H Estim Creat Clear Calc 22 Estimated GFR 34 L Glucose 152 H POC Capillary Glucose Calcium 8.8 Phosphorus 4.2 Magnesium 2.7 H Total Bilirubin 0.4 AST 42 H ALT 50 H Alkaline Phosphatase 86 Ammonia Total Protein 5.0 L Albumin 3.3 L Aldosterone Urine Osmolality Ur Random Creatinine U Random Chloride/Creat Nasal MRSA (PCR) Random Vancomycin 10.2 Influenza A (RT-PCR) Influenza B (RT-PCR) RSV (RT-PCR) SARS-CoV-2 RNA (RT-PCR)
--- NOTE | 2024-07-09 11:18 | PCFNICU ---
ICU Rounding Note: Pt current nutrition is Nepro at 40ml/hr. Last recorded weight is 75.5 kg, up from 64.3 kg on admit. Bowel Motility: +BM reported 07/07 Labs Reviewed: Mg 2.7, BUN 125, Cr 1.76, Alb 3.3, Hct 24.1, Hgb 7.8 Meds Noted:Lovenox, Protonix, NovoLog,Fentanyl, Versed, Lantus Skin: Deep Tissue-coccyx. Additional Notes: Patient remains on mechanical vent. Tube feedings are being tolerated of Nepro at 40 ml/hr with flush of 100 ml q 4 hours. Agree with diet orders. Following daily in ICU rounds. Will reassess weight, labs, skin, diet orders, meds, tube feedings tolerance every Saturday and Saturday
[2024-07-09 11:51] LABS: Glucose Point of Care 158 mg/dl (65-105)
--- NOTE | 2024-07-09 12:16 | WPDINTPN ---
Progress Note: A&P Assessment and Plan (1) Atrial fibrillation with RVR: Code(s): I48.91 - Unspecified atrial fibrillation Status: Acute Assessment and Plan: 07/06 evening: Patient went into SVT, status post tenderness and 6 mg and 12 mg, underlying rhythm was AFib RVR, converted to normal sinus rhythm with IV metoprolol x1 and increasing her sedation. Patient remained in sinus rhythm also the morning of 07/07/2024. 07/07: Started weaning her sedation again today, patient went to AFib RVR, -continue heparin infusion, -07/06; TSH level within normal limits, troponin level with no change since admission -EKG showed AFib RVR, discussed with cardiology, 07/08: In the evening patient went into AFib RVR again, requiring an amiodarone bolus, increased amiodarone infusion to 1 mg/min. Patient dropped her blood pressures and heart rate so amiodarone infusion was held. Patient was started on Robert-Synephrine. 07/09: Patient was hypertensive, Robert-Synephrine was discontinued. Cardiology recommended starting p.o. amiodarone which was ordered. Also recommended metoprolol which currently have not started because borderline blood pressures and she just came off Robert-Synephrine (2) Acute on chronic respiratory failure with hypoxia and hypercapnia: Code(s): J96.21 - Acute and chronic respiratory failure with hypoxia; J96.22 - Acute and chronic respiratory failure with hypercapnia Status: Acute Assessment and Plan: Acute on chronic respiratory failure secondary to severe COPD exacerbation. Community-acquired pneumonia although chest x-ray is not suggestive and patient is low procalcitonin level. WBC elevated MRSA screen negative 06/28/2024: Intubated in the ED 06/28: Blood cultures negative x2 -status post says 8 days of ceftriaxone -status post 5 days of doxycycline -DC vancomycin (06/29), MRSA screen negative 07/02: Patient did have high peak pressures, after switching her from propofol to fentanyl and Versed due to elevated triglycerides. She was started on Nimbex infusion which improved her oxygenation, respiratory status and improved air entry. 07/03: Remains on Nimbex, adequate air entry, peak pressures are within normal limits continue fentanyl Versed infusion for now, will start weaning Nimbex, will maintain RASS of 0 to -2 on sedation meds 07/04: Chest x-ray, ABGs reviewed, ventilator adjusted, increased respiratory rate 22 and increased FiO2 to 45%, maintain O2 sats greater than 90%. Have also asked the bedside RN to start weaning the Nimbex to off -07/05: Patient has prolonged expiratory phase, decrease respiratory rate, increased I to E ratio, increased tidal volume. Will repeat ABGs -Continue bronchodilators, -off Solu-Medrol -07/05 and 07/06: off all sedation, will try to place patient on SBT when she is more awake. If she requires any kind of sedation will start Precedex infusion. Patient did not tolerate being off on sedation and went into SVT and AFib RVR. Once sedation was placed back on patient converted to sinus rhythm with regular rate. 07/07: Sedation was weaned again this morning, patient was started on Precedex infusion site could place her on a a breathing trial to evaluate for extubation. Patient again went into AFib RVR, sedation was reinstated 07/08: Tolerating mechanical ventilation, ABGs look good, chest x-ray shows worsening haziness in left lung base, likely developing pneumonia. Patient is WBC count has increased to 20,000, will obtain blood cultures, start cefepime and vancomycin of possible ventilator associated pneumonia 07/09: discussed with iWlliam, updated him with patient's condition and plan of care. I discussed with him 6 worsening chest x-ray, possible developing pneumonia with elevated WBC 6. That she would require tracheostomy and PEG tube placement to which she was agreeable, he stated will have to do everything to keep her alive. Consulted Dr. Zhang, [phone] (cell), discussed with him regarding tracheostomy for the patient. He is going to be coming to evaluate the patient today (3) Acute exacerbation of chronic obstructive pulmonary disease: Code(s): J44.1 - Chronic obstructive pulmonary disease with (acute) exacerbation Status: Acute Assessment and Plan: Continue mechanical ventilation, bronchodilators, antibiotics, (4) Elevated troponin: Code(s): R77.8 - Other specified abnormalities of plasma proteins Status: Acute Assessment and Plan: Patient has elevated troponin likely secondary to demand ischemia from acute respiratory failure. EKG reviewed and does not show any ST elevation. Patient does not have any documented history of coronary disease. Troponins trending down Continue aspirin 81 mg p.o. daily and statin Appreciate cardiology evaluation and recommendation 06/29/2024: Echocardiogram Summary 1. The left ventricle is normal in size with thickened left ventricular rodríguez. The overall left ventricular systolic function appears preserved. Cannot rule out very mild hypokinesis of the apical wall. 2. The right ventricle is normal in size and systolic function. 3. The there is a small amount of pericardial effusion with no echocardiographic evidence of cardiac tamponade. (5) Hypothyroidism: Code(s): E03.9 - Hypothyroidism, unspecified Status: Acute Assessment and Plan: Continue levothyroxine. -07/06: TSH level - within normal limits (6) Electrolyte abnormality: Code(s): E87.8 - Other disorders of electrolyte and fluid balance, not elsewhere classified Status: Acute Assessment and Plan: Potassium levels within normal limits -appreciate Nephrology evaluation and recommendations (7) Elevated LFTs: Code(s): R79.89 - Other specified abnormal findings of blood chemistry Status: Acute Assessment and Plan: Right upper quadrant ultrasound was normal, status post cholecystectomy -hepatitis panel was within normal limit (8) RASHEL (acute kidney injury): Code(s): N17.9 - Acute kidney failure, unspecified Status: Acute Assessment and Plan: Acute kidney injury, likely related to hypotension, intravascular volume depletion, BUN elevated likely related to steroids -nephrology has been consulted and appreciate the evaluation and recommendation -discuss with Nephrology, will start albumin 25% x4 doses since she may be intravascularly depleted -monitor urine output, renal function electrolytes 07/06: Renal ultrasound: No hydronephrosis in either kidney. -urine lytes not reflective of prerenal picture -CKD levels elevated to 813 07/07: Patient may more urine overnight, creatinine trending down. Discuss with Nephrology, will give 1 L IV fluids over 10 hours 07/08: Urine output has improved, creatinine trending down. Low potassium levels will replete due to AFib RVR 07/09: Urine output is adequate, creatinine increased likely related to hypotension, AFib RVR. Will continue to monitor nephrology also following. Potassium levels are normal (9) Hyperglycemia: Code(s): R73.9 - Hyperglycemia, unspecified Status: Acute Assessment and Plan: Hyperglycemia likely related to tube feeds and or steroid -weaning steroid -continue Accu-Cheks and sliding scale insulin, -continue Lantus. (10) Anemia: Code(s): D64.9 - Anemia, unspecified Status: Acute Assessment and Plan: Patient dropped her hemoglobin to 8.3 from 10.9 (07/05) -07/06/2024: Stool occult was positive -iron panel did not show any iron deficiency, normal folate level -low vitamin B12 level, will give IM cyanocobalamin weekly x2 doses -continue Protonix to IV q.12 hours -appreciate GI evaluation , no endoscopy recommended at this time -hemoglobin remains stable (11) Encephalopathy: Code(s): G93.40 - Encephalopathy, unspecified Status: Acute Assessment and Plan: Patient opens her eyes but does not follow simple commands, upper extremities are flaccid, pupils are equal and reactive, patient grimaces to pain but does not withdraw to pain stimulus -07/08: stat CT scan of the brain: 1. No acute intracranial process.2. 8 mm calcified extra-axial mass overlying the left parietal lobe most consistent with a meningioma. -ammonia level <9 -continue to monitor Plan DVT prophylaxis -heparin infusion Stress ulcer prophylaxis -PPI IV q.12 hours Nutrition -tolerating tube feeds Code Status - Full Code Total Critical Care Time - 36 minutes -discussed with Nephrology and Cardiology 07/09: discussed with William, updated him with patient's condition and plan of care. I discussed with him 6 worsening chest x-ray, possible developing pneumonia with elevated WBC 6. That she would require tracheostomy and PEG tube placement to which she was agreeable, he stated will have to do everything to keep her alive. Consulted Dr. Zhang, [phone] (cell), discussed with him regarding tracheostomy for the patient. He is going to be coming to evaluate the patient today Due to a high probability of clinically significant, life threatening deterioration, the patient required my highest level of preparedness to intervene emergently and I personally spent this critical care time directly and personally managing the patient. This critical care time included obtaining a history; examining the patient; pulse oximetry; ordering and review of studies; arranging urgent treatment with development of a management plan; evaluation of patient's response to treatment; frequent reassessment; and discussions with other providers. It was exclusive of separately billable procedures and treating other patients and teaching time. Please see Assessment and Plan section and the rest of the note for further information on patient assessment and treatment This dictation may have been done utilizing a voice recognition system. Attempts have been made to correct errors. However, there may be uncorrected grammatical, spelling, and recognitions errors present. Subjective Date/time seen: 07/09/24 12:16 Interval history: Reason for consult: COPD exacerbation, acute hypercapnic respiratory failure, NSTEMI with elevated troponin 05/07: CT brain was negative, was done for encephalopathy 07/09/2024: Patient seen and examined the ICU, remains intubated on CMV mode of ventilation, peep of 5, 28% FiO2 . Sedated with fentanyl Versed infusion, opens her eyes but does not follow simple commands. Overnight patient went to AFib RVR, was given IV fluid bolus, she also received amiodarone bolus. MA infusion was increased to 1 mg/min. Patient was bradycardic this morning, amiodarone was held. Currently in sinus rhythm, rate controlled intermittently goes into AFib but remains in rate control. Urine output has been adequate, afebrile, worsening WBC count. Patient also was hypotensive and was started on Robert-Synephrine, which was discontinued this morning due to hypertension Review of Systems Review of Systems: ROS unobtainable: Yes unobtainable due to endotracheal tube, unobtainable due to medical condition and unobtainable due to mental status Exam Narrative: General: Pt is sedated and intubated and on mechanical ventilation Lungs/Chest: Trachea central, better air entry this morning, no wheezing or rales. Cardiac: Irregularly irregular, tachycardic. No murmurs Circulation: Pedal pulses are intact and symmetrical. Abdomen: Decreased bowel sounds. Obese. Soft. NT. ND. Extremities: No clubbing, cyanosis or edema. Warm : [place] in place Neurologic: Intubated, sedated opens her eyes but does not follow simple commands, grimaces to pain but does not withdraw. Upper extremities were flaccid. Pupils equal and reactive. Objective Data Vital Signs Vital Signs: Vital Signs - 24 hr 07/08/24 13:58 07/08/24 14:00 07/08/24 14:00 Temperature Pulse Rate 71 71 71 Respiratory Rate 18 18 Blood Pressure Pulse Oximetry 98 Oxygen Delivery Mechanical Ventilation Fraction of Inspired Oxygen 40 07/08/24 14:00 07/08/24 14:00 07/08/24 14:00 Temperature 99.2 F Pulse Rate 71 71 71 Respiratory Rate 18 Blood Pressure 109/53 L 109/53 L Pulse Oximetry 99 Oxygen Delivery Fraction of Inspired Oxygen 07/08/24 14:04 07/08/24 14:25 07/08/24 16:00 Temperature 99.1 F Pulse Rate 71 77 75 Respiratory Rate 18 18 18 Blood Pressure 115/53 L Pulse Oximetry 97 Oxygen Delivery Fraction of Inspired Oxygen 07/08/24 16:00 07/08/24 16:00 07/08/24 16:00 Temperature Pulse Rate 75 75 75 Respiratory Rate 18 18 Blood Pressure 115/52 L Pulse Oximetry Oxygen Delivery Fraction of Inspired Oxygen 07/08/24 16:00 07/08/24 16:00 07/08/24 16:00 Temperature Pulse Rate 74 73 Respiratory Rate 18 Blood Pressure Pulse Oximetry 97 Oxygen Delivery Mechanical Ventilation Fraction of Inspired Oxygen 40 40 07/08/24 16:38 07/08/24 17:44 07/08/24 17:57 Temperature Pulse Rate 75 89 74 Respiratory Rate Blood Pressure 116/57 L 116/57 L Pulse Oximetry 96 Oxygen Delivery Mechanical Ventilation Fraction of Inspired Oxygen 40 07/08/24 18:00 07/08/24 18:00 07/08/24 18:00 Temperature Pulse Rate 81 81 81 Respiratory Rate 18 18 Blood Pressure 117/51 L Pulse Oximetry Oxygen Delivery Fraction of Inspired Oxygen 07/08/24 18:00 07/08/24 18:00 07/08/24 20:00 Temperature 99.3 F Pulse Rate 81 81 83 Respiratory Rate 18 18 Blood Pressure 117/51 L Pulse Oximetry 97 Oxygen Delivery Fraction of Inspired Oxygen 07/08/24 20:00 07/08/24 20:00 07/08/24 20:00 Temperature Pulse Rate 83 83 Respiratory Rate 18 Blood Pressure 107/52 L Pulse Oximetry Oxygen Delivery Fraction of Inspired Oxygen 40 07/08/24 20:00 07/08/24 20:00 07/08/24 20:00 Temperature 99.4 F Pulse Rate 83 104 H Respiratory Rate 18 Blood Pressure 107/52 L Pulse Oximetry 99 Oxygen Delivery Mechanical Ventilation Fraction of Inspired Oxygen 40 07/08/24 20:05 07/08/24 20:44 07/08/24 20:45 Temperature Pulse Rate 126 H 146 H 146 H Respiratory Rate Blood Pressure 120/88 120/88 Pulse Oximetry 99 Oxygen Delivery Mechanical Ventilation Fraction of Inspired Oxygen 40 07/08/24 20:49 07/08/24 20:55 07/08/24 20:56 Temperature Pulse Rate 132 H 125 H 123 H Respiratory Rate Blood Pressure 85/62 L 90/60 L Pulse Oximetry Oxygen Delivery Fraction of Inspired Oxygen 07/08/24 21:32 07/08/24 21:45 07/08/24 21:47 Temperature Pulse Rate 119 H 58 L Respiratory Rate 18 18 Blood Pressure Pulse Oximetry Oxygen Delivery Fraction of Inspired Oxygen 35 07/08/24 21:49 07/08/24 22:00 07/08/24 22:00 Temperature 99.5 F Pulse Rate 58 L 57 L 57 L Respiratory Rate 18 Blood Pressure 67/41 L 78/44 L Pulse Oximetry 99 Oxygen Delivery Fraction of Inspired Oxygen 07/08/24 22:00 07/08/24 22:00 07/08/24 22:00 Temperature Pulse Rate 57 L 57 L 57 L Respiratory Rate 18 18 Blood Pressure 78/44 L Pulse Oximetry Oxygen Delivery Fraction of Inspired Oxygen 07/08/24 23:11 07/08/24 23:27 07/08/24 23:45 Temperature Pulse Rate 55 L 54 L 55 L Respiratory Rate 18 Blood Pressure 95/48 L Pulse Oximetry 97 Oxygen Delivery Mechanical Ventilation Fraction of Inspired Oxygen 35 07/08/24 23:45 07/08/24 23:47 07/09/24 00:00 Temperature 99.2 F Pulse Rate 55 L 55 L 55 L Respiratory Rate 18 18 Blood Pressure 105/38 L 122/44 L Pulse Oximetry 97 Oxygen Delivery Fraction of Inspired Oxygen 07/09/24 00:00 07/09/24 00:00 07/09/24 00:00 Temperature Pulse Rate 55 L Respiratory Rate 18 Blood Pressure Pulse Oximetry Oxygen Delivery Mechanical Ventilation Fraction of Inspired Oxygen 35 35 07/09/24 00:00 07/09/24 00:00 07/09/24 00:00 Temperature Pulse Rate 55 L 55 L 55 L Respiratory Rate 18 Blood Pressure 122/44 L 122/44 L Pulse Oximetry Oxygen Delivery Fraction of Inspired Oxygen 07/09/24 00:00 07/09/24 01:45 07/09/24 02:00 Temperature Pulse Rate 55 L 57 L 56 L Respiratory Rate Blood Pressure 84/40 L 95/45 L Pulse Oximetry Oxygen Delivery Fraction of Inspired Oxygen 07/09/24 02:00 07/09/24 02:00 07/09/24 02:00 Temperature 99.7 F H Pulse Rate 56 L 56 L 56 L Respiratory Rate 18 18 18 Blood Pressure 95/45 L Pulse Oximetry 98 Oxygen Delivery Fraction of Inspired Oxygen 07/09/24 02:00 07/09/24 02:00 07/09/24 02:15 Temperature Pulse Rate 56 L 56 L 57 L Respiratory Rate Blood Pressure 95/45 L 86/45 L Pulse Oximetry Oxygen Delivery Fraction of Inspired Oxygen 07/09/24 02:15 07/09/24 02:15 07/09/24 02:23 Temperature Pulse Rate 58 L 58 L 58 L Respiratory Rate 18 18 Blood Pressure Pulse Oximetry 96 Oxygen Delivery Mechanical Ventilation Fraction of Inspired Oxygen 35 07/09/24 02:36 07/09/24 03:00 07/09/24 03:15 Temperature Pulse Rate 59 L 60 60 Respiratory Rate Blood Pressure 116/59 L 86/40 L 97/46 L Pulse Oximetry Oxygen Delivery Fraction of Inspired Oxygen 07/09/24 03:30 07/09/24 03:45 07/09/24 04:00 Temperature 99.9 F H Pulse Rate 62 62 61 Respiratory Rate 18 Blood Pressure 95/49 L 96/51 L 111/31 L Pulse Oximetry 99 Oxygen Delivery Fraction of Inspired Oxygen 07/09/24 04:00 07/09/24 04:00 07/09/24 04:00 Temperature Pulse Rate 61 Respiratory Rate Blood Pressure 111/31 L Pulse Oximetry Oxygen Delivery Mechanical Ventilation Fraction of Inspired Oxygen 35 35 07/09/24 04:00 07/09/24 04:00 07/09/24 04:00 Temperature Pulse Rate 61 61 61 Respiratory Rate 18 18 Blood Pressure 111/31 L Pulse Oximetry Oxygen Delivery Fraction of Inspired Oxygen 07/09/24 04:00 07/09/24 04:15 07/09/24 04:15 Temperature Pulse Rate 60 60 60 Respiratory Rate 18 Blood Pressure 115/60 Pulse Oximetry Oxygen Delivery Fraction of Inspired Oxygen 07/09/24 04:15 07/09/24 04:56 07/09/24 06:00 Temperature Pulse Rate 61 67 64 Respiratory Rate 18 Blood Pressure 103/56 L Pulse Oximetry 93 Oxygen Delivery Mechanical Ventilation Fraction of Inspired Oxygen 35 07/09/24 06:00 07/09/24 06:00 07/09/24 06:00 Temperature Pulse Rate 64 64 64 Respiratory Rate 18 18 Blood Pressure 103/56 L Pulse Oximetry Oxygen Delivery Fraction of Inspired Oxygen 07/09/24 06:00 07/09/24 06:00 07/09/24 06:30 Temperature 99.5 F Pulse Rate 64 64 64 Respiratory Rate 18 Blood Pressure 103/56 L 166/58 H Pulse Oximetry 93 Oxygen Delivery Fraction of Inspired Oxygen 07/09/24 06:30 07/09/24 06:34 07/09/24 06:34 Temperature Pulse Rate 64 64 64 Respiratory Rate 18 18 Blood Pressure 166/58 H Pulse Oximetry Oxygen Delivery Fraction of Inspired Oxygen 07/09/24 07:00 07/09/24 07:01 07/09/24 08:00 Temperature Pulse Rate 64 64 Respiratory Rate Blood Pressure 143/54 H 143/54 H Pulse Oximetry Oxygen Delivery Fraction of Inspired Oxygen 35 07/09/24 08:00 07/09/24 08:00 07/09/24 08:00 Temperature Pulse Rate 63 63 Respiratory Rate 18 Blood Pressure 114/51 L Pulse Oximetry Oxygen Delivery Mechanical Ventilation Fraction of Inspired Oxygen 07/09/24 08:00 07/09/24 08:00 07/09/24 08:00 Temperature 99.5 F Pulse Rate 63 63 63 Respiratory Rate 18 18 Blood Pressure 114/51 L Pulse Oximetry 94 Oxygen Delivery Fraction of Inspired Oxygen 07/09/24 08:33 07/09/24 08:38 07/09/24 08:41 Temperature Pulse Rate 65 65 65 Respiratory Rate 18 16 Blood Pressure Pulse Oximetry 97 Oxygen Delivery Mechanical Ventilation Fraction of Inspired Oxygen 35 07/09/24 08:47 07/09/24 08:50 07/09/24 08:55 Temperature Pulse Rate 66 79 72 Respiratory Rate Blood Pressure 168/68 H 177/51 H 176/60 H Pulse Oximetry Oxygen Delivery Fraction of Inspired Oxygen 07/09/24 09:00 07/09/24 09:05 07/09/24 09:07 Temperature Pulse Rate 72 76 83 Respiratory Rate Blood Pressure 162/58 H 153/60 H 154/66 H Pulse Oximetry Oxygen Delivery Fraction of Inspired Oxygen 07/09/24 09:08 07/09/24 09:10 07/09/24 10:00 Temperature 99.5 F Pulse Rate 77 71 73 Respiratory Rate 15 Blood Pressure 154/60 H 154/60 H 134/45 L Pulse Oximetry 93 Oxygen Delivery Fraction of Inspired Oxygen 07/09/24 10:00 07/09/24 10:00 07/09/24 10:00 Temperature Pulse Rate 73 73 73 Respiratory Rate 15 15 Blood Pressure 134/45 L Pulse Oximetry Oxygen Delivery Fraction of Inspired Oxygen 07/09/24 10:00 07/09/24 10:00 07/09/24 10:57 Temperature Pulse Rate 73 73 73 Respiratory Rate Blood Pressure 134/45 L Pulse Oximetry 96 Oxygen Delivery Mechanical Ventilation Fraction of Inspired Oxygen 35 Intake/Output Intake/Output: Intake & Output 07/06/24 07/07/24 07/08/24 07/09/24 23:59 23:59 23:59 23:59 Intake Total 2322.3 2150.4 3331.3 1368.5 Output Total 1150 1250 1350 275 Balance 1172.3 900.4 1981.3 1093.5 Meds/Results Medications: Active Medications Generic Name Dose Route Start Last Admin Trade Name Freq PRN Reason Stop Dose Admin Albuterol/Ipratropium 3 ml 06/29/24 02:00 07/09/24 08:33 Ipratropium 0.5 Mg/Albuterol Sulfate 2.5 Mg Ampul.Neb 3 Ml INHALATION 3 ml Q6HRT BARBARA Administration Aspirin 81 mg 07/01/24 08:00 07/09/24 08:50 Aspirin 81 Mg Chewable Tablet PO 81 mg DAILY@0800 BARBARA Administration Atorvastatin Calcium 40 mg 06/29/24 09:00 07/09/24 08:50 Atorvastatin 40 Mg Tablet PO 40 mg DAILY BARBARA Administration Cyanocobalamin 1,000 mcg 07/07/24 12:00 07/07/24 13:35 Cyanocobalamin Inj 1,000 Mcg/Ml Vial IM 07/14/24 09:01 1,000 mcg WEEKLY BARBARA Administration Dextrose 12.5 gm 06/29/24 08:08 Dextrose 50% 25 Gm/50 Ml Syringe IV PUSH PRN PRN Hypoglycemia Protocol Glucagon 1 mg 06/29/24 08:08 Glucagon For Inj 1 Mg Vial IM PRN PRN Hypoglycemia Protocol Glucose 15 gm 06/29/24 08:08 Glucose Oral Gel 15 Gm Of Glucse In 37.5 Gm Tube PO PRN PRN Hypoglycemia Protocol Heparin Sodium (Porcine) 5,000 units 07/07/24 11:24 Heparin Sodium 5,000 Units/Ml Vial IV PUSH PRN PRN aPTT less than 55 seconds Heparin Sodium (Porcine) 2,500 units 07/07/24 11:24 07/09/24 07:21 Heparin Sodium 5,000 Units/Ml Vial IV PUSH 2,500 units PRN PRN Administration aPTT 55 - 70 seconds Hydralazine HCl 10 mg 07/06/24 16:42 07/06/24 17:03 Hydralazine Hcl 20 Mg/Ml Vial IV PUSH 10 mg Q4H PRN Administration Blood Pressure - High Dextrose 1,000 mls @ 100 mls/hr 06/29/24 08:08 Dextrose 5% 1,000 Ml IVPB PRN PRN Hypoglycemia Protocol Fentanyl Citrate 2,500 mcg in 250 mls @ 5 mls/hr 07/06/24 17:55 07/09/24 10:00 Fentanyl 2,500 Mcg/Ns 250 Ml IV CONT 50 mcg/hr .Q50H BARBARA 5 mls/hr Titration Protocol 50 MCG/HR Midazolam HCl 100 mg in 100 mls @ 2 mls/hr 07/06/24 17:55 07/09/24 10:00 Versed 100 Mg/Ns 100 Ml IV CONT 2 mg/hr .Q50H BARBARA 2 mls/hr Titration Protocol 2 MG/HR Heparin Sodium/Dextrose 25,000 units in 250 mls @ 5 mls/hr 07/07/24 11:25 07/09/24 10:00 Heparin Sodium/D5w 100 Units/Ml IV CONT 500 units/hr .Q24H BARBARA 5 mls/hr Titration Protocol 500 UNITS/HR Cefepime HCl 1 gm in 50 mls @ 100 mls/hr 07/08/24 11:00 07/09/24 10:20 Maxipime 1 Gm/Ns 50 Ml IVPB Infused Q12HR BARBARA Infusion Phenylephrine HCl 50 mg/ 250 ml in 250 mls @ 0 mls/hr 07/08/24 23:10 07/09/24 10:00 Dextrose IV CONT 0 mcg/min .Q0M BARBARA 0 mls/hr Titration Protocol Insulin Aspart 3 - 6 units 06/29/24 12:00 07/09/24 11:39 Insulin Aspart (*Bkc) 100 Units/Ml SUB-Q Not Given Q6HR [facility] Protocol Insulin Glargine 8 units 07/06/24 09:00 07/09/24 08:53 Insulin Glargine (*Bkc) 100 Units/Ml SUB-Q 8 units DAILY BARBARA Administration Levothyroxine Sodium 50 mcg 06/30/24 06:30 07/09/24 06:32 Levothyroxine Sodium 50 Mcg Tablet FEED TUBE 50 mcg DAILY@0630 BARBARA Administration Multi-Ingred Cream/Lotion/Oil/Oint 1 applic 06/29/24 09:00 07/09/24 08:50 Mineral Oil/White Petrolatum Ointment EACH EYE 1 applic Q12HR BARBARA Administration Pantoprazole Sodium 40 mg 07/06/24 21:00 07/09/24 08:50 Pantoprazole Sodium Iv 40 Mg Vial IV PUSH 40 mg Q12HR BARBARA Administration Sodium Chloride 10 ml 06/29/24 14:00 07/09/24 06:32 Central Line Flush IV PUSH 10 ml Q8HR BARBARA Administration Sodium Chloride 10 ml 06/29/24 12:40 Central Line Flush IV PUSH PRN PRN with TPN bag changes Sodium Chloride 20 ml 06/29/24 12:40 Central Line Flush IV PUSH PRN PRN after blood draws Vancomycin HCl 1 each 07/08/24 10:48 Vancomycin For Acute Kidney Injury IVPB PRN PRN Vancomycin Protocol Radiology Results: ITS Impressions Abdomen X-Ray 06/28/24 20:03 IMPRESSION: Nasogastric tube in good position and ready for immediate use. Abdomen Ultrasound 07/03/24 14:12 IMPRESSION: 1. Normal right upper quadrant ultrasound status post cholecystectomy. Renal Ultrasound 07/06/24 08:30 IMPRESSION: 1. No hydronephrosis in either kidney. Head CT 07/08/24 10:08 IMPRESSION: 1. No acute intracranial process. 2. 8 mm calcified extra-axial mass overlying the left parietal lobe most consistent with a meningioma. Chest X-Ray 07/09/24 08:00 Impression: Persistent haziness left lung base, suspicious for pneumonia versus possibly asymmetric pulmonary edema. Underlying COPD. Stable support tubes. Labs Labs: Laboratory Results - last 24 hr 07/05/24 07/06/24 07/08/24 16:40 06:40 11:28 WBC RBC Hgb Hct MCV MCH MCHC RDW Plt Count MPV Immature Gran % (Auto) Neut % (Auto) Lymph % (Auto) [place] % (Auto) Eos % (Auto) Baso % (Auto) Lymph # (Auto) [place] # (Auto) Eos # (Auto) Baso # (Auto) Abs Immat Gran (auto) Absolute Neuts (auto) Absolute Nucleated RBC Nucleated RBC % Platelet Estimate Hypochromasia Poikilocytosis Anisocytosis Ovalocytes Schistocytes APTT Puncture Site ABG pH ABG pCO2 ABG pO2 ABG PO2/FiO2 Ratio ABG HCO3 ABG O2 Saturation ABG O2 Content ABG Base Excess A-a Gradient Oxyhemoglobin Carboxyhemoglobin Methemoglobin Reduced Hemoglobin Total Hemoglobin O2 Delivery Device O2 Liters/Min Minute Volume Vent Rate Vent Mode FiO2 Tidal Volume PEEP Peak Inspir Pressure Pressure Support Sodium Potassium Chloride Carbon Dioxide Anion Gap BUN Creatinine Estim Creat Clear Calc Estimated GFR Glucose POC Capillary Glucose Calcium Phosphorus Magnesium Total Bilirubin AST ALT Alkaline Phosphatase Ammonia Total Protein Albumin Aldosterone <1 Urine Osmolality TNP Ur Random Creatinine TNP U Random Chloride/Creat TNP Nasal MRSA (PCR) Not detected Random Vancomycin Influenza A (RT-PCR) Negative Influenza B (RT-PCR) Negative RSV (RT-PCR) Negative SARS-CoV-2 RNA (RT-PCR) Negative 07/08/24 07/08/24 07/08/24 13:58 16:52 17:40 WBC RBC Hgb Hct MCV MCH MCHC RDW Plt Count MPV Immature Gran % (Auto) Neut % (Auto) Lymph % (Auto) [place] % (Auto) Eos % (Auto) Baso % (Auto) Lymph # (Auto) [place] # (Auto) Eos # (Auto) Baso # (Auto) Abs Immat Gran (auto) Absolute Neuts (auto) Absolute Nucleated RBC Nucleated RBC % Platelet Estimate Hypochromasia Poikilocytosis Anisocytosis Ovalocytes Schistocytes APTT 107.9 H Puncture Site ABG pH ABG pCO2 ABG pO2 ABG PO2/FiO2 Ratio ABG HCO3 ABG O2 Saturation ABG O2 Content ABG Base Excess A-a Gradient Oxyhemoglobin Carboxyhemoglobin Methemoglobin Reduced Hemoglobin Total Hemoglobin O2 Delivery Device O2 Liters/Min Minute Volume Vent Rate Vent Mode FiO2 Tidal Volume PEEP Peak Inspir Pressure Pressure Support Sodium Potassium Chloride Carbon Dioxide Anion Gap BUN Creatinine Estim Creat Clear Calc Estimated GFR Glucose POC Capillary Glucose 198 H Calcium Phosphorus Magnesium Total Bilirubin AST ALT Alkaline Phosphatase Ammonia < 9 L Total Protein Albumin Aldosterone Urine Osmolality Ur Random Creatinine U Random Chloride/Creat Nasal MRSA (PCR) Random Vancomycin Influenza A (RT-PCR) Influenza B (RT-PCR) RSV (RT-PCR) SARS-CoV-2 RNA (RT-PCR) 07/08/24 07/09/24 07/09/24 23:21 01:10 04:54 WBC 29.1 H RBC 2.68 L Hgb 7.8 L Hct 24.1 L MCV 89.9 MCH 29.1 MCHC 32.4 RDW 18.6 H Plt Count 260 MPV 11.9 H Immature Gran % (Auto) 1.8 H Neut % (Auto) 79.6 H Lymph % (Auto) 9.8 L [place] % (Auto) 7.8 Eos % (Auto) 0.8 Baso % (Auto) 0.2 Lymph # (Auto) 2.84 [place] # (Auto) 2.3 H Eos # (Auto) 0.2 Baso # (Auto) 0.1 Abs Immat Gran (auto) 0.51 H Absolute Neuts (auto) 23.2 H Absolute Nucleated RBC 0.100 H Nucleated RBC % 0.3 H Platelet Estimate Adequate Hypochromasia 1+ Poikilocytosis 2+ Anisocytosis 1+ Ovalocytes 1+ Schistocytes 1+ APTT 114.2 H 56.5 H Puncture Site ABG pH ABG pCO2 ABG pO2 ABG PO2/FiO2 Ratio ABG HCO3 ABG O2 Saturation ABG O2 Content ABG Base Excess A-a Gradient Oxyhemoglobin Carboxyhemoglobin Methemoglobin Reduced Hemoglobin Total Hemoglobin O2 Delivery Device O2 Liters/Min Minute Volume Vent Rate Vent Mode FiO2 Tidal Volume PEEP Peak Inspir Pressure Pressure Support Sodium 144 Potassium 3.9 Chloride 106 Carbon Dioxide 28 Anion Gap 10 BUN 125 H Creatinine 1.76 H Estim Creat Clear Calc 22 Estimated GFR 34 L Glucose 152 H POC Capillary Glucose 173 H Calcium 8.8 Phosphorus 4.2 Magnesium 2.7 H Total Bilirubin 0.4 AST 42 H ALT 50 H Alkaline Phosphatase 86 Ammonia Total Protein 5.0 L Albumin 3.3 L Aldosterone Urine Osmolality Ur Random Creatinine U Random Chloride/Creat Nasal MRSA (PCR) Random Vancomycin 10.2 Influenza A (RT-PCR) Influenza B (RT-PCR) RSV (RT-PCR) SARS-CoV-2 RNA (RT-PCR) 07/09/24 07/09/24 05:05 11:39 WBC RBC Hgb Hct MCV MCH MCHC RDW Plt Count MPV Immature Gran % (Auto) Neut % (Auto) Lymph % (Auto) [place] % (Auto) Eos % (Auto) Baso % (Auto) Lymph # (Auto) [place] # (Auto) Eos # (Auto) Baso # (Auto) Abs Immat Gran (auto) Absolute Neuts (auto) Absolute Nucleated RBC Nucleated RBC % Platelet Estimate Hypochromasia Poikilocytosis Anisocytosis Ovalocytes Schistocytes APTT Puncture Site Right radial ABG pH 7.463 H ABG pCO2 36.9 ABG pO2 60.9 L ABG PO2/FiO2 Ratio 1.74 ABG HCO3 25.8 ABG O2 Saturation 92.8 L ABG O2 Content 10.3 L ABG Base Excess 2.0 A-a Gradient 145.8 Oxyhemoglobin 89.4 L Carboxyhemoglobin 0.8 Methemoglobin 0.3 Reduced Hemoglobin 9.5 H Total Hemoglobin 8.1 L O2 Delivery Device Ventilator O2 Liters/Min Not Reportable Minute Volume Not Reportable Vent Rate 18 Vent Mode Cmv FiO2 35 Tidal Volume 480 PEEP 5 Peak Inspir Pressure Not Reportable Pressure Support Not Reportable Sodium Potassium Chloride Carbon Dioxide Anion Gap BUN Creatinine Estim Creat Clear Calc Estimated GFR Glucose POC Capillary Glucose 158 H Calcium Phosphorus Magnesium Total Bilirubin AST ALT Alkaline Phosphatase Ammonia Total Protein Albumin Aldosterone Urine Osmolality Ur Random Creatinine U Random Chloride/Creat Nasal MRSA (PCR) Random Vancomycin Influenza A (RT-PCR) Influenza B (RT-PCR) RSV (RT-PCR) SARS-CoV-2 RNA (RT-PCR) Quality VTE Prophylaxis VTE prophylaxis: pharmacologic ordered
--- NOTE | 2024-07-09 12:21 | P.PNNP_ITS ---
Progress Note: A&P Assessment and Plan (1) RASHEL (acute kidney injury): Code(s): N17.9 - Acute kidney failure, unspecified Status: Acute Assessment and Plan: * continues to fluctuate * as noted by labs (since 07/05) * etiology not clear but suspicion falls on: * possibly due to relative hypotension - noted systolic BP in the high 80s (on 07/04) * intravascular volume depletion(?) * other(?) * reasonable urine output noted * evaluation to date noted: * normal renal ultrasound * urine electrolytes slightly prerenal * rare urine eosinophils * CPK mildly elevated - follow trend * moderate proteinuria * s/p IV albumin (on 07/06) for volume expansion * s/p IVF trial(NS for a total of 1L) on 07/07 * BUN elevated: * suspect due to previous steroid use * possibly catabolic state as well(?) * no evidence of GI bleed * follow trend of repeat labs and UOP (2) Hyperkalemia: Code(s): E87.5 - Hyperkalemia Status: Acute Assessment and Plan: * stable at this time (if now low) * seemed to start ~ 07/02/24 by lab trend * off K+ supplements * no other culprit medications noted * evaluation to date noted: * renal ultrasound without obstruction * renin and aldosterone levels pending * TSH okay * cortisol lowish (was getting steroids); consider stim test after recheck * CPK mildly elevated * continue medical management as needed * #1 complicates evaluation * follow repeat K+ levels (3) Acute on chronic respiratory failure with hypoxia and hypercapnia: Code(s): J96.21 - Acute and chronic respiratory failure with hypoxia; J96.22 - Acute and chronic respiratory failure with hypercapnia Status: Acute Assessment and Plan: * presumably due to COPD exacerbation * complicated by known history of chronic hypoxic/hypercapnic respiratory failure and CHERYL * on ventilator support * on antibiotics, bronchodilators, and steroids * weaned off steroids * ventilator weaning as tolerated (4) Acute exacerbation of chronic obstructive pulmonary disease: Code(s): J44.1 - Chronic obstructive pulmonary disease with (acute) exacerbation Status: Acute Assessment and Plan: * presumed etiology of #3 * continue current therapy (5) Elevated troponin: Code(s): R77.8 - Other specified abnormalities of plasma proteins Status: Acute Assessment and Plan: * felt to be demand ischemia from acute respiratory failure * EKG noted * Cardiology recommendations noted * recent Echo noted (on 06/29): * left ventricular systolic function appears preserved * right ventricle is normal in size and systolic function. * small amount of pericardial effusion with no evidence of cardiac tamponade * ischemic evaluation when more stable (6) Atrial fibrillation with RVR: Code(s): I48.91 - Unspecified atrial fibrillation Status: Acute Assessment and Plan: * SVT noted on evening of 07.06 * s/p IV andenosine with underlying rhythm noted to be AFib RVR * converted to normal sinus rhythm with IV metoprolol x 1 * on 07/07, with weaning of sedation, patient went to AFib RVR again * now on oral metoprolol and anticoagulation (heparin gtt) * on amiodarone gtt as well * Cardiology following (7) Anemia: Code(s): D64.9 - Anemia, unspecified Status: Acute Assessment and Plan: * due to RASHEL and acute illness * however, hemooccult positive * anemia studies without iron deficiency * normal folate * low B12 noted -- IM B12 given * on PPI * GI recommendations noted * follow trend of H/H (8) Elevated LFTs: Code(s): R79.89 - Other specified abnormal findings of blood chemistry Status: Acute Assessment and Plan: * noted on testing since 07/03 * RUQ u/s was normal - status post cholecystectomy * hepatitis panel normal * improving - follow trend Will continue to follow. L Subjective Date/time seen: 07/09/24 12:21 Interval history: Follow-up for acute kidney injury/acute renal failure. Renal function/creatinine a bit worse by labs today despite reasonable urine output-- remains intubated/sedated and on mechanical ventilation; issues with atrial fibrillation with RVR overnight with improvement noted with bolus of IVFs and amiodarone; noted issues with hypotension overnight with transient requirement of harinder-synephrine which has since been weaned off by this morning due to development of hypertension; no apparent distress currently. Exam 2 Narrative: General: elderly but WD/WN female intubated/sedated on mechanical ventilation Heart: normal S1 and S2; no rub Lungs: coarse breath sounds Abdomen: soft, nontender, nondistended, decreased bowel sounds Extremities: no cyanosis or clubbing; no edema Skin: no nodules Objective Data Vital Signs Vital Signs: Vital Signs Temp Pulse Resp BP Pulse Ox O2 Del Method FiO2 07/09/24 12:00 99.2 F 79 16 101/67 93 35 07/09/24 10:57 73 96 Mechanical Ventilation 35 07/09/24 10:00 73 07/09/24 10:00 73 134/45 L 07/09/24 10:00 73 15 07/09/24 10:00 73 134/45 L 07/09/24 10:00 73 15 07/09/24 10:00 99.5 F 73 15 134/45 L 93 07/09/24 09:10 71 154/60 H 07/09/24 09:08 77 154/60 H 07/09/24 09:07 83 154/66 H 07/09/24 09:05 76 153/60 H 07/09/24 09:00 72 162/58 H 07/09/24 08:55 72 176/60 H 07/09/24 08:50 79 177/51 H 07/09/24 08:47 66 168/68 H 07/09/24 08:41 65 16 07/09/24 08:38 65 97 Mechanical Ventilation 35 07/09/24 08:33 65 18 07/09/24 08:00 63 07/09/24 08:00 99.5 F 63 18 114/51 L 94 07/09/24 08:00 63 18 07/09/24 08:00 63 114/51 L 07/09/24 08:00 63 18 07/09/24 08:00 Mechanical Ventilation 07/09/24 08:00 35 07/09/24 07:01 64 143/54 H 07/09/24 07:00 64 143/54 H 07/09/24 06:34 64 18 07/09/24 06:34 64 18 07/09/24 06:30 64 166/58 H 07/09/24 06:30 64 166/58 H 07/09/24 06:00 64 07/09/24 06:00 99.5 F 64 18 103/56 L 93 07/09/24 06:00 64 103/56 L 07/09/24 06:00 64 18 07/09/24 06:00 64 18 07/09/24 06:00 64 103/56 L 07/09/24 04:56 67 93 Mechanical Ventilation 35 07/09/24 04:15 61 18 07/09/24 04:15 60 18 07/09/24 04:15 60 115/60 07/09/24 04:00 60 07/09/24 04:00 61 111/31 L 07/09/24 04:00 61 18 07/09/24 04:00 61 18 07/09/24 04:00 61 111/31 L 07/09/24 04:00 Mechanical Ventilation 35 07/09/24 04:00 35 07/09/24 04:00 99.9 F H 61 18 111/31 L 99 07/09/24 03:45 62 96/51 L 07/09/24 03:30 62 95/49 L 07/09/24 03:15 60 97/46 L 07/09/24 03:00 60 86/40 L 07/09/24 02:36 59 L 116/59 L 07/09/24 02:23 58 L 18 07/09/24 02:15 58 L 96 Mechanical Ventilation 35 07/09/24 02:15 58 L 18 07/09/24 02:15 57 L 86/45 L 07/09/24 02:00 56 L 95/45 L 07/09/24 02:00 56 L 07/09/24 02:00 99.7 F H 56 L 18 95/45 L 98 07/09/24 02:00 56 L 18 07/09/24 02:00 56 L 18 07/09/24 02:00 56 L 95/45 L 07/09/24 01:45 57 L 84/40 L 07/09/24 00:00 55 L 07/09/24 00:00 55 L 122/44 L 07/09/24 00:00 55 L 122/44 L 07/09/24 00:00 55 L 18 07/09/24 00:00 55 L 18 07/09/24 00:00 Mechanical Ventilation 35 07/09/24 00:00 35 07/09/24 00:00 99.2 F 55 L 18 122/44 L 97 07/08/24 23:47 55 L 105/38 L 07/08/24 23:45 55 L 18 07/08/24 23:45 55 L 18 07/08/24 23:27 54 L 95/48 L 07/08/24 23:11 55 L 97 Mechanical Ventilation 35 07/08/24 22:00 57 L 78/44 L 07/08/24 22:00 57 L 18 07/08/24 22:00 57 L 18 07/08/24 22:00 57 L 07/08/24 22:00 99.5 F 57 L 18 78/44 L 99 07/08/24 21:49 58 L 67/41 L 07/08/24 21:47 58 L 18 07/08/24 21:45 35 07/08/24 21:32 119 H 18 07/08/24 20:56 123 H 90/60 L 07/08/24 20:55 125 H 85/62 L 07/08/24 20:49 132 H 07/08/24 20:45 146 H 120/88 07/08/24 20:44 146 H 120/88 07/08/24 20:05 126 H 99 Mechanical Ventilation 40 07/08/24 20:00 104 H 07/08/24 20:00 Mechanical Ventilation 40 07/08/24 20:00 99.4 F 83 18 107/52 L 99 07/08/24 20:00 40 07/08/24 20:00 83 107/52 L 07/08/24 20:00 83 18 07/08/24 20:00 83 18 07/08/24 18:00 99.3 F 81 18 117/51 L 97 07/08/24 18:00 81 07/08/24 18:00 81 117/51 L 07/08/24 18:00 81 18 07/08/24 18:00 81 18 07/08/24 17:57 74 116/57 L 07/08/24 17:44 89 116/57 L 07/08/24 16:38 75 96 Mechanical Ventilation 40 07/08/24 16:00 73 18 97 Mechanical Ventilation 40 07/08/24 16:00 40 07/08/24 16:00 74 07/08/24 16:00 75 115/52 L 07/08/24 16:00 75 18 07/08/24 16:00 75 18 07/08/24 16:00 99.1 F 75 18 115/53 L 97 Intake/Output Intake/Output: Intake & Output 07/06/24 07/07/24 07/08/24 07/09/24 23:59 23:59 23:59 23:59 Intake Total 2322.3 2150.4 3331.3 1416.5 Output Total 1150 1250 1350 275 Balance 1172.3 900.4 1981.3 1141.5 Meds/Results Medications: Active Medications Generic Name Dose Route Start Last Admin Trade Name Freq PRN Reason Stop Dose Admin Albuterol/Ipratropium 3 ml 06/29/24 02:00 07/09/24 14:33 Ipratropium 0.5 Mg/Albuterol Sulfate 2.5 Mg Ampul.Neb 3 Ml INHALATION 3 ml Q6HRT BARBARA Administration Amiodarone HCl 400 mg 07/09/24 12:20 07/09/24 12:38 Amiodarone Hcl 200 Mg Tablet PO 400 mg Q12HR BARBARA Administration Aspirin 81 mg 07/01/24 08:00 07/09/24 08:50 Aspirin 81 Mg Chewable Tablet PO 81 mg DAILY@0800 BARBARA Administration Atorvastatin Calcium 40 mg 06/29/24 09:00 07/09/24 08:50 Atorvastatin 40 Mg Tablet PO 40 mg DAILY BARBARA Administration Cyanocobalamin 1,000 mcg 07/07/24 12:00 07/07/24 13:35 Cyanocobalamin Inj 1,000 Mcg/Ml Vial IM 07/14/24 09:01 1,000 mcg WEEKLY BARBARA Administration Dextrose 12.5 gm 06/29/24 08:08 Dextrose 50% 25 Gm/50 Ml Syringe IV PUSH PRN PRN Hypoglycemia Protocol Glucagon 1 mg 06/29/24 08:08 Glucagon For Inj 1 Mg Vial IM PRN PRN Hypoglycemia Protocol Glucose 15 gm 06/29/24 08:08 Glucose Oral Gel 15 Gm Of Glucse In 37.5 Gm Tube PO PRN PRN Hypoglycemia Protocol Heparin Sodium (Porcine) 5,000 units 07/07/24 11:24 Heparin Sodium 5,000 Units/Ml Vial IV PUSH PRN PRN aPTT less than 55 seconds Heparin Sodium (Porcine) 2,500 units 07/07/24 11:24 07/09/24 07:21 Heparin Sodium 5,000 Units/Ml Vial IV PUSH 2,500 units PRN PRN Administration aPTT 55 - 70 seconds Hydralazine HCl 10 mg 07/06/24 16:42 07/06/24 17:03 Hydralazine Hcl 20 Mg/Ml Vial IV PUSH 10 mg Q4H PRN Administration Blood Pressure - High Dextrose 1,000 mls @ 100 mls/hr 06/29/24 08:08 Dextrose 5% 1,000 Ml IVPB PRN PRN Hypoglycemia Protocol Fentanyl Citrate 2,500 mcg in 250 mls @ 5 mls/hr 07/06/24 17:55 07/09/24 14:00 Fentanyl 2,500 Mcg/Ns 250 Ml IV CONT 50 mcg/hr .Q50H BARBARA 5 mls/hr Titration Protocol 50 MCG/HR Midazolam HCl 100 mg in 100 mls @ 2 mls/hr 07/06/24 17:55 07/09/24 14:00 Versed 100 Mg/Ns 100 Ml IV CONT 2 mg/hr .Q50H BARBARA 2 mls/hr Titration Protocol 2 MG/HR Heparin Sodium/Dextrose 25,000 units in 250 mls @ 5 mls/hr 07/07/24 11:25 07/09/24 14:00 Heparin Sodium/D5w 100 Units/Ml IV CONT 500 units/hr .Q24H BARBARA 5 mls/hr Titration Protocol 500 UNITS/HR Cefepime HCl 1 gm in 50 mls @ 100 mls/hr 07/08/24 11:00 07/09/24 10:20 Maxipime 1 Gm/Ns 50 Ml IVPB Infused Q12HR BARBARA Infusion Phenylephrine HCl 50 mg/ 250 ml in 250 mls @ 0 mls/hr 07/08/24 23:10 07/09/24 14:00 Dextrose IV CONT 0 mcg/min .Q0M BARBARA 0 mls/hr Titration Protocol Insulin Aspart 3 - 6 units 06/29/24 12:00 07/09/24 11:39 Insulin Aspart (*Bkc) 100 Units/Ml SUB-Q Not Given Q6HR [facility] Protocol Insulin Glargine 8 units 07/06/24 09:00 07/09/24 08:53 Insulin Glargine (*Bkc) 100 Units/Ml SUB-Q 8 units DAILY BARBARA Administration Levothyroxine Sodium 50 mcg 06/30/24 06:30 07/09/24 06:32 Levothyroxine Sodium 50 Mcg Tablet FEED TUBE 50 mcg DAILY@0630 BARBARA Administration Multi-Ingred Cream/Lotion/Oil/Oint 1 applic 06/29/24 09:00 07/09/24 08:50 Mineral Oil/White Petrolatum Ointment EACH EYE 1 applic Q12HR BARBARA Administration Pantoprazole Sodium 40 mg 07/06/24 21:00 07/09/24 08:50 Pantoprazole Sodium Iv 40 Mg Vial IV PUSH 40 mg Q12HR BARBARA Administration Sodium Chloride 10 ml 06/29/24 14:00 07/09/24 14:14 Central Line Flush IV PUSH 10 ml Q8HR BARBARA Administration Sodium Chloride 10 ml 06/29/24 12:40 Central Line Flush IV PUSH PRN PRN with TPN bag changes Sodium Chloride 20 ml 06/29/24 12:40 Central Line Flush IV PUSH PRN PRN after blood draws Vancomycin HCl 1 each 07/08/24 10:48 Vancomycin For Acute Kidney Injury IVPB PRN PRN Vancomycin Protocol Radiology Results: ITS Impressions Abdomen X-Ray 06/28/24 20:03 IMPRESSION: Nasogastric tube in good position and ready for immediate use. Abdomen Ultrasound 07/03/24 14:12 IMPRESSION: 1. Normal right upper quadrant ultrasound status post cholecystectomy. Renal Ultrasound 07/06/24 08:30 IMPRESSION: 1. No hydronephrosis in either kidney. Head CT 07/08/24 10:08 IMPRESSION: 1. No acute intracranial process. 2. 8 mm calcified extra-axial mass overlying the left parietal lobe most consistent with a meningioma. Chest X-Ray 07/09/24 08:00 Impression: Persistent haziness left lung base, suspicious for pneumonia versus possibly asymmetric pulmonary edema. Underlying COPD. Stable support tubes. Labs Labs: Laboratory Tests 07/09/24 04:54 07/09/24 04:54 Calcium 8.8 Phosphorus 4.2 Magnesium 2.7 H Total Bilirubin 0.4 AST 42 H ALT 50 H Alkaline Phosphatase 86 Total Protein 5.0 L Albumin 3.3 L Microbiology 07/08/24 08:53 Sputum Sputum Culture - Preliminary 07/08/24 11:28 Blood Blood Culture - Preliminary 07/08/24 11:09 Blood Blood Culture - Preliminary
[2024-07-09] MEDS: AMIODARONE HCL 200 MG TABLET 400 MG PO ×2 (12:38→20:33)
[2024-07-09 14:35] LABS: Partial Thromboplastin Time > 200.0 Seconds (22.3-36.8)
[2024-07-09 15:16] LABS: Partial Thromboplastin Time 94.5 Seconds (22.3-36.8)
[2024-07-09 17:21] LABS: Glucose Point of Care 155 mg/dl (65-105)
[2024-07-09] MEDS: FENTANYL 2,500MCG/NS250ML(*CRX 2,500 MCG/250 ML BAG IV CONT (20:45)
[2024-07-09 21:53] LABS: Partial Thromboplastin Time 74.3 Seconds (22.3-36.8)
[2024-07-10] VITALS (33 sets, daily range): BP systolic 91–159; BP diastolic 38–110; PULSE 62–72; RESP 16–24; TEMP 36.3–37.3; O2SAT 67–100
[2024-07-10 00:15] LABS: Glucose Point of Care 152 mg/dl (65-105)
[2024-07-10] MEDS: IPRATROPIUM 0.5 MG/ALBUTEROL SULFATE 2.5 MG AMPUL.NEB 3 ML INHALATION ×4 (01:48→20:25)
[2024-07-10 04:57] LABS: Alveolar/Arterial O2 Gradient 140.6 mmHg; Carboxyhemoglobin 0.9 % THb (0-2.0); Fractional Inspired Oxygen 35 %; HCO3 ABG 26.7 mEq/l (22.0-26.0); Oxygen Saturation ABG 91.1 % (95.0-100.0); Oxyhemoglobin 88.1 % THb (90.0-100.0); PCO2 ABG 42.6 mmHg (35.0-45.0); PO2 ABG 59.4 mmHg (80.0-100.0); pH ABG 7.415 (7.350-7.450)
[2024-07-10 05:06] LABS: Basophils Percent Auto 0.1 % (0.2-1.2); Eosinophils Absolute Auto 0.5 K/mm3 (0-0.3); Eosinophils Percent Auto 1.8 % (0-4.4); Hematocrit 21.2 % (37.0-47.0); Immature Granulocyte Absolute 0.33 K/mm3 (0.00-0.031); Immature Granulocyte Percent A 1.2 % (0-0.5); Lymphocytes Absolute Auto 2.08 K/mm3 (0.9-3.2); Lymphocytes Percent Auto 7.4 % (18.3-44.2); Mean Corpuscular HGB Conc 31.6 g/dl (32-36); Mean Corpuscular Hemoglobin 28.5 pg (26-34); Mean Corpuscular Volume 90.2 fl (80-100); Mean Platelet Volume 12.8 fl (7.4-10.4); Monocytes Absolute Auto 2.3 K/mm3 (0.1-0.6); Neutrophils Absolute Auto 22.8 K/mm3 (1.3-6.7); Neutrophils Percent Auto 81.5 % (45.5-73.1); Nucleated Red Blood Cells Perc 0.2 % (0.0-0.2); Platelet Count Result 229 k/mm3 (150-375); Red Blood Count 2.35 M/mm3 (4.2-5.4); Red Cell Distribution Width 18.6 % (11.5-14.5)
[2024-07-10 05:17] LABS: Ammonia < 9 umol/L (9-30)
[2024-07-10 05:19] LABS: Alanine Aminotransferase 48 U/L (6-35); Albumin Level 3.1 g/dL (3.5-5.1); Alkaline Phosphatase 93 U/L (38-126); Anion Gap 10 mmol/L (4-12); Aspartate Amino Transferase 36 U/L (14-36); Bilirubin,Total 0.4 mg/dL (0.2-1.3); Calcium 8.8 mg/dL (8.4-10.2); Carbon Dioxide 28 mmol/L (22-30); Chloride 105 mmol/L (98-107); Estimated CRCL calculation 19 ml/min; Estimated Glomerular Filt Rate 26; Glucose 136 mg/dL (65-110); Lactic Acid Reflex 0.7 mmol/L (0.7-2.0); Magnesium 2.7 mg/dL (1.6-2.3); Phosphorus 5.2 mg/dL (2.5-4.5); Potassium 4.3 mmol/L (3.4-5.0); Sodium 143 mmol/L (137-145)
[2024-07-10 05:21] LABS: Partial Thromboplastin Time 114.6 Seconds (22.3-36.8)
[2024-07-10 05:24] LABS: Blood Urea Nitrogen 135 mg/dL (7-17)
[2024-07-10 05:41] LABS: Vancomycin Trough 15.7 ug/mL (10.0-20.0)
[2024-07-10 05:44] LABS: Hemoglobin 6.7 g/dL (12.0-15.0); Hypochromasia 1+; Platelet Estimate Adequate (Adequate); Poikilocytosis 1+
[2024-07-10 05:45] LABS: Ovalocytes 1+; Schistocytes None Seen
--- NOTE | 2024-07-10 06:20 | PC.NURSE ---
Call placed to William, spouse at this time r/t consents for EGD and gastrostomy, Tracheostomy and blood transfusion. William agreed to all consents for patient without any further questions. Catie REINOSO witnessed telephone consent.
[2024-07-10 06:30] LABS: Arterial Blood Gas PEEP 5 cmH2O; Arterial Blood Gas Tidal Volume 480 ml; Arterial Blood Gas Vent Mode CMV; Arterial Blood Gas Ventilator rate 16 /MIN; Device VENTILATOR; Modified Allen's Test Pass; Site Drawn RIGHT RADIAL; Total Hemoglobin 7.2 g/dL (12.0-18.0)
[2024-07-10] MEDS: CENTRAL LINE FLUSH 10 ML IV PUSH ×3 (06:45→21:31)
[2024-07-10] MEDS: LEVOTHYROXINE SODIUM 50 MCG TABLET FEED TUBE (06:45)
[2024-07-10] MEDS: ASPIRIN 81 MG CHEWABLE TABLET PO (08:45)
[2024-07-10] MEDS: AMIODARONE HCL 200 MG TABLET 400 MG PO ×2 (08:45→21:31)
[2024-07-10] MEDS: ATORVASTATIN 40 MG TABLET PO (08:45)
[2024-07-10] MEDS: PANTOPRAZOLE SODIUM IV 40 MG VIAL IV PUSH ×2 (08:45→21:31)
[2024-07-10] MEDS: CEFEPIME 1 GM/NS 50 ML 1 GM/50 ML BAG IVPB ×2 (08:45→20:12)
[2024-07-10] MEDS: MINERAL OIL/WHITE PETROLATUM OINTMENT 1 APPLIC EACH EYE ×2 (08:45→21:32)
--- NOTE | 2024-07-10 08:59 | P.PN_ITS ---
Progress Note: A&P Assessment and Plan (1) Respiratory failure: Qualifiers: Chronicity: acute on chronic Respiratory failure complication: unspecified whether with hypoxia or hypercapnia Qualified Code(s): J96.20 - Acute and chronic respiratory failure, unspecified whether with hypoxia or hypercapnia Code(s): J96.90 - Respiratory failure, unspecified, unspecified whether with hypoxia or hypercapnia Status: Acute Plan 78-year-old female with as past medical history of COPD with chronic hypoxic hypercapnic respiratory failure on home O2 of 4 L at night, obstructive sleep apnea on CPAP at night, diastolic dysfunction, and hypothyroidism patient is in ICU and has been intubated since 12 days and i was consulted for possibility of tracheostomy to avoid prolonged ET intubation Plan -PT ,INR ,preferable to be below INR to be bellow 1.4 -Anesthesia Consult for Tracheostomy under general anesthesia -Discussion about blood transfusion with Dr Aburto (compliance advisor) to raise the Hbg to a level accepted by anesthesia -Hold heparin Drip the night before surgery -Patient is scheduled for tracheostomy on 07/13/2023 7:30 am Time Spent With Patient Time with patient: less than 15 minutes Subjective Date/time seen: 07/10/24 08:59 Interval history: 78-year-old female admitted in ICU for acute exacerbation of COPD and respiratory failure. patient has been intubated for 12 days and I was consulted for possible tracheostomy Review of Systems 2 Review of Systems: ROS unobtainable: Yes unobtainable due to endotracheal tube Exam Narrative: supple neck previous tracheostomy scar was noted. trachea midline HENMT: Face/Nose/Sinus: Normal nares present Other: intubated Neck: Other: previous tracheostomy neck scar Objective Data Vital Signs Vital Signs: Vital Signs - 24 hr 07/09/24 09:00 07/09/24 09:05 07/09/24 09:07 Temperature Pulse Rate 72 76 83 Respiratory Rate Blood Pressure 162/58 H 153/60 H 154/66 H Pulse Oximetry Oxygen Delivery Fraction of Inspired Oxygen 07/09/24 09:08 07/09/24 09:10 07/09/24 10:00 Temperature 37.5 C Pulse Rate 77 71 73 Respiratory Rate 15 Blood Pressure 154/60 H 154/60 H 134/45 L Pulse Oximetry 93 Oxygen Delivery Fraction of Inspired Oxygen 07/09/24 10:00 07/09/24 10:00 07/09/24 10:00 Temperature Pulse Rate 73 73 73 Respiratory Rate 15 15 Blood Pressure 134/45 L Pulse Oximetry Oxygen Delivery Fraction of Inspired Oxygen 07/09/24 10:00 07/09/24 10:00 07/09/24 10:57 Temperature Pulse Rate 73 73 73 Respiratory Rate Blood Pressure 134/45 L Pulse Oximetry 96 Oxygen Delivery Mechanical Ventilation Fraction of Inspired Oxygen 35 07/09/24 12:00 07/09/24 12:00 07/09/24 12:00 Temperature 37.3 C Pulse Rate 81 79 Respiratory Rate 16 Blood Pressure 101/67 Pulse Oximetry 93 Oxygen Delivery Fraction of Inspired Oxygen 35 07/09/24 12:00 07/09/24 12:00 07/09/24 12:00 Temperature Pulse Rate 81 80 80 Respiratory Rate 16 16 16 Blood Pressure Pulse Oximetry 93 Oxygen Delivery Mechanical Ventilation Fraction of Inspired Oxygen 35 07/09/24 12:00 07/09/24 12:38 07/09/24 14:00 Temperature Pulse Rate 80 80 75 Respiratory Rate 16 Blood Pressure 101/67 Pulse Oximetry Oxygen Delivery Fraction of Inspired Oxygen 07/09/24 14:00 07/09/24 14:00 07/09/24 14:00 Temperature Pulse Rate 75 75 70 Respiratory Rate 16 Blood Pressure 96/62 L Pulse Oximetry Oxygen Delivery Fraction of Inspired Oxygen 07/09/24 14:00 07/09/24 14:37 07/09/24 14:37 Temperature Pulse Rate 71 70 70 Respiratory Rate 17 16 Blood Pressure 118/78 Pulse Oximetry 95 96 Oxygen Delivery Mechanical Ventilation Fraction of Inspired Oxygen 35 07/09/24 14:46 07/09/24 16:00 07/09/24 16:00 Temperature 37.2 C Pulse Rate 69 76 Respiratory Rate 18 16 Blood Pressure 102/63 Pulse Oximetry 95 Oxygen Delivery Fraction of Inspired Oxygen 35 07/09/24 16:00 07/09/24 16:00 07/09/24 16:00 Temperature Pulse Rate 76 76 76 Respiratory Rate 16 16 16 Blood Pressure Pulse Oximetry 95 Oxygen Delivery Mechanical Ventilation Fraction of Inspired Oxygen 35 07/09/24 16:00 07/09/24 16:00 07/09/24 17:21 Temperature Pulse Rate 76 70 69 Respiratory Rate Blood Pressure 102/63 Pulse Oximetry 97 Oxygen Delivery Mechanical Ventilation Fraction of Inspired Oxygen 35 07/09/24 18:00 07/09/24 18:00 07/09/24 18:00 Temperature Pulse Rate 69 69 69 Respiratory Rate 16 16 Blood Pressure 104/55 L Pulse Oximetry 93 Oxygen Delivery Fraction of Inspired Oxygen 07/09/24 18:00 07/09/24 18:00 07/09/24 19:25 Temperature Pulse Rate 69 69 70 Respiratory Rate 18 Blood Pressure 104/55 L Pulse Oximetry 95 Oxygen Delivery Mechanical Ventilation Fraction of Inspired Oxygen 35 07/09/24 19:25 07/09/24 20:00 07/09/24 20:00 Temperature Pulse Rate 70 71 71 Respiratory Rate 16 16 16 Blood Pressure Pulse Oximetry Oxygen Delivery Fraction of Inspired Oxygen 07/09/24 20:00 07/09/24 20:00 07/09/24 20:00 Temperature Pulse Rate 71 Respiratory Rate Blood Pressure 105/62 Pulse Oximetry Oxygen Delivery Mechanical Ventilation Fraction of Inspired Oxygen 35 35 07/09/24 20:00 07/09/24 20:03 07/09/24 20:31 Temperature 37.3 C Pulse Rate 70 71 71 Respiratory Rate 18 20 Blood Pressure 105/62 Pulse Oximetry 95 Oxygen Delivery Fraction of Inspired Oxygen 07/09/24 20:33 07/09/24 20:45 07/09/24 22:00 Temperature Pulse Rate 72 71 74 Respiratory Rate 16 16 Blood Pressure Pulse Oximetry Oxygen Delivery Fraction of Inspired Oxygen 07/09/24 22:00 07/09/24 22:00 07/09/24 22:00 Temperature Pulse Rate 74 74 74 Respiratory Rate 16 Blood Pressure 125/64 Pulse Oximetry Oxygen Delivery Fraction of Inspired Oxygen 07/09/24 22:06 07/09/24 22:35 07/10/24 00:00 Temperature 37.3 C 37.3 C Pulse Rate 72 72 67 Respiratory Rate 20 24 H Blood Pressure 125/64 102/60 Pulse Oximetry 94 94 95 Oxygen Delivery Mechanical Ventilation Fraction of Inspired Oxygen 35 07/10/24 00:00 07/10/24 00:00 07/10/24 00:00 Temperature Pulse Rate 67 67 Respiratory Rate 16 16 Blood Pressure Pulse Oximetry Oxygen Delivery Mechanical Ventilation Fraction of Inspired Oxygen 35 07/10/24 00:00 07/10/24 00:00 07/10/24 00:00 Temperature Pulse Rate 67 67 Respiratory Rate Blood Pressure 102/60 Pulse Oximetry Oxygen Delivery Fraction of Inspired Oxygen 35 07/10/24 01:48 07/10/24 01:48 07/10/24 02:00 Temperature 37.3 C Pulse Rate 70 70 69 Respiratory Rate 17 22 H Blood Pressure 122/63 Pulse Oximetry 93 93 Oxygen Delivery Mechanical Ventilation Fraction of Inspired Oxygen 35 07/10/24 02:00 07/10/24 02:00 07/10/24 02:00 Temperature Pulse Rate 69 69 69 Respiratory Rate 16 16 Blood Pressure Pulse Oximetry Oxygen Delivery Fraction of Inspired Oxygen 07/10/24 02:00 07/10/24 02:17 07/10/24 04:00 Temperature Pulse Rate 69 72 Respiratory Rate 16 Blood Pressure 122/63 Pulse Oximetry Oxygen Delivery Fraction of Inspired Oxygen 35 07/10/24 04:00 07/10/24 04:00 07/10/24 04:00 Temperature 37.0 C Pulse Rate 70 70 70 Respiratory Rate 16 16 16 Blood Pressure 122/110 H Pulse Oximetry 96 Oxygen Delivery Fraction of Inspired Oxygen 07/10/24 04:00 07/10/24 04:00 07/10/24 04:00 Temperature Pulse Rate 70 70 Respiratory Rate Blood Pressure 122/110 H Pulse Oximetry Oxygen Delivery Mechanical Ventilation Fraction of Inspired Oxygen 35 07/10/24 05:00 07/10/24 06:00 07/10/24 06:00 Temperature 36.7 C Pulse Rate 68 67 67 Respiratory Rate 16 16 Blood Pressure 112/55 L Pulse Oximetry 93 67 L Oxygen Delivery Mechanical Ventilation Fraction of Inspired Oxygen 35 07/10/24 06:00 07/10/24 06:00 07/10/24 06:00 Temperature Pulse Rate 67 67 67 Respiratory Rate 16 Blood Pressure 112/55 L Pulse Oximetry Oxygen Delivery Fraction of Inspired Oxygen 07/10/24 08:00 07/10/24 08:00 07/10/24 08:45 Temperature 36.7 C Pulse Rate 66 67 Respiratory Rate 21 H Blood Pressure 114/55 L Pulse Oximetry 93 Oxygen Delivery Fraction of Inspired Oxygen 35 07/10/24 08:48 07/10/24 08:50 Temperature Pulse Rate 67 67 Respiratory Rate 17 Blood Pressure Pulse Oximetry 92 Oxygen Delivery Mechanical Ventilation Fraction of Inspired Oxygen 35 Intake/Output Intake/Output: Intake & Output 07/07/24 07/08/24 07/09/24 07/10/24 23:59 23:59 23:59 23:59 Intake Total 2150.4 3331.3 2401.4 639.6 Output Total 1250 1350 550 350 Balance 900.4 1981.3 1851.4 289.6 Meds/Results Medications: Active Medications Generic Name Dose Route Start Last Admin Trade Name Freq PRN Reason Stop Dose Admin Albuterol/Ipratropium 3 ml 06/29/24 02:00 07/10/24 08:48 Ipratropium 0.5 Mg/Albuterol Sulfate 2.5 Mg Ampul.Neb 3 Ml INHALATION 3 ml Q6HRT BARBARA Administration Amiodarone HCl 400 mg 07/09/24 12:20 07/10/24 08:45 Amiodarone Hcl 200 Mg Tablet PO 400 mg Q12HR BARBARA Administration Aspirin 81 mg 07/01/24 08:00 07/10/24 08:45 Aspirin 81 Mg Chewable Tablet PO 81 mg DAILY@0800 BARBARA Administration Atorvastatin Calcium 40 mg 06/29/24 09:00 07/10/24 08:45 Atorvastatin 40 Mg Tablet PO 40 mg DAILY BARBARA Administration Cyanocobalamin 1,000 mcg 07/07/24 12:00 07/07/24 13:35 Cyanocobalamin Inj 1,000 Mcg/Ml Vial IM 07/14/24 09:01 1,000 mcg WEEKLY BARBARA Administration Dextrose 12.5 gm 06/29/24 08:08 Dextrose 50% 25 Gm/50 Ml Syringe IV PUSH PRN PRN Hypoglycemia Protocol Glucagon 1 mg 06/29/24 08:08 Glucagon For Inj 1 Mg Vial IM PRN PRN Hypoglycemia Protocol Glucose 15 gm 06/29/24 08:08 Glucose Oral Gel 15 Gm Of Glucse In 37.5 Gm Tube PO PRN PRN Hypoglycemia Protocol Heparin Sodium (Porcine) 5,000 units 07/07/24 11:24 Heparin Sodium 5,000 Units/Ml Vial IV PUSH PRN PRN aPTT less than 55 seconds Heparin Sodium (Porcine) 2,500 units 07/07/24 11:24 07/09/24 07:21 Heparin Sodium 5,000 Units/Ml Vial IV PUSH 2,500 units PRN PRN Administration aPTT 55 - 70 seconds Hydralazine HCl 10 mg 07/06/24 16:42 07/06/24 17:03 Hydralazine Hcl 20 Mg/Ml Vial IV PUSH 10 mg Q4H PRN Administration Blood Pressure - High Dextrose 1,000 mls @ 100 mls/hr 06/29/24 08:08 Dextrose 5% 1,000 Ml IVPB PRN PRN Hypoglycemia Protocol Fentanyl Citrate 2,500 mcg in 250 mls @ 5 mls/hr 07/06/24 17:55 07/10/24 06:00 Fentanyl 2,500 Mcg/Ns 250 Ml IV CONT 50 mcg/hr .Q50H BARBARA 5 mls/hr Titration Protocol 50 MCG/HR Midazolam HCl 100 mg in 100 mls @ 2 mls/hr 07/06/24 17:55 07/10/24 06:00 Versed 100 Mg/Ns 100 Ml IV CONT 2 mg/hr .Q50H BARBARA 2 mls/hr Titration Protocol 2 MG/HR Heparin Sodium/Dextrose 25,000 units in 250 mls @ 0 mls/hr 07/07/24 11:25 07/10/24 08:52 Heparin Sodium/D5w 100 Units/Ml IV CONT 0 units/hr .Q0M BARBARA 0 mls/hr Titration Protocol Cefepime HCl 1 gm in 50 mls @ 100 mls/hr 07/08/24 11:00 07/10/24 08:45 Maxipime 1 Gm/Ns 50 Ml IVPB 100 mls/hr Q12HR BARBARA Administration Phenylephrine HCl 50 mg/ 250 ml in 250 mls @ 0 mls/hr 07/08/24 23:10 07/10/24 06:00 Dextrose IV CONT 0 mcg/min .Q0M BARBARA 0 mls/hr Titration Protocol Vancomycin HCl 1,000 mg in 250 mls @ 250 mls/hr 07/10/24 09:00 Vancomycin 1,000 Mg/Ns 250 Ml IVPB 07/10/24 09:59 ONCE ONE Sodium Chloride 250 mls @ 30 mls/hr 07/10/24 06:06 Normal Saline Iv IV CONT 07/10/24 14:25 .Q8H20M STA Insulin Aspart 3 - 6 units 06/29/24 12:00 07/10/24 06:44 Insulin Aspart (*Bkc) 100 Units/Ml SUB-Q Not Given Q6HR BARBARA Protocol Insulin Glargine 8 units 07/06/24 09:00 07/09/24 08:53 Insulin Glargine (*Bkc) 100 Units/Ml SUB-Q 8 units DAILY BARBARA Administration Levothyroxine Sodium 50 mcg 06/30/24 06:30 07/10/24 06:45 Levothyroxine Sodium 50 Mcg Tablet FEED TUBE 50 mcg DAILY@0630 BARBARA Administration Multi-Ingred Cream/Lotion/Oil/Oint 1 applic 06/29/24 09:00 07/10/24 08:45 Mineral Oil/White Petrolatum Ointment EACH EYE 1 applic Q12HR BARBARA Administration Pantoprazole Sodium 40 mg 07/06/24 21:00 07/10/24 08:45 Pantoprazole Sodium Iv 40 Mg Vial IV PUSH 40 mg Q12HR BARBARA Administration Sodium Chloride 10 ml 06/29/24 14:00 07/10/24 06:45 Central Line Flush IV PUSH 10 ml Q8HR BARBARA Administration Sodium Chloride 10 ml 06/29/24 12:40 Central Line Flush IV PUSH PRN PRN with TPN bag changes Sodium Chloride 20 ml 06/29/24 12:40 Central Line Flush IV PUSH PRN PRN after blood draws Vancomycin HCl 1 each 07/08/24 10:48 Vancomycin For Acute Kidney Injury IVPB PRN PRN Vancomycin Protocol Radiology Results: ITS Impressions Abdomen X-Ray 06/28/24 20:03 IMPRESSION: Nasogastric tube in good position and ready for immediate use. Abdomen Ultrasound 07/03/24 14:12 IMPRESSION: 1. Normal right upper quadrant ultrasound status post cholecystectomy. Renal Ultrasound 07/06/24 08:30 IMPRESSION: 1. No hydronephrosis in either kidney. Head CT 07/08/24 10:08 IMPRESSION: 1. No acute intracranial process. 2. 8 mm calcified extra-axial mass overlying the left parietal lobe most consistent with a meningioma. Chest X-Ray 07/10/24 06:34 IMPRESSION: 1. Airspace opacities in the mid and lower lung zones with worsening at the lung bases, consistent with atelectasis versus pneumonia. 2. Severe emphysema. Labs Labs: Laboratory Results - last 24 hr 07/05/24 07/06/24 07/09/24 16:40 06:44 11:39 WBC RBC Hgb Hct MCV MCH MCHC RDW Plt Count MPV Immature Gran % (Auto) Neut % (Auto) Lymph % (Auto) Garfield % (Auto) Eos % (Auto) Baso % (Auto) Lymph # (Auto) Garfield # (Auto) Eos # (Auto) Baso # (Auto) Abs Immat Gran (auto) Absolute Neuts (auto) Absolute Nucleated RBC Nucleated RBC % Platelet Estimate Hypochromasia Poikilocytosis Ovalocytes Schistocytes APTT Puncture Site ABG pH ABG pCO2 ABG pO2 ABG PO2/FiO2 Ratio ABG HCO3 ABG O2 Saturation ABG O2 Content ABG Base Excess A-a Gradient Oxyhemoglobin Carboxyhemoglobin Methemoglobin Reduced Hemoglobin Total Hemoglobin O2 Delivery Device O2 Liters/Min Minute Volume Vent Rate Vent Mode FiO2 Tidal Volume PEEP Peak Inspir Pressure Pressure Support Sodium Potassium Chloride Carbon Dioxide Anion Gap BUN Creatinine Estim Creat Clear Calc Estimated GFR Glucose POC Capillary Glucose 158 H Lactic Acid Calcium Phosphorus Magnesium Total Bilirubin AST ALT Alkaline Phosphatase Ammonia Total Protein Albumin Aldosterone 1 Urine Osmolality TNP Ur Random Creatinine TNP U Random Chloride/Creat TNP Vancomycin Trough Blood Type Antibody Screen Crossmatch 07/09/24 07/09/24 07/09/24 13:57 14:55 17:18 WBC RBC Hgb Hct MCV MCH MCHC RDW Plt Count MPV Immature Gran % (Auto) Neut % (Auto) Lymph % (Auto) Garfield % (Auto) Eos % (Auto) Baso % (Auto) Lymph # (Auto) Garfield # (Auto) Eos # (Auto) Baso # (Auto) Abs Immat Gran (auto) Absolute Neuts (auto) Absolute Nucleated RBC Nucleated RBC % Platelet Estimate Hypochromasia Poikilocytosis Ovalocytes Schistocytes APTT > 200.0 H* 94.5 H Puncture Site ABG pH ABG pCO2 ABG pO2 ABG PO2/FiO2 Ratio ABG HCO3 ABG O2 Saturation ABG O2 Content ABG Base Excess A-a Gradient Oxyhemoglobin Carboxyhemoglobin Methemoglobin Reduced Hemoglobin Total Hemoglobin O2 Delivery Device O2 Liters/Min Minute Volume Vent Rate Vent Mode FiO2 Tidal Volume PEEP Peak Inspir Pressure Pressure Support Sodium Potassium Chloride Carbon Dioxide Anion Gap BUN Creatinine Estim Creat Clear Calc Estimated GFR Glucose POC Capillary Glucose 155 H Lactic Acid Calcium Phosphorus Magnesium Total Bilirubin AST ALT Alkaline Phosphatase Ammonia Total Protein Albumin Aldosterone Urine Osmolality Ur Random Creatinine U Random Chloride/Creat Vancomycin Trough Blood Type Antibody Screen Crossmatch 07/09/24 07/10/24 07/10/24 21:33 00:08 04:50 WBC 28.0 H RBC 2.35 L Hgb 6.7 L* Hct 21.2 L MCV 90.2 MCH 28.5 MCHC 31.6 L RDW 18.6 H Plt Count 229 MPV 12.8 H Immature Gran % (Auto) 1.2 H Neut % (Auto) 81.5 H Lymph % (Auto) 7.4 L Garfield % (Auto) 8.0 Eos % (Auto) 1.8 Baso % (Auto) 0.1 L Lymph # (Auto) 2.08 Garfield # (Auto) 2.3 H Eos # (Auto) 0.5 H Baso # (Auto) 0.0 Abs Immat Gran (auto) 0.33 H Absolute Neuts (auto) 22.8 H Absolute Nucleated RBC 0.060 H Nucleated RBC % 0.2 Platelet Estimate Adequate Hypochromasia 1+ Poikilocytosis 1+ Ovalocytes 1+ Schistocytes None seen APTT 74.3 H 114.6 H Puncture Site ABG pH ABG pCO2 ABG pO2 ABG PO2/FiO2 Ratio ABG HCO3 ABG O2 Saturation ABG O2 Content ABG Base Excess A-a Gradient Oxyhemoglobin Carboxyhemoglobin Methemoglobin Reduced Hemoglobin Total Hemoglobin O2 Delivery Device O2 Liters/Min Minute Volume Vent Rate Vent Mode FiO2 Tidal Volume PEEP Peak Inspir Pressure Pressure Support Sodium 143 Potassium 4.3 Chloride 105 Carbon Dioxide 28 Anion Gap 10 BUN 135 H D Creatinine 2.19 H Estim Creat Clear Calc 19 Estimated GFR 26 L Glucose 136 H POC Capillary Glucose 152 H Lactic Acid 0.7 Calcium 8.8 Phosphorus 5.2 H Magnesium 2.7 H Total Bilirubin 0.4 AST 36 ALT 48 H Alkaline Phosphatase 93 Ammonia < 9 L Total Protein 5.0 L Albumin 3.1 L Aldosterone Urine Osmolality Ur Random Creatinine U Random Chloride/Creat Vancomycin Trough 15.7 Blood Type Antibody Screen Crossmatch 07/10/24 07/10/24 04:51 06:48 WBC RBC Hgb Hct MCV MCH MCHC RDW Plt Count MPV Immature Gran % (Auto) Neut % (Auto) Lymph % (Auto) Garfield % (Auto) Eos % (Auto) Baso % (Auto) Lymph # (Auto) Garfield # (Auto) Eos # (Auto) Baso # (Auto) Abs Immat Gran (auto) Absolute Neuts (auto) Absolute Nucleated RBC Nucleated RBC % Platelet Estimate Hypochromasia Poikilocytosis Ovalocytes Schistocytes APTT Puncture Site Right radial ABG pH 7.415 ABG pCO2 42.6 ABG pO2 59.4 L ABG PO2/FiO2 Ratio 1.70 ABG HCO3 26.7 H ABG O2 Saturation 91.1 L ABG O2 Content 9.0 L ABG Base Excess 2.0 A-a Gradient 140.6 Oxyhemoglobin 88.1 L Carboxyhemoglobin 0.9 Methemoglobin 0.0 Reduced Hemoglobin 11.0 H Total Hemoglobin 7.2 L* O2 Delivery Device Ventilator O2 Liters/Min Not Reportable Minute Volume Not Reportable Vent Rate 16 Vent Mode Cmv FiO2 35 Tidal Volume 480 PEEP 5 Peak Inspir Pressure Not Reportable Pressure Support Not Reportable Sodium Potassium Chloride Carbon Dioxide Anion Gap BUN Creatinine Estim Creat Clear Calc Estimated GFR Glucose POC Capillary Glucose Lactic Acid Calcium Phosphorus Magnesium Total Bilirubin AST ALT Alkaline Phosphatase Ammonia Total Protein Albumin Aldosterone Urine Osmolality Ur Random Creatinine U Random Chloride/Creat Vancomycin Trough Blood Type O Positive Antibody Screen Negative Crossmatch See Detail
[2024-07-10] MEDS: SODIUM CHLORIDE 0.9% IV 250 ML 30 ML IV CONT (09:07)
[2024-07-10] MEDS: VANCOMYCIN 1,000 MG/NS 250 ML 1,000 MG/250 ML BAG 250 MG IVPB (10:50)
--- NOTE | 2024-07-10 11:26 | PCNFU ---
Nutrition Follow-Up Complete: Inadequate Oral Intake as related to mechanical vent as evidenced by NPO. Goal: Meet estimated nutritional needs Patient is meeting goal. We will continue current goal. Pt current nutrition is NPO. Last recorded weight is 74.3 kg, up from 64.3 kg on admit Bowel Motility:+BM reported 07/10 Labs Reviewed:Mg 2.7, Cr 2.19, BUN 135, ,Glu 136, Na 135, Alb 3.1, Hct 21.1, Hgb 6.7 Meds Noted:NovoLog, Lantus, Protonix, NS, Fentanyl, Versed Skin: Deep Tissue-coccyx. Additional Notes: Patient remains on mechanical vent. NPO for PEG today. Plans for Trach 07/13. When restarting tube feedings recommend Nepro at 40 ml/hr. Total Nutrition: 1584 kcal/72 gm protein/640 ml water. Flush 100 ml q 4 hours. Agree with diet orders. Will monitor weight, labs, skin, diet orders, meds, tube feedings tolerance every Saturday and Saturday.
--- NOTE | 2024-07-10 11:35 | WPDINTPN ---
Progress Note: A&P Assessment and Plan (1) Atrial fibrillation with RVR: Code(s): I48.91 - Unspecified atrial fibrillation Status: Acute Assessment and Plan: 07/06 evening: Patient went into SVT, status post tenderness and 6 mg and 12 mg, underlying rhythm was AFib RVR, converted to normal sinus rhythm with IV metoprolol x1 and increasing her sedation. Patient remained in sinus rhythm also the morning of 07/07/2024. 07/07: Started weaning her sedation again today, patient went to AFib RVR, -hold heparin infusion due to drop in hemoglobin coffee-ground emesis -07/06; TSH level within normal limits, troponin level with no change since admission -EKG showed AFib RVR, discussed with cardiology, 07/08: In the evening patient went into AFib RVR again, requiring an amiodarone bolus, increased amiodarone infusion to 1 mg/min. Patient dropped her blood pressures and heart rate so amiodarone infusion was held. Patient was started on Robert-Synephrine. 07/09: Patient was hypertensive, Robert-Synephrine was discontinued. Cardiology recommended starting p.o. amiodarone which was ordered. Also recommended metoprolol which currently have not started because borderline blood pressures and she just came off Robert-Synephrine (2) Acute on chronic respiratory failure with hypoxia and hypercapnia: Code(s): J96.21 - Acute and chronic respiratory failure with hypoxia; J96.22 - Acute and chronic respiratory failure with hypercapnia Status: Acute Assessment and Plan: Acute on chronic respiratory failure secondary to severe COPD exacerbation. Community-acquired pneumonia although chest x-ray is not suggestive and patient is low procalcitonin level. WBC elevated MRSA screen negative 06/28/2024: Intubated in the ED 06/28: Blood cultures negative x2 -status post says 8 days of ceftriaxone -status post 5 days of doxycycline -DC vancomycin (06/29), MRSA screen negative 07/02: Patient did have high peak pressures, after switching her from propofol to fentanyl and Versed due to elevated triglycerides. She was started on Nimbex infusion which improved her oxygenation, respiratory status and improved air entry. 07/03: Remains on Nimbex, adequate air entry, peak pressures are within normal limits continue fentanyl Versed infusion for now, will start weaning Nimbex, will maintain RASS of 0 to -2 on sedation meds 07/04: Chest x-ray, ABGs reviewed, ventilator adjusted, increased respiratory rate 22 and increased FiO2 to 45%, maintain O2 sats greater than 90%. Have also asked the bedside RN to start weaning the Nimbex to off -07/05: Patient has prolonged expiratory phase, decrease respiratory rate, increased I to E ratio, increased tidal volume. Will repeat ABGs -Continue bronchodilators, -off Solu-Medrol -07/05 and 07/06: off all sedation, will try to place patient on SBT when she is more awake. If she requires any kind of sedation will start Precedex infusion. Patient did not tolerate being off on sedation and went into SVT and AFib RVR. Once sedation was placed back on patient converted to sinus rhythm with regular rate. 07/07: Sedation was weaned again this morning, patient was started on Precedex infusion site could place her on a a breathing trial to evaluate for extubation. Patient again went into AFib RVR, sedation was reinstated 07/08: Tolerating mechanical ventilation, ABGs look good, chest x-ray shows worsening haziness in left lung base, likely developing pneumonia. Patient is WBC count has increased to 20,000, will obtain blood cultures, start cefepime and vancomycin of possible ventilator associated pneumonia 07/09: discussed with William, updated him with patient's condition and plan of care. I discussed with him 6 worsening chest x-ray, possible developing pneumonia with elevated WBC 6. That she would require tracheostomy and PEG tube placement to which she was agreeable, he stated will have to do everything to keep her alive. 07/10: Patient is being seen a and Gastroenterology for possible trach placement as was PE based on Consulted Dr. Zhang, [phone] (cell), discussed with him regarding tracheostomy for the patient. He is going to be coming to evaluate the patient today (3) Acute exacerbation of chronic obstructive pulmonary disease: Code(s): J44.1 - Chronic obstructive pulmonary disease with (acute) exacerbation Status: Acute Assessment and Plan: Continue mechanical ventilation, bronchodilators, antibiotics, (4) Elevated troponin: Code(s): R77.8 - Other specified abnormalities of plasma proteins Status: Acute Assessment and Plan: Patient has elevated troponin likely secondary to demand ischemia from acute respiratory failure. EKG reviewed and does not show any ST elevation. Patient does not have any documented history of coronary disease. Troponins trending down Continue aspirin 81 mg p.o. daily and statin Appreciate cardiology evaluation and recommendation 06/29/2024: Echocardiogram Summary 1. The left ventricle is normal in size with thickened left ventricular rodríguez. The overall left ventricular systolic function appears preserved. Cannot rule out very mild hypokinesis of the apical wall. 2. The right ventricle is normal in size and systolic function. 3. The there is a small amount of pericardial effusion with no echocardiographic evidence of cardiac tamponade. (5) Hypothyroidism: Code(s): E03.9 - Hypothyroidism, unspecified Status: Acute Assessment and Plan: Continue levothyroxine. -07/06: TSH level - within normal limits (6) Electrolyte abnormality: Code(s): E87.8 - Other disorders of electrolyte and fluid balance, not elsewhere classified Status: Acute Assessment and Plan: Potassium levels within normal limits -appreciate Nephrology evaluation and recommendations (7) Elevated LFTs: Code(s): R79.89 - Other specified abnormal findings of blood chemistry Status: Acute Assessment and Plan: Right upper quadrant ultrasound was normal, status post cholecystectomy -hepatitis panel was within normal limit (8) RASHEL (acute kidney injury): Code(s): N17.9 - Acute kidney failure, unspecified Status: Acute Assessment and Plan: Acute kidney injury, likely related to hypotension, intravascular volume depletion, BUN elevated likely related to steroids -nephrology has been consulted and appreciate the evaluation and recommendation -discuss with Nephrology, will start albumin 25% x4 doses since she may be intravascularly depleted -monitor urine output, renal function electrolytes 07/06: Renal ultrasound: No hydronephrosis in either kidney. -urine lytes not reflective of prerenal picture -CKD levels elevated to 813 07/07: Patient may more urine overnight, creatinine trending down. Discuss with Nephrology, will give 1 L IV fluids over 10 hours 07/08: Urine output has improved, creatinine trending down. Low potassium levels will replete due to AFib RVR 07/09: Urine output is adequate, creatinine increased likely related to hypotension, AFib RVR. Will continue to monitor nephrology also following. Potassium levels are normal (9) Hyperglycemia: Code(s): R73.9 - Hyperglycemia, unspecified Status: Acute Assessment and Plan: Hyperglycemia likely related to tube feeds and or steroid -weaning steroid -continue Accu-Cheks and sliding scale insulin, -continue Lantus. (10) Anemia: Code(s): D64.9 - Anemia, unspecified Status: Acute Assessment and Plan: Patient dropped her hemoglobin to 8.3 from 10.9 (07/05) -07/06/2024: Stool occult was positive -iron panel did not show any iron deficiency, normal folate level -low vitamin B12 level, will give IM cyanocobalamin weekly x2 doses -continue Protonix to IV q.12 hours -appreciate GI evaluation , no endoscopy recommended at this time -hemoglobin remains stable (11) Encephalopathy: Code(s): G93.40 - Encephalopathy, unspecified Status: Acute Assessment and Plan: Patient opens her eyes but does not follow simple commands, upper extremities are flaccid, pupils are equal and reactive, patient grimaces to pain but does not withdraw to pain stimulus -07/08: stat CT scan of the brain: 1. No acute intracranial process.2. 8 mm calcified extra-axial mass overlying the left parietal lobe most consistent with a meningioma. -ammonia level <9 -continue to monitor Plan DVT prophylaxis -heparin infusion Stress ulcer prophylaxis -PPI IV q.12 hours Nutrition -tolerating tube feeds Code Status - Full Code Total Critical Care Time - 36 minutes -discussed with Nephrology and Cardiology 07/09: discussed with William, updated him with patient's condition and plan of care. I discussed with him 6 worsening chest x-ray, possible developing pneumonia with elevated WBC 6. That she would require tracheostomy and PEG tube placement to which she was agreeable, he stated will have to do everything to keep her alive. Consulted Dr. Zhang, [phone] (cell), discussed with him regarding tracheostomy for the patient. He is going to be coming to evaluate the patient today Due to a high probability of clinically significant, life threatening deterioration, the patient required my highest level of preparedness to intervene emergently and I personally spent this critical care time directly and personally managing the patient. This critical care time included obtaining a history; examining the patient; pulse oximetry; ordering and review of studies; arranging urgent treatment with development of a management plan; evaluation of patient's response to treatment; frequent reassessment; and discussions with other providers. It was exclusive of separately billable procedures and treating other patients and teaching time. Please see Assessment and Plan section and the rest of the note for further information on patient assessment and treatment This dictation may have been done utilizing a voice recognition system. Attempts have been made to correct errors. However, there may be uncorrected grammatical, spelling, and recognitions errors present. Time Spent With Patient Time: DVT prophylaxis: Clonus IV q.12 hours Stress ulcer prophylaxis: With into Code Status: Old Critical Care Time Spent: Of Due to a high probability of clinically significant, life threatening deterioration, the patient required my highest level of preparedness to intervene emergently and I personally spent this critical care time directly and personally managing the patient. This critical care time included obtaining a history; examining the patient; pulse oximetry; ordering and review of studies; arranging urgent treatment with development of a management plan; evaluation of patient's response to treatment; frequent reassessment; and discussions with other providers. It was exclusive of separately billable procedures and treating other patients and teaching time. Please see Assessment and Plan section and the rest of the note for further information on patient assessment and treatment This dictation may have been done utilizing a voice recognition system. Attempts have been made to correct errors. However, there may be uncorrected grammatical, spelling, and recognitions errors present. Subjective Date/time seen: 07/10/24 11:35 Interval history: Reason for consult: COPD exacerbation, acute hypercapnic respiratory failure, NSTEMI with elevated troponin 05/07: CT brain was negative, was done for encephalopathy 07/10/2024: Patient seen examined the ICU, remains intubated on CMV mode of ventilation, peep of 5, 35% FiO2. Sedated with fentanyl and Versed infusion, opens eyes but does not follow simple commands. Patient remained in sinus rhythm, rate control. Dropped hemoglobin to 6.7 this morning. Patient being transfuse 1 unit packed RBCs. Urine output has been adequate, hemodynamically stable. Patient was switched to p.o. amiodarone yesterday on 05/08/2025. Review of Systems Review of Systems: ROS unobtainable: Yes unobtainable due to endotracheal tube, unobtainable due to medical condition and unobtainable due to mental status Exam Narrative: General: Pt is sedated and intubated and on mechanical ventilation Lungs/Chest: Trachea central, better air entry this morning, no wheezing or rales. Cardiac: Irregularly irregular, tachycardic. No murmurs Circulation: Pedal pulses are intact and symmetrical. Abdomen: Decreased bowel sounds. Obese. Soft. NT. ND. Extremities: No clubbing, cyanosis or edema. Warm : [place] in place Neurologic: Intubated, sedated opens her eyes but does not follow simple commands, grimaces to pain but does not withdraw. Upper extremities were flaccid. Pupils equal and reactive. Objective Data Vital Signs Vital Signs: Vital Signs - 24 hr 07/09/24 12:00 07/09/24 12:00 07/09/24 12:00 Temperature 99.2 F Pulse Rate 81 79 Respiratory Rate 16 Blood Pressure 101/67 Pulse Oximetry 93 Oxygen Delivery Fraction of Inspired Oxygen 35 07/09/24 12:00 07/09/24 12:00 07/09/24 12:00 Temperature Pulse Rate 81 80 80 Respiratory Rate 16 16 16 Blood Pressure Pulse Oximetry 93 Oxygen Delivery Mechanical Ventilation Fraction of Inspired Oxygen 35 07/09/24 12:00 07/09/24 12:38 07/09/24 14:00 Temperature Pulse Rate 80 80 75 Respiratory Rate 16 Blood Pressure 101/67 Pulse Oximetry Oxygen Delivery Fraction of Inspired Oxygen 07/09/24 14:00 07/09/24 14:00 07/09/24 14:00 Temperature Pulse Rate 75 75 70 Respiratory Rate 16 Blood Pressure 96/62 L Pulse Oximetry Oxygen Delivery Fraction of Inspired Oxygen 07/09/24 14:00 07/09/24 14:37 07/09/24 14:37 Temperature Pulse Rate 71 70 70 Respiratory Rate 17 16 Blood Pressure 118/78 Pulse Oximetry 95 96 Oxygen Delivery Mechanical Ventilation Fraction of Inspired Oxygen 35 07/09/24 14:46 07/09/24 16:00 07/09/24 16:00 Temperature 99.0 F Pulse Rate 69 76 Respiratory Rate 18 16 Blood Pressure 102/63 Pulse Oximetry 95 Oxygen Delivery Fraction of Inspired Oxygen 35 07/09/24 16:00 07/09/24 16:00 07/09/24 16:00 Temperature Pulse Rate 76 76 76 Respiratory Rate 16 16 16 Blood Pressure Pulse Oximetry 95 Oxygen Delivery Mechanical Ventilation Fraction of Inspired Oxygen 35 07/09/24 16:00 07/09/24 16:00 07/09/24 17:21 Temperature Pulse Rate 76 70 69 Respiratory Rate Blood Pressure 102/63 Pulse Oximetry 97 Oxygen Delivery Mechanical Ventilation Fraction of Inspired Oxygen 35 07/09/24 18:00 07/09/24 18:00 07/09/24 18:00 Temperature Pulse Rate 69 69 69 Respiratory Rate 16 16 Blood Pressure 104/55 L Pulse Oximetry 93 Oxygen Delivery Fraction of Inspired Oxygen 07/09/24 18:00 07/09/24 18:00 07/09/24 19:25 Temperature Pulse Rate 69 69 70 Respiratory Rate 18 Blood Pressure 104/55 L Pulse Oximetry 95 Oxygen Delivery Mechanical Ventilation Fraction of Inspired Oxygen 35 07/09/24 19:25 07/09/24 20:00 07/09/24 20:00 Temperature Pulse Rate 70 71 71 Respiratory Rate 16 16 16 Blood Pressure Pulse Oximetry Oxygen Delivery Fraction of Inspired Oxygen 07/09/24 20:00 07/09/24 20:00 07/09/24 20:00 Temperature Pulse Rate 71 Respiratory Rate Blood Pressure 105/62 Pulse Oximetry Oxygen Delivery Mechanical Ventilation Fraction of Inspired Oxygen 35 35 07/09/24 20:00 07/09/24 20:03 07/09/24 20:31 Temperature 99.1 F Pulse Rate 70 71 71 Respiratory Rate 18 20 Blood Pressure 105/62 Pulse Oximetry 95 Oxygen Delivery Fraction of Inspired Oxygen 07/09/24 20:33 07/09/24 20:45 07/09/24 22:00 Temperature Pulse Rate 72 71 74 Respiratory Rate 16 16 Blood Pressure Pulse Oximetry Oxygen Delivery Fraction of Inspired Oxygen 07/09/24 22:00 07/09/24 22:00 07/09/24 22:00 Temperature Pulse Rate 74 74 74 Respiratory Rate 16 Blood Pressure 125/64 Pulse Oximetry Oxygen Delivery Fraction of Inspired Oxygen 07/09/24 22:06 07/09/24 22:35 07/10/24 00:00 Temperature 99.1 F 99.2 F Pulse Rate 72 72 67 Respiratory Rate 20 24 H Blood Pressure 125/64 102/60 Pulse Oximetry 94 94 95 Oxygen Delivery Mechanical Ventilation Fraction of Inspired Oxygen 35 07/10/24 00:00 07/10/24 00:00 07/10/24 00:00 Temperature Pulse Rate 67 67 Respiratory Rate 16 16 Blood Pressure Pulse Oximetry Oxygen Delivery Mechanical Ventilation Fraction of Inspired Oxygen 35 07/10/24 00:00 07/10/24 00:00 07/10/24 00:00 Temperature Pulse Rate 67 67 Respiratory Rate Blood Pressure 102/60 Pulse Oximetry Oxygen Delivery Fraction of Inspired Oxygen 35 07/10/24 01:48 07/10/24 01:48 07/10/24 02:00 Temperature 99.1 F Pulse Rate 70 70 69 Respiratory Rate 17 22 H Blood Pressure 122/63 Pulse Oximetry 93 93 Oxygen Delivery Mechanical Ventilation Fraction of Inspired Oxygen 35 07/10/24 02:00 07/10/24 02:00 07/10/24 02:00 Temperature Pulse Rate 69 69 69 Respiratory Rate 16 16 Blood Pressure Pulse Oximetry Oxygen Delivery Fraction of Inspired Oxygen 07/10/24 02:00 07/10/24 02:17 07/10/24 04:00 Temperature Pulse Rate 69 72 Respiratory Rate 16 Blood Pressure 122/63 Pulse Oximetry Oxygen Delivery Fraction of Inspired Oxygen 35 07/10/24 04:00 07/10/24 04:00 07/10/24 04:00 Temperature 98.6 F Pulse Rate 70 70 70 Respiratory Rate 16 16 16 Blood Pressure 122/110 H Pulse Oximetry 96 Oxygen Delivery Fraction of Inspired Oxygen 07/10/24 04:00 07/10/24 04:00 07/10/24 04:00 Temperature Pulse Rate 70 70 Respiratory Rate Blood Pressure 122/110 H Pulse Oximetry Oxygen Delivery Mechanical Ventilation Fraction of Inspired Oxygen 35 07/10/24 05:00 07/10/24 06:00 07/10/24 06:00 Temperature 98.1 F Pulse Rate 68 67 67 Respiratory Rate 16 16 Blood Pressure 112/55 L Pulse Oximetry 93 67 L Oxygen Delivery Mechanical Ventilation Fraction of Inspired Oxygen 35 07/10/24 06:00 07/10/24 06:00 07/10/24 06:00 Temperature Pulse Rate 67 67 67 Respiratory Rate 16 Blood Pressure 112/55 L Pulse Oximetry Oxygen Delivery Fraction of Inspired Oxygen 07/10/24 08:00 07/10/24 08:00 07/10/24 08:00 Temperature 98.0 F Pulse Rate 66 69 Respiratory Rate 21 H 16 Blood Pressure 114/55 L Pulse Oximetry 93 Oxygen Delivery Fraction of Inspired Oxygen 35 07/10/24 08:00 07/10/24 08:00 07/10/24 08:00 Temperature Pulse Rate 69 66 Respiratory Rate 16 Blood Pressure Pulse Oximetry 100 Oxygen Delivery Mechanical Ventilation Fraction of Inspired Oxygen 35 07/10/24 08:00 07/10/24 08:45 07/10/24 08:48 Temperature Pulse Rate 67 67 67 Respiratory Rate 17 Blood Pressure 114/55 L Pulse Oximetry Oxygen Delivery Fraction of Inspired Oxygen 07/10/24 08:50 07/10/24 09:07 07/10/24 09:22 Temperature 98.1 F 98 F Pulse Rate 67 68 69 Respiratory Rate 16 16 Blood Pressure 131/54 L 141/57 H Pulse Oximetry 92 93 93 Oxygen Delivery Mechanical Ventilation Fraction of Inspired Oxygen 35 07/10/24 10:00 07/10/24 10:00 07/10/24 10:00 Temperature 98 F Pulse Rate 69 69 69 Respiratory Rate 16 16 Blood Pressure 159/57 H Pulse Oximetry 100 Oxygen Delivery Fraction of Inspired Oxygen 07/10/24 10:00 07/10/24 10:00 07/10/24 10:22 Temperature 98.1 F Pulse Rate 69 70 67 Respiratory Rate 16 16 Blood Pressure 159/57 H 124/55 L Pulse Oximetry 93 Oxygen Delivery Fraction of Inspired Oxygen 07/10/24 10:58 07/10/24 11:16 Temperature 98.1 F Pulse Rate 66 68 Respiratory Rate 16 Blood Pressure 118/53 L Pulse Oximetry 91 94 Oxygen Delivery Mechanical Ventilation Fraction of Inspired Oxygen 35 Intake/Output Intake/Output: Intake & Output 07/07/24 07/08/24 07/09/24 07/10/24 23:59 23:59 23:59 23:59 Intake Total 2150.4 3331.3 2401.4 1067.6 Output Total 1250 1350 550 350 Balance 900.4 1981.3 1851.4 717.6 Meds/Results Medications: Active Medications Generic Name Dose Route Start Last Admin Trade Name Freq PRN Reason Stop Dose Admin Albuterol/Ipratropium 3 ml 06/29/24 02:00 07/10/24 08:48 Ipratropium 0.5 Mg/Albuterol Sulfate 2.5 Mg Ampul.Neb 3 Ml INHALATION 3 ml Q6HRT BARBARA Administration Amiodarone HCl 400 mg 07/09/24 12:20 07/10/24 08:45 Amiodarone Hcl 200 Mg Tablet PO 400 mg Q12HR BARBARA Administration Aspirin 81 mg 07/01/24 08:00 07/10/24 08:45 Aspirin 81 Mg Chewable Tablet PO 81 mg DAILY@0800 [facility] Administration Atorvastatin Calcium 40 mg 06/29/24 09:00 07/10/24 08:45 Atorvastatin 40 Mg Tablet PO 40 mg DAILY BARBARA Administration Cyanocobalamin 1,000 mcg 07/07/24 12:00 07/07/24 13:35 Cyanocobalamin Inj 1,000 Mcg/Ml Vial IM 07/14/24 09:01 1,000 mcg WEEKLY BARBARA Administration Dextrose 12.5 gm 06/29/24 08:08 Dextrose 50% 25 Gm/50 Ml Syringe IV PUSH PRN PRN Hypoglycemia Protocol Glucagon 1 mg 06/29/24 08:08 Glucagon For Inj 1 Mg Vial IM PRN PRN Hypoglycemia Protocol Glucose 15 gm 06/29/24 08:08 Glucose Oral Gel 15 Gm Of Glucse In 37.5 Gm Tube PO PRN PRN Hypoglycemia Protocol Heparin Sodium (Porcine) 5,000 units 07/07/24 11:24 Heparin Sodium 5,000 Units/Ml Vial IV PUSH PRN PRN aPTT less than 55 seconds Heparin Sodium (Porcine) 2,500 units 07/07/24 11:24 07/09/24 07:21 Heparin Sodium 5,000 Units/Ml Vial IV PUSH 2,500 units PRN PRN Administration aPTT 55 - 70 seconds Hydralazine HCl 10 mg 07/06/24 16:42 07/06/24 17:03 Hydralazine Hcl 20 Mg/Ml Vial IV PUSH 10 mg Q4H PRN Administration Blood Pressure - High Dextrose 1,000 mls @ 100 mls/hr 06/29/24 08:08 Dextrose 5% 1,000 Ml IVPB PRN PRN Hypoglycemia Protocol Fentanyl Citrate 2,500 mcg in 250 mls @ 5 mls/hr 07/06/24 17:55 07/10/24 10:00 Fentanyl 2,500 Mcg/Ns 250 Ml IV CONT 50 mcg/hr .Q50H BARBARA 5 mls/hr Titration Protocol 50 MCG/HR Midazolam HCl 100 mg in 100 mls @ 2 mls/hr 07/06/24 17:55 07/10/24 10:00 Versed 100 Mg/Ns 100 Ml IV CONT 2 mg/hr .Q50H BARBARA 2 mls/hr Titration Protocol 2 MG/HR Heparin Sodium/Dextrose 25,000 units in 250 mls @ 0 mls/hr 07/07/24 11:25 07/10/24 08:52 Heparin Sodium/D5w 100 Units/Ml IV CONT 0 units/hr .Q0M BARBARA 0 mls/hr Titration Protocol Cefepime HCl 1 gm in 50 mls @ 100 mls/hr 07/08/24 11:00 07/10/24 09:15 Maxipime 1 Gm/Ns 50 Ml IVPB Infused Q12HR BARBARA Infusion Sodium Chloride 250 mls @ 30 mls/hr 07/10/24 06:06 07/10/24 09:07 Normal Saline Iv IV CONT 07/10/24 14:25 30 mls/hr .Q8H20M STA Administration Insulin Aspart 3 - 6 units 06/29/24 12:00 07/10/24 11:00 Insulin Aspart (*Bkc) 100 Units/Ml SUB-Q Not Given Q6HR [facility] Protocol Insulin Glargine 8 units 07/06/24 09:00 07/10/24 10:48 Insulin Glargine (*Bkc) 100 Units/Ml SUB-Q Not Given DAILY BARBARA Levothyroxine Sodium 50 mcg 06/30/24 06:30 07/10/24 06:45 Levothyroxine Sodium 50 Mcg Tablet FEED TUBE 50 mcg DAILY@0630 BARBARA Administration Multi-Ingred Cream/Lotion/Oil/Oint 1 applic 06/29/24 09:00 07/10/24 08:45 Mineral Oil/White Petrolatum Ointment EACH EYE 1 applic Q12HR BARBARA Administration Pantoprazole Sodium 40 mg 07/06/24 21:00 07/10/24 08:45 Pantoprazole Sodium Iv 40 Mg Vial IV PUSH 40 mg Q12HR BARBARA Administration Sodium Chloride 10 ml 06/29/24 14:00 07/10/24 06:45 Central Line Flush IV PUSH 10 ml Q8HR BARBARA Administration Sodium Chloride 10 ml 06/29/24 12:40 Central Line Flush IV PUSH PRN PRN with TPN bag changes Sodium Chloride 20 ml 06/29/24 12:40 Central Line Flush IV PUSH PRN PRN after blood draws Vancomycin HCl 1 each 07/08/24 10:48 Vancomycin For Acute Kidney Injury IVPB PRN PRN Vancomycin Protocol Radiology Results: ITS Impressions Abdomen X-Ray 06/28/24 20:03 IMPRESSION: Nasogastric tube in good position and ready for immediate use. Abdomen Ultrasound 07/03/24 14:12 IMPRESSION: 1. Normal right upper quadrant ultrasound status post cholecystectomy. Renal Ultrasound 07/06/24 08:30 IMPRESSION: 1. No hydronephrosis in either kidney. Head CT 07/08/24 10:08 IMPRESSION: 1. No acute intracranial process. 2. 8 mm calcified extra-axial mass overlying the left parietal lobe most consistent with a meningioma. Chest X-Ray 07/10/24 06:34 IMPRESSION: 1. Airspace opacities in the mid and lower lung zones with worsening at the lung bases, consistent with atelectasis versus pneumonia. 2. Severe emphysema. Labs Labs: Laboratory Results - last 24 hr 07/06/24 07/09/24 07/09/24 06:44 11:39 13:57 WBC RBC Hgb Hct MCV MCH MCHC RDW Plt Count MPV Immature Gran % (Auto) Neut % (Auto) Lymph % (Auto) [place] % (Auto) Eos % (Auto) Baso % (Auto) Lymph # (Auto) [place] # (Auto) Eos # (Auto) Baso # (Auto) Abs Immat Gran (auto) Absolute Neuts (auto) Absolute Nucleated RBC Nucleated RBC % Platelet Estimate Hypochromasia Poikilocytosis Ovalocytes Schistocytes APTT > 200.0 H* Puncture Site ABG pH ABG pCO2 ABG pO2 ABG PO2/FiO2 Ratio ABG HCO3 ABG O2 Saturation ABG O2 Content ABG Base Excess A-a Gradient Oxyhemoglobin Carboxyhemoglobin Methemoglobin Reduced Hemoglobin Total Hemoglobin O2 Delivery Device O2 Liters/Min Minute Volume Vent Rate Vent Mode FiO2 Tidal Volume PEEP Peak Inspir Pressure Pressure Support Sodium Potassium Chloride Carbon Dioxide Anion Gap BUN Creatinine Estim Creat Clear Calc Estimated GFR Glucose POC Capillary Glucose 158 H Lactic Acid Calcium Phosphorus Magnesium Total Bilirubin AST ALT Alkaline Phosphatase Ammonia Total Protein Albumin Aldosterone 1 Vancomycin Trough Blood Type Antibody Screen Crossmatch 07/09/24 07/09/24 07/09/24 14:55 17:18 21:33 WBC RBC Hgb Hct MCV MCH MCHC RDW Plt Count MPV Immature Gran % (Auto) Neut % (Auto) Lymph % (Auto) [place] % (Auto) Eos % (Auto) Baso % (Auto) Lymph # (Auto) [place] # (Auto) Eos # (Auto) Baso # (Auto) Abs Immat Gran (auto) Absolute Neuts (auto) Absolute Nucleated RBC Nucleated RBC % Platelet Estimate Hypochromasia Poikilocytosis Ovalocytes Schistocytes APTT 94.5 H 74.3 H Puncture Site ABG pH ABG pCO2 ABG pO2 ABG PO2/FiO2 Ratio ABG HCO3 ABG O2 Saturation ABG O2 Content ABG Base Excess A-a Gradient Oxyhemoglobin Carboxyhemoglobin Methemoglobin Reduced Hemoglobin Total Hemoglobin O2 Delivery Device O2 Liters/Min Minute Volume Vent Rate Vent Mode FiO2 Tidal Volume PEEP Peak Inspir Pressure Pressure Support Sodium Potassium Chloride Carbon Dioxide Anion Gap BUN Creatinine Estim Creat Clear Calc Estimated GFR Glucose POC Capillary Glucose 155 H Lactic Acid Calcium Phosphorus Magnesium Total Bilirubin AST ALT Alkaline Phosphatase Ammonia Total Protein Albumin Aldosterone Vancomycin Trough Blood Type Antibody Screen Crossmatch 07/10/24 07/10/24 07/10/24 00:08 04:50 04:51 WBC 28.0 H RBC 2.35 L Hgb 6.7 L* Hct 21.2 L MCV 90.2 MCH 28.5 MCHC 31.6 L RDW 18.6 H Plt Count 229 MPV 12.8 H Immature Gran % (Auto) 1.2 H Neut % (Auto) 81.5 H Lymph % (Auto) 7.4 L [place] % (Auto) 8.0 Eos % (Auto) 1.8 Baso % (Auto) 0.1 L Lymph # (Auto) 2.08 [place] # (Auto) 2.3 H Eos # (Auto) 0.5 H Baso # (Auto) 0.0 Abs Immat Gran (auto) 0.33 H Absolute Neuts (auto) 22.8 H Absolute Nucleated RBC 0.060 H Nucleated RBC % 0.2 Platelet Estimate Adequate Hypochromasia 1+ Poikilocytosis 1+ Ovalocytes 1+ Schistocytes None seen APTT 114.6 H Puncture Site Right radial ABG pH 7.415 ABG pCO2 42.6 ABG pO2 59.4 L ABG PO2/FiO2 Ratio 1.70 ABG HCO3 26.7 H ABG O2 Saturation 91.1 L ABG O2 Content 9.0 L ABG Base Excess 2.0 A-a Gradient 140.6 Oxyhemoglobin 88.1 L Carboxyhemoglobin 0.9 Methemoglobin 0.0 Reduced Hemoglobin 11.0 H Total Hemoglobin 7.2 L* O2 Delivery Device Ventilator O2 Liters/Min Not Reportable Minute Volume Not Reportable Vent Rate 16 Vent Mode Cmv FiO2 35 Tidal Volume 480 PEEP 5 Peak Inspir Pressure Not Reportable Pressure Support Not Reportable Sodium 143 Potassium 4.3 Chloride 105 Carbon Dioxide 28 Anion Gap 10 BUN 135 H D Creatinine 2.19 H Estim Creat Clear Calc 19 Estimated GFR 26 L Glucose 136 H POC Capillary Glucose 152 H Lactic Acid 0.7 Calcium 8.8 Phosphorus 5.2 H Magnesium 2.7 H Total Bilirubin 0.4 AST 36 ALT 48 H Alkaline Phosphatase 93 Ammonia < 9 L Total Protein 5.0 L Albumin 3.1 L Aldosterone Vancomycin Trough 15.7 Blood Type Antibody Screen Crossmatch 07/10/24 06:48 WBC RBC Hgb Hct MCV MCH MCHC RDW Plt Count MPV Immature Gran % (Auto) Neut % (Auto) Lymph % (Auto) [place] % (Auto) Eos % (Auto) Baso % (Auto) Lymph # (Auto) [place] # (Auto) Eos # (Auto) Baso # (Auto) Abs Immat Gran (auto) Absolute Neuts (auto) Absolute Nucleated RBC Nucleated RBC % Platelet Estimate Hypochromasia Poikilocytosis Ovalocytes Schistocytes APTT Puncture Site ABG pH ABG pCO2 ABG pO2 ABG PO2/FiO2 Ratio ABG HCO3 ABG O2 Saturation ABG O2 Content ABG Base Excess A-a Gradient Oxyhemoglobin Carboxyhemoglobin Methemoglobin Reduced Hemoglobin Total Hemoglobin O2 Delivery Device O2 Liters/Min Minute Volume Vent Rate Vent Mode FiO2 Tidal Volume PEEP Peak Inspir Pressure Pressure Support Sodium Potassium Chloride Carbon Dioxide Anion Gap BUN Creatinine Estim Creat Clear Calc Estimated GFR Glucose POC Capillary Glucose Lactic Acid Calcium Phosphorus Magnesium Total Bilirubin AST ALT Alkaline Phosphatase Ammonia Total Protein Albumin Aldosterone Vancomycin Trough Blood Type O Positive Antibody Screen Negative Crossmatch See Detail Quality VTE Prophylaxis VTE prophylaxis: pharmacologic ordered
[2024-07-10 11:43] LABS: Glucose Point of Care 125 mg/dl (65-105)
--- NOTE | 2024-07-10 11:45 | P.PNNP_ITS ---
Progress Note: A&P Assessment and Plan (1) RASHEL (acute kidney injury): Code(s): N17.9 - Acute kidney failure, unspecified Status: Acute Assessment and Plan: * acute kidney injury * creatinine has been up and down between 1.41.7 but today is higher at 2.19. * evaluation to date noted: * normal renal ultrasound * urine electrolytes prerenal with fractional excretion of urea at 17% * rare urine eosinophils * CPK mildly elevated - follow trend * moderate proteinuria * will check a urinalysis * etiology not clear but suspicion falls on: * possibly due to relative hypotension - noted systolic BP in the high 80s (on 07/04) * intravascular volume depletion(?) * Septic syndrome * other(?) * urine output 550-1350 over the last few days * s/p IV albumin (on 07/06) for volume expansion * s/p IVF trial(NS for a total of 1L) on 07/07 * BUN elevated: * suspect due to previous steroid use * possibly catabolic state as well(?) * no evidence of GI bleed * respiratory status looks pretty good, and high BUN creatinine ratio. Also renal electrolytes. Will try a little IV fluids. Will use half-normal saline since her sodium is on the high side of normal. * Discussed with Dr. Toney (2) Hyperkalemia: Code(s): E87.5 - Hyperkalemia Status: Acute Assessment and Plan: * resolved (3) Acute on chronic respiratory failure with hypoxia and hypercapnia: Code(s): J96.21 - Acute and chronic respiratory failure with hypoxia; J96.22 - Acute and chronic respiratory failure with hypercapnia Status: Acute Assessment and Plan: * presumably due to COPD exacerbation * complicated by known history of chronic hypoxic/hypercapnic respiratory failure and CHERYL * on ventilator support * on antibiotics, bronchodilators, and steroids * weaned off steroids * ventilator weaning as tolerated. Currently FiO2 30%, peep of 5, and Ve is around 7 (4) Acute exacerbation of chronic obstructive pulmonary disease: Code(s): J44.1 - Chronic obstructive pulmonary disease with (acute) exacerbation Status: Acute Assessment and Plan: * presumed etiology of #3 * continue current therapy (5) Elevated troponin: Code(s): R77.8 - Other specified abnormalities of plasma proteins Status: Acute Assessment and Plan: * felt to be demand ischemia from acute respiratory failure * EKG noted * Cardiology recommendations noted * recent Echo noted (on 06/29): * left ventricular systolic function appears preserved * right ventricle is normal in size and systolic function. * small amount of pericardial effusion with no evidence of cardiac tamponade * ischemic evaluation when more stable (6) Atrial fibrillation with RVR: Code(s): I48.91 - Unspecified atrial fibrillation Status: Acute Assessment and Plan: * SVT noted on evening of 07.06 * s/p IV andenosine with underlying rhythm noted to be AFib RVR * converted to normal sinus rhythm with IV metoprolol x 1 * on 07/07, with weaning of sedation, patient went to AFib RVR again * now on amiodarone for rate control * on heparin drip * Cardiology following (7) Anemia: Code(s): D64.9 - Anemia, unspecified Status: Acute Assessment and Plan: * due to RASHEL and acute illness * however, hemooccult positive * anemia studies without iron deficiency * normal folate * low B12 noted -- IM B12 given * on PPI * GI recommendations noted * getting unit of blood today (8) Elevated LFTs: Code(s): R79.89 - Other specified abnormal findings of blood chemistry Status: Acute Assessment and Plan: * noted on testing since 07/03 * RUQ u/s was normal - status post cholecystectomy * hepatitis panel normal * improving - follow trend discussed with Dr. Toney Subjective Date/time seen: 07/10/24 11:45 Interval history: Patient is on the vent. She is sedated. Off pressors since yesterday. Exam Narrative: General: elderly but WD/WN female intubated/sedated on mechanical ventilation Heart: normal S1 and S2; no rub or gallop Lungs: coarse breath sounds Abdomen: soft, nontender, nondistended, decreased bowel sounds Extremities: no edema Skin: No rash Objective Data Vital Signs Vital Signs: Vital Signs - 24 hr 07/09/24 12:00 07/09/24 12:00 07/09/24 12:00 Temperature 99.2 F Pulse Rate 81 79 Respiratory Rate 16 Blood Pressure 101/67 Pulse Oximetry 93 Oxygen Delivery Fraction of Inspired Oxygen 35 07/09/24 12:00 07/09/24 12:00 07/09/24 12:00 Temperature Pulse Rate 81 80 80 Respiratory Rate 16 16 16 Blood Pressure Pulse Oximetry 93 Oxygen Delivery Mechanical Ventilation Fraction of Inspired Oxygen 35 07/09/24 12:00 07/09/24 12:38 07/09/24 14:00 Temperature Pulse Rate 80 80 75 Respiratory Rate 16 Blood Pressure 101/67 Pulse Oximetry Oxygen Delivery Fraction of Inspired Oxygen 07/09/24 14:00 07/09/24 14:00 07/09/24 14:00 Temperature Pulse Rate 75 75 70 Respiratory Rate 16 Blood Pressure 96/62 L Pulse Oximetry Oxygen Delivery Fraction of Inspired Oxygen 07/09/24 14:00 07/09/24 14:37 07/09/24 14:37 Temperature Pulse Rate 71 70 70 Respiratory Rate 17 16 Blood Pressure 118/78 Pulse Oximetry 95 96 Oxygen Delivery Mechanical Ventilation Fraction of Inspired Oxygen 35 07/09/24 14:46 07/09/24 16:00 07/09/24 16:00 Temperature 99.0 F Pulse Rate 69 76 Respiratory Rate 18 16 Blood Pressure 102/63 Pulse Oximetry 95 Oxygen Delivery Fraction of Inspired Oxygen 35 07/09/24 16:00 07/09/24 16:00 07/09/24 16:00 Temperature Pulse Rate 76 76 76 Respiratory Rate 16 16 16 Blood Pressure Pulse Oximetry 95 Oxygen Delivery Mechanical Ventilation Fraction of Inspired Oxygen 35 07/09/24 16:00 07/09/24 16:00 07/09/24 17:21 Temperature Pulse Rate 76 70 69 Respiratory Rate Blood Pressure 102/63 Pulse Oximetry 97 Oxygen Delivery Mechanical Ventilation Fraction of Inspired Oxygen 35 07/09/24 18:00 07/09/24 18:00 07/09/24 18:00 Temperature Pulse Rate 69 69 69 Respiratory Rate 16 16 Blood Pressure 104/55 L Pulse Oximetry 93 Oxygen Delivery Fraction of Inspired Oxygen 07/09/24 18:00 07/09/24 18:00 07/09/24 19:25 Temperature Pulse Rate 69 69 70 Respiratory Rate 18 Blood Pressure 104/55 L Pulse Oximetry 95 Oxygen Delivery Mechanical Ventilation Fraction of Inspired Oxygen 35 07/09/24 19:25 07/09/24 20:00 07/09/24 20:00 Temperature Pulse Rate 70 71 71 Respiratory Rate 16 16 16 Blood Pressure Pulse Oximetry Oxygen Delivery Fraction of Inspired Oxygen 07/09/24 20:00 07/09/24 20:00 07/09/24 20:00 Temperature Pulse Rate 71 Respiratory Rate Blood Pressure 105/62 Pulse Oximetry Oxygen Delivery Mechanical Ventilation Fraction of Inspired Oxygen 35 35 07/09/24 20:00 07/09/24 20:03 07/09/24 20:31 Temperature 99.1 F Pulse Rate 70 71 71 Respiratory Rate 18 20 Blood Pressure 105/62 Pulse Oximetry 95 Oxygen Delivery Fraction of Inspired Oxygen 07/09/24 20:33 07/09/24 20:45 07/09/24 22:00 Temperature Pulse Rate 72 71 74 Respiratory Rate 16 16 Blood Pressure Pulse Oximetry Oxygen Delivery Fraction of Inspired Oxygen 07/09/24 22:00 07/09/24 22:00 07/09/24 22:00 Temperature Pulse Rate 74 74 74 Respiratory Rate 16 Blood Pressure 125/64 Pulse Oximetry Oxygen Delivery Fraction of Inspired Oxygen 07/09/24 22:06 07/09/24 22:35 07/10/24 00:00 Temperature 99.1 F 99.2 F Pulse Rate 72 72 67 Respiratory Rate 20 24 H Blood Pressure 125/64 102/60 Pulse Oximetry 94 94 95 Oxygen Delivery Mechanical Ventilation Fraction of Inspired Oxygen 35 07/10/24 00:00 07/10/24 00:00 07/10/24 00:00 Temperature Pulse Rate 67 67 Respiratory Rate 16 16 Blood Pressure Pulse Oximetry Oxygen Delivery Mechanical Ventilation Fraction of Inspired Oxygen 35 07/10/24 00:00 07/10/24 00:00 07/10/24 00:00 Temperature Pulse Rate 67 67 Respiratory Rate Blood Pressure 102/60 Pulse Oximetry Oxygen Delivery Fraction of Inspired Oxygen 35 07/10/24 01:48 07/10/24 01:48 07/10/24 02:00 Temperature 99.1 F Pulse Rate 70 70 69 Respiratory Rate 17 22 H Blood Pressure 122/63 Pulse Oximetry 93 93 Oxygen Delivery Mechanical Ventilation Fraction of Inspired Oxygen 35 07/10/24 02:00 07/10/24 02:00 07/10/24 02:00 Temperature Pulse Rate 69 69 69 Respiratory Rate 16 16 Blood Pressure Pulse Oximetry Oxygen Delivery Fraction of Inspired Oxygen 07/10/24 02:00 07/10/24 02:17 07/10/24 04:00 Temperature Pulse Rate 69 72 Respiratory Rate 16 Blood Pressure 122/63 Pulse Oximetry Oxygen Delivery Fraction of Inspired Oxygen 35 07/10/24 04:00 07/10/24 04:00 07/10/24 04:00 Temperature 98.6 F Pulse Rate 70 70 70 Respiratory Rate 16 16 16 Blood Pressure 122/110 H Pulse Oximetry 96 Oxygen Delivery Fraction of Inspired Oxygen 07/10/24 04:00 07/10/24 04:00 07/10/24 04:00 Temperature Pulse Rate 70 70 Respiratory Rate Blood Pressure 122/110 H Pulse Oximetry Oxygen Delivery Mechanical Ventilation Fraction of Inspired Oxygen 35 07/10/24 05:00 07/10/24 06:00 07/10/24 06:00 Temperature 98.1 F Pulse Rate 68 67 67 Respiratory Rate 16 16 Blood Pressure 112/55 L Pulse Oximetry 93 67 L Oxygen Delivery Mechanical Ventilation Fraction of Inspired Oxygen 35 07/10/24 06:00 07/10/24 06:00 07/10/24 06:00 Temperature Pulse Rate 67 67 67 Respiratory Rate 16 Blood Pressure 112/55 L Pulse Oximetry Oxygen Delivery Fraction of Inspired Oxygen 07/10/24 08:00 07/10/24 08:00 07/10/24 08:00 Temperature 98.0 F Pulse Rate 66 69 Respiratory Rate 21 H 16 Blood Pressure 114/55 L Pulse Oximetry 93 Oxygen Delivery Fraction of Inspired Oxygen 35 07/10/24 08:00 07/10/24 08:00 07/10/24 08:00 Temperature Pulse Rate 69 66 Respiratory Rate 16 Blood Pressure Pulse Oximetry 100 Oxygen Delivery Mechanical Ventilation Fraction of Inspired Oxygen 35 07/10/24 08:00 07/10/24 08:45 07/10/24 08:48 Temperature Pulse Rate 67 67 67 Respiratory Rate 17 Blood Pressure 114/55 L Pulse Oximetry Oxygen Delivery Fraction of Inspired Oxygen 07/10/24 08:50 07/10/24 09:07 07/10/24 09:22 Temperature 98.1 F 98 F Pulse Rate 67 68 69 Respiratory Rate 16 16 Blood Pressure 131/54 L 141/57 H Pulse Oximetry 92 93 93 Oxygen Delivery Mechanical Ventilation Fraction of Inspired Oxygen 35 07/10/24 10:00 07/10/24 10:00 07/10/24 10:00 Temperature 98 F Pulse Rate 69 69 69 Respiratory Rate 16 16 Blood Pressure 159/57 H Pulse Oximetry 100 Oxygen Delivery Fraction of Inspired Oxygen 07/10/24 10:00 07/10/24 10:00 07/10/24 10:22 Temperature 98.1 F Pulse Rate 69 70 67 Respiratory Rate 16 16 Blood Pressure 159/57 H 124/55 L Pulse Oximetry 93 Oxygen Delivery Fraction of Inspired Oxygen 07/10/24 10:58 07/10/24 11:16 Temperature 98.1 F Pulse Rate 66 68 Respiratory Rate 16 Blood Pressure 118/53 L Pulse Oximetry 91 94 Oxygen Delivery Mechanical Ventilation Fraction of Inspired Oxygen 35 Intake/Output Intake/Output: Intake & Output 07/07/24 07/08/24 07/09/24 07/10/24 23:59 23:59 23:59 23:59 Intake Total 2150.4 3331.3 2401.4 1067.6 Output Total 1250 1350 550 350 Balance 900.4 1981.3 1851.4 717.6 Meds/Results Medications: Active Medications Generic Name Dose Route Start Last Admin Trade Name Freq PRN Reason Stop Dose Admin Albuterol/Ipratropium 3 ml 06/29/24 02:00 07/10/24 08:48 Ipratropium 0.5 Mg/Albuterol Sulfate 2.5 Mg Ampul.Neb 3 Ml INHALATION 3 ml Q6HRT BARBARA Administration Amiodarone HCl 400 mg 07/09/24 12:20 07/10/24 08:45 Amiodarone Hcl 200 Mg Tablet PO 400 mg Q12HR BARBARA Administration Aspirin 81 mg 07/01/24 08:00 07/10/24 08:45 Aspirin 81 Mg Chewable Tablet PO 81 mg DAILY@0800 BARBARA Administration Atorvastatin Calcium 40 mg 06/29/24 09:00 07/10/24 08:45 Atorvastatin 40 Mg Tablet PO 40 mg DAILY BARBARA Administration Cyanocobalamin 1,000 mcg 07/07/24 12:00 07/07/24 13:35 Cyanocobalamin Inj 1,000 Mcg/Ml Vial IM 07/14/24 09:01 1,000 mcg WEEKLY BARBARA Administration Dextrose 12.5 gm 06/29/24 08:08 Dextrose 50% 25 Gm/50 Ml Syringe IV PUSH PRN PRN Hypoglycemia Protocol Glucagon 1 mg 06/29/24 08:08 Glucagon For Inj 1 Mg Vial IM PRN PRN Hypoglycemia Protocol Glucose 15 gm 06/29/24 08:08 Glucose Oral Gel 15 Gm Of Glucse In 37.5 Gm Tube PO PRN PRN Hypoglycemia Protocol Heparin Sodium (Porcine) 5,000 units 07/07/24 11:24 Heparin Sodium 5,000 Units/Ml Vial IV PUSH PRN PRN aPTT less than 55 seconds Heparin Sodium (Porcine) 2,500 units 07/07/24 11:24 07/09/24 07:21 Heparin Sodium 5,000 Units/Ml Vial IV PUSH 2,500 units PRN PRN Administration aPTT 55 - 70 seconds Hydralazine HCl 10 mg 07/06/24 16:42 07/06/24 17:03 Hydralazine Hcl 20 Mg/Ml Vial IV PUSH 10 mg Q4H PRN Administration Blood Pressure - High Dextrose 1,000 mls @ 100 mls/hr 06/29/24 08:08 Dextrose 5% 1,000 Ml IVPB PRN PRN Hypoglycemia Protocol Fentanyl Citrate 2,500 mcg in 250 mls @ 5 mls/hr 07/06/24 17:55 07/10/24 10:00 Fentanyl 2,500 Mcg/Ns 250 Ml IV CONT 50 mcg/hr .Q50H BARBARA 5 mls/hr Titration Protocol 50 MCG/HR Midazolam HCl 100 mg in 100 mls @ 2 mls/hr 07/06/24 17:55 07/10/24 10:00 Versed 100 Mg/Ns 100 Ml IV CONT 2 mg/hr .Q50H BARBARA 2 mls/hr Titration Protocol 2 MG/HR Heparin Sodium/Dextrose 25,000 units in 250 mls @ 0 mls/hr 07/07/24 11:25 07/10/24 08:52 Heparin Sodium/D5w 100 Units/Ml IV CONT 0 units/hr .Q0M BARBARA 0 mls/hr Titration Protocol Cefepime HCl 1 gm in 50 mls @ 100 mls/hr 07/08/24 11:00 07/10/24 09:15 Maxipime 1 Gm/Ns 50 Ml IVPB Infused Q12HR BARBARA Infusion Sodium Chloride 250 mls @ 30 mls/hr 07/10/24 06:06 07/10/24 09:07 Normal Saline Iv IV CONT 07/10/24 14:25 30 mls/hr .Q8H20M STA Administration Insulin Aspart 3 - 6 units 06/29/24 12:00 07/10/24 11:00 Insulin Aspart (*Bkc) 100 Units/Ml SUB-Q Not Given Q6HR [facility] Protocol Insulin Glargine 8 units 07/06/24 09:00 07/10/24 10:48 Insulin Glargine (*Bkc) 100 Units/Ml SUB-Q Not Given DAILY [facility] Levothyroxine Sodium 50 mcg 06/30/24 06:30 07/10/24 06:45 Levothyroxine Sodium 50 Mcg Tablet FEED TUBE 50 mcg DAILY@0630 BARBARA Administration Multi-Ingred Cream/Lotion/Oil/Oint 1 applic 06/29/24 09:00 07/10/24 08:45 Mineral Oil/White Petrolatum Ointment EACH EYE 1 applic Q12HR BARBARA Administration Pantoprazole Sodium 40 mg 07/06/24 21:00 07/10/24 08:45 Pantoprazole Sodium Iv 40 Mg Vial IV PUSH 40 mg Q12HR BARBARA Administration Sodium Chloride 10 ml 06/29/24 14:00 07/10/24 06:45 Central Line Flush IV PUSH 10 ml Q8HR BARBARA Administration Sodium Chloride 10 ml 06/29/24 12:40 Central Line Flush IV PUSH PRN PRN with TPN bag changes Sodium Chloride 20 ml 06/29/24 12:40 Central Line Flush IV PUSH PRN PRN after blood draws Vancomycin HCl 1 each 07/08/24 10:48 Vancomycin For Acute Kidney Injury IVPB PRN PRN Vancomycin Protocol Radiology Results: ITS Impressions Abdomen X-Ray 06/28/24 20:03 IMPRESSION: Nasogastric tube in good position and ready for immediate use. Abdomen Ultrasound 07/03/24 14:12 IMPRESSION: 1. Normal right upper quadrant ultrasound status post cholecystectomy. Renal Ultrasound 07/06/24 08:30 IMPRESSION: 1. No hydronephrosis in either kidney. Head CT 07/08/24 10:08 IMPRESSION: 1. No acute intracranial process. 2. 8 mm calcified extra-axial mass overlying the left parietal lobe most consistent with a meningioma. Chest X-Ray 07/10/24 06:34 IMPRESSION: 1. Airspace opacities in the mid and lower lung zones with worsening at the lung bases, consistent with atelectasis versus pneumonia. 2. Severe emphysema. Labs Labs: Laboratory Results - last 24 hr 07/06/24 07/09/24 07/09/24 06:44 11:39 13:57 WBC RBC Hgb Hct MCV MCH MCHC RDW Plt Count MPV Immature Gran % (Auto) Neut % (Auto) Lymph % (Auto) [place] % (Auto) Eos % (Auto) Baso % (Auto) Lymph # (Auto) [place] # (Auto) Eos # (Auto) Baso # (Auto) Abs Immat Gran (auto) Absolute Neuts (auto) Absolute Nucleated RBC Nucleated RBC % Platelet Estimate Hypochromasia Poikilocytosis Ovalocytes Schistocytes APTT > 200.0 H* Puncture Site ABG pH ABG pCO2 ABG pO2 ABG PO2/FiO2 Ratio ABG HCO3 ABG O2 Saturation ABG O2 Content ABG Base Excess A-a Gradient Oxyhemoglobin Carboxyhemoglobin Methemoglobin Reduced Hemoglobin Total Hemoglobin O2 Delivery Device O2 Liters/Min Minute Volume Vent Rate Vent Mode FiO2 Tidal Volume PEEP Peak Inspir Pressure Pressure Support Sodium Potassium Chloride Carbon Dioxide Anion Gap BUN Creatinine Estim Creat Clear Calc Estimated GFR Glucose POC Capillary Glucose 158 H Lactic Acid Calcium Phosphorus Magnesium Total Bilirubin AST ALT Alkaline Phosphatase Ammonia Total Protein Albumin Aldosterone 1 Vancomycin Trough Blood Type Antibody Screen Crossmatch 07/09/24 07/09/24 07/09/24 14:55 17:18 21:33 WBC RBC Hgb Hct MCV MCH MCHC RDW Plt Count MPV Immature Gran % (Auto) Neut % (Auto) Lymph % (Auto) [place] % (Auto) Eos % (Auto) Baso % (Auto) Lymph # (Auto) [place] # (Auto) Eos # (Auto) Baso # (Auto) Abs Immat Gran (auto) Absolute Neuts (auto) Absolute Nucleated RBC Nucleated RBC % Platelet Estimate Hypochromasia Poikilocytosis Ovalocytes Schistocytes APTT 94.5 H 74.3 H Puncture Site ABG pH ABG pCO2 ABG pO2 ABG PO2/FiO2 Ratio ABG HCO3 ABG O2 Saturation ABG O2 Content ABG Base Excess A-a Gradient Oxyhemoglobin Carboxyhemoglobin Methemoglobin Reduced Hemoglobin Total Hemoglobin O2 Delivery Device O2 Liters/Min Minute Volume Vent Rate Vent Mode FiO2 Tidal Volume PEEP Peak Inspir Pressure Pressure Support Sodium Potassium Chloride Carbon Dioxide Anion Gap BUN Creatinine Estim Creat Clear Calc Estimated GFR Glucose POC Capillary Glucose 155 H Lactic Acid Calcium Phosphorus Magnesium Total Bilirubin AST ALT Alkaline Phosphatase Ammonia Total Protein Albumin Aldosterone Vancomycin Trough Blood Type Antibody Screen Crossmatch 07/10/24 07/10/24 07/10/24 00:08 04:50 04:51 WBC 28.0 H RBC 2.35 L Hgb 6.7 L* Hct 21.2 L MCV 90.2 MCH 28.5 MCHC 31.6 L RDW 18.6 H Plt Count 229 MPV 12.8 H Immature Gran % (Auto) 1.2 H Neut % (Auto) 81.5 H Lymph % (Auto) 7.4 L [place] % (Auto) 8.0 Eos % (Auto) 1.8 Baso % (Auto) 0.1 L Lymph # (Auto) 2.08 [place] # (Auto) 2.3 H Eos # (Auto) 0.5 H Baso # (Auto) 0.0 Abs Immat Gran (auto) 0.33 H Absolute Neuts (auto) 22.8 H Absolute Nucleated RBC 0.060 H Nucleated RBC % 0.2 Platelet Estimate Adequate Hypochromasia 1+ Poikilocytosis 1+ Ovalocytes 1+ Schistocytes None seen APTT 114.6 H Puncture Site Right radial ABG pH 7.415 ABG pCO2 42.6 ABG pO2 59.4 L ABG PO2/FiO2 Ratio 1.70 ABG HCO3 26.7 H ABG O2 Saturation 91.1 L ABG O2 Content 9.0 L ABG Base Excess 2.0 A-a Gradient 140.6 Oxyhemoglobin 88.1 L Carboxyhemoglobin 0.9 Methemoglobin 0.0 Reduced Hemoglobin 11.0 H Total Hemoglobin 7.2 L* O2 Delivery Device Ventilator O2 Liters/Min Not Reportable Minute Volume Not Reportable Vent Rate 16 Vent Mode Cmv FiO2 35 Tidal Volume 480 PEEP 5 Peak Inspir Pressure Not Reportable Pressure Support Not Reportable Sodium 143 Potassium 4.3 Chloride 105 Carbon Dioxide 28 Anion Gap 10 BUN 135 H D Creatinine 2.19 H Estim Creat Clear Calc 19 Estimated GFR 26 L Glucose 136 H POC Capillary Glucose 152 H Lactic Acid 0.7 Calcium 8.8 Phosphorus 5.2 H Magnesium 2.7 H Total Bilirubin 0.4 AST 36 ALT 48 H Alkaline Phosphatase 93 Ammonia < 9 L Total Protein 5.0 L Albumin 3.1 L Aldosterone Vancomycin Trough 15.7 Blood Type Antibody Screen Crossmatch 07/10/24 07/10/24 06:48 10:59 WBC RBC Hgb Hct MCV MCH MCHC RDW Plt Count MPV Immature Gran % (Auto) Neut % (Auto) Lymph % (Auto) [place] % (Auto) Eos % (Auto) Baso % (Auto) Lymph # (Auto) [place] # (Auto) Eos # (Auto) Baso # (Auto) Abs Immat Gran (auto) Absolute Neuts (auto) Absolute Nucleated RBC Nucleated RBC % Platelet Estimate Hypochromasia Poikilocytosis Ovalocytes Schistocytes APTT Puncture Site ABG pH ABG pCO2 ABG pO2 ABG PO2/FiO2 Ratio ABG HCO3 ABG O2 Saturation ABG O2 Content ABG Base Excess A-a Gradient Oxyhemoglobin Carboxyhemoglobin Methemoglobin Reduced Hemoglobin Total Hemoglobin O2 Delivery Device O2 Liters/Min Minute Volume Vent Rate Vent Mode FiO2 Tidal Volume PEEP Peak Inspir Pressure Pressure Support Sodium Potassium Chloride Carbon Dioxide Anion Gap BUN Creatinine Estim Creat Clear Calc Estimated GFR Glucose POC Capillary Glucose 125 H Lactic Acid Calcium Phosphorus Magnesium Total Bilirubin AST ALT Alkaline Phosphatase Ammonia Total Protein Albumin Aldosterone Vancomycin Trough Blood Type O Positive Antibody Screen Negative Crossmatch See Detail
--- NOTE | 2024-07-10 11:55 | WPDINTPN ---
Progress Note: A&P Assessment and Plan (1) Atrial fibrillation with RVR: Code(s): I48.91 - Unspecified atrial fibrillation Status: Acute Assessment and Plan: 07/06 evening: Patient went into SVT, status post tenderness and 6 mg and 12 mg, underlying rhythm was AFib RVR, converted to normal sinus rhythm with IV metoprolol x1 and increasing her sedation. Patient remained in sinus rhythm also the morning of 07/07/2024. 07/07: Started weaning her sedation again today, patient went to AFib RVR, -hold heparin infusion due to drop in hemoglobin coffee-ground emesis -07/06; TSH level within normal limits, troponin level with no change since admission -EKG showed AFib RVR, discussed with cardiology, 07/08: In the evening patient went into AFib RVR again, requiring an amiodarone bolus, increased amiodarone infusion to 1 mg/min. Patient dropped her blood pressures and heart rate so amiodarone infusion was held. Patient was started on Robert-Synephrine. 07/09: Patient was hypertensive, Robert-Synephrine was discontinued. Cardiology recommended starting p.o. amiodarone which was ordered. Also recommended metoprolol which currently have not started because borderline blood pressures and she just came off Robert-Synephrine (2) Acute on chronic respiratory failure with hypoxia and hypercapnia: Code(s): J96.21 - Acute and chronic respiratory failure with hypoxia; J96.22 - Acute and chronic respiratory failure with hypercapnia Status: Acute Assessment and Plan: Acute on chronic respiratory failure secondary to severe COPD exacerbation. Community-acquired pneumonia although chest x-ray is not suggestive and patient is low procalcitonin level. WBC elevated MRSA screen negative 06/28/2024: Intubated in the ED 06/28: Blood cultures negative x2 -status post says 8 days of ceftriaxone -status post 5 days of doxycycline -DC vancomycin (06/29), MRSA screen negative 07/02: Patient did have high peak pressures, after switching her from propofol to fentanyl and Versed due to elevated triglycerides. She was started on Nimbex infusion which improved her oxygenation, respiratory status and improved air entry. 07/03: Remains on Nimbex, adequate air entry, peak pressures are within normal limits continue fentanyl Versed infusion for now, will start weaning Nimbex, will maintain RASS of 0 to -2 on sedation meds 07/04: Chest x-ray, ABGs reviewed, ventilator adjusted, increased respiratory rate 22 and increased FiO2 to 45%, maintain O2 sats greater than 90%. Have also asked the bedside RN to start weaning the Nimbex to off -07/05: Patient has prolonged expiratory phase, decrease respiratory rate, increased I to E ratio, increased tidal volume. Will repeat ABGs -Continue bronchodilators, -off Solu-Medrol -07/05 and 07/06: off all sedation, will try to place patient on SBT when she is more awake. If she requires any kind of sedation will start Precedex infusion. Patient did not tolerate being off on sedation and went into SVT and AFib RVR. Once sedation was placed back on patient converted to sinus rhythm with regular rate. 07/07: Sedation was weaned again this morning, patient was started on Precedex infusion site could place her on a a breathing trial to evaluate for extubation. Patient again went into AFib RVR, sedation was reinstated 07/08: Tolerating mechanical ventilation, ABGs look good, chest x-ray shows worsening haziness in left lung base, likely developing pneumonia. Patient is WBC count has increased to 20,000, will obtain blood cultures, start cefepime and vancomycin of possible ventilator associated pneumonia 07/09: discussed with William, updated him with patient's condition and plan of care. I discussed with him 6 worsening chest x-ray, possible developing pneumonia with elevated WBC 6. That she would require tracheostomy and PEG tube placement to which she was agreeable, he stated will have to do everything to keep her alive. 07/10: Patient is being seen a and Gastroenterology for possible trach placement as was PE based on Consulted Dr. Zhang, [phone] (cell), discussed with him regarding tracheostomy for the patient. He is going to be coming to evaluate the patient today (3) Acute exacerbation of chronic obstructive pulmonary disease: Code(s): J44.1 - Chronic obstructive pulmonary disease with (acute) exacerbation Status: Acute Assessment and Plan: Continue mechanical ventilation, bronchodilators, antibiotics, (4) Elevated troponin: Code(s): R77.8 - Other specified abnormalities of plasma proteins Status: Acute Assessment and Plan: Patient has elevated troponin likely secondary to demand ischemia from acute respiratory failure. EKG reviewed and does not show any ST elevation. Patient does not have any documented history of coronary disease. Troponins trending down Continue aspirin 81 mg p.o. daily and statin Appreciate cardiology evaluation and recommendation 06/29/2024: Echocardiogram Summary 1. The left ventricle is normal in size with thickened left ventricular rodríguez. The overall left ventricular systolic function appears preserved. Cannot rule out very mild hypokinesis of the apical wall. 2. The right ventricle is normal in size and systolic function. 3. The there is a small amount of pericardial effusion with no echocardiographic evidence of cardiac tamponade. (5) Hypothyroidism: Code(s): E03.9 - Hypothyroidism, unspecified Status: Acute Assessment and Plan: Continue levothyroxine. -07/06: TSH level - within normal limits (6) Electrolyte abnormality: Code(s): E87.8 - Other disorders of electrolyte and fluid balance, not elsewhere classified Status: Acute Assessment and Plan: Potassium levels within normal limits -appreciate Nephrology evaluation and recommendations (7) Elevated LFTs: Code(s): R79.89 - Other specified abnormal findings of blood chemistry Status: Acute Assessment and Plan: Right upper quadrant ultrasound was normal, status post cholecystectomy -hepatitis panel was within normal limit (8) RASHEL (acute kidney injury): Code(s): N17.9 - Acute kidney failure, unspecified Status: Acute Assessment and Plan: Acute kidney injury, likely related to hypotension, intravascular volume depletion, BUN elevated likely related to steroids -nephrology has been consulted and appreciate the evaluation and recommendation -discuss with Nephrology, will start albumin 25% x4 doses since she may be intravascularly depleted -monitor urine output, renal function electrolytes 07/06: Renal ultrasound: No hydronephrosis in either kidney. -urine lytes not reflective of prerenal picture -CKD levels elevated to 813 07/07: Patient may more urine overnight, creatinine trending down. Discuss with Nephrology, will give 1 L IV fluids over 10 hours 07/08: Urine output has improved, creatinine trending down. Low potassium levels will replete due to AFib RVR 07/09: Urine output is adequate, creatinine increased likely related to hypotension, AFib RVR. Will continue to monitor nephrology also following. Potassium levels are normal (9) Hyperglycemia: Code(s): R73.9 - Hyperglycemia, unspecified Status: Acute Assessment and Plan: Hyperglycemia likely related to tube feeds and or steroid -weaning steroid -continue Accu-Cheks and sliding scale insulin, -continue Lantus. (10) Anemia: Code(s): D64.9 - Anemia, unspecified Status: Acute Assessment and Plan: Patient dropped her hemoglobin to 8.3 from 10.9 (07/05) -07/06/2024: Stool occult was positive -iron panel did not show any iron deficiency, normal folate level -low vitamin B12 level, will give IM cyanocobalamin weekly x2 doses -continue Protonix to IV q.12 hours -appreciate GI evaluation , no endoscopy recommended at this time -hemoglobin remains stable (11) Encephalopathy: Code(s): G93.40 - Encephalopathy, unspecified Status: Acute Assessment and Plan: Patient opens her eyes but does not follow simple commands, upper extremities are flaccid, pupils are equal and reactive, patient grimaces to pain but does not withdraw to pain stimulus -07/08: stat CT scan of the brain: 1. No acute intracranial process.2. 8 mm calcified extra-axial mass overlying the left parietal lobe most consistent with a meningioma. -ammonia level <9 -continue to monitor Plan DVT prophylaxis -heparin infusion Stress ulcer prophylaxis -PPI IV q.12 hours Nutrition -tolerating tube feeds Code Status - Full Code Total Critical Care Time - 36 minutes -discussed with Nephrology and Cardiology 07/09: discussed with William, updated him with patient's condition and plan of care. I discussed with him 6 worsening chest x-ray, possible developing pneumonia with elevated WBC 6. That she would require tracheostomy and PEG tube placement to which she was agreeable, he stated will have to do everything to keep her alive. Consulted Dr. Zhang, [phone] (cell), discussed with him regarding tracheostomy for the patient. He is going to be coming to evaluate the patient today Due to a high probability of clinically significant, life threatening deterioration, the patient required my highest level of preparedness to intervene emergently and I personally spent this critical care time directly and personally managing the patient. This critical care time included obtaining a history; examining the patient; pulse oximetry; ordering and review of studies; arranging urgent treatment with development of a management plan; evaluation of patient's response to treatment; frequent reassessment; and discussions with other providers. It was exclusive of separately billable procedures and treating other patients and teaching time. Please see Assessment and Plan section and the rest of the note for further information on patient assessment and treatment This dictation may have been done utilizing a voice recognition system. Attempts have been made to correct errors. However, there may be uncorrected grammatical, spelling, and recognitions errors present. Subjective Date/time seen: 07/10/24 11:55 Interval history: Reason for consult: COPD exacerbation, acute hypercapnic respiratory failure, NSTEMI with elevated troponin 05/07: CT brain was negative, was done for encephalopathy 07/10/2024: Patient seen examined the ICU, remains intubated on CMV mode of ventilation, peep of 5, 35% FiO2. Sedated with fentanyl and Versed infusion, opens eyes but does not follow simple commands. Patient remained in sinus rhythm, rate control. Dropped hemoglobin to 6.7 this morning. Patient being transfuse 1 unit packed RBCs. Urine output has been adequate, hemodynamically stable. Patient was switched to p.o. amiodarone yesterday on 05/08/2025. Review of Systems Review of Systems: ROS unobtainable: Yes unobtainable due to endotracheal tube, unobtainable due to medical condition and unobtainable due to mental status Exam Narrative: General: Pt is sedated and intubated and on mechanical ventilation Lungs/Chest: Trachea central, better air entry this morning, no wheezing or rales. Cardiac: Irregularly irregular, tachycardic. No murmurs Circulation: Pedal pulses are intact and symmetrical. Abdomen: Decreased bowel sounds. Obese. Soft. NT. ND. Extremities: No clubbing, cyanosis or edema. Warm : [place] in place Neurologic: Intubated, sedated opens her eyes but does not follow simple commands, grimaces to pain but does not withdraw. Upper extremities were flaccid. Pupils equal and reactive. Objective Data Vital Signs Vital Signs: Vital Signs - 24 hr 07/09/24 12:00 07/09/24 12:00 07/09/24 12:00 Temperature 99.2 F Pulse Rate 81 79 Respiratory Rate 16 Blood Pressure 101/67 Pulse Oximetry 93 Oxygen Delivery Fraction of Inspired Oxygen 35 07/09/24 12:00 07/09/24 12:00 07/09/24 12:00 Temperature Pulse Rate 81 80 80 Respiratory Rate 16 16 16 Blood Pressure Pulse Oximetry 93 Oxygen Delivery Mechanical Ventilation Fraction of Inspired Oxygen 35 07/09/24 12:00 07/09/24 12:38 07/09/24 14:00 Temperature Pulse Rate 80 80 75 Respiratory Rate 16 Blood Pressure 101/67 Pulse Oximetry Oxygen Delivery Fraction of Inspired Oxygen 07/09/24 14:00 07/09/24 14:00 07/09/24 14:00 Temperature Pulse Rate 75 75 70 Respiratory Rate 16 Blood Pressure 96/62 L Pulse Oximetry Oxygen Delivery Fraction of Inspired Oxygen 07/09/24 14:00 07/09/24 14:37 07/09/24 14:37 Temperature Pulse Rate 71 70 70 Respiratory Rate 17 16 Blood Pressure 118/78 Pulse Oximetry 95 96 Oxygen Delivery Mechanical Ventilation Fraction of Inspired Oxygen 35 07/09/24 14:46 07/09/24 16:00 07/09/24 16:00 Temperature 99.0 F Pulse Rate 69 76 Respiratory Rate 18 16 Blood Pressure 102/63 Pulse Oximetry 95 Oxygen Delivery Fraction of Inspired Oxygen 35 07/09/24 16:00 07/09/24 16:00 07/09/24 16:00 Temperature Pulse Rate 76 76 76 Respiratory Rate 16 16 16 Blood Pressure Pulse Oximetry 95 Oxygen Delivery Mechanical Ventilation Fraction of Inspired Oxygen 35 07/09/24 16:00 07/09/24 16:00 07/09/24 17:21 Temperature Pulse Rate 76 70 69 Respiratory Rate Blood Pressure 102/63 Pulse Oximetry 97 Oxygen Delivery Mechanical Ventilation Fraction of Inspired Oxygen 35 07/09/24 18:00 07/09/24 18:00 07/09/24 18:00 Temperature Pulse Rate 69 69 69 Respiratory Rate 16 16 Blood Pressure 104/55 L Pulse Oximetry 93 Oxygen Delivery Fraction of Inspired Oxygen 07/09/24 18:00 07/09/24 18:00 07/09/24 19:25 Temperature Pulse Rate 69 69 70 Respiratory Rate 18 Blood Pressure 104/55 L Pulse Oximetry 95 Oxygen Delivery Mechanical Ventilation Fraction of Inspired Oxygen 35 07/09/24 19:25 07/09/24 20:00 07/09/24 20:00 Temperature Pulse Rate 70 71 71 Respiratory Rate 16 16 16 Blood Pressure Pulse Oximetry Oxygen Delivery Fraction of Inspired Oxygen 07/09/24 20:00 07/09/24 20:00 07/09/24 20:00 Temperature Pulse Rate 71 Respiratory Rate Blood Pressure 105/62 Pulse Oximetry Oxygen Delivery Mechanical Ventilation Fraction of Inspired Oxygen 35 35 07/09/24 20:00 07/09/24 20:03 07/09/24 20:31 Temperature 99.1 F Pulse Rate 70 71 71 Respiratory Rate 18 20 Blood Pressure 105/62 Pulse Oximetry 95 Oxygen Delivery Fraction of Inspired Oxygen 07/09/24 20:33 07/09/24 20:45 07/09/24 22:00 Temperature Pulse Rate 72 71 74 Respiratory Rate 16 16 Blood Pressure Pulse Oximetry Oxygen Delivery Fraction of Inspired Oxygen 07/09/24 22:00 07/09/24 22:00 07/09/24 22:00 Temperature Pulse Rate 74 74 74 Respiratory Rate 16 Blood Pressure 125/64 Pulse Oximetry Oxygen Delivery Fraction of Inspired Oxygen 07/09/24 22:06 07/09/24 22:35 07/10/24 00:00 Temperature 99.1 F 99.2 F Pulse Rate 72 72 67 Respiratory Rate 20 24 H Blood Pressure 125/64 102/60 Pulse Oximetry 94 94 95 Oxygen Delivery Mechanical Ventilation Fraction of Inspired Oxygen 35 07/10/24 00:00 07/10/24 00:00 07/10/24 00:00 Temperature Pulse Rate 67 67 Respiratory Rate 16 16 Blood Pressure Pulse Oximetry Oxygen Delivery Mechanical Ventilation Fraction of Inspired Oxygen 35 07/10/24 00:00 07/10/24 00:00 07/10/24 00:00 Temperature Pulse Rate 67 67 Respiratory Rate Blood Pressure 102/60 Pulse Oximetry Oxygen Delivery Fraction of Inspired Oxygen 35 07/10/24 01:48 07/10/24 01:48 07/10/24 02:00 Temperature 99.1 F Pulse Rate 70 70 69 Respiratory Rate 17 22 H Blood Pressure 122/63 Pulse Oximetry 93 93 Oxygen Delivery Mechanical Ventilation Fraction of Inspired Oxygen 35 07/10/24 02:00 07/10/24 02:00 07/10/24 02:00 Temperature Pulse Rate 69 69 69 Respiratory Rate 16 16 Blood Pressure Pulse Oximetry Oxygen Delivery Fraction of Inspired Oxygen 07/10/24 02:00 07/10/24 02:17 07/10/24 04:00 Temperature Pulse Rate 69 72 Respiratory Rate 16 Blood Pressure 122/63 Pulse Oximetry Oxygen Delivery Fraction of Inspired Oxygen 35 07/10/24 04:00 07/10/24 04:00 07/10/24 04:00 Temperature 98.6 F Pulse Rate 70 70 70 Respiratory Rate 16 16 16 Blood Pressure 122/110 H Pulse Oximetry 96 Oxygen Delivery Fraction of Inspired Oxygen 07/10/24 04:00 07/10/24 04:00 07/10/24 04:00 Temperature Pulse Rate 70 70 Respiratory Rate Blood Pressure 122/110 H Pulse Oximetry Oxygen Delivery Mechanical Ventilation Fraction of Inspired Oxygen 35 07/10/24 05:00 07/10/24 06:00 07/10/24 06:00 Temperature 98.1 F Pulse Rate 68 67 67 Respiratory Rate 16 16 Blood Pressure 112/55 L Pulse Oximetry 93 67 L Oxygen Delivery Mechanical Ventilation Fraction of Inspired Oxygen 35 07/10/24 06:00 07/10/24 06:00 07/10/24 06:00 Temperature Pulse Rate 67 67 67 Respiratory Rate 16 Blood Pressure 112/55 L Pulse Oximetry Oxygen Delivery Fraction of Inspired Oxygen 07/10/24 08:00 07/10/24 08:00 07/10/24 08:00 Temperature 98.0 F Pulse Rate 66 69 Respiratory Rate 21 H 16 Blood Pressure 114/55 L Pulse Oximetry 93 Oxygen Delivery Fraction of Inspired Oxygen 35 07/10/24 08:00 07/10/24 08:00 07/10/24 08:00 Temperature Pulse Rate 69 66 Respiratory Rate 16 Blood Pressure Pulse Oximetry 100 Oxygen Delivery Mechanical Ventilation Fraction of Inspired Oxygen 35 07/10/24 08:00 07/10/24 08:45 07/10/24 08:48 Temperature Pulse Rate 67 67 67 Respiratory Rate 17 Blood Pressure 114/55 L Pulse Oximetry Oxygen Delivery Fraction of Inspired Oxygen 07/10/24 08:50 07/10/24 09:07 07/10/24 09:22 Temperature 98.1 F 98 F Pulse Rate 67 68 69 Respiratory Rate 16 16 Blood Pressure 131/54 L 141/57 H Pulse Oximetry 92 93 93 Oxygen Delivery Mechanical Ventilation Fraction of Inspired Oxygen 35 07/10/24 10:00 07/10/24 10:00 07/10/24 10:00 Temperature 98 F Pulse Rate 69 69 69 Respiratory Rate 16 16 Blood Pressure 159/57 H Pulse Oximetry 100 Oxygen Delivery Fraction of Inspired Oxygen 07/10/24 10:00 07/10/24 10:00 07/10/24 10:22 Temperature 98.1 F Pulse Rate 69 70 67 Respiratory Rate 16 16 Blood Pressure 159/57 H 124/55 L Pulse Oximetry 93 Oxygen Delivery Fraction of Inspired Oxygen 07/10/24 10:58 07/10/24 11:16 Temperature 98.1 F Pulse Rate 66 68 Respiratory Rate 16 Blood Pressure 118/53 L Pulse Oximetry 91 94 Oxygen Delivery Mechanical Ventilation Fraction of Inspired Oxygen 35 Intake/Output Intake/Output: Intake & Output 07/07/24 07/08/24 07/09/24 07/10/24 23:59 23:59 23:59 23:59 Intake Total 2150.4 3331.3 2401.4 1067.6 Output Total 1250 1350 550 350 Balance 900.4 1981.3 1851.4 717.6 Meds/Results Medications: Active Medications Generic Name Dose Route Start Last Admin Trade Name Freq PRN Reason Stop Dose Admin Albuterol/Ipratropium 3 ml 06/29/24 02:00 07/10/24 08:48 Ipratropium 0.5 Mg/Albuterol Sulfate 2.5 Mg Ampul.Neb 3 Ml INHALATION 3 ml Q6HRT BARBARA Administration Amiodarone HCl 400 mg 07/09/24 12:20 07/10/24 08:45 Amiodarone Hcl 200 Mg Tablet PO 400 mg Q12HR BARBARA Administration Aspirin 81 mg 07/01/24 08:00 07/10/24 08:45 Aspirin 81 Mg Chewable Tablet PO 81 mg DAILY@0800 BARBARA Administration Atorvastatin Calcium 40 mg 06/29/24 09:00 07/10/24 08:45 Atorvastatin 40 Mg Tablet PO 40 mg DAILY BARBARA Administration Cyanocobalamin 1,000 mcg 07/07/24 12:00 07/07/24 13:35 Cyanocobalamin Inj 1,000 Mcg/Ml Vial IM 07/14/24 09:01 1,000 mcg WEEKLY BARBARA Administration Dextrose 12.5 gm 06/29/24 08:08 Dextrose 50% 25 Gm/50 Ml Syringe IV PUSH PRN PRN Hypoglycemia Protocol Glucagon 1 mg 06/29/24 08:08 Glucagon For Inj 1 Mg Vial IM PRN PRN Hypoglycemia Protocol Glucose 15 gm 06/29/24 08:08 Glucose Oral Gel 15 Gm Of Glucse In 37.5 Gm Tube PO PRN PRN Hypoglycemia Protocol Heparin Sodium (Porcine) 5,000 units 07/07/24 11:24 Heparin Sodium 5,000 Units/Ml Vial IV PUSH PRN PRN aPTT less than 55 seconds Heparin Sodium (Porcine) 2,500 units 07/07/24 11:24 07/09/24 07:21 Heparin Sodium 5,000 Units/Ml Vial IV PUSH 2,500 units PRN PRN Administration aPTT 55 - 70 seconds Hydralazine HCl 10 mg 07/06/24 16:42 07/06/24 17:03 Hydralazine Hcl 20 Mg/Ml Vial IV PUSH 10 mg Q4H PRN Administration Blood Pressure - High Dextrose 1,000 mls @ 100 mls/hr 06/29/24 08:08 Dextrose 5% 1,000 Ml IVPB PRN PRN Hypoglycemia Protocol Fentanyl Citrate 2,500 mcg in 250 mls @ 5 mls/hr 07/06/24 17:55 07/10/24 10:00 Fentanyl 2,500 Mcg/Ns 250 Ml IV CONT 50 mcg/hr .Q50H BARBARA 5 mls/hr Titration Protocol 50 MCG/HR Midazolam HCl 100 mg in 100 mls @ 2 mls/hr 07/06/24 17:55 07/10/24 10:00 Versed 100 Mg/Ns 100 Ml IV CONT 2 mg/hr .Q50H BARBARA 2 mls/hr Titration Protocol 2 MG/HR Heparin Sodium/Dextrose 25,000 units in 250 mls @ 0 mls/hr 07/07/24 11:25 07/10/24 08:52 Heparin Sodium/D5w 100 Units/Ml IV CONT 0 units/hr .Q0M BARBARA 0 mls/hr Titration Protocol Cefepime HCl 1 gm in 50 mls @ 100 mls/hr 07/08/24 11:00 07/10/24 09:15 Maxipime 1 Gm/Ns 50 Ml IVPB Infused Q12HR BARBARA Infusion Sodium Chloride 250 mls @ 30 mls/hr 07/10/24 06:06 07/10/24 09:07 Normal Saline Iv IV CONT 07/10/24 14:25 30 mls/hr .Q8H20M STA Administration Insulin Aspart 3 - 6 units 06/29/24 12:00 07/10/24 11:00 Insulin Aspart (*Bkc) 100 Units/Ml SUB-Q Not Given Q6HR [facility] Protocol Insulin Glargine 8 units 07/06/24 09:00 07/10/24 10:48 Insulin Glargine (*Bkc) 100 Units/Ml SUB-Q Not Given DAILY [facility] Levothyroxine Sodium 50 mcg 06/30/24 06:30 07/10/24 06:45 Levothyroxine Sodium 50 Mcg Tablet FEED TUBE 50 mcg DAILY@0630 BARBARA Administration Multi-Ingred Cream/Lotion/Oil/Oint 1 applic 06/29/24 09:00 07/10/24 08:45 Mineral Oil/White Petrolatum Ointment EACH EYE 1 applic Q12HR BARBARA Administration Pantoprazole Sodium 40 mg 07/06/24 21:00 07/10/24 08:45 Pantoprazole Sodium Iv 40 Mg Vial IV PUSH 40 mg Q12HR BARBARA Administration Sodium Chloride 10 ml 06/29/24 14:00 07/10/24 06:45 Central Line Flush IV PUSH 10 ml Q8HR BARBARA Administration Sodium Chloride 10 ml 06/29/24 12:40 Central Line Flush IV PUSH PRN PRN with TPN bag changes Sodium Chloride 20 ml 06/29/24 12:40 Central Line Flush IV PUSH PRN PRN after blood draws Vancomycin HCl 1 each 07/08/24 10:48 Vancomycin For Acute Kidney Injury IVPB PRN PRN Vancomycin Protocol Radiology Results: ITS Impressions Abdomen X-Ray 06/28/24 20:03 IMPRESSION: Nasogastric tube in good position and ready for immediate use. Abdomen Ultrasound 07/03/24 14:12 IMPRESSION: 1. Normal right upper quadrant ultrasound status post cholecystectomy. Renal Ultrasound 07/06/24 08:30 IMPRESSION: 1. No hydronephrosis in either kidney. Head CT 07/08/24 10:08 IMPRESSION: 1. No acute intracranial process. 2. 8 mm calcified extra-axial mass overlying the left parietal lobe most consistent with a meningioma. Chest X-Ray 07/10/24 06:34 IMPRESSION: 1. Airspace opacities in the mid and lower lung zones with worsening at the lung bases, consistent with atelectasis versus pneumonia. 2. Severe emphysema. Labs Labs: Laboratory Results - last 24 hr 07/06/24 07/09/24 07/09/24 06:44 13:57 14:55 WBC RBC Hgb Hct MCV MCH MCHC RDW Plt Count MPV Immature Gran % (Auto) Neut % (Auto) Lymph % (Auto) [place] % (Auto) Eos % (Auto) Baso % (Auto) Lymph # (Auto) [place] # (Auto) Eos # (Auto) Baso # (Auto) Abs Immat Gran (auto) Absolute Neuts (auto) Absolute Nucleated RBC Nucleated RBC % Platelet Estimate Hypochromasia Poikilocytosis Ovalocytes Schistocytes APTT > 200.0 H* 94.5 H Puncture Site ABG pH ABG pCO2 ABG pO2 ABG PO2/FiO2 Ratio ABG HCO3 ABG O2 Saturation ABG O2 Content ABG Base Excess A-a Gradient Oxyhemoglobin Carboxyhemoglobin Methemoglobin Reduced Hemoglobin Total Hemoglobin O2 Delivery Device O2 Liters/Min Minute Volume Vent Rate Vent Mode FiO2 Tidal Volume PEEP Peak Inspir Pressure Pressure Support Sodium Potassium Chloride Carbon Dioxide Anion Gap BUN Creatinine Estim Creat Clear Calc Estimated GFR Glucose POC Capillary Glucose Lactic Acid Calcium Phosphorus Magnesium Total Bilirubin AST ALT Alkaline Phosphatase Ammonia Total Protein Albumin Aldosterone 1 Vancomycin Trough Blood Type Antibody Screen Crossmatch 07/09/24 07/09/24 07/10/24 17:18 21:33 00:08 WBC RBC Hgb Hct MCV MCH MCHC RDW Plt Count MPV Immature Gran % (Auto) Neut % (Auto) Lymph % (Auto) [place] % (Auto) Eos % (Auto) Baso % (Auto) Lymph # (Auto) [place] # (Auto) Eos # (Auto) Baso # (Auto) Abs Immat Gran (auto) Absolute Neuts (auto) Absolute Nucleated RBC Nucleated RBC % Platelet Estimate Hypochromasia Poikilocytosis Ovalocytes Schistocytes APTT 74.3 H Puncture Site ABG pH ABG pCO2 ABG pO2 ABG PO2/FiO2 Ratio ABG HCO3 ABG O2 Saturation ABG O2 Content ABG Base Excess A-a Gradient Oxyhemoglobin Carboxyhemoglobin Methemoglobin Reduced Hemoglobin Total Hemoglobin O2 Delivery Device O2 Liters/Min Minute Volume Vent Rate Vent Mode FiO2 Tidal Volume PEEP Peak Inspir Pressure Pressure Support Sodium Potassium Chloride Carbon Dioxide Anion Gap BUN Creatinine Estim Creat Clear Calc Estimated GFR Glucose POC Capillary Glucose 155 H 152 H Lactic Acid Calcium Phosphorus Magnesium Total Bilirubin AST ALT Alkaline Phosphatase Ammonia Total Protein Albumin Aldosterone Vancomycin Trough Blood Type Antibody Screen Crossmatch 07/10/24 07/10/24 07/10/24 04:50 04:51 06:48 WBC 28.0 H RBC 2.35 L Hgb 6.7 L* Hct 21.2 L MCV 90.2 MCH 28.5 MCHC 31.6 L RDW 18.6 H Plt Count 229 MPV 12.8 H Immature Gran % (Auto) 1.2 H Neut % (Auto) 81.5 H Lymph % (Auto) 7.[address] [place] % (Auto) 8.0 Eos % (Auto) 1.8 Baso % (Auto) 0.1 L Lymph # (Auto) 2.08 [place] # (Auto) 2.3 H Eos # (Auto) 0.5 H Baso # (Auto) 0.0 Abs Immat Gran (auto) 0.33 H Absolute Neuts (auto) 22.8 H Absolute Nucleated RBC 0.060 H Nucleated RBC % 0.2 Platelet Estimate Adequate Hypochromasia 1+ Poikilocytosis 1+ Ovalocytes 1+ Schistocytes None seen APTT 114.6 H Puncture Site Right radial ABG pH 7.415 ABG pCO2 42.6 ABG pO2 59.4 L ABG PO2/FiO2 Ratio 1.70 ABG HCO3 26.7 H ABG O2 Saturation 91.1 L ABG O2 Content 9.0 L ABG Base Excess 2.0 A-a Gradient 140.6 Oxyhemoglobin 88.1 L Carboxyhemoglobin 0.9 Methemoglobin 0.0 Reduced Hemoglobin 11.0 H Total Hemoglobin 7.2 L* O2 Delivery Device Ventilator O2 Liters/Min Not Reportable Minute Volume Not Reportable Vent Rate 16 Vent Mode Cmv FiO2 35 Tidal Volume 480 PEEP 5 Peak Inspir Pressure Not Reportable Pressure Support Not Reportable Sodium 143 Potassium 4.3 Chloride 105 Carbon Dioxide 28 Anion Gap 10 BUN 135 H D Creatinine 2.19 H Estim Creat Clear Calc 19 Estimated GFR 26 L Glucose 136 H POC Capillary Glucose Lactic Acid 0.7 Calcium 8.8 Phosphorus 5.2 H Magnesium 2.7 H Total Bilirubin 0.4 AST 36 ALT 48 H Alkaline Phosphatase 93 Ammonia < 9 L Total Protein 5.0 L Albumin 3.1 L Aldosterone Vancomycin Trough 15.7 Blood Type O Positive Antibody Screen Negative Crossmatch See Detail 07/10/24 10:59 WBC RBC Hgb Hct MCV MCH MCHC RDW Plt Count MPV Immature Gran % (Auto) Neut % (Auto) Lymph % (Auto) [place] % (Auto) Eos % (Auto) Baso % (Auto) Lymph # (Auto) [place] # (Auto) Eos # (Auto) Baso # (Auto) Abs Immat Gran (auto) Absolute Neuts (auto) Absolute Nucleated RBC Nucleated RBC % Platelet Estimate Hypochromasia Poikilocytosis Ovalocytes Schistocytes APTT Puncture Site ABG pH ABG pCO2 ABG pO2 ABG PO2/FiO2 Ratio ABG HCO3 ABG O2 Saturation ABG O2 Content ABG Base Excess A-a Gradient Oxyhemoglobin Carboxyhemoglobin Methemoglobin Reduced Hemoglobin Total Hemoglobin O2 Delivery Device O2 Liters/Min Minute Volume Vent Rate Vent Mode FiO2 Tidal Volume PEEP Peak Inspir Pressure Pressure Support Sodium Potassium Chloride Carbon Dioxide Anion Gap BUN Creatinine Estim Creat Clear Calc Estimated GFR Glucose POC Capillary Glucose 125 H Lactic Acid Calcium Phosphorus Magnesium Total Bilirubin AST ALT Alkaline Phosphatase Ammonia Total Protein Albumin Aldosterone Vancomycin Trough Blood Type Antibody Screen Crossmatch Quality VTE Prophylaxis VTE prophylaxis: pharmacologic ordered
[2024-07-10 12:27] LABS: Hemoglobin 7.8 g/dL (12.0-15.0)
[2024-07-10] MEDS: SODIUM CHLORIDE 0.45% 1,000 ML 100 ML IV CONT (12:46)
[2024-07-10] MEDS: fentaNYL CITRATE INJ (*CRX) 100 MCG/2 ML VIAL IV PUSH (14:49)
[2024-07-10] MEDS: MIDAZOLAM HCL (*CRX) 2 MG/2 ML VIAL IV PUSH ×2 (14:49→15:01)
--- NOTE | 2024-07-10 15:39 | PC.NURSE ---
spoke with Dr. Aparicio regarding PEG tube use and feedings. Per Dr. Aparicio, nursing is okay to use the PEG tube for medications and feedings right away. Dr. Aparicio wishes for patient to resume on previous tube feeds.
[2024-07-10 18:08] LABS: Glucose Point of Care 101 mg/dl (65-105)
[2024-07-10] MEDS: NOREPINEPHRINE 8 MG/D5W 250 ML 8 MG/250 ML BAG 9.38 MG IV CONT (20:03)
[2024-07-10 21:45] LABS: Glucose Point of Care 109 mg/dl (65-105)
[2024-07-11] VITALS (35 sets, daily range): BP systolic 99–128; BP diastolic 43–84; PULSE 8–81; RESP 14–19; TEMP 36.5–37.2; O2SAT 87–97
[2024-07-11 00:16] LABS: Glucose Point of Care 131 mg/dl (65-105)
[2024-07-11] MEDS: IPRATROPIUM 0.5 MG/ALBUTEROL SULFATE 2.5 MG AMPUL.NEB 3 ML INHALATION ×4 (01:48→20:11)
[2024-07-11 04:56] LABS: Basophils Percent Auto 0.1 % (0.2-1.2); Eosinophils Absolute Auto 0.4 K/mm3 (0-0.3); Eosinophils Percent Auto 1.5 % (0-4.4); Hematocrit 24.6 % (37.0-47.0); Hemoglobin 7.9 g/dL (12.0-15.0); Immature Granulocyte Absolute 0.25 K/mm3 (0.00-0.031); Immature Granulocyte Percent A 0.9 % (0-0.5); Lymphocytes Absolute Auto 1.18 K/mm3 (0.9-3.2); Lymphocytes Percent Auto 4.3 % (18.3-44.2); Mean Corpuscular HGB Conc 32.1 g/dl (32-36); Mean Corpuscular Hemoglobin 28.6 pg (26-34); Mean Corpuscular Volume 89.1 fl (80-100); Mean Platelet Volume 12.2 fl (7.4-10.4); Monocytes Percent Auto 7.3 % (2.6-8.5); Neutrophils Absolute Auto 23.3 K/mm3 (1.3-6.7); Neutrophils Percent Auto 85.9 % (45.5-73.1); Nucleated Red Blood Cells Perc 0.3 % (0.0-0.2); Platelet Count Result 232 k/mm3 (150-375); Red Blood Count 2.76 M/mm3 (4.2-5.4); Red Cell Distribution Width 17.2 % (11.5-14.5); White Blood Count 27.1 K/mm3 (4.5-10.0)
[2024-07-11 05:07] LABS: INR 1.1; Prothrombin Time 14.8 Seconds (11.1-14.7)
[2024-07-11 05:08] LABS: Partial Thromboplastin Time 26.9 Seconds (22.3-36.8)
[2024-07-11 05:12] LABS: Vancomycin Trough 20.7 ug/mL (10.0-20.0)
[2024-07-11 05:19] LABS: Anisocytosis 1+; Hypochromasia 1+; Ovalocytes 1+; Platelet Estimate Adequate (Adequate); Poikilocytosis 1+; Schistocytes Rare
[2024-07-11 05:30] LABS: Base Excess ABG -0.2 mEq/l (+/-2.0); Carboxyhemoglobin 0.4 % THb (0-2.0); Fractional Inspired Oxygen 50 %; HCO3 ABG 24.7 mEq/l (22.0-26.0); Methemoglobin ABG 0.3 %THb (0-1.5); Oxygen Content ABG 11.2 %vol (16.0-22.0); Oxygen Saturation ABG 93.7 % (95.0-100.0); Oxyhemoglobin 91.5 % THb (90.0-100.0); PCO2 ABG 41.5 mmHg (35.0-45.0); PO2 ABG 68.8 mmHg (80.0-100.0); PO2 FiO2 Ratio Arterial Blood 1.38 %; Reduced Hemoglobin 7.8 %THb (0-5.0); Total Hemoglobin 8.6 g/dL (12.0-18.0); pH ABG 7.393 (7.350-7.450)
[2024-07-11 05:41] LABS: Alanine Aminotransferase 46 U/L (6-35); Alkaline Phosphatase 84 U/L (38-126); Anion Gap 11 mmol/L (4-12); Aspartate Amino Transferase 35 U/L (14-36); Bilirubin,Total 0.5 mg/dL (0.2-1.3); Calcium 8.9 mg/dL (8.4-10.2); Carbon Dioxide 26 mmol/L (22-30); Chloride 104 mmol/L (98-107); Estimated CRCL calculation 18 ml/min; Estimated Glomerular Filt Rate 24; Glucose 151 mg/dL (65-110); Magnesium 2.6 mg/dL (1.6-2.3); Phosphorus 5.7 mg/dL (2.5-4.5); Potassium 4.4 mmol/L (3.4-5.0); Sodium 141 mmol/L (137-145)
[2024-07-11 05:50] LABS: Blood Urea Nitrogen 131 mg/dL (7-17)
[2024-07-11 06:21] LABS: Arterial Blood Gas Ventilator rate 16 /MIN; Device VENTILATOR; Modified Allen's Test Pass; Site Drawn LEFT RADIAL
[2024-07-11 06:22] LABS: Arterial Blood Gas PEEP 2 cmH2O; Arterial Blood Gas Tidal Volume 480 ml; Arterial Blood Gas Vent Mode CMV
[2024-07-11] MEDS: LEVOTHYROXINE SODIUM 50 MCG TABLET FEED TUBE (06:25)
[2024-07-11] MEDS: CENTRAL LINE FLUSH 10 ML IV PUSH ×3 (06:25→20:07)
[2024-07-11] MEDS: AMIODARONE HCL 200 MG TABLET 400 MG PO ×2 (08:37→20:05)
[2024-07-11] MEDS: ASPIRIN 81 MG CHEWABLE TABLET PO (08:37)
[2024-07-11] MEDS: CEFEPIME 1 GM/NS 50 ML 1 GM/50 ML BAG IVPB ×2 (08:38→20:07)
[2024-07-11] MEDS: ATORVASTATIN 40 MG TABLET PO (08:38)
[2024-07-11] MEDS: MINERAL OIL/WHITE PETROLATUM OINTMENT 1 APPLIC EACH EYE ×2 (08:40→20:06)
[2024-07-11] MEDS: PANTOPRAZOLE SODIUM IV 40 MG VIAL IV PUSH ×2 (08:40→20:07)
[2024-07-11] MEDS: MIDAZOLAM 100MG/NS 100ML(*CRX) 100 MG/100 ML BAG IV CONT (08:44)
[2024-07-11] MEDS: INSULIN GLARGINE (*BKC) 100 UNITS/ML 8 UNITS SUB-Q (08:57)
--- NOTE | 2024-07-11 10:41 | P.PNNP_ITS ---
Progress Note: A&P Assessment and Plan (1) RASHEL (acute kidney injury): Code(s): N17.9 - Acute kidney failure, unspecified Status: Acute Assessment and Plan: * acute kidney injury * creatinine has been up and down between 1.41.7 but today is higher at 2.19. * evaluation to date noted: * normal renal ultrasound * urine electrolytes prerenal with fractional excretion of urea at 17% * rare urine eosinophils * CPK mildly elevated - follow trend * moderate proteinuria * will check a urinalysis * etiology not clear but suspicion falls on: * possibly due to relative hypotension - noted systolic BP in the high 80s (on 07/04) * intravascular volume depletion(?) * Septic syndrome * other(?) * blood pressure a little bit lower now and requiring norepinephrine. * urine output 550-1350 over the last few days . She did receive a little bit of IV fluids yesterday and she made a little more urine overnight. * However her oxygenation worsened a little bit overnight, increasing from 30- 50 but now back to 40% FiO2. * s/p IV albumin (on 07/06) for volume expansion * s/p IVF trial(NS for a total of 1L) on 07/07 and again yesterday * because of the slightly worsened respiratory status, will hold off on more fluids other than those that are obligatory. * BUN elevated: * suspect due to previous steroid use * possibly catabolic state as well(?) * no evidence of GI bleed (2) Hyperkalemia: Code(s): E87.5 - Hyperkalemia Status: Acute Assessment and Plan: * resolved (3) Acute on chronic respiratory failure with hypoxia and hypercapnia: Code(s): J96.21 - Acute and chronic respiratory failure with hypoxia; J96.22 - Acute and chronic respiratory failure with hypercapnia Status: Acute Assessment and Plan: * presumably due to COPD exacerbation * complicated by known history of chronic hypoxic/hypercapnic respiratory failure and CHERYL * on ventilator support * on antibiotics, bronchodilators, and steroids * weaned off steroids * ventilator weaning as tolerated. Currently FiO2 40%, peep of 5, and Ve is around 7 (4) Acute exacerbation of chronic obstructive pulmonary disease: Code(s): J44.1 - Chronic obstructive pulmonary disease with (acute) exacerbation Status: Acute Assessment and Plan: * presumed etiology of #3 * continue current therapy (5) Elevated troponin: Code(s): R77.8 - Other specified abnormalities of plasma proteins Status: Acute Assessment and Plan: * felt to be demand ischemia from acute respiratory failure * EKG noted * Cardiology recommendations noted * recent Echo noted (on 06/29): * left ventricular systolic function appears preserved * right ventricle is normal in size and systolic function. * small amount of pericardial effusion with no evidence of cardiac tamponade * ischemic evaluation when more stable (6) Atrial fibrillation with RVR: Code(s): I48.91 - Unspecified atrial fibrillation Status: Acute Assessment and Plan: * SVT noted on evening of 07.06 * s/p IV andenosine with underlying rhythm noted to be AFib RVR * converted to normal sinus rhythm with IV metoprolol x 1 * on 07/07, with weaning of sedation, patient went to AFib RVR again * now on amiodarone for rate control * on heparin drip * heart rate 76 today * Cardiology following (7) Anemia: Code(s): D64.9 - Anemia, unspecified Status: Acute Assessment and Plan: * due to RASHEL and acute illness * however, hemooccult positive * anemia studies without iron deficiency * normal folate * low B12 noted -- IM B12 given * on PPI * GI recommendations noted * hb up to 7.9 with blood transfusion (8) Elevated LFTs: Code(s): R79.89 - Other specified abnormal findings of blood chemistry Status: Acute Assessment and Plan: * noted on testing since 07/03 * RUQ u/s was normal - status post cholecystectomy * hepatitis panel normal * improving Subjective Date/time seen: 07/11/24 10:41 Interval history: patient is on the ventilator. Sedated. Back on 2 mics of norepi. Exam Narrative: General: elderly but WD/WN female intubated/sedated on mechanical ventilation Heart: normal S1 and S2; no rub or gallop Lungs: coarse breath sounds bilaterally Abdomen: bowel sounds positive but diminished. Soft and nontender. Extremities: no edema Skin: No rash or subcu nodule Objective Data Vital Signs Vital Signs: Vital Signs - 24 hr 07/10/24 10:58 07/10/24 11:16 07/10/24 12:00 Temperature 98.1 F Pulse Rate 66 68 Respiratory Rate 16 Blood Pressure 118/53 L Pulse Oximetry 91 94 94 Oxygen Delivery Mechanical Ventilation Mechanical Ventilation Fraction of Inspired Oxygen 35 35 07/10/24 12:00 07/10/24 12:00 07/10/24 12:00 Temperature 98 F Pulse Rate 64 65 Respiratory Rate 16 Blood Pressure 123/65 Pulse Oximetry 95 Oxygen Delivery Fraction of Inspired Oxygen 35 07/10/24 12:00 07/10/24 12:00 07/10/24 14:00 Temperature 98 F Pulse Rate 65 65 65 Respiratory Rate 16 16 16 Blood Pressure 117/61 Pulse Oximetry 100 Oxygen Delivery Fraction of Inspired Oxygen 07/10/24 14:00 07/10/24 14:00 07/10/24 14:00 Temperature Pulse Rate 65 65 65 Respiratory Rate 16 16 Blood Pressure Pulse Oximetry Oxygen Delivery Fraction of Inspired Oxygen 07/10/24 15:38 07/10/24 15:42 07/10/24 15:46 Temperature Pulse Rate 62 63 63 Respiratory Rate 16 16 Blood Pressure Pulse Oximetry 88 L Oxygen Delivery Mechanical Ventilation Fraction of Inspired Oxygen 35 07/10/24 16:00 07/10/24 16:00 07/10/24 16:00 Temperature 97.8 F Pulse Rate 62 64 64 Respiratory Rate 16 16 16 Blood Pressure 91/57 L Pulse Oximetry 92 Oxygen Delivery Fraction of Inspired Oxygen 07/10/24 16:00 07/10/24 16:00 07/10/24 16:00 Temperature Pulse Rate 62 Respiratory Rate Blood Pressure Pulse Oximetry 92 Oxygen Delivery Mechanical Ventilation Fraction of Inspired Oxygen 35 35 07/10/24 18:00 07/10/24 18:00 07/10/24 18:00 Temperature 97.3 F L Pulse Rate 64 62 62 Respiratory Rate 16 16 16 Blood Pressure 95/50 L Pulse Oximetry 84 L Oxygen Delivery Fraction of Inspired Oxygen 07/10/24 18:00 07/10/24 18:50 07/10/24 18:51 Temperature Pulse Rate 63 Respiratory Rate Blood Pressure Pulse Oximetry 84 L Oxygen Delivery Fraction of Inspired Oxygen 100 07/10/24 19:47 07/10/24 20:00 07/10/24 20:00 Temperature Pulse Rate Respiratory Rate Blood Pressure Pulse Oximetry 95 Oxygen Delivery Mechanical Ventilation Fraction of Inspired Oxygen 60 60 60 07/10/24 20:00 07/10/24 20:00 07/10/24 20:00 Temperature 97.3 F L Pulse Rate 66 62 62 Respiratory Rate 16 16 16 Blood Pressure 101/38 L Pulse Oximetry 96 Oxygen Delivery Fraction of Inspired Oxygen 07/10/24 20:00 07/10/24 20:03 07/10/24 20:30 Temperature Pulse Rate 62 62 66 Respiratory Rate 16 Blood Pressure 101/38 L Pulse Oximetry Oxygen Delivery Fraction of Inspired Oxygen 07/10/24 20:35 07/10/24 20:40 07/10/24 21:31 Temperature Pulse Rate 66 66 70 Respiratory Rate 16 Blood Pressure Pulse Oximetry 96 Oxygen Delivery Mechanical Ventilation Fraction of Inspired Oxygen 60 07/10/24 22:00 07/10/24 22:00 07/10/24 22:00 Temperature 97.5 F L Pulse Rate 69 69 69 Respiratory Rate 16 16 Blood Pressure 113/42 L 113/42 L Pulse Oximetry 95 Oxygen Delivery Fraction of Inspired Oxygen 07/10/24 22:00 07/10/24 22:00 07/10/24 23:38 Temperature Pulse Rate 69 72 66 Respiratory Rate 16 Blood Pressure Pulse Oximetry 96 Oxygen Delivery Mechanical Ventilation Fraction of Inspired Oxygen 60 07/11/24 00:00 07/11/24 00:00 07/11/24 00:00 Temperature 97.7 F Pulse Rate 69 Respiratory Rate 16 Blood Pressure 118/45 L Pulse Oximetry 96 95 Oxygen Delivery Mechanical Ventilation Fraction of Inspired Oxygen 60 60 07/11/24 00:00 07/11/24 00:00 07/11/24 00:00 Temperature Pulse Rate 69 69 69 Respiratory Rate 16 Blood Pressure 118/45 L Pulse Oximetry Oxygen Delivery Fraction of Inspired Oxygen 07/11/24 00:00 07/11/24 01:33 07/11/24 01:33 Temperature Pulse Rate 69 70 70 Respiratory Rate 16 16 Blood Pressure Pulse Oximetry 97 Oxygen Delivery Mechanical Ventilation Fraction of Inspired Oxygen 50 07/11/24 01:45 07/11/24 02:00 07/11/24 02:00 Temperature 97.9 F Pulse Rate 70 71 71 Respiratory Rate 16 16 Blood Pressure 128/49 L Pulse Oximetry 96 Oxygen Delivery Fraction of Inspired Oxygen 07/11/24 02:00 07/11/24 02:00 07/11/24 02:00 Temperature Pulse Rate 71 71 71 Respiratory Rate 16 16 Blood Pressure 128/49 L Pulse Oximetry Oxygen Delivery Fraction of Inspired Oxygen 07/11/24 02:15 07/11/24 02:30 07/11/24 02:45 Temperature Pulse Rate 70 72 73 Respiratory Rate Blood Pressure 109/62 123/48 L 107/47 L Pulse Oximetry Oxygen Delivery Fraction of Inspired Oxygen 07/11/24 04:00 07/11/24 04:00 07/11/24 04:00 Temperature 97.9 F Pulse Rate 71 Respiratory Rate 16 Blood Pressure 99/60 L Pulse Oximetry 93 93 Oxygen Delivery Mechanical Ventilation Fraction of Inspired Oxygen 60 60 07/11/24 04:00 07/11/24 04:00 07/11/24 04:00 Temperature Pulse Rate 71 71 71 Respiratory Rate 16 16 Blood Pressure 99/60 L Pulse Oximetry Oxygen Delivery Fraction of Inspired Oxygen 07/11/24 04:00 07/11/24 05:20 07/11/24 06:00 Temperature Pulse Rate 71 73 74 Respiratory Rate Blood Pressure Pulse Oximetry 92 Oxygen Delivery Mechanical Ventilation Fraction of Inspired Oxygen 50 07/11/24 06:00 07/11/24 06:00 07/11/24 06:00 Temperature 97.9 F Pulse Rate 74 74 74 Respiratory Rate 16 16 Blood Pressure 110/47 L 110/47 L Pulse Oximetry 93 Oxygen Delivery Fraction of Inspired Oxygen 07/11/24 06:00 07/11/24 08:00 07/11/24 08:00 Temperature 97.9 F 97.9 F Pulse Rate 74 71 71 Respiratory Rate 16 16 16 Blood Pressure 117/48 L 117/48 L Pulse Oximetry 95 95 Oxygen Delivery Fraction of Inspired Oxygen 07/11/24 08:00 07/11/24 08:00 07/11/24 08:00 Temperature Pulse Rate 71 71 Respiratory Rate 16 Blood Pressure 103/55 L Pulse Oximetry Oxygen Delivery Fraction of Inspired Oxygen 50 07/11/24 08:00 07/11/24 08:00 07/11/24 08:24 Temperature Pulse Rate 71 70 73 Respiratory Rate 16 16 Blood Pressure Pulse Oximetry Oxygen Delivery Fraction of Inspired Oxygen 07/11/24 08:28 07/11/24 08:30 07/11/24 08:32 Temperature Pulse Rate 73 73 Respiratory Rate 16 Blood Pressure Pulse Oximetry 95 Oxygen Delivery Mechanical Ventilation Fraction of Inspired Oxygen 83 40 07/11/24 08:33 07/11/24 08:37 07/11/24 08:44 Temperature Pulse Rate 73 73 73 Respiratory Rate 16 16 Blood Pressure Pulse Oximetry Oxygen Delivery Fraction of Inspired Oxygen 07/11/24 10:00 07/11/24 10:00 Temperature 98 F Pulse Rate 76 76 Respiratory Rate 15 Blood Pressure 121/43 L Pulse Oximetry 91 Oxygen Delivery Fraction of Inspired Oxygen Intake/Output Intake/Output: Intake & Output 07/08/24 07/09/24 07/10/24 07/11/24 23:59 23:59 23:59 23:59 Intake Total 3331.3 2401.4 1880.9 864.6 Output Total 1350 550 450 600 Balance 1981.3 1851.4 1430.9 264.6 Meds/Results Medications: Active Medications Generic Name Dose Route Start Last Admin Trade Name Freq PRN Reason Stop Dose Admin Albuterol/Ipratropium 3 ml 06/29/24 02:00 07/11/24 08:23 Ipratropium 0.5 Mg/Albuterol Sulfate 2.5 Mg Ampul.Neb 3 Ml INHALATION 3 ml Q6HRT BARBARA Administration Amiodarone HCl 400 mg 07/09/24 12:20 07/11/24 08:37 Amiodarone Hcl 200 Mg Tablet PO 400 mg Q12HR BARBARA Administration Aspirin 81 mg 07/01/24 08:00 07/11/24 08:37 Aspirin 81 Mg Chewable Tablet PO 81 mg DAILY@0800 BARBARA Administration Atorvastatin Calcium 40 mg 06/29/24 09:00 07/11/24 08:38 Atorvastatin 40 Mg Tablet PO 40 mg DAILY BARBARA Administration Cyanocobalamin 1,000 mcg 07/07/24 12:00 07/07/24 13:35 Cyanocobalamin Inj 1,000 Mcg/Ml Vial IM 07/14/24 09:01 1,000 mcg WEEKLY BARBARA Administration Dextrose 12.5 gm 06/29/24 08:08 Dextrose 50% 25 Gm/50 Ml Syringe IV PUSH PRN PRN Hypoglycemia Protocol Glucagon 1 mg 06/29/24 08:08 Glucagon For Inj 1 Mg Vial IM PRN PRN Hypoglycemia Protocol Glucose 15 gm 06/29/24 08:08 Glucose Oral Gel 15 Gm Of Glucse In 37.5 Gm Tube PO PRN PRN Hypoglycemia Protocol Heparin Sodium (Porcine) 5,000 units 07/07/24 11:24 Heparin Sodium 5,000 Units/Ml Vial IV PUSH PRN PRN aPTT less than 55 seconds Heparin Sodium (Porcine) 2,500 units 07/07/24 11:24 07/09/24 07:21 Heparin Sodium 5,000 Units/Ml Vial IV PUSH 2,500 units PRN PRN Administration aPTT 55 - 70 seconds Hydralazine HCl 10 mg 07/06/24 16:42 07/06/24 17:03 Hydralazine Hcl 20 Mg/Ml Vial IV PUSH 10 mg Q4H PRN Administration Blood Pressure - High Dextrose 1,000 mls @ 100 mls/hr 06/29/24 08:08 Dextrose 5% 1,000 Ml IVPB PRN PRN Hypoglycemia Protocol Fentanyl Citrate 2,500 mcg in 250 mls @ 5 mls/hr 07/06/24 17:55 07/11/24 08:00 Fentanyl 2,500 Mcg/Ns 250 Ml IV CONT 50 mcg/hr .Q50H BARBARA 5 mls/hr Titration Protocol 50 MCG/HR Midazolam HCl 100 mg in 100 mls @ 2 mls/hr 07/06/24 17:55 07/11/24 08:44 Versed 100 Mg/Ns 100 Ml IV CONT 2 mg/hr .Q50H BARBARA 2 mls/hr Administration Protocol 2 MG/HR Heparin Sodium/Dextrose 25,000 units in 250 mls @ 0 mls/hr 07/07/24 11:25 07/10/24 08:52 Heparin Sodium/D5w 100 Units/Ml IV CONT 0 units/hr .Q0M BARBARA 0 mls/hr Titration Protocol Cefepime HCl 1 gm in 50 mls @ 100 mls/hr 07/08/24 11:00 07/11/24 08:38 Maxipime 1 Gm/Ns 50 Ml IVPB 100 mls/hr Q12HR BARBARA Administration Norepinephrine Bitartrate 8 mg in 250 mls @ 3.75 mls/hr 07/10/24 19:50 07/11/24 08:00 Levophed 8 Mg/D5w 250 Ml IV CONT 2 mcg/min .Q24H BARBARA 3.75 mls/hr Titration Protocol 2 MCG/MIN Insulin Aspart 3 - 6 units 06/29/24 12:00 07/11/24 06:13 Insulin Aspart (*Bkc) 100 Units/Ml SUB-Q Not Given Q6HR BARBARA Protocol Insulin Glargine 8 units 07/06/24 09:00 07/11/24 08:57 Insulin Glargine (*Bkc) 100 Units/Ml SUB-Q 8 units DAILY BARBARA Administration Levothyroxine Sodium 50 mcg 06/30/24 06:30 07/11/24 06:25 Levothyroxine Sodium 50 Mcg Tablet FEED TUBE 50 mcg DAILY@0630 BARBARA Administration Multi-Ingred Cream/Lotion/Oil/Oint 1 applic 06/29/24 09:00 07/11/24 08:40 Mineral Oil/White Petrolatum Ointment EACH EYE 1 applic Q12HR BARBARA Administration Pantoprazole Sodium 40 mg 07/06/24 21:00 07/11/24 08:40 Pantoprazole Sodium Iv 40 Mg Vial IV PUSH 40 mg Q12HR BARBARA Administration Sodium Chloride 10 ml 06/29/24 14:00 07/11/24 06:25 Central Line Flush IV PUSH 10 ml Q8HR BARBARA Administration Sodium Chloride 10 ml 06/29/24 12:40 Central Line Flush IV PUSH PRN PRN with TPN bag changes Sodium Chloride 20 ml 06/29/24 12:40 Central Line Flush IV PUSH PRN PRN after blood draws Vancomycin HCl 1 each 07/08/24 10:48 Vancomycin For Acute Kidney Injury IVPB PRN PRN Vancomycin Protocol Radiology Results: ITS Impressions Abdomen X-Ray 06/28/24 20:03 IMPRESSION: Nasogastric tube in good position and ready for immediate use. Abdomen Ultrasound 07/03/24 14:12 IMPRESSION: 1. Normal right upper quadrant ultrasound status post cholecystectomy. Renal Ultrasound 07/06/24 08:30 IMPRESSION: 1. No hydronephrosis in either kidney. Head CT 07/08/24 10:08 IMPRESSION: 1. No acute intracranial process. 2. 8 mm calcified extra-axial mass overlying the left parietal lobe most consistent with a meningioma. Chest X-Ray 07/11/24 06:39 IMPRESSION: 1. Emphysema with interstitial and airspace opacities in the lower lung zones which could represent atelectasis pneumonia, pulmonary edema or some combination thereof. 2. Decreased very small left pleural effusion. Labs Labs: Laboratory Results - last 24 hr 07/06/24 07/10/24 07/10/24 06:40 06:48 10:59 WBC RBC Hgb Hct MCV MCH MCHC RDW Plt Count MPV Immature Gran % (Auto) Neut % (Auto) Lymph % (Auto) [place] % (Auto) Eos % (Auto) Baso % (Auto) Lymph # (Auto) [place] # (Auto) Eos # (Auto) Baso # (Auto) Abs Immat Gran (auto) Absolute Neuts (auto) Absolute Nucleated RBC Nucleated RBC % Platelet Estimate Hypochromasia Poikilocytosis Anisocytosis Ovalocytes Schistocytes PT INR APTT Puncture Site ABG pH ABG pCO2 ABG pO2 ABG PO2/FiO2 Ratio ABG HCO3 ABG O2 Saturation ABG O2 Content ABG Base Excess A-a Gradient Oxyhemoglobin Carboxyhemoglobin Methemoglobin Reduced Hemoglobin Total Hemoglobin O2 Delivery Device O2 Liters/Min Minute Volume Vent Rate Vent Mode FiO2 Tidal Volume PEEP Peak Inspir Pressure Pressure Support Sodium Potassium Chloride Carbon Dioxide Anion Gap BUN Creatinine Estim Creat Clear Calc Estimated GFR Glucose POC Capillary Glucose 125 H Serum Osmolality 354 H Calcium Phosphorus Magnesium Total Bilirubin AST ALT Alkaline Phosphatase Total Protein Albumin Vancomycin Trough Crossmatch See Detail 07/10/24 07/10/24 07/10/24 12:20 17:46 21:26 WBC RBC Hgb 7.8 L Hct 24.0 L MCV MCH MCHC RDW Plt Count MPV Immature Gran % (Auto) Neut % (Auto) Lymph % (Auto) [place] % (Auto) Eos % (Auto) Baso % (Auto) Lymph # (Auto) [place] # (Auto) Eos # (Auto) Baso # (Auto) Abs Immat Gran (auto) Absolute Neuts (auto) Absolute Nucleated RBC Nucleated RBC % Platelet Estimate Hypochromasia Poikilocytosis Anisocytosis Ovalocytes Schistocytes PT INR APTT Puncture Site ABG pH ABG pCO2 ABG pO2 ABG PO2/FiO2 Ratio ABG HCO3 ABG O2 Saturation ABG O2 Content ABG Base Excess A-a Gradient Oxyhemoglobin Carboxyhemoglobin Methemoglobin Reduced Hemoglobin Total Hemoglobin O2 Delivery Device O2 Liters/Min Minute Volume Vent Rate Vent Mode FiO2 Tidal Volume PEEP Peak Inspir Pressure Pressure Support Sodium Potassium Chloride Carbon Dioxide Anion Gap BUN Creatinine Estim Creat Clear Calc Estimated GFR Glucose POC Capillary Glucose 101 109 H Serum Osmolality Calcium Phosphorus Magnesium Total Bilirubin AST ALT Alkaline Phosphatase Total Protein Albumin Vancomycin Trough Crossmatch 07/10/24 07/11/24 07/11/24 23:41 04:43 05:27 WBC 27.1 H RBC 2.76 L Hgb 7.9 L Hct 24.6 L MCV 89.1 MCH 28.6 MCHC 32.1 RDW 17.2 H Plt Count 232 MPV 12.2 H Immature Gran % (Auto) 0.9 H Neut % (Auto) 85.9 H Lymph % (Auto) 4.3 L [place] % (Auto) 7.3 Eos % (Auto) 1.5 Baso % (Auto) 0.1 L Lymph # (Auto) 1.18 [place] # (Auto) 2.0 H Eos # (Auto) 0.4 H Baso # (Auto) 0.0 Abs Immat Gran (auto) 0.25 H Absolute Neuts (auto) 23.3 H Absolute Nucleated RBC 0.080 H Nucleated RBC % 0.3 H Platelet Estimate Adequate Hypochromasia 1+ Poikilocytosis 1+ Anisocytosis 1+ Ovalocytes 1+ Schistocytes Rare PT 14.8 H INR 1.1 APTT 26.9 Puncture Site Left radial ABG pH 7.393 ABG pCO2 41.5 ABG pO2 68.8 L ABG PO2/FiO2 Ratio 1.38 ABG HCO3 24.7 ABG O2 Saturation 93.7 L ABG O2 Content 11.2 L ABG Base Excess -0.2 A-a Gradient 241.0 Oxyhemoglobin 91.5 Carboxyhemoglobin 0.4 Methemoglobin 0.3 Reduced Hemoglobin 7.8 H Total Hemoglobin 8.6 L O2 Delivery Device Ventilator O2 Liters/Min Not Reportable Minute Volume Not Reportable Vent Rate 16 Vent Mode Cmv FiO2 50 Tidal Volume 480 PEEP 2 Peak Inspir Pressure Not Reportable Pressure Support Not Reportable Sodium 141 Potassium 4.4 Chloride 104 Carbon Dioxide 26 Anion Gap 11 BUN 131 H Creatinine 2.38 H Estim Creat Clear Calc 18 Estimated GFR 24 L Glucose 151 H POC Capillary Glucose 131 H Serum Osmolality Calcium 8.9 Phosphorus 5.7 H Magnesium 2.6 H Total Bilirubin 0.5 AST 35 ALT 46 H Alkaline Phosphatase 84 Total Protein 5.0 L Albumin 3.0 L Vancomycin Trough 20.7 H Crossmatch
--- NOTE | 2024-07-11 11:23 | P.PNINT_ITS ---
Progress Note: A&P Assessment and Plan (1) Atrial fibrillation with RVR: Code(s): I48.91 - Unspecified atrial fibrillation Status: Acute Assessment and Plan: 07/06 evening: Patient went into SVT, status post tenderness and 6 mg and 12 mg, underlying rhythm was AFib RVR, converted to normal sinus rhythm with IV metoprolol x1 and increasing her sedation. Patient remained in sinus rhythm also the morning of 07/07/2024. 07/07: Started weaning her sedation again today, patient went to AFib RVR, -hold heparin infusion due to drop in hemoglobin coffee-ground emesis -07/06; TSH level within normal limits, troponin level with no change since admission -EKG showed AFib RVR, discussed with cardiology, 07/08: In the evening patient went into AFib RVR again, requiring an amiodarone bolus, increased amiodarone infusion to 1 mg/min. Patient dropped her blood pressures and heart rate so amiodarone infusion was held. Patient was started on Robert-Synephrine. 07/09: Patient was hypertensive, Robert-Synephrine was discontinued. Cardiology recommended starting p.o. amiodarone which was ordered. Also recommended metoprolol which currently have not started because borderline blood pressures and she just came off Robert-Synephrine 07/10: Currently in sinus rhythm rate controlled. Cardiology aware that she was anemic and dropped her hemoglobin on 07/10/2024. Heparin infusion was discontinued (2) Acute on chronic respiratory failure with hypoxia and hypercapnia: Code(s): J96.21 - Acute and chronic respiratory failure with hypoxia; J96.22 - Acute and chronic respiratory failure with hypercapnia Status: Acute Assessment and Plan: Acute on chronic respiratory failure secondary to severe COPD exacerbation. Community-acquired pneumonia although chest x-ray is not suggestive and patient is low procalcitonin level. WBC elevated MRSA screen negative 06/28/2024: Intubated in the ED 06/28: Blood cultures negative x2 -status post says 8 days of ceftriaxone -status post 5 days of doxycycline -DC vancomycin (06/29), MRSA screen negative 07/02: Patient did have high peak pressures, after switching her from propofol to fentanyl and Versed due to elevated triglycerides. She was started on Nimbex infusion which improved her oxygenation, respiratory status and improved air entry. 07/03: Remains on Nimbex, adequate air entry, peak pressures are within normal limits continue fentanyl Versed infusion for now, will start weaning Nimbex, will maintain RASS of 0 to -2 on sedation meds 07/04: Chest x-ray, ABGs reviewed, ventilator adjusted, increased respiratory rate 22 and increased FiO2 to 45%, maintain O2 sats greater than 90%. Have also asked the bedside RN to start weaning the Nimbex to off -07/05: Patient has prolonged expiratory phase, decrease respiratory rate, increased I to E ratio, increased tidal volume. Will repeat ABGs -Continue bronchodilators, -off Solu-Medrol -07/05 and 07/06: off all sedation, will try to place patient on SBT when she is more awake. If she requires any kind of sedation will start Precedex infusion. Patient did not tolerate being off on sedation and went into SVT and AFib RVR. Once sedation was placed back on patient converted to sinus rhythm with regular rate. 07/07: Sedation was weaned again this morning, patient was started on Precedex infusion site could place her on a a breathing trial to evaluate for extubation. Patient again went into AFib RVR, sedation was reinstated 07/08: Tolerating mechanical ventilation, ABGs look good, chest x-ray shows worsening haziness in left lung base, likely developing pneumonia. Patient is WBC count has increased to 20,000, will obtain blood cultures, start cefepime and vancomycin of possible ventilator associated pneumonia 07/09: discussed with William, updated him with patient's condition and plan of care. I discussed with him 6 worsening chest x-ray, possible developing pneumonia with elevated WBC 6. That she would require tracheostomy and PEG tube placement to which she was agreeable, he stated will have to do everything to keep her alive. -Tracheostomy tube scheduled for 07/13/2024: Consulted Dr. Zhang, [phone] (cell), discussed with him regarding tracheostomy for the patient. -07/10: PEG tube was placed by GI (3) Acute exacerbation of chronic obstructive pulmonary disease: Code(s): J44.1 - Chronic obstructive pulmonary disease with (acute) exacerbation Status: Acute Assessment and Plan: Continue mechanical ventilation, bronchodilators, antibiotics, (4) Elevated troponin: Code(s): R77.8 - Other specified abnormalities of plasma proteins Status: Acute Assessment and Plan: Patient has elevated troponin likely secondary to demand ischemia from acute respiratory failure. EKG reviewed and does not show any ST elevation. Patient does not have any documented history of coronary disease. Troponins trending down Continue aspirin 81 mg p.o. daily and statin Appreciate cardiology evaluation and recommendation 06/29/2024: Echocardiogram Summary 1. The left ventricle is normal in size with thickened left ventricular rodríguez. The overall left ventricular systolic function appears preserved. Cannot rule out very mild hypokinesis of the apical wall. 2. The right ventricle is normal in size and systolic function. 3. The there is a small amount of pericardial effusion with no echocardiographic evidence of cardiac tamponade. (5) Hypothyroidism: Code(s): E03.9 - Hypothyroidism, unspecified Status: Acute Assessment and Plan: Continue levothyroxine. -07/06: TSH level - within normal limits (6) Electrolyte abnormality: Code(s): E87.8 - Other disorders of electrolyte and fluid balance, not elsewhere classified Status: Acute Assessment and Plan: Potassium levels within normal limits -appreciate Nephrology evaluation and recommendations (7) Elevated LFTs: Code(s): R79.89 - Other specified abnormal findings of blood chemistry Status: Acute Assessment and Plan: Right upper quadrant ultrasound was normal, status post cholecystectomy -hepatitis panel was within normal limit (8) RASHEL (acute kidney injury): Code(s): N17.9 - Acute kidney failure, unspecified Status: Acute Assessment and Plan: Acute kidney injury, likely related to hypotension, intravascular volume depletion, BUN elevated likely related to steroids -nephrology has been consulted and appreciate the evaluation and recommendation -discuss with Nephrology, will start albumin 25% x4 doses since she may be intravascularly depleted -monitor urine output, renal function electrolytes 07/06: Renal ultrasound: No hydronephrosis in either kidney. -urine lytes not reflective of prerenal picture -CKD levels elevated to 813 07/07: Patient may more urine overnight, creatinine trending down. Discuss with Nephrology, will give 1 L IV fluids over 10 hours 07/08: Urine output has improved, creatinine trending down. Low potassium levels will replete due to AFib RVR 07/09: Urine output is adequate, creatinine increased likely related to hypotension, AFib RVR. Will continue to monitor nephrology also following. Potassium levels are normal 07/11: Creatinine continues to increase, patient had some obstruction of her Goddard catheter which could also be a cause. Once Goddard was flushed she had jose quate urine output. Have asked the bedside RN to replace the Goddard catheter (9) Hyperglycemia: Code(s): R73.9 - Hyperglycemia, unspecified Status: Acute Assessment and Plan: Hyperglycemia likely related to tube feeds and or steroid -weaning steroid -continue Accu-Cheks and sliding scale insulin, -continue Lantus. (10) Anemia: Code(s): D64.9 - Anemia, unspecified Status: Acute Assessment and Plan: Patient dropped her hemoglobin to 8.3 from 10.9 (07/05) -07/06/2024: Stool occult was positive -iron panel did not show any iron deficiency, normal folate level -low vitamin B12 level, will give IM cyanocobalamin weekly x2 doses -continue Protonix to IV q.12 hours -appreciate GI evaluation , no endoscopy recommended at this time -hemoglobin remains stable 07/10: Patient dropped hemoglobin to 6.7 again, received 1 unit of packed RBCs. Heparin infusion was discontinued (which was for new onset atrial fibrillation RVR). -hemoglobin stable, continue monitor (11) Encephalopathy: Code(s): G93.40 - Encephalopathy, unspecified Status: Acute Assessment and Plan: Patient opens her eyes but does not follow simple commands, upper extremities are flaccid, pupils are equal and reactive, patient grimaces to pain but does not withdraw to pain stimulus -07/08: stat CT scan of the brain: 1. No acute intracranial process.2. 8 mm calcified extra-axial mass overlying the left parietal lobe most consistent with a meningioma. -ammonia level <9 -continue to monitor (12) Shock: Code(s): R57.9 - Shock, unspecified Status: Acute Assessment and Plan: 07/11: Patient with hypotension overnight, given IV fluid bolus. Started on Levophed, maintain MAP > 65 mmHg for adequate end organ perfusion especially renal perfusion -continue cefepime and vancomycin -07/08: Blood cultures with no growth x2 -07/08: Sputum culture growing yeast Plan DVT prophylaxis -SCDs, no chemoprophylaxis due to anemia requiring blood t ransfusion Stress ulcer prophylaxis -PPI IV q.12 hours Nutrition -tolerating tube feeds Code Status - Full Code Total Critical Care Time - 35 minutes -discussed with Nephrology and Cardiology 07/09: discussed with William, updated him with patient's condition and plan of care. I discussed with him 6 worsening chest x-ray, possible developing pneumonia with elevated WBC 6. That she would require tracheostomy and PEG tube placement to which she was agreeable, he stated will have to do everything to keep her alive. Consulted Dr. Zhang, [phone] (cell), discussed with him regarding tracheostomy for the patient. He is going to be coming to evaluate the patient today Due to a high probability of clinically significant, life threatening deterioration, the patient required my highest level of preparedness to intervene emergently and I personally spent this critical care time directly and personally managing the patient. This critical care time included obtaining a history; examining the patient; pulse oximetry; ordering and review of studies; arranging urgent treatment with development of a management plan; evaluation of patient's response to treatment; frequent reassessment; and discussions with other providers. It was exclusive of separately billable procedures and treating other patients and teaching time. Please see Assessment and Plan section and the rest of the note for further information on patient assessment and treatment This dictation may have been done utilizing a voice recognition system. Attempts have been made to correct errors. However, there may be uncorrected grammatical, spelling, and recognitions errors present. Subjective Date/time seen: 07/11/24 11:23 Interval history: Reason for consult: COPD exacerbation, acute hypercapnic respiratory failure, NSTEMI with elevated troponin 07/08: CT brain was negative, was done for encephalopathy 07/10: PEG tube placement by GI 05/10/2025: Patient seen and examined the ICU, remains intubated on CMV mode of ventilation, peep of 8, 50% FiO2. Sedated with fentanyl and Versed infusions, opens her eyes but does not follow simple commands, does withdraw to pain in all extremities. Overnight patient was hypoxic, FiO2 had to be increased to 50% and PEEP to 8. She also had low blood pressures, was given a 500 mL IV fluid bolus and started on Levophed. Patient did not have much urine output but after of Goddard was flushed she had 600 mL in urine output. Same thing happened again this morning, Goddard had to be flushed to get adequate urine output. I have asked the bedside are to switch to a new Goddard catheter. Patient remains in sinus rhythm, rate controlled . Review of Systems Review of Systems: ROS unobtainable: Yes unobtainable due to endotracheal tube, unobtainable due to medical condition and unobtainable due to mental status Exam Narrative: General: Pt is sedated and intubated and on mechanical ventilation HEENT: Pupils equal and reactive, sclera is clear, ETT in place Lungs/Chest: Trachea central, adequate air entry, coarse breath sounds at bases, no wheezing., rales noted on left lower lobe Cardiac: Sinus rhythm, rate controlled Abdomen: Decreased bowel sounds. Obese. Soft. NT. ND. Extremities: No clubbing, cyanosis or edema. Warm : Goddard in place Neurologic: Intubated, sedated opens her eyes but does not follow simple commands, grimaces to pain but does not withdraw. Objective Data Vital Signs Vital Signs: Vital Signs - 24 hr 07/10/24 12:00 07/10/24 12:00 07/10/24 12:00 Temperature 98 F Pulse Rate 64 Respiratory Rate 16 Blood Pressure 123/65 Pulse Oximetry 94 95 Oxygen Delivery Mechanical Ventilation Fraction of Inspired Oxygen 35 35 07/10/24 12:00 07/10/24 12:00 07/10/24 12:00 Temperature Pulse Rate 65 65 65 Respiratory Rate 16 16 Blood Pressure Pulse Oximetry Oxygen Delivery Fraction of Inspired Oxygen 07/10/24 14:00 07/10/24 14:00 07/10/24 14:00 Temperature 98 F Pulse Rate 65 65 65 Respiratory Rate 16 16 Blood Pressure 117/61 Pulse Oximetry 100 Oxygen Delivery Fraction of Inspired Oxygen 07/10/24 14:00 07/10/24 15:38 07/10/24 15:42 Temperature Pulse Rate 65 62 63 Respiratory Rate 16 16 Blood Pressure Pulse Oximetry 88 L Oxygen Delivery Mechanical Ventilation Fraction of Inspired Oxygen 35 07/10/24 15:46 07/10/24 16:00 07/10/24 16:00 Temperature 97.8 F Pulse Rate 63 62 64 Respiratory Rate 16 16 16 Blood Pressure 91/57 L Pulse Oximetry 92 Oxygen Delivery Fraction of Inspired Oxygen 07/10/24 16:00 07/10/24 16:00 07/10/24 16:00 Temperature Pulse Rate 64 Respiratory Rate 16 Blood Pressure Pulse Oximetry 92 Oxygen Delivery Mechanical Ventilation Fraction of Inspired Oxygen 35 35 07/10/24 16:00 07/10/24 18:00 07/10/24 18:00 Temperature 97.3 F L Pulse Rate 62 64 62 Respiratory Rate 16 16 Blood Pressure 95/50 L Pulse Oximetry 84 L Oxygen Delivery Fraction of Inspired Oxygen 07/10/24 18:00 07/10/24 18:00 07/10/24 18:50 Temperature Pulse Rate 62 63 Respiratory Rate 16 Blood Pressure Pulse Oximetry Oxygen Delivery Fraction of Inspired Oxygen 100 07/10/24 18:51 07/10/24 19:47 07/10/24 20:00 Temperature Pulse Rate Respiratory Rate Blood Pressure Pulse Oximetry 84 L Oxygen Delivery Fraction of Inspired Oxygen 60 60 07/10/24 20:00 07/10/24 20:00 07/10/24 20:00 Temperature 97.3 F L Pulse Rate 66 62 Respiratory Rate 16 16 Blood Pressure 101/38 L Pulse Oximetry 95 96 Oxygen Delivery Mechanical Ventilation Fraction of Inspired Oxygen 60 07/10/24 20:00 07/10/24 20:00 07/10/24 20:03 Temperature Pulse Rate 62 62 62 Respiratory Rate 16 Blood Pressure 101/38 L Pulse Oximetry Oxygen Delivery Fraction of Inspired Oxygen 07/10/24 20:30 07/10/24 20:35 07/10/24 20:40 Temperature Pulse Rate 66 66 66 Respiratory Rate 16 16 Blood Pressure Pulse Oximetry 96 Oxygen Delivery Mechanical Ventilation Fraction of Inspired Oxygen 60 07/10/24 21:31 07/10/24 22:00 07/10/24 22:00 Temperature 97.5 F L Pulse Rate 70 69 69 Respiratory Rate 16 Blood Pressure 113/42 L 113/42 L Pulse Oximetry 95 Oxygen Delivery Fraction of Inspired Oxygen 07/10/24 22:00 07/10/24 22:00 07/10/24 22:00 Temperature Pulse Rate 69 69 72 Respiratory Rate 16 16 Blood Pressure Pulse Oximetry Oxygen Delivery Fraction of Inspired Oxygen 07/10/24 23:38 07/11/24 00:00 07/11/24 00:00 Temperature Pulse Rate 66 Respiratory Rate Blood Pressure Pulse Oximetry 96 96 Oxygen Delivery Mechanical Ventilation Mechanical Ventilation Fraction of Inspired Oxygen 60 60 60 07/11/24 00:00 07/11/24 00:00 07/11/24 00:00 Temperature 97.7 F Pulse Rate 69 69 69 Respiratory Rate 16 Blood Pressure 118/45 L 118/45 L Pulse Oximetry 95 Oxygen Delivery Fraction of Inspired Oxygen 07/11/24 00:00 07/11/24 00:00 07/11/24 01:33 Temperature Pulse Rate 69 69 70 Respiratory Rate 16 16 Blood Pressure Pulse Oximetry 97 Oxygen Delivery Mechanical Ventilation Fraction of Inspired Oxygen 50 07/11/24 01:33 07/11/24 01:45 07/11/24 02:00 Temperature Pulse Rate 70 70 71 Respiratory Rate 16 16 Blood Pressure Pulse Oximetry Oxygen Delivery Fraction of Inspired Oxygen 07/11/24 02:00 07/11/24 02:00 07/11/24 02:00 Temperature 97.9 F Pulse Rate 71 71 71 Respiratory Rate 16 16 Blood Pressure 128/49 L 128/49 L Pulse Oximetry 96 Oxygen Delivery Fraction of Inspired Oxygen 07/11/24 02:00 07/11/24 02:15 07/11/24 02:30 Temperature Pulse Rate 71 70 72 Respiratory Rate 16 Blood Pressure 109/62 123/48 L Pulse Oximetry Oxygen Delivery Fraction of Inspired Oxygen 07/11/24 02:45 07/11/24 04:00 07/11/24 04:00 Temperature 97.9 F Pulse Rate 73 71 Respiratory Rate 16 Blood Pressure 107/47 L 99/60 L Pulse Oximetry 93 Oxygen Delivery Fraction of Inspired Oxygen 60 07/11/24 04:00 07/11/24 04:00 07/11/24 04:00 Temperature Pulse Rate 71 71 Respiratory Rate 16 Blood Pressure 99/60 L Pulse Oximetry 93 Oxygen Delivery Mechanical Ventilation Fraction of Inspired Oxygen 60 07/11/24 04:00 07/11/24 04:00 07/11/24 05:20 Temperature Pulse Rate 71 71 73 Respiratory Rate 16 Blood Pressure Pulse Oximetry 92 Oxygen Delivery Mechanical Ventilation Fraction of Inspired Oxygen 50 07/11/24 06:00 07/11/24 06:00 07/11/24 06:00 Temperature 97.9 F Pulse Rate 74 74 74 Respiratory Rate 16 Blood Pressure 110/47 L 110/47 L Pulse Oximetry 93 Oxygen Delivery Fraction of Inspired Oxygen 07/11/24 06:00 07/11/24 06:00 07/11/24 08:00 Temperature 97.9 F Pulse Rate 74 74 71 Respiratory Rate 16 16 16 Blood Pressure 117/48 L Pulse Oximetry 95 Oxygen Delivery Fraction of Inspired Oxygen 07/11/24 08:00 07/11/24 08:00 07/11/24 08:00 Temperature 97.9 F Pulse Rate 71 71 Respiratory Rate 16 Blood Pressure 117/48 L 103/55 L Pulse Oximetry 95 Oxygen Delivery Fraction of Inspired Oxygen 50 07/11/24 08:00 07/11/24 08:00 07/11/24 08:00 Temperature Pulse Rate 71 71 70 Respiratory Rate 16 16 Blood Pressure Pulse Oximetry Oxygen Delivery Fraction of Inspired Oxygen 07/11/24 08:00 07/11/24 08:24 07/11/24 08:28 Temperature Pulse Rate 73 Respiratory Rate 16 Blood Pressure Pulse Oximetry 91 Oxygen Delivery Mechanical Ventilation Fraction of Inspired Oxygen 50 83 07/11/24 08:30 07/11/24 08:32 07/11/24 08:33 Temperature Pulse Rate 73 73 73 Respiratory Rate 16 16 Blood Pressure Pulse Oximetry 95 Oxygen Delivery Mechanical Ventilation Fraction of Inspired Oxygen 40 07/11/24 08:37 07/11/24 08:44 07/11/24 10:00 Temperature Pulse Rate 73 73 76 Respiratory Rate 16 Blood Pressure Pulse Oximetry Oxygen Delivery Fraction of Inspired Oxygen 07/11/24 10:00 Temperature 98 F Pulse Rate 76 Respiratory Rate 15 Blood Pressure 121/43 L Pulse Oximetry 91 Oxygen Delivery Fraction of Inspired Oxygen Intake/Output Intake/Output: Intake & Output 07/08/24 07/09/24 07/10/24 07/11/24 23:59 23:59 23:59 23:59 Intake Total 3331.3 2401.4 1880.9 864.6 Output Total 1350 550 450 600 Balance 1981.3 1851.4 1430.9 264.6 Meds/Results Medications: Active Medications Generic Name Dose Route Start Last Admin Trade Name Freq PRN Reason Stop Dose Admin Albuterol/Ipratropium 3 ml 06/29/24 02:00 07/11/24 08:23 Ipratropium 0.5 Mg/Albuterol Sulfate 2.5 Mg Ampul.Neb 3 Ml INHALATION 3 ml Q6HRT BARBARA Administration Amiodarone HCl 400 mg 07/09/24 12:20 07/11/24 08:37 Amiodarone Hcl 200 Mg Tablet PO 400 mg Q12HR BARBARA Administration Aspirin 81 mg 07/01/24 08:00 07/11/24 08:37 Aspirin 81 Mg Chewable Tablet PO 81 mg DAILY@0800 [facility] Administration Atorvastatin Calcium 40 mg 06/29/24 09:00 07/11/24 08:38 Atorvastatin 40 Mg Tablet PO 40 mg DAILY BARBARA Administration Cyanocobalamin 1,000 mcg 07/07/24 12:00 07/07/24 13:35 Cyanocobalamin Inj 1,000 Mcg/Ml Vial IM 07/14/24 09:01 1,000 mcg WEEKLY BARBARA Administration Dextrose 12.5 gm 06/29/24 08:08 Dextrose 50% 25 Gm/50 Ml Syringe IV PUSH PRN PRN Hypoglycemia Protocol Glucagon 1 mg 06/29/24 08:08 Glucagon For Inj 1 Mg Vial IM PRN PRN Hypoglycemia Protocol Glucose 15 gm 06/29/24 08:08 Glucose Oral Gel 15 Gm Of Glucse In 37.5 Gm Tube PO PRN PRN Hypoglycemia Protocol Heparin Sodium (Porcine) 5,000 units 07/07/24 11:24 Heparin Sodium 5,000 Units/Ml Vial IV PUSH PRN PRN aPTT less than 55 seconds Heparin Sodium (Porcine) 2,500 units 07/07/24 11:24 07/09/24 07:21 Heparin Sodium 5,000 Units/Ml Vial IV PUSH 2,500 units PRN PRN Administration aPTT 55 - 70 seconds Hydralazine HCl 10 mg 07/06/24 16:42 07/06/24 17:03 Hydralazine Hcl 20 Mg/Ml Vial IV PUSH 10 mg Q4H PRN Administration Blood Pressure - High Dextrose 1,000 mls @ 100 mls/hr 06/29/24 08:08 Dextrose 5% 1,000 Ml IVPB PRN PRN Hypoglycemia Protocol Fentanyl Citrate 2,500 mcg in 250 mls @ 5 mls/hr 07/06/24 17:55 07/11/24 08:00 Fentanyl 2,500 Mcg/Ns 250 Ml IV CONT 50 mcg/hr .Q50H BARBARA 5 mls/hr Titration Protocol 50 MCG/HR Midazolam HCl 100 mg in 100 mls @ 2 mls/hr 07/06/24 17:55 07/11/24 08:44 Versed 100 Mg/Ns 100 Ml IV CONT 2 mg/hr .Q50H BARBARA 2 mls/hr Administration Protocol 2 MG/HR Heparin Sodium/Dextrose 25,000 units in 250 mls @ 0 mls/hr 07/07/24 11:25 07/10/24 08:52 Heparin Sodium/D5w 100 Units/Ml IV CONT 0 units/hr .Q0M BARBARA 0 mls/hr Titration Protocol Cefepime HCl 1 gm in 50 mls @ 100 mls/hr 07/08/24 11:00 07/11/24 08:38 Maxipime 1 Gm/Ns 50 Ml IVPB 100 mls/hr Q12HR BARBARA Administration Norepinephrine Bitartrate 8 mg in 250 mls @ 3.75 mls/hr 07/10/24 19:50 07/11/24 08:00 Levophed 8 Mg/D5w 250 Ml IV CONT 2 mcg/min .Q24H BARBARA 3.75 mls/hr Titration Protocol 2 MCG/MIN Insulin Aspart 3 - 6 units 06/29/24 12:00 07/11/24 06:13 Insulin Aspart (*Bkc) 100 Units/Ml SUB-Q Not Given Q6HR BARBARA Protocol Insulin Glargine 8 units 07/06/24 09:00 07/11/24 08:57 Insulin Glargine (*Bkc) 100 Units/Ml SUB-Q 8 units DAILY BARBARA Administration Levothyroxine Sodium 50 mcg 06/30/24 06:30 07/11/24 06:25 Levothyroxine Sodium 50 Mcg Tablet FEED TUBE 50 mcg DAILY@0630 BARBARA Administration Multi-Ingred Cream/Lotion/Oil/Oint 1 applic 06/29/24 09:00 07/11/24 08:40 Mineral Oil/White Petrolatum Ointment EACH EYE 1 applic Q12HR BARBARA Administration Pantoprazole Sodium 40 mg 07/06/24 21:00 07/11/24 08:40 Pantoprazole Sodium Iv 40 Mg Vial IV PUSH 40 mg Q12HR BARBARA Administration Sodium Chloride 10 ml 06/29/24 14:00 07/11/24 06:25 Central Line Flush IV PUSH 10 ml Q8HR BARBARA Administration Sodium Chloride 10 ml 06/29/24 12:40 Central Line Flush IV PUSH PRN PRN with TPN bag changes Sodium Chloride 20 ml 06/29/24 12:40 Central Line Flush IV PUSH PRN PRN after blood draws Vancomycin HCl 1 each 07/08/24 10:48 Vancomycin For Acute Kidney Injury IVPB PRN PRN Vancomycin Protocol Radiology Results: ITS Impressions Abdomen X-Ray 06/28/24 20:03 IMPRESSION: Nasogastric tube in good position and ready for immediate use. Abdomen Ultrasound 07/03/24 14:12 IMPRESSION: 1. Normal right upper quadrant ultrasound status post cholecystectomy. Renal Ultrasound 07/06/24 08:30 IMPRESSION: 1. No hydronephrosis in either kidney. Head CT 07/08/24 10:08 IMPRESSION: 1. No acute intracranial process. 2. 8 mm calcified extra-axial mass overlying the left parietal lobe most consistent with a meningioma. Chest X-Ray 07/11/24 06:39 IMPRESSION: 1. Emphysema with interstitial and airspace opacities in the lower lung zones which could represent atelectasis pneumonia, pulmonary edema or some combination thereof. 2. Decreased very small left pleural effusion. Labs Labs: Laboratory Results - last 24 hr 07/06/24 07/10/24 07/10/24 06:40 10:59 12:20 WBC RBC Hgb 7.8 L Hct 24.0 L MCV MCH MCHC RDW Plt Count MPV Immature Gran % (Auto) Neut % (Auto) Lymph % (Auto) [place] % (Auto) Eos % (Auto) Baso % (Auto) Lymph # (Auto) [place] # (Auto) Eos # (Auto) Baso # (Auto) Abs Immat Gran (auto) Absolute Neuts (auto) Absolute Nucleated RBC Nucleated RBC % Platelet Estimate Hypochromasia Poikilocytosis Anisocytosis Ovalocytes Schistocytes PT INR APTT Puncture Site ABG pH ABG pCO2 ABG pO2 ABG PO2/FiO2 Ratio ABG HCO3 ABG O2 Saturation ABG O2 Content ABG Base Excess A-a Gradient Oxyhemoglobin Carboxyhemoglobin Methemoglobin Reduced Hemoglobin Total Hemoglobin O2 Delivery Device O2 Liters/Min Minute Volume Vent Rate Vent Mode FiO2 Tidal Volume PEEP Peak Inspir Pressure Pressure Support Sodium Potassium Chloride Carbon Dioxide Anion Gap BUN Creatinine Estim Creat Clear Calc Estimated GFR Glucose POC Capillary Glucose 125 H Serum Osmolality 354 H Calcium Phosphorus Magnesium Total Bilirubin AST ALT Alkaline Phosphatase Total Protein Albumin Vancomycin Trough 07/10/24 07/10/24 07/10/24 17:46 21:26 23:41 WBC RBC Hgb Hct MCV MCH MCHC RDW Plt Count MPV Immature Gran % (Auto) Neut % (Auto) Lymph % (Auto) [place] % (Auto) Eos % (Auto) Baso % (Auto) Lymph # (Auto) [place] # (Auto) Eos # (Auto) Baso # (Auto) Abs Immat Gran (auto) Absolute Neuts (auto) Absolute Nucleated RBC Nucleated RBC % Platelet Estimate Hypochromasia Poikilocytosis Anisocytosis Ovalocytes Schistocytes PT INR APTT Puncture Site ABG pH ABG pCO2 ABG pO2 ABG PO2/FiO2 Ratio ABG HCO3 ABG O2 Saturation ABG O2 Content ABG Base Excess A-a Gradient Oxyhemoglobin Carboxyhemoglobin Methemoglobin Reduced Hemoglobin Total Hemoglobin O2 Delivery Device O2 Liters/Min Minute Volume Vent Rate Vent Mode FiO2 Tidal Volume PEEP Peak Inspir Pressure Pressure Support Sodium Potassium Chloride Carbon Dioxide Anion Gap BUN Creatinine Estim Creat Clear Calc Estimated GFR Glucose POC Capillary Glucose 101 109 H 131 H Serum Osmolality Calcium Phosphorus Magnesium Total Bilirubin AST ALT Alkaline Phosphatase Total Protein Albumin Vancomycin Trough 07/11/24 07/11/24 04:43 05:27 WBC 27.1 H RBC 2.76 L Hgb 7.9 L Hct 24.6 L MCV 89.1 MCH 28.6 MCHC 32.1 RDW 17.2 H Plt Count 232 MPV 12.2 H Immature Gran % (Auto) 0.9 H Neut % (Auto) 85.9 H Lymph % (Auto) 4.3 L [place] % (Auto) 7.3 Eos % (Auto) 1.5 Baso % (Auto) 0.1 L Lymph # (Auto) 1.18 [place] # (Auto) 2.0 H Eos # (Auto) 0.4 H Baso # (Auto) 0.0 Abs Immat Gran (auto) 0.25 H Absolute Neuts (auto) 23.3 H Absolute Nucleated RBC 0.080 H Nucleated RBC % 0.3 H Platelet Estimate Adequate Hypochromasia 1+ Poikilocytosis 1+ Anisocytosis 1+ Ovalocytes 1+ Schistocytes Rare PT 14.8 H INR 1.1 APTT 26.9 Puncture Site Left radial ABG pH 7.393 ABG pCO2 41.5 ABG pO2 68.8 L ABG PO2/FiO2 Ratio 1.38 ABG HCO3 24.7 ABG O2 Saturation 93.7 L ABG O2 Content 11.2 L ABG Base Excess -0.2 A-a Gradient 241.0 Oxyhemoglobin 91.5 Carboxyhemoglobin 0.4 Methemoglobin 0.3 Reduced Hemoglobin 7.8 H Total Hemoglobin 8.6 L O2 Delivery Device Ventilator O2 Liters/Min Not Reportable Minute Volume Not Reportable Vent Rate 16 Vent Mode Cmv FiO2 50 Tidal Volume 480 PEEP 2 Peak Inspir Pressure Not Reportable Pressure Support Not Reportable Sodium 141 Potassium 4.4 Chloride 104 Carbon Dioxide 26 Anion Gap 11 BUN 131 H Creatinine 2.38 H Estim Creat Clear Calc 18 Estimated GFR 24 L Glucose 151 H POC Capillary Glucose Serum Osmolality Calcium 8.9 Phosphorus 5.7 H Magnesium 2.6 H Total Bilirubin 0.5 AST 35 ALT 46 H Alkaline Phosphatase 84 Total Protein 5.0 L Albumin 3.0 L Vancomycin Trough 20.7 H Quality VTE Prophylaxis VTE prophylaxis: pharmacologic ordered
[2024-07-11 12:27] LABS: Glucose Point of Care 174 mg/dl (65-105)
[2024-07-11 12:40] LABS: Add Urine Microscopic? YES; Appearance Urine Turbid (Clear); Bacteria Urine None Seen /hpf; Bilirubin Urine Negative (Negative); Blood Urine 3+ (Negative); Color Urine Yellow (Yellow); Glucose Urine UA Negative (Negative); Granular Casts Urine Present /lpf; Ketones Urine Negative (Negative); Leukocyte Esterase Ur 3+ LEU/UL (Negative); Need Manual Microscopic Reviewed; Nitrate Urine Negative (Negative); Non Pathogenic Casts >20; Protein Urine 2+ mg/dL (Negative); RBC Urine 21-50 /hpf (0-2); Specific Grav Ur 1.015 (1.001-1.035); Squamous Epithelial Cell Urine Many /hpf (Few); Urobilinogen Urine 0.2 mg/dL (<2.0); WBC Urine >100 /hpf (0-3)
[2024-07-11 18:05] LABS: Glucose Point of Care 137 mg/dl (65-105)
[2024-07-12] VITALS (31 sets, daily range): BP systolic 103–138; BP diastolic 44–72; PULSE 67–721; RESP 6–18; TEMP 36.6–37.3; O2SAT 93–97
[2024-07-12 00:19] LABS: Glucose Point of Care 153 mg/dl (65-105)
[2024-07-12] MEDS: IPRATROPIUM 0.5 MG/ALBUTEROL SULFATE 2.5 MG AMPUL.NEB 3 ML INHALATION ×4 (02:41→21:08)
[2024-07-12] MEDS: FENTANYL 2,500MCG/NS250ML(*CRX 2,500 MCG/250 ML BAG IV CONT (03:27)
[2024-07-12 05:05] LABS: Alveolar/Arterial O2 Gradient 215.6 mmHg; Base Excess ABG -0.2 mEq/l (+/-2.0); Carboxyhemoglobin 0.5 % THb (0-2.0); Fractional Inspired Oxygen 50 %; HCO3 ABG 25.4 mEq/l (22.0-26.0); Methemoglobin ABG 0.3 %THb (0-1.5); Oxygen Content ABG 12.5 %vol (16.0-22.0); Oxygen Saturation ABG 96.5 % (95.0-100.0); Oxyhemoglobin 95.5 % THb (90.0-100.0); PCO2 ABG 45.8 mmHg (35.0-45.0); PO2 ABG 89.4 mmHg (80.0-100.0); PO2 FiO2 Ratio Arterial Blood 1.79 %; Reduced Hemoglobin 3.7 %THb (0-5.0); Total Hemoglobin 9.2 g/dL (12.0-18.0); pH ABG 7.361 (7.350-7.450)
[2024-07-12 05:52] LABS: Basophils Percent Auto 0.2 % (0.2-1.2); Eosinophils Absolute Auto 0.3 K/mm3 (0-0.3); Eosinophils Percent Auto 1.1 % (0-4.4); Hemoglobin 7.5 g/dL (12.0-15.0); Immature Granulocyte Absolute 0.19 K/mm3 (0.00-0.031); Immature Granulocyte Percent A 0.8 % (0-0.5); Lymphocytes Absolute Auto 0.99 K/mm3 (0.9-3.2); Lymphocytes Percent Auto 4.2 % (18.3-44.2); Mean Corpuscular HGB Conc 32.6 g/dl (32-36); Mean Corpuscular Hemoglobin 29.9 pg (26-34); Mean Corpuscular Volume 91.6 fl (80-100); Mean Platelet Volume 12.5 fl (7.4-10.4); Monocytes Absolute Auto 1.9 K/mm3 (0.1-0.6); Monocytes Percent Auto 7.9 % (2.6-8.5); Neutrophils Absolute Auto 20.3 K/mm3 (1.3-6.7); Neutrophils Percent Auto 85.8 % (45.5-73.1); Nucleated Red Blood Cells Perc 0.2 % (0.0-0.2); Platelet Count Result 249 k/mm3 (150-375); Red Blood Count 2.51 M/mm3 (4.2-5.4); Red Cell Distribution Width 17.4 % (11.5-14.5); White Blood Count 23.7 K/mm3 (4.5-10.0)
[2024-07-12 05:56] LABS: Arterial Blood Gas PEEP 8 cmH2O; Arterial Blood Gas Vent Mode CMV; Arterial Blood Gas Ventilator rate 16 /MIN; Device VENTILATOR; Modified Allen's Test Pass; Site Drawn RIGHT RADIAL
[2024-07-12 05:57] LABS: Arterial Blood Gas Tidal Volume 480 ml
[2024-07-12 06:00] LABS: Lactic Acid Reflex 0.8 mmol/L (0.7-2.0)
[2024-07-12 06:06] LABS: Alanine Aminotransferase 42 U/L (6-35); Alkaline Phosphatase 113 U/L (38-126); Anion Gap 10 mmol/L (4-12); Aspartate Amino Transferase 30 U/L (14-36); Bilirubin,Total 0.4 mg/dL (0.2-1.3); Blood Urea Nitrogen 118 mg/dL (7-17); Calcium 9.1 mg/dL (8.4-10.2); Carbon Dioxide 27 mmol/L (22-30); Chloride 106 mmol/L (98-107); Estimated CRCL calculation 16 ml/min; Estimated Glomerular Filt Rate 21; Glucose 138 mg/dL (65-110); Magnesium 2.5 mg/dL (1.6-2.3); Phosphorus 5.6 mg/dL (2.5-4.5); Potassium 4.2 mmol/L (3.4-5.0); Sodium 143 mmol/L (137-145)
[2024-07-12 06:07] LABS: Vancomycin Trough 16.5 ug/mL (10.0-20.0)
[2024-07-12] MEDS: LEVOTHYROXINE SODIUM 50 MCG TABLET FEED TUBE (06:15)
[2024-07-12] MEDS: CENTRAL LINE FLUSH 10 ML IV PUSH ×3 (06:16→21:15)
[2024-07-12 06:34] LABS: Anisocytosis 1+; Hypochromasia 1+; Ovalocytes 1+; Platelet Estimate Adequate (Adequate); Schistocytes None Seen
[2024-07-12] MEDS: CEFEPIME 1 GM/NS 50 ML 1 GM/50 ML BAG IVPB ×2 (09:24→21:14)
[2024-07-12] MEDS: AMIODARONE HCL 200 MG TABLET 400 MG PO ×2 (09:24→21:15)
[2024-07-12] MEDS: ATORVASTATIN 40 MG TABLET PO (09:24)
[2024-07-12] MEDS: PANTOPRAZOLE SODIUM IV 40 MG VIAL IV PUSH ×2 (09:24→21:15)
[2024-07-12] MEDS: ASPIRIN 81 MG CHEWABLE TABLET PO (09:24)
[2024-07-12] MEDS: MINERAL OIL/WHITE PETROLATUM OINTMENT 1 APPLIC EACH EYE ×2 (09:25→21:14)
[2024-07-12] MEDS: INSULIN GLARGINE (*BKC) 100 UNITS/ML 8 UNITS SUB-Q (09:35)
--- NOTE | 2024-07-12 09:53 | P.PNIM_ITS ---
Progress Note: A&P Assessment and Plan (1) Atrial fibrillation with RVR: Code(s): I48.91 - Unspecified atrial fibrillation Status: Acute Assessment and Plan: 07/06 evening: Patient went into SVT, status post tenderness and 6 mg and 12 mg, underlying rhythm was AFib RVR, converted to normal sinus rhythm with IV metoprolol x1 and increasing her sedation. Patient remained in sinus rhythm also the morning of 07/07/2024. 07/07: Started weaning her sedation again today, patient went to AFib RVR, -hold heparin infusion due to drop in hemoglobin coffee-ground emesis -07/06; TSH level within normal limits, troponin level with no change since admission -EKG showed AFib RVR, discussed with cardiology, 07/08: In the evening patient went into AFib RVR again, requiring an amiodarone bolus, increased amiodarone infusion to 1 mg/min. Patient dropped her blood pressures and heart rate so amiodarone infusion was held. Patient was started on Robert-Synephrine. 07/09: Patient was hypertensive, Robert-Synephrine was discontinued. Cardiology recommended starting p.o. amiodarone which was ordered. Also recommended metoprolol which currently have not started because borderline blood pressures and she just came off Robert-Synephrine 07/10: Currently in sinus rhythm rate controlled. Cardiology aware that she was anemic and dropped her hemoglobin on 07/10/2024. Heparin infusion was discontinued 07/12 Patient remains in sinus rhythm. Plan is to continue current treatment and monitor closely. (2) Acute on chronic respiratory failure with hypoxia and hypercapnia: Code(s): J96.21 - Acute and chronic respiratory failure with hypoxia; J96.22 - Acute and chronic respiratory failure with hypercapnia Status: Acute Assessment and Plan: Acute on chronic respiratory failure secondary to severe COPD exacerbation. Community-acquired pneumonia although chest x-ray is not suggestive and patient is low procalcitonin level. WBC elevated MRSA screen negative 06/28/2024: Intubated in the ED 06/28: Blood cultures negative x2 -status post says 8 days of ceftriaxone -status post 5 days of doxycycline -DC vancomycin (06/29), MRSA screen negative 07/02: Patient did have high peak pressures, after switching her from propofol to fentanyl and Versed due to elevated triglycerides. She was started on Nimbex infusion which improved her oxygenation, respiratory status and improved air entry. 07/03: Remains on Nimbex, adequate air entry, peak pressures are within normal limits continue fentanyl Versed infusion for now, will start weaning Nimbex, will maintain RASS of 0 to -2 on sedation meds 07/04: Chest x-ray, ABGs reviewed, ventilator adjusted, increased respiratory rate 22 and increased FiO2 to 45%, maintain O2 sats greater than 90%. Have also asked the bedside RN to start weaning the Nimbex to off -07/05: Patient has prolonged expiratory phase, decrease respiratory rate, increased I to E ratio, increased tidal volume. Will repeat ABGs -Continue bronchodilators, -off Solu-Medrol -07/05 and 07/06: off all sedation, will try to place patient on SBT when she is more awake. If she requires any kind of sedation will start Precedex infusion. Patient did not tolerate being off on sedation and went into SVT and AFib RVR. Once sedation was placed back on patient converted to sinus rhythm with regular rate. 07/07: Sedation was weaned again this morning, patient was started on Precedex infusion site could place her on a a breathing trial to evaluate for extubation. Patient again went into AFib RVR, sedation was reinstated 07/08: Tolerating mechanical ventilation, ABGs look good, chest x-ray shows worsening haziness in left lung base, likely developing pneumonia. Patient is WBC count has increased to 20,000, will obtain blood cultures, start cefepime and vancomycin of possible ventilator associated pneumonia 07/09: discussed with William, updated him with patient's condition and plan of care. I discussed with him 6 worsening chest x-ray, possible developing pneumonia with elevated WBC 6. That she would require tracheostomy and PEG tube placement to which she was agreeable, he stated will have to do everything to keep her alive. -Tracheostomy tube scheduled for 07/13/2024: Consulted Dr. Zhang, [phone] (cell), discussed with him regarding tracheostomy for the patient. -07/10: PEG tube was placed by GI 07/12 Continue with vent support for now. Tracheostomy scheduled for Saturday. (3) Acute exacerbation of chronic obstructive pulmonary disease: Code(s): J44.1 - Chronic obstructive pulmonary disease with (acute) exacerbation Status: Acute Assessment and Plan: Continue mechanical ventilation, bronchodilators, antibiotics, Tracheostomy scheduled for Saturday. (4) Elevated troponin: Code(s): R77.8 - Other specified abnormalities of plasma proteins Status: Acute Assessment and Plan: Patient has elevated troponin likely secondary to demand ischemia from acute respiratory failure. EKG reviewed and does not show any ST elevation. Patient does not have any documented history of coronary disease. Troponins trending down Continue aspirin 81 mg p.o. daily and statin Appreciate cardiology evaluation and recommendation 06/29/2024: Echocardiogram Summary 1. The left ventricle is normal in size with thickened left ventricular rodríguez. The overall left ventricular systolic function appears preserved. Cannot rule out very mild hypokinesis of the apical wall. 2. The right ventricle is normal in size and systolic function. 3. The there is a small amount of pericardial effusion with no echocardiographic evidence of cardiac tamponade. (5) Hypothyroidism: Code(s): E03.9 - Hypothyroidism, unspecified Status: Acute Assessment and Plan: Continue levothyroxine. -07/06: TSH level - within normal limits (6) Electrolyte abnormality: Code(s): E87.8 - Other disorders of electrolyte and fluid balance, not elsewhere classified Status: Acute Assessment and Plan: Potassium levels within normal limits -appreciate Nephrology evaluation and recommendations (7) Elevated LFTs: Code(s): R79.89 - Other specified abnormal findings of blood chemistry Status: Acute Assessment and Plan: Right upper quadrant ultrasound was normal, status post cholecystectomy -hepatitis panel was within normal limit (8) RASHEL (acute kidney injury): Code(s): N17.9 - Acute kidney failure, unspecified Status: Acute Assessment and Plan: Acute kidney injury, likely related to hypotension, intravascular volume de pletion, BUN elevated likely related to steroids -nephrology has been consulted and appreciate the evaluation and recommendation -discuss with Nephrology, will start albumin 25% x4 doses since she may be intravascularly depleted -monitor urine output, renal function electrolytes 07/06: Renal ultrasound: No hydronephrosis in either kidney. -urine lytes not reflective of prerenal picture -CKD levels elevated to 813 07/07: Patient may more urine overnight, creatinine trending down. Discuss with Nephrology, will give 1 L IV fluids over 10 hours 07/08: Urine output has improved, creatinine trending down. Low potassium levels will replete due to AFib RVR 07/09: Urine output is adequate, creatinine increased likely related to hypotension, AFib RVR. Will continue to monitor nephrology also following. Potassium levels are normal 07/11: Creatinine continues to increase, patient had some obstruction of her Goddard catheter which could also be a cause. Once Goddard was flushed she had adequate urine output. Have asked the bedside RN to replace the Goddard catheter 07/12 Continue current treatment, monitor creatinine. (9) Hyperglycemia: Code(s): R73.9 - Hyperglycemia, unspecified Status: Acute Assessment and Plan: Hyperglycemia likely related to tube feeds and or steroid -weaning steroid -continue Accu-Cheks and sliding scale insulin, -continue Lantus. (10) Anemia: Code(s): D64.9 - Anemia, unspecified Status: Acute Assessment and Plan: Patient dropped her hemoglobin to 8.3 from 10.9 (07/05) -07/06/2024: Stool occult was positive -iron panel did not show any iron deficiency, normal folate level -low vitamin B12 level, will give IM cyanocobalamin weekly x2 doses -continue Protonix to IV q.12 hours -appreciate GI evaluation , no endoscopy recommended at this time -hemoglobin remains stable 07/10: Patient dropped hemoglobin to 6.7 again, received 1 unit of packed RBCs. Heparin infusion was discontinued (which was for new onset atrial fibrillation RVR). -hemoglobin stable, continue monitor 07/12 Hemoglobin is stable. Monitor closely. (11) Encephalopathy: Code(s): G93.40 - Encephalopathy, unspecified Status: Acute Assessment and Plan: Patient opens her eyes but does not follow simple commands, upper extremities are flaccid, pupils are equal and reactive, patient grimaces to pain but does not withdraw to pain stimulus -07/08: stat CT scan of the brain: 1. No acute intracranial process.2. 8 mm calcified extra-axial mass overlying the left parietal lobe most consistent with a meningioma. -ammonia level <9 -continue to monitor (12) Shock: Code(s): R57.9 - Shock, unspecified Status: Acute Assessment and Plan: 07/11: Patient with hypotension overnight, given IV fluid bolus. Started on Levophed, maintain MAP > 65 mmHg for adequate end organ perfusion especially renal perfusion -continue cefepime and vancomycin -07/08: Blood cultures with no growth x2 -07/08: Sputum culture growing yeast 07/12 blood pressure stable Plan DVT prophylaxis -SCDs, no chemoprophylaxis due to anemia requiring blood transfusion Stress ulcer prophylaxis -PPI IV q.12 hours Nutrition -tolerating tube feeds Code Status - Full Code Subjective Date/time seen: 07/12/24 09:53 Interval history: Patient was seen during the morning rounds today. Patient remains intubated. No new overnight complaints. . Review of Systems Review of Systems: ROS unobtainable: Yes unobtainable due to endotracheal tube, unobtainable due to medical condition and unobtainable due to mental status Exam Narrative: General: Pt is sedated and intubated and on mechanical ventilation HEENT: Pupils equal and reactive, sclera is clear, ETT in place Lungs/Chest: Trachea central, adequate air entry, coarse breath sounds at bases, no wheezing., rales noted on left lower lobe Cardiac: Sinus rhythm, rate controlled Abdomen: Decreased bowel sounds. Obese. Soft. NT. ND. Extremities: No clubbing, cyanosis or edema. Warm : Goddard in place Neurologic: Intubated, sedated opens her eyes but does not follow simple commands, grimaces to pain but does not withdraw. Const: Other: No acute distress, intubated and sedated head of bed at 30?, well-developed well-nourished HENMT: Other: Head is normocephalic atraumatic, pupils are equal and pinpoint, mucous membranes are dry edentulous in upper and lower jaw, 7.5 ET tube measuring 24 cm at the lip, OG tube in place Neck: Other: No JVD, no lymphadenopathy, trachea midline Resp: Other: Clear to auscultation bilaterally, decreased breath sounds at the bases, mild tachypnea, over breathing the vent Cardio: Other: Regular rate, regular rhythm, 2+ bilateral radial pulses, 2+ left pedal pulse, 1+ right pedal pulse GI: Other: Soft, slightly distended, normoactive bowel sounds, patient does grimace with palpation of the lower abdomen : Other: Goddard catheter in place with a small amount of dark yellow urine present Skin: Other: Overall dry skin, skin of the lower extremities has appearance similar to lichen planus, no petechiae, no inspected bruising Neuro: Other: The patient grimaces to noxious stimuli, when sedation was lower the patient was sitting up and trying to communicate with the nurses to tell them that she was cold, patient seems to have increased tone of bilateral upper extremities but overall normal reflexes, no localizing neurologic deficits noted however exam limited due to patient condition Extrem: Other: Patient has stiffness of the upper extremities bilaterally this is unclear if it is increased tone verses decreased range of motion of the shoulders due to arthritic changes Psych: Other: Anxious and restless when sedation is lower, otherwise cooperative Objective Data Vital Signs Vital Signs: Vital Signs - 24 hr 07/11/24 10:00 07/11/24 10:00 07/11/24 10:00 Temperature 36.6 C Pulse Rate 76 76 76 Respiratory Rate 15 Blood Pressure 121/43 L 121/43 L Pulse Oximetry 91 Oxygen Delivery Fraction of Inspired Oxygen 07/11/24 10:00 07/11/24 10:00 07/11/24 11:08 Temperature Pulse Rate 76 76 74 Respiratory Rate 16 16 Blood Pressure Pulse Oximetry 92 Oxygen Delivery Mechanical Ventilation Fraction of Inspired Oxygen 40 07/11/24 12:00 07/11/24 12:00 07/11/24 12:00 Temperature Pulse Rate 75 75 74 Respiratory Rate 16 16 Blood Pressure 104/48 L Pulse Oximetry Oxygen Delivery Fraction of Inspired Oxygen 07/11/24 12:00 07/11/24 12:00 07/11/24 12:00 Temperature 36.9 C Pulse Rate 74 76 Respiratory Rate 16 Blood Pressure 127/47 L Pulse Oximetry 93 93 Oxygen Delivery Mechanical Ventilation Fraction of Inspired Oxygen 40 07/11/24 12:00 07/11/24 13:56 07/11/24 13:59 Temperature Pulse Rate 78 77 Respiratory Rate 16 Blood Pressure Pulse Oximetry 93 Oxygen Delivery Mechanical Ventilation Fraction of Inspired Oxygen 40 40 07/11/24 14:00 07/11/24 14:00 07/11/24 14:00 Temperature 37.1 C Pulse Rate 77 78 78 Respiratory Rate 16 16 Blood Pressure 126/53 L Pulse Oximetry 90 Oxygen Delivery Fraction of Inspired Oxygen 07/11/24 14:00 07/11/24 14:00 07/11/24 14:01 Temperature Pulse Rate 78 78 77 Respiratory Rate 16 17 Blood Pressure 126/53 L Pulse Oximetry Oxygen Delivery Fraction of Inspired Oxygen 07/11/24 15:14 07/11/24 15:32 07/11/24 15:32 Temperature Pulse Rate 80 81 Respiratory Rate 16 16 Blood Pressure Pulse Oximetry 87 L Oxygen Delivery Fraction of Inspired Oxygen 50 07/11/24 16:00 07/11/24 16:00 07/11/24 16:00 Temperature Pulse Rate 80 Respiratory Rate Blood Pressure Pulse Oximetry 93 Oxygen Delivery Mechanical Ventilation Fraction of Inspired Oxygen 50 50 07/11/24 16:00 07/11/24 16:00 07/11/24 16:00 Temperature 37.2 C Pulse Rate 8 L 80 80 Respiratory Rate 18 16 Blood Pressure 117/50 L 117/50 L Pulse Oximetry 93 Oxygen Delivery Fraction of Inspired Oxygen 07/11/24 16:00 07/11/24 17:14 07/11/24 18:00 Temperature Pulse Rate 80 78 78 Respiratory Rate 16 Blood Pressure Pulse Oximetry 93 Oxygen Delivery Mechanical Ventilation Fraction of Inspired Oxygen 50 07/11/24 18:00 07/11/24 18:00 07/11/24 18:00 Temperature 37.2 C Pulse Rate 78 77 77 Respiratory Rate 16 16 Blood Pressure 106/84 124/53 L Pulse Oximetry 93 Oxygen Delivery Fraction of Inspired Oxygen 07/11/24 18:00 07/11/24 20:00 07/11/24 20:00 Temperature Pulse Rate 77 Respiratory Rate 16 Blood Pressure Pulse Oximetry 95 Oxygen Delivery Mechanical Ventilation Fraction of Inspired Oxygen 50 50 07/11/24 20:00 07/11/24 20:00 07/11/24 20:00 Temperature 37.2 C Pulse Rate 77 77 77 Respiratory Rate 18 18 Blood Pressure 118/57 L 118/57 L Pulse Oximetry 93 Oxygen Delivery Fraction of Inspired Oxygen 07/11/24 20:00 07/11/24 20:00 07/11/24 20:05 Temperature Pulse Rate 77 77 77 Respiratory Rate 18 Blood Pressure Pulse Oximetry Oxygen Delivery Fraction of Inspired Oxygen 07/11/24 20:12 07/11/24 20:12 07/11/24 20:17 Temperature Pulse Rate 77 77 77 Respiratory Rate 16 19 Blood Pressure Pulse Oximetry 95 Oxygen Delivery Mechanical Ventilation Fraction of Inspired Oxygen 50 07/11/24 22:00 07/11/24 22:00 07/11/24 22:00 Temperature 37.2 C Pulse Rate 79 79 79 Respiratory Rate 14 14 Blood Pressure 121/53 L 121/53 L Pulse Oximetry 93 Oxygen Delivery Fraction of Inspired Oxygen 02/15/25 22:00 07/11/24 22:00 07/11/24 23:30 Temperature Pulse Rate 79 79 78 Respiratory Rate 14 Blood Pressure Pulse Oximetry 94 Oxygen Delivery Mechanical Ventilation Fraction of Inspired Oxygen 50 07/12/24 00:00 07/12/24 00:00 07/12/24 00:00 Temperature 37.2 C Pulse Rate 77 Respiratory Rate 18 Blood Pressure 118/57 L Pulse Oximetry 93 93 Oxygen Delivery Mechanical Ventilation Fraction of Inspired Oxygen 50 50 07/12/24 00:00 07/12/24 00:00 07/12/24 00:00 Temperature Pulse Rate 79 79 79 Respiratory Rate 16 Blood Pressure 114/49 L Pulse Oximetry Oxygen Delivery Fraction of Inspired Oxygen 07/12/24 00:00 07/12/24 01:48 07/12/24 01:49 Temperature 37.3 C Pulse Rate 79 76 76 Respiratory Rate 16 16 Blood Pressure 103/47 L Pulse Oximetry 94 Oxygen Delivery Fraction of Inspired Oxygen 07/12/24 02:00 07/12/24 02:00 07/12/24 02:00 Temperature Pulse Rate 75 75 75 Respiratory Rate 16 16 Blood Pressure 107/58 L Pulse Oximetry Oxygen Delivery Fraction of Inspired Oxygen 07/12/24 02:41 07/12/24 02:41 07/12/24 03:26 Temperature Pulse Rate 75 75 76 Respiratory Rate 17 16 Blood Pressure Pulse Oximetry 94 Oxygen Delivery Mechanical Ventilation Fraction of Inspired Oxygen 50 07/12/24 03:27 07/12/24 04:00 07/12/24 04:00 Temperature Pulse Rate 76 Respiratory Rate 16 Blood Pressure Pulse Oximetry 96 Oxygen Delivery Mechanical Ventilation Fraction of Inspired Oxygen 50 50 07/12/24 04:00 07/12/24 04:00 07/12/24 04:00 Temperature 37.2 C Pulse Rate 78 78 78 Respiratory Rate 16 16 Blood Pressure 125/44 L Pulse Oximetry 94 Oxygen Delivery Fraction of Inspired Oxygen 07/12/24 04:00 07/12/24 04:00 07/12/24 05:48 Temperature Pulse Rate 78 78 79 Respiratory Rate 16 Blood Pressure 125/44 L Pulse Oximetry 96 Oxygen Delivery Mechanical Ventilation Fraction of Inspired Oxygen 50 07/12/24 06:00 07/12/24 06:00 07/12/24 06:00 Temperature 36.7 C Pulse Rate 74 76 76 Respiratory Rate 16 16 Blood Pressure 123/59 L Pulse Oximetry 94 Oxygen Delivery Fraction of Inspired Oxygen 07/12/24 06:00 07/12/24 06:00 07/12/24 08:00 Temperature Pulse Rate 76 76 74 Respiratory Rate 16 Blood Pressure 123/59 L 138/63 Pulse Oximetry Oxygen Delivery Fraction of Inspired Oxygen 07/12/24 08:00 07/12/24 08:00 07/12/24 08:00 Temperature 36.8 C Pulse Rate 74 74 73 Respiratory Rate 16 16 16 Blood Pressure 131/72 Pulse Oximetry 95 Oxygen Delivery Fraction of Inspired Oxygen 07/12/24 08:00 07/12/24 08:00 07/12/24 09:24 Temperature Pulse Rate 75 Respiratory Rate Blood Pressure Pulse Oximetry 95 Oxygen Delivery Mechanical Ventilation Fraction of Inspired Oxygen 50 50 07/12/24 09:33 07/12/24 09:35 07/12/24 09:44 Temperature Pulse Rate 74 74 74 Respiratory Rate 16 16 Blood Pressure Pulse Oximetry 95 Oxygen Delivery Mechanical Ventilation Fraction of Inspired Oxygen 50 Intake/Output Intake/Output: Intake & Output 07/09/24 07/10/24 07/11/24 07/12/24 23:59 23:59 23:59 23:59 Intake Total 2401.4 1880.9 2474.7 850.5 Output Total 465 017 3929 475 Balance 1851.4 1430.9 1174.7 375.5 Meds/Results Medications: Active Medications Generic Name Dose Route Start Last Admin Trade Name Freq PRN Reason Stop Dose Admin Albuterol/Ipratropium 3 ml 06/29/24 02:00 07/12/24 09:31 Ipratropium 0.5 Mg/Albuterol Sulfate 2.5 Mg Ampul.Neb 3 Ml INHALATION 3 ml Q6HRT BARBARA Administration Amiodarone HCl 400 mg 07/09/24 12:20 07/12/24 09:24 Amiodarone Hcl 200 Mg Tablet PO 400 mg Q12HR BARBARA Administration Aspirin 81 mg 07/01/24 08:00 07/12/24 09:24 Aspirin 81 Mg Chewable Tablet PO 81 mg DAILY@0800 BARBARA Administration Atorvastatin Calcium 40 mg 06/29/24 09:00 07/12/24 09:24 Atorvastatin 40 Mg Tablet PO 40 mg DAILY BARBARA Administration Cyanocobalamin 1,000 mcg 07/07/24 12:00 07/07/24 13:35 Cyanocobalamin Inj 1,000 Mcg/Ml Vial IM 07/14/24 09:01 1,000 mcg WEEKLY BARBARA Administration Dextrose 12.5 gm 06/29/24 08:08 Dextrose 50% 25 Gm/50 Ml Syringe IV PUSH PRN PRN Hypoglycemia Protocol Glucagon 1 mg 06/29/24 08:08 Glucagon For Inj 1 Mg Vial IM PRN PRN Hypoglycemia Protocol Glucose 15 gm 06/29/24 08:08 Glucose Oral Gel 15 Gm Of Glucse In 37.5 Gm Tube PO PRN PRN Hypoglycemia Protocol Heparin Sodium (Porcine) 5,000 units 07/07/24 11:24 Heparin Sodium 5,000 Units/Ml Vial IV PUSH PRN PRN aPTT less than 55 seconds Heparin Sodium (Porcine) 2,500 units 07/07/24 11:24 07/09/24 07:21 Heparin Sodium 5,000 Units/Ml Vial IV PUSH 2,500 units PRN PRN Administration aPTT 55 - 70 seconds Hydralazine HCl 10 mg 07/06/24 16:42 07/06/24 17:03 Hydralazine Hcl 20 Mg/Ml Vial IV PUSH 10 mg Q4H PRN Administration Blood Pressure - High Dextrose 1,000 mls @ 100 mls/hr 06/29/24 08:08 Dextrose 5% 1,000 Ml IVPB PRN PRN Hypoglycemia Protocol Fentanyl Citrate 2,500 mcg in 250 mls @ 7.5 mls/hr 07/06/24 17:55 07/12/24 08:00 Fentanyl 2,500 Mcg/Ns 250 Ml IV CONT 75 mcg/hr .[id number] BARBARA 7.5 mls/hr Titration Protocol 75 MCG/HR Midazolam HCl 100 mg in 100 mls @ 2 mls/hr 07/06/24 17:55 07/12/24 08:00 Versed 100 Mg/Ns 100 Ml IV CONT 2 mg/hr .Q50H BARBARA 2 mls/hr Titration Protocol 2 MG/HR Heparin Sodium/Dextrose 25,000 units in 250 mls @ 0 mls/hr 07/07/24 11:25 07/10/24 08:52 Heparin Sodium/D5w 100 Units/Ml IV CONT 0 units/hr .Q0M BARBARA 0 mls/hr Titration Protocol Cefepime HCl 1 gm in 50 mls @ 100 mls/hr 07/08/24 11:00 07/12/24 09:24 Maxipime 1 Gm/Ns 50 Ml IVPB 100 mls/hr Q12HR BARBARA Administration Norepinephrine Bitartrate 8 mg in 250 mls @ 0 mls/hr 07/10/24 19:50 07/12/24 08:00 Levophed 8 Mg/D5w 250 Ml IV CONT 0 mcg/min .Q0M BARBARA 0 mls/hr Titration Protocol 0 MCG/MIN Vancomycin HCl 1,000 mg in 250 mls @ 250 mls/hr 07/12/24 09:00 Vancomycin 1,000 Mg/Ns 250 Ml IVPB 07/12/24 09:59 ONCE ONE Insulin Aspart 3 - 6 units 06/29/24 12:00 07/12/24 06:08 Insulin Aspart (*Bkc) 100 Units/Ml SUB-Q Not Given Q6HR BARBARA Protocol Insulin Glargine 8 units 07/06/24 09:00 07/12/24 09:35 Insulin Glargine (*Bkc) 100 Units/Ml SUB-Q 8 units DAILY BARBARA Administration Levothyroxine Sodium 50 mcg 06/30/24 06:30 07/12/24 06:15 Levothyroxine Sodium 50 Mcg Tablet FEED TUBE 50 mcg DAILY@0630 BARBARA Administration Multi-Ingred Cream/Lotion/Oil/Oint 1 applic 06/29/24 09:00 07/12/24 09:25 Mineral Oil/White Petrolatum Ointment EACH EYE 1 applic Q12HR BARBARA Administration Pantoprazole Sodium 40 mg 07/06/24 21:00 07/12/24 09:24 Pantoprazole Sodium Iv 40 Mg Vial IV PUSH 40 mg Q12HR BARBARA Administration Sodium Chloride 10 ml 06/29/24 14:00 07/12/24 06:16 Central Line Flush IV PUSH 10 ml Q8HR BARBARA Administration Sodium Chloride 10 ml 06/29/24 12:40 Central Line Flush IV PUSH PRN PRN with TPN bag changes Sodium Chloride 20 ml 06/29/24 12:40 Central Line Flush IV PUSH PRN PRN after blood draws Vancomycin HCl 1 each 07/08/24 10:48 Vancomycin For Acute Kidney Injury IVPB PRN PRN Vancomycin Protocol Radiology Results: ITS Impressions Abdomen X-Ray 06/28/24 20:03 IMPRESSION: Nasogastric tube in good position and ready for immediate use. Abdomen Ultrasound 07/03/24 14:12 IMPRESSION: 1. Normal right upper quadrant ultrasound status post cholecystectomy. Renal Ultrasound 07/06/24 08:30 IMPRESSION: 1. No hydronephrosis in either kidney. Head CT 07/08/24 10:08 IMPRESSION: 1. No acute intracranial process. 2. 8 mm calcified extra-axial mass overlying the left parietal lobe most consistent with a meningioma. Chest X-Ray 07/12/24 06:26 IMPRESSION: Small left-sided pleural effusion. Supportive lines and tubes in good position. Labs Labs: Laboratory Results - last 24 hr 07/11/24 07/11/24 07/11/24 11:44 11:52 18:03 WBC RBC Hgb Hct MCV MCH MCHC RDW Plt Count MPV Immature Gran % (Auto) Neut % (Auto) Lymph % (Auto) [place] % (Auto) Eos % (Auto) Baso % (Auto) Lymph # (Auto) [place] # (Auto) Eos # (Auto) Baso # (Auto) Abs Immat Gran (auto) Absolute Neuts (auto) Absolute Nucleated RBC Nucleated RBC % Platelet Estimate Hypochromasia Anisocytosis Ovalocytes Schistocytes Puncture Site ABG pH ABG pCO2 ABG pO2 ABG PO2/FiO2 Ratio ABG HCO3 ABG O2 Saturation ABG O2 Content ABG Base Excess A-a Gradient Oxyhemoglobin Carboxyhemoglobin Methemoglobin Reduced Hemoglobin Total Hemoglobin O2 Delivery Device O2 Liters/Min Minute Volume Vent Rate Vent Mode FiO2 Tidal Volume PEEP Peak Inspir Pressure Pressure Support Sodium Potassium Chloride Carbon Dioxide Anion Gap BUN Creatinine Estim Creat Clear Calc Estimated GFR Glucose POC Capillary Glucose 174 H 137 H Lactic Acid Calcium Phosphorus Magnesium Total Bilirubin AST ALT Alkaline Phosphatase Total Protein Albumin Urine Color Yellow Urine Appearance Turbid H Urine pH 5.0 Ur Specific [place] 1.015 Urine Protein 2+ H Urine Glucose (UA) Negative Urine Ketones Negative Ur Blood (Man) 3+ H Urine Nitrate Negative Urine Bilirubin Negative Urine Urobilinogen 0.2 Ur Leukocyte Esterase 3+ H Add Ur Microanalysis Reviewed Urine RBC 21-50 H Urine WBC >100 H Ur Squamous Epith Cells Many H Urine Bacteria None seen Urine Casts >20 Granular Casts Present Vancomycin Trough 07/11/24 07/12/24 07/12/24 23:54 04:47 05:40 WBC 23.7 H RBC 2.51 L Hgb 7.5 L Hct 23.0 L MCV 91.6 MCH 29.9 MCHC 32.6 RDW 17.4 H Plt Count 249 MPV 12.5 H Immature Gran % (Auto) 0.8 H Neut % (Auto) 85.8 H Lymph % (Auto) 4.2 L [place] % (Auto) 7.9 Eos % (Auto) 1.1 Baso % (Auto) 0.2 Lymph # (Auto) 0.99 [place] # (Auto) 1.9 H Eos # (Auto) 0.3 Baso # (Auto) 0.0 Abs Immat Gran (auto) 0.19 H Absolute Neuts (auto) 20.3 H Absolute Nucleated RBC 0.040 H Nucleated RBC % 0.2 Platelet Estimate Adequate Hypochromasia 1+ Anisocytosis 1+ Ovalocytes 1+ Schistocytes None seen Puncture Site Right radial ABG pH 7.361 ABG pCO2 45.8 H ABG pO2 89.4 ABG PO2/FiO2 Ratio 1.79 ABG HCO3 25.4 ABG O2 Saturation 96.5 ABG O2 Content 12.5 L ABG Base Excess -0.2 A-a Gradient 215.6 Oxyhemoglobin 95.5 Carboxyhemoglobin 0.5 Methemoglobin 0.3 Reduced Hemoglobin 3.7 Total Hemoglobin 9.2 L O2 Delivery Device Ventilator O2 Liters/Min Not Reportable Minute Volume Not Reportable Vent Rate 16 Vent Mode Cmv FiO2 50 Tidal Volume 480 PEEP 8 Peak Inspir Pressure Not Reportable Pressure Support Not Reportable Sodium 143 Potassium 4.2 Chloride 106 Carbon Dioxide 27 Anion Gap 10 BUN 118 H D Creatinine 2.62 H Estim Creat Clear Calc 16 Estimated GFR 21 L Glucose 138 H POC Capillary Glucose 153 H Lactic Acid 0.8 Calcium 9.1 Phosphorus 5.6 H Magnesium 2.5 H Total Bilirubin 0.4 AST 30 ALT 42 H Alkaline Phosphatase 113 Total Protein 6.0 L Albumin 3.0 L Urine Color Urine Appearance Urine pH Ur Specific [place] Urine Protein Urine Glucose (UA) Urine Ketones Ur Blood (Man) Urine Nitrate Urine Bilirubin Urine Urobilinogen Ur Leukocyte Esterase Add Ur Microanalysis Urine RBC Urine WBC Ur Squamous Epith Cells Urine Bacteria Urine Casts Granular Casts Vancomycin Trough 16.5 Quality VTE Prophylaxis VTE prophylaxis: pharmacologic ordered
--- NOTE | 2024-07-12 09:57 | P.PNNP_ITS ---
Progress Note: A&P Assessment and Plan (1) RASHEL (acute kidney injury): Code(s): N17.9 - Acute kidney failure, unspecified Status: Acute Assessment and Plan: * acute kidney injury * creatinine has been up and down between 1.41.7 but today is higher at 2.19. * evaluation to date noted: * normal renal ultrasound * urine electrolytes prerenal with fractional excretion of urea at 17% * rare urine eosinophils * CPK mildly elevated - follow trend * moderate proteinuria * will check a urinalysis * etiology not clear but suspicion falls on: * possibly due to relative hypotension - noted systolic BP in the high 80s (on 07/04) * intravascular volume depletion(?) * Septic syndrome * other(?) * blood pressure is a little better. Down to 1 chante per minute of norepinephrine * urine output 1300 yesterday. * Oxygenation a bit up and down. Currently on 50% FiO2 and 8 of PEEP. * BUN Is better down to 118 but the creatinine is up to 2.62. * The continually climbing creatinine might be due to her hemodynamic instability. Consider toxicity from vancomycin however since she is nonoliguric. I talked with Dr. Toney who is going to switch to linezolid (2) Hyperkalemia: Code(s): E87.5 - Hyperkalemia Status: Acute Assessment and Plan: * resolved (3) Acute on chronic respiratory failure with hypoxia and hypercapnia: Code(s): J96.21 - Acute and chronic respiratory failure with hypoxia; J96.22 - Acute and chronic respiratory failure with hypercapnia Status: Acute Assessment and Plan: * now extubated and doing better. (4) Acute exacerbation of chronic obstructive pulmonary disease: Code(s): J44.1 - Chronic obstructive pulmonary disease with (acute) exacerbation Status: Acute Assessment and Plan: * presumed etiology of #3 * continue current therapy (5) Elevated troponin: Code(s): R77.8 - Other specified abnormalities of plasma proteins Status: Acute Assessment and Plan: * felt to be demand ischemia from acute respiratory failure * EKG noted * Cardiology recommendations noted * recent Echo noted (on 06/29): * left ventricular systolic function appears preserved * right ventricle is normal in size and systolic function. * small amount of pericardial effusion with no evidence of cardiac tamponade * ischemic evaluation when more stable (6) Atrial fibrillation with RVR: Code(s): I48.91 - Unspecified atrial fibrillation Status: Acute Assessment and Plan: * SVT noted on evening of 07.06 * s/p IV andenosine with underlying rhythm noted to be AFib RVR * converted to normal sinus rhythm with IV metoprolol x 1 * on 07/07, with weaning of sedation, patient went to AFib RVR again * now on amiodarone for rate control * on heparin drip * heart rate 74 today * Cardiology following (7) Anemia: Code(s): D64.9 - Anemia, unspecified Status: Acute Assessment and Plan: * due to RASHEL and acute illness * however, hemooccult positive * anemia studies without iron deficiency * normal folate * low B12 noted -- IM B12 given * on PPI * GI recommendations noted * hb still in the sevens (8) Elevated LFTs: Code(s): R79.89 - Other specified abnormal findings of blood chemistry Status: Acute Assessment and Plan: * noted on testing since 07/03 * RUQ u/s was normal - status post cholecystectomy * hepatitis panel normal * improving. AST is normal and ALT is getting there. Subjective Date/time seen: 07/12/24 09:57 Interval history: patient is sedated and on the ventilator. Exam 2 Narrative: General: elderly but WD/WN female intubated/sedated on mechanical ventilation Heart: normal S1 and S2; no rub or gallop Lungs: coarse breath sounds bilaterally Abdomen: bowel sounds positive but diminished. Soft and nontender. Extremities: no edema Or cyanosis Skin: No rash Objective Data Vital Signs Vital Signs: Vital Signs - 24 hr 07/11/24 10:07/11/24 10:07/11/24 10:00 Temperature 98 F Pulse Rate 76 76 76 Respiratory Rate 15 Blood Pressure 121/43 L 121/43 L Pulse Oximetry 91 Oxygen Delivery Fraction of Inspired Oxygen 07/11/24 10:07/11/24 10:07/11/24 11:08 Temperature Pulse Rate 76 76 74 Respiratory Rate 16 16 Blood Pressure Pulse Oximetry 92 Oxygen Delivery Mechanical Ventilation Fraction of Inspired Oxygen 40 07/11/24 12:00 07/11/24 12:00 07/11/24 12:00 Temperature Pulse Rate 75 75 74 Respiratory Rate 16 16 Blood Pressure 104/48 L Pulse Oximetry Oxygen Delivery Fraction of Inspired Oxygen 07/11/24 12:00 07/11/24 12:00 07/11/24 12:00 Temperature 98.5 F Pulse Rate 74 76 Respiratory Rate 16 Blood Pressure 127/47 L Pulse Oximetry 93 93 Oxygen Delivery Mechanical Ventilation Fraction of Inspired Oxygen 40 07/11/24 12:00 07/11/24 13:56 07/11/24 13:59 Temperature Pulse Rate 78 77 Respiratory Rate 16 Blood Pressure Pulse Oximetry 93 Oxygen Delivery Mechanical Ventilation Fraction of Inspired Oxygen 40 40 07/11/24 14:00 07/11/24 14:00 07/11/24 14:00 Temperature 98.7 F Pulse Rate 77 78 78 Respiratory Rate 16 16 Blood Pressure 126/53 L Pulse Oximetry 90 Oxygen Delivery Fraction of Inspired Oxygen 07/11/24 14:00 07/11/24 14:00 07/11/24 14:01 Temperature Pulse Rate 78 78 77 Respiratory Rate 16 17 Blood Pressure 126/53 L Pulse Oximetry Oxygen Delivery Fraction of Inspired Oxygen 07/11/24 15:14 07/11/24 15:32 07/11/24 15:32 Temperature Pulse Rate 80 81 Respiratory Rate 16 16 Blood Pressure Pulse Oximetry 87 L Oxygen Delivery Fraction of Inspired Oxygen 50 07/11/24 16:00 07/11/24 16:00 07/11/24 16:00 Temperature Pulse Rate 80 Respiratory Rate Blood Pressure Pulse Oximetry 93 Oxygen Delivery Mechanical Ventilation Fraction of Inspired Oxygen 50 50 07/11/24 16:00 07/11/24 16:00 07/11/24 16:00 Temperature 98.9 F Pulse Rate 8 L 80 80 Respiratory Rate 18 16 Blood Pressure 117/50 L 117/50 L Pulse Oximetry 93 Oxygen Delivery Fraction of Inspired Oxygen 07/11/24 16:00 07/11/24 17:14 07/11/24 18:00 Temperature Pulse Rate 80 78 78 Respiratory Rate 16 Blood Pressure Pulse Oximetry 93 Oxygen Delivery Mechanical Ventilation Fraction of Inspired Oxygen 50 07/11/24 18:00 07/11/24 18:00 07/11/24 18:00 Temperature 98.9 F Pulse Rate 78 77 77 Respiratory Rate 16 16 Blood Pressure 106/84 124/53 L Pulse Oximetry 93 Oxygen Delivery Fraction of Inspired Oxygen 07/11/24 18:00 07/11/24 20:00 07/11/24 20:00 Temperature Pulse Rate 77 Respiratory Rate 16 Blood Pressure Pulse Oximetry 95 Oxygen Delivery Mechanical Ventilation Fraction of Inspired Oxygen 50 50 07/11/24 20:00 07/11/24 20:00 07/11/24 20:00 Temperature 99.0 F Pulse Rate 77 77 77 Respiratory Rate 18 18 Blood Pressure 118/57 L 118/57 L Pulse Oximetry 93 Oxygen Delivery Fraction of Inspired Oxygen 07/11/24 20:00 07/11/24 20:00 07/11/24 20:05 Temperature Pulse Rate 77 77 77 Respiratory Rate 18 Blood Pressure Pulse Oximetry Oxygen Delivery Fraction of Inspired Oxygen 07/11/24 20:12 07/11/24 20:12 07/11/24 20:17 Temperature Pulse Rate 77 77 77 Respiratory Rate 16 19 Blood Pressure Pulse Oximetry 95 Oxygen Delivery Mechanical Ventilation Fraction of Inspired Oxygen 50 07/11/24 22:00 07/11/24 22:00 07/11/24 22:00 Temperature 99.0 F Pulse Rate 79 79 79 Respiratory Rate 14 14 Blood Pressure 121/53 L 121/53 L Pulse Oximetry 93 Oxygen Delivery Fraction of Inspired Oxygen 07/11/24 22:00 07/11/24 22:00 07/11/24 23:30 Temperature Pulse Rate 79 79 78 Respiratory Rate 14 Blood Pressure Pulse Oximetry 94 Oxygen Delivery Mechanical Ventilation Fraction of Inspired Oxygen 50 07/12/24 00:00 07/12/24 00:00 07/12/24 00:00 Temperature 99.0 F Pulse Rate 77 Respiratory Rate 18 Blood Pressure 118/57 L Pulse Oximetry 93 93 Oxygen Delivery Mechanical Ventilation Fraction of Inspired Oxygen 50 50 07/12/24 00:00 07/12/24 00:00 07/12/24 00:00 Temperature Pulse Rate 79 79 79 Respiratory Rate 16 Blood Pressure 114/49 L Pulse Oximetry Oxygen Delivery Fraction of Inspired Oxygen 07/12/24 00:00 07/12/24 01:48 07/12/24 01:49 Temperature 99.2 F Pulse Rate 79 76 76 Respiratory Rate 16 16 Blood Pressure 103/47 L Pulse Oximetry 94 Oxygen Delivery Fraction of Inspired Oxygen 07/12/24 02:00 07/12/24 02:00 07/12/24 02:00 Temperature Pulse Rate 75 75 75 Respiratory Rate 16 16 Blood Pressure 107/58 L Pulse Oximetry Oxygen Delivery Fraction of Inspired Oxygen 07/12/24 02:41 07/12/24 02:41 07/12/24 03:26 Temperature Pulse Rate 75 75 76 Respiratory Rate 17 16 Blood Pressure Pulse Oximetry 94 Oxygen Delivery Mechanical Ventilation Fraction of Inspired Oxygen 50 07/12/24 03:27 07/12/24 04:00 07/12/24 04:00 Temperature Pulse Rate 76 Respiratory Rate 16 Blood Pressure Pulse Oximetry 96 Oxygen Delivery Mechanical Ventilation Fraction of Inspired Oxygen 50 50 07/12/24 04:00 07/12/24 04:00 07/12/24 04:00 Temperature 98.9 F Pulse Rate 78 78 78 Respiratory Rate 16 16 Blood Pressure 125/44 L Pulse Oximetry 94 Oxygen Delivery Fraction of Inspired Oxygen 07/12/24 04:00 07/12/24 04:00 07/12/24 05:48 Temperature Pulse Rate 78 78 79 Respiratory Rate 16 Blood Pressure 125/44 L Pulse Oximetry 96 Oxygen Delivery Mechanical Ventilation Fraction of Inspired Oxygen 50 07/12/24 06:00 07/12/24 06:00 07/12/24 06:00 Temperature 98.1 F Pulse Rate 74 76 76 Respiratory Rate 16 16 Blood Pressure 123/59 L Pulse Oximetry 94 Oxygen Delivery Fraction of Inspired Oxygen 07/12/24 06:00 07/12/24 06:00 07/12/24 08:00 Temperature Pulse Rate 76 76 74 Respiratory Rate 16 Blood Pressure 123/59 L 138/63 Pulse Oximetry Oxygen Delivery Fraction of Inspired Oxygen 07/12/24 08:00 07/12/24 08:00 07/12/24 08:00 Temperature 98.3 F Pulse Rate 74 74 73 Respiratory Rate 16 16 16 Blood Pressure 131/72 Pulse Oximetry 95 Oxygen Delivery Fraction of Inspired Oxygen 07/12/24 08:00 07/12/24 08:00 07/12/24 09:24 Temperature Pulse Rate 75 Respiratory Rate Blood Pressure Pulse Oximetry 95 Oxygen Delivery Mechanical Ventilation Fraction of Inspired Oxygen 50 50 07/12/24 09:33 07/12/24 09:35 07/12/24 09:44 Temperature Pulse Rate 74 74 74 Respiratory Rate 16 16 Blood Pressure Pulse Oximetry 95 Oxygen Delivery Mechanical Ventilation Fraction of Inspired Oxygen 50 Intake/Output Intake/Output: Intake & Output 07/09/24 07/10/24 07/11/24 07/12/24 23:59 23:59 23:59 23:59 Intake Total 2401.4 1880.9 2474.7 850.5 Output Total 830 171 5261 475 Balance 1851.4 1430.9 1174.7 375.5 Meds/Results Medications: Active Medications Generic Name Dose Route Start Last Admin Trade Name Freq PRN Reason Stop Dose Admin Albuterol/Ipratropium 3 ml 06/29/24 02:00 07/12/24 09:31 Ipratropium 0.5 Mg/Albuterol Sulfate 2.5 Mg Ampul.Neb 3 Ml INHALATION 3 ml Q6HRT BARBARA Administration Amiodarone HCl 400 mg 07/09/24 12:20 07/12/24 09:24 Amiodarone Hcl 200 Mg Tablet PO 400 mg Q12HR BARBARA Administration Aspirin 81 mg 07/01/24 08:00 07/12/24 09:24 Aspirin 81 Mg Chewable Tablet PO 81 mg DAILY@0800 BARBARA Administration Atorvastatin Calcium 40 mg 06/29/24 09:00 07/12/24 09:24 Atorvastatin 40 Mg Tablet PO 40 mg DAILY BARBARA Administration Cyanocobalamin 1,000 mcg 07/07/24 12:00 07/07/24 13:35 Cyanocobalamin Inj 1,000 Mcg/Ml Vial IM 07/14/24 09:01 1,000 mcg WEEKLY BARBARA Administration Dextrose 12.5 gm 06/29/24 08:08 Dextrose 50% 25 Gm/50 Ml Syringe IV PUSH PRN PRN Hypoglycemia Protocol Glucagon 1 mg 06/29/24 08:08 Glucagon For Inj 1 Mg Vial IM PRN PRN Hypoglycemia Protocol Glucose 15 gm 06/29/24 08:08 Glucose Oral Gel 15 Gm Of Glucse In 37.5 Gm Tube PO PRN PRN Hypoglycemia Protocol Heparin Sodium (Porcine) 5,000 units 07/07/24 11:24 Heparin Sodium 5,000 Units/Ml Vial IV PUSH PRN PRN aPTT less than 55 seconds Heparin Sodium (Porcine) 2,500 units 07/07/24 11:24 07/09/24 07:21 Heparin Sodium 5,000 Units/Ml Vial IV PUSH 2,500 units PRN PRN Administration aPTT 55 - 70 seconds Hydralazine HCl 10 mg 07/06/24 16:42 07/06/24 17:03 Hydralazine Hcl 20 Mg/Ml Vial IV PUSH 10 mg Q4H PRN Administration Blood Pressure - High Dextrose 1,000 mls @ 100 mls/hr 06/29/24 08:08 Dextrose 5% 1,000 Ml IVPB PRN PRN Hypoglycemia Protocol Fentanyl Citrate 2,500 mcg in 250 mls @ 7.5 mls/hr 07/06/24 17:55 07/12/24 08:00 Fentanyl 2,500 Mcg/Ns 250 Ml IV CONT 75 mcg/hr .[id number] BARBARA 7.5 mls/hr Titration Protocol 75 MCG/HR Midazolam HCl 100 mg in 100 mls @ 2 mls/hr 07/06/24 17:55 07/12/24 08:00 Versed 100 Mg/Ns 100 Ml IV CONT 2 mg/hr .Q50H BARBAR[place] 2 mls/hr Titration Protocol 2 MG/HR Heparin Sodium/Dextrose 25,000 units in 250 mls @ 0 mls/hr 07/07/24 11:25 07/10/24 08:52 Heparin Sodium/D5w 100 Units/Ml IV CONT 0 units/hr .Q0M BARBARA 0 mls/hr Titration Protocol Cefepime HCl 1 gm in 50 mls @ 100 mls/hr 07/08/24 11:00 07/12/24 09:24 Maxipime 1 Gm/Ns 50 Ml IVPB 100 mls/hr Q12HR BARBARA Administration Norepinephrine Bitartrate 8 mg in 250 mls @ 0 mls/hr 07/10/24 19:50 07/12/24 08:00 Levophed 8 Mg/D5w 250 Ml IV CONT 0 mcg/min .Q0M [place]BAR[place] 0 mls/hr Titration Protocol 0 MCG/MIN Vancomycin HCl 1,000 mg in 250 mls @ 250 mls/hr 07/12/24 09:00 Vancomycin 1,000 Mg/Ns 250 Ml IVPB 07/12/24 09:59 ONCE ONE Insulin Aspart 3 - 6 units 06/29/24 12:00 07/12/24 06:08 Insulin Aspart (*Bkc) 100 Units/Ml SUB-Q Not Given Q6HR [facility] Protocol Insulin Glargine 8 units 07/06/24 09:00 07/12/24 09:35 Insulin Glargine (*Bkc) 100 Units/Ml SUB-Q 8 units DAILY BARBARA Administration Levothyroxine Sodium 50 mcg 06/30/24 06:30 07/12/24 06:15 Levothyroxine Sodium 50 Mcg Tablet FEED TUBE 50 mcg DAILY@0630 BARBARA Administration Multi-Ingred Cream/Lotion/Oil/Oint 1 /03/25 09:00 07/12/24 09:25 Mineral Oil/White Petrolatum Ointment EACH EYE 1 applic Q12HR BARBARA Administration Pantoprazole Sodium 40 mg 07/06/24 21:00 07/12/24 09:24 Pantoprazole Sodium Iv 40 Mg Vial IV PUSH 40 mg Q12HR BARBARA Administration Sodium Chloride 10 ml 06/29/24 14:00 07/12/24 06:16 Central Line Flush IV PUSH 10 ml Q8HR BARBARA Administration Sodium Chloride 10 ml 06/29/24 12:40 Central Line Flush IV PUSH PRN PRN with TPN bag changes Sodium Chloride 20 ml 06/29/24 12:40 Central Line Flush IV PUSH PRN PRN after blood draws Vancomycin HCl 1 each 07/08/24 10:48 Vancomycin For Acute Kidney Injury IVPB PRN PRN Vancomycin Protocol Radiology Results: ITS Impressions Abdomen X-Ray 06/28/24 20:03 IMPRESSION: Nasogastric tube in good position and ready for immediate use. Abdomen Ultrasound 07/03/24 14:12 IMPRESSION: 1. Normal right upper quadrant ultrasound status post cholecystectomy. Renal Ultrasound 07/06/24 08:30 IMPRESSION: 1. No hydronephrosis in either kidney. Head CT 07/08/24 10:08 IMPRESSION: 1. No acute intracranial process. 2. 8 mm calcified extra-axial mass overlying the left parietal lobe most consistent with a meningioma. Chest X-Ray 07/12/24 06:26 IMPRESSION: Small left-sided pleural effusion. Supportive lines and tubes in good position. Labs Labs: Laboratory Results - last 24 hr 07/11/24 07/11/24 07/11/24 11:44 11:52 18:03 WBC RBC Hgb Hct MCV MCH MCHC RDW Plt Count MPV Immature Gran % (Auto) Neut % (Auto) Lymph % (Auto) [place] % (Auto) Eos % (Auto) Baso % (Auto) Lymph # (Auto) [place] # (Auto) Eos # (Auto) Baso # (Auto) Abs Immat Gran (auto) Absolute Neuts (auto) Absolute Nucleated RBC Nucleated RBC % Platelet Estimate Hypochromasia Anisocytosis Ovalocytes Schistocytes Puncture Site ABG pH ABG pCO2 ABG pO2 ABG PO2/FiO2 Ratio ABG HCO3 ABG O2 Saturation ABG O2 Content ABG Base Excess A-a Gradient Oxyhemoglobin Carboxyhemoglobin Methemoglobin Reduced Hemoglobin Total Hemoglobin O2 Delivery Device O2 Liters/Min Minute Volume Vent Rate Vent Mode FiO2 Tidal Volume PEEP Peak Inspir Pressure Pressure Support Sodium Potassium Chloride Carbon Dioxide Anion Gap BUN Creatinine Estim Creat Clear Calc Estimated GFR Glucose POC Capillary Glucose 174 H 137 H Lactic Acid Calcium Phosphorus Magnesium Total Bilirubin AST ALT Alkaline Phosphatase Total Protein Albumin Urine Color Yellow Urine Appearance Turbid H Urine pH 5.0 Ur Specific [place] 1.015 Urine Protein 2+ H Urine Glucose (UA) Negative Urine Ketones Negative Ur Blood (Man) 3+ H Urine Nitrate Negative Urine Bilirubin Negative Urine Urobilinogen 0.2 Ur Leukocyte Esterase 3+ H Add Ur Microanalysis Reviewed Urine RBC 21-50 H Urine WBC >100 H Ur Squamous Epith Cells Many H Urine Bacteria None seen Urine Casts >20 Granular Casts Present Vancomycin Trough 07/11/24 07/12/24 07/12/24 23:54 04:47 05:40 WBC 23.7 H RBC 2.51 L Hgb 7.5 L Hct 23.0 L MCV 91.6 MCH 29.9 MCHC 32.6 RDW 17.4 H Plt Count 249 MPV 12.5 H Immature Gran % (Auto) 0.8 H Neut % (Auto) 85.8 H Lymph % (Auto) 4.2 L [place] % (Auto) 7.9 Eos % (Auto) 1.1 Baso % (Auto) 0.2 Lymph # (Auto) 0.99 [place] # (Auto) 1.9 H Eos # (Auto) 0.3 Baso # (Auto) 0.0 Abs Immat Gran (auto) 0.19 H Absolute Neuts (auto) 20.3 H Absolute Nucleated RBC 0.040 H Nucleated RBC % 0.2 Platelet Estimate Adequate Hypochromasia 1+ Anisocytosis 1+ Ovalocytes 1+ Schistocytes None seen Puncture Site Right radial ABG pH 7.361 ABG pCO2 45.8 H ABG pO2 89.4 ABG PO2/FiO2 Ratio 1.79 ABG HCO3 25.4 ABG O2 Saturation 96.5 ABG O2 Content 12.5 L ABG Base Excess -0.2 A-a Gradient 215.6 Oxyhemoglobin 95.5 Carboxyhemoglobin 0.5 Methemoglobin 0.3 Reduced Hemoglobin 3.7 Total Hemoglobin 9.2 L O2 Delivery Device Ventilator O2 Liters/Min Not Reportable Minute Volume Not Reportable Vent Rate 16 Vent Mode Cmv FiO2 50 Tidal Volume 480 PEEP 8 Peak Inspir Pressure Not Reportable Pressure Support Not Reportable Sodium 143 Potassium 4.2 Chloride 106 Carbon Dioxide 27 Anion Gap 10 BUN 118 H D Creatinine 2.62 H Estim Creat Clear Calc 16 Estimated GFR 21 L Glucose 138 H POC Capillary Glucose 153 H Lactic Acid 0.8 Calcium 9.1 Phosphorus 5.6 H Magnesium 2.5 H Total Bilirubin 0.4 AST 30 ALT 42 H Alkaline Phosphatase 113 Total Protein 6.0 L Albumin 3.0 L Urine Color Urine Appearance Urine pH Ur Specific [place] Urine Protein Urine Glucose (UA) Urine Ketones Ur Blood (Man) Urine Nitrate Urine Bilirubin Urine Urobilinogen Ur Leukocyte Esterase Add Ur Microanalysis Urine RBC Urine WBC Ur Squamous Epith Cells Urine Bacteria Urine Casts Granular Casts Vancomycin Trough 16.5
--- NOTE | 2024-07-12 09:58 | P.PNINT_ITS ---
Progress Note: A&P Assessment and Plan (1) Atrial fibrillation with RVR: Code(s): I48.91 - Unspecified atrial fibrillation Status: Acute Assessment and Plan: 07/06 evening: Patient went into SVT, status post tenderness and 6 mg and 12 mg, underlying rhythm was AFib RVR, converted to normal sinus rhythm with IV metoprolol x1 and increasing her sedation. Patient remained in sinus rhythm also the morning of 07/07/2024. 07/07: Started weaning her sedation again today, patient went to AFib RVR, -hold heparin infusion due to drop in hemoglobin coffee-ground emesis -07/06; TSH level within normal limits, troponin level with no change since admission -EKG showed AFib RVR, discussed with cardiology, 07/08: In the evening patient went into AFib RVR again, requiring an amiodarone bolus, increased amiodarone infusion to 1 mg/min. Patient dropped her blood pressures and heart rate so amiodarone infusion was held. Patient was started on Robert-Synephrine. 07/09: Patient was hypertensive, Robert-Synephrine was discontinued. Cardiology recommended starting p.o. amiodarone which was ordered. Also recommended metoprolol which currently have not started because borderline blood pressures and she just came off Robert-Synephrine 07/10: Currently in sinus rhythm rate controlled. Cardiology aware that she was anemic and dropped her hemoglobin on 07/10/2024. Heparin infusion was discontinued due to anemia and drop in hemoglobin 07/12: Currently in sinus rhythm, rate control, remains on p.o. amiodarone, off heparin infusion due to anemia. Cardiology aware (2) Acute on chronic respiratory failure with hypoxia and hypercapnia: Code(s): J96.21 - Acute and chronic respiratory failure with hypoxia; J96.22 - Acute and chronic respiratory failure with hypercapnia Status: Acute Assessment and Plan: Acute on chronic respiratory failure secondary to severe COPD exacerbation. Community-acquired pneumonia although chest x-ray is not suggestive and patient is low procalcitonin level. WBC elevated MRSA screen negative 06/28/2024: Intubated in the ED 06/28: Blood cultures negative x2 -status post says 8 days of ceftriaxone -status post 5 days of doxycycline -DC vancomycin (06/29), MRSA screen negative 07/02: Patient did have high peak pressures, after switching her from propofol to fentanyl and Versed due to elevated triglycerides. She was started on Nimbex infusion which improved her oxygenation, respiratory status and improved air entry. 07/03: Remains on Nimbex, adequate air entry, peak pressures are within normal limits continue fentanyl Versed infusion for now, will start weaning Nimbex, will maintain RASS of 0 to -2 on sedation meds 07/04: Chest x-ray, ABGs reviewed, ventilator adjusted, increased respiratory rate 22 and increased FiO2 to 45%, maintain O2 sats greater than 90%. Have also asked the bedside RN to start weaning the Nimbex to off -07/05: Patient has prolonged expiratory phase, decrease respiratory rate, increased I to E ratio, increased tidal volume. Will repeat ABGs -Continue bronchodilators, -off Solu-Medrol -07/05 and 07/06: off all sedation, will try to place patient on SBT when she is more awake. If she requires any kind of sedation will start Precedex infusion. Patient did not tolerate being off on sedation and went into SVT and AFib RVR. Once sedation was placed back on patient converted to sinus rhythm with regular rate. 07/07: Sedation was weaned again this morning, patient was started on Precedex infusion site could place her on a a breathing trial to evaluate for extubation. Patient again went into AFib RVR, sedation was reinstated 07/08: Tolerating mechanical ventilation, ABGs look good, chest x-ray shows worsening haziness in left lung base, likely developing pneumonia. Patient is WBC count has increased to 20,000, will obtain blood cultures, start cefepime and vancomycin of possible ventilator associated pneumonia 07/09: discussed with William, updated him with patient's condition and plan of care. I discussed with him 6 worsening chest x-ray, possible developing pneumonia with elevated WBC 6. That she would require tracheostomy and PEG tube placement to which she was agreeable, he stated will have to do everything to keep her alive. -Tracheostomy tube scheduled for 07/13/2024: Consulted Dr. Zhang, [phone] (cell), discussed with him regarding tracheostomy for the patient. -07/10: PEG tube was placed by GI 07/12: Remains on CMV mode, ABGs look good. Chest x-ray reviewed. Scheduled for tracheostomy tomorrow 07/13. (3) Acute exacerbation of chronic obstructive pulmonary disease: Code(s): J44.1 - Chronic obstructive pulmonary disease with (acute) exacerbation Status: Acute Assessment and Plan: Continue mechanical ventilation, bronchodilators, antibiotics, (4) Elevated troponin: Code(s): R77.8 - Other specified abnormalities of plasma proteins Status: Acute Assessment and Plan: Patient has elevated troponin likely secondary to demand ischemia from acute respiratory failure. EKG reviewed and does not show any ST elevation. Patient does not have any documented history of coronary disease. Troponins trending down Continue aspirin 81 mg p.o. daily and statin Appreciate cardiology evaluation and recommendation 06/29/2024: Echocardiogram Summary 1. The left ventricle is normal in size with thickened left ventricular rodríguez. The overall left ventricular systolic function appears preserved. Cannot rule out very mild hypokinesis of the apical wall. 2. The right ventricle is normal in size and systolic function. 3. The there is a small amount of pericardial effusion with no echocardiographic evidence of cardiac tamponade. (5) Hypothyroidism: Code(s): E03.9 - Hypothyroidism, unspecified Status: Acute Assessment and Plan: Continue levothyroxine. -07/06: TSH level - within normal limits (6) Electrolyte abnormality: Code(s): E87.8 - Other disorders of electrolyte and fluid balance, not elsewhere classified Status: Acute Assessment and Plan: Potassium levels within normal limits -appreciate Nephrology evaluation and recommendations (7) Elevated LFTs: Code(s): R79.89 - Other specified abnormal findings of blood chemistry Status: Acute Assessment and Plan: Right upper quadrant ultrasound was normal, status post cholecystectomy -hepatitis panel was within normal limit (8) RASHEL (acute kidney injury): Code(s): N17.9 - Acute kidney failure, unspecified Status: Acute Assessment and Plan: Acute kidney injury, likely related to hypotension, intravascular volume depletion, BUN elevated likely related to steroids -nephrology has been consulted and appreciate the evaluation and recommendation -discuss with Nephrology, will start albumin 25% x4 doses since she may be intravascularly depleted -monitor urine output, renal function electrolytes 07/06: Renal ultrasound: No hydronephrosis in either kidney. -urine lytes not reflective of prerenal picture -CKD levels elevated to 813 07/07: Patient may more urine overnight, creatinine trending down. Discuss with Nephrology, will give 1 L IV fluids over 10 hours 07/08: Urine output has improved, creatinine trending down. Low potassium levels will replete due to AFib RVR 07/09: Urine output is adequate, creatinine increased likely related to hypotension, AFib RVR. Will continue to monitor nephrology also following. Potassium levels are normal 07/11: Creatinine continues to increase, patient had some obstruction of her Goddard catheter which could also be a cause. Once Goddard was flushed she had adequate urine output. Have asked the bedside RN to replace the Goddard catheter 07/12: Creatinine continues to rise but BUN is decreasing. Continue to monitor, discussed with Nephrology, may try diuretics (9) Hyperglycemia: Code(s): R73.9 - Hyperglycemia, unspecified Status: Acute Assessment and Plan: Hyperglycemia likely related to tube feeds and or steroid -weaning steroid -continue Accu-Cheks and sliding scale insulin, -continue Lantus. (10) Anemia: Code(s): D64.9 - Anemia, unspecified Status: Acute Assessment and Plan: Patient dropped her hemoglobin to 8.3 from 10.9 (07/05) -07/06/2024: Stool occult was positive -iron panel did not show any iron deficiency, normal folate level -low vitamin B12 level, will give IM cyanocobalamin weekly x2 doses -continue Protonix to IV q.12 hours -appreciate GI evaluation , no endoscopy recommended at this time -hemoglobin remains stable 07/10: Patient dropped hemoglobin to 6.7 again, received 1 unit of packed RBCs. Heparin infusion was discontinued (which was for new onset atrial fibrillation RVR). -hemoglobin stable, continue monitor 07/13: Hemoglobin fluctuating between 7.5 and 7.9. Continue to monitor, will transfuse if hemoglobin < 7.0 (11) Encephalopathy: Code(s): G93.40 - Encephalopathy, unspecified Status: Acute Assessment and Plan: Patient opens her eyes but does not follow simple commands, upper extremities are flaccid, pupils are equal and reactive, patient grimaces to pain but does n ot withdraw to pain stimulus -07/08: stat CT scan of the brain: 1. No acute intracranial process.2. 8 mm calcified extra-axial mass overlying the left parietal lobe most consistent with a meningioma. -ammonia level <9 -continue to monitor (12) Shock: Code(s): R57.9 - Shock, unspecified Status: Acute Assessment and Plan: 07/11: Patient with hypotension overnight, given IV fluid bolus. Started on Levophed, maintain MAP > 65 mmHg for adequate end organ perfusion especially renal perfusion -continue cefepime and vancomycin -07/08: Blood cultures with no growth x2 -07/08: Sputum culture growing yeast 07/13: Levophed has been turned off on 07/11 at 4:00 p.m. . Blood pressures have been adequate, continue to monitor Plan DVT prophylaxis -SCDs, no chemoprophylaxis due to anemia requiring blood transfusion Stress ulcer prophylaxis -PPI IV q.12 hours Nutrition -tolerating tube feeds Code Status - Full Code Total Critical Care Time - 33 minutes -discussed with Nephrology and Cardiology 07/09: discussed with William, updated him with patient's condition and plan of care. I discussed with him 6 worsening chest x-ray, possible developing pneumonia with elevated WBC 6. That she would require tracheostomy and PEG tube placement to which she was agreeable, he stated will have to do everything to keep her alive. Consulted Dr. Zhang, [phone] (cell), tracheostomy scheduled for 07/13/2024 Due to a high probability of clinically significant, life threatening deterioration, the patient required my highest level of preparedness to intervene emergently and I personally spent this critical care time directly and personally managing the patient. This critical care time included obtaining a history; examining the patient; pulse oximetry; ordering and review of studies; arranging urgent treatment with development of a management plan; evaluation of patient's response to treatment; frequent reassessment; and discussions with other providers. It was exclusive of separately billable procedures and treating other patients and teaching time. Please see Assessment and Plan section and the rest of the note for further information on patient assessment and treatment This dictation may have been done utilizing a voice recognition system. Attempts have been made to correct errors. However, there may be uncorrected grammatical, spelling, and recognitions errors present. Subjective Date/time seen: 07/12/24 09:58 Interval history: Reason for consult: COPD exacerbation, acute hypercapnic respiratory failure, NSTEMI with elevated troponin 07/08: CT brain was negative, was done for encephalopathy 07/10: PEG tube placement by GI 07/12/2024: Patient seen examined the ICU, remains intubated on CMV mode of ventilation, peep of 8, 50% FiO2. Sedated with fentanyl and Versed infusion, opens her eyes but does not follow simple commands. She does withdraw to pain in all extremities. No issues overnight. Hemodynamically stable. Has been off Levophed since 1600 on 05/10/2025. Urine output has been adequate, afebrile, tolerating tube feeds Review of Systems Review of Systems: ROS unobtainable: Yes unobtainable due to endotracheal tube, unobtainable due to medical condition and unobtainable due to mental status Exam Narrative: General: Pt is sedated and intubated and on mechanical ventilation HEENT: Pupils equal and reactive, sclera is clear, ETT in place Lungs/Chest: Trachea central, adequate air entry, coarse breath sounds at bases, no wheezing., rales noted on left lower lobe Cardiac: Sinus rhythm, rate controlled Abdomen: Decreased bowel sounds. Nontender, nondistended Obese. Soft. . PEG in place Extremities: Positive edema, anasarca up to the thighs : Goddard in place Neurologic: Intubated, sedated opens her eyes but does not follow simple commands, grimaces to pain but does not withdraw. Objective Data Vital Signs Vital Signs: Vital Signs - 24 hr 07/11/24 10:07/11/24 10:07/11/24 10:00 Temperature 98 F Pulse Rate 76 76 76 Respiratory Rate 15 Blood Pressure 121/43 L 121/43 L Pulse Oximetry 91 Oxygen Delivery Fraction of Inspired Oxygen 07/11/24 10:07/11/24 10:07/11/24 11:08 Temperature Pulse Rate 76 76 74 Respiratory Rate 16 16 Blood Pressure Pulse Oximetry 92 Oxygen Delivery Mechanical Ventilation Fraction of Inspired Oxygen 40 07/11/24 12:07/11/24 12:00 07/11/24 12:00 Temperature Pulse Rate 75 75 74 Respiratory Rate 16 16 Blood Pressure 104/48 L Pulse Oximetry Oxygen Delivery Fraction of Inspired Oxygen 07/11/24 12:00 07/11/24 12:00 07/11/24 12:00 Temperature 98.5 F Pulse Rate 74 76 Respiratory Rate 16 Blood Pressure 127/47 L Pulse Oximetry 93 93 Oxygen Delivery Mechanical Ventilation Fraction of Inspired Oxygen 40 07/11/24 12:00 07/11/24 13:56 07/11/24 13:59 Temperature Pulse Rate 78 77 Respiratory Rate 16 Blood Pressure Pulse Oximetry 93 Oxygen Delivery Mechanical Ventilation Fraction of Inspired Oxygen 40 40 07/11/24 14:00 07/11/24 14:00 07/11/24 14:00 Temperature 98.7 F Pulse Rate 77 78 78 Respiratory Rate 16 16 Blood Pressure 126/53 L Pulse Oximetry 90 Oxygen Delivery Fraction of Inspired Oxygen 07/11/24 14:00 07/11/24 14:00 07/11/24 14:01 Temperature Pulse Rate 78 78 77 Respiratory Rate 16 17 Blood Pressure 126/53 L Pulse Oximetry Oxygen Delivery Fraction of Inspired Oxygen 07/11/24 15:14 07/11/24 15:32 07/11/24 15:32 Temperature Pulse Rate 80 81 Respiratory Rate 16 16 Blood Pressure Pulse Oximetry 87 L Oxygen Delivery Fraction of Inspired Oxygen 50 07/11/24 16:00 07/11/24 16:00 07/11/24 16:00 Temperature Pulse Rate 80 Respiratory Rate Blood Pressure Pulse Oximetry 93 Oxygen Delivery Mechanical Ventilation Fraction of Inspired Oxygen 50 50 07/11/24 16:00 07/11/24 16:00 07/11/24 16:00 Temperature 98.9 F Pulse Rate 8 L 80 80 Respiratory Rate 18 16 Blood Pressure 117/50 L 117/50 L Pulse Oximetry 93 Oxygen Delivery Fraction of Inspired Oxygen 07/11/24 16:00 07/11/24 17:14 07/11/24 18:00 Temperature Pulse Rate 80 78 78 Respiratory Rate 16 Blood Pressure Pulse Oximetry 93 Oxygen Delivery Mechanical Ventilation Fraction of Inspired Oxygen 50 07/11/24 18:00 07/11/24 18:00 07/11/24 18:00 Temperature 98.9 F Pulse Rate 78 77 77 Respiratory Rate 16 16 Blood Pressure 106/84 124/53 L Pulse Oximetry 93 Oxygen Delivery Fraction of Inspired Oxygen 07/11/24 18:00 07/11/24 20:00 07/11/24 20:00 Temperature Pulse Rate 77 Respiratory Rate 16 Blood Pressure Pulse Oximetry 95 Oxygen Delivery Mechanical Ventilation Fraction of Inspired Oxygen 50 50 07/11/24 20:00 07/11/24 20:00 07/11/24 20:00 Temperature 99.0 F Pulse Rate 77 77 77 Respiratory Rate 18 18 Blood Pressure 118/57 L 118/57 L Pulse Oximetry 93 Oxygen Delivery Fraction of Inspired Oxygen 07/11/24 20:00 07/11/24 20:00 07/11/24 20:05 Temperature Pulse Rate 77 77 77 Respiratory Rate 18 Blood Pressure Pulse Oximetry Oxygen Delivery Fraction of Inspired Oxygen 07/11/24 20:12 07/11/24 20:12 07/11/24 20:17 Temperature Pulse Rate 77 77 77 Respiratory Rate 16 19 Blood Pressure Pulse Oximetry 95 Oxygen Delivery Mechanical Ventilation Fraction of Inspired Oxygen 50 07/11/24 22:00 07/11/24 22:00 07/11/24 22:00 Temperature 99.0 F Pulse Rate 79 79 79 Respiratory Rate 14 14 Blood Pressure 121/53 L 121/53 L Pulse Oximetry 93 Oxygen Delivery Fraction of Inspired Oxygen 07/11/24 22:00 07/11/24 22:00 07/11/24 23:30 Temperature Pulse Rate 79 79 78 Respiratory Rate 14 Blood Pressure Pulse Oximetry 94 Oxygen Delivery Mechanical Ventilation Fraction of Inspired Oxygen 50 07/12/24 00:00 07/12/24 00:00 07/12/24 00:00 Temperature 99.0 F Pulse Rate 77 Respiratory Rate 18 Blood Pressure 118/57 L Pulse Oximetry 93 93 Oxygen Delivery Mechanical Ventilation Fraction of Inspired Oxygen 50 50 07/12/24 00:00 07/12/24 00:00 07/12/24 00:00 Temperature Pulse Rate 79 79 79 Respiratory Rate 16 Blood Pressure 114/49 L Pulse Oximetry Oxygen Delivery Fraction of Inspired Oxygen 07/12/24 00:00 07/12/24 01:48 07/12/24 01:49 Temperature 99.2 F Pulse Rate 79 76 76 Respiratory Rate 16 16 Blood Pressure 103/47 L Pulse Oximetry 94 Oxygen Delivery Fraction of Inspired Oxygen 07/12/24 02:00 07/12/24 02:00 07/12/24 02:00 Temperature Pulse Rate 75 75 75 Respiratory Rate 16 16 Blood Pressure 107/58 L Pulse Oximetry Oxygen Delivery Fraction of Inspired Oxygen 07/12/24 02:41 07/12/24 02:41 07/12/24 03:26 Temperature Pulse Rate 75 75 76 Respiratory Rate 17 16 Blood Pressure Pulse Oximetry 94 Oxygen Delivery Mechanical Ventilation Fraction of Inspired Oxygen 50 07/12/24 03:27 07/12/24 04:00 07/12/24 04:00 Temperature Pulse Rate 76 Respiratory Rate 16 Blood Pressure Pulse Oximetry 96 Oxygen Delivery Mechanical Ventilation Fraction of Inspired Oxygen 50 50 07/12/24 04:00 07/12/24 04:00 07/12/24 04:00 Temperature 98.9 F Pulse Rate 78 78 78 Respiratory Rate 16 16 Blood Pressure 125/44 L Pulse Oximetry 94 Oxygen Delivery Fraction of Inspired Oxygen 07/12/24 04:00 07/12/24 04:00 07/12/24 05:48 Temperature Pulse Rate 78 78 79 Respiratory Rate 16 Blood Pressure 125/44 L Pulse Oximetry 96 Oxygen Delivery Mechanical Ventilation Fraction of Inspired Oxygen 50 07/12/24 06:00 07/12/24 06:00 07/12/24 06:00 Temperature 98.1 F Pulse Rate 74 76 76 Respiratory Rate 16 16 Blood Pressure 123/59 L Pulse Oximetry 94 Oxygen Delivery Fraction of Inspired Oxygen 07/12/24 06:00 07/12/24 06:00 07/12/24 08:00 Temperature Pulse Rate 76 76 74 Respiratory Rate 16 Blood Pressure 123/59 L 138/63 Pulse Oximetry Oxygen Delivery Fraction of Inspired Oxygen 07/12/24 08:00 07/12/24 08:00 07/12/24 08:00 Temperature 98.3 F Pulse Rate 74 74 73 Respiratory Rate 16 16 16 Blood Pressure 131/72 Pulse Oximetry 95 Oxygen Delivery Fraction of Inspired Oxygen 07/12/24 08:00 07/12/24 08:00 07/12/24 09:24 Temperature Pulse Rate 75 Respiratory Rate Blood Pressure Pulse Oximetry 95 Oxygen Delivery Mechanical Ventilation Fraction of Inspired Oxygen 50 50 07/12/24 09:33 07/12/24 09:35 07/12/24 09:44 Temperature Pulse Rate 74 74 74 Respiratory Rate 16 16 Blood Pressure Pulse Oximetry 95 Oxygen Delivery Mechanical Ventilation Fraction of Inspired Oxygen 50 Intake/Output Intake/Output: Intake & Output 07/09/24 07/10/24 07/11/24 07/12/24 23:59 23:59 23:59 23:59 Intake Total 2401.4 1880.9 2474.7 850.5 Output Total 573 182 8255 475 Balance 1851.4 1430.9 1174.7 375.5 Meds/Results Medications: Active Medications Generic Name Dose Route Start Last Admin Trade Name Freq PRN Reason Stop Dose Admin Albuterol/Ipratropium 3 ml 06/29/24 02:00 07/12/24 09:31 Ipratropium 0.5 Mg/Albuterol Sulfate 2.5 Mg Ampul.Neb 3 Ml INHALATION 3 ml Q6HRT BARBARA Administration Amiodarone HCl 400 mg 07/09/24 12:20 07/12/24 09:24 Amiodarone Hcl 200 Mg Tablet PO 400 mg Q12HR BARBARA Administration Aspirin 81 mg 07/01/24 08:00 07/12/24 09:24 Aspirin 81 Mg Chewable Tablet PO 81 mg DAILY@0800 BARBARA Administration Atorvastatin Calcium 40 mg 06/29/24 09:00 07/12/24 09:24 Atorvastatin 40 Mg Tablet PO 40 mg DAILY BARBARA Administration Cyanocobalamin 1,000 mcg 07/07/24 12:00 07/07/24 13:35 Cyanocobalamin Inj 1,000 Mcg/Ml Vial IM 07/14/24 09:01 1,000 mcg WEEKLY BARBARA Administration Dextrose 12.5 gm 06/29/24 08:08 Dextrose 50% 25 Gm/50 Ml Syringe IV PUSH PRN PRN Hypoglycemia Protocol Glucagon 1 mg 06/29/24 08:08 Glucagon For Inj 1 Mg Vial IM PRN PRN Hypoglycemia Protocol Glucose 15 gm 06/29/24 08:08 Glucose Oral Gel 15 Gm Of Glucse In 37.5 Gm Tube PO PRN PRN Hypoglycemia Protocol Heparin Sodium (Porcine) 5,000 units 07/07/24 11:24 Heparin Sodium 5,000 Units/Ml Vial IV PUSH PRN PRN aPTT less than 55 seconds Heparin Sodium (Porcine) 2,500 units 07/07/24 11:24 07/09/24 07:21 Heparin Sodium 5,000 Units/Ml Vial IV PUSH 2,500 units PRN PRN Administration aPTT 55 - 70 seconds Hydralazine HCl 10 mg 07/06/24 16:42 07/06/24 17:03 Hydralazine Hcl 20 Mg/Ml Vial IV PUSH 10 mg Q4H PRN Administration Blood Pressure - High Dextrose 1,000 mls @ 100 mls/hr 06/29/24 08:08 Dextrose 5% 1,000 Ml IVPB PRN PRN Hypoglycemia Protocol Fentanyl Citrate 2,500 mcg in 250 mls @ 7.5 mls/hr 07/06/24 17:55 07/12/24 08:00 Fentanyl 2,500 Mcg/Ns 250 Ml IV CONT 75 mcg/hr .[id number] BARBARA 7.5 mls/hr Titration Protocol 75 MCG/HR Midazolam HCl 100 mg in 100 mls @ 2 mls/hr 07/06/24 17:55 07/12/24 08:00 Versed 100 Mg/Ns 100 Ml IV CONT 2 mg/hr .Q50H BARBARA 2 mls/hr Titration Protocol 2 MG/HR Heparin Sodium/Dextrose 25,000 units in 250 mls @ 0 mls/hr 07/07/24 11:25 07/10/24 08:52 Heparin Sodium/D5w 100 Units/Ml IV CONT 0 units/hr .Q0M BARBARA 0 mls/hr Titration Protocol Cefepime HCl 1 gm in 50 mls @ 100 mls/hr 07/08/24 11:00 07/12/24 09:24 Maxipime 1 Gm/Ns 50 Ml IVPB 100 mls/hr Q12HR BARBARA Administration Norepinephrine Bitartrate 8 mg in 250 mls @ 0 mls/hr 07/10/24 19:50 07/12/24 08:00 Levophed 8 Mg/D5w 250 Ml IV CONT 0 mcg/min .Q0M BARBARA 0 mls/hr Titration Protocol 0 MCG/MIN Vancomycin HCl 1,000 mg in 250 mls @ 250 mls/hr 07/12/24 09:00 Vancomycin 1,000 Mg/Ns 250 Ml IVPB 07/12/24 09:59 ONCE ONE Insulin Aspart 3 - 6 units 06/29/24 12:00 07/12/24 06:08 Insulin Aspart (*Bkc) 100 Units/Ml SUB-Q Not Given Q6HR [facility] Protocol Insulin Glargine 8 units 07/06/24 09:00 07/12/24 09:35 Insulin Glargine (*Bkc) 100 Units/Ml SUB-Q 8 units DAILY BARBARA Administration Levothyroxine Sodium 50 mcg 06/30/24 06:30 07/12/24 06:15 Levothyroxine Sodium 50 Mcg Tablet FEED TUBE 50 mcg DAILY@0630 BARBARA Administration Multi-Ingred Cream/Lotion/Oil/Oint 1 applic 06/29/24 09:00 07/12/24 09:25 Mineral Oil/White Petrolatum Ointment EACH EYE 1 applic Q12HR BARBARA Administration Pantoprazole Sodium 40 mg 07/06/24 21:00 07/12/24 09:24 Pantoprazole Sodium Iv 40 Mg Vial IV PUSH 40 mg Q12HR BARBARA Administration Sodium Chloride 10 ml 06/29/24 14:00 07/12/24 06:16 Central Line Flush IV PUSH 10 ml Q8HR BARBARA Administration Sodium Chloride 10 ml 06/29/24 12:40 Central Line Flush IV PUSH PRN PRN with TPN bag changes Sodium Chloride 20 ml 06/29/24 12:40 Central Line Flush IV PUSH PRN PRN after blood draws Vancomycin HCl 1 each 07/08/24 10:48 Vancomycin For Acute Kidney Injury IVPB PRN PRN Vancomycin Protocol Radiology Results: ITS Impressions Abdomen X-Ray 06/28/24 20:03 IMPRESSION: Nasogastric tube in good position and ready for immediate use. Abdomen Ultrasound 07/03/24 14:12 IMPRESSION: 1. Normal right upper quadrant ultrasound status post cholecystectomy. Renal Ultrasound 07/06/24 08:30 IMPRESSION: 1. No hydronephrosis in either kidney. Head CT 07/08/24 10:08 IMPRESSION: 1. No acute intracranial process. 2. 8 mm calcified extra-axial mass overlying the left parietal lobe most consistent with a meningioma. Chest X-Ray 07/12/24 06:26 IMPRESSION: Small left-sided pleural effusion. Supportive lines and tubes in good position. Labs Labs: Laboratory Results - last 24 hr 07/11/24 07/11/24 07/11/24 11:44 11:52 18:03 WBC RBC Hgb Hct MCV MCH MCHC RDW Plt Count MPV Immature Gran % (Auto) Neut % (Auto) Lymph % (Auto) Boundary % (Auto) Eos % (Auto) Baso % (Auto) Lymph # (Auto) Boundary # (Auto) Eos # (Auto) Baso # (Auto) Abs Immat Gran (auto) Absolute Neuts (auto) Absolute Nucleated RBC Nucleated RBC % Platelet Estimate Hypochromasia Anisocytosis Ovalocytes Schistocytes Puncture Site ABG pH ABG pCO2 ABG pO2 ABG PO2/FiO2 Ratio ABG HCO3 ABG O2 Saturation ABG O2 Content ABG Base Excess A-a Gradient Oxyhemoglobin Carboxyhemoglobin Methemoglobin Reduced Hemoglobin Total Hemoglobin O2 Delivery Device O2 Liters/Min Minute Volume Vent Rate Vent Mode FiO2 Tidal Volume PEEP Peak Inspir Pressure Pressure Support Sodium Potassium Chloride Carbon Dioxide Anion Gap BUN Creatinine Estim Creat Clear Calc Estimated GFR Glucose POC Capillary Glucose 174 H 137 H Lactic Acid Calcium Phosphorus Magnesium Total Bilirubin AST ALT Alkaline Phosphatase Total Protein Albumin Urine Color Yellow Urine Appearance Turbid H Urine pH 5.0 Ur Specific [place] 1.015 Urine Protein 2+ H Urine Glucose (UA) Negative Urine Ketones Negative Ur Blood (Man) 3+ H Urine Nitrate Negative Urine Bilirubin Negative Urine Urobilinogen 0.2 Ur Leukocyte Esterase 3+ H Add Ur Microanalysis Reviewed Urine RBC 21-50 H Urine WBC >100 H Ur Squamous Epith Cells Many H Urine Bacteria None seen Urine Casts >20 Granular Casts Present Vancomycin Trough 07/11/24 07/12/24 07/12/24 23:54 04:47 05:40 WBC 23.7 H RBC 2.51 L Hgb 7.5 L Hct 23.0 L MCV 91.6 MCH 29.9 MCHC 32.6 RDW 17.4 H Plt Count 249 MPV 12.5 H Immature Gran % (Auto) 0.8 H Neut % (Auto) 85.8 H Lymph % (Auto) 4.2 L Boundary % (Auto) 7.9 Eos % (Auto) 1.1 Baso % (Auto) 0.2 Lymph # (Auto) 0.99 Boundary # (Auto) 1.9 H Eos # (Auto) 0.3 Baso # (Auto) 0.0 Abs Immat Gran (auto) 0.19 H Absolute Neuts (auto) 20.3 H Absolute Nucleated RBC 0.040 H Nucleated RBC % 0.2 Platelet Estimate Adequate Hypochromasia 1+ Anisocytosis 1+ Ovalocytes 1+ Schistocytes None seen Puncture Site Right radial ABG pH 7.361 ABG pCO2 45.8 H ABG pO2 89.4 ABG PO2/FiO2 Ratio 1.79 ABG HCO3 25.4 ABG O2 Saturation 96.5 ABG O2 Content 12.5 L ABG Base Excess -0.2 A-a Gradient 215.6 Oxyhemoglobin 95.5 Carboxyhemoglobin 0.5 Methemoglobin 0.3 Reduced Hemoglobin 3.7 Total Hemoglobin 9.2 L O2 Delivery Device Ventilator O2 Liters/Min Not Reportable Minute Volume Not Reportable Vent Rate 16 Vent Mode Cmv FiO2 50 Tidal Volume 480 PEEP 8 Peak Inspir Pressure Not Reportable Pressure Support Not Reportable Sodium 143 Potassium 4.2 Chloride 106 Carbon Dioxide 27 Anion Gap 10 BUN 118 H D Creatinine 2.62 H Estim Creat Clear Calc 16 Estimated GFR 21 L Glucose 138 H POC Capillary Glucose 153 H Lactic Acid 0.8 Calcium 9.1 Phosphorus 5.6 H Magnesium 2.5 H Total Bilirubin 0.4 AST 30 ALT 42 H Alkaline Phosphatase 113 Total Protein 6.0 L Albumin 3.0 L Urine Color Urine Appearance Urine pH Ur Specific [place] Urine Protein Urine Glucose (UA) Urine Ketones Ur Blood (Man) Urine Nitrate Urine Bilirubin Urine Urobilinogen Ur Leukocyte Esterase Add Ur Microanalysis Urine RBC Urine WBC Ur Squamous Epith Cells Urine Bacteria Urine Casts Granular Casts Vancomycin Trough 16.5 Quality VTE Prophylaxis VTE prophylaxis: pharmacologic ordered
[2024-07-12] MEDS: VANCOMYCIN 1,000 MG/NS 250 ML 1,000 MG/250 ML BAG 250 MG IVPB (10:00)
[2024-07-12 11:22] LABS: Glucose Point of Care 137 mg/dl (65-105)
--- NOTE | 2024-07-12 17:00 | P.HPUP_ITS ---
History and Physical Update Update Date/Time: 07/12/24 17:00 History and Physical has been reviewed, including an updated exam of the patient. There are NO changes in the patient's condition. Risks, benefits, and alternatives have been discussed and questions answered. Patient (proxy) agrees to proceed with procedure. Patient: Laxmi Colon : 1945 Assessment and Plan Assessment and plan (1) Acute hypercapnic respiratory failure: Code(s): J96.02 - Acute respiratory failure with hypercapnia Status: Acute Assessment and Plan: Plan for tracheotomy placement in OR on 07/13/2024 7:30 for acute on chronic respiratory failure with COPD exacerbation and failure to extubate. Discussed with pt , and will get consent from . HPI Data of Consult Date/Time: 07/13/2024 Requesting Physician: Lamonte Toney Consult Narrative Reason for consult: Tracheostomy Narrative: Laxmi Colon is a 78 year old female admitted for COPD exacerbation, was intubated since 06/28/2024. ENT consulted for tracheostomy brenda cement. with PEG placed . Pt had been informed of potential need for tracheostomy and agreed with that course of treatment .
[2024-07-12 17:22] LABS: Glucose Point of Care 124 mg/dl (65-105)
[2024-07-13] VITALS (32 sets, daily range): BP systolic 100–143; BP diastolic 45–93; PULSE 65–79; RESP 14–23; TEMP 36.3–37.5; O2SAT 92–96
[2024-07-13 00:49] LABS: Glucose Point of Care 111 mg/dl (65-105)
[2024-07-13] MEDS: IPRATROPIUM 0.5 MG/ALBUTEROL SULFATE 2.5 MG AMPUL.NEB 3 ML INHALATION ×3 (02:30→20:16)
[2024-07-13 05:17] LABS: Alveolar/Arterial O2 Gradient 218.3 mmHg; Base Excess ABG 0.7 mEq/l (+/-2.0); Carboxyhemoglobin 1.1 % THb (0-2.0); Fractional Inspired Oxygen 50 %; HCO3 ABG 26.6 mEq/l (22.0-26.0); Methemoglobin ABG 0.3 %THb (0-1.5); Oxygen Content ABG 10.6 %vol (16.0-22.0); Oxygen Saturation ABG 95.5 % (95.0-100.0); Oxyhemoglobin 94.2 % THb (90.0-100.0); PCO2 ABG 49.6 mmHg (35.0-45.0); PO2 ABG 82.4 mmHg (80.0-100.0); PO2 FiO2 Ratio Arterial Blood 1.65 %; Reduced Hemoglobin 4.4 %THb (0-5.0); pH ABG 7.347 (7.350-7.450)
[2024-07-13 05:21] LABS: Device VENTILATOR; Modified Allen's Test Pass; Site Drawn LEFT RADIAL; Total Hemoglobin 7.9 g/dL (12.0-18.0)
[2024-07-13 05:22] LABS: Arterial Blood Gas PEEP 8 cmH2O; Arterial Blood Gas Tidal Volume 480 ml; Arterial Blood Gas Vent Mode CMV; Arterial Blood Gas Ventilator rate 16 /MIN
[2024-07-13 05:54] LABS: Basophils Percent Auto 0.1 % (0.2-1.2); Eosinophils Absolute Auto 0.3 K/mm3 (0-0.3); Eosinophils Percent Auto 1.4 % (0-4.4); Hematocrit 22.2 % (37.0-47.0); Immature Granulocyte Percent A 1.1 % (0-0.5); Lymphocytes Absolute Auto 1.17 K/mm3 (0.9-3.2); Lymphocytes Percent Auto 6.4 % (18.3-44.2); Mean Corpuscular HGB Conc 31.1 g/dl (32-36); Mean Corpuscular Hemoglobin 29.1 pg (26-34); Mean Corpuscular Volume 93.7 fl (80-100); Mean Platelet Volume 11.7 fl (7.4-10.4); Monocytes Absolute Auto 1.5 K/mm3 (0.1-0.6); Monocytes Percent Auto 8.3 % (2.6-8.5); Neutrophils Absolute Auto 15.1 K/mm3 (1.3-6.7); Neutrophils Percent Auto 82.7 % (45.5-73.1); Platelet Count Result 239 k/mm3 (150-375); Red Blood Count 2.37 M/mm3 (4.2-5.4); Red Cell Distribution Width 17.8 % (11.5-14.5); White Blood Count 18.3 K/mm3 (4.5-10.0)
[2024-07-13 05:59] LABS: Hemoglobin 6.9 g/dL (12.0-15.0)
[2024-07-13 06:09] LABS: Alanine Aminotransferase 43 U/L (6-35); Albumin Level 2.9 g/dL (3.5-5.1); Alkaline Phosphatase 108 U/L (38-126); Anion Gap 12 mmol/L (4-12); Aspartate Amino Transferase 39 U/L (14-36); Bilirubin,Total 0.5 mg/dL (0.2-1.3); Calcium 8.8 mg/dL (8.4-10.2); Carbon Dioxide 25 mmol/L (22-30); Chloride 106 mmol/L (98-107); Estimated CRCL calculation 15 ml/min; Estimated Glomerular Filt Rate 19; Glucose 107 mg/dL (65-110); Magnesium 2.6 mg/dL (1.6-2.3); Potassium 4.5 mmol/L (3.4-5.0); Sodium 143 mmol/L (137-145)
[2024-07-13 06:11] LABS: Vancomycin Trough 23.6 ug/mL (10.0-20.0)
[2024-07-13 06:19] LABS: Blood Urea Nitrogen 132 mg/dL (7-17)
[2024-07-13] MEDS: CENTRAL LINE FLUSH 10 ML IV PUSH ×3 (06:57→21:05)
--- NOTE | 2024-07-13 07:11 | P.HP_ITS ---
H&P: HPI History of Present Illness Date/Time: 07/13/24 07:11 Chief Complaint: Prolonged ET intubation Review of Systems ENT: Reports as per HPI [facility] Past Medical History Medical History (Updated 07/10/24 @ 13:09 by Codie Zhang MD) Occult blood in stools Acute on chronic anemia Diastolic dysfunction Grade 1 Diastolic dysfunction noted on echocardiogram from 2020 repeat echo in 2022 demonstrated EF of 70% with indeterminate diastolic function with mild pulmonary hypertension with RVSP of 38 Chronic respiratory failure with hypoxia and hypercapnia On home O2 of 3 L and nighttime PAP therapy Renal mass Lung nodule Hypothyroidism COPD (chronic obstructive pulmonary disease) CHERYL on CPAP History of tobacco use History of heart attack Elevated lipids Hypertension H/O vaginal delivery Thyroid disease Lung nodule Renal mass Essential hypertension Former smoker Quit 2018 with 54 pack per year history Hypothyroidism Coronary artery disease Hyperlipidemia Diastolic dysfunction With echocardiogram 2022 demonstrated EF is 70% mild pulmonary hypertension with RVSP of 38, prior echocardiogram 2020 demonstrated grade 1 diastolic dysfunction Obstructive sleep apnea on CPAP With 4 L of bleed in oxygen Chronic respiratory failure with hypoxia and hypercapnia Home O2 of 4 L Surgical History Surgical History Status post extracapsular cataract extraction of left eye History of total abdominal hysterectomy and bilateral salpingo-oophorectomy History of tubal ligation History of cholecystectomy History of tubal ligation History of total abdominal hysterectomy and bilateral salpingo-oophorectomy Hx of cholecystectomy Family History Family History Mother Hypertension Sibling Family history of malignant neoplasm of kidney Family history of lung cancer Lung disease Mother Hypertension Sibling Malignant neoplasm of kidney Lung cancer Social History Social History Social History: Currently lives with in [place]. They have been since 1965 Surrogate decisionmaker: William, . Full Code. Retired from [employer]. Patient has 3 children. Smoking packs per day: 1 Smoking cigarettes per day: 20.0 Years smoked: 54 Smoking pack-years: 54.00 Smoking status: Former smoker Tobacco type: cigarettes Smoking end date: 10/27/18 Alcohol intake: never Substance use: never Do You Feel Safe in your Home?: Yes Lack of Transportation: No Lack of Food: Never True Current Housing: I Have Housing Concerned About Future Housing: No Difficulty Paying Gas/Electric Bills: No Difficulty Paying for Meds: No Currently Unemployed: No Education: Decline to Answer Difficulty w/ Childcare or Family Care: No Living arrangements: with family Occupation/Education: retired Gender identity (if verbalized by the patient): Female Spiritual care concerns: No Meds Home Medications and Allergies Home Medications ?Medication ?Instructions ?Recorded ?Confirmed ?Type atorvastatin 40 mg tablet 40 mg PO DAILY 05/05/19 12/03/23 History aspirin 81 mg tablet,delayed 81 mg PO DAILY 05/06/19 12/03/23 History release calcium carbonate 600 mg PO BID 05/06/19 12/03/23 History levothyroxine 50 mcg tablet 50 mcg PO DAILY 05/06/19 12/03/23 History levalbuterol HCl 1.25 mg/3 mL 0.63 mg (1.512 mL) inhalation 10/04/23 12/03/23 Rx solution for nebulization Q6HRT PRN shortness of breath or wheezing #72 mL azithromycin 250 mg tablet 500 mg (2 x 250 mg) PO QMWF #36 12/03/23 12/03/23 Rx tabs budesonide 160 mcg-glycopyr 9 2 inh inhalation BID #32.1 grams 12/03/23 12/03/23 Rx mcg-formot 4.8 mcg/actuation HFA inhaler (Breztri Aerosphere) albuterol sulfate 90 mcg/actuation 2 puff inhalation Q4H PRN 01/21/24 Rx aerosol inhaler shortness of breath, wheezing #8.5 grams albuterol 90 mcg/actuation aerosol 90 mcg inhalation PRN 06/28/24 06/28/24 History inhaler atorvastatin 40 mg tablet (Lipitor) 40 mg PO DAILY 06/28/24 06/28/24 History azithromycin 250 mg tablet 500 mg PO .COMPLEX 06/28/24 06/28/24 History levothyroxine 50 mcg capsule 50 mcg PO DAILY 06/28/24 06/28/24 History Allergies Allergy/AdvReac Type Severity Reaction Status Date / Time No Known Allergies Allergy Verified 06/29/24 08:19 Vital Signs Vital Signs - 24 hr 07/12/24 08:00 07/12/24 08:00 07/12/24 08:00 Temperature Pulse Rate 74 74 74 Respiratory Rate 16 16 Blood Pressure 138/63 Pulse Oximetry Oxygen Delivery Fraction of Inspired Oxygen 07/12/24 08:00 07/12/24 08:00 07/12/24 08:00 Temperature 36.8 C Pulse Rate 73 Respiratory Rate 16 Blood Pressure 131/72 Pulse Oximetry 95 95 Oxygen Delivery Mechanical Ventilation Fraction of Inspired Oxygen 50 50 07/12/24 08:00 07/12/24 09:24 07/12/24 09:33 Temperature Pulse Rate 76 75 74 Respiratory Rate 16 Blood Pressure Pulse Oximetry Oxygen Delivery Fraction of Inspired Oxygen 07/12/24 09:35 07/12/24 09:44 07/12/24 10:00 Temperature Pulse Rate 74 74 75 Respiratory Rate 16 Blood Pressure 130/67 Pulse Oximetry 95 Oxygen Delivery Mechanical Ventilation Fraction of Inspired Oxygen 50 07/12/24 10:00 07/12/24 10:00 07/12/24 10:00 Temperature 36.8 C Pulse Rate 74 74 74 Respiratory Rate 16 16 16 Blood Pressure 130/67 Pulse Oximetry 95 Oxygen Delivery Fraction of Inspired Oxygen 07/12/24 10:00 07/12/24 11:41 07/12/24 12:00 Temperature Pulse Rate 74 70 72 Respiratory Rate 16 Blood Pressure Pulse Oximetry 95 Oxygen Delivery Mechanical Ventilation Fraction of Inspired Oxygen 50 07/12/24 12:00 07/12/24 12:00 07/12/24 12:00 Temperature 36.9 C Pulse Rate 72 72 71 Respiratory Rate 16 16 Blood Pressure 110/56 L 115/58 L Pulse Oximetry 95 Oxygen Delivery Fraction of Inspired Oxygen 07/12/24 12:00 07/12/24 12:00 07/12/24 12:00 Temperature Pulse Rate 71 Respiratory Rate Blood Pressure Pulse Oximetry 95 Oxygen Delivery Mechanical Ventilation Fraction of Inspired Oxygen 50 50 07/12/24 14:00 07/12/24 14:00 07/12/24 14:00 Temperature 36.8 C Pulse Rate 70 70 70 Respiratory Rate 16 16 Blood Pressure 120/52 L Pulse Oximetry 95 Oxygen Delivery Fraction of Inspired Oxygen 07/12/24 14:00 07/12/24 14:00 07/12/24 15:21 Temperature Pulse Rate 70 70 71 Respiratory Rate 16 16 Blood Pressure 120/52 L Pulse Oximetry Oxygen Delivery Fraction of Inspired Oxygen 07/12/24 15:24 07/12/24 15:43 07/12/24 16:00 Temperature 36.8 C Pulse Rate 71 71 71 Respiratory Rate 16 16 Blood Pressure 114/56 L Pulse Oximetry 94 96 Oxygen Delivery Mechanical Ventilation Fraction of Inspired Oxygen 50 07/12/24 16:00 07/12/24 16:00 07/12/24 16:00 Temperature Pulse Rate 70 Respiratory Rate 16 Blood Pressure Pulse Oximetry 96 Oxygen Delivery Mechanical Ventilation Fraction of Inspired Oxygen 50 50 07/12/24 16:00 07/12/24 16:00 07/12/24 16:00 Temperature Pulse Rate 70 70 72 Respiratory Rate 16 Blood Pressure 114/56 L Pulse Oximetry Oxygen Delivery Fraction of Inspired Oxygen 07/12/24 17:37 07/12/24 18:00 07/12/24 18:00 Temperature 36.7 C Pulse Rate 71 69 68 Respiratory Rate 16 Blood Pressure 111/56 L Pulse Oximetry 95 96 Oxygen Delivery Mechanical Ventilation Fraction of Inspired Oxygen 50 07/12/24 18:00 07/12/24 18:00 07/12/24 18:00 Temperature Pulse Rate 68 68 68 Respiratory Rate 16 16 Blood Pressure 111/56 L Pulse Oximetry Oxygen Delivery Fraction of Inspired Oxygen 07/12/24 20:00 07/12/24 20:00 07/12/24 20:00 Temperature Pulse Rate 67 67 Respiratory Rate 16 16 Blood Pressure Pulse Oximetry 95 Oxygen Delivery Mechanical Ventilation Fraction of Inspired Oxygen 50 07/12/24 20:00 07/12/24 20:00 07/12/24 20:00 Temperature 36.9 C Pulse Rate 67 67 Respiratory Rate 16 Blood Pressure 103/55 L Pulse Oximetry 95 Oxygen Delivery Fraction of Inspired Oxygen 50 07/12/24 20:00 07/12/24 20:20 07/12/24 21:10 Temperature Pulse Rate 67 71 68 Respiratory Rate 16 Blood Pressure 103/55 L Pulse Oximetry 97 Oxygen Delivery Mechanical Ventilation Fraction of Inspired Oxygen 50 07/12/24 21:15 07/12/24 22:00 07/12/24 22:00 Temperature Pulse Rate 72 72 72 Respiratory Rate 16 16 Blood Pressure Pulse Oximetry Oxygen Delivery Fraction of Inspired Oxygen 07/12/24 22:00 07/12/24 22:00 07/12/24 23:11 Temperature 36.6 C Pulse Rate 72 721 H 67 Respiratory Rate 6 L Blood Pressure 121/57 L Pulse Oximetry 95 95 Oxygen Delivery Mechanical Ventilation Fraction of Inspired Oxygen 50 07/13/24 00:00 07/13/24 00:00 07/13/24 00:00 Temperature Pulse Rate 68 68 Respiratory Rate 16 16 Blood Pressure Pulse Oximetry 95 Oxygen Delivery Mechanical Ventilation Fraction of Inspired Oxygen 50 07/13/24 00:00 07/13/24 00:00 07/13/24 00:00 Temperature 36.8 C Pulse Rate 68 68 Respiratory Rate 16 Blood Pressure 113/51 L Pulse Oximetry 95 Oxygen Delivery Fraction of Inspired Oxygen 50 07/13/24 02:00 07/13/24 02:00 07/13/24 02:00 Temperature 36.7 C Pulse Rate 70 70 70 Respiratory Rate 16 16 Blood Pressure 100/50 L Pulse Oximetry 93 Oxygen Delivery Fraction of Inspired Oxygen 07/13/24 02:00 07/13/24 02:30 07/13/24 02:31 Temperature Pulse Rate 70 67 67 Respiratory Rate 16 16 Blood Pressure Pulse Oximetry 92 Oxygen Delivery Mechanical Ventilation Fraction of Inspired Oxygen 50 07/13/24 02:35 07/13/24 04:00 07/13/24 04:00 Temperature Pulse Rate 67 72 72 Respiratory Rate 16 16 16 Blood Pressure Pulse Oximetry Oxygen Delivery Fraction of Inspired Oxygen 07/13/24 04:00 07/13/24 04:00 07/13/24 05:04 Temperature Pulse Rate 71 Respiratory Rate Blood Pressure Pulse Oximetry 95 94 Oxygen Delivery Mechanical Ventilation Mechanical Ventilation Fraction of Inspired Oxygen 50 50 50 Exam Const: General: cooperative, healthy appearing, comfortable, no acute distress, alert and awake HENMT: Head: normocephalic and atraumatic Ears: external ears normal and EAC's normal Face/Nose/Sinus: Normal external nose present and Normal nares present Mouth: Yes Normal oral and palatal mucosa present and Yes lip normal Other: previous tracheostomy scar Neck: Neck: normal visual inspection H&P: Results Labs Labs: Short CBC 07/13/24 Range/Units 05:44 WBC 18.3 H (4.5-10.0) K/mm3 Hgb 6.9 L* (12.0-15.0) g/dL Hct 22.2 L (37.0-47.0) % Plt Count 239 (150-375) k/mm3 BMP 07/13/24 05:44 Sodium 143 Potassium 4.5 Chloride 106 Carbon Dioxide 25 BUN 132 H D Creatinine 2.89 H Glucose 107 Calcium 8.8 Liver Function 07/13/24 Range/Units 05:44 Total Bilirubin 0.5 (0.2-1.3) mg/dL AST 39 H (14-36) U/L ALT 43 H (6-35) U/L Alkaline Phosphatase 108 (38-126) U/L Albumin 2.9 L (3.5-5.1) g/dL Assessment and Plan Assessment and plan (1) Endotracheally intubated: Code(s): Z97.8 - Presence of other specified devices Status: Acute Plan 78 yo F with respiratory failure intubated on 06/28/2024 admitted in ICU who needs tracheotomy
--- NOTE | 2024-07-13 07:19 | WPDHPUPDATE1 ---
History and Physical Update Update Date/Time: 07/13/24 07:19 History and Physical has been reviewed, including an updated exam of the patient. There are NO changes in the patient's condition. Risks, benefits, and alternatives have been discussed and questions answered. Patient agrees to proceed with procedure.
--- NOTE | 2024-07-13 07:20 | W.PM.PROC2 ---
Procedure Note - Detailed Date of Procedure 07/13/24 Pre-op Diagnosis COPD exacerbation, Orotracheal intubation Prolonged intubation Post-op Diagnosis Same Procedure Performed Tracheotomy Surgeon Codie Zhang MD Anesthesia General Findings scar tissue was seen in the skin ,fibrotic bleeding tissue was encountered during dissection covering the trachea Description of Procedure The patient was previously consented by family. They were then brought back to the OR and induced with anesthesia through the endotracheal tube. They were then transferred to the OR table. A shoulder roll was placed. Landmarks were palpated and marked. A timeout was performed. An 8-0 DCT cuffed shiley tracheostomy tube was selected and tested. The patient was prepped and drapped in the usual sterile fashion for an tracheotostomy. A horizontal incision was made along the marked line 1-2 cm above the suprasternal notch. Dissection was carried down in the midline through subcutaneous tissues using a hemostat and retraction by vein retractor and then [place] retractors. The strap muscles were identified and divided using a combination of blunt dissection through the median raphe and electrocautery. The thyroid isthmus was found to be already divided . The trachea was encountered. A cricoid hook was placed to stabilize and elevate the trachea. The tracheostomy tube was tested on the field and showed no leak. After confirmation with anesthesia and the staff respiratory therapist ensuring FiO2 was acceptable an #11 blade was used to make a horizontal incision into the trachea. Heavy scissors were used to make parallel vertical cuts laterally through the second ring. The endotracheal tube was pulled. The tracheostomy tube was placed and successfully hooked up the circuit. The airway was stabilized and verified by anesthesia. 0 2 silk stay suture was placed and taped to the skin.The cricoid/tracheal hook was carefully removed. The tracheotomy tube was then secured with 0 2 silk sutures placed at each corner of the trach tube and the underlying skin. A tracheal tie was then placed. This ended this portion of the procedure and care of the patient was returned to anesthesia who recovered him in the ICU. Estimated Blood Loss 5 (ml) Drains No Packing No Complications None Condition Stable Disposition ICU [facility] Billing Surgery - Charge Forward: Surgery Billing
[2024-07-13] MEDS: SODIUM CHLORIDE 0.9% IV 250 ML 30 ML IV CONT (07:30)
[2024-07-13] MEDS: AMIODARONE HCL 200 MG TABLET 400 MG PO ×2 (08:24→21:04)
[2024-07-13] MEDS: ATORVASTATIN 40 MG TABLET PO (08:24)
[2024-07-13] MEDS: PANTOPRAZOLE SODIUM IV 40 MG VIAL IV PUSH ×2 (08:24→21:04)
[2024-07-13] MEDS: ASPIRIN 81 MG CHEWABLE TABLET PO (08:24)
[2024-07-13] MEDS: CEFEPIME 1 GM/NS 50 ML 1 GM/50 ML BAG IVPB ×2 (08:25→21:04)
--- NOTE | 2024-07-13 08:39 | WPDANESEPPF ---
Anes - Initial Pre Proc Eval Procedure: Operation Date: 07/10/24 14:15 Proposed Procedures p Percutaneous Endoscopic Gastrostomy - Vicente Aparicio MD Operation Date: 07/13/24 07:30 Proposed Procedures p Tracheostomy - Codie Zhang MD Date/Time: 07/13/24 08:39 Surgeon: Marycarmen Wahl DO Pre Op Diagnosis: COPD exacerbation, Orotracheal intubation Patient Data Age: 78 Gender: F Height: 1.57 m Weight: 77.7 kg Last Vital Signs Temp 97.4 F L 07/13/24 08:16 Pulse 66 07/13/24 08:24 Resp 16 07/13/24 08:16 BP 115/75 07/13/24 08:16 Pulse Ox 96 07/13/24 08:16 O2 Del Method Mechanical Ventilation 07/13/24 08:00 FiO2 50 07/13/24 08:00 Allergies Allergy/AdvReac Type Severity Reaction Status Date / Time No Known Allergies Allergy Verified 06/29/24 08:19 Home Medications ?Medication ?Instructions ?Recorded ?Confirmed ?Type atorvastatin 40 mg tablet 40 mg PO DAILY 05/05/19 12/03/23 History aspirin 81 mg tablet,delayed 81 mg PO DAILY 05/06/19 12/03/23 History release calcium carbonate 600 mg PO BID 05/06/19 12/03/23 History levothyroxine 50 mcg tablet 50 mcg PO DAILY 05/06/19 12/03/23 History levalbuterol HCl 1.25 mg/3 mL 0.63 mg (1.512 mL) inhalation 10/04/23 12/03/23 Rx solution for nebulization Q6HRT PRN shortness of breath or wheezing #72 mL azithromycin 250 mg tablet 500 mg (2 x 250 mg) PO QMWF #36 12/03/23 12/03/23 Rx tabs budesonide 160 mcg-glycopyr 9 2 inh inhalation BID #32.1 grams 12/03/23 12/03/23 Rx mcg-formot 4.8 mcg/actuation HFA inhaler (Breztri Aerosphere) albuterol sulfate 90 mcg/actuation 2 puff inhalation Q4H PRN 01/21/24 Rx aerosol inhaler shortness of breath, wheezing #8.5 grams albuterol 90 mcg/actuation aerosol 90 mcg inhalation PRN 06/28/24 06/28/24 History inhaler atorvastatin 40 mg tablet (Lipitor) 40 mg PO DAILY 06/28/24 06/28/24 History azithromycin 250 mg tablet 500 mg PO .COMPLEX 06/28/24 06/28/24 History levothyroxine 50 mcg capsule 50 mcg PO DAILY 06/28/24 06/28/24 History Laboratory Tests 07/10/24 07/12/24 07/12/24 06:48 11:14 17:16 WBC RBC Hgb Hct MCV MCH MCHC RDW Plt Count MPV Immature Gran % (Auto) Neut % (Auto) Lymph % (Auto) [place] % (Auto) Eos % (Auto) Baso % (Auto) Lymph # (Auto) [place] # (Auto) Eos # (Auto) Baso # (Auto) Abs Immat Gran (auto) Absolute Neuts (auto) Absolute Nucleated RBC Nucleated RBC % Puncture Site ABG pH ABG pCO2 ABG pO2 ABG PO2/FiO2 Ratio ABG HCO3 ABG O2 Saturation ABG O2 Content ABG Base Excess A-a Gradient Oxyhemoglobin Carboxyhemoglobin Methemoglobin Reduced Hemoglobin Total Hemoglobin O2 Delivery Device O2 Liters/Min Minute Volume Vent Rate Vent Mode FiO2 Tidal Volume PEEP Peak Inspir Pressure Pressure Support Sodium Potassium Chloride Carbon Dioxide Anion Gap BUN Creatinine Estim Creat Clear Calc Estimated GFR Glucose POC Capillary Glucose 137 H mg/dl 124 H mg/dl (65-105) (65-105) Calcium Phosphorus Magnesium Total Bilirubin AST ALT Alkaline Phosphatase Total Protein Albumin Vancomycin Trough Blood Type O Positive Antibody Screen Negative Crossmatch See Detail 07/13/24 07/13/24 07/13/24 00:27 04:56 05:44 WBC 18.3 H K/mm3 (4.5-10.0) RBC 2.37 L M/mm3 (4.2-5.4) Hgb 6.9 L* g/dL (12.0-15.0) Hct 22.2 L % (37.0-47.0) MCV 93.7 fl (80-100) MCH 29.1 pg (26-34) MCHC 31.1 L g/dl (32-36) RDW 17.8 H % (11.5-14.5) Plt Count 239 k/mm3 (150-375) MPV 11.7 H fl (7.4-10.4) Immature Gran % (Auto) 1.1 H % (0-0.5) Neut % (Auto) 82.7 H % (45.5-73.1) Lymph % (Auto) 6.4 L % (18.3-44.2) [place] % (Auto) 8.3 % (2.6-8.5) Eos % (Auto) 1.4 % (0-4.4) Baso % (Auto) 0.1 L % (0.2-1.2) Lymph # (Auto) 1.17 K/mm3 (0.9-3.2) [place] # (Auto) 1.5 H K/mm3 (0.1-0.6) Eos # (Auto) 0.3 K/mm3 (0-0.3) Baso # (Auto) 0.0 K/mm3 (0.0-0.1) Abs Immat Gran (auto) 0.20 H K/mm3 (0.00-0.031) Absolute Neuts (auto) 15.1 H K/mm3 (1.3-6.7) Absolute Nucleated RBC 0.000 K/mm3 (0.0-0.012) Nucleated RBC % 0.0 % (0.0-0.2) Puncture Site Left radial ABG pH 7.347 L (7.350-7.450) ABG pCO2 49.6 H mmHg (35.0-45.0) ABG pO2 82.4 mmHg (80.0-100.0) ABG PO2/FiO2 Ratio 1.65 % ABG HCO3 26.6 H mEq/l (22.0-26.0) ABG O2 Saturation 95.5 % (95.0-100.0) ABG O2 Content 10.6 L %vol (16.0-22.0) ABG Base Excess 0.7 mEq/l (+/-2.0) A-a Gradient 218.3 mmHg Oxyhemoglobin 94.2 % THb (90.0-100.0) Carboxyhemoglobin 1.1 % THb (0-2.0) Methemoglobin 0.3 %THb (0-1.5) Reduced Hemoglobin 4.4 %THb (0-5.0) Total Hemoglobin 7.9 L g/dL (12.0-18.0) O2 Delivery Device Ventilator O2 Liters/Min Not Reportable Minute Volume Not Reportable Vent Rate 16 /MIN Vent Mode Cmv FiO2 50 % Tidal Volume 480 ml PEEP 8 cmH2O Peak Inspir Pressure Not Reportable Pressure Support Not Reportable Sodium 143 mmol/L (137-145) Potassium 4.5 mmol/L (3.4-5.0) Chloride 106 mmol/L (98-107) Carbon Dioxide 25 mmol/L (22-30) Anion Gap 12 mmol/L (4-12) BUN 132 H D mg/dL (7-17) Creatinine 2.89 H mg/dL (0.7-1.0) Estim Creat Clear Calc 15 ml/min Estimated GFR 19 L (59 - ) Glucose 107 mg/dL (65-110) POC Capillary Glucose 111 H mg/dl (65-105) Calcium 8.8 mg/dL (8.4-10.2) Phosphorus 6.0 H mg/dL (2.5-4.5) Magnesium 2.6 H mg/dL (1.6-2.3) Total Bilirubin 0.5 mg/dL (0.2-1.3) AST 39 H U/L (14-36) ALT 43 H U/L (6-35) Alkaline Phosphatase 108 U/L (38-126) Total Protein 5.0 L g/dL (6.3-8.2) Albumin 2.9 L g/dL (3.5-5.1) Vancomycin Trough 23.6 H ug/mL (10.0-20.0) Blood Type Antibody Screen Crossmatch Patient hx anesthesia problems: none Family hx anesthesia problems: none Results Review: All pre-operative results and documents have been reviewed as part of the pre-operative evaluation. FOR[facility]LY [facility] Past Medical History Medical History Occult blood in stools Acute on chronic anemia Diastolic dysfunction Grade 1 Diastolic dysfunction noted on echocardiogram from 2020 repeat echo in 2022 demonstrated EF of 70% with indeterminate diastolic function with mild pulmonary hypertension with RVSP of 38 Chronic respiratory failure with hypoxia and hypercapnia On home O2 of 3 L and nighttime PAP therapy Renal mass Lung nodule Hypothyroidism COPD (chronic obstructive pulmonary disease) CHERYL on CPAP History of tobacco use History of heart attack Elevated lipids Hypertension H/O vaginal delivery Thyroid disease Lung nodule Renal mass Essential hypertension Former smoker Quit 2018 with 54 pack per year history Hypothyroidism Coronary artery disease Hyperlipidemia Diastolic dysfunction With echocardiogram 2022 demonstrated EF is 70% mild pulmonary hypertension with RVSP of 38, prior echocardiogram 2020 demonstrated grade 1 diastolic dysfunction Obstructive sleep apnea on CPAP With 4 L of bleed in oxygen Chronic respiratory failure with hypoxia and hypercapnia Home O2 of 4 L Surgical History Surgical History Status post extracapsular cataract extraction of left eye History of total abdominal hysterectomy and bilateral salpingo-oophorectomy History of tubal ligation History of cholecystectomy History of tubal ligation History of total abdominal hysterectomy and bilateral salpingo-oophorectomy Hx of cholecystectomy Family History Family History Mother Hypertension Sibling Family history of malignant neoplasm of kidney Family history of lung cancer Lung disease Mother Hypertension Sibling Malignant neoplasm of kidney Lung cancer Social History Social History Social History: Currently lives with in [place]. They have been since 1965 Surrogate decisionmaker: William, . Full Code. Retired from [employer]. Patient has 3 children. Smoking packs per day: 1 Smoking cigarettes per day: 20.0 Years smoked: 54 Smoking pack-years: 54.00 Smoking status: Former smoker Tobacco type: cigarettes Smoking end date: 10/27/18 Alcohol intake: never Substance use: never Do You Feel Safe in your Home?: Yes Lack of Transportation: No Lack of Food: Never True Current Housing: I Have Housing Concerned About Future Housing: No Difficulty Paying Gas/Electric Bills: No Difficulty Paying for Meds: No Currently Unemployed: No Education: Decline to Answer Difficulty w/ Childcare or Family Care: No Living arrangements: with family Occupation/Education: retired Gender identity (if verbalized by the patient): Female Spiritual care concerns: No Anes - Eval Final PreProcedure Day of Procedure 07/13/24 08:39 Patient weight: obese Heart: regular rate and rhythm Lungs: normal air movement and decreased breath sounds Airway: other (ETT in place. ) Neurological: other (Sedated. ) Last oral intake: >/= 8 hours ASA classification: IV Emergent: no Anesthetic plan: proceed Anesthesia type and monitoring: general ETT and standard monitoring Results Review: All pre-operative results and documents have been reviewed as part of the pre-operative evaluation. Critically ill ICU pt, chart reviewed and discussed w ICU attending and ENT surgeon. Pt w chr anemia, will be transfused in ICU prior to surgery. Informed Consent: The patient's anesthetic plan and its attendant risks and benefits were discussed with the patient/family/POA. Questions were solicited and answers provided to the satisfaction of the patient/family/POA.
--- NOTE | 2024-07-13 08:49 | PC.NURSE ---
OR team present at bedside to transport patient to OR at 0841. Sedation paused. All vital signs stable in route to OR. This RN and RT accompanied patient to OR with OR team. Handed patient off at 0845 to anesthesia and remaining OR team. Patient care to resume in OR at this time. RN to be notified when procedure done.
[2024-07-13] MEDS: ceFAZolin SODIUM 1 GM VIAL 2 GM IV PUSH (09:04)
[2024-07-13] MEDS: LIDO 1%/EPINEPHRINE 1:100,000 50 ML VIAL INFILTRATE (09:25)
--- NOTE | 2024-07-13 10:33 | PC.NURSE ---
Patient arrived back from the OR at 1005, report received by KEMAR Barrios. Patient arrived with tracheostomy #8 Shiley, patient placed back on ventilator with previous ventilator settings in place. Vital signs obtained. RN to continue patient care.
[2024-07-13 10:52] LABS: Glucose Point of Care 104 mg/dl (65-105)
[2024-07-13 10:54] LABS: Hematocrit 28.9 % (37.0-47.0); Hemoglobin 9.3 g/dL (12.0-15.0); Mean Corpuscular HGB Conc 32.2 g/dl (32-36); Mean Corpuscular Hemoglobin 29.8 pg (26-34); Mean Corpuscular Volume 92.6 fl (80-100); Mean Platelet Volume 11.6 fl (7.4-10.4); Platelet Count Result 265 k/mm3 (150-375); Red Blood Count 3.12 M/mm3 (4.2-5.4); Red Cell Distribution Width 16.9 % (11.5-14.5); White Blood Count 21.9 K/mm3 (4.5-10.0)
[2024-07-13] MEDS: MINERAL OIL/WHITE PETROLATUM OINTMENT 1 APPLIC EACH EYE ×2 (11:19→21:05)
[2024-07-13 11:27] LABS: Glucose Point of Care 97 mg/dl (65-105)
--- NOTE | 2024-07-13 11:39 | P.PNNP_ITS ---
Progress Note: A&P Assessment and Plan (1) RASHEL (acute kidney injury): Code(s): N17.9 - Acute kidney failure, unspecified Status: Acute Assessment and Plan: * ongoing deterioration noted... * evaluation to date noted: * normal renal ultrasound * urine electrolytes prerenal (by FeUrea) * rare urine eosinophils (difficult to interpret given possible UTI) * CPK mildly elevated - follow trend * moderate proteinuria * etiology not clear but suspicion falls on: * possibly due to relative hypotension previously * intravascular volume depletion (?) * infection/sepsis * fluctuating hemodynamics * other (?) * continue to make good/reasonable urine output * she remains at risk for ANTIQUER/dialysis more so for clearance of the uremic toxins * I suppose her azotemia maybe related to her catabolic state... (2) Acute on chronic respiratory failure with hypoxia and hypercapnia: Code(s): J96.21 - Acute and chronic respiratory failure with hypoxia; J96.22 - Acute and chronic respiratory failure with hypercapnia Status: Acute Assessment and Plan: * presumably due to COPD exacerbation * complicated by known history of chronic hypoxic/hypercapnic respiratory failure and CHERYL * remains on ventilator support * s/p tracheostomy today (07/13) * weaned off steroids * ventilator weaning as tolerated (3) Shock: Code(s): R57.9 - Shock, unspecified Status: Acute Assessment and Plan: * fluctuating hemodynamics noted * hypotension on 07/11 evening despite IVF bolus requiring initiation of levophed * off vasopressor therapy at this time * culture data noted: * blood culture with no growth * sputum culture with yeast * urine culture with Karla * completed course of cefepime + vancomycin (4) Acute exacerbation of chronic obstructive pulmonary disease: Code(s): J44.1 - Chronic obstructive pulmonary disease with (acute) exacerbation Status: Acute Assessment and Plan: * presumed etiology of #2 * continue current therapy (5) Elevated troponin: Code(s): R77.8 - Other specified abnormalities of plasma proteins Status: Acute Assessment and Plan: * felt to be demand ischemia from acute respiratory failure * EKG noted * Cardiology recommendations noted * recent Echo noted (on 06/29): * left ventricular systolic function appears preserved * right ventricle is normal in size and systolic function. * small amount of pericardial effusion with no evidence of cardiac tamponade * ischemic evaluation when more stable (6) Atrial fibrillation with RVR: Code(s): I48.91 - Unspecified atrial fibrillation Status: Acute Assessment and Plan: * SVT noted on evening of 07/06 * s/p IV andenosine with underlying rhythm noted to be AFib RVR * converted to normal sinus rhythm with IV metoprolol x 1 * on 07/07, with weaning of sedation, patient went to AFib RVR again * now on amiodarone for rate control * on heparin drip * Cardiology following (7) Anemia: Code(s): D64.9 - Anemia, unspecified Status: Acute Assessment and Plan: * due to RASHEL and acute illness * however, hemooccult positive * GI recommendations noted * anemia studies without iron deficiency * normal folate * low B12 noted -- IM B12 given * on PPI * PRBC transfusion per protocol * consider REMI given RASHEL... * follow trend of H/H (8) Elevated LFTs: Code(s): R79.89 - Other specified abnormal findings of blood chemistry Status: Acute Assessment and Plan: * noted on testing since 07/03 * RUQ u/s was normal - status post cholecystectomy * hepatitis panel normal * slow improvement Discussed case with Dr. Toney. Will continue to follow. L Subjective Date/time seen: 07/13/24 11:39 Interval history: Follow-up for acute kidney injury/acute renal failure. Chart reviewed since last seen -- s/p tracheostomy earlier this morning and tolerated this intervention reasonably well; drop in H/H noted by AM labs and s/p PRBC transfusion; renal function/creatinine & BUN continues to worsen despite reasonable urine output; remains on mechanical ventilation via tracheostomy with stable hemodynamics. Exam 2 Narrative: General: elderly but WD/WN female on mechanical ventilation via tracheostomy Heart: normal S1 and S2; no rub Lungs: coarse breath sounds Abdomen: soft, nontender, nondistended, decreased bowel sounds Extremities: no cyanosis or clubbing; no edema Skin: warm and dry Objective Data Vital Signs Vital Signs: Vital Signs Temp Pulse Resp BP Pulse Ox O2 Del Method FiO2 07/13/24 11:14 71 94 Mechanical Ventilation 55 07/13/24 10:05 55 07/13/24 10:05 71 16 07/13/24 10:05 71 16 07/13/24 10:00 72 07/13/24 10:00 71 21 H 126/48 L 95 07/13/24 08:41 65 16 07/13/24 08:41 65 16 07/13/24 08:41 97.4 F L 65 16 115/75 96 07/13/24 08:24 66 07/13/24 08:16 97.4 F L 65 16 115/75 96 07/13/24 08:00 65 07/13/24 08:00 65 16 07/13/24 08:00 65 16 07/13/24 08:00 96 Mechanical Ventilation 50 07/13/24 08:00 50 07/13/24 08:00 97.5 F L 65 16 113/64 96 07/13/24 07:35 97.6 F 67 16 121/67 96 07/13/24 07:20 97.7 F 68 16 113/63 94 07/13/24 07:00 66 16 07/13/24 07:00 66 16 07/13/24 06:00 79 14 140/93 H 95 07/13/24 06:00 79 07/13/24 05:04 71 94 Mechanical Ventilation 50 07/13/24 04:00 98.5 F 71 16 118/55 L 95 07/13/24 04:00 71 07/13/24 04:00 50 07/13/24 04:00 95 Mechanical Ventilation 50 07/13/24 04:00 72 16 07/13/24 04:00 72 16 07/13/24 02:35 67 16 07/13/24 02:31 67 92 Mechanical Ventilation 50 07/13/24 02:30 67 16 07/13/24 02:00 70 16 07/13/24 02:00 70 16 07/13/24 02:00 98.1 F 70 16 100/50 L 93 07/13/24 02:00 70 07/13/24 00:00 68 07/13/24 00:00 98.3 F 68 16 113/51 L 95 07/13/24 00:00 50 07/13/24 00:00 95 Mechanical Ventilation 50 07/13/24 00:00 68 16 07/13/24 00:00 68 16 07/12/24 23:11 67 95 Mechanical Ventilation 50 07/12/24 22:00 97.9 F 721 H 6 L 121/57 L 95 07/12/24 22:00 72 07/12/24 22:00 72 16 07/12/24 22:00 72 16 07/12/24 21:15 72 07/12/24 21:10 68 16 07/12/24 20:20 71 97 Mechanical Ventilation 50 07/12/24 20:00 67 103/55 L 07/12/24 20:00 50 07/12/24 20:00 98.5 F 67 16 103/55 L 95 07/12/24 20:00 67 07/12/24 20:00 95 Mechanical Ventilation 50 07/12/24 20:00 67 16 07/12/24 20:00 67 16 Intake/Output Intake/Output: Intake & Output 07/10/24 07/11/24 07/12/24 07/13/24 23:59 23:59 23:59 23:59 Intake Total 1880.9 2474.7 1874.5 1564.5 Output Total 450 1300 875 700 Balance 1430.9 1174.7 999.5 864.5 Meds/Results Medications: Active Medications Generic Name Dose Route Start Last Admin Trade Name Freq PRN Reason Stop Dose Admin Albuterol/Ipratropium 3 ml 06/29/24 02:00 07/13/24 14:35 Ipratropium 0.5 Mg/Albuterol Sulfate 2.5 Mg Ampul.Neb 3 Ml INHALATION 3 ml Q6HRT BARBARA Administration Amiodarone HCl 400 mg 07/09/24 12:20 07/13/24 08:24 Amiodarone Hcl 200 Mg Tablet PO 400 mg Q12HR BARBARA Administration Aspirin 81 mg 07/01/24 08:00 07/13/24 08:24 Aspirin 81 Mg Chewable Tablet PO 81 mg DAILY@0800 BARBARA Administration Atorvastatin Calcium 40 mg 06/29/24 09:00 07/13/24 08:24 Atorvastatin 40 Mg Tablet PO 40 mg DAILY BARBARA Administration Cyanocobalamin 1,000 mcg 07/07/24 12:00 07/07/24 13:35 Cyanocobalamin Inj 1,000 Mcg/Ml Vial IM 07/14/24 09:01 1,000 mcg WEEKLY BARBARA Administration Dextrose 12.5 gm 06/29/24 08:08 Dextrose 50% 25 Gm/50 Ml Syringe IV PUSH PRN PRN Hypoglycemia Protocol Glucagon 1 mg 06/29/24 08:08 Glucagon For Inj 1 Mg Vial IM PRN PRN Hypoglycemia Protocol Glucose 15 gm 06/29/24 08:08 Glucose Oral Gel 15 Gm Of Glucse In 37.5 Gm Tube PO PRN PRN Hypoglycemia Protocol Heparin Sodium (Porcine) 5,000 units 07/07/24 11:24 Heparin Sodium 5,000 Units/Ml Vial IV PUSH PRN PRN aPTT less than 55 seconds Heparin Sodium (Porcine) 2,500 units 07/07/24 11:24 07/09/24 07:21 Heparin Sodium 5,000 Units/Ml Vial IV PUSH 2,500 units PRN PRN Administration aPTT 55 - 70 seconds Hydralazine HCl 10 mg 07/06/24 16:42 07/06/24 17:03 Hydralazine Hcl 20 Mg/Ml Vial IV PUSH 10 mg Q4H PRN Administration Blood Pressure - High Dextrose 1,000 mls @ 100 mls/hr 06/29/24 08:08 Dextrose 5% 1,000 Ml IVPB PRN PRN Hypoglycemia Protocol Heparin Sodium/Dextrose 25,000 units in 250 mls @ 0 mls/hr 07/07/24 11:25 07/10/24 08:52 Heparin Sodium/D5w 100 Units/Ml IV CONT 0 units/hr .Q0M BARBARA 0 mls/hr Titration Protocol Cefepime HCl 1 gm in 50 mls @ 100 mls/hr 07/08/24 11:00 07/13/24 08:55 Maxipime 1 Gm/Ns 50 Ml IVPB 07/15/24 10:59 Infused Q12HR [facility] Infusion Dexmedetomidine HCl 400 mcg in 100 mls @ 3.885 mls/hr 07/13/24 16:00 Precedex 400 Mcg/100 Ml IV CONT .[id number] [facility] Protocol 0.2 MCG/KG/HR Insulin Aspart 3 - 6 units 06/29/24 12:00 07/13/24 17:23 Insulin Aspart (*Bkc) 100 Units/Ml SUB-Q Not Given Q6HR [facility] Protocol Insulin Glargine 8 units 07/06/24 09:00 07/13/24 12:59 Insulin Glargine (*Bkc) 100 Units/Ml SUB-Q 8 units DAILY BARBARA Administration Levothyroxine Sodium 50 mcg 06/30/24 06:30 07/13/24 04:02 Levothyroxine Sodium 50 Mcg Tablet FEED TUBE Not Given DAILY@0630 [facility] Multi-Ingred Cream/Lotion/Oil/Oint 1 applic 06/29/24 09:00 07/13/24 11:19 Mineral Oil/White Petrolatum Ointment EACH EYE 1 applic Q12HR BARBARA Administration Pantoprazole Sodium 40 mg 07/06/24 21:00 07/13/24 08:24 Pantoprazole Sodium Iv 40 Mg Vial IV PUSH 40 mg Q12HR BARBARA Administration Sodium Chloride 10 ml 06/29/24 14:00 07/13/24 13:00 Central Line Flush IV PUSH 10 ml Q8HR BARBARA Administration Sodium Chloride 10 ml 06/29/24 12:40 Central Line Flush IV PUSH PRN PRN with TPN bag changes Sodium Chloride 20 ml 06/29/24 12:40 Central Line Flush IV PUSH PRN PRN after blood draws Vancomycin HCl 1 each 07/08/24 10:48 Vancomycin For Acute Kidney Injury IVPB 07/15/24 10:47 PRN PRN Vancomycin Protocol Radiology Results: ITS Impressions Abdomen X-Ray 06/28/24 20:03 IMPRESSION: Nasogastric tube in good position and ready for immediate use. Abdomen Ultrasound 07/03/24 14:12 IMPRESSION: 1. Normal right upper quadrant ultrasound status post cholecystectomy. Renal Ultrasound 07/06/24 08:30 IMPRESSION: 1. No hydronephrosis in either kidney. Head CT 07/08/24 10:08 IMPRESSION: 1. No acute intracranial process. 2. 8 mm calcified extra-axial mass overlying the left parietal lobe most consistent with a meningioma. Chest X-Ray 07/13/24 13:54 Impression: COPD pattern of the lungs. Probable small pleural effusions and mild bibasilar pulmonary edema. Tracheostomy cannula and right-sided PICC line in place. Labs Labs: Laboratory Tests 07/13/24 05:44 07/13/24 05:44 WBC 18.3 H Hgb 6.9 L* Hct 22.2 L Plt Count 239 Calcium 8.8 Phosphorus 6.0 H Magnesium 2.6 H Total Bilirubin 0.5 AST 39 H ALT 43 H Alkaline Phosphatase 108 Total Protein 5.0 L Albumin 2.9 L Vancomycin Trough 23.6 H Microbiology 07/11/24 11:44 Urine [place] Urine Culture - Final Karla albicans
--- NOTE | 2024-07-13 12:15 | PCFNICU ---
ICU Rounding Note: Pt current nutrition is NPO. Nutrition recommendation: Nepro at 40 ml/hr with Ish BID. Last recorded weight is 77.7 kg, up from admit weight of 64.3 kg. Bowel Motility: +BM reported 07/10 Labs Reviewed: Mg 2.6, GFR 19, BUN 132, Cr 2.89, Alb 2.9, Hgb 6.9, Hct 22.2 Meds Noted: Protonix, Lantus, NovoLog,NS Skin: Deep Tissue-Coccyx Additional Notes: Patient had Trach placed today. PEG 07/10. Patient is currently NPO with plans to restart tube feedings of Nepro at 40 ml/hr. Would recommend adding Ish BID for wound healing. Nephrology following, renal labs elevated. Agree with diet orders. Following daily in ICU rounds. Will monitor weight, labs, skin, diet orders, meds, tube feedings tolerance every Saturday and Saturday .
--- NOTE | 2024-07-13 12:46 | WPDINTPN ---
Progress Note: A&P Assessment and Plan (1) Atrial fibrillation with RVR: Code(s): I48.91 - Unspecified atrial fibrillation Status: Acute Assessment and Plan: 07/06 evening: Patient went into SVT, status post tenderness and 6 mg and 12 mg, underlying rhythm was AFib RVR, converted to normal sinus rhythm with IV metoprolol x1 and increasing her sedation. Patient remained in sinus rhythm also the morning of 07/07/2024. 07/07: Started weaning her sedation again today, patient went to AFib RVR, -hold heparin infusion due to drop in hemoglobin coffee-ground emesis -07/06; TSH level within normal limits, troponin level with no change since admission -EKG showed AFib RVR, discussed with cardiology, 07/08: In the evening patient went into AFib RVR again, requiring an amiodarone bolus, increased amiodarone infusion to 1 mg/min. Patient dropped her blood pressures and heart rate so amiodarone infusion was held. Patient was started on Robert-Synephrine. 07/09: Patient was hypertensive, Orbert-Synephrine was discontinued. Cardiology recommended starting p.o. amiodarone which was ordered. Also recommended metoprolol which currently have not started because borderline blood pressures and she just came off Robert-Synephrine 07/10: Currently in sinus rhythm rate controlled. Cardiology aware that she was anemic and dropped her hemoglobin on 07/10/2024. Heparin infusion was discontinued due to anemia and drop in hemoglobin 07/13: Currently in sinus rhythm, rate control, remains on p.o. amiodarone, off heparin infusion due to anemia. Cardiology aware (2) Acute on chronic respiratory failure with hypoxia and hypercapnia: Code(s): J96.21 - Acute and chronic respiratory failure with hypoxia; J96.22 - Acute and chronic respiratory failure with hypercapnia Status: Acute Assessment and Plan: Acute on chronic respiratory failure secondary to severe COPD exacerbation. Community-acquired pneumonia although chest x-ray is not suggestive and patient is low procalcitonin level. WBC elevated MRSA screen negative 06/28/2024: Intubated in the ED 06/28: Blood cultures negative x2 -status post says 8 days of ceftriaxone -status post 5 days of doxycycline -DC vancomycin (06/29), MRSA screen negative 07/02: Patient did have high peak pressures, after switching her from propofol to fentanyl and Versed due to elevated triglycerides. She was started on Nimbex infusion which improved her oxygenation, respiratory status and improved air entry. 07/03: Remains on Nimbex, adequate air entry, peak pressures are within normal limits continue fentanyl Versed infusion for now, will start weaning Nimbex, will maintain RASS of 0 to -2 on sedation meds 07/04: Chest x-ray, ABGs reviewed, ventilator adjusted, increased respiratory rate 22 and increased FiO2 to 45%, maintain O2 sats greater than 90%. Have also asked the bedside RN to start weaning the Nimbex to off -07/05: Patient has prolonged expiratory phase, decrease respiratory rate, increased I to E ratio, increased tidal volume. Will repeat ABGs -Continue bronchodilators, -off Solu-Medrol -07/05 and 07/06: off all sedation, will try to place patient on SBT when she is more awake. If she requires any kind of sedation will start Precedex infusion. Patient did not tolerate being off on sedation and went into SVT and AFib RVR. Once sedation was placed back on patient converted to sinus rhythm with regular rate. 07/07: Sedation was weaned again this morning, patient was started on Precedex infusion site could place her on a a breathing trial to evaluate for extubation. Patient again went into AFib RVR, sedation was reinstated 07/08: Tolerating mechanical ventilation, ABGs look good, chest x-ray shows worsening haziness in left lung base, likely developing pneumonia. Patient is WBC count has increased to 20,000, will obtain blood cultures, start cefepime and vancomycin of possible ventilator associated pneumonia 07/09: discussed with William, updated him with patient's condition and plan of care. I discussed with him 6 worsening chest x-ray, possible developing pneumonia with elevated WBC 6. That she would require tracheostomy and PEG tube placement to which she was agreeable, he stated will have to do everything to keep her alive. -Tracheostomy tube scheduled for 07/13/2024: Consulted Dr. Zhang, [phone] (cell), discussed with him regarding tracheostomy for the patient. -07/10: PEG tube was placed by GI 07/12: Remains on CMV mode, ABGs look good. Chest x-ray reviewed. Scheduled for tracheostomy tomorrow 07/13. 07/13: Patient received a tracheostomy this morning periods remains on CMV mode of ventilation, she still under the influence of anesthesia and sedation medications, will start daily weaning trials (3) Acute exacerbation of chronic obstructive pulmonary disease: Code(s): J44.1 - Chronic obstructive pulmonary disease with (acute) exacerbation Status: Acute Assessment and Plan: Continue mechanical ventilation, bronchodilators, antibiotics, -patient has previous tracheostomy scar likely related to COPD exacerbation (4) Elevated troponin: Code(s): R77.8 - Other specified abnormalities of plasma proteins Status: Acute Assessment and Plan: Patient has elevated troponin likely secondary to demand ischemia from acute respiratory failure. EKG reviewed and does not show any ST elevation. Patient does not have any documented history of coronary disease. Troponins trending down Continue daily statin -HOLD ASPIRIN DUE TO ANEMIA Appreciate cardiology evaluation and recommendation 06/29/2024: Echocardiogram Summary 1. The left ventricle is normal in size with thickened left ventricular rodríguez. The overall left ventricular systolic function appears preserved. Cannot rule out very mild hypokinesis of the apical wall. 2. The right ventricle is normal in size and systolic function. 3. The there is a small amount of pericardial effusion with no echocardiographic evidence of cardiac tamponade. (5) Hypothyroidism: Code(s): E03.9 - Hypothyroidism, unspecified Status: Acute Assessment and Plan: Continue levothyroxine. -07/06: TSH level - within normal limits (6) Electrolyte abnormality: Code(s): E87.8 - Other disorders of electrolyte and fluid balance, not elsewhere classified Status: Acute Assessment and Plan: Potassium levels within normal limits -appreciate Nephrology evaluation and recommendations (7) Elevated LFTs: Code(s): R79.89 - Other specified abnormal findings of blood chemistry Status: Acute Assessment and Plan: Right upper quadrant ultrasound was normal, status post cholecystectomy -hepatitis panel was within normal limit (8) RASHEL (acute kidney injury): Code(s): N17.9 - Acute kidney failure, unspecified Status: Acute Assessment and Plan: Acute kidney injury, likely related to hypotension, intravascular volume depletion, BUN elevated likely related to steroids -nephrology has been consulted and appreciate the evaluation and recommendation -discuss with Nephrology, will start albumin 25% x4 doses since she may be intravascularly depleted -monitor urine output, renal function electrolytes 07/06: Renal ultrasound: No hydronephrosis in either kidney. -urine lytes not reflective of prerenal picture -CKD levels elevated to 813 07/07: Patient may more urine overnight, creatinine trending down. Discuss with Nephrology, will give 1 L IV fluids over 10 hours 07/08: Urine output has improved, creatinine trending down. Low potassium levels will replete due to AFib RVR 07/09: Urine output is adequate, creatinine increased likely related to hypotension, AFib RVR. Will continue to monitor nephrology also following. Potassium levels are normal 07/11: Creatinine continues to increase, patient had some obstruction of her Goddard catheter which could also be a cause. Once Goddard was flushed she had adequate urine output. Have asked the bedside RN to replace the Goddard catheter 07/13: BUN creatinine continue to rise, patient continues to make urine output. Discussed with Nephrology, given that she had a procedure today he would hold the dialysis catheter for now. Patient may require dialysis in the next day or so (9) Hyperglycemia: Code(s): R73.9 - Hyperglycemia, unspecified Status: Acute Assessment and Plan: Hyperglycemia likely related to tube feeds and or steroid -weaning steroid -continue Accu-Cheks and sliding scale insulin, -continue Lantus. (10) Anemia: Code(s): D64.9 - Anemia, unspecified Status: Acute Assessment and Plan: Patient dropped her hemoglobin to 8.3 from 10.9 (07/05) -07/06/2024: Stool occult was positive -iron panel did not show any iron deficiency, normal folate level -low vitamin B12 level, will give IM cyanocobalamin weekly x2 doses -continue Protonix to IV q.12 hours -appreciate GI evaluation , no endoscopy recommended at this time -hemoglobin remains stable 07/10: Patient dropped hemoglobin to 6.7 again, received 1 unit of packed RBCs. Heparin infusion was discontinued (which was for new onset atrial fibrillation RVR). -hemoglobin stable, continue monitor 07/13: Hemoglobin dropped to 6.9 this morning, transfused 1 unit of packed RBCs, continue to monitor (11) Encephalopathy: Code(s): G93.40 - Encephalopathy, unspecified Status: Acute Assessment and Plan: Patient opens her eyes but does not follow simple commands, upper extremities are flaccid, pupils are equal and reactive, patient grimaces to pain but does not withdraw to pain stimulus -07/08: stat CT scan of the brain: 1. No acute intracranial process.2. 8 mm calcified extra-axial mass overlying the left parietal lobe most consistent with a meningioma. -ammonia level <9 -continue to monitor () Shock: Code(s): R57.9 - Shock, unspecified Status: Acute Assessment and Plan: 07/11: Patient with hypotension overnight, given IV fluid bolus. Started on Levophed, maintain MAP > 65 mmHg for adequate end organ perfusion especially renal perfusion -continue cefepime and vancomycin (07/08) for a total of 7 days -07/08: Blood cultures with no growth x2 -07/08: Sputum culture growing yeast 07/13: Levophed has been turned off on 07/11 at 4:00 p.m. . Blood pressures have been adequate, continue to monitor Plan DVT prophylaxis -SCDs, no chemoprophylaxis due to anemia requiring blood transfusion Stress ulcer prophylaxis -PPI IV q.12 hours Nutrition -tolerating tube feeds Code Status - Full Code Total Critical Care Time - 33 minutes -discussed with Nephrology and Cardiology Have been discussing daily with William and updating him with patient's condition and plan of care. Due to a high probability of clinically significant, life threatening deterioration, the patient required my highest level of preparedness to intervene emergently and I personally spent this critical care time directly and personally managing the patient. This critical care time included obtaining a history; examining the patient; pulse oximetry; ordering and review of studies; arranging urgent treatment with development of a management plan; evaluation of patient's response to treatment; frequent reassessment; and discussions with other providers. It was exclusive of separately billable procedures and treating other patients and teaching time. Please see Assessment and Plan section and the rest of the note for further information on patient assessment and treatment This dictation may have been done utilizing a voice recognition system. Attempts have been made to correct errors. However, there may be uncorrected grammatical, spelling, and recognitions errors present. Subjective Date/time seen: 07/13/24 12:46 Interval history: Reason for consult: COPD exacerbation, acute hypercapnic respiratory failure, NSTEMI with elevated troponin 07/08: CT brain was negative, was done for encephalopathy 07/10: PEG tube placement by GI 07/13: Tracheostomy placed by ENT 07/13/2024: Patient seen and examined the ICU, remains intubated on CMV mode of ventilation, peep of 5 and 50% FiO2, patient did go to the OR and tracheostomy was placed by ENT. Patient also dropped hemoglobin to 6.9 this morning, 1 unit of packed RBCs was transfused, repeat CBC pending. Patient has been having adequate urine output, BUN/creatinine continue to worsen. Patient opens her eyes but and withdraws to pain in all extremities. No issues overnight. Tube feeds on hold for the procedure this morning. Afebrile Review of Systems Review of Systems: ROS unobtainable: Yes unobtainable due to endotracheal tube, unobtainable due to medical condition and unobtainable due to mental status Exam Narrative: General: Pt is sedated and intubated and on mechanical ventilation HEENT: Pupils equal and reactive, sclera is clear, ETT in place Lungs/Chest: Trachea central, adequate air entry, coarse breath sounds at bases, no wheezing., rales noted on left lower lobe Cardiac: Sinus rhythm, rate controlled Abdomen: Decreased bowel sounds. Nontender, nondistended Obese. Soft. . PEG in place Extremities: Positive edema, anasarca up to the thighs : Goddard in place Neurologic: Intubated, sedated opens her eyes but does not follow simple commands, grimaces to pain but does not withdraw. Objective Data Vital Signs Vital Signs: Vital Signs - 24 hr 07/12/24 14:00 07/12/24 14:00 07/12/24 14:00 Temperature 98.3 F Pulse Rate 70 70 70 Respiratory Rate 16 16 Blood Pressure 120/52 L Pulse Oximetry 95 Oxygen Delivery Fraction of Inspired Oxygen 07/12/24 14:00 07/12/24 14:00 07/12/24 15:21 Temperature Pulse Rate 70 70 71 Respiratory Rate 16 16 Blood Pressure 120/52 L Pulse Oximetry Oxygen Delivery Fraction of Inspired Oxygen 07/12/24 15:24 07/12/24 15:43 07/12/24 16:00 Temperature 98.2 F Pulse Rate 71 71 71 Respiratory Rate 16 16 Blood Pressure 114/56 L Pulse Oximetry 94 96 Oxygen Delivery Mechanical Ventilation Fraction of Inspired Oxygen 50 07/12/24 16:00 07/12/24 16:00 07/12/24 16:00 Temperature Pulse Rate 70 Respiratory Rate 16 Blood Pressure Pulse Oximetry 96 Oxygen Delivery Mechanical Ventilation Fraction of Inspired Oxygen 50 50 07/12/24 16:00 07/12/24 16:00 07/12/24 16:00 Temperature Pulse Rate 70 70 72 Respiratory Rate 16 Blood Pressure 114/56 L Pulse Oximetry Oxygen Delivery Fraction of Inspired Oxygen 07/12/24 17:37 07/12/24 18:00 07/12/24 18:00 Temperature 98.1 F Pulse Rate 71 69 68 Respiratory Rate 16 Blood Pressure 111/56 L Pulse Oximetry 95 96 Oxygen Delivery Mechanical Ventilation Fraction of Inspired Oxygen 50 07/12/24 18:00 07/12/24 18:00 07/12/24 18:00 Temperature Pulse Rate 68 68 68 Respiratory Rate 16 16 Blood Pressure 111/56 L Pulse Oximetry Oxygen Delivery Fraction of Inspired Oxygen 07/12/24 20:00 07/12/24 20:00 07/12/24 20:00 Temperature Pulse Rate 67 67 Respiratory Rate 16 16 Blood Pressure Pulse Oximetry 95 Oxygen Delivery Mechanical Ventilation Fraction of Inspired Oxygen 50 07/12/24 20:00 07/12/24 20:00 07/12/24 20:00 Temperature 98.5 F Pulse Rate 67 67 Respiratory Rate 16 Blood Pressure 103/55 L Pulse Oximetry 95 Oxygen Delivery Fraction of Inspired Oxygen 50 07/12/24 20:00 07/12/24 20:20 07/12/24 21:10 Temperature Pulse Rate 67 71 68 Respiratory Rate 16 Blood Pressure 103/55 L Pulse Oximetry 97 Oxygen Delivery Mechanical Ventilation Fraction of Inspired Oxygen 50 07/12/24 21:15 07/12/24 22:00 07/12/24 22:00 Temperature Pulse Rate 72 72 72 Respiratory Rate 16 16 Blood Pressure Pulse Oximetry Oxygen Delivery Fraction of Inspired Oxygen 07/12/24 22:00 07/12/24 22:00 07/12/24 23:11 Temperature 97.9 F Pulse Rate 72 721 H 67 Respiratory Rate 6 L Blood Pressure 121/57 L Pulse Oximetry 95 95 Oxygen Delivery Mechanical Ventilation Fraction of Inspired Oxygen 50 07/13/24 00:00 07/13/24 00:00 07/13/24 00:00 Temperature Pulse Rate 68 68 Respiratory Rate 16 16 Blood Pressure Pulse Oximetry 95 Oxygen Delivery Mechanical Ventilation Fraction of Inspired Oxygen 50 07/13/24 00:00 07/13/24 00:00 07/13/24 00:00 Temperature 98.3 F Pulse Rate 68 68 Respiratory Rate 16 Blood Pressure 113/51 L Pulse Oximetry 95 Oxygen Delivery Fraction of Inspired Oxygen 50 07/13/24 02:00 07/13/24 02:00 07/13/24 02:00 Temperature 98.1 F Pulse Rate 70 70 70 Respiratory Rate 16 16 Blood Pressure 100/50 L Pulse Oximetry 93 Oxygen Delivery Fraction of Inspired Oxygen 07/13/24 02:00 07/13/24 02:30 07/13/24 02:31 Temperature Pulse Rate 70 67 67 Respiratory Rate 16 16 Blood Pressure Pulse Oximetry 92 Oxygen Delivery Mechanical Ventilation Fraction of Inspired Oxygen 50 07/13/24 02:35 07/13/24 04:00 07/13/24 04:00 Temperature Pulse Rate 67 72 72 Respiratory Rate 16 16 16 Blood Pressure Pulse Oximetry Oxygen Delivery Fraction of Inspired Oxygen 07/13/24 04:00 07/13/24 04:00 07/13/24 04:00 Temperature Pulse Rate 71 Respiratory Rate Blood Pressure Pulse Oximetry 95 Oxygen Delivery Mechanical Ventilation Fraction of Inspired Oxygen 50 50 07/13/24 04:00 07/13/24 05:04 07/13/24 06:00 Temperature 98.5 F Pulse Rate 71 71 79 Respiratory Rate 16 Blood Pressure 118/55 L Pulse Oximetry 95 94 Oxygen Delivery Mechanical Ventilation Fraction of Inspired Oxygen 50 07/13/24 06:00 07/13/24 07:00 07/13/24 07:00 Temperature Pulse Rate 79 66 66 Respiratory Rate 14 16 16 Blood Pressure 140/93 H Pulse Oximetry 95 Oxygen Delivery Fraction of Inspired Oxygen 07/13/24 07:20 07/13/24 07:35 07/13/24 08:00 Temperature 97.7 F 97.6 F 97.5 F L Pulse Rate 68 67 65 Respiratory Rate 16 16 16 Blood Pressure 113/63 121/67 113/64 Pulse Oximetry 94 96 96 Oxygen Delivery Fraction of Inspired Oxygen 07/13/24 08:00 07/13/24 08:00 07/13/24 08:00 Temperature Pulse Rate 65 Respiratory Rate 16 Blood Pressure Pulse Oximetry 96 Oxygen Delivery Mechanical Ventilation Fraction of Inspired Oxygen 50 50 07/13/24 08:00 07/13/24 08:00 07/13/24 08:16 Temperature 97.4 F L Pulse Rate 65 65 65 Respiratory Rate 16 16 Blood Pressure 115/75 Pulse Oximetry 96 Oxygen Delivery Fraction of Inspired Oxygen 07/13/24 08:24 07/13/24 08:41 07/13/24 08:41 Temperature 97.4 F L Pulse Rate 66 65 65 Respiratory Rate 16 16 Blood Pressure 115/75 Pulse Oximetry 96 Oxygen Delivery Fraction of Inspired Oxygen 07/13/24 08:41 07/13/24 10:00 07/13/24 10:00 Temperature Pulse Rate 65 71 72 Respiratory Rate 16 21 H Blood Pressure 126/48 L Pulse Oximetry 95 Oxygen Delivery Fraction of Inspired Oxygen 07/13/24 10:05 07/13/24 10:05 07/13/24 11:14 Temperature Pulse Rate 71 71 71 Respiratory Rate 16 16 Blood Pressure Pulse Oximetry 94 Oxygen Delivery Mechanical Ventilation Fraction of Inspired Oxygen 55 07/13/24 12:00 Temperature 97.5 F L Pulse Rate 72 Respiratory Rate 17 Blood Pressure 130/50 L Pulse Oximetry 93 Oxygen Delivery Fraction of Inspired Oxygen Intake/Output Intake/Output: Intake & Output 07/10/24 07/11/24 07/12/24 07/13/24 23:59 23:59 23:59 23:59 Intake Total 1880.9 2474.7 1874.5 924.5 Output Total 450 1300 875 375 Balance 1430.9 1174.7 999.5 549.5 Meds/Results Medications: Active Medications Generic Name Dose Route Start Last Admin Trade Name Freq PRN Reason Stop Dose Admin Albuterol/Ipratropium 3 ml 06/29/24 02:00 07/13/24 08:47 Ipratropium 0.5 Mg/Albuterol Sulfate 2.5 Mg Ampul.Neb 3 Ml INHALATION Not Given Q6HRT [facility] Amiodarone HCl 400 mg 07/09/24 12:20 07/13/24 08:24 Amiodarone Hcl 200 Mg Tablet PO 400 mg Q12HR [facility] Administration Aspirin 81 mg 07/01/24 08:00 07/13/24 08:24 Aspirin 81 Mg Chewable Tablet PO 81 mg DAILY@0800 [facility] Administration Atorvastatin Calcium 40 mg 06/29/24 09:00 07/13/24 08:24 Atorvastatin 40 Mg Tablet PO 40 mg DAILY [facility] Administration Cyanocobalamin 1,000 mcg 07/07/24 12:00 07/07/24 13:35 Cyanocobalamin Inj 1,000 Mcg/Ml Vial IM 07/14/24 09:01 1,000 mcg WEEKLY [facility] Administration Dextrose 12.5 gm 06/29/24 08:08 Dextrose 50% 25 Gm/50 Ml Syringe IV PUSH PRN PRN Hypoglycemia Protocol Glucagon 1 mg 06/29/24 08:08 Glucagon For Inj 1 Mg Vial IM PRN PRN Hypoglycemia Protocol Glucose 15 gm 06/29/24 08:08 Glucose Oral Gel 15 Gm Of Glucse In 37.5 Gm Tube PO PRN PRN Hypoglycemia Protocol Heparin Sodium (Porcine) 5,000 units 07/07/24 11:24 Heparin Sodium 5,000 Units/Ml Vial IV PUSH PRN PRN aPTT less than 55 seconds Heparin Sodium (Porcine) 2,500 units 07/07/24 11:24 07/09/24 07:21 Heparin Sodium 5,000 Units/Ml Vial IV PUSH 2,500 units PRN PRN Administration aPTT 55 - 70 seconds Hydralazine HCl 10 mg 07/06/24 16:42 07/06/24 17:03 Hydralazine Hcl 20 Mg/Ml Vial IV PUSH 10 mg Q4H PRN Administration Blood Pressure - High Dextrose 1,000 mls @ 100 mls/hr 06/29/24 08:08 Dextrose 5% 1,000 Ml IVPB PRN PRN Hypoglycemia Protocol Fentanyl Citrate 2,500 mcg in 250 mls @ 0 mls/hr 07/06/24 17:55 07/13/24 10:05 Fentanyl 2,500 Mcg/Ns 250 Ml IV CONT 0 mcg/hr .Q0M [facility] 0 mls/hr Titration Protocol Midazolam HCl 100 mg in 100 mls @ 0 mls/hr 07/06/24 17:55 07/13/24 10:05 Versed 100 Mg/Ns 100 Ml IV CONT 0 mg/hr .Q0M [facility] 0 mls/hr Titration Protocol Heparin Sodium/Dextrose 25,000 units in 250 mls @ 0 mls/hr 07/07/24 11:25 07/10/24 08:52 Heparin Sodium/D5w 100 Units/Ml IV CONT 0 units/hr .Q0M [facility] 0 mls/hr Titration Protocol Cefepime HCl 1 gm in 50 mls @ 100 mls/hr 07/08/24 11:00 07/13/24 08:55 Maxipime 1 Gm/Ns 50 Ml IVPB 07/15/24 10:59 Infused Q12HR [facility] Infusion Sodium Chloride 250 mls @ 30 mls/hr 07/13/24 06:03 07/13/24 08:16 Normal Saline Iv IV CONT 07/13/24 14:22 Infused .Q8H20M [facility] Infusion Insulin Aspart 3 - 6 units 06/29/24 12:00 07/13/24 11:18 Insulin Aspart (*Bkc) 100 Units/Ml SUB-Q Not Given Q6HR [facility] Protocol Insulin Glargine 8 units 07/06/24 09:00 07/12/24 09:35 Insulin Glargine (*Bkc) 100 Units/Ml SUB-Q 8 units DAILY [facility] Administration Levothyroxine Sodium 50 mcg 06/30/24 06:30 07/13/24 04:02 Levothyroxine Sodium 50 Mcg Tablet FEED TUBE Not Given DAILY@0630 [facility] Multi-Ingred Cream/Lotion/Oil/Oint 1 applic 06/29/24 09:00 07/13/24 11:19 Mineral Oil/White Petrolatum Ointment EACH EYE 1 applic Q12HR [facility] Administration Pantoprazole Sodium 40 mg 07/06/24 21:00 07/13/24 08:24 Pantoprazole Sodium Iv 40 Mg Vial IV PUSH 40 mg Q12HR [facility] Administration Sodium Chloride 10 ml 06/29/24 14:00 07/13/24 06:57 Central Line Flush IV PUSH 10 ml Q8HR [facility] Administration Sodium Chloride 10 ml 06/29/24 12:40 Central Line Flush IV PUSH PRN PRN with TPN bag changes Sodium Chloride 20 ml 06/29/24 12:40 Central Line Flush IV PUSH PRN PRN after blood draws Vancomycin HCl 1 each 07/08/24 10:48 Vancomycin For Acute Kidney Injury IVPB 07/15/24 10:47 PRN PRN Vancomycin Protocol Radiology Results: ITS Impressions Abdomen X-Ray 06/28/24 20:03 IMPRESSION: Nasogastric tube in good position and ready for immediate use. Abdomen Ultrasound 07/03/24 14:12 IMPRESSION: 1. Normal right upper quadrant ultrasound status post cholecystectomy. Renal Ultrasound 07/06/24 08:30 IMPRESSION: 1. No hydronephrosis in either kidney. Head CT 07/08/24 10:08 IMPRESSION: 1. No acute intracranial process. 2. 8 mm calcified extra-axial mass overlying the left parietal lobe most consistent with a meningioma. Chest X-Ray 07/13/24 06:04 Impression: Small pleural effusions with mild bibasilar pulmonary edema. Underlying COPD and bibasilar linear scarring. Support tubes, as above. Labs Labs: Laboratory Results - last 24 hr 07/10/24 07/12/24 07/13/24 06:48 17:16 00:27 WBC RBC Hgb Hct MCV MCH MCHC RDW Plt Count MPV Immature Gran % (Auto) Neut % (Auto) Lymph % (Auto) [place] % (Auto) Eos % (Auto) Baso % (Auto) Lymph # (Auto) [place] # (Auto) Eos # (Auto) Baso # (Auto) Abs Immat Gran (auto) Absolute Neuts (auto) Absolute Nucleated RBC Nucleated RBC % Puncture Site ABG pH ABG pCO2 ABG pO2 ABG PO2/FiO2 Ratio ABG HCO3 ABG O2 Saturation ABG O2 Content ABG Base Excess A-a Gradient Oxyhemoglobin Carboxyhemoglobin Methemoglobin Reduced Hemoglobin Total Hemoglobin O2 Delivery Device O2 Liters/Min Minute Volume Vent Rate Vent Mode FiO2 Tidal Volume PEEP Peak Inspir Pressure Pressure Support Sodium Potassium Chloride Carbon Dioxide Anion Gap BUN Creatinine Estim Creat Clear Calc Estimated GFR Glucose POC Capillary Glucose 124 H 111 H Calcium Phosphorus Magnesium Total Bilirubin AST ALT Alkaline Phosphatase Total Protein Albumin Vancomycin Trough Blood Type O Positive Antibody Screen Negative Crossmatch See Detail 07/13/24 07/13/24 07/13/24 04:56 05:44 10:13 WBC 18.3 H RBC 2.37 L Hgb 6.9 L* Hct 22.2 L MCV 93.7 MCH 29.1 MCHC 31.1 L RDW 17.8 H Plt Count 239 MPV 11.7 H Immature Gran % (Auto) 1.1 H Neut % (Auto) 82.7 H Lymph % (Auto) 6.4 L [place] % (Auto) 8.3 Eos % (Auto) 1.4 Baso % (Auto) 0.1 L Lymph # (Auto) 1.17 [place] # (Auto) 1.5 H Eos # (Auto) 0.3 Baso # (Auto) 0.0 Abs Immat Gran (auto) 0.20 H Absolute Neuts (auto) 15.1 H Absolute Nucleated RBC 0.000 Nucleated RBC % 0.0 Puncture Site Left radial ABG pH 7.347 L ABG pCO2 49.6 H ABG pO2 82.4 ABG PO2/FiO2 Ratio 1.65 ABG HCO3 26.6 H ABG O2 Saturation 95.5 ABG O2 Content 10.6 L ABG Base Excess 0.7 A-a Gradient 218.3 Oxyhemoglobin 94.2 Carboxyhemoglobin 1.1 Methemoglobin 0.3 Reduced Hemoglobin 4.4 Total Hemoglobin 7.9 L O2 Delivery Device Ventilator O2 Liters/Min Not Reportable Minute Volume Not Reportable Vent Rate 16 Vent Mode Cmv FiO2 50 Tidal Volume 480 PEEP 8 Peak Inspir Pressure Not Reportable Pressure Support Not Reportable Sodium 143 Potassium 4.5 Chloride 106 Carbon Dioxide 25 Anion Gap 12 BUN 132 H D Creatinine 2.89 H Estim Creat Clear Calc 15 Estimated GFR 19 L Glucose 107 POC Capillary Glucose 104 Calcium 8.8 Phosphorus 6.0 H Magnesium 2.6 H Total Bilirubin 0.5 AST 39 H ALT 43 H Alkaline Phosphatase 108 Total Protein 5.0 L Albumin 2.9 L Vancomycin Trough 23.6 H Blood Type Antibody Screen Crossmatch 07/13/24 07/13/24 10:49 11:18 WBC 21.9 H RBC 3.12 L Hgb 9.3 L Hct 28.9 L MCV 92.6 MCH 29.8 MCHC 32.2 RDW 16.9 H Plt Count 265 MPV 11.6 H Immature Gran % (Auto) Neut % (Auto) Lymph % (Auto) [place] % (Auto) Eos % (Auto) Baso % (Auto) Lymph # (Auto) [place] # (Auto) Eos # (Auto) Baso # (Auto) Abs Immat Gran (auto) Absolute Neuts (auto) Absolute Nucleated RBC Nucleated RBC % Puncture Site ABG pH ABG pCO2 ABG pO2 ABG PO2/FiO2 Ratio ABG HCO3 ABG O2 Saturation ABG O2 Content ABG Base Excess A-a Gradient Oxyhemoglobin Carboxyhemoglobin Methemoglobin Reduced Hemoglobin Total Hemoglobin O2 Delivery Device O2 Liters/Min Minute Volume Vent Rate Vent Mode FiO2 Tidal Volume PEEP Peak Inspir Pressure Pressure Support Sodium Potassium Chloride Carbon Dioxide Anion Gap BUN Creatinine Estim Creat Clear Calc Estimated GFR Glucose POC Capillary Glucose 97 Calcium Phosphorus Magnesium Total Bilirubin AST ALT Alkaline Phosphatase Total Protein Albumin Vancomycin Trough Blood Type Antibody Screen Crossmatch Quality VTE Prophylaxis VTE prophylaxis: pharmacologic ordered
[2024-07-13] MEDS: INSULIN GLARGINE (*BKC) 100 UNITS/ML 8 UNITS SUB-Q (12:59)
[2024-07-13 13:35] LABS: Hematocrit 28.6 % (37.0-47.0); Hemoglobin 9.2 g/dL (12.0-15.0); Mean Corpuscular HGB Conc 32.2 g/dl (32-36); Mean Corpuscular Hemoglobin 29.6 pg (26-34); Mean Platelet Volume 12.7 fl (7.4-10.4); Platelet Count Result 263 k/mm3 (150-375); Red Blood Count 3.11 M/mm3 (4.2-5.4); Red Cell Distribution Width 17.2 % (11.5-14.5); White Blood Count 22.5 K/mm3 (4.5-10.0)
[2024-07-13 17:26] LABS: Glucose Point of Care 132 mg/dl (65-105)
[2024-07-14] VITALS (25 sets, daily range): BP systolic 125–160; BP diastolic 42–69; PULSE 73–79; RESP 15–26; TEMP 36.4–37.4; O2SAT 85–96
[2024-07-14 00:04] LABS: Glucose Point of Care 146 mg/dl (65-105)
[2024-07-14] MEDS: IPRATROPIUM 0.5 MG/ALBUTEROL SULFATE 2.5 MG AMPUL.NEB 3 ML INHALATION ×4 (01:42→19:58)
[2024-07-14 05:04] LABS: Alveolar/Arterial O2 Gradient 267.2 mmHg; Base Excess ABG -1.4 mEq/l (+/-2.0); Carboxyhemoglobin 0.3 % THb (0-2.0); Fractional Inspired Oxygen 55 %; HCO3 ABG 24.3 mEq/l (22.0-26.0); Methemoglobin ABG 0.3 %THb (0-1.5); Oxygen Content ABG 13.3 %vol (16.0-22.0); Oxygen Saturation ABG 94.2 % (95.0-100.0); Oxyhemoglobin 93.4 % THb (90.0-100.0); PCO2 ABG 45.4 mmHg (35.0-45.0); PO2 ABG 74.4 mmHg (80.0-100.0); PO2 FiO2 Ratio Arterial Blood 1.35 %; Total Hemoglobin 10.1 g/dL (12.0-18.0); pH ABG 7.347 (7.350-7.450)
[2024-07-14 05:06] LABS: Arterial Blood Gas Vent Mode CMV; Arterial Blood Gas Ventilator rate 16 /MIN; Device VENTILATOR; Modified Allen's Test Pass; Site Drawn LEFT RADIAL
[2024-07-14 05:07] LABS: Arterial Blood Gas PEEP 8 cmH2O; Arterial Blood Gas Tidal Volume 480 ml
[2024-07-14 06:50] LABS: Glucose Point of Care 170 mg/dl (65-105)
[2024-07-14] MEDS: CENTRAL LINE FLUSH 10 ML IV PUSH ×3 (06:57→20:25)
[2024-07-14] MEDS: LEVOTHYROXINE SODIUM 50 MCG TABLET FEED TUBE (06:57)
[2024-07-14 06:58] LABS: Basophils Absolute Auto 0.1 K/mm3 (0.0-0.1); Basophils Percent Auto 0.2 % (0.2-1.2); Eosinophils Absolute Auto 0.1 K/mm3 (0-0.3); Eosinophils Percent Auto 0.5 % (0-4.4); Hematocrit 29.5 % (37.0-47.0); Hemoglobin 9.5 g/dL (12.0-15.0); Immature Granulocyte Absolute 0.27 K/mm3 (0.00-0.031); Lymphocytes Absolute Auto 0.83 K/mm3 (0.9-3.2); Lymphocytes Percent Auto 3.2 % (18.3-44.2); Mean Corpuscular HGB Conc 32.2 g/dl (32-36); Mean Corpuscular Hemoglobin 29.3 pg (26-34); Monocytes Absolute Auto 1.8 K/mm3 (0.1-0.6); Monocytes Percent Auto 6.8 % (2.6-8.5); Neutrophils Absolute Auto 23.3 K/mm3 (1.3-6.7); Neutrophils Percent Auto 88.3 % (45.5-73.1); Nucleated Red Blood Cells Perc 0.1 % (0.0-0.2); Platelet Count Result 330 k/mm3 (150-375); Red Blood Count 3.24 M/mm3 (4.2-5.4); Red Cell Distribution Width 17.9 % (11.5-14.5); White Blood Count 26.3 K/mm3 (4.5-10.0)
[2024-07-14 07:15] LABS: Anion Gap 11 mmol/L (4-12); Bilirubin,Total 0.6 mg/dL (0.2-1.3); Calcium 9.4 mg/dL (8.4-10.2); Carbon Dioxide 26 mmol/L (22-30); Chloride 106 mmol/L (98-107); Estimated CRCL calculation 13 ml/min; Estimated Glomerular Filt Rate 17; Glucose 160 mg/dL (65-110); Magnesium 2.5 mg/dL (1.6-2.3); Phosphorus 5.6 mg/dL (2.5-4.5); Potassium 4.9 mmol/L (3.4-5.0); Sodium 143 mmol/L (137-145)
[2024-07-14 07:16] LABS: Alanine Aminotransferase 38 U/L (6-35); Albumin Level 3.2 g/dL (3.5-5.1); Alkaline Phosphatase 149 U/L (38-126); Aspartate Amino Transferase 40 U/L (14-36)
[2024-07-14 07:23] LABS: Blood Urea Nitrogen 142 mg/dL (7-17)
[2024-07-14 07:24] LABS: Vancomycin Random 18.8 ug/mL (10-20)
[2024-07-14 07:44] LABS: Hepatitis B Surface Antigen Negative (Negative)
[2024-07-14 08:02] LABS: Hepatitis B Surface Anti Res Negative
[2024-07-14 08:08] LABS: Anisocytosis 1+; Hypochromasia 1+; Platelet Estimate Adequate (Adequate)
[2024-07-14 08:09] LABS: Acanthocytes 1+; Ovalocytes 1+; Schistocytes Rare
[2024-07-14] MEDS: PANTOPRAZOLE SODIUM IV 40 MG VIAL IV PUSH ×2 (09:18→20:24)
[2024-07-14] MEDS: ATORVASTATIN 40 MG TABLET PO (09:19)
[2024-07-14] MEDS: CEFEPIME 1 GM/NS 50 ML 1 GM/50 ML BAG IVPB ×2 (09:19→20:25)
[2024-07-14] MEDS: CYANOCOBALAMIN INJ 1,000 MCG/ML VIAL 1000 MCG IM (09:19)
[2024-07-14] MEDS: INSULIN GLARGINE (*BKC) 100 UNITS/ML 8 UNITS SUB-Q (09:19)
[2024-07-14] MEDS: AMIODARONE HCL 200 MG TABLET 400 MG PO ×2 (09:19→20:24)
[2024-07-14] MEDS: VANCOMYCIN 1,000 MG/NS 250 ML 1,000 MG/250 ML BAG 250 MG IVPB (09:20)
[2024-07-14] MEDS: MINERAL OIL/WHITE PETROLATUM OINTMENT 1 APPLIC EACH EYE ×2 (09:20→20:25)
--- NOTE | 2024-07-14 09:43 | P.CDI_ITS ---
CDI Query Clarification Request Encephalopathy has been documented. Please clarify type of encephalopathy, if known: * Metabolic * Toxic * Hepatic * Hypertensive * Anoxic/Hypoxic * Uremic * Wernicke * Other * Unknown, please specify
--- NOTE | 2024-07-14 09:43 | WPDCDIQUERY2 ---
CDI Query Clarification Request Encephalopathy has been documented. Please clarify type of encephalopathy, if known: Metabolic Toxic Hepatic Hypertensive Anoxic/Hypoxic Uremic Wernicke Other Unknown, please specify
--- NOTE | 2024-07-14 09:49 | P.PNNP_ITS ---
Progress Note: A&P Assessment and Plan (1) RASHEL (acute kidney injury): Code(s): N17.9 - Acute kidney failure, unspecified Status: Acute Assessment and Plan: * ongoing deterioration noted... * evaluation to date noted: * normal renal ultrasound * urine electrolytes prerenal (by FeUrea) * rare urine eosinophils (difficult to interpret given possible UTI) * CPK mildly elevated - follow trend * moderate proteinuria * etiology not clear but suspicion falls on: * possibly due to relative hypotension previously * intravascular volume depletion (?) * infection/sepsis * fluctuating hemodynamics * other (?) * continue to make good/reasonable urine output * she will need TRANSCRIPTION TYPIST/dialysis more so for clearance of the uremic toxins * Surgery consulted for tunneled HD catheter placement (2) Acute on chronic respiratory failure with hypoxia and hypercapnia: Code(s): J96.21 - Acute and chronic respiratory failure with hypoxia; J96.22 - Acute and chronic respiratory failure with hypercapnia Status: Acute Assessment and Plan: * presumably due to COPD exacerbation * complicated by known history of chronic hypoxic/hypercapnic respiratory failure and CHERYL * remains on ventilator support * s/p tracheostomy (on 07/13) * weaned off steroids * ventilator weaning as tolerated (3) Shock: Code(s): R57.9 - Shock, unspecified Status: Acute Assessment and Plan: * fluctuating hemodynamics noted * hypotension on 07/11 evening despite IVF bolus requiring initiation of levophed * off vasopressor therapy at this time * culture data noted: * blood culture with no growth * sputum culture with yeast * urine culture with Karla * completed course of cefepime + vancomycin (4) Acute exacerbation of chronic obstructive pulmonary disease: Code(s): J44.1 - Chronic obstructive pulmonary disease with (acute) exacerbation Status: Acute Assessment and Plan: * presumed etiology of #2 * continue current therapy (5) Elevated troponin: Code(s): R77.8 - Other specified abnormalities of plasma proteins Status: Acute Assessment and Plan: * felt to be demand ischemia from acute respiratory failure * EKG noted * Cardiology recommendations noted * recent Echo noted (on 06/29): * left ventricular systolic function appears preserved * right ventricle is normal in size and systolic function. * small amount of pericardial effusion with no evidence of cardiac tamponade * ischemic evaluation when more stable (6) Atrial fibrillation with RVR: Code(s): I48.91 - Unspecified atrial fibrillation Status: Acute Assessment and Plan: * SVT noted on evening of 07/06 * s/p IV andenosine with underlying rhythm noted to be AFib RVR * converted to normal sinus rhythm with IV metoprolol x 1 * on 07/07, with weaning of sedation, patient went to AFib RVR again * now on amiodarone for rate control * heparin drip on hold due to #7 and reported history of coffee ground emesis * Cardiology following (7) Anemia: Code(s): D64.9 - Anemia, unspecified Status: Acute Assessment and Plan: * due to RASHEL and acute illness * however, hemooccult positive * GI recommendations noted * anemia studies without iron deficiency * normal folate * low B12 noted -- IM B12 given * on PPI * PRBC transfusion per protocol * consider REMI given RASHEL... * follow trend of H/H (8) Elevated LFTs: Code(s): R79.89 - Other specified abnormal findings of blood chemistry Status: Acute Assessment and Plan: * noted on testing since 07/03 * RUQ u/s was normal - status post cholecystectomy * hepatitis panel normal * slow improvement Will continue to follow. L Subjective Date/time seen: 07/14/24 09:49 Interval history: Follow-up for acute kidney injury/acute renal failure. S/P tracheostomy yesterday and tolerated this procedure reasonably well; s/p PRBC transfusion yesterday as well with appropriate incrementation in H/H; despite fairly stable urine output, renal function/creatinine & BUN continues to rise as noted by trend of labs; remains on ventilator support via tracheostomy with stable hemodynamics noted. Exam 2 Narrative: General: elderly but WD/WN female on mechanical ventilation via tracheostomy Heart: normal S1 and S2; no rub Lungs: coarse breath sounds Abdomen: soft, nontender, nondistended, decreased bowel sounds Extremities: no cyanosis or clubbing; no edema Skin: warm and intact Objective Data Vital Signs Vital Signs: Vital Signs Temp Pulse Resp BP Pulse Ox O2 Del Method FiO2 07/14/24 09:19 97.9 F 75 18 126/56 L 95 07/14/24 08:18 76 19 07/14/24 08:00 76 07/14/24 08:00 55 07/14/24 08:00 94 Mechanical Ventilation 55 07/14/24 08:00 97.6 F 76 21 H 149/57 H 94 07/14/24 07:56 75 94 Mechanical Ventilation 55 07/14/24 07:55 75 18 07/14/24 06:00 79 07/14/24 06:00 98.1 F 79 23 H 158/69 H 95 07/14/24 04:46 78 85 L Mechanical Ventilation 55 07/14/24 04:00 98.1 F 79 22 H 158/69 H 94 07/14/24 04:00 55 07/14/24 04:00 79 07/14/24 04:00 95 Mechanical Ventilation 55 07/14/24 02:00 99.2 F 77 15 153/62 H 95 07/14/24 02:00 77 07/14/24 01:43 76 94 Mechanical Ventilation 55 07/14/24 01:43 77 16 07/14/24 00:00 75 07/14/24 00:00 99.3 F 76 18 153/56 H 93 07/14/24 00:00 55 07/14/24 00:00 94 Mechanical Ventilation 55 07/13/24 23:20 76 94 Mechanical Ventilation 55 07/13/24 22:00 99.2 F 76 23 H 143/45 H 94 07/13/24 22:00 76 07/13/24 21:04 77 07/13/24 20:25 75 16 07/13/24 20:22 76 95 Mechanical Ventilation 55 07/13/24 20:16 76 16 07/13/24 20:00 55 07/13/24 20:00 76 07/13/24 20:00 99.5 F 76 22 H 133/51 L 94 07/13/24 20:00 94 Mechanical Ventilation 55 07/13/24 18:00 76 07/13/24 18:00 99.2 F 75 20 105/57 L 95 07/13/24 17:12 75 95 Mechanical Ventilation 55 07/13/24 16:00 71 07/13/24 16:00 94 Mechanical Ventilation 55 07/13/24 16:00 77 17 07/13/24 16:00 77 17 07/13/24 16:00 55 07/13/24 16:00 99.2 F 77 17 128/48 L 94 07/13/24 14:54 76 16 07/13/24 14:35 76 16 07/13/24 14:35 76 93 Mechanical Ventilation 55 07/13/24 14:00 75 16 07/13/24 14:00 75 16 07/13/24 14:00 75 07/13/24 14:00 98.8 F 74 20 126/63 93 Intake/Output Intake/Output: Intake & Output 07/11/24 07/12/24 07/13/24 07/14/24 23:59 23:59 23:59 23:59 Intake Total 2474.7 1874.5 1614.5 1290 Output Total 1300 875 700 500 Balance 1174.7 999.5 914.5 790 Meds/Results Medications: Active Medications Generic Name Dose Route Start Last Admin Trade Name Freq PRN Reason Stop Dose Admin Albuterol/Ipratropium 3 ml 06/29/24 02:00 07/14/24 07:55 Ipratropium 0.5 Mg/Albuterol Sulfate 2.5 Mg Ampul.Neb 3 Ml INHALATION 3 ml Q6HRT BARBARA Administration Amiodarone HCl 400 mg 07/09/24 12:20 07/14/24 09:19 Amiodarone Hcl 200 Mg Tablet PO 400 mg Q12HR BARBARA Administration Aspirin 81 mg 07/01/24 08:00 07/13/24 08:24 Aspirin 81 Mg Chewable Tablet PO 81 mg DAILY@0800 BARBARA Administration Atorvastatin Calcium 40 mg 06/29/24 09:00 07/14/24 09:19 Atorvastatin 40 Mg Tablet PO 40 mg DAILY BARBARA Administration Dextrose 12.5 gm 06/29/24 08:08 Dextrose 50% 25 Gm/50 Ml Syringe IV PUSH PRN PRN Hypoglycemia Protocol Glucagon 1 mg 06/29/24 08:08 Glucagon For Inj 1 Mg Vial IM PRN PRN Hypoglycemia Protocol Glucose 15 gm 06/29/24 08:08 Glucose Oral Gel 15 Gm Of Glucse In 37.5 Gm Tube PO PRN PRN Hypoglycemia Protocol Heparin Sodium (Porcine) 5,000 units 07/07/24 11:24 Heparin Sodium 5,000 Units/Ml Vial IV PUSH PRN PRN aPTT less than 55 seconds Heparin Sodium (Porcine) 2,500 units 07/07/24 11:24 07/09/24 07:21 Heparin Sodium 5,000 Units/Ml Vial IV PUSH 2,500 units PRN PRN Administration aPTT 55 - 70 seconds Hydralazine HCl 10 mg 07/06/24 16:42 07/06/24 17:03 Hydralazine Hcl 20 Mg/Ml Vial IV PUSH 10 mg Q4H PRN Administration Blood Pressure - High Dextrose 1,000 mls @ 100 mls/hr 06/29/24 08:08 Dextrose 5% 1,000 Ml IVPB PRN PRN Hypoglycemia Protocol Heparin Sodium/Dextrose 25,000 units in 250 mls @ 0 mls/hr 07/07/24 11:25 07/10/24 08:52 Heparin Sodium/D5w 100 Units/Ml IV CONT 0 units/hr .Q0M BARBARA 0 mls/hr Titration Protocol Cefepime HCl 1 gm in 50 mls @ 100 mls/hr 07/08/24 11:00 07/14/24 09:50 Maxipime 1 Gm/Ns 50 Ml IVPB 07/15/24 10:59 Infused Q12HR BARBARA Infusion Dexmedetomidine HCl 400 mcg in 100 mls @ 3.885 mls/hr 07/13/24 16:00 07/14/24 00:10 Precedex 400 Mcg/100 Ml IV CONT Not Given .[id number] [facility] Protocol 0.2 MCG/KG/HR Insulin Aspart 3 - 6 units 06/29/24 12:00 07/14/24 11:48 Insulin Aspart (*Bkc) 100 Units/Ml SUB-Q Not Given Q6HR [facility] Protocol Insulin Glargine 12 units 07/15/24 09:00 Insulin Glargine (*Bkc) 100 Units/Ml SUB-Q DAILY [facility] Levothyroxine Sodium 50 mcg 06/30/24 06:30 07/14/24 06:57 Levothyroxine Sodium 50 Mcg Tablet FEED TUBE 50 mcg DAILY@0630 [facility] Administration Multi-Ingred Cream/Lotion/Oil/Oint 1 applic 06/29/24 09:00 07/14/24 09:20 Mineral Oil/White Petrolatum Ointment EACH EYE 1 applic Q12HR BARBARA Administration Pantoprazole Sodium 40 mg 07/06/24 21:00 07/14/24 09:18 Pantoprazole Sodium Iv 40 Mg Vial IV PUSH 40 mg Q12HR BARBARA Administration Sodium Chloride 10 ml 06/29/24 14:00 07/14/24 06:57 Central Line Flush IV PUSH 10 ml Q8HR BARBARA Administration Sodium Chloride 10 ml 06/29/24 12:40 Central Line Flush IV PUSH PRN PRN with TPN bag changes Sodium Chloride 20 ml 06/29/24 12:40 Central Line Flush IV PUSH PRN PRN after blood draws Vancomycin HCl 1 each 07/08/24 10:48 Vancomycin For Acute Kidney Injury IVPB 07/15/24 10:47 PRN PRN Vancomycin Protocol Radiology Results: ITS Impressions Abdomen X-Ray 06/28/24 20:03 IMPRESSION: Nasogastric tube in good position and ready for immediate use. Abdomen Ultrasound 07/03/24 14:12 IMPRESSION: 1. Normal right upper quadrant ultrasound status post cholecystectomy. Renal Ultrasound 07/06/24 08:30 IMPRESSION: 1. No hydronephrosis in either kidney. Head CT 07/08/24 10:08 IMPRESSION: 1. No acute intracranial process. 2. 8 mm calcified extra-axial mass overlying the left parietal lobe most consistent with a meningioma. Chest X-Ray 07/14/24 06:34 Impression: COPD. Worsening hazy and interstitial disease the lung bases and left perihilar region. Correlate for superimposed pulmonary edema or pneumonia. Support tubes, as above. Labs Labs: Laboratory Tests 07/14/24 06:53 07/14/24 06:53 Calcium 9.4 Phosphorus 5.6 H Magnesium 2.5 H Total Bilirubin 0.6 AST 40 H ALT 38 H Alkaline Phosphatase 149 H Total Protein 6.0 L Albumin 3.2 L Random Vancomycin 18.8 Hep Bs Antigen Negative Hep Bs Antibody Negative Microbiology 07/08/24 11:28 Blood Blood Culture - Final 07/08/24 11:09 Blood Blood Culture - Final
[2024-07-14 11:25] LABS: Glucose Point of Care 196 mg/dl (65-105)
--- NOTE | 2024-07-14 11:33 | PCNFU ---
Nutrition Follow-Up Complete: Inadequate Oral Intake as related to mechanical vent as evidenced by NPO. Goal: Meet estimated nutritional needs Patient is meeting goal. We will continue current goal. Pt current nutrition is Nepro at 40 ml/hr with Ish BID. Last recorded weight is 80.3 kg, up from 64.3 kg. discussions regarding possible dialysis. Bowel Motility: +BM reported 07/10 Labs Reviewed:Mg 2.5, Glu 160, BUN 142, Cr 3.25, Hct 29.5, Hgb 9.5 Meds Noted: Lovenox, Protonix, NovoLog, Lipitor, Synthroid. Skin: Deep Tissue-Coccyx. Additional Notes: Patient is current with PEG and Trach. Tube feedings are being tolerated of Nepro at 40 ml/hr with Ish BID flush. Total Nutrition: 1744 kcal/77 gm protein/640 ml water. Flush 100 ml q 4 hours. Discussions regarding possible dialysis. Agree with diet orders at this time. Will monitor weight, labs, skin, diet orders, meds, tube feedings tolerance every Saturday and Saturday
--- NOTE | 2024-07-14 11:42 | WPDINTPN ---
Progress Note: A&P Assessment and Plan (1) Atrial fibrillation with RVR: Code(s): I48.91 - Unspecified atrial fibrillation Status: Acute Assessment and Plan: 07/06 evening: Patient went into SVT, status post adenosine 6 mg and 12 mg, underlying rhythm was AFib RVR, converted to normal sinus rhythm with IV metoprolol x1 and increasing her sedation. Patient remained in sinus rhythm also the morning of 07/07/2024. Off anticoagulation due to drop in hemoglobin coffee-ground emesis 07/06; TSH level within normal limits, troponin level with no change since admission Cardiology following On p.o. amiodarone Currently in sinus rhythm (2) Acute on chronic respiratory failure with hypoxia and hypercapnia: Code(s): J96.21 - Acute and chronic respiratory failure with hypoxia; J96.22 - Acute and chronic respiratory failure with hypercapnia Status: Acute Assessment and Plan: Acute on chronic respiratory failure secondary to severe COPD exacerbation. Community-acquired pneumonia although chest x-ray is not suggestive and patient is low procalcitonin level. WBC elevated MRSA screen negative 06/28/2024: Intubated in the ED 06/28: Blood cultures negative x2 -status post course of ceftriaxone and doxycycline -DC vancomycin (06/29), MRSA screen negative Patient failed her weaning trial on multiple days and eventually had tracheostomy done on 07/13 Now weaned off of sedation Chest x-ray reviewed Wean FiO2 (3) Acute exacerbation of chronic obstructive pulmonary disease: Code(s): J44.1 - Chronic obstructive pulmonary disease with (acute) exacerbation Status: Acute Assessment and Plan: Continue mechanical ventilation, bronchodilators, antibiotics, -patient has previous tracheostomy scar likely related to COPD exacerbation (4) Elevated troponin: Code(s): R77.8 - Other specified abnormalities of plasma proteins Status: Acute Assessment and Plan: Patient has elevated troponin likely secondary to demand ischemia from acute respiratory failure. EKG reviewed and does not show any ST elevation. Patient does not have any documented history of coronary disease. Troponins trending down Continue daily statin Aspirin is on hold due to anemia Appreciate cardiology evaluation and recommendation 06/29/2024: Echocardiogram Summary 1. The left ventricle is normal in size with thickened left ventricular rodríguez. The overall left ventricular systolic function appears preserved. Cannot rule out very mild hypokinesis of the apical wall. 2. The right ventricle is normal in size and systolic function. 3. The there is a small amount of pericardial effusion with no echocardiographic evidence of cardiac tamponade. (5) Hypothyroidism: Code(s): E03.9 - Hypothyroidism, unspecified Status: Acute Assessment and Plan: Continue levothyroxine. -07/06: TSH level - within normal limits (6) Electrolyte abnormality: Code(s): E87.8 - Other disorders of electrolyte and fluid balance, not elsewhere classified Status: Acute Assessment and Plan: Potassium levels within normal limits -appreciate Nephrology evaluation and recommendations (7) Elevated LFTs: Code(s): R79.89 - Other specified abnormal findings of blood chemistry Status: Acute Assessment and Plan: Right upper quadrant ultrasound was normal, status post cholecystectomy -hepatitis panel was within normal limit (8) RASHEL (acute kidney injury): Code(s): N17.9 - Acute kidney failure, unspecified Status: Acute Assessment and Plan: Acute kidney injury, likely related to hypotension, intravascular volume depletion, BUN elevated likely related to steroids -nephrology has been consulted and appreciate the evaluation and recommendation -discuss with Nephrology, will start albumin 25% x4 doses since she may be intravascularly depleted -monitor urine output, renal function electrolytes 07/06: Renal ultrasound: No hydronephrosis in either kidney. Creatinine and BUN continues to increase. Although patient is still producing urine I have discussed the Nephrology and will proceed with initiation of hemodialysis if family is agreeable. (9) Hyperglycemia: Code(s): R73.9 - Hyperglycemia, unspecified Status: Acute Assessment and Plan: Hyperglycemia likely related to tube feeds and or steroid Off steroid -continue Accu-Cheks and sliding scale insulin, Increase Lantus. (10) Anemia: Code(s): D64.9 - Anemia, unspecified Status: Acute Assessment and Plan: Patient dropped her hemoglobin to 8.3 from 10.9 (07/05) -07/06/2024: Stool occult was positive -iron panel did not show any iron deficiency, normal folate level -low vitamin B12 level, will give IM cyanocobalamin weekly x2 doses -continue Protonix to IV q.12 hours -appreciate GI evaluation , no endoscopy recommended at this time -hemoglobin remains stable 07/10: Patient dropped hemoglobin to 6.7 again, received 1 unit of packed RBCs. Heparin infusion was discontinued (which was for new onset atrial fibrillation RVR). -hemoglobin stable, continue monitor 07/13: Hemoglobin dropped to 6.9 this morning, transfused 1 unit of packed RBCs, continue to monitor (11) Encephalopathy: Code(s): G93.40 - Encephalopathy, unspecified Status: Acute Assessment and Plan: Metabolic and uremic -07/08: stat CT scan of the brain: 1. No acute intracranial process.2. 8 mm calcified extra-axial mass overlying the left parietal lobe most consistent with a meningioma. -ammonia level <9 -continue to monitor (12) Shock: Code(s): R57.9 - Shock, unspecified Status: Acute Assessment and Plan: 07/11: Patient with hypotension overnight, given IV fluid bolus. Started on Levophed, maintain MAP > 65 mmHg for adequate end organ perfusion especially renal perfusion -continue cefepime and vancomycin (07/08) for a total of 7 days -07/08: Blood cultures with no growth x2 -07/08: Sputum culture growing yeast 07/13: Levophed has been turned off on 07/11 at 4:00 p.m. . Blood pressures have been adequate, continue to monitor Plan DVT prophylaxis -SCDs, no chemoprophylaxis due to anemia requiring blood transfusion Stress ulcer prophylaxis -PPI IV q.12 hours Nutrition -tolerating tube feeds Code Status - Full Code Discussed with nephrology Total Critical Care Time - 32 minutes Due to a high probability of clinically significant, life threatening deterioration, the patient required my highest level of preparedness to intervene emergently and I personally spent this critical care time directly and personally managing the patient. This critical care time included obtaining a history; examining the patient; pulse oximetry; ordering and review of studies; arranging urgent treatment with development of a management plan; evaluation of patient's response to treatment; frequent reassessment; and discussions with other providers. It was exclusive of separately billable procedures and treating other patients and teaching time. Please see Assessment and Plan section and the rest of the note for further information on patient assessment and treatment This dictation may have been done utilizing a voice recognition system. Attempts have been made to correct errors. However, there may be uncorrected grammatical, spelling, and recognitions errors present. Subjective Date/time seen: 07/14/24 Overnight events reviewed. Afebrile Continues to be on mechanical ventilation 55% FiO2 and 8 of PEEP Off all continuous infusion Drowsy but arousable and follows commands intermittently but overall very weak Tolerating tube feeds Urine output on the lower side On Vitals acceptable Interval history: Reason for consult: COPD exacerbation, acute hypercapnic respiratory failure, NSTEMI with elevated troponin 07/08: CT brain was negative, was done for encephalopathy 07/10: PEG tube placement by GI 07/13: Tracheostomy placed by ENT Review of Systems Review of Systems: ROS unobtainable: Yes unobtainable due to endotracheal tube, unobtainable due to medical condition and unobtainable due to mental status Exam Narrative: General: Pt is sedated and intubated and on mechanical ventilation HEENT: Pupils equal and reactive, sclera is clear, trach in place Lungs/Chest: Trachea central, adequate air entry, coarse breath sounds at bases, no wheezing., rales noted on left lower lobe Cardiac: Sinus rhythm, rate controlled Abdomen: Decreased bowel sounds. Nontender, nondistended Obese. Soft. . PEG in place Extremities: Positive edema, anasarca up to the thighs : Goddard in place Neurologic: Intubated, sedated opens her eyes and follow simple commands with all 4 extremities, grimaces to pain but does not withdraw. Objective Data Vital Signs Vital Signs: Vital Signs - 24 hr 07/13/24 12:00 07/13/24 12:00 07/13/24 12:00 Temperature 36.4 C L Pulse Rate 72 72 Respiratory Rate 17 16 Blood Pressure 130/50 L Pulse Oximetry 93 Oxygen Delivery Fraction of Inspired Oxygen 55 07/13/24 12:00 07/13/24 12:00 07/13/24 12:00 Temperature Pulse Rate 72 72 Respiratory Rate 16 Blood Pressure Pulse Oximetry 93 Oxygen Delivery Mechanical Ventilation Fraction of Inspired Oxygen 55 07/13/24 14:00 07/13/24 14:00 07/13/24 14:00 Temperature 37.1 C Pulse Rate 74 75 75 Respiratory Rate 20 16 Blood Pressure 126/63 Pulse Oximetry 93 Oxygen Delivery Fraction of Inspired Oxygen 07/13/24 14:00 07/13/24 14:35 07/13/24 14:35 Temperature Pulse Rate 75 76 76 Respiratory Rate 16 16 Blood Pressure Pulse Oximetry 93 Oxygen Delivery Mechanical Ventilation Fraction of Inspired Oxygen 55 07/13/24 14:54 07/13/24 16:00 07/13/24 16:00 Temperature 37.3 C Pulse Rate 76 77 Respiratory Rate 16 17 Blood Pressure 128/48 L Pulse Oximetry 94 Oxygen Delivery Fraction of Inspired Oxygen 55 07/13/24 16:00 07/13/24 16:00 07/13/24 16:00 Temperature Pulse Rate 77 77 Respiratory Rate 17 17 Blood Pressure Pulse Oximetry 94 Oxygen Delivery Mechanical Ventilation Fraction of Inspired Oxygen 55 07/13/24 16:00 07/13/24 17:12 07/13/24 18:00 Temperature 37.3 C Pulse Rate 71 75 75 Respiratory Rate 20 Blood Pressure 105/57 L Pulse Oximetry 95 95 Oxygen Delivery Mechanical Ventilation Fraction of Inspired Oxygen 55 07/13/24 18:00 07/13/24 20:00 07/13/24 20:00 Temperature 37.5 C Pulse Rate 76 76 Respiratory Rate 22 H Blood Pressure 133/51 L Pulse Oximetry 94 94 Oxygen Delivery Mechanical Ventilation Fraction of Inspired Oxygen 55 07/13/24 20:00 07/13/24 20:00 07/13/24 20:16 Temperature Pulse Rate 76 76 Respiratory Rate 16 Blood Pressure Pulse Oximetry Oxygen Delivery Fraction of Inspired Oxygen 55 07/13/24 20:22 07/13/24 20:25 07/13/24 21:04 Temperature Pulse Rate 76 75 77 Respiratory Rate 16 Blood Pressure Pulse Oximetry 95 Oxygen Delivery Mechanical Ventilation Fraction of Inspired Oxygen 55 07/13/24 22:00 07/13/24 22:00 07/13/24 23:20 Temperature 37.3 C Pulse Rate 76 76 76 Respiratory Rate 23 H Blood Pressure 143/45 H Pulse Oximetry 94 94 Oxygen Delivery Mechanical Ventilation Fraction of Inspired Oxygen 55 07/14/24 00:00 07/14/24 00:00 07/14/24 00:00 Temperature 37.4 C Pulse Rate 76 Respiratory Rate 18 Blood Pressure 153/56 H Pulse Oximetry 94 93 Oxygen Delivery Mechanical Ventilation Fraction of Inspired Oxygen 55 55 07/14/24 00:00 07/14/24 01:43 07/14/24 01:43 Temperature Pulse Rate 75 77 76 Respiratory Rate 16 Blood Pressure Pulse Oximetry 94 Oxygen Delivery Mechanical Ventilation Fraction of Inspired Oxygen 55 07/14/24 02:00 07/14/24 02:00 07/14/24 04:00 Temperature 37.3 C Pulse Rate 77 77 Respiratory Rate 15 Blood Pressure 153/62 H Pulse Oximetry 95 95 Oxygen Delivery Mechanical Ventilation Fraction of Inspired Oxygen 55 07/14/24 04:00 07/14/24 04:00 07/14/24 04:00 Temperature 36.7 C Pulse Rate 79 79 Respiratory Rate 22 H Blood Pressure 158/69 H Pulse Oximetry 94 Oxygen Delivery Fraction of Inspired Oxygen 55 07/14/24 04:46 07/14/24 06:00 07/14/24 06:00 Temperature 36.7 C Pulse Rate 78 79 79 Respiratory Rate 23 H Blood Pressure 158/69 H Pulse Oximetry 85 L 95 Oxygen Delivery Mechanical Ventilation Fraction of Inspired Oxygen 55 07/14/24 07:55 07/14/24 07:56 07/14/24 08:00 Temperature 36.4 C Pulse Rate 75 75 76 Respiratory Rate 18 21 H Blood Pressure 149/57 H Pulse Oximetry 94 94 Oxygen Delivery Mechanical Ventilation Fraction of Inspired Oxygen 55 07/14/24 08:00 07/14/24 08:00 07/14/24 08:00 Temperature Pulse Rate 76 Respiratory Rate Blood Pressure Pulse Oximetry 94 Oxygen Delivery Mechanical Ventilation Fraction of Inspired Oxygen 55 55 07/14/24 08:18 07/14/24 09:19 07/14/24 10:00 Temperature 36.6 C Pulse Rate 76 74 75 Respiratory Rate 19 18 Blood Pressure 126/56 L Pulse Oximetry 95 Oxygen Delivery Fraction of Inspired Oxygen 07/14/24 10:00 07/14/24 11:27 Temperature Pulse Rate 75 75 Respiratory Rate Blood Pressure Pulse Oximetry 94 Oxygen Delivery Mechanical Ventilation Fraction of Inspired Oxygen 55 Intake/Output Intake/Output: Intake & Output 07/11/24 07/12/24 07/13/24 07/14/24 23:59 23:59 23:59 23:59 Intake Total 2474.7 1874.5 1614.5 990 Output Total 1300 875 700 500 Balance 1174.7 999.5 914.5 490 Meds/Results Medications: Active Medications Generic Name Dose Route Start Last Admin Trade Name Freq PRN Reason Stop Dose Admin Albuterol/Ipratropium 3 ml 06/29/24 02:00 07/14/24 07:55 Ipratropium 0.5 Mg/Albuterol Sulfate 2.5 Mg Ampul.Neb 3 Ml INHALATION 3 ml Q6HRT BARBARA Administration Amiodarone HCl 400 mg 07/09/24 12:20 07/14/24 09:19 Amiodarone Hcl 200 Mg Tablet PO 400 mg Q12HR BARBARA Administration Aspirin 81 mg 07/01/24 08:00 07/13/24 08:24 Aspirin 81 Mg Chewable Tablet PO 81 mg DAILY@0800 BARBARA Administration Atorvastatin Calcium 40 mg 06/29/24 09:00 07/14/24 09:19 Atorvastatin 40 Mg Tablet PO 40 mg DAILY BARBARA Administration Dextrose 12.5 gm 06/29/24 08:08 Dextrose 50% 25 Gm/50 Ml Syringe IV PUSH PRN PRN Hypoglycemia Protocol Glucagon 1 mg 06/29/24 08:08 Glucagon For Inj 1 Mg Vial IM PRN PRN Hypoglycemia Protocol Glucose 15 gm 06/29/24 08:08 Glucose Oral Gel 15 Gm Of Glucse In 37.5 Gm Tube PO PRN PRN Hypoglycemia Protocol Heparin Sodium (Porcine) 5,000 units 07/07/24 11:24 Heparin Sodium 5,000 Units/Ml Vial IV PUSH PRN PRN aPTT less than 55 seconds Heparin Sodium (Porcine) 2,500 units 07/07/24 11:24 07/09/24 07:21 Heparin Sodium 5,000 Units/Ml Vial IV PUSH 2,500 units PRN PRN Administration aPTT 55 - 70 seconds Hydralazine HCl 10 mg 07/06/24 16:42 07/06/24 17:03 Hydralazine Hcl 20 Mg/Ml Vial IV PUSH 10 mg Q4H PRN Administration Blood Pressure - High Dextrose 1,000 mls @ 100 mls/hr 06/29/24 08:08 Dextrose 5% 1,000 Ml IVPB PRN PRN Hypoglycemia Protocol Heparin Sodium/Dextrose 25,000 units in 250 mls @ 0 mls/hr 07/07/24 11:25 07/10/24 08:52 Heparin Sodium/D5w 100 Units/Ml IV CONT 0 units/hr .Q0M BARBARA 0 mls/hr Titration Protocol Cefepime HCl 1 gm in 50 mls @ 100 mls/hr 07/08/24 11:00 07/14/24 09:19 Maxipime 1 Gm/Ns 50 Ml IVPB 07/15/24 10:59 100 mls/hr Q12HR BARBARA Administration Dexmedetomidine HCl 400 mcg in 100 mls @ 3.885 mls/hr 07/13/24 16:00 07/14/24 00:10 Precedex 400 Mcg/100 Ml IV CONT Not Given .[id number] BARBARA Protocol 0.2 MCG/KG/HR Insulin Aspart 3 - 6 units 06/29/24 12:00 07/14/24 06:56 Insulin Aspart (*Bkc) 100 Units/Ml SUB-Q Not Given Q6HR [facility] Protocol Insulin Glargine 8 units 07/06/24 09:00 07/14/24 09:19 Insulin Glargine (*Bkc) 100 Units/Ml SUB-Q 8 units DAILY BARBARA Administration Levothyroxine Sodium 50 mcg 06/30/24 06:30 07/14/24 06:57 Levothyroxine Sodium 50 Mcg Tablet FEED TUBE 50 mcg DAILY@0630 BARBARA Administration Multi-Ingred Cream/Lotion/Oil/Oint 1 applic 06/29/24 09:00 07/14/24 09:20 Mineral Oil/White Petrolatum Ointment EACH EYE 1 applic Q12HR BARBARA Administration Pantoprazole Sodium 40 mg 07/06/24 21:00 07/14/24 09:18 Pantoprazole Sodium Iv 40 Mg Vial IV PUSH 40 mg Q12HR BARBARA Administration Sodium Chloride 10 ml 06/29/24 14:00 07/14/24 06:57 Central Line Flush IV PUSH 10 ml Q8HR BARBARA Administration Sodium Chloride 10 ml 06/29/24 12:40 Central Line Flush IV PUSH PRN PRN with TPN bag changes Sodium Chloride 20 ml 06/29/24 12:40 Central Line Flush IV PUSH PRN PRN after blood draws Vancomycin HCl 1 each 07/08/24 10:48 Vancomycin For Acute Kidney Injury IVPB 07/15/24 10:47 PRN PRN Vancomycin Protocol Radiology Results: ITS Impressions Abdomen X-Ray 06/28/24 20:03 IMPRESSION: Nasogastric tube in good position and ready for immediate use. Abdomen Ultrasound 07/03/24 14:12 IMPRESSION: 1. Normal right upper quadrant ultrasound status post cholecystectomy. Renal Ultrasound 07/06/24 08:30 IMPRESSION: 1. No hydronephrosis in either kidney. Head CT 07/08/24 10:08 IMPRESSION: 1. No acute intracranial process. 2. 8 mm calcified extra-axial mass overlying the left parietal lobe most consistent with a meningioma. Chest X-Ray 07/14/24 06:34 Impression: COPD. Worsening hazy and interstitial disease the lung bases and left perihilar region. Correlate for superimposed pulmonary edema or pneumonia. Support tubes, as above. Labs Labs: Laboratory Results - last 24 hr 07/13/24 07/13/24 07/13/24 11:44 17:23 23:50 WBC 22.5 H RBC 3.11 L Hgb 9.2 L Hct 28.6 L MCV 92.0 MCH 29.6 MCHC 32.2 RDW 17.2 H Plt Count 263 MPV 12.7 H Immature Gran % (Auto) Neut % (Auto) Lymph % (Auto) Wright % (Auto) Eos % (Auto) Baso % (Auto) Lymph # (Auto) Wright # (Auto) Eos # (Auto) Baso # (Auto) Abs Immat Gran (auto) Absolute Neuts (auto) Absolute Nucleated RBC Nucleated RBC % Platelet Estimate Hypochromasia Anisocytosis Ovalocytes Acanthocytes (Spur) Schistocytes Puncture Site ABG pH ABG pCO2 ABG pO2 ABG PO2/FiO2 Ratio ABG HCO3 ABG O2 Saturation ABG O2 Content ABG Base Excess A-a Gradient Oxyhemoglobin Carboxyhemoglobin Methemoglobin Reduced Hemoglobin Total Hemoglobin O2 Delivery Device O2 Liters/Min Minute Volume Vent Rate Vent Mode FiO2 Tidal Volume PEEP Peak Inspir Pressure Pressure Support Sodium Potassium Chloride Carbon Dioxide Anion Gap BUN Creatinine Estim Creat Clear Calc Estimated GFR Glucose POC Capillary Glucose 132 H 146 H Calcium Phosphorus Magnesium Total Bilirubin AST ALT Alkaline Phosphatase Total Protein Albumin Random Vancomycin Hep Bs Antigen Hep Bs Antibody 07/14/24 07/14/24 07/14/24 04:51 06:48 06:53 WBC 26.3 H RBC 3.24 L Hgb 9.5 L Hct 29.5 L MCV 91.0 MCH 29.3 MCHC 32.2 RDW 17.9 H Plt Count 330 MPV 11.0 H Immature Gran % (Auto) 1.0 H Neut % (Auto) 88.3 H Lymph % (Auto) 3.2 L Wright % (Auto) 6.8 Eos % (Auto) 0.5 Baso % (Auto) 0.2 Lymph # (Auto) 0.83 L Wright # (Auto) 1.8 H Eos # (Auto) 0.1 Baso # (Auto) 0.1 Abs Immat Gran (auto) 0.27 H Absolute Neuts (auto) 23.3 H Absolute Nucleated RBC 0.020 H Nucleated RBC % 0.1 Platelet Estimate Adequate Hypochromasia 1+ Anisocytosis 1+ Ovalocytes 1+ Acanthocytes (Spur) 1+ Schistocytes Rare Puncture Site Left radial ABG pH 7.347 L ABG pCO2 45.4 H ABG pO2 74.4 L ABG PO2/FiO2 Ratio 1.35 ABG HCO3 24.3 ABG O2 Saturation 94.2 L ABG O2 Content 13.3 L ABG Base Excess -1.4 A-a Gradient 267.2 Oxyhemoglobin 93.4 Carboxyhemoglobin 0.3 Methemoglobin 0.3 Reduced Hemoglobin 6.0 H Total Hemoglobin 10.1 L O2 Delivery Device Ventilator O2 Liters/Min Not Reportable Minute Volume Not Reportable Vent Rate 16 Vent Mode Cmv FiO2 55 Tidal Volume 480 PEEP 8 Peak Inspir Pressure Not Reportable Pressure Support Not Reportable Sodium 143 Potassium 4.9 Chloride 106 Carbon Dioxide 26 Anion Gap 11 BUN 142 H D Creatinine 3.25 H Estim Creat Clear Calc 13 Estimated GFR 17 L Glucose 160 H POC Capillary Glucose 170 H Calcium 9.4 Phosphorus 5.6 H Magnesium 2.5 H Total Bilirubin 0.6 AST 40 H ALT 38 H Alkaline Phosphatase 149 H Total Protein 6.0 L Albumin 3.2 L Random Vancomycin 18.8 Hep Bs Antigen Negative Hep Bs Antibody Negative 07/14/24 11:12 WBC RBC Hgb Hct MCV MCH MCHC RDW Plt Count MPV Immature Gran % (Auto) Neut % (Auto) Lymph % (Auto) Wright % (Auto) Eos % (Auto) Baso % (Auto) Lymph # (Auto) Wright # (Auto) Eos # (Auto) Baso # (Auto) Abs Immat Gran (auto) Absolute Neuts (auto) Absolute Nucleated RBC Nucleated RBC % Platelet Estimate Hypochromasia Anisocytosis Ovalocytes Acanthocytes (Spur) Schistocytes Puncture Site ABG pH ABG pCO2 ABG pO2 ABG PO2/FiO2 Ratio ABG HCO3 ABG O2 Saturation ABG O2 Content ABG Base Excess A-a Gradient Oxyhemoglobin Carboxyhemoglobin Methemoglobin Reduced Hemoglobin Total Hemoglobin O2 Delivery Device O2 Liters/Min Minute Volume Vent Rate Vent Mode FiO2 Tidal Volume PEEP Peak Inspir Pressure Pressure Support Sodium Potassium Chloride Carbon Dioxide Anion Gap BUN Creatinine Estim Creat Clear Calc Estimated GFR Glucose POC Capillary Glucose 196 H Calcium Phosphorus Magnesium Total Bilirubin AST ALT Alkaline Phosphatase Total Protein Albumin Random Vancomycin Hep Bs Antigen Hep Bs Antibody Quality VTE Prophylaxis VTE prophylaxis: pharmacologic ordered
[2024-07-14 13:34] LABS: PRA 2.87 ng/mL/h (0.25-5.82)
[2024-07-14] MEDS: FLUCONAZOLE 100 MG TABLET FEED TUBE (17:32)
[2024-07-14 17:47] LABS: Glucose Point of Care 175 mg/dl (65-105)
[2024-07-15] VITALS (25 sets, daily range): BP systolic 115–165; BP diastolic 44–73; PULSE 69–98; RESP 16–30; TEMP 36.4–37.2; O2SAT 91–100
[2024-07-15 00:39] LABS: Glucose Point of Care 174 mg/dl (65-105)
[2024-07-15] MEDS: IPRATROPIUM 0.5 MG/ALBUTEROL SULFATE 2.5 MG AMPUL.NEB 3 ML INHALATION ×4 (02:42→20:07)
[2024-07-15 05:23] LABS: Alveolar/Arterial O2 Gradient 278.8 mmHg; Base Excess ABG -2.2 mEq/l (+/-2.0); Carboxyhemoglobin 0.5 % THb (0-2.0); Fractional Inspired Oxygen 55 %; HCO3 ABG 22.4 mEq/l (22.0-26.0); Oxygen Content ABG 12.3 %vol (16.0-22.0); Oxygen Saturation ABG 94.5 % (95.0-100.0); Oxyhemoglobin 94.1 % THb (90.0-100.0); PCO2 ABG 37.3 mmHg (35.0-45.0); PO2 ABG 71.9 mmHg (80.0-100.0); PO2 FiO2 Ratio Arterial Blood 1.31 %; Reduced Hemoglobin 5.4 %THb (0-5.0); Total Hemoglobin 9.2 g/dL (12.0-18.0); pH ABG 7.396 (7.350-7.450)
[2024-07-15 05:25] LABS: Hematocrit 26.7 % (37.0-47.0); Hemoglobin 8.6 g/dL (12.0-15.0); Mean Corpuscular HGB Conc 32.2 g/dl (32-36); Mean Corpuscular Hemoglobin 29.7 pg (26-34); Mean Corpuscular Volume 92.1 fl (80-100); Platelet Count Result 282 k/mm3 (150-375); Red Cell Distribution Width 17.6 % (11.5-14.5); White Blood Count 22.6 K/mm3 (4.5-10.0)
[2024-07-15 05:56] LABS: Device VENTILATOR; Site Drawn LEFT RADIAL
[2024-07-15 05:57] LABS: Alanine Aminotransferase 24 U/L (6-35); Albumin Level 2.9 g/dL (3.5-5.1); Alkaline Phosphatase 136 U/L (38-126); Anion Gap 12 mmol/L (4-12); Arterial Blood Gas PEEP 8 cmH2O; Arterial Blood Gas Tidal Volume 480 ml; Arterial Blood Gas Vent Mode CMV; Arterial Blood Gas Ventilator rate 16 /MIN; Aspartate Amino Transferase 34 U/L (14-36); Bilirubin,Total 0.5 mg/dL (0.2-1.3); Calcium 9.2 mg/dL (8.4-10.2); Carbon Dioxide 22 mmol/L (22-30); Chloride 109 mmol/L (98-107); Estimated CRCL calculation 13 ml/min; Estimated Glomerular Filt Rate 16; Glucose 155 mg/dL (65-110); Magnesium 2.6 mg/dL (1.6-2.3); Potassium 4.4 mmol/L (3.4-5.0); Sodium 143 mmol/L (137-145)
[2024-07-15 06:02] LABS: Blood Urea Nitrogen 168 mg/dL (7-17)
[2024-07-15] MEDS: CENTRAL LINE FLUSH 10 ML IV PUSH ×3 (06:05→20:56)
[2024-07-15] MEDS: LEVOTHYROXINE SODIUM 50 MCG TABLET FEED TUBE (06:51)
[2024-07-15] MEDS: AMIODARONE HCL 200 MG TABLET 400 MG PO ×2 (08:51→20:56)
[2024-07-15] MEDS: MINERAL OIL/WHITE PETROLATUM OINTMENT 1 APPLIC EACH EYE ×2 (08:52→20:56)
[2024-07-15] MEDS: CEFEPIME 1 GM/NS 50 ML 1 GM/50 ML BAG IVPB (08:52)
[2024-07-15] MEDS: PANTOPRAZOLE SODIUM IV 40 MG VIAL IV PUSH ×2 (08:52→20:55)
[2024-07-15] MEDS: FLUCONAZOLE 100 MG TABLET FEED TUBE (08:52)
[2024-07-15] MEDS: ATORVASTATIN 40 MG TABLET PO (08:52)
--- NOTE | 2024-07-15 09:19 | WPDINTPN ---
Progress Note: A&P Assessment and Plan (1) Atrial fibrillation with RVR: Code(s): I48.91 - Unspecified atrial fibrillation Status: Acute Assessment and Plan: 07/06 evening: Patient went into SVT, status post adenosine 6 mg and 12 mg, underlying rhythm was AFib RVR, converted to normal sinus rhythm with IV metoprolol x1 and increasing her sedation. Patient remained in sinus rhythm also the morning of 07/07/2024. Off anticoagulation due to drop in hemoglobin coffee-ground emesis 07/06; TSH level within normal limits, troponin level with no change since admission Cardiology following On p.o. amiodarone Currently in sinus rhythm (2) Acute on chronic respiratory failure with hypoxia and hypercapnia: Code(s): J96.21 - Acute and chronic respiratory failure with hypoxia; J96.22 - Acute and chronic respiratory failure with hypercapnia Status: Acute Assessment and Plan: Acute on chronic respiratory failure secondary to severe COPD exacerbation. Community-acquired pneumonia although chest x-ray is not suggestive and patient is low procalcitonin level. WBC elevated MRSA screen negative 06/28/2024: Intubated in the ED 06/28: Blood cultures negative x2 -status post course of ceftriaxone and doxycycline -DC vancomycin (06/29), MRSA screen negative Patient failed her weaning trial on multiple days and eventually had tracheostomy done on 07/13 Now weaned off of sedation Chest x-ray reviewed Wean FiO2 Not a candidate for weaning trial at this time CT chest 07/14 IMPRESSION: 1. Bilateral lower lobe pneumonia. 2. Small pleural effusions. 3. Severe emphysema. (3) Acute exacerbation of chronic obstructive pulmonary disease: Code(s): J44.1 - Chronic obstructive pulmonary disease with (acute) exacerbation Status: Acute Assessment and Plan: Continue mechanical ventilation, bronchodilators, antibiotics, -patient has previous tracheostomy scar likely related to COPD exacerbation (4) Elevated troponin: Code(s): R77.8 - Other specified abnormalities of plasma proteins Status: Acute Assessment and Plan: Patient has elevated troponin likely secondary to demand ischemia from acute respiratory failure. EKG reviewed and does not show any ST elevation. Patient does not have any documented history of coronary disease. Troponins trending down Continue daily statin Aspirin is on hold due to anemia Appreciate cardiology evaluation and recommendation 06/29/2024: Echocardiogram Summary 1. The left ventricle is normal in size with thickened left ventricular rodríguez. The overall left ventricular systolic function appears preserved. Cannot rule out very mild hypokinesis of the apical wall. 2. The right ventricle is normal in size and systolic function. 3. The there is a small amount of pericardial effusion with no echocardiographic evidence of cardiac tamponade. (5) Hypothyroidism: Code(s): E03.9 - Hypothyroidism, unspecified Status: Acute Assessment and Plan: Continue levothyroxine. -07/06: TSH level - within normal limits (6) Electrolyte abnormality: Code(s): E87.8 - Other disorders of electrolyte and fluid balance, not elsewhere classified Status: Acute Assessment and Plan: Potassium levels within normal limits -appreciate Nephrology evaluation and recommendations (7) Elevated LFTs: Code(s): R79.89 - Other specified abnormal findings of blood chemistry Status: Acute Assessment and Plan: Right upper quadrant ultrasound was normal, status post cholecystectomy -hepatitis panel was within normal limit (8) RASHEL (acute kidney injury): Code(s): N17.9 - Acute kidney failure, unspecified Status: Acute Assessment and Plan: Acute kidney injury, likely related to hypotension, intravascular volume depletion, BUN elevated likely related to steroids -nephrology has been consulted and appreciate the evaluation and recommendation -discuss with Nephrology, will start albumin 25% x4 doses since she may be intravascularly depleted -monitor urine output, renal function electrolytes 07/06: Renal ultrasound: No hydronephrosis in either kidney. Creatinine and BUN continues to increase. Although patient is still producing urine I have discussed the Nephrology and will proceed with initiation of hemodialysis. Patient's is agreeable to proceed and has consented. General surgery is planning to place tunneled catheter today (9) Hyperglycemia: Code(s): R73.9 - Hyperglycemia, unspecified Status: Acute Assessment and Plan: Hyperglycemia likely related to tube feeds and or steroid Off steroid -continue Accu-Cheks and sliding scale insulin, Hold Lantus as patient is NPO (10) Anemia: Code(s): D64.9 - Anemia, unspecified Status: Acute Assessment and Plan: Patient dropped her hemoglobin to 8.3 from 10.9 (07/05) -07/06/2024: Stool occult was positive -iron panel did not show any iron deficiency, normal folate level -low vitamin B12 level, will give IM cyanocobalamin weekly x2 doses -continue Protonix to IV q.12 hours -appreciate GI evaluation , no endoscopy recommended at this time -hemoglobin remains stable 07/10: Patient dropped hemoglobin to 6.7 again, received 1 unit of packed RBCs. Heparin infusion was discontinued (which was for new onset atrial fibrillation RVR). 07/13: Hemoglobin dropped to 6.9 this morning, transfused 1 unit of packed RBCs, continue to monitor -hemoglobin stable, continue monitor (11) Encephalopathy: Code(s): G93.40 - Encephalopathy, unspecified Status: Acute Assessment and Plan: Metabolic and uremic -07/08: stat CT scan of the brain: 1. No acute intracranial process.2. 8 mm calcified extra-axial mass overlying the left parietal lobe most consistent with a meningioma. -ammonia level <9 -continue to monitor (12) Shock: Code(s): R57.9 - Shock, unspecified Status: Acute Assessment and Plan: 07/11: Patient with hypotension overnight, given IV fluid bolus. Started on Levophed, maintain MAP > 65 mmHg for adequate end organ perfusion especially renal perfusion -continue cefepime and vancomycin (07/08) for a total of 7 days -07/08: Blood cultures with no growth x2 -07/08: Sputum culture growing yeast 07/13: Levophed has been turned off on 07/11 at 4:00 p.m. . Blood pressures have been adequate, continue to monitor (13) UTI (urinary tract infection): Code(s): N39.0 - Urinary tract infection, site not specified Status: Acute Assessment and Plan: Urine cultures growing Karla albicans In light of elevated WBC will start patient on for consult goals Plan DVT prophylaxis -SCDs, no chemoprophylaxis due to anemia requiring blood transfusion Stress ulcer prophylaxis -PPI IV q.12 hours Nutrition -tolerating tube feeds but are currently on hold for the procedure Code Status - Full Code Total Critical Care Time - 30 minutes Due to a high probability of clinically significant, life threatening deterioration, the patient required my highest level of preparedness to intervene emergently and I personally spent this critical care time directly and personally managing the patient. This critical care time included obtaining a history; examining the patient; pulse oximetry; ordering and review of studies; arranging urgent treatment with development of a management plan; evaluation of patient's response to treatment; frequent reassessment; and discussions with other providers. It was exclusive of separately billable procedures and treating other patients and teaching time. Please see Assessment and Plan section and the rest of the note for further information on patient assessment and treatment This dictation may have been done utilizing a voice recognition system. Attempts have been made to correct errors. However, there may be uncorrected grammatical, spelling, and recognitions errors present. Subjective Date/time seen: 07/15/24 Overnight events reviewed. Afebrile Continues to be on mechanical ventilation 55% FiO2 Off infusion Urine output on the lower side Tube feeds held for the procedure Other Vitals acceptable Interval history: Reason for consult: COPD exacerbation, acute hypercapnic respiratory failure, NSTEMI with elevated troponin 07/08: CT brain was negative, was done for encephalopathy 07/10: PEG tube placement by GI 07/13: Tracheostomy placed by ENT Review of Systems Review of Systems: ROS unobtainable: Yes unobtainable due to endotracheal tube, unobtainable due to medical condition and unobtainable due to mental status Exam Narrative: General: Pt is sedated and intubated and on mechanical ventilation HEENT: Pupils equal and reactive, sclera is clear, trach in place Lungs/Chest: Trachea central, adequate air entry, coarse breath sounds at bases, no wheezing., rales noted on left lower lobe Cardiac: Sinus rhythm, rate controlled Abdomen: Decreased bowel sounds. Nontender, nondistended Obese. Soft. . PEG in place Extremities: Positive edema, anasarca up to the thighs : Goddard in place Neurologic: Intubated, sedated opens her eyes and follow simple commands with all 4 extremities, grimaces to pain but does not withdraw. Objective Data Vital Signs Vital Signs: Vital Signs - 24 hr 07/14/24 10:07/14/24 10:07/14/24 11:27 Temperature 36.6 C Pulse Rate 75 75 75 Respiratory Rate 18 Blood Pressure 126/56 L Pulse Oximetry 95 94 Oxygen Delivery Mechanical Ventilation Fraction of Inspired Oxygen 55 07/14/24 12:00 07/14/24 12:00 07/14/24 12:00 Temperature Pulse Rate 76 Respiratory Rate Blood Pressure Pulse Oximetry 94 Oxygen Delivery Mechanical Ventilation Fraction of Inspired Oxygen 55 55 07/14/24 12:00 07/14/24 13:54 07/14/24 13:54 Temperature 36.7 C Pulse Rate 75 74 74 Respiratory Rate 25 H 18 Blood Pressure 135/59 L Pulse Oximetry 94 94 Oxygen Delivery Mechanical Ventilation Fraction of Inspired Oxygen 55 07/14/24 14:00 07/14/24 14:00 07/14/24 14:12 Temperature 36.6 C Pulse Rate 74 74 74 Respiratory Rate 22 H 26 H Blood Pressure 147/64 H Pulse Oximetry 94 Oxygen Delivery Fraction of Inspired Oxygen 07/14/24 16:00 07/14/24 16:00 07/14/24 16:00 Temperature Pulse Rate 75 Respiratory Rate Blood Pressure Pulse Oximetry 94 Oxygen Delivery Mechanical Ventilation Fraction of Inspired Oxygen 55 55 07/14/24 16:00 07/14/24 17:13 07/14/24 18:00 Temperature 36.8 C Pulse Rate 73 76 Respiratory Rate 18 Blood Pressure 125/42 L Pulse Oximetry 96 Oxygen Delivery Mechanical Ventilation Fraction of Inspired Oxygen 55 07/14/24 18:00 07/14/24 19:58 07/14/24 19:58 Temperature 36.7 C Pulse Rate 76 75 75 Respiratory Rate 18 19 Blood Pressure 160/58 H Pulse Oximetry 95 96 Oxygen Delivery Mechanical Ventilation Fraction of Inspired Oxygen 55 07/14/24 20:00 07/14/24 20:00 07/14/24 20:00 Temperature 36.8 C Pulse Rate 76 77 Respiratory Rate 18 21 H Blood Pressure 153/62 H Pulse Oximetry 95 95 Oxygen Delivery Mechanical Ventilation Fraction of Inspired Oxygen 55 55 07/14/24 20:00 07/14/24 20:24 07/14/24 22:00 Temperature 36.8 C Pulse Rate 76 76 76 Respiratory Rate 20 Blood Pressure 160/56 H Pulse Oximetry 95 Oxygen Delivery Fraction of Inspired Oxygen 07/14/24 22:00 07/14/24 23:05 07/14/24 23:42 Temperature Pulse Rate 76 76 Respiratory Rate Blood Pressure Pulse Oximetry 94 Oxygen Delivery Mechanical Ventilation Fraction of Inspired Oxygen 55 55 07/14/24 23:43 07/15/24 00:00 07/15/24 00:00 Temperature 36.9 C Pulse Rate 76 98 75 Respiratory Rate 18 21 H Blood Pressure 141/63 H Pulse Oximetry 95 97 Oxygen Delivery Mechanical Ventilation Fraction of Inspired Oxygen 55 07/15/24 02:00 07/15/24 02:00 07/15/24 02:42 Temperature 37.2 C Pulse Rate 70 70 75 Respiratory Rate 17 Blood Pressure 120/50 L Pulse Oximetry 100 95 Oxygen Delivery Mechanical Ventilation Fraction of Inspired Oxygen 55 07/15/24 02:42 07/15/24 04:00 07/15/24 04:00 Temperature Pulse Rate 75 76 Respiratory Rate 16 18 Blood Pressure Pulse Oximetry 95 Oxygen Delivery Mechanical Ventilation Fraction of Inspired Oxygen 55 55 07/15/24 04:00 07/15/24 04:00 07/15/24 05:43 Temperature 37.1 C Pulse Rate 78 78 79 Respiratory Rate 18 Blood Pressure 160/62 H Pulse Oximetry 94 96 Oxygen Delivery Mechanical Ventilation Fraction of Inspired Oxygen 55 07/15/24 06:00 07/15/24 06:00 07/15/24 07:52 Temperature 37.0 C Pulse Rate 77 77 76 Respiratory Rate 23 H 17 Blood Pressure 165/70 H Pulse Oximetry 96 Oxygen Delivery Fraction of Inspired Oxygen 07/15/24 07:52 07/15/24 08:51 Temperature Pulse Rate 76 79 Respiratory Rate Blood Pressure Pulse Oximetry 94 Oxygen Delivery Mechanical Ventilation Fraction of Inspired Oxygen 55 Intake/Output Intake/Output: Intake & Output 07/12/24 07/13/24 07/14/24 07/15/24 23:59 23:59 23:59 23:59 Intake Total 1874.5 1614.5 1988 740 Output Total 272 156 6058 300 Balance 999.5 914.5 988 440 Meds/Results Medications: Active Medications Generic Name Dose Route Start Last Admin Trade Name Freq PRN Reason Stop Dose Admin Albuterol/Ipratropium 3 ml 06/29/24 02:00 07/15/24 07:45 Ipratropium 0.5 Mg/Albuterol Sulfate 2.5 Mg Ampul.Neb 3 Ml INHALATION 3 ml Q6HRT BARBARA Administration Amiodarone HCl 400 mg 07/09/24 12:20 07/15/24 08:51 Amiodarone Hcl 200 Mg Tablet PO 400 mg Q12HR BARBARA Administration Aspirin 81 mg 07/01/24 08:00 07/13/24 08:24 Aspirin 81 Mg Chewable Tablet PO 81 mg DAILY@0800 BARBARA Administration Atorvastatin Calcium 40 mg 06/29/24 09:00 07/15/24 08:52 Atorvastatin 40 Mg Tablet PO 40 mg DAILY BARBARA Administration Dextrose 12.5 gm 06/29/24 08:08 Dextrose 50% 25 Gm/50 Ml Syringe IV PUSH PRN PRN Hypoglycemia Protocol Fluconazole 100 mg 07/14/24 14:20 07/15/24 08:52 Fluconazole 100 Mg Tablet FEED TUBE 07/27/24 09:01 100 mg QAM BARBARA Administration Glucagon 1 mg 06/29/24 08:08 Glucagon For Inj 1 Mg Vial IM PRN PRN Hypoglycemia Protocol Glucose 15 gm 06/29/24 08:08 Glucose Oral Gel 15 Gm Of Glucse In 37.5 Gm Tube PO PRN PRN Hypoglycemia Protocol Heparin Sodium (Porcine) 5,000 units 07/07/24 11:24 Heparin Sodium 5,000 Units/Ml Vial IV PUSH PRN PRN aPTT less than 55 seconds Heparin Sodium (Porcine) 2,500 units 07/07/24 11:24 07/09/24 07:21 Heparin Sodium 5,000 Units/Ml Vial IV PUSH 2,500 units PRN PRN Administration aPTT 55 - 70 seconds Hydralazine HCl 10 mg 07/06/24 16:42 07/06/24 17:03 Hydralazine Hcl 20 Mg/Ml Vial IV PUSH 10 mg Q4H PRN Administration Blood Pressure - High Dextrose 1,000 mls @ 100 mls/hr 06/29/24 08:08 Dextrose 5% 1,000 Ml IVPB PRN PRN Hypoglycemia Protocol Heparin Sodium/Dextrose 25,000 units in 250 mls @ 0 mls/hr 07/07/24 11:25 07/10/24 08:52 Heparin Sodium/D5w 100 Units/Ml IV CONT 0 units/hr .Q0M BARBARA 0 mls/hr Titration Protocol Cefepime HCl 1 gm in 50 mls @ 100 mls/hr 07/08/24 11:00 07/15/24 08:52 Maxipime 1 Gm/Ns 50 Ml IVPB 07/15/24 10:59 100 mls/hr Q12HR BARBARA Administration Dexmedetomidine HCl 400 mcg in 100 mls @ 3.885 mls/hr 07/13/24 16:00 07/14/24 16:20 Precedex 400 Mcg/100 Ml IV CONT Not Given .[id number] BARBARA Protocol 0.2 MCG/KG/HR Insulin Aspart 3 - 6 units 06/29/24 12:00 07/15/24 06:05 Insulin Aspart (*Bkc) 100 Units/Ml SUB-Q Not Given Q6HR [facility] Protocol Insulin Glargine 12 units 07/15/24 21:00 Insulin Glargine (*Bkc) 100 Units/Ml SUB-Q HS BARBARA Levothyroxine Sodium 50 mcg 06/30/24 06:30 07/15/24 06:51 Levothyroxine Sodium 50 Mcg Tablet FEED TUBE 50 mcg DAILY@0630 BARBARA Administration Multi-Ingred Cream/Lotion/Oil/Oint 1 applic 06/29/24 09:00 07/15/24 08:52 Mineral Oil/White Petrolatum Ointment EACH EYE 1 applic Q12HR BARBARA Administration Pantoprazole Sodium 40 mg 07/06/24 21:00 07/15/24 08:52 Pantoprazole Sodium Iv 40 Mg Vial IV PUSH 40 mg Q12HR BARBARA Administration Sodium Chloride 10 ml 06/29/24 14:00 07/15/24 06:05 Central Line Flush IV PUSH 10 ml Q8HR BARBARA Administration Sodium Chloride 10 ml 06/29/24 12:40 Central Line Flush IV PUSH PRN PRN with TPN bag changes Sodium Chloride 20 ml 06/29/24 12:40 Central Line Flush IV PUSH PRN PRN after blood draws Vancomycin HCl 1 each 07/08/24 10:48 Vancomycin For Acute Kidney Injury IVPB 07/15/24 10:47 PRN PRN Vancomycin Protocol Radiology Results: ITS Impressions Abdomen X-Ray 06/28/24 20:03 IMPRESSION: Nasogastric tube in good position and ready for immediate use. Abdomen Ultrasound 07/03/24 14:12 IMPRESSION: 1. Normal right upper quadrant ultrasound status post cholecystectomy. Renal Ultrasound 07/06/24 08:30 IMPRESSION: 1. No hydronephrosis in either kidney. Head CT 07/08/24 10:08 IMPRESSION: 1. No acute intracranial process. 2. 8 mm calcified extra-axial mass overlying the left parietal lobe most consistent with a meningioma. Chest/Abdomen/Pelvis CT 07/14/24 15:26 IMPRESSION: 1. Bilateral lower lobe pneumonia. 2. Small pleural effusions. 3. Severe emphysema. Chest X-Ray 07/15/24 05:49 Impression: Patchy bibasilar airspace consolidation, compatible pneumonia or possibly pulmonary edema. Underlying COPD. Support tubes, as above. Labs Labs: Laboratory Results - last 24 hr 07/06/24 07/14/24 07/14/24 06:40 11:12 17:32 WBC RBC Hgb Hct MCV MCH MCHC RDW Plt Count MPV Puncture Site ABG pH ABG pCO2 ABG pO2 ABG PO2/FiO2 Ratio ABG HCO3 ABG O2 Saturation ABG O2 Content ABG Base Excess A-a Gradient Oxyhemoglobin Carboxyhemoglobin Methemoglobin Reduced Hemoglobin Total Hemoglobin O2 Delivery Device O2 Liters/Min Minute Volume Vent Rate Vent Mode FiO2 Tidal Volume PEEP Peak Inspir Pressure Pressure Support Sodium Potassium Chloride Carbon Dioxide Anion Gap BUN Creatinine Estim Creat Clear Calc Estimated GFR Glucose POC Capillary Glucose 196 H 175 H Calcium Magnesium Total Bilirubin AST ALT Alkaline Phosphatase Total Protein Albumin Renin Activity 2.87 Aldosterone/Renin Dir See note 07/15/24 07/15/24 00:24 05:07 WBC 22.6 H RBC 2.90 L Hgb 8.6 L Hct 26.7 L MCV 92.1 MCH 29.7 MCHC 32.2 RDW 17.6 H Plt Count 282 MPV 12.0 H Puncture Site Left radial ABG pH 7.396 ABG pCO2 37.3 ABG pO2 71.9 L ABG PO2/FiO2 Ratio 1.31 ABG HCO3 22.4 ABG O2 Saturation 94.5 L ABG O2 Content 12.3 L ABG Base Excess -2.2 A-a Gradient 278.8 Oxyhemoglobin 94.1 Carboxyhemoglobin 0.5 Methemoglobin 0.0 Reduced Hemoglobin 5.4 H Total Hemoglobin 9.2 L O2 Delivery Device Ventilator O2 Liters/Min Not Reportable Minute Volume Not Reportable Vent Rate 16 Vent Mode Cmv FiO2 55 Tidal Volume 480 PEEP 8 Peak Inspir Pressure Not Reportable Pressure Support Not Reportable Sodium 143 Potassium 4.4 Chloride 109 H Carbon Dioxide 22 Anion Gap 12 BUN 168 H D Creatinine 3.35 H Estim Creat Clear Calc 13 Estimated GFR 16 L Glucose 155 H POC Capillary Glucose 174 H Calcium 9.2 Magnesium 2.6 H Total Bilirubin 0.5 AST 34 ALT 24 Alkaline Phosphatase 136 H Total Protein 6.0 L Albumin 2.9 L Renin Activity Aldosterone/Renin Dir Quality VTE Prophylaxis VTE prophylaxis: pharmacologic ordered
--- NOTE | 2024-07-15 10:39 | PCFNICU ---
ICU Rounding Note: Pt current nutrition is Nepro at 40 ml/hr with Ish BID Last recorded weight is 78.9 kg, up from 64.3 kg on admit. Bowel Motility: Last reported BM 07/10 Labs Reviewed: Mg 2.6, BUN 168, Cr 3.35, GFR 16, Alb 2.9 Meds Noted: Lantus, NovoLog, Protonix, Lovenox, NS Skin: Deep Tissue-coccyx. Additional Notes: Patient current with Trach/PEG. Tube feedings continue to be tolerated at 40 ml/hr with water flush of 100 ml q 4 hours. Protein Modular of Ish BID for wound healing. Plans for Dialysis today. Agree with diet orders. Following daily in ICU rounds. Will monitor weight, labs, skin, diet orders, meds, tube feedings tolerance every Saturday and Saturday.
--- NOTE | 2024-07-15 10:50 | P.PNNP_ITS ---
Progress Note: A&P Assessment and Plan (1) RASHEL (acute kidney injury): Code(s): N17.9 - Acute kidney failure, unspecified Status: Acute Assessment and Plan: * ongoing deterioration noted... * evaluation to date noted: * normal renal ultrasound * urine electrolytes prerenal (by FeUrea) * rare urine eosinophils (difficult to interpret given possible UTI) * CPK mildly elevated - follow trend * moderate proteinuria * etiology not clear but suspicion falls on: * possibly due to relative hypotension previously * intravascular volume depletion (?) * infection/sepsis * fluctuating hemodynamics * other (?) * continue to make good/reasonable urine output * she will need PHARMACISTS/dialysis more so for clearance of the uremic toxins * Surgery consulted for tunneled HD catheter placement later today * proceed with dialysis later today (if HD catheter placed relatively soon) versus tomorrow * follow trend of renal function and UOP (2) Acute on chronic respiratory failure with hypoxia and hypercapnia: Code(s): J96.21 - Acute and chronic respiratory failure with hypoxia; J96.22 - Acute and chronic respiratory failure with hypercapnia Status: Acute Assessment and Plan: * presumably due to COPD exacerbation * complicated by known history of chronic hypoxic/hypercapnic respiratory failure and CHERYL * remains on ventilator support * s/p tracheostomy (on 07/13) * weaned off steroids * ventilator weaning as tolerated (3) Shock: Code(s): R57.9 - Shock, unspecified Status: Acute Assessment and Plan: * fluctuating hemodynamics noted * hypotension on 07/11 evening despite IVF bolus requiring initiation of levophed * off vasopressor therapy at this time * culture data noted: * blood culture with no growth * sputum culture with yeast * urine culture with Karla * completed course of cefepime + vancomycin (4) Acute exacerbation of chronic obstructive pulmonary disease: Code(s): J44.1 - Chronic obstructive pulmonary disease with (acute) exacerbation Status: Acute Assessment and Plan: * presumed etiology of #2 * continue current therapy (5) Elevated troponin: Code(s): R77.8 - Other specified abnormalities of plasma proteins Status: Acute Assessment and Plan: * felt to be demand ischemia from acute respiratory failure * EKG noted * Cardiology recommendations noted * recent Echo noted (on 06/29): * left ventricular systolic function appears preserved * right ventricle is normal in size and systolic function. * small amount of pericardial effusion with no evidence of cardiac tamponade * ischemic evaluation when more stable (6) Atrial fibrillation with RVR: Code(s): I48.91 - Unspecified atrial fibrillation Status: Acute Assessment and Plan: * SVT noted on evening of 07/06 * s/p IV andenosine with underlying rhythm noted to be AFib RVR * converted to normal sinus rhythm with IV metoprolol x 1 * on 07/07, with weaning of sedation, patient went to AFib RVR again * now on amiodarone for rate control * heparin drip on hold due to #7 and reported history of coffee ground emesis * Cardiology following (7) Anemia: Code(s): D64.9 - Anemia, unspecified Status: Acute Assessment and Plan: * due to RASHEL and acute illness * however, hemooccult positive * GI recommendations noted * anemia studies without iron deficiency * normal folate * low B12 noted -- IM B12 given * on PPI * PRBC transfusion per protocol * start REMI onec dialysis initiated * follow trend of H/H (8) Elevated LFTs: Code(s): R79.89 - Other specified abnormal findings of blood chemistry Status: Acute Assessment and Plan: * noted on testing since 07/03 * RUQ u/s was normal - status post cholecystectomy * hepatitis panel normal * slow improvement Will continue to follow. L Subjective Date/time seen: 07/15/24 10:50 Interval history: Follow-up for acute kidney injury/acute renal failure. Awaiting tunneled HD catheter placement later today for initiation of dialysis; renal function/creatinine & BUN continue to worsen as noted by trend of AM labs and urine output appears to have declined as well; remains on ventilator support via tracheostomy at this time; stable hemodynamics noted. Exam 2 Narrative: General: elderly but WD/WN female on mechanical ventilation via tracheostomy Heart: normal S1 and S2; no rub Lungs: coarse breath sounds Abdomen: soft, nontender, nondistended, decreased bowel sounds Extremities: no cyanosis or clubbing; no edema Skin: no rash Objective Data Vital Signs Vital Signs: Vital Signs Temp Pulse Resp BP Pulse Ox O2 Del Method FiO2 07/15/24 10:00 98.4 F 78 22 H 141/71 H 95 07/15/24 08:51 79 07/15/24 08:00 55 07/15/24 08:00 94 Mechanical Ventilation 55 07/15/24 08:00 76 07/15/24 08:00 98.6 F 76 28 H 138/73 94 07/15/24 07:52 76 94 Mechanical Ventilation 55 07/15/24 07:52 76 17 07/15/24 06:00 77 07/15/24 06:00 98.6 F 77 23 H 165/70 H 96 07/15/24 05:43 79 96 Mechanical Ventilation 55 07/15/24 04:00 78 07/15/24 04:00 98.8 F 78 18 160/62 H 94 07/15/24 04:00 76 18 95 Mechanical Ventilation 55 07/15/24 04:00 55 07/15/24 02:42 75 16 07/15/24 02:42 75 95 Mechanical Ventilation 55 07/15/24 02:00 70 07/15/24 02:00 98.9 F 70 17 120/50 L 100 07/15/24 00:00 98.4 F 75 21 H 141/63 H 97 07/15/24 00:00 98 07/14/24 23:43 76 18 95 Mechanical Ventilation 55 07/14/24 23:42 55 07/14/24 23:05 76 94 Mechanical Ventilation 55 07/14/24 22:00 76 07/14/24 22:00 98.3 F 76 20 160/56 H 95 07/14/24 20:24 76 07/14/24 20:00 76 07/14/24 20:00 98.3 F 77 21 H 153/62 H 95 07/14/24 20:00 76 18 95 Mechanical Ventilation 55 07/14/24 20:00 55 07/14/24 19:58 75 19 07/14/24 19:58 75 96 Mechanical Ventilation 55 Intake/Output Intake/Output: Intake & Output 07/12/24 07/13/24 07/14/24 07/15/24 23:59 23:59 23:59 23:59 Intake Total 1874.5 1614.5 1988 1060 Output Total 253 392 3580 1400 Balance 999.5 914.5 988 -340 Meds/Results Medications: Active Medications Generic Name Dose Route Start Last Admin Trade Name Freq PRN Reason Stop Dose Admin Albuterol/Ipratropium 3 ml 06/29/24 02:00 07/15/24 13:25 Ipratropium 0.5 Mg/Albuterol Sulfate 2.5 Mg Ampul.Neb 3 Ml INHALATION 3 ml Q6HRT BARBARA Administration Amiodarone HCl 400 mg 07/09/24 12:20 07/15/24 08:51 Amiodarone Hcl 200 Mg Tablet PO 400 mg Q12HR BARBARA Administration Aspirin 81 mg 07/01/24 08:00 07/13/24 08:24 Aspirin 81 Mg Chewable Tablet PO 81 mg DAILY@0800 BARBARA Administration Atorvastatin Calcium 40 mg 06/29/24 09:00 07/15/24 08:52 Atorvastatin 40 Mg Tablet PO 40 mg DAILY BARBARA Administration Dextrose 12.5 gm 06/29/24 08:08 Dextrose 50% 25 Gm/50 Ml Syringe IV PUSH PRN PRN Hypoglycemia Protocol Epoetin Mauri-epbx 10,000 units 07/15/24 20:27 Epoetin Mauri-Epbx 10,000 Units/Ml Vial IV PUSH 07/15/24 20:28 ONCE ONE Fluconazole 100 mg 07/14/24 14:20 07/15/24 08:52 Fluconazole 100 Mg Tablet FEED TUBE 07/27/24 09:01 100 mg QAM BARBARA Administration Glucagon 1 mg 06/29/24 08:08 Glucagon For Inj 1 Mg Vial IM PRN PRN Hypoglycemia Protocol Glucose 15 gm 06/29/24 08:08 Glucose Oral Gel 15 Gm Of Glucse In 37.5 Gm Tube PO PRN PRN Hypoglycemia Protocol Heparin Sodium (Porcine) 5,000 units 07/07/24 11:24 Heparin Sodium 5,000 Units/Ml Vial IV PUSH PRN PRN aPTT less than 55 seconds Heparin Sodium (Porcine) 2,500 units 07/07/24 11:24 07/09/24 07:21 Heparin Sodium 5,000 Units/Ml Vial IV PUSH 2,500 units PRN PRN Administration aPTT 55 - 70 seconds Hydralazine HCl 10 mg 07/06/24 16:42 07/06/24 17:03 Hydralazine Hcl 20 Mg/Ml Vial IV PUSH 10 mg Q4H PRN Administration Blood Pressure - High Dextrose 1,000 mls @ 100 mls/hr 06/29/24 08:08 Dextrose 5% 1,000 Ml IVPB PRN PRN Hypoglycemia Protocol Heparin Sodium/Dextrose 25,000 units in 250 mls @ 0 mls/hr 07/07/24 11:25 07/10/24 08:52 Heparin Sodium/D5w 100 Units/Ml IV CONT 0 units/hr .Q0M BARBARA 0 mls/hr Titration Protocol Dexmedetomidine HCl 400 mcg in 100 mls @ 3.885 mls/hr 07/13/24 16:00 07/14/24 16:20 Precedex 400 Mcg/100 Ml IV CONT Not Given .[id number] BARBARA Protocol 0.2 MCG/KG/HR Albumin Human 50 mls @ 999 mls/hr 07/15/24 10:24 Albutein IVPB 08/14/24 10:23 Q10M PRN HYPOTENSION Insulin Aspart 3 - 6 units 06/29/24 12:00 07/15/24 17:53 Insulin Aspart (*Bkc) 100 Units/Ml SUB-Q Not Given Q6HR [facility] Protocol Insulin Glargine 12 units 07/15/24 21:00 Insulin Glargine (*Bkc) 100 Units/Ml SUB-Q HS BARBARA Levothyroxine Sodium 50 mcg 06/30/24 06:30 07/15/24 06:51 Levothyroxine Sodium 50 Mcg Tablet FEED TUBE 50 mcg DAILY@0630 BARBARA Administration Multi-Ingred Cream/Lotion/Oil/Oint 1 applic 06/29/24 09:00 07/15/24 08:52 Mineral Oil/White Petrolatum Ointment EACH EYE 1 applic Q12HR BARBARA Administration Pantoprazole Sodium 40 mg 07/06/24 21:00 07/15/24 08:52 Pantoprazole Sodium Iv 40 Mg Vial IV PUSH 40 mg Q12HR BARBARA Administration Sodium Chloride 10 ml 06/29/24 14:00 07/15/24 14:59 Central Line Flush IV PUSH 10 ml Q8HR BARBARA Administration Sodium Chloride 10 ml 06/29/24 12:40 Central Line Flush IV PUSH PRN PRN with TPN bag changes Sodium Chloride 20 ml 06/29/24 12:40 Central Line Flush IV PUSH PRN PRN after blood draws Radiology Results: ITS Impressions Abdomen X-Ray 06/28/24 20:03 IMPRESSION: Nasogastric tube in good position and ready for immediate use. Abdomen Ultrasound 07/03/24 14:12 IMPRESSION: 1. Normal right upper quadrant ultrasound status post cholecystectomy. Renal Ultrasound 07/06/24 08:30 IMPRESSION: 1. No hydronephrosis in either kidney. Head CT 07/08/24 10:08 IMPRESSION: 1. No acute intracranial process. 2. 8 mm calcified extra-axial mass overlying the left parietal lobe most consistent with a meningioma. Chest/Abdomen/Pelvis CT 07/14/24 15:26 IMPRESSION: 1. Bilateral lower lobe pneumonia. 2. Small pleural effusions. 3. Severe emphysema. Labs Labs: Laboratory Tests 07/15/24 05:07 07/15/24 05:07 Calcium 9.2 Magnesium 2.6 H Total Bilirubin 0.5 AST 34 ALT 24 Alkaline Phosphatase 136 H Total Protein 6.0 L Albumin 2.9 L
[2024-07-15 12:07] LABS: Glucose Point of Care 129 mg/dl (65-105)
--- NOTE | 2024-07-15 13:38 | WPDHPUPDATE1 ---
History and Physical Update Update Date/Time: 07/15/24 13:38 History and Physical has been reviewed, including an updated exam of the patient. There are NO changes in the patient's condition. Risks, benefits, and alternatives have been discussed and questions answered. Patient agrees to proceed with procedure.
--- NOTE | 2024-07-15 13:38 | PM.CNGS ---
Assessment and Plan Assessment and plan (1) RASHEL (acute kidney injury): Code(s): N17.9 - Acute kidney failure, unspecified Status: Acute Assessment and Plan: I have reviewed the chart and assessed the patient. Will proceed with tunneled dialysis catheter insertion in the operating room. Patient has an elevated white blood count but it is trending down from yesterday. No fevers or other signs of ongoing infection and patient remains on antibiotics. (2) Acute exacerbation of chronic bronchitis: Code(s): J20.9 - Acute bronchitis, unspecified; J42 - Unspecified chronic bronchitis Status: Acute (3) Acute on chronic respiratory failure with hypoxia and hypercapnia: Code(s): J96.21 - Acute and chronic respiratory failure with hypoxia; J96.22 - Acute and chronic respiratory failure with hypercapnia Status: Acute History of Present Illness Consult details Consult date: 07/15/24 Reason for consult: other (Dialysis access) Requesting physician: Kirill Matthews MD Narrative: This is a 78-year-old woman who I am asked to see for placement of a tunneled dialysis catheter. Patient is currently on a ventilator with a tracheostomy tube and unable to give history therefore history is obtained from the chart. The patient was admitted on 06/28/2024 with acute on chronic respiratory failure. She was intubated and has been unable to wean from the ventilator. She has also had evidence of pneumonia and urinary tract infection which has been treated with broad-spectrum antibiotics. She has had worsening renal failure and is likely going to need to undergo hemodialysis at some point in the near future. She has not required hemodialysis thus far. The patient recently had a tracheostomy tube placed and also has a PEG tube for feeding. Review of Systems Review of Systems: ROS unobtainable: Yes unobtainable due to endotracheal tube (Tracheostomy tube), unobtainable due to medical condition and unobtainable due to mental status PMFSH Past Medical History Medical History Occult blood in stools Acute on chronic anemia Diastolic dysfunction Grade 1 Diastolic dysfunction noted on echocardiogram from 2020 repeat echo in 2022 demonstrated EF of 70% with indeterminate diastolic function with mild pulmonary hypertension with RVSP of 38 Chronic respiratory failure with hypoxia and hypercapnia On home O2 of 3 L and nighttime PAP therapy Renal mass Lung nodule Hypothyroidism COPD (chronic obstructive pulmonary disease) CHERYL on CPAP History of tobacco use History of heart attack Elevated lipids Hypertension H/O vaginal delivery Thyroid disease Lung nodule Renal mass Essential hypertension Former smoker Quit 2018 with 54 pack per year history Hypothyroidism Coronary artery disease Hyperlipidemia Diastolic dysfunction With echocardiogram 2022 demonstrated EF is 70% mild pulmonary hypertension with RVSP of 38, prior echocardiogram 2020 demonstrated grade 1 diastolic dysfunction Obstructive sleep apnea on CPAP With 4 L of bleed in oxygen Chronic respiratory failure with hypoxia and hypercapnia Home O2 of 4 L Surgical History Surgical History Status post extracapsular cataract extraction of left eye History of total abdominal hysterectomy and bilateral salpingo-oophorectomy History of tubal ligation History of cholecystectomy History of tubal ligation History of total abdominal hysterectomy and bilateral salpingo-oophorectomy Hx of cholecystectomy Family History Family History Mother Hypertension Sibling Family history of malignant neoplasm of kidney Family history of lung cancer Lung disease Mother Hypertension Sibling Malignant neoplasm of kidney Lung cancer Social History Social History Social History: Currently lives with in [place]. They have been since 1965 Surrogate decisionmaker: William, . Full Code. Retired from [employer]. Patient has 3 children. Smoking packs per day: 1 Smoking cigarettes per day: 20.0 Years smoked: 54 Smoking pack-years: 54.00 Smoking status: Former smoker Tobacco type: cigarettes Smoking end date: 10/27/18 Alcohol intake: never Substance use: never Do You Feel Safe in your Home?: Yes Lack of Transportation: No Lack of Food: Never True Current Housing: I Have Housing Concerned About Future Housing: No Difficulty Paying Gas/Electric Bills: No Difficulty Paying for Meds: No Currently Unemployed: No Education: Decline to Answer Difficulty w/ Childcare or Family Care: No Living arrangements: with family Occupation/Education: retired Gender identity (if verbalized by the patient): Female Spiritual care concerns: No Meds Home Medications and Allergies Home Medications ?Medication ?Instructions ?Recorded ?Confirmed ?Type atorvastatin 40 mg tablet 40 mg PO DAILY 05/05/19 12/03/23 History aspirin 81 mg tablet,delayed 81 mg PO DAILY 05/06/19 12/03/23 History release calcium carbonate 600 mg PO BID 05/06/19 12/03/23 History levothyroxine 50 mcg tablet 50 mcg PO DAILY 05/06/19 12/03/23 History levalbuterol HCl 1.25 mg/3 mL 0.63 mg (1.512 mL) inhalation 10/04/23 12/03/23 Rx solution for nebulization Q6HRT PRN shortness of breath or wheezing #72 mL azithromycin 250 mg tablet 500 mg (2 x 250 mg) PO QMWF #36 12/03/23 12/03/23 Rx tabs budesonide 160 mcg-glycopyr 9 2 inh inhalation BID #32.1 grams 12/03/23 12/03/23 Rx mcg-formot 4.8 mcg/actuation HFA inhaler (Breztri Aerosphere) albuterol sulfate 90 mcg/actuation 2 puff inhalation Q4H PRN 01/21/24 Rx aerosol inhaler shortness of breath, wheezing #8.5 grams albuterol 90 mcg/actuation aerosol 90 mcg inhalation PRN 06/28/24 06/28/24 History inhaler atorvastatin 40 mg tablet (Lipitor) 40 mg PO DAILY 06/28/24 06/28/24 History azithromycin 250 mg tablet 500 mg PO .COMPLEX 06/28/24 06/28/24 History levothyroxine 50 mcg capsule 50 mcg PO DAILY 06/28/24 06/28/24 History Allergies Allergy/AdvReac Type Severity Reaction Status Date / Time No Known Allergies Allergy Verified 06/29/24 08:19 Vital Signs Vital Signs - 24 hr 07/14/24 13:54 07/14/24 13:54 07/14/24 14:00 Temperature Pulse Rate 74 74 74 Respiratory Rate 18 Blood Pressure Pulse Oximetry 94 Oxygen Delivery Mechanical Ventilation Fraction of Inspired Oxygen 55 07/14/24 14:00 07/14/24 14:12 07/14/24 16:00 Temperature 97.9 F Pulse Rate 74 74 Respiratory Rate 22 H 26 H Blood Pressure 147/64 H Pulse Oximetry 94 94 Oxygen Delivery Mechanical Ventilation Fraction of Inspired Oxygen 55 07/14/24 16:00 07/14/24 16:00 07/14/24 16:00 Temperature 98.3 F Pulse Rate 75 73 Respiratory Rate 18 Blood Pressure 125/42 L Pulse Oximetry 96 Oxygen Delivery Fraction of Inspired Oxygen 55 07/14/24 17:13 07/14/24 18:00 07/14/24 18:00 Temperature 98.0 F Pulse Rate 76 76 Respiratory Rate 18 Blood Pressure 160/58 H Pulse Oximetry 95 Oxygen Delivery Mechanical Ventilation Fraction of Inspired Oxygen 55 07/14/24 19:58 07/14/24 19:58 07/14/24 20:00 Temperature Pulse Rate 75 75 Respiratory Rate 19 Blood Pressure Pulse Oximetry 96 Oxygen Delivery Mechanical Ventilation Fraction of Inspired Oxygen 55 55 07/14/24 20:00 07/14/24 20:00 07/14/24 20:00 Temperature 98.3 F Pulse Rate 76 77 76 Respiratory Rate 18 21 H Blood Pressure 153/62 H Pulse Oximetry 95 95 Oxygen Delivery Mechanical Ventilation Fraction of Inspired Oxygen 55 07/14/24 20:24 07/14/24 22:00 07/14/24 22:00 Temperature 98.3 F Pulse Rate 76 76 76 Respiratory Rate 20 Blood Pressure 160/56 H Pulse Oximetry 95 Oxygen Delivery Fraction of Inspired Oxygen 07/14/24 23:05 07/14/24 23:42 07/14/24 23:43 Temperature Pulse Rate 76 76 Respiratory Rate 18 Blood Pressure Pulse Oximetry 94 95 Oxygen Delivery Mechanical Ventilation Mechanical Ventilation Fraction of Inspired Oxygen 55 55 55 07/15/24 00:00 07/15/24 00:00 07/15/24 02:00 Temperature 98.4 F 98.9 F Pulse Rate 98 75 70 Respiratory Rate 21 H 17 Blood Pressure 141/63 H 120/50 L Pulse Oximetry 97 100 Oxygen Delivery Fraction of Inspired Oxygen 07/15/24 02:00 07/15/24 02:42 07/15/24 02:42 Temperature Pulse Rate 70 75 75 Respiratory Rate 16 Blood Pressure Pulse Oximetry 95 Oxygen Delivery Mechanical Ventilation Fraction of Inspired Oxygen 55 07/15/24 04:00 07/15/24 04:00 07/15/24 04:00 Temperature 98.8 F Pulse Rate 76 78 Respiratory Rate 18 18 Blood Pressure 160/62 H Pulse Oximetry 95 94 Oxygen Delivery Mechanical Ventilation Fraction of Inspired Oxygen 55 55 07/15/24 04:00 07/15/24 05:43 07/15/24 06:00 Temperature 98.6 F Pulse Rate 78 79 77 Respiratory Rate 23 H Blood Pressure 165/70 H Pulse Oximetry 96 96 Oxygen Delivery Mechanical Ventilation Fraction of Inspired Oxygen 55 07/15/24 06:00 07/15/24 07:52 07/15/24 07:52 Temperature Pulse Rate 77 76 76 Respiratory Rate 17 Blood Pressure Pulse Oximetry 94 Oxygen Delivery Mechanical Ventilation Fraction of Inspired Oxygen 55 07/15/24 08:00 07/15/24 08:00 07/15/24 08:00 Temperature 98.6 F Pulse Rate 76 76 Respiratory Rate 28 H Blood Pressure 138/73 Pulse Oximetry 94 94 Oxygen Delivery Mechanical Ventilation Fraction of Inspired Oxygen 55 07/15/24 08:00 07/15/24 08:51 07/15/24 10:00 Temperature 98.4 F Pulse Rate 79 78 Respiratory Rate 22 H Blood Pressure 141/71 H Pulse Oximetry 95 Oxygen Delivery Fraction of Inspired Oxygen 55 07/15/24 10:00 07/15/24 11:30 07/15/24 12:00 Temperature Pulse Rate 78 76 Respiratory Rate Blood Pressure Pulse Oximetry 94 95 Oxygen Delivery Mechanical Ventilation Mechanical Ventilation Fraction of Inspired Oxygen 55 55 07/15/24 12:00 07/15/24 12:00 07/15/24 12:00 Temperature 98.5 F Pulse Rate 74 74 Respiratory Rate 28 H Blood Pressure 142/58 H Pulse Oximetry 95 Oxygen Delivery Fraction of Inspired Oxygen 55 07/15/24 13:25 07/15/24 13:25 Temperature Pulse Rate 74 74 Respiratory Rate 16 Blood Pressure Pulse Oximetry 95 Oxygen Delivery Mechanical Ventilation Fraction of Inspired Oxygen 55 Exam Narrative: Patient with tracheostomy tube and sedated Const: General: average body habitus Nutritional Appearance: average body habitus Limitations: altered mental status HENMT: Head: normal to inspection, normocephalic and atraumatic Ears: external ears normal Face/Nose/Sinus: Normal external nose present and Normal nares present Mouth: Yes Normal oral and palatal mucosa present Eyes: Periorbital: periorbital findings normal Eyelids: eyelids normal Conjunctivae: conjunctivae normal Sclera: sclerae normal Neck: Neck: normal visual inspection, no lymphadenopathy, trachea midline, supple and no JVD Resp: Effort & Inspection: symmetric chest movement Auscultation: clear to auscultation bilaterally Percussion: percussion normal Cardio: Rate: regular rate Rhythm: regular rhythm Heart sounds: S1 normal heart sound present and S2 normal heart sound present Peripheral pulses: Peripheral pulses 2+ throughout Neuro: General: patient obtunded, Unable to assess gait and other ( unable to perform full neuro exam due to tracheostomy tube and ventilator ) Gait exam (Neuro): Unable to assess gait Extrem: General: no pedal edema Right upper extremity: normal to inspection Left upper extremity: normal to inspection Results Labs 07/15/24 05:07 07/15/24 05:07 Labs: Abnormal lab results 07/14/24 07/15/24 07/15/24 Range/Units 17:32 00:24 05:07 WBC 22.6 H (4.5-10.0) K/mm3 RBC 2.90 L (4.2-5.4) M/mm3 Hgb 8.6 L (12.0-15.0) g/dL Hct 26.7 L (37.0-47.0) % RDW 17.6 H (11.5-14.5) % MPV 12.0 H (7.4-10.4) fl ABG pO2 71.9 L (80.0-100.0) mmHg ABG O2 Saturation 94.5 L (95.0-100.0) % ABG O2 Content 12.3 L (16.0-22.0) %vol Reduced Hemoglobin 5.4 H (0-5.0) %THb Total Hemoglobin 9.2 L (12.0-18.0) g/dL Chloride 109 H (98-107) mmol/L BUN 168 H D (7-17) mg/dL Creatinine 3.35 H (0.7-1.0) mg/dL Estimated GFR 16 L (59 - ) Glucose 155 H (65-110) mg/dL POC Capillary Glucose 175 H 174 H (65-105) mg/dl Magnesium 2.6 H (1.6-2.3) mg/dL Alkaline Phosphatase 136 H (38-126) U/L Total Protein 6.0 L (6.3-8.2) g/dL Albumin 2.9 L (3.5-5.1) g/dL 07/15/24 Range/Units 12:02 WBC (4.5-10.0) K/mm3 RBC (4.2-5.4) M/mm3 Hgb (12.0-15.0) g/dL Hct (37.0-47.0) % RDW (11.5-14.5) % MPV (7.4-10.4) fl ABG pO2 (80.0-100.0) mmHg ABG O2 Saturation (95.0-100.0) % ABG O2 Content (16.0-22.0) %vol Reduced Hemoglobin (0-5.0) %THb Total Hemoglobin (12.0-18.0) g/dL Chloride (98-107) mmol/L BUN (7-17) mg/dL Creatinine (0.7-1.0) mg/dL Estimated GFR (59 - ) Glucose (65-110) mg/dL POC Capillary Glucose 129 H (65-105) mg/dl Magnesium (1.6-2.3) mg/dL Alkaline Phosphatase (38-126) U/L Total Protein (6.3-8.2) g/dL Albumin (3.5-5.1) g/dL Diabetes panel 07/15/24 Range/Units 05:07 Sodium 143 (137-145) mmol/L Potassium 4.4 (3.4-5.0) mmol/L Chloride 109 H (98-107) mmol/L Carbon Dioxide 22 (22-30) mmol/L BUN 168 H D (7-17) mg/dL Creatinine 3.35 H (0.7-1.0) mg/dL Glucose 155 H (65-110) mg/dL Calcium 9.2 (8.4-10.2) mg/dL AST 34 (14-36) U/L ALT 24 (6-35) U/L Alkaline Phosphatase 136 H (38-126) U/L Total Protein 6.0 L (6.3-8.2) g/dL Albumin 2.9 L (3.5-5.1) g/dL Calcium panel 07/15/24 Range/Units 05:07 Calcium 9.2 (8.4-10.2) mg/dL Albumin 2.9 L (3.5-5.1) g/dL Pituitary panel 07/15/24 Range/Units 05:07 Sodium 143 (137-145) mmol/L Potassium 4.4 (3.4-5.0) mmol/L Chloride 109 H (98-107) mmol/L Carbon Dioxide 22 (22-30) mmol/L BUN 168 H D (7-17) mg/dL Creatinine 3.35 H (0.7-1.0) mg/dL Glucose 155 H (65-110) mg/dL Calcium 9.2 (8.4-10.2) mg/dL Adrenal panel 07/15/24 Range/Units 05:07 Sodium 143 (137-145) mmol/L Potassium 4.4 (3.4-5.0) mmol/L Chloride 109 H (98-107) mmol/L Carbon Dioxide 22 (22-30) mmol/L BUN 168 H D (7-17) mg/dL Creatinine 3.35 H (0.7-1.0) mg/dL Glucose 155 H (65-110) mg/dL Calcium 9.2 (8.4-10.2) mg/dL Total Bilirubin 0.5 (0.2-1.3) mg/dL AST 34 (14-36) U/L ALT 24 (6-35) U/L Alkaline Phosphatase 136 H (38-126) U/L Total Protein 6.0 L (6.3-8.2) g/dL Albumin 2.9 L (3.5-5.1) g/dL All other labs normal.
--- NOTE | 2024-07-15 14:20 | P.PNAN_ITS ---
Anes - Initial Pre Proc Eval Procedure: Operation Date: 07/15/24 13:30 Proposed Procedures p Insertion Tunneled Dialysis Catheter - Gopi Ag DO Date/Time: 07/15/24 14:20 Surgeon: Marycarmen Wahl DO Pre Op Diagnosis: COPD exacerbation, Orotracheal intubation Patient Data Age: 78 Gender: F Height: 1.57 m Weight: 78.9 kg Last Vital Signs Temp 36.9 C 07/15/24 12:00 Pulse 74 07/15/24 13:53 Resp 17 07/15/24 13:53 BP 142/58 H 07/15/24 12:00 Pulse Ox 95 07/15/24 13:25 O2 Del Method Mechanical Ventilation 07/15/24 13:25 FiO2 55 07/15/24 13:25 Allergies Allergy/AdvReac Type Severity Reaction Status Date / Time No Known Allergies Allergy Verified 06/29/24 08:19 Home Medications ?Medication ?Instructions ?Recorded ?Confirmed ?Type atorvastatin 40 mg tablet 40 mg PO DAILY 05/05/19 12/03/23 History aspirin 81 mg tablet,delayed 81 mg PO DAILY 05/06/19 12/03/23 History release calcium carbonate 600 mg PO BID 05/06/19 12/03/23 History levothyroxine 50 mcg tablet 50 mcg PO DAILY 05/06/19 12/03/23 History levalbuterol HCl 1.25 mg/3 mL 0.63 mg (1.512 mL) inhalation 10/04/23 12/03/23 Rx solution for nebulization Q6HRT PRN shortness of breath or wheezing #72 mL azithromycin 250 mg tablet 500 mg (2 x 250 mg) PO QMWF #36 12/03/23 12/03/23 Rx tabs budesonide 160 mcg-glycopyr 9 2 inh inhalation BID #32.1 grams 12/03/23 12/03/23 Rx mcg-formot 4.8 mcg/actuation HFA inhaler (Breztri Aerosphere) albuterol sulfate 90 mcg/actuation 2 puff inhalation Q4H PRN 01/21/24 Rx aerosol inhaler shortness of breath, wheezing #8.5 grams albuterol 90 mcg/actuation aerosol 90 mcg inhalation PRN 06/28/24 06/28/24 History inhaler atorvastatin 40 mg tablet (Lipitor) 40 mg PO DAILY 06/28/24 06/28/24 History azithromycin 250 mg tablet 500 mg PO .COMPLEX 06/28/24 06/28/24 History levothyroxine 50 mcg capsule 50 mcg PO DAILY 06/28/24 06/28/24 History Laboratory Tests 07/06/24 07/14/24 07/15/24 06:44 17:32 00:24 WBC RBC Hgb Hct MCV MCH MCHC RDW Plt Count MPV Puncture Site ABG pH ABG pCO2 ABG pO2 ABG PO2/FiO2 Ratio ABG HCO3 ABG O2 Saturation ABG O2 Content ABG Base Excess A-a Gradient Oxyhemoglobin Carboxyhemoglobin Methemoglobin Reduced Hemoglobin Total Hemoglobin O2 Delivery Device O2 Liters/Min Minute Volume Vent Rate Vent Mode FiO2 Tidal Volume PEEP Peak Inspir Pressure Pressure Support Sodium Potassium Chloride Carbon Dioxide Anion Gap BUN Creatinine Estim Creat Clear Calc Estimated GFR Glucose POC Capillary Glucose 175 H mg/dl 174 H mg/dl (65-105) (65-105) Calcium Magnesium Total Bilirubin AST ALT Alkaline Phosphatase Total Protein Albumin Renin 3.70 ng/mL/h (0.25-5.82) 07/15/24 07/15/24 05:07 12:02 WBC 22.6 H K/mm3 (4.5-10.0) RBC 2.90 L M/mm3 (4.2-5.4) Hgb 8.6 L g/dL (12.0-15.0) Hct 26.7 L % (37.0-47.0) MCV 92.1 fl (80-100) MCH 29.7 pg (26-34) MCHC 32.2 g/dl (32-36) RDW 17.6 H % (11.5-14.5) Plt Count 282 k/mm3 (150-375) MPV 12.0 H fl (7.4-10.4) Puncture Site Left radial ABG pH 7.396 (7.350-7.450) ABG pCO2 37.3 mmHg (35.0-45.0) ABG pO2 71.9 L mmHg (80.0-100.0) ABG PO2/FiO2 Ratio 1.31 % ABG HCO3 22.4 mEq/l (22.0-26.0) ABG O2 Saturation 94.5 L % (95.0-100.0) ABG O2 Content 12.3 L %vol (16.0-22.0) ABG Base Excess -2.2 mEq/l (+/-2.0) A-a Gradient 278.8 mmHg Oxyhemoglobin 94.1 % THb (90.0-100.0) Carboxyhemoglobin 0.5 % THb (0-2.0) Methemoglobin 0.0 %THb (0-1.5) Reduced Hemoglobin 5.4 H %THb (0-5.0) Total Hemoglobin 9.2 L g/dL (12.0-18.0) O2 Delivery Device Ventilator O2 Liters/Min Not Reportable Minute Volume Not Reportable Vent Rate 16 /MIN Vent Mode Cmv FiO2 55 % Tidal Volume 480 ml PEEP 8 cmH2O Peak Inspir Pressure Not Reportable Pressure Support Not Reportable Sodium 143 mmol/L (137-145) Potassium 4.4 mmol/L (3.4-5.0) Chloride 109 H mmol/L (98-107) Carbon Dioxide 22 mmol/L (22-30) Anion Gap 12 mmol/L (4-12) BUN 168 H D mg/dL (7-17) Creatinine 3.35 H mg/dL (0.7-1.0) Estim Creat Clear Calc 13 ml/min Estimated GFR 16 L (59 - ) Glucose 155 H mg/dL (65-110) POC Capillary Glucose 129 H mg/dl (65-105) Calcium 9.2 mg/dL (8.4-10.2) Magnesium 2.6 H mg/dL (1.6-2.3) Total Bilirubin 0.5 mg/dL (0.2-1.3) AST 34 U/L (14-36) ALT 24 U/L (6-35) Alkaline Phosphatase 136 H U/L (38-126) Total Protein 6.0 L g/dL (6.3-8.2) Albumin 2.9 L g/dL (3.5-5.1) Renin Patient hx anesthesia problems: none Family hx anesthesia problems: none Results Review: All pre-operative results and documents have been reviewed as part of the pre- operative evaluation. [facility] Past Medical History Medical History Occult blood in stools Acute on chronic anemia Diastolic dysfunction Grade 1 Diastolic dysfunction noted on echocardiogram from 2020 repeat echo in 2022 demonstrated EF of 70% with indeterminate diastolic function with mild pulmonary hypertension with RVSP of 38 Chronic respiratory failure with hypoxia and hypercapnia On home O2 of 3 L and nighttime PAP therapy Renal mass Lung nodule Hypothyroidism COPD (chronic obstructive pulmonary disease) CHERYL on CPAP History of tobacco use History of heart attack Elevated lipids Hypertension H/O vaginal delivery Thyroid disease Lung nodule Renal mass Essential hypertension Former smoker Quit 2018 with 54 pack per year history Hypothyroidism Coronary artery disease Hyperlipidemia Diastolic dysfunction With echocardiogram 2022 demonstrated EF is 70% mild pulmonary hypertension with RVSP of 38, prior echocardiogram 2020 demonstrated grade 1 diastolic dysfunction Obstructive sleep apnea on CPAP With 4 L of bleed in oxygen Chronic respiratory failure with hypoxia and hypercapnia Home O2 of 4 L Surgical History Surgical History Status post extracapsular cataract extraction of left eye History of total abdominal hysterectomy and bilateral salpingo-oophorectomy History of tubal ligation History of cholecystectomy History of tubal ligation History of total abdominal hysterectomy and bilateral salpingo-oophorectomy Hx of cholecystectomy Family History Family History Mother Hypertension Sibling Family history of malignant neoplasm of kidney Family history of lung cancer Lung disease Mother Hypertension Sibling Malignant neoplasm of kidney Lung cancer Social History Social History Social History: Currently lives with in [place]. They have been since 1965 Surrogate decisionmaker: Wililam, . Full Code. Retired from [employer]. Patient has 3 children. Smoking packs per day: 1 Smoking cigarettes per day: 20.0 Years smoked: 54 Smoking pack-years: 54.00 Smoking status: Former smoker Tobacco type: cigarettes Smoking end date: 10/27/18 Alcohol intake: never Substance use: never Do You Feel Safe in your Home?: Yes Lack of Transportation: No Lack of Food: Never True Current Housing: I Have Housing Concerned About Future Housing: No Difficulty Paying Gas/Electric Bills: No Difficulty Paying for Meds: No Currently Unemployed: No Education: Decline to Answer Difficulty w/ Childcare or Family Care: No Living arrangements: with family Occupation/Education: retired Gender identity (if verbalized by the patient): Female Spiritual care concerns: No Anes - Eval Final PreProcedure Day of Procedure 07/15/24 14:20 Patient weight: obese Heart: regular rate and rhythm Lungs: normal air movement and decreased breath sounds Airway: other (ETT in place. ) Neurological: other (Sedated. ) Last oral intake: >/= 8 hours ASA classification: IV Emergent: no Anesthetic plan: proceed Anesthesia type and monitoring: general ETT and standard monitoring Results Review: All pre-operative results and documents have been reviewed as part of the pre- operative evaluation. Informed Consent: The patient's anesthetic plan and its attendant risks and benefits were discussed with the patient/family/POA. Questions were solicited and answers provided to the satisfaction of the patient/family/POA.
[2024-07-15] MEDS: ceFAZolin SODIUM 1 GM VIAL 2 GM IV PUSH (14:44)
[2024-07-15] MEDS: HEPARIN SODIUM, PORCINE 10,000 UNITS/10 ML VIAL 3 UNITS IRRIGATION (15:04)
[2024-07-15] MEDS: HEPARIN SODIUM 5,000 UNITS/ML VIAL 5000 UNITS IRRIGATION (15:06)
[2024-07-15] MEDS: LIDO 1%/EPINEPHRINE 1:100,000 20 ML VIAL 11 ML INFILTRATE (15:08)
--- NOTE | 2024-07-15 15:29 | W.PM.PROC2 ---
Procedure Note - Detailed Date of Procedure 07/15/24 Pre-op Diagnosis Acute renal failure, acute on chronic respiratory failure Post-op Diagnosis Same Procedure Performed Right internal jugular tunneled dialysis catheter placement using ultrasound and fluoroscopic guidance Surgeon Gopi Ag, DO Anesthesia General and Local (1% lidocaine with epinephrine) Indications This is a 78-year-old woman who is currently hospitalized in the ICU for acute on chronic respiratory failure and acute kidney failure. She has had worsening renal function and is in need of a tunneled dialysis catheter placement to initiate hemodialysis. She has remained on a ventilator for the past 17 days and recently had a tracheostomy tube placed. Decision was made to proceed with tunneled dialysis catheter placement. Findings Right internal jugular tunnel dialysis catheter placement was performed. SonoSite ultrasound was used to identify the right internal jugular vein. This was visualized as a compressible vessel just lateral to the pulsatile carotid artery. The vein was accessed under ultrasound guidance with an 18 gauge introducer needle. Dark nonpulsatile blood was aspirated. And fluoroscopy was then used to guide advancement of the guidewire followed by the dilator and sheath. The final fluoroscopic images demonstrated the catheter tip in the distal SVC and no kinks along its path. X-ray in ICU is pending to confirm placement. Description of Procedure Procedure as well as risks, benefits, and alternatives were discussed with patient. Written consent was obtained and placed in chart prior to procedure. Patient was brought back to surgical suite. Placed supine on operating table. Time-out was done confirm patient procedure. IV sedation was then administered by the Anesthesia Department. Right chest and neck area was prepped and draped in sterile fashion using chlorhexidine prep. Patient was placed in Trendelenburg position. SonoSite ultrasound was used to identify the right internal jugular vein. It was visualized as a compressible vessel just lateral to the carotid artery. 1% lidocaine with epinephrine was infiltrated directly over the vessel under ultrasound guidance. An 18 gauge introducer needle was then advanced under ultrasound guidance directly into the right internal jugular vein. Dark nonpulsatile blood was aspirated. A 0.035 in guidewire was then advanced through the needle under fluoroscopic guidance. The guidewire was visualized advancing all the way down into the superior vena cava. 1% lidocaine with epinephrine was then infiltrated on the right anterior chest and along the tract up to the guidewire insertion site. A 5 mm incision was made with a 15 blade scalpel. A small [place] incision was then also made at the insertion site at the neck. The tunneler was then advanced from the chest incision up to the neck incision and the catheter tubing was brought up through this tract. The dilator and sheath were then advanced over the guidewire under fluoroscopic visualization. The dilator and guidewire were then removed leaving the sheath in place. The catheter tubing was then advanced through the sheath under fluoroscopic guidance. The sheath was unsnapped and carefully peeled away. The catheter tubing was released underneath the neck incision. Fluoroscopy was used to confirm proper placement of the catheter tubing and no kinks along its path. The catheter was then hep-locked with Hep-Lock solution. The skin of the incisions was then approximated using 4-0 Monocryl subcuticular suture. Exofin glue was then applied at the neck incision and 2x2 gauze and Tegaderm drassing applied at the chest. The patient was then awakened from anesthesia and transferred to recovery. Implants 24 cm DuraFlow2 dialysis catheter Estimated Blood Loss 5 (ml) Urine Output 800 Complications No immediate complications Condition Stable Disposition ICU [facility] Billing Surgery - Charge Forward: Surgery Billing
[2024-07-15 17:55] LABS: Glucose Point of Care 144 mg/dl (65-105)
[2024-07-15 20:17] LABS: Glucose Point of Care 115 mg/dl (65-105)
[2024-07-15] MEDS: INSULIN GLARGINE (*BKC) 100 UNITS/ML 12 UNITS SUB-Q (20:55)
[2024-07-15 23:57] LABS: Glucose Point of Care 120 mg/dl (65-105)
[2024-07-16] VITALS (44 sets, daily range): BP systolic 93–174; BP diastolic 28–72; PULSE 70–87; RESP 16–30; TEMP 36.4–37.6; O2SAT 77–100
[2024-07-16] MEDS: IPRATROPIUM 0.5 MG/ALBUTEROL SULFATE 2.5 MG AMPUL.NEB 3 ML INHALATION ×4 (02:05→21:05)
[2024-07-16] MEDS: CENTRAL LINE FLUSH 10 ML IV PUSH ×3 (04:45→22:01)
[2024-07-16] MEDS: LEVOTHYROXINE SODIUM 50 MCG TABLET FEED TUBE (04:45)
[2024-07-16 04:46] LABS: Hematocrit 25.1 % (37.0-47.0); Hemoglobin 7.9 g/dL (12.0-15.0); Mean Corpuscular HGB Conc 31.5 g/dl (32-36); Mean Corpuscular Hemoglobin 29.7 pg (26-34); Mean Corpuscular Volume 94.4 fl (80-100); Mean Platelet Volume 11.9 fl (7.4-10.4); Platelet Count Result 266 k/mm3 (150-375); Red Blood Count 2.66 M/mm3 (4.2-5.4); White Blood Count 24.6 K/mm3 (4.5-10.0)
[2024-07-16 05:01] LABS: Alanine Aminotransferase 19 U/L (6-35); Anion Gap 12 mmol/L (4-12); Aspartate Amino Transferase 38 U/L (14-36); Bilirubin,Total 0.5 mg/dL (0.2-1.3); Calcium 9.3 mg/dL (8.4-10.2); Carbon Dioxide 25 mmol/L (22-30); Chloride 106 mmol/L (98-107); Estimated CRCL calculation 11 ml/min; Estimated Glomerular Filt Rate 11; Glucose 147 mg/dL (65-110); Magnesium 2.8 mg/dL (1.6-2.3); Potassium 4.8 mmol/L (3.4-5.0); Sodium 143 mmol/L (137-145)
[2024-07-16 05:02] LABS: Alkaline Phosphatase 122 U/L (38-126)
[2024-07-16 05:12] LABS: Alveolar/Arterial O2 Gradient 266.9 mmHg; Base Excess ABG -2.2 mEq/l (+/-2.0); Carboxyhemoglobin 0.9 % THb (0-2.0); Fractional Inspired Oxygen 55 %; HCO3 ABG 24.7 mEq/l (22.0-26.0); Methemoglobin ABG 0.3 %THb (0-1.5); Oxygen Content ABG 11.3 %vol (16.0-22.0); Oxygen Saturation ABG 90.4 % (95.0-100.0); PCO2 ABG 53.2 mmHg (35.0-45.0); PO2 ABG 66.1 mmHg (80.0-100.0); Reduced Hemoglobin 8.8 %THb (0-5.0); Total Hemoglobin 8.9 g/dL (12.0-18.0)
[2024-07-16 05:13] LABS: pH ABG 7.284 (7.350-7.450)
[2024-07-16 05:14] LABS: Arterial Blood Gas PEEP 8 cmH2O; Arterial Blood Gas Tidal Volume 480 ml; Arterial Blood Gas Vent Mode CMV; Arterial Blood Gas Ventilator rate 16 /MIN; Device VENTILATOR; Modified Allen's Test Pass; Site Drawn RIGHT RADIAL
[2024-07-16 05:16] LABS: Blood Urea Nitrogen 188 mg/dL (7-17)
[2024-07-16] MEDS: PANTOPRAZOLE SODIUM IV 40 MG VIAL IV PUSH ×2 (08:08→20:48)
[2024-07-16] MEDS: ATORVASTATIN 40 MG TABLET PO (08:08)
[2024-07-16] MEDS: FLUCONAZOLE 100 MG TABLET FEED TUBE (08:08)
[2024-07-16] MEDS: MINERAL OIL/WHITE PETROLATUM OINTMENT 1 APPLIC EACH EYE ×2 (08:08→20:49)
[2024-07-16] MEDS: AMIODARONE HCL 200 MG TABLET 400 MG PO ×2 (08:08→20:48)
[2024-07-16] MEDS: ATROPINE SULFATE 1 MG/10 ML SYRINGE (09:28)
--- NOTE | 2024-07-16 09:28 | PC.NURSE ---
Pt started to desat. RT in room in RN. called to bedside. Pt starts to become bradycardic. Order for 1 amp of atropine received. RN administers atropine. No results. No pulse palpated. Order for 1mg of epi. Code blue called. See Code sheet
--- NOTE | 2024-07-16 09:53 | PC.NURSE ---
RN, RT and MD at bedside. Pt starts to desat again. Unable to palpate pulse. Code blue called again. See code sheet
[2024-07-16] MEDS: NOREPINEPHRINE 8 MG/D5W 250 ML 8 MG/250 ML BAG 9.38 MG IV CONT (09:57)
[2024-07-16 10:11] LABS: Alveolar/Arterial O2 Gradient 432.1 mmHg; Base Excess ABG -2.3 mEq/l (+/-2.0); Carboxyhemoglobin 0.7 % THb (0-2.0); Fractional Inspired Oxygen 100 %; Methemoglobin ABG 0.3 %THb (0-1.5); Oxygen Saturation ABG 99.2 % (95.0-100.0); Oxyhemoglobin 98.4 % THb (90.0-100.0); PO2 ABG 213.8 mmHg (80.0-100.0); PO2 FiO2 Ratio Arterial Blood 2.14 %; Reduced Hemoglobin 0.6 %THb (0-5.0); Total Hemoglobin 8.3 g/dL (12.0-18.0)
[2024-07-16 10:12] LABS: Arterial Blood Gas Ventilator rate 18 /MIN; Device VENTILATOR; Modified Allen's Test Pass; PCO2 ABG 67.1 mmHg (35.0-45.0); Site Drawn LEFT RADIAL; pH ABG 7.206 (7.350-7.450)
[2024-07-16 10:13] LABS: Arterial Blood Gas PEEP 8 cmH2O; Arterial Blood Gas Tidal Volume 480 ml; Arterial Blood Gas Vent Mode CMV
--- NOTE | 2024-07-16 11:15 | PDCODEBLUE ---
Code Blue Note Code Blue Note Time Arrived at Code Blue: 09 Initial Rhythm on Arrival: Sinus bradycardia Airway Management: Initiated bagging pt on arrival Chest Compressions: Initiated upon arrival Cardiac Rhythm Post Code: Sinus tachycardia Code Blue Summary: Patient was on mechanical ventilation with FiO2 55% and peep of 8. Patient was started on hemodialysis today. Around 10 minutes and patient dropped her blood pressure and oxygen saturation. She also became bradycardic. I was called by the nursing staff to the room and I requested a mg of atropine to be given to the patient. Patient had decreased breath sound bilaterally from her severe COPD. Patient was taken off of the ventilator and bagged. Dialysis was paused. Soon patient went to PEA and CPR was initiated. Patient was given epinephrine and bicarb. I used bronchoscope to a certain tracheostomy he has location and trach tube was in the right place in trachea. Two rounds of CPR 2 dose of epinephrine led to ROSC. Patient's was noticed by his by phone by staff We waited for approximately 10 minutes patient was restarted on dialysis in place back on the ventilator. Again after few minutes patient had drop in blood pressure and saturation and went into PEAv arrest. Patient was resuscitated with CPR and epinephrine and ROSC was obtained. Levophed was initiated ABG was obtained. A chest x-ray was obtained which showed no pneumothorax and overall no significant change. Peep was increased and FiO2 was increased to 100%. ABG 7.2/67/213/26 Patient was given 1 amp of bicarb. Patient had another brief episode of PE a and was given 1 epi and 1 round of CPR before his pulse was obtained, patient placed back on ventilator. Patient's arrived at bedside and I had long discussion with patient's and patient's daughter was on the phone and updated them with events from this morning. I explained them the patient is critically ill with multiorgan failure and has not tolerated 2 attempts of dialysis today per we discussed goals of care and option of palliative care. I also revisited code status with them.. Family at this point appears unrealistic about patient's prognosis and does not have clear understanding of how critical her medical condition is. I answered all their question Total Critical Care Time - 90 minutes Due to a high probability of clinically significant, life threatening deterioration, the patient required my highest level of preparedness to intervene emergently and I personally spent this critical care time directly and personally managing the patient. This critical care time included obtaining a history; examining the patient; pulse oximetry; ordering and review of studies; arranging urgent treatment with development of a management plan; evaluation of patient's response to treatment; frequent reassessment; and discussions with other providers. It was exclusive of separately billable procedures and treating other patients and teaching time. Please see Assessment and Plan section and the rest of the note for further information on patient assessment and treatment
[2024-07-16] MEDS: EPOETIN ALFA-EPBX 10,000 UNITS/ML VIAL 10000 UNITS IV PUSH (11:22)
[2024-07-16] MEDS: ALTEPLASE 2 MG VIAL (CATHFLO) IV PUSH ×2 (11:22→14:10)
--- NOTE | 2024-07-16 11:27 | P.PNINT_ITS ---
Progress Note: A&P Assessment and Plan (1) Acute on chronic respiratory failure with hypoxia and hypercapnia: Code(s): J96.21 - Acute and chronic respiratory failure with hypoxia; J96.22 - Acute and chronic respiratory failure with hypercapnia Status: Acute Assessment and Plan: Acute on chronic respiratory failure secondary to severe COPD exacerbation. Community-acquired pneumonia although chest x-ray is not suggestive and patient is low procalcitonin level. WBC elevated MRSA screen negative 06/28/2024: Intubated in the ED 06/28: Blood cultures negative x2 -status post course of ceftriaxone and doxycycline -DC vancomycin (06/29), MRSA screen negative Patient failed her weaning trial on multiple days and eventually had tracheostomy done on 07/13 Now weaned off of sedation 07/16 patient drop in oxygen saturation and had cardiac arrest during dialysis. Chest x-ray reviewed. Trach evaluated with bronchoscope and is in adequate place. ABG shows high PA O2 suggesting the saturation was inaccurate. FiO2 increased to 100% peep increased to 14. Will wean FiO2 CT chest 07/14 IMPRESSION: 1. Bilateral lower lobe pneumonia. 2. Small pleural effusions. 3. Severe emphysema. (2) Atrial fibrillation with RVR: Code(s): I48.91 - Unspecified atrial fibrillation Status: Acute Assessment and Plan: 07/06 evening: Patient went into SVT, status post adenosine 6 mg and 12 mg, underlying rhythm was AFib RVR, converted to normal sinus rhythm with IV metoprolol x1 and increasing her sedation. Patient remained in sinus rhythm also the morning of 07/07/2024. Off anticoagulation due to drop in hemoglobin coffee-ground emesis 07/06; TSH level within normal limits, troponin level with no change since admission Cardiology following On p.o. amiodarone Currently in sinus rhythm (3) RASHEL (acute kidney injury): Code(s): N17.9 - Acute kidney failure, unspecified Status: Acute Assessment and Plan: Acute kidney injury, likely related to hypotension, intravascular volume depletion, BUN elevated likely related to steroids -nephrology has been consulted and appreciate the evaluation and recommendation Despite conservative management patient's creatinine continued to increase with worsening of BUN 07/06: Renal ultrasound: No hydronephrosis in either kidney. Creatinine and BUN continues to increase. Although patient is still producing urine decision was made to initiate dialysis after consultation with Nephrology. Patient's was agreeable to proceed and consented 07/15 tunneled dialysis catheter was placed by general surgery and roll or tape edge machine operator notified 07/16 2 attempts were made to dialyze patient today and patient had a PEA arrest.. Dialysis has at this time (4) Acute exacerbation of chronic obstructive pulmonary disease: Code(s): J44.1 - Chronic obstructive pulmonary disease with (acute) exacerbation Status: Acute Assessment and Plan: Continue mechanical ventilation, bronchodilators, antibiotics, -patient has previous tracheostomy scar likely related to COPD exacerbation (5) Elevated troponin: Code(s): R77.8 - Other specified abnormalities of plasma proteins Status: Acute Assessment and Plan: Patient has elevated troponin likely secondary to demand ischemia from acute respiratory failure. EKG reviewed and does not show any ST elevation. Patient does not have any documented history of coronary disease. Troponins trending down Continue daily statin Aspirin is on hold due to anemia Appreciate cardiology evaluation and recommendation 06/29/2024: Echocardiogram Summary 1. The left ventricle is normal in size with thickened left ventricular rodríguez. The overall left ventricular systolic function appears preserved. Cannot rule out very mild hypokinesis of the apical wall. 2. The right ventricle is normal in size and systolic function. 3. The there is a small amount of pericardial effusion with no echocardiographic evidence of cardiac tamponade. (6) Hypothyroidism: Code(s): E03.9 - Hypothyroidism, unspecified Status: Acute Assessment and Plan: Continue levothyroxine. -07/06: TSH level - within normal limits (7) Electrolyte abnormality: Code(s): E87.8 - Other disorders of electrolyte and fluid balance, not elsewhere classified Status: Acute Assessment and Plan: Potassium levels within normal limits -appreciate Nephrology evaluation and recommendations (8) Elevated LFTs: Code(s): R79.89 - Other specified abnormal findings of blood chemistry Status: Acute Assessment and Plan: Right upper quadrant ultrasound was normal, status post cholecystectomy -hepatitis panel was within normal limit (9) Hyperglycemia: Code(s): R73.9 - Hyperglycemia, unspecified Status: Acute Assessment and Plan: Hyperglycemia likely related to tube feeds and or steroid Off steroid -continue Accu-Cheks and sliding scale insulin, Lantus (10) Anemia: Code(s): D64.9 - Anemia, unspecified Status: Acute Assessment and Plan: Patient dropped her hemoglobin to 8.3 from 10.9 (07/05) -07/06/2024: Stool occult was positive -iron panel did not show any iron deficiency, normal folate level -low vitamin B12 level, will give IM cyanocobalamin weekly x2 doses -continue Protonix to IV q.12 hours -appreciate GI evaluation , no endoscopy recommended at this time -hemoglobin remains stable 07/10: Patient dropped hemoglobin to 6.7 again, received 1 unit of packed RBCs. Heparin infusion was discontinued (which was for new onset atrial fibrillation RVR). 07/13: Hemoglobin dropped to 6.9 this morning, transfused 1 unit of packed RBCs, continue to monitor -hemoglobin stable, continue monitor (11) Encephalopathy: Code(s): G93.40 - Encephalopathy, unspecified Status: Acute Assessment and Plan: Metabolic and uremic -07/08: stat CT scan of the brain: 1. No acute intracranial process.2. 8 mm calcified extra-axial mass overlying the left parietal lobe most consistent with a meningioma. -ammonia level <9 -continue to monitor (12) Shock: Code(s): R57.9 - Shock, unspecified Status: Acute Assessment and Plan: 07/11: Patient with hypotension overnight, given IV fluid bolus. Started on Levophed, maintain MAP > 65 mmHg for adequate end organ perfusion especially renal perfusion -continue cefepime and vancomycin (07/08) for a total of 7 days -07/08: Blood cultures with no growth x2 -07/08: Sputum culture growing yeast 07/13: Levophed has been turned off on 07/11 at 4:00 p.m. . Blood pressures have been adequate, continue to monitor 07/16 Levophed resumed after cardiac arrest (13) UTI (urinary tract infection): Code(s): N39.0 - Urinary tract infection, site not specified Status: Acute Assessment and Plan: Urine cultures growing Karla albicans In light of elevated WBC will start patient on for consult goals (14) Cardiac arrest: Code(s): I46.9 - Cardiac arrest, cause unspecified Status: Acute Assessment and Plan: Patient was on mechanical ventilation with FiO2 55% and peep of 8. Patient was started on hemodialysis today. Around 10 minutes and patient dropped her blood pressure and oxygen saturation. She also became bradycardic. I was called by the nursing staff to the room and I requested a mg of atropine to be given to the patient. Patient had decreased breath sound bilaterally from her severe COPD. Patient was taken off of the ventilator and bagged. Dialysis was paused. Soon patient went to PEA and CPR was initiated. Patient was given epinephrine and bicarb. I used bronchoscope to a certain tracheostomy he has location and trach tube was in the right place in trachea. Two rounds of CPR 2 dose of epinephrine led to ROSC. Patient's was noticed by his by phone by staff We waited for approximately 10 minutes patient was restarted on dialysis in place back on the ventilator. Again after few minutes patient had drop in blood pressure and saturation and went into PEA arrest. Patient was resuscitated with CPR and epinephrine and ROSC was obtained. Levophed was initiated ABG was obtained. A chest x-ray was obtained which showed no pneumothorax and overall no significant change. Peep was increased and FiO2 was increased to 100%. ABG 7.2/// Patient was given 1 amp of bicarb. Patient had another brief episode of PE a and was given 1 epi and 1 round of CPR before his pulse was obtained, patient placed back on ventilator. Chest x-ray 1. Emphysema. 2. Persistent interstitial and airspace opacities in the bilateral mid and lower lung zones given appearance on prior CT would favor pneumonia over pulmonary edema. 3. Small bilateral pleural effusions. Labs ordered and pending Plan DVT prophylaxis -SCDs, no chemoprophylaxis due to anemia requiring blood transfusion Stress ulcer prophylaxis -PPI IV q.12 hours Nutrition -tube feeds held after cardiac arrest Code Status - Full Code I spoke to Patient's arrived at bedside and I had long discussion with patient's and patient's daughter was on the phone and updated them with events from this morning. I explained them the patient is critically ill with multiorgan failure and has not tolerated 2 attempts of dialysis today per we discussed goals of care and option of palliative care. I also revisited code status with them.. Family at this point appears unrealistic about patient's prognosis and does not have clear understanding of how critical her medical condition is. I answered all their question Total Critical Care Time - 30 minutes Due to a high probability of clinically significant, life threatening deterioration, the patient required my highest level of preparedness to intervene emergently and I personally spent this critical care time directly and personally managing the patient. This critical care time included obtaining a history; examining the patient; pulse oximetry; ordering and review of studies; arranging urgent treatment with development of a management plan; evaluation of patient's response to treatment; frequent reassessment; and discussions with other providers. It was exclusive of separately billable procedures and treating other patients and teaching time. Please see Assessment and Plan section and the rest of the note for further information on patient assessment and treatment This dictation may have been done utilizing a voice recognition system. Attempts have been made to correct errors. However, there may be uncorrected grammatical, spelling, and recognitions errors present. Subjective Date/time seen: 07/16/24 Overnight events reviewed. Afebrile Continues to be on mechanical ventilation 55% FiO2 Off all infusions sedation Patient had done dialysis catheter placed yesterday afternoon Interval history: Reason for consult: COPD exacerbation, acute hypercapnic respiratory failure, NSTEMI with elevated troponin 07/08: CT brain was negative, was done for encephalopathy 07/10: PEG tube placement by GI 07/13: Tracheostomy placed by ENT 07/15: Tunneled dialysis catheter placement Review of Systems Review of Systems: ROS unobtainable: Yes unobtainable due to endotracheal tube, unobtainable due to medical condition and unobtainable due to mental s tatus Exam Narrative: General: Pt is sedated and intubated and on mechanical ventilation HEENT: Pupils equal and reactive, sclera is clear, trach in place Lungs/Chest: Trachea central, adequate air entry, coarse breath sounds at bases, no wheezing., rales noted on left lower lobe Cardiac: Sinus rhythm, rate controlled Abdomen: Decreased bowel sounds. Nontender, nondistended Obese. Soft. . PEG in place Extremities: Positive edema, anasarca up to the thighs : Goddard in place Neurologic: Intubated, sedated opens her eyes and follow simple commands with all 4 extremities, grimaces to pain but does not withdraw. Objective Data Vital Signs Vital Signs: Vital Signs - 24 hr 07/15/24 11:30 07/15/24 12:07/15/24 12:00 Temperature Pulse Rate 76 74 Respiratory Rate Blood Pressure Pulse Oximetry 94 95 Oxygen Delivery Mechanical Ventilation Mechanical Ventilation Fraction of Inspired Oxygen 55 55 07/15/24 12:00 07/15/24 12:00 07/15/24 13:25 Temperature 36.9 C Pulse Rate 74 74 Respiratory Rate 28 H Blood Pressure 142/58 H Pulse Oximetry 95 95 Oxygen Delivery Mechanical Ventilation Fraction of Inspired Oxygen 55 55 07/15/24 13:25 07/15/24 13:53 07/15/24 14:00 Temperature Pulse Rate 74 74 74 Respiratory Rate 16 17 Blood Pressure Pulse Oximetry Oxygen Delivery Fraction of Inspired Oxygen 07/15/24 14:00 07/15/24 16:00 07/15/24 16:00 Temperature 37.0 C Pulse Rate 74 70 Respiratory Rate 20 Blood Pressure 146/67 H Pulse Oximetry 95 95 Oxygen Delivery Mechanical Ventilation Fraction of Inspired Oxygen 55 07/15/24 16:00 07/15/24 16:00 07/15/24 16:43 Temperature 36.4 C Pulse Rate 71 69 Respiratory Rate 24 H Blood Pressure 115/44 L Pulse Oximetry 96 95 Oxygen Delivery Mechanical Ventilation Fraction of Inspired Oxygen 55 55 07/15/24 18:00 07/15/24 18:00 07/15/24 20:00 Temperature 36.5 C 36.8 C Pulse Rate 73 73 74 Respiratory Rate 30 H 28 H Blood Pressure 152/60 H 140/53 L Pulse Oximetry 94 95 Oxygen Delivery Fraction of Inspired Oxygen 07/15/24 20:00 07/15/24 20:00 07/15/24 20:00 Temperature Pulse Rate 71 75 Respiratory Rate 16 Blood Pressure Pulse Oximetry 95 Oxygen Delivery Mechanical Ventilation Fraction of Inspired Oxygen 55 55 07/15/24 20:05 07/15/24 20:05 07/15/24 20:31 Temperature Pulse Rate 74 74 74 Respiratory Rate 16 16 Blood Pressure Pulse Oximetry 95 Oxygen Delivery Mechanical Ventilation Fraction of Inspired Oxygen 55 07/15/24 20:56 07/15/24 22:00 07/15/24 22:00 Temperature 36.9 C Pulse Rate 71 74 76 Respiratory Rate 24 H Blood Pressure 147/58 H Pulse Oximetry 91 Oxygen Delivery Fraction of Inspired Oxygen 07/15/24 23:12 07/15/24 23:53 07/15/24 23:53 Temperature Pulse Rate 75 76 Respiratory Rate 20 Blood Pressure Pulse Oximetry 94 94 Oxygen Delivery Mechanical Ventilation Mechanical Ventilation Fraction of Inspired Oxygen 55 55 55 07/16/24 00:00 07/16/24 00:00 07/16/24 02:00 Temperature 37.0 C 37.1 C Pulse Rate 74 73 74 Respiratory Rate 23 H 22 H Blood Pressure 143/65 H 143/65 H Pulse Oximetry 95 96 Oxygen Delivery Fraction of Inspired Oxygen 07/16/24 02:00 07/16/24 02:05 07/16/24 02:05 Temperature Pulse Rate 73 72 72 Respiratory Rate 17 Blood Pressure Pulse Oximetry 95 Oxygen Delivery Mechanical Ventilation Fraction of Inspired Oxygen 55 07/16/24 02:15 07/16/24 03:38 07/16/24 03:39 Temperature Pulse Rate 71 73 Respiratory Rate 16 19 Blood Pressure Pulse Oximetry 93 Oxygen Delivery Mechanical Ventilation Fraction of Inspired Oxygen 55 55 07/16/24 04:00 07/16/24 04:00 07/16/24 05:18 Temperature 37.1 C Pulse Rate 71 72 72 Respiratory Rate 24 H Blood Pressure 108/48 L Pulse Oximetry 92 92 Oxygen Delivery Mechanical Ventilation Fraction of Inspired Oxygen 55 07/16/24 06:00 07/16/24 06:00 07/16/24 06:25 Temperature 37.3 C Pulse Rate 71 71 70 Respiratory Rate 16 Blood Pressure 107/52 L Pulse Oximetry 93 94 Oxygen Delivery Mechanical Ventilation Fraction of Inspired Oxygen 55 07/16/24 08:00 07/16/24 08:00 07/16/24 08:00 Temperature 37.2 C Pulse Rate 70 71 Respiratory Rate 19 23 H Blood Pressure 126/52 L Pulse Oximetry 94 94 Oxygen Delivery Mechanical Ventilation Fraction of Inspired Oxygen 55 55 07/16/24 08:08 07/16/24 08:29 07/16/24 08:45 Temperature Pulse Rate 70 70 71 Respiratory Rate 18 Blood Pressure Pulse Oximetry 98 Oxygen Delivery Mechanical Ventilation Fraction of Inspired Oxygen 55 07/16/24 08:49 07/16/24 08:50 07/16/24 08:50 Temperature 37.2 C Pulse Rate 71 70 Respiratory Rate 17 17 Blood Pressure 126/52 L Pulse Oximetry 94 Oxygen Delivery Fraction of Inspired Oxygen 55 07/16/24 09:14 07/16/24 09:28 07/16/24 09:45 Temperature Pulse Rate 70 70 70 Respiratory Rate Blood Pressure 119/48 L 119/58 L 174/60 H Pulse Oximetry Oxygen Delivery Fraction of Inspired Oxygen 07/16/24 09:53 07/16/24 09:57 07/16/24 10:00 Temperature 37.3 C Pulse Rate 83 70 86 Respiratory Rate 19 Blood Pressure 93/28 L 133/43 L 100/43 L Pulse Oximetry 77 L Oxygen Delivery Fraction of Inspired Oxygen 02/20/25 10:20 07/16/24 10:30 07/16/24 10:44 Temperature Pulse Rate 83 86 86 Respiratory Rate Blood Pressure 93/28 L 100/43 L Pulse Oximetry 100 Oxygen Delivery Mechanical Ventilation Fraction of Inspired Oxygen 100 07/16/24 11:00 07/16/24 11:15 Temperature Pulse Rate 85 84 Respiratory Rate Blood Pressure 103/42 L 101/39 L Pulse Oximetry Oxygen Delivery Fraction of Inspired Oxygen Intake/Output Intake/Output: Intake & Output 07/13/24 07/14/24 07/15/24 07/16/24 23:59 23:59 23:59 23:59 Intake Total 1614.5 1988 1060 901.7 Output Total 700 1000 1400 229 Balance 914.5 988 -340 672.7 Meds/Results Medications: Active Medications Generic Name Dose Route Start Last Admin Trade Name Freq PRN Reason Stop Dose Admin Albuterol/Ipratropium 3 ml 06/29/24 02:00 07/16/24 08:28 Ipratropium 0.5 Mg/Albuterol Sulfate 2.5 Mg Ampul.Neb 3 Ml INHALATION 3 ml Q6HRT BARBARA Administration Alteplase, Recombinant 2 mg 07/16/24 10:24 07/16/24 11:22 Alteplase 2 Mg Vial (Cathflo) IV PUSH 2 mg ONCE PRN Administration Line Occlusion Amiodarone HCl 400 mg 07/09/24 12:20 07/16/24 08:08 Amiodarone Hcl 200 Mg Tablet PO 400 mg Q12HR BARBARA Administration Aspirin 81 mg 07/01/24 08:00 07/13/24 08:24 Aspirin 81 Mg Chewable Tablet PO 81 mg DAILY@0800 BARBARA Administration Atorvastatin Calcium 40 mg 06/29/24 09:00 07/16/24 08:08 Atorvastatin 40 Mg Tablet PO 40 mg DAILY BARBARA Administration Dextrose 12.5 gm 06/29/24 08:08 Dextrose 50% 25 Gm/50 Ml Syringe IV PUSH PRN PRN Hypoglycemia Protocol Fluconazole 100 mg 07/14/24 14:20 07/16/24 08:08 Fluconazole 100 Mg Tablet FEED TUBE 07/27/24 09:01 100 mg QAM BARBARA Administration Glucagon 1 mg 06/29/24 08:08 Glucagon For Inj 1 Mg Vial IM PRN PRN Hypoglycemia Protocol Glucose 15 gm 06/29/24 08:08 Glucose Oral Gel 15 Gm Of Glucse In 37.5 Gm Tube PO PRN PRN Hypoglycemia Protocol Heparin Sodium (Porcine) 5,000 units 07/07/24 11:24 Heparin Sodium 5,000 Units/Ml Vial IV PUSH PRN PRN aPTT less than 55 seconds Heparin Sodium (Porcine) 2,500 units 07/07/24 11:24 07/09/24 07:21 Heparin Sodium 5,000 Units/Ml Vial IV PUSH 2,500 units PRN PRN Administration aPTT 55 - 70 seconds Hydralazine HCl 10 mg 07/06/24 16:42 07/06/24 17:03 Hydralazine Hcl 20 Mg/Ml Vial IV PUSH 10 mg Q4H PRN Administration Blood Pressure - High Dextrose 1,000 mls @ 100 mls/hr 06/29/24 08:08 Dextrose 5% 1,000 Ml IVPB PRN PRN Hypoglycemia Protocol Heparin Sodium/Dextrose 25,000 units in 250 mls @ 0 mls/hr 07/07/24 11:25 07/10/24 08:52 Heparin Sodium/D5w 100 Units/Ml IV CONT 0 units/hr .Q0M BARBARA 0 mls/hr Titration Protocol Dexmedetomidine HCl 400 mcg in 100 mls @ 3.885 mls/hr 07/13/24 16:00 07/14/24 16:20 Precedex 400 Mcg/100 Ml IV CONT Not Given .[id number] BARBARA Protocol 0.2 MCG/KG/HR Albumin Human 50 mls @ 999 mls/hr 07/15/24 10:24 Albutein IVPB 08/14/24 10:23 Q10M PRN HYPOTENSION Norepinephrine Bitartrate 8 mg in 250 mls @ 18.75 mls/hr 07/16/24 09:45 07/16/24 11:15 Levophed 8 Mg/D5w 250 Ml IV CONT 14 mcg/min .[id number] BARBARA 26.25 mls/hr Titration Protocol 10 MCG/MIN Insulin Aspart 3 - 6 units 06/29/24 12:00 07/16/24 06:07 Insulin Aspart (*Bkc) 100 Units/Ml SUB-Q Not Given Q6HR BARBARA Protocol Insulin Glargine 12 units 07/15/24 21:00 07/15/24 20:55 Insulin Glargine (*Bkc) 100 Units/Ml SUB-Q 12 units HS BARBARA Administration Levothyroxine Sodium 50 mcg 06/30/24 06:30 07/16/24 04:45 Levothyroxine Sodium 50 Mcg Tablet FEED TUBE 50 mcg DAILY@0630 BARBARA Administration Multi-Ingred Cream/Lotion/Oil/Oint 1 applic 06/29/24 09:00 07/16/24 08:08 Mineral Oil/White Petrolatum Ointment EACH EYE 1 applic Q12HR BARBARA Administration Pantoprazole Sodium 40 mg 07/06/24 21:00 07/16/24 08:08 Pantoprazole Sodium Iv 40 Mg Vial IV PUSH 40 mg Q12HR BARBARA Administration Sodium Chloride 10 ml 06/29/24 14:00 07/16/24 04:45 Central Line Flush IV PUSH 10 ml Q8HR BARBARA Administration Sodium Chloride 10 ml 06/29/24 12:40 Central Line Flush IV PUSH PRN PRN with TPN bag changes Sodium Chloride 20 ml 06/29/24 12:40 Central Line Flush IV PUSH PRN PRN after blood draws Radiology Results: ITS Impressions Abdomen X-Ray 06/28/24 20:03 IMPRESSION: Nasogastric tube in good position and ready for immediate use. Abdomen Ultrasound 07/03/24 14:12 IMPRESSION: 1. Normal right upper quadrant ultrasound status post cholecystectomy. Renal Ultrasound 07/06/24 08:30 IMPRESSION: 1. No hydronephrosis in either kidney. Head CT 07/08/24 10:08 IMPRESSION: 1. No acute intracranial process. 2. 8 mm calcified extra-axial mass overlying the left parietal lobe most consistent with a meningioma. Chest/Abdomen/Pelvis CT 07/14/24 15:26 IMPRESSION: 1. Bilateral lower lobe pneumonia. 2. Small pleural effusions. 3. Severe emphysema. Central Venous Line 07/15/24 16:37 IMPRESSION: 1. Placement of a likely tunneled dual-lumen right internal jugular central venous catheter with distal tip at the caudal superior vena cava. See procedure note for further detail. Chest X-Ray 07/16/24 10:27 IMPRESSION: 1. Emphysema. 2. Persistent interstitial and airspace opacities in the bilateral mid and lower lung zones given appearance on prior CT would favor pneumonia over pulmonary edema. 3. Small bilateral pleural effusions. Labs Labs: Laboratory Results - last 24 hr 07/06/24 07/15/24 07/15/24 06:44 12:02 17:49 WBC RBC Hgb Hct MCV MCH MCHC RDW Plt Count MPV Puncture Site ABG pH ABG pCO2 ABG pO2 ABG PO2/FiO2 Ratio ABG HCO3 ABG O2 Saturation ABG O2 Content ABG Base Excess A-a Gradient Oxyhemoglobin Carboxyhemoglobin Methemoglobin Reduced Hemoglobin Total Hemoglobin O2 Delivery Device O2 Liters/Min Minute Volume Vent Rate Vent Mode FiO2 Tidal Volume PEEP Peak Inspir Pressure Pressure Support Sodium Potassium Chloride Carbon Dioxide Anion Gap BUN Creatinine Estim Creat Clear Calc Estimated GFR Glucose POC Capillary Glucose 129 H 144 H Calcium Magnesium Total Bilirubin AST ALT Alkaline Phosphatase Total Protein Albumin Renin 3.70 07/15/24 07/15/24 07/16/24 20:10 23:54 04:40 WBC 24.6 H RBC 2.66 L Hgb 7.9 L Hct 25.1 L MCV 94.4 MCH 29.7 MCHC 31.5 L RDW 18.0 H Plt Count 266 MPV 11.9 H Puncture Site ABG pH ABG pCO2 ABG pO2 ABG PO2/FiO2 Ratio ABG HCO3 ABG O2 Saturation ABG O2 Content ABG Base Excess A-a Gradient Oxyhemoglobin Carboxyhemoglobin Methemoglobin Reduced Hemoglobin Total Hemoglobin O2 Delivery Device O2 Liters/Min Minute Volume Vent Rate Vent Mode FiO2 Tidal Volume PEEP Peak Inspir Pressure Pressure Support Sodium 143 Potassium 4.8 Chloride 106 Carbon Dioxide 25 Anion Gap 12 BUN 188 H D Creatinine 4.06 H Estim Creat Clear Calc 11 Estimated GFR 11 L Glucose 147 H POC Capillary Glucose 115 H 120 H Calcium 9.3 Magnesium 2.8 H Total Bilirubin 0.5 AST 38 H ALT 19 Alkaline Phosphatase 122 Total Protein 6.0 L Albumin 3.0 L Renin 07/16/24 07/16/24 05:10 09:45 WBC RBC Hgb Hct MCV MCH MCHC RDW Plt Count MPV Puncture Site Right radial Left radial ABG pH 7.284 L* 7.206 L* ABG pCO2 53.2 H 67.1 H* ABG pO2 66.1 L 213.8 H ABG PO2/FiO2 Ratio 1.20 2.14 ABG HCO3 24.7 26.0 ABG O2 Saturation 90.4 L 99.2 ABG O2 Content 11.3 L 12.0 L ABG Base Excess -2.2 -2.3 A-a Gradient 266.9 432.1 Oxyhemoglobin 90.0 98.4 Carboxyhemoglobin 0.9 0.7 Methemoglobin 0.3 0.3 Reduced Hemoglobin 8.8 H 0.6 Total Hemoglobin 8.9 L 8.3 L O2 Delivery Device Ventilator Ventilator O2 Liters/Min Not Reportable Not Reportable Minute Volume Not Reportable Not Reportable Vent Rate 16 18 Vent Mode Cmv Cmv FiO2 55 100 Tidal Volume 480 480 PEEP 8 8 Peak Inspir Pressure Not Reportable Not Reportable Pressure Support Not Reportable Not Reportable Sodium Potassium Chloride Carbon Dioxide Anion Gap BUN Creatinine Estim Creat Clear Calc Estimated GFR Glucose POC Capillary Glucose Calcium Magnesium Total Bilirubin AST ALT Alkaline Phosphatase Total Protein Albumin Renin Quality VTE Prophylaxis VTE prophylaxis: pharmacologic ordered
[2024-07-16 11:45] LABS: Hematocrit 24.3 % (37.0-47.0); Hemoglobin 7.6 g/dL (12.0-15.0); Mean Corpuscular HGB Conc 31.3 g/dl (32-36); Mean Corpuscular Hemoglobin 29.3 pg (26-34); Mean Corpuscular Volume 93.8 fl (80-100); Mean Platelet Volume 11.2 fl (7.4-10.4); Platelet Count Result 289 k/mm3 (150-375); Red Blood Count 2.59 M/mm3 (4.2-5.4); Red Cell Distribution Width 18.1 % (11.5-14.5); White Blood Count 31.6 K/mm3 (4.5-10.0)
[2024-07-16 11:53] LABS: Glucose Point of Care 114 mg/dl (65-105)
[2024-07-16 12:04] LABS: Alanine Aminotransferase 23 U/L (6-35); Albumin Level 2.8 g/dL (3.5-5.1); Alkaline Phosphatase 151 U/L (38-126); Anion Gap 9 mmol/L (4-12); Aspartate Amino Transferase 48 U/L (14-36); Bilirubin,Total 0.5 mg/dL (0.2-1.3); Calcium 8.8 mg/dL (8.4-10.2); Carbon Dioxide 30 mmol/L (22-30); Chloride 106 mmol/L (98-107); Estimated CRCL calculation 11 ml/min; Estimated Glomerular Filt Rate 12; Glucose 146 mg/dL (65-110); Magnesium 2.6 mg/dL (1.6-2.3); Potassium 4.5 mmol/L (3.4-5.0); Sodium 145 mmol/L (137-145)
[2024-07-16 12:20] LABS: Blood Urea Nitrogen 173 mg/dL (7-17)
--- NOTE | 2024-07-16 12:51 | PM.PNNEP ---
Subjective Date/time seen: 07/16/24 12:51 Objective Data Vital Signs Vital Signs: Vital Signs Temp Pulse Resp BP Pulse Ox O2 Del Method FiO2 07/16/24 12:35 78 100 Mechanical Ventilation 80 07/16/24 12:00 98.5 F 83 25 H 124/39 L 100 07/16/24 12:00 100 07/16/24 12:00 82 07/16/24 12:00 78 25 H 100 Mechanical Ventilation 100 07/16/24 12:00 82 124/39 L 07/16/24 11:30 83 112/39 L 07/16/24 11:15 84 101/39 L 07/16/24 11:00 85 103/42 L 07/16/24 10:44 86 100 Mechanical Ventilation 100 07/16/24 10:30 86 100/43 L 07/16/24 10:20 83 93/28 L 07/16/24 10:00 87 07/16/24 10:00 100 07/16/24 10:00 99.1 F 86 19 100/43 L 77 L 07/16/24 09:57 70 133/43 L 07/16/24 09:53 83 93/28 L 07/16/24 09:45 70 174/60 H 07/16/24 09:28 70 119/58 L 07/16/24 09:14 70 119/48 L 07/16/24 08:50 55 07/16/24 08:50 99.0 F 70 17 126/52 L 94 07/16/24 08:49 71 17 07/16/24 08:45 71 98 Mechanical Ventilation 55 07/16/24 08:29 70 18 07/16/24 08:08 70 07/16/24 08:00 70 07/16/24 08:00 99.0 F 71 23 H 126/52 L 94 07/16/24 08:00 55 07/16/24 08:00 70 19 94 Mechanical Ventilation 55 07/16/24 06:25 70 94 Mechanical Ventilation 55 07/16/24 06:00 99.1 F 71 16 107/52 L 93 07/16/24 06:00 71 07/16/24 05:18 72 92 Mechanical Ventilation 55 07/16/24 04:00 98.7 F 72 24 H 108/48 L 92 07/16/24 04:00 71 07/16/24 03:39 73 19 93 Mechanical Ventilation 55 07/16/24 03:38 55 07/16/24 02:15 71 16 07/16/24 02:05 72 17 07/16/24 02:05 72 95 Mechanical Ventilation 55 07/16/24 02:00 73 07/16/24 02:00 98.8 F 74 22 H 143/65 H 96 07/16/24 00:00 73 07/16/24 00:00 98.6 F 74 23 H 143/65 H 95 07/15/24 23:53 76 20 94 Mechanical Ventilation 55 07/15/24 23:53 55 07/15/24 23:12 75 94 Mechanical Ventilation 55 07/15/24 22:00 98.4 F 76 24 H 147/58 H 91 07/15/24 22:00 74 07/15/24 20:56 71 07/15/24 20:31 74 16 07/15/24 20:05 74 16 07/15/24 20:05 74 95 Mechanical Ventilation 55 07/15/24 20:00 75 07/15/24 20:00 71 16 95 Mechanical Ventilation 55 07/15/24 20:00 55 07/15/24 20:00 98.2 F 74 28 H 140/53 L 95 07/15/24 18:00 73 07/15/24 18:00 97.7 F 73 30 H 152/60 H 94 Intake/Output Intake/Output: Intake & Output 07/13/24 07/14/24 07/15/24 07/16/24 23:59 23:59 23:59 23:59 Intake Total 1614.5 1988 1060 1019.9 Output Total 700 1000 1400 229 Balance 914.5 988 -340 790.9 Meds/Results Medications: Active Medications Generic Name Dose Route Start Last Admin Trade Name Freq PRN Reason Stop Dose Admin Albuterol/Ipratropium 3 ml 06/29/24 02:00 07/16/24 14:26 Ipratropium 0.5 Mg/Albuterol Sulfate 2.5 Mg Ampul.Neb 3 Ml INHALATION 3 ml Q6HRT BARBARA Administration Alteplase, Recombinant 2 mg 07/16/24 10:24 07/16/24 14:10 Alteplase 2 Mg Vial (Cathflo) IV PUSH 2 mg ONCE PRN Administration Line Occlusion Amiodarone HCl 400 mg 07/09/24 12:20 07/16/24 08:08 Amiodarone Hcl 200 Mg Tablet PO 400 mg Q12HR BARBARA Administration Aspirin 81 mg 07/01/24 08:00 07/13/24 08:24 Aspirin 81 Mg Chewable Tablet PO 81 mg DAILY@0800 BARBARA Administration Atorvastatin Calcium 40 mg 06/29/24 09:00 07/16/24 08:08 Atorvastatin 40 Mg Tablet PO 40 mg DAILY BARBARA Administration Dextrose 12.5 gm 06/29/24 08:08 Dextrose 50% 25 Gm/50 Ml Syringe IV PUSH PRN PRN Hypoglycemia Protocol Fluconazole 100 mg 07/14/24 14:20 07/16/24 08:08 Fluconazole 100 Mg Tablet FEED TUBE 07/27/24 09:01 100 mg QAM BARBARA Administration Glucagon 1 mg 06/29/24 08:08 Glucagon For Inj 1 Mg Vial IM PRN PRN Hypoglycemia Protocol Glucose 15 gm 06/29/24 08:08 Glucose Oral Gel 15 Gm Of Glucse In 37.5 Gm Tube PO PRN PRN Hypoglycemia Protocol Heparin Sodium (Porcine) 5,000 units 07/07/24 11:24 Heparin Sodium 5,000 Units/Ml Vial IV PUSH PRN PRN aPTT less than 55 seconds Heparin Sodium (Porcine) 2,500 units 07/07/24 11:24 07/09/24 07:21 Heparin Sodium 5,000 Units/Ml Vial IV PUSH 2,500 units PRN PRN Administration aPTT 55 - 70 seconds Hydralazine HCl 10 mg 07/06/24 16:42 07/06/24 17:03 Hydralazine Hcl 20 Mg/Ml Vial IV PUSH 10 mg Q4H PRN Administration Blood Pressure - High Dextrose 1,000 mls @ 100 mls/hr 06/29/24 08:08 Dextrose 5% 1,000 Ml IVPB PRN PRN Hypoglycemia Protocol Heparin Sodium/Dextrose 25,000 units in 250 mls @ 0 mls/hr 07/07/24 11:25 07/10/24 08:52 Heparin Sodium/D5w 100 Units/Ml IV CONT 0 units/hr .Q0M BARBARA 0 mls/hr Titration Protocol Dexmedetomidine HCl 400 mcg in 100 mls @ 3.885 mls/hr 07/13/24 16:00 07/14/24 16:20 Precedex 400 Mcg/100 Ml IV CONT Not Given .[id number] BARBARA Protocol 0.2 MCG/KG/HR Albumin Human 50 mls @ 999 mls/hr 07/15/24 10:24 Albutein IVPB 08/14/24 10:23 Q10M PRN HYPOTENSION Norepinephrine Bitartrate 8 mg in 250 mls @ 18.75 mls/hr 07/16/24 09:45 07/16/24 16:00 Levophed 8 Mg/D5w 250 Ml IV CONT 10 mcg/min .[id number] BARBARA 18.75 mls/hr Titration Protocol 10 MCG/MIN Insulin Aspart 3 - 6 units 06/29/24 12:00 07/16/24 12:32 Insulin Aspart (*Bkc) 100 Units/Ml SUB-Q Not Given Q6HR BARBARA Protocol Insulin Glargine 12 units 07/15/24 21:00 07/15/24 20:55 Insulin Glargine (*Bkc) 100 Units/Ml SUB-Q 12 units HS BARBARA Administration Levothyroxine Sodium 50 mcg 06/30/24 06:30 07/16/24 04:45 Levothyroxine Sodium 50 Mcg Tablet FEED TUBE 50 mcg DAILY@0630 BARBARA Administration Multi-Ingred Cream/Lotion/Oil/Oint 1 applic 06/29/24 09:00 07/16/24 08:08 Mineral Oil/White Petrolatum Ointment EACH EYE 1 applic Q12HR BARBARA Administration Pantoprazole Sodium 40 mg 07/06/24 21:00 07/16/24 08:08 Pantoprazole Sodium Iv 40 Mg Vial IV PUSH 40 mg Q12HR BARBARA Administration Sodium Chloride 10 ml 06/29/24 14:00 07/16/24 14:11 Central Line Flush IV PUSH 10 ml Q8HR BARBARA Administration Sodium Chloride 10 ml 06/29/24 12:40 Central Line Flush IV PUSH PRN PRN with TPN bag changes Sodium Chloride 20 ml 06/29/24 12:40 Central Line Flush IV PUSH PRN PRN after blood draws Radiology Results: ITS Impressions Abdomen X-Ray 06/28/24 20:03 IMPRESSION: Nasogastric tube in good position and ready for immediate use. Abdomen Ultrasound 07/03/24 14:12 IMPRESSION: 1. Normal right upper quadrant ultrasound status post cholecystectomy. Renal Ultrasound 07/06/24 08:30 IMPRESSION: 1. No hydronephrosis in either kidney. Head CT 07/08/24 10:08 IMPRESSION: 1. No acute intracranial process. 2. 8 mm calcified extra-axial mass overlying the left parietal lobe most consistent with a meningioma. Chest/Abdomen/Pelvis CT 07/14/24 15:26 IMPRESSION: 1. Bilateral lower lobe pneumonia. 2. Small pleural effusions. 3. Severe emphysema. Central Venous Line 07/15/24 16:37 IMPRESSION: 1. Placement of a likely tunneled dual-lumen right internal jugular central venous catheter with distal tip at the caudal superior vena cava. See procedure note for further detail. Chest X-Ray 07/16/24 10:27 IMPRESSION: 1. Emphysema. 2. Persistent interstitial and airspace opacities in the bilateral mid and lower lung zones given appearance on prior CT would favor pneumonia over pulmonary edema. 3. Small bilateral pleural effusions. Labs Labs: Laboratory Tests 07/16/24 11:36 07/16/24 11:36 07/15/24 07/15/24 07/15/24 17:49 20:10 23:54 WBC RBC Hgb Hct MCV MCH MCHC RDW Plt Count MPV Puncture Site ABG pH ABG pCO2 ABG pO2 ABG PO2/FiO2 Ratio ABG HCO3 ABG O2 Saturation ABG O2 Content ABG Base Excess A-a Gradient Oxyhemoglobin Carboxyhemoglobin Methemoglobin Reduced Hemoglobin Total Hemoglobin O2 Delivery Device O2 Liters/Min Minute Volume Vent Rate Vent Mode FiO2 Tidal Volume PEEP Peak Inspir Pressure Pressure Support Sodium Potassium Chloride Carbon Dioxide Anion Gap BUN Creatinine Estim Creat Clear Calc Estimated GFR Glucose POC Capillary Glucose 144 H 115 H 120 H Calcium Magnesium Total Bilirubin AST ALT Alkaline Phosphatase Total Protein Albumin 07/16/24 07/16/24 07/16/24 04:40 05:10 09:45 WBC 24.6 H RBC 2.66 L Hgb 7.9 L Hct 25.1 L MCV 94.4 MCH 29.7 MCHC 31.5 L RDW 18.0 H Plt Count 266 MPV 11.9 H Puncture Site Right radial Left radial ABG pH 7.284 L* 7.206 L* ABG pCO2 53.2 H 67.1 H* ABG pO2 66.1 L 213.8 H ABG PO2/FiO2 Ratio 1.20 2.14 ABG HCO3 24.7 26.0 ABG O2 Saturation 90.4 L 99.2 ABG O2 Content 11.3 L 12.0 L ABG Base Excess -2.2 -2.3 A-a Gradient 266.9 432.1 Oxyhemoglobin 90.0 98.4 Carboxyhemoglobin 0.9 0.7 Methemoglobin 0.3 0.3 Reduced Hemoglobin 8.8 H 0.6 Total Hemoglobin 8.9 L 8.3 L O2 Delivery Device Ventilator Ventilator O2 Liters/Min Not Reportable Not Reportable Minute Volume Not Reportable Not Reportable Vent Rate 16 18 Vent Mode Cmv Cmv FiO2 55 100 Tidal Volume 480 480 PEEP 8 8 Peak Inspir Pressure Not Reportable Not Reportable Pressure Support Not Reportable Not Reportable Sodium 143 Potassium 4.8 Chloride 106 Carbon Dioxide 25 Anion Gap 12 BUN 188 H D Creatinine 4.06 H Estim Creat Clear Calc 11 Estimated GFR 11 L Glucose 147 H POC Capillary Glucose Calcium 9.3 Magnesium 2.8 H Total Bilirubin 0.5 AST 38 H ALT 19 Alkaline Phosphatase 122 Total Protein 6.0 L Albumin 3.0 L 07/16/24 07/16/24 11:36 11:50 WBC 31.6 H RBC 2.59 L Hgb 7.6 L Hct 24.3 L MCV 93.8 MCH 29.3 MCHC 31.3 L RDW 18.1 H Plt Count 289 MPV 11.2 H Puncture Site ABG pH ABG pCO2 ABG pO2 ABG PO2/FiO2 Ratio ABG HCO3 ABG O2 Saturation ABG O2 Content ABG Base Excess A-a Gradient Oxyhemoglobin Carboxyhemoglobin Methemoglobin Reduced Hemoglobin Total Hemoglobin O2 Delivery Device O2 Liters/Min Minute Volume Vent Rate Vent Mode FiO2 Tidal Volume PEEP Peak Inspir Pressure Pressure Support Sodium 145 Potassium 4.5 Chloride 106 Carbon Dioxide 30 Anion Gap 9 BUN 173 H D Creatinine 3.75 H Estim Creat Clear Calc 11 Estimated GFR 12 L Glucose 146 H POC Capillary Glucose 114 H Calcium 8.8 Magnesium 2.6 H Total Bilirubin 0.5 AST 48 H ALT 23 Alkaline Phosphatase 151 H Total Protein 6.0 L Albumin 2.8 L
--- NOTE | 2024-07-16 13:00 | PCFNICU ---
ICU Rounding Note: Pt current nutrition NPO. Last recorded weight is 80.8 kg, up from 64.3 kg on admit. Bowel Motility: Last reported BM 07/10, nursing is aware. Labs Reviewed:BUN 173, Cr 3.75, Glu 146, Mg 2.6, Alb 2.8, Hgb 7.6, Hct 24.3 Meds Noted:Lantus, Protonix, NovoLog,Levophed Skin: Deep Tissue-coccyx Additional Notes: Patient tube feedings on hold at this time 06/28 to code blue during Dialysis today. Would recommend Nepro at 40 ml/hr with protein modular of Ish BID for wound healing when restarting tube feedings. Flush 100 ml q 4 hours. Agree with diet orders. Following daily in ICU rounds. Will monitor weight, labs, skin, diet orders, meds, tube feedings tolerance every Saturday and Saturday.
--- NOTE | 2024-07-16 14:20 | WPDANESPN ---
Anes - Prog Note Post-Op Date/Time: 07/16/24 14:20 Airway patency: baseline (trach in place) Vital Signs: Last Vital Signs Temp 36.9 C 07/16/24 12:00 Pulse 79 07/16/24 14:00 Resp 25 H 07/16/24 12:00 BP 136/72 07/16/24 14:00 Pulse Ox 100 07/16/24 12:35 O2 Del Method Mechanical Ventilation 07/16/24 12:35 FiO2 80 07/16/24 12:35 Pain Score (VAS): unable to obtain score as patient is nonverbal at this time I/O: Intake & Output 07/15/24 07/16/24 07/16/24 23:59 07:59 15:59 Intake Total 320 880 93.9 Output Total 300 200 29 Balance 20 680 64.9 Laboratory Tests 07/16/24 11:36 07/16/24 11:36 07/15/24 07/15/24 07/15/24 17:49 20:10 23:54 WBC RBC Hgb Hct MCV MCH MCHC RDW Plt Count MPV Puncture Site ABG pH ABG pCO2 ABG pO2 ABG PO2/FiO2 Ratio ABG HCO3 ABG O2 Saturation ABG O2 Content ABG Base Excess A-a Gradient Oxyhemoglobin Carboxyhemoglobin Methemoglobin Reduced Hemoglobin Total Hemoglobin O2 Delivery Device O2 Liters/Min Minute Volume Vent Rate Vent Mode FiO2 Tidal Volume PEEP Peak Inspir Pressure Pressure Support Sodium Potassium Chloride Carbon Dioxide Anion Gap BUN Creatinine Estim Creat Clear Calc Estimated GFR Glucose POC Capillary Glucose 144 H 115 H 120 H Calcium Magnesium Total Bilirubin AST ALT Alkaline Phosphatase Total Protein Albumin 07/16/24 07/16/24 07/16/24 04:40 05:10 09:45 WBC 24.6 H RBC 2.66 L Hgb 7.9 L Hct 25.1 L MCV 94.4 MCH 29.7 MCHC 31.5 L RDW 18.0 H Plt Count 266 MPV 11.9 H Puncture Site Right radial Left radial ABG pH 7.284 L* 7.206 L* ABG pCO2 53.2 H 67.1 H* ABG pO2 66.1 L 213.8 H ABG PO2/FiO2 Ratio 1.20 2.14 ABG HCO3 24.7 26.0 ABG O2 Saturation 90.4 L 99.2 ABG O2 Content 11.3 L 12.0 L ABG Base Excess -2.2 -2.3 A-a Gradient 266.9 432.1 Oxyhemoglobin 90.0 98.4 Carboxyhemoglobin 0.9 0.7 Methemoglobin 0.3 0.3 Reduced Hemoglobin 8.8 H 0.6 Total Hemoglobin 8.9 L 8.3 L O2 Delivery Device Ventilator Ventilator O2 Liters/Min Not Reportable Not Reportable Minute Volume Not Reportable Not Reportable Vent Rate 16 18 Vent Mode Cmv Cmv FiO2 55 100 Tidal Volume 480 480 PEEP 8 8 Peak Inspir Pressure Not Reportable Not Reportable Pressure Support Not Reportable Not Reportable Sodium 143 Potassium 4.8 Chloride 106 Carbon Dioxide 25 Anion Gap 12 BUN 188 H D Creatinine 4.06 H Estim Creat Clear Calc 11 Estimated GFR 11 L Glucose 147 H POC Capillary Glucose Calcium 9.3 Magnesium 2.8 H Total Bilirubin 0.5 AST 38 H ALT 19 Alkaline Phosphatase 122 Total Protein 6.0 L Albumin 3.0 L 07/16/24 07/16/24 11:36 11:50 WBC 31.6 H RBC 2.59 L Hgb 7.6 L Hct 24.3 L MCV 93.8 MCH 29.3 MCHC 31.3 L RDW 18.1 H Plt Count 289 MPV 11.2 H Puncture Site ABG pH ABG pCO2 ABG pO2 ABG PO2/FiO2 Ratio ABG HCO3 ABG O2 Saturation ABG O2 Content ABG Base Excess A-a Gradient Oxyhemoglobin Carboxyhemoglobin Methemoglobin Reduced Hemoglobin Total Hemoglobin O2 Delivery Device O2 Liters/Min Minute Volume Vent Rate Vent Mode FiO2 Tidal Volume PEEP Peak Inspir Pressure Pressure Support Sodium 145 Potassium 4.5 Chloride 106 Carbon Dioxide 30 Anion Gap 9 BUN 173 H D Creatinine 3.75 H Estim Creat Clear Calc 11 Estimated GFR 12 L Glucose 146 H POC Capillary Glucose 114 H Calcium 8.8 Magnesium 2.6 H Total Bilirubin 0.5 AST 48 H ALT 23 Alkaline Phosphatase 151 H Total Protein 6.0 L Albumin 2.8 L Patient Feedback: Patient satisfied with anesthetic care.
[2024-07-16 18:00] LABS: Glucose Point of Care 150 mg/dl (65-105)
[2024-07-16] MEDS: INSULIN GLARGINE (*BKC) 100 UNITS/ML 12 UNITS SUB-Q (20:51)
[2024-07-16 20:59] LABS: Glucose Point of Care 159 mg/dl (65-105)
[2024-07-16] MEDS: NOREPINEPHRINE 8 MG/D5W 250 ML 8 MG/250 ML BAG 18.75 MG IV CONT (22:00)
[2024-07-17] VITALS (31 sets, daily range): BP systolic 67–164; BP diastolic 24–75; PULSE 69–83; RESP 17–24; TEMP 37–37.9; O2SAT 90–100
[2024-07-17] MEDS: IPRATROPIUM 0.5 MG/ALBUTEROL SULFATE 2.5 MG AMPUL.NEB 3 ML INHALATION ×2 (02:00→08:33)
[2024-07-17 05:11] LABS: Base Excess ABG -1.2 mEq/l (+/-2.0); Carboxyhemoglobin 0.7 % THb (0-2.0); Fractional Inspired Oxygen 60 %; HCO3 ABG 24.8 mEq/l (22.0-26.0); Methemoglobin ABG 0.3 %THb (0-1.5); Oxygen Content ABG 10.6 %vol (16.0-22.0); Oxygen Saturation ABG 92.4 % (95.0-100.0); Oxyhemoglobin 91.8 % THb (90.0-100.0); PCO2 ABG 48.3 mmHg (35.0-45.0); PO2 ABG 68.7 mmHg (80.0-100.0); PO2 FiO2 Ratio Arterial Blood 1.14 %; Reduced Hemoglobin 7.2 %THb (0-5.0); Total Hemoglobin 8.1 g/dL (12.0-18.0); pH ABG 7.329 (7.350-7.450)
[2024-07-17 05:13] LABS: Arterial Blood Gas PEEP 10 cmH2O; Arterial Blood Gas Vent Mode CMV; Arterial Blood Gas Ventilator rate 20 /MIN; Device VENTILATOR; Modified Allen's Test Pass; Site Drawn LEFT RADIAL
[2024-07-17 05:14] LABS: Arterial Blood Gas Tidal Volume 480 ml
[2024-07-17 05:55] LABS: Hematocrit 23.3 % (37.0-47.0); Hemoglobin 7.4 g/dL (12.0-15.0); Mean Corpuscular HGB Conc 31.8 g/dl (32-36); Mean Corpuscular Hemoglobin 30.2 pg (26-34); Mean Corpuscular Volume 95.1 fl (80-100); Mean Platelet Volume 10.7 fl (7.4-10.4); Platelet Count Result 258 k/mm3 (150-375); Red Blood Count 2.45 M/mm3 (4.2-5.4); Red Cell Distribution Width 18.4 % (11.5-14.5); White Blood Count 26.6 K/mm3 (4.5-10.0)
[2024-07-17 06:20] LABS: Sodium 143 mmol/L (137-145)
[2024-07-17 06:24] LABS: Alanine Aminotransferase 12 U/L (6-35); Alkaline Phosphatase 126 U/L (38-126); Anion Gap 13 mmol/L (4-12); Aspartate Amino Transferase 35 U/L (14-36); Bilirubin,Total 0.5 mg/dL (0.2-1.3); Calcium 8.8 mg/dL (8.4-10.2); Carbon Dioxide 26 mmol/L (22-30); Chloride 104 mmol/L (98-107); Estimated CRCL calculation 10 ml/min; Estimated Glomerular Filt Rate 10; Glucose 139 mg/dL (65-110); Magnesium 2.7 mg/dL (1.6-2.3); Potassium 4.7 mmol/L (3.4-5.0)
[2024-07-17 06:45] LABS: Blood Urea Nitrogen 187 mg/dL (7-17)
[2024-07-17] MEDS: CENTRAL LINE FLUSH 10 ML IV PUSH (07:35)
[2024-07-17] MEDS: LEVOTHYROXINE SODIUM 50 MCG TABLET FEED TUBE (07:36)
[2024-07-17] MEDS: AMIODARONE HCL 200 MG TABLET 400 MG PO (08:00)
[2024-07-17] MEDS: FLUCONAZOLE 100 MG TABLET FEED TUBE (08:01)
[2024-07-17] MEDS: ATORVASTATIN 40 MG TABLET PO (08:01)
[2024-07-17] MEDS: PANTOPRAZOLE SODIUM IV 40 MG VIAL IV PUSH (08:01)
[2024-07-17] MEDS: MINERAL OIL/WHITE PETROLATUM OINTMENT 1 APPLIC EACH EYE (08:01)
--- NOTE | 2024-07-17 09:34 | WPDINTPN ---
Progress Note: A&P Assessment and Plan (1) Cardiac arrest: Code(s): I46.9 - Cardiac arrest, cause unspecified Status: Acute Assessment and Plan: 07/16 Patient was on mechanical ventilation with FiO2 55% and peep of 8. Patient was started on hemodialysis today. Around 10 minutes and patient dropped her blood pressure and oxygen saturation. She also became bradycardic. I was called by the nursing staff to the room and I requested a mg of atropine to be given to the patient. Patient had decreased breath sound bilaterally from her severe COPD. Patient was taken off of the ventilator and bagged. Dialysis was paused. Soon patient went to PEA and CPR was initiated. Patient was given epinephrine and bicarb. I used bronchoscope to a certain tracheostomy he has location and trach tube was in the right place in trachea. Two rounds of CPR 2 dose of epinephrine led to ROSC. Patient's was noticed by his by phone by staff We waited for approximately 10 minutes patient was restarted on dialysis in place back on the ventilator. Again after few minutes patient had drop in blood pressure and saturation and went into PEA arrest. Patient was resuscitated with CPR and epinephrine and ROSC was obtained. Levophed was initiated ABG was obtained. A chest x-ray was obtained which showed no pneumothorax and overall no significant change. Peep was increased and FiO2 was increased to 100%. ABG 7./ Patient was given 1 amp of bicarb. Patient had another brief episode of PE a and was given 1 epi and 1 round of CPR before his pulse was obtained, patient placed back on ventilator. Chest x-ray 1. Emphysema. 2. Persistent interstitial and airspace opacities in the bilateral mid and lower lung zones given appearance on prior CT would favor pneumonia over pulmonary edema. 3. Small bilateral pleural effusions. Labs reviewed and did not show any significant abnormality from her past numbers 07/17 Plan for another attempt for dialysis today (2) Acute on chronic respiratory failure with hypoxia and hypercapnia: Code(s): J96.21 - Acute and chronic respiratory failure with hypoxia; J96.22 - Acute and chronic respiratory failure with hypercapnia Status: Acute Assessment and Plan: Acute on chronic respiratory failure secondary to severe COPD exacerbation. Community-acquired pneumonia although chest x-ray is not suggestive and patient is low procalcitonin level. WBC elevated MRSA screen negative 06/28/2024: Intubated in the ED 06/28: Blood cultures negative x2 -status post course of ceftriaxone and doxycycline -DC vancomycin (06/29), MRSA screen negative Patient failed her weaning trial on multiple days and eventually had tracheostomy done on 07/13 Now weaned off of sedation 07/16 patient drop in oxygen saturation and had cardiac arrest during dialysis. Chest x-ray reviewed. Trach evaluated with bronchoscope and is in adequate place. ABG shows high PA O2 suggesting the saturation was inaccurate. FiO2 increased to 100% peep increased to 14. Will wean FiO2 07/17 currently on FiO2 60% peep of 10. Plan for dialysis today not a candidate for weaning trial at this time CT chest 07/14 IMPRESSION: 1. Bilateral lower lobe pneumonia. 2. Small pleural effusions. 3. Severe emphysema. (3) Atrial fibrillation with RVR: Code(s): I48.91 - Unspecified atrial fibrillation Status: Acute Assessment and Plan: 07/06 evening: Patient went into SVT, status post adenosine 6 mg and 12 mg, underlying rhythm was AFib RVR, converted to normal sinus rhythm with IV metoprolol x1 and increasing her sedation. Patient remained in sinus rhythm also the morning of 07/07/2024. Off anticoagulation due to drop in hemoglobin coffee-ground emesis 07/06; TSH level within normal limits, troponin level with no change since admission Cardiology following On p.o. amiodarone Currently in sinus rhythm (4) RASHEL (acute kidney injury): Code(s): N17.9 - Acute kidney failure, unspecified Status: Acute Assessment and Plan: Acute kidney injury, likely related to hypotension, intravascular volume depletion, BUN elevated likely related to steroids -nephrology has been consulted and appreciate the evaluation and recommendation Despite conservative management patient's creatinine continued to increase with worsening of BUN 07/06: Renal ultrasound: No hydronephrosis in either kidney. Creatinine and BUN continues to increase. Although patient is still producing urine decision was made to initiate dialysis after consultation with Nephrology. Patient's was agreeable to proceed and consented 07/15 tunneled dialysis catheter was placed by general surgery and jewelry drilling machine operator notified 07/16 2 attempts were made to dialyze patient today and patient had a PEA arrest.. Dialysis has at this time 07/17 discussed with jewelry drilling machine operator will make another attempt to dialyze patient today. If unsuccessful patient may need CRRT family wishes to continue with supportive care (5) Acute exacerbation of chronic obstructive pulmonary disease: Code(s): J44.1 - Chronic obstructive pulmonary disease with (acute) exacerbation Status: Acute Assessment and Plan: Continue mechanical ventilation, bronchodilators, antibiotics, -patient has previous tracheostomy scar likely related to COPD exacerbation (6) Elevated troponin: Code(s): R77.8 - Other specified abnormalities of plasma proteins Status: Acute Assessment and Plan: Patient has elevated troponin likely secondary to demand ischemia from acute respiratory failure. EKG reviewed and does not show any ST elevation. Patient does not have any documented history of coronary disease. Troponins trending down Continue daily statin Aspirin is on hold due to anemia Appreciate cardiology evaluation and recommendation 06/29/2024: Echocardiogram Summary 1. The left ventricle is normal in size with thickened left ventricular rodríguez. The overall left ventricular systolic function appears preserved. Cannot rule out very mild hypokinesis of the apical wall. 2. The right ventricle is normal in size and systolic function. 3. The there is a small amount of pericardial effusion with no echocardiographic evidence of cardiac tamponade. (7) Hypothyroidism: Code(s): E03.9 - Hypothyroidism, unspecified Status: Acute Assessment and Plan: Continue levothyroxine. -07/06: TSH level - within normal limits (8) Electrolyte abnormality: Code(s): E87.8 - Other disorders of electrolyte and fluid balance, not elsewhere classified Status: Acute Assessment and Plan: Potassium levels within normal limits -appreciate Nephrology evaluation and recommendations (9) Elevated LFTs: Code(s): R79.89 - Other specified abnormal findings of blood chemistry Status: Acute Assessment and Plan: Right upper quadrant ultrasound was normal, status post cholecystectomy -hepatitis panel was within normal limit (10) Hyperglycemia: Code(s): R73.9 - Hyperglycemia, unspecified Status: Acute Assessment and Plan: Hyperglycemia likely related to tube feeds and or steroid Off steroid -continue Accu-Cheks and sliding scale insulin, Lantus (11) Anemia: Code(s): D64.9 - Anemia, unspecified Status: Acute Assessment and Plan: Patient dropped her hemoglobin to 8.3 from 10.9 (07/05) -07/06/2024: Stool occult was positive -iron panel did not show any iron deficiency, normal folate level -low vitamin B12 level, will give IM cyanocobalamin weekly x2 doses -continue Protonix to IV q.12 hours -appreciate GI evaluation , no endoscopy recommended at this time -hemoglobin remains stable 07/10: Patient dropped hemoglobin to 6.7 again, received 1 unit of packed RBCs. Heparin infusion was discontinued (which was for new onset atrial fibrillation RVR). 07/13: Hemoglobin dropped to 6.9 this morning, transfused 1 unit of packed RBCs, continue to monitor -hemoglobin stable, continue monitor (12) Encephalopathy: Code(s): G93.40 - Encephalopathy, unspecified Status: Acute Assessment and Plan: Metabolic and uremic -07/08: stat CT scan of the brain: 1. No acute intracranial process.2. 8 mm calcified extra-axial mass overlying the left parietal lobe most consistent with a meningioma. -ammonia level <9 -continue to monitor (13) Shock: Code(s): R57.9 - Shock, unspecified Status: Acute Assessment and Plan: 07/11: Patient with hypotension overnight, given IV fluid bolus. Started on Levophed, maintain MAP > 65 mmHg for adequate end organ perfusion especially renal perfusion -continue cefepime and vancomycin (07/08) for a total of 7 days -07/08: Blood cultures with no growth x2 -07/08: Sputum culture growing yeast 07/13: Levophed has been turned off on 07/11 at 4:00 p.m. . Blood pressures have been adequate, continue to monitor 07/16 Levophed resumed after cardiac arrest currently on low-dose (14) UTI (urinary tract infection): Code(s): N39.0 - Urinary tract infection, site not specified Status: Acute Assessment and Plan: Urine cultures growing Karla albicans Continue for consult Plan DVT prophylaxis -SCDs, no chemoprophylaxis due to anemia requiring blood transfusion Stress ulcer prophylaxis -PPI IV q.12 hours Nutrition -continue to feed Code Status - Full Code 07/17 I spoke to Patient's arrived at bedside and I had long discussion with patient's at bedside and patient's daughter who was on the phone and updated them with events from this morning. I explained them the patient is critically ill with multiorgan failure and has not tolerated 2 attempts of dialysis today per we discussed goals of care and option of palliative care. I also revisited code status with them.. Family at this point appears unrealistic about patient's prognosis and does not have clear understanding of how critical her medical condition is. I answered all their question Total Critical Care Time - 32 minutes Due to a high probability of clinically significant, life threatening deterioration, the patient required my highest level of preparedness to intervene emergently and I personally spent this critical care time directly and personally managing the patient. This critical care time included obtaining a history; examining the patient; pulse oximetry; ordering and review of studies; arranging urgent treatment with development of a management plan; evaluation of patient's response to treatment; frequent reassessment; and discussions with other providers. It was exclusive of separately billable procedures and treating other patients and teaching time. Please see Assessment and Plan section and the rest of the note for further information on patient assessment and treatment This dictation may have been done utilizing a voice recognition system. Attempts have been made to correct errors. However, there may be uncorrected grammatical, spelling, and recognitions errors present. Subjective Date/time seen: 07/17/24 Overnight events reviewed. Afebrile Continues to be on mechanical ventilation 60% FiO2 and 10 of PEEP Continues to be on low-dose Levophed Not any sedate Awake looks towards examiner on calling her name, tachypnea, does not follow command Sinus rhythm on the monitor Interval history: Reason for consult: COPD exacerbation, acute hypercapnic respiratory failure, NSTEMI with elevated troponin 07/08: CT brain was negative, was done for encephalopathy 07/10: PEG tube placement by GI 07/13: Tracheostomy placed by ENT 07/15: Tunneled dialysis catheter placement 07/16: PEA arrest during dialysis Review of Systems Review of Systems: ROS unobtainable: Yes unobtainable due to endotracheal tube, unobtainable due to medical condition and unobtainable due to mental status Exam Narrative: General: Pt is trached on mechanical ventilation HEENT: Pupils equal and reactive, sclera is clear, trach in place Lungs/Chest: Trachea central, adequate air entry, decrease breath sounds throughout, no wheezing Cardiac: Sinus rhythm, rate controlled Abdomen: Decreased bowel sounds. Nontender, nondistended Obese. Soft. . PEG in place Extremities: Positive edema, anasarca up to the thighs : Goddard in place Neurologic: Trached, not on sedation opens her eyes on calling her name and looks towards examiner and nodes are head intermittently but does not follow simple commands, grimaces to pain but does not withdraw. Objective Data Vital Signs Vital Signs: Vital Signs - 24 hr 07/16/24 09:45 07/16/24 09:53 07/16/24 09:57 Temperature Pulse Rate 70 83 70 Respiratory Rate Blood Pressure 174/60 H 93/28 L 133/43 L Pulse Oximetry Oxygen Delivery Fraction of Inspired Oxygen 07/16/24 10:00 07/16/24 10:00 07/16/24 10:00 Temperature 37.3 C Pulse Rate 86 87 Respiratory Rate 19 Blood Pressure 100/43 L Pulse Oximetry 77 L Oxygen Delivery Fraction of Inspired Oxygen 100 07/16/24 10:20 07/16/24 10:30 07/16/24 10:44 Temperature Pulse Rate 83 86 86 Respiratory Rate Blood Pressure 93/28 L 100/43 L Pulse Oximetry 100 Oxygen Delivery Mechanical Ventilation Fraction of Inspired Oxygen 100 07/16/24 11:00 07/16/24 11:15 07/16/24 11:30 Temperature Pulse Rate 85 84 83 Respiratory Rate Blood Pressure 103/42 L 101/39 L 112/39 L Pulse Oximetry Oxygen Delivery Fraction of Inspired Oxygen 07/16/24 12:00 07/16/24 12:00 07/16/24 12:00 Temperature Pulse Rate 82 78 82 Respiratory Rate 25 H Blood Pressure 124/39 L Pulse Oximetry 100 Oxygen Delivery Mechanical Ventilation Fraction of Inspired Oxygen 100 07/16/24 12:00 07/16/24 12:00 07/16/24 12:35 Temperature 36.9 C Pulse Rate 83 78 Respiratory Rate 25 H Blood Pressure 124/39 L Pulse Oximetry 100 100 Oxygen Delivery Mechanical Ventilation Fraction of Inspired Oxygen 100 80 07/16/24 14:00 07/16/24 14:00 07/16/24 14:00 Temperature 36.4 C L Pulse Rate 79 79 79 Respiratory Rate 27 H Blood Pressure 136/72 136/72 Pulse Oximetry 97 Oxygen Delivery Fraction of Inspired Oxygen 07/16/24 14:26 07/16/24 14:31 07/16/24 14:33 Temperature Pulse Rate 80 81 81 Respiratory Rate 21 H 20 Blood Pressure Pulse Oximetry 96 Oxygen Delivery Mechanical Ventilation Fraction of Inspired Oxygen 70 07/16/24 15:00 07/16/24 15:30 07/16/24 16:00 Temperature Pulse Rate 82 82 81 Respiratory Rate Blood Pressure 127/51 L 137/49 L 129/41 L Pulse Oximetry Oxygen Delivery Fraction of Inspired Oxygen 07/16/24 16:00 07/16/24 16:00 07/16/24 16:00 Temperature Pulse Rate 81 80 Respiratory Rate 30 H Blood Pressure Pulse Oximetry 92 Oxygen Delivery Mechanical Ventilation Fraction of Inspired Oxygen 70 70 07/16/24 16:00 07/16/24 16:56 07/16/24 18:00 Temperature 37.0 C 37.4 C Pulse Rate 81 76 75 Respiratory Rate 30 H 28 H Blood Pressure 129/41 L 119/45 L Pulse Oximetry 92 97 94 Oxygen Delivery Mechanical Ventilation Fraction of Inspired Oxygen 70 07/16/24 18:00 07/16/24 18:00 07/16/24 20:00 Temperature Pulse Rate 75 75 Respiratory Rate Blood Pressure 119/45 L Pulse Oximetry Oxygen Delivery Fraction of Inspired Oxygen 70 07/16/24 20:00 07/16/24 20:00 07/16/24 20:03 Temperature Pulse Rate 73 73 73 Respiratory Rate 20 Blood Pressure 114/39 L Pulse Oximetry 96 Oxygen Delivery Mechanical Ventilation Fraction of Inspired Oxygen 70 07/16/24 20:34 07/16/24 20:48 07/16/24 21:05 Temperature 37.6 C H Pulse Rate 73 72 74 Respiratory Rate 24 H 20 Blood Pressure 104/67 Pulse Oximetry 94 Oxygen Delivery Fraction of Inspired Oxygen 07/16/24 21:05 07/16/24 22:00 07/16/24 22:00 Temperature Pulse Rate 73 71 71 Respiratory Rate Blood Pressure 108/36 L Pulse Oximetry 96 Oxygen Delivery Mechanical Ventilation Fraction of Inspired Oxygen 70 07/16/24 22:00 07/16/24 22:00 07/17/24 00:00 Temperature 37.6 C H Pulse Rate 71 74 73 Respiratory Rate 20 Blood Pressure 108/36 L Pulse Oximetry 100 96 Oxygen Delivery Mechanical Ventilation Fraction of Inspired Oxygen 70 07/17/24 00:00 07/17/24 00:00 07/17/24 00:00 Temperature 37.4 C Pulse Rate 73 78 Respiratory Rate 20 24 H Blood Pressure 136/54 L Pulse Oximetry 96 91 Oxygen Delivery Mechanical Ventilation Fraction of Inspired Oxygen 70 70 07/17/24 00:00 07/17/24 00:00 07/17/24 01:30 Temperature Pulse Rate 78 71 76 Respiratory Rate Blood Pressure 146/49 H Pulse Oximetry Oxygen Delivery Fraction of Inspired Oxygen 07/17/24 02:00 07/17/24 02:00 07/17/24 02:00 Temperature 37.9 C H Pulse Rate 75 73 75 Respiratory Rate 20 21 H Blood Pressure 136/49 L Pulse Oximetry 98 96 Oxygen Delivery Mechanical Ventilation Fraction of Inspired Oxygen 70 07/17/24 02:00 07/17/24 02:10 07/17/24 02:15 Temperature Pulse Rate 75 75 76 Respiratory Rate 20 Blood Pressure 143/42 H Pulse Oximetry Oxygen Delivery Fraction of Inspired Oxygen 07/17/24 03:00 07/17/24 03:30 07/17/24 04:00 Temperature Pulse Rate 74 74 Respiratory Rate Blood Pressure 132/50 L 139/52 L Pulse Oximetry Oxygen Delivery Fraction of Inspired Oxygen 70 07/17/24 04:00 07/17/24 04:00 07/17/24 04:00 Temperature 37.7 C H Pulse Rate 73 71 71 Respiratory Rate 20 17 Blood Pressure 121/46 L Pulse Oximetry 96 100 Oxygen Delivery Mechanical Ventilation Fraction of Inspired Oxygen 70 07/17/24 04:00 07/17/24 05:00 07/17/24 06:00 Temperature Pulse Rate 72 71 72 Respiratory Rate Blood Pressure 121/46 L Pulse Oximetry 100 Oxygen Delivery Mechanical Ventilation Fraction of Inspired Oxygen 70 07/17/24 06:00 07/17/24 06:00 07/17/24 06:00 Temperature 37.5 C Pulse Rate 71 76 72 Respiratory Rate 23 H Blood Pressure 118/48 L 118/48 L Pulse Oximetry 93 Oxygen Delivery Fraction of Inspired Oxygen 07/17/24 08:00 07/17/24 08:00 07/17/24 08:00 Temperature Pulse Rate 72 72 Respiratory Rate 19 Blood Pressure Pulse Oximetry 91 Oxygen Delivery Mechanical Ventilation Fraction of Inspired Oxygen 60 60 07/17/24 08:00 07/17/24 08:01 07/17/24 08:16 Temperature 37.5 C Pulse Rate 72 72 72 Respiratory Rate 20 Blood Pressure 83/63 L 83/63 L 96/51 L Pulse Oximetry 92 Oxygen Delivery Fraction of Inspired Oxygen 07/17/24 08:27 07/17/24 08:35 Temperature Pulse Rate 71 71 Respiratory Rate 21 H Blood Pressure Pulse Oximetry 90 Oxygen Delivery Mechanical Ventilation Fraction of Inspired Oxygen 60 Intake/Output Intake/Output: Intake & Output 07/14/24 07/15/24 07/16/2407/17/25 23:59 23:59 23:59 23:59 Intake Total 1987 1060 1593.0 738.5 Output Total 1000 1400 1229 50 Balance 988 -340 364.0 688.5 Meds/Results Medications: Active Medications Generic Name Dose Route Start Last Admin Trade Name Freq PRN Reason Stop Dose Admin Albuterol/Ipratropium 3 ml 06/29/24 02:00 07/17/24 08:33 Ipratropium 0.5 Mg/Albuterol Sulfate 2.5 Mg Ampul.Neb 3 Ml INHALATION 3 ml Q6HRT BARBARA Administration Alteplase, Recombinant 2 mg 07/16/24 10:24 07/16/24 14:10 Alteplase 2 Mg Vial (Cathflo) IV PUSH 2 mg ONCE PRN Administration Line Occlusion Amiodarone HCl 400 mg 07/09/24 12:20 07/17/24 08:00 Amiodarone Hcl 200 Mg Tablet PO 400 mg Q12HR BARBARA Administration Aspirin 81 mg 07/01/24 08:00 07/13/24 08:24 Aspirin 81 Mg Chewable Tablet PO 81 mg DAILY@0800 BARBARA Administration Atorvastatin Calcium 40 mg 06/29/24 09:00 07/17/24 08:01 Atorvastatin 40 Mg Tablet PO 40 mg DAILY BARBARA Administration Dextrose 12.5 gm 06/29/24 08:08 Dextrose 50% 25 Gm/50 Ml Syringe IV PUSH PRN PRN Hypoglycemia Protocol Epoetin Mauri-epbx 10,000 units 07/17/24 18:29 Epoetin Mauri-Epbx 10,000 Units/Ml Vial IV PUSH 07/17/24 18:30 ONCE ONE Fluconazole 100 mg 07/14/24 14:20 07/17/24 08:01 Fluconazole 100 Mg Tablet FEED TUBE 07/27/24 09:01 100 mg QAM BARBARA Administration Glucagon 1 mg 06/29/24 08:08 Glucagon For Inj 1 Mg Vial IM PRN PRN Hypoglycemia Protocol Glucose 15 gm 06/29/24 08:08 Glucose Oral Gel 15 Gm Of Glucse In 37.5 Gm Tube PO PRN PRN Hypoglycemia Protocol Heparin Sodium (Porcine) 5,000 units 07/07/24 11:24 Heparin Sodium 5,000 Units/Ml Vial IV PUSH PRN PRN aPTT less than 55 seconds Heparin Sodium (Porcine) 2,500 units 07/07/24 11:24 07/09/24 07:21 Heparin Sodium 5,000 Units/Ml Vial IV PUSH 2,500 units PRN PRN Administration aPTT 55 - 70 seconds Hydralazine HCl 10 mg 07/06/24 16:42 07/06/24 17:03 Hydralazine Hcl 20 Mg/Ml Vial IV PUSH 10 mg Q4H PRN Administration Blood Pressure - High Dextrose 1,000 mls @ 100 mls/hr 06/29/24 08:08 Dextrose 5% 1,000 Ml IVPB PRN PRN Hypoglycemia Protocol Heparin Sodium/Dextrose 25,000 units in 250 mls @ 0 mls/hr 07/07/24 11:25 07/10/24 08:52 Heparin Sodium/D5w 100 Units/Ml IV CONT 0 units/hr .Q0M BARBARA 0 mls/hr Titration Protocol Albumin Human 50 mls @ 999 mls/hr 07/15/24 10:24 Albutein IVPB 08/14/24 10:23 Q10M PRN HYPOTENSION Norepinephrine Bitartrate 8 mg in 250 mls @ 11.25 mls/hr 07/16/24 09:45 07/17/24 08:16 Levophed 8 Mg/D5w 250 Ml IV CONT 6 mcg/min .[id number] BARBARA 11.25 mls/hr Titration Protocol 6 MCG/MIN Insulin Aspart 3 - 6 units 06/29/24 12:00 07/17/24 07:35 Insulin Aspart (*Bkc) 100 Units/Ml SUB-Q Not Given Q6HR BARBARA Protocol Insulin Glargine 12 units 07/15/24 21:00 07/16/24 20:51 Insulin Glargine (*Bkc) 100 Units/Ml SUB-Q 12 units HS BARBARA Administration Levothyroxine Sodium 50 mcg 06/30/24 06:30 07/17/24 07:36 Levothyroxine Sodium 50 Mcg Tablet FEED TUBE 50 mcg DAILY@0630 BARBARA Administration Multi-Ingred Cream/Lotion/Oil/Oint 1 applic 06/29/24 09:00 07/17/24 08:01 Mineral Oil/White Petrolatum Ointment EACH EYE 1 applic Q12HR BARBARA Administration Pantoprazole Sodium 40 mg 07/06/24 21:00 07/17/24 08:01 Pantoprazole Sodium Iv 40 Mg Vial IV PUSH 40 mg Q12HR BARBARA Administration Sodium Chloride 10 ml 06/29/24 14:00 07/17/24 07:35 Central Line Flush IV PUSH 10 ml Q8HR BARBARA Administration Sodium Chloride 10 ml 06/29/24 12:40 Central Line Flush IV PUSH PRN PRN with TPN bag changes Sodium Chloride 20 ml 06/29/24 12:40 Central Line Flush IV PUSH PRN PRN after blood draws Radiology Results: ITS Impressions Abdomen X-Ray 06/28/24 20:03 IMPRESSION: Nasogastric tube in good position and ready for immediate use. Abdomen Ultrasound 07/03/24 14:12 IMPRESSION: 1. Normal right upper quadrant ultrasound status post cholecystectomy. Renal Ultrasound 07/06/24 08:30 IMPRESSION: 1. No hydronephrosis in either kidney. Head CT 07/08/24 10:08 IMPRESSION: 1. No acute intracranial process. 2. 8 mm calcified extra-axial mass overlying the left parietal lobe most consistent with a meningioma. Chest/Abdomen/Pelvis CT 07/14/24 15:26 IMPRESSION: 1. Bilateral lower lobe pneumonia. 2. Small pleural effusions. 3. Severe emphysema. Central Venous Line 07/15/24 16:37 IMPRESSION: 1. Placement of a likely tunneled dual-lumen right internal jugular central venous catheter with distal tip at the caudal superior vena cava. See procedure note for further detail. Chest X-Ray 07/17/24 05:59 Impression: Bibasilar pulmonary edema versus pneumonia, left worse than right, probably mildly worsened from prior exam. Underlying COPD. Support tubes, as above. Labs Labs: Laboratory Results - last 24 hr 07/16/24 07/16/24 07/16/24 09:45 11:36 11:50 WBC 31.6 H RBC 2.59 L Hgb 7.6 L Hct 24.3 L MCV 93.8 MCH 29.3 MCHC 31.3 L RDW 18.1 H Plt Count 289 MPV 11.2 H Puncture Site Left radial ABG pH 7.206 L* ABG pCO2 67.1 H* ABG pO2 213.8 H ABG PO2/FiO2 Ratio 2.14 ABG HCO3 26.0 ABG O2 Saturation 99.2 ABG O2 Content 12.0 L ABG Base Excess -2.3 A-a Gradient 432.1 Oxyhemoglobin 98.4 Carboxyhemoglobin 0.7 Methemoglobin 0.3 Reduced Hemoglobin 0.6 Total Hemoglobin 8.3 L O2 Delivery Device Ventilator O2 Liters/Min Not Reportable Minute Volume Not Reportable Vent Rate 18 Vent Mode Cmv FiO2 100 Tidal Volume 480 PEEP 8 Peak Inspir Pressure Not Reportable Pressure Support Not Reportable Sodium 145 Potassium 4.5 Chloride 106 Carbon Dioxide 30 Anion Gap 9 BUN 173 H D Creatinine 3.75 H Estim Creat Clear Calc 11 Estimated GFR 12 L Glucose 146 H POC Capillary Glucose 114 H Calcium 8.8 Magnesium 2.6 H Total Bilirubin 0.5 AST 48 H ALT 23 Alkaline Phosphatase 151 H Total Protein 6.0 L Albumin 2.8 L 07/16/24 07/16/24 07/17/24 17:58 20:51 04:11 WBC 26.6 H RBC 2.45 L Hgb 7.4 L Hct 23.3 L MCV 95.1 MCH 30.2 MCHC 31.8 L RDW 18.4 H Plt Count 258 MPV 10.7 H Puncture Site ABG pH ABG pCO2 ABG pO2 ABG PO2/FiO2 Ratio ABG HCO3 ABG O2 Saturation ABG O2 Content ABG Base Excess A-a Gradient Oxyhemoglobin Carboxyhemoglobin Methemoglobin Reduced Hemoglobin Total Hemoglobin O2 Delivery Device O2 Liters/Min Minute Volume Vent Rate Vent Mode FiO2 Tidal Volume PEEP Peak Inspir Pressure Pressure Support Sodium 143 Potassium 4.7 Chloride 104 Carbon Dioxide 26 Anion Gap 13 H BUN 187 H D Creatinine 4.47 H Estim Creat Clear Calc 10 Estimated GFR 10 L Glucose 139 H POC Capillary Glucose 150 H 159 H Calcium 8.8 Magnesium 2.7 H Total Bilirubin 0.5 AST 35 ALT 12 Alkaline Phosphatase 126 Total Protein 6.0 L Albumin 3.0 L 07/17/24 05:04 WBC RBC Hgb Hct MCV MCH MCHC RDW Plt Count MPV Puncture Site Left radial ABG pH 7.329 L ABG pCO2 48.3 H ABG pO2 68.7 L ABG PO2/FiO2 Ratio 1.14 ABG HCO3 24.8 ABG O2 Saturation 92.4 L ABG O2 Content 10.6 L ABG Base Excess -1.2 A-a Gradient 306.0 Oxyhemoglobin 91.8 Carboxyhemoglobin 0.7 Methemoglobin 0.3 Reduced Hemoglobin 7.2 H Total Hemoglobin 8.1 L O2 Delivery Device Ventilator O2 Liters/Min Not Reportable Minute Volume Not Reportable Vent Rate 20 Vent Mode Cmv FiO2 60 Tidal Volume 480 PEEP 10 Peak Inspir Pressure Not Reportable Pressure Support Not Reportable Sodium Potassium Chloride Carbon Dioxide Anion Gap BUN Creatinine Estim Creat Clear Calc Estimated GFR Glucose POC Capillary Glucose Calcium Magnesium Total Bilirubin AST ALT Alkaline Phosphatase Total Protein Albumin Quality VTE Prophylaxis VTE prophylaxis: pharmacologic ordered
--- NOTE | 2024-07-17 09:46 | PM.PNCARD ---
Progress Note: A&P Assessment and Plan (1) Elevated troponin: Code(s): R77.8 - Other specified abnormalities of plasma proteins Status: Acute Plan 1. Acute on chronic hypoxic and hypercarbic respiratory failure due to COPD exacerbation, requiring mechanical ventilation. Now s/p tracheostomy. 2. COPD exacerbation, known severe COPD 3. RASHEL, now on dialysis 4. NSTEMI. Troponins peaked at 1.07. 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 Echocardiogram with preserved LVEF, cannot rule out very mild hypokinesis of the apical wall. 5. Coronary artery disease s/p MATTY x 2 to the RCA in 2019 for an acute coronary syndrome. Has not followed up with our office since 2019 (was seeing Dr. Morales). 6. Atrial fibrillation with RVR, new diagnosis. Now in sinus. 7. PEA cardiac arrest x 3 on 07/16 PLAN: -Continue ASA, statin. -Will decrease Amiodarone to 200mg daily. Heparin drip on hold for now per ICU team, will eventually need to be transitioned to NOAC. -Prognosis is poor. Patient not on sedation, however, not opening eyes on her own, not following commands. Ongoing goals of care discussion with the family. -Can consider ischemic evaluation depending on clinical course and if meaningful neurological recovery. Recommendations and plan discussed with ICU Physician. Subjective Date/time seen: 07/17/24 09:46 Interval history: Reason for visit: Elevated troponins HPI: 78-year-old woman with chronic hypoxic respiratory failure on home O2 4 L at night and hyperlipidemia presented with acute respiratory distress. She is currently intubated and history obtained through chart review. It appeared that she had worsening shortness of breath for 15 minutes prior to EMS arrival which mildly improved with CPAP in 10 mg of Decadron with 2 g of magnesium. However she quickly further decompensated requiring intubation with ABG demonstrating hypoxic hypercarbic acidosis. As part of her workup troponins were drawn which were elevated. Date of service 06/30: Remains intubated. Date of service 07/07: On 07/06, patient went into narrow complex tachycardia. Was given Adenosine 6mg followed by 12mg. Rhythm showed atrial flutter. Was given IV Metoprolol. Transiently went back into sinus, but now in AFIB with RVR this morning. Remains intubated. Date of service 07/08: Currently in sinus, however, had paroxysmal AFIB with RVR overnight and early this morning. Date of service 07/09: Patient is intubated and sedated Date of service 07/17: Yesterday, after starting hemodialysis, patient had PEA cardiac arrest x 3. Review of Systems Review of Systems: ROS unobtainable: Yes unobtainable due to medical condition Objective Data Vital Signs Vital Signs: Vital Signs - 24 hr 07/16/24 09:53 07/16/24 09:57 07/16/24 10:00 Temperature 37.3 C Pulse Rate 83 70 86 Respiratory Rate 19 Blood Pressure 93/28 L 133/43 L 100/43 L Pulse Oximetry 77 L Oxygen Delivery Fraction of Inspired Oxygen 07/16/24 10:00 07/16/24 10:00 07/16/24 10:20 Temperature Pulse Rate 87 83 Respiratory Rate Blood Pressure 93/28 L Pulse Oximetry Oxygen Delivery Fraction of Inspired Oxygen 100 07/16/24 10:30 07/16/24 10:44 07/16/24 11:00 Temperature Pulse Rate 86 86 85 Respiratory Rate Blood Pressure 100/43 L 103/42 L Pulse Oximetry 100 Oxygen Delivery Mechanical Ventilation Fraction of Inspired Oxygen 100 07/16/24 11:15 07/16/24 11:30 07/16/24 12:00 Temperature Pulse Rate 84 83 82 Respiratory Rate Blood Pressure 101/39 L 112/39 L 124/39 L Pulse Oximetry Oxygen Delivery Fraction of Inspired Oxygen 07/16/24 12:00 07/16/24 12:00 07/16/24 12:00 Temperature Pulse Rate 78 82 Respiratory Rate 25 H Blood Pressure Pulse Oximetry 100 Oxygen Delivery Mechanical Ventilation Fraction of Inspired Oxygen 100 100 07/16/24 12:00 07/16/24 12:35 07/16/24 14:00 Temperature 36.9 C Pulse Rate 83 78 79 Respiratory Rate 25 H Blood Pressure 124/39 L 136/72 Pulse Oximetry 100 100 Oxygen Delivery Mechanical Ventilation Fraction of Inspired Oxygen 80 07/16/24 14:00 07/16/24 14:00 07/16/24 14:26 Temperature 36.4 C L Pulse Rate 79 79 80 Respiratory Rate 27 H 21 H Blood Pressure 136/72 Pulse Oximetry 97 Oxygen Delivery Fraction of Inspired Oxygen 07/16/24 14:31 07/16/24 14:33 07/16/24 15:00 Temperature Pulse Rate 81 81 82 Respiratory Rate 20 Blood Pressure 127/51 L Pulse Oximetry 96 Oxygen Delivery Mechanical Ventilation Fraction of Inspired Oxygen 70 07/16/24 15:30 07/16/24 16:00 07/16/24 16:00 Temperature Pulse Rate 82 81 81 Respiratory Rate 30 H Blood Pressure 137/49 L 129/41 L Pulse Oximetry 92 Oxygen Delivery Mechanical Ventilation Fraction of Inspired Oxygen 70 07/16/24 16:00 07/16/24 16:00 07/16/24 16:00 Temperature 37.0 C Pulse Rate 80 81 Respiratory Rate 30 H Blood Pressure 129/41 L Pulse Oximetry 92 Oxygen Delivery Fraction of Inspired Oxygen 70 07/16/24 16:56 07/16/24 18:00 07/16/24 18:00 Temperature 37.4 C Pulse Rate 76 75 75 Respiratory Rate 28 H Blood Pressure 119/45 L Pulse Oximetry 97 94 Oxygen Delivery Mechanical Ventilation Fraction of Inspired Oxygen 70 07/16/24 18:00 07/16/24 20:00 07/16/24 20:00 Temperature Pulse Rate 75 73 Respiratory Rate 20 Blood Pressure 119/45 L Pulse Oximetry 96 Oxygen Delivery Mechanical Ventilation Fraction of Inspired Oxygen 70 70 07/16/24 20:00 07/16/24 20:03 07/16/24 20:34 Temperature 37.6 C H Pulse Rate 73 73 73 Respiratory Rate 24 H Blood Pressure 114/39 L 104/67 Pulse Oximetry 94 Oxygen Delivery Fraction of Inspired Oxygen 07/16/24 20:48 07/16/24 21:05 07/16/24 21:05 Temperature Pulse Rate 72 74 73 Respiratory Rate 20 Blood Pressure Pulse Oximetry 96 Oxygen Delivery Mechanical Ventilation Fraction of Inspired Oxygen 70 07/16/24 22:00 07/16/24 22:00 07/16/24 22:00 Temperature 37.6 C H Pulse Rate 71 71 71 Respiratory Rate 20 Blood Pressure 108/36 L 108/36 L Pulse Oximetry 100 Oxygen Delivery Fraction of Inspired Oxygen 07/16/24 22:00 07/17/24 00:00 07/17/24 00:00 Temperature Pulse Rate 74 73 Respiratory Rate Blood Pressure Pulse Oximetry 96 Oxygen Delivery Mechanical Ventilation Fraction of Inspired Oxygen 70 70 07/17/24 00:00 07/17/24 00:00 07/17/24 00:00 Temperature 37.4 C Pulse Rate 73 78 78 Respiratory Rate 20 24 H Blood Pressure 136/54 L Pulse Oximetry 96 91 Oxygen Delivery Mechanical Ventilation Fraction of Inspired Oxygen 70 07/17/24 00:00 07/17/24 01:30 07/17/24 02:00 Temperature Pulse Rate 71 76 75 Respiratory Rate 20 Blood Pressure 146/49 H Pulse Oximetry Oxygen Delivery Fraction of Inspired Oxygen 07/17/24 02:00 07/17/24 02:00 07/17/24 02:00 Temperature 37.9 C H Pulse Rate 73 75 75 Respiratory Rate 21 H Blood Pressure 136/49 L Pulse Oximetry 98 96 Oxygen Delivery Mechanical Ventilation Fraction of Inspired Oxygen 70 07/17/24 02:10 07/17/24 02:15 07/17/24 03:00 Temperature Pulse Rate 75 76 74 Respiratory Rate 20 Blood Pressure 143/42 H 132/50 L Pulse Oximetry Oxygen Delivery Fraction of Inspired Oxygen 07/17/24 03:30 07/17/24 04:00 07/17/24 04:00 Temperature Pulse Rate 74 73 Respiratory Rate 20 Blood Pressure 139/52 L Pulse Oximetry 96 Oxygen Delivery Mechanical Ventilation Fraction of Inspired Oxygen 70 70 07/17/24 04:00 07/17/24 04:00 07/17/24 04:00 Temperature 37.7 C H Pulse Rate 71 71 72 Respiratory Rate 17 Blood Pressure 121/46 L 121/46 L Pulse Oximetry 100 Oxygen Delivery Fraction of Inspired Oxygen 07/17/24 05:00 07/17/24 06:00 07/17/24 06:00 Temperature 37.5 C Pulse Rate 71 72 71 Respiratory Rate 23 H Blood Pressure 118/48 L Pulse Oximetry 100 93 Oxygen Delivery Mechanical Ventilation Fraction of Inspired Oxygen 70 07/17/24 06:00 07/17/24 06:00 07/17/24 08:00 Temperature Pulse Rate 76 72 72 Respiratory Rate Blood Pressure 118/48 L Pulse Oximetry Oxygen Delivery Fraction of Inspired Oxygen 07/17/24 08:00 07/17/24 08:00 07/17/24 08:00 Temperature 37.5 C Pulse Rate 72 72 Respiratory Rate 19 20 Blood Pressure 83/63 L Pulse Oximetry 91 92 Oxygen Delivery Mechanical Ventilation Fraction of Inspired Oxygen 60 60 07/17/24 08:01 07/17/24 08:16 07/17/24 08:27 Temperature Pulse Rate 72 72 71 Respiratory Rate Blood Pressure 83/63 L 96/51 L Pulse Oximetry 90 Oxygen Delivery Mechanical Ventilation Fraction of Inspired Oxygen 60 07/17/24 08:35 Temperature Pulse Rate 71 Respiratory Rate 21 H Blood Pressure Pulse Oximetry Oxygen Delivery Fraction of Inspired Oxygen Intake/Output Intake/Output: Intake & Output 07/14/24 07/15/24 07/16/24 07/17/24 23:59 23:59 23:59 23:59 Intake Total 1987 1060 1593.0 738.5 Output Total 999 1400 1229 50 Balance 988 -340 364.0 688.5 Meds/Results Medications: Active Medications Generic Name Dose Route Start Last Admin Trade Name Freq PRN Reason Stop Dose Admin Albuterol/Ipratropium 3 ml 06/29/24 02:00 07/17/24 08:33 Ipratropium 0.5 Mg/Albuterol Sulfate 2.5 Mg Ampul.Neb 3 Ml INHALATION 3 ml Q6HRT BARBARA Administration Alteplase, Recombinant 2 mg 07/16/24 10:24 07/16/24 14:10 Alteplase 2 Mg Vial (Cathflo) IV PUSH 2 mg ONCE PRN Administration Line Occlusion Amiodarone HCl 200 mg 07/18/24 08:00 Amiodarone Hcl 200 Mg Tablet PO DAILY@0800 [facility] Aspirin 81 mg 07/01/24 08:00 07/13/24 08:24 Aspirin 81 Mg Chewable Tablet PO 81 mg DAILY@0800 BARBARA Administration Atorvastatin Calcium 40 mg 06/29/24 09:00 07/17/24 08:01 Atorvastatin 40 Mg Tablet PO 40 mg DAILY BARBARA Administration Dextrose 12.5 gm 06/29/24 08:08 Dextrose 50% 25 Gm/50 Ml Syringe IV PUSH PRN PRN Hypoglycemia Protocol Epoetin Mauri-epbx 10,000 units 07/17/24 18:29 Epoetin Mauri-Epbx 10,000 Units/Ml Vial IV PUSH 07/17/24 18:30 ONCE ONE Fluconazole 100 mg 07/14/24 14:20 07/17/24 08:01 Fluconazole 100 Mg Tablet FEED TUBE 07/27/24 09:01 100 mg QAM BARBARA Administration Glucagon 1 mg 06/29/24 08:08 Glucagon For Inj 1 Mg Vial IM PRN PRN Hypoglycemia Protocol Glucose 15 gm 06/29/24 08:08 Glucose Oral Gel 15 Gm Of Glucse In 37.5 Gm Tube PO PRN PRN Hypoglycemia Protocol Heparin Sodium (Porcine) 5,000 units 07/07/24 11:24 Heparin Sodium 5,000 Units/Ml Vial IV PUSH PRN PRN aPTT less than 55 seconds Heparin Sodium (Porcine) 2,500 units 07/07/24 11:24 07/09/24 07:21 Heparin Sodium 5,000 Units/Ml Vial IV PUSH 2,500 units PRN PRN Administration aPTT 55 - 70 seconds Hydralazine HCl 10 mg 07/06/24 16:42 07/06/24 17:03 Hydralazine Hcl 20 Mg/Ml Vial IV PUSH 10 mg Q4H PRN Administration Blood Pressure - High Dextrose 1,000 mls @ 100 mls/hr 06/29/24 08:08 Dextrose 5% 1,000 Ml IVPB PRN PRN Hypoglycemia Protocol Heparin Sodium/Dextrose 25,000 units in 250 mls @ 0 mls/hr 07/07/24 11:25 07/10/24 08:52 Heparin Sodium/D5w 100 Units/Ml IV CONT 0 units/hr .Q0M BARBARA 0 mls/hr Titration Protocol Albumin Human 50 mls @ 999 mls/hr 07/15/24 10:24 Albutein IVPB 08/14/24 10:23 Q10M PRN HYPOTENSION Norepinephrine Bitartrate 8 mg in 250 mls @ 11.25 mls/hr 07/16/24 09:45 07/17/24 08:16 Levophed 8 Mg/D5w 250 Ml IV CONT 6 mcg/min .[id number] BARBARA 11.25 mls/hr Titration Protocol 6 MCG/MIN Insulin Aspart 3 - 6 units 06/29/24 12:00 07/17/24 07:35 Insulin Aspart (*Bkc) 100 Units/Ml SUB-Q Not Given Q6HR [facility] Protocol Insulin Glargine 12 units 07/15/24 21:00 07/16/24 20:51 Insulin Glargine (*Bkc) 100 Units/Ml SUB-Q 12 units HS [facility] Administration Levothyroxine Sodium 50 mcg 06/30/24 06:30 07/17/24 07:36 Levothyroxine Sodium 50 Mcg Tablet FEED TUBE 50 mcg DAILY@0630 [facility] Administration Multi-Ingred Cream/Lotion/Oil/Oint 1 applic 06/29/24 09:00 07/17/24 08:01 Mineral Oil/White Petrolatum Ointment EACH EYE 1 applic Q12HR BARBARA Administration Pantoprazole Sodium 40 mg 07/06/24 21:00 07/17/24 08:01 Pantoprazole Sodium Iv 40 Mg Vial IV PUSH 40 mg Q12HR BARBARA Administration Sodium Chloride 10 ml 06/29/24 14:00 07/17/24 07:35 Central Line Flush IV PUSH 10 ml Q8HR BARBARA Administration Sodium Chloride 10 ml 06/29/24 12:40 Central Line Flush IV PUSH PRN PRN with TPN bag changes Sodium Chloride 20 ml 06/29/24 12:40 Central Line Flush IV PUSH PRN PRN after blood draws Radiology Results: ITS Impressions Abdomen X-Ray 06/28/24 20:03 IMPRESSION: Nasogastric tube in good position and ready for immediate use. Abdomen Ultrasound 07/03/24 14:12 IMPRESSION: 1. Normal right upper quadrant ultrasound status post cholecystectomy. Renal Ultrasound 07/06/24 08:30 IMPRESSION: 1. No hydronephrosis in either kidney. Head CT 07/08/24 10:08 IMPRESSION: 1. No acute intracranial process. 2. 8 mm calcified extra-axial mass overlying the left parietal lobe most consistent with a meningioma. Chest/Abdomen/Pelvis CT 07/14/24 15:26 IMPRESSION: 1. Bilateral lower lobe pneumonia. 2. Small pleural effusions. 3. Severe emphysema. Central Venous Line 07/15/24 16:37 IMPRESSION: 1. Placement of a likely tunneled dual-lumen right internal jugular central venous catheter with distal tip at the caudal superior vena cava. See procedure note for further detail. Chest X-Ray 07/17/24 05:59 Impression: Bibasilar pulmonary edema versus pneumonia, left worse than right, probably mildly worsened from prior exam. Underlying COPD. Support tubes, as above. Labs Labs: Laboratory Results - last 24 hr 07/16/24 07/16/24 07/16/24 09:45 11:36 11:50 WBC 31.6 H RBC 2.59 L Hgb 7.6 L Hct 24.3 L MCV 93.8 MCH 29.3 MCHC 31.3 L RDW 18.1 H Plt Count 289 MPV 11.2 H Puncture Site Left radial ABG pH 7.206 L* ABG pCO2 67.1 H* ABG pO2 213.8 H ABG PO2/FiO2 Ratio 2.14 ABG HCO3 26.0 ABG O2 Saturation 99.2 ABG O2 Content 12.0 L ABG Base Excess -2.3 A-a Gradient 432.1 Oxyhemoglobin 98.4 Carboxyhemoglobin 0.7 Methemoglobin 0.3 Reduced Hemoglobin 0.6 Total Hemoglobin 8.3 L O2 Delivery Device Ventilator O2 Liters/Min Not Reportable Minute Volume Not Reportable Vent Rate 18 Vent Mode Cmv FiO2 100 Tidal Volume 480 PEEP 8 Peak Inspir Pressure Not Reportable Pressure Support Not Reportable Sodium 145 Potassium 4.5 Chloride 106 Carbon Dioxide 30 Anion Gap 9 BUN 173 H D Creatinine 3.75 H Estim Creat Clear Calc 11 Estimated GFR 12 L Glucose 146 H POC Capillary Glucose 114 H Calcium 8.8 Magnesium 2.6 H Total Bilirubin 0.5 AST 48 H ALT 23 Alkaline Phosphatase 151 H Total Protein 6.0 L Albumin 2.8 L 07/16/24 07/16/24 07/17/24 17:58 20:51 04:11 WBC 26.6 H RBC 2.45 L Hgb 7.4 L Hct 23.3 L MCV 95.1 MCH 30.2 MCHC 31.8 L RDW 18.4 H Plt Count 258 MPV 10.7 H Puncture Site ABG pH ABG pCO2 ABG pO2 ABG PO2/FiO2 Ratio ABG HCO3 ABG O2 Saturation ABG O2 Content ABG Base Excess A-a Gradient Oxyhemoglobin Carboxyhemoglobin Methemoglobin Reduced Hemoglobin Total Hemoglobin O2 Delivery Device O2 Liters/Min Minute Volume Vent Rate Vent Mode FiO2 Tidal Volume PEEP Peak Inspir Pressure Pressure Support Sodium 143 Potassium 4.7 Chloride 104 Carbon Dioxide 26 Anion Gap 13 H BUN 187 H D Creatinine 4.47 H Estim Creat Clear Calc 10 Estimated GFR 10 L Glucose 139 H POC Capillary Glucose 150 H 159 H Calcium 8.8 Magnesium 2.7 H Total Bilirubin 0.5 AST 35 ALT 12 Alkaline Phosphatase 126 Total Protein 6.0 L Albumin 3.0 L 07/17/24 05:04 WBC RBC Hgb Hct MCV MCH MCHC RDW Plt Count MPV Puncture Site Left radial ABG pH 7.329 L ABG pCO2 48.3 H ABG pO2 68.7 L ABG PO2/FiO2 Ratio 1.14 ABG HCO3 24.8 ABG O2 Saturation 92.4 L ABG O2 Content 10.6 L ABG Base Excess -1.2 A-a Gradient 306.0 Oxyhemoglobin 91.8 Carboxyhemoglobin 0.7 Methemoglobin 0.3 Reduced Hemoglobin 7.2 H Total Hemoglobin 8.1 L O2 Delivery Device Ventilator O2 Liters/Min Not Reportable Minute Volume Not Reportable Vent Rate 20 Vent Mode Cmv FiO2 60 Tidal Volume 480 PEEP 10 Peak Inspir Pressure Not Reportable Pressure Support Not Reportable Sodium Potassium Chloride Carbon Dioxide Anion Gap BUN Creatinine Estim Creat Clear Calc Estimated GFR Glucose POC Capillary Glucose Calcium Magnesium Total Bilirubin AST ALT Alkaline Phosphatase Total Protein Albumin
--- NOTE | 2024-07-17 10:17 | PM.PNNEP ---
Subjective Date/time seen: 07/17/24 10:17 Interval history: Follow-up for acute kidney injury/acute renal failure. Tolerating dialysis treatment at the time of my visit (seen on HD at 10:05AM); given events yesterday, family meeting being done at this time to determine ongoing plan of therapy as well as goals of care; Objective Data Vital Signs Vital Signs: Vital Signs Temp Pulse Resp BP Pulse Ox O2 Del Method FiO2 07/17/24 10:15 73 116/38 L 07/17/24 10:01 72 113/43 L 07/17/24 10:00 72 07/17/24 10:00 72 129/43 L 07/17/24 10:00 99.8 F H 72 20 113/43 L 99 07/17/24 09:46 70 104/38 L 07/17/24 09:45 99.7 F H 71 20 104/38 L 100 07/17/24 09:45 60 07/17/24 08:35 71 21 H 07/17/24 08:27 71 90 Mechanical Ventilation 60 07/17/24 08:16 72 96/51 L 07/17/24 08:01 72 83/63 L 07/17/24 08:00 72 07/17/24 08:00 99.5 F 72 20 83/63 L 92 07/17/24 08:00 60 07/17/24 08:00 72 19 91 Mechanical Ventilation 60 07/17/24 08:00 72 07/17/24 06:00 72 118/48 L 07/17/24 06:00 76 07/17/24 06:00 99.5 F 71 23 H 118/48 L 93 07/17/24 06:00 72 07/17/24 05:00 71 100 Mechanical Ventilation 70 07/17/24 04:00 72 121/46 L 07/17/24 04:00 71 07/17/24 04:00 99.9 F H 71 17 121/46 L 100 07/17/24 04:00 73 20 96 Mechanical Ventilation 70 07/17/24 04:00 70 07/17/24 03:30 74 139/52 L 07/17/24 03:00 74 132/50 L 07/17/24 02:15 76 143/42 H 07/17/24 02:10 75 20 07/17/24 02:00 75 07/17/24 02:00 100.3 F H 75 21 H 136/49 L 96 07/17/24 02:00 73 98 Mechanical Ventilation 70 07/17/24 02:00 75 20 07/17/24 01:30 76 146/49 H 07/17/24 00:00 71 07/17/24 00:00 78 07/17/24 00:00 99.3 F 78 24 H 136/54 L 91 07/17/24 00:00 73 20 96 Mechanical Ventilation 70 07/17/24 00:00 70 07/17/24 00:00 73 96 Mechanical Ventilation 70 07/16/24 22:00 74 07/16/24 22:00 99.7 F H 71 20 108/36 L 100 07/16/24 22:00 71 07/16/24 22:00 71 108/36 L 07/16/24 21:05 73 96 Mechanical Ventilation 70 07/16/24 21:05 74 20 07/16/24 20:48 72 07/16/24 20:34 99.7 F H 73 24 H 104/67 94 07/16/24 20:03 73 114/39 L 07/16/24 20:00 73 07/16/24 20:00 73 20 96 Mechanical Ventilation 70 07/16/24 20:00 70 07/16/24 18:00 75 119/45 L 07/16/24 18:00 75 07/16/24 18:00 99.4 F 75 28 H 119/45 L 94 07/16/24 16:56 76 97 Mechanical Ventilation 70 07/16/24 16:00 98.6 F 81 30 H 129/41 L 92 07/16/24 16:00 80 07/16/24 16:00 70 07/16/24 16:00 81 30 H 92 Mechanical Ventilation 70 07/16/24 16:00 81 129/41 L 07/16/24 15:30 82 137/49 L 07/16/24 15:00 82 127/51 L 07/16/24 14:33 81 20 07/16/24 14:31 81 96 Mechanical Ventilation 70 07/16/24 14:26 80 21 H 07/16/24 14:00 97.5 F L 79 27 H 136/72 97 07/16/24 14:00 79 07/16/24 14:00 79 136/72 07/16/24 12:35 78 100 Mechanical Ventilation 80 Intake/Output Intake/Output: Intake & Output 07/14/24 07/15/24 07/16/24 07/17/24 23:59 23:59 23:59 23:59 Intake Total 1987 1060 1593.0 860.4 Output Total 999 1400 1229 50 Balance 988 -340 364.0 810.4 Meds/Results Medications: Active Medications Generic Name Dose Route Start Last Admin Trade Name Freq PRN Reason Stop Dose Admin Albuterol/Ipratropium 3 ml 06/29/24 02:00 07/17/24 08:33 Ipratropium 0.5 Mg/Albuterol Sulfate 2.5 Mg Ampul.Neb 3 Ml INHALATION 3 ml Q6HRT BARBARA Administration Alteplase, Recombinant 2 mg 07/16/24 10:24 07/16/24 14:10 Alteplase 2 Mg Vial (Cathflo) IV PUSH 2 mg ONCE PRN Administration Line Occlusion Amiodarone HCl 200 mg 07/18/24 08:00 Amiodarone Hcl 200 Mg Tablet PO DAILY@0800 [facility] Aspirin 81 mg 07/01/24 08:00 07/13/24 08:24 Aspirin 81 Mg Chewable Tablet PO 81 mg DAILY@0800 [facility]BAR[facility] Administration Atorvastatin Calcium 40 mg 06/29/24 09:00 07/17/24 08:01 Atorvastatin 40 Mg Tablet PO 40 mg DAILY [facility] Administration Dextrose 12.5 gm 06/29/24 08:08 Dextrose 50% 25 Gm/50 Ml Syringe IV PUSH PRN PRN Hypoglycemia Protocol Epoetin Mauri-epbx 10,000 units 07/17/24 18:29 Epoetin Mauri-Epbx 10,000 Units/Ml Vial IV PUSH 07/17/24 18:30 ONCE ONE Fluconazole 100 mg 07/14/24 14:20 07/17/24 08:01 Fluconazole 100 Mg Tablet FEED TUBE 07/27/24 09:01 100 mg QAM BARBARA Administration Glucagon 1 mg 06/29/24 08:08 Glucagon For Inj 1 Mg Vial IM PRN PRN Hypoglycemia Protocol Glucose 15 gm 06/29/24 08:08 Glucose Oral Gel 15 Gm Of Glucse In 37.5 Gm Tube PO PRN PRN Hypoglycemia Protocol Heparin Sodium (Porcine) 5,000 units 07/07/24 11:24 Heparin Sodium 5,000 Units/Ml Vial IV PUSH PRN PRN aPTT less than 55 seconds Heparin Sodium (Porcine) 2,500 units 07/07/24 11:24 07/09/24 07:21 Heparin Sodium 5,000 Units/Ml Vial IV PUSH 2,500 units PRN PRN Administration aPTT 55 - 70 seconds Hydralazine HCl 10 mg 07/06/24 16:42 07/06/24 17:03 Hydralazine Hcl 20 Mg/Ml Vial IV PUSH 10 mg Q4H PRN Administration Blood Pressure - High Dextrose 1,000 mls @ 100 mls/hr 06/29/24 08:08 Dextrose 5% 1,000 Ml IVPB PRN PRN Hypoglycemia Protocol Heparin Sodium/Dextrose 25,000 units in 250 mls @ 0 mls/hr 07/07/24 11:25 07/10/24 08:52 Heparin Sodium/D5w 100 Units/Ml IV CONT 0 units/hr .Q0M BARBARA 0 mls/hr Titration Protocol Albumin Human 50 mls @ 999 mls/hr 07/15/24 10:24 07/17/24 11:00 Albutein IVPB 08/14/24 10:23 999 mls/hr Q10M PRN Administration HYPOTENSION Norepinephrine Bitartrate 8 mg in 250 mls @ 15 mls/hr 07/16/24 09:45 07/17/24 11:15 Levophed 8 Mg/D5w 250 Ml IV CONT 35 mcg/min .[id number] BARBARA 65.63 mls/hr Administration Protocol 8 MCG/MIN Vasopressin 100 units/ 100 mls @ 2.4 mls/hr 07/17/24 10:40 07/17/24 10:45 Dextrose IV CONT 0.04 units/min .[id number] BARBARA 2.4 mls/hr Administration Protocol 0.04 UNITS/MIN Insulin Aspart 3 - 6 units 06/29/24 12:00 07/17/24 07:35 Insulin Aspart (*Bkc) 100 Units/Ml SUB-Q Not Given Q6HR [facility] Protocol Insulin Glargine 12 units 07/15/24 21:00 07/16/24 20:51 Insulin Glargine (*Bkc) 100 Units/Ml SUB-Q 12 units HS [facility] Administration Levothyroxine Sodium 50 mcg 06/30/24 06:30 07/17/24 07:36 Levothyroxine Sodium 50 Mcg Tablet FEED TUBE 50 mcg DAILY@0630 [facility] Administration Multi-Ingred Cream/Lotion/Oil/Oint 1 applic 06/29/24 09:00 07/17/24 08:01 Mineral Oil/White Petrolatum Ointment EACH EYE 1 applic Q12HR [facility] Administration Pantoprazole Sodium 40 mg 07/06/24 21:00 07/17/24 08:01 Pantoprazole Sodium Iv 40 Mg Vial IV PUSH 40 mg Q12HR [facility]BAR[facility] Administration Sodium Chloride 10 ml 06/29/24 14:00 07/17/24 07:35 Central Line Flush IV PUSH 10 ml Q8HR BARBARA Administration Sodium Chloride 10 ml 06/29/24 12:40 Central Line Flush IV PUSH PRN PRN with TPN bag changes Sodium Chloride 20 ml 06/29/24 12:40 Central Line Flush IV PUSH PRN PRN after blood draws Radiology Results: ITS Impressions Abdomen X-Ray 06/28/24 20:03 IMPRESSION: Nasogastric tube in good position and ready for immediate use. Abdomen Ultrasound 07/03/24 14:12 IMPRESSION: 1. Normal right upper quadrant ultrasound status post cholecystectomy. Renal Ultrasound 07/06/24 08:30 IMPRESSION: 1. No hydronephrosis in either kidney. Head CT 07/08/24 10:08 IMPRESSION: 1. No acute intracranial process. 2. 8 mm calcified extra-axial mass overlying the left parietal lobe most consistent with a meningioma. Chest/Abdomen/Pelvis CT 07/14/24 15:26 IMPRESSION: 1. Bilateral lower lobe pneumonia. 2. Small pleural effusions. 3. Severe emphysema. Central Venous Line 07/15/24 16:37 IMPRESSION: 1. Placement of a likely tunneled dual-lumen right internal jugular central venous catheter with distal tip at the caudal superior vena cava. See procedure note for further detail. Chest X-Ray 07/17/24 05:59 Impression: Bibasilar pulmonary edema versus pneumonia, left worse than right, probably mildly worsened from prior exam. Underlying COPD. Support tubes, as above. Labs Labs: Laboratory Tests 07/17/24 04:11 07/17/24 04:11 Calcium 8.8 Magnesium 2.7 H Total Bilirubin 0.5 AST 35 ALT 12 Alkaline Phosphatase 126 Total Protein 6.0 L Albumin 3.0 L
[2024-07-17] MEDS: ALBUMIN HUMAN 25% 12.5 GM/50ML 50 ML IVPB ×2 (10:33→11:00)
[2024-07-17] MEDS: VASOPRESSIN INJ 100 UNITS in DEXTROSE 5% 95 ML IV CONT (10:45)
--- NOTE | 2024-07-17 11:04 | PC.NURSE ---
Addendum entered by Kriss Hartmann RN 07/17/24 11:12: Order received to increase Levophed to 35mg/ml Original Note: Pt decompensating during dialysis. Order from Dr. English to max out Levophed, give Albumin, and start Vasopressin. Notify MD if pressures continue to drop. SpO2 also started to drop. New order to increased FiO2 to 80%. FiO2 increased by RN and RT was notified
[2024-07-17] MEDS: NOREPINEPHRINE 8 MG/D5W 250 ML 8 MG/250 ML BAG 65.63 MG IV CONT (11:15)
[2024-07-17] MEDS: HEPARIN SODIUM 1,000 UNITS/ML VIAL 5000 UNITS (11:35)
--- NOTE | 2024-07-17 11:37 | WPDPN ---
Progress Note: A&P Assessment and Plan (1) Status post tracheostomy: Code(s): Z93.0 - Tracheostomy status Status: Acute Plan 78 year old Female with respiratory failure intubated on 06/28/2024 admitted in ICU s/p tracheostomy on 07/13/2024 and critically ill with multiorgan failure i spoke with Rl Blackmon and he told me that the family choose to go for option of palliative care Based on the above ,no tracheostomy change is needed at this point unless the code status changes or the option for palliative care changes. Time Spent With Patient Time with patient: less than 15 minutes Subjective Date/time seen: 07/17/24 11:37 Review of Systems Review of Systems: ROS unobtainable: Yes unobtainable due to endotracheal tube, unobtainable due to medical condition and unobtainable due to mental status ENT: Reports as per HPI Exam Narrative: trach in place ,no signs of localized infection or bleeding around the trach site HENMT: Other: trach in place Pt is trached on mechanical ventilation Objective Data Vital Signs Vital Signs: Vital Signs - 24 hr 07/16/24 12:00 07/16/24 12:00 07/16/24 12:00 Temperature Pulse Rate 82 78 82 Respiratory Rate 25 H Blood Pressure 124/39 L Pulse Oximetry 100 Oxygen Delivery Mechanical Ventilation Fraction of Inspired Oxygen 100 07/16/24 12:00 07/16/24 12:00 07/16/24 12:35 Temperature 36.9 C Pulse Rate 83 78 Respiratory Rate 25 H Blood Pressure 124/39 L Pulse Oximetry 100 100 Oxygen Delivery Mechanical Ventilation Fraction of Inspired Oxygen 100 80 07/16/24 14:00 07/16/24 14:00 07/16/24 14:00 Temperature 36.4 C L Pulse Rate 79 79 79 Respiratory Rate 27 H Blood Pressure 136/72 136/72 Pulse Oximetry 97 Oxygen Delivery Fraction of Inspired Oxygen 07/16/24 14:26 07/16/24 14:31 07/16/24 14:33 Temperature Pulse Rate 80 81 81 Respiratory Rate 21 H 20 Blood Pressure Pulse Oximetry 96 Oxygen Delivery Mechanical Ventilation Fraction of Inspired Oxygen 70 07/16/24 15:00 07/16/24 15:30 07/16/24 16:00 Temperature Pulse Rate 82 82 81 Respiratory Rate Blood Pressure 127/51 L 137/49 L 129/41 L Pulse Oximetry Oxygen Delivery Fraction of Inspired Oxygen 07/16/24 16:00 07/16/24 16:00 07/16/24 16:00 Temperature Pulse Rate 81 80 Respiratory Rate 30 H Blood Pressure Pulse Oximetry 92 Oxygen Delivery Mechanical Ventilation Fraction of Inspired Oxygen 70 70 07/16/24 16:00 07/16/24 16:56 07/16/24 18:00 Temperature 37.0 C 37.4 C Pulse Rate 81 76 75 Respiratory Rate 30 H 28 H Blood Pressure 129/41 L 119/45 L Pulse Oximetry 92 97 94 Oxygen Delivery Mechanical Ventilation Fraction of Inspired Oxygen 70 07/16/24 18:00 07/16/24 18:00 07/16/24 20:00 Temperature Pulse Rate 75 75 Respiratory Rate Blood Pressure 119/45 L Pulse Oximetry Oxygen Delivery Fraction of Inspired Oxygen 70 07/16/24 20:00 07/16/24 20:00 07/16/24 20:03 Temperature Pulse Rate 73 73 73 Respiratory Rate 20 Blood Pressure 114/39 L Pulse Oximetry 96 Oxygen Delivery Mechanical Ventilation Fraction of Inspired Oxygen 70 07/16/24 20:34 07/16/24 20:48 07/16/24 21:05 Temperature 37.6 C H Pulse Rate 73 72 74 Respiratory Rate 24 H 20 Blood Pressure 104/67 Pulse Oximetry 94 Oxygen Delivery Fraction of Inspired Oxygen 07/16/24 21:05 07/16/24 22:00 07/16/24 22:00 Temperature Pulse Rate 73 71 71 Respiratory Rate Blood Pressure 108/36 L Pulse Oximetry 96 Oxygen Delivery Mechanical Ventilation Fraction of Inspired Oxygen 70 07/16/24 22:00 07/16/24 22:00 07/17/24 00:00 Temperature 37.6 C H Pulse Rate 71 74 73 Respiratory Rate 20 Blood Pressure 108/36 L Pulse Oximetry 100 96 Oxygen Delivery Mechanical Ventilation Fraction of Inspired Oxygen 70 07/17/24 00:00 07/17/24 00:00 07/17/24 00:00 Temperature 37.4 C Pulse Rate 73 78 Respiratory Rate 20 24 H Blood Pressure 136/54 L Pulse Oximetry 96 91 Oxygen Delivery Mechanical Ventilation Fraction of Inspired Oxygen 70 70 07/17/24 00:00 07/17/24 00:00 07/17/24 01:30 Temperature Pulse Rate 78 71 76 Respiratory Rate Blood Pressure 146/49 H Pulse Oximetry Oxygen Delivery Fraction of Inspired Oxygen 07/17/24 02:00 07/17/24 02:00 07/17/24 02:00 Temperature 37.9 C H Pulse Rate 75 73 75 Respiratory Rate 20 21 H Blood Pressure 136/49 L Pulse Oximetry 98 96 Oxygen Delivery Mechanical Ventilation Fraction of Inspired Oxygen 70 07/17/24 02:00 07/17/24 02:10 07/17/24 02:15 Temperature Pulse Rate 75 75 76 Respiratory Rate 20 Blood Pressure 143/42 H Pulse Oximetry Oxygen Delivery Fraction of Inspired Oxygen 07/17/24 03:00 07/17/24 03:30 07/17/24 04:00 Temperature Pulse Rate 74 74 Respiratory Rate Blood Pressure 132/50 L 139/52 L Pulse Oximetry Oxygen Delivery Fraction of Inspired Oxygen 70 07/17/24 04:00 07/17/24 04:00 07/17/24 04:00 Temperature 37.7 C H Pulse Rate 73 71 71 Respiratory Rate 20 17 Blood Pressure 121/46 L Pulse Oximetry 96 100 Oxygen Delivery Mechanical Ventilation Fraction of Inspired Oxygen 70 07/17/24 04:00 07/17/24 05:00 07/17/24 06:00 Temperature Pulse Rate 72 71 72 Respiratory Rate Blood Pressure 121/46 L Pulse Oximetry 100 Oxygen Delivery Mechanical Ventilation Fraction of Inspired Oxygen 70 07/17/24 06:00 07/17/24 06:00 07/17/24 06:00 Temperature 37.5 C Pulse Rate 71 76 72 Respiratory Rate 23 H Blood Pressure 118/48 L 118/48 L Pulse Oximetry 93 Oxygen Delivery Fraction of Inspired Oxygen 07/17/24 08:00 07/17/24 08:00 07/17/24 08:00 Temperature Pulse Rate 72 72 Respiratory Rate 19 Blood Pressure Pulse Oximetry 91 Oxygen Delivery Mechanical Ventilation Fraction of Inspired Oxygen 60 60 07/17/24 08:00 07/17/24 08:01 07/17/24 08:16 Temperature 37.5 C Pulse Rate 72 72 72 Respiratory Rate 20 Blood Pressure 83/63 L 83/63 L 96/51 L Pulse Oximetry 92 Oxygen Delivery Fraction of Inspired Oxygen 07/17/24 08:27 07/17/24 08:35 07/17/24 09:45 Temperature Pulse Rate 71 71 Respiratory Rate 21 H Blood Pressure Pulse Oximetry 90 Oxygen Delivery Mechanical Ventilation Fraction of Inspired Oxygen 60 60 07/17/24 09:45 07/17/24 09:46 07/17/24 10:00 Temperature 37.6 C H 37.7 C H Pulse Rate 71 70 72 Respiratory Rate 20 20 Blood Pressure 104/38 L 104/38 L 113/43 L Pulse Oximetry 100 99 Oxygen Delivery Fraction of Inspired Oxygen 07/17/24 10:00 07/17/24 10:01 07/17/24 10:15 Temperature Pulse Rate 72 72 73 Respiratory Rate Blood Pressure 129/43 L 113/43 L 116/38 L Pulse Oximetry Oxygen Delivery Fraction of Inspired Oxygen 07/17/24 10:30 07/17/24 10:30 07/17/24 10:31 Temperature Pulse Rate 73 72 Respiratory Rate Blood Pressure 87/75 L 87/75 L 77/54 L Pulse Oximetry Oxygen Delivery Fraction of Inspired Oxygen 07/17/24 10:33 07/17/24 10:33 07/17/24 10:36 Temperature Pulse Rate 70 69 Respiratory Rate Blood Pressure 67/48 L 67/48 L 78/24 L Pulse Oximetry Oxygen Delivery Fraction of Inspired Oxygen 07/17/24 10:45 07/17/24 10:45 07/17/24 10:45 Temperature Pulse Rate 73 73 73 Respiratory Rate Blood Pressure 104/58 L 104/58 L 104/58 L Pulse Oximetry Oxygen Delivery Fraction of Inspired Oxygen 07/17/24 11:00 07/17/24 11:00 07/17/24 11:05 Temperature Pulse Rate 70 75 76 Respiratory Rate Blood Pressure 130/49 L 130/49 L Pulse Oximetry 93 Oxygen Delivery Mechanical Ventilation Fraction of Inspired Oxygen 80 07/17/24 11:15 07/17/24 11:15 07/17/24 11:15 Temperature Pulse Rate 76 74 74 Respiratory Rate Blood Pressure 109/45 L 116/44 L 116/44 L Pulse Oximetry Oxygen Delivery Fraction of Inspired Oxygen Intake/Output Intake/Output: Intake & Output 07/14/24 07/15/24 07/16/24 07/17/24 23:59 23:59 23:59 23:59 Intake Total 1987 1060 1593.0 860.4 Output Total 999 1400 1229 50 Balance 988 -340 364.0 810.4 Meds/Results Medications: Active Medications Generic Name Dose Route Start Last Admin Trade Name Freq PRN Reason Stop Dose Admin Albuterol/Ipratropium 3 ml 06/29/24 02:00 07/17/24 08:33 Ipratropium 0.5 Mg/Albuterol Sulfate 2.5 Mg Ampul.Neb 3 Ml INHALATION 3 ml Q6HRT BARBARA Administration Alteplase, Recombinant 2 mg 07/16/24 10:24 07/16/24 14:10 Alteplase 2 Mg Vial (Cathflo) IV PUSH 2 mg ONCE PRN Administration Line Occlusion Amiodarone HCl 200 mg 07/18/24 08:00 Amiodarone Hcl 200 Mg Tablet PO DAILY@0800 [facility] Aspirin 81 mg 07/01/24 08:00 07/13/24 08:24 Aspirin 81 Mg Chewable Tablet PO 81 mg DAILY@0800 [facility] Administration Atorvastatin Calcium 40 mg 06/29/24 09:00 07/17/24 08:01 Atorvastatin 40 Mg Tablet PO 40 mg DAILY [facility] Administration Dextrose 12.5 gm 06/29/24 08:08 Dextrose 50% 25 Gm/50 Ml Syringe IV PUSH PRN PRN Hypoglycemia Protocol Epoetin Muari-epbx 10,000 units 07/17/24 18:29 Epoetin Mauri-Epbx 10,000 Units/Ml Vial IV PUSH 07/17/24 18:30 ONCE ONE Fluconazole 100 mg 07/14/24 14:20 07/17/24 08:01 Fluconazole 100 Mg Tablet FEED TUBE 07/27/24 09:01 100 mg QAM BARBARA Administration Glucagon 1 mg 06/29/24 08:08 Glucagon For Inj 1 Mg Vial IM PRN PRN Hypoglycemia Protocol Glucose 15 gm 06/29/24 08:08 Glucose Oral Gel 15 Gm Of Glucse In 37.5 Gm Tube PO PRN PRN Hypoglycemia Protocol Heparin Sodium (Porcine) 5,000 units 07/07/24 11:24 Heparin Sodium 5,000 Units/Ml Vial IV PUSH PRN PRN aPTT less than 55 seconds Heparin Sodium (Porcine) 2,500 units 07/07/24 11:24 07/09/24 07:21 Heparin Sodium 5,000 Units/Ml Vial IV PUSH 2,500 units PRN PRN Administration aPTT 55 - 70 seconds Hydralazine HCl 10 mg 07/06/24 16:42 07/06/24 17:03 Hydralazine Hcl 20 Mg/Ml Vial IV PUSH 10 mg Q4H PRN Administration Blood Pressure - High Dextrose 1,000 mls @ 100 mls/hr 06/29/24 08:08 Dextrose 5% 1,000 Ml IVPB PRN PRN Hypoglycemia Protocol Heparin Sodium/Dextrose 25,000 units in 250 mls @ 0 mls/hr 07/07/24 11:25 07/10/24 08:52 Heparin Sodium/D5w 100 Units/Ml IV CONT 0 units/hr .Q0M BARBARA 0 mls/hr Titration Protocol Albumin Human 50 mls @ 999 mls/hr 07/15/24 10:24 07/17/24 11:00 Albutein IVPB 08/14/24 10:23 999 mls/hr Q10M PRN Administration HYPOTENSION Norepinephrine Bitartrate 8 mg in 250 mls @ 15 mls/hr 07/16/24 09:45 07/17/24 11:15 Levophed 8 Mg/D5w 250 Ml IV CONT 35 mcg/min .[id number] BARBARA 65.63 mls/hr Administration Protocol 8 MCG/MIN Vasopressin 100 units/ 100 mls @ 2.4 mls/hr 07/17/24 10:40 07/17/24 10:45 Dextrose IV CONT 0.04 units/min .[id number] BARBARA 2.4 mls/hr Administration Protocol 0.04 UNITS/MIN Albumin Human 50 mls @ 50 mls/hr 07/17/24 11:08 Albutein IVPB 07/17/24 12:07 ONCE ONE Insulin Aspart 3 - 6 units 06/29/24 12:00 07/17/24 07:35 Insulin Aspart (*Bkc) 100 Units/Ml SUB-Q Not Given Q6HR [facility] Protocol Insulin Glargine 12 units 07/15/24 21:00 07/16/24 20:51 Insulin Glargine (*Bkc) 100 Units/Ml SUB-Q 12 units HS [facility] Administration Levothyroxine Sodium 50 mcg 06/30/24 06:30 07/17/24 07:36 Levothyroxine Sodium 50 Mcg Tablet FEED TUBE 50 mcg DAILY@0630 [facility] Administration Multi-Ingred Cream/Lotion/Oil/Oint 1 applic 06/29/24 09:00 07/17/24 08:01 Mineral Oil/White Petrolatum Ointment EACH EYE 1 applic Q12HR [facility] Administration Pantoprazole Sodium 40 mg 07/06/24 21:00 07/17/24 08:01 Pantoprazole Sodium Iv 40 Mg Vial IV PUSH 40 mg Q12HR [facility] Administration Sodium Chloride 10 ml 06/29/24 14:00 07/17/24 07:35 Central Line Flush IV PUSH 10 ml Q8HR [facility] Administration Sodium Chloride 10 ml 06/29/24 12:40 Central Line Flush IV PUSH PRN PRN with TPN bag changes Sodium Chloride 20 ml 06/29/24 12:40 Central Line Flush IV PUSH PRN PRN after blood draws Radiology Results: ITS Impressions Abdomen X-Ray 06/28/24 20:03 IMPRESSION: Nasogastric tube in good position and ready for immediate use. Abdomen Ultrasound 07/03/24 14:12 IMPRESSION: 1. Normal right upper quadrant ultrasound status post cholecystectomy. Renal Ultrasound 07/06/24 08:30 IMPRESSION: 1. No hydronephrosis in either kidney. Head CT 07/08/24 10:08 IMPRESSION: 1. No acute intracranial process. 2. 8 mm calcified extra-axial mass overlying the left parietal lobe most consistent with a meningioma. Chest/Abdomen/Pelvis CT 07/14/24 15:26 IMPRESSION: 1. Bilateral lower lobe pneumonia. 2. Small pleural effusions. 3. Severe emphysema. Central Venous Line 07/15/24 16:37 IMPRESSION: 1. Placement of a likely tunneled dual-lumen right internal jugular central venous catheter with distal tip at the caudal superior vena cava. See procedure note for further detail. Chest X-Ray 07/17/24 05:59 Impression: Bibasilar pulmonary edema versus pneumonia, left worse than right, probably mildly worsened from prior exam. Underlying COPD. Support tubes, as above. Labs Labs: Laboratory Results - last 24 hr 07/16/24 07/16/24 07/16/24 11:36 11:50 17:58 WBC 31.6 H RBC 2.59 L Hgb 7.6 L Hct 24.3 L MCV 93.8 MCH 29.3 MCHC 31.3 L RDW 18.1 H Plt Count 289 MPV 11.2 H Puncture Site ABG pH ABG pCO2 ABG pO2 ABG PO2/FiO2 Ratio ABG HCO3 ABG O2 Saturation ABG O2 Content ABG Base Excess A-a Gradient Oxyhemoglobin Carboxyhemoglobin Methemoglobin Reduced Hemoglobin Total Hemoglobin O2 Delivery Device O2 Liters/Min Minute Volume Vent Rate Vent Mode FiO2 Tidal Volume PEEP Peak Inspir Pressure Pressure Support Sodium 145 Potassium 4.5 Chloride 106 Carbon Dioxide 30 Anion Gap 9 BUN 173 H D Creatinine 3.75 H Estim Creat Clear Calc 11 Estimated GFR 12 L Glucose 146 H POC Capillary Glucose 114 H 150 H Calcium 8.8 Magnesium 2.6 H Total Bilirubin 0.5 AST 48 H ALT 23 Alkaline Phosphatase 151 H Total Protein 6.0 L Albumin 2.8 L 07/16/24 07/17/24 07/17/24 20:51 04:11 05:04 WBC 26.6 H RBC 2.45 L Hgb 7.4 L Hct 23.3 L MCV 95.1 MCH 30.2 MCHC 31.8 L RDW 18.4 H Plt Count 258 MPV 10.7 H Puncture Site Left radial ABG pH 7.329 L ABG pCO2 48.3 H ABG pO2 68.7 L ABG PO2/FiO2 Ratio 1.14 ABG HCO3 24.8 ABG O2 Saturation 92.4 L ABG O2 Content 10.6 L ABG Base Excess -1.2 A-a Gradient 306.0 Oxyhemoglobin 91.8 Carboxyhemoglobin 0.7 Methemoglobin 0.3 Reduced Hemoglobin 7.2 H Total Hemoglobin 8.1 L O2 Delivery Device Ventilator O2 Liters/Min Not Reportable Minute Volume Not Reportable Vent Rate 20 Vent Mode Cmv FiO2 60 Tidal Volume 480 PEEP 10 Peak Inspir Pressure Not Reportable Pressure Support Not Reportable Sodium 143 Potassium 4.7 Chloride 104 Carbon Dioxide 26 Anion Gap 13 H BUN 187 H D Creatinine 4.47 H Estim Creat Clear Calc 10 Estimated GFR 10 L Glucose 139 H POC Capillary Glucose 159 H Calcium 8.8 Magnesium 2.7 H Total Bilirubin 0.5 AST 35 ALT 12 Alkaline Phosphatase 126 Total Protein 6.0 L Albumin 3.0 L
--- NOTE | 2024-07-17 11:52 | PM.EVENT ---
Event Note Event Note Event Note: Patient was started on dialysis again and few minutes later patient had drop in her blood pressure requiring significant increase in her Levophed. Vasopressin was also added. Patient was also given 25% albumin. FiO2 was increased. I met with patient's , 2 daughters, son and other family members in conference room in presence of patient's nurse Kriss. I updated them with patient's current condition, events from yesterday, could treatment plan, patient being unable to tolerate dialysis. expected prognosis and different potential outcomes including potential transfer to tertiary facility for CRRT. I explained them the patient is overall critically ill with poor prognosis as she has multiorgan failure. Even if she survives she will have a poor quality of life. I answered all their questions The family has decided, in accordance with pt's wishes, to discontinue all medical therapy including dialysis and institute comfort measures only. I have explained them that I I will use opioids, anxiolytics and other agents on as needed basis to promote comfort and discontinue all medical therapy, lab testing and invasive monitoring. Patient will eventually . They verbalized understanding and agreed to proceed. Decision was made to discontinue dialysis at this time, once the dialysis discontinued family will come in and see patient and after that proceed with comfort care.
[2024-07-17] MEDS: MORPHINE SULFATE INJ (*CRX) 10 MG/ML AMP 5 MG IV PUSH (13:22)
[2024-07-17] MEDS: LORazepam INJ (*CRX) 2 MG/ML VIAL IV PUSH (13:22)
--- NOTE | 2024-07-17 13:53 | PCRCNOTE ---
pt ventilator placed on standby, pt placed on coolmist humidifer via trach collar.
--- NOTE | 2024-07-18 09:35 | PM.DDS ---
Discharge Summary Date and Time Date of : 07/17/24 Time of : 13:56 Provider Pronounced By: 2 RNs Name of First RN That Pronounced: Kriss Durbin Name of Second RN That Pronounced: Shalini Mijares Probable Cause of Probable Cause of : Respiratory failure Summary Hospital Course: 78-year-old female with past medical history of severe COPD and chronic hypoxic hypercapnic respiratory failure, diastolic dysfunction and hypothyroidism was admitted on 06/28/24 with respiratory distress. She was intubated for respiratory failure.. She was diagnosed with COPD exacerbation and pneumonia treated with Rocephin doxycycline and culture sent. Patient also had elevated troponin secondary to discuss matter ischemic. Patient was seen by Cardiology and patient was started on heparin infusion for NSTEMI. Patient also developed acute kidney injury and was evaluated by Nephrology. During the hospitalization patient developed narrow complex tachycardia requiring adenosine administration. Post that patient was in AFib with RVR and was treated with amiodarone infusion. Patient also developed sepsis and shock requiring vasopressor. Patient also had drop in hemoglobin with positive Hemoccult and anticoagulation was discontinued. Patient also received bronchodilators and steroids. Despite multiple tense patient failed to wean from the ventilator. After discussion with the family decision was made to proceed with tracheostomy and PEG tube placement. Patient had tracheostomy done on 07/13 and PEG tube on 07/10 peer patient's kidney function continued to deteriorate. Patient also during this time recurrence of fever and worsening of pneumonia and was restarted on antibiotics. Blood Cultures remain negative. A tunneled dialysis catheter was placed on07/15. On 07/16 patient had a PEA arrest on her phos dialysis session. Referred to the code blue note for additional details. Patient dropped her heart rate blood pressure and oxygen saturation 10 minutes into her dialysis session and was resuscitated. Patient had 3 brief cardiac arrest at that time. Dialysis was discontinue. I had meeting with patient's and daughter and and we discussed goals of care and code status. Next day another attempt dialysis was made and on dialysis patient had increased vasopressor requirement increased FiO2 requirement P I had again meeting with patient's , 2 daughters, son and other family members. I updated them with patient's current condition, events from the day, current treatment plan, patient being unable to tolerate dialysis. I also discussed expected prognosis and different potential outcomes including potential transfer to tertiary facility for CRRT. I explained them the patient is overall critically ill with poor prognosis as she has multiorgan failure. Even if she survives she will have a poor quality of life. I answered all their questions The family at that decided, in accordance with pt's wishes, to discontinue all medical therapy including dialysis and institute comfort measures only. I Explained to them I will use opioids, anxiolytics and other agents on as needed basis to promote comfort and discontinue all medical therapy, lab testing and invasive monitoring. Patient will eventually . They verbalized understanding and agreed to proceed. Decision was made to discontinue dialysis at this time, once the dialysis discontinued family will come in and see patient and after that proceed with comfort care. Patient and was pronounced at 1:56 p.m.. Patient's family was at bedside. Additional Data Confirmation of as documented by pronouncing clinician: Pupillary Reflex, Palpable Pulses, Response to Stimuli, Heart Tones and Breath Sounds Name of Provider Notified: Dr. Rl English Time Provider Notified: 13:56 Provider Requests Autopsy: No Family Requests Autopsy: No [employer] Notified: Yes Date [facility] Notified of : 07/17/24 Time [facility] Notified of : 14:16
== END 2024-07-17 13:56 | disposition expired | DRG 4 ==
LOC: ANHED 19:19 → ANHICU 20:35
PROVIDERS: Internal Medicine; Internal Medicine Gastroenterology; Internal Medicine Nephrology; Otolaryngology Otolaryngology/Facial Plastic Surgery; Physician Assistant; Surgery; Admitting Provider Internal Medicine; Emergency Provider Emergency Medicine; PCP Emergency Medicine; Visit Provider Internal Medicine
PROC: 0DH63UZ Insertion of Feeding Device into Stomach, Percutaneous Approach (ICD-10-PCS; CPT 43246; principal; 2024-07-10 14:15)
PROC: 0B110F4 Bypass Trachea to Cutaneous with Tracheostomy Device, Open Approach (ICD-10-PCS; principal; 2024-07-13 07:30)
PROC: 0JH63XZ Insertion of Tunneled Vascular Access Device into Chest Subcutaneous Tissue and Fascia, Percutaneous Approach (ICD-10-PCS; CPT 36908; principal; 2024-07-15 13:30)
DX: J96.21 Acute and chronic respiratory failure with hypoxia (principal); I21.4 Non-ST elevation (NSTEMI) myocardial infarction; J18.9 Pneumonia, unspecified organism; R65.21 Severe sepsis with septic shock; A41.9 Sepsis, unspecified organism; J44.1 Chronic obstructive pulmonary disease with (acute) exacerbation; N17.9 Acute kidney failure, unspecified; G93.40 Encephalopathy, unspecified; B37.49 Other urogenital candidiasis; Z87.891 Personal history of nicotine dependence; Z99.81 Dependence on supplemental oxygen; G47.33 Obstructive sleep apnea (adult) (pediatric); E03.9 Hypothyroidism, unspecified; J96.22 Acute and chronic respiratory failure with hypercapnia; E87.6 Hypokalemia; E78.5 Hyperlipidemia, unspecified; E87.5 Hyperkalemia; D64.9 Anemia, unspecified; R74.8 Abnormal levels of other serum enzymes; I46.9 Cardiac arrest, cause unspecified; I27.20 Pulmonary hypertension, unspecified; I51.89 Other ill-defined heart diseases; Z20.822 Contact with and (suspected) exposure to COVID-19; Z79.82 Long term (current) use of aspirin; Z95.5 Presence of coronary angioplasty implant and graft; Z79.899 Other long term (current) drug therapy
CPT/HCPCS: 31500; 36415; 36430; 36569; 36600; 43246; 70450; 71045; 71250; 74176; 76705; 76775; 77001; 80048; 80053; 80074; 80202; 81001; 81050; 82088; 82140; 82274; 82375; 82436; 82533; 82550; 82570; 82607; 82746; 82805; 82948; 83050; 83540; 83550; 83605; 83735; 83874; 83880; 83930; 83935; 84100; 84133; 84145; 84156; 84244; 84300; 84443; 84478; 84484; 84540; 85014; 85018; 85025; 85027; 85610; 85730; 85999; 86706; 86850; 86900; 86901; 86923; 87040; 87070; 87086; 87205; 87340; 87637; 87641; 92950; 93005; 94002; 94003; 94640; 96374; 96375; 99291; A9270; C1750; C1751; C8929; G0257; J0153; J0171; J0282; J0330; J0360; J0461; J0650; J0690; J0692; J0696; J1644; J1650; J1815; J2003; J2004; J2060; J2250; J2270; J2371; J2470; J2704; J2919; J2997; J3010; J3370; J3420; J7030; J7040; J7050; J7060; J7120; P9016; P9047; Q5105; Q9957